=== PATIENT | female | born 1950 | race Caucasian/White ===

== ENCOUNTER 2022-09-07 18:18 | Outpatient (RCR) | payer MEDICARE, OTHER, SELFPAY | END 2022-10-01 23:59 | disposition home or self-care (01) | LOC: MM 18:18 | PROVIDERS: PCP Internal Medicine; Visit Provider Internal Medicine | DX: Z51.81 Encounter for therapeutic drug level monitoring (principal); Z79.01 Long term (current) use of anticoagulants ==

== ENCOUNTER 2022-09-29 11:39 | Outpatient (OUT) | payer MEDICARE, OTHER, SELFPAY ==
--- NOTE | 2022-09-29 11:40 | XR_ITS ---
[address] [address] Patient Name: DEYVI BROTHERS MRN: [id number] date: 1950 Sex: F Assigned Patient Location: [facility] Current Patient Location: [facility] Accession/Order Number: [id number] Exam Date: 09/29/2022 11:40 Report Date: 09/29/2022 20:27 At the request of: RAY CHERY Procedure: XR foot PHILL min 3V EXAMINATION: XR foot PHILL min 3V HISTORY: BILATERAL FOOT PAIN COMPARISON: 11/06/2020 FINDINGS: RIGHT FINDINGS: BONES: No acute fracture or dislocation. Fusion the first metatarsal-phalangeal joint with a dorsal plate and screws. Moderate diffuse degenerative change with joint space narrowing marginal osteophyte formation calcaneal enthesopathy. No mechanical failure SOFT TISSUES: Negative. No visible soft tissue swelling. OTHER: Negative. LEFT FINDINGS: BONES: No acute fracture or dislocation. First metatarsal-phalangeal joint arthroplasty with bony remodeling of the first metatarsal head. Moderate diffuse degenerative change with joint space narrowing marginal osteophyte formation calcaneal enthesopathy SOFT TISSUES: Negative. No visible soft tissue swelling. OTHER: Negative. IMPRESSION: RIGHT CONCLUSION: Moderate degenerative changes with first metatarsal-phalangeal joint fusion LEFT CONCLUSION: Moderate degenerative changes with first metatarsal-phalangeal joint arthroplasty Electronically authenticated by: VENANCIO SAUCEDO Date: 09/29/2022 20:27
== END 2022-09-29 11:40 | disposition home or self-care (01) ==
LOC: RAD 11:39
PROVIDERS: PCP Internal Medicine; Visit Provider Podiatrist Foot & Ankle Surgery
DX: M79.671 Pain in right foot (principal); M79.672 Pain in left foot
CPT/HCPCS: 73630

== ENCOUNTER 2022-10-07 09:26 | Outpatient (RCR) | payer MEDICARE, OTHER, SELFPAY | END 2022-11-01 17:04 | disposition home or self-care (01) | LOC: MM 09:26 | PROVIDERS: PCP Internal Medicine; Visit Provider Internal Medicine | DX: Z51.81 Encounter for therapeutic drug level monitoring (principal); Z79.01 Long term (current) use of anticoagulants | CPT/HCPCS: 85610; G0463 ==

== ENCOUNTER 2022-10-13 09:31 | Outpatient (OUT) | payer MEDICARE, OTHER, SELFPAY ==
--- NOTE | 2022-10-13 09:43 | ECG_ITS ---
The [facility] Test Date: 2022-10-13 Pat Name: Myla Pollack Department: Room: - Gender: Female Surg Physician Asst: : 1950 Requested By: RAY CHERY Order Number: [id number] Reading MD: KENYETTA SANCHEZ Measurements Intervals [place] Rate: 75 P: 65 [place]: 159 QRS: -17 QRSD: 87 T: 41 QT: 361 QTc: 404 Interpretive Statements SINUS RHYTHM No previous ECG available for comparison Electronically Signed On 10-14-2022 5:47:02 EDT by KENYETTA SANCHEZ
--- NOTE | 2022-10-13 10:18 | XR_ITS ---
The [address] [address] Patient Name: DEYVI BROTHERS MRN: [id number] date: 1950 Sex: F Assigned Patient Location: [facility] Current Patient Location: [facility] Accession/Order Number: [id number] Exam Date: 10/13/2022 10:52 Report Date: 10/13/2022 12:34 At the request of: DB DOHERTY Procedure: XR chest 2V EXAM: XR chest 2V HISTORY: COPD COMPARISON: None. TECHNIQUE: PA and lateral views of the chest. FINDINGS: The cardiomediastinal silhouette is normal. No focal consolidation is identified. Suggestion of COPD. There is no pneumothorax. No pleural effusion is noted. The osseous structures are intact. XR/XR chest 2V IMPRESSION: No acute cardiopulmonary process. Suggestion of COPD. Electronically authenticated by: VINH GARNETT Date: 10/13/2022 12:34
[2022-10-13 10:56] LABS: Anion Gap 8.8; BUN Creatinine Ratio 10.5; Calcium 10.1 mg/dL (8.5-10.1); Carbon Dioxide 32.3 mmol/L (21.0-32.0); Chloride 103 mmol/L (98-107); Estimated GFR (African America >60 (>=60); Estimated GFR (Non-African Ame 58 (>=60); Glucose 102 mg/dL (74-106); Potassium 4.1 mmol/L (3.5-5.1); Sodium 140 mmol/L (136-145)
== END 2022-10-13 09:32 | disposition home or self-care (01) ==
LOC: PST 09:33
PROVIDERS: PCP Family Medicine; Visit Provider Podiatrist Foot & Ankle Surgery
DX: Z01.812 Encounter for preprocedural laboratory examination (principal); Z01.810 Encounter for preprocedural cardiovascular examination; Z01.811 Encounter for preprocedural respiratory examination; M89.8X7 Other specified disorders of bone, ankle and foot; M20.41 Other hammer toe(s) (acquired), right foot; I10 Essential (primary) hypertension
CPT/HCPCS: 36415; 71046; 80048; 85610; 93005; G0463

== ENCOUNTER 2022-10-18 09:30 | Day surgery (SDC) | payer MEDICARE, OTHER, SELFPAY ==
[2022-10-13 10:10] VITALS: BP 147/92; PULSE 82; RESP 18; TEMP 36.4; O2SAT 94; BMI 30.5
[2022-10-18] VITALS (10 sets, daily range): BP systolic 123–148; BP diastolic 72–98; PULSE 60–83; RESP 15–20; TEMP 36.2–36.3; O2SAT 94–97; BMI 30.2
[2022-10-18 09:43] LABS: Basophils Percent Auto 0.3 % (0.2-2.0); Eosinophils Absolute Auto 0.1 10^3/uL (0.0-0.7); Eosinophils Percent Auto 2.1 % (0.9-7.0); Hematocrit 42.4 % (36.0-48.0); Hemoglobin 14.2 g/dL (12.0-16.0); Immature Granulocytes Abs Auto 0.01 10^3/uL (0.00-0.03); Immature Granulocytes Pct Auto 0.2 % (0.0-0.5); Lymphocytes Absolute Auto 2.3 10^3/uL (1.2-3.8); Lymphocytes Percent Auto 36.4 % (20.5-60.0); Mean Corpuscular HGB Conc 33.5 g/dL (29.9-35.2); Mean Corpuscular Hemoglobin 30.5 pg (26.7-34.0); Mean Corpuscular Volume 91.2 fL (81.0-99.0); Mean Platelet Volume 9.9 fL (9.5-13.5); Monocytes Absolute Auto 0.5 10^3/uL (0.3-0.8); Monocytes Percent Auto 8.1 % (1.7-12.0); Neutrophils Absolute Auto 3.3 10^3/uL (1.4-6.5); Neutrophils Percent Auto 52.9 % (43.0-75.0); Platelet Count 265 10^3/uL (150-450); Red Blood Count 4.65 10^6/uL (4.20-5.40); Red Cell Distribution Width 12.8 % (11.0-15.0); White Blood Count 6.2 10^3/uL (4.0-11.0)
[2022-10-18 10:13] LABS: Glucometer 100 mg/dL (74-106)
[2022-10-18] MEDS: LACTATED RINGER'S SOLUTION 1,000 ML 50 ML IV (12:37)
[2022-10-18] MEDS: CEFAZOLIN SODIUM/DEXTROSE,ISO 2 GM/50 ML PIGGYBACK IV (12:38)
--- NOTE | 2022-10-18 12:52 | P.ORON_ITS ---
Brief Operative Note Date of procedure: 10/18/22 Pre-op diagnosis: osteophyte/exostosis 1st & 2nd toe, 3rd hammertoe right foot Post-op diagnosis: same Procedure: PROCEDURE PERFORMED: Ostectomy of hallux distal phalanx and proximal interphalangeal joint 2nd toe; PIPJ arthroplasty of 3rd toe - all procedures were performed on the right foot PROCEDURES IN DETAIL: Patient was identified in pre op and consent was reviewed. Correct side and site were identified and marked. Pre-op antibiotics were started. Patient was brought to OR suite and place on table in a supine position. General anesthesia was administered. Tourniquet applied. Operative extremity was prepped and draped in usual sterile fashion. Formal time-out was performed and the foot/ankle were exsanguinated and tourniquet inflated. 1 cm incision was placed over the dorsal lateral great toe and sharp and blunt dissection was taken down to the lateral eminence of the distal phalanx. A hand rasp was used to smooth and contour the eminence removing any bony prominence. Surgical site was irrigated copiously and skin was closed in one layer. Then a 2 cm incision was placed over the proximal interphalangeal joint and a combination sharp blunt dissection gained access to the extensor tendon which was carefully reflected and kept intact. A sagittal saw was used to resect any bony prominence from the medial aspect of the joint as well as dorsal while protecting the extensor tendon and neurovascular structures. Hand rasp was used to contour the proximal and distal phalanx and surgical site was irrigated copiously. Then the incision was closed in layers. An dorsal linear incision was created over the PIPJ of 3rd toe. Extensor tendon was incised and reflected to expose the PIPJ. Periarticular ligaments were released. Sagittal saw was use to excised the head of proximal phalanx. The site was irrigated with copious amounts of sterile saline. The extensor tendon was repaired with absorbable absorbable sutures. Surgical site was then closed in layers. Tourniquet was deflated with a prompt hyperemic response and dry sterile dressing is applied. Patient tolerated procedure and anesthesia well and was transported to the recovery room with vital signs stable and brisk capillary refill to the right toes. POSTOPERATIVE PLAN: Discharge home under family's care Post op instructions provided verbally and written prescription(s) were placed in chart WBAT in surgical shoe until sutures have been removed Follow-up in 2-3 weeks Implants: none Anesthesia: HELENA Surgeon: Juice Valentino Oil Burner Technician: Pasha Plasencia Estimated blood loss (mL): 10 Pathology: none sent Condition: stable Disposition: PACU Preoperative Details Reason for procedure: patient is a 72-year-old female well known to my practice who underwent left 1st metatarsal phalangeal joint fusion 3+ years prior and has been very happy with her outcome however she has noticed increased pain and irrritation between her 1st and 2nd toes associated with enlarging bony prominence. On examination he is pretty prominences appear to be coming from the lateral condyle of the distal phalanx of the hallux as well as the medial aspect of the 2nd PIPJ. Because shoe modification and padding have not helped she recently presented to my office inquiring about surgical removal. In addition she related that the distal aspect of the 3rd toe gives her problems associated pain and rubbing his shoe. She asked if her 3rd toe could be shortened. I discussed potential risks and benefits including wound, infection, healing issues, pain, bleeding, numbness and tingling as well as recurrence. She provided consent to the suggested procedures
[2022-10-18] MEDS: BUPIVACAINE HCL 0.5% PF 50 MG/10 ML VIAL INJ (13:21)
--- NOTE | 2022-10-18 13:45 | XR_ITS ---
The [address] [address] Patient Name: DEYVI BROTHERS MRN: [id number] date: 1950 Sex: F Assigned Patient Location: [facility] Current Patient Location: Accession/Order Number: [id number] Exam Date: 10/18/2022 14:52 Report Date: 10/18/2022 15:39 At the request of: CHRISTOPHER SKAGGS Procedure: XR foot RT min 3V EXAM: XR foot RT min 3V HISTORY: postop COMPARISON: 09/29/2022 TECHNIQUE: 3 views of the right foot FINDINGS: Status post fusion of the first metatarsal-phalangeal joint with a dorsal plate and screws. There is resection of the distal third proximal performed with smooth cortex. No evidence of acute osteomyelitis or acute fracture. 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 XR/XR foot RT min 3V IMPRESSION: resection of the distal third proximal performed with smooth cortex. No evidence of acute osteomyelitis or acute fracture. Electronically authenticated by: ECHO GEORGES Date: 10/18/2022 15:39
[2022-10-18 14:03] LABS: Glucometer 96 mg/dL (74-106)
[2022-10-18] MEDS: ENOXAPARIN SODIUM 40 MG/0.4 ML SYRINGE SUBQ (15:11)
--- NOTE | 2022-10-18 15:16 | PC.NURSE ---
wound upon arival to PACU was clean dry and intact with post op boot on.
== END 2022-10-18 15:20 | disposition home or self-care (01) ==
PROVIDERS: Anesthesiology; PCP Family Medicine; Visit Provider Podiatrist Foot & Ankle Surgery
PROC: (CPT 28124; principal; 2022-10-18 10:50)
DX: M89.8X7 Other specified disorders of bone, ankle and foot (principal); M20.41 Other hammer toe(s) (acquired), right foot; I10 Essential (primary) hypertension; J44.9 Chronic obstructive pulmonary disease, unspecified; Z96.651 Presence of right artificial knee joint
CPT/HCPCS: 28124 ×2; 28285; 36415; 73630; 82948; 85025; J2704

== ENCOUNTER 2022-11-02 09:32 | Outpatient (RCR) | payer MEDICARE, OTHER, SELFPAY | END 2022-12-02 17:39 | disposition home or self-care (01) | LOC: MM 09:32 | PROVIDERS: PCP Family Medicine; Visit Provider Internal Medicine | DX: Z51.81 Encounter for therapeutic drug level monitoring (principal); Z79.01 Long term (current) use of anticoagulants | CPT/HCPCS: 85610; G0463 ==

== ENCOUNTER 2022-11-18 12:48 | Outpatient (OUT) | payer MEDICARE, OTHER, SELFPAY ==
--- NOTE | 2022-11-18 12:52 | CT_ITS ---
[address] [address] Patient Name: DEYVI BROTHERS MRN: [id number] date: 1950 Sex: F Assigned Patient Location: CT Current Patient Location: Accession/Order Number: [id number] Exam Date: 11/18/2022 13:15 Report Date: 11/19/2022 01:52 At the request of: RAY CHERY Procedure: CT foot LT wo con EXAMINATION: CT foot LT wo con HISTORY: Hallux Rigidus M20.22 COMPARISON: XR foot bilateral 09/29/2022 TECHNIQUE: Multi-planar CT images were created without and/or with IV contrast according to examination type. Dose reduction techniques were achieved by using automated exposure control and/or adjustment of mA and/or kV according to patient size and/or use of iterative reconstruction technique. FINDINGS: BONES: Prior prosthetic replacement of the proximal articular surface of the first proximal phalanx. Prior osteotomy and single screw repair of the head of the first metatarsal. Multifocal mild degenerative changes the midfoot. Degenerative enthesopathic spurring of the calcaneus. SOFT TISSUES: Mild subcutaneous edema throughout the foot. EFFUSION: None visible. OTHER: Negative. CT/CT foot LT wo con IMPRESSION: 1. Stable surgical changes of the first metatarsophalangeal joint as detailed above. 2. Multifocal mild degenerative changes and mild subcutaneous edema. Electronically authenticated by: ADIEL MCCONNELL Date: 11/19/2022 01:52
== END 2022-11-18 12:49 | disposition home or self-care (01) ==
LOC: CT 12:48
PROVIDERS: PCP Family Medicine; Visit Provider Podiatrist Foot & Ankle Surgery
DX: M20.22 Hallux rigidus, left foot (principal); M87.875 Other osteonecrosis, left foot
CPT/HCPCS: 73700

== ENCOUNTER 2022-12-03 09:03 | Outpatient (RCR) | payer MEDICARE, OTHER, SELFPAY | END 2022-12-31 16:57 | disposition home or self-care (01) | LOC: MM 09:03 | PROVIDERS: PCP Family Medicine; Visit Provider Internal Medicine | DX: Z51.81 Encounter for therapeutic drug level monitoring (principal); Z79.01 Long term (current) use of anticoagulants | CPT/HCPCS: 85610; G0463 ==

== ENCOUNTER 2023-01-03 02:50 | Outpatient (RCR) | payer MEDICARE, OTHER, SELFPAY | END 2023-02-01 17:44 | disposition home or self-care (01) | LOC: MM 02:50 | PROVIDERS: PCP Family Medicine; Visit Provider Internal Medicine | DX: Z51.81 Encounter for therapeutic drug level monitoring (principal); Z79.01 Long term (current) use of anticoagulants | CPT/HCPCS: 85610; G0463 ==

== ENCOUNTER 2023-01-15 08:43 | Outpatient (OUT) | payer MEDICARE, OTHER, SELFPAY ==
[2023-01-15 09:18] LABS: Basophils Percent Auto 0.5 % (0.2-2.0); Eosinophils Absolute Auto 0.1 10^3/uL (0.0-0.7); Eosinophils Percent Auto 1.6 % (0.9-7.0); Hematocrit 40.3 % (36.0-48.0); Hemoglobin 13.7 g/dL (12.0-16.0); Immature Granulocytes Abs Auto 0.01 10^3/uL (0.00-0.03); Immature Granulocytes Pct Auto 0.2 % (0.0-0.5); Lymphocytes Absolute Auto 2.3 10^3/uL (1.2-3.8); Lymphocytes Percent Auto 36.9 % (20.5-60.0); Mean Corpuscular Hemoglobin 31.3 pg (26.7-34.0); Mean Platelet Volume 10.4 fL (9.5-13.5); Monocytes Absolute Auto 0.4 10^3/uL (0.3-0.8); Monocytes Percent Auto 6.1 % (1.7-12.0); Neutrophils Absolute Auto 3.4 10^3/uL (1.4-6.5); Neutrophils Percent Auto 54.7 % (43.0-75.0); Platelet Count 275 10^3/uL (150-450); Red Blood Count 4.38 10^6/uL (4.20-5.40); Red Cell Distribution Width 12.7 % (11.0-15.0); White Blood Count 6.3 10^3/uL (4.0-11.0)
[2023-01-15 09:25] LABS: INR 1.93; Partial Thromboplastin Time 33.5 sec (22.3-36.2); Prothrombin Time 19.7 sec (9.0-11.6)
[2023-01-15 09:27] LABS: Bilirubin Urine NEGATIVE (NEGATIVE); Blood Urine NEGATIVE (NEGATIVE); Clarity Urine CLEAR (CLEAR); Color Urine LT. YELLOW (YELLOW); Glucose Urine UA NEGATIVE (NEGATIVE); Ketones Urine NEGATIVE (NEGATIVE); Leukocyte Esterase Urine SMALL (NEGATIVE); Nitrite Urine NEGATIVE (NEGATIVE); Protein Urine NEGATIVE (NEG/TRACE); Specific Gravity Urine 1.025 (1.005-1.025); Urobilinogen Urine 0.2 EU/dL (0.2-1.0); pH Urine 5.5 (5.0-9.0)
[2023-01-15 09:46] LABS: Anion Gap 12.8; BUN Creatinine Ratio 12.5; Calcium 9.3 mg/dL (8.5-10.1); Carbon Dioxide 29.9 mmol/L (21.0-32.0); Chloride 102 mmol/L (98-107); Estimated GFR (African America >60 (>=60); Estimated GFR (Non-African Ame >60 (>=60); Glucose 101 mg/dL (74-106); Potassium 3.7 mmol/L (3.5-5.1); Sodium 141 mmol/L (136-145)
== END 2023-01-15 08:44 | disposition home or self-care (01) ==
LOC: LAB 08:44
PROVIDERS: PCP Family Medicine; Visit Provider Podiatrist Foot & Ankle Surgery
DX: Z01.812 Encounter for preprocedural laboratory examination (principal); Z79.01 Long term (current) use of anticoagulants; M20.22 Hallux rigidus, left foot; M87.875 Other osteonecrosis, left foot; R82.89 Other abnormal findings on cytological and histological examination of urine
CPT/HCPCS: 36415; 80048; 81003; 85025; 85610; 85730; 87081; 87086; 87150; 87186

== ENCOUNTER 2023-01-18 09:48 | Outpatient (OUT) | payer MEDICARE, OTHER, SELFPAY ==
--- NOTE | 2023-01-18 10:42 | P.GSHP_ITS ---
History of Present Illness History of Present Illness Chief complaint: Hallux rigidus left foot Narrative: Patient presents for preadmission testing. The patient reports left foot pain. She states she previously had a procedure on this foot and feels that the hardware is giving her most of her pain. She states she had right foot surgery in October of this year and is doing quite well. She states her left foot pain is worse with weightbearing. She denies numbness, tingling, weakness, or any other complaints. Review of Systems ROS Narrative REVIEW OF SYSTEMS: Negative except as stated in HPI, ten or more systems reviewed. Constitutional: No fever , chills, weakness ENT: No sore throat or epistaxis Cardiovascular: No edema, chest pain, palpitations, or activity intolerance Respiratory: No shortness of breath or cough, Well-controlled asthma Gastrointestinal: No abdominal pain, constipation, diarrhea, or vomiting Genitourinary: No dysuria or hematuria Neurological: No numbness, tingling, weakness, or headache Psychiatric: No mood changes PFSH PFS Medical History (Updated 01/18/23 @ 10:58 by Sherly Carmona NP) Arthritis ?M19.90 - Unspecified osteoarthritis, unspecified site (ICD-10) Asthma ?J45.909 - Unspecified asthma, uncomplicated (ICD-10) Breast cancer ?C50.919 - Malignant neoplasm of unspecified site of unspecified female breast (ICD-10) Cataract ?H26.9 - Unspecified cataract (ICD-10) Chronic obstructive pulmonary disease ?J44.9 - Chronic obstructive pulmonary disease, unspecified (ICD-10) Hallux rigidus ?M20.20 - Hallux rigidus, unspecified foot (ICD-10) Hallux rigidus, left foot ?M20.22 - Hallux rigidus, left foot (ICD-10) Hallux valgus ?M20.10 - Hallux valgus (acquired), unspecified foot (ICD-10) Hammertoe ?M20.40 - Other hammer toe(s) (acquired), unspecified foot (ICD-10) Hammertoe of left foot ?M20.42 - Other hammer toe(s) (acquired), left foot (ICD-10) Migraine ?G43.909 - Migraine, unspecified, not intractable, without status migrainosus (ICD-10) Nasal polyp ?J33.9 - Nasal polyp, unspecified (ICD-10) Neuropathy ?G62.9 - Polyneuropathy, unspecified (ICD-10) Osteoarthritis ?M19.90 - Unspecified osteoarthritis, unspecified site (ICD-10) Other osteonecrosis, left foot ?M87.875 - Other osteonecrosis, left foot (ICD-10) Painful orthopaedic hardware ?T84.84XA - Pain due to internal orthopedic prosthetic devices, implants and grafts, initial encounter (ICD-10) Pulmonary embolism ?I26.99 - Other pulmonary embolism without acute cor pulmonale (ICD-10) Varicose vein of leg ?I83.90 - Asymptomatic varicose veins of unspecified lower extremity (ICD-10) Surgical History (Updated 10/13/22 @ 10:16 by Sherly Carmona NP) H/O mastectomy ?Z90.10 - Acquired absence of unspecified breast and nipple (ICD-10) History of arthroplasty of knee ?Z96.659 - Presence of unspecified artificial knee joint (ICD-10) History of carpal tunnel release ?Z98.890 - Other specified postprocedural states (ICD-10) History of cataract extraction ?Z98.49 - Cataract extraction status, unspecified eye (ICD-10) History of colonoscopy ?Z98.890 - Other specified postprocedural states (ICD-10) History of esophagogastroduodenoscopy (EGD) ?Z98.890 - Other specified postprocedural states (ICD-10) History of foot surgery ?Z98.890 - Other specified postprocedural states (ICD-10) History of foot surgery ?Z98.890 - Other specified postprocedural states (ICD-10) Family History (Updated 10/13/22 @ 10:16 by Sherly Carmona NP) Other Family history of diabetes mellitus Family history of heart disease Family history of hypertension Family history of myocardial infarction Family history of pancreatic cancer Social History (Updated 10/13/22 @ 10:09 by Sherly Carmona NP) Within the past year, how often did you have a drink containing alcohol: never Score interpretation: A score less than 3 is consistent with normal alcohol consumption. 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 [employer] Highest level of school completed/degree received: high school graduate Meds Home Medications and Allergies Home Medications Medication Instructions Recorded Confirmed Type acetyltyrosine 350 mg-vitamin B6 5 1 cap PO DAILY 10/13/22 01/18/23 History mg capsule albuterol sulfate 90 mcg/actuation 2 inh inhalation Q8H PRN shortness 10/13/22 01/18/23 History aerosol inhaler of breath or wheezing ascorbic acid (vitamin C) 1,000 mg 1 g PO DAILY 10/13/22 01/18/23 History capsule atorvastatin 20 mg tablet 20 mg PO QDAY 10/13/22 01/18/23 History budesonide-formoterol HFA 160 2 inh inhalation Q12H 10/13/22 01/18/23 History mcg-4.5 mcg/actuation aerosol inhaler (Symbicort) cyclosporine 0.05 % eye drops in a 1 drp ophthalmic (eye) Q12H 10/13/22 01/18/23 History dropperette (Restasis) ergotamine 1 mg-caffeine 100 mg 1 tab PO BID PRN migraine headache 10/13/22 01/18/23 History tablet fluticasone propionate 50 2 spray intranasal Q12H 10/13/22 01/18/23 History mcg/actuation nasal spray,suspension glucosamine 375 ij-ytqloausm-vyx 1 tab PO DAILY 10/13/22 01/18/23 History no1 500 mg-C 15 mg-maida 0.5 mg tablet (Lfgtouixqug-Wspdcvanbey-CJM Complex) magnesium glycinate 100 mg tablet 100 mg PO DAILY 10/13/22 01/18/23 History (Mag Glycinate) montelukast 10 mg tablet 10 mg PO .QHS 10/13/22 01/18/23 History multivitamin (Daily Multi-Vitamin 1 tab PO DAILY 10/13/22 01/18/23 History tablet) pregabalin 75 mg capsule 75 mg PO Q12H 10/13/22 01/18/23 History tiotropium bromide 2.5 2 inh inhalation Q24H 10/13/22 01/18/23 History mcg/actuation mist for inhalation (Spiriva Respimat) vitamin B complex (B 1 tab PO DAILY 10/13/22 01/18/23 History Complex-Vitamin B12 tablet) warfarin 5 mg tablet (Jantoven) 7.5 mg PO QDAY 10/13/22 01/18/23 History cefdinir 300 mg capsule 300 mg PO BID 01/18/23 01/18/23 History Allergies Allergy/AdvReac Type Severity Reaction Status Date / Time Sulfa (Sulfonamide Allergy Unknown Verified 01/18/23 10:08 Antibiotics) Exam Narrative Exam Narrative: Constitutional: Awake, alert, comfortable, well-appearing, nontoxic, interactive, vital signs as charted Head: Normocephalic, atraumatic Neck: Supple, normal appearance, normal range of motion, no meningeal signs, no lymphadenopathy Respiratory: No respiratory distress, breath sounds clear Cardiovascular: Regular rate and rhythm, strong and regular heart tones Musculoskeletal: Left foot: Tenderness overlying the 1st MPJ, limited range of motion of the 1st MPJ, contracture of the 2nd and 5th toe, Sensation intact, good capillary refill Skin: No rashes or induration, no lesions, only visible skin inspected Neuro: No neurological deficits, normal sensation Psychiatric: Oriented ?3, normal affect Assessment and Plan Assessment and Plan (1) Hallux rigidus, left foot: (2) Other osteonecrosis, left foot: (3) Hammertoe of left foot: (4) Painful orthopaedic hardware: Plan Left 1st metatarsal phalangeal joint fusion/revision with removal of hardware, bone graft as needed, correction of 2nd and 5th hammertoes, Kyara's buni onectomy, 2nd metatarsal Osteotomy, soft tissue balancing as needed scheduled with Dr. Valentino 01/24/2023.
== END 2023-01-18 09:49 | disposition home or self-care (01) ==
LOC: PST 09:49
PROVIDERS: PCP Family Medicine; Visit Provider Podiatrist Foot & Ankle Surgery
DX: Z01.818 Encounter for other preprocedural examination (principal); M20.22 Hallux rigidus, left foot; M87.875 Other osteonecrosis, left foot; Z79.01 Long term (current) use of anticoagulants
CPT/HCPCS: G0463

== ENCOUNTER 2023-01-24 06:13 | Day surgery (SDC) | payer MEDICARE, OTHER, SELFPAY ==
[2023-01-18 10:20] VITALS: BP 152/90; PULSE 97; RESP 20; TEMP 36.2; O2SAT 96; BMI 30.1
[2023-01-24] VITALS (16 sets, daily range): BP systolic 125–150; BP diastolic 68–84; PULSE 71–94; RESP 9–22; TEMP 36.2–36.3; O2SAT 91–97; BMI 29.7
--- NOTE | 2023-01-24 | FL_ITS ---
[address] [address] Patient Name: DEYVI BROTHERS MRN: [id number] date: 1950 Sex: F Assigned Patient Location: SURGOUT Current Patient Location: LAB Accession/Order Number: [id number] Exam Date: 01/24/2023 07:55 Report Date: 01/26/2023 14:48 At the request of: RAY CHERY Procedure: FL fluoroscopy <1hr NON-READ EXAM: FL fluoroscopy <1hr NON-READ HISTORY: TECHNIQUE: FINDINGS: Please see Operative Report. Electronically authenticated by: RADIOLOGIST NO Date: 01/26/2023 14:48
[2023-01-24 06:36] LABS: Glucometer 100 mg/dL (74-106)
[2023-01-24 06:38] LABS: Basophils Percent Auto 0.6 % (0.2-2.0); Eosinophils Absolute Auto 0.1 10^3/uL (0.0-0.7); Eosinophils Percent Auto 2.3 % (0.9-7.0); Hematocrit 41.3 % (36.0-48.0); Hemoglobin 13.7 g/dL (12.0-16.0); Immature Granulocytes Abs Auto 0.01 10^3/uL (0.00-0.03); Immature Granulocytes Pct Auto 0.2 % (0.0-0.5); Lymphocytes Absolute Auto 2.1 10^3/uL (1.2-3.8); Lymphocytes Percent Auto 39.8 % (20.5-60.0); Mean Corpuscular HGB Conc 33.2 g/dL (29.9-35.2); Mean Corpuscular Hemoglobin 30.8 pg (26.7-34.0); Mean Corpuscular Volume 92.8 fL (81.0-99.0); Mean Platelet Volume 10.5 fL (9.5-13.5); Monocytes Absolute Auto 0.4 10^3/uL (0.3-0.8); Monocytes Percent Auto 6.9 % (1.7-12.0); Neutrophils Absolute Auto 2.6 10^3/uL (1.4-6.5); Neutrophils Percent Auto 50.2 % (43.0-75.0); Platelet Count 271 10^3/uL (150-450); Red Blood Count 4.45 10^6/uL (4.20-5.40); Red Cell Distribution Width 12.8 % (11.0-15.0); White Blood Count 5.3 10^3/uL (4.0-11.0)
[2023-01-24 06:50] LABS: INR 1.03; Partial Thromboplastin Time 32.1 sec (22.3-36.2); Prothrombin Time 10.9 sec (9.0-11.6)
[2023-01-24] MEDS: LACTATED RINGER'S SOLUTION 1,000 ML 50 ML IV (07:07)
[2023-01-24] MEDS: CEFAZOLIN SODIUM/DEXTROSE,ISO 2 GM/50 ML PIGGYBACK IV (07:53)
--- NOTE | 2023-01-24 08:04 | PC.NURSE ---
0730: PATTIENT GIVEN 2 MG VERSED 0738 TIME OUT PERFORMED, PATIENT WAS PREPED FOR BLOCK TO BE PERFORMED ON THE LEFT KNEE. TARI LOOKING FOR POPLITEAL . PATIENT REMAINED COMFORTABLE THROUGHOUT INJECT/BLOCK. PROCEDURE ENDED AT 0758
[2023-01-24] MEDS: THROMBI-GEL SIZE 40 HEMOSTAT 1 EACH TOPICAL (09:09)
--- NOTE | 2023-01-24 10:15 | P.ORON_ITS ---
Brief Operative Note Date of procedure: 01/24/23 Pre-op diagnosis: left hallux rigidus, toe contractures 2, 3, 5, tailors bunion Post-op diagnosis: other (left hallux rigidus with pre-dislocation syndrome of the 2nd metatarsal phalangeal joint, hammertoe contractures of toes 2, 3, & 5, tailor's bunion and retained orthopedic hardware. History of pulmonary embolism) Procedure: PROCEDURE(S) PERFORMED: 1. First metarsal phalangeal joint fusion 2. Walton of distal tibial bone graft 3. tailors bunionectomy 4. Correction of hammertoe contractures of toes 2, 3, & 5 5. Removal of deep implanted orthopedic hardware 6. Stanislav osteotomy 2nd metatarsal 7. Application of short leg splint 8. Intraoperative fluoroscopy examination *All procedures were performed on the LEFT foot INTRAOPERATIVE FINDINGS: retained staple screw fixation in the 1st metatarsal head with healthy surrounding bone. The johanny-arthroplasty implant was loose and easily removed. Significant degenerative changes noted of the 1st metatarsophalangeal head with full thickness cartilage erosion. Postsurgical changes secondary to previous osteotomy of the 1st metatarsal head and neck. Bone quality was within normal limits given patient's age and gender. Rigid 2nd toe contracture predominantly at the proximal interphalangeal joint and less so at the metatarsal phalangeal joint. Reducible contractures of the 3rd and 5th toes. Lateral prominent eminence of the 5th metatarsal head was noted with inflammatory changes and synovitis of the capsule. PROCEDURE IN DETAIL: Patient was identified in pre op and consent was reviewed. Correct side and site were identified and marked. Pre-op antibiotics were started. Patient was brought to OR suite and place on table in a supine position. General anesthesia was administered. A tourniquet was applied. Operative extremity was prepped and draped in usual sterile fashion. Formal time-out was performed and the foot/ankle were exsanguinated and tourniquet inflated. Incision created over dorsal aspect of the 1st MPJ. Bleeders coagulated. EHL protected throughout the procedure. Capsulotomy performed and McGlammry elevator inserted into 1st MPJ. a single screw within the metatarsal head was identified and removed without incident. The screw hole was curetted and healthy bone was noted. Then an osteotome and hemostat were used to remove the johanny-implant from the proximal phalanx which was loose and easily removed. The hole created in the proximal phalanx on the stem was drilled and curetted. Guide Pin place in 1st metatarsal head under fluoroscopic guidance. Conical reamers used on 1st metatarsal head to remove cartilage and subchondral bone. Guide pin removed from the 1st metatarsal and then was placed into the proximal phalanx under fluoroscopic guidance.. Conical reamers used on proximal phalanx in a similar manner. 2.0 mm drill used to on each side of the joint. The site was irrigated. Distal Tibial Bone Graft: A 2 cm incision was created 2 cm proximal to the ankle joint and just medial to the tibialis anterior tendon. Combination sharp blunt dissection gained access to the distal tibial metaphysis and the periosteum was reflected carefully. An 8 mm bone harvester was drilled into the distal tibial metaphysis and 2 cc of cancellus autograft was obtained. Gelfoam was then packed into the harvest site and deep closure with absorbable suture was performed followed by closure with skin suture. trial implants were used to determine the ideal-sized implant and a small size provided the best fit and deformity correction. Bone graft was then mixed with 2 cc of sparc allograft packed into the titanium cage. the 3-D printed titanium cage implant was placed into the 1st metatarsal phalangeal joint and fluoroscopy was used to ensure proper alignment and good bone to implant contact. The implant was then pinned in placed then a 3.0 mm cannulated screw was inserted from the implant into the 1st metatarsal then an additional 3.0 mm screw was placed from the implant into the proximal phalanx while holding the great toe in a rectus/reduced position. The screws were tightened sequentially noting compression at the bone implant interface.Position was checked both on the table and under fluoroscopy. A saw was used to contour the dorsal aspect of the 1st metatarsal and proximal phalanx to accommodate plate fixation. A 3.[address] over the fusion site and temporarily fixed. Then banquet pilot holes were drilled for locking 3.5 mm screws which were measured and placed according to the manufactor's standard directions. Again position was checked under fluoroscopy as well as on the table. Temporary fixation was removed and additional screws were placed. The surgical site was irrigated with sterile saline and any remaining bone graft was impacted around the implant on its dorsal, medial and lateral aspects. This incision was then closed in layers. With attention to the 2nd digit a dorsal incision was created over the PIPJ. Sharp and blunt dissection down to the extensor tendon was performed. The tendon was incised transversely then reflected proximally. A sagittal saw was used to remove the proximal phalanx head. the tendon was then reflected proximally to expose the capsule of the 2nd metatarsal phalangeal joint which was released dorsally medial and laterally sharply. A McGlamry elevator was used to release the plantar aspect of the joint. cartilage of the 2nd metatarsophalangeal joint was intact. A sagittal saw was used to perform an osteotomy of the 2nd metatarsal head from distal to proximal parallel to the weightbearing surface. The 2nd metatarsal head retracted proximally ~3 mm which was then pinned in place then fixated with a 2.0 mm screw. The McGlamry elevator was removed and the contracture of the 2nd metatarsophalangeal joint was corrected. The site was flushed with sterile saline. With attention to the 3rd digit a dorsal incision was created over the PIPJ. Sharp and blunt dissection down to the extensor tendon was performed. The tendon was incised transversely then reflected proximally. A sagittal saw was used to remove the proximal phalanx head. there is no contracture of the metatarsophalangeal joint. The site was flushed with sterile saline. With attention to the 5th digit a semi-elliptical dorsal incision was created over the PIPJ. Sharp and blunt dissection down to the extensor tendon was performed. The tendon was incised transversely then reflected proximally. A sagittal saw was used to remove the proximal phalanx head. The site was flushed with sterile saline. The tendons of the toes 2, 3 & 5 were repaired with absorbable suture. incision was placed over the lateral aspect of the 5th metatarsal phalangeal joint and comminution sharp and blunt dissection gained access to the joint which was released sharply and further dissection allowed for full visualization of the 5th metatarsal head. A sagittal saw was used to remove the prominent lateral eminence which was then passed the back table. A rasp was used to contour the 5th metatarsal head and the surgical site was irrigated with copious saline. the tourniquet was deflated with a prompt hyperemic response. the remaining incisions were then closed in layers. A dry sterile dressing consisting of Xeroform on the incisions followed by 4 x 4 gauze, ABDs, and Kerlix were applied. Multiple layers of cast padding were then applied to ensure all bony prominences were well-padded. A plaster posterior splint was then applied which was held in place by Arnel wraps. Capillary refill time to all digits was evaluated and had appropriate response. POSTOPERATIVE PLAN: Discharge home under family's care Post op instructions provided verbally and written prescription(s) were placed in chart - restart Coumadin tonight - One dose of Lovenox was ordered to be administered prior to discharge - Lovenox and INR checks as ordered by her primary care NWB operative foot/ankle x3-6 wks Follow-up in 1 week Implants: [id number] patient specific 3d printed titanium implant for 1st metatarsal phalangeal joint Medline 3.5 mm 1st metatarsal phalangeal joint plate, 3.0 mm cannulated screws and 2.0 mm snap off screw for 2nd metatarsal Anesthesia: regional and General-LMA Surgeon: Juice Valentino Learning Disabled Teacher: Tavares Nance Estimated blood loss (mL): 25 Condition: stable Disposition: PACU Preoperative Details Reason for procedure: patient is a 72-year-old female who is well known to my practice who previously underwent right 1st metatarsal phalangeal joint fusion and has been very happy with the outcome. Prior to seeing me she underwent left 1st MPJ hemiarthroplasty with Dr. Yeager in 2016. She's related that over the last two years pain, dysfunction and deformity of her great toe has worsened. On examination she had slight hallux valgus deformity with pain of the 1st MPJ which was stiff. X-rays and CT scan revealed retained screw in the 1st metatarsal head and hemiarthroplasty in the proximal phalanx with slight lucency/loosening. In addition there postsurgical changes to the 1st metatarsal head secondary to the osteotomy was performed. Further she related to painful worsening contractures of the 2nd, 3rd and 5th toes as well as painful lateral prominence on the 5th metatarsal head. Due to failure to respond to nonsurgical treatment which included Tylenol, shoe modification and activity modification she wished to proceed with surgical intervention. Of note she is on warfarin secondary to previous pulmonary embolism. She was bridged to Lovenox by her primary care and will begin Coumadin the night after surgery.
--- NOTE | 2023-01-24 10:55 | XR_ITS ---
The [address] [address] Patient Name: DEYVI BROTHERS MRN: [id number] date: 1950 Sex: F Assigned Patient Location: [facility] Current Patient Location: Accession/Order Number: [id number] Exam Date: 01/24/2023 11:45 Report Date: 01/25/2023 06:56 At the request of: ADDY GARCIA Procedure: XR foot LT min 3V PROCEDURE: XR foot LT min 3V HISTORY: postop xr COMPARISON: Intraoperative foot radiographs 01/24/2023 FINDINGS: BONES:Mechanical fusion of the first metatarsophalangeal joint via dorsal plate and screws. Prosthetic spacer within the first metatarsophalangeal joint space. Single screw within head of second metatarsal. Resection of heads of the second third proximal phalanges. Fifth metatarsal one in ectomy. SOFT TISSUES:Images were obtained to cast material which limits evaluation. Distal dorsal soft tissue thickening/swelling. EFFUSION:None visible. OTHER: Negative. XR/XR foot LT min 3V IMPRESSION: 1. Surgical changes without appreciable hardware failure or change in alignment compared to intraoperative images. Electronically authenticated by: ADIEL MCCONNELL Date: 01/25/2023 06:56
[2023-01-24 11:42] LABS: Glucometer 93 mg/dL (74-106)
[2023-01-24] MEDS: ENOXAPARIN SODIUM 40 MG/0.4 ML SYRINGE SUBQ (12:02)
[2023-01-24] MEDS: ONDANSETRON 4 MG RAPDIS TABLET SL (12:31)
--- NOTE | 2023-01-24 12:37 | PC.NURSE ---
PATIENT IS NAUSETED GAVE ORAL ZOFRAN. CURRENTLY RESTING AT THIS TIME.
--- NOTE | 2023-01-24 13:00 | PC.NURSE ---
nausea has improved post zofran. Currently eating crackers.
--- NOTE | 2023-01-24 13:45 | PC.NURSE ---
Patient denies any pain and nausea is better. Currently eating cookies and resting
--- NOTE | 2023-01-24 14:43 | PC.NURSE ---
Patient's toes warm and pink. Denies any pain at discharge.
== END 2023-01-24 14:25 | disposition home or self-care (01) ==
PROVIDERS: Anesthesiology; PCP Family Medicine; Visit Provider Podiatrist Foot & Ankle Surgery
PROC: (CPT 20680; principal; 2023-01-24 07:30)
DX: M20.22 Hallux rigidus, left foot (principal); M87.875 Other osteonecrosis, left foot; Z79.01 Long term (current) use of anticoagulants; M19.90 Unspecified osteoarthritis, unspecified site; C50.919 Malignant neoplasm of unspecified site of unspecified female breast; J44.9 Chronic obstructive pulmonary disease, unspecified; T84.84XA Pain due to internal orthopedic prosthetic devices, implants and grafts, initial encounter; Z86.711 Personal history of pulmonary embolism; Z96.651 Presence of right artificial knee joint; Z90.11 Acquired absence of right breast and nipple; Z79.899 Other long term (current) drug therapy; M20.5X2 Other deformities of toe(s) (acquired), left foot; M20.42 Other hammer toe(s) (acquired), left foot; M25.872 Other specified joint disorders, left ankle and foot; M21.622 Bunionette of left foot
CPT/HCPCS: 20680; 20900; 28110; 28285 ×3; 28308; 28750; 36415; 64445; 73630; 76000; 76942; 82948; 85025; 85610; 85730; C1713; C1776; J2704

== ENCOUNTER 2023-02-02 00:31 | Outpatient (RCR) | payer MEDICARE, OTHER, SELFPAY | END 2023-03-03 16:27 | disposition home or self-care (01) | LOC: MM 00:31 | PROVIDERS: PCP Family Medicine; Visit Provider Internal Medicine | DX: Z51.81 Encounter for therapeutic drug level monitoring (principal); Z79.01 Long term (current) use of anticoagulants | CPT/HCPCS: 85610; G0463 ==

== ENCOUNTER 2023-02-15 10:25 | Outpatient (OUT) | payer MEDICARE, OTHER, SELFPAY ==
--- NOTE | 2023-02-15 | XR_ITS ---
The [address] [address] Patient Name: DEYVI BROTHERS MRN: [id number] date: 1950 Sex: F Assigned Patient Location: [facility] Current Patient Location: [facility] Accession/Order Number: [id number] Exam Date: 02/15/2023 10:30 Report Date: 02/15/2023 23:46 At the request of: JASON VENTURA Procedure: XR foot LT min 3V PROCEDURE: XR foot LT min 3V HISTORY: LEFT FOOT POST OP COMPARISON: XR foot left 01/24/2023 FINDINGS: BONES:Mechanical fusion of the first metatarsophalangeal joint via dorsal plate and screws and prosthetic spacer placement within the joint. Single screw within head of second metatarsal. Resection of heads of second, third, and 5th proximal phalanges. Degenerative enthesopathic spurring of the calcaneus. SOFT TISSUES:Prominent distal dorsal soft tissue swelling. Cast material has been removed. EFFUSION:None visible. OTHER: Negative. XR/XR foot LT min 3V IMPRESSION: 1. Interval removal of cast material. 2. Stable surgical changes without evidence of hardware failure or change in alignment. 3. Increased distal soft tissue swelling. Electronically authenticated by: DAIEL MCCONNELL Date: 02/15/2023 23:46
== END 2023-02-15 10:26 | disposition home or self-care (01) ==
PROVIDERS: PCP Family Medicine; Visit Provider Podiatrist Foot & Ankle Surgery
DX: M20.42 Other hammer toe(s) (acquired), left foot (principal)
CPT/HCPCS: 73630

== ENCOUNTER 2023-03-04 09:47 | Outpatient (RCR) | payer MEDICARE, OTHER, SELFPAY | END 2023-04-01 15:34 | disposition home or self-care (01) | LOC: MM 09:47 | PROVIDERS: PCP Family Medicine; Visit Provider Internal Medicine | DX: Z51.81 Encounter for therapeutic drug level monitoring (principal); Z79.01 Long term (current) use of anticoagulants | CPT/HCPCS: 85610; G0463 ==

== ENCOUNTER 2023-03-08 10:05 | Outpatient (OUT) | payer MEDICARE, OTHER, SELFPAY ==
--- NOTE | 2023-03-08 | XR_ITS ---
The [address] [address] Patient Name: DEYVI BROTHERS MRN: [id number] date: 1950 Sex: F Assigned Patient Location: [facility] Current Patient Location: Accession/Order Number: [id number] Exam Date: 03/08/2023 10:20 Report Date: 03/09/2023 01:02 At the request of: RAY CHERY Procedure: XR foot LT min 3V EXAM: XR foot LT min 3V HISTORY: LEFT FOOT PAIN COMPARISON: Left foot x-ray dated 02/15/2023. TECHNIQUE: 3 views of the left foot FINDINGS: Stable postsurgical changes are again seen with prior fusion of the first metatarsophalangeal joint. Suture anchor is also seen projecting the second metatarsal head. No significant periprosthetic lucency seen. Prior resection of the proximal phalanx head of the second, third and fifth toes is again seen. No acute fracture seen. Joint alignment is normal. Joint spaces are preserved. Posterior and plantar calcaneal spur is seen. XR/XR foot LT min 3V IMPRESSION: No acute fracture or malalignment. Stable postsurgical changes. Electronically authenticated by: NETO IBARRA Date: 03/09/2023 01:02
== END 2023-03-08 10:06 | disposition home or self-care (01) ==
LOC: RAD 10:06
PROVIDERS: PCP Family Medicine; Visit Provider Podiatrist Foot & Ankle Surgery
DX: M87.875 Other osteonecrosis, left foot (principal); M77.32 Calcaneal spur, left foot
CPT/HCPCS: 73630

== ENCOUNTER 2023-04-04 01:58 | Outpatient (RCR) | payer MEDICARE, OTHER, SELFPAY | END 2023-05-04 17:08 | disposition home or self-care (01) | LOC: MM 01:58 | PROVIDERS: PCP Family Medicine; Visit Provider Internal Medicine | DX: Z51.81 Encounter for therapeutic drug level monitoring (principal); Z79.01 Long term (current) use of anticoagulants; I26.99 Other pulmonary embolism without acute cor pulmonale | CPT/HCPCS: 85610; G0463 ==

== ENCOUNTER 2023-04-15 09:23 | Outpatient (OUT) | payer MEDICARE, OTHER, SELFPAY ==
--- NOTE | 2023-04-15 09:26 | CT_ITS ---
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 Dose reduction techniques were achieved by using automated exposure control and/or adjustment of mA and/or kV according to patient size and/or use of iterative reconstruction technique. FINDINGS: BONES: Stable spacer at the first metatarsal-phalangeal joint with dorsal fusion utilizing a plate and screws. No mechanical failure. Some bone formation is identified. Remote resection head of the second and third proximal phalanges. Remote osteotomy and screw placement at of the second metatarsal. Moderate diffuse degenerative changes with joint space narrowing marginal osteophyte formation. Focal sclerosis anterior talus possibly an enostosis. Bone graft harvesting anterior distal tibia. Moderate enthesopathic spurring of the calcaneus SOFT TISSUES: Moderate diffuse soft tissue swelling. Vascular calcifications. EFFUSION: None visible. OTHER: Negative. CT/CT foot LT wo con IMPRESSION: Stable first metatarsal-phalangeal joint fusion with bone formation Electronically authenticated by: VENANCIO SAUCEDO Date: 04/15/2023 11:57
--- OUTSIDE RECORDS SUMMARY | 2023-04-15 09:35 | XMS_ITS | CCD ---
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 Name Role Phone Demarco Hess Unavailable Unavailable Family Physician Unavailable Unavailable Hilda vailable Family Physician Unavailable Unavailable Hilda vailable DOMENICO, EMELY Unavailable Unavailable DOMENICO, EMELY Unavailable Unavailable JIA, MARIO Unavailable Unavailable JIA, MARIO Unavailable Unavailable DOMENICO, EMELY Unavailable Unavailable DOMENICO, EMELY Unavailable Unavailable JIA, MARIO Unavailable Unavailable JIA, MARIO Unavailable Unavailable DOMENICO, EMELY Unavailable Unavailable DOMENICO, EMELY Unavailable Unavailable JIA, MARIO Unavailable Unavailable JIA, MARIO Unavailable Unavailable Christian Steiner Attending Unavaila Kacie Rojas Attending Unavailable Kacie Garay Attending Unavailable MD Christian Steiner Other Provider Unavailable MD Kacie Garay Attending Provider MD Kenyetta Reynolds Primary Care Provider [phone] Kenyetta Reynolds MD Primary Care Provider [id number] Kenyetta Reynolds MD Primary Care Provider [phone] IRAM, COVARRUBIAS H Attending Unavailable FAWWAD, COVARRUBIAS H Admitting Unavailable DR KENYETTA GRAF Primary Care Unavailable FAWWAIza, COVARRUBIAS H Attending Unavailable FAWWAD, COVARRUBIAS H Admitting Unavailable DR KENYETTA GRAF Primary Care Unavailable FAWWAD, COVARRUBIAS H Attending Unavailable FAWWAD, COVARRUBIAS H Admitting Unavailable DR KENYETTA GRAF Primary Care Unavailable FAWWAIza, COVARRUBIAS H Attending Unavailable FAWWAD, COVARRUBIAS H Admitting Unavailable DR KENYETTA GRAF Primary Care Unavailable FAWWAD, COVARRUBIAS H Attending Unavailable FAWWAD, COVARRUBIAS H Admitting Unavailable HOY ., DR KUMARI Primary Care Unavailable FAWWAD, COVARRUBIAS H Attending Unavailable FAWWAD, COVARRUBIAS H Admitting Unavailable HOY ., DR KUMARI Primary Care Unavailable FAWWAD, COVARRUBIAS H Attending Unavailable FAWWAD, COVARRUBIAS H Admitting Unavailable HOY ., DR KUMARI Primary Care Unavailable FAWWAD, COVARRUBIAS H Attending Unavailable FAWWAD, COVARRUBIAS H Admitting Unavailable HOY ., DR KUMARI Primary Care Unavailable FAWWAD, COVARRUBIAS H Attending Unavailable FAWWAD, COVARRUBIAS H Admitting Unavailable HOY ., DR KUMARI Primary Care Unavailable KRISHNA ., MR DINO Admitting Unavailable HOY ., DR KUMARI Primary Care Unavailable KRISHNA ., MR DINO Consulting Unavailable KRISHNA ., MR DINO Attending Unavailable DINO GREGORY Consulting Unavailable HOY ., DR KUMARI Primary Care Unavailable HOY ., DR KUMARI Consulting Unavailable HOY ., DR KUMARI Attending Unavailable HOY ., DR KUMARI Admitting Unavailable MICHELLE ., MARGA Attending Unavailable HOY ., DR KUMARI Primary Care Unavailable JAYESH, DR ADIEL Jauregui Consulting Unavailable MICHELLE ., MARGA Admitting Unavailable MICHELLE ., MARGA Consulting Unavailable FAWWAD, COVARRUBIAS H Attending Unavailable FAWWAD, COVARRUBIAS H Admitting Unavailable HOY ., DR KUMARI Primary Care Unavailable FAWWAD, COVARRUBIAS H Attending Unavailable FAWWAD, COVARRUBIAS H Admitting Unavailable LAURA .DR KUMARI Primary Care Unavailable ALESHA SCHULTE Referring Unavailable KENYETTA REYNOLDS Primary Care Unavailable ALESHA SCHULTE Attending Unavailable KENYETTA REYNOLDS Primary Care Unavailable ALESHA SCHULTE Attending Unavailable MD Christian Steiner Other Provider [phone] MD Kacie Garay Attending Provider [phone] MD Kenyetta Reynolds Primary Care Provider [phone] Christian Steiner Consulting Unavailable Kacie Garay Admitting Unavailable Kacie Garay Attending Unavailable Kenyetta Reynolds Primary Care Unavailable Allergies Allergy Classification Reported Allergen(s) Allergy Type Date of Onset Reaction(s) Facility (4 sources) Sulfonamides (Antibiotic); 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: [SULFA (SULFONAMIDE ANTIBIOTICS)] Drug Allergy 02-22-2019 Unknown [facility] (1 source) Sulfonamides (Antibiotic) Drug allergy (disorder) 10-08-2014 [facility] (1 source) Sulfonamides (Antibiotic) Drug allergy (disorder) 01-21-2023 [facility] Medications Current Medications Medication Drug Class(es) Dates Sig (Normalized) Sig (Original) acetaminophen 325 mg / butalbital 50 mg / caffeine 40 mg oral tablet (3 sources) Barbiturate, Central Nervous System Stimulant, Methylxanthine End: 01-17-2023 acetaminophen 325 mg-caffeine 40 mg-butalbital 50 mg (FIORICET) per tablet butalbital-acetami nophen-caffeine 50 mg-325 mg-40 mg tablet 0 01/17/2023 Discontinued Comment on above: butalbital-acetamino phen-caffeine 50 mg-325 mg-40 mg tablet albuterol 0.83 mg/ml inhalation solution (7 sources) beta2-Adrenergic Agonist Start: 01-05-2017 End: 01-17-2023 albuterol (PROVENTIL) 2.5 mg/3 mL nebulizer solution Albuterol Sulfate Active 1 PUFF INHALATION Q6H January 05, 2017 12:00am 0 01/05/2017 01/17/2023 Discontinued Start: 01-05-2017 take 1 puff(s) by in halation every six hours Albuterol Sulfate Active 1 PUFF INHALATION Q6H January 05, 2017 12:00am albuterol HFA (P ROAIR HFA) 90 mcg/actuation inhaler ProAir HFA 90 mcg/actuation aerosol inhaler 0 Active Comment on above: ProAir HFA 90 mcg/ac tuation aerosol inhaler Albuterol Sulfate Ac tive 1 PUFF INHALATION Q6H January 05, 2017 12:00am ascorbic acid 500 mg oral tablet (5 sources) Vitamin C Start: 01-05-2017 take 1 tablet by mouth once daily Ascorbic Acid (Vitamin C) (Vitamin C) 500 mg Tablet Active 500 MG PO Daily January 05, 2017 12:00am Ascorbic Acid (V ITAMIN C) 100 mg tablet Vitamin C 1 tab daily 0 Active Comment on above: Vitamin C 1 tab daily atorvastatin 20 mg oral tablet (5 sources) HMG-CoA Reductase Inhibitor Start: 9 take 20 mg by mouth once daily Atorvastatin Active 20 MG PO Daily March 12, 2020 1:00am Comment on above: TAKE 1 TABLET BY TIERA TH ONE TIME A DAY benoxinate hydrochloride 4 mg/ml / fluorescein sodium 3 mg/ml ophthalmic solution (2 sources) Diagnostic Dye Start: 3 End: 3 fluorescein-benoxinat e 0.3-0.4 % drop 1 Drop Start: 07-05-2022 End: 07-05-2022 fluorescein-benoxinate 0.25- 0.4 % 1 Drop (FLURESS) biotin 1 mg oral tablet (5 sources) Start: 02-28-2017 take 1 mg by mouth once daily Biotin Active 1 MG PO Daily February 28, 2017 1:00am biotin 1 mg cap biotin 1 tab daily 0 Active Comment on above: biotin 1 tab daily Budesonide-Formote rol (5 sources) Corticosteroid, beta2-Adrenergic Agonist Start: 01-05-2017 take 1 puff(s) by inhalation once daily Budesonide-Formotero l (Symbicort) 80-4.5 mcg/actuation Hfa Aerosol Inhaler Active 2 PUFF INHALATION Daily January 05, 2017 12:00am budesonide-formo terol (SYMBICORT) 160-4.5 mcg/actuation inhaler Symbicort 160 mcg-4.5 mcg/actuation HFA aerosol inhaler 0 Active Comment on above: Symbicort 160 mcg-4. 5 mcg/actuation HFA aerosol inhaler cholecalciferol 0.025 mg oral capsule (5 sources) Vitamin D Start: 019 take 1 capsule by mouth once daily Cholecalciferol (Vitamin D3) (Vitamin D3) 1,000 unit Capsule Active 1000 UNIT PO Daily July 19, 2018 12:00am Comment on above: Cholecalciferol Chol ecalciferol (Vitamin D3) Active 1000 UNIT Oral Daily July 19, 2018 10:42am 07-19-2018 [facility] ([id number]) fluticasone propionate 0.05 mg/actuat metered dose nasal spray (5 sources) Corticosteroid Start: 017 Fluticasone Propionate Active 2 SPRAYS INTRANASAL Daily January 05, 2017 12:00am fluticasone (BIJU NASE) 50 mcg/actuation nasal spray fluticasone propionate 50 mcg/actuation nasal spray,suspension 0 Active Comment on above: fluticasone propiona te 50 mcg/actuation nasal spray,suspension linseed oil 1000 mg oral capsule (5 sources) Start: take 1000 mg by mouth twice daily Flaxseed Oil Active 1000 MG PO Twice daily March 25, 2017 1:00am Comment on above: Linseed Oil Flaxseed Oil Active 1000 MG Oral Twice daily March 25, 2017 10:57am 03-25-2017 [facility] ([id number]) magnesium oxide 250 mg oral tablet (5 sources) Start: take 250 mg by mouth once daily Magnesium Oxide Active 250 MG PO Daily January 05, 2017 12:00am Comment on above: Magnesium Oxide Magn esium Oxide Active 250 MG Oral Daily January 05, 2017 3:53pm 01-05-2017 [facility] ([id number]) montelukast 10 mg oral tablet (5 sources) Leukotriene Receptor Antagonist Start: take 10 mg by mouth once daily Montelukast Active 10 MG PO Daily January 05, 2017 12:00am Comment on above: TAKE 1 TABLET BY TIERA TH EVERY DAY IN THE EVENING Multivitamin (Multiple Vitamin) Tablet (2 sources) Start: take 1 tablet by mouth once daily Multivitamin (Multiple Vitamin) Tablet Active 1 TAB PO Daily January 21, 2022 12:00am phenylephrine hydrochloride 25 mg/ml ophthalmic solution (1 source) alpha-1 Adrenergic Agonist Start: End: PHENYLephrine 2.5 % 1 Drop (AK-DILATE, KRYSTYNA-SYNEPHRINE) pregabalin 75 mg oral capsule (14 sources) Start: End: take 1 capsule by mouth twice daily Pregabalin (Lyrica) 75 mg Capsule Active 75 MG PO Twice daily 90 August 26, 2022 1:49pm Comment on above: Lyrica 75 mg capsule 60 actuat tiotropium 0.0025 mg/actuat inhalation spray (5 sources) Anticholinergic Start: take 1 puff(s) by inhalation every twenty-four hours Tiotropium [place] (Spiriva Respimat) 2.5 mcg/actuation Mist Active 2 PUFF INHALATION Q24H January 05, 2017 12:00am tiotropium (SPIR EUNICE RESPIMAT) 2.5 mcg/actuation inhaler Spiriva Respimat 2.5 mcg/actuation solution for inhalation 0 Active Comment on above: Spiriva Respimat 2.5 mcg/actuation solution for inhalation tropicamide 10 mg/ml ophthalmic solution (1 source) Anticholinergic Start: 07-06-19 End: 07-06-19 tropicamide 1 % 1 Drop (MYDRIACYL) vitamin b12 1 mg extended release oral tablet (2 sources) Vitamin B12 Start: 01-22-20 take 1 tablet by mouth once daily Cyanocobalamin (Vitamin B-12) (Vitamin B-12) 1,000 mcg Tablet Extended Release Active 1000 MCG PO Daily January 21, 2022 12:00am vitamin b6 100 mg oral tablet (2 sources) Start: 01-22-20 take 1 tablet by mouth once daily Pyridoxine (Vitamin B6) (Vitamin B-6) 100 mg Tablet Active 100 MG PO Daily January 21, 2022 12:00am warfarin sodium 7.5 mg oral tablet (5 sources) Vitamin K Antagonist Start: 03-16-20 Warfarin Active 7.5 - 10 MG PO As Directed March 16, 2017 1:00am Dosing per [facility]:M W F 5 mg rest of week 7.5mg warfarin (COUMAD IN) 5 mg tablet warfarin 5 mg tablet Take by oral route. 0 Active Comment on above: warfarin 5 mg tablet Take by oral route. Completed/Discontinued Medications Medication Drug Class(es) Dates Sig (Normalized) Sig (Original) anastrozole 1 mg oral tablet (20 sources) Aromatase Inhibitor Start: 01-05-2017 End: 07-05-2022 take 1 mg by mouth once daily Anastrozole Discontinued 1 MG PO Daily June 04, 2019 11:47am July 21, 2020 9:35am Comment on above: anastrozole 1 mg tab let apixaban 5 mg oral tablet (2 sources) Factor Xa Inhibitor Start: 01-12-2017 End: 03-16-2017 take 2 tablets by mouth twice daily, then take 1 tablet by mouth twice daily Apixaban (Eliquis) 5 mg Tablet Discontinued 1 TAB PO Twice daily 74 January 12, 2017 12:00am March 16, 2017 3:02pm take 10 mg by mouth twice daily for 7 days; then 5 mg twice daily CHONDROITIN SULFATE A ORAL (5 sources) CHONDROITIN SULFATE A ORAL once daily. 0 Active take 1 tablet by mouth once shaheen y CHONDROITIN SULFATE A ORAL Chondroitin Sulfate 1 tab daily 0 Active Comment on above: Chondroitin Sulfate 1 tab daily once daily. colchicine 0.6 mg oral tablet (2 sources) Start: End: take 0.6 mg by mouth once daily Colchicine (Gout) Discontinued 0.6 MG PO Daily February 28, 2017 1:00am January 17, 2018 3:32pm cycloSPORINE 0.5 mg/ml ophthalmic suspension (3 sources) Calcineurin Inhibitor Immunosuppressant cycloSPORINE (RESTASIS) 0.05 % ophthalmic emulsion Restasis 0.05 % eye drops in a dropperette 0 Active Comment on above: Restasis 0.05 % eye drops in a dropperette esomeprazole 40 mg delayed release oral capsule (4 sources) Proton Pump Inhibitor Start: End: take 40 mg by mouth once daily Esomeprazole Magnesium Discontinued 40 MG PO Daily 90 March 02, 2018 4:50pm January 21, 2022 10:03am furosemide 40 mg oral tablet (2 sources) Loop Diuretic End: furosemide (LASIX) 40 mg tablet furosemide 40 mg tablet 0 07/05/2022 Discontinued Comment on above: furosemide 40 mg tab let gluc kong/chondro kong A/vit C/Mn (GLUCOSAMINE 1500 COMPLEX ORAL) (3 sources) gluc kong/chondro kong A/vit C/Mn (GLUCOSAMINE 1500 COMPLEX ORAL) Glucosamine 1500 Complex 1 TAB DAILY 0 Active Comment on above: Glucosamine 1500 Com plex 1 TAB DAILY latanoprost 0.05 mg/ml ophthalmic solution (2 sources) Prostaglandin Analog Start: End: take 1 drop(s) into the eye(s) once daily at bedtime latanoprost (XALATAN) 0.005 % ophthalmic solution Use 1 Drop in both eyes daily at bedtime. 1 Bottle 0 02/22/2019 07/05/2022 Discontinued Comment on above: Use 1 Drop in both e yes daily at bedtime. Magnesium (3 sources) take 1 mg by mouth every twenty-four hours Magnesium 250 mg tab 1 mg q 24 HR. 0 Active Comment on above: 1 mg q 24 HR. MULTI-VITAMIN ORAL (3 sources) take 1 tablet by mouth once daily MULTI-VITAMIN ORAL Multi Vitamin 1 tab daily 0 Active Comment on above: Multi Vitamin 1 tab daily multivitamin (MULTIPLE VITAMINS) tablet (2 sources) Start: multivitamin (MULTIPLE VITAMINS) tablet Multivitamin (Multiple Vitamin) Tablet Active 1 TAB PO Daily January 21, 2022 12:00am 0 01/21/2022 Active Comment on above: Multivitamin (Multip le Vitamin) Tablet Active 1 TAB PO Daily January 21, 2022 12:00am potassium chloride 10 meq extended release oral capsule (2 sources) End: potassium chloride SR (MICRO-K) 10 mEq CR capsule potassium chloride ER 10 mEq capsule,extended release 0 07/05/2022 Discontinued Comment on above: potassium chloride E R 10 mEq capsule,extended release pravastatin sodium 40 mg oral tablet (2 sources) HMG-CoA Reductase Inhibitor Start: End: take 40 mg by mouth once daily Pravastatin Discontinued 40 MG PO Daily January 05, 2017 12:00am March 12, 2020 10:46am prednisoLONE acetate 10 mg/ml ophthalmic suspension (2 sources) Corticosteroid Start: End: prednisoLONE acetate (PRED FORTE) 1 % ophthalmic suspension 1 drop in the operative eye 4 times daily for 10 days after surgery, then taper as directed. 1 Bottle 1 02/27/2019 07/05/2022 Discontinued Comment on above: 1 drop in the operat renetta eye 4 times daily for 10 days after surgery, then taper as directed. rivaroxaban 20 mg oral tablet (10 sources) Factor Xa Inhibitor Start: End: take 1 tablet by mouth twice daily Rivaroxaban (Xarelto) 15 mg Tablet Discontinued 15 MG PO Twice daily January 05, 2017 12:00am February 03, 2017 8:08am Start: 01-04-2017 End: 01-05-2017 Rivaroxaban (Xarelto) 10 mg Tablet Discontinued 15 MG PO Twice daily January 04, 2017 12:00am January 05, 2017 3:43pm administer with meals Start: 01-04-2017 End: 03-16-2017 take 1 tablet by mouth once daily Rivaroxaban (Xarelto) 20 mg Tablet Discontinued 20 MG PO Daily January 24, 2017 12:00am February 03, 2017 8:09am Start after completing BID dosing spironolactone 25 mg oral tablet (4 sources) Aldosterone Antagonist Start: 01-05-2017 End: 07-05-2022 take 25 mg by mouth twice daily Spironolactone Discontinued 25 MG PO Twice daily January 05, 2017 12:00am January 21, 2022 10:03am Comment on above: spironolactone 25 mg tablet Vitamin B Complex (3 sources) take 1 tablet by mouth once daily vitamin B complex (B COMPLEX 1 ORAL) B Complex-Vitamin B12 1 tab daily 0 Active Comment on above: B Complex-Vitamin B1 2 1 tab daily Problems Active Problems Problem Classification Problem Date Documented Da te Episodic/Chronic Acquired foot deformities (2 sources) Acquired hammer toe of left foot; 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: [Other hammer toe(s) (acquired), left foot] Onset: 9 07-05-2022 Chronic Cancer of breast (8 sources) Malignant tumor of breast ; 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: [Malignant neoplasm of unspecified site of right female breast] Onset: 3 01-18-2018 Chronic Cataract (6 sources) After-cataract of bilateral eyes; 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: [Other secondary cataract, bilateral] Onset: 0 09-18-2019 Chronic Chronic obstructive pulmonary disease and bronchiectasis (4 sources) Chronic obstructive lung disease; 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: [Chronic obstructive pulmonary disease, unspecified] Onset: 3 02-27-2019 Chronic Disorders of lipid metabolism (7 sources) Mixed hyperlipidemia; 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: [Mixed hyperlipidemia] Onset: 3 07-05-2022 Chronic Fracture of upper limb (4 sources) Other fractures of lower end of right radius, subsequent encounter for closed fracture with routine healing; 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: [OTH FX LOW RT RADUS SUB CLOS FX RTN] Onset: 3 Episodic Glaucoma (5 sources) Primary open angle glaucoma; 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: [Primary open-angle glaucoma, bilateral, mild stage] Onset: 9 02-22-2019 Chronic Osteoarthritis (4 sources) Bilateral osteoarthritis of knees; 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: [Bilateral primary osteoarthritis of knee] 03-12-2020 Chronic Other aftercare (4 sources) Drug therapy finding; 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: [Encounter for therapeutic drug level monitoring] Onset: 9 01-22-2019 Episodic Other aftercare (7 sources) Encounter for therapeutic drug level monitoring; 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: [Encounter for therapeutic drug monitoring] Onset: 3 01-21-2022 Episodic Other aftercare (1 source) skilled nursing (current) use of anticoagulants; 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: [ACUTE DIALYSIS REGISTERED NURSE CURRNT USE ANTICOAGULANTS] Onset: 3 Episodic Other circulatory disease (6 sources) Vasculitis; 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: [Arteritis, unspecified] Onset: 3 07-21-2017 Chronic Other circulatory disease (3 sources) Arteritis, unspecified; 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: [Arteritis, unspecified] Onset: 3 01-21-2022 Chronic Other inflammatory condition of skin (2 sources) Cutaneous leukocytoclastic angiitis; 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: [Other vasculitis limited to the skin] 07-19-2018 Episodic Other inflammatory condition of skin (2 sources) Other vasculitis limited to the skin; 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: [Other specified hypersensitivity angiitis] 01-21-2022 Episodic Other lower respiratory disease (2 sources) Multiple nodules of lung; 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: [Other nonspecific abnormal finding of lung field] 03-25-2017 Episodic Other lower respiratory disease (2 sources) Other nonspecific abnormal finding of lung field; 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: [Other nonspecific abnormal finding of lung field] 01-21-2022 Episodic Other nervous system disorders (2 sources) Neuropathy; 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: [Polyneuropathy, unspecified] 01-21-2021 Chronic Other nervous system disorders (2 sources) Polyneuropathy, unspecified; 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: [Mononeuritis of unspecified site] 01-21-2022 Chronic Other nutritional; endocrine; and metabolic disorders (2 sources) Hypercalcemia; 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: [Hypercalcemia] 03-25-2017 Chronic Other nutritional; endocrine; and metabolic disorders (2 sources) Hypercalcemia; 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: [Hypercalcemia] 01-21-2022 Chronic Other nutritional; endocrine; and metabolic disorders (2 sources) H/O: metabolic disorder; 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: [Personal history of other endocrine, nutritional and metabolic disease] 07-19-2018 Episodic Other nutritional; endocrine; and metabolic disorders (2 sources) Personal history of other endocrine, nutritional and metabolic disease; 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: [Personal history of other endocrine, metabolic, and immunity disorders] 01-21-2022 Episodic Other screening for suspected conditions (not mental disorders or infectious disease) (8 sources) Patient encounter status; 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: [Encounter for screening for osteoporosis] Onset: 3 07-19-2018 Episodic Peripheral and visceral atherosclerosis (2 sources) Peripheral vascular disease; 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: [Peripheral vascular disease, unspecified] Onset: 9 07-05-2022 Chronic Phlebitis; thrombophlebitis and thromboembolism (1 source) Chronic embolism and thrombosis of unspecified deep veins of unspecified lower extremity; 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: [CHR EMB THROMB UNS DP VN UNS LW EXT] Onset: 2 Chronic Pulmonary heart disease (8 sources) Pulmonary embolism; 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: [Other pulmonary embolism without acute cor pulmonale] Onset: 3 02-03-2017 Episodic Unclassified (1 source) Unknown / UNK(Unknown) Onset: 7 Unclassified (1 source) Malignant neoplasm of central portion of right female breast; 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: [Malignant neoplasm of central portion of right female breast] Onset: 3 Past or Other Problems Problem Classification Problem Date Documented Da te Episodic/Chronic Blindness and vision defects (3 sources) Bilateral hyperopia of eyes; 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: [Hypermetropia, bilateral] Onset: 02-22-2019 02-22-2019 Episodic Cardiac dysrhythmias (3 sources) Palpitations; 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: [Palpitations] Onset: 04-29-2022 07-05-2022 Episodic Deficiency and other anemia (2 sources) Anemia; 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: [Anemia, unspecified] Onset: 04-29-2022 07-05-2022 Episodic Deficiency and other anemia (2 sources) Iron deficiency anemia; 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: [Iron deficiency anemia, unspecified] Onset: 01-21-2022 07-05-2022 Episodic Deficiency and other anemia (1 source) Anemia, unspecified; 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: [ANEMIA UNSPECIFIED] Onset: 04-29-2022 Episodic Diabetes mellitus without complication (3 sources) Abnormal glucose level; 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: [Other abnormal glucose] Onset: 04-29-2022 07-05-2022 Episodic E Codes: Fall (3 sources) Fall on same level from slipping, tripping or stumbling ; 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: [Fall on same level from slipping, tripping and stumbling without subsequent striking against object, initial encounter] Onset: 03-22-2022 07-05-2022 Episodic E Codes: Natural/environment (2 sources) Exposure to other specified factors, initial encounter; 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: [Unspecified accident] Onset: 01-28-2017 07-05-2022 Episodic Other aftercare (2 sources) Long-term current use of anticoagulant; 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: [lobsterman (current) use of anticoagulants] Onset: 02-02-2019 07-05-2022 Episodic Other aftercare (2 sources) Long-term current use of drug therapy; 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: [Other intermediate accountant (current) drug therapy] Onset: 03-22-2022 07-05-2022 Episodic Other aftercare (1 source) Other prison (current) drug therapy; 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: [OTH ACUTE DIALYSIS REGISTERED NURSE CURRENT DRUG THERAPY] Onset: 03-22-2022 Episodic Other circulatory disease (2 sources) Elevated blood-pressure reading without diagnosis of hypertension; 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: [Elevated blood-pressure reading, without diagnosis of hypertension] Onset: 04-29-2022 07-05-2022 Episodic Other circulatory disease (1 source) Elevated blood-pressure reading, without diagnosis of hypertension; 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: [ELEVATED BP READING W/O DX HTN] Onset: 04-29-2022 Episodic Other connective tissue disease (2 sources) Pain in left foot; 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: [Pain in left foot] Onset: 11-07-2018 07-05-2022 Episodic Other connective tissue disease (2 sources) Pain in right foot; 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: [Pain in right foot] Onset: 02-07-2019 07-05-2022 Episodic Other diseases of veins and lymphatics (2 sources) Peripheral venous insufficiency; 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: [Venous insufficiency (chronic) (peripheral)] Onset: 08-27-2021 07-05-2022 Episodic Other eye disorders (3 sources) Epithelial basement membrane dystrophy; 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)] Onset: 02-22-2019 02-22-2019 Episodic Other inflammatory condition of skin (4 sources) Vasculitis limited to the skin, unspecified; 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: [VASCULITIS LIMITED TO THE SKIN, UNSPECIFIED] Onset: 02-10-2017 Episodic Other non-traumatic joint disorders (2 sources) Impingement of right ankle joint; 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: [Other specified joint disorders, right ankle and foot] Onset: 01-03-2019 07-05-2022 Episodic Other non-traumatic joint disorders (3 sources) Pain of right wrist; 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: [Pain in right wrist] Onset: 03-19-2022 07-05-2022 Episodic Other non-traumatic joint disorders (2 sources) Pain in right wrist; 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: [PAIN IN RIGHT WRIST] Onset: 03-22-2022 Episodic Other nutritional; endocrine; and metabolic disorders (2 sources) H/O: Disorder; 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: [Personal history of other endocrine, nutritional and metabolic disease] Onset: 07-05-2022 07-05-2022 Episodic Phlebitis; thrombophlebitis and thromboembolism (7 sources) Embolism from thrombosis of vein of lower extremity ; 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: [Acute embolism and thrombosis of unspecified deep veins of unspecified lower extremity] Onset: 02-02-2019 07-05-2022 Episodic Residual codes; unclassified (2 sources) Acquired absence of breast; 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] Onset: 01-03-2019 07-05-2022 Episodic Residual codes; unclassified (2 sources) Localized edema; 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: [Localized edema] Onset: 09-03-2021 07-05-2022 Episodic Sprains and strains (3 sources) Sprain of right wrist; 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: [Unspecified sprain of right wrist, initial encounter] Onset: 03-22-2022 07-05-2022 Episodic Superficial injury; contusion (3 sources) Right wrist contusion; 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: [Contusion of right wrist, initial encounter] Onset: 03-22-2022 07-05-2022 Episodic Unclassified (1 source) [facility] [employer]INTE[employer]NCE 56882 Z00.00 Onset: 01-28-2017 Results Test Name Value Interpretation Reference Range Facil ity MM screening mammo LT w/CADo n 01-20-2023 MM screening mammo LT w/CAD [facility] [place] [address] Mammography Report Signed Patient: Myla Brothers MR#: [id number] : 1950 Acct:[id number] Age/Sex: 72 / F ADM Date: 01/20/23 Loc: XT Room: Type: [facility] Attending Dr: Kacie Garay MD Copies to: MD Kenyetta Degroot MD Hammad M Rashid, MD Lindsay L Damschroder, APRN Ordering Provider: Claire Duran APRN Date of Service: 01/20/23 MM/MM screening mammo LT w/CAD: screening; history of right breast cancer CLINICAL DATA: Screening for malignancy. Prior right mastectomy for carcinoma LEFT SCREENING MAMMOGRAMS - FULL FIELD DIGITAL WITH TOMOSYNTHESIS AND CAD Tomosynthesis craniocaudal and mediolateral oblique views of of the left breast were obtained using low-dose digital technique. Comparison is made to prior studies from January 15, 2020 through January 18, 2022. This examination was reviewed with the aid of CAD. There are scattered fibroglandular densities. Benign and vascular calcifications are seen. There are no developing masses, typically malignant calcifications or architectural distortion. There has been no significant interval change. MM/MM screening mammo LT w/CAD IMPRESSION: NO MAMMOGRAPHIC EVIDENCE OF MALIGNANCY. ROUTINE FOLLOW-UP IS RECOMMENDED IN ONE YEAR. RESULT CODE: 2 Benign Findings(s) DENSITY CODE: 2 (approximately 25-50% glandular) FOLLOW UP: 1YR The false-negative rate of mammography is approximately 10-percent. Management of a palpable abnormality must be based on clinical grounds. Patient was entered into a reminder system with a target due date for the next mammogram. Impression dictated by: Luciana Busby M.D.01/20/2023 1:16 PM Dictation Location: [facility] Transcribed By: [facility] 01/20/23 1316 Dictated By: Luciana Busby MD 01/20/23 1310 Signed By: 01/20/23 1316 [facility] MRI WRIST RT WO CONon 2022 MRI WRIST RT WO CON EXAM: MRI WRIST RT WO CON HISTORY: Closed fracture of distal end of radius right wrist pain status post fall with fracture March 2022. Pain with twisting motion. Attention to ulnar styloid. COMPARISON: Right wrist x-rays 03/19/2022. TECHNIQUE: Multiplanar multisequence MRI of the right wrist was performed without contrast. This included axial T2, axial PD fat-sat, axial STIR, coronal T1, coronal STIR, sagittal STIR, sagittal PD fat-sat imaging.. FINDINGS: TFCC: There is slight ulnar positive variance with severe attenuation of the central disc of the TFCC (series 5001, image 9). As visualized, no full-thickness TFCC tear identified. Mild increased fluid in the distal radioulnar joint. OSSEOUS STRUCTURES/JOINTS: Transverse fracture of the distal radial metaphysis with slight dorsal cortical impaction is seen with subtle adjacent bone marrow and soft tissue edema. Distal ulna appears intact. There is mild patchy bone marrow contusion or stress response involving the triquetral bone and to lesser extent the lunate bone. Small radial carpal joint effusion. Scaphoid bone is intact. Mild marginal spur at the thumb CMC and triscaphe joints. INTRINSIC LIGAMENTS: The dorsal band, membranous component and volar band of the scapholunate ligament is intact. As seen, lunotriquetral ligament is grossly preserved. TENDONS: The flexor and extensor tendons appear intact. The ECU tendon is slightly medially subluxated at the level of the fibro-osseous groove which could be related to subsheath injury. Mild adjacent soft tissue edema. No tenosynovitis is seen. NERVES: Visualized course of the median and ulnar nerves appear unremarkable. SOFT TISSUES: No sizable ganglion about the wrist is seen. Soft tissue swelling and edema particularly along the dorsum of the wrist. IMPRESSION: 1. Subacute transverse fracture of the distal radial metaphysis with slight dorsal impaction. Distal ulna is intact. 2. Patchy bone marrow edema like signal involving the lunate and triquetral bones may be bone marrow contusion or stress response. 3. Attenuation of the central disc of the TFCC without full-thickness tear. 4. Soft tissue swelling and edema particularly along the dorsum of the wrist. 5. Slight medial subluxation of the ECU tendon from the fibro-osseous groove may correlate with subsheath injury. No tendon tear. No tenosynovitis. 6. No acute ligamentous injury. Electronically authenticated by: DINO GREGORY Date: 2022-06-20 13:14 Normal [facility] INSULINon 04-29-2022 Insulin 15.6 uIU/mL Normal 2.6-24.9 [facility] Comment on above: Performed By: #### I NSULIN #### [facility] [address] [place] [address] Dr. Marizol Macedo CBC AUTO DIFFon 04-28-2022 BASO # 0.0 103/ul Normal 0.0-0.1 [facility] Comment on above: Performed By: #### C BC #### [facility] [address] [place] [address] Dr. Marizol Macedo Basophils/100 WBC (Bld) 0.3 % Normal 0.2-2.0 [facility] Comment on above: Performed By: #### C BC #### [facility] [address] [place] [address] Dr. Marizol Macedo EO # 0.1 103/ul Normal 0.0-0.7 [facility] Comment on above: Performed By: #### C BC #### [facility] [address] [place] [address] Dr. Marizol Macedo Eosinophils/100 WBC (Bld) 1.0 % Normal 0.9-7.0 [facility] Comment on above: Performed By: #### C BC #### [facility] [address] [place] [address] Dr. Marizol Macedo Erythrocyte distribution width (RBC) [Ratio] 12.6 % Normal 11.0-15.0 [facility] Comment on above: Performed By: #### C BC #### [facility] [address] [place] [address] Dr. Marizol Macedo Hematocrit (Bld) [Volume fraction] 43.4 % Normal 36.0-48.0 [facility] Comment on above: Performed By: #### C BC #### [facility] [address] [place] [address] Dr. Marizol Macedo Hemoglobin (Bld) [Mass/Vol] 14.1 g/dL Normal 12.0-16.0 [facility] Comment on above: Performed By: #### C BC #### [facility] [address] [place] [address] Dr. Marizol Macedo IG # 0.02 10e3/ul Normal 0.00-0.03 [facility] Comment on above: Performed By: #### C BC #### [facility] [address] [place] [address] Dr. Marizol Macedo IG % 0.3 % Normal 0.0-0.5 [facility] Comment on above: Performed By: #### C BC #### [facility] [address] [place] [address] Dr. Marizol Macedo LYMPH # 2.4 103/ul Normal 1.2-3.8 [facility] Comment on above: Performed By: #### C BC #### [facility] [address] [place] [address] Dr. Marizol Macedo Lymphocytes/100 WBC (Bld) 30.9 % Normal 20.5-60.0 [facility] Comment on above: Performed By: #### C BC #### [facility] [address] [place] [address] Dr. Marizol Macedo MANUAL DIFF REQ NO Normal [facility] Comment on above: Performed By: #### C BC #### [facility] [address] [place] [address] Dr. Marizol Macedo MCH (RBC) [Entitic mass] 30.7 pg Normal 26.7-34.0 [facility] Comment on above: Performed By: #### C BC #### [facility] [address] [place] [address] Dr. Marizol Macedo MCHC (RBC) [Mass/Vol] 32.5 g/dL Normal 29.9-35.2 [facility] Comment on above: Performed By: #### C BC #### [facility] [address] [place] [address] Dr. Marizol Macedo MCV (RBC) [Entitic vol] 94.3 fL Normal 81.0-99.0 [facility] Comment on above: Performed By: #### C BC #### [facility] [address] [place] [address] Dr. Marizol Macedo MONO # 0.4 103/ul Normal 0.3-0.8 [facility] Comment on above: Performed By: #### C BC #### [facility] [address] [place] [address] Dr. Marizol Macedo Monocytes/100 WBC (Bld) 5.4 % Normal 1.7-12.0 [facility] Comment on above: Performed By: #### C BC #### [facility] [address] [place] [address] Dr. Marizol Macedo NEUT # 4.9 103/ul Normal 1.4-6.5 [facility] Comment on above: Performed By: #### C BC #### [facility] [address] [place] [address] Dr. Marizol Macedo Neutrophils/100 WBC (Bld) 62.1 % Normal 43.0-75.0 [facility] Comment on above: Performed By: #### C BC #### [facility] [address] [place] [address] Dr. Marizol Macedo Platelet mean volume (Bld) [Entitic vol] 10.2 fL Normal 9.5-13.5 [facility] Comment on above: Performed By: #### C BC #### [facility] [address] [place] [address] Dr. Marizol Macedo PLT 279 103/ul Normal 150-450 [facility] Comment on above: Performed By: #### C BC #### [facility] [address] [place] [address] Dr. Marizol Macedo RBC 4.60 106/ul Normal 4.20-5.40 [facility] Comment on above: Performed By: #### C BC #### [facility] [address] [place] [address] Dr. Marizol Macedo WBC 7.8 103/ul Normal 4.0-11.0 [facility] Comment on above: Performed By: #### C BC #### [facility] [address] [place] [address] Dr. Marizol Macedo FREE THYROXINE INDEX T7on FTI 3.50 Normal 1.30-4.50 [facility] Comment on above: Performed By: #### L IPID, T7, CMP, TSH #### [facility] [address] [place] [address] Dr. Marizol Macedo T3U 35.0 % Normal 30.0-39.0 [facility] Comment on above: Performed By: #### L IPID, T7, CMP, TSH #### [facility] [address] [address] [address] Marizol Macedo T4 [Mass/Vol] 10.00 ug/dL Normal 4.80-13.90 [facility] Comment on above: Performed By: #### L IPID, T7, CMP, TSH #### [facility] [address] [address] [address] Marizol Macedo GLYCOHEMOGLOBIN A1Con 2022 ADA RECOMMENDATION SEE BELOW Normal [facility] Comment on above: Result Comment: ADA RECOMMENDED LIMIT 4.0 - 6.0 ADA THERAPEUTIC TARGET < 7.0 ACTION SUGGESTED > 7.0 Performed By: #### A 1C #### [facility] [address] [place] [address] Dr. Marizol Macedo Glucose [Mass/Vol] 114 mg/dL Normal [facility] Comment on above: Performed By: #### A 1C #### [facility] [address] [place] [address] Dr. Marizol Macedo HbA1c (Bld) [Mass fraction] 5.6 % Normal 4.5-6.2 [facility] Comment on above: Performed By: #### A 1C #### [facility] [address] [place] [address] Dr. Marizol Macedo IRONon 04-28-2022 Iron [Mass/Vol] 136.0 ug/dL Normal 50.0-170.0 [facility] Comment on above: Performed By: #### I CECELIA #### [facility] [address] [place] [address] Dr. aMrizol Macedo LIPID PROFILEon 04-28-2022 CHOL-HDL RATIO NORM SEE BELOW Normal [facility] Comment on above: Result Comment: 3.3 - 4.4 LOW RISK 4.4 - 7.1 AVERAGE RISK 7.1 - 11.0 MODERATE RISK >11.0 HIGH RISK Performed By: #### L IPID, T7, CMP, TSH #### [facility] [address] [place] [address] Dr. Marizol Macedo Cholesterol [Mass/Vol] 134 mg/dL Normal <=200 [facility] Comment on above: Performed By: #### L IPID, T7, CMP, TSH #### [facility] [address] [address] [address] Marizol Macedo Cholesterol in HDL [Mass/Vol] 69 mg/dL Critically high 40-60 [facility] Comment on above: Performed By: #### L IPID, T7, CMP, TSH #### [facility] [address] [address] [address] Marizol Macedo Cholesterol in LDL [Mass/Vol] 46.6 mg/dL Normal [facility] Comment on above: Performed By: #### L IPID, T7, CMP, TSH #### [facility] [address] [address] [address] Marizol Macedo Cholesterol.total/Cho lesterol in HDL [Mass ratio] 1.9 {ratio} Normal [facility] Comment on above: Performed By: #### L IPID, T7, CMP, TSH #### [facility] [address] [address] [address] Marizol Macedo HDL NORMAL > or = 60 mg/dl - LOW CARDIOVASCULAR RISK <40 mg/dl - HIGH CARDIOVASCULAR RISK Normal [facility] Comment on above: Performed By: #### L IPID, T7, CMP, TSH #### [facility] [address] [address] [address] Marizol Macedo LDL CALC NORMAL SEE BELOW Normal [facility] Comment on above: Result Comment: <100 mg/dl OPTIMAL 100 - 129 mg/dl NEAR OR ABOVE OPTIMAL 130 - 159 mg/dl BORDERLINE HIGH 160 - 189 mg/dl HIGH >190 mg/dl VERY HIGH Performed By: #### L IPID, T7, CMP, TSH #### [facility] [address] [address] [address] Marizol Macedo Triglyceride [Mass/Vol] 92 mg/dL Normal <=150 [facility] Comment on above: Performed By: #### L IPID, T7, CMP, TSH #### [facility] [address] [address] [address] Marizol Macedo VLDL CALC 18.4 mg/dL Normal [facility] Comment on above: Performed By: #### L IPID, T7, CMP, TSH #### [facility] [address] [address] [address] Marizol Macedo PROF 14(COMP METB)on 023 Albumin [Mass/Vol] 3.9 g/dL Normal 3.4-5.0 [facility] Comment on above: Performed By: #### L IPID, T7, CMP, TSH #### [facility] [address] [place] [address] Dr. Marizol Macedo Albumin/Globulin [Mass ratio] 1.1 {ratio} Normal [facility] Comment on above: Performed By: #### L IPID, T7, CMP, TSH #### [facility] [address] [place] [address] Dr. Marizol Macedo ALP [Catalytic activity/Vol] 97 U/L Normal 46-116 [facility] Comment on above: Performed By: #### L IPID, T7, CMP, TSH #### [facility] [address] [place] [address] Dr. Marizol Macedo ALT [Catalytic activity/Vol] 57 U/L Normal 14-59 [facility] Comment on above: Performed By: #### L IPID, T7, CMP, TSH #### [facility] [address] [address] [address] Marizol Macedo Anion gap [Moles/Vol] 11.9 mmol/L Normal [facility] Comment on above: Performed By: #### L IPID, T7, CMP, TSH #### [facility] [address] [place] [address] Dr. Marizol Macedo AST [Catalytic activity/Vol] 35 U/L Normal 15-37 [facility] Comment on above: Performed By: #### L IPID, T7, CMP, TSH #### [facility] [address] [place] [address] Dr. Marizol Macedo Bilirubin [Mass/Vol] 0.6 mg/dL Normal 0.2-1.0 [facility] Comment on above: Performed By: #### L IPID, T7, CMP, TSH #### [facility] [address] [address] [address] Marizol Macedo Calcium [Mass/Vol] 9.8 mg/dL Normal 8.5-10.1 [facility] Comment on above: Performed By: #### L IPID, T7, CMP, TSH #### [facility] [address] [address] [address] Marizol Macedo Chloride [Moles/Vol] 103 mmol/L Normal 98-107 [facility] Comment on above: Performed By: #### L IPID, T7, CMP, TSH #### [facility] [address] [place] [address] Dr. Marizol Macedo CO2 [Moles/Vol] 28.0 mmol/L Normal 21.0-32.0 [facility] Comment on above: Performed By: #### L IPID, T7, CMP, TSH #### [facility] [address] [place] [address] Dr. Marizol Macedo Creatinine [Mass/Vol] 0.75 mg/dL Normal 0.55-1.02 [facility] Comment on above: Performed By: #### L IPID, T7, CMP, TSH #### [facility] [address] [place] [address] Dr. Marizol Macedo EGFR-AF CENTRAL AFRICAN >60 Normal >=60 [facility] Comment on above: Performed By: #### L IPID, T7, CMP, TSH #### [facility] [address] [place] [address] Dr. Marizol Macedo EGFR-NON AF CENTRAL AFRICAN >60 Normal >=60 [facility] Comment on above: Performed By: #### L IPID, T7, CMP, TSH #### [facility] [address] [place] [address] Dr. Marizol Macedo Globulin (S) [Mass/Vol] 3.5 g/dL Normal [facility] Comment on above: Performed By: #### L IPID, T7, CMP, TSH #### [facility] [address] [place] [address] Dr. Marizol Macedo Glucose [Mass/Vol] 91 mg/dL Normal 74-106 [facility] Comment on above: Performed By: #### L IPID, T7, CMP, TSH #### [facility] [address] [address] [address] Marizol Macedo Potassium [Moles/Vol] 3.9 mmol/L Normal 3.5-5.1 [facility] Comment on above: Performed By: #### L IPID, T7, CMP, TSH #### [facility] [address] [place] [address] Dr. Marizol Macedo Protein [Mass/Vol] 7.4 g/dL Normal 6.4-8.2 [facility] Comment on above: Performed By: #### L IPID, T7, CMP, TSH #### [facility] [address] [place] [address] Dr. Marizol Macedo Sodium [Moles/Vol] 139 mmol/L Normal 136-145 [facility] Comment on above: Performed By: #### L IPID, T7, CMP, TSH #### [facility] [address] [place] [address] Dr. Marizol Macedo Urea nitrogen [Mass/Vol] 13.0 mg/dL Normal 7.0-18.0 [facility] Comment on above: Performed By: #### L IPID, T7, CMP, TSH #### [facility] [address] [place] [address] Dr. Marizol Macedo Urea nitrogen/Creatinine [Mass ratio] 17.3 mg/mg Normal [facility] Comment on above: Performed By: #### L IPID, T7, CMP, TSH #### [facility] [address] [place] [address] Dr. Marizol Macedo TSHon 04-28-2022 TSH 1.306 uIU/mL Normal 0.358-3.740 [facility] Comment on above: Performed By: #### L IPID, T7, CMP, TSH #### [facility] [address] [place] [address] Dr. Marizol Watson 03-09-2022 CNPN Telephone (OPHTLN) ---- MYLA BROTHERS ([id number]) 1950 F Date Time Provider Department 03/09/22 ALESHA SCHULTE During your visit today, we recorded the following information about you: Nida Kath 03/09/2022 1:00 PM Signed Called patient and LVM to schedule an appointment with Dr. Schulte for GLC suspect. Nida Kath 03/11/2022 9:39 AM Signed *SECOND ATTEMT* Called patient and LVM for her to call back and schedule an appt with for glaucoma suspect. Referral from Dr. Sebastian. Allergies As of Date: 03/09/2022 Noted Allergy Reaction SULFA (SULFONAMIDE ANTIBIOTICS) 02/22/2019 16 - Unknown Date Reviewed: 09/18/2019 Reviewed by: Haley Saul V - Fully Assessed Reason for Visit: Appointment [186] Prescriptions as of 03/11/2022 - Magnesium Oxide 250 mg magnesium tab Magnesium Oxide Magnesium Oxide Active 250 MG Oral Daily January 05, 2017 3:53pm 01-05-2017 [facility] ([id number]) - Flaxseed Oil 1,000 mg cap Linseed Oil Flaxseed Oil Active 1000 MG Oral Twice daily March 25, 2017 10:57am 03-25-2017 [facility] ([id number]) - Cholecalciferol, Vitamin D3, 25 mcg (1,000 unit) cap Cholecalciferol Cholecalciferol (Vitamin D3) Active 1000 UNIT Oral Daily July 19, 2018 10:42am 07-19-2018 [facility] ([id number]) - prednisoLONE acetate (PRED FORTE) 1 % ophthalmic suspension 1 drop in the operative eye 4 times daily for 10 days after surgery, then taper as directed. - albuterol HFA (PROAIR HFA) 90 mcg/actuation inhaler ProAir HFA 90 mcg/actuation aerosol inhaler - anastrozole (ARIMIDEX) 1 mg tablet anastrozole 1 mg tablet - atorvastatin (LIPITOR) 20 mg tablet TAKE 1 TABLET BY MOUTH ONE TIME A DAY - budesonide-formoter ol (SYMBICORT) 160-4.5 mcg/actuation inhaler Symbicort 160 mcg-4.5 mcg/actuation HFA aerosol inhaler - acetaminophen 325 mg-caffeine 40 mg-butalbital 50 mg (FIORICET) per tablet butalbital-acetamin ophen-caffeine 50 mg-325 mg-40 mg tablet - fluticasone (FLONASE) 50 mcg/actuation nasal spray fluticasone propionate 50 mcg/actuation nasal spray,suspension - furosemide (LASIX) 40 mg tablet furosemide 40 mg tablet - montelukast (SINGULAIR) 10 mg tablet TAKE 1 TABLET BY MOUTH EVERY DAY IN THE EVENING - potassium chloride SR (MICRO-K) 10 mEq CR capsule potassium chloride ER 10 mEq capsule,extended release - pregabalin (LYRICA) 75 mg capsule Lyrica 75 mg capsule - spironolactone (ALDACTONE) 25 mg tablet spironolactone 25 mg tablet - tiotropium (SPIRIVA RESPIMAT) 2.5 mcg/actuation inhaler Spiriva Respimat 2.5 mcg/actuation solution for inhalation - warfarin (COUMADIN) 5 mg tablet warfarin 5 mg tablet Take by oral route. - Ascorbic Acid (VITAMIN C) 100 mg tablet Vitamin C 1 tab daily - cycloSPORINE (RESTASIS) 0.05 % ophthalmic emulsion Restasis 0.05 % eye drops in a dropperette - MULTI-VITAMIN ORAL Multi Vitamin 1 tab daily - Magnesium 250 mg tab 1 mg q 24 HR. - gluc kong/chondro kong A/vit C/Mn (GLUCOSAMINE 1500 COMPLEX ORAL) Glucosamine 1500 Complex 1 TAB DAILY - CHONDROITIN SULFATE A ORAL Chondroitin Sulfate 1 tab daily - biotin 1 mg cap biotin 1 tab daily - vitamin B complex (B COMPLEX 1 ORAL) B Complex-Vitamin B12 1 tab daily - latanoprost (XALATAN) 0.005 % ophthalmic solution Use 1 Drop in both eyes daily at bedtime. 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 Breast cancer ([facility]) [C50.919] COPD (chronic obstructive pulmonary disease) (H* Pulmonary embolism (HCC) [I26.99] PCO (posterior capsular opacification), bilater*09/18/2019 Pseudophakia of both eyes [Z96.1] 09/18/2019 Encounter Status:Closed by NIDA STOCKTON on 03/11/22 Normal [facility] CBC W/DIFFon 09-28-2017 ABS BASOPHILS 0.0 10*3/uL Normal 0.0-0.2 [facility] Comment on above: Performed By: #### 4 180, [id number] ####[facility].[address] ABS IMM GRANS 0.0 10*3/uL Normal 0.0-0.2 [facility] Comment on above: Performed By: #### 4 180, [id number] ####[facility] [facility].[address] ABS NEUTROPHILS 2.8 10*3/uL Normal 1.6-7.6 [facility] Comment on above: Performed By: #### 4 180, [id number] ####[facility]3000 [facility].[address] Basophils Auto #/vol (Bld) 0.5 % Normal 0.0-1.0 [facility] Comment on above: Performed By: #### 4 180, 57584 ####[facility]3000 [facility].[address] Eosinophils Auto #/vol (Bld) 0.1 10*3/uL Normal 0.0-0.5 [facility] Comment on above: Performed By: #### 4 180, 61812 ####[facility]3000 [facility].[address] Eosinophils/100 WBC Auto (Bld) 2.3 % Normal 0.0-6.0 The [facility] Comment on above: Performed By: #### 4 180, 02296 ####[facility]3000 [facility].[address] Erythrocyte distribution width Auto Ratio (RBC) 12.9 % Normal 11.5-15.0 The [facility] Comment on above: Performed By: #### 4 1801, 84928 ####[facility]3000 [facility].[address] Hematocrit Auto Volume Fraction (Bld) 42.9 % Normal 36.0-45.0 The [facility] Comment on above: Performed By: #### 4 1801, 15591 ####[place] [address] [facility].[address] Hemoglobin mass conc (Bld) 14.1 g/dL Normal 12.0-15.0 The [facility] Comment on above: Performed By: #### 4 1801, 19483 ####[place] [address] [facility].[address] IMMATURE GRANS 0.3 % Normal 0.0-1.0 The [facility] Comment on above: Performed By: #### 4 1801, 34967 ####[place] [address] [facility].[address] Lymphocytes Auto #/vol (Bld) 2.4 10*3/uL Normal 1.2-4.0 The [facility] Comment on above: Performed By: #### 4 180, 22898 ####[facility]3000 [facility].[address] Lymphocytes/100 WBC Auto (Bld) 39.5 % Normal 20.0-45.0 [facility] Comment on above: Performed By: #### 4 180, 60609 ####[facility] [facility] MCH Auto Entitic mass (RBC) 30.3 pg Normal 27.0-33.0 [facility] Comment on above: Performed By: #### 4 180, 89242 ####[facility] [facility] MCHC Auto mass conc (RBC) 32.9 g/dL Normal 32.0-35.0 [facility] Comment on above: Performed By: #### 4 1801, 39180 ####[facility] [facility] MCV Auto Entitic volume (RBC) 92.3 fL Normal 82.0-98.0 [facility] Comment on above: Performed By: #### 4 1801, 51061 ####[facility] [facility] Monocytes Auto #/vol (Bld) 0.7 10*3/uL Normal 0.1-1.0 The [facility] Comment on above: Performed By: #### 4 1801, 80778 ####[facility]3000 [facility].[address] MONOS 11.2 % Normal 5.0-12.0 The [facility] Comment on above: Performed By: #### 4 1801, 06073 ####[facility]3000 [facility].[address] Neutrophils/100 WBC Auto (Bld) 46.2 % Normal 40.0-72.0 The [facility] Comment on above: Performed By: #### 4 180, 03588 ####[facility] Nucleated RBC/100 WBC Ratio (Bld) 0 % Normal 0-0 The [facility] Comment on above: Performed By: #### 4 180, 52770 ####[facility]3000 [facility] [place] [address], [facility] PLAT CNT 263 10*3/uL Normal 150-400 The [facility] Comment on above: Performed By: #### 4 180, 28274 ####[facility]3000 [facility] [place] [address], [facility] RBC Auto #/vol (Bld) 4.65 10*6/uL Normal 3.80-5.00 Th e [facility] Comment on above: Performed By: #### 4 1801, 82388 ####[facility]3000 [facility] [address], [facility] WBC Auto #/vol (Bld) 6.07 10*3/uL Normal 4.00-10.60 Th e [facility] Comment on above: Performed By: #### 4 1801, 56477 ####[facility]3000 [facility].[address] COMP METABOLIC PANELon 09-28 Albumin mass conc 4.1 g/dL Normal 3.5-5.7 [facility] Comment on above: Performed By: #### 4 1801, 42347 ####[facility]3000 [facility] [address], [facility] ALKALINE PHOSPH 73 IU/L Normal 34-104 The [facility] Comment on above: Performed By: #### 4 1801, 75332 ####[facility]3000 [facility].[address] ALT enzyme act/vol 54 U/L High 7-52 The [facility] Comment on above: Performed By: #### 4 1801, 74193 ####[facility] [place] [address], [facility] AST enzyme act/vol 40 U/L High 13-39 The [facility] Comment on above: Performed By: #### 4 180, 41811 ####[facility] [place] [address], [place] Bilirubin mass conc 0.4 mg/dL Normal 0.3-1.0 [facility] Comment on above: Performed By: #### 4 180, 51410 ####[facility] [place] [address], [place] Calcium mass conc 9.7 mg/dL Normal 8.6-10.3 [facility] Comment on above: Performed By: #### 4 180, 95473 ####[facility] [place] [address], [place] Chloride molar conc 103 mmol/L Normal 98-107 [facility] Comment on above: Performed By: #### 4 180, 11534 ####[facility] [place] [address], [place] CO2 molar conc 28 mmol/L Normal 21-31 The [facility] Comment on above: Performed By: #### 4 180, 72335 ####[facility] [place] [address], [place] Creatinine mass conc 0.81 mg/dL Normal 0.60-1.20 [facility] Comment on above: Performed By: #### 4 180, 05311 ####[facility] [place] [address], [place] GFR/1.73 sq M predicted among blacks MDRD vol rate/area (S/P/Bld) mL/min/{1.73_m2} Normal >60 The [facility] Comment on above: Performed By: #### 4 180, 91287 ####[facility] [place] [address], [place] GFR/1.73 sq M predicted among non-blacks MDRD vol rate/area (S/P/Bld) mL/min/{1.73_m2} Normal >60 The [facility] Comment on above: Performed By: #### 4 180, 93704 ####[facility] [place] [address], [place] Glucose mass conc 95 mg/dL Normal 70-100 The [facility] Comment on above: Performed By: #### 4 180, 46848 ####[facility] [place] [address], [place] Potassium molar conc 4.4 mmol/L Normal 3.5-5.1 The [facility] Comment on above: Performed By: #### 4 180, 59217 ####[facility] [place] [address], [facility] Protein mass conc 7.2 g/dL Normal 6.0-8.3 The [facility] Comment on above: Performed By: #### 4 180, 78576 ####[facility] [place] [address], [facility] Sodium molar conc 139 mmol/L Normal 136-145 The [facility] Comment on above: Performed By: #### 4 180, 68054 ####[facility] [place] [address], [place] Urea nitrogen mass conc 19 mg/dL Normal 7-25 The [facility] Comment on above: Performed By: #### 4 180, 34279 ####[facility] [place] [address], [place] Glucose Glucometer (BldC) [M ass/Vol]on 08-17-2017 Glucose [Mass/Vol] 99 mg/dL [facility] Comment on above: Random Glucose Refer ence Range is dependent on time and content of last meal. Glucose of more than 200 mg/dL in a nonstressed, ambulatory subject supports the diagnosis of Diabetes Mellitus. CBC W/DIFFon 03-31-2017 Basophils Auto #/vol (Bld) 0.3 % Normal 0.0-2.0 The [facility] Comment on above: Performed By: #### 4 180, 82445 ####[facility] [place] [address], [facility] Eosinophils/100 WBC Auto (Bld) 2.1 % Normal 0.0-5.0 The [facility] Comment on above: Performed By: #### 4 180, 67696 ####[facility] Erythrocyte distribution width Auto Ratio (RBC) 13.0 % Normal 11.5-16.9 The [facility] Comment on above: Performed By: #### 4 180, 63051 ####[facility] [facility] Hematocrit Auto Volume Fraction (Bld) 42.6 % Normal 36.0-48.0 The [facility] Comment on above: Performed By: #### 4 180, 19603 ####[facility]3000 [facility].[address] Hemoglobin mass conc (Bld) 14.3 g/dL Normal 12.0-15.0 The [facility] Comment on above: Performed By: #### 4 180, 26733 ####[facility] Lymphocytes/100 WBC Auto (Bld) 29.7 % Normal 20.0-40.0 The [facility] Comment on above: Performed By: #### 4 180, 54226 ####[facility] MCH Auto Entitic mass (RBC) 30.7 pg Normal 24.0-32.0 The [facility] Comment on above: Performed By: #### 4 180, 10128 ####[facility] MCHC Auto mass conc (RBC) 33.7 g/dL Normal 32.0-36.0 [facility] Comment on above: Performed By: #### 4 180, 84447 ####[facility] MCV Auto Entitic volume (RBC) 91.2 fL Normal 80.0-100.0 The [facility] Comment on above: Performed By: #### 4 180, 37821 ####[facility] METHOD Normal RBC Morphology Normal The [facility] Comment on above: Performed By: #### 4 180, 97452 ####[facility] MONOS 6.4 % Normal 2-8 The [facility] Comment on above: Performed By: #### 4 180, 56263 ####[facility] Neutrophils/100 WBC Auto (Bld) 61.5 % Normal 50-70 The [facility] Comment on above: Performed By: #### 4 180, 44719 ####[facility] [place] [address], [facility] PLAT CNT 261 Thou/mm3 Normal 100-400 The [facility] Comment on above: Performed By: #### 4 180, 38506 ####[facility] RBC Auto #/vol (Bld) 4.67 mill/mm3 Normal 3.50-5.50 T he [facility] Comment on above: Performed By: #### 4 180, 70675 ####[facility] WBC Auto #/vol (Bld) 6.6 Thou/mm3 Normal 4.0-10.0 Th e [facility] Comment on above: Performed By: #### 4 180, 17990 ####[facility] [place] [address], [facility] COMP METABOLIC PANELon 03-31 Albumin mass conc 4.0 g/dL Normal 3.5-5.7 The [facility] Comment on above: Performed By: #### 4 180, 20790 ####[facility] [place] [address], [facility] ALKALINE PHOSPH 73 IU/L Normal 34-104 [facility] Comment on above: Performed By: #### 4 180, 50849 ####[facility] [place] [address], [facility] ALT enzyme act/vol 49 U/L Normal 7-52 The [facility] Comment on above: Performed By: #### 4 1801, 05976 ####[facility] [place] [address], [facility] AST enzyme act/vol 34 U/L Normal 13-39 The [facility] Comment on above: Performed By: #### 4 180, 86101 ####[facility] [place] [address], [facility] Bilirubin mass conc 0.3 mg/dL Normal 0.3-1.0 [facility] Comment on above: Performed By: #### 4 180, 18358 ####[facility] [place] [address], [facility] Calcium mass conc 10.0 mg/dL Normal 8.6-10.3 The [facility] Comment on above: Performed By: #### 4 180, 30228 ####[facility] [place] [address], [place] Chloride molar conc 103 mmol/L Normal 98-107 [facility] Comment on above: Performed By: #### 4 180, 60177 ####[facility] [place] [address], [place] CO2 molar conc 29 mmol/L Normal 21-31 The [facility] Comment on above: Performed By: #### 4 180, 67111 ####[facility] [place] [address], [place] Creatinine mass conc 0.86 mg/dL Normal 0.60-1.20 The [facility] Comment on above: Performed By: #### 4 180, 07825 ####[facility] [place] [address], [place] GFR/1.73 sq M predicted among blacks MDRD vol rate/area (S/P/Bld) mL/min/{1.73_m2} Normal >60 The [facility] Comment on above: Performed By: #### 4 180, 50077 ####[facility] [place] [address], [place] GFR/1.73 sq M predicted among non-blacks MDRD vol rate/area (S/P/Bld) mL/min/{1.73_m2} Normal >60 The [facility] Comment on above: Performed By: #### 4 180, 23010 ####[facility] [place] [address], [place] Glucose mass conc 86 mg/dL Normal 70-100 The [facility] Comment on above: Performed By: #### 4 180, 53413 ####[facility] [place] [address], [place] Potassium molar conc 4.1 mmol/L Normal 3.5-5.1 The [facility] Comment on above: Performed By: #### 4 1802, 11786 ####[facility]3000 [facility].[address] Protein mass conc 7.0 g/dL Normal 6.0-8.3 The [facility] Comment on above: Performed By: #### 4 1802, 00239 ####[facility]3000 [facility].[address] Sodium molar conc 138 mmol/L Normal 136-145 The [facility] Comment on above: Performed By: #### 4 1802, 71521 ####[facility] Urea nitrogen mass conc 14 mg/dL Normal 7-25 The [facility] Comment on above: Performed By: #### 4 1802, 76234 ####[facility] ANAon 02-10-2017 HELENE SCREEN <1:40 Normal <1:40,1:40 The [facility] Comment on above: Performed By: #### 1 0008 ####[facility] ANCA IGG WITH REFLEX [id number] on 02-10-2017 ANCA <1:20 Normal <1:20 The [facility] Comment on above: Result Comment: The ANCA IFA is <1:20; therefore, no further testing willbe performed.INTERPRETIVE INFORMATION: Anti-Neutrophil Cyto Ab, IgGNeutrophil Cytoplasmic Antibodies (C-ANCA = granularcytoplasmic staining, P-ANCA = perinuclear staining) arefound in the serum of over 90 percent of patients withcertain necrotizing systemic vasculitides, and usually inless than 5 percent of patients with collagen vasculardisease or arthritis.Performed by [employer],[address] [place] [id number] [email or web address], Onel Connelly MD - Lab. Director ANTI DNAon 02-10-2017 ANTI DNA <1:10 Normal <1:10 The [facility] Comment on above: Performed By: #### 1 0008 ####[facility] [facility] [place] [address], [facility] ANTI-BETA 2 GLYCOPROTEIN 1on 02-10-2017 ANTI B2GP1 IGA 9.3 a units Normal 0.0-19.9 The [facility] Comment on above: Performed By: #### 1 0008 ####[facility] [place] [address], [facility] ANTI B2GP1 IGG 1.1 g units Normal 0.0-19.9 The [facility] Comment on above: Performed By: #### 1 0008 ####[facility] [facility] [address], [facility] ANTI B2GP1 IGM 2.5 m units Normal 0.0-19.9 The [facility] Comment on above: Performed By: #### 1 0008 ####[facility] [facility] [place] [address], [facility] ANTI-ENAon 02-10-2017 ANTI SM Negative Normal NEG,NEGATIVE,Ne g The [facility] Comment on above: Performed By: #### 1 0008 ####[facility] [facility] [place] [address], [facility] ANTI SM/ANTIRNP Negative Normal NEG,NEGATIVE ,Ne g The [facility] Comment on above: Performed By: #### 1 0008 ####[facility] [facility] [address], [place] ANTICARDIOLIPIN ANTIBODYon 1 04-12-2016 CARDIOLIPIN IGA 4.9 APL Normal 0.0-21.9 The [facility] Comment on above: Performed By: #### 1 0008 ####[facility] [facility] [place] [address], [facility] CARDIOLIPIN IGG 14.5 GPL Normal 0.0-22.9 The [facility] Comment on above: Performed By: #### 1 0008 ####[facility]3000 [facility].[address] CARDIOLIPIN IGM 9.5 MPL Normal 0.0-10.9 The [facility] Comment on above: Performed By: #### 1 0008 ####[facility] CBC W/DIFFon 02-10-2017 Basophils Auto #/vol (Bld) 0.4 % Normal 0.0-2.0 The [facility] Comment on above: Performed By: #### 5 3 ####[facility] Eosinophils/100 WBC Auto (Bld) 2.5 % Normal 0.0-5.0 The [facility] Comment on above: Performed By: #### 5 0103 ####[facility] Erythrocyte distribution width Auto Ratio (RBC) 14.5 % Normal 11.5-16.9 The [facility] Comment on above: Performed By: #### 5 3 ####[facility] Hematocrit Auto Volume Fraction (Bld) 41.0 % Normal 36.0-48.0 The [facility] Comment on above: Performed By: #### 5 0103 ####[facility] Hemoglobin mass conc (Bld) 13.6 g/dL Normal 12.0-15.0 The [facility] Comment on above: Performed By: #### 5 3 ####[facility] Lymphocytes/100 WBC Auto (Bld) 26.7 % Normal 20.0-40.0 The [facility] Comment on above: Performed By: #### 5 0103 ####[facility] MCH Auto Entitic mass (RBC) 30.5 pg Normal 24.0-32.0 The [facility] Comment on above: Performed By: #### 5 0103 ####[facility] MCHC Auto mass conc (RBC) 33.2 g/dL Normal 32.0-36.0 The [facility] Comment on above: Performed By: #### 5 0103 ####[facility] MCV Auto Entitic volume (RBC) 91.8 fL Normal 80.0-100.0 The [facility] Comment on above: Performed By: #### 5 0103 ####[facility] METHOD Normal RBC Morphology Normal The [facility] Comment on above: Performed By: #### 5 0103 ####[facility] MONOS 6.6 % Normal 2-8 The [facility] Comment on above: Performed By: #### 5 0103 ####[facility] Neutrophils/100 WBC Auto (Bld) 63.8 % Normal 50-70 The [facility] Comment on above: Performed By: #### 5 0103 ####[facility] [place] [address], [facility] PLAT CNT 310 Thou/mm3 Normal 100-400 The [facility] Comment on above: Performed By: #### 5 0103 ####[facility] [facility] [address], [facility] RBC Auto #/vol (Bld) 4.47 mill/mm3 Normal 3.50-5.50 T he [facility] Comment on above: Performed By: #### 102 ####[facility] [facility] [address], [facility] WBC Auto #/vol (Bld) 7.6 Thou/mm3 Normal 4.0-10.0 Th e [facility] Comment on above: Performed By: #### 102 ####[facility]3000 [facility].[address] COMP METABOLIC PANELon 02-10 Albumin mass conc 4.3 g/dL Normal 3.5-5.7 The [facility] Comment on above: Performed By: #### 0 0121 ####[facility]3000 [facility].[address] ALKALINE PHOSPH 89 IU/L Normal 34-104 [facility] Comment on above: Performed By: #### 0 0121 ####[facility]3000 [facility].[address] ALT enzyme act/vol 35 U/L Normal 7-52 [facility] on [facility]: Performed By: #### 0 0121 ####[facility]3000 [facility].[address] AST enzyme act/vol 27 U/L Normal 13-39 [facility] Comment on above: Performed By: #### 0 0121 ####[facility]3000 [facility].[address] Bilirubin mass conc 0.4 mg/dL Normal 0.3-1.0 The [facility] Comment on above: Performed By: #### 0 0121 ####[facility] [place] [address], [facility] Calcium mass conc 9.9 mg/dL Normal 8.6-10.3 The [facility] Comment on above: Performed By: #### 0 0121 ####[facility] [place] [address], [place] Chloride molar conc 102 mmol/L Normal [facility] Comment on above: Performed By: #### 0 0121 ####[facility] [place] [address], [place] CO2 molar conc 25 mmol/L Normal 21-31 [facility] Comment on above: Performed By: #### 0 0121 ####[facility] [place] [address], [facility] Creatinine mass conc 0.87 mg/dL Normal 0.60-1.20 The [facility] Comment on above: Performed By: #### 0 0121 ####[facility] [address], [place] GFR/1.73 sq M predicted among blacks MDRD vol rate/area (S/P/Bld) mL/min/{1.73_m2} Normal >60 The [facility] Comment on above: Performed By: #### 0 0121 ####[facility] [place] [address], [place] GFR/1.73 sq M predicted among non-blacks MDRD vol rate/area (S/P/Bld) mL/min/{1.73_m2} Normal >60 The [facility] Comment on above: Performed By: #### 0 0121 ####[facility] [place] [address], [place] Glucose mass conc 99 mg/dL Normal 70-100 The [facility] Comment on above: Performed By: #### 0 0121 ####[facility] [place] [address], [facility] Potassium molar conc 4.1 mmol/L Normal 3.5-5.1 The [facility] Comment on above: Performed By: #### 0 0121 ####[facility] [id number], [facility] Protein mass conc 7.5 g/dL Normal 6.0-8.3 The [facility] Comment on above: Performed By: #### 0 0121 ####[facility] [place] [address], [facility] Sodium molar conc 136 mmol/L Normal 136-145 The [facility] Comment on above: Performed By: #### 0 0121 ####[facility] [address], [facility] Urea nitrogen mass conc 20 mg/dL Normal 7-25 [facility] Comment on above: Performed By: #### 0 0121 ####[facility] [facility] [address], [facility] COMPLEMENT 3on 02-10-2017 COMPLEMENT 3 154 mg/dL High 79-152 The [facility] Comment on above: Performed By: #### 1 0204, [id number], [id number] ####[facility] [address], [facility] COMPLEMENT 4on 02-10-2017 COMPLEMENT 4 34 mg/dL Normal 16-38 The [facility] Comment on above: Performed By: #### 1 0204, [id number], [id number] ####[facility] [facility] [place] [address], [facility] CREATININE URINE RANDOMon CREATININE 138.0 mg/dL Normal The [facility] Comment on above: Result Comment: Ther e are no established reference values for random urine specimens Performed By: #### 4 1702, [id number] ####[facility] [place] [address], [facility] CRYOGLOBULIN ILon 02-10-2017 CRYOGLOBULIN 0 mg/dL Normal 0-10 The [facility] IL Normal The [facility] CYCLIC CITRULLINATED PEPTIDE AB [id number] 02-10-2017 CYCLIC CIT PEP 6 Units Normal 0-19 The [facility] Comment on above: Result Comment: INTE RPRETIVE INFORMATION: Cyclic Citrullinated PeptideAntibody, IgG 19 Units or less ................... Negative 20-39 Units ........................ Weak Positive 40-59 Units ........................ Moderate Positive 60 Units or greater ................ Strong PositiveAnti-cyclic citrullinated peptide (anti-CCP), IgGantibodies are present in about 69-83 percent of patientswith rheumatoid arthritis (RA) and have specificities of93-95 percent. These autoantibodies may be present in thepreclinical phase of disease, are associated with future RAdevelopment, and may predict radiographic jointdestruction. Patients with weak positive results should bemonitored and testing repeated.Performed by [employer],[address] [place], [place] [id number] [email or web address], Onel Connelly MD - Lab. Director HEPATITIS B CORE ANTIBODYon 02-10-2017 HEP B CORE AB NONREACTIVE Normal NONREACTIVE The [facility] Comment on above: Performed By: #### 3 8197, [id number], 28086, [id number] ####[facility] [facility] [address], [facility] HEPATITIS B SURFACE ANTIBODY QUANTon 02-10-2017 HEP B SURF AB 0.00 mIU/ml Normal The [facility] Comment on above: Result Comment: INTE RPRETATION:NONREACTIVE<8.00 mIU/mLINDETERMINATE8.00 - 12.00 mIU/mLREACTIVE>12 mIU/mL Performed By: #### 1 0008 ####[facility] [place] [address], [facility] HEPATITIS B SURFACE ANTIGEN QUALon 02-10-2017 HEP B SURF AG QUAL NONREACTIVE Normal NONREACTIVE [facility] Comment on above: Performed By: #### 1 0008 ####[facility] [facility] [address], [facility] HEPATITIS C ANTIBODYon 02-10 ANTI-HCV NONREACTIVE Normal NONREACTIVE The [facility] Comment on above: Performed By: #### 3 1397, [id number], 01613, [id number] ####[facility] [facility] [address], [facility] RHEUMATOID FACTOR SERUMon RA <20 Normal 0-20 [facility] Comment on above: Performed By: #### 1 0204, [id number], 80631 ####[facility] [facility] [address], [facility] SJOGRENS ANTIBODIESon 2016 SS-A Negative Normal NEG,NEGATIVE,Ne g [facility] Comment on above: Performed By: #### 1 0008 ####[place] [address] [facility] [place] [address], [facility] SS-B Negative Normal NEG,NEGATIVE,Ne g [facility] Comment on above: Performed By: #### 1 0008 ####[facility] [facility] [address], [facility] T PROT UR Adam 02-10-2017 Protein mass conc 29.0 mg/dL Normal The [facility] Comment on above: Result Comment: Ther e are no established reference values for random urine specimens Performed By: #### 4 1802, [id number] ####[facility] [address], [facility] TB QUANTIFERONon 02-10-2017 MITOGEN MINUS NIL >=10 Normal [facility] Comment on above: Performed By: #### 4 1802, [id number] ####[facility] NIL 0.03 IU/mL Normal [facility] Comment on above: Performed By: #### 4 1802, [id number] ####[facility] TB AG MINUS NIL 0.01 IU/mL Normal The [facility] Comment on above: Performed By: #### 4 1802, [id number] ####[place] [address] [address] TB ANTIGEN 0.04 IU/mL Normal [facility] Comment on above: Performed By: #### 4 1802, [id number] ####[place] [address] TB QUANTIFERON Negative Normal NEGATIVE The [facility] Comment on above: Result Comment: Boy tiferon TB Gold Interpretation (IU/mL):NEGATIVE: M. tuberculosis infectioN not likelyNil: <=8.0TB Antigen minus Nil (TBAG-NIL): <0.35 OR >=0.35; and <25% of Nil valueMitogen minus Nil (DEION-NIL): >=0.50NOTE: Diagnosing or excluding tuberculosis disease, and assessing theprobability of LTBI, requires a combination of epidemiological,historial, medical, and diagnostic findings that should be taken intoaccount when interpreting QuantiFERON (TM)-TB Gold results. See generalguidance on the diagnosis and treatment of TB disease and LTBI(http://www.cdc.gov/nchstp/tb/). Performed By: #### 4 1802, 99039 ####[facility] URINALYSISon 02-10-2017 APPEARANCE CLOUDY Abnormal CLEAR The [facility] Comment on above: Performed By: #### 1 0008 ####[facility] [place] [address], [facility] BACTERIA MOD Abnormal NONE SEEN The [facility] Comment on above: Performed By: #### 1 0008 ####[facility] [place] [address], [facility] BILIRUBIN Negative Normal NEGATIVE The [facility] Comment on above: Performed By: #### 1 0008 ####[facility] [place] [address], [facility] BLOOD Negative Normal NEGATIVE [facility] Comment on above: Performed By: #### 1 0008 ####[facility] [facility] [address], [facility] COLOR YELLOW Normal YELLOW [facility] Comment on above: Performed By: #### 1 0008 ####[facility] [place] [address], [facility] EPIS MANY Abnormal FEW [facility] Comment on above: Performed By: #### 1 0008 ####[facility] [facility] [address], [facility] GLUCOSE Negative Normal NEGATIVE The [facility] Comment on above: Performed By: #### 1 0008 ####[facility] INR Coag RelTime (Bld) 0-2 Abnormal 0-0 [facility] Comment on above: Performed By: #### 1 0008 ####[facility] [place] [address], [facility] KETONE Negative Normal NEGATIVE The [facility] Comment on above: Performed By: #### 1 0008 ####[facility], [place] [address] LEUK DIMPLE LARGE Abnormal NEGATIVE The [facility] Comment on above: Performed By: #### 1 0008 ####[facility] [facility].[address] MUCUS THREADS OCC Abnormal NONE SEEN The [facility] Comment on above: Performed By: #### 1 0008 ####[facility] [facility] [place] [address], [facility] NITRITE Negative Normal NEGATIVE The [facility] Comment on above: Performed By: #### 1 0008 ####[facility] [facility].[address] PH 5.0 Normal 5.0-8.0 [facility] Comment on above: Performed By: #### 1 0008 ####[facility] Protein mass conc Negative Normal NEGATIVE The [facility] Comment on above: Performed By: #### 1 0008 ####[facility] [facility].[address] SPEC GRAV 1.020 Normal 1.015-1.020 [facility] Comment on above: Performed By: #### 1 0008 ####[facility] [facility].[address] WBC UA >100 Abnormal 0-0 [facility] Comment on above: Performed By: #### 1 0008 ####[facility] CYTOLOGY SPECIMENon 02-02-20 CYTOLOGY SPEC Normal [facility] Comment on above: Order Comment: Comme nt: A. PERIESOPHAGEAL LESION FNA - CYTOLYT, 10 SLIDES Result Comment: Note : Specimens received on or after December:* Pathology and Cytology reports are located in [facility] in the folder labeled Medical Record Forms.* Reports are also in the Physician Portal.* Reports will be faxed to phycician's office.* For assistance locating reports call: * Willard Guadarrama [phone] * LAB [phone] Performed By: #### L UHCYTO ####[place] [address] [place] [address] Albumin [Mass/volume] in Ser um or Plasmaon 01-03-2017 Albumin [Mass/Vol] 3.3 g/dL 3.2-5.5 [facility] Basophils Auto (Bld) [#/Vol] on 01-03-2017 Basophils (Bld) [#/Vol] 0.0 10*3/uL 0.0-0.2 [facility] Basophils/100 WBC Auto (Bld) on 01-03-2017 Basophils/100 WBC (Bld) 0.6 % . [facility] Creatinine and Glomerular fi ltration rate.predicted panel (S/P/Bld)on 01-03-2017 Creatinine [Mass/Vol] 1.00 mg/dL 0.44-1.03 [facility] Eosinophils Auto (Bld) [#/Vo l]on 01-03-2017 Eosinophils (Bld) [#/Vol] 0.1 10*3/uL 0.0-0.45 [facility] Eosinophils/100 WBC Auto (Bl d)on 01-03-2017 Eosinophils/100 WBC (Bld) 1.5 % . [facility] Erythrocyte distribution wid th Auto (RBC) [Ratio]on 01-03-2017 Erythrocyte distribution width (RBC) [Ratio] 14.5 % 11.9-15.3 [facility] Estimated glomerular filtrat ion rate (GFR) non- Americanon 01-03-2017 GFR/1.73 sq M.predicted among non-blacks MDRD (S/P/Bld) [Vol rate/Area] 56 mL/min/{1.73_m2} [facility] Globulin Calc (S) [Mass/Vol] on 01-03-2017 Globulin (S) [Mass/Vol] 3.6 g/dL [facility] Hematocrit Auto (Bld) [Volum e fraction]on 01-03-2017 Hematocrit (Bld) [Volume fraction] 36.3 % 34.0-46.4 [facility] Hemoglobin [Mass/volume] in Bloodon 01-03-2017 Hemoglobin (Bld) [Mass/Vol] 12.1 g/dL 11.8-15.4 [facility] Laboratory - Chemistry and C hemistry - challengeon 01-03-2017 GFR/1.73 sq M.predicted among blacks MDRD (S/P/Bld) [Vol rate/Area] mL/min/{1.73_m2} [facility] Comment on above: GFR estimated refere nce range: According to KDOQI guidelines, <60 ml/min/1.73m2 is sufficient to diagnose a patient with chronic kidney disease. Lymphocytes Auto (Bld) [#/Vo l]on 01-03-2017 Lymphocytes (Bld) [#/Vol] 2.1 10*3/uL 1.00-4.8 [facility] Lymphocytes/100 WBC Auto (Bl d)on 01-03-2017 Lymphocytes/100 WBC (Bld) 27.4 % . [facility] MCH Auto (RBC) [Entitic mass ]on 01-03-2017 MCH (RBC) [Entitic mass] 30.8 pg 24.7-34.3 [facility] MCHC Auto (RBC) [Mass/Vol]on 01-03-2017 MCHC (RBC) [Mass/Vol] 33.4 g/dL 32.0-35.0 [facility] MCV Auto (RBC) [Entitic vol] on 01-03-2017 MCV (RBC) [Entitic vol] 92.4 fL 80-100 [facility] Monocytes Auto (Bld) [#/Vol] on 01-03-2017 Monocytes (Bld) [#/Vol] 1.0 10*3/uL 0.0-0.8 [facility] Monocytes/100 WBC Auto (Bld) on 01-03-2017 Monocytes/100 WBC (Bld) 12.7 % . [facility] Neutrophils Auto (Bld) [#/Vo l]on 01-03-2017 Neutrophils (Bld) [#/Vol] 4.4 10*3/uL 1.8-7.7 [facility] Neutrophils/100 WBC Auto (Bl d)on 01-03-2017 Neutrophils/100 WBC (Bld) 57.8 % . [facility] No Panel Informationon 01-03 Pharmacy Creatinine Clearance (Chem N/A [facility] Platelet mean volume Auto (B ld) [Entitic vol]on 01-03-2017 Platelet mean volume (Bld) [Entitic vol] 8.2 fL 6.3-10.7 [facility] Platelets Auto (Bld) [#/Vol] on 01-03-2017 Platelets (Bld) [#/Vol] 429 10*3/uL 150-450 [facility] Protein [Mass/volume] in Ser um or Plasmaon 01-03-2017 Protein [Mass/Vol] 6.9 g/dL 6.1-7.9 [facility] RBC Auto (Bld) [#/Vol]on RBC (Bld) [#/Vol] 3.93 10*6/uL 3.60-5.00 [facility] Serum or plasma alanine briggs otransferase measurement without P-5'-P (enzymatic activion 01-03-2017 ALT No additional P-5'-P [Catalytic activity/Vol] 37 U/L 10-60 [facility] Serum or plasma albumin/glob ulin mass ratioon 01-03-2017 Albumin/Globulin [Mass ratio] 0.9 {ratio} [facility] Serum or plasma alkaline bita sphatase measurement (enzymatic activity/volume)on 01-03-2017 ALP [Catalytic activity/Vol] 89 U/L 32-92 [facility] Serum or plasma aspartate am inotransferase measurement (enzymatic activity/volume)on 01-03-2017 AST [Catalytic activity/Vol] 30 U/L 10-42 [facility] Serum or plasma calcium katheryn urement (mass/volume)on 01-03-2017 Calcium [Mass/Vol] 9.4 mg/dL 8.2-10.2 [facility] Serum or plasma chloride claudia surement (moles/volume)on 01-03-2017 Chloride [Moles/Vol] 98 mmol/L 95-114 [facility] Serum or plasma glucose katheryn urement (mass/volume)on 01-03-2017 Glucose [Mass/Vol] 107 mg/dL 70-100 [facility] Comment on above: ADA recommended refe rence rangeRandom Glucose Reference Range is dependent on time and content of last meal. Glucose of more than 200 mg/dL in a nonstressed, ambulatory subject supports the diagnosis of Diabetes Mellitus. Serum or plasma potassium me asurement (moles/volume)on 01-03-2017 Potassium [Moles/Vol] 4.1 mmol/L 3.5-5.1 [facility] Serum or plasma sodium measu rement (moles/volume)on 01-03-2017 Sodium [Moles/Vol] 139 mmol/L 136-146 [facility] Serum or plasma total biliru bin measurement (mass/volume)on 01-03-2017 Bilirubin [Mass/Vol] 0.3 mg/dL 0.3-1.2 [facility] Serum or plasma total carbon dioxide measurement (moles/volume)on 01-03-2017 CO2 [Moles/Vol] 29.5 mmol/L 22.0-30.0 [facility] Serum or plasma urea nitroge n measurement (mass/volume)on 01-03-2017 Urea nitrogen [Mass/Vol] 12 mg/dL 9-23 [facility] WBC Auto (Bld) [#/Vol]on WBC (Bld) [#/Vol] 7.6 10*3/uL 3.8-11.6 [facility] No Panel Information [facility] Vital Signs Date Time Vital Sign Value Performing Clinician Faci lity 01-21-2023 09:58-0400 Body temperature 97.2 [degF] MD Christian Steiner Work Phone: [facility] 01-21-2023 09:58-0400 Body weight 76.65 kg MD Christian Steiner Work Phone: [facility] 01-21-2023 09:58-0400 Diastolic blood pressure 78 mm[Hg] MD Christian Steiner Work Phone: [facility] 01-21-2023 09:58-0400 Heart rate 71 /min MD Christian Steiner Work Phone: [facility] 01-21-2023 09:58-0400 Respiratory rate 16 /min MD Christian Steiner Work Phone: [facility] 01-21-2023 09:58-0400 SaO2% (BldA) [Mass fraction] 98 % MD Christian Steiner Work Phone: [facility] 01-21-2023 09:58-0400 Systolic blood pressure 141 mm[Hg] MD Christian Steiner Work Phone: [facility] 01-21-2022 10:03-0400 Body height 167.64 cm MD Christian Steiner [facility] 01-21-2022 10:03-0400 Body weight 82.64 kg MD Christian Steiner [facility] 01-21-2022 10:03-0400 Diastolic blood pressure 78 mm[Hg] MD Christian Steiner [facility] 01-21-2022 10:03-0400 Heart rate 98 /min MD Christian Steiner [facility] 01-21-2022 10:03-0400 Respiratory rate 18 /min MD Christian Steiner [facility] 01-21-2022 10:03-0400 SaO2% (BldA) [Mass fraction] 98 % MD Christian Steiner [facility] 01-21-2022 10:03-0400 Systolic blood pressure 122 mm[Hg] MD Chrisitan Steiner [facility] 01-21-2021 10:29-0400 Body temperature 98 [degF] MD Christian Steiner [facility] Encounters Encounter Date Encounter Type Care Provider Facility Start: 01-21-2023 End: 01-21-2023 ambulatory MD Christian Steiner Work Phone: [facility] Work Phone: Start: 01-21-2023 End: 01-21-2023 Registered Recurring MD Christian Steiner Work Phone: [facility] Work Phone: Start: 01-17-2023 End: 01-17-2023 ambulatory ALESHA SCHULTE Facility:[facility] Start: 01-17-2023 End: 01-17-2023 Patient encounter procedure Alesha Schulte MD Work Phone: Ophthalmology Comment on above: Primary open-angle g laucoma, bilateral, mild stage (Primary Dx) Start: 08-02-2022 End: 09-01-2022 ambulatory COVARRUBIAS H FAWWAD Facility:[facility] Start: 07-05-2022 End: 07-05-2022 ambulatory KENYETTA REYNOLDS Facility:[facility] Start: 07-05-2022 End: 07-05-2022 Patient encounter procedure Alesha Schulte MD Work Phone: Ophthalmology Comment on above: Primary open-angle g laucoma, bilateral, mild stage (Primary Dx) Start: 07-05-2022 End: 07-30-2022 ambulatory COVARRUBIAS H FAWWAD Facility:[facility] Start: 06-18-2022 End: 06-19-2022 ambulatory MR DINO KRISHNA . Facility:[facility] Start: 06-02-2022 End: 07-02-2022 ambulatory COVARRUBIAS H FAWWAD Facility:[facility] Start: 05-05-2022 End: 06-02-2022 ambulatory COVARRUBIAS H FAWWAD Facility:[facility] Start: 04-28-2022 End: 04-29-[address] KENYETTA REYNOLDS . Facility:[facility] Start: 04-05-2022 End: 05-05-2022 ambulatory COVARRUBIAS H FAWWAD Facility:[facility] Start: 03-19-2022 End: 03-19-2022 ambulatory MARGA MARTINEZ . Facility:[facility] Start: 03-09-2022 Telephone encounter Alesha Schulte MD Work Phone: Ophthalmology Comment on above: Appointment Start: 03-04-2022 End: 04-04-2022 ambulatory COVARRUBIAS H FAWWAD Facility:[facility] Start: 02-02-2022 End: 03-03-2022 ambulatory COVARRUBIAS H FAWWAD Facility:[facility] Start: 01-21-2022 End: 01-21-2022 ambulatory MD Christian Steiner [facility] Work Phone: Start: 01-21-2022 End: 01-21-2022 Registered Recurring MD Christian Steiner [facility] Start: 01-03-2022 End: 02-01-2022 ambulatory COVARRUBIAS H FAWWAD Facility:[facility] Start: 12-03-2021 End: 01-02-2022 ambulatory COVARRUBIAS H FAWWAD Facility:[facility] Start: 11-02-2021 End: 12-02-2021 ambulatory COVARRUBIAS H FAWWAD Facility:[facility] Start: 10-02-2021 End: 10-30-2021 ambulatory COVARRUBIAS H FAWWAD Facility:[facility] Start: 07-19-2018 Patient encounter procedure Kacie Naty Jarrod Facility:[id number] Start: 01-17-2018 Patient encounter procedure Kacie Naty Jarrod Facility:[id number] Start: 09-28-2017 End: 09-29-2017 Patient encounter EMELY DOMENICO Facility:[facility] Start: 08-18-2017 Patient encounter procedure Christian Steiner Facility:[id number] Start: 03-31-2017 End: 04-01-2017 Patient encounter EMELY DOMENICO Facility:[facility] Start: 02-10-2017 End: 02-11-2017 Patient encounter EMELY DOMENICO Facility:[facility] Start: 01-28-2017 Ambulatory Pal Deshawn Facility:[facility] Procedures Date Procedure Procedure Detail Performing Clinician Start: 01-20-2023 Screening mammograph y of left breast MD Christian Steiner Work Phone: Start: 07-05-2022 End: 07-05-2022 Visual field xm uni/bi w/interp extended exam Alesha Schulte MD Work Phone: Start: 01-18-2022 Screening mammograph y of left breast MD Christian Steiner Start: 01-15-2021 Screening mammograph y of left breast MD Christian Steiner Start: 07-18-2020 Dual energy X-ray absorptiometry MD Christian Steiner Start: 01-15-2020 Screening mammography M Iza Steiner Start: 01-12-2019 Screening mammography M zIa Steiner Start: 07-14-2018 Dual energy X-ray absorptiometry MD Christian Steiner Start: 08-17-2017 Positron emission tomography with computed tomography MD Christian Steiner Start: 03-22-2017 MR abdomen wo/w con MD Christian Steiner Start: 03-14-2017 Positron emission tomography with computed tomography MD Christian Steiner Start: 01-18-2017 Ultrasound procedure on topographic region MD Christian Steiner Start: 01-07-2017 Positron emission tomography with computed tomography MD Christian Steiner Start: 01-05-2017 Duplex scan of lower limb veins MD Christian Steiner Start: 01-03-2017 CT chest w con MD Tia Steiner Plan of Treatment Date Care Activity Detail Author Start: 12-03-2022 Influenza vaccination [facility] Start: 04-04-2022 ADVANCE DIRECTIVE DISCUSSION ADVANCE DIRECTIVE DISCUSSION [facility] Start: 04-04-2022 DEPRESSION ASSESSMENT DEPRESSION ASSESSMENT [facility] Start: 12-03-2021 Influenza vaccination INFLUENZA (#1) [facility] Start: 04-04-2021 ADVANCE DIRECTIVE DISCUSSION ADVANCE DIRECTIVE DISCUSSION [facility] Start: 04-04-2021 DEPRESSION ASSESSMENT DEPRESSION ASSESSMENT [facility] Start: 2017 BONE DENSITY BONE DENSITY [facility] Start: 2017 Bone Density Screening Bone Density Screening [facility] Start: 2017 PNEUMOCOCCAL: 65+ (1 - PCV) PNEUMOCOCCAL: 65+ (1 - PCV) [facility] Start: 11-13-2014 SHINGRIX VACCINE (2 of 3) SHINGRIX VACCINE (2 of 3) [facility] Start: 2002 SHINGRIX VACCINE (1 of 2) SHINGRIX VACCINE (1 of 2) [facility] Start: 1997 COLOGUARD (FIT-DNA) COLOGUARD (FIT-DNA) [facility] Start: 1997 Colonoscopy COLONOSCOPY [facility] Start: 1997 COLORECTAL CANCER SCREENING COLORECTAL CANCER SCREENING [facility] Start: [address] COLONOGRAPHY [facility] Start: 1997 DIABETES SCREEN DIABETES SCREEN [facility] Start: 1997 Diabetes Screening Diabetes Screening [facility] Start: 1997 FECAL OCCULT BLOOD FECAL OCCULT BLOOD [facility] Start: 1997 Lipid 1996 panel - Serum or Plasma Lipid Screening [facility] Start: 1997 LIPID SCREEN LIPID SCREEN [facility] Start: 1997 SIGMOIDOSCOPY SIGMOIDOSCOPY [facility] Start: 1992 Mammography [facility] Start: 1982 Zoledronic acid therapy ALPHA-1 ANTITRYPSIN DEFICIENCY SCREENING [facility] Start: 1971 Urine microalbumin profile [facility] Start: 1970 ANNUAL PCP TEAM CHRONIC DISEASE VISIT ANNUAL PCP TEAM CHRONIC DISEASE VISIT [facility] Start: 1970 HEPATITIS C SCREENING HEPATITIS C SCREENING [facility] Start: 1970 SPIROMETRY SPIROMETRY [facility] Start: 1952 COVID-19 VACCINE (#1) COVID-19 VACCINE (#1) [facility] MG Breast - left Screening [facility] MG Breast - left Screening [facility] Immunizations Immunization Date Immunization Notes Care Provider Fa [facility] 01-05-2020 influenza (HD-IIV4) vaccine, age 65+ yr, high dose, quadrivalent, PF (FLUZONE HIGH-DOSE) lAesha Schulte MD Work Phone: [facility] 01-05-2020 influenza virus vacc ine, unspecified formulation Alesha Schulte MD Work Phone: [facility] 01-25-2018 pneumococcal polysaccharide vaccine, 23 valent Alesha Schulte MD Work Phone: [facility] 10-20-2017 pneumococcal conjuga te vaccine, 13 valent Alesha Schulte MD Work Phone: [facility] 09-17-2015 pneumococcal polysaccharide vaccine, 23 valent Alesha Schulte MD Work Phone: [facility] 06-09-2015 influenza, injectabl e, quadrivalent, preservative free Alesha Schulte MD Work Phone: [facility] 09-18-2014 zoster vaccine, live Raji Schulte MD Work Phone: [facility] 01-30-2009 novel influenza-H1N1 -09, preservative-free, injectable Alesha Schulte MD Work Phone: [facility] Payers Date Payer Category Payer Unknown MMO MMO MEDICARE SUPPLEMENT [id number] 2019-Present [phone] [address] [place] [address] Indemnity [id number] 2018 Medicare MEDICARE MEDICAR E A AND B [id number] 2018-Present [phone] [address] [address] [place] [address] Medicare [id number] 2016 Self-pay [id number] 1959 Medicare [id number] 1959 Unknown [id number] 1952 Unknown [id number] 1952 Unknown [id number] 2.16.840.1.138971.3.579.2.356 1952 Unknown [id number] 2.16.840.1.189430.3.579.2.356 1952 Unknown [id number] 2.16.840.1.180711.3.579.2.593 1952 Unknown [id number] 2.16.840.1.536272.3.579.2.593 1952 Unknown [id number] 2.16.840.1.414753.3.579.2.593 1952 Unknown [id number] 2.16.840.1.052324.3.579.2.593 1952 Unknown [id number] 2.16.840.1.885593.3.579.2.593 1952 Unknown [id number] 2.16.840.1.693497.3.579.2.593 1952 Unknown [id number] 2.16.840.1.776673.3.579.2.593 1952 Unknown [id number] 2.16.840.1.730581.3.579.2.593 1952 Unknown [id number] 2.16.840.1.663039.3.579.2.593 1952 Unknown [id number] 2.16.840.1.636065.3.579.2.593 1952 Unknown [id number] 2.16.840.1.800270.3.579.2.593 1952 Unknown [id number] 2.16.840.1.381368.3.579.2.593 1952 Unknown [id number] 2.16.840.1.557942.3.579.2.593 1952 Unknown [id number] 2.16.840.1.211484.3.579.2.593 Unknown [id number] Unknown [id number] [id number] Social History Date Type Detail Facility Start: 01-21-2021 End: 01-21-2023 Tobacco smoking status NVIS Never smoked tobacco (finding) [facility] Start: 1950 Sex Assigned At Female F [facility] Start: 02-27-2019 Tobacco use and exposure Smoke less tobacco non-user [facility] Start: 09-18-2019 End: 01-17-2023 Alcohol intake Current drinker of alcohol (finding) [facility] Start: 09-18-2019 History SDOH Alcohol Frequency 2 [facility] Start: 09-18-2019 History SDOH Alcohol Std Drinks 1 [facility] Start: 02-27-2019 Alcohol Comment a glass of win e once every 2-3 months [facility] Start: 1950 Sex Assigned At Not on file [facility] Start: 02-27-2019 End: 07-05-2022 History of Social function [facility] Start: 02-27-2019 End: 07-05-2022 Alcohol Use Disorder Identification Test - Consumption [AUDIT-C] [facility] Frequency of Alcohol Consumption Monthly or less [facility] Medical Equipment Procedure Code Equipment Code Equipment Origin al Text Equipment Identifier Dates Lens Acrysof Iq Toric 6mm +24.5 Diopter +6 Cylinder 0 D Biconvex Acrylic 13 - [id number] Start: 03-14-2019 Comment on above: Description: -0.57 Lens Acrysof Iq Toric Stableforce 6mm 0 D +22.5 Diopter +2.25 Cylinder - [id number] Start: 03-21-2019 Comment on above: Description: -0.80 Istent Inject - [id number] Start: 03-14-2019 Istent Inject - [id number] Start: 03-21-2019 Clinical Notes 01-04-2017 to 01-17-2023 Alesha Schulte MD - 01/17/2023 8:36 AM EDTAdonn Schulte MD - 07/05/2022 11:14 AM EDTTelephone Encounter - Nida Stockton - 03/11/2022 9:38 AM EST Note Date & Type Note Facility 01-17-2023 Note HNO ID: [id number] Author: Alesha Schulte MD Service: ? Author Type: Physician Type: Progress Notes Filed: 01/17/2023 8:39 AM Note Text: Tmax: 25, 26; Pachy: 548, 546 Lasers and Surgeries: OD: IOL, istent OS: IOL, istent Ocular Medication Intol and Non-efficacy: - Referred by Dr Saul -[facility] 07/05/22 OD full OS full -OCT 07/05/22 OD ? Sup loss OS normal - Glaucoma suspect right eye>left eye Monitor for now No family history Full exam next visit and decide about SLT. IOL both eyes I, Alesha Schulte MD, have confirmed and edited as necessary the relevant ophthalmic history, ROS, and the neuro exam findings as obtained by others. I have seen and examined Myla Brothers. I have discussed the case and the management of this patient's care with the Resident/Fellow, if applicable. I also have reviewed and agree with the assessment and plan as stated above and agree with all of its relevant components. [facility] 01-17-2023 History of Presen t illness Narrative Tmax: 25, 26; Pachy: 548, 546 Lasers and Surgeries: OD: IOL, istent OS: IOL, istent Ocular Medication Intol and Non-efficacy: - Referred by Dr Kg HERNÁNDEZ 07/05/22 OD full OS full -OCT 07/05/22 OD ? Sup loss OS normal - Glaucoma suspect right eye>left eye Monitor for now No family history Full exam next visit and decide about SLT. IOL both eyes I, Alesha Schulte MD, have confirmed and edited as necessary the relevant ophthalmic history, ROS, and the neuro exam findings as obtained by others. I have seen and examined Myla Brothers. I have discussed the case and the management of this patient's care with the Resident/Fellow, if applicable. I also have reviewed and agree with the assessment and plan as stated above and agree with all of its relevant components. documented in this encounter [facility] 07-05-2022 Note HNO ID: [id number] Author: Alesha Schulte MD Service: ? Author Type: Physician Type: Progress Notes Filed: 07/05/2022 11:18 AM Note Text: Tmax: 25, 26; Pachy: 548, 546 Lasers and Surgeries: OD: IOL, istent OS: IOL, istent Ocular Medication Intol and Non-efficacy: - Referred by Dr Kg HERNÁNDEZ 07/05/22 OD full OS full -OCT 07/05/22 OD ? Sup loss OS normal - Glaucoma suspect right eye>left eye Monitor for now No family history IOL both eyes I, Alesha Schulte MD, have confirmed and edited as necessary the relevant ophthalmic history, ROS, and the neuro exam findings as obtained by others. I have seen and examined Myla Brothers. I have discussed the case and the management of this patient's care with the Resident/Fellow, if applicable. I also have reviewed and agree with the assessment and plan as stated above and agree with all of its relevant components. [facility] 07-05-2022 History of Presen t illness Narrative Tmax: 25, 26; Pachy: 548, 546 Lasers and Surgeries: OD: IOL, istent OS: IOL, istent Ocular Medication Intol and Non-efficacy: - Referred by Dr Saul -[facility] 07/05/22 OD full OS full -OCT 07/05/22 OD ? Sup loss OS normal - Glaucoma suspect right eye>left eye Monitor for now No family history IOL both eyes I, Alesha Schulte MD, have confirmed and edited as necessary the relevant ophthalmic history, ROS, and the neuro exam findings as obtained by others. I have seen and examined Myla Brothers. I have discussed the case and the management of this patient's care with the Resident/Fellow, if applicable. I also have reviewed and agree with the assessment and plan as stated above and agree with all of its relevant components. documented in this encounter [facility] 03-19-2022 Note PROCEDURE: XR WRIST RT MIN 3 V HISTORY: Unspecified fall ; acute right wrist pain after falling COMPARISON: None. FINDINGS: BONES:No fracture, acute abnormality, or significant arthropathy. SOFT TISSUES:No visible soft tissue swelling. EFFUSION:None visible. OTHER: Negative. IMPRESSION: 1. No acute bone abnormality. 2. Multifocal mild degenerative changes. Electronically authenticated by: ADIEL MCCONNELL Date: 2022-03-19 10:26 [facility] 03-11-2022 Miscellaneous Notes Formattin g of this note might be different from the original. *SECOND ATTEMT* Called patient and LVM for her to call back and schedule an appt with for glaucoma suspect. Referral from Dr. Sebastian. Called patient and LVM to schedule an appointment with Dr. Schulte for GLC suspect. documented in this encounter [facility] 01-21-2022 Progress note Note Date/Time January 21, 2022 10:15[facility] [place] [id number] Hem/Onc Follow Up Note - OP Signed Patient: Myla Brothers MR#: [id number] : 1950 Acct:[id number] Age/Sex: 71 / F Type: REG RCR Copies to: Kneyetta Reynolds MD~ Subjective Date/Time of Service: Date of Service: 01/21/2022 Time of Service: 10:14 Chief Complaint: Patient is here for a 1 year follow up with mammogram for review. No concerns voiced. HPI: 01/21/2022: Here for interval 1 year follow up for weakly progesterone positive right breast cancer; s/p right mastectomy 7 years ago. She recently had left breast screening mammogram on 01/18/2022 that showed no evidence of recurrence. She is no longer taking AI therapy and had regular follow up DEXA scan in July 2018. Compliant with calcium + Vitamin D3. Specifically denies any issues with headaches, fever/chills, recent/recurrent infections, weight loss, chest pain, cough, SOB, lymphadenopathy, new bony pain or changes on self breast exam. 01/21/2021: Here for 6 month f/u after January mammogram--denies breast or axillary pain. No recurrence on mammogram. Stopped anastrozole therapy in 10/2020--no significant change in energy level and did not have pain or myalgias previously. Ambulates independently without pain since prior knee replacement. Will f/u annually in Jan 2022 after her annual mammogram, may return sooner if new symptoms. Should not need f/u DEXA since previously normal on AI therapy. 07/21/2020: Video visit ([email or web address]) for 4-month follow-up and review of her DEXA scan. In October 2020 she will complete 5 years of anastrozole therapy. She underwent right knee replacement surgery in February 2020 (previously deferred for COVID-19 pandemic). She has no interval changes in her medical history and last mammogram was in January showing no evidence of recurrence. Since she has no recurrence after 5 years of anastrozole, [facility] now follow [facility] wishes to return to oncology). We will arrange her annual follow-ups after her annual mammograms in January of each year. She also requested refill of breast prosthesis and mastectomy bra. No breast exam due to telephone visit. No skin changes or breast tenderness. No recent f/u by sheriff's sergeant in [place]--was reported to have vasculitis 4 years ago--now resolved but still has some mild erythema and swelling of left greater than right leg without pain. Receives Anastrozole due to weak VT expression--no significant myalgias/arthralgias or hot flashes. No bowel or bladder complaints. No interval changes in medical history. DEXA scan showed normal bone density 07/17/2018--we reviewed 2-year DEXA scan which revealed normal results. End of 5 years of anastrozole therapy will be in about October 2020 (after completion of current prescription). I will defer next follow-up inperson visit to January 2021 after her annual mammogram, then we will continue annual follow-up. DIAGNOSIS: 1. 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 Tumor was ER negative, VT weak, and HER-2 nonamplified. She underwent right mastectomy at [place] in 02/2015. Completed dose dense AC X4 and Taxol X 12 in August 2015. 2. Anastrozole with calcium and vitamin D started in August 2015. Calcium and vitamin D discontinued 07/2016 Anastrozole stopped in 01/2017 when she developed vasculitis (erythematous rash over legs) although no proven association at this time. Anastrozole was resumed in 03/2017--no complaints 5 years of adjuvant therapy. 3. Evaluated by sheriff's sergeant in [place] (does not believe she had vasculitis)--no recent f/u. 4. She was noted to have pulmonary nodules and a PET scan was done in January 2017 that showed A. Two small but hypermetabolic left axillary lymph nodes. She subsequently had an EUS and Dr Hess noted that the lymph nodes had actually shrunken is size by the time he saw her. B. Small but fairly intense focus of hypermetabolic activity either in the lower lobe of the right lung adjacent to the esophagus or in the esophagus itself at the level of T9. EGD and EUS in 01/2017 were both negative C. Small pleural-based nodular density demonstrating mild uptake in the lowerlobe of the left lung posteriorly. Our local radiologist said that it was too small for biopsy. D. Colonic diverticulosis and focus of increased uptake in the sigmoid colon versus physiologic activity in the distal left ureter. E. Heterogeneous bony uptake, potentially therapy-induced. ---She had a follow-up PET scan in March 2017. This showed a groundglass opacity in the right lower lobe. Our radiologist felt that it was likely infectious or inflammatory. She was referred to pulmonary at [place]. Ground glass opacities resolved on PET/CT 08/2017. 5. A focus of increased uptake in the liver of uncertain significance was also identified. On MRI of the liver there was no abnormality found. 6. Normal DEXA scan 07/27/2018: Lumbar spine T-score +1.6, left femoral neck T-score -0.2, right femoral neck T-score 0. DEXA 07/2020: Lumbar spine T-score +1.6, left femoral neck T-score +0.1, right femoral neck T-score -0.9--all normal. - Summary of Therapies Summary of Therapies: 1. Right breast mastectomy at [facility] (Dr. Rodriguez) in 02/2015. 2. Completed dose dense AC X4 and Taxol X 12 in August 2015. 3. Anastrozole with calcium and vitamin D started in August 2015-- 5-year course completed October 2020. ROS Details: All systems reviewed & no additional complaints except as documented Subjective/ROS - Narrative: Constitutional: fair state of general health, no chills, no fatigue, no fever, no night sweats, no weakness, no weight gain, no weight loss Eyes: no change in vision, no double vision ENT: no headaches, no vertigo, no lightheadedness, no nasal congestion, no rhinorrhea, no epistaxis, no gingival bleeding, no sore throat Cardiovascular: no chest pain, no palpitations, no dyspnea on exertion, no edema, no heart murmur Respiratory: no cough, no exercise intolerance, no hemoptysis, no respiratory infections, no shortness of breath, no sputum production, no TB exposure, no wheezing Gastrointestinal: no change in appetite, no dysphagia, no indigestion, no abdominal pain, no bloating, no nausea, no vomiting, no jaundice, no constipation, no diarrhea, no black stools, no bloody stools, no change in bowelhabits Genitourinary: no frequency, no dysuria, no hematuria, no oliguria, no stones, no infections, no urinary retention Musculoskeletal: no myalgia, intermittent left leg swelling and color change, pain/vasculitis--now resolved (prior evaluation by rheumatology), no swelling, no redness, limited range of motion and intermittent pain now both knees since right knee replacement surgery and left knee injury as per H&P. No swelling over prior joint. Integumentary: no rash, no lesions, no petechiae, no bruising, no pruritus. LEFT breast: no changes, no lumps, no tenderness, no swelling, no axillary, supra/infraclavicular or cervical lymphadenopathy RIGHT breast: incision site - well healed mastectomy site, no tenderness, no swelling Neurological: no dizzy, no headache, no numbness, no paraesthesias, no pre-existing deficit, no tingling, no tremors, no weakness Psychiatric: no anxiety, no depression Endocrine: no excessive sweating, no intolerance to heat Hematologic/Lymphatic: no anemia, no bleeds easily, no bruises easily Allergic/Immunologic: no pruritus, no reaction to drugs PMFSH - Social History Smoking Status: Never smoker Substance Use Type: None Home Medications & Allergies Allergies Sulfa (Sulfonamide Antibiotics) Allergy (Unknown, Verified 01/21/22 09:59) Hives Home Medications albuterol sulfate 90 mcg/actuation aerosol inhaler 1 puff inhalation Q6H PRN Shortness Of Breath 01/05/17 [History Confirmed 01/21/21] ascorbic acid (vitamin C) 500 mg tablet (Vitamin C) 500 mg PO DAILY 01/05/17 [History Confirmed 01/21/21] budesonide-formoterol HFA 80 mcg-4.5 mcg/actuation aerosol inhaler (Symbicort) 2puff inhalation DAILY 01/05/17 [History Confirmed 01/21/21] fluticasone propionate 50 mcg/actuation nasal spray,suspension 2 spry intranasalDAILY 01/05/17 [History Confirmed 01/21/21] magnesium oxide 250 mg PO DAILY 01/05/17 [History Confirmed 01/21/21] montelukast 10 mg tablet 10 mg PO DAILY 01/05/17 [History Confirmed 01/21/21] tiotropium bromide 2.5 mcg/actuation mist for inhalation (Spiriva Respimat) 2 puff inhalation Q24H 01/05/17 [History Confirmed 01/21/21] biotin 1 mg tablet 1 mg PO DAILY 02/28/17 [History Confirmed 01/21/21] warfarin 7.5 mg tablet 7.5 - 10 mg PO DIRECTED 03/16/17 [History Confirmed 01/21/21] flaxseed oil 1,000 mg capsule 1,000 mg PO BID 03/25/17 [History Confirmed 01/21/21] cholecalciferol (vitamin D3) 25 mcg (1,000 unit) capsule (Vitamin D3) 1,000 unitPO DAILY 07/19/18 [History Confirmed 01/21/21] atorvastatin 20 mg tablet 20 mg PO DAILY 03/12/20 [History Confirmed 01/21/21] pregabalin 75 mg capsule (Lyrica) 75 mg PO BID 90 days #180 caps 08/19/21 [Rx] cyanocobalamin (vitamin B-12) 1,000 mcg tablet,extended release (Vitamin B-12 ER) 1,000 mcg PO DAILY 01/21/22 [History Confirmed 01/21/22] multivitamin 1 tab PO DAILY 01/21/22 [History Confirmed 01/21/22] pyridoxine (vitamin B6) 100 mg tablet (Vitamin B-6) 100 mg PO DAILY 01/21/22 [History Confirmed 01/21/22] Objective - Resuscitation Status Resuscitation Status: Full Code - Height/Weight Height/Weight: Height 5 ft 6 in Weight 82.645 kg - Vital Signs Vital Signs: 01/21/22 10:03 Pulse Rate [Left Brachial] 98 H Respiratory Rate 18 Blood Pressure [Left Arm] 122/78 02 Sat by Pulse Oximetry 98 Oxygen Delivery Method Room Air - Pain Right Knee Pain Intensity: 0 Bilateral Foot Pain Intensity: 0 Left Leg Pain Intensity: 0 - Distress Screening Distress Screen Results: RN Distress Screening Start: 01/05/17 15:44 Freq: Q30D Status: Complete Protocol: Document 01/05/17 15:44 AA (Rec: 01/05/17 15:46 AA [id number]) Distress Screening Distress Score: 3 Distress Screening Total 3 Physical Exam Narrative: CONSTITUTIONAL: The patient is in no acute distress. HEAD / FACE: Normocephalic. EYES: Pupils are equal and reactive to light. Conjunctivae and lids are benign in appearance. Ocular movement intact. EARS: Hearing grossly intact. NOSE / MOUTH / THROAT: Nose, mouth, tongue and oropharynx exam deferred due to coronavirus pandemic. NECK / THYROID: Neck is supple. Thyroid is symmetrical, without thyromegaly, masses or palpable nodules. LYMPHATIC: No palpable cervical, supraclavicular, axillary, or inguinal adenopathy. RESPIRATORY: Normal to inspection. Lungs clear to auscultation and percussion. No wheezing, rales, rhonchi or rubs. Normal effort. CARDIOVASCULAR: Regular rate and rhythm. No murmurs, gallops, or rubs. VASCULAR: Carotid, radial, femoral and pedal pulses present bilaterally. No bruits. ABDOMEN: Bowel sounds normoactive. Soft, nontender and non-distended. No hepatosplenomegaly. No masses. GENITOURINARY: No CVA tenderness. No suprapubic fullness or tenderness. No groinadenopathy. No evidence of hernias. INTEGUMENTARY: The skin is unremarkable. No rashes. No suspicious lesions BACK / SPINE: The back is nontender. No step-off deformity, no CVA tenderness. MUSCULOSKELETAL: Normal musculature, bilateral knees without effusion, healed right knee replacement with improved range of motion right knee and normal gait. EXTREMITIES: No edema, cyanosis or clubbing. No Ashwini sign. NEUROLOGICAL: Alert and oriented. Cranial nerves intact. No gross motor or sensory deficits. PSYCHIATRIC: No anxiety or evidence of depression. Examination of right postmastectomy site and left breast, bilateral axillary, infraclavicular, supraclavicular and cervical lymph nodes was carefully performed. There was no clinical evidence of cancer recurrence. - ECOG Performance Status ECOG Score: 0 Results - Labs Labs: Diagram of Most Recent CBC and CMP 01/03/17 17:45 01/03/17 17:45 - Imaging Other Additional comments: LEFT Breast Screening Mammogram dated: 01/18/2022 CLINICAL DATA: Screening for malignancy. SCREENING MAMMOGRAM - FULL FIELD DIGITAL WITH TOMOSYNTHESIS AND CAD COMPARISON:Mammograms dating back to 2019. Tomosynthesis craniocaudal and mediolateral oblique views of left breast were obtained using low-dose digital technique. This examination was reviewed with the aid of CAD. The breast tissue is composed of scattered fibroglandular densities. There are no dominant masses, typically malignant calcifications or architectural distortion. There has been no significant interval change. MM/MM screening mammo LT w/CAD IMPRESSION: NO MAMMOGRAPHIC EVIDENCE OF MALIGNANCY. ROUTINE FOLLOW-UP IS RECOMMENDED IN ONE YEAR. 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 ER negative, VT weak, and HER-2 nonamplified. (1) Breast cancer, right Qualifiers: Estrogen receptor status: negative Patient sex: female 1. 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 ER negative, VT weak, and HER-2 nonamplified. 2. She underwent mastectomy at [facility] in 02/2015. Completed dose dense AC X4 and Taxol X 12 in August 2015. 3. 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 Anastrozole was resumed in 03/2017 4. Saw sheriff's sergeant in [place] for persistent leg pain and swelling (he does not feel this is vasculitis). Symptoms stable. 5. She was noted to have pulmonary nodules and a PET scan was done in January 2017 that showed A. Two small but hypermetabolic left axillary lymph nodes. She subsequently had an EUS and Dr Hess noted that the lymph nodes had actually shrunken is size by the time he saw her. B. Small but fairly intense focus of hypermetabolic activity either in the lower lobe of the right lung adjacent to the esophagus or in the esophagus itself at the level of T9. EGD and EUS in 01/2017 were both negative C. Small pleural-based nodular density demonstrating mild uptake in the lowerlobe of the left lung posteriorly. Our local radiologist said that it was too small for biopsy. D. Colonic diverticulosis and focus of increased uptake in the sigmoid colon versus physiologic activity in the distal left ureter. E. Heterogeneous bony uptake, potentially therapy-induced. --She had a follow-up PET scan in March 2017 showing a groundglass opacity inthe right lower lobe. Our radiologist felt that it was likely infectious or inflammatory. She was referred to pulmonary at [facility]. --Followup PET/CT 08/2017 showed resolution of prior ground glass density. No further surveillance required. 6. A focus of increased uptake in the liver of undetermined significance was also identified. On MRI of the liver there was no abnormality found. No evidence of recurrence on most recent mammogram in January 2022. 5 years of Anastrozole therapy was completed in October 2020. Follow-up DEXA scan in July 2020 normal. She has node-negative weekly progesterone positive disease and benefit greater than 5 years of anastrozole is likely minimal. Based on most physical exam, most recent mammogram and ROS there is no evidence to suggest cancer recurrence. Since she is now 7 years from diagnosis, next f/u in person will be annual in 01/2023 after left breast mammogram unless new symptoms arise. This is a 15 minute low complexity f/u visit. (2) Screening for osteoporosis Normal screening DEXA scan 07/2018 on aromatase inhibitor therapy--repeat DEXA scan 07/2020 reviewed with the patient and she still has no evidence of osteopenia or osteoporosis. She is compliant with calcium and vitamin D and should not require routine DEXA off AI therapy. (3) Neuropathy We have referred her for acupuncture therapy for residual neuropathy from prior Taxol therapy. Symptoms are overall resolved. She continues taking Vitamin B supplement. - Chemo Plan Chemo Plan (Dose, Rate, Freq): Completed 5 year aromatase inhibitor therapy in 10/2020. Goal of Treatment: Curative - Time with Patient Time Spent with Patient (Follow Up Visit): Less than 20 minutes Coordination of Care & Counseling Time: Greater than 50% of time spent with patient was for coordination of care (as documented) and [id number]-le-[id number] counseling of patient and/or family. Dictated By: Claire Duran APRN DD/ [id number] Signed By: <Electronically signed by CHIDI Duran> 01/21/22 1041 [facility] Work Phone: 1(135) 246-893510-20-2021 Progress note Author Kacie Garay [facility] January 21, 2021 8:25pm Note Date/Time January 21, 2021 1 0:34am [facility] [place] [id number] Hem/Onc Follow Up Note - OP Signed Patient: Myla Brothers MR#: [id number] : 1950 Acct:[id number] Age/Sex: 70 / F Type: REG RCR Copies to: Kenyetta Reynolds MD~ Subjective Date/Time of Service: Date of Service: 01/21/2021 Time of Service: 10:34 Chief Complaint: Patient is here today for 6 month follow up visit for breast cancer of right breast. She had her mamogram 01/15/2021 HPI: 01/21/2021: Here for 6 month f/u after January mammogram--denies breast or axillary pain. No recurrence on mammogram. Stopped anastrozole therapy in 10/2020--no significant change in energy level and did not have pain or myalgias previously. Ambulates independently without pain since prior knee replacement. Will f/u annually in Jan 2022 after her annual mammogram, may return sooner if new symptoms. Should not need f/u DEXA since previously normal on AI therapy. 07/21/2020: Video visit ([email or web address]) for 4-month follow-up and review of her DEXA scan. In October 2020 she will complete 5 years of anastrozole therapy. She underwent right knee replacement surgery in February 2020 (previously deferred for COVID-19 pandemic). She has no interval changes in her medical history and last mammogram was in January showing no evidence of recurrence. Since she has no recurrence after 5 years of anastrozole, we will now follow annually [facility] but patient wishes to return to oncology). We will arrange her annual follow-ups after her annual mammograms in January of each year. She also requested refill of breast prosthesis and mastectomy bra. No breast exam due to telephone visit. No skin changes or breast tenderness. No recent f/u by sheriff's sergeant in [place]--was reported to have vasculitis 4 years ago--now resolved but still has some mild erythema and swelling of left greater than right leg without pain. Receives Anastrozole due to weak VT expression--no significant myalgias/arthralgias or hot flashes. No bowel or bladder complaints. No interval changes in medical history. DEXA scan showed normal bone density 07/17/2018--we reviewed 2-year DEXA scan which revealed normal results. End of 5 years of anastrozole therapy will be in about October 2020 (after completion of current prescription). I will defer next follow-up inperson visit to January 2021 after her annual mammogram, then we will continue annual follow-up. DIAGNOSIS: 1. 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 Tumor was ER negative, VT weak, and HER-2 nonamplified. She underwent right mastectomy at [place] in 02/2015. Completed dose dense AC X4 and Taxol X 12 in August 2015. 2. Anastrozole with calcium and vitamin D started in August 2015. Calcium and vitamin D discontinued 07/2016 Anastrozole stopped in 01/2017 when she developed vasculitis (erythematous rash over legs) although no proven association at this time. Anastrozole was resumed in 03/2017--no complaints 5 years of adjuvant therapy. 3. Evaluated by sheriff's sergeant in [place] (does not believe she had vasculitis)--no recent f/u. 4. She was noted to have pulmonary nodules and a PET scan was done in January 2017 that showed A. Two small but hypermetabolic left axillary lymph nodes. She subsequently had an EUS and Dr Hess noted that the lymph nodes had actually shrunken is size by the time he saw her. B. Small but fairly intense focus of hypermetabolic activity either in the lower lobe of the right lung adjacent to the esophagus or in the esophagus itself at the level of T9. EGD and EUS in 01/2017 were both negative C. Small pleural-based nodular density demonstrating mild uptake in the lowerlobe of the left lung posteriorly. Our local radiologist said that it was too small for biopsy. D. Colonic diverticulosis and focus of increased uptake in the sigmoid colon versus physiologic activity in the distal left ureter. E. Heterogeneous bony uptake, potentially therapy-induced. ---She had a follow-up PET scan in March 2017. This showed a groundglass opacity in the right lower lobe. Our radiologist felt that it was likely infectious or inflammatory. She was referred to pulmonary at [facility]. Ground glass opacities resolved on PET/CT 08/2017. 5. A focus of increased uptake in the liver of uncertain significance was also identified. On MRI of the liver there was no abnormality found. 6. Normal DEXA scan 07/27/2018: Lumbar spine T-score +1.6, left femoral neck T- score -0.2, right femoral neck T-score 0. DEXA 07/2020: Lumbar spine T-score +1.6, left femoral neck T-score +0.1, right femoral neck T-score -0.9--all normal. - Summary of Therapies Summary of Therapies: 1. Underwent right mastectomy at [facility] in 02/2015. 2. Completed dose dense AC X4 and Taxol X 12 in August 2015. 3. Anastrozole with calcium and vitamin D started in August 2015--plan 5-year course completed October 2020. ROS Details: All systems reviewed & no additional complaints except as documented Subjective/ROS - Narrative: Constitutional: fair state of general health, no chills, no fatigue, no fever, no night sweats, no weakness, no weight gain, no weight loss Eyes: no change in vision, no double vision ENT: no headaches, no vertigo, no lightheadedness, no nasal congestion, no rhinorrhea, no epistaxis, no gingival bleeding, no sore throat Cardiovascular: no chest pain, no palpitations, no dyspnea on exertion, no edema, no heart murmur Respiratory: no cough, no exercise intolerance, no hemoptysis, no respiratory infections, no shortness of breath, no sputum production, no TB exposure, no wheezing Gastrointestinal: no change in appetite, no dysphagia, no indigestion, no abdominal pain, no bloating, no nausea, no vomiting, no jaundice, no constipation, no diarrhea, no black stools, no bloody stools, no change in bowelhabits Genitourinary: no frequency, no dysuria, no hematuria, no oliguria, no stones, no infections, no urinary retention Musculoskeletal: no myalgia, intermittent left leg swelling and color change, pain/vasculitis--now resolved (prior evaluation by rheumatology), no swelling, no redness, limited range of motion and intermittent pain now both knees since right knee replacement surgery and left knee injury as per H&P. No swelling over prior joint. Integumentary: no rash, no lesions, no petechiae, no bruising, no pruritus. LEFT breast: no changes, no lumps, no tenderness, no swelling RIGHT breast: incision site - well healed mastectomy site, no tenderness, no swelling Neurological: no dizzy, no headache, no numbness, no paraesthesias, no pre- existing deficit, no tingling, no tremors, no weakness Psychiatric: no anxiety, no depression Endocrine: no excessive sweating, no intolerance to heat Hematologic/Lymphatic: no anemia, no bleeds easily, no bruises easily Allergic/Immunologic: no pruritus, no reaction to drugs PMFSH - History Attestation statement: The following information was validated with the patient. Source: Old Records Reviewed - Social History Smoking Status: Never smoker Substance Use Type: None Home Medications & Allergies Allergies Sulfa (Sulfonamide Antibiotics) Allergy (Unknown, Verified 01/21/21 10:28) Hives Home Medications albuterol sulfate 90 mcg/actuation aerosol inhaler 1 puff INHALATION Q6H PRN 01/05/17 [History Confirmed 01/21/21] ascorbic acid (vitamin C) 500 mg tablet (Vitamin C) 500 mg PO DAILY 01/05/17 [History Confirmed 01/21/21] budesonide-formoterol HFA 80 mcg-4.5 mcg/actuation aerosol inhaler (Symbicort) 2puff INHALATION DAILY 01/05/17 [History Confirmed 01/21/21] fluticasone propionate 50 mcg/actuation nasal spray,suspension 2 spry INTRANASALDAILY 01/05/17 [History Confirmed 01/21/21] magnesium oxide 250 mg PO DAILY 01/05/17 [History Confirmed 01/21/21] montelukast 10 mg tablet 10 mg PO DAILY 01/05/17 [History Confirmed 01/21/21] spironolactone 25 mg tablet 25 mg PO BID 01/05/17 [History Confirmed 01/21/21] tiotropium bromide 2.5 mcg/actuation mist for inhalation (Spiriva Respimat) 2 puff INHALATION Q24H 01/05/17 [History Confirmed 01/21/21] biotin 1 mg tablet 1 mg PO DAILY 02/28/17 [History Confirmed 01/21/21] warfarin 7.5 mg tablet 7.5 - 10 mg PO DIRECTED 03/16/17 [History Confirmed 01/21/21] flaxseed oil 1,000 mg capsule 1,000 mg PO BID 03/25/17 [History Confirmed 01/21/21] esomeprazole magnesium 40 mg capsule,delayed release 40 mg PO DAILY PRN #90 cap 03/02/18 [Rx Confirmed 01/21/21] cholecalciferol (vitamin D3) 25 mcg (1,000 unit) capsule (Vitamin D3) 1,000 unitPO DAILY 07/19/18 [History Confirmed 01/21/21] pregabalin 75 mg capsule 75 mg PO BID 90 Days #180 cap 07/17/19 [Rx Confirmed 01/21/21] atorvastatin 20 mg tablet 20 mg PO DAILY 03/12/20 [History Confirmed 01/21/21] Objective - Height/Weight Height/Weight: Height 5 ft 6 in Weight 82.554 kg - Vital Signs Vital Signs: 01/21/21 10:29 Temperature 98.0 F Pulse Rate [Left Brachial] 88 Respiratory Rate 20 Blood Pressure [Left Arm] 146/83 H 02 Sat by Pulse Oximetry 94 L - Pain Right Knee Pain Intensity: 0 Bilateral Foot Pain Intensity: 0 Left Leg Pain Intensity: 0 - Emotional Needs Assessment Emotional Needs Assessment: Emotional Needs Identified? No Physical Exam Narrative: CONSTITUTIONAL: The patient is in no acute distress. HEAD / FACE: Normocephalic. EYES: Pupils are equal and reactive to light. Conjunctivae and lids are benign in appearance. Ocular movement intact. EARS: Hearing grossly intact. NOSE / MOUTH / THROAT: Nose, mouth, tongue and oropharynx exam deferred due to coronavirus pandemic. NECK / THYROID: Neck is supple. Thyroid is symmetrical, without thyromegaly, masses or palpable nodules. LYMPHATIC: No palpable cervical, supraclavicular, axillary, or inguinal adenopathy. RESPIRATORY: Normal to inspection. Lungs clear to auscultation and percussion. No wheezing, rales, rhonchi or rubs. Normal effort. CARDIOVASCULAR: Regular rate and rhythm. No murmurs, gallops, or rubs. VASCULAR: Carotid, radial, femoral and pedal pulses present bilaterally. No bruits. ABDOMEN: Bowel sounds normoactive. Soft, nontender and non-distended. No hepatosplenomegaly. No masses. GENITOURINARY: No CVA tenderness. No suprapubic fullness or tenderness. No groinadenopathy. No evidence of hernias. INTEGUMENTARY: The skin is unremarkable. No rashes. No suspicious lesions BACK / SPINE: The back is nontender. No step-off deformity, no CVA tenderness. MUSCULOSKELETAL: Normal musculature, bilateral knees without effusion, healed right knee replacement with improved range of motion right knee and normal gait. EXTREMITIES: No edema, cyanosis or clubbing. No Ashwini sign. NEUROLOGICAL: Alert and oriented. Cranial nerves intact. No gross motor or sensory deficits. PSYCHIATRIC: No anxiety or evidence of depression. Examination of right postmastectomy site and left breast, bilateral axillary, infraclavicular, supraclavicular and cervical lymph nodes was carefully performed. There was no clinical evidence of cancer recurrence. - ECOG Performance Status ECOG Score: 1 Results - Labs Labs: Diagram of Most Recent CBC and CMP 01/03/17 17:45 01/03/17 17:45 - Impressions Left Screening Full Field digital mammogram with 3-D imaging. Full field digital CC and MLO imaging performed. CAD utilized. COMPARISON: 10/15/19 HISTORY:RIGHT mastectomy in 2014. Yearly checkup. FINDINGS: Scattered fibroglandular densities of the breast parenchyma identified. No developing architectural distortion, developing focal breast asymmetry or developing malignant calcifications identified. Several scattered benign calcifications identified. MM/MM screening mammo LT w/CAD IMPRESSION:No mammographic evidence of malignancy. Routine follow-up recommended in one year. 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 ER negative, VT weak, and HER-2 nonamplified. (1) Breast cancer, right Qualifiers: Estrogen receptor status: negative Patient sex: female 1. 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 ER negative, VT weak, and HER-2 nonamplified. 2. She underwent mastectomy at [facility] in 02/2015. Completed dose dense AC X4 and Taxol X 12 in August 2015. 3. 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 Anastrozole was resumed in 03/2017 4. Saw sheriff's sergeant in [place] for persistent leg pain and swelling (he does not feel this is vasculitis). Symptoms stable. 5. She was noted to have pulmonary nodules and a PET scan was done in January 2017 that showed A. Two small but hypermetabolic left axillary lymph nodes. She subsequently had an EUS and Dr Hess noted that the lymph nodes had actually shrunken is size by the time he saw her. B. Small but fairly intense focus of hypermetabolic activity either in the lower lobe of the right lung adjacent to the esophagus or in the esophagus itself at the level of T9. EGD and EUS in 01/2017 were both negative C. Small pleural-based nodular density demonstrating mild uptake in the lowerlobe of the left lung posteriorly. Our local radiologist said that it was too small for biopsy. D. Colonic diverticulosis and focus of increased uptake in the sigmoid colon versus physiologic activity in the distal left ureter. E. Heterogeneous bony uptake, potentially therapy-induced. --She had a follow-up PET scan in March 2017 showing a groundglass opacity inthe right lower lobe. Our radiologist felt that it was likely infectious or inflammatory. She was referred to pulmonary at [place]. --Followup PET/CT 08/2017 showed resolution of prior ground glass density. No further surveillance required. 6. A focus of increased uptake in the liver of undetermined significance was also identified. On MRI of the liver there was no abnormality found. No evidence of recurrence on most recent mammogram in January 2021. 5 years of Anastrozole therapy was completed in October 2020. Follow-up DEXA scan in July 2020 normal. She has node-negative weekly progesterone positive disease and benefit greater than 5 years of anastrozole is likely minimal. Since she is now 5 years from diagnosis, next f/u in person will be annual in 01/2022 after left mammogram unless new symptoms arise. This is a 15 minute low complexity f/u visit. (2) Screening for osteoporosis Normal screening DEXA scan 07/2018 on aromatase inhibitor therapy--repeat DEXA scan 07/2020 reviewed with the patient and she still has no evidence of osteopenia or osteoporosis. She may take calcium and vitamin D and should not require routine DEXA off AI therapy. (3) Neuropathy We have referred her for acupuncture therapy for residual neuropathy from prior Taxol therapy. Symptoms are overall resolved. - Chemo Plan Chemo Plan (Dose, Rate, Freq): Completed 5 year aromatase inhibitor therapy in 10/2020. Goal of Treatment: Curative - Time with Patient Time Spent with Patient (Follow Up Visit): Less than 20 minutes Coordination of Care & Counseling Time: Greater than 50% of time spent with patient was for coordination of care (as documented) and [id number] counseling of patient and/or family. Dictated By: Kacie Garay MD DD/ [id number] Signed By: <Electronically signed by MD Kacie Garay> 01/21/212024 [facility] Work Phone: [phone]) 589-139204-19-2021 Progress note Author Kacie Garay [facility] July 21, 2020 11:38am Note Date/Time July 21, 2020 9:3 9am [facility] [place] [address] Hem/Onc Follow Up Note - OP Signed Patient: Myla Brothers MR#: [id number] : 1950 Acct:[id number] Age/Sex: 70 / F Type: REG RCR Copies to: Kenyetta Reynolds MD~ Subjective Date/Time of Service: Date of Service: 07/21/2020 Time of Service: 09:36 Chief Complaint: Patient has consented to doxy visit for 4 month follow up visitfor breast cancer and to review bone densitometry test. HPI: Patient had video visit ([email or web address]) today for 4-month follow-up and review of her DEXA scan. Next month she will complete 5 years of anastrozole therapy. She underwent right knee replacement surgery in February 2020 (previously deferred for COVID- 19 pandemic). She has no interval changes in her medical history and last mammogram was in January showing no evidence of recurrence. Since she has no recurrence after 5 years of anastrozole, we will now follow annually ([facility] but patient wishes to return to oncology). We will arrange her annual follow-ups after her annual mammograms in January of each year. She also requested refill of breast prosthesis and mastectomy bra. No breast exam due to telephone visit. No skin changes or breast tenderness. No recent f/u by sheriff's sergeant in [place]--was reported to have vasculitis 4 years ago--now resolved but still has some mild erythema and swelling of left greater than right leg without pain. Receives Anastrozole due to weak VT expression--no significant myalgias/arthralgias or hot flashes. No bowel or bladder complaints. No interval changes in medical history. DEXA scan showed normal bone density 07/17/2018--we reviewed 2-year DEXA scan which revealed normal results. End of 5 years of anastrozole therapy will be in about October 2020 (after completion of current prescription). I will defer next follow-up inperson visit to January 2021 after her annual mammogram, then we will continue annual follow-up. DIAGNOSIS: 1. 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 Tumor was ER negative, VT weak, and HER-2 nonamplified. She underwent right mastectomy at [place] in 02/2015. Completed dose dense AC X4 and Taxol X 12 in August 2015. 2. Anastrozole with calcium and vitamin D started in August 2015. Calcium and vitamin D discontinued 07/2016 Anastrozole stopped in 01/2017 when she developed vasculitis (erythematous rash over legs) although no proven association at this time. Anastrozole was resumed in 03/2017--no complaints 5 years of adjuvant therapy. 3. Evaluated by sheriff's sergeant in [place] (does not believe she had vasculitis)--no recent f/u. 4. She was noted to have pulmonary nodules and a PET scan was done in January 2017 that showed A. Two small but hypermetabolic left axillary lymph nodes. She subsequently had an EUS and Dr Hess noted that the lymph nodes had actually shrunken is size by the time he saw her. B. Small but fairly intense focus of hypermetabolic activity either in the lower lobe of the right lung adjacent to the esophagus or in the esophagus itself at the level of T9. EGD and EUS in 01/2017 were both negative C. Small pleural-based nodular density demonstrating mild uptake in the lowerlobe of the left lung posteriorly. Our local radiologist said that it was too small for biopsy. D. Colonic diverticulosis and focus of increased uptake in the sigmoid colon versus physiologic activity in the distal left ureter. E. Heterogeneous bony uptake, potentially therapy-induced. ---She had a follow-up PET scan in March 2017. This showed a groundglass opacity in the right lower lobe. Our radiologist felt that it was likely infectious or inflammatory. She was referred to pulmonary at [place]. Ground glass opacities resolved on PET/CT 08/2017. 5. A focus of increased uptake in the liver of uncertain significance was also identified. On MRI of the liver there was no abnormality found. 6. Normal DEXA scan 07/27/2018: Lumbar spine T-score +1.6, left femoral neck T- score -0.2, right femoral neck T-score 0. DEXA 07/2020: Lumbar spine T-score +1.6, left femoral neck T-score +0.1, right femoral neck T-score -0.9--all normal. - Summary of Therapies Summary of Therapies: 1. Underwent right mastectomy at [facility] in 02/2015. 2. Completed dose dense AC X4 and Taxol X 12 in August 2015. 3. Anastrozole with calcium and vitamin D started in August 2015--plan 5-year course which will be complete October 2020. ROS Details: All systems reviewed & no additional complaints except as documented Subjective/ROS - Narrative: Constitutional: fair state of general health, no chills, no fatigue, no fever, no night sweats, no weakness, no weight gain, no weight loss Eyes: no change in vision, no double vision ENT: no headaches, no vertigo, no lightheadedness, no nasal congestion, no rhinorrhea, no epistaxis, no gingival bleeding, no sore throat Cardiovascular: no chest pain, no palpitations, no dyspnea on exertion, no edema, no heart murmur Respiratory: no cough, no exercise intolerance, no hemoptysis, no respiratory infections, no shortness of breath, no sputum production, no TB exposure, no wheezing Gastrointestinal: no change in appetite, no dysphagia, no indigestion, no abdominal pain, no bloating, no nausea, no vomiting, no jaundice, no constipation, no diarrhea, no black stools, no bloody stools, no change in bowel habits Genitourinary: no frequency, no dysuria, no hematuria, no oliguria, no stones, no infections, no urinary retention Musculoskeletal: no myalgia, intermittent left leg swelling and color change, pain/vasculitis--now resolved (prior evaluation by rheumatology), no swelling, no redness, limited range of motion and intermittent pain now both knees since right knee replacement surgery and left knee injury as per H&P. No swelling over prior joint. Integumentary: no rash, no lesions, no petechiae, no bruising, no pruritus. LEFT breast: no changes, no lumps, no tenderness, no swelling RIGHT breast: incision site - well healed mastectomy site, no tenderness, no swelling Neurological: no dizzy, no headache, no numbness, no paraesthesias, no pre- existing deficit, no tingling, no tremors, no weakness Psychiatric: no anxiety, no depression Endocrine: no excessive sweating, no intolerance to heat Hematologic/Lymphatic: no anemia, no bleeds easily, no bruises easily Allergic/Immunologic: no pruritus, no reaction to drugs PMFSH - History Attestation statement: The following information was validated with the patient. Source: Old Records Reviewed - Social History Smoking Status: Never smoker Substance Use Type: None Home Medications & Allergies Allergies Sulfa (Sulfonamide Antibiotics) Allergy (Unknown, Verified 03/12/20 09:47) Hives Home Medications albuterol sulfate 1 puff INHALATION Q6H PRN 01/05/17 [History Confirmed 07/21/20] ascorbic acid (vitamin C) [Vitamin C] 500 mg PO DAILY 01/05/17 [History Confirmed 07/21/20] budesonide-formoterol [Symbicort] 2 puff INHALATION DAILY 01/05/17 [History Confirmed 07/21/20] fluticasone propionate 2 spry INTRANASAL DAILY 01/05/17 [History Confirmed 07/21/20] magnesium oxide 250 mg PO DAILY 01/05/17 [History Confirmed 07/21/20] montelukast 10 mg PO DAILY 01/05/17 [History Confirmed 07/21/20] spironolactone 25 mg PO BID 01/05/17 [History Confirmed 07/21/20] tiotropium bromide [Spiriva Respimat] 2 puff INHALATION Q24H 01/05/17 [History Confirmed 07/21/20] biotin 1 mg PO DAILY 02/28/17 [History Confirmed 07/21/20] warfarin 7.5 - 10 mg PO DIRECTED 03/16/17 [History Confirmed 07/21/20] flaxseed oil 1,000 mg PO BID 03/25/17 [History Confirmed 07/21/20] esomeprazole magnesium 40 mg PO DAILY PRN #90 cap 03/02/18 [Rx Confirmed 07/21/20] cholecalciferol (vitamin D3) [Vitamin D3] 1,000 unit PO DAILY 07/19/18 [History Confirmed 07/21/20] pregabalin 75 mg PO BID 90 Days #180 cap 07/17/19 [Rx Confirmed 07/21/20] atorvastatin 20 mg PO DAILY 03/12/20 [History Confirmed 07/21/20] Objective - Height/Weight Height/Weight: Height 5 ft 6 in Weight 81.647 kg - Vital Signs Vital Signs: No vital signs due to video visit. - Pain Left Leg Pain Intensity: 0 Bilateral Foot Pain Intensity: 0 Right Knee Pain Intensity: 0 - Emotional Needs Assessment Emotional Needs Assessment: Emotional Needs Identified? No Physical Exam Narrative: CONSTITUTIONAL: The patient is in no acute distress. HEAD / FACE: Normocephalic. EYES: Pupils are equal and reactive to light. Conjunctivae and lids are benign in appearance. Ocular movement intact. EARS: Hearing grossly intact. PSYCHIATRIC: No anxiety or evidence of depression. Remaining physical exam deferred due to video visit. Results - Labs Labs: Diagram of Most Recent CBC and CMP 01/03/17 17:45 01/03/17 17:45 - Impressions DEXA 07/2020: Lumbar spine T-score +1.6, left femoral neck T-score +0.1, right femoral neck T-score -0.9--all normal. 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 ER negative, VT weak, and HER-2 nonamplified. (1) Breast cancer, right Qualifiers: Estrogen receptor status: negative Patient sex: female 1. 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 ER negative, VT weak, and HER-2 nonamplified. 2. She underwent mastectomy at [facility] in 02/2015. Completed dose dense AC X4 and Taxol X 12 in August 2015. 3. 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 Anastrozole was resumed in 03/2017 4. Saw sheriff's sergeant in [place] for persistent leg pain and swelling (he does not feel this is vasculitis). Symptoms stable. 5. She was noted to have pulmonary nodules and a PET scan was done in January 2017 that showed A. Two small but hypermetabolic left axillary lymph nodes. She subsequently had an EUS and Dr Hess noted that the lymph nodes had actually shrunken is size by the time he saw her. B. Small but fairly intense focus of hypermetabolic activity either in the lower lobe of the right lung adjacent to the esophagus or in the esophagus itself at the level of T9. EGD and EUS in 01/2017 were both negative C. Small pleural-based nodular density demonstrating mild uptake in the lowerlobe of the left lung posteriorly. Our local radiologist said that it was too small for biopsy. D. Colonic diverticulosis and focus of increased uptake in the sigmoid colon versus physiologic activity in the distal left ureter. E. Heterogeneous bony uptake, potentially therapy-induced. --She had a follow-up PET scan in March 2017 showing a groundglass opacity inthe right lower lobe. Our radiologist felt that it was likely infectious or inflammatory. She was referred to pulmonary at [facility]. --Followup PET/CT 08/2017 showed resolution of prior ground glass density. No further surveillance required. 6. A focus of increased uptake in the liver of undetermined significance was also identified. On MRI of the liver there was no abnormality found. No evidence of recurrence on most recent mammogram in January 2020. Tolerating Anastrozole well--5 years of therapy will be completed in October 2020. Follow-up DEXA scan in July 2020 remains normal. She has node-negative weekly progesterone positive disease and benefit greater than 5 years of anastrozole islikely minimal. She requested refill of mastectomy prosthesis and postmastectomy bras which were provided to the patient today. Since she is now 5 years from diagnosis, next f/u in person will be in 01/2021 after left mammogram unless new symptoms arise. If no evidence of recurrence onher January exam and a mammogram we will continue annual follow-up only. This is a 25 minute video f/u visit. (2) Screening for osteoporosis Normal screening DEXA scan 07/2018 on aromatase inhibitor therapy--repeat DEXA scan 07/2020 reviewed with the patient and she still has no evidence of osteopenia or osteoporosis. She may take calcium and vitamin D and will complete aromatase inhibitor therapy in October 2020 as noted above. (3) Neuropathy We have referred her for acupuncture therapy for residual neuropathy from prior Taxol therapy. Symptoms are stable over the past year. (4) Osteoarthritis of knees, bilateral Status post right knee replacement, currently has left knee injury and will be following up with orthopedic surgery on 03/24/2020. Orthopedics has been managing her postoperative pain and she continues physical therapy. (5) Encounter for monitoring anastrozole therapy She has tolerated AI therapy well for nearly 5 years--continue 5 years of adjuvant therapy. - Chemo Plan Chemo Plan (Dose, Rate, Freq): Completion of 5 years of anastrozole 10/2020. Goal of Treatment: Curative - Time with Patient Time Spent with Patient (Follow Up Visit): 25 minutes Coordination of Care & Counseling Time: Greater than 50% of time spent with patient was for coordination of care (as documented) and [id number] counseling of patient and/or family. Dictated By: Kacie Garay MD DD/ [id number] Signed By: <Electronically signed by MD Kacie Garay> 07/21/20 [id number] [facility] Work Phone: [phone] 151-498512-09-2020 Progress note Author Kacie Garay [facility] March 12, 2020 2:49pm Note Date/Time March 12, 2020 9 :56am [facility] [place] [id number] Hem/Onc Follow Up Note - OP Signed Patient: Myla Brothers MR#: [id number] : 1950 Acct:[id number] Age/Sex: 69 / F Type: REG RCR Copies to: Kenyetta Reynolds MD~ Subjective Date/Time of Service: Date of Service: 03/12/2020 Time of Service: 09:54 Chief Complaint: Patient is here today for 6 month follow up for breast cancer. She had mamogram 01-15-2020. No concerns HPI: Patient returns to the clinic for 6 month followup. She underwent right knee replacement surgery 1 month ago (previously deferred for COVID-19 pandemic). Today she presents in a wheelchair as she injured her left knee after hyperextension during a fall yesterday and is seen physical therapy today and orthopedic surgery on March 24. No other medical changes in history. No changes on self breast exam. No skin changes or breast tenderness. No recent f/u by sheriff's sergeant in [place]--was reported to have vasculitis 4 years ago--now resolved but still has some mild erythema and swelling of left greater than right leg without pain. Receives Anastrozole due to weak VT expression--no significant myalgias/arthralgias or hot flashes. No bowel or bladder complaints. No interval changes in medical history. DEXA scan showed normal bone density 07/17/2018--we will order follow-up DEXA scan and perform phone follow-up in July 2020 to review results and we will discuss potential extended adjuvant therapy for 7 years at that time would. End of 5 years of anastrozole therapy will be in about October 2020 (was off therapy for 2 months forvasculitis work-up). I will defer next follow-up in person visit to January 2021 after her annual mammogram. DIAGNOSIS: 1. 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 Tumor was ER negative, VT weak, and HER-2 nonamplified. She underwent right mastectomy at [facility] in 02/2015. Completed dose dense AC X4 and Taxol X 12 in August 2015. 2. Anastrozole with calcium and vitamin D started in August 2015. Calcium and vitamin D discontinued 07/2016 Anastrozole stopped in 01/2017 when she developed vasculitis (erythematous rash over legs) although no proven association at this time. Anastrozole was resumed in 03/2017--consider 7 years of extended adjuvant therapy. 3. Evaluated by sheriff's sergeant in [place] (does not believe she had vasculitis)--no recent f/u. 4. She was noted to have pulmonary nodules and a PET scan was done in January 2017 that showed A. Two small but hypermetabolic left axillary lymph nodes. She subsequently had an EUS and Dr Hess noted that the lymph nodes had actually shrunken is size by the time he saw her. B. Small but fairly intense focus of hypermetabolic activity either in the lower lobe of the right lung adjacent to the esophagus or in the esophagus itself at the level of T9. EGD and EUS in 01/2017 were both negative C. Small pleural-based nodular density demonstrating mild uptake in the lowerlobe of the left lung posteriorly. Our local radiologist said that it was too small for biopsy. D. Colonic diverticulosis and focus of increased uptake in the sigmoid colon versus physiologic activity in the distal left ureter. E. Heterogeneous bony uptake, potentially therapy-induced. ---She had a follow-up PET scan in March 2017. This showed a groundglass opacity in the right lower lobe. Our radiologist felt that it was likely infectious or inflammatory. She was referred to pulmonary at [facility]. Ground glass opacities resolved on PET/CT 08/2017. 5. A focus of increased uptake in the liver of uncertain significance was also identified. On MRI of the liver there was no abnormality found. 6. Normal DEXA scan 07/27/2018: Lumbar spine T-score +1.6, left femoral neck T- score -0.2, right femoral neck T-score 0. Next DEXA due 07/2020. - Summary of Therapies Summary of Therapies: 1. Underwent right mastectomy at [facility] in 02/2015. 2. Completed dose dense AC X4 and Taxol X 12 in August 2015. 3. Anastrozole with calcium and vitamin D started in August 2015--plan 5 to 7-yearcourse. ROS Details: All systems reviewed & no additional complaints except as documented Subjective/ROS - Narrative: Constitutional: fair state of general health, no chills, no fatigue, no fever, no night sweats, no weakness, no weight gain, no weight loss Eyes: no change in vision, no double vision ENT: no headaches, no vertigo, no lightheadedness, no nasal congestion, no rhinorrhea, no epistaxis, no gingival bleeding, no sore throat Cardiovascular: no chest pain, no palpitations, no dyspnea on exertion, no edema, no heart murmur Respiratory: no cough, no exercise intolerance, no hemoptysis, no respiratory infections, no shortness of breath, no sputum production, no TB exposure, no wheezing Gastrointestinal: no change in appetite, no dysphagia, no indigestion, no abdominal pain, no bloating, no nausea, no vomiting, no jaundice, no constipation, no diarrhea, no black stools, no bloody stools, no change in bowelhabits Genitourinary: no frequency, no dysuria, no hematuria, no oliguria, no stones, no infections, no urinary retention Musculoskeletal: no myalgia, intermittent left leg swelling and color change, pain/vasculitis--now resolved (prior evaluation by rheumatology), no swelling, no redness, limited range of motion and intermittent pain now both knees since right knee replacement surgery and left knee injury as per H&P. No swelling over prior joint. Integumentary: no rash, no lesions, no petechiae, no bruising, no pruritus. LEFT breast: no changes, no lumps, no tenderness, no swelling RIGHT breast: incision site - well healed mastectomy site, no tenderness, no swelling Neurological: no dizzy, no headache, no numbness, no paraesthesias, no pre- existing deficit, no tingling, no tremors, no weakness Psychiatric: no anxiety, no depression Endocrine: no excessive sweating, no intolerance to heat Hematologic/Lymphatic: no anemia, no bleeds easily, no bruises easily Allergic/Immunologic: no pruritus, no reaction to drugs PMFSH - History Attestation statement: The following information was validated with the patient. Source: Old Records Reviewed - Social History Smoking Status: Never smoker Substance Use Type: None Home Medications & Allergies Allergies Sulfa (Sulfonamide Antibiotics) Allergy (Unknown, Verified 03/12/20 09:47) Hives Home Medications albuterol sulfate 1 puff INHALATION Q6H PRN 01/05/17 [History Confirmed 03/12/20] ascorbic acid (vitamin C) [Vitamin C] 500 mg PO DAILY 01/05/17 [History Confirmed 03/12/20] budesonide-formoterol [Symbicort] 2 puff INHALATION DAILY 01/05/17 [History Confirmed 03/12/20] fluticasone propionate 2 spry INTRANASAL DAILY 01/05/17 [History Confirmed 03/12/20] magnesium oxide 250 mg PO DAILY 01/05/17 [History Confirmed 03/12/20] montelukast 10 mg PO DAILY 01/05/17 [History Confirmed 03/12/20] spironolactone 25 mg PO BID 01/05/17 [History Confirmed 03/12/20] tiotropium bromide [Spiriva Respimat] 2 puff INHALATION Q24H 01/05/17 [History Confirmed 03/12/20] biotin 1 mg PO DAILY 02/28/17 [History Confirmed 03/12/20] warfarin 7.5 - 10 mg PO DIRECTED 03/16/17 [History Confirmed 03/12/20] flaxseed oil 1,000 mg PO BID 03/25/17 [History Confirmed 03/12/20] esomeprazole magnesium 40 mg PO DAILY PRN #90 cap 03/02/18 [Rx Confirmed 03/12/20] cholecalciferol (vitamin D3) [Vitamin D3] 1,000 unit PO DAILY 07/19/18 [History Confirmed 03/12/20] anastrozole 1 mg PO DAILY #90 tab 06/04/19 [Rx Confirmed 03/12/20] pregabalin 75 mg PO BID 90 Days #180 cap 07/17/19 [Rx Confirmed 03/12/20] atorvastatin 20 mg PO DAILY 03/12/20 [History Confirmed 03/12/20] Objective - Height/Weight Height/Weight: Height 5 ft 6 in Weight 81.647 kg - Vital Signs Vital Signs: 03/12/20 09:48 Temperature 97.7 F Pulse Rate [Left Brachial] 85 Respiratory Rate 20 Blood Pressure [Left Arm] 125/77 02 Sat by Pulse Oximetry 95 - Pain Left Leg Pain Intensity: 10 Bilateral Foot Pain Intensity: 3 Right Knee Pain Intensity: 7 - Emotional Needs Assessment Emotional Needs Assessment: Emotional Needs Identified? No Distress Screening Total 0 Physical Exam Narrative: CONSTITUTIONAL: The patient is in no acute distress. HEAD / FACE: Normocephalic. EYES: Pupils are equal and reactive to light. Conjunctivae and lids are benign in appearance. Ocular movement intact. EARS: Hearing grossly intact. NOSE / MOUTH / THROAT: Nose, mouth, tongue and oropharynx exam deferred due to coronavirus pandemic. NECK / THYROID: Neck is supple. Thyroid is symmetrical, without thyromegaly, masses or palpable nodules. LYMPHATIC: No palpable cervical, supraclavicular, axillary, or inguinal adenopathy. RESPIRATORY: Normal to inspection. Lungs clear to auscultation and percussion. No wheezing, rales, rhonchi or rubs. Normal effort. CARDIOVASCULAR: Regular rate and rhythm. No murmurs, gallops, or rubs. VASCULAR: Carotid, radial, femoral and pedal pulses present bilaterally. No bruits. ABDOMEN: Bowel sounds normoactive. Soft, nontender and non-distended. No hepatosplenomegaly. No masses. GENITOURINARY: No CVA tenderness. No suprapubic fullness or tenderness. No groinadenopathy. No evidence of hernias. INTEGUMENTARY: The skin is unremarkable. No rashes. No suspicious lesions BACK / SPINE: The back is nontender. No step-off deformity, no CVA tenderness. MUSCULOSKELETAL: Normal musculature, bilateral knees without effusion, recent right knee replacement with healing incision, decreased range of motion right knee and antalgic gait due to pain. EXTREMITIES: No edema, cyanosis or clubbing. No Ashwini sign. NEUROLOGICAL: Alert and oriented. Cranial nerves intact. No gross motor or sensory deficits. PSYCHIATRIC: No anxiety or evidence of depression. Examination of right postmastectomy site and left breast, bilateral axillary, infraclavicular, supraclavicular and cervical lymph nodes was carefully performed. There was no clinical evidence of cancer recurrence. - ECOG Performance Status ECOG Score: 1 - Impaired mobility due to right knee replacement, recent left knee injury Results - Labs Labs: Diagram of Most Recent CBC and CMP 01/03/17 17:45 01/03/17 17:45 - Impressions LEFT SCREENING MAMMOGRAMS - FULL FIELD DIGITAL WITH TOMOSYNTHESIS CLINICAL DATA: Right mastectomy in 2014, yearly checkup. COMPARISON: 01/12/2019, 01/11/2018, and 01/03/2017 FINDINGS: Craniocaudal and mediolateral oblique views of the left breast were obtained including the Tomosynthesis images using low-dose digital technique. Moderate amount of] heterogeneously echogenic breast parenchyma is noted. Several scattered benign calcifications are again demonstrated. There are no developing masses, typically malignant calcifications or architectural distortion. MM/MM screening mammo LT w/CAD IMPRESSION: NO MAMMOGRAPHIC EVIDENCE OF MALIGNANCY. ROUTINE FOLLOW-UP IS RECOMMENDED IN ONE YEAR. RESULT CODE: 2 Benign Findings(s) DENSITY CODE: 2 (approximately 25-50% glandular) FOLLOW UP: 1YR The false-negative rate of mammography is approximately 10-percent. Management of a palpable abnormality must be based on clinical grounds. Impression dictated by: Fernando Elam M.D.01/15/2020 12:51 PM Assessment and Plan (1) Breast cancer, right Qualifiers: Estrogen receptor status: negative Patient sex: female 1. 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 ER negative, VT weak, and HER-2 nonamplified. 2. She underwent mastectomy at [facility] in 02/2015. Completed dose dense AC X4 and Taxol X 12 in August 2015. 3. 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 Anastrozole was resumed in 03/2017 4. Saw sheriff's sergeant in [place] for persistent leg pain and swelling (he does not feel this is vasculitis). Symptoms stable. 5. She was noted to have pulmonary nodules and a PET scan was done in January 2017 that showed A. Two small but hypermetabolic left axillary lymph nodes. She subsequently had an EUS and Dr Hess noted that the lymph nodes had actually shrunken is size by the time he saw her. B. Small but fairly intense focus of hypermetabolic activity either in the lower lobe of the right lung adjacent to the esophagus or in the esophagus itself at the level of T9. EGD and EUS in 01/2017 were both negative C. Small pleural-based nodular density demonstrating mild uptake in the lowerlobe of the left lung posteriorly. Our local radiologist said that it was too small for biopsy. D. Colonic diverticulosis and focus of increased uptake in the sigmoid colon versus physiologic activity in the distal left ureter. E. Heterogeneous bony uptake, potentially therapy-induced. --She had a follow-up PET scan in March 2017 showing a groundglass opacity inthe right lower lobe. Our radiologist felt that it was likely infectious or inflammatory. She was referred to pulmonary at [facility]. --Followup PET/CT 08/2017 showed resolution of prior ground glass density. No further surveillance required. 6. A focus of increased uptake in the liver of undetermined significance was also identified. On MRI of the liver there was no abnormality found. No evidence of recurrence on exam. Tolerating Anastrozole well--5 years of therapy will be completed in October 2020. Follow-up DEXA scan in July 2020, phone follow- up to determine whether to continue for 7 years of therapy. Since she is 5 years from diagnosis, next f/u in person will be in 10 months after left mammogram unless new symptoms arise. Annual left mammogram 01/2019 showed no evidence of recurrence--ordered next left mammogram for January 2020 and will follow-up at next visit. This is a 15 minute f/u visit. (2) Neuropathy We have referred her for acupuncture therapy for residual neuropathy from prior Taxol therapy. Symptoms are stable over the past year. (3) Osteoarthritis of knees, bilateral Status post right knee replacement, currently has left knee injury and will be following up with orthopedic surgery on 03/24/2020. Orthopedics has been managing her postoperative pain and she continues physical therapy. (4) Screening for osteoporosis Normal screening DEXA scan 07/2018 on aromatase inhibitor therapy--repeat DEXA scan ordered for 07/22/2020 and I will follow up with phone visit at that time. (5) Encounter for monitoring anastrozole therapy She has tolerated AI therapy well for nearly 5 years--continue 5-7 years of adjuvant therapy. - Chemo Plan Chemo Plan (Dose, Rate, Freq): Continue anastrozole 1 mg daily for 5 to 7-year course. Goal of Treatment: Curative - Time with Patient Coordination of Care & Counseling Time: Greater than 50% of time spent with patient was for coordination of care (as documented) and [id number] counseling of patient and/or family. Dictated By: Kacie Garay MD DD/ [id number] Signed By: <Electronically signed by MD Kacie Garay> 03/12/20 1441 [facility] Work Phone: [phone] 167-226306-03-2020 Progress note Author Kacie Garay [facility] September 05, 2019 1:07pm Note Date/Time September 05, 2019 10:57 am [facility] at [address] [address] Hem/Onc Follow Up Note - OP Signed Patient: Myla Brothers MR#: [id number] : 1950 Acct:[id number] Age/Sex: 69 / F Type: REG RCR Copies to: Kenyetta Reynolds MD~ Subjective Date/Time of Service: Date of Service: 09/05/2019 Time of Service: 10:00 Chief Complaint: Patient is here for routine six month follow up with delay due to Covid 19. Patient is on anastrozole tolerating well. Patient is currently getting right knee injections and will need replacement. HPI: Patient returns to the clinic for 6 month followup. Her only concern is right knee pain, but knee replacement surgery has been deferred for COVID-19 pandemic. No other medical changes in history. No changes on self breast exam. No skin changes or breast tenderness. No recent f/u by sheriff's sergeant in [place]--was reported to have vasculitis 3 years ago--now resolved but still has some mild erythema and swelling of left greater than right leg without pain. Receives Anastrozole due to weak VT expression--no significant myalgias/arthralgias or hot flashes. No bowel or bladder complaints. No interval changes in medical history. We reviewed DEXA scan showing normal bone density 07/17/2018. End of 5 years of anastrozole therapy will be in about October 2020 (was off therapy for 2 months for vasculitis work-up). DIAGNOSIS: 1. 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 Tumor was ER negative, VT weak, and HER-2 nonamplified. She underwent right mastectomy at [place] in 02/2015. Completed dose dense AC X4 and Taxol X 12 in August 2015. 2. Anastrozole with calcium and vitamin D started in August 2015. Calcium and vitamin D discontinued 07/2016 Anastrozole stopped in 01/2017 when she developed vasculitis (erythematous rash over legs) although no proven association at this time. Anastrozole was resumed in 03/2017 3. Evaluated by sheriff's sergeant in [place] (does not believe she had vasculitis)--no recent f/u. 4. She was noted to have pulmonary nodules and a PET scan was done in January 2017 that showed A. Two small but hypermetabolic left axillary lymph nodes. She subsequently had an EUS and Dr Hess noted that the lymph nodes had actually shrunken is size by the time he saw her. B. Small but fairly intense focus of hypermetabolic activity either in the lower lobe of the right lung adjacent to the esophagus or in the esophagus itself at the level of T9. EGD and EUS in 01/2017 were both negative C. Small pleural-based nodular density demonstrating mild uptake in the lowerlobe of the left lung posteriorly. Our local radiologist said that it was too small for biopsy. D. Colonic diverticulosis and focus of increased uptake in the sigmoid colon versus physiologic activity in the distal left ureter. E. Heterogeneous bony uptake, potentially therapy-induced. ---She had a follow-up PET scan in March 2017. This showed a groundglass opacity in the right lower lobe. Our radiologist felt that it was likely infectious or inflammatory. She was referred to pulmonary at [place]. Ground glass opacities resolved on PET/CT 08/2017. 5. A focus of increased uptake in the liver of uncertain significance was also identified. On MRI of the liver there was no abnormality found. 6. Normal DEXA scan 07/27/2018: Lumbar spine T-score +1.6, left femoral neck T- score -0.2, right femoral neck T-score 0. Next DEXA due 07/2020. - Summary of Therapies Summary of Therapies: 1. Underwent right mastectomy at [place] in 02/2015. 2. Completed dose dense AC X4 and Taxol X 12 in August 2015. 3. Anastrozole with calcium and vitamin D started in August 2015--plan 5 to 7-yearcourse. ROS Details: All systems reviewed & no additional complaints except as documented Subjective/ROS - Narrative: Constitutional: fair state of general health, no chills, no fatigue, no fever, no night sweats, no weakness, no weight gain, no weight loss Eyes: no change in vision, no double vision ENT: no headaches, no vertigo, no lightheadedness, no nasal congestion, no rhinorrhea, no epistaxis, no gingival bleeding, no sore throat Cardiovascular: no chest pain, no palpitations, no dyspnea on exertion, no edema, no heart murmur Respiratory: no cough, no exercise intolerance, no hemoptysis, no respiratory infections, no shortness of breath, no sputum production, no TB exposure, no wheezing Gastrointestinal: no change in appetite, no dysphagia, no indigestion, no abdominal pain, no bloating, no nausea, no vomiting, no jaundice, no constipation, no diarrhea, no black stools, no bloody stools, no change in bowelhabits Genitourinary: no frequency, no dysuria, no hematuria, no oliguria, no stones, no infections, no urinary retention Musculoskeletal: no myalgia, intermittent left leg swelling and color change, pain/vasculitis--now resolved, prior evaluation by rheumatology, no swelling, noredness, limited range of motion and intermittent pain right knee only, pending Ortho evaluation for knee replacement surgery (now receiving injections only) Integumentary: no rash, no lesions, no petechiae, no bruising, no pruritus LEFT breast: no changes, no lumps, no tenderness, no swelling RIGHT breast: incision site - well healed mastectomy site, no tenderness, no swelling Neurological: no dizzy, no headache, no numbness, no paraesthesias, no pre- existing deficit, no tingling, no tremors, no weakness Psychiatric: no anxiety, no depression Endocrine: no excessive sweating, no intolerance to heat Hematologic/Lymphatic: no anemia, no bleeds easily, no bruises easily Allergic/Immunologic: no pruritus, no reaction to drugs PMFSH - History Attestation statement: The following information was validated with the patient. Source: Old Records Reviewed - Social History Smoking Status: Never smoker Substance Use Type: None Home Medications & Allergies Allergies Sulfa (Sulfonamide Antibiotics) Allergy (Unknown, Verified 01/07/17 09:33) Hives Home Medications albuterol sulfate 1 puff INHALATION Q6H PRN 01/05/17 [History Confirmed 09/05/19] ascorbic acid (vitamin C) [Vitamin C] 500 mg PO DAILY 01/05/17 [History Confirmed 09/05/19] budesonide-formoterol [Symbicort] 2 puff INHALATION DAILY 01/05/17 [History Confirmed 09/05/19] fluticasone propionate 2 spry INTRANASAL DAILY 01/05/17 [History Confirmed 09/05/19] magnesium oxide 250 mg PO DAILY 01/05/17 [History Confirmed 09/05/19] montelukast 10 mg PO DAILY 01/05/17 [History Confirmed 09/05/19] pravastatin 40 mg PO DAILY 01/05/17 [History Confirmed 09/05/19] spironolactone 25 mg PO BID 01/05/17 [History Confirmed 09/05/19] tiotropium bromide [Spiriva Respimat] 2 puff INHALATION Q24H 01/05/17 [History Confirmed 09/05/19] biotin 1 mg PO DAILY 02/28/17 [History Confirmed 09/05/19] warfarin 7.5 - 10 mg PO DIRECTED 03/16/17 [History Confirmed 09/05/19] flaxseed oil 1,000 mg PO BID 03/25/17 [History Confirmed 09/05/19] esomeprazole magnesium 40 mg PO DAILY PRN #90 cap 03/02/18 [Rx Confirmed 09/05/19] cholecalciferol (vitamin D3) [Vitamin D3] 1,000 unit PO DAILY 07/19/18 [History Confirmed 09/05/19] anastrozole 1 mg PO DAILY #90 tab 06/04/19 [Rx Confirmed 09/05/19] pregabalin 75 mg PO BID 90 Days #180 cap 07/17/19 [Rx Confirmed 09/05/19] Objective - Height/Weight Height/Weight: Height 5 ft 6 in Weight 86.6 kg - Vital Signs Vital Signs: 09/05/19 10:24 Temperature 98.3 F Pulse Rate [Left Brachial] 92 H Respiratory Rate 20 Blood Pressure [Left Arm] 131/83 02 Sat by Pulse Oximetry 99 - Pain Left Leg Pain Intensity: 10 Bilateral Foot Pain Intensity: 3 Right Knee Pain Intensity: 7 - Emotional Needs Assessment Emotional Needs Assessment: Emotional Needs Identified? No Distress Screening Total 0 - ECOG Performance Status ECOG Score: 1 Physical Exam Narrative: CONSTITUTIONAL: The patient is in no acute distress. HEAD / FACE: Normocephalic. EYES: Pupils are equal and reactive to light. Conjunctivae and lids are benign in appearance. Ocular movement intact. EARS: Hearing grossly intact. NOSE / MOUTH / THROAT: Nose, mouth, tongue and oropharynx are benign in appearance. No signs of inflammation. NECK / THYROID: Neck is supple. Thyroid is symmetrical, without thyromegaly, masses or palpable nodules. LYMPHATIC: No palpable cervical, supraclavicular, axillary, or inguinal adenopathy. RESPIRATORY: Normal to inspection. Lungs clear to auscultation and percussion. No wheezing, rales, rhonchi or rubs. Normal effort. CARDIOVASCULAR: Regular rate and rhythm. No murmurs, gallops, or rubs. VASCULAR: Carotid, radial, femoral and pedal pulses present bilaterally. No bruits. ABDOMEN: Bowel sounds normoactive. Soft, nontender and non-distended. No hepatosplenomegaly. No masses. GENITOURINARY: No CVA tenderness. No suprapubic fullness or tenderness. No groinadenopathy. No evidence of hernias. INTEGUMENTARY: The skin is unremarkable. No rashes. No suspicious lesions BACK / SPINE: The back is nontender. No step-off deformity, no CVA tenderness. MUSCULOSKELETAL: Normal musculature, no joint deformities or abnormalities, decreased range of motion right knee and antalgic gait due to pain. EXTREMITIES: No edema, cyanosis or clubbing. No Ashwini sign. NEUROLOGICAL: Alert and oriented. Cranial nerves intact. No gross motor or sensory deficits. PSYCHIATRIC: No anxiety or evidence of depression. Examination of right postmastectomy site and left breast, bilateral axillary, infraclavicular, supraclavicular and cervical lymph nodes was carefully performed. There was no clinical evidence of cancer recurrence. Results - Labs Labs: Diagram of Most Recent CBC and CMP 01/03/17 17:45 01/03/17 17:45 - Impressions Date of Service: 01/12/19 MM/MM screening mammo LT w/CAD: h/o right breast cancer 2016 for annual due 01/20 Copies to: MD Mohsen Degroot MD Hoy, Douglas M MD~ Left Screening Full Field digital mammogram with 3-D imaging. Full field digital CC and MLO imaging performed. CAD utilized. COMPARISON: 01/11/18 HISTORY:Screening FINDINGS: The breast parenchyma is heterogeneously dense. No developing architectural distortion, developing focal breast asymmetry or developing malignant calcifications identified. Scattered benign calcifications are present. Scattered benign lymph nodes are present. MM/MM screening mammo LT w/CAD IMPRESSION:No mammographic evidence of malignancy. Routine follow-up recommended in one year. RESULT CODE: 2 Benign Findings(s) DENSITY CODE: 3 (approximately 51-75% glandular) FOLLOW UP: 1YR THE FALSE-NEGATIVE RATE OF MAMMOGRAPHY IS APPROXIMATELY 10%. IMAGING OF A PALPABLE ABNORMALITY MUST BE BASED ON CLINICAL GROUNDS. PATIENT WAS ENTERED INTO A REMINDER SYSTEM WITH A TARGET DUE DATE FOR THE NEXT MAMMOGRAM. Impression dictated by: José Sandoval M.D.01/12/2019 10:46 AM Assessment and Plan (1) Breast cancer, right Qualifiers: Estrogen receptor status: negative Patient sex: female 1. 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 ER negative, VT weak, and HER-2 nonamplified. 2. She underwent mastectomy at [place] in 02/2015. Completed dose dense AC X4 and Taxol X 12 in August 2015. 3. 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 Anastrozole was resumed in 03/2017 4. Saw sheriff's sergeant in [place] for persistent leg pain and swelling (he does not feel this is vasculitis). Symptoms stable. 5. She was noted to have pulmonary nodules and a PET scan was done in January 2017 that showed A. Two small but hypermetabolic left axillary lymph nodes. She subsequently had an EUS and Dr Hess noted that the lymph nodes had actually shrunken is size by the time he saw her. B. Small but fairly intense focus of hypermetabolic activity either in the lower lobe of the right lung adjacent to the esophagus or in the esophagus itself at the level of T9. EGD and EUS in 01/2017 were both negative C. Small pleural-based nodular density demonstrating mild uptake in the lowerlobe of the left lung posteriorly. Our local radiologist said that it was too small for biopsy. D. Colonic diverticulosis and focus of increased uptake in the sigmoid colon versus physiologic activity in the distal left ureter. E. Heterogeneous bony uptake, potentially therapy-induced. --She had a follow-up PET scan in March 2017 showing a groundglass opacity inthe right lower lobe. Our radiologist felt that it was likely infectious or inflammatory. She was referred to pulmonary at [place]. --Followup PET/CT 08/2017 showed resolution of prior ground glass density. No further surveillance required. 6. A focus of increased uptake in the liver of undetermined significance was also identified. On MRI of the liver there was no abnormality found. No evidence of recurrence on exam. Tolerating Anastrozole well--5 years of therapy will be completed in October 2020, then will consider whether to continue for 7 years of therapy. Since she is 4 1/2 years from diagnosis, next f/u in 6 months unless new symptoms arise. Annual left mammogram 01/2019 showed no evidence of recurrence--ordered next left mammogram for January 2020 and will follow-up at next visit. DEXA normal 07/2018--will repeat in 2 years This is a 15 minute f/u visit. (2) Neuropathy We have referred her for acupuncture therapy for residual neuropathy from prior Taxol therapy. Symptoms are stable over the past year. (3) Cutaneous leukocytoclastic angiitis She had recurrent mild erythema, swelling, and discomfort of her left lower extremity. This was initially diagnosed as vasculitis but per second opinion from a sheriff's sergeant and display director in [place] this is not vasculitis. They told her it was skin pigmentation from prior infection. Symptoms have significantly improved over the past year. May return rheumatology f/u as needed. (4) History of hypercalcemia In the past she was found to have hypercalcemia with low normal PTH, borderline increased ionized calcium, no bone metastases, no chest lesions (workup 08/2016),low PTH-RP, no clinically palpable neck mass, normal calcitonin We plan to keep an eye on her calcium level but tends to run slightly on the higher side. Because of her previous mild hypercalcemia she is not on calcium and vitamin D. (5) Encounter for monitoring anastrozole therapy She has tolerated AI therapy well for over 4 1/2 years--continue 5-7 years of adjuvant therapy. - Chemo Plan Chemo Plan (Dose, Rate, Freq): Anastrozole 1mg daily to complete 5-7 years of adjuvant therapy. Goal of Treatment: Curative - Time with Patient Coordination of Care & Counseling Time: Greater than 50% of time spent with patient was for coordination of care (as documented) and [id number] counseling of patient and/or family. Dictated By: Kacie Garay MD DD/ [id number] Signed By: <Electronically signed by MD Kacie Garay> 09/05/19 [address] [facility] Work Phone: 1([phone]) 196-337011-21-2019 History of Past illness Narrative* Problem Noted Date Resolved Date Combined forms of age-related cataract of both e yes 02/22/2019 03/21/2019 documented as of this encounter (statuses as of 03/11/2022) [facility]11-21-2019 History of Past illness Narrative* Problem Noted Date Resolved Date Combined forms of age-related cataract of both e yes 02/22/2019 03/21/2019 documented as of this encounter (statuses as of 07/05/2022) [facility] History of Past illness Narrative* Problem Noted Date Diagnosed Date Resolved Date Combined forms of age-relate d cataract of both eyes 02/22/2019 03/21/2019 documented as of this encounter (statuses as of 01/17/2023) [facility]-21-2019 Progress note Author Kacie Garay [facility] January 22, 2019 9:28pm Note Date/Time January 22, 2019 1 0:40[facility] [place] [address] Hem/Onc Follow Up Note - OP Signed Patient: Myla Brothers MR#: [id number] : 1950 Acct:[id number] Age/Sex: 68 / F Type: REG RCR Copies to: Kenyetta Reynolds MD~ Subjective Date/Time of Service: Date of Service: 01/22/2019 Time of Service: 10:39 Chief Complaint: Patient is here for routine follow up history of breast cancer on Anastrozole with mammogram for review, no concerns voiced. HPI: Patient returns to the clinic for 6 month followup. No changes on self breast exam. No skin changes or breast tenderness. [place]was reported to have vasculitis 2 1/2 years ago--now resolved. Receives Anastrozole due to weak VT expression--no significant myalgias/arthralgias or hot flashes. No bowel or bladder complaints. No interval changes in medical history. We reviewed DEXA scan showing normal bone density 07/17/2018. DIAGNOSIS: 1. 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 Tumor was ER negative, VT weak, and HER-2 nonamplified. She underwent right mastectomy at [place] in 02/2015. Completed dose dense AC X4 and Taxol X 12 in August 2015. 2. Anastrozole with calcium and vitamin D started in August 2015. Calcium and vitamin D discontinued 07/2016 Anastrozole stopped in 01/2017 when she developed vasculitis (erythematous rash over legs) although no proven association at this time. Anastrozole was resumed in 03/2017 3. Evaluated by sheriff's sergeant in [place] (does not believe she had vasculitis)--no recent f/u. 4. She was noted to have pulmonary nodules and a PET scan was done in January 2017 that showed A. Two small but hypermetabolic left axillary lymph nodes. She subsequently had an EUS and Dr Hess noted that the lymph nodes had actually shrunken is size by the time he saw her. B. Small but fairly intense focus of hypermetabolic activity either in the lower lobe of the right lung adjacent to the esophagus or in the esophagus itself at the level of T9. EGD and EUS in 01/2017 were both negative C. Small pleural-based nodular density demonstrating mild uptake in the lowerlobe of the left lung posteriorly. Our local radiologist said that it was too small for biopsy. D. Colonic diverticulosis and focus of increased uptake in the sigmoid colon versus physiologic activity in the distal left ureter. E. Heterogeneous bony uptake, potentially therapy-induced. ---She had a follow-up PET scan in March 2017. This showed a groundglass opacity in the right lower lobe. Our radiologist felt that it was likely infectious or inflammatory. She was referred to pulmonary at [place]. Ground glass opacities resolved on PET/CT 08/2017. 5. A focus of increased uptake in the liver of uncertain significance was also identified. On MRI of the liver there was no abnormality found. 6. Normal DEXA scan 07/27/2018: Lumbar spine T-score +1.6, left femoral neck T- score -0.2, right femoral neck T-score 0. Next DEXA due 07/2020. - Summary of Therapies Summary of Therapies: 1. Underwent right mastectomy at [place] in 02/2015. 2. Completed dose dense AC X4 and Taxol X 12 in August 2015. 3. Anastrozole with calcium and vitamin D started in August 2015--plan 5-7-year course. ROS Details: All systems reviewed & no additional complaints except as documented Subjective/ROS - Narrative: Constitutional: fair state of general health, no chills, no fatigue, no fever, no night sweats, no weakness, no weight gain, no weight loss Eyes: no change in vision, no double vision ENT: no headaches, no vertigo, no lightheadedness, no nasal congestion, no rhinorrhea, no epistaxis, no gingival bleeding, no sore throat Cardiovascular: no chest pain, no palpitations, no dyspnea on exertion, no edema, no heart murmur Respiratory: no cough, no exercise intolerance, no hemoptysis, no respiratory infections, no shortness of breath, no sputum production, no TB exposure, no wheezing Gastrointestinal: no change in appetite, no dysphagia, no indigestion, no abdominal pain, no bloating, no nausea, no vomiting, no jaundice, no constipation, no diarrhea, no black stools, no bloody stools, no change in bowel habits Genitourinary: no frequency, no dysuria, no hematuria, no oliguria, no stones, no infections, no urinary retention Musculoskeletal: no joint pain, no myalgia, no other - intermittent left leg swelling and color change, pain/vasculitis--now resolved, prior evaluation by rheumatology, no swelling, no redness, no limited ROM Integumentary: no rash, no lesions, no petechiae, no bruising, no pruritus LEFT breast: no changes, no lumps, no tenderness, no swelling RIGHT breast: incision site - well healed mastectomy site, no tenderness, no swelling Neurological: no dizzy, no headache, no numbness, no paraesthesias, no pre- existing deficit, no tingling, no tremors, no weakness Psychiatric: no anxiety, no depression Endocrine: no excessive sweating, no intolerance to heat Hematologic/Lymphatic: no anemia, no bleeds easily, no bruises easily Allergic/Immunologic: no pruritus, no reaction to drugs PMF - History Attestation statement: The following information was validated with the patient. - Social History Smoking Status: Never smoker Substance Use Type: None Home Medications & Allergies Allergies Sulfa (Sulfonamide Antibiotics) Allergy (Unknown, Verified 01/07/17 09:33) Hives Home Medications albuterol sulfate 1 puff INHALATION Q6H PRN 01/05/17 [History Confirmed 01/22/19] ascorbic acid (vitamin C) [Vitamin C] 500 mg PO DAILY 01/05/17 [History Confirmed 01/22/19] budesonide-formoterol [Symbicort] 2 puff INHALATION DAILY 01/05/17 [History Confirmed 01/22/19] fluticasone propionate 2 spry INTRANASAL DAILY 01/05/17 [History Confirmed 01/22/19] magnesium oxide 250 mg PO DAILY 01/05/17 [History Confirmed 01/22/19] montelukast 10 mg PO DAILY 01/05/17 [History Confirmed 01/22/19] pravastatin 40 mg PO DAILY 01/05/17 [History Confirmed 01/22/19] pregabalin [Lyrica] 75 mg PO BID 01/05/17 [History Confirmed 01/22/19] spironolactone 25 mg PO BID 01/05/17 [History Confirmed 01/22/19] tiotropium bromide [Spiriva Respimat] 2 puff INHALATION Q24H 01/05/17 [History Confirmed 01/22/19] biotin 1 mg PO DAILY 02/28/17 [History Confirmed 01/22/19] warfarin 7.5 - 10 mg PO DIRECTED 03/16/17 [History Confirmed 01/22/19] flaxseed oil 1,000 mg PO BID 03/25/17 [History Confirmed 01/22/19] esomeprazole magnesium 40 mg PO DAILY PRN #90 cap 03/02/18 [Rx Confirmed 01/22/19] anastrozole 1 mg PO DAILY #90 tab 04/18/18 [Rx Confirmed 01/22/19] cholecalciferol (vitamin D3) [Vitamin D3] 1,000 unit PO DAILY 07/19/18 [History Confirmed 01/22/19] Objective - Height/Weight Height/Weight: Height 5 ft 6 in Weight 86.636 kg - Vital Signs Vital Signs: 01/22/19 10:33 Temperature 97.8 F Pulse Rate [Left Brachial] 76 Respiratory Rate 20 Blood Pressure [Left Arm] 136/76 02 Sat by Pulse Oximetry 95 - Pain Bilateral Foot Pain Intensity: 3 Left Leg Pain Intensity: 10 - Emotional Needs Assessment Emotional Needs Assessment: Emotional Needs Identified? No Distress Screening Total 0 - ECOG Performance Status ECOG Score: 1 Physical Exam Narrative: CONSTITUTIONAL: The patient is in no acute distress. HEAD / FACE: Normocephalic. EYES: Pupils are equal and reactive to light. Conjunctivae and lids are benign in appearance. Ocular movement intact. EARS: Hearing grossly intact. NOSE / MOUTH / THROAT: Nose, mouth, tongue and oropharynx are benign in appearance. No signs of inflammation. NECK / THYROID: Neck is supple. Thyroid is symmetrical, without thyromegaly, masses or palpable nodules. LYMPHATIC: No palpable cervical, supraclavicular, axillary, or inguinal adenopathy. RESPIRATORY: Normal to inspection. Lungs clear to auscultation and percussion. No wheezing, rales, rhonchi or rubs. Normal effort. CARDIOVASCULAR: Regular rate and rhythm. No murmurs, gallops, or rubs. VASCULAR: Carotid, radial, femoral and pedal pulses present bilaterally. No bruits. ABDOMEN: Bowel sounds normoactive. Soft, nontender and non-distended. No hepatosplenomegaly. No masses. GENITOURINARY: No CVA tenderness. No suprapubic fullness or tenderness. No groinadenopathy. No evidence of hernias. INTEGUMENTARY: The skin is unremarkable. No rashes. No suspicious lesions BACK / SPINE: The back is nontender. MUSCULOSKELETAL: Normal musculature, no joint deformities or abnormalities, normal range of motion for all four extremities. EXTREMITIES: No edema, cyanosis or clubbing. No Ashwini sign. NEUROLOGICAL: Alert and oriented. Cranial nerves intact. No gross motor or sensory deficits. PSYCHIATRIC: No anxiety or evidence of depression. Examination of right postmastectomy site and left breast, bilateral axillary, infraclavicular, supraclavicular and cervical lymph nodes was carefully performed. There was no clinical evidence of cancer recurrence. Results - Labs Labs: Diagram of Most Recent CBC and CMP 01/03/17 17:45 01/03/17 17:45 - Impressions Date of Service: 01/12/19 MM/MM screening mammo LT w/CAD: h/o right breast cancer 2016 for annual due 01/20 Copies to: MD Mohsen Degroot MD Hoy, Douglas M MD~ Left Screening Full Field digital mammogram with 3-D imaging. Full field digital CC and MLO imaging performed. CAD utilized. COMPARISON: 01/11/18 HISTORY:Screening FINDINGS: The breast parenchyma is heterogeneously dense. No developing architectural distortion, developing focal breast asymmetry or developing malignant calcifications identified. Scattered benign calcifications are present. Scattered benign lymph nodes are present. MM/MM screening mammo LT w/CAD IMPRESSION:No mammographic evidence of malignancy. Routine follow-up recommended in one year. RESULT CODE: 2 Benign Findings(s) DENSITY CODE: 3 (approximately 51-75% glandular) FOLLOW UP: 1YR THE FALSE-NEGATIVE RATE OF MAMMOGRAPHY IS APPROXIMATELY 10%. IMAGING OF A PALPABLE ABNORMALITY MUST BE BASED ON CLINICAL GROUNDS. PATIENT WAS ENTERED INTO A REMINDER SYSTEM WITH A TARGET DUE DATE FOR THE NEXT MAMMOGRAM. Impression dictated by: José Sandoval M.D.01/12/2019 10:46 AM Assessment and Plan (1) Breast cancer, right Qualifiers: Estrogen receptor status: negative Patient sex: female 1. 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 ER negative, VT weak, and HER-2 nonamplified. 2. She underwent mastectomy at [facility] in 02/2015. Completed dose dense AC X4 and Taxol X 12 in August 2015. 3. 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 Anastrozole was resumed in 03/2017 4. Saw sheriff's sergeant in [place] for persistent leg pain and swelling (he does not feel this is vasculitis). Symptoms stable. 5. She was noted to have pulmonary nodules and a PET scan was done in January 2017 that showed A. Two small but hypermetabolic left axillary lymph nodes. She subsequently had an EUS and Dr Hess noted that the lymph nodes had actually shrunken is size by the time he saw her. B. Small but fairly intense focus of hypermetabolic activity either in the lower lobe of the right lung adjacent to the esophagus or in the esophagus itself at the level of T9. EGD and EUS in 01/2017 were both negative C. Small pleural-based nodular density demonstrating mild uptake in the lowerlobe of the left lung posteriorly. Our local radiologist said that it was too small for biopsy. D. Colonic diverticulosis and focus of increased uptake in the sigmoid colon versus physiologic activity in the distal left ureter. E. Heterogeneous bony uptake, potentially therapy-induced. --She had a follow-up PET scan in March 2017 showing a groundglass opacity inthe right lower lobe. Our radiologist felt that it was likely infectious or inflammatory. She was referred to pulmonary at [facility]. --Followup PET/CT 08/2017 showed resolution of prior ground glass density. No further surveillance required. 6. A focus of increased uptake in the liver of undetermined significance was also identified. On MRI of the liver there was no abnormality found. No evidence of recurrence on exam. Tolerating Anastrozole well. Since she is nearly 4 years from diagnosis, next f/u in 6 months unless new symptoms arise. Annual left mammogram shows no evidence of recurrence. DEXA normal 07/2018--willrepeat in 2 years Next f/u in 6 months, sooner prn. This is a 15 minute f/u visit. (2) Neuropathy We have referred her for acupuncture therapy for residual neuropathy from prior Taxol therapy. Symptoms are stable over the past 6 months. (3) Cutaneous leukocytoclastic angiitis She has recurrent mild erythema, swelling, and discomfort of her left lower extremity. This was initially diagnosed as vasculitis but per second opinion from a sheriff's sergeant and display director in [place] this is not vasculitis. They told her it was skin pigmentation from prior infection. Symptoms have significantly improved over the past year. May return rheumatology f/u as needed. (4) Screening for osteoporosis Normal screening DEXA scan 07/2018 on aromatase inhibitor therapy--repeat in 2 years. (5) History of hypercalcemia In the past she was found to have hypercalcemia with low normal PTH, borderline increased ionized calcium, no bone metastases, no chest lesions (workup 08/2016),low PTH-RP, no clinically palpable neck mass, normal calcitonin We plan to keep an eye on her calcium level but tends to run slightly on the higher side. Because of her mild hypercalcemia she is not on calcium and vitamin D. (6) Encounter for monitoring anastrozole therapy She has tolerated AI therapy well for over 4 years--continue 5-7 years of adjuvant therapy. - Chemo Plan Chemo Plan (Dose, Rate, Freq): Anastrozole 1mg daily to complete 5-7 years of adjuvant therapy. Goal of Treatment: Curative - Time with Patient Coordination of Care & Counseling Time: Greater than 50% of time spent with patient was for coordination of care (as documented) and [id number] counseling of patient and/or family. Dictated By: Kacie Garay MD DD/ [id number] Signed By: <Electronically signed by MD Kacie Garay> 01/22/197 [facility] Work Phone: [phone] Progress note Author Kacie Garay [facility] July 19, 2018 8:36pm Note Date/Time July 19, 2018 10: 48am [facility] [place] [address] Hem/Onc Follow Up Note - OP Signed Patient: Myla Brothers MR#: [id number] : 1950 Acct:[id number] Age/Sex: 68 / F Type: REG RCR Copies to: Kenyetta Reynolds MD~ Subjective Date/Time of Service: Date of Service: 07/19/2018 Time of Service: 10:48 Chief Complaint: Patient is here for routine follow up history of right breast cancer continues with Anastrozole, no concerns voiced. Recent Dexascan for review. - Diagnosis DIAGNOSIS: 1. 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 Tumor was ER negative, VT weak, and HER-2 nonamplified. She underwent right mastectomy at [facility] in 02/2015. Completed dose dense AC X4 and Taxol X 12 in August 2015. 2. Anastrazole with calcium and vitamin D started in August 2015, Calcium and vitamin D discontinued 07/2016 Anastrozole stopped in 01/2017 when she developed vasculitis (erythematous rash over legs) although no proven association at this time. Anastrozole was resumed in 03/2017 3. Evaluated by sheriff's sergeant in [place] (does not believe she had vasculitis)--no recent f/u. 4. She was noted to have pulmonary nodules and a PET scan was done in January 2017 that showed A. Two small but hypermetabolic left axillary lymph nodes. She subsequently had an EUS and Dr Hess noted that the lymph nodes had actually shrunken is size by the time he saw her. B. Small but fairly intense focus of hypermetabolic activity either in the lower lobe of the right lung adjacent to the esophagus or in the esophagus itself at the level of T9. EGD and EUS in 01/2017 were both negative C. Small pleural-based nodular density demonstrating mild uptake in the lowerlobe of the left lung posteriorly. Our local radiologist said that it was too small for biopsy. D. Colonic diverticulosis and focus of increased uptake in the sigmoid colon versus physiologic activity in the distal left ureter. E. Heterogeneous bony uptake, potentially therapy-induced. ---She had a follow-up PET scan in March 2017. This showed a groundglass opacity in the right lower lobe. Our radiologist felt that it was likely infectious or inflammatory. She was referred to pulmonary at [facility]. Ground glass opacities resolved on PET/CT 08/2017. 5. A focus of increased uptake in the liver of uncertain significance was also identified. On MRI of the liver there was no abnormality found. 6. Normal DEXA scan 07/27/2018: Lumbar spine T-score +1.6, left femoral neck T- score -0.2, right femoral neck T-score 0 HPI: Patient returns to the clinic for 6 month followup. No changes on self breast exam. No skin changes or breast tenderness. [place]was reported to have vasculitis 2 years ago--now resolved. Receives Anastrozole due to weak VT expression--no significant myalgias/arthralgias or hot flashes. No bowel or bladder complaints. No interval changes in medical history. We reviewed DEXA scan showing normal bone density 07/17/2018. - Summary of Therapies Summary of Therapies: 1. Underwent right mastectomy at [facility] in 02/2015. 2. Completed dose dense AC X4 and Taxol X 12 in August 2015. 3. Anastrozole with calcium and vitamin D started in August 2015--plan 5-7-year course. ROS Details: All systems reviewed & no additional complaints except as documented Constitutional: fair state of general health, no chills, no fatigue, no fever, no night sweats, no weakness, no weight gain, no weight loss Eyes: no change in vision, no double vision ENT: no headaches, no vertigo, no lightheadedness, no nasal congestion, no rhinorrhea, no epistaxis, no gingival bleeding, no sore throat Cardiovascular: no chest pain, no palpitations, no dyspnea on exertion, no edema, no heart murmur Respiratory: no cough, no exercise intolerance, no hemoptysis, no respiratory infections, no shortness of breath, no sputum production, no TB exposure, no wheezing Gastrointestinal: no change in appetite, no dysphagia, no indigestion, no abdominal pain, no bloating, no nausea, no vomiting, no jaundice, no constipation, no diarrhea, no black stools, no bloody stools, no change in bowelhabits Genitourinary: no frequency, no dysuria, no hematuria, no oliguria, no stones, no infections, no urinary retention Musculoskeletal: no joint pain, no myalgia, no other - intermittent left leg swelling and color change, pain/vasculitis--now improved, prior evaluation by rheumatology, no swelling, no redness, no limited ROM Integumentary: no rash, no lesions, no petechiae, no bruising, no pruritis LEFT breast: no changes, no lumps, no tenderness, no swelling RIGHT breast: incision site - well healed mastectomy site, no tenderness, no swelling Neurological: no dizzy, no headache, no numbness, no parasthesias, no pre- existing deficit, no tingling, no tremors, no weakness Psychiatric: no anxiety, no depression Endocrine: no excessive sweating, no intolerance to heat Hematologic/Lymphatic: no anemia, no bleeds easily, no bruises easily Allergic/Immunologic: no pruritis, no reaction to drugs PMFSH - History Attestation statement: The following information was validated with the patient. Source: Old Records Reviewed - Social History Smoking Status: Never smoker Home Medications & Allergies Allergies Allergy/AdvReac Type Severity Reaction Status Date / Time Sulfa (Sulfonamide Allergy Unknown Hives Verified 01/07/17 09:33 Antibiotics) Home Medications Medication Instructions Recorded Confirmed Type albuterol sulfate 1 puff INHALATION Q6H PRN 01/05/17 07/19/18 History ascorbic acid (vitamin C) [Vitamin 500 mg PO DAILY 01/05/17 07/19/18 History C] budesonide-formoterol [Symbicort] 2 puff INHALATION DAILY 01/05/17 07/19/18 History fluticasone propionate 2 spry INTRANASAL DAILY 01/05/17 07/19/18 History magnesium oxide 250 mg PO DAILY 01/05/17 07/19/18 History montelukast 10 mg PO DAILY 01/05/17 07/19/18 History pravastatin 40 mg PO DAILY 01/05/17 07/19/18 History pregabalin [Lyrica] 75 mg PO BID 01/05/17 07/19/18 History spironolactone 25 mg PO BID 01/05/17 07/19/18 History tiotropium bromide [Spiriva 2 puff INHALATION Q24H 01/05/17 07/19/18 History Respimat] biotin 1 mg PO DAILY 02/28/17 07/19/18 History warfarin 7.5 - 10 mg PO DIRECTED 03/16/17 07/19/18 History flaxseed oil 1,000 mg PO BID 03/25/17 07/19/18 History esomeprazole magnesium 40 mg PO DAILY PRN #90 cap 03/02/18 07/19/18 Rx anastrozole 1 mg PO DAILY #90 tab 04/18/18 07/19/18 Rx cholecalciferol (vitamin D3) 1,000 unit PO DAILY 07/19/18 07/19/18 History [Vitamin D3] Objective - Resuscitation Status Resuscitation Status: Full Code - Height/Weight Height/Weight: Height 5 ft 6 in Weight 83.915 kg - Vital Signs Vital Signs: 07/19/18 10:40 Temperature 98.4 F Pulse Rate [Left Brachial] 102 H Respiratory Rate 20 Blood Pressure [Left Arm] 129/80 02 Sat by Pulse Oximetry 94 L - Pain Bilateral Foot Pain Intensity: 3 Left Leg Pain Intensity: 10 - Emotional Needs Assessment Emotional Needs Assessment: Emotional Needs Identified? No Distress Screening Total 0 - ECOG Performance Status ECOG Score: 1 Physical Exam - Constitutional no acute distress, average body habitus, no chronically ill appearing, cooperative - Routine HEENT Exam Head: normocephalic, atraumatic, no cushingoid faces Eye: EOMI, PERRL, no conjunctival injection, no scleral icterus ENT: mucous membranes moist, oropharynx clear, dentition normal - Routine Neck Exam supple, full ROM, no lymphadenopathy, no thyromegaly, no tenderness - Routine Chest/Breast/Axilla Exam Chest wall: no tenderness, no mass Breast: no tenderness, no induration, no mass, no swelling, no rashes, right mastectomy - well healed, nontender Axillae: no lymphadenopathy, no mass - Routine Respiratory Exam no accessory muscle use, no decreased breath sounds, CTA bilaterally, no respiratory distress, no rhonchi, no wheezes, no crackles - Routine Cardiovascular Exam RRR, no murmur, no gallop, no irregular rhythm - Routine Abdominal Exam soft, normoactive bowel sounds, no tenderness, no distended, no organomegaly, nomass - Routine Exam Groin: Absent: inguinal lymphadenopathy - Routine Extremities Exam Present: full ROM, pulses intact, normal capillary refill. Absent: cyanosis, clubbing, edema - prior left leg edema and erythema resolved, calf tenderness, tenderness - resolved left leg pain - Routine Back/Spine/Pelvis Exam Back/Spine: Present: full ROM. Absent: CVA tenderness, paraspinal tenderness, vertebral tenderness - Routine Skin Exam Present: intact, warm, normal turgor. Absent: petechiae, urticaria, lesions, jaundice, rash, ecchymosis - Routine Neurological Exam Present: alert, oriented X3, CN II-XII intact, normal reflexes, moving all extremities, vision grossly intact, hearing grossly intact, normal speech. Absent: sensory deficit, motor deficit, abnormal gait, tremors - Routine Psychiatric Exam Present: normal affect, normal thought process, cooperative. Absent: depressed,anxious Results - Labs Labs: Diagram of Most Recent CBC and CMP 01/03/17 17:45 01/03/17 17:45 - Impressions Any impression(s) listed above is documentation that was entered by the reading physician into a diagnostic report(s) for Myla Brothers. I have reviewed the report(s) and am incorporating any findings in the treatment plan of this patient where applicable. DEXA scan 07/17/2018 reviewed--normal. Annual bilateral mammography at [facility] 01/2018--ordered 6 month f/u mammogram prior to next f/u. Assessment and Plan (1) Breast cancer, right Qualifiers: Estrogen receptor status: negative Patient sex: female 1. 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 ER negative, VT weak, and HER-2 nonamplified. 2. She underwent mastectomy at [facility] in 02/2015. Completed dose dense AC X4 and Taxol X 12 in August 2015. 3. Anastrazole with calcium and vitamin D started in August 2015, Calcium and vitamin D discontinued 07/2016 Anastrozole stopped in 01/2017 when she developed vasculitis although there is no proven association at this time. Anastrozole was resumed in 03/2017 4. Seeing sheriff's sergeant in [place] for persistent leg pain and swelling (he doesnot feel this is vasculitis). Symptoms stable. 5. She was noted to have pulmonary nodules and a PET scan was done in January 2017 that showed A. Two small but hypermetabolic left axillary lymph nodes. She subsequently had an EUS and Dr Hess noted that the lymph nodes had actually shrunken is size by the time he saw her. B. Small but fairly intense focus of hypermetabolic activity either in the lower lobe of the right lung adjacent to the esophagus or in the esophagus itself at the level of T9. EGD and EUS in 01/2017 were both negative C. Small pleural-based nodular density demonstrating mild uptake in the lowerlobe of the left lung posteriorly. Our local radiologist said that it was too small for biopsy. D. Colonic diverticulosis and focus of increased uptake in the sigmoid colon versus physiologic activity in the distal left ureter. E. Heterogeneous bony uptake, potentially therapy-induced. --She had a follow-up PET scan in March 2017 showing a groundglass opacity inthe right lower lobe. Our radiologist felt that it was likely infectious or inflammatory. She was referred to pulmonary at [facility]. --Followup PET/CT 08/2017 showed resolution of prior ground glass density. No further surveillance required. 6. A focus of increased uptake in the liver of undetermined significance was also identified. On MRI of the liver there was no abnormality found. No evidence of recurrence on exam. Tolerating Anastrozole well. Since she is over 3 years from diagnosis, next f/u in 6 months unless new symptoms arise. Annual mammogram at [facility] prior to next followup. DEXA normal--f/u in 6 months. This is a 30 minute f/u visit to address comorbid issues. (2) Neuropathy We have referred her for acupuncture therapy for residual neuropathy from prior Taxol therapy. Symptoms are stable over the past 6 months. (3) Cutaneous leukocytoclastic angiitis She has recurrent mild erythema, swelling, and discomfort of her left lower extremity. This was initially diagnosed as vasculitis but per second opinion from a sheriff's sergeant and display director in [place] this is not vasculitis. They told her it was skin pigmentation from prior infection. Symptoms have significantly improved over the past 6 months. May return rheumatology f/u as needed. (4) Screening for osteoporosis Normal screening DEXA scan on aromatase inhibitor therapy--repeat in 2 years. (5) History of hypercalcemia In the past she was found to have hypercalcemia with low normal PTH, borderline increased ionized calcium, no bone metastases, no chest lesions (workup 08/2016),low PTH-RP, no clinically palpable neck mass, normal calcitonin We plan to keep an eye on her calcium level but tends to run slightly on the higher side. Because of her mild hypercalcemia she is not on calcium and vitamin D. - Chemo Plan Chemo Plan (Dose, Rate, Freq): Anastrozole 1mg daily x 5-7 years Goal of Treatment: Curative - Time with Patient Total Time Spent with Patient: 30 min Coordination of Care & Counseling Time: Greater than 50% of time spent with patient was for coordination of care (as documented) and [id number] counseling of patient and/or family. Dictated By: Kacie Garay MD DD/ [id number] Signed By: <Electronically signed by MD Kacie Garay> 07/19/182035 [facility] Work Phone: [phone] Progress note Author Kacie Garay [facility] January 18, 2018 8:17pm Note Date/Time January 17, 2018 3 :44pm [facility] [place] [address] Hem/Onc Follow Up Note - OP Signed Patient: Myla Brothers MR#: [id number] : 1950 Acct:[id number] Age/Sex: 67 / F Type: REG RCR Copies to: NO FAMILY PHYSICIAN~ Subjective Date/Time of Service: Date of Service: 01/17/2018 Time of Service: 15:43 Chief Complaint: Patient is here for routine follow up history of breast cancer mammogram for review, currently on Anastrozole. Patient has no complaints. - Diagnosis DIAGNOSIS: 1. 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 Tumor was ER negative, VT weak, and HER-2 nonamplified. She underwent right mastectomy at [facility] in 02/2015. Completed dose dense AC X4 and Taxol X 12 in August 2015. 2. Anastrazole with calcium and vitamin D started in August 2015, Calcium and vitamin D discontinued 07/2016 Anastrazole stopped in 01/2017 when she developed vasculitis although thereis no proven association at this time. Anastrozole was resumed in 03/2017 3. Now follows with rhematologist in [place] (does not believe she had vasculitis). 4. She was noted to have pulmonary nodules and a PET scan was done in January 2017 that showed A. Two small but hypermetabolic left axillary lymph nodes. She subsequently had an EUS and Dr Hess noted that the lymph nodes had actually shrunken is size by the time he saw her. B. Small but fairly intense focus of hypermetabolic activity either in the lower lobe of the right lung adjacent to the esophagus or in the esophagus itself at the level of T9. EGD and EUS in 01/2017 were both negative C. Small pleural-based nodular density demonstrating mild uptake in the lowerlobe of the left lung posteriorly. Our local radiologist said that it was too small for biopsy. D. Colonic diverticulosis and focus of increased uptake in the sigmoid colon versus physiologic activity in the distal left ureter. E. Heterogeneous bony uptake, potentially therapy-induced. ---She had a follow-up PET scan in March 2017. This showed a groundglass opacity in the right lower lobe. Our radiologist felt that it was likely infectious or inflammatory. She was referred to pulmonary at [facility]. Ground glass opacities resolved on PET/CT 08/2017. 5. A focus of increased uptake in the liver of uncertain significance was also identified. On MRI of the liver there was no abnormality found. HPI: Patient returns to the clinic for transfer of care from Dr. Steiner. No changes on self breast exam. No skin changes or breast tenderness. She is seeing a sheriff's sergeant in [place]--was reported to have vasculitis of legs about a yearago. Receives Anastrozole due to weak VT expression--no significant myalgias/arthralgias or hot flashes. No bowel or bladder complaints. - Summary of Therapies Summary of Therapies: 1. Underwent right mastectomy at [facility] in 02/2015. 2. Completed dose dense AC X4 and Taxol X 12 in August 2015. 3. Anastrazole with calcium and vitamin D started in August 2015, ROS Details: All systems reviewed & no additional complaints except as documented Constitutional: fair state of general health, no chills, no fatigue, no fever, no night sweats, no weakness, no weight gain, no weight loss Eyes: no change in vision, no double vision ENT: no headaches, no vertigo, no lightheadedness, no nasal congestion, no rhinorrhea, no epistaxis, no gingival bleeding, no sore throat Cardiovascular: no chest pain, no palpitations, no dyspnea on exertion, no edema, no heart murmur Respiratory: no cough, no exercise intolerance, no hemoptysis, no respiratory infections, no shortness of breath, no sputum production, no TB exposure, no wheezing Gastrointestinal: no change in appetite, no dysphagia, no indigestion, no abdominal pain, no bloating, no nausea, no vomiting, no jaundice, no constipation, no diarrhea, no black stools, no bloody stools, no change in bowelhabits Genitourinary: no frequency, no dysuria, no hematuria, no oliguria, no stones, no infections, no urinary retention Musculoskeletal: other - intermittent left leg swelling and color change, pain/vasculitis--following with rheumatology, no joint pain, no myalgia, no swelling, no redness, no limited ROM Integumentary: no rash, no lesions, no petechiae, no bruising, no pruritis LEFT breast: no changes, no lumps, no tenderness, no swelling RIGHT breast: incision site - well healed mastectomy site, no tenderness, no swelling Neurological: no dizzy, no headache, no numbness, no parasthesias, no pre- existing deficit, no tingling, no tremors, no weakness Psychiatric: no anxiety, no depression Endocrine: no excessive sweating, no intolerance to heat Hematologic/Lymphatic: no anemia, no bleeds easily, no bruises easily Allergic/Immunologic: no pruritis, no reaction to drugs ONC PMF - Medical History Medical history: Cancer - breast cancer - Surgical History Surgical history female: breast surgery - right mastectomy - Social History Hx Recreational Drug Use?: No Home Medications & Allergies Allergies Allergy/AdvReac Type Severity Reaction Status Date / Time Sulfa (Sulfonamide Allergy Unknown Hives Verified 01/07/17 09:33 Antibiotics) Home Medications Medication Instructions Recorded Confirmed Type albuterol sulfate 1 puff INHALATION Q6H PRN 01/05/17 01/17/18 History ascorbic acid (vitamin C) [Vitamin 500 mg PO DAILY 01/05/17 01/17/18 History C] budesonide-formoterol [Symbicort] 2 puff INHALATION DAILY 01/05/17 01/17/18 History esomeprazole magnesium 40 mg PO DAILY PRN 01/05/17 01/17/18 History fluticasone 2 spry INTRANASAL DAILY 01/05/17 01/17/18 History magnesium oxide 250 mg PO DAILY 01/05/17 01/17/18 History montelukast 10 mg PO DAILY 01/05/17 01/17/18 History pravastatin 40 mg PO DAILY 01/05/17 01/17/18 History pregabalin [Lyrica] 75 mg PO BID 01/05/17 01/17/18 History spironolactone 25 mg PO BID 01/05/17 01/17/18 History tiotropium bromide [Spiriva 2 puff INHALATION Q24H 01/05/17 01/17/18 History Respimat] biotin 1 mg PO DAILY 02/28/17 01/17/18 History anastrozole [Arimidex] 1 mg PO DAILY #30 tab 03/16/17 01/17/18 Rx warfarin 7.5 - 10 mg PO DIRECTED 03/16/17 01/17/18 History flaxseed oil 1,000 mg PO BID 03/25/17 01/17/18 History Objective - Resuscitation Status Resuscitation Status: Full Code - Height/Weight Height/Weight: Height 5 ft 6 in Weight 85.4 kg - Vital Signs Vital Signs: Temp 98 F 01/17/18 15:33 Pulse 86 01/17/18 15:33 Resp 18 01/17/18 15:33 BP 136/84 01/17/18 15:33 Pulse Ox 94 L 01/17/18 15:33 - Pain Bilateral Foot Pain Intensity: 3 Left Leg Pain Intensity: 10 - Emotional Needs Assessment Emotional Needs Assessment: Emotional Needs Identified? No Distress Screening Total 0 Support System Spouse Expressed Feelings Anxiety Expressed/Other Feelings Just alittle worried about results Comment - ECOG Performance Status ECOG Score: 1 Physical Exam - Constitutional no acute distress, no chronically ill appearing, cooperative - Routine HEENT Exam Head: normocephalic, atraumatic, no cushingoid faces Eye: EOMI, PERRL, no conjunctival icterus, no scleral injection ENT: mucous membranes moist, oropharynx clear, dentition normal - Routine Neck Exam supple, full ROM, no lymphadenopathy, no thyromegaly, no tenderness - Routine Chest/Breast/Axilla Exam Chest wall: no tenderness, no mass Breast: no tenderness, no induration, no mass, no swelling, no rashes, right mastectomy - well healed, nontender Axillae: no lymphadenopathy, no mass - Routine Respiratory Exam no accessory muscle use, no decreased breath sounds, CTA bilaterally, no respiratory distress, no rhonchi, no wheezes, no crackles - Routine Cardiovascular Exam RRR, no murmur, no gallop, no irregular rhythm - Routine Abdominal Exam soft, normoactive bowel sounds, no tenderness, no distended, no organomegaly, no mass - Routine Exam Groin: Absent: inguinal lymphadenopathy - Routine Extremities Exam Present: edema - 1+ left leg edema, nontender, mild erythema over anterior urias, full ROM, pulses intact, normal capillary refill, tenderness - leg pain--follows with rheumatology. Absent: cyanosis, clubbing, calf tenderness - Routine Back/Spine/Pelvis Exam Back/Spine: Present: full ROM. Absent: CVA tenderness, paraspinal tenderness, vertebral tenderness - Routine Skin Exam Present: intact, warm, normal turgor - Routine Neurological Exam Present: alert, oriented X3, CN II-XII intact, normal reflexes, moving all extremities, vision grossly intact, hearing grossly intact, normal speech. Absent: sensory deficit, motor deficit, abnormal gait, tremors - Routine Psychiatric Exam Present: normal affect, normal thought process, cooperative. Absent: depressed, anxious Results - Labs CBC & Chem 7: 01/03/17 17:45 01/03/17 17:45 Labs: Laboratory Last Values WBC 7.6 X10E3/uL (3.8-11.6) 01/03/17 17:45 RBC 3.93 x10E6/uL (3.60-5.00) 01/03/17 17:45 Hgb 12.1 g/dL (11.8-15.4) 01/03/17 17:45 Hct 36.3 % (34.0-46.4) 01/03/17 17:45 MCV 92.4 fl (80-100) 01/03/17 17:45 MCH 30.8 pg (24.7-34.3) 01/03/17 17:45 MCHC 33.4 g/dL (32.0-35.0) 01/03/17 17:45 RDW 14.5 % (11.9-15.3) 01/03/17 17:45 Plt Count 429 x10E3/uL (150-450) 01/03/17 17:45 MPV 8.2 fl (6.3-10.7) 01/03/17 17:45 Neut % (Auto) 57.8 % (.) 01/03/17 17:45 Lymph % (Auto) 27.4 % (.) 01/03/17 17:45 [place] % (Auto) 12.7 % (.) 01/03/17 17:45 Eos % (Auto) 1.5 % (.) 01/03/17 17:45 Baso % (Auto) 0.6 % (.) 01/03/17 17:45 Neut # (Auto) 4.4 x10E3/uL (1.8-7.7) 01/03/17 17:45 Lymph # (Auto) 2.1 x10E3/uL (1.00-4.8) 01/03/17 17:45 [place] # (Auto) 1.0 x10E3/uL (0.0-0.8) H 01/03/17 17:45 Eos # (Auto) 0.1 x10E3/uL (0.0-0.45) 01/03/17 17:45 Baso # (Auto) 0.0 x10E3/uL (0.0-0.2) 01/03/17 17:45 PHA Creatinine Clear N/A 01/03/17 17:45 Sodium 139 mmol/L (136-146) 01/03/17 17:45 Potassium 4.1 mmol/L (3.5-5.1) 01/03/17 17:45 Chloride 98 mmol/L (95-114) 01/03/17 17:45 Carbon Dioxide 29.5 mmol/L (22.0-30.0) 01/03/17 17:45 BUN 12 mg/dL (9-23) 01/03/17 17:45 Creatinine 1.00 mg/dL (0.44-1.03) 01/03/17 17:45 Est GFR ( Amer) > 60 01/03/17 17:45 Est GFR (Non-Af Amer) 56 01/03/17 17:45 Glucose 107 mg/dL (70-100) H 01/03/17 17:45 POC Glucose 99 mg/dl 08/17/17 09:38 Calcium 9.4 mg/dL (8.2-10.2) 01/03/17 17:45 Total Bilirubin 0.3 mg/dL (0.3-1.2) 01/03/17 17:45 AST 30 U/L (10-42) 01/03/17 17:45 ALT 37 U/L (10-60) 01/03/17 17:45 Alkaline Phosphatase 89 U/L (32-92) 01/03/17 17:45 Total Protein 6.9 gm/dL (6.1-7.9) 01/03/17 17:45 Albumin 3.3 gm/dL (3.2-5.5) 01/03/17 17:45 Globulin 3.6 01/03/17 17:45 Albumin/Globulin Ratio 0.9 01/03/17 17:45 - Impressions Any impression(s) listed above is documentation that was entered by the reading physician into a diagnostic report(s) for Myla Brothers. I have reviewed the report(s) and am incorporating any findings in the treatment plan of this patient where applicable. 01/11/2018--left diagnostic mammogram reviewed from [facility] Left breast stable with scattered benign appearing calcifications and benign appearing lymph nodes. BIRADS 2--Benign findings. Assessment and Plan (1) Breast cancer, right Qualifiers: Estrogen receptor status: negative Patient sex: female Status: Chronic 1. 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 ER negative, VT weak, and HER-2 nonamplified. 2. She underwent mastectomy at [place] in 02/2015. Completed dose dense AC X4 and Taxol X 12 in August 2015. 3. Anastrazole with calcium and vitamin D started in August 2015, Calcium and vitamin D discontinued 07/2016 Anastrazole stopped in 01/2017 when she developed vasculitis although there is no proven association at this time. Anastrozole was resumed in 03/2017 4. Seeing sheriff's sergeant in [place] for persistent leg pain and swelling (he does not feel this is vasculitis). Symptoms stable. 5. She was noted to have pulmonary nodules and a PET scan was done in January 2017 that showed A. Two small but hypermetabolic left axillary lymph nodes. She subsequently had an EUS and Dr Hess noted that the lymph nodes had actually shrunken is size by the time he saw her. B. Small but fairly intense focus of hypermetabolic activity either in the lower lobe of the right lung adjacent to the esophagus or in the esophagus itself at the level of T9. EGD and EUS in 01/2017 were both negative C. Small pleural-based nodular density demonstrating mild uptake in the lower lobe of the left lung posteriorly. Our local radiologist said that it was too small for biopsy. D. Colonic diverticulosis and focus of increased uptake in the sigmoid colon versus physiologic activity in the distal left ureter. E. Heterogeneous bony uptake, potentially therapy-induced. --She had a follow-up PET scan in March 2017 showing a groundglass opacity in the right lower lobe. Our radiologist felt that it was likely infectious or inflammatory. She was referred to pulmonary at [place]. Followup PET/CT 08/2017 showed resolution of prior ground glass density. No further surveillance required. 6. A focus of increased uptake in the liver of undetermined significance was also identified. On MRI of the liver there was no abnormality found. No evidence of recurrent on mammography or exam. Tolerating Anastrozole well. Since she is nearly 3 years from diagnosis, will defer next f/u to 6 months unless new symptoms arise. This is a 30 minute f/u visit to address comorbid issues. (2) Vasculitis Status: Resolved She has recurrent mild erythema, swelling, and discomfort of her left lower extremity. This was initially diagnosed as vasculitis but per second opinion from a sheriff's sergeant and display director in [place] this is not vasculitis. They told her it was skin pigmentation from prior infection. However her erythema tends to andry with deep touch and we do not think that this is skin pigmentation. There has been no progression. Continue rheumatology f/u as directed. (3) Neuropathy Status: Chronic We have referred her for acupuncture therapy for residual neuropathy from prior Taxol therapy. Symptoms are stable over the past 6 months. (4) Hypercalcemia Status: Resolved In the past she was found to have hypercalcemia with low normal PTH, borderline increased ionized calcium, no bone metastases, no chest lesions (workup 08/2016), low PTH-RP, no clinically palpable neck mass, normal calcitonin We plan to keep an eye on her calcium level but tends to run slightly on the higher side. Because of her mild hypercalcemia she is not on calcium and vitamin D. She will be due for f/u DEXA scan due to aromatase inhibitor therapy. - Chemo Plan Chemo Plan (Dose, Rate, Freq): Continue Anastrazole 1mg daily x 5 years. Goal of Treatment: Curative - Time Spent with Patient Greater than 50% of time spent with patient was for coordination of care (as documented) and [id number] counseling of patient and/or family. 25 - 35 minutes Dictated By: Kacie Garay MD DD/ [id number] Signed By: <Electronically signed by Kacie Garay MD> 01/18/182016 [facility] Work Phone: [phone] Progress note Author Mohsen Steiner [facility] August 18, 2017 3:25pm Note Date/Time August 18, 2017 3:23p [facility] at [address] [address] Hem/Onc Follow Up Note - OP Signed Patient: Myla Brothers MR#: [id number] : 1950 Acct:[id number] Age/Sex: 67 / F Type: REG RCR Copies to: Mario Og DO~ Subjective Date/Time of Service: Date of Service: 08/18/2017 Time of Service: 15:17 Chief Complaint: Patient here for one month follow up appointment for PET scan results. HPI: Patient returns to the clinic for a pre-scheduled follow-up visit that reports that 1. She has been feeling wonderful ROS Details: All systems reviewed & no additional complaints except as documented Home Medications & Allergies Allergies Allergy/AdvReac Type Severity Reaction Status Date / Time Sulfa (Sulfonamide Allergy Unknown Hives Verified 01/07/17 09:33 Antibiotics) Home Medications Medication Instructions Recorded Confirmed Type albuterol sulfate 1 puff INHALATION Q6H PRN 01/05/17 08/18/17 History ascorbic acid (vitamin C) [Vitamin 500 mg PO DAILY 01/05/17 08/18/17 History C] aspirin [Aspir-Low] 81 mg PO DAILY 01/05/17 08/18/17 History budesonide-formoterol [Symbicort] 2 puff INHALATION DAILY 01/05/17 08/18/17 History esomeprazole magnesium 40 mg PO DAILY 01/05/17 08/18/17 History fluticasone 2 spry INTRANASAL DAILY 01/05/17 08/18/17 History magnesium oxide 250 mg PO DAILY 01/05/17 08/18/17 History montelukast 10 mg PO DAILY 01/05/17 08/18/17 History pravastatin 40 mg PO DAILY 01/05/17 08/18/17 History pregabalin [Lyrica] 75 mg PO BID 01/05/17 08/18/17 History spironolactone 25 mg PO BID 01/05/17 08/18/17 History tiotropium bromide [Spiriva 2 puff INHALATION Q24H 01/05/17 08/18/17 History Respimat] biotin 1 mg PO DAILY 02/28/17 08/18/17 History colchicine 0.6 mg PO DAILY 02/28/17 08/18/17 History anastrozole [Arimidex] 1 mg PO DAILY #30 tab 03/16/17 08/18/17 Rx warfarin 7.5 - 10 mg PO DIRECTED 03/16/17 08/18/17 History flaxseed oil 1,000 mg PO BID 03/25/17 08/18/17 History Objective - Resuscitation Status Resuscitation Status: Full Code - Height/Weight Height/Weight: Height 5 ft 6 in Weight 80.059 kg - Vital Signs Vital Signs: Temp 97.9 F 08/18/17 15:00 Pulse 90 08/18/17 15:00 Resp 14 08/18/17 15:00 BP 122/67 08/18/17 15:00 Pulse Ox 97 08/18/17 15:00 - Pain Bilateral Foot Pain Intensity: 3 Left Leg Pain Intensity: 10 - Emotional Needs Assessment Emotional Needs Assessment: Emotional Needs Identified? No Distress Screening Total 0 Support System Spouse Expressed Feelings Anxiety Expressed/Other Feelings Just alittle worried about results Comment - ECOG Performance Status ECOG Score: 1 Physical Exam Narrative: Examination of right postmastectomy site and left breast, bilateral axillary, infraclavicular, supraclavicular and cervical lymph nodes was carefully performed. There was no clinical evidence of cancer recurrence. - Routine HEENT Exam Head: normocephalic, atraumatic Eye: EOMI, PERRL, normal accommodation ENT: mucous membranes moist, dentition normal - Routine Neck Exam supple, full ROM - Routine Chest/Breast/Axilla Exam Chest wall: no tenderness - Routine Respiratory Exam no accessory muscle use, no respiratory distress - Routine Cardiovascular Exam RRR - Routine Abdominal Exam soft, normoactive bowel sounds, no tenderness, no distended - Routine Extremities Exam Present: full ROM, pulses intact, normal capillary refill, other - Redness and swelling of left lower extremity - Routine Back/Spine/Pelvis Exam Back/Spine: Present: full ROM - Routine Skin Exam Present: intact, warm, normal turgor - Routine Neurological Exam Present: alert, oriented X3, normal reflexes, normal speech - Routine Psychiatric Exam Present: normal affect, normal thought process Results - Labs CBC & Chem 7: 01/03/17 17:45 01/03/17 17:45 Labs: Laboratory Last Values WBC 7.6 X10E3/uL (3.8-11.6) 01/03/17 17:45 RBC 3.93 x10E6/uL (3.60-5.00) 01/03/17 17:45 Hgb 12.1 g/dL (11.8-15.4) 01/03/17 17:45 Hct 36.3 % (34.0-46.4) 01/03/17 17:45 MCV 92.4 fl (80-100) 01/03/17 17:45 MCH 30.8 pg (24.7-34.3) 01/03/17 17:45 MCHC 33.4 g/dL (32.0-35.0) 01/03/17 17:45 RDW 14.5 % (11.9-15.3) 01/03/17 17:45 Plt Count 429 x10E3/uL (150-450) 01/03/17 17:45 MPV 8.2 fl (6.3-10.7) 01/03/17 17:45 Neut % (Auto) 57.8 % (.) 01/03/17 17:45 Lymph % (Auto) 27.4 % (.) 01/03/17 17:45 [place] % (Auto) 12.7 % (.) 01/03/17 17:45 Eos % (Auto) 1.5 % (.) 01/03/17 17:45 Baso % (Auto) 0.6 % (.) 01/03/17 17:45 Neut # (Auto) 4.4 x10E3/uL (1.8-7.7) 01/03/17 17:45 Lymph # (Auto) 2.1 x10E3/uL (1.00-4.8) 01/03/17 17:45 [place] # (Auto) 1.0 x10E3/uL (0.0-0.8) H 01/03/17 17:45 Eos # (Auto) 0.1 x10E3/uL (0.0-0.45) 01/03/17 17:45 Baso # (Auto) 0.0 x10E3/uL (0.0-0.2) 01/03/17 17:45 PHA Creatinine Clear N/A 01/03/17 17:45 Sodium 139 mmol/L (136-146) 01/03/17 17:45 Potassium 4.1 mmol/L (3.5-5.1) 01/03/17 17:45 Chloride 98 mmol/L (95-114) 01/03/17 17:45 Carbon Dioxide 29.5 mmol/L (22.0-30.0) 01/03/17 17:45 BUN 12 mg/dL (9-23) 01/03/17 17:45 Creatinine 1.00 mg/dL (0.44-1.03) 01/03/17 17:45 Est GFR ( Amer) > 60 01/03/17 17:45 Est GFR (Non-Af Amer) 56 01/03/17 17:45 Glucose 107 mg/dL (70-100) H 01/03/17 17:45 POC Glucose 99 mg/dl 08/17/17 09:38 Calcium 9.4 mg/dL (8.2-10.2) 01/03/17 17:45 Total Bilirubin 0.3 mg/dL (0.3-1.2) 01/03/17 17:45 AST 30 U/L (10-42) 01/03/17 17:45 ALT 37 U/L (10-60) 01/03/17 17:45 Alkaline Phosphatase 89 U/L (32-92) 01/03/17 17:45 Total Protein 6.9 gm/dL (6.1-7.9) 01/03/17 17:45 Albumin 3.3 gm/dL (3.2-5.5) 01/03/17 17:45 Globulin 3.6 01/03/17 17:45 Albumin/Globulin Ratio 0.9 01/03/17 17:45 Assessment and Plan (1) Breast cancer, right Status: Chronic 1. 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 2. Tumor was ER negative, VT weak, and HER-2 nonamplified. 3. She underwent mastectomy at [place] in 02/2015. Completed dose dense AC X4 and Taxol X 12 in August 2015. 4. Anastrazole with calcium and vitamin D started in August 2015, Calcium and vitamin D discontinued 07/2016 Anastrazole stopped in 01/2017 when she developed vasculitis although there is no proven association at this time. Anastrozole was resumed in 03/2017 5. Next mammogram will be in January 2018 6. She was noted to have pulmonary nodules and a PET scan was done in January 2017 that showed A. Two small but hypermetabolic left axillary lymph nodes. She subsequently had an EUS and Dr Hess noted that the lymph nodes had actually shrunken is size by the time he saw her. B. Small but fairly intense focus of hypermetabolic activity either in the lower lobe of the right lung adjacent to the esophagus or in the esophagus itself at the level of T9. EGD and EUS in 01/2017 were both negative C. Small pleural-based nodular density demonstrating mild uptake in the lower lobe of the left lung posteriorly. Our local radiologist said that it was too small for biopsy. D. Colonic diverticulosis and focus of increased uptake in the sigmoid colon versus physiologic activity in the distal left ureter. E. Heterogeneous bony uptake, potentially therapy-induced. 7. She had a follow-up PET scan in March 2017. This showed a groundglass opacity in the right lower lobe. Our radiologist felt that it was likely infectious or inflammatory. She was referred to pulmonary at [place] 8. A focus of increased uptake in the liver of quasi-significance was also identified. On MRI of the liver there was no abnormality found PET scan in August 2017 showed no evidence of disease recurrence. Her whole body PET scan was completely negative. Patient was reassured (2) Pulmonary embolism Status: Chronic (3) Vasculitis Status: Resolved She has a port wine stain on her left lower extremity. This developed around the same time that she got DVT. This was initially diagnosed as vasculitis but per second opinion from a sheriff's sergeant and display director in [place] this is not vasculitis. They told her it was skin pigmentation from prior infection. However her port wine stain tends to andry with deep touch and we do not think that this is skin pigmentation. There has been no progression. (4) Lung nodules Status: Resolved (5) Hypercalcemia Status: Resolved In the past she was found to have hypercalcemia with low normal PTH, borderline increased ionized calcium, no bone metastases, no chest lesions (workup 08/2016), low PTH-RP, no clinically palpable neck mass, normal calcitonin We plan to keep an eye on her calcium level but tends to run slightly on the higher side. Because of her mild hypercalcemia she is not on calcium and vitamin D. (6) Neuropathy Status: Chronic We have referred her for acupuncture therapy - Time Spent with Patient Greater than 50% of time spent with patient was for coordination of care (as documented) and [id number] counseling of patient and/or family. Dictated By: Mohsen Steiner MD DD/ [id number] Signed By: <Electronically signed by Mohsen Steiner MD> 08/18/17 7434 [facility] Work Phone: [phone] Progress note Author Mohsen Steiner [facility] July 21, 2017 3:44pm Note Date/Time July 21, 2017 3:4 0pm [facility] [place] [address] Hem/Onc Follow Up Note - OP Signed Patient: Myla Brothers MR#: [id number] : 1950 Acct:[id number] Age/Sex: 67 / F Type: REG RCR Copies to: Mario Og DO~ Subjective Date/Time of Service: Date of Service: 07/21/2017 Time of Service: 15:39 Chief Complaint: Patient here for four month follow up appointment with labs. HPI: Patient returns to the clinic for a pre-scheduled follow-up visit that reports that 1. She saw a display director and sheriff's sergeant in [place]. They do not think that she has vasculitis and as such have not recommended any specific therapy ROS Details: All systems reviewed & no additional complaints except as documented Home Medications & Allergies Allergies Allergy/AdvReac Type Severity Reaction Status Date / Time Sulfa (Sulfonamide Allergy Unknown Hives Verified 01/07/17 09:33 Antibiotics) Home Medications Medication Instructions Recorded Confirmed Type albuterol sulfate 1 puff INHALATION Q6H PRN 01/05/17 01/05/17 History ascorbic acid (vitamin C) [Vitamin 500 mg PO DAILY 01/05/17 01/05/17 History C] aspirin [Aspir-Low] 81 mg PO DAILY 01/05/17 01/05/17 History budesonide-formoterol [Symbicort] 2 puff INHALATION DAILY 01/05/17 01/05/17 History esomeprazole magnesium 40 mg PO DAILY 01/05/17 01/05/17 History fluticasone 2 spry INTRANASAL DAILY 01/05/17 01/05/17 History magnesium oxide 250 mg PO DAILY 01/05/17 01/05/17 History montelukast 10 mg PO DAILY 01/05/17 01/05/17 History pravastatin 40 mg PO DAILY 01/05/17 01/05/17 History pregabalin [Lyrica] 75 mg PO BID 01/05/17 01/05/17 History spironolactone 25 mg PO BID 01/05/17 01/05/17 History tiotropium bromide [Spiriva 2 puff INHALATION Q24H 01/05/17 01/05/17 History Respimat] biotin 1 mg PO DAILY 02/28/17 02/28/17 History colchicine 0.6 mg PO DAILY 02/28/17 07/21/17 History anastrozole [Arimidex] 1 mg PO DAILY #30 tab 03/16/17 Rx warfarin 7.5 - 10 mg PO DIRECTED 03/16/17 07/21/17 History flaxseed oil 1,000 mg PO BID 03/25/17 03/25/17 History Objective - Resuscitation Status Resuscitation Status: Full Code - Height/Weight Height/Weight: Height 5 ft 6 in Weight 84.912 kg - Vital Signs Vital Signs: Last Vital Signs Temp 98.3 F 07/21/17 15:24 Pulse 92 H 07/21/17 15:24 Resp 16 07/21/17 15:24 BP 143/88 H 07/21/17 15:24 Pulse Ox 94 L 07/21/17 15:24 - Pain Bilateral Foot Pain Intensity: 3 Left Leg Pain Intensity: 10 - Emotional Needs Assessment Emotional Needs Assessment: Emotional Needs Identified? No Distress Screening Total 0 Support System Spouse Expressed Feelings Anxiety Expressed/Other Feelings Just alittle worried about results Comment - ECOG Performance Status ECOG Score: 1 Physical Exam Narrative: Examination of right postmastectomy site and left breast, bilateral axillary, infraclavicular, supraclavicular and cervical lymph nodes was carefully performed. There was no clinical evidence of cancer recurrence. - Routine HEENT Exam Head: normocephalic, atraumatic Eye: EOMI, PERRL, normal accommodation ENT: mucous membranes moist, dentition normal - Routine Neck Exam supple, full ROM - Routine Chest/Breast/Axilla Exam Chest wall: no tenderness - Routine Respiratory Exam no accessory muscle use, no respiratory distress - Routine Cardiovascular Exam RRR - Routine Abdominal Exam soft, normoactive bowel sounds, no tenderness, no distended - Routine Extremities Exam Present: full ROM, pulses intact, normal capillary refill, other - Redness and swelling of left lower extremity - Routine Back/Spine/Pelvis Exam Back/Spine: Present: full ROM - Routine Skin Exam Present: intact, warm, normal turgor - Routine Neurological Exam Present: alert, oriented X3, normal reflexes, normal speech - Routine Psychiatric Exam Present: normal affect, normal thought process Results - Labs CBC & Chem 7: 01/03/17 17:45 01/03/17 17:45 Labs: Laboratory Last Values WBC 7.6 X10E3/uL (3.8-11.6) 01/03/17 17:45 RBC 3.93 x10E6/uL (3.60-5.00) 01/03/17 17:45 Hgb 12.1 g/dL (11.8-15.4) 01/03/17 17:45 Hct 36.3 % (34.0-46.4) 01/03/17 17:45 MCV 92.4 fl (80-100) 01/03/17 17:45 MCH 30.8 pg (24.7-34.3) 01/03/17 17:45 MCHC 33.4 g/dL (32.0-35.0) 01/03/17 17:45 RDW 14.5 % (11.9-15.3) 01/03/17 17:45 Plt Count 429 x10E3/uL (150-450) 01/03/17 17:45 MPV 8.2 fl (6.3-10.7) 01/03/17 17:45 Neut % (Auto) 57.8 % (.) 01/03/17 17:45 Lymph % (Auto) 27.4 % (.) 01/03/17 17:45 [place] % (Auto) 12.7 % (.) 01/03/17 17:45 Eos % (Auto) 1.5 % (.) 01/03/17 17:45 Baso % (Auto) 0.6 % (.) 01/03/17 17:45 Neut # (Auto) 4.4 x10E3/uL (1.8-7.7) 01/03/17 17:45 Lymph # (Auto) 2.1 x10E3/uL (1.00-4.8) 01/03/17 17:45 [place] # (Auto) 1.0 x10E3/uL (0.0-0.8) H 01/03/17 17:45 Eos # (Auto) 0.1 x10E3/uL (0.0-0.45) 01/03/17 17:45 Baso # (Auto) 0.0 x10E3/uL (0.0-0.2) 01/03/17 17:45 PHA Creatinine Clear N/A 01/03/17 17:45 Sodium 139 mmol/L (136-146) 01/03/17 17:45 Potassium 4.1 mmol/L (3.5-5.1) 01/03/17 17:45 Chloride 98 mmol/L (95-114) 01/03/17 17:45 Carbon Dioxide 29.5 mmol/L (22.0-30.0) 01/03/17 17:45 BUN 12 mg/dL (9-23) 01/03/17 17:45 Creatinine 1.00 mg/dL (0.44-1.03) 01/03/17 17:45 Est GFR ( Amer) > 60 01/03/17 17:45 Est GFR (Non-Af Amer) 56 01/03/17 17:45 Glucose 107 mg/dL (70-100) H 01/03/17 17:45 POC Glucose 96 mg/dl 03/14/17 08:08 Calcium 9.4 mg/dL (8.2-10.2) 01/03/17 17:45 Total Bilirubin 0.3 mg/dL (0.3-1.2) 01/03/17 17:45 AST 30 U/L (10-42) 01/03/17 17:45 ALT 37 U/L (10-60) 01/03/17 17:45 Alkaline Phosphatase 89 U/L (32-92) 01/03/17 17:45 Total Protein 6.9 gm/dL (6.1-7.9) 01/03/17 17:45 Albumin 3.3 gm/dL (3.2-5.5) 01/03/17 17:45 Globulin 3.6 01/03/17 17:45 Albumin/Globulin Ratio 0.9 01/03/17 17:45 Assessment and Plan (1) Breast cancer, right Status: Chronic 1. 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 2. Tumor was ER negative, VT weak, and HER-2 nonamplified. 3. She underwent mastectomy at [place] in 02/2015. Completed dose dense AC X4 and Taxol X 12 in August 2015. 4. Anastrazole with calcium and vitamin D started in August 2015, Calcium and vitamin D discontinued 07/2016 Anastrazole stopped in 01/2017 when she developed vasculitis although there is no proven association at this time. Anastrozole was resumed in 03/2017 5. Next mammogram will be in January 2018 6. She was noted to have pulmonary nodules and a PET scan was done in January 2017 that showed A. Two small but hypermetabolic left axillary lymph nodes. She subsequently had an EUS and Dr Hess noted that the lymph nodes had actually shrunken is size by the time he saw her. B. Small but fairly intense focus of hypermetabolic activity either in the lower lobe of the right lung adjacent to the esophagus or in the esophagus itself at the level of T9. EGD and EUS in 01/2017 were both negative C. Small pleural-based nodular density demonstrating mild uptake in the lower lobe of the left lung posteriorly. Our local radiologist said that it was too small for biopsy. D. Colonic diverticulosis and focus of increased uptake in the sigmoid colon versus physiologic activity in the distal left ureter. E. Heterogeneous bony uptake, potentially therapy-induced. 7. She had a follow-up PET scan in March 2017. This showed a groundglass opacity in the right lower lobe. Our radiologist felt that it was likely infectious or inflammatory. She was referred to pulmonary at [place] 8. A focus of increased uptake in the liver of quasi-significance was also identified. On MRI of the liver there was no abnormality found Repeat PET scan has been requested for overall reassessment (2) Pulmonary embolism Status: Chronic (3) Vasculitis Status: Resolved She has a port wine stain on her left lower extremity. This developed around the same time that she got DVT. This was initially diagnosed as vasculitis but per second opinion from a sheriff's sergeant and display director in [place] this is not vasculitis. They told her it was skin pigmentation from prior infection. However her port wine stain tends to andry with deep touch and we do not think that this is skin pigmentation. There has been no progression. (4) Lung nodules Status: Resolved (5) Hypercalcemia Status: Resolved In the past she was found to have hypercalcemia with low normal PTH, borderline increased ionized calcium, no bone metastases, no chest lesions (workup 08/2016), low PTH-RP, no clinically palpable neck mass, normal calcitonin We plan to keep an eye on her calcium level but tends to run slightly on the higher side (6) Neuropathy Status: Chronic We have referred her for acupuncture therapy - Time Spent with Patient Greater than 50% of time spent with patient was for coordination of care (as documented) and [id number] counseling of patient and/or family. Dictated By: Mohsen Steiner MD DD/ [id number] Signed By: <Electronically signed by Mohsen Steiner MD> 07/21/17 4060 [facility] Work Phone: [phone] Progress note Author Mohsen Steiner [facility] March 25, 2017 11:28am Note Date/Time March 25, 2017 11:27am [facility] [place] [address] Hem/Onc Follow Up Note - OP Signed Patient: Myla Brothers MR#: [id number] : 1950 Acct:[id number] Age/Sex: 66 / F Type: REG RCR Copies to: Mario Og DO~ Subjective Date/Time of Service: Date of Service: 03/25/2017 Time of Service: 11:25 Chief Complaint: Patient is here to review MRI report and to follow up after seeing the wire basket maker. HPI: Patient returns to the clinic for a pre-scheduled follow-up visit that reports that 1. She was seen at [facility] rheumatology, and from there she was referred to a display director in [place]. No final diagnosis has yet been made. 2. She had an MRI of the liver 3. She was seen by pulmonary in [facility] Details: All systems reviewed & no additional complaints except as documented Home Medications & Allergies Allergies Allergy/AdvReac Type Severity Reaction Status Date / Time Sulfa (Sulfonamide Allergy Unknown Hives Verified 01/07/17 09:33 Antibiotics) Home Medications Medication Instructions Recorded Confirmed Type albuterol sulfate 1 puff INHALATION Q6H PRN 01/05/17 01/05/17 History ascorbic acid (vitamin C) [Vitamin 500 mg PO DAILY 01/05/17 01/05/17 History C] aspirin [Aspir-Low] 81 mg PO DAILY 01/05/17 01/05/17 History budesonide-formoterol [Symbicort] 2 puff INHALATION DAILY 01/05/17 01/05/17 History esomeprazole magnesium 40 mg PO DAILY 01/05/17 01/05/17 History fluticasone 2 spry INTRANASAL DAILY 01/05/17 01/05/17 History magnesium oxide 250 mg PO DAILY 01/05/17 01/05/17 History montelukast 10 mg PO DAILY 01/05/17 01/05/17 History pravastatin 40 mg PO DAILY 01/05/17 01/05/17 History pregabalin [Lyrica] 75 mg PO BID 01/05/17 01/05/17 History spironolactone 25 mg PO BID 01/05/17 01/05/17 History tiotropium bromide [Spiriva 2 puff INHALATION Q24H 01/05/17 01/05/17 History Respimat] biotin 1 mg PO DAILY 02/28/17 02/28/17 History colchicine 0.6 mg PO BID 02/28/17 03/16/17 History anastrozole [Arimidex] 1 mg PO DAILY #30 tab 03/16/17 Rx warfarin 5 mg PO DAILY 03/16/17 03/16/17 History flaxseed oil 1,000 mg PO BID 03/25/17 03/25/17 History Objective - Resuscitation Status Resuscitation Status: Full Code - Height/Weight Height/Weight: Height 5 ft 6 in Weight 86.228 kg - Vital Signs Vital Signs: Last Vital Signs Temp 98.6 F 03/25/17 10:58 Pulse 85 03/25/17 10:58 Resp 16 03/25/17 10:58 BP 134/78 03/25/17 10:58 Pulse Ox 98 03/25/17 10:58 - Pain Left Leg Pain Intensity: 10 - Emotional Needs Assessment Emotional Needs Assessment: Emotional Needs Identified? No Distress Screening Total 0 Support System Spouse Expressed Feelings Anxiety Expressed/Other Feelings Just alittle worried about results Comment - ECOG Performance Status ECOG Score: 1 Physical Exam - Routine HEENT Exam Head: normocephalic, atraumatic Eye: EOMI, PERRL, normal accommodation ENT: mucous membranes moist, dentition normal - Routine Neck Exam supple, full ROM - Routine Chest/Breast/Axilla Exam Chest wall: no tenderness - Routine Respiratory Exam no accessory muscle use, no respiratory distress - Routine Cardiovascular Exam RRR - Routine Abdominal Exam soft, normoactive bowel sounds, no tenderness, no distended - Routine Extremities Exam Present: full ROM, pulses intact, normal capillary refill, other - Redness and swelling of left lower extremity - Routine Back/Spine/Pelvis Exam Back/Spine: Present: full ROM - Routine Skin Exam Present: intact, warm, normal turgor - Routine Neurological Exam Present: alert, oriented X3, normal reflexes, normal speech - Routine Psychiatric Exam Present: normal affect, normal thought process Results - Labs CBC & Chem 7: 01/03/17 17:45 01/03/17 17:45 Labs: Laboratory Last Values WBC 7.6 X10E3/uL (3.8-11.6) 01/03/17 17:45 RBC 3.93 x10E6/uL (3.60-5.00) 01/03/17 17:45 Hgb 12.1 g/dL (11.8-15.4) 01/03/17 17:45 Hct 36.3 % (34.0-46.4) 01/03/17 17:45 MCV 92.4 fl (80-100) 01/03/17 17:45 MCH 30.8 pg (24.7-34.3) 01/03/17 17:45 MCHC 33.4 g/dL (32.0-35.0) 01/03/17 17:45 RDW 14.5 % (11.9-15.3) 01/03/17 17:45 Plt Count 429 x10E3/uL (150-450) 01/03/17 17:45 MPV 8.2 fl (6.3-10.7) 01/03/17 17:45 Neut % (Auto) 57.8 % (.) 01/03/17 17:45 Lymph % (Auto) 27.4 % (.) 01/03/17 17:45 [place] % (Auto) 12.7 % (.) 01/03/17 17:45 Eos % (Auto) 1.5 % (.) 01/03/17 17:45 Baso % (Auto) 0.6 % (.) 01/03/17 17:45 Neut # (Auto) 4.4 x10E3/uL (1.8-7.7) 01/03/17 17:45 Lymph # (Auto) 2.1 x10E3/uL (1.00-4.8) 01/03/17 17:45 [place] # (Auto) 1.0 x10E3/uL (0.0-0.8) H 01/03/17 17:45 Eos # (Auto) 0.1 x10E3/uL (0.0-0.45) 01/03/17 17:45 Baso # (Auto) 0.0 x10E3/uL (0.0-0.2) 01/03/17 17:45 PHA Creatinine Clear N/A 01/03/17 17:45 Sodium 139 mmol/L (136-146) 01/03/17 17:45 Potassium 4.1 mmol/L (3.5-5.1) 01/03/17 17:45 Chloride 98 mmol/L (95-114) 01/03/17 17:45 Carbon Dioxide 29.5 mmol/L (22.0-30.0) 01/03/17 17:45 BUN 12 mg/dL (9-23) 01/03/17 17:45 Creatinine 1.00 mg/dL (0.44-1.03) 01/03/17 17:45 Est GFR ( Amer) > 60 01/03/17 17:45 Est GFR (Non-Af Amer) 56 01/03/17 17:45 Glucose 107 mg/dL (70-100) H 01/03/17 17:45 POC Glucose 96 mg/dl 03/14/17 08:08 Calcium 9.4 mg/dL (8.2-10.2) 01/03/17 17:45 Total Bilirubin 0.3 mg/dL (0.3-1.2) 01/03/17 17:45 AST 30 U/L (10-42) 01/03/17 17:45 ALT 37 U/L (10-60) 01/03/17 17:45 Alkaline Phosphatase 89 U/L (32-92) 01/03/17 17:45 Total Protein 6.9 gm/dL (6.1-7.9) 01/03/17 17:45 Albumin 3.3 gm/dL (3.2-5.5) 01/03/17 17:45 Globulin 3.6 01/03/17 17:45 Albumin/Globulin Ratio 0.9 10/02/17 17:45 Assessment and Plan (1) Breast cancer, right Status: Chronic 1. 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 2. Tumor was ER negative, VT weak, and HER-2 nonamplified. 3. She underwent mastectomy at [place] in 02/2015. Completed dose dense AC X4 and Taxol X 12 in August 2015. 4. Anastrazole with calcium and vitamin D started in August 2015, Calcium and vitamin D discontinued 07/2016 Anastrazole stopped in 01/2017 when she developed vasculitis although there is no proven association at this time. Anastrozole was resumed in 03/2017 5. Next mammogram will be in January 2018 6. She was noted to have pulmonary nodules and a PET scan was done in January 2017 that showed A. Two small but hypermetabolic left axillary lymph nodes. She subsequently had an EUS and Dr Hess noted that the lymph nodes had actually shrunken is size by the time he saw her. B. Small but fairly intense focus of hypermetabolic activity either in the lower lobe of the right lung adjacent to the esophagus or in the esophagus itself at the level of T9. EGD and EUS in 01/2017 were both negative C. Small pleural-based nodular density demonstrating mild uptake in the lower lobe of the left lung posteriorly. Our local radiologist said that it was too small for biopsy. D. Colonic diverticulosis and focus of increased uptake in the sigmoid colon versus physiologic activity in the distal left ureter. E. Heterogeneous bony uptake, potentially therapy-induced. 7. She had a follow-up PET scan in March 2017. This showed a groundglass opacity in the right lower lobe. Our radiologist felt that it was likely infectious or inflammatory. 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 A focus of increased uptake in the liver of quasi-significance was also identified. On MRI of the liver there was no abnormality found (2) Pulmonary embolism Status: Chronic She is currently on warfarin (3) Vasculitis Status: Acute She is being seen by rheumatology at [facility]. (4) Lung nodules Status: Resolved Her most recent PET scan looked much better than the previous one. She now only has a pleural-based groundglass opacity in the right lower lobe. Was seen by pulmonary who recommended a follow-up CT scan in [address] scan will be in September 2017 (5) Hypercalcemia Status: Resolved In the past she was found to have hypercalcemia with low normal PTH, borderline increased ionized calcium, no bone metastases, no chest lesions (workup 08/2016), low PTH-RP, no clinically palpable neck mass, normal calcitonin This issue is now considered resolved as her calcium level is actually normal at this time - Time Spent with Patient Greater than 50% of time spent with patient was for coordination of care (as documented) and [id number] counseling of patient and/or family. Dictated By: Mohsen Steiner MD DD/ 24 Signed By: <Electronically signed by Mohsen Steiner MD> 03/25/178 [facility] Work Phone: [phone] Progress note Author Mohsen Steiner [facility] March 16, 2017 3:11pm Note Date/Time March 16, 2017 2:57pm [facility] [place] [address] Hem/Onc Follow Up Note - OP Signed Patient: Myla Brothers MR#: [id number] : 1950 Acct:[id number] Age/Sex: 66 / F Type: REG RCR Copies to: Mario Og DO~ Subjective Date/Time of Service: Date of Service: 03/16/2017 Time of Service: 14:55 Chief Complaint: Patient is here for review of [employer] reports. HPI: Patient returns to the clinic for a pre-scheduled follow-up visit that reports that 1. She was seen at [facility] rheumatology, and from there she was referred to a display director in [place]. No final diagnosis has yet been made ROS Details: All systems reviewed & no additional complaints except as documented Home Medications & Allergies Allergies Allergy/AdvReac Type Severity Reaction Status Date / Time Sulfa (Sulfonamide Allergy Unknown Hives Verified 01/07/17 09:33 Antibiotics) Home Medications Medication Instructions Recorded Confirmed Type albuterol sulfate 1 puff INHALATION Q6H PRN 01/05/17 01/05/17 History ascorbic acid (vitamin C) [Vitamin 500 mg PO DAILY 01/05/17 01/05/17 History C] aspirin [Aspir-Low] 81 mg PO DAILY 01/05/17 01/05/17 History budesonide-formoterol [Symbicort] 2 puff INHALATION DAILY 01/05/17 01/05/17 History esomeprazole magnesium 40 mg PO DAILY 01/05/17 01/05/17 History fluticasone 2 spry INTRANASAL DAILY 01/05/17 01/05/17 History magnesium oxide 250 mg PO DAILY 01/05/17 01/05/17 History montelukast 10 mg PO DAILY 01/05/17 01/05/17 History pravastatin 40 mg PO DAILY 01/05/17 01/05/17 History pregabalin [Lyrica] 75 mg PO BID 01/05/17 01/05/17 History spironolactone 25 mg PO BID 01/05/17 01/05/17 History tiotropium bromide [Spiriva 2 puff INHALATION Q24H 01/05/17 01/05/17 History Respimat] biotin 1 mg PO DAILY 02/28/17 02/28/17 History colchicine 0.6 mg PO BID 02/28/17 03/16/17 History anastrozole [Arimidex] 1 mg PO DAILY #30 tab 03/16/17 Rx warfarin 5 mg PO DAILY 03/16/17 03/16/17 History Objective - Resuscitation Status Resuscitation Status: Full Code - Height/Weight Height/Weight: Height 5 ft 6 in Weight 86.6 kg - Vital Signs Vital Signs: Last Vital Signs Temp 98.8 F 03/16/17 14:03 Pulse 112 H 03/16/17 14:03 Resp 20 03/16/17 14:03 BP 124/74 03/16/17 14:03 Pulse Ox 94 L 03/16/17 14:03 - Pain Left Leg Pain Intensity: 10 - Emotional Needs Assessment Emotional Needs Assessment: Emotional Needs Identified? No Distress Screening Total 0 Support System Spouse Expressed Feelings Anxiety Expressed/Other Feelings Just alittle worried about results Comment - ECOG Performance Status ECOG Score: 1 Physical Exam - Routine HEENT Exam Head: normocephalic, atraumatic Eye: EOMI, PERRL, normal accommodation ENT: mucous membranes moist, dentition normal - Routine Neck Exam supple, full ROM - Routine Chest/Breast/Axilla Exam Chest wall: no tenderness - Routine Respiratory Exam no accessory muscle use, no respiratory distress - Routine Cardiovascular Exam RRR - Routine Abdominal Exam soft, normoactive bowel sounds, no tenderness, no distended - Routine Extremities Exam Present: full ROM, pulses intact, normal capillary refill, other - Redness and swelling of left lower extremity - Routine Back/Spine/Pelvis Exam Back/Spine: Present: full ROM - Routine Skin Exam Present: intact, warm, normal turgor - Routine Neurological Exam Present: alert, oriented X3, normal reflexes, normal speech - Routine Psychiatric Exam Present: normal affect, normal thought process Results - Labs CBC & Chem 7: 01/03/17 17:45 01/03/17 17:45 Labs: Laboratory Last Values WBC 7.6 X10E3/uL (3.8-11.6) 01/03/17 17:45 RBC 3.93 x10E6/uL (3.60-5.00) 01/03/17 17:45 Hgb 12.1 g/dL (11.8-15.4) 01/03/17 17:45 Hct 36.3 % (34.0-46.4) 01/03/17 17:45 MCV 92.4 fl (80-100) 01/03/17 17:45 MCH 30.8 pg (24.7-34.3) 01/03/17 17:45 MCHC 33.4 g/dL (32.0-35.0) 01/03/17 17:45 RDW 14.5 % (11.9-15.3) 01/03/17 17:45 Plt Count 429 x10E3/uL (150-450) 01/03/17 17:45 MPV 8.2 fl (6.3-10.7) 01/03/17 17:45 Neut % (Auto) 57.8 % (.) 01/03/17 17:45 Lymph % (Auto) 27.4 % (.) 01/03/17 17:45 [place] % (Auto) 12.7 % (.) 01/03/17 17:45 Eos % (Auto) 1.5 % (.) 01/03/17 17:45 Baso % (Auto) 0.6 % (.) 01/03/17 17:45 Neut # (Auto) 4.4 x10E3/uL (1.8-7.7) 01/03/17 17:45 Lymph # (Auto) 2.1 x10E3/uL (1.00-4.8) 01/03/17 17:45 [place] # (Auto) 1.0 x10E3/uL (0.0-0.8) H 01/03/17 17:45 Eos # (Auto) 0.1 x10E3/uL (0.0-0.45) 01/03/17 17:45 Baso # (Auto) 0.0 x10E3/uL (0.0-0.2) 01/03/17 17:45 PHA Creatinine Clear N/A 01/03/17 17:45 Sodium 139 mmol/L (136-146) 01/03/17 17:45 Potassium 4.1 mmol/L (3.5-5.1) 01/03/17 17:45 Chloride 98 mmol/L (95-114) 01/03/17 17:45 Carbon Dioxide 29.5 mmol/L (22.0-30.0) 01/03/17 17:45 BUN 12 mg/dL (9-23) 01/03/17 17:45 Creatinine 1.00 mg/dL (0.44-1.03) 01/03/17 17:45 Est GFR ( Amer) > 60 01/03/17 17:45 Est GFR (Non-Af Amer) 56 01/03/17 17:45 Glucose 107 mg/dL (70-100) H 01/03/17 17:45 POC Glucose 96 mg/dl 03/14/17 08:08 Calcium 9.4 mg/dL (8.2-10.2) 01/03/17 17:45 Total Bilirubin 0.3 mg/dL (0.3-1.2) 01/03/17 17:45 AST 30 U/L (10-42) 01/03/17 17:45 ALT 37 U/L (10-60) 01/03/17 17:45 Alkaline Phosphatase 89 U/L (32-92) 01/03/17 17:45 Total Protein 6.9 gm/dL (6.1-7.9) 01/03/17 17:45 Albumin 3.3 gm/dL (3.2-5.5) 01/03/17 17:45 Globulin 3.6 01/03/17 17:45 Albumin/Globulin Ratio 0.9 01/03/17 17:45 Assessment and Plan (1) Breast cancer, right Status: Chronic 1. 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 2. Tumor was ER negative, VT weak, and HER-2 nonamplified. 3. She underwent mastectomy at [place] in 02/2015. Completed dose dense AC X4 and Taxol X 12 in August 2015. 4. Anastrazole with calcium and vitamin D started in August 2015, Calcium and vitamin D discontinued 07/2016 Anastrazole stopped in 01/2017 when she developed vasculitis although there is no proven association at this time. Anastrozole was resumed in 03/2017 5. Next mammogram was to be in January 2017 6. She was noted to have pulmonary nodules and a PET scan was done in January 2017 that showed A. Two small but hypermetabolic left axillary lymph nodes. She subsequently had an EUS and Dr Hess noted that the lymph nodes had actually shrunken is size by the time he saw her. B. Small but fairly intense focus of hypermetabolic activity either in the lower lobe of the right lung adjacent to the esophagus or in the esophagus itself at the level of T9. EGD and EUS in 01/2017 were both negative C. Small pleural-based nodular density demonstrating mild uptake in the lower lobe of the left lung posteriorly. Our local radiologist said that it was too small for biopsy. D. Colonic diverticulosis and focus of increased uptake in the sigmoid colon versus physiologic activity in the distal left ureter. E. Heterogeneous bony uptake, potentially therapy-induced. 7. She had a follow-up PET scan in March 2017. This showed a groundglass opacity in the right lower lobe. Our radiologist felt that it was likely infectious or inflammatory. 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 A focus of increased uptake in the liver of quasi-significance was also identified. MRI of the liver has been requested (2) Pulmonary embolism Status: Chronic She is currently on warfarin (3) Vasculitis Status: Acute She was seen by rheumatology at [facility]. (4) Lung nodules Status: Acute Her most recent PET scan looked much better than the previous one. She now only has a pleural-based groundglass opacity in the right lower lobe. She has been referred to pulmonary for further evaluation (5) Hypercalcemia Status: Chronic Low normal PTH, borderline increased ionized calcium, no bone metastases, no chest lesions (workup 08/2016), low PTH-RP, no clinically palpable neck mass, normal calcitonin Her calcium level is actually normal at this time - Time Spent with Patient Greater than 50% of time spent with patient was for coordination of care (as documented) and [id number] counseling of patient and/or family. Dictated By: Mohsen Steiner MD DD/ 1455 Signed By: <Electronically signed by Mohsen Steiner MD> 03/16/17 1511 [facility] Work Phone: [phone] Progress note Author Mohsen Steiner [facility] February 28, 2017 2:51pm Note Date/Time February 28, 2017 2:29pm [facility] [place] [address] Hem/Onc Follow Up Note - OP Signed Patient: Myla Brothers MR#: [id number] : 1950 Acct:[id number] Age/Sex: 66 / F Type: REG RCR Copies to: Mario Og DO~ Subjective Date/Time of Service: Date of Service: 02/28/2017 Time of Service: 14:26 Chief Complaint: Patient here to follow up after rheumatology referral. HPI: Patient returns to the clinic for a pre-scheduled follow-up visit that reports that 1. She was seen at [facility] rheumatology ROS Details: All systems reviewed & no additional complaints except as documented Home Medications & Allergies Allergies Allergy/AdvReac Type Severity Reaction Status Date / Time Sulfa (Sulfonamide Allergy Unknown Hives Verified 01/07/17 09:33 Antibiotics) Home Medications Medication Instructions Recorded Confirmed Type rivaroxaban 20 mg PO DAILY #30 tab 01/04/17 02/28/17 Rx albuterol sulfate 1 puff INHALATION Q6H PRN 01/05/17 01/05/17 History ascorbic acid (vitamin C) [Vitamin 500 mg PO DAILY 01/05/17 01/05/17 History C] aspirin [Aspir-Low] 81 mg PO DAILY 01/05/17 01/05/17 History budesonide-formoterol [Symbicort] 2 puff INHALATION DAILY 01/05/17 01/05/17 History esomeprazole magnesium 40 mg PO DAILY 01/05/17 01/05/17 History fluticasone 2 spry INTRANASAL DAILY 01/05/17 01/05/17 History magnesium oxide 250 mg PO DAILY 01/05/17 01/05/17 History montelukast 10 mg PO DAILY 01/05/17 01/05/17 History pravastatin 40 mg PO DAILY 01/05/17 01/05/17 History pregabalin [Lyrica] 75 mg PO BID 01/05/17 01/05/17 History spironolactone 25 mg PO BID 01/05/17 01/05/17 History tiotropium bromide [Spiriva 2 puff INHALATION Q24H 01/05/17 01/05/17 History Respimat] apixaban [Eliquis] 1 tab PO BID 30 Days #74 tab 01/12/17 02/03/17 Rx biotin 1 mg PO DAILY 02/28/17 02/28/17 History colchicine 0.6 mg PO DAILY 02/28/17 02/28/17 History Objective - Resuscitation Status Resuscitation Status: Full Code - Height/Weight Height/Weight: Height 5 ft 6 in Weight 86.591 kg - Vital Signs Vital Signs: Last Vital Signs Temp 98.2 F 02/28/17 08:09 Pulse 88 02/28/17 08:09 Resp 16 02/28/17 08:09 BP 129/74 02/28/17 08:09 Pulse Ox 96 02/28/17 08:09 - Pain Left Leg Pain Intensity: 10 - Emotional Needs Assessment Emotional Needs Assessment: Emotional Needs Identified? No Distress Screening Total 0 Support System Spouse - ECOG Performance Status ECOG Score: 1 Physical Exam - Routine HEENT Exam Head: normocephalic, atraumatic Eye: EOMI, PERRL, normal accommodation ENT: mucous membranes moist, dentition normal - Routine Neck Exam supple, full ROM - Routine Chest/Breast/Axilla Exam Chest wall: no tenderness - Routine Respiratory Exam no accessory muscle use, no respiratory distress - Routine Cardiovascular Exam RRR - Routine Abdominal Exam soft, normoactive bowel sounds, no tenderness, no distended - Routine Extremities Exam Present: full ROM, pulses intact, normal capillary refill, other - Redness and swelling of left lower extremity - Routine Back/Spine/Pelvis Exam Back/Spine: Present: full ROM - Routine Skin Exam Present: intact, warm, normal turgor - Routine Neurological Exam Present: alert, oriented X3, normal reflexes, normal speech - Routine Psychiatric Exam Present: normal affect, normal thought process Results - Labs CBC & Chem 7: 01/03/17 17:45 01/03/17 17:45 Labs: Laboratory Last Values WBC 7.6 X10E3/uL (3.8-11.6) 01/03/17 17:45 RBC 3.93 x10E6/uL (3.60-5.00) 01/03/17 17:45 Hgb 12.1 g/dL (11.8-15.4) 01/03/17 17:45 Hct 36.3 % (34.0-46.4) 01/03/17 17:45 MCV 92.4 fl (80-100) 01/03/17 17:45 MCH 30.8 pg (24.7-34.3) 01/03/17 17:45 MCHC 33.4 g/dL (32.0-35.0) 01/03/17 17:45 RDW 14.5 % (11.9-15.3) 01/03/17 17:45 Plt Count 429 x10E3/uL (150-450) 01/03/17 17:45 MPV 8.2 fl (6.3-10.7) 01/03/17 17:45 Neut % (Auto) 57.8 % (.) 01/03/17 17:45 Lymph % (Auto) 27.4 % (.) 01/03/17 17:45 [place] % (Auto) 12.7 % (.) 01/03/17 17:45 Eos % (Auto) 1.5 % (.) 01/03/17 17:45 Baso % (Auto) 0.6 % (.) 01/03/17 17:45 Neut # (Auto) 4.4 x10E3/uL (1.8-7.7) 01/03/17 17:45 Lymph # (Auto) 2.1 x10E3/uL (1.00-4.8) 01/03/17 17:45 [place] # (Auto) 1.0 x10E3/uL (0.0-0.8) H 01/03/17 17:45 Eos # (Auto) 0.1 x10E3/uL (0.0-0.45) 01/03/17 17:45 Baso # (Auto) 0.0 x10E3/uL (0.0-0.2) 01/03/17 17:45 PHA Creatinine Clear N/A 01/03/17 17:45 Sodium 139 mmol/L (136-146) 01/03/17 17:45 Potassium 4.1 mmol/L (3.5-5.1) 01/03/17 17:45 Chloride 98 mmol/L (95-114) 01/03/17 17:45 Carbon Dioxide 29.5 mmol/L (22.0-30.0) 01/03/17 17:45 BUN 12 mg/dL (9-23) 01/03/17 17:45 Creatinine 1.00 mg/dL (0.44-1.03) 01/03/17 17:45 Est GFR ( Amer) > 60 01/03/17 17:45 Est GFR (Non-Af Amer) 56 01/03/17 17:45 Glucose 107 mg/dL (70-100) H 01/03/17 17:45 POC Glucose 122 mg/dl 01/07/17 08:41 Calcium 9.4 mg/dL (8.2-10.2) 01/03/17 17:45 Total Bilirubin 0.3 mg/dL (0.3-1.2) 01/03/17 17:45 AST 30 U/L (10-42) 01/03/17 17:45 ALT 37 U/L (10-60) 01/03/17 17:45 Alkaline Phosphatase 89 U/L (32-92) 01/03/17 17:45 Total Protein 6.9 gm/dL (6.1-7.9) 01/03/17 17:45 Albumin 3.3 gm/dL (3.2-5.5) 01/03/17 17:45 Globulin 3.6 01/03/17 17:45 Albumin/Globulin Ratio 0.9 01/03/17 17:45 Assessment and Plan (1) Breast cancer, right Status: Chronic 1. 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 2. Tumor was ER negative, VT weak, and HER-2 nonamplified. 3. She underwent mastectomy at [place] in 02/2015. Completed dose dense AC X4 and Taxol X 12 in August 2015. 4. Anastrazole with calcium and vitamin D started in August 2015, Calcium and vitamin D discontinued 07/2016 Anastrazole stopped in 01/2017 when she developed vasculitis although there is no proven association at this time 5. Next mammogram was to be in January 2017 6. She was noted to have pulmonary nodules and a PET scan was done in January 2017 that showed A. Two small but hypermetabolic left axillary lymph nodes. She subsequently had an EUS and Dr Hess noted that the lymph nodes had actually shrunken is size at the time of his evaluation. B. Small but fairly intense focus of hypermetabolic activity either in the lower lobe of the right lung adjacent to the esophagus or in the esophagus itself at the level of T9. EGD and EUS in 01/2017 were both negative C. Small pleural-based nodular density demonstrating mild uptake in the lower lobe of the left lung posteriorly. Our local radiologist said that it was too small for biopsy. D. Colonic diverticulosis and focus of increased uptake in the sigmoid colon versus physiologic activity in the distal left ureter. E. Heterogeneous bony uptake, potentially therapy-induced. A follow-up PET scan has been requested for the week of March 09. (2) Pulmonary embolism Status: Chronic She is currently on Eliquis (3) Vasculitis Status: Acute She was seen by rheumatology at [facility]. The ordered some initial workup that was unrevealing. She has a follow-up with them soon (4) Lung nodules Status: Acute Multiple new lung nodules were reported on the PET scan done in January 2017. Most of them are subcentimeter in size. There is one left pleural-based nodule that was reported to be about 1.3 cm in size. In the past I had spoken with Dr. Portillo to see if the nodule could be easily biopsied. He he looked at her scan but did not feel comfortable biopsying the nodule. He said it was too small. We are requesting a follow-up PET scan to be done soon (5) Hypercalcemia Status: Chronic Low normal PTH, borderline increased ionized calcium, no bone metastases, no chest lesions (workup 08/2016), low PTH-RP, no clinically palpable neck mass, normal calcitonin Her calcium level is actually normal at this time - Time Spent with Patient Greater than 50% of time spent with patient was for coordination of care (as documented) and [id number] counseling of patient and/or family. Dictated By: Mohsen Steiner MD DD/ [id number] Signed By: <Electronically signed by Mohsen Steiner MD> 02/28/17 1451 [facility] Work Phone: [phone] 446-490911-02-2017 Progress note Author Mohsen Steiner [facility] February 03, 2017 9:03am Note Date/Time February 03, 2017 9 :01am [facility] [place] [address] Hem/Onc Follow Up Note - OP Signed Patient: Myla Brothers MR#: [id number] : 1950 Acct:[id number] Age/Sex: 66 / F Type: REG RCR Copies to: Mario Og DO~ Subjective Date/Time of Service: Date of Service: 02/03/2017 Time of Service: 08:58 Chief Complaint: Patient here to follow up after EGD and EUS. HPI: Patient returns to the clinic for a pre-scheduled follow-up visit that reports that 1. She had an EUS at [facility] by Dr. Tara Hess and no significant abnormality was found in the esophagus and the surrounding region, and the axillary lymphadenopathy also appeared to have subsided ROS Details: All systems reviewed & no additional complaints except as documented Home Medications & Allergies Allergies Allergy/AdvReac Type Severity Reaction Status Date / Time Sulfa (Sulfonamide Allergy Unknown Hives Verified 01/07/17 09:33 Antibiotics) Home Medications Medication Instructions Recorded Confirmed Type rivaroxaban 20 mg PO DAILY #30 tab 01/04/17 Rx albuterol sulfate 1 puff INHALATION Q6H PRN 01/05/17 01/05/17 History anastrozole 1 mg PO DAILY 01/05/17 01/05/17 History ascorbic acid (vitamin C) [Vitamin 500 mg PO DAILY 01/05/17 01/05/17 History C] aspirin [Aspir-Low] 81 mg PO DAILY 01/05/17 01/05/17 History budesonide-formoterol [Symbicort] 2 puff INHALATION DAILY 01/05/17 01/05/17 History esomeprazole magnesium 40 mg PO DAILY 01/05/17 01/05/17 History fluticasone 2 spry INTRANASAL DAILY 01/05/17 01/05/17 History magnesium oxide 250 mg PO DAILY 01/05/17 01/05/17 History montelukast 10 mg PO DAILY 01/05/17 01/05/17 History pravastatin 40 mg PO DAILY 01/05/17 01/05/17 History pregabalin [Lyrica] 75 mg PO BID 01/05/17 01/05/17 History spironolactone 25 mg PO BID 01/05/17 01/05/17 History tiotropium bromide [Spiriva 2 puff INHALATION Q24H 01/05/17 01/05/17 History Respimat] apixaban [Eliquis] 1 tab PO BID 30 Days #74 tab 01/12/17 02/03/17 Rx Objective - Resuscitation Status Resuscitation Status: Full Code - Height/Weight Height/Weight: Height 5 ft 6 in Weight 85.91 kg - Vital Signs Vital Signs: Last Vital Signs Temp 98.6 F 02/03/17 08:09 Pulse 101 H 02/03/17 08:09 Resp 16 02/03/17 08:09 BP 147/75 H 02/03/17 08:09 Pulse Ox 92 L 02/03/17 08:09 - Pain Left Leg Pain Intensity: 10 - Emotional Needs Assessment Emotional Needs Assessment: Emotional Needs Identified? No Distress Screening Total 0 Support System Spouse - ECOG Performance Status ECOG Score: 1 Physical Exam - Routine HEENT Exam Head: normocephalic, atraumatic Eye: EOMI, PERRL, normal accommodation ENT: mucous membranes moist, dentition normal - Routine Neck Exam supple, full ROM - Routine Chest/Breast/Axilla Exam Chest wall: no tenderness - Routine Respiratory Exam no accessory muscle use, no respiratory distress - Routine Cardiovascular Exam RRR - Routine Abdominal Exam soft, normoactive bowel sounds, no tenderness, no distended - Routine Extremities Exam Present: full ROM, pulses intact, normal capillary refill, other - Redness and swelling of left lower extremity - Routine Back/Spine/Pelvis Exam Back/Spine: Present: full ROM - Routine Skin Exam Present: intact, warm, normal turgor - Routine Neurological Exam Present: alert, oriented X3, normal reflexes, normal speech - Routine Psychiatric Exam Present: normal affect, normal thought process Results - Labs CBC & Chem 7: 01/03/17 17:45 01/03/17 17:45 Labs: Laboratory Last Values WBC 7.6 X10E3/uL (3.8-11.6) 01/03/17 17:45 RBC 3.93 x10E6/uL (3.60-5.00) 01/03/17 17:45 Hgb 12.1 g/dL (11.8-15.4) 01/03/17 17:45 Hct 36.3 % (34.0-46.4) 01/03/17 17:45 MCV 92.4 fl (80-100) 01/03/17 17:45 MCH 30.8 pg (24.7-34.3) 01/03/17 17:45 MCHC 33.4 g/dL (32.0-35.0) 01/03/17 17:45 RDW 14.5 % (11.9-15.3) 01/03/17 17:45 Plt Count 429 x10E3/uL (150-450) 01/03/17 17:45 MPV 8.2 fl (6.3-10.7) 01/03/17 17:45 Neut % (Auto) 57.8 % (.) 01/03/17 17:45 Lymph % (Auto) 27.4 % (.) 01/03/17 17:45 [place] % (Auto) 12.7 % (.) 01/03/17 17:45 Eos % (Auto) 1.5 % (.) 01/03/17 17:45 Baso % (Auto) 0.6 % (.) 01/03/17 17:45 Neut # (Auto) 4.4 x10E3/uL (1.8-7.7) 01/03/17 17:45 Lymph # (Auto) 2.1 x10E3/uL (1.00-4.8) 01/03/17 17:45 [place] # (Auto) 1.0 x10E3/uL (0.0-0.8) H 01/03/17 17:45 Eos # (Auto) 0.1 x10E3/uL (0.0-0.45) 01/03/17 17:45 Baso # (Auto) 0.0 x10E3/uL (0.0-0.2) 01/03/17 17:45 PHA Creatinine Clear N/A 01/03/17 17:45 Sodium 139 mmol/L (136-146) 01/03/17 17:45 Potassium 4.1 mmol/L (3.5-5.1) 01/03/17 17:45 Chloride 98 mmol/L (95-114) 01/03/17 17:45 Carbon Dioxide 29.5 mmol/L (22.0-30.0) 01/03/17 17:45 BUN 12 mg/dL (9-23) 01/03/17 17:45 Creatinine 1.00 mg/dL (0.44-1.03) 01/03/17 17:45 Est GFR ( Amer) > 60 01/03/17 17:45 Est GFR (Non-Af Amer) 56 01/03/17 17:45 Glucose 107 mg/dL (70-100) H 01/03/17 17:45 POC Glucose 122 mg/dl 01/07/17 08:41 Calcium 9.4 mg/dL (8.2-10.2) 01/03/17 17:45 Total Bilirubin 0.3 mg/dL (0.3-1.2) 01/03/17 17:45 AST 30 U/L (10-42) 01/03/17 17:45 ALT 37 U/L (10-60) 01/03/17 17:45 Alkaline Phosphatase 89 U/L (32-92) 01/03/17 17:45 Total Protein 6.9 gm/dL (6.1-7.9) 01/03/17 17:45 Albumin 3.3 gm/dL (3.2-5.5) 01/03/17 17:45 Globulin 3.6 01/03/17 17:45 Albumin/Globulin Ratio 0.9 01/03/17 17:45 Assessment and Plan (1) Breast cancer, right Status: Chronic 1. 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 2. Tumor was ER negative, VT weak, and HER-2 nonamplified. 3. She underwent mastectomy at [place] in 02/2015. Completed dose dense AC X4 and Taxol X 12 in August 2015. 4. Anastrazole with calcium and vitamin D started in August 2015, Calcium and vitamin D discontinued 07/2016 Anastrazole stopped in 01/2017 when she developed vasculitis although there is no proven association at this time 5. Next mammogram was to be in January 2017 6. She was noted to have pulmonary nodules so a PET scan was requested that showed A. Two small but hypermetabolic left axillary lymph nodes. At the time of EUS Dr Hess noted that the lymph nodes had actually shrunken is gavino B. Small but fairly intense focus of hypermetabolic activity either in the lower lobe of the right lung adjacent to the esophagus or in the esophagus itself at the level of T9. EGD and EUS in 01/2017 was negative C. Small pleural-based nodular density demonstrating mild uptake in the lower lobe of the left lung posteriorly. Our local radiologist said that it was too small for biopsy. D. Colonic diverticulosis and focus of increased uptake in the sigmoid colon versus physiologic activity in the distal left ureter. E. Heterogeneous bony uptake, potentially therapy-induced. (2) Pulmonary embolism Status: Chronic She was started on Xarelto and she is concerned that is causing hair loss. We switched her anticoagulation to Eliquis (3) Vasculitis Status: Acute She was referred to the [facility] but her appointment is in April which is too far out. We are searching for a sooner appointment elsewhere (4) Lung nodules Status: Acute Multiple new lung nodules have all of a sudden appeared. Most of them are subcentimeter in size. There is one left pleural-based nodule that was reported to be about 1.3 cm in size. I called and spoke with Dr. Portillo to see if that nodule could be easily biopsied. He he looked at her CT scan but did not feel comfortable biopsying the nodule. He said it was too small. Please review the discussion on her most recent PET scan above (5) Hypercalcemia Status: Chronic Low normal PTH, borderline increased ionized calcium, no bone metastases, no chest lesions (workup 08/2016), low PTH-RP, no clinically palpable neck mass, normal calcitonin Her calcium level is actually normal at this time - Time Spent with Patient Greater than 50% of time spent with patient was for coordination of care (as documented) and [id number] counseling of patient and/or family. Dictated By: Mohsen Steiner MD DD/ [id number] Signed By: <Electronically signed by Mohsen Steiner MD> 02/03/17 0903 [facility] Work Phone: [phone] [phone] Progress note Author Mohsen Steiner [facility] January 12, 2017 10:59pm Note Date/Time January 12, 2017 1 0:57pm [facility] [place] [address] Hem/Onc Follow Up Note - OP Signed Patient: Myla Brothers MR#: [id number] : 1950 Acct:[id number] Age/Sex: 66 / F Type: REG RCR Copies to: Mario Og DO~ Subjective Date/Time of Service: Date of Service: 01/12/2017 Time of Service: 22:52 Chief Complaint: Patient is here to follow up PET scan results. HPI: Patient returns to the clinic for a pre-scheduled follow-up visit that reports that 1. She was diagnosed with vasculitis at [facility] 2. She was found to have pulmonary embolism on her routine chest CT scan ROS Details: All systems reviewed & no additional complaints except as documented Home Medications & Allergies Allergies Allergy/AdvReac Type Severity Reaction Status Date / Time Sulfa (Sulfonamide Allergy Unknown Hives Verified 01/07/17 09:33 Antibiotics) Home Medications Medication Instructions Recorded Confirmed Type rivaroxaban 20 mg PO DAILY #30 tab 01/04/17 Rx albuterol sulfate 1 puff INHALATION Q6H PRN 01/05/17 01/05/17 History anastrozole 1 mg PO DAILY 01/05/17 01/05/17 History ascorbic acid (vitamin C) [Vitamin 500 mg PO DAILY 01/05/17 01/05/17 History C] aspirin [Aspir-Low] 81 mg PO DAILY 01/05/17 01/05/17 History budesonide-formoterol [Symbicort] 2 puff INHALATION DAILY 01/05/17 01/05/17 History esomeprazole magnesium 40 mg PO DAILY 01/05/17 01/05/17 History fluticasone 2 spry INTRANASAL DAILY 01/05/17 01/05/17 History magnesium oxide 250 mg PO DAILY 01/05/17 01/05/17 History montelukast 10 mg PO DAILY 01/05/17 01/05/17 History pravastatin 40 mg PO DAILY 01/05/17 01/05/17 History pregabalin [Lyrica] 75 mg PO BID 01/05/17 01/05/17 History rivaroxaban [Xarelto] 15 mg PO BID 01/05/17 01/05/17 History rivaroxaban [Xarelto] 15 mg PO BID 21 Days #42 tab 01/05/17 Rx spironolactone 25 mg PO BID 01/05/17 01/05/17 History tiotropium bromide [Spiriva 2 puff INHALATION Q24H 01/05/17 01/05/17 History Respimat] apixaban [Eliquis] 1 tab PO BID 30 Days #74 tab 01/12/17 Rx Objective - Resuscitation Status Resuscitation Status: Full Code - Height/Weight Height/Weight: Height 5 ft 6 in Weight 85.139 kg - Vital Signs Vital Signs: Last Vital Signs Temp 99.1 F H 01/12/17 16:05 Pulse 93 H 01/12/17 16:05 Resp 16 01/12/17 16:05 BP 136/81 01/12/17 16:05 Pulse Ox 94 L 01/12/17 16:05 - Pain Left Leg Pain Intensity: 10 - Emotional Needs Assessment Emotional Needs Assessment: Emotional Needs Identified? No Distress Screening Total 0 Support System Spouse - ECOG Performance Status ECOG Score: 1 Physical Exam - Routine HEENT Exam Head: normocephalic, atraumatic Eye: EOMI, PERRL, normal accommodation ENT: mucous membranes moist, dentition normal - Routine Neck Exam supple, full ROM - Routine Chest/Breast/Axilla Exam Chest wall: no tenderness - Routine Respiratory Exam no accessory muscle use, no respiratory distress - Routine Cardiovascular Exam RRR - Routine Abdominal Exam soft, normoactive bowel sounds, no tenderness, no distended - Routine Extremities Exam Present: full ROM, pulses intact, normal capillary refill, other - Redness and swelling of left lower extremity - Routine Back/Spine/Pelvis Exam Back/Spine: Present: full ROM - Routine Skin Exam Present: intact, warm, normal turgor - Routine Neurological Exam Present: alert, oriented X3, normal reflexes, normal speech - Routine Psychiatric Exam Present: normal affect, normal thought process Results - Labs CBC & Chem 7: 01/03/17 17:45 01/03/17 17:45 Labs: Laboratory Last Values WBC 7.6 X10E3/uL (3.8-11.6) 01/03/17 17:45 RBC 3.93 x10E6/uL (3.60-5.00) 01/03/17 17:45 Hgb 12.1 g/dL (11.8-15.4) 01/03/17 17:45 Hct 36.3 % (34.0-46.4) 01/03/17 17:45 MCV 92.4 fl (80-100) 01/03/17 17:45 MCH 30.8 pg (24.7-34.3) 01/03/17 17:45 MCHC 33.4 g/dL (32.0-35.0) 01/03/17 17:45 RDW 14.5 % (11.9-15.3) 01/03/17 17:45 Plt Count 429 x10E3/uL (150-450) 01/03/17 17:45 MPV 8.2 fl (6.3-10.7) 01/03/17 17:45 Neut % (Auto) 57.8 % (.) 01/03/17 17:45 Lymph % (Auto) 27.4 % (.) 01/03/17 17:45 [place] % (Auto) 12.7 % (.) 01/03/17 17:45 Eos % (Auto) 1.5 % (.) 01/03/17 17:45 Baso % (Auto) 0.6 % (.) 01/03/17 17:45 Neut # (Auto) 4.4 x10E3/uL (1.8-7.7) 01/03/17 17:45 Lymph # (Auto) 2.1 x10E3/uL (1.00-4.8) 01/03/17 17:45 [place] # (Auto) 1.0 x10E3/uL (0.0-0.8) H 01/03/17 17:45 Eos # (Auto) 0.1 x10E3/uL (0.0-0.45) 01/03/17 17:45 Baso # (Auto) 0.0 x10E3/uL (0.0-0.2) 01/03/17 17:45 PHA Creatinine Clear N/A 01/03/17 17:45 Sodium 139 mmol/L (136-146) 01/03/17 17:45 Potassium 4.1 mmol/L (3.5-5.1) 01/03/17 17:45 Chloride 98 mmol/L (95-114) 01/03/17 17:45 Carbon Dioxide 29.5 mmol/L (22.0-30.0) 01/03/17 17:45 BUN 12 mg/dL (9-23) 01/03/17 17:45 Creatinine 1.00 mg/dL (0.44-1.03) 01/03/17 17:45 Est GFR ( Amer) > 60 01/03/17 17:45 Est GFR (Non-Af Amer) 56 01/03/17 17:45 Glucose 107 mg/dL (70-100) H 01/03/17 17:45 POC Glucose 122 mg/dl 01/07/17 08:41 Calcium 9.4 mg/dL (8.2-10.2) 01/03/17 17:45 Total Bilirubin 0.3 mg/dL (0.3-1.2) 01/03/17 17:45 AST 30 U/L (10-42) 01/03/17 17:45 ALT 37 U/L (10-60) 01/03/17 17:45 Alkaline Phosphatase 89 U/L (32-92) 01/03/17 17:45 Total Protein 6.9 gm/dL (6.1-7.9) 01/03/17 17:45 Albumin 3.3 gm/dL (3.2-5.5) 01/03/17 17:45 Globulin 3.6 01/03/17 17:45 Albumin/Globulin Ratio 0.9 01/03/17 17:45 Assessment and Plan (1) Breast cancer, right Status: Chronic 1. 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 2. Tumor was ER negative, VT weak, and HER-2 nonamplified. 3. She underwent mastectomy at [place] in 02/2015. Completed dose dense AC X4 and Taxol X 12 in August 2015. 4. Anastrazole with calcium and vitamin D started in August 2015, Calcium and vitamin D discontinued 07/2016 Anastrazole stopped in 01/2017 when she developed vasculitis although no proven association at this time 5. Next mammogram will be in January 2017 6. She was noted to have pulmonary nodules so a PET scan was requested that showed A. Two small but hypermetabolic left axillary lymph nodes. US of the axilla has been requested B. Small but fairly intense focus of hypermetabolic activity either in the lower lobe of the right lung adjacent to the esophagus or in the esophagus itself at the level of T9. We will request EGD and EUS, however she will have to stop Eliquis if biopsy will be needed. C. Small pleural-based nodular density demonstrating mild uptake in the lower lobe of the left lung posteriorly. Our local radiologist said that it was too small for biopsy. D. Colonic diverticulosis and focus of increased uptake in the sigmoid colon versus physiologic activity in the distal left ureter. E. Heterogeneous bony uptake, potentially therapy-induced. (2) Pulmonary embolism Status: Acute She was started on Xarelto and she is concerned that is causing hair loss. We switched her anticoagulation to Eliquis (3) Vasculitis Status: Acute We will be referring her to the [facility] for evaluation and management. (4) Lung nodules Status: Acute Multiple new lung nodules have all of a sudden appeared. Most of them are subcentimeter in size. There is one left pleural-based nodule that was reported to be about 1.3 cm in size. I called and spoke with Dr. Portillo to see if that nodule could be easily biopsied. He he looked at her CT scan but did not feel comfortable biopsying the nodule. He said it was too small. Please review the discussion on her most recent PET scan above (5) Hypercalcemia Status: Chronic Low normal PTH, borderline increased ionized calcium, no bone metastases, no chest lesions (workup 08/2016), low PTH-RP, no clinically palpable neck mass, normal calcitonin She does not have any significant hypercalcemia at this time - Time Spent with Patient Greater than 50% of time spent with patient was for coordination of care (as documented) and [id number] counseling of patient and/or family. Dictated By: Mohsen Steiner MD DD/ 51 Signed By: <Electronically signed by Mohsen Steiner MD> 01/12/172258 [facility] Work Phone: [phone] 194-756610-04-2017 Progress note Author Mohsen Steiner [facility] January 05, 2017 4:45pm Note Date/Time January 05, 2017 4: 38pm [facility] [address] Hem/Onc Follow Up Note - OP Signed Patient: Myla Brothers MR#: [id number] : 1950 Acct:[id number] Age/Sex: 66 / F Type: REG RCR cc: Mario Og DO~ Subjective Date/Time of Service: Date of Service: 01/05/2017 Time of Service: 16:37 Chief Complaint: Patient is here for follow up to CT scan patient has been having ongoing vascular problems. HPI: Patient returns to the clinic for a pre-scheduled follow-up visit that reports that 1. She was diagnosed with vasculitis at [facility] 2. She was found to have pulmonary embolism on her routine chest CT scan ROS Details: All systems reviewed & no additional complaints except as documented Home Medications & Allergies Allergies Allergy/AdvReac Type Severity Reaction Status Date / Time Sulfa (Sulfonamide Allergy Unknown Unknown Unverified 01/03/17 17:57 Antibiotics) Reaction Home Medications Medication Instructions Recorded Confirmed Type albuterol sulfate 1 puff INHALATION Q6H PRN 01/05/17 01/05/17 History anastrozole 1 mg PO DAILY 01/05/17 01/05/17 History ascorbic acid (vitamin C) [Vitamin 500 mg PO DAILY 01/05/17 01/05/17 History C] aspirin [Aspir-Low] 81 mg PO DAILY 01/05/17 01/05/17 History budesonide-formoterol [Symbicort] 2 puff INHALATION DAILY 01/05/17 01/05/17 History esomeprazole magnesium 40 mg PO DAILY 01/05/17 01/05/17 History fluticasone 2 spry INTRANASAL DAILY 01/05/17 01/05/17 History magnesium oxide 250 mg PO DAILY 01/05/17 01/05/17 History montelukast 10 mg PO DAILY 01/05/17 01/05/17 History pravastatin 40 mg PO DAILY 01/05/17 01/05/17 History pregabalin [Lyrica] 75 mg PO BID 01/05/17 01/05/17 History rivaroxaban [Xarelto] 15 mg PO BID 01/05/17 01/05/17 History spironolactone 25 mg PO BID 01/05/17 01/05/17 History tiotropium bromide [Spiriva 2 puff INHALATION Q24H 01/05/17 01/05/17 History Respimat] Objective - Resuscitation Status Resuscitation Status: Full Code - Height/Weight Height/Weight: Height 5 ft 6 in Weight 85.275 kg - Vital Signs Vital Signs: Last Vital Signs Temp 98.6 F 01/05/17 15:46 Resp 18 01/05/17 15:46 BP 133/84 01/05/17 15:46 Pulse Ox 93 L 01/05/17 15:46 - Pain Left Leg Pain Intensity: 10 - Emotional Needs Assessment Emotional Needs Assessment: Emotional Needs Identified? No Distress Screening Total 0 Support System Spouse - ECOG Performance Status ECOG Score: 1 Physical Exam - Routine HEENT Exam Head: normocephalic, atraumatic Eye: EOMI, PERRL, normal accommodation ENT: mucous membranes moist, dentition normal - Routine Neck Exam supple, full ROM - Routine Chest/Breast/Axilla Exam Chest wall: no tenderness - Routine Respiratory Exam no accessory muscle use, no respiratory distress - Routine Cardiovascular Exam RRR - Routine Abdominal Exam soft, normoactive bowel sounds, no tenderness, no distended - Routine Extremities Exam Present: full ROM, pulses intact, normal capillary refill, other - Redness and swelling of left lower extremity - Routine Back/Spine/Pelvis Exam Back/Spine: Present: full ROM - Routine Skin Exam Present: intact, warm, normal turgor - Routine Neurological Exam Present: alert, oriented X3, normal reflexes, normal speech - Routine Psychiatric Exam Present: normal affect, normal thought process Results - Labs CBC & Chem 7: 01/03/17 17:45 01/03/17 17:45 Labs: Laboratory Last Values WBC 7.6 X10E3/uL (3.8-11.6) 01/03/17 17:45 RBC 3.93 x10E6/uL (3.60-5.00) 01/03/17 17:45 Hgb 12.1 g/dL (11.8-15.4) 01/03/17 17:45 Hct 36.3 % (34.0-46.4) 01/03/17 17:45 MCV 92.4 fl (80-100) 01/03/17 17:45 MCH 30.8 pg (24.7-34.3) 01/03/17 17:45 MCHC 33.4 g/dL (32.0-35.0) 01/03/17 17:45 RDW 14.5 % (11.9-15.3) 01/03/17 17:45 Plt Count 429 x10E3/uL (150-450) 01/03/17 17:45 MPV 8.2 fl (6.3-10.7) 01/03/17 17:45 Neut % (Auto) 57.8 % (.) 01/03/17 17:45 Lymph % (Auto) 27.4 % (.) 01/03/17 17:45 [place] % (Auto) 12.7 % (.) 01/03/17 17:45 Eos % (Auto) 1.5 % (.) 01/03/17 17:45 Baso % (Auto) 0.6 % (.) 01/03/17 17:45 Neut # (Auto) 4.4 x10E3/uL (1.8-7.7) 01/03/17 17:45 Lymph # (Auto) 2.1 x10E3/uL (1.00-4.8) 01/03/17 17:45 [place] # (Auto) 1.0 x10E3/uL (0.0-0.8) H 01/03/17 17:45 Eos # (Auto) 0.1 x10E3/uL (0.0-0.45) 01/03/17 17:45 Baso # (Auto) 0.0 x10E3/uL (0.0-0.2) 01/03/17 17:45 PHA Creatinine Clear N/A 01/03/17 17:45 Sodium 139 mmol/L (136-146) 01/03/17 17:45 Potassium 4.1 mmol/L (3.5-5.1) 01/03/17 17:45 Chloride 98 mmol/L (95-114) 01/03/17 17:45 Carbon Dioxide 29.5 mmol/L (22.0-30.0) 01/03/17 17:45 BUN 12 mg/dL (9-23) 01/03/17 17:45 Creatinine 1.00 mg/dL (0.44-1.03) 01/03/17 17:45 Est GFR ( Amer) > 60 01/03/17 17:45 Est GFR (Non-Af Amer) 56 01/03/17 17:45 Glucose 107 mg/dL (70-100) H 01/03/17 17:45 Calcium 9.4 mg/dL (8.2-10.2) 01/03/17 17:45 Total Bilirubin 0.3 mg/dL (0.3-1.2) 01/03/17 17:45 AST 30 U/L (10-42) 01/03/17 17:45 ALT 37 U/L (10-60) 01/03/17 17:45 Alkaline Phosphatase 89 U/L (32-92) 01/03/17 17:45 Total Protein 6.9 gm/dL (6.1-7.9) 01/03/17 17:45 Albumin 3.3 gm/dL (3.2-5.5) 01/03/17 17:45 Globulin 3.6 01/03/17 17:45 Albumin/Globulin Ratio 0.9 01/03/17 17:45 Assessment and Plan (1) Breast cancer, right Status: Chronic 1. 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 2. Tumor was ER negative, VT weak, and HER-2 nonamplified. 3. She underwent mastectomy at [place] in 02/2015. Completed dose dense AC X4 and Taxol X 12 in August 2015. 4. Anastrazole with calcium and vitamin D started in August 2015, calcium and vitamin D discontinued 07/2016 5. Next mammogram will be in January 2017 (2) Pulmonary embolism Status: Acute She has been started on Xarelto. Etiology of pulmonary embolism is not totally clear. Patient reports that in November, she was admitted at [facility] and was diagnosed with vasculitis affecting the left lower extremity. Anecdotally, at the time a Doppler ultrasound had not shown deep vein thrombosis. Presently her left lower extremity appears to be swollen and we areconcerned that that is the source of the pulmonary embolism. A stat Doppler venous ultrasound has been requested (3) Vasculitis Status: Acute Records have been requested from Dr. Valentino's office. For the time being weare discontinuing the Arimidex until further information is available (4) Lung nodules Status: Acute Multiple new lung nodules have all of a sudden appeared. Most of them are subcentimeter in size. There is one left pleural-based nodule that was reportedto be about 1.3 cm in size. I called and spoke with Dr. Portillo to see if that nodule could be easily biopsied. He he looked at her CT scan but did not feel comfortable biopsying the nodule. He said it was too small (5) Hypercalcemia Status: Chronic Low normal PTH, borderline increased ionized calcium, no bone metastases, no chest lesions (workup 08/2016), low PTH-RP, no clinically palpable neck mass, normal calcitonin - Time Spent with Patient Greater than 50% of time spent with patient was for coordination of care (as documented) and [id number] counseling of patient and/or family. Dictated By: Mohsen Steiner MD DD/ [id number] Signed By: <Electronically signed by Mohsen Steiner MD> 01/05/17 [address] [facility] Work Phone: [phone]) 581-861510-03-2017 Progress note Author Jefferson Rice [facility] January 04, 2017 11:22am Note Date/Time January 04, 2017 11 :22am [facility] at [address] [address] Hem/Onc Follow Up Note - OP Signed Patient: Myla Brothers MR#: [id number] : 1950 Acct:[id number] Age/Sex: 66 / F Type: REG RCR cc: Mario Og DO~ Subjective Date/Time of Service: Date of Service: 01/04/2017 Time of Service: 11:20 HPI: I was called by Dr. Busby, radiology, patient was found to have an incidental finding of right lower lobe pulmonary embolism CAT scan. I communicated with Dr. Steiner, will start patient on Xarelto. I spoke with the patient, Prescription was E-prescribed to her pharmacy at [facility]. 15 mg twice daily, for 3 weeks, followed by 20 mg p.o. daily. It is sounds like a provoked process due to her recent hospitalization for lower extremity cellulitis. Checking her refill of 2. Planned course of 3 months. Duration of anticoagulation will be deferred to Dr. Steiner. The patient has a follow-up with Dr. Steiner tomorrow. Home Medications & Allergies Allergies Allergy/AdvReac Type Severity Reaction Status Date / Time Sulfa (Sulfonamide Allergy Unknown Unknown Unverified 01/03/17 17:57 Antibiotics) Reaction Results - Labs CBC & Chem 7: 01/03/17 17:45 01/03/17 17:45 - Imaging CT scan - chest Status: image reviewed by me Assessment and Plan - Time Spent with Patient Greater than 50% of time spent with patient was for coordination of care (as documented) and [id number] counseling of patient and/or family. Dictated By: Jefferson Rice MD DD/ [id number] Signed By: <Electronically signed by Jefferson Rice MD> 01/04/17 [address] [facility] Work Phone: Evaluation note* Diagnosis Onset Date Resolution Status Breast cancer, right chronic Encounter for monitoring anastrozole therapy chronic Osteoarthritis of knees, bilateral chronic Pulmonary embolism chronic Screening for osteoporosis c hronic Cutaneous leukocytoclastic angiitis resolved History of hypercalcemia res olved Hypercalcemia resolved Lung nodules resolved Neuropathy resolved Vasculitis resolved [facility] Work Phone: Evaluation note* Diagnosis Primary open-angle glaucoma, bilateral, mild stage- [facility] Primary open-angle glaucoma, bilateral, mild stage- Primary documented in this encounter [facility] Summary Purpose Family History No Family History Records FoundNo Family History Records FoundNo Family History Records FoundNo Family History Records FoundNo Family History Records FoundNo Family History Records Found Advance Directives No Advanced Directives Records Found Advance Directive Response Recorded Date/ Time Advance Directives No November 27, 2016 10:59am Chief Complaint and Reason for Visit Chief Complaint HX BREAST CANCER AMB ORDER Reason for Visit Breast cancer, right Encounter for monitoring anastrozole therapy Osteoarthritis of knees, bilateral Pulmonary embolism Screening for osteoporosis Cutaneous leukocytoclastic angiitis History of hypercalcemia Hypercalcemia Lung nodules Neuropathy Vasculitis Medications Administered Section Active Administered Medications - up to 3 most recent administrations Medication Order MAR Action Action Date Dose Rate Site fluorescein-benoxinate 0.3-0.4 % drop 1 Drop 1 Drop, BOTH EYES, DIRECTED, Starting on 01/17/23 at 0830, Until Tue01/17/23 at 2028, Administer for applanation tonometry. In the event of a Fluress shortage, administer [place]-Fluor 1 drop into both eyes as directed for applanation tonometry Given 01/17/2023 8:30 AM EDT 1 Drop Additional Source Comments INFORMATION SOURCE (unrecogn ized section and content) DATE CREATED AUTHOR 09/27/2017 [facility] DATE CREATED AUTHOR AUTHOR'S ORGANIZ ATION 01/18/2018 [facility] DATE CREATED AUTHOR AUTHOR'S ORGANIZ ATION 08/05/2018 [facility] DATE CREATED AUTHOR AUTHOR'S ORGANIZ ATION 09/10/2022 [facility] DATE CREATED AUTHOR AUTHOR'S ORGANIZ ATION 01/17/2023 [facility] DATE CREATED AUTHOR AUTHOR'S ORGANIZ ATION 01/21/2023 [facility] Care Teams (unrecognized sec tion and content) Team Status: Active Member Role Status Dates Kenyetta Reynolds MD Primary Care Provider Active Team Status: Active Member Role Status Dates Christian Steiner MD Other Provider Active Kacie Garay MD Attending Provider Active Kenyetta Reynolds MD Primary Care Provider Active 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 Start Date End Date Kenyetta Reynolds MD [facility] [place] [address] PCP - General Family Medicine 03/14/19 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 Specialty Start Date End Date Kenyetta Reynolds MD PCP - General Family Medicine 03/14/19 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 Start Date End Date Kenyetta Reynolds MD PCP - General Family Medicine 03/14/19 Goals (unrecognized section and content) Goals may be documented in a n alternate sectionGoals may be documented in an alternate section Source Comments (unrecognize d section and content) In the event this informatio n is protected by the Federal Confidentiality of Alcohol and Drug Abuse Patient Records regulations: The Federal rules restrict any use of the information to criminally investigate or prosecute any alcohol or drug abuse patient.[facility] the event this information is protected by the Federal Confidentiality of Alcohol and Drug Abuse Patient Records regulations: The Federal rules restrict any use of the information to criminally investigate or prosecute any alcohol or drug abuse patient.[facility] Center[facility] the event this information is protected by the Federal Confidentiality of Alcohol and Drug Abuse Patient Records regulations: The Federal rules restrict any use of the information to criminally investigate or prosecute any alcohol or drug abuse patient.[facility] Reason for Visit (unrecogniz ed section and content) Reason Comments Appointment Reason Comments Glaucoma Suspect Evaluation Epiretinal Membrane Reason Comments Glaucoma Suspect Follow Up [facility] FOR RECORDS PERTAINING TO PATIENTS WHO ARE OR HAVE BEEN ENROLLED IN A CHEMICAL DEPENDENCY/SUBSTANCEABUSE PROGRAM, SOME INFORMATION MAY BE OMITTED. This clinical summary was aggregated from multiple sources. Caution should be exercised in using it in the provision of clinical care. This summary normalizes information from multiple sources, and as a consequence, information in this document may materially change the coding, format and clinical context of patient data. In addition, data may be omitted in some cases. CLINICAL DECISIONS SHOULD BE BASED ON THE PRIMARY CLINICAL RECORDS. [facility] [employer], [facility]. provides no warranty or guarantee of the accuracy or completeness of information in this document.
== END 2023-04-15 09:24 | disposition home or self-care (01) ==
LOC: CT 09:23
PROVIDERS: PCP Family Medicine; Visit Provider Physician Assistant
DX: M87.875 Other osteonecrosis, left foot (principal); M20.42 Other hammer toe(s) (acquired), left foot
CPT/HCPCS: 73700

== ENCOUNTER 2023-04-21 09:28 | Outpatient (OUT) | payer MEDICARE, OTHER, SELFPAY ==
--- OUTSIDE RECORDS SUMMARY | 2023-04-21 09:37 | XMS_ITS | CCD ---
Author Name Unknown Address [address] [place] [address] Organization [facility] Care Team Providers Care Angle Furnaceman Name Role Phone Demarco Hess Unavailable Unavailable [...] Provider MD Kenyetta Reynolds Primary Care Provider [phone] Kenyetta Reynolds MD Primary Care Provider [id number] Kenyetta Reynolds MD Primary Care Provider [phone] IRAM, COVARRUBIAS H Attending Unavailable FAWWAD, COVARRUBIAS [...] Attending Unavailable MD Christian Steiner Other Provider MD Kacie Garay Attending Provider MD Kenyetta Reynolds Primary Care Provider [phone] Christian Steiner Consulting Unavailable Kacie Garay Admitting Unavailable Kacie Garay Attending Unavailable Kenyetta Reynolds Primary Care Unavailable Allergies Allergy Classification Reported Allergen(s) Allergy Type Date of Onset Reaction(s) Facility (4 sources) Sulfonamides (Antibiotic); 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: [SULFA (SULFONAMIDE ANTIBIOTICS)] Drug Allergy 02-22-2019 Unknown [facility] (1 source) Sulfonamides (Antibiotic) Drug allergy (disorder) 10-08-2014 [facility] (1 source) Sulfonamides (Antibiotic) Drug allergy (disorder) 01-21-2023 [facility] Repository Medications Current Medications Medication Drug Class(es) [...] Oral Daily July 19, 2018 10:42am 07-19-2018 [facility] ([id number]) fluticasone propionate 0.05 mg/actuat metered dose nasal [...] Twice daily March 25, 2017 10:57am 03-25-2017 [facility] ([id number]) magnesium oxide 250 mg oral tablet (5 sources) Start: take 250 mg by mouth once daily Magnesium Oxide Active 250 MG PO Daily January 05, 2017 12:00am Comment on above: Magnesium Oxide Magn esium Oxide Active 250 MG Oral Daily January 05, 2017 3:53pm 01-05-2017 [facility] ([id number]) montelukast 10 mg oral tablet (5 sources) [...] puff(s) by inhalation every twenty-four hours Tiotropium [place] (Spiriva Respimat) 2.5 mcg/actuation Mist Active 2 [...] 3 01-21-2022 Episodic Other aftercare (1 source) longterm (current) use of anticoagulants; 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..] 07-05-2022 Episodic Unclassified (1 source) HEALTH MAINTENANCE 20170 Z00.00 Onset: 01-28-2017 Results Test Name Value Interpretation Reference Range Facil ity MM screening mammo LT w/CADo n 01-20-2023 MM screening mammo LT w/CAD [facility] [place] [address] Mammography Report Signed Patient: Myla Brothers MR#: [id number] : 1950 Acct:[id number] Age/Sex: 72 / F ADM Date: 01/20/23 Loc: XT Room: Type: [facility] Attending Dr: Kacie Garay MD Copies to: [...] Luciana Busby M.D.01/20/2023 1:16 PM Dictation Location: [facility] Transcribed By: [facility] 01/20/23 1316 Dictated By: Luciana Busby MD 01/20/23 1310 Signed By: 01/20/23 1316 [facility] MRI WRIST RT WO CONon 2022 MRI [...] DINO GREGORY Date: 2022-06-20 13:14 Normal [facility] INSULINon 04-29-2022 Insulin 15.6 uIU/mL Normal 2.6-24.9 [facility] Comment on above: Performed By: #### I NSULIN #### [facility] [address] [place] [address] Dr. Marizol Macedo CBC AUTO DIFFon 04-28-2022 BASO # 0.0 103/ul Normal 0.0-0.1 [facility] Comment on above: Performed By: #### C BC #### [facility] [address] [place] [address] Dr. Marizol Macedo Basophils/100 WBC (Bld) 0.3 % Normal 0.2-2.0 [facility] Comment on above: Performed By: #### C BC #### [facility] [address] [place] [address] Dr. Marizol Macedo EO # 0.1 103/ul Normal 0.0-0.7 [facility] Comment on above: Performed By: #### C BC #### [facility] [address] [place] [address] Dr. Marizol Macedo Eosinophils/100 WBC (Bld) 1.0 % Normal 0.9-7.0 [facility] Comment on above: Performed By: #### C BC #### [facility] [address] [place] [address] Dr. Marizol Macedo Erythrocyte distribution width (RBC) [Ratio] 12.6 % Normal 11.0-15.0 [facility] Comment on above: Performed By: #### C BC #### [facility] [address] [place] [address] Dr. Marizol Macedo Hematocrit (Bld) [Volume fraction] 43.4 % Normal 36.0-48.0 [facility] Comment on above: Performed By: #### C BC #### [facility] [address] [place] [address] Dr. Marizlo Macedo Hemoglobin (Bld) [Mass/Vol] 14.1 g/dL Normal 12.0-16.0 [facility] Comment on above: Performed By: #### C BC #### [facility] [address] [place] [address] Dr. Marizol Macedo IG # 0.02 10e3/ul Normal 0.00-0.03 [facility] Comment on above: Performed By: #### C BC #### [facility] [address] [place] [address] Dr. Marizol Macedo IG % 0.3 % Normal 0.0-0.5 [facility] Comment on above: Performed By: #### C BC #### [facility] [address] [place] [address] Dr. Marizol Macedo LYMPH # 2.4 103/ul Normal 1.2-3.8 [facility] Comment on above: Performed By: #### C BC #### [facility] [address] [place] [address] Dr. Marizol Macedo Lymphocytes/100 WBC (Bld) 30.9 % Normal 20.5-60.0 [facility] Comment on above: Performed By: #### C BC #### [facility] [address] [place] [address] Dr. Marizol Macedo MANUAL DIFF REQ NO Normal [facility] Comment on above: Performed By: #### C BC #### [facility] [address] [place] [address] Dr. Marizol Macedo MCH (RBC) [Entitic mass] 30.7 pg Normal 26.7-34.0 [facility] Comment on above: Performed By: #### C BC #### [facility] [address] [place] [address] Dr. Marizol Macedo MCHC (RBC) [Mass/Vol] 32.5 g/dL Normal 29.9-35.2 [facility] Comment on above: Performed By: #### C BC #### [facility] [address] [place] [address] Dr. Marizol Macedo MCV (RBC) [Entitic vol] 94.3 fL Normal 81.0-99.0 [facility] Comment on above: Performed By: #### C BC #### [facility] [address] [place] [address] Dr. Marizol Macedo MONO # 0.4 103/ul Normal 0.3-0.8 [facility] Comment on above: Performed By: #### C BC #### [facility] [address] [place] [address] Dr. Marizol Macedo Monocytes/100 WBC (Bld) 5.4 % Normal 1.7-12.0 [facility] Comment on above: Performed By: #### C BC #### [facility] [address] [place] [address] Dr. Marizol Macedo NEUT # 4.9 103/ul Normal 1.4-6.5 [facility] Comment on above: Performed By: #### C BC #### [facility] [address] [place] [address] Dr. Marizol Macedo Neutrophils/100 WBC (Bld) 62.1 % Normal 43.0-75.0 [facility] Comment on above: Performed By: #### C BC #### [facility] [address] [place] [address] Dr. Marizol Macedo Platelet mean volume (Bld) [Entitic vol] 10.2 fL Normal 9.5-13.5 [facility] Comment on above: Performed By: #### C BC #### [facility] [address] [place] [address] Dr. Marizol Macedo PLT 279 103/ul Normal 150-450 [facility] Comment on above: Performed By: #### C BC #### [facility] [address] [place] [address] Dr. Marizol Macedo RBC 4.60 106/ul Normal 4.20-5.40 [facility] Comment on above: Performed By: #### C BC #### [facility] [address] [place] [address] Dr. Marizol Macedo WBC 7.8 103/ul Normal 4.0-11.0 [facility] Comment on above: Performed By: #### C BC #### [facility] [address] [place] [address] Dr. Marizol Macedo FREE THYROXINE INDEX T7on FTI 3.50 Normal 1.30-4.50 [facility] Comment on above: Performed By: #### L IPID, T7, CMP, TSH #### [facility] [address] [place] [address] Dr. Marizol Macedo T3U 35.0 % Normal 30.0-39.0 [facility] Comment on above: Performed By: #### L IPID, T7, CMP, TSH #### [facility] [address] [address] [address] Marizol Macedo T4 [Mass/Vol] 10.00 ug/dL Normal 4.80-13.90 [facility] Comment on above: Performed By: #### L IPID, T7, CMP, TSH #### [facility] [address] [address] [address] Marizol Macedo GLYCOHEMOGLOBIN A1Con 2022 ADA RECOMMENDATION SEE BELOW Normal [facility] Comment on above: Result Comment: ADA RECOMMENDED LIMIT 4.0 - 6.0 ADA THERAPEUTIC TARGET < 7.0 ACTION SUGGESTED > 7.0 Performed By: #### A 1C #### [facility] [address] [place] [address] Dr. Marizol Macedo Glucose [Mass/Vol] 114 mg/dL Normal [facility] Comment on above: Performed By: #### A 1C #### [facility] [address] [place] [address] Dr. Marizol Macedo HbA1c (Bld) [Mass fraction] 5.6 % Normal 4.5-6.2 [facility] Comment on above: Performed By: #### A 1C #### [facility] [address] [place] [address] Dr. Marizol Macedo IRONon 04-28-2022 Iron [Mass/Vol] 136.0 ug/dL Normal 50.0-170.0 [facility] Comment on above: Performed By: #### I CECELIA #### [facility] [address] [place] [address] Dr. Marizol Macedo LIPID PROFILEon 04-28-2022 CHOL-HDL RATIO NORM SEE BELOW Normal [facility] Comment on above: Result Comment: 3.3 - 4.4 LOW RISK 4.4 - 7.1 AVERAGE RISK 7.1 - 11.0 MODERATE RISK >11.0 HIGH RISK Performed By: #### L IPID, T7, CMP, TSH #### [facility] [address] [place] [address] Dr. Marizol Macedo Cholesterol [Mass/Vol] 134 mg/dL Normal <=200 [facility] Comment on above: Performed By: #### L IPID, T7, CMP, TSH #### [facility] [address] [address] [address] Marizol Macedo Cholesterol in HDL [Mass/Vol] 69 mg/dL Critically high 40-60 [facility] Comment on above: Performed By: #### L IPID, T7, CMP, TSH #### [facility] [address] [address] [address] Marizol Macedo Cholesterol in LDL [Mass/Vol] 46.6 mg/dL Normal [facility] Comment on above: Performed By: #### L IPID, T7, CMP, TSH #### [facility] [address] [address] [address] Marizol Macedo Cholesterol.total/Cho lesterol in HDL [Mass ratio] 1.9 {ratio} Normal [facility] Comment on above: Performed By: #### L IPID, T7, CMP, TSH #### [facility] [address] [address] [address] Marizol Macedo HDL NORMAL > or = 60 mg/dl - LOW CARDIOVASCULAR RISK <40 mg/dl - HIGH CARDIOVASCULAR RISK Normal [facility] Comment on above: Performed By: #### L IPID, T7, CMP, TSH #### [facility] [address] [address] [address] Marizol Macedo LDL CALC NORMAL SEE BELOW Normal [facility] Comment on above: Result Comment: <100 mg/dl OPTIMAL 100 - 129 mg/dl NEAR OR ABOVE OPTIMAL 130 - 159 mg/dl BORDERLINE HIGH 160 - 189 mg/dl HIGH >190 mg/dl VERY HIGH Performed By: #### L IPID, T7, CMP, TSH #### [facility] [address] [address] [address] Marizol Macedo Triglyceride [Mass/Vol] 92 mg/dL Normal <=150 [facility] Comment on above: Performed By: #### L IPID, T7, CMP, TSH #### [facility] [address] [address] [address] Marizol Macedo VLDL CALC 18.4 mg/dL Normal [facility] Comment on above: Performed By: #### L IPID, T7, CMP, TSH #### [facility] [address] [address] [address] Marizol Macedo PROF 14(COMP METB)on 023 Albumin [Mass/Vol] 3.9 g/dL Normal 3.4-5.0 [facility] Comment on above: Performed By: #### L IPID, T7, CMP, TSH #### [facility] [address] [place] [address] Dr. Marizol Macedo Albumin/Globulin [Mass ratio] 1.1 {ratio} Normal [facility] Comment on above: Performed By: #### L IPID, T7, CMP, TSH #### [facility] [address] [place] [address] Dr. Marizol Macedo ALP [Catalytic activity/Vol] 97 U/L Normal 46-116 [facility] Comment on above: Performed By: #### L IPID, T7, CMP, TSH #### [facility] [address] [place] [address] Dr. Marizol Macedo ALT [Catalytic activity/Vol] 57 U/L Normal 14-59 [facility] Comment on above: Performed By: #### L IPID, T7, CMP, TSH #### [facility] [address] [address] [address] Marizol Macedo Anion gap [Moles/Vol] 11.9 mmol/L Normal [facility] Comment on above: Performed By: #### L IPID, T7, CMP, TSH #### [facility] [address] [place] [address] Dr. Marizol Macedo AST [Catalytic activity/Vol] 35 U/L Normal 15-37 [facility] Comment on above: Performed By: #### L IPID, T7, CMP, TSH #### [facility] [address] [place] [address] Dr. Marizol Macedo Bilirubin [Mass/Vol] 0.6 mg/dL Normal 0.2-1.0 [facility] Comment on above: Performed By: #### L IPID, T7, CMP, TSH #### [facility] [address] [address] [address] Marizol Macedo Calcium [Mass/Vol] 9.8 mg/dL Normal 8.5-10.1 [facility] Comment on above: Performed By: #### L IPID, T7, CMP, TSH #### [facility] [address] [address] [address] Marizol Macedo Chloride [Moles/Vol] 103 mmol/L Normal 98-107 [facility] Comment on above: Performed By: #### L IPID, T7, CMP, TSH #### [facility] [address] [place] [address] Dr. Marizol Macedo CO2 [Moles/Vol] 28.0 mmol/L Normal 21.0-32.0 [facility] Comment on above: Performed By: #### L IPID, T7, CMP, TSH #### [facility] [address] [place] [address] Dr. Marizol Macedo Creatinine [Mass/Vol] 0.75 mg/dL Normal 0.55-1.02 [facility] Comment on above: Performed By: #### L IPID, T7, CMP, TSH #### [facility] [address] [place] [address] Dr. Marizol Macedo EGFR-AF SOMALI >60 Normal >=60 [facility] Comment on above: Performed By: #### L IPID, T7, CMP, TSH #### [facility] [address] [place] [address] Dr. Marizol Macedo EGFR-NON AF SOMALI >60 Normal >=60 [facility] Comment on above: Performed By: #### L IPID, T7, CMP, TSH #### [facility] [address] [place] [address] Dr. Marizol Macedo Globulin (S) [Mass/Vol] 3.5 g/dL Normal [facility] Comment on above: Performed By: #### L IPID, T7, CMP, TSH #### [facility] [address] [place] [address] Dr. Marizol Macedo Glucose [Mass/Vol] 91 mg/dL Normal 74-106 [facility] Comment on above: Performed By: #### L IPID, T7, CMP, TSH #### [facility] [address] [address] [address] Marizol Macedo Potassium [Moles/Vol] 3.9 mmol/L Normal 3.5-5.1 [facility] Comment on above: Performed By: #### L IPID, T7, CMP, TSH #### [facility] [address] [place] [address] Dr. Marizol Macedo Protein [Mass/Vol] 7.4 g/dL Normal 6.4-8.2 [facility] Comment on above: Performed By: #### L IPID, T7, CMP, TSH #### [facility] [address] [place] [address] Dr. Marizol Macedo Sodium [Moles/Vol] 139 mmol/L Normal 136-145 [facility] Comment on above: Performed By: #### L IPID, T7, CMP, TSH #### [facility] [address] [place] [address] Dr. Marizol Macedo Urea nitrogen [Mass/Vol] 13.0 mg/dL Normal 7.0-18.0 [facility] Comment on above: Performed By: #### L IPID, T7, CMP, TSH #### [facility] [address] [place] [address] Dr. Marizol Macedo Urea nitrogen/Creatinine [Mass ratio] 17.3 mg/mg Normal [facility] Comment on above: Performed By: #### L IPID, T7, CMP, TSH #### [facility] [address] [place] [address] Dr. Marizol Macedo TSHon 04-28-2022 TSH 1.306 uIU/mL Normal 0.358-3.740 [facility] Comment on above: Performed By: #### L IPID, T7, CMP, TSH #### [facility] [address] [place] [address] Dr. Marizol Watson 03-09-2022 CNPN Telephone (OPHTLN) ---- MYLA BROTHERS ([id number]) 1950 F Date Time Provider Department 03/09/22 [...] Oral Daily January 05, 2017 3:53pm 01-05-2017 [facility] ([id number]) - Flaxseed Oil 1,000 mg cap Linseed Oil Flaxseed Oil Active 1000 MG Oral Twice daily March 25, 2017 10:57am 03-25-2017 [facility] ([id number]) - Cholecalciferol, Vitamin D3, 25 mcg (1,000 unit) cap Cholecalciferol Cholecalciferol (Vitamin D3) Active 1000 UNIT Oral Daily July 19, 2018 10:42am 07-19-2018 [facility] ([id number]) - prednisoLONE acetate (PRED FORTE) 1 % [...] (anterior basement membrane dystrophy) [H1*02/22/2019 Breast cancer ([facility]) [C50.919] COPD (chronic obstructive pulmonary disease) (H* Pulmonary embolism (HCC) [I26.99] PCO (posterior capsular opacification), bilater*09/18/2019 Pseudophakia of both eyes [Z96.1] 09/18/2019 Encounter Status:Closed by NIDA STOCKTON on 03/11/22 Normal [facility] CBC W/DIFFon 09-28-2017 ABS BASOPHILS 0.0 10*3/uL Normal 0.0-0.2 The [facility] Comment on above: Performed By: #### 4 180, 83341 ####[facility].[address] ABS IMM GRANS 0.0 10*3/uL Normal 0.0-0.2 The [facility] Comment on above: Performed By: #### 4 180, 88100 ####[facility].[address] ABS NEUTROPHILS 2.8 10*3/uL Normal 1.6-7.6 [facility] Comment on above: Performed By: #### 4 180, 88895 ####[facility] [facility].[address] Basophils Auto #/vol (Bld) 0.5 % Normal 0.0-1.0 [facility] Comment on above: Performed By: #### 4 180, 99902 ####[facility].[address] Eosinophils Auto #/vol (Bld) 0.1 10*3/uL Normal 0.0-0.5 [facility] Comment on above: Performed By: #### 4 180, 34571 ####[facility].[address] Eosinophils/100 WBC Auto (Bld) 2.3 % Normal 0.0-6.0 [facility] Comment on above: Performed By: #### 4 180, 13665 ####[facility].[address] Erythrocyte distribution width Auto Ratio (RBC) 12.9 % Normal 11.5-15.0 [facility] Comment on above: Performed By: #### 4 1801, 91390 ####[facility] [facility].[address] Hematocrit Auto Volume Fraction (Bld) 42.9 % Normal 36.0-45.0 The [facility] Comment on above: Performed By: #### 4 1801, 17282 ####[address] [place] [address] [facility].[address] Hemoglobin mass conc (Bld) 14.1 g/dL Normal 12.0-15.0 [facility] Comment on above: Performed By: #### 4 1801, 70342 ####[address] [facility].[address] IMMATURE GRANS 0.3 % Normal 0.0-1.0 The [facility] Comment on above: Performed By: #### 4 1801, 82519 ####[address] [place] [facility].[address] Lymphocytes Auto #/vol (Bld) 2.4 10*3/uL Normal 1.2-4.0 [facility] Comment on above: Performed By: #### 4 180, 21703 ####[facility] [facility].[address] Lymphocytes/100 WBC Auto (Bld) 39.5 % Normal 20.0-45.0 [facility] Comment on above: Performed By: #### 4 180, 53203 ####[facility] MCH Auto Entitic mass (RBC) 30.3 pg Normal 27.0-33.0 [facility] Comment on above: Performed By: #### 4 180, 35920 ####[facility] MCHC Auto mass conc (RBC) 32.9 g/dL Normal 32.0-35.0 [facility] Comment on above: Performed By: #### 4 1801, 02470 ####[facility] MCV Auto Entitic volume (RBC) 92.3 fL Normal 82.0-98.0 [facility] Comment on above: Performed By: #### 4 1801, 31590 ####[facility] Monocytes Auto #/vol (Bld) 0.7 10*3/uL Normal 0.1-1.0 [facility] Comment on above: Performed By: #### 4 1801, 71362 ####[facility] [facility].[address] MONOS 11.2 % Normal 5.0-12.0 [facility] Comment on above: Performed By: #### 4 1801, 96117 ####[facility] [facility].[address] Neutrophils/100 WBC Auto (Bld) 46.2 % Normal 40.0-72.0 [facility] Comment on above: Performed By: #### 4 180, 86879 ####[facility] Nucleated RBC/100 WBC Ratio (Bld) 0 % Normal 0-0 [facility] Comment on above: Performed By: #### 4 180, 86058 ####[facility] [facility] [place] [address], [facility] [address] 263 10*3/uL Normal 150-[address] [facility] Comment on above: Performed By: #### 4 180, 61172 ####[facility] [facility] [place] [address], [facility] RBC Auto #/vol (Bld) 4.65 10*6/uL Normal 3.80-5.00 Th e [facility] Comment on above: Performed By: #### 4 1801, 61516 ####[facility] [facility] [place] [address], [facility] WBC Auto #/vol (Bld) 6.07 10*3/uL Normal 4.00-10.60 Th e [facility] Comment on above: Performed By: #### 4 1801, 62299 ####[facility] [facility].[address] COMP METABOLIC PANELon 09-28 Albumin mass conc 4.1 g/dL Normal 3.5-5.7 [facility] Comment on above: Performed By: #### 4 1801, 05484 ####[facility] [facility] [place] [address], [facility] ALKALINE PHOSPH 73 IU/L Normal 34-104 The [facility] Comment on above: Performed By: #### 4 1801, 25988 ####[facility] [facility].[address] ALT enzyme act/vol 54 U/L High 7-52 The [facility] Comment on above: Performed By: #### 4 1801, 52877 ####[facility] [place] [address], [facility] AST enzyme act/vol 40 U/L High 13-39 [facility] Comment on above: Performed By: #### 4 180, 96165 ####[facility] [place] [address], [place] Bilirubin mass conc 0.4 mg/dL Normal 0.3-1.0 [facility] Comment on above: Performed By: #### 4 180, 50320 ####[facility] [place] [address], [place] Calcium mass conc 9.7 mg/dL Normal 8.6-10.3 [facility] Comment on above: Performed By: #### 4 180, 47646 ####[facility] [place] [address], [place] Chloride molar conc 103 mmol/L Normal 98-107 [facility] Comment on above: Performed By: #### 4 180, 05571 ####[facility] [place] [address], [place] CO2 molar conc 28 mmol/L Normal 21-31 The [facility] Comment on above: Performed By: #### 4 180, 54824 ####[facility] [place] [address], [place] Creatinine mass conc 0.81 mg/dL Normal 0.60-1.20 [facility] Comment on above: Performed By: #### 4 180, 56437 ####[facility] [place] [address], [place] GFR/1.73 sq M predicted among blacks MDRD vol rate/area (S/P/Bld) mL/min/{1.73_m2} Normal >60 [facility] Comment on above: Performed By: #### 4 180, 70629 ####[facility] [place] [address], [place] GFR/1.73 sq M predicted among non-blacks MDRD vol rate/area (S/P/Bld) mL/min/{1.73_m2} Normal >60 [facility] Comment on above: Performed By: #### 4 180, 39984 ####[facility] [place] [address], [place] Glucose mass conc 95 mg/dL Normal 70-100 [facility] Comment on above: Performed By: #### 4 180, 15664 ####[facility] [place] [address], [place] Potassium molar conc 4.4 mmol/L Normal 3.5-5.1 [facility] Comment on above: Performed By: #### 4 180, 54434 ####[facility] [place] [address], [facility] Protein mass conc 7.2 g/dL Normal 6.0-8.3 [facility] Comment on above: Performed By: #### 4 180, 50967 ####[facility] [place] [address], [facility] Sodium molar conc 139 mmol/L Normal 136-145 [facility] Comment on above: Performed By: #### 4 180, 76183 ####[facility] [place] [address], [place] Urea nitrogen mass conc 19 mg/dL Normal 7-25 [facility] Comment on above: Performed By: #### 4 180, 66067 ####[facility] [place] [address], [place] Glucose Glucometer (BldC) [M ass/Vol]on 08-17-2017 Glucose [Mass/Vol] 99 mg/dL [facility] Comment on above: Random Glucose Refer ence Range is dependent on time and content of last meal. Glucose of more than 200 mg/dL in a nonstressed, ambulatory subject supports the diagnosis of Diabetes Mellitus. CBC W/DIFFon 03-31-2017 Basophils Auto #/vol (Bld) 0.3 % Normal 0.0-2.0 [facility] Comment on above: Performed By: #### 4 180, 83866 ####[facility] [place] [address], [facility] Eosinophils/100 WBC Auto (Bld) 2.1 % Normal 0.0-5.0 [facility] Comment on above: Performed By: #### 4 180, 55336 ####[facility] Erythrocyte distribution width Auto Ratio (RBC) 13.0 % Normal 11.5-16.9 [facility] Comment on above: Performed By: #### 4 180, 73322 ####[facility] [facility] Hematocrit Auto Volume Fraction (Bld) 42.6 % Normal 36.0-48.0 The [facility] Comment on above: Performed By: #### 4 180, 18963 ####[facility] [facility].[address] Hemoglobin mass conc (Bld) 14.3 g/dL Normal 12.0-15.0 [facility] Comment on above: Performed By: #### 4 180, 39981 ####[facility] Lymphocytes/100 WBC Auto (Bld) 29.7 % Normal 20.0-40.0 [facility] Comment on above: Performed By: #### 4 180, 40944 ####[facility] MCH Auto Entitic mass (RBC) 30.7 pg Normal 24.0-32.0 [facility] Comment on above: Performed By: #### 4 180, 96974 ####[facility] MCHC Auto mass conc (RBC) 33.7 g/dL Normal 32.0-36.0 [facility] Comment on above: Performed By: #### 4 180, 54106 ####[facility] MCV Auto Entitic volume (RBC) 91.2 fL Normal 80.0-100.0 [facility] Comment on above: Performed By: #### 4 180, 67507 ####[facility] METHOD Normal RBC Morphology Normal [facility] Comment on above: Performed By: #### 4 180, 64811 ####[facility] MONOS 6.4 % Normal 2-8 [facility] Comment on above: Performed By: #### 4 180, 69200 ####[facility] Neutrophils/100 WBC Auto (Bld) 61.5 % Normal 50-70 [facility] Comment on above: Performed By: #### 4 180, 90886 ####[facility] [place] [address], [facility] PLAT CNT 261 Thou/mm3 Normal 100-400 The [facility] Comment on above: Performed By: #### 4 180, 13604 ####[facility] RBC Auto #/vol (Bld) 4.67 mill/mm3 Normal 3.50-5.50 T [facility] Comment on above: Performed By: #### 4 180, 44774 ####[facility] WBC Auto #/vol (Bld) 6.6 Thou/mm3 Normal 4.0-10.0 Th e [facility] Comment on above: Performed By: #### 4 180, 38750 ####[facility] [place] [address], [facility] COMP METABOLIC PANELon 03-31 Albumin mass conc 4.0 g/dL Normal 3.5-5.7 [facility] Comment on above: Performed By: #### 4 180, 34175 ####[facility] [place] [address], [facility] ALKALINE PHOSPH 73 IU/L Normal 34-104 [facility] Comment on above: Performed By: #### 4 180, 52500 ####[facility] [place] [address], [facility] ALT enzyme act/vol 49 U/L Normal 7-52 The [facility] Comment on above: Performed By: #### 4 1801, 34248 ####[facility] [place] [address], [facility] AST enzyme act/vol 34 U/L Normal 13-39 The [facility] Comment on above: Performed By: #### 4 180, 18327 ####[facility] [place] [address], [facility] Bilirubin mass conc 0.3 mg/dL Normal 0.3-1.0 [facility] Comment on above: Performed By: #### 4 180, 45111 ####[facility] [place] [address], [facility] Calcium mass conc 10.0 mg/dL Normal 8.6-10.3 [facility] Comment on above: Performed By: #### 4 180, 68459 ####[facility] [place] [address], [place] Chloride molar conc 103 mmol/L Normal 98-107 [facility] Comment on above: Performed By: #### 4 180, 09750 ####[facility] [place] [address], [place] CO2 molar conc 29 mmol/L Normal 21-31 The [facility] Comment on above: Performed By: #### 4 180, 56400 ####[facility] [place] [address], [place] Creatinine mass conc 0.86 mg/dL Normal 0.60-1.20 [facility] Comment on above: Performed By: #### 4 180, 27291 ####[facility] [place] [address], [place] GFR/1.73 sq M predicted among blacks MDRD vol rate/area (S/P/Bld) mL/min/{1.73_m2} Normal >60 [facility] Comment on above: Performed By: #### 4 180, 77369 ####[facility] [place] [address], [place] GFR/1.73 sq M predicted among non-blacks MDRD vol rate/area (S/P/Bld) mL/min/{1.73_m2} Normal >60 [facility] Comment on above: Performed By: #### 4 180, 49049 ####[facility] [place] [address], [place] Glucose mass conc 86 mg/dL Normal 70-100 [facility] Comment on above: Performed By: #### 4 180, 38620 ####[facility] [place] [address], [place] Potassium molar conc 4.1 mmol/L Normal 3.5-5.1 [facility] Comment on above: Performed By: #### 4 1802, 18001 ####[facility] [facility].[address] Protein mass conc 7.0 g/dL Normal 6.0-8.3 [facility] Comment on above: Performed By: #### 4 1802, 90021 ####[facility] [facility].[address] Sodium molar conc 138 mmol/L Normal 136-145 [facility] Comment on above: Performed By: #### 4 1802, 31295 ####[facility] Urea nitrogen mass conc 14 mg/dL Normal 7-25 [facility] Comment on above: Performed By: #### 4 1802, 26124 ####[facility] ANAon 02-10-2017 HELENE SCREEN <1:40 Normal <1:40,1:40 [facility] Comment on above: Performed By: #### 1 0008 ####[facility] ANCA IGG WITH REFLEX [id number] on 02-10-2017 ANCA <1:20 Normal <1:20 [facility] Comment on above: Result Comment: The ANCA IFA is <1:20; therefore, no further testing willbe performed.INTERPRETIVE INFORMATION: Anti-Neutrophil Cyto Ab, IgGNeutrophil Cytoplasmic Antibodies (C-ANCA = granularcytoplasmic staining, P-ANCA = perinuclear staining) arefound in the serum of over 90 percent of patients withcertain necrotizing systemic vasculitides, and usually inless than 5 percent of patients with collagen vasculardisease or arthritis.Performed by [employer],[address] [place] [id number] [employer]ge[employer], Onel Connelly MD - Lab. Director ANTI DNAon 02-10-2017 ANTI DNA <1:10 Normal <1:10 [facility] Comment on above: Performed By: #### 1 0008 ####[facility] [facility] [place] [address], [facility] ANTI-BETA 2 GLYCOPROTEIN 1on 02-10-2017 ANTI B2GP1 IGA 9.3 a units Normal 0.0-19.9 [facility] Comment on above: Performed By: #### 1 0008 ####[facility] [place] [address], [facility] ANTI B2GP1 IGG 1.1 g units Normal 0.0-19.9 The [facility] Comment on above: Performed By: #### 1 0008 ####[facility] [facility] [place] [address], [facility] ANTI B2GP1 IGM 2.5 m units Normal 0.0-19.9 The [facility] Comment on above: Performed By: #### 1 0008 ####[facility] [facility] [place] [address], [facility] ANTI-ENAon 02-10-2017 ANTI SM Negative Normal NEG,NEGATIVE,Ne g [facility] Comment on above: Performed By: #### 1 0008 ####[facility] [facility] [place] [address], [facility] ANTI SM/ANTIRNP Negative Normal NEG,NEGATIVE ,Ne g [facility] Comment on above: Performed By: #### 1 0008 ####[facility] [facility] [place] [address], [place] ANTICARDIOLIPIN ANTIBODYon 1 04-12-2016 CARDIOLIPIN IGA 4.9 APL Normal 0.0-21.9 The [facility] Comment on above: Performed By: #### 1 0008 ####[facility] [facility] [place] [address], [facility] CARDIOLIPIN IGG 14.5 GPL Normal 0.0-22.9 The [facility] Comment on above: Performed By: #### 1 0008 ####[facility] [facility].[address] CARDIOLIPIN IGM 9.5 MPL Normal 0.0-10.9 [facility] Comment on above: Performed By: #### 1 0008 ####[facility] CBC W/DIFFon 02-10-2017 Basophils Auto #/vol (Bld) 0.4 % Normal 0.0-2.0 [facility] Comment on above: Performed By: #### 5 3 ####[facility] Eosinophils/100 WBC Auto (Bld) 2.5 % Normal 0.0-5.0 [facility] Comment on above: Performed By: #### 5 0103 ####[facility] Erythrocyte distribution width Auto Ratio (RBC) 14.5 % Normal 11.5-16.9 [facility] Comment on above: Performed By: #### 5 3 ####[facility] Hematocrit Auto Volume Fraction (Bld) 41.0 % Normal 36.0-48.0 The [facility] Comment on above: Performed By: #### 5 0103 ####[facility] Hemoglobin mass conc (Bld) 13.6 g/dL Normal 12.0-15.0 [facility] Comment on above: Performed By: #### 5 3 ####[facility] Lymphocytes/100 WBC Auto (Bld) 26.7 % Normal 20.0-40.0 [facility] Comment on above: Performed By: #### 5 0103 ####[facility] MCH Auto Entitic mass (RBC) 30.5 pg Normal 24.0-32.0 [facility] Comment on above: Performed By: #### 5 0103 ####[facility] MCHC Auto mass conc (RBC) 33.2 g/dL Normal 32.0-36.0 [facility] Comment on above: Performed By: #### 5 0103 ####[facility] MCV Auto Entitic volume (RBC) 91.8 fL Normal 80.0-100.0 [facility] Comment on above: Performed By: #### 5 0103 ####[facility] METHOD Normal RBC Morphology Normal [facility] Comment on above: Performed By: #### 5 0103 ####[facility] MONOS 6.6 % Normal 2-8 [facility] Comment on above: Performed By: #### 5 0103 ####[facility] Neutrophils/100 WBC Auto (Bld) 63.8 % Normal 50-70 [facility] Comment on above: Performed By: #### 5 0103 ####[facility] [place] [address], [facility] PLAT CNT 310 Thou/mm3 Normal 100-400 The [facility] Comment on above: Performed By: #### 5 0103 ####[facility] [facility] [place] [address], [facility] RBC Auto #/vol (Bld) 4.47 mill/mm3 Normal 3.50-5.50 T he [facility] Comment on above: Performed By: #### 102 ####[facility] [facility] [place] [address], [facility] WBC Auto #/vol (Bld) 7.6 Thou/mm3 Normal 4.0-10.0 Th e [facility] Comment on above: Performed By: #### 102 ####[facility] [facility].[address] COMP METABOLIC PANELon 02-10 Albumin mass conc 4.3 g/dL Normal 3.5-5.7 [facility] Comment on above: Performed By: #### 0 0121 ####[facility] [facility].[address] ALKALINE PHOSPH 89 IU/L Normal 34-104 [facility] Comment on above: Performed By: #### 0 0121 ####[facility] [facility].[address] ALT enzyme act/vol 35 U/L Normal 7-52 [facility] Comment on above: Performed By: #### 0 0121 ####[facility] [facility].[address] AST enzyme act/vol 27 U/L Normal 13-39 [facility] Comment on above: Performed By: #### 0 0121 ####[facility] [facility].[address] Bilirubin mass conc 0.4 mg/dL Normal 0.3-1.0 [facility] Comment on above: Performed By: #### 0 0121 ####[facility] [place] [address], [facility] Calcium mass conc 9.9 mg/dL Normal 8.6-10.3 [facility] Comment on above: Performed By: #### 0 0121 ####[facility] [place] [address], [place] Chloride molar conc 102 mmol/L Normal 98-107 [facility] Comment on above: Performed By: #### 0 0121 ####[facility] [place] [address], [place] CO2 molar conc 25 mmol/L Normal 21-31 The [facility] Comment on above: Performed By: #### 0 0121 ####[facility] [facility] [place] [address], [facility] Creatinine mass conc 0.87 mg/dL Normal 0.60-1.20 [facility] Comment on above: Performed By: #### 0 0121 ####[facility] [facility] [place] [address], [place] GFR/1.73 sq M predicted among blacks MDRD vol rate/area (S/P/Bld) mL/min/{1.73_m2} Normal >60 [facility] Comment on above: Performed By: #### 0 0121 ####[facility] [facility] [place] [address], [place] GFR/1.73 sq M predicted among non-blacks MDRD vol rate/area (S/P/Bld) mL/min/{1.73_m2} Normal >60 [facility] Comment on above: Performed By: #### 0 0121 ####[facility] [place] [address], [place] Glucose mass conc 99 mg/dL Normal 70-100 [facility] Comment on above: Performed By: #### 0 0121 ####[facility] [place] [address], [facility] Potassium molar conc 4.1 mmol/L Normal 3.5-5.1 [facility] Comment on above: Performed By: #### 0 0121 ####[facility] [id number], [facility] Protein mass conc 7.5 g/dL Normal 6.0-8.3 [facility] Comment on above: Performed By: #### 0 0121 ####[facility] [place] [address], [facility] Sodium molar conc 136 mmol/L Normal 136-145 [facility] Comment on above: Performed By: #### 0 0121 ####[facility] [facility] [place] [address], [facility] Urea nitrogen mass conc 20 mg/dL Normal 7-25 [facility] Comment on above: Performed By: #### 0 0121 ####[facility] [facility] [place] [address], [facility] COMPLEMENT 3on 02-10-2017 COMPLEMENT 3 154 mg/dL High 79-152 The [facility] Comment on above: Performed By: #### 1 0204, 00864, 72150 ####[facility] [facility] [place] [address], [facility] COMPLEMENT 4on 02-10-2017 COMPLEMENT 4 34 mg/dL Normal 16-38 The [facility] Comment on above: Performed By: #### 1 0204, 15220, 09501 ####[facility] [facility] [place] [address], [facility] CREATININE URINE RANDOMon CREATININE 138.0 mg/dL Normal The [facility] Comment on above: Result Comment: Ther e are no established reference values for random urine specimens Performed By: #### 4 1052, 38511 ####[facility] [place] [address], [facility] CRYOGLOBULIN ILon 02-10-2017 CRYOGLOBULIN 0 mg/dL Normal 0-10 The [facility] [place] Normal [facility] CYCLIC CITRULLINATED PEPTIDE AB [id number] 02-10-2017 CYCLIC CIT PEP 6 Units Normal 0-19 The [facility] Comment on above: Result Comment: INTE RPRETIVE [...] results should bemonitored and testing repeated.Performed by [employer],[address] [place], [place] [id number] [employer]tl[employer], Onel Connelly MD - Lab. Director HEPATITIS B CORE ANTIBODYon 02-10-2017 HEP B CORE AB NONREACTIVE Normal NONREACTIVE [facility] Comment on above: Performed By: #### 3 6697, 88751, 26626, 67154 ####[facility] [facility] [place] [address], [facility] HEPATITIS B SURFACE ANTIBODY QUANTon 02-10-2017 HEP B SURF AB 0.00 mIU/ml Normal The [facility] Comment on above: Result Comment: INTE RPRETATION:NONREACTIVE<8.00 mIU/mLINDETERMINATE8.00 - 12.00 mIU/mLREACTIVE>12 mIU/mL Performed By: #### 1 0008 ####[facility] [place] [address], [facility] HEPATITIS B SURFACE ANTIGEN QUALon 02-10-2017 HEP B SURF AG QUAL NONREACTIVE Normal NONREACTIVE [facility] Comment on above: Performed By: #### 1 0008 ####[facility] [facility] [place] [address], [facility] HEPATITIS C ANTIBODYon 02-10 ANTI-HCV NONREACTIVE Normal NONREACTIVE The [facility] Comment on above: Performed By: #### 3 1397, 40517, 40584, 67066 ####[facility] [facility] [place] [address], [facility] RHEUMATOID FACTOR SERUMon RA <20 Normal 0-20 [facility] Comment on above: Performed By: #### 1 0204, 91297, 14181 ####[facility] [facility] [place] [address], [facility] SJOGRENS ANTIBODIESon 2016 SS-A Negative Normal NEG,NEGATIVE,Ne g [facility] Comment on above: Performed By: #### 1 0008 ####[place] [address] [facility] [place] [address], [facility] SS-B Negative Normal NEG,NEGATIVE,Ne g [facility] Comment on above: Performed By: #### 1 0008 ####[facility] [facility] [place] [address], [facility] T PROT UR Adam 02-10-2017 Protein mass conc 29.0 mg/dL Normal [facility] Comment on above: Result Comment: Ther e are no established reference values for random urine specimens Performed By: #### 4 1802, 26837 ####[facility] [facility] [place] [address], [facility] TB QUANTIFERONon 02-10-2017 MITOGEN MINUS NIL >=10 Normal [facility] Comment on above: Performed By: #### 4 1802, 10561 ####[facility] NIL 0.03 IU/mL Normal [facility] Comment on above: Performed By: #### 4 1802, 65226 ####[facility] TB AG MINUS NIL 0.01 IU/mL Normal [facility] Comment on above: Performed By: #### 4 1802, 18256 ####[place] [address] TB ANTIGEN 0.04 IU/mL Normal [facility] Comment on above: Performed By: #### 4 1802, 19726 ####[place] [address] TB QUANTIFERON Negative Normal NEGATIVE The [facility] Comment on above: Result Comment: Boy tiferon [...] and LTBI(http://www.cdc.gov/nchstp/tb/). Performed By: #### 4 1802, 12899 ####[facility] URINALYSISon 02-10-2017 APPEARANCE CLOUDY Abnormal CLEAR [facility] Comment on above: Performed By: #### 1 0008 ####[facility] [place] [address], [facility] BACTERIA MOD Abnormal NONE SEEN [facility] Comment on above: Performed By: #### 1 0008 ####[facility] [place] [address], [facility] BILIRUBIN Negative Normal NEGATIVE [facility] Comment on above: Performed By: #### 1 0008 ####[facility] [place] [address], [facility] BLOOD Negative Normal NEGATIVE [facility] Comment on above: Performed By: #### 1 0008 ####[facility] [facility] [place] [address], [facility] COLOR YELLOW Normal YELLOW [facility] [facility] Comment on above: Performed By: #### 1 0008 ####[facility] [place] [address], [facility] EPIS MANY Abnormal FEW [facility] Comment on above: Performed By: #### 1 0008 ####[facility] [place] [address], [facility] GLUCOSE Negative Normal NEGATIVE [facility] Comment on above: Performed By: #### 1 0008 ####[facility] INR Coag RelTime (Bld) 0-2 Abnormal 0-0 [facility] Comment on above: Performed By: #### 1 0008 ####[facility] [place] [address], [facility] KETONE Negative Normal NEGATIVE [facility] Comment on above: Performed By: #### 1 0008 ####[facility], [place] [address] Abnormal NEGATIVE [facility] Comment on above: Performed By: #### 1 0008 ####[facility] [facility].[address] MUCUS THREADS OCC Abnormal NONE SEEN [facility] Comment on above: Performed By: #### 1 0008 ####[facility] [facility] [place] [address], [facility] NITRITE Negative Normal NEGATIVE [facility] Comment on above: Performed By: #### 1 0008 ####[facility] [facility].[address] PH 5.0 Normal 5.0-8.0 [facility] Comment on above: Performed By: #### 1 0008 ####[facility] Protein mass conc Negative Normal NEGATIVE [facility] Comment on above: Performed By: #### 1 0008 ####[facility] [facility].[address] SPEC GRAV 1.020 Normal 1.015-1.[address] [facility] Comment on above: Performed By: #### 1 0008 ####[facility] [facility].[address] WBC UA >100 Abnormal 0-0 [facility] Comment on above: Performed By: #### 1 0008 ####[facility] CYTOLOGY SPECIMENon 02-02-20 CYTOLOGY SPEC Normal [facility] Comment on above: Order Comment: Comme nt: A. PERIESOPHAGEAL LESION FNA - CYTOLYT, 10 SLIDES Result Comment: Note : Specimens received on or after December:* Pathology and Cytology reports are located in [facility] in the folder labeled Medical Record Forms.* Reports are also in the Physician Portal.* Reports will be faxed to phycician's office.* For assistance locating reports call: * Willard Guadarrama [phone] * LAB [phone] Performed By: #### L UHCYTO ####[place] [address] [place] [address] Albumin [Mass/volume] in Ser um or Plasmaon 01-03-2017 Albumin [Mass/Vol] 3.3 g/dL 3.2-5.5 [facility] Basophils Auto (Bld) [#/Vol] on 01-03-2017 Basophils (Bld) [#/Vol] 0.0 10*3/uL 0.0-0.2 [facility] Basophils/100 WBC Auto (Bld) on 01-03-2017 Basophils/100 WBC (Bld) 0.6 % . [facility] Creatinine and Glomerular fi ltration rate.predicted panel (S/P/Bld)on 01-03-2017 Creatinine [Mass/Vol] 1.00 mg/dL 0.44-1.03 [facility] Eosinophils Auto (Bld) [#/Vo l]on 01-03-2017 Eosinophils (Bld) [#/Vol] 0.1 10*3/uL 0.0-0.45 [facility] Eosinophils/100 WBC Auto (Bl d)on 01-03-2017 Eosinophils/100 WBC (Bld) 1.5 % . [facility] Erythrocyte distribution wid th Auto (RBC) [Ratio]on 01-03-2017 Erythrocyte distribution width (RBC) [Ratio] 14.5 % 11.9-15.3 [facility] Estimated glomerular filtrat ion rate (GFR) non- Americanon 01-03-2017 GFR/1.73 sq M.predicted among non-blacks MDRD (S/P/Bld) [Vol rate/Area] 56 mL/min/{1.73_m2} [facility] Globulin Calc (S) [Mass/Vol] on 01-03-2017 Globulin (S) [Mass/Vol] 3.6 g/dL [facility] Hematocrit Auto (Bld) [Volum e fraction]on 01-03-2017 Hematocrit (Bld) [Volume fraction] 36.3 % 34.0-46.4 [facility] Hemoglobin [Mass/volume] in Bloodon 01-03-2017 Hemoglobin (Bld) [Mass/Vol] 12.1 g/dL 11.8-15.4 [facility] Laboratory - Chemistry and C hemistry - challengeon 01-03-2017 GFR/1.73 sq M.predicted among blacks MDRD (S/P/Bld) [Vol rate/Area] mL/min/{1.73_m2} [facility] Comment on above: GFR estimated refere nce range: According to KDOQI guidelines, <60 ml/min/1.73m2 is sufficient to diagnose a patient with chronic kidney disease. Lymphocytes Auto (Bld) [#/Vo l]on 01-03-2017 Lymphocytes (Bld) [#/Vol] 2.1 10*3/uL 1.00-4.8 [facility] Lymphocytes/100 WBC Auto (Bl d)on 01-03-2017 Lymphocytes/100 WBC (Bld) 27.4 % . [facility] MCH Auto (RBC) [Entitic mass ]on 01-03-2017 MCH (RBC) [Entitic mass] 30.8 pg 24.7-34.3 [facility] MCHC Auto (RBC) [Mass/Vol]on 01-03-2017 MCHC (RBC) [Mass/Vol] 33.4 g/dL 32.0-35.0 [facility] MCV Auto (RBC) [Entitic vol] on 01-03-2017 MCV (RBC) [Entitic vol] 92.4 fL 80-100 [facility] Monocytes Auto (Bld) [#/Vol] on 01-03-2017 Monocytes (Bld) [#/Vol] 1.0 10*3/uL 0.0-0.8 [facility] Monocytes/100 WBC Auto (Bld) on 01-03-2017 Monocytes/100 WBC (Bld) 12.7 % . [facility] Neutrophils Auto (Bld) [#/Vo l]on 01-03-2017 Neutrophils (Bld) [#/Vol] 4.4 10*3/uL 1.8-7.7 [facility] Neutrophils/100 WBC Auto (Bl d)on 01-03-2017 Neutrophils/100 WBC (Bld) 57.8 % . [facility] No Panel Informationon 01-03 Pharmacy Creatinine Clearance (Chem N/A [facility] Platelet mean volume Auto (B ld) [Entitic vol]on 01-03-2017 Platelet mean volume (Bld) [Entitic vol] 8.2 fL 6.3-10.7 [facility] Platelets Auto (Bld) [#/Vol] on 01-03-2017 Platelets (Bld) [#/Vol] 429 10*3/uL 150-450 [facility] Protein [Mass/volume] in Ser um or Plasmaon 01-03-2017 Protein [Mass/Vol] 6.9 g/dL 6.1-7.9 [facility] RBC Auto (Bld) [#/Vol]on RBC (Bld) [#/Vol] 3.93 10*6/uL 3.60-5.00 [facility] Serum or plasma alanine briggs otransferase measurement without P-5'-P (enzymatic activion 01-03-2017 ALT No additional P-5'-P [Catalytic activity/Vol] 37 U/L 10-60 [facility] Serum or plasma albumin/glob ulin mass ratioon 01-03-2017 Albumin/Globulin [Mass ratio] 0.9 {ratio} [facility] Serum or plasma alkaline bita sphatase measurement (enzymatic activity/volume)on 01-03-2017 ALP [Catalytic activity/Vol] 89 U/L 32-92 [facility] Serum or plasma aspartate am inotransferase measurement (enzymatic activity/volume)on 01-03-2017 AST [Catalytic activity/Vol] 30 U/L 10-42 [facility] Serum or plasma calcium katheryn urement (mass/volume)on 01-03-2017 Calcium [Mass/Vol] 9.4 mg/dL 8.2-10.2 [facility] Serum or plasma chloride claudia surement (moles/volume)on 01-03-2017 Chloride [Moles/Vol] 98 mmol/L 95-114 [facility] Serum or plasma glucose katheryn urement (mass/volume)on 01-03-2017 Glucose [Mass/Vol] 107 mg/dL 70-100 [facility] Comment on above: ADA recommended refe rence rangeRandom Glucose Reference Range is dependent on time and content of last meal. Glucose of more than 200 mg/dL in a nonstressed, ambulatory subject supports the diagnosis of Diabetes Mellitus. Serum or plasma potassium me asurement (moles/volume)on 01-03-2017 Potassium [Moles/Vol] 4.1 mmol/L 3.5-5.1 [facility] Serum or plasma sodium measu rement (moles/volume)on 01-03-2017 Sodium [Moles/Vol] 139 mmol/L 136-146 [facility] Serum or plasma total biliru bin measurement (mass/volume)on 01-03-2017 Bilirubin [Mass/Vol] 0.3 mg/dL 0.3-1.2 [facility] Serum or plasma total carbon dioxide measurement (moles/volume)on 01-03-2017 CO2 [Moles/Vol] 29.5 mmol/L 22.0-30.0 [facility] Serum or plasma urea nitroge n measurement (mass/volume)on 01-03-2017 Urea nitrogen [Mass/Vol] 12 mg/dL 9-23 [facility] WBC Auto (Bld) [#/Vol]on WBC (Bld) [#/Vol] 7.6 10*3/uL 3.8-11.6 [facility] No Panel Information [facility] Vital Signs Date Time Vital Sign Value Performing Clinician Faci lity 01-21-2023 09:58-0400 Body temperature 97.2 [degF] MD Christian Steiner Work Phone: [facility] 01-21-2023 09:58-0400 Body weight 76.65 kg MD Christian Steiner Work Phone: [facility] 01-21-2023 09:58-0400 Diastolic blood pressure 78 mm[Hg] MD Christian Steiner Work Phone: [facility] 01-21-2023 09:58-0400 Heart rate 71 /min MD Christian Steiner Work Phone: [facility] 01-21-2023 09:58-0400 Respiratory rate 16 /min MD Christian Steiner Work Phone: [facility] 01-21-2023 09:58-0400 SaO2% (BldA) [Mass fraction] 98 % MD Christian Steiner Work Phone: [facility] 01-21-2023 09:58-0400 Systolic blood pressure 141 mm[Hg] MD Christian Steiner Work Phone: [facility] 01-21-2022 10:03-0400 Body height 167.64 cm MD Christian Steiner [facility] 01-21-2022 10:03-0400 Body weight 82.64 kg MD Christian Steiner [facility] 01-21-2022 10:03-0400 Diastolic blood pressure 78 mm[Hg] MD Christian Steiner [facility] 01-21-2022 10:03-0400 Heart rate 98 /min MD Christian Steiner [facility] 01-21-2022 10:03-0400 Respiratory rate 18 /min MD Christian Steiner [facility] 01-21-2022 10:03-0400 SaO2% (BldA) [Mass fraction] 98 % MD Christian Steiner [facility] 01-21-2022 10:03-0400 Systolic blood pressure 122 mm[Hg] MD Christian Steiner [facility] 01-21-2021 10:29-0400 Body temperature 98 [degF] MD Christian Steiner [facility] Encounters Encounter Date Encounter Type Care Provider Facility Start: 01-21-2023 End: 01-21-2023 ambulatory MD Christian Steiner Work Phone: [facility] Work Phone: Start: 01-21-2023 End: 01-21-2023 Registered Recurring MD Christian Steiner Work Phone: [facility] Work Phone: Start: 01-17-2023 End: 01-17-2023 ambulatory ALESHA SCHULTE Facility:[facility] Start: 01-17-2023 End: 01-17-2023 Patient encounter procedure Alesha Schulte MD Work Phone: Ophthalmology Comment on above: Primary open-angle g laucoma, bilateral, mild stage (Primary Dx) Start: 08-02-2022 End: 09-01-2022 ambulatory COVARRUBIAS H FAWWAD Facility:[facility] Start: 07-05-2022 End: 07-05-2022 ambulatory KENYETTA REYNOLDS Facility:[facility] Start: 07-05-2022 End: 07-05-2022 Patient [...] 01-21-2022 End: 01-21-2022 ambulatory MD Christian Steiner [facility] Work Phone: Start: 01-21-2022 End: 01-21-2022 Registered Recurring MD Christian Steiner [facility] Start: 01-03-2022 End: 02-01-2022 [...] 09-28-2017 End: 09-29-2017 Patient encounter EMELY DOMENICO Facility:[facility] Start: 08-18-2017 Patient encounter procedure Christian Steiner Facility:[id number] Start: 03-31-2017 End: 04-01-2017 Patient encounter EMELY DOMENICO Facility:[facility] Start: 02-10-2017 End: 02-11-2017 Patient encounter EMELY DOMENICO Facility:[facility] Start: 01-28-2017 Ambulatory Pal Deshawn [facility] Procedures Date Procedure Procedure Detail Performing Clinician [...] Iza Steiner Start: 01-12-2019 Screening mammography M Iza Steiner Start: 07-14-2018 Dual energy X-ray absorptiometry [...] Activity Detail Author Start: 12-03-2022 Influenza vaccination [facility] Start: 04-04-2022 ADVANCE DIRECTIVE DISCUSSION ADVANCE DIRECTIVE DISCUSSION [facility] Start: 04-04-2022 DEPRESSION ASSESSMENT DEPRESSION ASSESSMENT [facility] Start: 12-03-2021 Influenza vaccination INFLUENZA (#1) [facility] Start: 04-04-2021 ADVANCE DIRECTIVE DISCUSSION ADVANCE DIRECTIVE DISCUSSION [facility] Start: 04-04-2021 DEPRESSION ASSESSMENT DEPRESSION ASSESSMENT [facility] Start: 2017 BONE DENSITY BONE DENSITY [facility] Start: 2017 Bone Density Screening Bone Density Screening [facility] Start: 2017 PNEUMOCOCCAL: 65+ (1 - PCV) PNEUMOCOCCAL: 65+ (1 - PCV) [facility] Start: 11-13-2014 SHINGRIX VACCINE (2 of 3) SHINGRIX VACCINE (2 of 3) [facility] Start: 2002 SHINGRIX VACCINE (1 of 2) SHINGRIX VACCINE (1 of 2) [facility] Start: 1997 COLOGUARD (FIT-DNA) COLOGUARD (FIT-DNA) [facility] Start: 1997 Colonoscopy COLONOSCOPY [facility] Start: 1997 COLORECTAL CANCER SCREENING COLORECTAL CANCER SCREENING [facility] Start: [address] COLONOGRAPHY [facility] Start: 1997 DIABETES SCREEN DIABETES SCREEN [facility] Start: 1997 Diabetes Screening Diabetes Screening [facility] Start: 1997 FECAL OCCULT BLOOD FECAL OCCULT BLOOD [facility] Start: 1997 Lipid 1996 panel - Serum or Plasma Lipid Screening [facility] Start: 1997 LIPID SCREEN LIPID SCREEN [facility] Start: 1997 SIGMOIDOSCOPY SIGMOIDOSCOPY [facility] Start: 1992 Mammography [facility] Start: 1982 Zoledronic acid therapy ALPHA-1 ANTITRYPSIN DEFICIENCY SCREENING [facility] Start: 1971 Urine microalbumin profile [facility] Start: 1970 ANNUAL PCP TEAM CHRONIC DISEASE VISIT ANNUAL PCP TEAM CHRONIC DISEASE VISIT [facility] Start: 1970 HEPATITIS C SCREENING HEPATITIS C SCREENING [facility] Start: 1970 SPIROMETRY SPIROMETRY [facility] Start: 1952 COVID-19 VACCINE (#1) COVID-19 VACCINE (#1) [facility] MG Breast - left Screening [facility] MG Breast - left Screening [facility] Immunizations Immunization Date Immunization Notes Care Provider Fa [facility] 01-05-2020 influenza (HD-IIV4) vaccine, age 65+ yr, high dose, quadrivalent, PF (FLUZONE HIGH-DOSE) Alesha Schulte MD Work Phone: [facility] 01-05-2020 influenza virus vacc ine, unspecified formulation Alesha Schulte MD Work Phone: [facility] 01-25-2018 pneumococcal polysaccharide vaccine, 23 valent Alesha Schulte MD Work Phone: [facility] 10-20-2017 pneumococcal conjuga te vaccine, 13 valent Alesha Schulte MD Work Phone: [facility] 09-17-2015 pneumococcal polysaccharide vaccine, 23 valent Alesha Schulte MD Work Phone: [facility] 06-09-2015 influenza, injectabl e, quadrivalent, preservative free Alesha Schulte MD Work Phone: [facility] 09-18-2014 zoster vaccine, live Raji Schulte MD Work Phone: [facility] 01-30-2009 novel influenza-H1N1 -09, preservative-free, injectable Alesha Schulte MD Work Phone: [facility] Payers Date Payer Category Payer Unknown MMO MMO MEDICARE SUPPLEMENT [id number] 2019-Present [phone] [address] [place] [address] Indemnity [id number] 2018 Medicare MEDICARE MEDICAR E A AND B [id number] 2018-Present [phone] [address] [address] [place] [address] Medicare [id number] 2016 Self-pay [id number] 1959 Medicare [id number] 1959 Unknown [id number] 1952 Unknown [id number] 1952 Unknown [id number] 2.16.840.1.808438.3.579.2.356 1952 Unknown [id number] 2.16.840.1.070844.3.579.2.356 1952 Unknown [id number] 2.16.840.1.585780.3.579.2.593 1952 Unknown [id number] 2.16.840.1.471884.3.579.2.593 1952 Unknown [id number] 2.16.840.1.348011.3.579.2.593 1952 Unknown [id number] 2.16.840.1.374835.3.579.2.593 1952 Unknown [id number] 2.16.840.1.358275.3.579.2.593 1952 Unknown [id number] 2.16.840.1.911653.3.579.2.593 1952 Unknown [id number] 2.16.840.1.599702.3.579.2.593 1952 Unknown [id number] 2.16.840.1.388793.3.579.2.593 1952 Unknown [id number] 2.16.840.1.773560.3.579.2.593 1952 Unknown [id number] 2.16.840.1.728232.3.579.2.593 1952 Unknown [id number] 2.16.840.1.736748.3.579.2.593 1952 Unknown [id number] 2.16.840.1.122815.3.579.2.593 1952 Unknown [id number] 2.16.840.1.018415.3.579.2.593 1952 Unknown [id number] 2.16.840.1.092454.3.579.2.593 Unknown [id number] Unknown [id number] [id number] Social History Date Type Detail Facility Start: 01-21-2021 End: 01-21-2023 Tobacco smoking status INIS Never smoked tobacco (finding) [facility] Start: 1950 Sex Assigned At Female F [facility] Start: 02-27-2019 Tobacco use and exposure Smoke less tobacco non-user [facility] Start: 09-18-2019 End: 01-17-2023 Alcohol intake Current drinker of alcohol (finding) [facility] Start: 09-18-2019 History SDOH Alcohol Frequency 2 [facility] Start: 09-18-2019 History SDOH Alcohol Std Drinks 1 [facility] Start: 02-27-2019 Alcohol Comment a glass of win e once every 2-3 months [facility] Start: 1950 Sex Assigned At Not on file C [facility] Start: 02-27-2019 End: 07-05-2022 History of Social function [facility] Start: 02-27-2019 End: 07-05-2022 Alcohol Use Disorder Identification Test - Consumption [AUDIT-C] [facility] Frequency of Alcohol Consumption Monthly or less [facility] Medical Equipment Procedure Code Equipment Code Equipment Origin al Text Equipment Identifier Dates Lens Acrysof Iq Toric 6mm +24.5 Diopter +6 Cylinder 0 D Biconvex Acrylic 13 - [id number] Start: 03-14-2019 Comment on above: Description: -0.57 Lens Acrysof Iq Toric Stableforce 6mm 0 D +22.5 Diopter +2.25 Cylinder - [id number] Start: 03-21-2019 Comment on above: Description: -0.80 Istent Inject - [id number] Start: 03-14-2019 Istent Inject - [id number] Start: 03-21-2019 Clinical Notes 01-04-2017 to 01-17-2023 Alesha Schulte MD - 01/17/2023 8:36 AM EDTAdonn Schulte MD - 07/05/2022 11:14 AM EDTTelephone Encounter - Nida Stockton - 03/11/2022 9:38 AM EST Note Date & Type Note Facility 01-17-2023 Note HNO ID: [id number] Author: Alesha Schulte MD Service: ? Author [...] agree with all of its relevant components. [facility] 01-17-2023 History of Presen t illness Narrative [...] its relevant components. documented in this encounter [facility] 07-05-2022 Note HNO ID: [id number] Author: Alesha Schulte MD Service: ? Author [...] agree with all of its relevant components. [facility] 07-05-2022 History of Presen t illness Narrative [...] its relevant components. documented in this encounter [facility] 03-19-2022 Note PROCEDURE: XR WRIST RT MIN 3 V HISTORY: Unspecified fall ; acute right wrist pain after falling COMPARISON: None. FINDINGS: BONES:No fracture, acute abnormality, or significant arthropathy. SOFT TISSUES:No visible soft tissue swelling. EFFUSION:None visible. OTHER: Negative. IMPRESSION: 1. No acute bone abnormality. 2. Multifocal mild degenerative changes. Electronically authenticated by: ADIEL MCCONNELL Date: 2022-03-19 10:26 [facility] 03-11-2022 Miscellaneous Notes Formattin g of this note might be different from the original. *SECOND ATTEMT* Called patient and LVM for her to call back and schedule an appt with for glaucoma suspect. Referral from Dr. Sebastian. Called patient and LVM to schedule an appointment with Dr. Schulte for GLC suspect. documented in this encounter [facility] 01-21-2022 Progress note Note Date/Time January 21, 2022 10:15[facility] [place] [id number] Hem/Onc Follow Up Note - OP Signed Patient: Myla Brothers MR#: [id number] : 1950 Acct:[id number] Age/Sex: 71 / F Type: REG RCR [...] of anastrozole, we will now follow annually [facility] patient wishes to return to oncology). We will arrange her annual follow-ups after her annual mammograms in January of each year. She also requested refill of breast prosthesis and mastectomy bra. No breast exam due to telephone visit. No skin changes or breast tenderness. No recent f/u by japanese tutor in [place]--was reported to have vasculitis 4 years ago--now resolved but still has some mild erythema and swelling of left greater than right leg without pain. Receives Anastrozole due to weak AK expression--no significant myalgias/arthralgias or hot flashes. No [...] pT1c, N0, M0. Tumor was ER negative, AK weak, and HER-2 nonamplified. She underwent right mastectomy at [place] in 02/2015. Completed dose dense AC X4 [...] years of adjuvant therapy. 3. Evaluated by japanese tutor in [place] (does not believe she had vasculitis)--no recent [...] inflammatory. She was referred to pulmonary at [facility]. Ground glass opacities resolved on PET/CT 08/2017. [...] of Therapies: 1. Right breast mastectomy at [facility] (Dr. Rodriguez) in 02/2015. 2. Completed [...] nodes positive, pT1c, N0, M0. ER negative, AK weak, and HER-2 nonamplified. (1) Breast cancer, right Qualifiers: Estrogen receptor status: negative Patient sex: female 1. 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 ER negative, AK weak, and HER-2 nonamplified. 2. She underwent mastectomy at [facility] in 02/2015. Completed dose dense AC X4 and Taxol X 12 in August 2015. 3. 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 Anastrozole was resumed in 03/2017 4. Saw japanese tutor in [place] for persistent leg pain and swelling (he [...] inflammatory. She was referred to pulmonary at [facility]. --Followup PET/CT 08/2017 showed resolution of prior [...] for coordination of care (as documented) and [id number] counseling of patient and/or family. Dictated By: Claire Duran APRN DD/ [id number] Signed By: <Electronically signed by CHIDI Duran> 01/21/22 1041 [facility] Work Phone: 1(708) 700-989910-20-2021 Progress note Author Kacie Garay [facility] January 21, 2021 8:25pm Note Date/Time January 21, 2021 1 0:34am [facility] [place] [id number] Hem/Onc Follow Up Note - OP Signed Patient: Myla Brothers MR#: [id number] : 1950 Acct:[id number] Age/Sex: 70 / F Type: REG RCR [...] of anastrozole, we will now follow annually [facility] patient wishes to return to oncology). We will arrange her annual follow-ups after her annual mammograms in January of each year. She also requested refill of breast prosthesis and mastectomy bra. No breast exam due to telephone visit. No skin changes or breast tenderness. No recent f/u by japanese tutor in [place]--was reported to have vasculitis 4 years ago--now resolved but still has some mild erythema and swelling of left greater than right leg without pain. Receives Anastrozole due to weak AK expression--no significant myalgias/arthralgias or hot flashes. No [...] pT1c, N0, M0. Tumor was ER negative, AK weak, and HER-2 nonamplified. She underwent right mastectomy at [facility] in 02/2015. Completed dose dense AC X4 [...] years of adjuvant therapy. 3. Evaluated by japanese tutor in [place] (does not believe she had vasculitis)--no recent [...] inflammatory. She was referred to pulmonary at [facility]. Ground glass opacities resolved on PET/CT 08/2017. [...] of Therapies: 1. Underwent right mastectomy at [place] in 02/2015. 2. Completed dose dense AC [...] nodes positive, pT1c, N0, M0. ER negative, AK weak, and HER-2 nonamplified. (1) Breast cancer, right Qualifiers: Estrogen receptor status: negative Patient sex: female 1. 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 ER negative, AK weak, and HER-2 nonamplified. 2. She underwent mastectomy at [facility] in 02/2015. Completed dose dense AC X4 and Taxol X 12 in August 2015. 3. 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 Anastrozole was resumed in 03/2017 4. Saw japanese tutor in [place] for persistent leg pain and swelling (he [...] inflammatory. She was referred to pulmonary at [facility]. --Followup PET/CT 08/2017 showed resolution of prior [...] for coordination of care (as documented) and eqcx-fx-pdis counseling of patient and/or family. Dictated By: Kacie Garay MD DD/ 1034 Signed By: <Electronically signed by MD Kacie Garay> 01/21/212024 [facility] Work Phone: [phone] Progress note Author Kacie Garay [facility] July 21, 2020 11:38am Note Date/Time July 21, 2020 9:3 9am [facility] [place] [address] Hem/Onc Follow Up Note - OP Signed Patient: Myla Brothers MR#: [id number] : 1950 Acct:[id number] Age/Sex: 70 / F Type: REG RCR Copies to: Kenyetta Reynolds MD~ Subjective Date/Time of Service: Date of Service: 07/21/2020 Time of Service: 09:36 Chief Complaint: Patient has consented to doxy visit for 4 month follow up visitfor breast cancer and to review bone densitometry test. HPI: Patient had video visit (doxy.la) today for 4-month follow-up and review of [...] of anastrozole, we will now follow [facility] but patient wishes to return to oncology). We will arrange her annual follow-ups after her annual mammograms in January of each year. She also requested refill of breast prosthesis and mastectomy bra. No breast exam due to telephone visit. No skin changes or breast tenderness. No recent f/u by japanese tutor in [place]--was reported to have vasculitis 4 years ago--now resolved but still has some mild erythema and swelling of left greater than right leg without pain. Receives Anastrozole due to weak AK expression--no significant myalgias/arthralgias or hot flashes. No [...] pT1c, N0, M0. Tumor was ER negative, AK weak, and HER-2 nonamplified. She underwent right mastectomy at [facility] in 02/2015. Completed dose dense AC X4 [...] years of adjuvant therapy. 3. Evaluated by japanese tutor in [place] (does not believe she had vasculitis)--no recent f/u. 4. She was noted to have pulmonary nodules and a PET scan was done in January 2017 that showed A. Two small but hypermetabolic left axillary lymph nodes. She subsequently had an EUS and Dr Hses noted that the lymph nodes had actually [...] inflammatory. She was referred to pulmonary at [facility]. Ground glass opacities resolved on PET/CT 08/2017. [...] of Therapies: 1. Underwent right mastectomy at [facility] in 02/2015. 2. Completed dose dense AC [...] nodes positive, pT1c, N0, M0. ER negative, AK weak, and HER-2 nonamplified. (1) Breast cancer, right Qualifiers: Estrogen receptor status: negative Patient sex: female 1. 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 ER negative, AK weak, and HER-2 nonamplified. 2. She underwent mastectomy at [facility] in 02/2015. Completed dose dense AC X4 and Taxol X 12 in August 2015. 3. 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 Anastrozole was resumed in 03/2017 4. Saw japanese tutor in [place] for persistent leg pain and swelling (he [...] inflammatory. She was referred to pulmonary at [place]. --Followup PET/CT 08/2017 showed resolution of prior [...] for coordination of care (as documented) and jjqr-[id number]-lxik counseling of patient and/or family. Dictated By: Kacie Garay MD DD/ 0936 Signed By: <Electronically signed by MD Kacie Garay> 07/21/20 1716 [facility] Work Phone: 1([phone]) 315-977712-09-2020 Progress note Author Kacie Garay [facility] March 12, 2020 2:49pm Note Date/Time March 12, 2020 9 :56am [facility] [place] [id number] Hem/Onc Follow Up Note - OP Signed Patient: Myla Brothers MR#: [id number] : 1950 Acct:[id number] Age/Sex: 69 / F Type: REG RCR [...] or breast tenderness. No recent f/u by japanese tutor in [place]--was reported to have vasculitis 4 years ago--now resolved but still has some mild erythema and swelling of left greater than right leg without pain. Receives Anastrozole due to weak AK expression--no significant myalgias/arthralgias or hot flashes. No [...] pT1c, N0, M0. Tumor was ER negative, AK weak, and HER-2 nonamplified. She underwent right mastectomy at [place] in 02/2015. Completed dose dense AC X4 [...] of extended adjuvant therapy. 3. Evaluated by japanese tutor in [place] (does not believe she had vasculitis)--no recent [...] inflammatory. She was referred to pulmonary at [place]. Ground glass opacities resolved on PET/CT 08/2017. [...] of Therapies: 1. Underwent right mastectomy at [place] in 02/2015. 2. Completed dose dense AC [...] lymph nodes positive, pT1c, N0,M0. ER negative, AK weak, and HER-2 nonamplified. 2. She underwent mastectomy at [facility] in 02/2015. Completed dose dense AC X4 and Taxol X 12 in August 2015. 3. 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 Anastrozole was resumed in 03/2017 4. Saw japanese tutor in [place] for persistent leg pain and swelling (he [...] inflammatory. She was referred to pulmonary at [place]. --Followup PET/CT 08/2017 showed resolution of prior [...] for coordination of care (as documented) and eskk-xd-[id number] counseling of patient and/or family. Dictated By: Kacie Garay MD DD/ 0954 Signed By: <Electronically signed by MD Kacie Garay> 03/12/20 1443 [facility] Work Phone: [phone] Progress note Author Kacie Garay [facility] September 05, 2019 1:07pm Note Date/Time September 05, 2019 10:57 am [facility] at [address] [address] Hem/Onc Follow Up Note - OP Signed Patient: Myla Brothers MR#: [id number] : 1950 Acct:[id number] Age/Sex: 69 / F Type: REG RCR [...] or breast tenderness. No recent f/u by japanese tutor in [place]--was reported to have vasculitis 3 years ago--now resolved but still has some mild erythema and swelling of left greater than right leg without pain. Receives Anastrozole due to weak AK expression--no significant myalgias/arthralgias or hot flashes. No [...] pT1c, N0, M0. Tumor was ER negative, AK weak, and HER-2 nonamplified. She underwent right mastectomy at [place] in 02/2015. Completed dose dense AC X4 and Taxol X 12 in August 2015. 2. Anastrozole with calcium and vitamin D started in August 2015. Calcium and vitamin D discontinued 07/2016 Anastrozole stopped in 01/2017 when she developed vasculitis (erythematous rash over legs) although no proven association at this time. Anastrozole was resumed in 03/2017 3. Evaluated by japanese tutor in [place] (does not believe she had vasculitis)--no recent [...] inflammatory. She was referred to pulmonary at [facility]. Ground glass opacities resolved on PET/CT 08/2017. [...] of Therapies: 1. Underwent right mastectomy at [facility] in 02/2015. 2. Completed dose dense AC [...] nodes positive, pT1c, N0, M0. ER negative, AK weak, and HER-2 nonamplified. 2. She underwent mastectomy at [facility] in 02/2015. Completed dose dense AC X4 and Taxol X 12 in August 2015. 3. 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 Anastrozole was resumed in 03/2017 4. Saw japanese tutor in [place] for persistent leg pain and swelling (he [...] inflammatory. She was referred to pulmonary at [facility]. --Followup PET/CT 08/2017 showed resolution of prior [...] vasculitis but per second opinion from a japanese tutor and cinder dump crane operator in [place] this is not vasculitis. They told her [...] for coordination of care (as documented) and zflc-ml-facf counseling of patient and/or family. Dictated By: Kacie Garay MD DD/ 1055 Signed By: <Electronically signed by MD Kacie Garay> 09/05/19 1305 [facility] Work Phone: 1([phone]) [phone] History of Past illness Narrative* Problem Noted Date Resolved Date Combined forms of age-related cataract of both e yes 02/22/2019 03/21/2019 documented as of this encounter (statuses as of 03/11/2022) [facility]11-21-2019 History of Past illness Narrative* Problem Noted Date Resolved Date Combined forms of age-related cataract of both e yes 02/22/2019 03/21/2019 documented as of this encounter (statuses as of 07/05/2022) [facility]-21-2019 History of Past illness Narrative* Problem Noted Date Diagnosed Date Resolved Date Combined forms of age-relate d cataract of both eyes 02/22/2019 03/21/2019 documented as of this encounter (statuses as of 01/17/2023) [facility]-21-2019 Progress note Author Kacie Garay [facility] January 22, 2019 9:28pm Note Date/Time January 22, 2019 1 0:40[facility] [place] [address] Hem/Onc Follow Up Note - OP Signed Patient: Myla Brothers MR#: [id number] : 1950 Acct:[id number] Age/Sex: 68 / F Type: REG RCR [...] or breast tenderness. [place] reported to have vasculitis 2 1/2 years ago--now resolved. Receives Anastrozole due to weak AK expression--no significant myalgias/arthralgias or hot flashes. No bowel or bladder complaints. No interval changes in medical history. We reviewed DEXA scan showing normal bone density 07/17/2018. DIAGNOSIS: 1. 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 Tumor was ER negative, AK weak, and HER-2 nonamplified. She underwent right mastectomy at [place] in 02/2015. Completed dose dense AC X4 and Taxol X 12 in August 2015. 2. Anastrozole with calcium and vitamin D started in August 2015. Calcium and vitamin D discontinued 07/2016 Anastrozole stopped in 01/2017 when she developed vasculitis (erythematous rash over legs) although no proven association at this time. Anastrozole was resumed in 03/2017 3. Evaluated by japanese tutor in [place] (does not believe she had vasculitis)--no recent [...] inflammatory. She was referred to pulmonary at [facility]. Ground glass opacities resolved on PET/CT 08/2017. [...] of Therapies: 1. Underwent right mastectomy at [facility] in 02/2015. 2. Completed dose dense AC [...] nodes positive, pT1c, N0, M0. ER negative, AK weak, and HER-2 nonamplified. 2. She underwent mastectomy at [facility] in 02/2015. Completed dose dense AC X4 and Taxol X 12 in August 2015. 3. 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 Anastrozole was resumed in 03/2017 4. Saw japanese tutor in [place] for persistent leg pain and swelling (he [...] inflammatory. She was referred to pulmonary at [facility]. --Followup PET/CT 08/2017 showed resolution of prior [...] vasculitis but per second opinion from a japanese tutor and cinder dump crane operator in [place] this is not vasculitis. They told her [...] for coordination of care (as documented) and utpk-dr-ksgv counseling of patient and/or family. Dictated By: Kacie Garay MD DD/ 1039 Signed By: <Electronically signed by MD Kacie Garay> 01/22/193 [facility] Work Phone: [phone]) [phone] Progress note Author Kacie Garay [facility] July 19, 2018 8:36pm Note Date/Time July 19, 2018 10: 48am [facility] [place] [address] Hem/Onc Follow Up Note - OP Signed Patient: Myla Brothers MR#: [id number] : 1950 Acct:[id number] Age/Sex: 68 / F Type: REG RCR [...] pT1c, N0, M0. Tumor was ER negative, AK weak, and HER-2 nonamplified. She underwent right mastectomy at [facility] in 02/2015. Completed dose dense AC X4 and Taxol X 12 in August 2015. 2. Anastrazole with calcium and vitamin D started in August 2015, Calcium and vitamin D discontinued 07/2016 Anastrozole stopped in 01/2017 when she developed vasculitis (erythematous rash over legs) although no proven association at this time. Anastrozole was resumed in 03/2017 3. Evaluated by japanese tutor in [place] (does not believe she had vasculitis)--no recent [...] inflammatory. She was referred to pulmonary at [facility]. Ground glass opacities resolved on PET/CT 08/2017. [...] or breast tenderness. [place] reported to have vasculitis 2 years ago--now resolved. Receives Anastrozole due to weak AK expression--no significant myalgias/arthralgias or hot flashes. No bowel or bladder complaints. No interval changes in medical history. We reviewed DEXA scan showing normal bone density 07/17/2018. - Summary of Therapies Summary of Therapies: 1. Underwent right mastectomy at [facility] in 02/2015. 2. Completed dose dense AC [...] scan 07/17/2018 reviewed--normal. Annual bilateral mammography at [facility] 01/2018--ordered 6 month f/u mammogram prior to next f/u. Assessment and Plan (1) Breast cancer, right Qualifiers: Estrogen receptor status: negative Patient sex: female 1. 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 ER negative, AK weak, and HER-2 nonamplified. 2. She underwent mastectomy at [facility] in 02/2015. Completed dose dense AC X4 and Taxol X 12 in August 2015. 3. Anastrazole with calcium and vitamin D started in August 2015, Calcium and vitamin D discontinued 07/2016 Anastrozole stopped in 01/2017 when she developed vasculitis although there is no proven association at this time. Anastrozole was resumed in 03/2017 4. Seeing japanese tutor in [place] for persistent leg pain and swelling (he [...] inflammatory. She was referred to pulmonary at [facility]. --Followup PET/CT 08/2017 showed resolution of prior [...] unless new symptoms arise. Annual mammogram at [facility] prior to next followup. DEXA normal--f/u in [...] vasculitis but per second opinion from a japanese tutor and cinder dump crane operator in [place] this is not vasculitis. They told her [...] for coordination of care (as documented) and wrvz-qv-ssrd counseling of patient and/or family. Dictated By: Kacie Garay MD DD/ 1048 Signed By: <Electronically signed by MD Kacie Garay> 07/19/182035 [facility] Work Phone: [phone] Progress note Author Kacie Garay [facility] January 18, 2018 8:17pm Note Date/Time January 17, 2018 3 :44pm [facility] [place] [address] Hem/Onc Follow Up Note - OP Signed Patient: Myla Brothers MR#: [id number] : 1950 Acct:[id number] Age/Sex: 67 / F Type: REG RCR [...] pT1c, N0, M0. Tumor was ER negative, AK weak, and HER-2 nonamplified. She underwent right mastectomy at [facility] in 02/2015. Completed dose dense AC X4 and Taxol X 12 in August 2015. 2. Anastrazole with calcium and vitamin D started in August 2015, Calcium and vitamin D discontinued 07/2016 Anastrazole stopped in 01/2017 when she developed vasculitis although thereis no proven association at this time. Anastrozole was resumed in 03/2017 3. Now follows with rhematologist in [place] (does not believe she had vasculitis). 4. [...] inflammatory. She was referred to pulmonary at [facility]. Ground glass opacities resolved on PET/CT 08/2017. 5. A focus of increased uptake in the liver of uncertain significance was also identified. On MRI of the liver there was no abnormality found. HPI: Patient returns to the clinic for transfer of care from Dr. Steiner. No changes on self breast exam. No skin changes or breast tenderness. 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 Receives Anastrozole due to weak AK expression--no significant myalgias/arthralgias or hot flashes. No bowel or bladder complaints. - Summary of Therapies Summary of Therapies: 1. Underwent right mastectomy at [facility] in 02/2015. 2. Completed dose dense AC [...] % (Auto) 27.4 % (.) 01/03/17 17:45 Craig % (Auto) 12.7 % (.) 01/03/17 17:45 Eos % (Auto) 1.5 % (.) 01/03/17 17:45 Baso % (Auto) 0.6 % (.) 01/03/17 17:45 Neut # (Auto) 4.4 x10E3/uL (1.8-7.7) 01/03/17 17:45 Lymph # (Auto) 2.1 x10E3/uL (1.00-4.8) 01/03/17 17:45 Craig # (Auto) 1.0 x10E3/uL (0.0-0.8) H 01/03/17 [...] where applicable. 01/11/2018--left diagnostic mammogram reviewed from [facility] Left breast stable with scattered benign appearing calcifications and benign appearing lymph nodes. BIRADS 2--Benign findings. Assessment and Plan (1) Breast cancer, right Qualifiers: Estrogen receptor status: negative Patient sex: female Status: Chronic 1. 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 ER negative, AK weak, and HER-2 nonamplified. 2. She underwent mastectomy at [place] in 02/2015. Completed dose dense AC X4 and Taxol X 12 in August 2015. 3. Anastrazole with calcium and vitamin D started in August 2015, Calcium and vitamin D discontinued 07/2016 Anastrazole stopped in 01/2017 when she developed vasculitis although there is no proven association at this time. Anastrozole was resumed in 03/2017 4. Seeing japanese tutor in [place] for persistent leg pain and swelling (he [...] inflammatory. She was referred to pulmonary at [place]. Followup PET/CT 08/2017 showed resolution of prior [...] vasculitis but per second opinion from a japanese tutor and cinder dump crane operator in [place] this is not vasculitis. They told her [...] for coordination of care (as documented) and znmq-if-lofe counseling of patient and/or family. 25 - 35 minutes Dictated By: Kacie Garay MD DD/ 1543 Signed By: <Electronically signed by Kacie Garay MD> 01/18/182016 [facility] Work Phone: 1([phone]) [phone] Progress note Author Mohsen Steiner [facility] August 18, 2017 3:25pm Note Date/Time August 18, 2017 3:23p [facility] at [address] [address] Hem/Onc Follow Up Note - OP Signed Patient: Myla Brothers MR#: [id number] : 1950 Acct:[id number] Age/Sex: 67 / F Type: REG RCR [...] % (Auto) 27.4 % (.) 01/03/17 17:45 Craig % (Auto) 12.7 % (.) 01/03/17 17:45 Eos % (Auto) 1.5 % (.) 01/03/17 17:45 Baso % (Auto) 0.6 % (.) 01/03/17 17:45 Neut # (Auto) 4.4 x10E3/uL (1.8-7.7) 01/03/17 17:45 Lymph # (Auto) 2.1 x10E3/uL (1.00-4.8) 01/03/17 17:45 Craig # (Auto) 1.0 x10E3/uL (0.0-0.8) H 01/03/17 [...] N0, M0. 2. Tumor was ER negative, AK weak, and HER-2 nonamplified. 3. She underwent mastectomy at [place] in 02/2015. Completed dose dense AC X4 [...] inflammatory. She was referred to pulmonary at [place] 8. A focus of increased uptake in [...] vasculitis but per second opinion from a japanese tutor and cinder dump crane operator in [place] this is not vasculitis. They told her [...] for coordination of care (as documented) and lswo-qc-pdlc counseling of patient and/or family. Dictated By: Mohsen Steiner MD DD/ 1510 Signed By: <Electronically signed by Mohsen Steiner MD> 08/18/17 1596 [facility] Work Phone: 1([phone]) [phone] Progress note Author Mohsen Steiner [facility] July 21, 2017 3:44pm Note Date/Time July 21, 2017 3:4 0pm [facility] [place] [address] Hem/Onc Follow Up Note - OP Signed Patient: Myla Brothers MR#: [id number] : 1950 Acct:[id number] Age/Sex: 67 / F Type: REG RCR Copies to: Mario Og DO~ Subjective Date/Time of Service: Date of Service: 07/21/2017 Time of Service: 15:39 Chief Complaint: Patient here for four month follow up appointment with labs. HPI: Patient returns to the clinic for a pre-scheduled follow-up visit that reports that 1. She saw a cinder dump crane operator and japanese tutor in [place]. They do not think that she has [...] % (Auto) 27.4 % (.) 01/03/17 17:45 Craig % (Auto) 12.7 % (.) 01/03/17 17:45 Eos % (Auto) 1.5 % (.) 01/03/17 17:45 Baso % (Auto) 0.6 % (.) 01/03/17 17:45 Neut # (Auto) 4.4 x10E3/uL (1.8-7.7) 01/03/17 17:45 Lymph # (Auto) 2.1 x10E3/uL (1.00-4.8) 01/03/17 17:45 Craig # (Auto) 1.0 x10E3/uL (0.0-0.8) H 01/03/17 [...] N0, M0. 2. Tumor was ER negative, AK weak, and HER-2 nonamplified. 3. She underwent mastectomy at [place] in 02/2015. Completed dose dense AC X4 [...] inflammatory. She was referred to pulmonary at [place] 8. A focus of increased uptake in [...] vasculitis but per second opinion from a japanese tutor and cinder dump crane operator in [place] this is not vasculitis. They told her [...] for coordination of care (as documented) and iiqo-ku-mneh counseling of patient and/or family. Dictated By: Mohsen Steiner MD DD/ 1539 Signed By: <Electronically signed by Mohsen Steiner MD> 07/21/17 6270 [facility] Work Phone: 1([phone]) [phone] Progress note Author Mohsen Steiner [facility] March 25, 2017 11:28am Note Date/Time March 25, 2017 11:27am [facility] [place] [address] Hem/Onc Follow Up Note - OP Signed Patient: Myla Brothers MR#: [id number] : 1950 Acct:[id number] Age/Sex: 66 / F Type: REG RCR Copies to: Mario Og DO~ Subjective Date/Time of Service: Date of Service: 03/25/2017 Time of Service: 11:25 Chief Complaint: Patient is here to review MRI report and to follow up after seeing the canine deputy. HPI: Patient returns to the clinic for a pre-scheduled follow-up visit that reports that 1. She was seen at [facility] rheumatology, and from there she was referred to a cinder dump crane operator in [place]. No final diagnosis has yet been made. 2. She had an MRI of the liver 3. She was seen by pulmonary in [facility] Details: All systems reviewed & no additional [...] % (Auto) 27.4 % (.) 01/03/17 17:45 Craig % (Auto) 12.7 % (.) 01/03/17 17:45 Eos % (Auto) 1.5 % (.) 01/03/17 17:45 Baso % (Auto) 0.6 % (.) 01/03/17 17:45 Neut # (Auto) 4.4 x10E3/uL (1.8-7.7) 01/03/17 17:45 Lymph # (Auto) 2.1 x10E3/uL (1.00-4.8) 01/03/17 17:45 Craig # (Auto) 1.0 x10E3/uL (0.0-0.8) H 01/03/17 [...] N0, M0. 2. Tumor was ER negative, AK weak, and HER-2 nonamplified. 3. She underwent mastectomy at [place] in 02/2015. Completed dose dense AC X4 [...] pulmonary (by her preference to a new canine deputy at [facility]) 8. A focus of increased uptake in the liver of quasi-significance was also identified. On MRI of the liver there was no abnormality found (2) Pulmonary embolism Status: Chronic She is currently on warfarin (3) Vasculitis Status: Acute She is being seen by rheumatology at [facility]. (4) Lung nodules Status: Resolved Her [...] for coordination of care (as documented) and ouce-gt-afmo counseling of patient and/or family. Dictated By: Mohsen Steiner MD DD/ 24 Signed By: <Electronically signed by Mohsen Steiner MD> 03/25/178 [facility] Work Phone: [phone]) 784-662712-13-2017 Progress note Author Mohsen Steiner [facility] March 16, 2017 3:11pm Note Date/Time March 16, 2017 2:57pm [facility] [place] [address] Hem/Onc Follow Up Note - OP Signed Patient: Myla Brothers MR#: [id number] : 1950 Acct:[id number] Age/Sex: 66 / F Type: REG RCR Copies to: Mario Og DO~ Subjective Date/Time of Service: Date of Service: 03/16/2017 Time of Service: 14:55 Chief Complaint: Patient is here for review of [employer] reports. HPI: Patient returns to the clinic for a pre-scheduled follow-up visit that reports that 1. She was seen at [facility] rheumatology, and from there she was referred to a cinder dump crane operator in [place]. No final diagnosis has yet been made [...] % (Auto) 27.4 % (.) 01/03/17 17:45 Craig % (Auto) 12.7 % (.) 01/03/17 17:45 Eos % (Auto) 1.5 % (.) 01/03/17 17:45 Baso % (Auto) 0.6 % (.) 01/03/17 17:45 Neut # (Auto) 4.4 x10E3/uL (1.8-7.7) 01/03/17 17:45 Lymph # (Auto) 2.1 x10E3/uL (1.00-4.8) 01/03/17 17:45 Craig # (Auto) 1.0 x10E3/uL (0.0-0.8) H 01/03/17 [...] N0, M0. 2. Tumor was ER negative, AK weak, and HER-2 nonamplified. 3. She underwent mastectomy at [place] in 02/2015. Completed dose dense AC X4 [...] pulmonary (by her preference to a new canine deputy at [facility]) 8. A focus of increased uptake in the liver of quasi-significance was also identified. MRI of the liver has been requested (2) Pulmonary embolism Status: Chronic She is currently on warfarin (3) Vasculitis Status: Acute She was seen by rheumatology at [facility]. (4) Lung nodules Status: Acute Her [...] for coordination of care (as documented) and ladk-qy-fran counseling of patient and/or family. Dictated By: Mohsen Steiner MD DD/ 1455 Signed By: <Electronically signed by Mohsen Steiner MD> 03/16/17 1511 [facility] Work Phone: 1([phone] 717-707611-27-2017 Progress note Author Mohsen Steiner [facility] February 28, 2017 2:51pm Note Date/Time February 28, 2017 2:29pm [facility] [place] [address] Hem/Onc Follow Up Note - OP Signed Patient: Myla Brothers MR#: [id number] : 1950 Acct:[id number] Age/Sex: 66 / F Type: REG RCR Copies to: Mario Og DO~ Subjective Date/Time of Service: Date of Service: 02/28/2017 Time of Service: 14:26 Chief Complaint: Patient here to follow up after rheumatology referral. HPI: Patient returns to the clinic for a pre-scheduled follow-up visit that reports that 1. She was seen at [facility] rheumatology ROS Details: All systems reviewed [...] % (Auto) 27.4 % (.) 01/03/17 17:45 Craig % (Auto) 12.7 % (.) 01/03/17 17:45 Eos % (Auto) 1.5 % (.) 01/03/17 17:45 Baso % (Auto) 0.6 % (.) 01/03/17 17:45 Neut # (Auto) 4.4 x10E3/uL (1.8-7.7) 01/03/17 17:45 Lymph # (Auto) 2.1 x10E3/uL (1.00-4.8) 01/03/17 17:45 Craig # (Auto) 1.0 x10E3/uL (0.0-0.8) H 01/03/17 [...] N0, M0. 2. Tumor was ER negative, AK weak, and HER-2 nonamplified. 3. She underwent mastectomy at [place] in 02/2015. Completed dose dense AC X4 [...] Acute She was seen by rheumatology at [facility]. The ordered some initial workup that [...] for coordination of care (as documented) and qigt-dk-ouug counseling of patient and/or family. Dictated By: Mohsen Steiner MD DD/ 1426 Signed By: <Electronically signed by Mohsen Steiner MD> 02/28/17 1451 [facility] Work Phone: 1([phone] 499-678511-02-2017 Progress note Author Mohsen Steiner [facility] February 03, 2017 9:03am Note Date/Time February 03, 2017 9 :01am [facility] [place] [address] Hem/Onc Follow Up Note - OP Signed Patient: Myla Brothers MR#: [id number] : 1950 Acct:[id number] Age/Sex: 66 / F Type: REG RCR Copies to: Mario Og DO~ Subjective Date/Time of Service: Date of Service: 02/03/2017 Time of Service: 08:58 Chief Complaint: Patient here to follow up after EGD and EUS. HPI: Patient returns to the clinic for a pre-scheduled follow-up visit that reports that 1. She had an EUS at [facility] by Dr. Tara Hess and no [...] % (Auto) 27.4 % (.) 01/03/17 17:45 Craig % (Auto) 12.7 % (.) 01/03/17 17:45 Eos % (Auto) 1.5 % (.) 01/03/17 17:45 Baso % (Auto) 0.6 % (.) 01/03/17 17:45 Neut # (Auto) 4.4 x10E3/uL (1.8-7.7) 01/03/17 17:45 Lymph # (Auto) 2.1 x10E3/uL (1.00-4.8) 01/03/17 17:45 Craig # (Auto) 1.0 x10E3/uL (0.0-0.8) H 01/03/17 [...] N0, M0. 2. Tumor was ER negative, AK weak, and HER-2 nonamplified. 3. She underwent mastectomy at [place] in 02/2015. Completed dose dense AC X4 [...] Status: Acute She was referred to the [facility] but her appointment is in April which [...] for coordination of care (as documented) and foug-au-kvgv counseling of patient and/or family. Dictated By: Mohsen Steiner MD DD/ 0858 Signed By: <Electronically signed by Mohsen Steiner MD> 02/03/17 0[facility] Work Phone: [phone] Progress note Author Mohsen Steiner [facility] January 12, 2017 10:59pm Note Date/Time January 12, 2017 1 0:57pm [facility] [place] [address] Hem/Onc Follow Up Note - OP Signed Patient: Myla Brothers MR#: [id number] : 1950 Acct:[id number] Age/Sex: 66 / F Type: REG RCR Copies to: Mario Og DO~ Subjective Date/Time of Service: Date of Service: 01/12/2017 Time of Service: 22:52 Chief Complaint: Patient is here to follow up PET scan results. HPI: Patient returns to the clinic for a pre-scheduled follow-up visit that reports that 1. She was diagnosed with vasculitis at [facility] 2. She was found to have [...] % (Auto) 27.4 % (.) 01/03/17 17:45 Craig % (Auto) 12.7 % (.) 01/03/17 17:45 Eos % (Auto) 1.5 % (.) 01/03/17 17:45 Baso % (Auto) 0.6 % (.) 01/03/17 17:45 Neut # (Auto) 4.4 x10E3/uL (1.8-7.7) 01/03/17 17:45 Lymph # (Auto) 2.1 x10E3/uL (1.00-4.8) 01/03/17 17:45 Craig # (Auto) 1.0 x10E3/uL (0.0-0.8) H 01/03/17 [...] N0, M0. 2. Tumor was ER negative, AK weak, and HER-2 nonamplified. 3. She underwent mastectomy at [place] in 02/2015. Completed dose dense AC X4 [...] We will be referring her to the [facility] for evaluation and management. (4) Lung nodules [...] for coordination of care (as documented) and rtpq-az-ekhv counseling of patient and/or family. Dictated By: Mohsen Steiner MD DD/ 51 Signed By: <Electronically signed by Mohsen Steiner MD> 01/12/172258 [facility] Work Phone: 1([phone] Progress note Author Mohsen Steiner [facility] January 05, 2017 4:45pm Note Date/Time January 05, 2017 4: 38pm [facility] [place] [address] Hem/Onc Follow Up Note - OP Signed Patient: Myla Brothers MR#: [id number] : 1950 Acct:[id number] Age/Sex: 66 / F Type: REG RCR cc: Mario Og DO~ Subjective Date/Time of Service: Date of Service: 01/05/2017 Time of Service: 16:37 Chief Complaint: Patient is here for follow up to CT scan patient has been having ongoing vascular problems. HPI: Patient returns to the clinic for a pre-scheduled follow-up visit that reports that 1. She was diagnosed with vasculitis at [facility] 2. She was found to have [...] % (Auto) 27.4 % (.) 01/03/17 17:45 Craig % (Auto) 12.7 % (.) 01/03/17 17:45 Eos % (Auto) 1.5 % (.) 01/03/17 17:45 Baso % (Auto) 0.6 % (.) 01/03/17 17:45 Neut # (Auto) 4.4 x10E3/uL (1.8-7.7) 01/03/17 17:45 Lymph # (Auto) 2.1 x10E3/uL (1.00-4.8) 01/03/17 17:45 Craig # (Auto) 1.0 x10E3/uL (0.0-0.8) H 01/03/17 [...] N0, M0. 2. Tumor was ER negative, AK weak, and HER-2 nonamplified. 3. She underwent mastectomy at [place] in 02/2015. Completed dose dense AC X4 [...] that in November, she was admitted at [facility] and was diagnosed with vasculitis affecting [...] for coordination of care (as documented) and cexl-zi-gxrt counseling of patient and/or family. Dictated By: Mohsen Steiner MD DD/ 1637 Signed By: <Electronically signed by Mohsen Steiner MD> 01/05/17 78[address] [facility] Work Phone: 1([phone]) 266-410310-03-2017 Progress note Author Jefferson Rice [facility] January 04, 2017 11:22am Note Date/Time January 04, 2017 11 :22am [facility] at [address] [address] Hem/Onc Follow Up Note - OP Signed Patient: Myla Brothers MR#: [id number] : 1950 Acct:[id number] Age/Sex: 66 / F Type: REG RCR [...] for coordination of care (as documented) and cwcc-wu-lrzt counseling of patient and/or family. Dictated By: Jefferson Rice MD DD/ 1120 Signed By: <Electronically signed by Jefferson Rice MD> 01/04/17 1122 [facility] Work Phone: Evaluation note* Diagnosis Onset Date Resolution Status Breast cancer, right chronic Encounter for monitoring anastrozole therapy chronic Osteoarthritis of knees, bilateral chronic Pulmonary embolism chronic Screening for osteoporosis c hronic Cutaneous leukocytoclastic angiitis resolved History of hypercalcemia res olved Hypercalcemia resolved Lung nodules resolved Neuropathy resolved Vasculitis resolved [facility] Work Phone: Evaluation note* Diagnosis Primary open-angle glaucoma, bilateral, mild stage- Primary [facility] Primary open-angle glaucoma, bilateral, mild stage- Primary documented in this encounter [facility] Summary Purpose Family History No Family History [...] the event of a Fluress shortage, administer [place]-Fluor 1 drop into both eyes as directed for applanation tonometry Given 01/17/2023 8:30 AM EDT 1 Drop Additional Source Comments INFORMATION SOURCE (unrecogn ized section and content) DATE CREATED AUTHOR 09/27/2017 [facility] DATE CREATED AUTHOR AUTHOR'S ORGANIZ ATION 01/18/2018 [facility] DATE CREATED AUTHOR AUTHOR'S ORGANIZ ATION 08/05/2018 [facility] DATE CREATED AUTHOR AUTHOR'S ORGANIZ ATION 09/10/2022 [facility] DATE CREATED AUTHOR AUTHOR'S ORGANIZ ATION 01/17/2023 [facility] DATE CREATED AUTHOR AUTHOR'S ORGANIZ ATION 01/21/2023 [facility] Care Teams (unrecognized sec tion and content) Team Status: Active Member Role Status Dates Kenyetta Reynolds MD Primary Care Provider Active Team Status: Active Member Role Status Dates Christian Steiner MD Other Provider Active Kacie Garay MD Attending Provider Active Kenyetta Reynolds MD Primary Care Provider Active Angle Furnaceman Relationship Specialty Start Date End Date Kenyetta Reynolds MD [facility] [place] [address] PCP - General Family Medicine 03/14/19 Angle Furnaceman Relationship Specialty Start Date End Date Kenyetta Reynolds MD PCP - General Family Medicine 03/14/19 Angle Furnaceman Relationship Specialty Start Date End Date Kenyetta [...] or prosecute any alcohol or drug abuse patient.[facility] the event this information is protected by the Federal Confidentiality of Alcohol and Drug Abuse Patient Records regulations: The Federal rules restrict any use of the information to criminally investigate or prosecute any alcohol or drug abuse patient.[facility] Company[facility] the event this information is protected by the Federal Confidentiality of Alcohol and Drug Abuse Patient Records regulations: The Federal rules restrict any use of the information to criminally investigate or prosecute any alcohol or drug abuse patient.[facility] Reason for Visit (unrecogniz ed section and [...] BE BASED ON THE PRIMARY CLINICAL RECORDS. [facility] [employer], [facility]. provides no warranty or guarantee of the accuracy or completeness of information in this document.
[2023-04-21 10:02] LABS: Basophils Percent Auto 0.3 % (0.2-2.0); Eosinophils Absolute Auto 0.1 10^3/uL (0.0-0.7); Immature Granulocytes Abs Auto 0.01 10^3/uL (0.00-0.03); Immature Granulocytes Pct Auto 0.2 % (0.0-0.5); Lymphocytes Percent Auto 33.1 % (20.5-60.0); Mean Corpuscular HGB Conc 32.6 g/dL (29.9-35.2); Mean Corpuscular Hemoglobin 30.2 pg (26.7-34.0); Mean Corpuscular Volume 92.9 fL (81.0-99.0); Mean Platelet Volume 9.8 fL (9.5-13.5); Monocytes Absolute Auto 0.5 10^3/uL (0.3-0.8); Monocytes Percent Auto 7.8 % (1.7-12.0); Neutrophils Absolute Auto 3.3 10^3/uL (1.4-6.5); Neutrophils Percent Auto 56.6 % (43.0-75.0); Platelet Count 292 10^3/uL (150-450); Red Blood Count 4.63 10^6/uL (4.20-5.40); Red Cell Distribution Width 13.1 % (11.0-15.0); White Blood Count 5.9 10^3/uL (4.0-11.0)
[2023-04-21 10:29] LABS: Estimated Average Glucose 111 mg/dL; Glycohemoglobin A1C 5.5 % (4.5-6.2)
[2023-04-21 10:38] LABS: Alanine Aminotransferase 57 U/L (14-59); Albumin Globulin Ratio 0.9; Albumin Level 3.6 g/dL (3.4-5.0); Alkaline Phosphatase 83 U/L (46-116); Anion Gap 10.8; Aspartate Amino Transferase 33 U/L (15-37); BUN Creatinine Ratio 13.8; Bilirubin Total 0.7 mg/dL (0.2-1.0); Calcium 9.3 mg/dL (8.5-10.1); Carbon Dioxide 31.2 mmol/L (21.0-32.0); Chloride 104 mmol/L (98-107); Chol HDL Ratio 1.9; Cholesterol 139 mg/dL (<=200); Estimated GFR (African America >60 (>=60); Estimated GFR (Non-African Ame >60 (>=60); Free T3 2.87 pg/mL (2.18-3.98); Globulin 3.8 g/dL; Glucose 103 mg/dL (74-106); HDL Cholesterol 72 mg/dL (40-60); Sodium 142 mmol/L (136-145); Thyroid Stimulating Hormone 1.547 uIU/mL (0.358-3.740); Total Protein 7.4 g/dL (6.4-8.2); Triglycerides 69 mg/dL (<=150); VLDL CHOLESTEROL 13.8 mg/dL
== END 2023-04-21 09:29 | disposition home or self-care (01) ==
LOC: LAB 09:32
PROVIDERS: PCP Family Medicine; Visit Provider Family Medicine
DX: J44.9 Chronic obstructive pulmonary disease, unspecified (principal); I87.2 Venous insufficiency (chronic) (peripheral); E78.5 Hyperlipidemia, unspecified; R73.09 Other abnormal glucose; D64.9 Anemia, unspecified; E55.9 Vitamin D deficiency, unspecified
CPT/HCPCS: 36415; 80053; 80061; 82306; 83036; 83540; 84436; 84443; 84481; 85025

== ENCOUNTER 2023-05-05 00:54 | Outpatient (RCR) | payer MEDICARE, OTHER, SELFPAY | END 2023-06-02 17:30 | disposition home or self-care (01) | LOC: MM 00:54 | PROVIDERS: PCP Family Medicine; Visit Provider Internal Medicine | DX: Z51.81 Encounter for therapeutic drug level monitoring (principal); Z79.01 Long term (current) use of anticoagulants; I26.99 Other pulmonary embolism without acute cor pulmonale | CPT/HCPCS: 85610; G0463 ==

== ENCOUNTER 2023-05-17 13:47 | Outpatient (OUT) | payer MEDICARE, OTHER, SELFPAY ==
--- NOTE | 2023-05-17 | XR_ITS ---
The [address] [address] Patient Name: DEYVI BROTHERS MRN: [id number] date: 1950 Sex: F Assigned Patient Location: [facility] Current Patient Location: [facility] Accession/Order Number: [id number] Exam Date: 05/17/2023 13:52 Report Date: 05/17/2023 15:38 At the request of: RAY CHERY Procedure: XR foot LT min 3V PROCEDURE: XR foot LT min 3V COMPARISON: 03/08/2023 HISTORY: LEFT FOOT PAIN FINDINGS: BONES:Stable spacer and fusion first metatarsal-phalangeal joint with a plate and screws. Remote osteotomy and screw placement at of the second metatarsal. Remote resection head of the second and third proximal phalanges. No acute fracture, dislocation or mechanical failure. Moderate enthesopathic spurring of the calcaneus at the Achilles and plantar insertions. Moderate degenerative changes with joint space narrowing and marginal osteophyte formation SOFT TISSUES:Negative. No visible soft tissue swelling. EFFUSION:None visible. OTHER: Negative. XR/XR foot LT min 3V IMPRESSION: Stable postsurgical and degenerative changes Electronically authenticated by: VENANCIO SAUCEDO Date: 05/17/2023 15:38
--- OUTSIDE RECORDS SUMMARY | 2023-05-17 14:06 | XMS_ITS | CCD ---
Author Name Unknown Address [address] [place] [address] Organization [facility] Care Team Providers Care Chart Computer Name Role Phone Demarco Hess Unavailable Unavailable Family Physician Unavailable Unavailable Hilda vailable Family Physician Unavailable Unavailable Hilda vailable DOMENICO, EMELY Unavailable Unavailable DOMENICO, EMELY Unavailable Unavailable JIA, MARIO Unavailable Unavailable IJA, MARIO Unavailable Unavailable DOMENICO, EMELY Unavailable Unavailable [...] Provider MD Kenyetta Reynolds Primary Care Provider [phone] Kenyetta Reynolds MD Primary Care Provider [id number] Kenyetta Reynolds MD Primary Care Provider [phone] IRAM, COVARRUBIAS H Attending Unavailable FAWWAD, COVARRUBIAS [...] COVARRUBIAS H Admitting Unavailable HOY ., DR UKMARI Primary Care Unavailable KRISHNA ., MR DINO [...] Provider MD Kenyetta Reynolds Primary Care Provider [phone] Christian Steiner Consulting Unavailable Kacie Garay Admitting Unavailable Kacie Garay Attending Unavailable Kenyetta Reynolds Primary Care Unavailable Allergies Allergy Classification Reported Allergen(s) Allergy Type Date of Onset Reaction(s) Facility (4 sources) Sulfonamides (Antibiotic); 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: [SULFA (SULFONAMIDE ANTIBIOTICS)] Drug Allergy 02-22-2019 Unknown [facility] (1 source) Sulfonamides (Antibiotic) Drug allergy (disorder) 10-08-2014 [facility] (1 source) Sulfonamides (Antibiotic) Drug allergy (disorder) 01-21-2023 [facility] Medications Current Medications Medication Drug Class(es) [...] Oral Daily July 19, 2018 10:42am 07-19-2018 [facility] ([id number]) fluticasone propionate 0.05 mg/actuat metered dose nasal [...] Twice daily March 25, 2017 10:57am 03-25-2017 [facility] ([id number]) magnesium oxide 250 mg oral tablet (5 sources) Start: take 250 mg by mouth once daily Magnesium Oxide Active 250 MG PO Daily January 05, 2017 12:00am Comment on above: Magnesium Oxide Magn esium Oxide Active 250 MG Oral Daily January 05, 2017 3:53pm 01-05-2017 [facility] ([id number]) montelukast 10 mg oral tablet (5 sources) [...] puff(s) by inhalation every twenty-four hours Tiotropium [place] (Spiriva Respimat) 2.5 mcg/actuation Mist Active 2 [...] 3 01-21-2022 Episodic Other aftercare (1 source) 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; 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: [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 CASER CURRNT USE ANTICOAGULANTS] Onset: 3 Episodic Other [...] sources) Long-term current use of anticoagulant; 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: [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] Onset: 02-02-2019 07-05-2022 Episodic Other aftercare (2 sources) Long-term current use of drug therapy; 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: [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] Onset: 03-22-2022 07-05-2022 Episodic Other aftercare (1 source) 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; 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: [OTH [facility] CURRENT DRUG THERAPY] Onset: 03-22-2022 Episodic Other [...] 07-05-2022 Episodic Unclassified (1 source) HEALTH MAINTENANCE 07235 Z00.00 Onset: 01-28-2017 Results Test Name Value Interpretation Reference Range Facil ity MM screening mammo LT w/CADo n 01-20-2023 MM screening mammo LT w/CAD [facility] [address] Mammography Report Signed Patient: Myla Brothers MR#: [id number] : 1950 Acct:[id number] Age/Sex: 72 / F ADM Date: 01/20/23 Loc: XT Room: Type: [facility] Attending Dr: Kacie Garay MD Copies [...] Luciana Busby M.D.01/20/2023 1:16 PM Dictation Location: [facility] Transcribed By: [facility] 01/20/23 1316 Dictated By: Luciana Busby MD 01/20/23 1310 Signed By: 01/20/23 1316 [facility] MRI WRIST RT WO CONon 2022 MRI [...] DINO GREGORY Date: 2022-06-20 13:14 Normal [facility] INSULINon 04-29-2022 Insulin 15.6 uIU/mL Normal 2.6-24.9 [facility] Comment on above: Performed By: #### I NSULIN #### [facility] [address] [place] [address] Dr. Marizol Macedo CBC AUTO DIFFon 04-28-2022 BASO # 0.0 103/ul Normal 0.0-0.1 [facility] Comment on above: Performed By: #### C BC #### [facility] [address] [place] [address] Dr. Marizol Macedo Basophils/100 WBC (Bld) 0.3 % Normal 0.2-2.0 [facility] Comment on above: Performed By: #### C BC #### [facility] [address] [place] [address] Dr. Marizol Macedo EO # 0.1 103/ul Normal 0.0-0.7 [facility] Comment on above: Performed By: #### C BC #### [facility] [address] [place] [address] Dr. Marizol Macedo Eosinophils/100 WBC (Bld) 1.0 % Normal 0.9-7.0 [facility] Comment on above: Performed By: #### C BC #### [facility] [address] [place] [address] Dr. Marizol Macedo Erythrocyte distribution width (RBC) [Ratio] 12.6 % Normal 11.0-15.0 [facility] Comment on above: Performed By: #### C BC #### [facility] [address] [place] [address] Dr. Marizol Macedo Hematocrit (Bld) [Volume fraction] 43.4 % Normal 36.0-48.0 [facility] Comment on above: Performed By: #### C BC #### [facility] [address] [place] [address] Dr. Marizol Macedo Hemoglobin (Bld) [Mass/Vol] 14.1 g/dL Normal 12.0-16.0 [facility] Comment on above: Performed By: #### C BC #### [facility] [address] [place] [address] Dr. Marizol Macedo IG # 0.02 10e3/ul Normal 0.00-0.03 [facility] Comment on above: Performed By: #### C BC #### [facility] [address] [place] [address] Dr. Marizol Macedo IG % 0.3 % Normal 0.0-0.5 [facility] Comment on above: Performed By: #### C BC #### [facility] [address] [place] [address] Dr. Marizol Macedo LYMPH # 2.4 103/ul Normal 1.2-3.8 [facility] Comment on above: Performed By: #### C BC #### [facility] [address] [place] [address] Dr. Marizol Macedo Lymphocytes/100 WBC (Bld) 30.9 % Normal 20.5-60.0 [facility] Comment on above: Performed By: #### C BC #### [facility] [address] [place] [address] Dr. Marizol Macedo MANUAL DIFF REQ NO Normal [facility] Comment on above: Performed By: #### C BC #### [facility] [address] [place] [address] Dr. Marizol Macedo MCH (RBC) [Entitic mass] 30.7 pg Normal 26.7-34.0 [facility] Comment on above: Performed By: #### C BC #### [facility] [address] [place] [address] Dr. Marizol Macedo MCHC (RBC) [Mass/Vol] 32.5 g/dL Normal 29.9-35.2 [facility] Comment on above: Performed By: #### C BC #### [facility] [address] [place] [address] Dr. Marizol Macedo MCV (RBC) [Entitic vol] 94.3 fL Normal 81.0-99.0 [facility] Comment on above: Performed By: #### C BC #### [facility] [address] [place] [address] Dr. Marizol Macedo MONO # 0.4 103/ul Normal 0.3-0.8 [facility] Comment on above: Performed By: #### C BC #### [facility] [address] [place] [address] Dr. Marizol Macedo Monocytes/100 WBC (Bld) 5.4 % Normal 1.7-12.0 [facility] Comment on above: Performed By: #### C BC #### [facility] [address] [place] [address] Dr. Marizol Macedo NEUT # 4.9 103/ul Normal 1.4-6.5 [facility] Comment on above: Performed By: #### C BC #### [facility] [address] [place] [address] Dr. Marizol Macedo Neutrophils/100 WBC (Bld) 62.1 % Normal 43.0-75.0 [facility] Comment on above: Performed By: #### C BC #### [facility] [address] [place] [address] Dr. Marizol Macedo Platelet mean volume (Bld) [Entitic vol] 10.2 fL Normal 9.5-13.5 [facility] Comment on above: Performed By: #### C BC #### [facility] [address] [place] [address] Dr. Marizol Macedo PLT 279 103/ul Normal 150-450 [facility] Comment on above: Performed By: #### C BC #### [facility] [address] [place] [address] Dr. Marizol Macedo RBC 4.60 106/ul Normal 4.20-5.40 [facility] Comment on above: Performed By: #### C BC #### [facility] [address] [place] [address] Dr. Marizol Macedo WBC 7.8 103/ul Normal 4.0-11.0 [facility] Comment on above: Performed By: #### C BC #### [facility] [address] [place] [address] Dr. Marizol Macedo FREE THYROXINE INDEX T7on FTI 3.50 Normal 1.30-4.50 [facility] Comment on above: Performed By: #### L IPID, T7, CMP, TSH #### [facility] [address] [place] [address] Dr. Marizol Macedo T3U 35.0 % Normal 30.0-39.0 [facility] Comment on above: Performed By: #### L IPID, T7, CMP, TSH #### [facility] [address] [address] [address] Marizol Macedo T4 [Mass/Vol] 10.00 ug/dL Normal 4.80-13.90 [facility] Comment on above: Performed By: #### L IPID, T7, CMP, TSH #### [facility] [address] [address] [address] Marizol Macedo GLYCOHEMOGLOBIN A1Con 2022 ADA RECOMMENDATION SEE BELOW Normal [facility] Comment on above: Result Comment: ADA RECOMMENDED LIMIT 4.0 - 6.0 ADA THERAPEUTIC TARGET < 7.0 ACTION SUGGESTED > 7.0 Performed By: #### A 1C #### [facility] [address] [place] [address] Dr. Marizol Macedo Glucose [Mass/Vol] 114 mg/dL Normal [facility] Comment on above: Performed By: #### A 1C #### [facility] [address] [place] [address] Dr. Marizol Macedo HbA1c (Bld) [Mass fraction] 5.6 % Normal 4.5-6.2 [facility] Comment on above: Performed By: #### A 1C #### [facility] [address] [place] [address] Dr. Marizol Macedo IRONon 04-28-2022 Iron [Mass/Vol] 136.0 ug/dL Normal 50.0-170.0 [facility] Comment on above: Performed By: #### I CECELIA #### [facility] [address] [place] [address] Dr. Marizol Macedo LIPID PROFILEon 04-28-2022 CHOL-HDL RATIO NORM SEE BELOW Normal [facility] Comment on above: Result Comment: 3.3 - 4.4 LOW RISK 4.4 - 7.1 AVERAGE RISK 7.1 - 11.0 MODERATE RISK >11.0 HIGH RISK Performed By: #### L IPID, T7, CMP, TSH #### [facility] [address] [place] [address] Dr. Marizol Macedo Cholesterol [Mass/Vol] 134 mg/dL Normal <=200 [facility] Comment on above: Performed By: #### L IPID, T7, CMP, TSH #### [facility] [address] [address] [address] Marizol Macedo Cholesterol in HDL [Mass/Vol] 69 mg/dL Critically high 40-60 [facility] Comment on above: Performed By: #### L IPID, T7, CMP, TSH #### [facility] [address] [address] [address] Marizol Macedo Cholesterol in LDL [Mass/Vol] 46.6 mg/dL Normal [facility] Comment on above: Performed By: #### L IPID, T7, CMP, TSH #### [facility] [address] [address] [address] Marizol Macedo Cholesterol.total/Cho lesterol in HDL [Mass ratio] 1.9 {ratio} Normal [facility] Comment on above: Performed By: #### L IPID, T7, CMP, TSH #### [facility] [address] [address] [address] Marizol Macedo HDL NORMAL > or = 60 mg/dl - LOW CARDIOVASCULAR RISK <40 mg/dl - HIGH CARDIOVASCULAR RISK Normal [facility] Comment on above: Performed By: #### L IPID, T7, CMP, TSH #### [facility] [address] [address] [address] Marizol Macedo LDL CALC NORMAL SEE BELOW Normal [facility] Comment on above: Result Comment: <100 mg/dl OPTIMAL 100 - 129 mg/dl NEAR OR ABOVE OPTIMAL 130 - 159 mg/dl BORDERLINE HIGH 160 - 189 mg/dl HIGH >190 mg/dl VERY HIGH Performed By: #### L IPID, T7, CMP, TSH #### [facility] [address] [address] [address] Marizol Macedo Triglyceride [Mass/Vol] 92 mg/dL Normal <=150 [facility] Comment on above: Performed By: #### L IPID, T7, CMP, TSH #### [facility] [address] [address] [address] Marizol Macedo VLDL CALC 18.4 mg/dL Normal [facility] Comment on above: Performed By: #### L IPID, T7, CMP, TSH #### [facility] [address] [address] [address] Marizol Macedo PROF 14(COMP METB)on 023 Albumin [Mass/Vol] 3.9 g/dL Normal 3.4-5.0 [facility] Comment on above: Performed By: #### L IPID, T7, CMP, TSH #### [facility] [address] [place] [address] Dr. Marizol Macedo Albumin/Globulin [Mass ratio] 1.1 {ratio} Normal [facility] Comment on above: Performed By: #### L IPID, T7, CMP, TSH #### [facility] [address] [place] [address] Dr. Marizol Macedo ALP [Catalytic activity/Vol] 97 U/L Normal 46-116 [facility] Comment on above: Performed By: #### L IPID, T7, CMP, TSH #### [facility] [address] [place] [address] Dr. Marizol Macedo ALT [Catalytic activity/Vol] 57 U/L Normal 14-59 [facility] Comment on above: Performed By: #### L IPID, T7, CMP, TSH #### [facility] [address] [address] [address] Marizol Macedo Anion gap [Moles/Vol] 11.9 mmol/L Normal [facility] Comment on above: Performed By: #### L IPID, T7, CMP, TSH #### [facility] [address] [place] [address] Dr. Marizol Macedo AST [Catalytic activity/Vol] 35 U/L Normal 15-37 [facility] Comment on above: Performed By: #### L IPID, T7, CMP, TSH #### [facility] [address] [place] [address] Dr. Marizol Macedo Bilirubin [Mass/Vol] 0.6 mg/dL Normal 0.2-1.0 [facility] Comment on above: Performed By: #### L IPID, T7, CMP, TSH #### [facility] [address] [address] [address] Marizol Macedo Calcium [Mass/Vol] 9.8 mg/dL Normal 8.5-10.1 [facility] Comment on above: Performed By: #### L IPID, T7, CMP, TSH #### [facility] [address] [address] [address] Marizol Macedo Chloride [Moles/Vol] 103 mmol/L Normal 98-107 [facility] Comment on above: Performed By: #### L IPID, T7, CMP, TSH #### [facility] [address] [place] [address] Dr. Marizol Macedo CO2 [Moles/Vol] 28.0 mmol/L Normal 21.0-32.0 [facility] Comment on above: Performed By: #### L IPID, T7, CMP, TSH #### [facility] [address] [place] [address] Dr. Marizol Macedo Creatinine [Mass/Vol] 0.75 mg/dL Normal 0.55-1.02 [facility] Comment on above: Performed By: #### L IPID, T7, CMP, TSH #### [facility] [address] [place] [address] Dr. Marizol Macedo EGFR-AF [place]ONG [place]ER >60 Normal >=60 [facility] Comment on above: Performed By: #### L IPID, T7, CMP, TSH #### [facility] [address] [place] [address] Dr. Marizol Macedo EGFR-NON AF [place] >60 Normal >=60 [facility] Comment on above: Performed By: #### L IPID, T7, CMP, TSH #### [facility] [address] [place] [address] Dr. Marizol Macedo Globulin (S) [Mass/Vol] 3.5 g/dL Normal [facility] Comment on above: Performed By: #### L IPID, T7, CMP, TSH #### [facility] [address] [place] [address] Dr. Marizol Macedo Glucose [Mass/Vol] 91 mg/dL Normal 74-106 [facility] Comment on above: Performed By: #### L IPID, T7, CMP, TSH #### [facility] [address] [address] [address] Marizol Macedo Potassium [Moles/Vol] 3.9 mmol/L Normal 3.5-5.1 [facility] Comment on above: Performed By: #### L IPID, T7, CMP, TSH #### [facility] [address] [place] [address] Dr. Marizol Macedo Protein [Mass/Vol] 7.4 g/dL Normal 6.4-8.2 [facility] Comment on above: Performed By: #### L IPID, T7, CMP, TSH #### [facility] [address] [place] [address] Dr. Marizol Macedo Sodium [Moles/Vol] 139 mmol/L Normal 136-145 [facility] Comment on above: Performed By: #### L IPID, T7, CMP, TSH #### [facility] [address] [place] [address] Dr. Marizol Macedo Urea nitrogen [Mass/Vol] 13.0 mg/dL Normal 7.0-18.0 [facility] Comment on above: Performed By: #### L IPID, T7, CMP, TSH #### [facility] [address] [place] [address] Dr. Marizol Macedo Urea nitrogen/Creatinine [Mass ratio] 17.3 mg/mg Normal [facility] Comment on above: Performed By: #### L IPID, T7, CMP, TSH #### [facility] [address] [place] [address] Dr. Marizol Macedo TSHon 04-28-2022 TSH 1.306 uIU/mL Normal 0.358-3.740 [facility] Comment on above: Performed By: #### L IPID, T7, CMP, TSH #### [facility] [address] [place] [address] Dr. Marizol Watson 03-09-2022 CNPN Telephone (OPHTLN) ---- MYLA BROTHERS ([id number]) 1950 F Date Time Provider Department 03/09/22 [...] Oral Daily January 05, 2017 3:53pm 01-05-2017 [facility] ([id number]) - Flaxseed Oil 1,000 mg cap Linseed Oil Flaxseed Oil Active 1000 MG Oral Twice daily March 25, 2017 10:57am 03-25-2017 [facility] (68231) - Cholecalciferol, Vitamin D3, 25 mcg (1,000 unit) cap Cholecalciferol Cholecalciferol (Vitamin D3) Active 1000 UNIT Oral Daily July 19, 2018 10:42am 07-19-2018 [facility] ([id number]) - prednisoLONE acetate (PRED FORTE) 1 % [...] 1 mg q 24 HR. - gluc kogn/chondro kong A/vit C/Mn (GLUCOSAMINE 1500 COMPLEX ORAL) [...] (anterior basement membrane dystrophy) [H1*02/22/2019 [facility] cancer ([facility]) [C50.919] COPD (chronic obstructive pulmonary disease) (H* Pulmonary embolism (HCC) [I26.99] PCO (posterior capsular opacification), bilater*09/18/2019 Pseudophakia of both eyes [Z96.1] 09/18/2019 Encounter Status:Closed by NIDA STOCKTON on 03/11/22 Normal [facility] CBC W/DIFFon 09-28-2017 ABS BASOPHILS 0.0 10*3/uL Normal 0.0-0.2 [facility] Comment on above: Performed By: #### 4 180, 57712 ####[facility].[address] ABS IMM GRANS 0.0 10*3/uL Normal 0.0-0.2 [facility] Comment on above: Performed By: #### 4 180, 33134 ####[facility].[address] ABS NEUTROPHILS 2.8 10*3/uL Normal 1.6-7.6 [facility] Comment on above: Performed By: #### 4 180, 54129 ####[facility].[address] Basophils Auto #/vol (Bld) 0.5 % Normal 0.0-1.[address] [facility] Comment on above: Performed By: #### 4 180, 54840 ####[facility].[address] Eosinophils Auto #/vol (Bld) 0.1 10*3/uL Normal 0.0-0.[address] [facility] Comment on above: Performed By: #### 4 180, 80110 ####[facility].[address] Eosinophils/100 WBC Auto (Bld) 2.3 % Normal 0.0-6.[address] [facility] Comment on above: Performed By: #### 4 180, 52187 ####[facility].[address] Erythrocyte distribution width Auto Ratio (RBC) 12.9 % Normal 11.5-15.[address] [facility] Comment on above: Performed By: #### 4 1801, 87543 ####[facility] [facility].[address] Hematocrit Auto Volume Fraction (Bld) 42.9 % Normal 36.0-45.0 [facility] Comment on above: Performed By: #### 4 1801, [address]494 ####[place] [address] [facility].[address] Hemoglobin mass conc (Bld) 14.1 g/dL Normal 12.0-15.[address] [facility] Comment on above: Performed By: #### 4 1801, 62797 ####[place] [address] [facility].[address] IMMATURE GRANS 0.3 % Normal 0.0-1.0 [facility] Comment on above: Performed By: #### 4 1801, 77938 ####[place] [address] [facility].[address] Lymphocytes Auto #/vol (Bld) 2.4 10*3/uL Normal 1.2-4.[address] [facility] Comment on above: Performed By: #### 4 180, 62549 ####[facility].[address] Lymphocytes/100 WBC Auto (Bld) 39.5 % Normal 20.0-45.[address] [facility] Comment on above: Performed By: #### 4 180, 11786 ####[facility] MCH Auto Entitic mass (RBC) 30.3 pg Normal 27.0-33.[address] [facility] Comment on above: Performed By: #### 4 180, 79418 ####[facility] MCHC Auto mass conc (RBC) 32.9 g/dL Normal 32.0-35.[address] [facility] Comment on above: Performed By: #### 4 1801, 54509 ####[facility] [facility] MCV Auto Entitic volume (RBC) 92.3 fL Normal 82.0-98.[address] [facility] Comment on above: Performed By: #### 4 1801, 16948 ####[facility] [facility] Monocytes Auto #/vol (Bld) 0.7 10*3/uL Normal 0.1-1.[address] [facility] Comment on above: Performed By: #### 4 1801, 01485 ####[facility] [facility].[address] MONOS 11.2 % Normal 5.0-12.[address] [facility] Comment on above: Performed By: #### 4 1801, 97865 ####[facility] [facility].[address] Neutrophils/100 WBC Auto (Bld) 46.2 % Normal 40.0-72.[address] [facility] Comment on above: Performed By: #### 4 180, 26735 ####[facility] Nucleated RBC/100 WBC Ratio (Bld) 0 % Normal 0-[address] [facility] Comment on above: Performed By: #### 4 180, 42162 ####[facility] [facility] [place] [address], [facility] PLAT CNT 263 10*3/uL Normal 150-400 [facility] Comment on above: Performed By: #### 4 180, 69169 ####[facility] [facility] [place] [address], [facility] RBC Auto #/vol (Bld) 4.65 10*6/uL Normal 3.80-5.[address] [facility] Comment on above: Performed By: #### 4 1801, 32100 ####[facility] [facility] [place] [address], [facility] WBC Auto #/vol (Bld) 6.07 10*3/uL Normal 4.00-10.[address] [facility] Comment on above: Performed By: #### 4 1801, 86884 ####[facility] [facility].[address] COMP METABOLIC PANELon 09-28 Albumin mass conc 4.1 g/dL Normal 3.5-5.7 [facility] Comment on above: Performed By: #### 4 1801, 15723 ####[facility] [facility] [place] [address], [facility] ALKALINE PHOSPH 73 IU/L Normal 34-104 [facility] Comment on above: Performed By: #### 4 1801, 85318 ####[facility] [facility].[address] ALT enzyme act/vol 54 U/L High 7-52 [facility] Comment on above: Performed By: #### 4 1801, 21020 ####[facility] [place] [address], [facility] AST enzyme act/vol 40 U/L High 13-39 The [facility] Comment on above: Performed By: #### 4 180, 63640 ####[facility] [place] [address], [place] Bilirubin mass conc 0.4 mg/dL Normal 0.3-1.0 The [facility] Comment on above: Performed By: #### 4 180, 27571 ####[facility] [place] [address], [place] Calcium mass conc 9.7 mg/dL Normal 8.6-10.3 [facility] Comment on above: Performed By: #### 4 180, 58213 ####[facility] [place] [address], [place] Chloride molar conc 103 mmol/L Normal 98-107 The [facility] Comment on above: Performed By: #### 4 180, 06061 ####[facility] [place] [address], [place] CO2 molar conc 28 mmol/L Normal 21-31 The [facility] Comment on above: Performed By: #### 4 180, 87326 ####[facility] [place] [address], [place] Creatinine mass conc 0.81 mg/dL Normal 0.60-1.20 [facility] Comment on above: Performed By: #### 4 180, 85103 ####[facility] [place] [address], [place] GFR/1.73 sq M predicted among blacks MDRD vol rate/area (S/P/Bld) mL/min/{1.73_m2} Normal >60 The [facility] Comment on above: Performed By: #### 4 180, 34319 ####[facility] [place] [address], [place] GFR/1.73 sq M predicted among non-blacks MDRD vol rate/area (S/P/Bld) mL/min/{1.73_m2} Normal >60 The [facility] Comment on above: Performed By: #### 4 180, 78068 ####[facility] [place] [address], [place] Glucose mass conc 95 mg/dL Normal 70-100 The [facility] Comment on above: Performed By: #### 4 180, 27364 ####[facility] [place] [address], [place] Potassium molar conc 4.4 mmol/L Normal 3.5-5.[address] [facility] Comment on above: Performed By: #### 4 180, 54387 ####[facility] [place] [address], [facility] Protein mass conc 7.2 g/dL Normal 6.0-8.3 The [facility] Comment on above: Performed By: #### 4 180, 47685 ####[facility] [place] [address], [facility] Sodium molar conc 139 mmol/L Normal 136-145 The [facility] Comment on above: Performed By: #### 4 180, 17923 ####[facility] [place] [address], [place] Urea nitrogen mass conc 19 mg/dL Normal 7-[address] [facility] Comment on above: Performed By: #### 4 180, 56456 ####[facility] [place] [address], [place] Glucose Glucometer (BldC) [M ass/Vol]on 08-17-2017 Glucose [Mass/Vol] 99 mg/dL [facility] Comment on above: Random Glucose Refer ence Range is dependent on time and content of last meal. Glucose of more than 200 mg/dL in a nonstressed, ambulatory subject supports the diagnosis of Diabetes Mellitus. CBC W/DIFFon 03-31-2017 Basophils Auto #/vol (Bld) 0.3 % Normal 0.0-2.[address] [facility] Comment on above: Performed By: #### 4 180, 87559 ####[facility] [place] [address], [facility] Eosinophils/100 WBC Auto (Bld) 2.1 % Normal 0.0-5.[address] [facility] Comment on above: Performed By: #### 4 180, 63740 ####[facility] Erythrocyte distribution width Auto Ratio (RBC) 13.0 % Normal 11.5-16.[address] [facility] Comment on above: Performed By: #### 4 180, 95730 ####[facility] [facility] Hematocrit Auto Volume Fraction (Bld) 42.6 % Normal 36.0-48.0 The [facility] Comment on above: Performed By: #### 4 180, 13566 ####[facility] [facility].[address] Hemoglobin mass conc (Bld) 14.3 g/dL Normal 12.0-15.[address] [facility] Comment on above: Performed By: #### 4 180, 01583 ####[facility] Lymphocytes/100 WBC Auto (Bld) 29.7 % Normal 20.0-40.[address] [facility] Comment on above: Performed By: #### 4 180, 76108 ####[facility] MCH Auto Entitic mass (RBC) 30.7 pg Normal 24.0-32.[address] [facility] Comment on above: Performed By: #### 4 180, 95328 ####[facility] MCHC Auto mass conc (RBC) 33.7 g/dL Normal 32.0-36.0 [facility] Comment on above: Performed By: #### 4 180, 16845 ####[facility] MCV Auto Entitic volume (RBC) 91.2 fL Normal 80.0-100.[address] [facility] Comment on above: Performed By: #### 4 180, 67221 ####[facility] METHOD Normal RBC Morphology Normal The [facility] Comment on above: Performed By: #### 4 180, 60544 ####[facility] MONOS 6.4 % Normal 2-[address] [facility] Comment on above: Performed By: #### 4 180, 37215 ####[facility] Neutrophils/100 WBC Auto (Bld) 61.5 % Normal 50-[address] [facility] Comment on above: Performed By: #### 4 180, 13135 ####[facility] [place] [address], [facility] PLAT CNT 261 Thou/mm3 Normal 100-400 The [facility] Comment on above: Performed By: #### 4 180, 58532 ####[facility] RBC Auto #/vol (Bld) 4.67 mill/mm3 Normal 3.50-5.[address] [facility] Comment on above: Performed By: #### 4 180, 00557 ####[facility] WBC Auto #/vol (Bld) 6.6 Thou/mm3 Normal 4.0-10.[address] [facility] Comment on above: Performed By: #### 4 180, 58451 ####[facility] [place] [address], [facility] COMP METABOLIC PANELon 03-31 Albumin mass conc 4.0 g/dL Normal 3.5-5.7 The [facility] Comment on above: Performed By: #### 4 180, 84415 ####[facility] [place] [address], [facility] ALKALINE PHOSPH 73 IU/L Normal 34-104 [facility] Comment on above: Performed By: #### 4 180, 85771 ####[facility] [place] [address], [facility] ALT enzyme act/vol 49 U/L Normal 7-52 The [facility] Comment on above: Performed By: #### 4 1801, 88890 ####[facility] [place] [address], [facility] AST enzyme act/vol 34 U/L Normal 13-39 The [facility] Comment on above: Performed By: #### 4 180, 88544 ####[facility] [place] [address], [facility] Bilirubin mass conc 0.3 mg/dL Normal 0.3-1.0 [facility] Comment on above: Performed By: #### 4 180, 33108 ####[facility] [place] [address], [facility] Calcium mass conc 10.0 mg/dL Normal 8.6-10.3 The [facility] Comment on above: Performed By: #### 4 180, 66735 ####[facility] [place] [address], [place] Chloride molar conc 103 mmol/L Normal 98-107 [facility] Comment on above: Performed By: #### 4 180, 34061 ####[facility] [place] [address], [place] CO2 molar conc 29 mmol/L Normal 21-31 The [facility] Comment on above: Performed By: #### 4 180, 23308 ####[facility] [place] [address], [place] Creatinine mass conc 0.86 mg/dL Normal 0.60-1.[address] [facility] Comment on above: Performed By: #### 4 180, 26458 ####[facility] [place] [address], [place] GFR/1.73 sq M predicted among blacks MDRD vol rate/area (S/P/Bld) mL/min/{1.73_m2} Normal >60 The [facility] Comment on above: Performed By: #### 4 180, 40088 ####[facility] [place] [address], [place] GFR/1.73 sq M predicted among non-blacks MDRD vol rate/area (S/P/Bld) mL/min/{1.73_m2} Normal >60 The [facility] Comment on above: Performed By: #### 4 180, 14774 ####[facility] [place] [address], [place] Glucose mass conc 86 mg/dL Normal 70-100 The [facility] Comment on above: Performed By: #### 4 180, 64179 ####[facility] [place] [address], [place] Potassium molar conc 4.1 mmol/L Normal 3.5-5.[address] [facility] Comment on above: Performed By: #### 4 1802, 41340 ####[facility] [facility].[address] Protein mass conc 7.0 g/dL Normal 6.0-8.3 The [facility] Comment on above: Performed By: #### 4 1802, 88872 ####[facility] [facility].[address] Sodium molar conc 138 mmol/L Normal 136-145 The [facility] Comment on above: Performed By: #### 4 1802, 77835 ####[facility] Urea nitrogen mass conc 14 mg/dL Normal 7-[address] [facility] Comment on above: Performed By: #### 4 1802, 32172 ####[facility] ANAon 02-10-2017 HELENE SCREEN <1:40 Normal <1:40,1:[address] [facility] Comment on above: Performed By: #### 1 0008 ####[facility] ANCA IGG WITH REFLEX [id number] on 02-10-2017 ANCA <1:20 Normal <1:[address] [facility] Comment on above: Result Comment: The ANCA IFA is <1:20; therefore, no further testing willbe performed.INTERPRETIVE INFORMATION: Anti-Neutrophil Cyto Ab, IgGNeutrophil Cytoplasmic Antibodies (C-ANCA = granularcytoplasmic staining, P-ANCA = perinuclear staining) arefound in the serum of over 90 percent of patients withcertain necrotizing systemic vasculitides, and usually inless than 5 percent of patients with collagen vasculardisease or arthritis.Performed by [facility],[address] [place] [id number] jkq.[employer], Onel Connelly MD - Lab. Director ANTI DNAon 02-10-2017 ANTI DNA <1:10 Normal <1:[address] [facility] Comment on above: Performed By: #### 1 0008 ####[facility] [facility] [place] [address], [facility] ANTI-BETA 2 GLYCOPROTEIN 1on 02-10-2017 ANTI B2GP1 IGA 9.3 a units Normal 0.0-19.9 The [facility] Comment on above: Performed By: #### 1 0008 ####[facility] [place] [address], [facility] ANTI B2GP1 IGG 1.1 g units Normal 0.0-19.9 The [facility] Comment on above: Performed By: #### 1 0008 ####[facility] [facility] [place] [address], [facility] ANTI B2GP1 IGM 2.5 m units Normal 0.0-19.9 The [facility] Comment on above: Performed By: #### 1 0008 ####[facility] [facility] [place] [address], [facility] ANTI-ENAon 02-10-2017 ANTI SM Negative Normal NEG,NEGATIVE,Ne g The [facility] Comment on above: Performed By: #### 1 0008 ####[facility] [facility] [place] [address], [facility] ANTI SM/ANTIRNP Negative Normal NEG,NEGATIVE ,Ne g The [facility] Comment on above: Performed By: #### 1 0008 ####[facility] [facility] [place] [address], [place] ANTICARDIOLIPIN ANTIBODYon 1 04-12-2016 CARDIOLIPIN IGA 4.9 APL Normal 0.0-21.9 The [facility] Comment on above: Performed By: #### 1 0008 ####[facility] [place] [address], [facility] CARDIOLIPIN IGG 14.5 GPL Normal 0.0-22.9 The [facility] Comment on above: Performed By: #### 1 0008 ####[facility] [facility].[address] CARDIOLIPIN IGM 9.5 MPL Normal 0.0-10.9 The [facility] Comment on above: Performed By: #### 1 0008 ####[facility] CBC W/DIFFon 02-10-2017 Basophils Auto #/vol (Bld) 0.4 % Normal 0.0-2.[address] [facility] Comment on above: Performed By: #### 5 3 ####[facility] Eosinophils/100 WBC Auto (Bld) 2.5 % Normal 0.0-5.[address] [facility] Comment on above: Performed By: #### 5 0103 ####[facility] Erythrocyte distribution width Auto Ratio (RBC) 14.5 % Normal 11.5-16.[address] [facility] Comment on above: Performed By: #### 5 3 ####[facility] Hematocrit Auto Volume Fraction (Bld) 41.0 % Normal 36.0-48.0 The [facility] Comment on above: Performed By: #### 5 0103 ####[facility] Hemoglobin mass conc (Bld) 13.6 g/dL Normal 12.0-15.[address] [facility] Comment on above: Performed By: #### 5 3 ####[facility] Lymphocytes/100 WBC Auto (Bld) 26.7 % Normal 20.0-40.[address] [facility] Comment on above: Performed By: #### 5 0103 ####[facility] MCH Auto Entitic mass (RBC) 30.5 pg Normal 24.0-32.[address] [facility] Comment on above: Performed By: #### 5 0103 ####[facility] MCHC Auto mass conc (RBC) 33.2 g/dL Normal 32.0-36.[address] [facility] Comment on above: Performed By: #### 5 0103 ####[facility] MCV Auto Entitic volume (RBC) 91.8 fL Normal 80.0-100.[address] [facility] Comment on above: Performed By: #### 5 0103 ####[facility] METHOD Normal RBC Morphology Normal The [facility] Comment on above: Performed By: #### 5 0103 ####[facility] MONOS 6.6 % Normal 2-[address] [facility] Comment on above: Performed By: #### 5 0103 ####[facility] Neutrophils/100 WBC Auto (Bld) 63.8 % Normal 50-[address] [facility] Comment on above: Performed By: #### 5 0103 ####[facility] [place] [address], [facility] PLAT CNT 310 Thou/mm3 Normal 100-400 The [facility] Comment on above: Performed By: #### 5 0103 ####[facility] [facility] [place] [place] [address], [facility] RBC Auto #/vol (Bld) 4.47 mill/mm3 Normal 3.50-5.[address] [facility] Comment on above: Performed By: #### 102 ####[facility] [facility] [place] [place] [address], [facility] WBC Auto #/vol (Bld) 7.6 Thou/mm3 Normal 4.0-10.[address] [facility] Comment on above: Performed By: #### 102 ####[facility] [facility].[address] COMP METABOLIC PANELon 02-10 Albumin mass conc 4.3 g/dL Normal 3.5-5.7 The [facility] Comment on above: Performed By: #### 0 0121 ####[facility] [facility].[address] ALKALINE PHOSPH 89 IU/L Normal 34-104 [facility] Comment on above: Performed By: #### 0 0121 ####[facility] [facility].[address] ALT enzyme act/vol 35 U/L Normal 7-52 The [facility] Comment on above: Performed By: #### 0 0121 ####[facility] [facility].[address] AST enzyme act/vol 27 U/L Normal 13-39 The [facility] Comment on above: Performed By: #### 0 0121 ####[facility] [facility].[address] Bilirubin mass conc 0.4 mg/dL Normal 0.3-1.0 The [facility] Comment on above: Performed By: #### 0 0121 ####[facility] [place] [address], [facility] Calcium mass conc 9.9 mg/dL Normal 8.6-10.3 The [facility] Comment on above: Performed By: #### 0 0121 ####[facility] [place] [address], [place] Chloride molar conc 102 mmol/L Normal 98-107 [facility] Comment on above: Performed By: #### 0 0121 ####[facility] [place] [address], [place] CO2 molar conc 25 mmol/L Normal 21-31 The [facility] Comment on above: Performed By: #### 0 0121 ####[facility] [place] [address], [facility] Creatinine mass conc 0.87 mg/dL Normal 0.60-1.[address] [facility] Comment on above: Performed By: #### 0 0121 ####[facility] [place] [address], [place] GFR/1.73 sq M predicted among blacks MDRD vol rate/area (S/P/Bld) mL/min/{1.73_m2} Normal >60 The [facility] Comment on above: Performed By: #### 0 0121 ####[facility] [place] [address], [place] GFR/1.73 sq M predicted among non-blacks MDRD vol rate/area (S/P/Bld) mL/min/{1.73_m2} Normal >60 The [facility] Comment on above: Performed By: #### 0 0121 ####[facility] [place] [address], [place] Glucose mass conc 99 mg/dL Normal 70-100 The [facility] Comment on above: Performed By: #### 0 0121 ####[facility] [place] [address], [facility] Potassium molar conc 4.1 mmol/L Normal 3.5-5.[address] [facility] Comment on above: Performed By: #### 0 0121 ####[facility] [id number], [facility] Protein mass conc 7.5 g/dL Normal 6.0-8.3 The [facility] Comment on above: Performed By: #### 0 0121 ####[facility] [place] [address], [facility] Sodium molar conc 136 mmol/L Normal 136-145 The [facility] Comment on above: Performed By: #### 0 0121 ####[facility] [place] [address], [facility] Urea nitrogen mass conc 20 mg/dL Normal 7-25 [facility] Comment on above: Performed By: #### 0 0121 ####[facility] [facility] [place] [place] [address], [facility] COMPLEMENT 3on 02-10-2017 COMPLEMENT 3 154 mg/dL High 79-152 The [facility] Comment on above: Performed By: #### 1 0204, 99523, 12160 ####[facility] [place] [address], [facility] COMPLEMENT 4on 02-10-2017 COMPLEMENT 4 34 mg/dL Normal 16-38 The [facility] Comment on above: Performed By: #### 1 0204, 26663, 21946 ####[facility] [facility] [place] [address], [facility] CREATININE URINE RANDOMon CREATININE 138.0 mg/dL Normal The [facility] Comment on above: Result Comment: Ther e are no established reference values for random urine specimens Performed By: #### 4 8132, 33342 ####[facility] [place] [address], [facility] CRYOGLOBULIN ILon 02-10-2017 CRYOGLOBULIN 0 mg/dL Normal 0-10 The [facility] [place] Normal The [facility] CYCLIC CITRULLINATED PEPTIDE AB [id number] 02-10-2017 CYCLIC CIT PEP 6 Units Normal 0-19 The [facility] Comment on above: Result Comment: INTE RPRETIVE [...] results should bemonitored and testing repeated.Performed by [facility],[address] [place], [place] [id number] jjt.[employer], Onel Connelly MD - Lab. Director HEPATITIS B CORE ANTIBODYon 02-10-2017 HEP B CORE AB NONREACTIVE Normal NONREACTIVE The [facility] Comment on above: Performed By: #### 3 9047, 30054, 04392, 86363 ####[facility] [facility] [place] [address], [facility] HEPATITIS B SURFACE ANTIBODY QUANTon 02-10-2017 HEP B SURF AB 0.00 mIU/ml Normal The [facility] Comment on above: Result Comment: INTE RPRETATION:NONREACTIVE<8.00 mIU/mLINDETERMINATE8.00 - 12.00 mIU/mLREACTIVE>12 mIU/mL Performed By: #### 1 0008 ####[facility] [place] [address], [facility] HEPATITIS B SURFACE ANTIGEN QUALon 02-10-2017 HEP B SURF AG QUAL NONREACTIVE Normal NONREACTIVE [facility] Comment on above: Performed By: #### 1 0008 ####[facility] [facility] [place] [address], [facility] HEPATITIS C ANTIBODYon 02-10 ANTI-HCV NONREACTIVE Normal NONREACTIVE The [facility] Comment on above: Performed By: #### 3 1397, 79403, 38379, 67698 ####[facility] [facility] [place] [address], [facility] RHEUMATOID FACTOR SERUMon RA <20 Normal 0-20 [facility] Comment on above: Performed By: #### 1 0204, 24164, 45632 ####[facility] [facility] [place] [place] [address], [facility] SJOGRENS ANTIBODIESon 2016 SS-A Negative Normal NEG,NEGATIVE,Ne g [facility] Comment on above: Performed By: #### 1 0008 ####[place] [id number] [facility] [place] [place] [address], [facility] SS-B Negative Normal NEG,NEGATIVE,Ne g [facility] Comment on above: Performed By: #### 1 0008 ####[facility] [facility] [place] [place] [address], [facility] T PROT UR Adam 02-10-2017 Protein mass conc 29.0 mg/dL Normal The [facility] Comment on above: Result Comment: Ther e are no established reference values for random urine specimens Performed By: #### 4 1802, 26112 ####[facility] [place] [address], [facility] TB QUANTIFERONon 02-10-2017 MITOGEN MINUS NIL >=10 Normal [facility] Comment on above: Performed By: #### 4 1802, 22535 ####[facility] NIL 0.03 IU/mL Normal [facility] Comment on above: Performed By: #### 4 1802, 41346 ####[facility] TB AG MINUS NIL 0.01 IU/mL Normal The [facility] Comment on above: Performed By: #### 4 1802, 98864 ####[place] [id number] [address] TB ANTIGEN 0.04 IU/mL Normal [facility] Comment on above: Performed By: #### 4 1802, [id number] ####[place] [id number] TB QUANTIFERON Negative Normal NEGATIVE [facility] Comment on above: Result Comment: Boy tiferon [...] and LTBI(http://www.cdc.gov/nchstp/tb/). Performed By: #### 4 1802, [id number] ####[facility] URINALYSISon 02-10-2017 APPEARANCE CLOUDY Abnormal CLEAR [facility] Comment on above: Performed By: #### 1 0008 ####[facility] [place] [address], [facility] BACTERIA MOD Abnormal NONE SEEN [facility] Comment on above: Performed By: #### 1 0008 ####[facility] [place] [address], [facility] BILIRUBIN Negative Normal NEGATIVE [facility] Comment on above: Performed By: #### 1 0008 ####[facility] [place] [address], [facility] BLOOD Negative Normal NEGATIVE [facility] Comment on above: Performed By: #### 1 0008 ####[facility]3000 [facility] [place] [address], [facility] COLOR YELLOW Normal YELLOW [facility] Comment on above: Performed By: #### 1 0008 ####[facility] [place] [address], [facility] EPIS MANY Abnormal FEW [facility] Comment on above: Performed By: #### 1 0008 ####[facility] [place] [address], [facility] GLUCOSE Negative Normal NEGATIVE [facility] Comment on above: Performed By: #### 1 0008 ####[facility] INR Coag RelTime (Bld) 0-2 Abnormal 0-[address] [facility] Comment on above: Performed By: #### 1 0008 ####[facility] [place] [address], [facility] KETONE Negative Normal NEGATIVE [facility] Comment on above: Performed By: #### 1 0008 ####[facility], [place] [address] LEUK DIMPLE LARGE Abnormal NEGATIVE [facility] Comment on above: Performed By: #### 1 0008 ####[facility]3000 [facility].[address] MUCUS THREADS OCC Abnormal NONE SEEN The [facility] Comment on above: Performed By: #### 1 0008 ####[facility]3000 [facility] [place] [place] [address], [facility] NITRITE Negative Normal NEGATIVE [facility] Comment on above: Performed By: #### 1 0008 ####[facility]3000 [facility].[address] PH 5.0 Normal 5.0-8.[address] [facility] Comment on above: Performed By: #### 1 0008 ####[facility] Protein mass conc Negative Normal NEGATIVE [facility] Comment on above: Performed By: #### 1 0008 ####[facility]3000 [facility].[address] SPEC GRAV 1.020 Normal 1.015-1.020 [facility] Comment on above: Performed By: #### 1 0008 ####[facility]3000 [facility].[address] WBC UA >100 Abnormal 0-0 [facility] Comment on above: Performed By: #### 1 0008 ####[facility] CYTOLOGY SPECIMENon 02-02-20 CYTOLOGY SPEC Normal [facility] Comment on above: Order Comment: Comme nt: A. PERIESOPHAGEAL LESION FNA - CYTOLYT, 10 SLIDES Result Comment: Note : Specimens received on or after December:* Pathology and Cytology reports are located in [facility] in the folder labeled Medical Record Forms.* Reports are also in the Physician Portal.* Reports will be faxed to phycician's office.* For assistance locating reports call: * Willard Guadarrama [phone] * LAB [phone] Performed By: #### L UHCYTO ####[place] [address] [place] [address] Albumin [Mass/volume] in Ser um or Plasmaon 01-03-2017 Albumin [Mass/Vol] 3.3 g/dL 3.2-5.5 [facility] Basophils Auto (Bld) [#/Vol] on 01-03-2017 Basophils (Bld) [#/Vol] 0.0 10*3/uL 0.0-0.2 [facility] Basophils/100 WBC Auto (Bld) on 01-03-2017 Basophils/100 WBC (Bld) 0.6 % . [facility] Creatinine and Glomerular fi ltration rate.predicted panel (S/P/Bld)on 01-03-2017 Creatinine [Mass/Vol] 1.00 mg/dL 0.44-1.03 [facility] Eosinophils Auto (Bld) [#/Vo l]on 01-03-2017 Eosinophils (Bld) [#/Vol] 0.1 10*3/uL 0.0-0.45 [facility] Eosinophils/100 WBC Auto (Bl d)on 01-03-2017 Eosinophils/100 WBC (Bld) 1.5 % . [facility] Erythrocyte distribution wid th Auto (RBC) [Ratio]on 01-03-2017 Erythrocyte distribution width (RBC) [Ratio] 14.5 % 11.9-15.3 [facility] Estimated glomerular filtrat ion rate (GFR) non- Americanon 01-03-2017 GFR/1.73 sq M.predicted among non-blacks MDRD (S/P/Bld) [Vol rate/Area] 56 mL/min/{1.73_m2} [facility] Globulin Calc (S) [Mass/Vol] on 01-03-2017 Globulin (S) [Mass/Vol] 3.6 g/dL [facility] Hematocrit Auto (Bld) [Volum e fraction]on 01-03-2017 Hematocrit (Bld) [Volume fraction] 36.3 % 34.0-46.4 [facility] Hemoglobin [Mass/volume] in Bloodon 01-03-2017 Hemoglobin (Bld) [Mass/Vol] 12.1 g/dL 11.8-15.4 [facility] Laboratory - Chemistry and C hemistry - challengeon 01-03-2017 GFR/1.73 sq M.predicted among blacks MDRD (S/P/Bld) [Vol rate/Area] mL/min/{1.73_m2} [facility] Comment on above: GFR estimated refere nce range: According to KDOQI guidelines, <60 ml/min/1.73m2 is sufficient to diagnose a patient with chronic kidney disease. Lymphocytes Auto (Bld) [#/Vo l]on 01-03-2017 Lymphocytes (Bld) [#/Vol] 2.1 10*3/uL 1.00-4.8 [facility] Lymphocytes/100 WBC Auto (Bl d)on 01-03-2017 Lymphocytes/100 WBC (Bld) 27.4 % . [facility] MCH Auto (RBC) [Entitic mass ]on 01-03-2017 MCH (RBC) [Entitic mass] 30.8 pg 24.7-34.3 [facility] MCHC Auto (RBC) [Mass/Vol]on 01-03-2017 MCHC (RBC) [Mass/Vol] 33.4 g/dL 32.0-35.0 [facility] MCV Auto (RBC) [Entitic vol] on 01-03-2017 MCV (RBC) [Entitic vol] 92.4 fL 80-100 [facility] Monocytes Auto (Bld) [#/Vol] on 01-03-2017 Monocytes (Bld) [#/Vol] 1.0 10*3/uL 0.0-0.8 [facility] Monocytes/100 WBC Auto (Bld) on 01-03-2017 Monocytes/100 WBC (Bld) 12.7 % . [facility] Neutrophils Auto (Bld) [#/Vo l]on 01-03-2017 Neutrophils (Bld) [#/Vol] 4.4 10*3/uL 1.8-7.7 [facility] Neutrophils/100 WBC Auto (Bl d)on 01-03-2017 Neutrophils/100 WBC (Bld) 57.8 % . [facility] No Panel Informationon 01-03 Pharmacy Creatinine Clearance (Chem N/A [facility] Platelet mean volume Auto (B ld) [Entitic vol]on 01-03-2017 Platelet mean volume (Bld) [Entitic vol] 8.2 fL 6.3-10.7 [facility] Platelets Auto (Bld) [#/Vol] on 01-03-2017 Platelets (Bld) [#/Vol] 429 10*3/uL 150-450 [facility] Protein [Mass/volume] in Ser um or Plasmaon 01-03-2017 Protein [Mass/Vol] 6.9 g/dL 6.1-7.9 [facility] RBC Auto (Bld) [#/Vol]on RBC (Bld) [#/Vol] 3.93 10*6/uL 3.60-5.00 [facility] Serum or plasma alanine briggs otransferase measurement without P-5'-P (enzymatic activion 01-03-2017 ALT No additional P-5'-P [Catalytic activity/Vol] 37 U/L 10-60 [facility] Serum or plasma albumin/glob ulin mass ratioon 01-03-2017 Albumin/Globulin [Mass ratio] 0.9 {ratio} [facility] Serum or plasma alkaline bita sphatase measurement (enzymatic activity/volume)on 01-03-2017 ALP [Catalytic activity/Vol] 89 U/L 32-92 [facility] Serum or plasma aspartate am inotransferase measurement (enzymatic activity/volume)on 01-03-2017 AST [Catalytic activity/Vol] 30 U/L 10-42 [facility] Serum or plasma calcium katheryn urement (mass/volume)on 01-03-2017 Calcium [Mass/Vol] 9.4 mg/dL 8.2-10.2 [facility] Serum or plasma chloride claudia surement (moles/volume)on 01-03-2017 Chloride [Moles/Vol] 98 mmol/L 95-114 [facility] Serum or plasma glucose katheryn urement (mass/volume)on 01-03-2017 Glucose [Mass/Vol] 107 mg/dL 70-100 [facility] Comment on above: ADA recommended refe rence rangeRandom Glucose Reference Range is dependent on time and content of last meal. Glucose of more than 200 mg/dL in a nonstressed, ambulatory subject supports the diagnosis of Diabetes Mellitus. Serum or plasma potassium me asurement (moles/volume)on 01-03-2017 Potassium [Moles/Vol] 4.1 mmol/L 3.5-5.1 [facility] Serum or plasma sodium measu rement (moles/volume)on 01-03-2017 Sodium [Moles/Vol] 139 mmol/L 136-146 [facility] Serum or plasma total biliru bin measurement (mass/volume)on 01-03-2017 Bilirubin [Mass/Vol] 0.3 mg/dL 0.3-1.2 [facility] Serum or plasma total carbon dioxide measurement (moles/volume)on 01-03-2017 CO2 [Moles/Vol] 29.5 mmol/L 22.0-30.0 [facility] Serum or plasma urea nitroge n measurement (mass/volume)on 01-03-2017 Urea nitrogen [Mass/Vol] 12 mg/dL 9-23 [facility] WBC Auto (Bld) [#/Vol]on WBC (Bld) [#/Vol] 7.6 10*3/uL 3.8-11.6 [facility] No Panel Information [facility] Vital Signs Date Time Vital Sign Value Performing Clinician Faci lity 01-21-2023 09:58-0400 Body temperature 97.2 [degF] MD Christian Steiner Work Phone: [facility] 01-21-2023 09:58-0400 Body weight 76.65 kg MD Christian Steiner Work Phone: [facility] 01-21-2023 09:58-0400 Diastolic blood pressure 78 mm[Hg] MD Christian Steiner Work Phone: [facility] 01-21-2023 09:58-0400 Heart rate 71 /min MD Christian Steiner Work Phone: [facility] 01-21-2023 09:58-0400 Respiratory rate 16 /min MD Christian Steiner Work Phone: [facility] 01-21-2023 09:58-0400 SaO2% (BldA) [Mass fraction] 98 % MD Christian Steiner Work Phone: [facility] 01-21-2023 09:58-0400 Systolic blood pressure 141 mm[Hg] MD Christian Steiner Work Phone: [facility] 01-21-2022 10:03-0400 Body height 167.64 cm MD Christian Steiner [facility] 01-21-2022 10:03-0400 Body weight 82.64 kg MD Christian Steiner [facility] 01-21-2022 10:03-0400 Diastolic blood pressure 78 mm[Hg] MD Christian Steiner [facility] 01-21-2022 10:03-0400 Heart rate 98 /min MD Christian Steiner [facility] 01-21-2022 10:03-0400 Respiratory rate 18 /min MD Christian Steiner [facility] 01-21-2022 10:03-0400 SaO2% (BldA) [Mass fraction] 98 % MD Christian Steiner [facility] 01-21-2022 10:03-0400 Systolic blood pressure 122 mm[Hg] MD Christian Steiner [facility] 01-21-2021 10:29-0400 Body temperature 98 [degF] MD Christian Steiner [facility] Encounters Encounter Date Encounter Type Care Provider Facility Start: 01-21-2023 End: 01-21-2023 ambulatory MD Christian Steiner Work Phone: [facility] Work Phone: Start: 01-21-2023 End: 01-21-2023 Registered Recurring MD Christain Steiner Work Phone: [facility] Work Phone: Start: 01-17-2023 End: 01-17-2023 ambulatory ALESHA SCHULTE Facility:[facility] Start: 01-17-2023 End: 01-17-2023 Patient encounter procedure Alesha Schulte MD Work Phone: Ophthalmology Comment on above: Primary open-angle g laucoma, bilateral, mild stage (Primary Dx) Start: 08-02-2022 End: 09-01-2022 ambulatory COVARRUBIAS H FAWWAD Facility:[facility] Start: 07-05-2022 End: 07-05-2022 ambulatory KENYETTA REYNOLDS Facility:[facility] Start: 07-05-2022 End: 07-05-2022 Patient encounter procedure [...] 01-21-2022 End: 01-21-2022 ambulatory MD Christian Steiner [facility] Work Phone: Start: 01-21-2022 End: 01-21-2022 Registered Recurring MD Christian Steiner [facility] Start: 01-03-2022 End: 02-01-2022 ambulatory [...] 09-28-2017 End: 09-29-2017 Patient encounter EMELY DOMENICO Facility:[facility] Start: 08-18-2017 Patient encounter procedure Christian Steiner Facility:[id number] Start: 03-31-2017 End: 04-01-2017 Patient encounter EMELY DOMENICO Facility:[facility] Start: 02-10-2017 End: 02-11-2017 Patient encounter EMELY DOMENICO Facility:[facility] Start: 01-28-2017 Ambulatory Pal Deshawn Facility:[facility] Procedures Date Procedure Procedure Detail Performing Clinician [...] Activity Detail Author Start: 12-03-2022 Influenza vaccination [facility] Start: 04-04-2022 ADVANCE DIRECTIVE DISCUSSION ADVANCE DIRECTIVE DISCUSSION [facility] Start: 04-04-2022 DEPRESSION ASSESSMENT DEPRESSION ASSESSMENT [facility] Start: 12-03-2021 Influenza vaccination INFLUENZA (#1) [facility] Start: 04-04-2021 ADVANCE DIRECTIVE DISCUSSION ADVANCE DIRECTIVE DISCUSSION [facility] Start: 04-04-2021 DEPRESSION ASSESSMENT DEPRESSION ASSESSMENT [facility] Start: 2017 BONE DENSITY BONE DENSITY [facility] Start: 2017 Bone Density Screening Bone Density Screening [facility] Start: 2017 PNEUMOCOCCAL: 65+ (1 - PCV) PNEUMOCOCCAL: 65+ (1 - PCV) [facility] Start: 11-13-2014 SHINGRIX VACCINE (2 of 3) SHINGRIX VACCINE (2 of 3) [facility] Start: 2002 SHINGRIX VACCINE (1 of 2) SHINGRIX VACCINE (1 of 2) [facility] Start: 1997 COLOGUARD (FIT-DNA) COLOGUARD (FIT-DNA) [facility] Start: 1997 Colonoscopy COLONOSCOPY [facility] Start: 1997 COLORECTAL CANCER SCREENING COLORECTAL CANCER SCREENING [facility] Start: [address] COLONOGRAPHY [facility] Start: 1997 DIABETES SCREEN DIABETES SCREEN [facility] Start: 1997 Diabetes Screening Diabetes Screening [facility] Start: 1997 FECAL OCCULT BLOOD FECAL OCCULT BLOOD [facility] Start: 1997 Lipid 1996 panel - Serum or Plasma Lipid Screening [facility] Start: 1997 LIPID SCREEN LIPID SCREEN [facility] Start: 1997 SIGMOIDOSCOPY SIGMOIDOSCOPY [facility] Start: 1992 Mammography [facility] Start: 1982 Zoledronic acid therapy ALPHA-1 ANTITRYPSIN DEFICIENCY SCREENING [facility] Start: 1971 Urine microalbumin profile [facility] Start: 1970 ANNUAL PCP TEAM CHRONIC DISEASE VISIT ANNUAL PCP TEAM CHRONIC DISEASE VISIT [facility] Start: 1970 HEPATITIS C SCREENING HEPATITIS C SCREENING [facility] Start: 1970 SPIROMETRY SPIROMETRY [facility] Start: 1952 COVID-19 VACCINE (#1) COVID-19 VACCINE (#1) [facility] MG Breast - left Screening [facility] MG Breast - left Screening [facility] Immunizations Immunization Date Immunization Notes Care Provider Fa [facility] 01-05-2020 influenza (HD-IIV4) vaccine, age 65+ yr, high dose, quadrivalent, PF (FLUZONE HIGH-DOSE) Alesha Schulte MD Work Phone: [facility] 01-05-2020 influenza virus vacc ine, unspecified formulation Alesha Schulte MD Work Phone: [facility] 01-25-2018 pneumococcal polysaccharide vaccine, 23 valent Alesha Schulte MD Work Phone: [facility] 10-20-2017 pneumococcal conjuga te vaccine, 13 valent Alesha Schulte MD Work Phone: [facility] 09-17-2015 pneumococcal polysaccharide vaccine, 23 valent Alesha Schulte MD Work Phone: [facility] 06-09-2015 influenza, injectabl e, quadrivalent, preservative free Alesha Schulte MD Work Phone: [facility] 09-18-2014 zoster vaccine, live Raji Schulte MD Work Phone: [facility] 01-30-2009 novel influenza-H1N1 -09, preservative-free, injectable Alesha Schulte MD Work Phone: [facility] Payers Date Payer Category Payer Unknown MMO MMO MEDICARE SUPPLEMENT [id number] 2019-Present [phone] [address] [place] [address] Indemnity [id number] 2018 Medicare MEDICARE MEDICAR E A AND B [id number] 2018-Present [phone] [address] [address] [place] [address] Medicare [id number] 2016 Self-pay [id number] 1959 Medicare [id number] 1959 Unknown [id number] 1952 Unknown [id number] [id number] 1952 Unknown [id number] 2.16.840.1.635118.3.579.2.356 1952 Unknown [id number] 2.16.840.1.955736.3.579.2.356 1952 Unknown [id number] 2.16.840.1.738881.3.579.2.593 1952 Unknown [id number] 2.16.840.1.417679.3.579.2.593 1952 Unknown [id number] 2.16.840.1.822248.3.579.2.593 1952 Unknown [id number] 2.16.840.1.024472.3.579.2.593 1952 Unknown [id number] 2.16.840.1.900207.3.579.2.593 1952 Unknown [id number] 2.16.840.1.320886.3.579.2.593 1952 Unknown [id number] 2.16.840.1.442826.3.579.2.593 1952 Unknown [id number] 2.16.840.1.121967.3.579.2.593 1952 Unknown [id number] 2.16.840.1.308708.3.579.2.593 1952 Unknown [id number] 2.16.840.1.781977.3.579.2.593 1952 Unknown [id number] 2.16.840.1.788943.3.579.2.593 1952 Unknown [id number] 2.16.840.1.031881.3.579.2.593 1952 Unknown [id number] 2.16.840.1.695807.3.579.2.593 1952 Unknown [id number] 2.16.840.1.957014.3.579.2.593 Unknown [id number] Unknown [id number] [id number] Social History Date Type Detail Facility Start: 01-21-2021 End: 01-21-2023 Tobacco smoking status AZIS Never smoked tobacco (finding) [facility] Start: 1950 Sex Assigned At Female F [facility] Start: 02-27-2019 Tobacco use and exposure Smoke less tobacco non-user [facility] Start: 09-18-2019 End: 01-17-2023 Alcohol intake Current drinker of alcohol (finding) [facility] Start: 09-18-2019 History SDOH Alcohol Frequency 2 [facility] Start: 09-18-2019 History SDOH Alcohol Std Drinks 1 [facility] Start: 02-27-2019 Alcohol Comment a glass of win e once every 2-3 months [facility] Start: 1950 Sex Assigned At Not on file [facility] Start: 02-27-2019 End: 07-05-2022 History of Social function [facility] Start: 02-27-2019 End: 07-05-2022 Alcohol Use Disorder Identification Test - Consumption [AUDIT-C] [facility] Frequency of Alcohol Consumption Monthly or less [facility] Medical Equipment Procedure Code Equipment Code Equipment Origin al Text Equipment Identifier Dates Lens Acrysof Iq Toric 6mm +24.5 Diopter +6 Cylinder 0 D Biconvex Acrylic 13 - [id number] Start: 03-14-2019 Comment on above: Description: -0.57 Lens Acrysof Iq Toric Stableforce 6mm 0 D +22.5 Diopter +2.25 Cylinder - [id number] Start: 03-21-2019 Comment on above: Description: -0.80 Istent Inject - [id number] Start: 03-14-2019 Istent Inject - [id number] Start: 03-21-2019 Clinical Notes 01-04-2017 to 01-17-2023 Alesha Schulte MD - 01/17/2023 8:36 AM EDTAdonn Schulte MD - 07/05/2022 11:14 AM EDTTelephone Encounter - Nida Stockton - 03/11/2022 9:38 AM EST Note Date & Type Note Facility 01-17-2023 Note HNO ID: [id number] Author: Alesha Schulte MD Service: ? Author [...] agree with all of its relevant components. [facility] 01-17-2023 History of Presen t illness Narrative [...] its relevant components. documented in this encounter [facility] 07-05-2022 Note HNO ID: [id number] Author: Alesha Schulte MD Service: ? Author [...] agree with all of its relevant components. [facility] 07-05-2022 History of Presen t illness Narrative [...] its relevant components. documented in this encounter [facility] 03-19-2022 Note PROCEDURE: XR WRIST RT MIN 3 V HISTORY: Unspecified fall ; acute right wrist pain after falling COMPARISON: None. FINDINGS: BONES:No fracture, acute abnormality, or significant arthropathy. SOFT TISSUES:No visible soft tissue swelling. EFFUSION:None visible. OTHER: Negative. IMPRESSION: 1. No acute bone abnormality. 2. Multifocal mild degenerative changes. Electronically authenticated by: ADIEL MCCONNELL Date: 2022-03-19 10:26 [facility] 03-11-2022 Miscellaneous Notes Formattin g of this note might be different from the original. *SECOND ATTEMT* Called patient and LVM for her to call back and schedule an appt with for glaucoma suspect. Referral from Dr. Sebastian. Called patient and LVM to schedule an appointment with Dr. Schulte for GLC suspect. documented in this encounter [facility] 01-21-2022 Progress note Note Date/Time January 21, 2022 10:15[facility] [place] [id number] Hem/Onc Follow Up Note - OP Signed Patient: Myla Brothers MR#: [id number] : 1950 Acct:[id number] Age/Sex: 71 / F Type: REG RCR [...] of anastrozole, we will now follow annually [facility] patient wishes to return to oncology). We will arrange her annual follow-ups after her annual mammograms in January of each year. She also requested refill of breast prosthesis and mastectomy bra. No breast exam due to telephone visit. No skin changes or breast tenderness. No recent f/u by bead worker sewing in [place]--was reported to have vasculitis 4 years ago--now resolved but still has some mild erythema and swelling of left greater than right leg without pain. Receives Anastrozole due to weak [place] expression--no significant myalgias/arthralgias or hot flashes. No [...] pT1c, N0, M0. Tumor was ER negative, [place] weak, and HER-2 nonamplified. She underwent right mastectomy at [place] in 02/2015. Completed dose dense AC X4 [...] years of adjuvant therapy. 3. Evaluated by bead worker sewing in [place] (does not believe she had vasculitis)--no recent [...] inflammatory. She was referred to pulmonary at [place]. Ground glass opacities resolved on PET/CT 08/2017. [...] of Therapies: 1. Right breast mastectomy at [facility] (Dr. Rodriguez) in 02/2015. 2. Completed dose [...] nodes positive, pT1c, N0, M0. ER negative, [place] weak, and HER-2 nonamplified. (1) Breast cancer, right Qualifiers: Estrogen receptor status: negative Patient sex: female 1. 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 ER negative, [place] weak, and HER-2 nonamplified. 2. She underwent mastectomy at [place] in 02/2015. Completed dose dense AC X4 and Taxol X 12 in August 2015. 3. 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 Anastrozole was resumed in 03/2017 4. Saw bead worker sewing in [place] for persistent leg pain and swelling (he [...] inflammatory. She was referred to pulmonary at [place]. --Followup PET/CT 08/2017 showed resolution of prior [...] for coordination of care (as documented) and [id number] counseling of patient and/or family. Dictated By: Claire Duran APRN DD/ 1014 Signed By: <Electronically signed by CHIDI Duran> 01/21/22 1041 [facility] Work Phone: [phone]) 176-295710-20-2021 Progress note Author Kacie Garay [facility] January 21, 2021 8:25pm Note Date/Time January 21, 2021 1 0:34am [facility] [place] [id number] Hem/Onc Follow Up Note - OP Signed Patient: Myla Brothers MR#: [id number] : 1950 Acct:[id number] Age/Sex: 70 / F Type: REG RCR [...] of anastrozole, we will now follow annually ([facility] but patient wishes to return to oncology). We will arrange her annual follow-ups after her annual mammograms in January of each year. She also requested refill of breast prosthesis and mastectomy bra. No breast exam due to telephone visit. No skin changes or breast tenderness. No recent f/u by bead worker sewing in [place]--was reported to have vasculitis 4 years ago--now resolved but still has some mild erythema and swelling of left greater than right leg without pain. Receives Anastrozole due to weak NY expression--no significant myalgias/arthralgias or hot flashes. No [...] pT1c, N0, M0. Tumor was ER negative, NY weak, and HER-2 nonamplified. She underwent right mastectomy at [facility] in 02/2015. Completed dose dense AC X4 [...] years of adjuvant therapy. 3. Evaluated by bead worker sewing in [place] (does not believe she had vasculitis)--no recent [...] inflammatory. She was referred to pulmonary at [facility]. Ground glass opacities resolved on PET/CT 08/2017. [...] of Therapies: 1. Underwent right mastectomy at [facility] in 02/2015. 2. Completed dose dense AC [...] nodes positive, pT1c, N0, M0. ER negative, NY weak, and HER-2 nonamplified. (1) Breast cancer, right Qualifiers: Estrogen receptor status: negative Patient sex: female 1. 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 ER negative, NY weak, and HER-2 nonamplified. 2. She underwent mastectomy at [facility] in 02/2015. Completed dose dense AC X4 and Taxol X 12 in August 2015. 3. 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 Anastrozole was resumed in 03/2017 4. Saw bead worker sewing in [place] for persistent leg pain and swelling (he [...] inflammatory. She was referred to pulmonary at [facility]. --Followup PET/CT 08/2017 showed resolution of prior [...] for coordination of care (as documented) and pwkv-ta-viqn counseling of patient and/or family. Dictated By: Kacie Garay MD DD/ 1034 Signed By: <Electronically signed by MD Kacie Garay> 01/21/212024 [facility] Work Phone: [phone] Progress note Author Kacie Garay [facility] July 21, 2020 11:38am Note Date/Time July 21, 2020 9:3 9am [facility] [place] [address] Hem/Onc Follow Up Note - OP Signed Patient: Myla Brothers MR#: [id number] : 1950 Acct:[id number] Age/Sex: 70 / F Type: REG RCR Copies to: Kenyetta Reynolds MD~ Subjective Date/Time of Service: Date of Service: 07/21/2020 Time of Service: 09:36 Chief Complaint: Patient has consented to doxy visit for 4 month follow up visitfor breast cancer and to review bone densitometry test. HPI: Patient had video visit (doxy.ms) today for 4-month follow-up and review of [...] of anastrozole, we will now follow annually ([facility] but patient wishes to return to oncology). We will arrange her annual follow-ups after her annual mammograms in January of each year. She also requested refill of breast prosthesis and mastectomy bra. No breast exam due to telephone visit. No skin changes or breast tenderness. No recent f/u by bead worker sewing in [place]--was reported to have vasculitis 4 years ago--now resolved but still has some mild erythema and swelling of left greater than right leg without pain. Receives Anastrozole due to weak [place] expression--no significant myalgias/arthralgias or hot flashes. No [...] pT1c, N0, M0. Tumor was ER negative, NY weak, and HER-2 nonamplified. She underwent right mastectomy at [facility] in 02/2015. Completed dose dense AC X4 [...] years of adjuvant therapy. 3. Evaluated by bead worker sewing in [place] (does not believe she had vasculitis)--no recent [...] inflammatory. She was referred to pulmonary at [facility]. Ground glass opacities resolved on PET/CT 08/2017. [...] of Therapies: 1. Underwent right mastectomy at [facility] in 02/2015. 2. Completed dose dense AC [...] nodes positive, pT1c, N0, M0. ER negative, NY weak, and HER-2 nonamplified. (1) Breast cancer, right Qualifiers: Estrogen receptor status: negative Patient sex: female 1. 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 ER negative, NY weak, and HER-2 nonamplified. 2. She underwent mastectomy at [facility] in 02/2015. Completed dose dense AC X4 and Taxol X 12 in August 2015. 3. 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 Anastrozole was resumed in 03/2017 4. Saw bead worker sewing in [place] for persistent leg pain and swelling (he [...] inflammatory. She was referred to pulmonary at [facility]. --Followup PET/CT 08/2017 showed resolution of prior [...] for coordination of care (as documented) and yzde-oo-llhc counseling of patient and/or family. Dictated By: Kacie Garay MD DD/ 0936 Signed By: <Electronically signed by MD Kacie Garay> 07/21/20 9396 [facility] Work Phone: [phone] Progress note Author Kacie Garay [facility] March 12, 2020 2:49pm Note Date/Time March 12, 2020 9 :56am [facility] [place] [id number] Hem/Onc Follow Up Note - OP Signed Patient: Myla Brothers MR#: [id number] : 1950 Acct:[id number] Age/Sex: 69 / F Type: REG RCR [...] or breast tenderness. No recent f/u by bead worker sewing in [place]--was reported to have vasculitis 4 years ago--now resolved but still has some mild erythema and swelling of left greater than right leg without pain. Receives Anastrozole due to weak [place] expression--no significant myalgias/arthralgias or hot flashes. No [...] pT1c, N0, M0. Tumor was ER negative, NY weak, and HER-2 nonamplified. She underwent right mastectomy at [facility] in 02/2015. Completed dose dense AC X4 [...] of extended adjuvant therapy. 3. Evaluated by bead worker sewing in [place] (does not believe she had vasculitis)--no recent [...] inflammatory. She was referred to pulmonary at [facility] [place]. Ground glass opacities resolved on PET/CT 08/2017. [...] of Therapies: 1. Underwent right mastectomy at [facility] in 02/2015. 2. Completed dose dense AC [...] lymph nodes positive, pT1c, N0,M0. ER negative, NY weak, and HER-2 nonamplified. 2. She underwent mastectomy at [facility] in 02/2015. Completed dose dense AC X4 and Taxol X 12 in August 2015. 3. 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 Anastrozole was resumed in 03/2017 4. Saw bead worker sewing in [place] for persistent leg pain and swelling (he [...] inflammatory. She was referred to pulmonary at [facility]. --Followup PET/CT 08/2017 showed resolution of prior [...] for coordination of care (as documented) and nnvy-jf-xrip counseling of patient and/or family. Dictated By: Kacie Garay MD DD/ 0954 Signed By: <Electronically signed by MD Kacie Garay> 03/12/20 1442 [facility] Work Phone: [phone] Progress note Author Kacie Garay [facility] September 05, 2019 1:07pm Note Date/Time September 05, 2019 10:57 am [facility] at [address] [address] Hem/Onc Follow Up Note - OP Signed Patient: Myla Brothers MR#: [id number] : 1950 Acct:[id number] Age/Sex: 69 / F Type: REG RCR [...] or breast tenderness. No recent f/u by bead worker sewing in [place]--was reported to have vasculitis 3 years ago--now resolved but still has some mild erythema and swelling of left greater than right leg without pain. Receives Anastrozole due to weak [place] expression--no significant myalgias/arthralgias or hot flashes. No [...] pT1c, N0, M0. Tumor was ER negative, NY weak, and HER-2 nonamplified. She underwent right mastectomy at [facility] in 02/2015. Completed dose dense AC X4 and Taxol X 12 in August 2015. 2. Anastrozole with calcium and vitamin D started in August 2015. Calcium and vitamin D discontinued 07/2016 Anastrozole stopped in 01/2017 when she developed vasculitis (erythematous rash over legs) although no proven association at this time. Anastrozole was resumed in 03/2017 3. Evaluated by bead worker sewing in [place] (does not believe she had vasculitis)--no recent [...] inflammatory. She was referred to pulmonary at [facility] [place]. Ground glass opacities resolved on PET/CT 08/2017. [...] of Therapies: 1. Underwent right mastectomy at [facility] in 02/2015. 2. Completed dose dense AC [...] nodes positive, pT1c, N0, M0. ER negative, NY weak, and HER-2 nonamplified. 2. She underwent mastectomy at [facility] in 02/2015. Completed dose dense AC X4 and Taxol X 12 in August 2015. 3. 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 Anastrozole was resumed in 03/2017 4. Saw bead worker sewing in [place] for persistent leg pain and swelling (he [...] inflammatory. She was referred to pulmonary at [facility] [place]. --Followup PET/CT 08/2017 showed resolution of prior [...] vasculitis but per second opinion from a bead worker sewing and manager assembly in [place] this is not vasculitis. They told her [...] for coordination of care (as documented) and udjc-gy-sicr counseling of patient and/or family. Dictated By: Kacie Garay MD DD/ 1058 Signed By: <Electronically signed by MD Kacie Garay> 09/05/19 1304 [facility] Work Phone: [phone] History of Past illness Narrative* Problem Noted Date Resolved Date Combined forms of age-related cataract of both e yes 02/22/2019 03/21/2019 documented as of this encounter (statuses as of 03/11/2022) [facility]11-21-2019 History of Past illness Narrative* Problem Noted Date Resolved Date Combined forms of age-related cataract of both e yes 02/22/2019 03/21/2019 documented as of this encounter (statuses as of 07/05/2022) [facility]11-21-2019 History of Past illness Narrative* Problem Noted Date Diagnosed Date Resolved Date Combined forms of age-relate d cataract of both eyes 02/22/2019 03/21/2019 documented as of this encounter (statuses as of 01/17/2023) [facility]10-21-2019 Progress note Author Kacie Garay [facility] January 22, 2019 9:28pm Note Date/Time January 22, 2019 1 0:40[facility] [place] [address] Hem/Onc Follow Up Note - OP Signed Patient: Myla Brothers MR#: [id number] : 1950 Acct:[id number] Age/Sex: 68 / F Type: REG RCR [...] or breast tenderness. [place] reported to have vasculitis 2 1/2 years ago--now resolved. Receives Anastrozole due to weak [place] expression--no significant myalgias/arthralgias or hot flashes. No bowel or bladder complaints. No interval changes in medical history. We reviewed DEXA scan showing normal bone density 07/17/2018. DIAGNOSIS: 1. 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 Tumor was ER negative, NY weak, and HER-2 nonamplified. She underwent right mastectomy at [facility] in 02/2015. Completed dose dense AC X4 and Taxol X 12 in August 2015. 2. Anastrozole with calcium and vitamin D started in August 2015. Calcium and vitamin D discontinued 07/2016 Anastrozole stopped in 01/2017 when she developed vasculitis (erythematous rash over legs) although no proven association at this time. Anastrozole was resumed in 03/2017 3. Evaluated by bead worker sewing in [place] (does not believe she had vasculitis)--no recent [...] inflammatory. She was referred to pulmonary at [facility] [place]. Ground glass opacities resolved on PET/CT 08/2017. [...] of Therapies: 1. Underwent right mastectomy at [facility] in 02/2015. 2. Completed dose dense AC [...] nodes positive, pT1c, N0, M0. ER negative, [place] weak, and HER-2 nonamplified. 2. She underwent mastectomy at [facility] in 02/2015. Completed dose dense AC X4 and Taxol X 12 in August 2015. 3. 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 Anastrozole was resumed in 03/2017 4. Saw bead worker sewing in [place] for persistent leg pain and swelling (he [...] inflammatory. She was referred to pulmonary at [facility]. --Followup PET/CT 08/2017 showed resolution of prior [...] vasculitis but per second opinion from a bead worker sewing and manager assembly in [place] this is not vasculitis. They told her [...] for coordination of care (as documented) and cuci-ny-boit counseling of patient and/or family. Dictated By: Kacie Garay MD DD/ 1039 Signed By: <Electronically signed by MD Kacie Garay> 01/22/197 [facility] Work Phone: [phone] Progress note Author Kacie Garay [facility] July 19, 2018 8:36pm Note Date/Time July 19, 2018 10: 48am [facility] [place] [address] Hem/Onc Follow Up Note - OP Signed Patient: Myla Brothers MR#: [id number] : 1950 Acct:[id number] Age/Sex: 68 / F Type: REG RCR [...] pT1c, N0, M0. Tumor was ER negative, NY weak, and HER-2 nonamplified. She underwent right mastectomy at [facility] in 02/2015. Completed dose dense AC X4 and Taxol X 12 in August 2015. 2. Anastrazole with calcium and vitamin D started in August 2015, Calcium and vitamin D discontinued 07/2016 Anastrozole stopped in 01/2017 when she developed vasculitis (erythematous rash over legs) although no proven association at this time. Anastrozole was resumed in 03/2017 3. Evaluated by bead worker sewing in [place] (does not believe she had vasculitis)--no recent [...] inflammatory. She was referred to pulmonary at [facility] [place]. Ground glass opacities resolved on PET/CT 08/2017. [...] or breast tenderness. [place] to have vasculitis 2 years ago--now resolved. Receives Anastrozole due to weak [place] expression--no significant myalgias/arthralgias or hot flashes. No bowel or bladder complaints. No interval changes in medical history. We reviewed DEXA scan showing normal bone density 07/17/2018. - Summary of Therapies Summary of Therapies: 1. Underwent right mastectomy at [facility] in 02/2015. 2. Completed dose dense AC [...] scan 07/17/2018 reviewed--normal. Annual bilateral mammography at [facility] 01/2018--ordered 6 month f/u mammogram prior to next f/u. Assessment and Plan (1) Breast cancer, right Qualifiers: Estrogen receptor status: negative Patient sex: female 1. 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 ER negative, NY weak, and HER-2 nonamplified. 2. She underwent mastectomy at [facility] in 02/2015. Completed dose dense AC X4 and Taxol X 12 in August 2015. 3. Anastrazole with calcium and vitamin D started in August 2015, Calcium and vitamin D discontinued 07/2016 Anastrozole stopped in 01/2017 when she developed vasculitis although there is no proven association at this time. Anastrozole was resumed in 03/2017 4. Seeing bead worker sewing in [place] for persistent leg pain and swelling (he [...] inflammatory. She was referred to pulmonary at [facility] [place]. --Followup PET/CT 08/2017 showed resolution of prior [...] unless new symptoms arise. Annual mammogram at [facility] prior to next followup. DEXA normal--f/u in [...] vasculitis but per second opinion from a bead worker sewing and manager assembly in [place] this is not vasculitis. They told her [...] for coordination of care (as documented) and obch-zr-rybi counseling of patient and/or family. Dictated By: Kacie Garay MD DD/ 1048 Signed By: <Electronically signed by MD Kacie Garay> 07/19/182035 [facility] Work Phone: [phone] Progress note Author Kacie Garay [facility] January 18, 2018 8:17pm Note Date/Time January 17, 2018 3 :44pm [facility] [place] [address] Hem/Onc Follow Up Note - OP Signed Patient: Myla Brothers MR#: [id number] : 1950 Acct:[id number] Age/Sex: 67 / F Type: REG RCR [...] pT1c, N0, M0. Tumor was ER negative, NY weak, and HER-2 nonamplified. She underwent right mastectomy at [facility] in 02/2015. Completed dose dense AC X4 and Taxol X 12 in August 2015. 2. Anastrazole with calcium and vitamin D started in August 2015, Calcium and vitamin D discontinued 07/2016 Anastrazole stopped in 01/2017 when she developed vasculitis although thereis no proven association at this time. Anastrozole was resumed in 03/2017 3. Now follows with rhematologist in [place] (does not believe she had vasculitis). 4. [...] inflammatory. She was referred to pulmonary at [facility] [place]. Ground glass opacities resolved on PET/CT 08/2017. 5. A focus of increased uptake in the liver of uncertain significance was also identified. On MRI of the liver there was no abnormality found. HPI: Patient returns to the clinic for transfer of care from Dr. tSeiner. No changes on self breast exam. No skin changes or breast tenderness. She is seeing a bead worker sewing in [place]--was reported to have vasculitis of legs about a yearago. Receives Anastrozole due to weak [place] expression--no significant myalgias/arthralgias or hot flashes. No bowel or bladder complaints. - Summary of Therapies Summary of Therapies: 1. Underwent right mastectomy at [facility] in 02/2015. 2. Completed dose dense AC [...] (Auto) 27.4 % (.) 01/03/17 17:45 [place] % (Auto) 12.7 % (.) 01/03/17 17:45 Eos % (Auto) 1.5 % (.) 01/03/17 17:45 Baso % (Auto) 0.6 % (.) 01/03/17 17:45 Neut # (Auto) 4.4 x10E3/uL (1.8-7.7) 01/03/17 17:45 Lymph # (Auto) 2.1 x10E3/uL (1.00-4.8) 01/03/17 17:45 [place] # (Auto) 1.0 x10E3/uL (0.0-0.8) H 01/03/17 [...] where applicable. 01/11/2018--left diagnostic mammogram reviewed from [facility] Left breast stable with scattered benign appearing calcifications and benign appearing lymph nodes. BIRADS 2--Benign findings. Assessment and Plan (1) Breast cancer, right Qualifiers: Estrogen receptor status: negative Patient sex: female Status: Chronic 1. 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 ER negative, NY weak, and HER-2 nonamplified. 2. She underwent mastectomy at [facility] in 02/2015. Completed dose dense AC X4 and Taxol X 12 in August 2015. 3. Anastrazole with calcium and vitamin D started in August 2015, Calcium and vitamin D discontinued 07/2016 Anastrazole stopped in 01/2017 when she developed vasculitis although there is no proven association at this time. Anastrozole was resumed in 03/2017 4. Seeing bead worker sewing in [place] for persistent leg pain and swelling (he [...] inflammatory. She was referred to pulmonary at [facility] [place]. Followup PET/CT 08/2017 showed resolution of prior [...] vasculitis but per second opinion from a bead worker sewing and manager assembly in [place] this is not vasculitis. They told her [...] for coordination of care (as documented) and xfun-xs-bihf counseling of patient and/or family. 25 - 35 minutes Dictated By: Kacie Garay MD DD/ 1543 Signed By: <Electronically signed by Kacie Garay MD> 01/18/182016 [facility] Work Phone: [phone]) [phone] Progress note Author Mohsen Steiner [facility] August 18, 2017 3:25pm Note Date/Time August 18, 2017 3:23p [facility] at [address] [address] Hem/Onc Follow Up Note - OP Signed Patient: Myla Brothers MR#: [id number] : 1950 Acct:[id number] Age/Sex: 67 / F Type: REG RCR [...] (Auto) 27.4 % (.) 01/03/17 17:45 [place] % (Auto) 12.7 % (.) 01/03/17 17:45 Eos % (Auto) 1.5 % (.) 01/03/17 17:45 Baso % (Auto) 0.6 % (.) 01/03/17 17:45 Neut # (Auto) 4.4 x10E3/uL (1.8-7.7) 01/03/17 17:45 Lymph # (Auto) 2.1 x10E3/uL (1.00-4.8) 01/03/17 17:45 [place] # (Auto) 1.0 x10E3/uL (0.0-0.8) H 01/03/17 [...] N0, M0. 2. Tumor was ER negative, NY weak, and HER-2 nonamplified. 3. She underwent mastectomy at [facility] in 02/2015. Completed dose dense AC X4 [...] inflammatory. She was referred to pulmonary at [facility] 8. A focus of increased uptake in [...] vasculitis but per second opinion from a bead worker sewing and manager assembly in [place] this is not vasculitis. They told her [...] for coordination of care (as documented) and oafv-xf-atrr counseling of patient and/or family. Dictated By: Mohsen Steiner MD DD/ 1512 Signed By: <Electronically signed by Mohsen Steiner MD> 08/18/17 3678 [facility] Work Phone: [phone] Progress note Author Mohsen Steiner [facility] July 21, 2017 3:44pm Note Date/Time July 21, 2017 3:4 0pm [facility] [place] [address] Hem/Onc Follow Up Note - OP Signed Patient: Myla Brothers MR#: [id number] : 1950 Acct:[id number] Age/Sex: 67 / F Type: REG RCR Copies to: Mario Og DO~ Subjective Date/Time of Service: Date of Service: 07/21/2017 Time of Service: 15:39 Chief Complaint: Patient here for four month follow up appointment with labs. HPI: Patient returns to the clinic for a pre-scheduled follow-up visit that reports that 1. She saw a manager assembly and bead worker sewing in [place]. They do not think that she has [...] (Auto) 27.4 % (.) 01/03/17 17:45 [place] % (Auto) 12.7 % (.) 01/03/17 17:45 Eos % (Auto) 1.5 % (.) 01/03/17 17:45 Baso % (Auto) 0.6 % (.) 01/03/17 17:45 Neut # (Auto) 4.4 x10E3/uL (1.8-7.7) 01/03/17 17:45 Lymph # (Auto) 2.1 x10E3/uL (1.00-4.8) 01/03/17 17:45 [place] # (Auto) 1.0 x10E3/uL (0.0-0.8) H 01/03/17 [...] N0, M0. 2. Tumor was ER negative, [place] weak, and HER-2 nonamplified. 3. She underwent mastectomy at [facility] in 02/2015. Completed dose dense AC X4 [...] inflammatory. She was referred to pulmonary at [facility] 8. A focus of increased uptake in [...] vasculitis but per second opinion from a bead worker sewing and manager assembly in [place] this is not vasculitis. They told her [...] for coordination of care (as documented) and dqby-fh-olor counseling of patient and/or family. Dictated By: Mohsen Steiner MD DD/ 1539 Signed By: <Electronically signed by Mohsen Steiner MD> 07/21/17 5749 [facility] Work Phone: [phone]) [phone] Progress note Author Mohsen Steiner [facility] March 25, 2017 11:28am Note Date/Time March 25, 2017 11:27am [facility] [place] [address] Hem/Onc Follow Up Note - OP Signed Patient: Myla Brothers MR#: [id number] : 1950 Acct:[id number] Age/Sex: 66 / F Type: REG RCR Copies to: Mario Og DO~ Subjective Date/Time of Service: Date of Service: 03/25/2017 Time of Service: 11:25 Chief Complaint: Patient is here to review MRI report and to follow up after seeing the debug technician. HPI: Patient returns to the clinic for a pre-scheduled follow-up visit that reports that 1. She was seen at [facility] rheumatology, and from there she was referred to a manager assembly in [place]. No final diagnosis has yet been made. 2. She had an MRI of the liver 3. She was seen by pulmonary in [facility] Details: All systems reviewed & no [...] (Auto) 27.4 % (.) 01/03/17 17:45 [place] % (Auto) 12.7 % (.) 01/03/17 17:45 Eos % (Auto) 1.5 % (.) 01/03/17 17:45 Baso % (Auto) 0.6 % (.) 01/03/17 17:45 Neut # (Auto) 4.4 x10E3/uL (1.8-7.7) 01/03/17 17:45 Lymph # (Auto) 2.1 x10E3/uL (1.00-4.8) 01/03/17 17:45 [place] # (Auto) 1.0 x10E3/uL (0.0-0.8) H 01/03/17 [...] N0, M0. 2. Tumor was ER negative, NY weak, and HER-2 nonamplified. 3. She underwent mastectomy at [facility] in 02/2015. Completed dose dense AC X4 [...] pulmonary (by her preference to a new debug technician at [facility]) 8. A focus of increased uptake in the liver of quasi-significance was also identified. On MRI of the liver there was no abnormality found (2) Pulmonary embolism Status: Chronic She is currently on warfarin (3) Vasculitis Status: Acute She is being seen by rheumatology at [facility]. (4) Lung nodules Status: Resolved Her [...] for coordination of care (as documented) and vzih-fh-orny counseling of patient and/or family. Dictated By: Mohsen Steiner MD DD/ 24 Signed By: <Electronically signed by Mohsen Steiner MD> 03/25/178 [facility] Work Phone: 1([phone]) 244-122612-13-2017 Progress note Author Mohsen Steiner [facility] March 16, 2017 3:11pm Note Date/Time March 16, 2017 2:57pm [facility] [place] [address] Hem/Onc Follow Up Note - OP Signed Patient: Myla rBothers MR#: [id number] : 1950 Acct:[id number] Age/Sex: 66 / F Type: REG RCR Copies to: Mario Og DO~ Subjective Date/Time of Service: Date of Service: 03/16/2017 Time of Service: 14:55 Chief Complaint: Patient is here for review of [employer] reports. HPI: Patient returns to the clinic for a pre-scheduled follow-up visit that reports that 1. She was seen at [facility] rheumatology, and from there she was referred to a manager assembly in [place]. No final diagnosis has yet been made [...] (Auto) 27.4 % (.) 01/03/17 17:45 [place] % (Auto) 12.7 % (.) 01/03/17 17:45 Eos % (Auto) 1.5 % (.) 01/03/17 17:45 Baso % (Auto) 0.6 % (.) 01/03/17 17:45 Neut # (Auto) 4.4 x10E3/uL (1.8-7.7) 01/03/17 17:45 Lymph # (Auto) 2.1 x10E3/uL (1.00-4.8) 01/03/17 17:45 [place] # (Auto) 1.0 x10E3/uL (0.0-0.8) H 01/03/17 [...] N0, M0. 2. Tumor was ER negative, NY weak, and HER-2 nonamplified. 3. She underwent mastectomy at [facility] in 02/2015. Completed dose dense AC X4 [...] pulmonary (by her preference to a new debug technician at [facility]) 8. A focus of increased uptake in the liver of quasi-significance was also identified. MRI of the liver has been requested (2) Pulmonary embolism Status: Chronic She is currently on warfarin (3) Vasculitis Status: Acute She was seen by rheumatology at [facility]. (4) Lung nodules Status: Acute Her [...] for coordination of care (as documented) and kjzl-ps-dogt counseling of patient and/or family. Dictated By: Mohsen Steiner MD DD/ 1455 Signed By: <Electronically signed by Mohsen Steiner MD> 03/16/17 1511 [facility] Work Phone: [phone] 382-145711-27-2017 Progress note Author Mohsen Steiner [facility] February 28, 2017 2:51pm Note Date/Time February 28, 2017 2:29pm [facility] [place] [address] Hem/Onc Follow Up Note - OP Signed Patient: Myla Brothers MR#: [id number] : 1950 Acct:[id number] Age/Sex: 66 / F Type: REG RCR Copies to: Mario Og DO~ Subjective Date/Time of Service: Date of Service: 02/28/2017 Time of Service: 14:26 Chief Complaint: Patient here to follow up after rheumatology referral. HPI: Patient returns to the clinic for a pre-scheduled follow-up visit that reports that 1. She was seen at [facility] rheumatology ROS Details: All systems reviewed [...] (Auto) 27.4 % (.) 01/03/17 17:45 [place] % (Auto) 12.7 % (.) 01/03/17 17:45 Eos % (Auto) 1.5 % (.) 01/03/17 17:45 Baso % (Auto) 0.6 % (.) 01/03/17 17:45 Neut # (Auto) 4.4 x10E3/uL (1.8-7.7) 01/03/17 17:45 Lymph # (Auto) 2.1 x10E3/uL (1.00-4.8) 01/03/17 17:45 [place] # (Auto) 1.0 x10E3/uL (0.0-0.8) H 01/03/17 [...] N0, M0. 2. Tumor was ER negative, NY weak, and HER-2 nonamplified. 3. She underwent mastectomy at [facility] in 02/2015. Completed dose dense AC X4 [...] Acute She was seen by rheumatology at [facility]. The ordered some initial workup that [...] for coordination of care (as documented) and tajx-xo-qvjc counseling of patient and/or family. Dictated By: Mohsen Steiner MD DD/ 1426 Signed By: <Electronically signed by Mohsen Steiner MD> 02/28/17 1451 [facility] Work Phone: 1(896) 786-351911-02-2017 Progress note Author Mohsen Steiner [facility] February 03, 2017 9:03am Note Date/Time February 03, 2017 9 :01am [facility] [place] [address] Hem/Onc Follow Up Note - OP Signed Patient: Myla Brothers MR#: [id number] : 1950 Acct:[id number] Age/Sex: 66 / F Type: REG RCR Copies to: Mario Og DO~ Subjective Date/Time of Service: Date of Service: 02/03/2017 Time of Service: 08:58 Chief Complaint: Patient here to follow up after EGD and EUS. HPI: Patient returns to the clinic for a pre-scheduled follow-up visit that reports that 1. She had an EUS at [facility] by Dr. Tara Hess and no significant [...] (Auto) 27.4 % (.) 01/03/17 17:45 [place] % (Auto) 12.7 % (.) 01/03/17 17:45 Eos % (Auto) 1.5 % (.) 01/03/17 17:45 Baso % (Auto) 0.6 % (.) 01/03/17 17:45 Neut # (Auto) 4.4 x10E3/uL (1.8-7.7) 01/03/17 17:45 Lymph # (Auto) 2.1 x10E3/uL (1.00-4.8) 01/03/17 17:45 [place] # (Auto) 1.0 x10E3/uL (0.0-0.8) H 01/03/17 [...] N0, M0. 2. Tumor was ER negative, [place] weak, and HER-2 nonamplified. 3. She underwent mastectomy at [facility] in 02/2015. Completed dose dense AC X4 [...] Status: Acute She was referred to the [facility] but her appointment is in April which [...] for coordination of care (as documented) and dypp-hf-jezx counseling of patient and/or family. Dictated By: Mohsen Steiner MD DD/ 0858 Signed By: <Electronically signed by Mohsen Steiner MD> 02/03/17 0903 [facility] Work Phone: [phone]) 715-452310-12-2017 Progress note Author Mohsen Steiner [facility] January 12, 2017 10:59pm Note Date/Time January 12, 2017 1 0:57pm [facility] [place] [address] Hem/Onc Follow Up Note - OP Signed Patient: Myla Brothers MR#: [id number] : 1950 Acct:[id number] Age/Sex: 66 / F Type: REG RCR Copies to: Mario Og DO~ Subjective Date/Time of Service: Date of Service: 01/12/2017 Time of Service: 22:52 Chief Complaint: Patient is here to follow up PET scan results. HPI: Patient returns to the clinic for a pre-scheduled follow-up visit that reports that 1. She was diagnosed with vasculitis at [facility] 2. She was found to have pulmonary [...] (Auto) 27.4 % (.) 01/03/17 17:45 [place] % (Auto) 12.7 % (.) 01/03/17 17:45 Eos % (Auto) 1.5 % (.) 01/03/17 17:45 Baso % (Auto) 0.6 % (.) 01/03/17 17:45 Neut # (Auto) 4.4 x10E3/uL (1.8-7.7) 01/03/17 17:45 Lymph # (Auto) 2.1 x10E3/uL (1.00-4.8) 01/03/17 17:45 [place] # (Auto) 1.0 x10E3/uL (0.0-0.8) H 01/03/17 [...] N0, M0. 2. Tumor was ER negative, NY weak, and HER-2 nonamplified. 3. She underwent mastectomy at [facility] in 02/2015. Completed dose dense AC X4 [...] We will be referring her to the [facility] for evaluation and management. (4) Lung nodules [...] for coordination of care (as documented) and wqbe-ps-fesq counseling of patient and/or family. Dictated By: Mohsen Steiner MD DD/ 51 Signed By: <Electronically signed by Mohsen Steiner MD> 01/12/172258 [facility] Work Phone: [phone]) 111-423110-04-2017 Progress note Author Mohsen Steiner [facility] January 05, 2017 4:45pm Note Date/Time January 05, 2017 4: 38pm [facility] [place] [address] Hem/Onc Follow Up Note - OP Signed Patient: Myla Brothers MR#: [id number] : 1950 Acct:[id number] Age/Sex: 66 / F Type: REG RCR cc: Mario Og DO~ Subjective Date/Time of Service: Date of Service: 01/05/2017 Time of Service: 16:37 Chief Complaint: Patient is here for follow up to CT scan patient has been having ongoing vascular problems. HPI: Patient returns to the clinic for a pre-scheduled follow-up visit that reports that 1. She was diagnosed with vasculitis at [facility] 2. She was found to have pulmonary [...] (Auto) 27.4 % (.) 01/03/17 17:45 [place] % (Auto) 12.7 % (.) 01/03/17 17:45 Eos % (Auto) 1.5 % (.) 01/03/17 17:45 Baso % (Auto) 0.6 % (.) 01/03/17 17:45 Neut # (Auto) 4.4 x10E3/uL (1.8-7.7) 01/03/17 17:45 Lymph # (Auto) 2.1 x10E3/uL (1.00-4.8) 01/03/17 17:45 [place] # (Auto) 1.0 x10E3/uL (0.0-0.8) H 01/03/17 [...] N0, M0. 2. Tumor was ER negative, [place] weak, and HER-2 nonamplified. 3. She underwent mastectomy at [facility] in 02/2015. Completed dose dense AC X4 [...] that in November, she was admitted at [facility] and was diagnosed with vasculitis affecting the [...] for coordination of care (as documented) and nzju-zd-xauu counseling of patient and/or family. Dictated By: Mohsen Steiner MD DD/ 1637 Signed By: <Electronically signed by Mohsen Steiner MD> 01/05/17 1832 [facility] Work Phone: [phone] 221-558510-03-2017 Progress note Author Jefferson Rice [facility] January 04, 2017 11:22am Note Date/Time January 04, 2017 11 :22am [facility] at [address] [address] Hem/Onc Follow Up Note - OP Signed Patient: Myla Brothers MR#: [id number] : 1950 Acct:[id number] Age/Sex: 66 / F Type: REG RCR [...] for coordination of care (as documented) and lzut-mw-lnsz counseling of patient and/or family. Dictated By: Jefferson Rice MD DD/ 1120 Signed By: <Electronically signed by Jefferson Rice MD> 01/04/17 1122 [facility] Work Phone: Evaluation note* Diagnosis Onset Date Resolution Status Breast cancer, right chronic Encounter for monitoring anastrozole therapy chronic Osteoarthritis of knees, bilateral chronic Pulmonary embolism chronic Screening for osteoporosis c hronic Cutaneous leukocytoclastic angiitis resolved History of hypercalcemia res olved Hypercalcemia resolved Lung nodules resolved Neuropathy resolved Vasculitis resolved [facility] Work Phone: Evaluation note* Diagnosis Primary open-angle glaucoma, bilateral, mild stage- [facility] Primary open-angle glaucoma, bilateral, mild stage- Primary documented in this encounter [facility] Summary Purpose Family History No Family History [...] the event of a Fluress shortage, administer Medora-Fluor 1 drop into both eyes as directed for applanation tonometry Given 01/17/2023 8:30 AM EDT 1 Drop Additional Source Comments INFORMATION SOURCE (unrecogn ized section and content) DATE CREATED AUTHOR 09/27/2017 [facility] DATE CREATED AUTHOR AUTHOR'S ORGANIZ ATION 01/18/2018 [facility] DATE CREATED AUTHOR AUTHOR'S ORGANIZ ATION 08/05/2018 [facility] DATE CREATED AUTHOR AUTHOR'S ORGANIZ ATION 09/10/2022 [facility] DATE CREATED AUTHOR AUTHOR'S ORGANIZ ATION 01/17/2023 [facility] DATE CREATED AUTHOR AUTHOR'S ORGANIZ ATION 01/21/2023 [facility] Care Teams (unrecognized sec tion and content) Team Status: Active Member Role Status Dates Kenyetta Reynolds MD Primary Care Provider Active Team Status: Active Member Role Status Dates Christian Steiner MD Other Provider Active Kacie Garay MD Attending Provider Active Kenyetta Reynolds MD Primary Care Provider Active Chart Computer Relationship Specialty Start Date End Date Kenyetta Reynolds MD [facility] [place] [address] PCP - General Family Medicine 03/14/19 Chart Computer Relationship Specialty Start Date End Date Kenyetta Reynolds MD PCP - General Family Medicine 03/14/19 Chart Computer Relationship Specialty Start Date End Date Kenyetta [...] or prosecute any alcohol or drug abuse patient.[facility] the event this information is protected by the Federal Confidentiality of Alcohol and Drug Abuse Patient Records regulations: The Federal rules restrict any use of the information to criminally investigate or prosecute any alcohol or drug abuse patient.[facility] the event this information is protected by the Federal Confidentiality of Alcohol and Drug Abuse Patient Records regulations: The Federal rules restrict any use of the information to criminally investigate or prosecute any alcohol or drug abuse patient.[facility] Reason for Visit (unrecogniz ed section and [...] BE BASED ON THE PRIMARY CLINICAL RECORDS. [facility], [facility]. provides no warranty or guarantee of the accuracy or completeness of information in this document.
== END 2023-05-17 13:48 | disposition home or self-care (01) ==
LOC: RAD 13:47
PROVIDERS: PCP Family Medicine; Visit Provider Podiatrist Foot & Ankle Surgery
DX: M79.672 Pain in left foot (principal); Z98.890 Other specified postprocedural states
CPT/HCPCS: 73630

== ENCOUNTER 2023-05-31 08:50 | Outpatient (RCR) | payer MEDICARE, OTHER, SELFPAY | END 2023-06-20 11:54 | disposition home or self-care (01) | LOC: OT 08:50 | PROVIDERS: PCP Family Medicine; Visit Provider Podiatrist Foot & Ankle Surgery | DX: M20.22 Hallux rigidus, left foot (principal); I89.0 Lymphedema, not elsewhere classified | CPT/HCPCS: 97140; 97166; 97530; 97535 ==

== ENCOUNTER 2023-06-03 01:22 | Outpatient (RCR) | payer MEDICARE, OTHER, SELFPAY | END 2023-07-01 13:54 | disposition home or self-care (01) | LOC: MM 01:22 | PROVIDERS: PCP Family Medicine; Visit Provider Internal Medicine | DX: Z51.81 Encounter for therapeutic drug level monitoring (principal); Z79.01 Long term (current) use of anticoagulants; I26.99 Other pulmonary embolism without acute cor pulmonale | CPT/HCPCS: 85610; G0463 ==

== ENCOUNTER 2023-07-04 03:17 | Outpatient (RCR) | payer MEDICARE, OTHER, SELFPAY | END 2023-08-02 18:10 | disposition home or self-care (01) | LOC: MM 03:17 | PROVIDERS: PCP Family Medicine; Visit Provider Internal Medicine | DX: Z51.81 Encounter for therapeutic drug level monitoring (principal); Z79.01 Long term (current) use of anticoagulants; I26.99 Other pulmonary embolism without acute cor pulmonale | CPT/HCPCS: 85610; G0463 ==

== ENCOUNTER 2023-07-13 10:33 | Outpatient (OUT) | payer MEDICARE, OTHER, SELFPAY ==
--- NOTE | 2023-07-13 | XR_ITS ---
The [address] [address] Patient Name: DEYVI BROTHERS MRN: [id number] date: 1950 Sex: F Assigned Patient Location: Current Patient Location: Accession/Order Number: [id number] Exam Date: 07/13/2023 10:35 Report Date: 07/13/2023 14:07 At the request of: RAY CHERY Procedure: XR foot LT min 3V PROCEDURE: XR foot LT min 3V COMPARISON: 05/17/2023 HISTORY: LEFT FOOT PAIN FINDINGS: BONES:Stable first metatarsal-phalangeal joint fusion with spacer. Remote osteotomy and screw placement at of the second metatarsal. Remote resection head of the second and third proximal phalanges. Stable kyaq-ea-vsivtaoh degenerative changes. Moderate enthesopathic spurring of the Achilles and plantar calcaneus SOFT TISSUES:Negative. No visible soft tissue swelling. EFFUSION:None visible. OTHER: Negative. XR/XR foot LT min 3V IMPRESSION: Stable degenerative and postsurgical changes Electronically authenticated by: VENANCIO SAUCEDO Date: 07/13/2023 14:07
== END 2023-07-13 10:34 | disposition home or self-care (01) ==
LOC: EC 10:35
PROVIDERS: PCP Family Medicine; Visit Provider Podiatrist Foot & Ankle Surgery
DX: M79.672 Pain in left foot (principal); Z98.890 Other specified postprocedural states
CPT/HCPCS: 73630

== ENCOUNTER 2023-07-21 12:48 | Outpatient (OUT) | payer MEDICARE, OTHER, SELFPAY ==
--- NOTE | 2023-07-21 13:12 | CT_ITS ---
[address] [address] Patient Name: DEYVI BROTHERS MRN: [id number] date: 1950 Sex: F Assigned Patient Location: CT Current Patient Location: Accession/Order Number: [id number] Exam Date: 07/21/2023 13:06 Report Date: 07/22/2023 11:10 At the request of: RAY CHERY Procedure: CT foot LT wo con EXAMINATION: CT foot LT wo con HISTORY: Hallux Rigidus ; first toe/ball of foot pain COMPARISON: XR foot left 07/13/2023, CT foot left 04/15/2023 TECHNIQUE: Multi-planar CT images were created without and/or with IV contrast according to examination type. Dose reduction techniques were achieved by using automated exposure control and/or adjustment of mA and/or kV according to patient size and/or use of iterative reconstruction technique. FINDINGS: BONES: Prosthetic spacer within first metatarsophalangeal joint space and mechanical fusion of the joint via dorsal plate and screws; no appreciable hardware fracture or loosening. Prior resection of the head of the second third proximal phalanx. Joint space narrowing and mild degenerative changes of the first tarsal-metatarsal joint. Prior resection of lateral margin of 5th metatarsal head. Degenerative enthesopathic spurring at the plantar aponeurosis and Achilles tendon insertions into the calcaneus. SOFT TISSUES: Increased density of the subcutaneous fat lateral and plantar to the 5th metatarsophalangeal joint. EFFUSION: None visible. OTHER: Negative. CT/CT foot LT wo con IMPRESSION: 1. Mechanical fusion of the first metatarsophalangeal joint and prosthetic spacer within the joint space; no appreciable hardware failure or suspicious findings to account for patient's symptoms. 2. Additional surgical changes and mild degenerative changes detailed above. Electronically authenticated by: ADIEL MCCONNELL Date: 07/22/2023 11:10
== END 2023-07-21 12:49 | disposition home or self-care (01) ==
LOC: CT 12:48
PROVIDERS: PCP Family Medicine; Visit Provider Podiatrist Foot & Ankle Surgery
DX: M20.22 Hallux rigidus, left foot (principal); Z98.1 Arthrodesis status
CPT/HCPCS: 73700

== ENCOUNTER 2023-08-03 04:42 | Outpatient (RCR) | payer MEDICARE, OTHER, SELFPAY | END 2023-09-02 12:04 | disposition home or self-care (01) | LOC: MM 04:42 | PROVIDERS: PCP Family Medicine; Visit Provider Internal Medicine | DX: Z51.81 Encounter for therapeutic drug level monitoring (principal); Z79.01 Long term (current) use of anticoagulants; I26.99 Other pulmonary embolism without acute cor pulmonale | CPT/HCPCS: 85610; G0463 ==

== ENCOUNTER 2023-09-05 03:14 | Outpatient (RCR) | payer MEDICARE, OTHER, SELFPAY | END 2023-09-30 10:31 | disposition home or self-care (01) | LOC: MM 03:14 | PROVIDERS: PCP Family Medicine; Visit Provider Internal Medicine | DX: Z51.81 Encounter for therapeutic drug level monitoring (principal); Z79.01 Long term (current) use of anticoagulants; I26.99 Other pulmonary embolism without acute cor pulmonale | CPT/HCPCS: 85610; G0463 ==

== ENCOUNTER 2023-10-03 00:25 | Outpatient (RCR) | payer MEDICARE, OTHER, SELFPAY | END 2023-11-02 10:01 | disposition home or self-care (01) | LOC: MM 00:25 | PROVIDERS: PCP Family Medicine; Visit Provider Internal Medicine | DX: Z51.81 Encounter for therapeutic drug level monitoring (principal); Z79.01 Long term (current) use of anticoagulants; I26.99 Other pulmonary embolism without acute cor pulmonale ==

== ENCOUNTER 2023-11-03 00:35 | Outpatient (RCR) | payer MEDICARE, OTHER, SELFPAY | END 2023-12-02 09:58 | disposition home or self-care (01) | LOC: MM 00:35 | PROVIDERS: PCP Family Medicine; Visit Provider Internal Medicine | DX: Z51.81 Encounter for therapeutic drug level monitoring (principal); Z79.01 Long term (current) use of anticoagulants; I26.99 Other pulmonary embolism without acute cor pulmonale | CPT/HCPCS: 85610; G0463 ==

== ENCOUNTER 2023-12-05 01:33 | Outpatient (RCR) | payer MEDICARE, OTHER, SELFPAY | END 2024-01-02 23:56 | disposition home or self-care (01) | LOC: MM 01:33 | PROVIDERS: PCP Family Medicine; Visit Provider Internal Medicine | DX: Z51.81 Encounter for therapeutic drug level monitoring (principal); Z79.01 Long term (current) use of anticoagulants; I26.99 Other pulmonary embolism without acute cor pulmonale | CPT/HCPCS: 85610; G0463 ==

== ENCOUNTER 2024-01-03 02:37 | Outpatient (RCR) | payer MEDICARE, OTHER, SELFPAY | END 2024-02-02 23:32 | disposition home or self-care (01) | LOC: MM 02:37 | PROVIDERS: PCP Family Medicine; Visit Provider Internal Medicine | DX: Z51.81 Encounter for therapeutic drug level monitoring (principal); Z79.01 Long term (current) use of anticoagulants; I26.99 Other pulmonary embolism without acute cor pulmonale | CPT/HCPCS: 85610; G0463 ==

== ENCOUNTER 2024-02-03 12:40 | Outpatient (RCR) | payer MEDICARE, OTHER, SELFPAY | END 2024-03-03 23:59 | disposition home or self-care (01) | LOC: MM 12:40 | PROVIDERS: PCP Family Medicine; Visit Provider Internal Medicine | DX: Z51.81 Encounter for therapeutic drug level monitoring (principal); Z79.01 Long term (current) use of anticoagulants; I26.99 Other pulmonary embolism without acute cor pulmonale ==

== ENCOUNTER 2024-03-05 04:48 | Outpatient (RCR) | payer MEDICARE, OTHER, SELFPAY | END 2024-04-03 09:21 | disposition home or self-care (01) | LOC: MM 04:48 | PROVIDERS: PCP Family Medicine; Visit Provider Internal Medicine | DX: Z51.81 Encounter for therapeutic drug level monitoring (principal); Z79.01 Long term (current) use of anticoagulants; I26.99 Other pulmonary embolism without acute cor pulmonale | CPT/HCPCS: 85610; G0463 ==

== ENCOUNTER 2024-03-07 12:06 | Outpatient (OUT) | payer MEDICARE, OTHER, SELFPAY ==
--- NOTE | 2024-03-07 | XR_ITS ---
The [address] [address] Patient Name: DEYVI BROTHERS MRN: [id number] date: 1950 Sex: F Assigned Patient Location: LAB Current Patient Location: Accession/Order Number: [id number] Exam Date: 03/07/2024 12:25 Report Date: 03/08/2024 06:07 At the request of: KENYETTA SANCHEZ Procedure: XR cervical spine 2-3V EXAMINATION: XR cervical spine 2-3V HISTORY: Shoulder pain right M 25.511 COMPARISON: No relevant comparison available. FINDINGS: BONES: Multilevel moderate degenerative facet arthropathy. Normal height and alignment of the vertebral bodies. DISC SPACES: Mild narrowing and posterior disc osteophyte at C3-C4 and C4-C5, and C6-C7. PARASPINOUS: Negative. No paraspinous abnormality is seen. OTHER: Negative. XR/XR cervical spine 2-3V IMPRESSION: 1. Multilevel moderate degenerative changes likely resulting in central canal and foraminal narrowing. Electronically authenticated by: ADIEL MCCONNELL Date: 03/08/2024 06:07
--- NOTE | 2024-03-07 | XR_ITS ---
The [address] [address] Patient Name: DEYVI BROTHERS MRN: [id number] date: 1950 Sex: F Assigned Patient Location: LAB Current Patient Location: LAB Accession/Order Number: [id number] Exam Date: 03/07/2024 12:25 Report Date: 03/08/2024 06:09 At the request of: KENYETTA SANCHEZ Procedure: XR shoulder RT min 2V PROCEDURE: XR shoulder RT min 2V HISTORY: Shoulder pain right M 25.511 COMPARISON: None. FINDINGS: BONES:Mild degenerative changes of the acromioclavicular joint. Humeral head is slightly low riding within the glenoid with degenerative osteophytes along the inferior articular margins. No fracture. SOFT TISSUES:No visible soft tissue swelling. EFFUSION:None visible. OTHER: Negative. XR/XR shoulder RT min 2V IMPRESSION: 1. No acute bone abnormality. 2. Mild/moderate degenerative changes of the right shoulder. Electronically authenticated by: ADIEL MCCONNELL Date: 03/08/2024 06:09
== END 2024-03-07 12:07 | disposition home or self-care (01) ==
LOC: LAB 12:11
PROVIDERS: PCP Family Medicine; Visit Provider Family Medicine
DX: M25.511 Pain in right shoulder (principal); M19.011 Primary osteoarthritis, right shoulder
CPT/HCPCS: 72040; 73030

== ENCOUNTER 2024-04-02 12:17 | Outpatient (OUT) | payer MEDICARE, OTHER, SELFPAY ==
--- NOTE | 2024-04-02 12:21 | MR_ITS ---
The [address] [address] Patient Name: DEYVI BROTHERS MRN: [id number] date: 1950 Sex: F Assigned Patient Location: MRI Current Patient Location: Accession/Order Number: [id number] Exam Date: 04/02/2024 12:37 Report Date: 04/03/2024 09:58 At the request of: KENYETTA SANCHEZ Procedure: MR cervical spine wo con MR cervical spine wo con, 04/02/2024 12:37 PM EST INDICATION: M19.90 Arthritis COMPARISON: Prior x-ray of cervical spine dated 03/07/2024 TECHNIQUE: Multiplanar, multisequential MRI images of cervical spine were obtained without contrast. FINDINGS: There is normal physiologic cervical lordosis. The vertebral heights are relatively preserved. The cervicomedullary junction is unremarkable. No definite signal abnormality within the spinal cord is noted. There are moderate disc osteophyte complex associated with uncovertebral joint arthrosis from C3 to T1 contributing to neuroforaminal and canal stenosis. At the level of C2-C3, there is no neuroforaminal narrowing or canal stenosis. At the level of C3-C4, there is mild bilateral neuroforaminal narrowing and mild canal stenosis. At the level of C4-C5, there is severe bilateral neuroforaminal narrowing and severe canal stenosis. At the level of C5-C6, there is mild bilateral neuroforaminal narrowing and mild canal stenosis. At the level of C6-C7, there is mild right and moderate left neuroforaminal narrowing and mild canal stenosis. Level of C7-T1 is unremarkable. No definite muscular or ligamentous injury is noted. Incidental note of 5.6 mm nodule in the right lobe of thyroid. Given the age of the patient and size of the nodule, no further follow-up is recommended per [employer]. MR/MR cervical spine wo con IMPRESSION: Moderate degenerative changes of the cervical spine in particular at C4-C5. Electronically authenticated by: MARANDA RAY Date: 04/03/2024 09:58
--- NOTE | 2024-04-02 12:21 | MR_ITS ---
[address] [address] Patient Name: DEYVI BROTHERS MRN: [id number] date: 1950 Sex: F Assigned Patient Location: MRI Current Patient Location: MRI Accession/Order Number: [id number] Exam Date: 04/02/2024 12:37 Report Date: 04/04/2024 04:30 At the request of: KENYETTA SANCHEZ Procedure: MR shoulder RT wo con EXAMINATION: MR shoulder RT wo con HISTORY: Shoulder pain COMPARISON: No relevant comparison available. TECHNIQUE: A variety of imaging planes and parameters were utilized for visualization of suspected pathology. Imaging was performed without or with contrast as indicated by examination type. FINDINGS: ROTATOR CUFF REGION CUFF TENDONS: Markedly increased T2 signal in expected location of the supraspinatus tendon with suspected 1.2 cm proximal retraction. CUFF MUSCLES: Normal appearing muscles. DELTOID: No significant atrophy or tear. LONG BICEPS TENDON: No abnormal signal, attrition, or tear. LABRUM/BICEPS ANCHOR SUPERIOR: No visible labral tear or biceps anchor pathology. ANTERIOR/INFERIOR: No visible tear or attrition. POSTERIOR: No posterior labrum abnormality. CAPSULE No visible capsular laxity or thickening. AC JOINT REGION AC JOINT: Marked osteoarthropathy with moderate to severe narrowing of the underlying coracoacromial arch. AC LIGAMENTS: Normal acromioclavicular ligament. CC LIGAMENTS: Normal coracoclavicular ligaments. ACROMION: Moderate lateral downsloping. SUBACROMIAL BURSA: Moderate effusion. HYALINE CARTILAGE: Moderate diffuse humeral and glenoid cartilage thinning. OTHER BONES: Small degenerative osteophytes along the articular margins of the humeral head. Mild edema within the humeral head deep to the superior rotator cuff insertion. OTHER OBSERVATIONS: Joint effusion. MR/MR shoulder RT wo con IMPRESSION: 1. Tear versus high-grade strain of the supraspinous tendon. Tear and mild retraction is suspected. 2. Moderate-marked degenerative changes of acromioclavicular joint with undersurface osteophytes impinging upon the superior rotator cuff. Moderate lateral downsloping of acromion process. 3. Small moderate amount of fluid within the subacromial-subdeltoid bursa and moderate joint effusion. 4. Periarticular osteophytes and cartilage thinning of the glenohumeral joint. Electronically authenticated by: ADIEL MCCONNELL Date: 04/04/2024 04:30
== END 2024-04-02 12:18 | disposition home or self-care (01) ==
LOC: MRI 12:17
PROVIDERS: PCP Family Medicine; Visit Provider Family Medicine
DX: M25.511 Pain in right shoulder (principal); M19.90 Unspecified osteoarthritis, unspecified site; S46.811A Strain of other muscles, fascia and tendons at shoulder and upper arm level, right arm, initial encounter; M19.011 Primary osteoarthritis, right shoulder; M25.411 Effusion, right shoulder; M50.30 Other cervical disc degeneration, unspecified cervical region
CPT/HCPCS: 72141; 73221

== ENCOUNTER 2024-04-05 01:05 | Outpatient (RCR) | payer MEDICARE, OTHER, SELFPAY | END 2024-05-04 14:38 | disposition home or self-care (01) | LOC: MM 01:05 | PROVIDERS: PCP Family Medicine; Visit Provider Internal Medicine | DX: Z51.81 Encounter for therapeutic drug level monitoring (principal); Z79.01 Long term (current) use of anticoagulants; I26.99 Other pulmonary embolism without acute cor pulmonale | CPT/HCPCS: 85610; G0463 ==

== ENCOUNTER 2024-04-19 13:46 | Outpatient (OUT) | payer MEDICARE, OTHER, SELFPAY ==
--- NOTE | 2024-04-19 14:04 | P.CN_ITS ---
Consult Note: HPI Data of Consult Patient: new to practice Requesting Physician: Magali Castle NP Primary Care Provider: Guille Reynolds MD Consult Narrative Reason for consult: establish Narrative: Myla Pollack a pleasant 73 year old female presents for evaluation of severe neck pain. Pt has been experiencing intermittently severe neck pain increasing since february of 2024, pain has not responded to PT/HEP, tylenlol, heat/ice, or NSAIDs. of note pt is on coumadin and should avoid NSAIDs. initially in february when the pain started it was accompanied with right arm pain, however that has significantly improved. Pts most significant pain is axial neck pain with headaches 3+ times a week. pain currently 0/10, increasing to 6/10 with house work and looking up or down. failed tylenol, currently utilizing prn motrin and lyrica without improvement. cc:: CC: Magali Castle NP Review of Systems ROS Status of ROS 10 or more systems reviewed and unremark able except as noted in history and below Musculoskeletal Reports: neck pain; Denies: extremity pain PFSH PFS Medical History (Updated 04/19/24 @ 14:18 by Magali Castle NP) Hammertoe of left foot ?M20.42 - Other hammer toe(s) (acquired), left foot (ICD-10) Other osteonecrosis, left foot ?M87.875 - Other osteonecrosis, left foot (ICD-10) Hallux rigidus, left foot ?M20.22 - Hallux rigidus, left foot (ICD-10) Nasal polyp ?J33.9 - Nasal polyp, unspecified (ICD-10) Neuropathy ?G62.9 - Polyneuropathy, unspecified (ICD-10) Osteoarthritis ?M19.90 - Unspecified osteoarthritis, unspecified site (ICD-10) Arthritis ?M19.90 - Unspecified osteoarthritis, unspecified site (ICD-10) Pulmonary embolism ?I26.99 - Other pulmonary embolism without acute cor pulmonale (ICD-10) Chronic obstructive pulmonary disease ?J44.9 - Chronic obstructive pulmonary disease, unspecified (ICD-10) Asthma ?J45.909 - Unspecified asthma, uncomplicated (ICD-10) Migraine ?G43.909 - Migraine, unspecified, not intractable, without status migrainosus (ICD-10) Cataract ?H26.9 - Unspecified cataract (ICD-10) Varicose vein of leg ?I83.90 - Asymptomatic varicose veins of unspecified lower extremity (ICD-10) Painful orthopaedic hardware ?T84.84XA - Pain due to internal orthopedic prosthetic devices, implants and grafts, initial encounter (ICD-10) Hallux rigidus ?M20.20 - Hallux rigidus, unspecified foot (ICD-10) Hammertoe ?M20.40 - Other hammer toe(s) (acquired), unspecified foot (ICD-10) Hallux valgus ?M20.10 - Hallux valgus (acquired), unspecified foot (ICD-10) Breast cancer ?C50.919 - Malignant neoplasm of unspecified site of unspecified female breast (ICD-10) Surgical History History of esophagogastroduodenoscopy (EGD) ?Z98.890 - Other specified postprocedural states (ICD-10) History of cataract extraction ?Z98.49 - Cataract extraction status, unspecified eye (ICD-10) History of colonoscopy ?Z98.890 - Other specified postprocedural states (ICD-10) H/O mastectomy ?Z90.10 - Acquired absence of unspecified breast and nipple (ICD-10) History of carpal tunnel release ?Z98.890 - Other specified postprocedural states (ICD-10) History of foot surgery ?Z98.890 - Other specified postprocedural states (ICD-10) History of foot surgery ?Z98.890 - Other specified postprocedural states (ICD-10) History of arthroplasty of knee ?Z96.659 - Presence of unspecified artificial knee joint (ICD-10) Family History Mother Pancreatic cancer Other Family history of diabetes mellitus Family history of heart disease Family history of hypertension Family history of myocardial infarction Family history of pancreatic cancer Social History Within the past year, how often did you have a drink containing alcohol: never Score interpretation: A score less than 3 is consistent with normal alcohol consumption. Smoking status: Never smoker Non-prescribed substance use: denies use Previous occupational history: [employer] work at [employer] Highest level of school completed/degree received: high school graduate Meds Home Medications and Allergies Home Medications ?Medication ?Instructions ?Recorded ?Confirmed ?Type acetyltyrosine 350 mg-vitamin B6 5 1 cap PO DAILY 10/13/22 01/18/23 History mg capsule albuterol sulfate 90 mcg/actuation 2 inh inhalation Q8H PRN shortness 10/13/22 01/18/23 History aerosol inhaler of breath or wheezing ascorbic acid (vitamin C) 1,000 mg 1 g PO DAILY 10/13/22 01/18/23 History capsule atorvastatin 20 mg tablet 20 mg PO QDAY 10/13/22 01/18/23 History budesonide-formoterol HFA 160 2 inh inhalation Q12H 10/13/22 01/18/23 History mcg-4.5 mcg/actuation aerosol inhaler (Symbicort) cyclosporine 0.05 % eye drops in a 1 drp ophthalmic (eye) Q12H 10/13/22 01/18/23 History dropperette (Restasis) ergotamine 1 mg-caffeine 100 mg 1 tab PO BID PRN migraine headache 10/13/22 01/18/23 History tablet fluticasone propionate 50 2 spray intranasal Q12H 10/13/22 01/18/23 History mcg/actuation nasal spray,suspension glucosamine 375 [id number] 1 tab PO DAILY 10/13/22 01/18/23 History no1 500 mg-C 15 mg-maida 0.5 mg tablet (Hcxczaohvhf-Xeuagmjpsin-PXR Complex) magnesium glycinate 100 mg (as 100 mg PO DAILY 10/13/22 01/18/23 History glycinate) tablet (Mag Glycinate) montelukast 10 mg tablet 10 mg PO .QHS 10/13/22 01/18/23 History multivitamin (Daily Multi-Vitamin 1 tab PO DAILY 10/13/22 01/18/23 History tablet) pregabalin 75 mg capsule 75 mg PO Q12H 10/13/22 01/18/23 History tiotropium bromide 2.5 2 inh inhalation Q24H 10/13/22 01/18/23 History mcg/actuation mist for inhalation (Spiriva Respimat) vitamin B complex (B 1 tab PO DAILY 10/13/22 01/18/23 History Complex-Vitamin B12 tablet) warfarin 5 mg tablet (Jantoven) 7.5 mg PO QDAY 10/13/22 01/18/23 History cefdinir 300 mg capsule 300 mg PO BID 01/18/23 01/18/23 History alendronate 70 mg tablet (Fosamax) 70 mg PO QWEEK 12 weeks #12 tabs 01/24/23 Rx aspirin 81 mg tablet,delayed 81 mg PO BID 30 days #60 tabs 01/24/23 Rx release (Adult Low Dose Aspirin) cefadroxil 500 mg capsule 500 mg PO BID 7 days #14 caps 01/24/23 Rx cholecalciferol (vitamin D3) 125 125 mcg PO DAILY 90 days #90 caps 01/24/23 Rx mcg (5,000 unit) capsule ondansetron 4 mg disintegrating 4 mg PO Q8H PRN nausea and 01/24/23 Rx tablet vomiting 5 days #15 tabs oxycodone-acetaminophen 5 mg-325 1 tab PO Q6H PRN pain 7 days #28 01/24/23 Rx mg tablet (Percocet) tabs sennosides 8.6 mg tablet (Senna 8.6 mg PO DAILY PRN constipation 7 01/24/23 Rx Laxative) days #7 tabs tizanidine 2 mg capsule 2 mg PO TID PRN muscle spasticity 01/24/23 Rx 7 days #21 caps Allergies Allergy/AdvReac Type Severity Reaction Status Date / Time Sulfa (Sulfonamide Allergy Unknown Verified 01/24/23 06:37 Antibiotics) Exam Constitutional Documenting provider has reviewed patient's vital signs: yes Common normals: no apparent distress, oriented x3, healthy appearing, alert and well nourished General appearance: cooperative [facility] Common normals: normocephalic, hearing grossly normal bilaterally and moist oral mucous membranes Head and scalp: normocephalic Eye Common normals: PERRL Pupil: PERRL Neck & C-Spine Common normals: full ROM General: normal visual inspection Cervical spine: cervical ROM abnormal, pain with cervical ROM and cervical spine tenderness; no paracervical muscle spasm, no trapezius muscle tenderness and Lhermitte's sign negative Other: negative spurlings sensation intact BUE strength 5/5 in BUE tenderness over bilateral greater occipital nerves positive facet pain and loading C2-5 Chest Common normals: inspection of chest normal Respiratory Common normals: normal respiratory effort, no retractions and no use of accessory muscles Neuro Common normals: oriented x3, CN's II-XII intact bilaterally, moves all extremities, no focal motor deficits, no sensory deficits noted and deep tendon reflexes 2+ bilaterally Sensorium/orientation: alert Motor exam: strength 5/5 throughout and no movement abnormalities noted Psych Common normals: mental status grossly normal, thought process normal, cooperative, affect normal, speech normal and activity/motor behavior normal Speech: normal speech Thought process: normal thought process Results Additional Findings Additional findings: There are moderate disc osteophyte complex associated with uncovertebral joint arthrosis from C3 to T1 contributing to neuroforaminal and canal stenosis. At the level of C2-C3, there is no neuroforaminal narrowing or canal stenosis. At the level of C3-C4, there is mild bilateral neuroforaminal narrowing and mild canal stenosis. At the level of C4-C5, there is severe bilateral neuroforaminal narrowing and severe canal stenosis. At the level of C5-C6, there is mild bilateral neuroforaminal narrowing and mild canal stenosis. At the level of C6-C7, there is mild right and moderate left neuroforaminal narrowing and mild canal stenosis. Level of C7-T1 is unremarkable. No definite muscular or ligamentous injury is noted. Assessment and Plan Assessment and Plan (1) Cervical spondylosis: (2) Cervical spinal stenosis: (3) Degenerative disc disease, cervical: Plan we reviewed her cervical MRI, based on patients history and physical exam her pain is most consistent with cervical spondylosis. although she has moderate to severe cervical stenosis she has no neurological deficits or symptoms of radiculopathy. defer NS consultation per pt preference, should neurological symptoms worsen we will revisit this. proceed with bilateral C2-3 C3-4 MBB x2 working towards RFA to improve axial neck pain and headaches. start transdermal therapeutics cream 8a TID-QID PRN pain to neck. continue PRN tylenol. f/u after each injection
== END 2024-04-19 13:47 | disposition home or self-care (01) ==
LOC: PM 13:46
PROVIDERS: PCP Family Medicine; Visit Provider Nurse Practitioner
DX: M47.812 Spondylosis without myelopathy or radiculopathy, cervical region (principal); M48.02 Spinal stenosis, cervical region; M50.30 Other cervical disc degeneration, unspecified cervical region
CPT/HCPCS: G0463

== ENCOUNTER 2024-05-03 07:15 | Outpatient (OUT) | payer MEDICARE, OTHER, SELFPAY ==
--- OUTSIDE RECORDS SUMMARY | 2024-05-03 07:21 | XMS_ITS | CCD ---
Demographics Address [address] [place] [address] Home Phone Mobile Phone Preferred Language en Marital Status Uatsdin Affiliation Unknown Race White Ethnic Group Not or Lati no Author Organization [facility] Care Team Providers Care Library Supervisor Name Role Phone Demarco Hess Unavailable Unavailable Family Physician Unavailable Unavailable Hilda vailable Family Physician Unavailable Unavailable Hilda vailable DOMENICO, EMELY Unavailable Unavailable DOMENICO, EMELY Unavailable Unavailable JIA, PINKY Unavailable Unavailable JIA, PINKY Unavailable Unavailable DOMENICO, EMELY Unavailable Unavailable DOMENICO, EMELY Unavailable Unavailable JIA, PINKY Unavailable Unavailable JIA, PINKY Unavailable Unavailable DOMENICO, EMELY Unavailable Unavailable DOMENICO, EMELY Unavailable Unavailable JIA, PINKY Unavailable Unavailable JIA, PINKY Unavailable Unavailable Christian Steiner Attending Unavaila Kacie Rojas Attending Unavailable Kacie Garay Attending Unavailable MD Christian Steiner Other Provider Unavailable MD Kacie Garay Attending Provider [phone] MD Kenyetta Reynolds Primary Care Provider [id number] Kenyetta Reynolds MD Primary Care Provider [phone] Kenyetta Reynolds MD Primary Care Provider [phone] IRAM, COVARRUBIAS H Attending Unavailable CORAWRUFINA, COVARRUBIAS H Admitting Unavailable DR KENYETTA GRAF Primary Care Unavailable FAWWAD, COVARRUBIAS H Attending Unavailable FAWWAD, COVARRUBIAS H Admitting Unavailable HOPaula .DR KUMARI Primary Care Unavailable FAWWAD, COVARRUBIAS H Attending Unavailable FAWWAD, COVARRUBIAS H Admitting Unavailable HOPaula .DR KUMARI Primary Care Unavailable FAWWAD, COVARRUBIAS H Attending Unavailable FAWWAD, COVARRUBIAS H Admitting Unavailable HOPaula .DR KUMARI Primary Care Unavailable FAWWAD, COVARRUBIAS H Attending Unavailable FAWWAD, COVARRUBIAS H Admitting Unavailable HODR KENYETTA Pennington Primary Care Unavailable FAWWAD, COVARRUBIAS H Attending [...] HOY ., DR KUMARI Primary Care Unavailable GEORGE ., MR DINO Admitting Unavailable HOY ., DR KUMARI Primary Care Unavailable GEORGE ., MR DINO Consulting Unavailable GEORGE ., MR DINO Attending Unavailable GREGORY, DINO Consulting Unavailable HOY ., DR KUMARI Primary Care Unavailable HOY ., DR KUMARI Consulting Unavailable HOY ., DR KUMARI Attending Unavailable HOY ., DR KUMARI Admitting Unavailable MICHELLE ., MARGA Attending Unavailable HOY ., DR KUMARI Primary Care Unavailable ZIKARINA, DR ADIEL Jauregui Consulting Unavailable MICHELLE ., MARGA Admitting Unavailable MICHELLE ., MARGA Consulting Unavailable FAWWAD, COVARRUBIAS H Attending Unavailable FAWWAD, COVARRUBIAS H Admitting Unavailable HOY ., DR KUMARI Primary Care Unavailable FAWWAD, COVARRUBIAS H Attending Unavailable FAWWAD, COVARRUBIAS H Admitting Unavailable HOY ., DR KUMARI Primary Care Unavailable MD Christian Steiner Other Provider MD Kacie Garay Attending Provider MD Kenyetta Reynolds Primary Care Provider [phone] Kenyetta Reynolds MD Primary Care Provider [phone] LYNSEY SALDANA Attending Unavailable KENYETTA REYNOLDS Referring Unavailable KENYETTA REYNOLDS Primary Care Unavailable Kenyetta Reynolds MD Primary Care Provider [phone] MD Christian Steiner Other Provider MD Kacie Garay Attending Provider MD Kenyetta Reynolds Primary Care Provider [phone] Christian Steiner Consulting Unavailable Kacie Garay Admitting Unavailable Kacie Garay Attending Unavailable Kenyetta Reynolds Primary Care Unavailable JR. TRESA, TODD Holbrook Attending Unavaila paulette BOUDREAUX JR., TODD Holbrook Referring Unavaila SARAHI Cuba Attending Unavailable KENYETTA REYNOLDS Referring Unavailable DINO GEORGE Attending Unavailable DINO GEORGE Referring Unavailable DINO GEORGE Attending Unavailable CK GONZALEZ Attending Unavailable KENYETTA REYNOLDS Primary Care Unavailable ALESHA SCHULTE Attending Unavailable KENYETTA REYNOLDS Primary Care Unavailable SCHULTE, ALESHA Referring Unavailable SCHULTE, ALESHA Referring Unavailable SCHULTE, ALESHA Attending Unavailable KENYETTA REYNOLDS Primary Care Unavailable ALESHA SCHULTE Attending Unavailable KENYETTA REYNOLDS Primary Care Unavailable Kenyetta Reynolds MD Primary Care Provider [phone] Allergies Allergy Classification Reported Allergen(s) Allergy Type Date of Onset Reaction(s) Facility Sulfonamides (antibiotic) (1 source) Sulfonamides (Antibiotic) Drug Allergy 9 Unknown [facility] (17 sources) Sulfonamides (Antibiotic); 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: [SULFA (SULFONAMIDE ANTIBIOTICS)] Drug Allergy 9 Unknown [facility] (1 source) Sulfonamides (Antibiotic) Drug allergy (disorder) 5 [facility] (8 sources) Sulfamethoxazole / Trimethoprim Drug Allergy 1 Unknown [facility] (1 source) Sulfonamides (Antibiotic) Drug allergy (disorder) 4 [facility] Medications Current Medications Medication Drug Class(es) Dates Sig (Normalized) Sig (Original) acetaminophen 325 mg / butalbital 50 mg / caffeine 40 mg oral tablet (6 sources) Barbiturate, Central Nervous System Stimulant, Methylxanthine take 1 tablet by mouth every four hours as needed butalbital-acetam inophen-caff (FIORICET, ESGIC) 50-325-40 mg per tablet Take 1 tablet by mouth every 4 (four) hours as needed. Active take 1 tablet by mouth every six hours as needed dcugesuvtx-prbmpmfanswgh-dujtfbtt 50-325 -40 MG tablet Take 1 tablet by mouth every 6 (six) hours if needed. 0 Active End: 01-17-2023 acetaminophen 325 mg-caffein e 40 mg-butalbital 50 mg (FIORICET) per tablet bqikpcxnsg-aygblxdddbydn-jnceeiol 50 mg-325 mg-40 mg tablet 0 01/17/2023 Discontinued Comment on above: butalbital-acetamino phen-caffeine 50 mg-325 mg-40 mg tablet albuterol 0.83 mg/ml inhalation solution (20 sources) beta2-Adrenergic Agonist Start: 017 End: 023 albuterol (PROVENTIL) 2.5 mg/3 mL nebulizer solution Albuterol Sulfate Active 1 PUFF INHALATION Q6H January 05, 2017 12:00am 0 01/05/2017 01/17/2023 Discontinued Start: 01-05-2017 take 1 puff(s) by in halation every six hours Albuterol Sulfate Active 1 PUFF INHALATION Q6H January 05, 2017 12:00am albuterol HFA (P ROAIR HFA) 90 mcg/actuation inhaler ProAir HFA 90 mcg/actuation aerosol inhaler Active take 1 puff(s) by in halation every four hours albuterol HFA (ProAir HFA) 90 mcg/act inhaler Inhale 1 puff every 4 (four) hours if needed. Active Comment on above: ProAir HFA 90 mcg/ac tuation aerosol inhaler Albuterol Sulfate Ac tive 1 PUFF INHALATION Q6H January 05, 2017 12:00am ascorbic acid 500 mg oral tablet (19 sources) Vitamin C Start: 01-05-2017 take 1 tablet by mouth once daily Ascorbic Acid (Vitamin C) (Vitamin C) 500 mg Tablet Active 500 MG PO Daily January 05, 2017 12:00am Ascorbic Acid (V ITAMIN C) 100 mg tablet Vitamin C 1 tab daily Active take 1 tablet by mouth in the mo rning ascorbic acid (Vitamin C) 1000 MG tablet Take 1,000 mg by mouth in the morning. Active Comment on above: Vitamin C 1 tab daily atorvastatin 20 mg oral tablet (19 sources) HMG-CoA Reductase Inhibitor Start: 9 take 1 tablet by mouth once daily atorvastatin (LIPITOR) 20 mg tablet TAKE 1 TABLET BY MOUTH ONE TIME A DAY 11 02/01/2019 Active Comment on above: TAKE 1 TABLET BY TIERA TH ONE TIME A DAY B Complex Vitamins (B COMPLEX 1 PO) (8 sources) B Complex Vitami ns (B COMPLEX 1 PO) Take 1 tablet by mouth in the morning. Active B Complex Vitami ns (B COMPLEX 1 PO) Take 1 tablet by mouth in the morning. 0 Active biotin 1 mg oral tablet (18 sources) Start: 02-28-2017 take 1 mg by mouth once daily Biotin Active 1 MG PO Daily February 28, 2017 1:00am biotin 1 mg cap biotin 1 tab daily Active Comment on above: biotin 1 tab daily 60 actuat budesonide 0.08 mg/actuat / formoterol fumarate 0.0045 mg/actuat metered dose inhaler (16 sources) Corticosteroid, beta2-Adrenergic Agonist Start: 11-01-2019 take 1 puff(s) by inhalation in the morning SYMBICORT 80-4.5 mcg/actuation inhaler Inhale 1 puff in the morning and 1 puff before bedtime. 11/01/2019 Active Start: 01-05-2017 End: 01-30-2024 take 1 puff(s) by inhalation once daily Budesonide-Formoterol (Symbicort) 80-4.5 mcg/actuation Hfa Aerosol Inhaler Discontinued 2 PUFF INHALATION Daily January 05, 2017 12:00am January 30, 2024 10:18am Start: 01-05-2017 take 1 puff(s) by in halation once daily Budesonide-Formoterol (Symbicort) 80-4.5 mcg/actuation Hfa Aerosol Inhaler Active 2 PUFF INHALATION Daily January 05, 2017 12:00am budesonide-formo terol (SYMBICORT) 160-4.5 mcg/actuation inhaler Symbicort 160 mcg-4.5 mcg/actuation HFA aerosol inhaler Active End: 12-19-2023 take 2 puff(s) by inhalation in the morning budesonide-formoterol (Symbicort) 160-4.5 MCG/ACT inhaler Inhale 2 puffs in the morning. 12/19/2023 Discontinued budesonide-formo terol (SYMBICORT) 160-4.5 mcg/actuation inhaler Symbicort 160 mcg-4.5 mcg/actuation HFA aerosol inhaler 0 Active Comment on above: Symbicort 160 mcg-4. 5 mcg/actuation HFA aerosol inhaler caffeine 100 mg / ergotamine tartrate 1 mg oral tablet (8 sources) Central Nervous System Stimulant, Ergotamine Derivative, Methylxanthine take 1-100 mg by mouth once ergotamine-caffeine (Cafergot) 1-100 MG tablet Take 1 tablet by mouth 1 (one) time if needed. Active cholecalciferol 0.025 mg oral capsule (19 sources) Vitamin D Start: 019 Cholecalciferol, Vitamin D3, 25 mcg (1,000 unit) cap Cholecalciferol Cholecalciferol (Vitamin D3) Active 1000 UNIT Oral Daily July 19, 2018 10:42am 07-19-2018 [facility] ([id number]) 07/19/2018 Active take 1 tablet by mouth in the mo rning cholecalciferol (D3-5) 5,000 Units tablet Take 5,000 Units by mouth in the morning. Active Comment on above: Cholecalciferol Chol ecalciferol (Vitamin D3) Active 1000 UNIT Oral Daily July 19, 2018 10:42am 07-19-2018 [facility] ([id number]) CHONDROITIN SULFATE A ORAL (14 sources) take 1 tablet by mouth once daily CHONDROITIN SULFATE A ORAL Chondroitin Sulfate 1 tab daily Active CHONDROITIN SULF ATE A ORAL once daily. Active CHONDROITIN SULF ATE A ORAL daily. Active CHONDROITIN SULF ATE A ORAL once daily. 0 Active take 1 tablet by mouth once shaheen y CHONDROITIN SULFATE A ORAL Chondroitin Sulfate 1 tab daily 0 Active Comment on above: Chondroitin Sulfate 1 tab daily once daily. cycloSPORINE 0.5 mg/ml ophthalmic suspension (16 sources) Calcineurin Inhibitor Immunosuppressant cycloSPORINE (RESTAS IS) 0.05 % ophthalmic emulsion Restasis 0.05 % eye drops in a dropperette Active take 1 drop(s) into the eye(s) every twelve hours cycloSPORINE (Restasis) 0.05 % ophthalmi c emulsion Administer 1 drop into both eyes every 12 (twelve) hours. Active Comment on above: Restasis 0.05 % eye drops in a dropperette fluticasone propionate 0.05 mg/actuat metered dose nasal spray (19 sources) Corticosteroid Start: 4 End: 5 take 2 spray(s) nasal route once daily fluticasone (Flonase) 50 MCG/ACT nasal spray Indications: Nasal polyp Administer 2 sprays into each nostril Daily Shake gently. Before first use, prime pump. After use, clean tip and replace cap. 48 g 3 08/24/2023 08/23/2024 Active Start: 09-15-2022 End: 09-15-2023 take 2 spray(s) nasal route in the morning fluticasone (Flonase) 50 MCG/ACT nasal spray Indications: Nasal polyp Administer 2 sprays into each nostril in the morning. Shake gently. Before first use, prime pump. After use, clean tip and replace cap.. 48 g 3 09/15/2022 09/15/2023 Active Start: 01-05-2017 Fluticasone Pr opionate Active 2 SPRAYS INTRANASAL Daily January 05, 2017 12:00am fluticasone (BIJU NASE) 50 mcg/actuation nasal spray fluticasone propionate 50 mcg/actuation nasal spray,suspension Active fluticasone prop ionate (FLONASE) 50 mcg/actuation nasal spray Administer into each nostril daily. Active Comment on above: fluticasone propiona te 50 mcg/actuation nasal spray,suspension 30 actuat fluticasone furoate 0.1 mg/actuat / vilanterol 0.025 mg/actuat dry powder inhaler (6 sources) Corticosteroid, beta2-Adrenergic Agonist Start: take 1 puff(s) by inhalation once daily Breo Ellipta 100-25 MCG/ACT aerosol powder Inhale 1 puff Daily 07/28/2023 Active Fluticasone Furoate-Vilanterol (1 source) Start: 024 Fluticasone Furoate-Vilantero l (Breo Ellipta) 50-25 mcg/dose blister with device Active INHALATION January 30, 2024 12:00am folic acid 1 mg / polysaccharide iron complex 150 mg / vitamin b12 0.025 mg oral capsule (1 source) Vitamin B12 Start: 020 take 1 capsule by mouth in the morning POLY-IRON 150 FORTE 150-25-1 mg-mcg-mg capsule Take 1 capsule by mouth in the morning. 10/16/2019 Active furosemide 40 mg oral tablet (3 sources) Loop Diuretic End: 023 take 1 tablet by mouth once daily furosemide (LASIX) 40 mg tablet Take 1 tablet (40 mg total) by mouth daily. Active Comment on above: furosemide 40 mg tab let gluc kong/chondro kong A/vit C/Mn (GLUCOSAMINE 1500 COMPLEX ORAL) (7 sources) gluc kong/chondro kong A/vit C/Mn (GLUCOSAMINE 1500 COMPLEX ORAL) Glucosamine 1500 Complex 1 TAB DAILY Active gluc kong/chondro kong A/vit C/Mn (GLUCOSAMINE 1500 COMPLEX ORAL) Glucosamine 1500 Complex 1 TAB DAILY 0 Active Comment on above: Glucosamine 1500 Com plex 1 TAB DAILY glucosamine sulfate 500 mg oral capsule (6 sources) take 2 tablets by mouth once daily Glucosamine 500 MG capsule Take 2 tablets by mouth 1 (one) time each day at the same time Active linseed oil 1000 mg oral capsule (10 sources) Start: 7 Flaxseed Oil 1,000 mg cap Linseed Oil Flaxseed Oil Active 1000 MG Oral Twice daily March 25, 2017 10:57am 03-25-2017 [facility] ([id number]) 03/25/2017 Active Comment on above: Linseed Oil Flaxseed Oil Active 1000 MG Oral Twice daily March 25, 2017 10:57am 03-25-2017 [facility] ([id number]) Magnesium (16 sources) take 1 mg by mouth every twenty-four hours Magnesium 250 mg tab 1 mg q 24 HR. Active take 1 tablet by mouth once shaheen y magnesium 250 MG tablet Take 1 tablet by mouth 1 (one) time each day at the same time. Active take 1 mg by mouth e very twenty-four hours magnesium 250 mg tablet 1 mg daily. Acti ve take 1 tablet by mouth once shaheen y magnesium 250 MG tablet Take 1 tablet by mouth 1 (one) time each day at the same time. 0 Active take 1 mg by mouth e very twenty-four hours Magnesium 250 mg tab 1 mg q 24 HR. 0 Act renetta Comment on above: 1 mg q 24 HR. magnesium oxide 250 mg oral tablet (10 sources) Start: 7 Magnesium Oxide 250 mg magnesium tab Magnesium Oxide Magnesium Oxide Active 250 MG Oral Daily January 05, 2017 3:53pm 01-05-2017 [facility] ([id number]) 01/05/2017 Active Comment on above: Magnesium Oxide Magn esium Oxide Active 250 MG Oral Daily January 05, 2017 3:53pm 01-05-2017 [facility] ([id number]) montelukast 10 mg oral tablet (19 sources) Leukotriene Receptor Antagonist Start: 7 End: 5 take 1 tablet by mouth once daily montelukast (SINGULAIR) 10 mg tablet Take 1 tablet (10 mg total) by mouth nightly. 11/01/2019 Active Comment on above: TAKE 1 TABLET BY TIERA TH EVERY DAY IN THE EVENING MULTI-VITAMIN ORAL (7 sources) take 1 tablet by mouth once daily MULTI-VITAMIN ORAL Multi Vitamin 1 tab daily Active take 1 tablet by mouth once shaheen y MULTI-VITAMIN ORAL Multi Vitamin 1 tab daily 0 Active Comment on above: Multi Vitamin 1 tab daily Multiple Vitamin (Multi-Vitamin) tablet (8 sources) Start: 01-21-2022 take 1 tablet by mouth in the morning Multiple Vitamin (Multi-Vitamin) tablet Take 1 tablet by mouth in the morning. 01/21/2022 Active Start: 01-21-2022 take 1 tablet by tiera th in the morning Multiple Vitamin (Multi-Vitamin) tablet Take 1 tablet by mouth in the morning. 0 01/21/2022 Active multivit-min/ferrous fumarat e (MULTI VITAMIN ORAL) (1 source) multivit-min/sachi anthony fumarate (MULTI VITAMIN ORAL) daily. Active Multivitamin (Multiple Vitamin) Tablet (3 sources) Start: 2 take 1 tablet by mouth once daily Multivitamin (Multiple Vitamin) Tablet Active 1 TAB PO Daily January 21, 2022 12:00am multivitamin (MULTIPLE VITAMINS) tablet (6 sources) Start: 2 multivitamin (MULTIPLE VITAMINS) tablet Multivitamin (Multiple Vitamin) Tablet Active 1 TAB PO Daily January 21, 2022 12:00am 01/21/2022 Active Start: 01-21-2022 multivitamin ( MULTIPLE VITAMINS) tablet Multivitamin (Multiple Vitamin) Tablet Active 1 TAB PO Daily January 21, 2022 12:00am 0 01/21/2022 Active Comment on above: Multivitamin (Multip le Vitamin) Tablet Active 1 TAB PO Daily January 21, 2022 12:00am phenylephrine hydrochloride 25 mg/ml ophthalmic solution (2 sources) alpha-1 Adrenergic Agonist Start: 07-27-2023 End: 07-27-2023 PHENYLephrine 2.5 % 1 Drop (AK-DILATE, KRYSTYNA-SYNEPHRINE) Start: 07-05-2022 End: 07-05-2022 PHENYLephrine 2.5 % 1 Drop ( AK-DILATE, KRYSTYNA-SYNEPHRINE) potassium chloride 10 meq extended release oral capsule (6 sources) End: 12-19-2023 potassium chloride ER (Micro-K) 10 MEQ ER capsule Take 10 mEq by mouth 12/19/2023 Discontinued Comment on above: potassium chloride E R 10 mEq capsule,extended release pregabalin 75 mg oral capsule (20 sources) Start: 01-05-2017 End: 09-29-2023 take 1 capsule by mouth twice daily Pregabalin (Lyrica) 75 mg capsule Active 75 MG PO Twice daily 180 90 September 29, 2023 9:56am Comment on above: Lyrica 75 mg capsule proparacaine hydrochloride 5 mg/ml ophthalmic solution (1 source) Local Anesthetic Start: 07-27-2023 End: 07-27-2023 proparacaine 0.5 % 1 Drop (ALCAINE) spironolactone 25 mg oral tablet (9 sources) Aldosterone Antagonist Start: 01-05-2017 End: 07-05-2022 take 1 tablet by mouth in the morning spironolactone (ALDACTONE) 25 mg tablet Take 1 tablet (25 mg total) by mouth in the morning. 09/02/2019 Active End: 12-19-2023 take 1 tablet by mouth once spironolactone (Aldactone) 25 MG tablet Take 25 mg by mouth 1 (one) time 12/19/2023 Discontinued Comment on above: spironolactone 25 mg tablet SUMAtriptan 100 mg oral tablet (7 sources) Serotonin-1b and Serotonin-1d Receptor Agonist Start: 07-13-19 take 1 tablet by mouth every twelve hours Imitrex 100 MG tablet 100 mg every 12 (twelve) hours 12/20/2022 Active tropicamide 10 mg/ml ophthalmic solution (2 sources) Anticholinergic Start: 07-27-19 End: 07-27-19 tropicamide 1 % 1 Drop (MYDRIACYL) Start: 07-05-2022 End: 07-05-2022 tropicamide 1 % 1 Drop (MYDR IACYL) Vitamin B Complex (8 sources) take 1 tablet by tiera th once daily vitamin B complex (B COMPLEX 1 ORAL) B Complex-Vitamin B12 1 tab daily Active take 1 tablet by mouth in the mo rning b complex vitamins tablet Take 1 tablet by mouth in the morning. Active take 1 tablet by mouth once shaheen y vitamin B complex (B COMPLEX 1 ORAL) B Complex-Vitamin B12 1 tab daily 0 Active Comment on above: B Complex-Vitamin B1 2 1 tab daily vitamin b12 1 mg extended release oral tablet (9 sources) Vitamin B12 Start: 2 take 1 tablet by mouth once daily Cyanocobalamin (Vitamin B-12) (Vitamin B-12) 1,000 mcg Tablet Extended Release Active 1000 MCG PO Daily January 21, 2022 12:00am vitamin b6 100 mg oral tablet (12 sources) Start: 2 take 1 tablet by mouth once daily Pyridoxine (Vitamin B6) (Vitamin B-6) 100 mg Tablet Active 100 MG PO Daily January 21, 2022 12:00am warfarin sodium 7.5 mg oral tablet (19 sources) Vitamin K Antagonist Start: 7 Warfarin Active 7.5 - 10 MG PO As Directed March 16, 2017 1:00am Dosing per [facility]:M W F 5 mg rest of week 7.5mg warfarin (COUMAD IN) 5 mg tablet warfarin 5 mg tablet Take by oral route. Active Comment on above: warfarin 5 mg tablet Take by oral route. zinc gluconate 77 mg oral lozenge (6 sources) Zinc 10 MG lozen ge Zinc Active Completed/Discontinued Medications Medication Drug Class(es) Dates Sig (Normalized) Sig (Original) anastrozole 1 mg oral tablet (20 sources) Aromatase Inhibitor Start: 01-05-2017 End: 12-19-2023 take 1 mg by mouth once daily Anastrozole Discontinued 1 MG PO Daily June 04, 2019 11:47am July 21, 2020 9:35am Comment on above: anastrozole 1 mg tab let apixaban 5 mg oral tablet (3 sources) Factor Xa Inhibitor Start: 01-12-2017 End: 03-16-2017 take 2 tablets by mouth twice daily, then take 1 tablet by mouth twice daily Apixaban (Eliquis) 5 mg Tablet Discontinued 1 TAB PO Twice daily 74 January 12, 2017 12:00am March 16, 2017 3:02pm take 10 mg by mouth twice daily for 7 days; then 5 mg twice daily benoxinate hydrochloride 4 mg/ml / fluorescein sodium 3 mg/ml ophthalmic solution (4 sources) Diagnostic Dye Start: 09-05-2023 End: 09-05-2023 fluorescein-benoxi jarret 0.3-0.4 % 1 Drop (FLURESS) Start: 07-27-2023 End: 07-27-2023 fluorescein-benoxinate 0.3-0 .4 % 1 Drop (FLURESS) Start: 01-17-2023 End: 01-17-2023 fluorescein-benoxinate 0.3-0 .4 % drop 1 Drop Start: 07-05-2022 End: 07-05-2022 fluorescein-benoxinate 0.25- 0.4 % 1 Drop (FLURESS) 5 ml bupivacaine hydrochloride 5 mg/ml injection (4 sources) Amide Local Anesthetic Start: 12-19-2023 End: 12-19-2023 bupivacaine PF (Marcaine) 0.5 % injection 1 mL Start: 12-19-2023 End: 12-19-2023 1 mL, Injection, Once PRN Pr ocedure, Starting on 12/19/23 at 1032, For 1 dose colchicine 0.6 mg oral tablet (3 sources) Start: 02-28-2017 End: 01-17-2018 take 0.6 mg by mouth once daily Colchicine Discontinued 0.6 MG PO Daily February 28, 2017 1:00am January 17, 2018 3:32pm esomeprazole 40 mg delayed release oral capsule (6 sources) Proton Pump Inhibitor Start: 01-05-2017 End: 01-21-2022 take 40 mg by mouth once daily Esomeprazole Magnesium Discontinued 40 MG PO Daily March 02, 2018 4:50pm January 21, 2022 10:03am latanoprost 0.05 mg/ml ophthalmic solution (2 sources) Prostaglandin Analog Start: 02-22-2019 End: 07-05-2022 take 1 drop(s) into the eye(s) once daily at bedtime latanoprost (XALATAN) 0.005 % ophthalmic solution Use 1 Drop in both eyes daily at bedtime. 1 Bottle 0 02/22/2019 07/05/2022 Discontinued Comment on above: Use 1 Drop in both e yes daily at bedtime. 1 ml methylPREDNISolone acetate 40 mg/ml injection (4 sources) Corticosteroid Start: 12-19-2023 End: 12-19-2023 methylPREDNISolone acetate (DEPO-Medrol) injection 40 mg Start: 12-19-2023 End: 12-19-2023 40 mg, Intra-articular, Once PRN Procedure, Starting on 12/19/23 at 1032, For 1 dose pravastatin sodium 40 mg oral tablet (6 sources) HMG-CoA Reductase Inhibitor Start: 01-05-2017 End: 12-19-2023 take 40 mg by mouth once daily Pravastatin Discontinued 40 MG PO Daily January 05, 2017 12:00am March 12, 2020 10:46am prednisoLONE acetate 10 mg/ml ophthalmic suspension (2 sources) Corticosteroid Start: 02-27-2019 End: 07-05-2022 prednisoLONE acetate (PRED FORTE) 1 % ophthalmic suspension 1 drop in the operative eye 4 times daily for 10 days after surgery, then taper as directed. 1 Bottle 1 02/27/2019 07/05/2022 Discontinued Comment on above: 1 drop in the operat renetta eye 4 times daily for 10 days after surgery, then taper as directed. rivaroxaban 20 mg oral tablet (15 sources) Factor Xa Inhibitor Start: 01-05-2017 End: 02-03-2017 take 1 tablet by mouth twice daily [...] 2017 8:09am Start after completing BID dosing 60 actuat tiotropium 0.0025 mg/actuat inhalation spray (16 sources) Anticholinergic Start: 01-05-2017 End: 01-30-2024 take 1 puff(s) by inhalation every twenty-four hours Tiotropium [place]idan (Spiriva Respimat) 2.5 mcg/actuation Mist Discontinued 2 PUFF INHALATION Q24H January 05, 2017 12:00am January 30, 2024 10:18am tiotropium (SPIR EUNICE RESPIMAT) 2.5 mcg/actuation inhaler Spiriva Respimat 2.5 mcg/actuation solution for inhalation Active End: 12-19-2023 take 2 puff(s) by inhalation in the morning tiotropium (Spiriva Respimat) 2.5 MCG/ACT inhaler Inhale 2 puffs in the morning and 2 puffs in the evening. 12/19/2023 Discontinued tiotropium (SPIR EUNICE RESPIMAT) 2.5 mcg/actuation inhaler Spiriva Respimat 2.5 mcg/actuation solution for inhalation 0 Active tiotropium bromi de 2.5 mcg/actuation mist Inhale 2 (two) times a day. Active Comment on above: Spiriva Respimat 2.5 mcg/actuation solution for inhalation Problems Active Problems Problem Classification Problem Date Documented Da te Episodic/Chronic Acquired foot deformities (20 sources) Acquired hammer toe of left foot; 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: [Other hammer toe(s) (acquired), left foot] Onset: 9 Resolved: 3 07-05-2022 Chronic Cancer of breast (20 sources) Malignant tumor of breast ; 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: [Malignant neoplasm of unspecified site of right female breast] Onset: 3 Resolved: 3 01-18-2018 Chronic Cataract (20 sources) After-cataract of bilateral eyes; 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: [Other secondary cataract, bilateral] Onset: 9 Resolved: 3 09-18-2019 Chronic Chronic obstructive pulmonary disease and bronchiectasis (16 sources) Chronic obstructive lung disease; 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: [Chronic obstructive pulmonary disease, unspecified] Onset: 3 Resolved: 3 02-27-2019 Chronic Disorders of lipid metabolism (19 sources) Mixed hyperlipidemia; 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: [Mixed hyperlipidemia] Onset: 3 Resolved: 3 07-05-2022 Chronic Fracture of upper limb (4 sources) Other fractures of lower end of right radius, subsequent encounter for closed fracture with routine healing; 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: [OTH FX LOW RT RADUS SUB CLOS FX RTN] Onset: 3 Episodic Glaucoma (20 sources) Primary open angle glaucoma; 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: [Primary open-angle glaucoma, bilateral, mild stage] Onset: 9 Resolved: 3 02-22-2019 Chronic Other aftercare (8 sources) Encounter for therapeutic drug level monitoring; 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: [Encounter for therapeutic drug monitoring] Onset: 3 01-21-2022 Episodic Other aftercare (1 source) intermediate project manager (current) use of anticoagulants; 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: [JAIL CURRNT USE ANTICOAGULANTS] Onset: 3 Episodic Other bone disease and musculoskeletal deformities (6 sources) Avascular necrosis of bone; 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: [Other osteonecrosis, left foot] Onset: 4 08-18-2023 Chronic Other circulatory disease (20 sources) Vasculitis; 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: [Arteritis, unspecified] Onset: 7 Resolved: 3 07-21-2017 Chronic Other circulatory disease (4 sources) Arteritis, unspecified; 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: [Arteritis, unspecified] Onset: 3 01-21-2022 Chronic Other circulatory disease (6 sources) Hypersensitivity angiitis; 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] Onset: 4 08-18-2023 Chronic Other connective tissue disease (2 sources) Trochanteric bursitis of right hip; 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: [Trochanteric bursitis, right hip] 12-19-2023 Episodic Other connective tissue disease (2 sources) Tendinitis of right gluteal tendon; 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: [Gluteal tendinitis, right hip] 12-19-2023 Episodic Other diseases of veins and lymphatics (1 source) Lymphedema, not elsewhere classified; 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: [Lymphedema, not elsewhere classified] Onset: 4 Chronic Other diseases of veins and lymphatics (8 sources) Lymphedema; 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: [Lymphedema, not elsewhere classified] Onset: 4 08-18-2023 Chronic Other eye disorders (1 source) Disorder of lacrimal gland; 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: [Dry eye syndrome of bilateral lacrimal glands] 04-18-2024 Episodic Other inflammatory condition of skin (3 sources) Cutaneous leukocytoclastic angiitis; 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: [Other vasculitis limited to the skin] 07-19-2018 Episodic Other inflammatory condition of skin (3 sources) Other vasculitis limited to the skin; 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: [Other specified hypersensitivity angiitis] 01-21-2022 Episodic Other lower respiratory disease (3 sources) Multiple nodules of lung; 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: [Other nonspecific abnormal finding of lung field] 03-25-2017 Episodic Other lower respiratory disease (3 sources) Other nonspecific abnormal finding of lung field; 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: [Other nonspecific abnormal finding of lung field] 01-21-2022 Episodic Other nervous system disorders (3 sources) Neuropathy; 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: [Polyneuropathy, unspecified] 01-21-2021 Chronic Other nervous system disorders (4 sources) Polyneuropathy, unspecified; 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: [Mononeuritis of unspecified site] 01-21-2022 Chronic Other nervous system disorders (8 sources) Chronic pain; 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: [Other chronic pain] Onset: 7 Resolved: 3 09-14-2022 Chronic Other non-traumatic joint disorders (2 sources) Hip pain; 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: [Pain in right hip] 12-19-2023 Episodic Other non-traumatic joint disorders (2 sources) Pain in right shoulder; 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: [Pain in joint, shoulder region] 04-08-2024 Episodic Other nutritional; endocrine; and metabolic disorders (3 sources) Hypercalcemia; 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: [Hypercalcemia] 03-25-2017 Chronic Other nutritional; endocrine; and metabolic disorders (3 sources) Hypercalcemia; 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: [Hypercalcemia] 01-21-2022 Chronic Other nutritional; endocrine; and metabolic disorders (3 sources) H/O: metabolic disorder; 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: [Personal history of other endocrine, nutritional and metabolic disease] 07-19-2018 Episodic Other nutritional; endocrine; and metabolic disorders (3 sources) Personal history of other endocrine, nutritional and metabolic disease; 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: [Personal history of other endocrine, metabolic, and immunity disorders] 01-21-2022 Episodic Peripheral and visceral atherosclerosis (14 sources) Peripheral vascular disease; 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: [Peripheral vascular disease, unspecified] Onset: 9 Resolved: 3 07-05-2022 Chronic Phlebitis; thrombophlebitis and thromboembolism (1 source) Chronic embolism and thrombosis of unspecified deep veins of unspecified lower extremity; 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: [CHR EMB THROMB UNS DP VN UNS LW EXT] Onset: 2 Chronic Pulmonary heart disease (20 sources) Pulmonary embolism; 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: [Other pulmonary embolism without acute cor pulmonale] Onset: 3 Resolved: 3 02-03-2017 Episodic Residual codes; unclassified (6 sources) Device in situ; 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: [Presence of functional implant, unspecified] Onset: 08-18-2023 Chronic Spondylosis; intervertebral disc disorders; other back problems (2 sources) Neck pain; 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: [Cervicalgia] 04-09-2024 Episodic Unclassified (1 source) Unknown / UNK(Unknown) Onset: Past or Other Problems Problem Classification Problem Date Documented Da te Episodic/Chronic Acquired foot deformities (6 sources) Acquired deformity of toe; 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: [Other deformities of toe(s) (acquired), left foot] Onset: 08-18-2023 08-18-2023 Episodic Blindness and vision defects (15 sources) Bilateral hyperopia of eyes; 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: [Hypermetropia, bilateral] Onset: 02-22-2019 Resolved: 09-14-2022 02-22-2019 Episodic Cancer of breast (6 sources) History of malignant neoplasm of breast; 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: [Personal history of malignant neoplasm of breast] Onset: 08-18-2023 08-18-2023 Episodic Cardiac dysrhythmias (15 sources) Palpitations; 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: [Palpitations] Onset: 04-29-2022 Resolved: 09-14-2022 07-05-2022 Episodic Deficiency and other anemia (14 sources) Anemia; 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: [Anemia, unspecified] Onset: 04-29-2022 Resolved: 09-14-2022 07-05-2022 Episodic Deficiency and other anemia (14 sources) Iron deficiency anemia; 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: [Iron deficiency anemia, unspecified] Onset: 01-21-2022 Resolved: 09-14-2022 07-05-2022 Episodic Deficiency and other anemia (1 source) Anemia, unspecified; 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: [ANEMIA UNSPECIFIED] Onset: 04-29-2022 Episodic Diabetes mellitus without complication (15 sources) Abnormal glucose level; 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: [Other abnormal glucose] Onset: 04-29-2022 Resolved: 09-14-2022 07-05-2022 Episodic E Codes: Fall (15 sources) Fall on same level from slipping, tripping or stumbling ; 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: [Fall on same level from slipping, tripping and stumbling without subsequent striking against object, initial encounter] Onset: 03-22-2022 Resolved: 09-14-2022 07-05-2022 Episodic E Codes: Natural/environment (6 sources) Exposure to other specified factors, initial encounter; 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: [Unspecified accident] Onset: 01-28-2017 07-05-2022 Episodic Mood disorders (1 source) Mood disorders Onset: 02-12-2020 02-12-2020 Mycoses (8 sources) Candidiasis of mouth; 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: [Candidal stomatitis] Onset: 08-10-2018 Resolved: 09-14-2022 09-14-2022 Episodic Osteoarthritis (20 sources) Bilateral osteoarthritis of knees; 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: [Bilateral primary osteoarthritis of knee] Onset: 09-06-2016 Resolved: 09-14-2022 03-12-2020 Chronic Other aftercare (16 sources) Drug therapy finding; 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: [Encounter for therapeutic drug level monitoring] Onset: 12-05-2018 Resolved: 09-14-2022 01-22-2019 Episodic Other aftercare (14 sources) Long-term current use of anticoagulant; 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: [retirement (current) use of anticoagulants] Onset: 02-02-2019 Resolved: 09-14-2022 07-05-2022 Episodic Other aftercare (15 sources) Long-term current use of drug therapy; 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: [Other intermediate manager (current) drug therapy] Onset: 03-22-2022 Resolved: 09-14-2022 07-05-2022 Episodic Other aftercare (1 source) Other assisted (current) drug therapy; 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: [OTH SUPERVISOR GARMENT MANUFACTURING CURRENT DRUG THERAPY] Onset: 03-22-2022 Episodic Other bone disease and musculoskeletal deformities (6 sources) Disorder of bone; 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: [Other specified disorders of bone, ankle and foot] Onset: 08-18-2023 Resolved: 08-18-2023 08-18-2023 Episodic Other circulatory disease (14 sources) Elevated blood-pressure reading without diagnosis of hypertension; 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: [Elevated blood-pressure reading, without diagnosis of hypertension] Onset: 04-29-2022 Resolved: 09-14-2022 07-05-2022 Episodic Other circulatory disease (1 source) Elevated blood-pressure reading, without diagnosis of hypertension; 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: [ELEVATED BP READING W/O DX HTN] Onset: 04-29-2022 Episodic Other connective tissue disease (8 sources) Artificial knee joint present; 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: [Presence of unspecified artificial knee joint] Onset: 02-14-2020 Resolved: 09-14-2022 09-14-2022 Chronic Other connective tissue disease (6 sources) Pain in left foot; 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: [Pain in left foot] Onset: 11-07-2018 07-05-2022 Episodic Other connective tissue disease (6 sources) Pain in right foot; 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: [Pain in right foot] Onset: 02-07-2019 07-05-2022 Episodic Other diseases of veins and lymphatics (20 sources) Peripheral venous insufficiency; 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: [Venous insufficiency (chronic) (peripheral)] Onset: 08-27-2021 Resolved: 09-14-2022 07-05-2022 Episodic Other ear and sense organ disorders (8 sources) Impacted cerumen of bilateral ears; 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: [Impacted cerumen, bilateral] Onset: 09-15-2022 09-15-2022 Episodic Other eye disorders (15 sources) Epithelial basement membrane dystrophy; 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)] Onset: 02-22-2019 Resolved: 09-14-2022 02-22-2019 Episodic Other inflammatory condition of skin (4 sources) Vasculitis limited to the skin, unspecified; 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: [VASCULITIS LIMITED TO THE SKIN, UNSPECIFIED] Onset: 02-10-2017 Episodic Other nervous system disorders (8 sources) Difficulty walking; 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: [Difficulty in walking, not elsewhere classified] Onset: 02-14-2020 Resolved: 09-14-2022 09-14-2022 Chronic Other non-traumatic joint disorders (14 sources) Impingement of right ankle joint; 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: [Other specified joint disorders, right ankle and foot] Onset: 01-03-2019 Resolved: 09-14-2022 07-05-2022 Episodic Other non-traumatic joint disorders (7 sources) Pain of right wrist; 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: [Pain in right wrist] Onset: 03-19-2022 07-05-2022 Episodic Other non-traumatic joint disorders (2 sources) Pain in right wrist; 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: [PAIN IN RIGHT WRIST] Onset: 03-22-2022 Episodic Other non-traumatic joint disorders (8 sources) Pain in right knee; 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: [Pain in joint, lower leg] Onset: 01-08-2018 Resolved: 09-14-2022 09-14-2022 Episodic Other nutritional; endocrine; and metabolic disorders (14 sources) H/O: Disorder; 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: [Personal history of other endocrine, nutritional and metabolic disease] Onset: 07-05-2022 Resolved: 09-14-2022 07-05-2022 Episodic Other screening for suspected conditions (not mental disorders or infectious disease) (20 sources) Patient encounter status; 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: [Encounter for screening for osteoporosis] Onset: 07-05-2022 Resolved: 09-14-2022 07-19-2018 Episodic Other upper respiratory disease (8 sources) Polyp of nasal cavity and/or nasal sinus; 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: [Nasal polyp, unspecified] Onset: 08-10-2018 09-14-2022 Episodic Phlebitis; thrombophlebitis and thromboembolism (19 sources) Embolism from thrombosis of vein of lower extremity ; 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: [Acute embolism and thrombosis of unspecified deep veins of unspecified lower extremity] Onset: 02-02-2019 Resolved: 09-14-2022 07-05-2022 Episodic Residual codes; unclassified (14 sources) Acquired absence of breast; 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] Onset: 01-03-2019 Resolved: 09-14-2022 07-05-2022 Episodic Residual codes; unclassified (14 sources) Localized edema; 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: [Localized edema] Onset: 09-03-2021 Resolved: 09-14-2022 07-05-2022 Episodic Sprains and strains (15 sources) Sprain of right wrist; 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: [Unspecified sprain of right wrist, initial encounter] Onset: 03-22-2022 Resolved: 09-14-2022 07-05-2022 Episodic Superficial injury; contusion (7 sources) Right wrist contusion; 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: [Contusion of right wrist, initial encounter] Onset: 03-22-2022 07-05-2022 Episodic Unclassified (1 source) HEALTH MAINTENANCE 64645 Z00.00 Onset: 01-28-2017 Urinary tract infections (8 sources) Acute cystitis; 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: [Acute cystitis without hematuria] Onset: 10-19-2019 Resolved: 09-14-2022 09-14-2022 Episodic Results Test Name Value Interpretation Reference Range Facility MM screening mammo LT w/CADo n 01-23-2024 MM screening mammo LT w/CAD [facility] [place] [address] Mammography Report Signed Patient: Myla Pollcak MR#: [id number] : 1950 Acct:[id number] Age/Sex: 73 / F ADM Date: 01/23/24 Loc: XT Room: Type: [facility] Attending Dr: Kacie Garay MD Copies to: MD Kenyetta Degroot MD Hammad M Rashid, MD Ordering Provider: Kacie Garay MD Date of Service: 01/23/24 MM/MM screening mammo LT w/CAD: history of breast cancer LEFT Screening Full Field digital mammogram with 3-D imaging. Full field digital CC and MLO imaging performed. CAD utilized. COMPARISON: 01/20/2023 HISTORY: Screening. Prior right mastectomy for carcinoma. BREAST COMPOSITION: Scattered fibroglandular densities of the breast parenchyma identified BREAST CALCIFICATIONS: Benign calcifications present. VASCULAR CALCIFICATIONS: Present ARCHITECTURAL DISTORTION: None BREAST NODULE: None AXILLARY LYMPH NODES: Normal POSTSURGICAL CHANGES: None MM/MM screening mammo LT w/CAD IMPRESSION: No mammographic evidence of malignancy. Routine follow-up recommended in one year. RESULT CODE: 2 Benign Findings(s) DENSITY CODE: 2 (approximately 25-50% glandular) FOLLOW UP: 1YR THE FALSE-NEGATIVE RATE OF MAMMOGRAPHY IS APPROXIMATELY 10%. IMAGING OF A PALPABLE ABNORMALITY MUST BE BASED ON CLINICAL GROUNDS. PATIENT WAS ENTERED INTO A REMINDER SYSTEM WITH A TARGET DUE DATE FOR THE NEXT MAMMOGRAM. Impression dictated by: José Sandoval M.D.01/23/2024 10:09 AM Dictation Location: [facility] Transcribed By: [facility] 01/23/24 1009 Dictated By: José Sandoval DO 01/23/24 1008 Signed By: 01/23/24 1009 Normal [facility] No Panel Informationon 12-18 BETO Saba 12/19/2023 10:36 AM L Inj/Asp: R greater trochanteric bursa on 12/19/2023 10:32 AM Indications: pain Details: 21 G needle, lateral approach Medications: 40 mg methylPREDNISolone acetate 40 MG/ML; 1 mL bupivacaine PF 0.5 % Outcome: tolerated well, no immediate complications UTILIZING ASEPTIC TECHNIQUE PT GIVEN INJECTION IN RIGHT HIP BURSA NEUROVASC INTACT S/P INJ, TOLERATED WELL Procedure, treatment alternatives, risks and benefits explained, specific risks discussed. Consent was given by the patient. Patient was prepped and draped in the usual sterile fashion. [facility] LASER TRABECULOPLASTY OD (RI GHT EYE)on 09-05-2023 [facility] OCT OPTIC NERVE CIRRUS OU (B OTH EYES)on 07-27-2023 [facility] Radiology Study observation (narrative) [facility] VISUAL FIELD 24-2 OU (BOTH E YES)on 07-27-2023 [facility] Radiology Study observation (narrative) [facility] MRI WRIST RT WO CONon 2022 MRI WRIST RT WO CON EXAM: MRI WRIST RT W O CON HISTORY: Closed fracture of distal end [...] DINO GREGORY Date: 2022-06-20 13:14 Normal [facility] INSULINon 04-29-2022 Insulin 15.6 uIU/mL Normal 2.6-24.9 [facility] Comment on above: Performed By: #### I NSULIN #### [facility] [address] [place] [address] Dr. Marizol Macedo CBC AUTO DIFFon 04-28-2022 BASO # 0.0 103/ul Normal 0.0-0.1 [facility] Comment on above: Performed By: #### C BC #### [facility] [address] [place] [address] Dr. Marizol Macedo Basophils/100 WBC (Bld) 0.3 % Normal 0.2-2.0 [facility] Comment on above: Performed By: #### C BC #### [facility] [address] [place] [address] Dr. Marizol Macedo EO # 0.1 103/ul Normal 0.0-0.7 [facility] Comment on above: Performed By: #### C BC #### [facility] [address] [place] [address] Dr. Marizol Macedo Eosinophils/100 WBC (Bld) 1.0 % Normal 0.9-7.0 [facility] Comment on above: Performed By: #### C BC #### [facility] [address] [place] [address] Dr. Marizol Macedo Erythrocyte distribution width (RBC) [Ratio] 12.6 % Normal 11.0-15.0 [place] Comment on above: Performed By: #### C BC #### [facility] [address] [place] [address] Dr. Marizol Macedo Hematocrit (Bld) [Volume fraction] 43.4 % Normal 36.0-48.0 [place] Comment on above: Performed By: #### C BC #### [facility] [address] [place] [address] Dr. Marizol Macedo Hemoglobin (Bld) [Mass/Vol] 14.1 g/dL Normal 12.0-16.0 [place] Comment on above: Performed By: #### C BC #### [facility] [address] [place] [address] Dr. Marizol Macedo IG # 0.02 10e3/ul Normal 0.00-0.03 [place] Comment on above: Performed By: #### C BC #### [facility] [address] [place] [address] Dr. Marizol Macedo IG % 0.3 % Normal 0.0-0.5 [place] Comment on above: Performed By: #### C BC #### [facility] [address] [place] [address] Dr. Marizol Macedo LYMPH # 2.4 103/ul Normal 1.2-3.8 [place] Comment on above: Performed By: #### C BC #### [facility] [address] [place] [address] Dr. Marizol Macedo Lymphocytes/100 WBC (Bld) 30.9 % Normal 20.5-60.0 [place] Comment on above: Performed By: #### C BC #### [facility] [address] [place] [address] Dr. Marizol Macedo MANUAL DIFF REQ NO Normal [facility] Comment on above: Performed By: #### C BC #### [facility] [address] [place] [address] Dr. Marizol Macedo MCH (RBC) [Entitic mass] 30.7 pg Normal 26.7-34.0 [facility] Comment on above: Performed By: #### C BC #### [facility] [address] [place] [address] Dr. Marizol Macedo MCHC (RBC) [Mass/Vol] 32.5 g/dL Normal 29.9-35.2 [facility] Comment on above: Performed By: #### C BC #### [facility] [address] [place] [address] Dr. Marizol Macedo MCV (RBC) [Entitic vol] 94.3 fL Normal 81.0-99.0 [facility] Comment on above: Performed By: #### C BC #### [facility] [address] [place] [address] Dr. Marizol Macedo MONO # 0.4 103/ul Normal 0.3-0.8 [place] Comment on above: Performed By: #### C BC #### [facility] [address] [place] [address] Dr. Marizol Macedo Monocytes/100 WBC (Bld) 5.4 % Normal 1.7-12.0 [facility] Comment on above: Performed By: #### C BC #### [facility] [address] [place] [address] Dr. Marizol Macedo NEUT # 4.9 103/ul Normal 1.4-6.5 [facility] Comment on above: Performed By: #### C BC #### [facility] [address] [place] [address] Dr. Marizol Macedo Neutrophils/100 WBC (Bld) 62.1 % Normal 43.0-75.0 [facility] Comment on above: Performed By: #### C BC #### [facility] [address] [place] [address] Dr. Marizol Macedo Platelet mean volume (Bld) [Entitic vol] 10.2 fL Normal 9.5-13.5 [facility] Comment on above: Performed By: #### C BC #### [facility] [address] [place] [address] Dr. Marizol Macedo PLT 279 103/ul Normal 150-450 [facility] Comment on above: Performed By: #### C BC #### [facility] [address] [place] [address] Dr. Marizol Macedo RBC 4.60 106/ul Normal 4.20-5.40 [place] Comment on above: Performed By: #### C BC #### [facility] [address] [address] [address] Marizol Macedo WBC 7.8 103/ul Normal 4.0-11.0 [place] Comment on above: Performed By: #### C BC #### [facility] [address] [place] [address] Dr. Marizol Macedo FREE THYROXINE INDEX T7on FTI 3.50 Normal 1.30-4.50 [place] Comment on above: Performed By: #### L IPID, T7, CMP, TSH #### [facility] [address] [place] [address] Dr. Marizol Macedo T3U 35.0 % Normal 30.0-39.0 [place] Comment on above: Performed By: #### L IPID, T7, CMP, TSH #### [facility] [address] [place] [address] Dr. Marizol Macedo T4 [Mass/Vol] 10.00 ug/dL Normal 4.80-13.90 [facility] Comment on above: Performed By: #### L IPID, T7, CMP, TSH #### [facility] [address] [place] [address] Dr. Marizol Macedo GLYCOHEMOGLOBIN A1Con 2022 ADA RECOMMENDATION SEE BELOW Normal [facility] Comment on above: Result Comment: ADA RECOMMENDED LIMIT 4.0 - 6.0 ADA THERAPEUTIC TARGET < 7.0 ACTION SUGGESTED > 7.0 Performed By: #### A 1C #### [facility] [address] [place] [address] Dr. Marizol Macedo Glucose [Mass/Vol] 114 mg/dL Normal [facility] Comment on above: Performed By: #### A 1C #### [facility] [address] [address] [address] Marizol Macedo HbA1c (Bld) [Mass fraction] 5.6 % Normal 4.5-6.2 [place] Comment on above: Performed By: #### A 1C #### [facility] [address] [address] [address] Marizol Macedo IRONon 04-28-2022 Iron [Mass/Vol] 136.0 ug/dL Normal 50.0-170.0 [facility] Comment on above: Performed By: #### I CECELIA #### [facility] [address] [address] [address] Marizol Macedo LIPID PROFILEon 04-28-2022 CHOL-HDL RATIO NORM SEE BELOW Normal [facility] Comment on above: Result Comment: 3.3 - 4.4 LOW RISK 4.4 - 7.1 AVERAGE RISK 7.1 - 11.0 MODERATE RISK >11.0 HIGH RISK Performed By: #### L IPID, T7, CMP, TSH #### [facility] [address] [address] [address] Marizol Macedo Cholesterol [Mass/Vol] 134 mg/dL Normal <=200 [place] Comment on above: Performed By: #### L IPID, T7, CMP, TSH #### [facility] [address] [address] [address] Mariozl Macedo Cholesterol in HDL [Mass/Vol] 69 mg/dL Critically high 40-60 [place] Comment on above: Performed By: #### L IPID, T7, CMP, TSH #### [facility] [address] [address] [address] Marizol Macedo Cholesterol in LDL [Mass/Vol] 46.6 mg/dL Normal [place] Comment on above: Performed By: #### L IPID, T7, CMP, TSH #### [facility] [address] [address] [address] Marizol Macedo Cholesterol.total/Ch olesterol in HDL [Mass ratio] 1.9 {ratio} Normal [place] Comment on above: Performed By: #### L IPID, T7, CMP, TSH #### [facility] [address] [address] [address] Marizol Macedo HDL NORMAL > or = 60 mg/dl - LO W CARDIOVASCULAR RISK <40 mg/dl - HIGH CARDIOVASCULAR RISK Normal [place] Comment on above: Performed By: #### L IPID, T7, CMP, TSH #### [facility] [address] [address] [address] Marizol Macedo LDL CALC NORMAL SEE BELOW Normal [facility] Comment on above: Result Comment: <100 mg/dl OPTIMAL 100 - 129 mg/dl NEAR OR ABOVE OPTIMAL 130 - 159 mg/dl BORDERLINE HIGH 160 - 189 mg/dl HIGH >190 mg/dl VERY HIGH Performed By: #### L IPID, T7, CMP, TSH #### [facility] [address] [address] [address] Marizol Macedo Triglyceride [Mass/Vol] 92 mg/dL Normal <=150 [place] Comment on above: Performed By: #### L IPID, T7, CMP, TSH #### [facility] [address] [address] [address] Marizol Macedo VLDL CALC 18.4 mg/dL Normal [place] Comment on above: Performed By: #### L IPID, T7, CMP, TSH #### [facility] [address] [address] [address] Marizol Macedo PROF 14(COMP METB)on 023 Albumin [Mass/Vol] 3.9 g/dL Normal 3.4-5.0 [facility] Comment on above: Performed By: #### L IPID, T7, CMP, TSH #### [facility] [address] [address] [address] Marizol Macedo Albumin/Globulin [Mass ratio] 1.1 {ratio} Normal [place] Comment on above: Performed By: #### L IPID, T7, CMP, TSH #### [facility] [address] [address] [address] Marizol Macedo ALP [Catalytic activity/Vol] 97 U/L Normal 46-116 [place] Comment on above: Performed By: #### L IPID, T7, CMP, TSH #### [facility] [address] [address] [address] Marizol Macedo ALT [Catalytic activity/Vol] 57 U/L Normal 14-59 [place] Comment on above: Performed By: #### L IPID, T7, CMP, TSH #### [facility] [address] [address] [address] Marizol Macedo Anion gap [Moles/Vol] 11.9 mmol/L Normal [place] Comment on above: Performed By: #### L IPID, T7, CMP, TSH #### [facility] [address] [address] [address] Marizol Macedo AST [Catalytic activity/Vol] 35 U/L Normal 15-37 [place] Comment on above: Performed By: #### L IPID, T7, CMP, TSH #### [facility] [address] [place] [address] Dr. Marizol Macedo Bilirubin [Mass/Vol] 0.6 mg/dL Normal 0.2-1.0 [place] Comment on above: Performed By: #### L IPID, T7, CMP, TSH #### [facility] [address] [address] [address] Marizol Macedo Calcium [Mass/Vol] 9.8 mg/dL Normal 8.5-10.1 [facility] Comment on above: Performed By: #### L IPID, T7, CMP, TSH #### [facility] [address] [address] [address] Marizol Macedo Chloride [Moles/Vol] 103 mmol/L Normal 98-107 [facility] Comment on above: Performed By: #### L IPID, T7, CMP, TSH #### [facility] [address] [address] [address] Marizol Macedo CO2 [Moles/Vol] 28.0 mmol/L Normal 21.0-32.0 [facility] Comment on above: Performed By: #### L IPID, T7, CMP, TSH #### [facility] [address] [address] [address] Marizol Macedo Creatinine [Mass/Vol] 0.75 mg/dL Normal 0.55-1.02 [facility] Comment on above: Performed By: #### L IPID, T7, CMP, TSH #### [facility] [address] [address] [address] Marizol Macedo EGFR-AF PANAMANIAN >60 Normal >=60 [facility] Comment on above: Performed By: #### L IPID, T7, CMP, TSH #### [facility] [address] [address] [address] Marizol Macedo EGFR-NON AF PANAMANIAN >60 Normal >=60 [facility] Comment on above: Performed By: #### L IPID, T7, CMP, TSH #### [facility] [address] [address] [address] Marizol Macedo Globulin (S) [Mass/Vol] 3.5 g/dL Normal [place] Comment on above: Performed By: #### L IPID, T7, CMP, TSH #### [facility] [address] [address] [address] Marizol Macedo Glucose [Mass/Vol] 91 mg/dL Normal 74-106 [facility] Comment on above: Performed By: #### L IPID, T7, CMP, TSH #### [facility] [address] [address] [address] Marizol Macedo Potassium [Moles/Vol] 3.9 mmol/L Normal 3.5-5.1 [facility] Comment on above: Performed By: #### L IPID, T7, CMP, TSH #### [facility] [address] [address] [address] Marizol Macedo Protein [Mass/Vol] 7.4 g/dL Normal 6.4-8.2 [facility] Comment on above: Performed By: #### L IPID, T7, CMP, TSH #### [facility] [address] [address] [address] Marizol Macedo Sodium [Moles/Vol] 139 mmol/L Normal 136-145 [facility] Comment on above: Performed By: #### L IPID, T7, CMP, TSH #### [facility] [address] [address] [address] Marizol aMcedo Urea nitrogen [Mass/Vol] 13.0 mg/dL Normal 7.0-18.0 [place] Comment on above: Performed By: #### L IPID, T7, CMP, TSH #### [facility] [address] [address] [address] Marizol Macedo Urea nitrogen/Creatinine [Mass ratio] 17.3 mg/mg Normal [place] Comment on above: Performed By: #### L IPID, T7, CMP, TSH #### [facility] [address] [place] [address] Dr. Marizol Macedo TSHon 04-28-2022 TSH 1.306 uIU/mL Normal 0.358-3.740 [facility] Comment on above: Performed By: #### L IPID, T7, CMP, TSH #### [facility] [address] [place] [address] Dr. Marizol Macedo CBC W/DIFFon 09-28-2017 ABS BASOPHILS 0.0 10*3/uL Normal 0.0-0.2 [facility] Comment on above: Performed By: #### 4 180, 80905 ####[facility] ABS IMM GRANS 0.0 10*3/uL Normal 0.0-0.2 [facility] Comment on above: Performed By: #### 4 180, 86215 ####[facility] ABS NEUTROPHILS 2.8 10*3/uL Normal 1.6-7.6 [facility] Comment on above: Performed By: #### 4 180, 31134 ####[facility] Basophils Auto #/vol (Bld) 0.5 % Normal 0.0-1.0 [facility] Comment on above: Performed By: #### 4 180, 35065 ####[facility] [facility].[address] Eosinophils Auto #/vol (Bld) 0.1 10*3/uL Normal 0.0-0.5 [facility] Comment on above: Performed By: #### 4 180, 39919 ####[facility] [facility].[address] Eosinophils/100 WBC Auto (Bld) 2.3 % Normal 0.0-6.0 [facility] Comment on above: Performed By: #### 4 180, 39536 ####[facility] [facility].[address] Erythrocyte distribution width Auto Ratio (RBC) 12.9 % Normal 11.5-15.0 [facility] Comment on above: Performed By: #### 4 180, [address]3728 ####[address] [facility].[address] Hematocrit Auto Volume Fraction (Bld) 42.9 % Normal 36.0-45.0 The [facility] Comment on above: Performed By: #### 4 180, 78531 ####[address] [facility].[address] Hemoglobin mass conc (Bld) 14.1 g/dL Normal 12.0-15.0 [facility] Comment on above: Performed By: #### 4 180, 60721 ####[facility] [facility].[address] IMMATURE GRANS 0.3 % Normal 0.0-1.0 The [facility] Comment on above: Performed By: #### 4 180, 34183 ####[address] [facility] [address], [facility] Lymphocytes Auto #/vol (Bld) 2.4 10*3/uL Normal 1.2-4.0 The [facility] Comment on above: Performed By: #### 4 180, 37984 ####[facility] Lymphocytes/100 WBC Auto (Bld) 39.5 % Normal 20.0-45.0 [facility] Comment on above: Performed By: #### 4 1801, 34603 ####[facility] MCH Auto Entitic mass (RBC) 30.3 pg Normal 27.0-33.0 [facility] Comment on above: Performed By: #### 4 1801, 32336 ####[facility] MCHC Auto mass conc (RBC) 32.9 g/dL Normal 32.0-35.0 [facility] Comment on above: Performed By: #### 4 1801, 47717 ####[facility] [facility].[address] MCV Auto Entitic volume (RBC) 92.3 fL Normal 82.0-98.0 [facility] Comment on above: Performed By: #### 4 1801, 39923 ####[facility] Monocytes Auto #/vol (Bld) 0.7 10*3/uL Normal 0.1-1.0 [facility] Comment on above: Performed By: #### 4 180, 19705 ####[facility] [facility].[address] MONOS 11.2 % Normal 5.0-12.0 [facility] Comment on above: Performed By: #### 4 1801, 52697 ####[facility] [facility].[address] Neutrophils/100 WBC Auto (Bld) 46.2 % Normal 40.0-72.0 The [facility] Comment on above: Performed By: #### 4 180, 68084 ####[address] Nucleated RBC/100 WBC Ratio (Bld) 0 % Normal 0-0 [facility] Comment on above: Performed By: #### 4 1801, 63389 ####[address] PLAT CNT 263 10*3/uL Normal 150-400 [facility] Comment on above: Performed By: #### 4 180, 67601 ####[address] RBC Auto #/vol (Bld) 4.65 10*6/uL Normal 3.80-5.00 Th e [facility] Comment on above: Performed By: #### 4 1801, 72833 ####[address] WBC Auto #/vol (Bld) 6.07 10*3/uL Normal 4.00-10.60 Th e [facility] Comment on above: Performed By: #### 4 1801, 55076 ####[address] COMP METABOLIC PANELon 09-28 Albumin mass conc 4.1 g/dL Normal 3.5-5.7 [facility] Comment on above: Performed By: #### 4 180, 63815 ####[address] ALKALINE PHOSPH 73 IU/L Normal 34-104 [facility] Comment on above: Performed By: #### 4 1801, 91809 ####[facility] [place] [address], [place] ALT enzyme act/vol 54 U/L High 7-52 [facility] Comment on above: Performed By: #### 4 180, 23474 ####[facility] [place] [address], [place] AST enzyme act/vol 40 U/L High 13-39 [facility] Comment on above: Performed By: #### 4 180, 35280 ####[facility] [place] [address], [place] Bilirubin mass conc 0.4 mg/dL Normal 0.3-1.0 The [facility] Comment on above: Performed By: #### 4 180, 03629 ####[facility] [place] [address], [place] Calcium mass conc 9.7 mg/dL Normal 8.6-10.3 [facility] Comment on above: Performed By: #### 4 180, 63503 ####[facility] [place] [address], [place] Chloride molar conc 103 mmol/L Normal 98-107 The [facility] Comment on above: Performed By: #### 4 180, 49194 ####[facility] [place] [address], [place] CO2 molar conc 28 mmol/L Normal 21-31 [facility] Comment on above: Performed By: #### 4 180, 50477 ####[facility] [place] [address], [place] Creatinine mass conc 0.81 mg/dL Normal 0.60-1.20 The [facility] Comment on above: Performed By: #### 4 180, 78818 ####[facility] [place] [address], [place] GFR/1.73 sq M predicted among blacks MDRD vol rate/area (S/P/Bld) mL/min/{1.73_m2} Normal >60 The [facility] Comment on above: Performed By: #### 4 180, 12126 ####[facility] [place] [address], [facility] GFR/1.73 sq M predicted among non-blacks MDRD vol rate/area (S/P/Bld) mL/min/{1.73_m2} Normal >60 [facility] Comment on above: Performed By: #### 4 180, 04961 ####[facility] [place] [address], [facility] Glucose mass conc 95 mg/dL Normal 70-100 [facility] Comment on above: Performed By: #### 4 180, 58559 ####[facility] [place] [address], [facility] Potassium molar conc 4.4 mmol/L Normal 3.5-5.1 The [facility] Comment on above: Performed By: #### 4 180, 02491 ####[facility] [place] [address], [facility] Protein mass conc 7.2 g/dL Normal 6.0-8.3 The [facility] Comment on above: Performed By: #### 4 180, 74343 ####[facility] [place] [address], [facility] Sodium molar conc 139 mmol/L Normal 136-145 [facility] Comment on above: Performed By: #### 4 180, 01487 ####[facility] [id number], [facility] Urea nitrogen mass conc 19 mg/dL Normal 7-25 [facility] Comment on above: Performed By: #### 4 180, 27034 ####[facility] Glucose Glucometer (BldC) [M ass/Vol]on 08-17-2017 Glucose [Mass/Vol] 99 mg/dL [facility] Comment on above: Random Glucose Refer ence Range is dependent on time and content of last meal. Glucose of more than 200 mg/dL in a nonstressed, ambulatory subject supports the diagnosis of Diabetes Mellitus. CBC W/DIFFon 03-31-2017 Basophils Auto #/vol (Bld) 0.3 % Normal 0.0-2.0 [facility] Comment on above: Performed By: #### 4 180, 74186 ####[facility] [facility] [place] [address], [facility] Eosinophils/100 WBC Auto (Bld) 2.1 % Normal 0.0-5.0 The [facility] Comment on above: Performed By: #### 4 180, 33209 ####[facility] [facility].[address] Erythrocyte distribution width Auto Ratio (RBC) 13.0 % Normal 11.5-16.9 The [facility] Comment on above: Performed By: #### 4 180, 70702 ####[facility] [facility].[address] Hematocrit Auto Volume Fraction (Bld) 42.6 % Normal 36.0-48.0 [facility] Comment on above: Performed By: #### 4 180, 03768 ####[facility] [facility].[address] Hemoglobin mass conc (Bld) 14.3 g/dL Normal 12.0-15.0 [facility] Comment on above: Performed By: #### 4 180, 86953 ####[facility] [place] [address], [facility] Lymphocytes/100 WBC Auto (Bld) 29.7 % Normal 20.0-40.0 [facility] Comment on above: Performed By: #### 4 180, 61787 ####[facility] MCH Auto Entitic mass (RBC) 30.7 pg Normal 24.0-32.0 [facility] Comment on above: Performed By: #### 4 180, 08291 ####[facility] [facility] MCHC Auto mass conc (RBC) 33.7 g/dL Normal 32.0-36.0 [facility] Comment on above: Performed By: #### 4 180, 17865 ####[facility] [facility].[address] MCV Auto Entitic volume (RBC) 91.2 fL Normal 80.0-100.0 [facility] Comment on above: Performed By: #### 4 180, 92236 ####[facility] [facility].[address] METHOD Normal RBC Morphology Normal [facility] Comment on above: Performed By: #### 4 180, 68921 ####[facility] [facility].[address] MONOS 6.4 % Normal 2-8 [facility] Comment on above: Performed By: #### 4 180, 84090 ####[facility] [facility].[address] Neutrophils/100 WBC Auto (Bld) 61.5 % Normal 50-70 [facility] Comment on above: Performed By: #### 4 180, 68539 ####[facility] [facility].[address] PLAT CNT 261 Thou/mm3 Normal 100-400 [facility] Comment on above: Performed By: #### 4 180, 42238 ####[facility] [facility].[address] RBC Auto #/vol (Bld) 4.67 mill/mm3 Normal 3.50-5.50 T he [facility] Comment on above: Performed By: #### 4 1801, 31729 ####[facility] [facility].[address] WBC Auto #/vol (Bld) 6.6 Thou/mm3 Normal 4.0-10.0 Th e [facility] Comment on above: Performed By: #### 4 1801, 81857 ####[facility] [facility].[address] COMP METABOLIC PANELon 03-31 Albumin mass conc 4.0 g/dL Normal 3.5-5.7 [facility] Comment on above: Performed By: #### 4 1801, 61055 ####[facility] [facility].[address] ALKALINE PHOSPH 73 IU/L Normal 34-104 [facility] Comment on above: Performed By: #### 4 1801, 48934 ####[place] [address] [facility].[address] ALT enzyme act/vol 49 U/L Normal 7-52 [facility] Comment on above: Performed By: #### 4 1801, 91718 ####[facility] [facility].[address] AST enzyme act/vol 34 U/L Normal 13-39 [facility] Comment on above: Performed By: #### 4 1801, 16751 ####[facility] [facility].[address] Bilirubin mass conc 0.3 mg/dL Normal 0.3-1.0 [facility] Comment on above: Performed By: #### 4 1801, 55815 ####[facility] [place] [address], [place] Calcium mass conc 10.0 mg/dL Normal 8.6-10.3 [facility] Comment on above: Performed By: #### 4 180, 92126 ####[facility] [place] [address], [place] Chloride molar conc 103 mmol/L Normal 98-107 [facility] Comment on above: Performed By: #### 4 180, 20263 ####[facility] [place] [address], [place] CO2 molar conc 29 mmol/L Normal 21-31 [facility] Comment on above: Performed By: #### 4 180, 65271 ####[facility] [place] [address], [place] Creatinine mass conc 0.86 mg/dL Normal 0.60-1.20 [facility] Comment on above: Performed By: #### 4 180, 32324 ####[facility] [place] [address], [place] GFR/1.73 sq M predicted among blacks MDRD vol rate/area (S/P/Bld) mL/min/{1.73_m2} Normal >60 The [facility] Comment on above: Performed By: #### 4 180, 96437 ####[facility] [place] [address], [place] GFR/1.73 sq M predicted among non-blacks MDRD vol rate/area (S/P/Bld) mL/min/{1.73_m2} Normal >60 [facility] Comment on above: Performed By: #### 4 180, 22462 ####[facility] [place] [address], [place] Glucose mass conc 86 mg/dL Normal 70-100 [facility] Comment on above: Performed By: #### 4 180, 42431 ####[facility] [facility] [place] [address], [facility] Potassium molar conc 4.1 mmol/L Normal 3.5-5.1 [facility] Comment on above: Performed By: #### 4 1802, 74805 ####[facility] [facility] Protein mass conc 7.0 g/dL Normal 6.0-8.3 [facility] Comment on above: Performed By: #### 4 1802, 73488 ####[facility] [facility].[address] Sodium molar conc 138 mmol/L Normal 136-145 [facility] Comment on above: Performed By: #### 4 1802, 67389 ####[facility] [facility] [place] [address], [facility] Urea nitrogen mass conc 14 mg/dL Normal 7-25 [facility] Comment on above: Performed By: #### 4 1802, 52949 ####[facility] [facility].[address] ANAon 02-10-2017 HELENE SCREEN <1:40 Normal <1:40,1:40 [facility] Comment on above: Performed By: #### 1 0008 ####[facility] [facility].[address] ANCA IGG WITH REFLEX [id number] on 02-10-2017 ANCA <1:20 Normal <1:20 [facility] Comment on above: Result Comment: The ANCA IFA is <1:20; therefore, no further testing willbe performed.INTERPRETIVE INFORMATION: Anti-Neutrophil Cyto Ab, IgGNeutrophil Cytoplasmic Antibodies (C-ANCA = granularcytoplasmic staining, P-ANCA = perinuclear staining) arefound in the serum of over 90 percent of patients withcertain necrotizing systemic vasculitides, and usually inless than 5 percent of patients with collagen vasculardisease or arthritis.Performed by [employer],[address] [place] [id number] [employer], Onel Connelly MD - Lab. Director ANTI DNAon 02-10-2017 ANTI DNA <1:10 Normal <1:10 [facility] Comment on above: Performed By: #### 1 0008 ####[facility] [place] [address], [facility] ANTI-BETA 2 GLYCOPROTEIN 1on 02-10-2017 ANTI B2GP1 IGA 9.3 a units Normal 0.0-19.9 [facility] Comment on above: Performed By: #### 1 0008 ####[facility] [place] [address], [facility] ANTI B2GP1 IGG 1.1 g units Normal 0.0-19.9 [facility] Comment on above: Performed By: #### 1 0008 ####[facility] [place] [address], [place] ANTI B2GP1 IGM 2.5 m units Normal 0.0-19.9 [facility] Comment on above: Performed By: #### 1 0008 ####[facility] [place] [address], [facility] ANTI-ENAon 02-10-2017 ANTI SM Negative Normal NEG,NEGATIVE,N eg [facility] Comment on above: Performed By: #### 1 0008 ####[facility] [place] [address], [place] ANTI SM/ANTIRNP Negative Normal NEG,NEGATIVE ,N eg [facility] Comment on above: Performed By: #### 1 0008 ####[facility] [place] [address], [place] ANTICARDIOLIPIN ANTIBODYon 04-12-2016 CARDIOLIPIN IGA 4.9 APL Normal 0.0-21.9 [facility] Comment on above: Performed By: #### 1 0008 ####[facility] [facility].[address] CARDIOLIPIN IGG 14.5 GPL Normal 0.0-22.9 [facility] Comment on above: Performed By: #### 1 0008 ####[facility] [facility].[address] CARDIOLIPIN IGM 9.5 MPL Normal 0.0-10.9 [facility] Comment on above: Performed By: #### 1 0008 ####[facility] [facility].[address] CBC W/DIFFon 02-10-2017 Basophils Auto #/vol (Bld) 0.4 % Normal 0.0-2.0 [facility] Comment on above: Performed By: #### 5 0103 ####[facility] [facility].[address] Eosinophils/100 WBC Auto (Bld) 2.5 % Normal 0.0-5.0 [facility] Comment on above: Performed By: #### 5 0103 ####[facility] [facility].[address] Erythrocyte distribution width Auto Ratio (RBC) 14.5 % Normal 11.5-16.9 [facility] Comment on above: Performed By: #### 5 0103 ####[facility] [facility].[address] Hematocrit Auto Volume Fraction (Bld) 41.0 % Normal 36.0-48.0 [facility] Comment on above: Performed By: #### 5 3 ####[facility] [facility].[address] Hemoglobin mass conc (Bld) 13.6 g/dL Normal 12.0-15.0 [facility] Comment on above: Performed By: #### 5 0103 ####[facility] Lymphocytes/100 WBC Auto (Bld) 26.7 % Normal 20.0-40.0 [facility] Comment on above: Performed By: #### 5 3 ####[facility] [facility] MCH Auto Entitic mass (RBC) 30.5 pg Normal 24.0-32.0 [facility] Comment on above: Performed By: #### 3 ####[facility] [facility].[address] MCHC Auto mass conc (RBC) 33.2 g/dL Normal 32.0-36.0 [facility] Comment on above: Performed By: #### 3 ####[facility] [facility] MCV Auto Entitic volume (RBC) 91.8 fL Normal 80.0-100.0 [facility] Comment on above: Performed By: #### 5 3 ####[facility] [facility].[address] METHOD Normal RBC Morphology Normal [facility] Comment on above: Performed By: #### 3 ####[facility] [facility].[address] MONOS 6.6 % Normal 2-8 [facility] Comment on above: Performed By: #### 3 ####[facility] [facility].[address] Neutrophils/100 WBC Auto (Bld) 63.8 % Normal 50-70 [facility] Comment on above: Performed By: #### 3 ####[facility] PLAT CNT 310 Thou/mm3 Normal 100-400 [facility] Comment on above: Performed By: #### 5 0103 ####[facility] [place] [address], [facility] RBC Auto #/vol (Bld) 4.47 mill/mm3 Normal 3.50-5.50 T he [facility] Comment on above: Performed By: #### 5 0103 ####[facility] [place] [address], [facility] WBC Auto #/vol (Bld) 7.6 Thou/mm3 Normal 4.0-10.0 Th e [facility] Comment on above: Performed By: #### 5 3 ####[facility] [place] [address], [facility] COMP METABOLIC PANELon 02-10 Albumin mass conc 4.3 g/dL Normal 3.5-5.7 [facility] Comment on above: Performed By: #### 0 0121 ####[facility] [place] [address], [facility] ALKALINE PHOSPH 89 IU/L Normal 34-104 [facility] Comment on above: Performed By: #### 0 0121 ####[facility] [facility] [place] [place] [address], [facility] ALT enzyme act/vol 35 U/L Normal 7-52 [facility] Comment on above: Performed By: #### 0 0121 ####[facility] [place] [address], [facility] AST enzyme act/vol 27 U/L Normal 13-39 [facility] Comment on above: Performed By: #### 0 0121 ####[facility] [place] [address], [facility] Bilirubin mass conc 0.4 mg/dL Normal 0.3-1.0 [facility] Comment on above: Performed By: #### 0 0121 ####[facility] [place] [address], [facility] Calcium mass conc 9.9 mg/dL Normal 8.6-10.3 [facility] Comment on above: Performed By: #### 0 0121 ####[facility] [place] [address], [facility] Chloride molar conc 102 mmol/L Normal 98-107 [facility] Comment on above: Performed By: #### 0 0121 ####[facility] [facility] [place] [address], [facility] CO2 molar conc 25 mmol/L Normal 21-31 [facility] Comment on above: Performed By: #### 0 0121 ####[facility] [facility] [place] [address], [facility] Creatinine mass conc 0.87 mg/dL Normal 0.60-1.20 [facility] Comment on above: Performed By: #### 0 0121 ####[facility] [facility] [place] [address], [facility] GFR/1.73 sq M predicted among blacks MDRD vol rate/area (S/P/Bld) mL/min/{1.73_m2} Normal >60 [facility] Comment on above: Performed By: #### 0 0121 ####[facility] [facility] [place] [place] [address], [facility] GFR/1.73 sq M predicted among non-blacks MDRD vol rate/area (S/P/Bld) mL/min/{1.73_m2} Normal >60 [facility] Comment on above: Performed By: #### 0 0121 ####[facility] [place] [address], [facility] Glucose mass conc 99 mg/dL Normal 70-100 [facility] Comment on above: Performed By: #### 0 0121 ####[facility] [place] [address], [facility] Potassium molar conc 4.1 mmol/L Normal 3.5-5.1 [facility] Comment on above: Performed By: #### 0 0121 ####[facility] [place] [address], [facility] Protein mass conc 7.5 g/dL Normal 6.0-8.3 [facility] Comment on above: Performed By: #### 0 0121 ####[facility] [place] [address], [facility] Sodium molar conc 136 mmol/L Normal 136-145 [facility] Comment on above: Performed By: #### 0 0121 ####[facility] [place] [address], [facility] Urea nitrogen mass conc 20 mg/dL Normal 7-25 [facility] Comment on above: Performed By: #### 0 0121 ####[facility] [place] [address], [facility] COMPLEMENT 3on 02-10-2017 COMPLEMENT 3 154 mg/dL High 79-152 [facility] Comment on above: Performed By: #### 1 0204, [id number], [id number] ####[facility] COMPLEMENT 4on 02-10-2017 COMPLEMENT 4 34 mg/dL Normal 16-38 [facility] Comment on above: Performed By: #### 1 0204, 35575, 33065 ####[facility] [place] [address], [facility] CREATININE URINE RANDOMon CREATININE 138.0 mg/dL Normal [facility] Comment on above: Result Comment: Ther e are no established reference values for random urine specimens Performed By: #### 4 1802, 61100 ####[facility] [place] [address], [facility] CRYOGLOBULIN ILon 02-10-2017 CRYOGLOBULIN 0 mg/dL Normal 0-10 [facility] IL Normal [facility] CYCLIC [place]RULLINATED PEPTIDE [place] [id number] 02-10-2017 CYCLIC CIT PEP 6 Units Normal 0-19 [facility] Comment on above: Result Comment: INTE [...] results should bemonitored and testing repeated.Performed by [employer],[address] [place] [id number] [address], Onel Connelly MD - Lab. Director HEPATITIS B CORE ANTIBODYon 02-10-2017 HEP B CORE AB NONREACTIVE Normal NONREACTIVE [facility] Comment on above: Performed By: #### 3 1397, 08345, [id number], [id number] ####[facility] [place] [address], [facility] HEPATITIS B SURFACE ANTIBODY QUANTon 02-10-2017 HEP B SURF AB 0.00 mIU/ml Normal [facility] Comment on above: Result Comment: INTE RPRETATION:NONREACTIVE<8.00 mIU/mLINDETERMINATE8.00 - 12.00 mIU/mLREACTIVE>12 mIU/mL Performed By: #### 1 0008 ####[facility] HEPATITIS B SURFACE ANTIGEN QUALon 02-10-2017 HEP B SURF AG QUAL NONREACTIVE Normal NONREACTIVE [facility] Comment on above: Performed By: #### 1 0008 ####[facility] [facility] [place] [address], [facility] HEPATITIS C ANTIBODYon 02-10 ANTI-HCV NONREACTIVE Normal NONREACTIVE [facility] Comment on above: Performed By: #### 3 1397, 52194, 12379, 96366 ####[facility] [facility].[address] RHEUMATOID FACTOR SERUMon RA <20 Normal 0-20 [facility] Comment on above: Performed By: #### 1 0204, 88134, 44061 ####[facility] [facility].[address] SJOGRENS ANTIBODIESon 2016 SS-A Negative Normal NEG,NEGATIVE,N eg [facility] Comment on above: Performed By: #### 1 0008 ####[facility] [facility].[address] SS-B Negative Normal NEG,NEGATIVE,N eg [facility] Comment on above: Performed By: #### 1 0008 ####[facility] [facility] [place] [address], [facility] T PROT UR Adam 02-10-2017 Protein mass conc 29.0 mg/dL Normal [facility] Comment on above: Result Comment: Ther e are no established reference values for random urine specimens Performed By: #### 4 7078, [id number] ####[facility] [facility] [place] [address], [facility] TB QUANTIFERONon 02-10-2017 MITOGEN MINUS NIL >=10 Normal [facility] Comment on above: Performed By: #### 4 180, 36449 ####[facility] [facility] [place] [address], [facility] NIL 0.03 IU/mL Normal [facility] Comment on above: Performed By: #### 4 180, 63926 ####[facility] [facility] [place] [address], [facility] TB AG MINUS NIL 0.01 IU/mL Normal [facility] Comment on above: Performed By: #### 4 180, 72648 ####[facility] [facility] [place] [address], [facility] TB ANTIGEN 0.04 IU/mL Normal [facility] Comment on above: Performed By: #### 4 180, 24745 ####[facility] [facility].[address] TB QUANTIFERON Negative Normal NEGATIVE [facility] Comment on above: Result Comment: Boy [...] disease and LTBI(http://www.cdc.gov/nchstp/tb/). Performed By: #### 4 180, 51916 ####[facility] [facility] [place] [address], [facility] URINALYSISon 02-10-2017 APPEARANCE CLOUDY Abnormal CLEAR [facility] Comment on above: Performed By: #### 1 0008 ####[facility] [place] [address], [facility] BACTERIA MOD Abnormal NONE SEEN [facility] Comment on above: Performed By: #### 1 0008 ####[facility] [place] [address], [facility] BILIRUBIN Negative Normal NEGATIVE [facility] Comment on above: Performed By: #### 1 0008 ####[facility] [place] [address], [facility] BLOOD Negative Normal NEGATIVE [facility] Comment on above: Performed By: #### 1 0008 ####[facility] [facility] [place] [address], [facility] COLOR YELLOW Normal YELLOW [facility] Comment on above: Performed By: #### 1 0008 ####[facility] [facility] [place] [address], [facility] EPIS MANY Abnormal FEW [facility] Comment on above: Performed By: #### 1 0008 ####[facility] [facility] [place] [address], [facility] GLUCOSE Negative Normal NEGATIVE [facility] Comment on above: Performed By: #### 1 0008 ####[facility] [place] [address], [facility] INR Coag RelTime (Bld) 0-2 Abnormal 0-0 [facility] Comment on above: Performed By: #### 1 0008 ####[facility] [place] [address], [place] KETONE Negative Normal NEGATIVE [facility] Comment on above: Performed By: #### 1 0008 ####[facility] [place] [address], [facility] LEUK DIMPLE LARGE Abnormal NEGATIVE [facility] Comment on above: Performed By: #### 1 0008 ####[facility] [facility].[address] MUCUS THREADS OCC Abnormal NONE SEEN [facility] Comment on above: Performed By: #### 1 0008 ####[facility] NITRITE Negative Normal NEGATIVE [facility] Comment on above: Performed By: #### 1 0008 ####[facility] PH 5.0 Normal 5.0-8.0 [facility] Comment on above: Performed By: #### 1 0008 ####[facility] Protein mass conc Negative Normal NEGATIVE [facility] Comment on above: Performed By: #### 1 0008 ####[facility] SPEC GRAV 1.020 Normal 1.015-1.020 [facility] Comment on above: Performed By: #### 1 0008 ####[facility] WBC UA >100 Abnormal 0-0 [facility] Comment on above: Performed By: #### 1 0008 ####[facility] CYTOLOGY SPECIMENon 02-02-20 17 CYTOLOGY SPEC Normal [facility] Comment on above: Order Comment: Bita nt: A. PERIESOPHAGEAL LESION FNA - CYTOLYT, 10 SLIDES Result Comment: Note : Specimens received on or after December:* Pathology and Cytology reports are located in [facility] in the folder labeled Medical Record Forms.* Reports are also in the Physician Portal.* Reports will be faxed to phycician's office.* For assistance locating reports call: * Willard Guadarrama [phone] * LAB [phone] Performed By: #### L UHCYTO ####[place] [id number] [place] [address] Albumin [Mass/volume] in Ser um or Plasmaon 01-03-2017 Albumin [Mass/Vol] 3.3 g/dL 3.2-5.5 [facility] Basophils Auto (Bld) [#/Vol] on 01-03-2017 Basophils (Bld) [#/Vol] 0.0 10*3/uL 0.0-0.2 [facility] Basophils/100 WBC Auto (Bld) on 01-03-2017 Basophils/100 WBC (Bld) 0.6 % . [facility] Creatinine and Glomerular fi ltration rate.predicted panel (S/P/Bld)on 01-03-2017 Creatinine [Mass/Vol] 1.00 mg/dL 0.44-1.03 [facility] Eosinophils Auto (Bld) [#/Vo l]on 01-03-2017 Eosinophils (Bld) [#/Vol] 0.1 10*3/uL 0.0-0.45 [facility] Eosinophils/100 WBC Auto (Bl d)on 01-03-2017 Eosinophils/100 WBC (Bld) 1.5 % . [facility] Erythrocyte distribution wid th Auto (RBC) [Ratio]on 01-03-2017 Erythrocyte distribution width (RBC) [Ratio] 14.5 % 11.9-15.3 [facility] Estimated glomerular filtrat ion rate (GFR) non- Americanon 01-03-2017 GFR/1.73 sq M.predicted among non-blacks MDRD (S/P/Bld) [Vol rate/Area] 56 mL/min/{1.73_m2} [facility] Globulin Calc (S) [Mass/Vol] on 01-03-2017 Globulin (S) [Mass/Vol] 3.6 g/dL [facility] Hematocrit Auto (Bld) [Volum e fraction]on 01-03-2017 Hematocrit (Bld) [Volume fraction] 36.3 % 34.0-46.4 [facility] Hemoglobin [Mass/volume] in Bloodon 01-03-2017 Hemoglobin (Bld) [Mass/Vol] 12.1 g/dL 11.8-15.4 [facility] Laboratory - Chemistry and C hemistry - challengeon 01-03-2017 GFR/1.73 sq M.predicted among blacks MDRD (S/P/Bld) [Vol rate/Area] mL/min/{1.73_m2} [facility] Comment on above: GFR estimated refere nce range: According to KDOQI guidelines, <60 ml/min/1.73m2 is sufficient to diagnose a patient with chronic kidney disease. Lymphocytes Auto (Bld) [#/Vo l]on 01-03-2017 Lymphocytes (Bld) [#/Vol] 2.1 10*3/uL 1.00-4.8 [facility] Lymphocytes/100 WBC Auto (Bl d)on 01-03-2017 Lymphocytes/100 WBC (Bld) 27.4 % . [facility] MCH Auto (RBC) [Entitic mass ]on 01-03-2017 MCH (RBC) [Entitic mass] 30.8 pg 24.7-34.3 [facility] MCHC Auto (RBC) [Mass/Vol]on 01-03-2017 MCHC (RBC) [Mass/Vol] 33.4 g/dL 32.0-35.0 [facility] MCV Auto (RBC) [Entitic vol] on 01-03-2017 MCV (RBC) [Entitic vol] 92.4 fL 80-100 [facility] Monocytes Auto (Bld) [#/Vol] on 01-03-2017 Monocytes (Bld) [#/Vol] 1.0 10*3/uL High 0.0-0.8 [facility] Monocytes/100 WBC Auto (Bld) on 01-03-2017 Monocytes/100 WBC (Bld) 12.7 % . [facility] Neutrophils Auto (Bld) [#/Vo l]on 01-03-2017 Neutrophils (Bld) [#/Vol] 4.4 10*3/uL 1.8-7.7 [facility] Neutrophils/100 WBC Auto (Bl d)on 01-03-2017 Neutrophils/100 WBC (Bld) 57.8 % . [facility] No Panel Informationon 01-03 Pharmacy Creatinine Clearance (Chem N/A [facility] Platelet mean volume Auto (B ld) [Entitic vol]on 01-03-2017 Platelet mean volume (Bld) [Entitic vol] 8.2 fL 6.3-10.7 [facility] Platelets Auto (Bld) [#/Vol] on 01-03-2017 Platelets (Bld) [#/Vol] 429 10*3/uL 150-450 [facility] Protein [Mass/volume] in Ser um or Plasmaon 01-03-2017 Protein [Mass/Vol] 6.9 g/dL 6.1-7.9 [facility] RBC Auto (Bld) [#/Vol]on RBC (Bld) [#/Vol] 3.93 10*6/uL 3.60-5.00 [facility] Serum or plasma alanine briggs otransferase measurement without P-5'-P (enzymatic activion 01-03-2017 ALT No additional P-5'-P [Catalytic activity/Vol] 37 U/L 10-60 [facility] Serum or plasma albumin/glob ulin mass ratioon 01-03-2017 Albumin/Globulin [Mass ratio] 0.9 {ratio} [facility] Serum or plasma alkaline bita sphatase measurement (enzymatic activity/volume)on 01-03-2017 ALP [Catalytic activity/Vol] 89 U/L 32-92 [facility] Serum or plasma aspartate am inotransferase measurement (enzymatic activity/volume)on 01-03-2017 AST [Catalytic activity/Vol] 30 U/L 10-42 [facility] Serum or plasma calcium katheryn urement (mass/volume)on 01-03-2017 Calcium [Mass/Vol] 9.4 mg/dL 8.2-10.2 [facility] Serum or plasma chloride claudia surement (moles/volume)on 01-03-2017 Chloride [Moles/Vol] 98 mmol/L 95-114 [facility] Serum or plasma glucose katheryn urement (mass/volume)on 01-03-2017 Glucose [Mass/Vol] 107 mg/dL High 70-100 [facility] Comment on above: ADA recommended refe rence rangeRandom Glucose Reference Range is dependent on time and content of last meal. Glucose of more than 200 mg/dL in a nonstressed, ambulatory subject supports the diagnosis of Diabetes Mellitus. Serum or plasma potassium me asurement (moles/volume)on 01-03-2017 Potassium [Moles/Vol] 4.1 mmol/L 3.5-5.1 [facility] Serum or plasma sodium measu rement (moles/volume)on 01-03-2017 Sodium [Moles/Vol] 139 mmol/L 136-146 [facility] Serum or plasma total biliru bin measurement (mass/volume)on 01-03-2017 Bilirubin [Mass/Vol] 0.3 mg/dL 0.3-1.2 [facility] Serum or plasma total carbon dioxide measurement (moles/volume)on 01-03-2017 CO2 [Moles/Vol] 29.5 mmol/L 22.0-30.0 [facility] Serum or plasma urea nitroge n measurement (mass/volume)on 01-03-2017 Urea nitrogen [Mass/Vol] 12 mg/dL 9-23 [facility] WBC Auto (Bld) [#/Vol]on WBC (Bld) [#/Vol] 7.6 10*3/uL 3.8-11.6 [facility] No Panel Information [facility] Vital Signs Date Time Vital Sign Value Performing Clinician Ana rosa 01-30-2024 10:17040 Body height 167.64 cm MD Christian Steiner Work Phone: [facility] 01-30-2024 10:17040 Body mass index (BMI) [Ratio] 26.3 kg/m2 MD Christian Steiner Work Phone: [facility] 01-30-2024 10:17040 Body temperature 97.3 [degF] MD Christian Steiner Work Phone: [facility] 01-30-2024 10:17040 Body weight 73.93 kg MD Christian Steiner Work Phone: [facility] 01-30-2024 10:17-040 Heart rate 86 /min MD Christian Steiner Work Phone: [facility] 01-30-2024 10:17-0400 Respiratory rate 16 /min MD Christian Steiner Work Phone: [facility] 01-30-2024 10:17-0400 SaO2% (BldA) [Mass fraction] 96 % MD Christian Steiner Work Phone: [facility] 07-14-2023 11:29-0400 Body height 157.5 cm Lynsey Saldana MD Work Phone: [facility] 07-14-2023 11:29-0400 Body mass index (BMI) [Ratio] 30 kg/m2 Lynsey Saldana MD Work Phone: [facility] 07-14-2023 11:29-0400 Body weight 74.39 kg Lynsey Saldana MD Work Phone: [facility] 07-14-2023 11:29-0400 Diastolic blood pressure 84 mm[Hg] Lynsey Saldana MD Work Phone: [facility] 07-14-2023 11:29-0400 Heart rate 79 /min Lynsey Saldana MD Work Phone: [facility] 07-14-2023 11:29-0400 Systolic blood pressure 134 mm[Hg] Lynsey Saldana MD Work Phone: [facility] 01-21-2023 09:58-0400 Body temperature 97.2 [degF] MD Christian Steiner Work Phone: [facility] 01-21-2023 09:58-0400 Body weight 76.65 kg MD Christian Steiner Work Phone: [facility] 01-21-2023 09:58-0400 Diastolic blood pressure 78 mm[Hg] MD Christian Steiner Work Phone: [facility] 01-21-2023 09:58-0400 Heart rate 71 /min MD Christian Steiner Work Phone: [facility] 01-21-2023 09:58-0400 Respiratory rate 16 /min MD Christian Steiner Work Phone: [facility] 01-21-2023 09:58-0400 SaO2% (BldA) [Mass fraction] 98 % MD Christian Steiner Work Phone: [facility] 01-21-2023 09:58-0400 Systolic blood pressure 141 mm[Hg] MD Christian Steiner Work Phone: [facility] 01-21-2022 10:03-0400 Body height 167.64 cm MD Christian Steiner [facility] 01-21-2022 10:03-0400 Body weight 82.64 kg MD Christian Steiner [facility] 01-21-2022 10:03-0400 Diastolic blood pressure 78 mm[Hg] [facility] 10:03-0400 Heart rate 98 /min MD Christian Steiner [facility] 01-21-2022 10:03-0400 Respiratory rate 18 /min MD Christian Steiner [facility] 01-21-2022 10:03-0400 SaO2% (BldA) [Mass fraction] 98 % [facility]-21-2022 10:03-0400 Systolic blood pressure 122 mm[Hg] [facility] 01-21-2021 10:29-0400 Body temperature 98 [degF] MD Christian Steiner [facility] Encounters Encounter Date Encounter Type Care Provider Facility Start: 04-18-2024 End: 04-18-2024 ambulatory CK GONZALEZ Facility:[facility] Start: 04-18-2024 End: 04-18-2024 Patient encounter procedure Ck Gonzalez OD Work Phone: Ophthalmology Comment on above: Primary open-angle g laucoma, bilateral, mild stage (Primary Dx); PCO (posterior capsular opacification), bilateral; Dry eye syndrome of bilateral lacrimal glands Start: 04-09-2024 End: 04-09-2024 Office outpatient visit 25 minutes Dino PÉREZ Work Phone: [facility] Comment on above: Acute pain of right shoulder (Primary Dx); Neck pain Start: 04-09-2024 End: 04-09-2024 ambulatory DINO GEORGE Not Available Start: 04-09-2024 End: 04-09-2024 Bamboo flowsheet Dino PÉREZ Work Phone: [facility] Start: 04-09-2024 End: 04-09-2024 Bamboo flowsheet Dino PÉREZ Work Phone: [facility] Start: 01-30-2024 Registered Recurring MD Tigre Steiner [facility] Work Phone: Start: 01-30-2024 End: 01-30-2024 ambulatory MD Christian Steiner Work Phone: [facility] Work Phone: Start: 01-30-2024 End: 01-30-2024 Patient encounter procedure MD [facility]iner [facility] Work Phone: Start: 12-19-2023 End: 12-19-2023 Bamboo flowsheet Dino PÉREZ Work Phone: [facility] Start: 12-19-2023 End: 12-19-2023 Bamboo flowsheet Dino PÉREZ Work Phone: [facility] Start: 12-19-2023 End: 12-19-2023 Office outpatient visit 25 minutes Dino PÉREZ Work Phone: [facility] Comment on above: Acute right hip pain (Primary Dx); Trochanteric bursitis of right hip; Gluteal tendonitis of right buttock Start: 12-19-2023 End: 12-19-2023 ambulatory DINO GEORGE Not Available Start: 10-17-2023 End: 10-17-2023 ambulatory ALESHA SCHULTE Facility:[facility] Start: 10-17-2023 End: 10-17-2023 Patient encounter procedure Alesha Schulte MD Work Phone: Ophthalmology Comment on above: Primary open-angle g laucoma, bilateral, mild stage (Primary Dx) Start: 09-05-2023 End: 09-05-2023 ambulatory ALESHA SCHULTE Facility:[facility] Start: 09-05-2023 End: 09-05-2023 Patient encounter procedure Alesha Schulte MD Work Phone: Ophthalmology Comment on above: Primary open-angle g laucoma, bilateral, mild stage (Primary Dx) Start: 08-24-2023 End: 08-24-2023 ambulatory SARAHI PIERSON Not Available Start: 07-27-2023 End: 07-27-2023 ambulatory ALESHA SCHULTE Facility:[facility] Start: 07-27-2023 End: 07-27-2023 Patient encounter procedure Alesha Schulte MD Work Phone: Ophthalmology Comment on above: Primary open-angle g laucoma, bilateral, mild stage (Primary Dx) Start: 07-14-2023 End: 07-14-2023 ambulatory [facility] Dee RENY [facility] Start: 07-14-2023 End: 07-14-2023 Office outpatient visit 15 minutes Lynsey Saldana MD Work Phone: [facility] Comment on above: Lymphedema (Primary Dx) Start: 05-18-2023 Chart abstracting Jr. Todd Boudreaux DO Work Phone: [facility] Start: 05-18-2023 End: 05-18-2023 ambulatory TODD ANDREW Not Available Start: 01-21-2023 End: 01-21-2023 ambulatory MD Christian Steiner Work Phone: [facility] Work Phone: Start: 01-21-2023 End: 01-21-2023 Registered Recurring MD Christian Steiner Work Phone: [facility] Work Phone: Start: 01-17-2023 End: 01-17-2023 Patient encounter procedure Alesha Schulte MD Work Phone: Ophthalmology Comment on above: Primary open-angle g laucoma, bilateral, mild stage (Primary Dx) Start: 08-02-2022 End: 09-01-2022 ambulatory COVARRUBIAS H FAWWAD Facility:[facility] Start: 07-05-2022 End: 07-05-2022 Patient encounter procedure Alesha Schulte MD Work Phone: Ophthalmology Comment on above: Primary open-angle g laucoma, bilateral, mild stage (Primary Dx) Start: 07-05-2022 End: 07-30-2022 ambulatory COVARRUBIAS H FAWWAD Facility:[facility] Start: 06-18-2022 End: 06-19-2022 ambulatory MR DINO GEORGE . Facility:[facility] Start: 06-02-2022 End: 07-02-2022 ambulatory COVARRUBIAS H FAWWAD Facility:[facility] Start: 05-05-2022 End: 06-02-2022 ambulatory COVARRUBIAS H FAWWAD Facility:[facility] Start: 04-28-2022 End: 04-29-[address] KENYETTA REYNOLDS . Facility:[facility] Start: 04-05-2022 End: 05-05-2022 ambulatory COVARRUBIAS H FAWWAD Facility:[facility] Start: 03-19-2022 End: 03-19-2022 ambulatory MARGA MARTINEZ . Facility:[facility] Start: 03-09-2022 Telephone encounter Alesha Schulet MD Work Phone: Ophthalmology Comment on above: Appointment Start: 03-04-2022 End: 04-04-2022 ambulatory COVARRUBIAS H FAWWAD Facility:[facility] Start: 02-02-2022 End: 03-03-2022 ambulatory COVARRUBIAS H FAWWAD Facility:[facility] Start: 01-21-2022 End: 01-21-2022 ambulatory MD Christian Steiner [facility] Work Phone: Start: 01-21-2022 End: 01-21-2022 Registered Recurring MD [facility] Start: 01-03-2022 End: 02-01-2022 ambulatory COVARRUBIAS H FAWWAD Facility:[facility] Start: 12-03-2021 End: 01-02-2022 ambulatory COVARRUBIAS H FAWWAD Facility:[facility] Start: 11-02-2021 End: 12-02-2021 ambulatory COVARRUBIAS H FAWWAD Facility:[facility] Start: 10-02-2021 End: 10-30-2021 ambulatory COVARRUBIAS H FAWWAD Facility:[facility] Start: 07-19-2018 Patient encounter procedure Kacie Naty Jarrod Facility:[id number] Start: 01-17-2018 Patient encounter procedure Kacie Naty Jarrod Facility:[id number] Start: 09-28-2017 End: 09-29-2017 Patient encounter EMELY DOMENICO Facility:[facility] Start: 08-18-2017 Patient encounter procedure Christian Steiner Facility:[id number] Start: 03-31-2017 End: 04-01-2017 Patient encounter EMELY DOMENICO Facility:[facility] Start: 02-10-2017 End: 02-11-2017 Patient encounter EMELY DOMENICO Facility:[facility] Start: 01-28-2017 Ambulatory Pal Deshawn Facility:[facility] Procedures Date Procedure Procedure Detail Performing Clinician Start: 01-23-2024 Screening mammograph y of left breast MD Christian Steiner Work Phone: Start: 12-19-2023 Arthrocentesis aspir &/inj major jt/bursa w/o us Dino PÉREZ Work Phone: Start: 09-05-2023 Trabeculoplasty by tameka diazr surgery Alesha Schulte MD Work Phone: Start: 07-27-2023 End: 07-27-2023 Visual field xm uni/bi w/interp extended exam Alesha Schulte MD Work Phone: Start: 01-20-2023 Screening mammograph y of left [...] Steiner Start: 01-15-2020 Screening mammography M Iza Christian Steiner Start: 01-12-2019 Screening mammography M Iza Christian Steiner Start: 07-14-2018 Dual energy X-ray absorptiometry MD Christian Steiner Start: 08-17-2017 Positron emission to mography with computed tomography MD Christian Steiner Start: 03-22-2017 MR abdomen wo/w con MD Christian Steiner Start: 03-14-2017 Positron emission to mography with computed tomography MD Christian Steiner Start: 01-18-2017 Ultrasound procedure on topographic region MD Christian Steiner Start: 01-07-2017 Positron emission to mography with computed tomography MD Christian Steiner Start: 01-05-2017 Duplex scan of lower limb veins MD Christian Steiner Start: 01-03-2017 CT chest w con MD Tia Steiner Plan of Treatment Date Care Activity Detail Author Start: 05-22-2025 End: 05-22-2025 Patient encounter procedure 05/22/2025 10:00 AM EST Office Visit [facility] [address] [place] [address] Jr. Todd Boudreaux, DO [address] [address] [facility] Start: 01-22-2025 Screening for malign ant neoplasm of breast Mammogram Screening [facility] Start: 10-22-2024 End: 10-22-2024 Patient encounter procedure 10/22/2024 10:45 AM EDT Office Visit [facility] [address] [place], [place] [id number] Alesha Schulte MD [address] [place] [address] RTC: 6 Months Full OCT ON/GCA + HVF 24-2 Schulte Ophthalmology Comment on above: RTC: [address] ON/GCA + HVF 24-2 Schulte Start: 07-13-2024 Adult BMI Screening Adult BMI Screen ing [facility] Start: 07-13-2024 Tobacco Screening Tobacco Screening [facility] Start: 07-12-2024 End: 07-12-2024 Patient encounter procedure 07/12/2024 8:30 AM EDT Office Visit [facility] [address] [place] [address] Lynsey Saldana MD [address], [facility] [address] [place] [address] [facility] Start: 04-18-2024 End: 04-18-2024 Patient encounter procedure 04/18/2024 10:30 AM EST Office Visit [facility] [address] [place] [address] Ck Gonzalez, OD [address] [place] [address] Return in about 6 months (around 04/18/2024) for VATA with TH. Ophthalmology Comment on above: Return in about 6 mo nths (around 04/18/2024) for VATA with TH. Start: 04-09-2024 End: 04-09-2024 Patient encounter procedure 04/09/2024 2:30 PM EST Office Visit [facility] [address] [place] [address] Dino George, PA [address] [place] [address] Acute pain of right shoulder (Primary Dx) [facility] Comment on above: Acute pain of right shoulder (Primary Dx) Start: 04-04-2024 Advance Directive Discussion Advance Directive Discussion [facility] Start: 01-21-2024 Screening for malign ant neoplasm of breast Mammogram Screening [facility] Start: 01-16-2024 End: 01-16-2024 Patient encounter procedure 01/16/2024 10:15 AM EDT [facility] [address] [place] [address] Dino George PA [address] [facility] [address] [place] [address] [facility] Start: 12-19-2023 End: 12-19-2023 Patient encounter procedure 12/19/2023 10:15 AM EDT Office Visit [facility] [address] [place] [id number] Dino George PA [address] [facility] [address] [place] [address] Acute pain of right knee (Primary Dx); History of total knee replacement, right [facility] Comment on above: Acute pain of right knee (Primary Dx); History of total knee replacement, right Start: 12-04-2023 Covid-19 Vaccine ( season) Covid-19 Vaccine ( season) [facility] Start: 12-04-2023 Influenza vaccination [facility] Start: 10-17-2023 End: 10-17-2023 Patient encounter procedure 10/17/2023 1:15 PM EDT Office Visit [facility] [address] [place] [address] Alesha Schulte MD [address] [place] [address] Return for VATA. Ophthalmology Comment on above: Return for VATA. Start: 09-05-2023 End: 09-05-2023 Patient encounter procedure 09/05/2023 9:45 AM EDT Office Visit [facility] [address] [place] [address] Alesha Schulte MD [address] [place] [address] Return for slt od on a amonday next available Ophthalmology Comment on above: Return for slt od on a amonday next available Start: 05-18-2023 End: 05-18-2023 Patient encounter procedure 05/18/2023 10:15 AM EST Office Visit [facility] [address] [place] [phone] Jr. Todd Boudreaux C, DO [address] [place] [address] [facility] Start: 04-04-2023 Advance Directive Discussion Advance Directive Discussion [facility] Start: 04-04-2023 Behavioral Health Screening Behavioral Health Screening [facility] Start: 02-12-2023 Diabetes Screening Diabetes Screenin g [facility] Start: 12-03-2022 Covid-19 Vaccine ( season) Covid-19 Vaccine () [facility] Start: 12-03-2022 Influenza vaccination C [facility] Start: 04-04-2022 ADVANCE DIRECTIVE DISCUSSION ADVANCE DIRECTIVE DISCUSSION [facility] Start: 04-04-2022 DEPRESSION ASSESSMENT [facility] Start: 12-03-2021 Influenza vaccination INFLUENZA (#1) [facility] Start: 04-04-2021 ADVANCE DIRECTIVE DISCUSSION ADVANCE DIRECTIVE DISCUSSION [facility] Start: 04-04-2021 DEPRESSION ASSESSMENT [facility] Start: 2017 BONE DENSITY BONE DENSITY [facility] Start: 2017 Bone Density Screening Bone Density Screening [facility] Start: 2017 Fall Risk Screening Fall Risk Screen ing [facility] Start: 2017 PNEUMOCOCCAL: 65+ (1 - PCV) PNEUMOCOCCAL: 65+ (1 - PCV) [facility] Start: 2017 Screening for osteoporosis Bone Density Screening [facility] Start: 11-13-2014 Administration of varicella zoster vaccine Zoster (Shingles) Vaccine (2 of 3) [facility] Start: 11-13-2014 SHINGRIX VACCINE (2 of 3) SHINGRIX VACCINE (2 of 3) [facility] Start: 2012 RSV Vaccine (1 - 1-d ose 60+ series) RSV Vaccine (1 - 1-dose 60+ series) [facility] Start: 2012 RSV Vaccine (1 - Ris k 60-74 years 1-dose series) RSV Vaccine (1 - Risk 60-74 years 1-dose series) [facility] Start: 2002 SHINGRIX VACCINE (1 of 2) SHINGRIX VACCINE (1 of 2) [facility] Start: 1997 COLOGUARD (FIT-DNA) COLOGUARD (FIT-D NA) [facility] Start: 1997 Colonoscopy COLONOSCOPY [facility] Start: 1997 COLORECTAL CANCER SCREENING COLORECTAL CANCER SCREENING [facility] Start: [address] COLONOGRAPHY [facility] Start: 1997 DIABETES SCREEN DIABETES SCREEN [facility] Start: 1997 Diabetes Screening Diabetes Screenin g [facility] Start: 1997 FECAL OCCULT BLOOD FECAL OCCULT BLOO D [facility] Start: 1997 Lipid 1996 panel - S amalia or Plasma Lipid Screening [facility] Start: 1997 Lipid panel Lipid Screening [facility] Start: 1997 LIPID SCREEN LIPID SCREEN [facility] Start: 1997 Screening for malign ant neoplasm of colon [facility] Start: 1997 [facility]COPY [facility] Start: 1992 Mammography [facility] Start: 1982 Zoledronic acid therapy ALPHA- 1 ANTITRYPSIN DEFICIENCY SCREENING [facility] Start: 1971 DTaP,Tdap and Td Vaccines (1 - Tdap) DTaP,Tdap and Td Vaccines (1 - Tdap) [facility] Start: 1971 Urine microalbumin profile [facility] Start: 1970 Adult BMI Follow Up Plan Adult BMI Follow Up Plan [facility] Start: 1970 ANNUAL 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 VISIT ANNUAL PCP TEAM CHRONIC DISEASE VISIT [facility] Start: 1970 Anxiety Screening Anxiety Screening [facility] Start: 1970 Depression Screening Depression Scre ening [facility] Start: 1970 HEPATITIS C SCREENING HEPATITIS C [facility] Start: 1970 Hepatitis C screening Hepatitis C [facility] Start: 1970 SPIROMETRY SPIROMETRY [facility] Start: 1964 Depression Screening Depression Scre ening [facility] Start: 1952 COVID-19 VACCINE (#1) COVID-19 VACCI NE (#1) [facility] Start: 1952 Medicare Annual Well ness Visit Medicare Annual Wellness Visit [facility] MG Breast - left Screening [facility] MG Breast - left Screening [facility] MG Breast - left Screening [facility] XR Hip - right 3 Views XR hip ri ght 2 or 3 views Imaging Routine Acute right hip pain 12/19/2023 10:12 AM EDT [facility] Work Phone: [facility] Immunizations Immunization Date Immunization Notes Care Provider Fa cili 01-05-2020 influenza (HD-IIV4) vaccine, age 65+ yr, high dose, quadrivalent, PF (FLUZONE HIGH-DOSE) Alesha Schulte MD Work Phone: [facility] 01-05-2020 influenza virus vacc ine, unspecified formulation Alesha Schulte MD Work Phone: [facility] 01-25-2018 pneumococcal polysaccharide vaccine, 23 valent Alesha Schulte MD Work Phone: [facility] 10-20-2017 pneumococcal conjuga te vaccine, 13 valent Alesha Schulte MD Work Phone: [facility] 09-17-2015 pneumococcal polysaccharide vaccine, 23 valent Alesha Schulte MD Work Phone: [facility] 06-09-2015 influenza, injectabl e, quadrivalent, preservative free Alesha Schulte MD Work Phone: [facility] 09-18-2014 zoster vaccine, live Raji Schulte MD Work Phone: [facility] 09-18-2014 zoster vaccine, unspecified formulation Lynsey Saldana MD Work Phone: [facility] 01-30-2009 novel influenza-H1N1 -09, preservative-free, injectable Alesha Schulte MD Work Phone: [facility] Payers Date Payer Category Payer Private Health Insurance [employer] [id number] 2018 Unknown [id number] 2017 Medicare [id number] 2016 Self-pay [id number] 1959 Medicare [id number] 1959 Unknown [id number] 1952 Unknown [id number] 2.16.840.1.795538.3.579.2. 356 1952 Unknown [id number] 2.16.840.1.225956.3.579.2. 356 1952 Unknown [id number] 2.16.840.1.905917.3.579.2. 356 1952 Unknown [id number] 2.16.840.1.592667.3.579.2. 593 1952 Unknown [id number] 2.16.840.1.534273.3.579.2. 593 1952 Unknown [id number] 2.16.840.1.736058.3.579.2. 593 1952 Unknown [id number] 2.16.840.1.561462.3.579.2. 593 1952 Unknown [id number] 2.16.840.1.691109.3.579.2. 593 1952 Unknown [id number] 2.16.840.1.317586.3.579.2. 593 1952 Unknown [id number] 2.16.840.1.527726.3.579.2. 593 1952 Unknown [id number] 2.16.840.1.888821.3.579.2. 593 1952 Unknown [id number] 2.16.840.1.896238.3.579.2. 593 1952 Unknown [id number] 2.16.840.1.683065.3.579.2. 593 1952 Unknown [id number] 2.16.840.1.996099.3.579.2. 593 1952 Unknown [id number] 2.16.840.1.644518.3.579.2. 593 1952 Unknown [id number] 2.16.840.1.800346.3.579.2. 593 1952 Unknown [id number] 2.16.840.1.616286.3.579.2. 593 1952 Unknown [id number] 2.16.840.1.282167.3.579.2. 1286 1952 Unknown [id number] 2.16.840.1.522160.3.579.2. 1259 1952 Unknown [id number] 2.16.840.1.986443.3.579.2. 1259 1952 Unknown [id number] 2.16.840.1.425386.3.579.2. 1259 1952 Unknown [id number] 2.16.840.1.433008.3.579.2. 1259 1952 Unknown [id number] 2.16.840.1.119202.3.579.2. 1259 1952 Unknown [id number] 2.16.840.1.156321.3.579.2. 1259 Unknown [id number] Unknown [id number] 2.16.840.1.726545.3.579.2. 531 Social History Date Type Detail Facility Start: 01-21-2021 End: 03-25-2022 Tobacco smoking status NHIS Never smoked tobacco (finding) [facility] Start: 1950 Sex Assigned At Female [facility] Start: 02-27-2019 End: 03-25-2022 Tobacco use and exposure Smokeless tobacco non-user [facility] Start: 09-18-2019 End: 04-18-2024 Alcohol intake Current drinker of alcohol (finding) [facility] Start: 09-18-2019 History SDOH Alcohol Frequency 2 [facility] Start: 09-18-2019 History SDOH Alcohol Std Drinks 1 [facility] Start: 02-27-2019 Alcohol Comment a glass of wine once every 2-3 months [facility] Start: 1950 Sex Assigned At Not on file [facility] Start: 02-27-2019 End: 05-15-2020 History of Social function [facility] Start: 02-27-2019 End: 05-15-2020 Alcohol Use Disorder Identification Test - Consumption [AUDIT-C] [facility] Frequency of Alcohol Consumption Monthly or less [facility] Start: 09-25-2022 End: 04-09-2024 Alcohol intake Lifetime non-drinker (finding) [facility] Start: 09-25-2022 Alcohol Comment caffeine intake: 2-3 cups per day [facility] Start: 09-14-2022 Gender identity Identifies as female gender (finding) [facility] Start: 09-14-2022 Sexual orientation Heterosexual (finding) [facility] Start: 07-14-2023 Alcoholic beverage intake Ex-drinker (finding) [facility] Start: 01-17-2020 Alcohol Comment very rare [facility] Medical Equipment Procedure Code Equipment Code Equipment Origin al Text Equipment Identifier Dates Lens Acrysof Iq Toric 6mm +24.5 Diopter +6 Cylinder 0 D Biconvex Acrylic 13 - [id number] Start: 03-14-2019 Comment on above: Description: -0.57 Lens Acrysof Iq Toric Stableforce 6mm 0 D +22.5 Diopter +2.25 Cylinder - [id number] Start: 03-21-2019 Comment on above: Description: -0.80 Istent Inject - [id number] Start: 03-14-2019 Istent Inject - [id number] Start: 03-21-2019 Cmnt Bn Bio 40gm Rpl [id number] - Sna - [id number] Start: 02-12-2020 Ins Artc 3-5 E-F 11mm Kn Rt Ps - Sna - [id number]/ [id number], [id number] FDA Start: 02-12-2020 Cmpt Fem 5 Kn Rt Persona Strl - Sna - [id number] Start: 02-12-2020 Cmpt Ptlr 32mm Persona Alply - Sna - [id number] Start: 02-12-2020 Bsplt Tib 5d E K n Rt Stm - Sna - [id number] Start: 02-12-2020 Clinical Notes 01-04-2017 to 04-18-2024 Ck Gonzalez OD - 04/18/2024 11:06 AM BETO Grissom - 04/09/2024 2:30 PM BETO Grissom - 12/19/2023 10:15 AM Alesha Benítez MD - 10/17/2023 1:32 PM EDT Note Date & Type Note Facility 04-18-2024 Note HNO ID: [id number] Author: CK GONZALEZ OD Service: ? Author Type: INTERNAL MEDICINE NURSE PRACTITIONER Type: Progress Notes Filed: 04/18/2024 11:22 Note Text: Tmax: 25, 26; Pachy: 548, 546 No family history Lasers and Surgeries: OD: IOL, istent 09/05/2023 SLT for IOP 22 --> 17 OS: IOL, istent Ocular Medication Intol and Non-efficacy: - Referred by Dr Saul Current Ophthalmic Meds cycloSPORINE (RESTASIS) 0.05 % ophthalmic emulsion 1 drop two times a day OU -HVF 07/05/22 OD full; OS full -OCT 07/06/23 OD ? Sup loss (PPA); OS normal - GCA Glaucoma suspect right eye>left eye OCt sl worse right eye - History of elevated IOP Prior to I- stent OU and SLT OD - Normal HVF PCIOL both eyes - Doing well (H26.493) PCO (posterior capsular opacification), bilateral Comment: Mild reduction in vision Plan: Observe for worsening OC (H04.123) Dry eye syndrome of bilateral lacrimal glands Comment: Controlled with Restasis Plan: Continue two times a day RTC: 6 Months Full OCT ON/GCA + HVF 24-2 The nature of the patient's eye disease, its relationship to systemic health, its genetic components, and its prognosis have been explained to the patient/family. The treatment options/risks/benefits have been discussed. Questions answered. I have interviewed and examined Myla Pollack. I have confirmed and edited as necessary the chief complaint, history of present illness, past medical history, medications, family history, social history, review of systems, and exam findings as obtained by others. I agree with the assessment and plan as stated above,and have discussed them in detail with the patient. Ck Gonzalez, OD April 18, 2024 11:21 AM [facility] 04-18-2024 History of Present illness Narrative Tmax: 25, 26; Pachy: 548, 546 No family history Lasers and Surgeries: OD: IOL, istent 09/05/2023 SLT for IOP 22 --> 17 OS: IOL, istent Ocular Medication Intol and Non-efficacy: - Referred by Dr Saul Current Ophthalmic Meds cycloSPORINE (RESTASIS) 0.05 % ophthalmic emulsion 1 drop two times a day OU -HVF 07/05/22 OD full; OS full -OCT 07/06/23 OD ? Sup loss (PPA); OS normal - GCA Glaucoma suspect right eye>left eye OCt sl worse right eye - History of elevated IOP Prior to I- stent OU and SLT OD - Normal HVF PCIOL both eyes - Doing well (H26.493) PCO (posterior capsular opacification), bilateral Comment: Mild reduction in vision Plan: Observe for worsening OC (H04.123) Dry eye syndrome of bilateral lacrimal glands Comment: Controlled with Restasis Plan: Continue two times a day RTC: 6 Months Full OCT ON/GCA + HVF 24-2 The nature of the patient's eye disease, its relationship to systemic health, its genetic components, and its prognosis have been explained to the patient/family. The treatment options/risks/benefits have been discussed. Questions answered. I have interviewed and examined Myla Pollack. I have confirmed and edited as necessary the chief complaint, history of present illness, past medical history, medications, family history, social history, review of systems, and exam findings as obtained by others. I agree with the assessment and plan as stated above,and have discussed them in detail with the patient. Ck Gonzalez, OD April 18, 2024 11:21 AM documented in this encounter [facility] 04-09-2024 History of Present illness Narrative Images from the original note were not included. HISTORY OF PRESENT ILLNESS: EST PT Myla Pollack is an 73 y.o. @ female. (EST PT) NEW COMPLAINT, (R) SHOULDER DISCOMFORT. SYMPTOMS FOR ABOUT 2 MONTHS, NO KNOWN INJURY. XRAYS 03/08/24 @ [facility], [place] MRI, (R) SHOULDER & C-SPINE 04/02/24 @ [facility] [place] INTERMITTENT RT DIFFUSE RT SHOULDER, ARM, AND NECK PAIN X3 MONTHS, DENIES KNOWN INJURY. GOOD ROM. PT STATES SHE TAKES TYLENOL PRN FOR PAIN. DENIES NUMBNESS/TINGLING, WEAKNESS. STATES SHE HAS FULL STRENGTH IN RT ARM. NO PRIOR SX TO RT SHOULDER. TAKES COUMADIN-H/O PE ALLERGIES: Allergies Allergen Reactions Sulfa Antibiotics Other Reaction(s): Unknown, unknown (child) Unknown reaction. Patient told since childhood she was allergic. Sulfamethoxazole-Trimethoprim Unknown HOME MEDICATIONS: Current Outpatient Medications Medication Instructions albuterol HFA (ProAir HFA) 90 mcg/act inhaler 1 puff, Inhalation, Every 4 hours PRN ascorbic acid (VITAMIN C) 1,000 mg, Oral, Daily RT atorvastatin (LIPITOR) 20 mg, Oral, Every 24 hours B Complex Vitamins (B COMPLEX 1 PO) 1 tablet, Oral, Daily biotin 1 MG capsule 1 capsule, Oral, Daily Breo Ellipta 100-25 MCG/ACT aerosol powder 1 puff, Inhalation, Daily cholecalciferol (D3-5) 5,000 Units, Oral, Daily RT Cyanocobalamin (Vitamin B12) 1000 MCG tablet controlled-release 1 tablet, Oral, Every 24 hours cycloSPORINE (Restasis) 0.05 % ophthalmic emulsion 1 drop, Both Eyes, Every 12 hours ergotamine-caffeine (Cafergot) 1-100 MG tablet 1 tablet, Oral, Once as needed fluticasone (Flonase) 50 MCG/ACT nasal spray 2 sprays, Each Nostril, Daily, Shake gently. Before first use, prime pump. After use, clean tip and replace cap. Glucosamine 500 MG capsule 2 tablets, Oral, Every 24 hours Imitrex 100 mg, Every 12 hours magnesium 250 MG tablet 1 tablet, Oral, Every 24 hours montelukast (SINGULAIR) 10 mg, Oral, Nightly Multiple Vitamin (Multi-Vitamin) tablet 1 tablet, Oral, Daily pregabalin (LYRICA) 75 mg, Oral, Daily Pyridoxine HCl (Vitamin B6) 100 MG tablet 1 tablet, Oral, Every 24 hours warfarin (COUMADIN) 5 mg, Oral Zinc 10 MG lozenge Zinc PHYSICAL EXAM: Shoulder Musculoskeletal Exam Inspection Right Right shoulder inspection is normal. Ecchymosis: none Peripheral edema: none Atrophy: none Masses: none Palpation Right Crepitus: no crepitus Increased warmth: none Tenderness: present Anterior shoulder: none AC joint: none Trapezius: mild Trapezius comment: + pain mid paraverterbral cervical spine. Medial scapula: none Superior pole of scapula: none Inferior pole of scapula: none Bicipital groove: none Proximal biceps: none Distal biceps: none Lateral arm: mild Elbow: none Palpation additional comments: Reflexes 2 + symmetric, biceps, triceps, brachial radialis, neg clonus. Full rom of neck with pain notes mid paravertebral. Range of Motion Right Right shoulder range of motion is normal. Active ROM: normal. Active ROM comment: slight discomfort passing 90 degrees.. Passive ROM: normal. Right shoulder active abduction: + pain passing 90 degrees. Internal rotation: L4. Strength Right External rotation: 4+/5. External rotation is not affected by pain. Internal rotation: 5/5. Abduction: 5/5. Abduction is not affected by pain. Biceps: 5/5. Triceps: 5/5. Neurovascular Right Radial pulse: normal and 2+ Capillary refill: <3 sec Axillary nerve sensory distribution: normal Scapula Right Right shoulder scapula is normal. Position: normal Winging: none Special Tests Right Rotator Cuff Signs Romero test: positive Biceps/christian Signs Speed's test: negative Special tests additional comments: Neg Spurling. General Constitutional: appears stated age Neurological: alert and oriented x3 Vitals: There is no height or weight on file to calculate BMI. Tobacco Use: Low Risk (04/09/2024) Patient History Smoking Tobacco Use: Never Smokeless Tobacco Use: Never Passive Exposure: Not on file Alcohol Use: Not At Risk (02/27/2019) Received from [facility], [facility] AUDIT-C Frequency of Alcohol Consumption: Monthly or less Average Number of Drinks: 1 or 2 Frequency of Binge Drinking: Never IMAGING: MRI [facility]: 04/02/24 Shoulder right No acute fracture, strain vs partial tear suprspinatus. + ac joint arthritis and down sloping acromion. MRI C-Spine 04/02/24 Moderate to severe foramenal narrowing C4-C5 Procedures No orders of the defined types were placed in this encounter. ASSESSMENT: ICD-10-CM 1. Acute pain of right shoulder M25.511 2. Neck pain M54.2 PLAN: Discussed MRI C-spine and Shoulder.. pt has mild shoulder symptoms for impingement that are not her chief concern. Shoulder functioning too well to consider surgery or even and injection.. pt has constant chronic neck pain of varing degree, we discussed position of neck while on tablet, which is when pain came diffuse into right arm.. recommend ergonomic changes to time on her tablet and referral to pain management given chronicity of neck pain for further evaluation. Questions answered in laymen terms at the bedside. The diagnosis, home exercise plan and any ongoing restrictions/ recommendations reviewed. If unable to be reached in office, I recommend evaluation at nearest Emergency Room if any symptoms worsened or new symptoms develop for requiring urgent evaluation. documented in this encounter [facility] 12-19-2023 History of Present illness Narrative Associated Order(s): L Inj/Asp: R greater trochanteric bursa Post-Procedure Diagnose(s): Trochanteric bursitis of right hip; Gluteal tendonitis of right buttock Images from the original note were not included. HISTORY OF PRESENT ILLNESS: EST PT Myla Pollack is an 73 y.o. @ female. (EST PT ; LAST APPT W/ STEPANIC) NEW COMPLAINT, (R) HIP. SYMPTOMS FOR ~3 WKS ; DENIES ANY INJURY XRAYS DONE TODAY, 12/19/23 IN [facility] PAIN IS INTERMITTENT WITH CERTAIN MOVEMENTS / GOING UP STAIRS / LAYING IN BED. PAIN IS LATERAL - DENIES ANY RADIATING PAIN, NO N/T. NOTES PAINFUL ROM ; DENIES ANY INSTABILITY. TAKING TYLENOL - DENIES ANY RELIEF. TAKES COUMADIN ; H/O DVT 2018 S/P (R) TKA W/ PERSONA 02/12/20 (~4YRS) ALLERGIES: Allergies Allergen Reactions Sulfa Antibiotics Other Reaction(s): Unknown, unknown (child) Unknown reaction. Patient told since childhood she was allergic. Sulfamethoxazole-Trimethoprim Unknown HOME MEDICATIONS: Current Outpatient Medications Medication Instructions albuterol HFA (ProAir HFA) 90 mcg/act inhaler 1 puff, Inhalation, Every 4 hours PRN ascorbic acid (VITAMIN C) 1,000 mg, Oral, Daily RT atorvastatin (LIPITOR) 20 mg, Oral, Every 24 hours B Complex Vitamins (B COMPLEX 1 PO) 1 tablet, Oral, Daily biotin 1 MG capsule 1 capsule, Oral, Daily Breo Ellipta 100-25 MCG/ACT aerosol powder 1 puff, Inhalation, Daily cholecalciferol (D3-5) 5,000 Units, Oral, Daily RT Cyanocobalamin (Vitamin B12) 1000 MCG tablet controlled-release 1 tablet, Oral, Every 24 hours cycloSPORINE (Restasis) 0.05 % ophthalmic emulsion 1 drop, Both Eyes, Every 12 hours ergotamine-caffeine (Cafergot) 1-100 MG tablet 1 tablet, Oral, Once as needed fluticasone (Flonase) 50 MCG/ACT nasal spray 2 sprays, Each Nostril, Daily, Shake gently. Before first use, prime pump. After use, clean tip and replace cap. Glucosamine 500 MG capsule 2 tablets, Oral, Every 24 hours Imitrex 100 mg, Every 12 hours magnesium 250 MG tablet 1 tablet, Oral, Every 24 hours montelukast (SINGULAIR) 10 mg, Oral, Nightly Multiple Vitamin (Multi-Vitamin) tablet 1 tablet, Oral, Daily pregabalin (LYRICA) 75 mg, Oral, Daily Pyridoxine HCl (Vitamin B6) 100 MG tablet 1 tablet, Oral, Every 24 hours warfarin (COUMADIN) 5 mg, Oral Zinc 10 MG lozenge Zinc PHYSICAL EXAM: Hip Musculoskeletal Exam Gait Gait is normal. Inspection Leg length disparity: no discrepancy Right Erythema: none Ecchymosis: none Edema: none Deformity: none Palpation Right Right hip palpation is normal. Increased warmth: none Tenderness: present Greater trochanteric region pain: moderate Range of Motion Right Right hip range of motion is within functional limits. Active ROM: normal. Passive ROM: normal. Strength Right Right hip strength is normal. Extension: 5/5. Flexion: 5/5. Internal rotation: 5/5. External rotation: 5/5. Adduction: 5/5. Abduction: 5/5. Abduction is affected by pain. Neurovascular Right Right hip neurovascular exam is normal. Pulses - PT: normal Posterior tibial: 2+ Special Tests Right RICKY test (right): negative Special tests additional comments: + stiffness with motion. + oberers test. General Constitutional: appears stated age Labored breathing: no Psychiatric: normal mood and affect Neurological: alert and oriented x3 Skin: intact Lymphadenopathy: none Vitals: There is no height or weight on file to calculate BMI. Tobacco Use: Low Risk (12/19/2023) Patient History Smoking Tobacco Use: Never Smokeless Tobacco Use: Never Passive Exposure: Not on file Alcohol Use: Not At Risk (02/27/2019) Received from [facility], [facility] AUDIT-C Frequency of Alcohol Consumption: Monthly or less Average Number of Drinks: 1 or 2 Frequency of Binge Drinking: Never IMAGING: XR hip right 2 or 3 views Imaging Result: L Inj/Asp: R greater trochanteric bursa on 12/19/2023 10:32 AM Indications: pain Details: 21 G needle, lateral approach Medications: 40 mg methylPREDNISolone acetate 40 MG/ML; 1 mL bupivacaine PF 0.5 % Outcome: tolerated well, no immediate complications UTILIZING ASEPTIC TECHNIQUE PT GIVEN INJECTION IN RIGHT HIP BURSA NEUROVASC INTACT S/P INJ, TOLERATED WELL Procedure, treatment alternatives, risks and benefits explained, specific risks discussed. Consent was given by the patient. Patient was prepped and draped in the usual sterile fashion. Orders Placed This Encounter Procedures L Inj/Asp This order was created via procedure documentation XR hip right 2 or 3 views Order Specific Question: Reason for exam: Answer: PAIN ASSESSMENT: ICD-10-CM 1. Acute right hip pain M25.551 XR hip right 2 or 3 views 2. Trochanteric bursitis of right hip M70.61 3. Gluteal tendonitis of right buttock M76.01 PLAN: + pain with steps and pain with palpation greater troch.. history and exam concerning for hip bursitis. Pt agreeable to HEP with piriformis stretches and injections today with risk and benefits discussed. F/U in 4 wks and consider MRI, vs formal therapy. Xray discussed at bedside. Questions answered in laymen terms at the bedside. The diagnosis, home exercise plan and any ongoing restrictions/ recommendations reviewed. If unable to be reached in office, I recommend evaluation at nearest Emergency Room if any symptoms worsened or new symptoms develop for requiring urgent evaluation. documented in this encounter [facility] 10-17-2023 Note HNO ID: [id number] Author: ALESHA SCHULTE MD Service: ? Author Type: Physician Type: Progress Notes Filed: 10/17/2023 13:33 Note Text: Tmax: 25, 26; Pachy: 548, 546 Lasers and Surgeries: OD: IOL, istent OS: IOL, istent Ocular Medication Intol and Non-efficacy: - Referred by Dr Saul -[facility] 07/05/22 OD full OS full -OCT 07/06/23 OD ? Sup loss OS normal Glaucoma suspect right eye>left eye OCt sl worse right eye No family history SLT. Right eye today duron w/o omplicatios Follow up 6months with TH IOL both eyes - Doing well I, Alesha Schulte MD, have confirmed and edited as necessary the relevant ophthalmic history, ROS, and the neuro exam findings as obtained by others. I have seen and examined Myla Pollack. I have discussed the case and the management of this patient's care with the Resident/Fellow, if applicable. I also have reviewed and agree with the assessment and plan as stated above and agree with all of its relevant components. Alesha Schulte MD October 17, 2023 [facility] 10-17-2023 History of Present illness Narrative Tmax: 25, 26; Pachy: 548, 546 Lasers and Surgeries: OD: IOL, istent OS: IOL, istent Ocular Medication Intol and Non-efficacy: - Referred by Dr Saul -[facility] 07/05/22 OD full OS full -OCT 07/06/23 OD ? Sup loss OS normal Glaucoma suspect right eye>left eye OCt sl worse right eye No family history SLT. Right eye today duron w/o omplicatios Follow up 6months with TH IOL both eyes - Doing well I, Alesha Schulte MD, have confirmed and edited as necessary the relevant ophthalmic history, ROS, and the neuro exam findings as obtained by others. I have seen and examined Myla Pollack. I have discussed the case and the management of this patient's care with the Resident/Fellow, if applicable. I also have reviewed and agree with the assessment and plan as stated above and agree with all of its relevant components. Alesha Schulte MD October 17, 2023 documented in this encounter [facility] 09-05-2023 Note Date of Procedure 09/05/2023 [place] Protocol Safety Checklist Sign In: A moment to CARE completed, Special equipment verified, Appropriate PPE verified, Patient name, date of , allergies and intended procedure verified. Provider Confirms: Intended patient and procedure match the source document, Consent documented and matches the intended procedure, Correct side/site marked visible. No relevant labs, photos, and/or imaging studies to review. Medications required for procedure verified. No fire risk. No implants. Anesthesia 1-2 drops Topical 0.5% Proparacaine. Pre Laser Meds 1-2 drops Brimondine 0.2%, 1-2 drops Cosopt. Laser type Selective Laser Trabeculoplasy. Extent of Treatment 360 . Laser Paramters Duration: 0.3 seconds. Spot Size: 400 microns. Power: 1.1. Total Spots: 103. Post Laser Meds None, 1-2 drops Cosopt, 1-2 drops Brimonidine 0.2%. Post Laser IOP 16. Measured at: 11:28 AM. Home Going Prescription None. Sign Out Sign out discussion completed, All instruments, equipment, and/or possible retained foreign bodies accounted for, Post-procedure follow up management communicated. No specimens. [facility] 09-05-2023 Note HNO ID: [id number] Author: ALESHA SCHULTE MD Service: ? Author Type: Physician Type: Progress Notes Filed: 09/05/2023 11:36 Note Text: Tmax: 25, 26; Pachy: 548, 546 Lasers and Surgeries: OD: IOL, istent OS: IOL, istent Ocular Medication Intol and Non-efficacy: - Referred by Dr Kg HERNÁNDEZ 07/05/22 OD full OS full -OCT 07/06/23 OD ? Sup loss OS normal Glaucoma suspect right eye>left eye OCt sl worse right eye No family history SLT. Right eye today duron w/o omplicatios Follow up 6 - 8 weeks VATA IOL both eyes - Doing well I, Aelsha Schulte MD, have confirmed and edited as necessary the relevant ophthalmic history, ROS, and the neuro exam findings as obtained by others. I have seen and examined Myla Pollack. I have discussed the case and the management of this patient's care with the Resident/Fellow, if applicable. I also have reviewed and agree with the assessment and plan as stated above and agree with all of its relevant components. Alesha Schulte MD September 05, 2023 [facility] 09-05-2023 History of Present illness Narrative Tmax: 25, 26; Pachy: 548, 546 Lasers and Surgeries: OD: IOL, istent OS: IOL, istent Ocular Medication Intol and Non-efficacy: - Referred by Dr Kg HERNÁNDEZ 07/05/22 OD full OS full -OCT 07/06/23 OD ? Sup loss OS normal Glaucoma suspect right eye>left eye OCt sl worse right eye No family history SLT. Right eye today duron w/o omplicatios Follow up 6 - 8 weeks VATA IOL both eyes - Doing well I, Alesha Schulte MD, have confirmed and edited as necessary the relevant ophthalmic history, ROS, and the neuro exam findings as obtained by others. I have seen and examined Myla Pollack. I have discussed the case and the management of this patient's care with the Resident/Fellow, if applicable. I also have reviewed and agree with the assessment and plan as stated above and agree with all of its relevant components. Alesha Schulte MD September 05, 2023 documented in this encounter [facility] 07-27-2023 Note Date of Procedure 07/27/2023. Waste [employer] Waste Chopper Information Sexologist: pd. Reliability Right Eye Good. Left Eye Good. Interpretation Right Eye Normal. Left Eye Normal. [facility] 07-27-2023 Note Date of Procedure 07/27/2023. 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 Quality Right Eye Good. Left Eye Good. NFL Interpretation Right Eye Superior loss. Left Eye Normal. [facility] 07-27-2023 Note HNO ID: [id number] Author: ALESHA SCHULTE MD Service: ? Author Type: Physician Type: Progress Notes Filed: 07/27/2023 08:40 Note Text: Tmax: 25, 26; Pachy: 548, 546 Lasers and Surgeries: OD: IOL, istent OS: IOL, istent Ocular Medication Intol and Non-efficacy: - Referred by Dr Saul -[facility] 07/05/22 OD full OS full -OCT 07/06/23 OD ? Sup loss OS normal - Glaucoma suspect right eye>left eye OCt sl worse right eye No family history SLT. Right eye next visit IOL both eyes I, Alesha Schulte MD, have confirmed and edited as necessary the relevant ophthalmic history, ROS, and the neuro exam findings as obtained by others. I have seen and examined Myla Pollack. I have discussed the case and the management of this patient's care with the Resident/Fellow, if applicable. I also have reviewed and agree with the assessment and plan as stated above and agree with all of its relevant components. [facility] 07-27-2023 History of Present illness Narrative Tmax: 25, 26; Pachy: 548, 546 Lasers and Surgeries: OD: IOL, istent OS: IOL, istent Ocular Medication Intol and Non-efficacy: - Referred by Dr Saul -[facility] 07/05/22 OD full OS full -OCT 07/06/23 OD ? Sup loss OS normal - Glaucoma suspect right eye>left eye OCt sl worse right eye No family history SLT. Right eye next visit IOL both eyes I, Alesha Schulte MD, have confirmed and edited as necessary the relevant ophthalmic history, ROS, and the neuro exam findings as obtained by others. I have seen and examined Myla Pollack. I have discussed the case and the management of this patient's care with the Resident/Fellow, if applicable. I also have reviewed and agree with the assessment and plan as stated above and agree with all of its relevant components. documented in this encounter [facility] 07-14-2023 Evaluation + Plan note Associated Problem(s): Lymphedema Compression therapy leg elevation and follow up in the clinic in 1 year. [facility] 07-14-2023 Miscellaneous Notes Associated Problem(s): Lymphedema Compression therapy leg elevation and follow up in the clinic in 1 year. documented in this encounter [facility] 07-14-2023 History of Present illness Narrative Images from the original note were not included. To: KENYETTA REYNOLDS MD HPI: Myla Pollack is a 73 y.o. female with Known left lower extremity lymphedema. It has been stable. She uses compression therapy. She also has a diagnosis of venous insufficiency. However the swelling involves her toes. I do believe that she has more lymphedema element then venous insufficiency. Review of Systems: Review of Systems Constitutional: Negative. HENT: Negative. Respiratory: Negative. Cardiovascular: Negative. Gastrointestinal: Negative. Endocrine: Negative. Genitourinary: Negative. Musculoskeletal: Negative. Skin: Negative. Neurological: Negative. Hematological: Negative. Medications: Current Outpatient Medications on File Prior to Visit Medication Sig Dispense Refill albuterol (PROVENTIL HFA;VENTOLIN HFA) 90 mcg/actuation inhaler ProAir HFA 90 mcg/actuation aerosol inhaler ascorbic acid, vitamin C, (VITAMIN C) 1000 mg tablet Take 1 tablet (1,000 mg total) by mouth in the morning. atorvastatin (LIPITOR) 20 mg tablet TAKE 1 TABLET BY MOUTH ONE TIME A DAY b complex vitamins tablet Take 1 tablet by mouth in the morning. crwisbvtrh-dwexvzzhrhzzm-bwya (FIORICET, ESGIC) 50-325-40 mg per tablet Take 1 tablet by mouth every 4 (four) hours as needed. cholecalciferol, vitamin D3, 5,000 units tablet Take 1 tablet (5,000 Units total) by mouth in the morning. CHONDROITIN SULFATE A ORAL daily. cycloSPORINE (RESTASIS) 0.05 % ophthalmic emulsion Administer 1 drop to both eyes every 12 (twelve) hours. fluticasone propionate (FLONASE) 50 mcg/actuation nasal spray Administer into each nostril daily. furosemide (LASIX) 40 mg tablet Take 1 tablet (40 mg total) by mouth daily. magnesium 250 mg tablet 1 mg daily. montelukast (SINGULAIR) 10 mg tablet Take 1 tablet (10 mg total) by mouth nightly. multivit-min/ferrous fumarate (MULTI VITAMIN ORAL) daily. POLY-IRON 150 FORTE 150-25-1 mg-mcg-mg capsule Take 1 capsule by mouth in the morning. potassium chloride (KLOR-CON SPRINKLE) 10 MEQ CR capsule pregabalin (LYRICA) 75 mg capsule Take 1 capsule (75 mg total) by mouth in the morning and 1 capsule (75 mg total) before bedtime. pyridoxine, vitamin B6, (B-6) 100 mg tablet Take 1 tablet (100 mg total) by mouth in the morning. SUMAtriptan (IMITREX) 100 mg tablet TAKE 1 TABLET BY MOUTH ONCE DAILY NEEDED FOR PAIN AT ONSET OF HEADACHE; MAY REPEAT DOSE IN 2 HOURS IF NEEDED; MAX 2 TABS PER DAY. SYMBICORT 80-4.5 mcg/actuation inhaler Inhale 1 puff in the morning and 1 puff before bedtime. tiotropium bromide 2.5 mcg/actuation mist Inhale 2 (two) times a day. warfarin (COUMADIN) 5 mg tablet Take 1 tablet (5 mg total) by mouth in the evening. 5 mg M-W-F, 7.5 mg Nyj-Ptmu-Avpqw-Sat . anastrozole (ARIMIDEX) 1 mg chemo tablet Take 1 mg by mouth daily (Patient not taking: Reported on 09/25/2021) spironolactone (ALDACTONE) 25 mg tablet Take 1 tablet (25 mg total) by mouth in the morning. (Patient not taking: Reported on 07/14/2023) No current facility-administered medications on file prior to visit. Past Medical History: Past Medical History: Diagnosis Date Acute cystitis without hematuria Asthma [place]ch[place] Headache Hyperlipidemia Osteoarthritis right knee Pulmonary embolism [place] Thrush top partial Vasculitis [place] Visual impairment readers Past Surgical History: Past Surgical History: Procedure Laterality Date COLONOSCOPY OTHER SURGICAL HISTORY 10/[address] Tian OTHER SURGICAL HISTORY 09/2007 bunionectomy OTHER SURGICAL HISTORY 02/19/2015 right mastectomy OTHER SURGICAL HISTORY 2019 plate and screw placement in right big toe OTHER SURGICAL HISTORY Right right carpal tunnel x 5 to 6 yrs ago REPLACEMENT TOTAL JOINT KNEE Right 02/12/2020 Performed by Todd Boudreaux Jr., DO at [facility] Social and Family History: Social History Socioeconomic History Marital status: Spouse name: Not on file Number of children: Not on file Years of education: Not on file Highest education level: Not on file Occupational History Not on file Tobacco Use Smoking status: Never Smokeless tobacco: Never Vaping Use Vaping status: Never Used Substance and Sexual Activity Alcohol use: Not Currently Comment: very rare Drug use: Never Sexual activity: Defer Other Topics Concern Not on file Social History Narrative Not on file Social Determinants of Health Financial Resource Strain: Not on file Food Insecurity: No Food Insecurity (07/14/2023) Hunger Screening Food Insecurity - Worry: Never True Food Insecurity - Inability: Never True Transportation Needs: Not on file Physical Activity: Not on file Stress: Not on file Social Connections: Not on file Interpersonal Safety: Not on file Housing Instability: Not on file Family History Problem Relation Age of Onset Heart disease Mother Cancer Mother pancreatic Diabetes Mother Recent Labs: Recent and relative labs were reviewed and interpreted and contributed to the assessment and plan below. Vitals: BP 134/84 (BP Site: Left Arm, BP Postition: Sitting, BP CUFF SIZE: L (13-17 inches)) Pulse 79 Ht 157.5 cm (5' 2 ) Wt 74.4 kg (164 lb) BMI 30.00 kg/m Body mass index is 30 kg/m . Physical Exam: Physical Exam Constitutional: Appearance: Normal appearance. HENT: Head: Normocephalic and atraumatic. Mouth/Throat: Mouth: Mucous membranes are moist. Eyes: Extraocular Movements: Extraocular movements intact. Pupils: Pupils are equal, round, and reactive to light. Cardiovascular: Rate and Rhythm: Normal rate and regular rhythm. Pulmonary: Effort: Pulmonary effort is normal. Breath sounds: Normal breath sounds. Abdominal: General: Abdomen is flat. Bowel sounds are normal. Palpations: Abdomen is soft. Musculoskeletal: General: Swelling present. Normal range of motion. Cervical back: Normal range of motion. Skin: General: Skin is warm and dry. Neurological: General: No focal deficit present. Mental Status: She is alert and oriented to person, place, and time. Mental status is at baseline. Psychiatric: Mood and Affect: Mood normal. Behavior: Behavior normal. Thought Content: Thought content normal. Judgment: Judgment normal. Recent testing: Assessment and Plan: Problem List Other Lymphedema - Primary Current Assessment & Plan Compression therapy leg elevation and follow up in the clinic in 1 year. Myla was seen today for vasculitis. Diagnoses and all orders for this visit: Lymphedema Lynsey Saldana MD, TREVIN, RPVI, FSVS, FACS [facility] This note was created with the assistance of a speech recognition program. While intending to generate a timely document that accurately reflects the content of the visit, no guarantee can be provided that every grammatical or spelling mistake has been or will be identified or corrected. Thank you for your understanding. documented in this encounter [facility] 01-17-2023 History of Present illness Narrative Tmax: 25, 26; Pachy: 548, [...] others. I have seen and examined Myla Pollack. I have discussed the case and the management of this patient's care with the Resident/Fellow, if applicable. I also have reviewed and agree with the assessment and plan as stated above and agree with all of its relevant components. documented in this encounter [facility] 07-05-2022 History of Present illness Narrative Tmax: 25, 26; Pachy: 548, [...] others. I have seen and examined Myla Pollack. I have discussed the case and the management of this patient's care with the Resident/Fellow, if applicable. I also have reviewed and agree with the assessment and plan as stated above and agree with all of its relevant components. documented in this encounter [facility] 03-19-2022 Note PROCEDURE: XR WRIST RT MIN 3 V HISTORY: Unspecified fall ; acute right wrist pain after falling COMPARISON: None. FINDINGS: BONES:No fracture, acute abnormality, or significant arthropathy. SOFT TISSUES:No visible soft tissue swelling. EFFUSION:None visible. OTHER: Negative. IMPRESSION: 1. No acute bone abnormality. 2. Multifocal mild degenerative changes. Electronically authenticated by: ADIEL MCCONNELL Date: 2022-03-19 10:26 [place] 03-11-2022 Miscellaneous Notes *SECOND ATTEMT* Called patient and LVM for her to call back and schedule an appt with for glaucoma suspect. Referral from Dr. Sebastian. Called patient and LVM to schedule an appointment with Dr. Schulte for GLC suspect. documented in this encounter [facility] 01-21-2022 Progress note Note Date/Time January 21, 2022 10:15[facility] [place] [address] Hem/Onc Follow Up Note - OP Signed Patient: Myla Pollack MR#: [id number] : 1950 Acct:[id number] Age/Sex: 71 / F Type: REG RCR [...] normal on AI therapy. 07/21/2020: Video visit (kaitlynn.) for 4-month follow-up and review of her [...] of anastrozole, we will now follow annually [facility] patient wishes to return to oncology). We will arrange her annual follow-ups after her annual mammograms in January of each year. She also requested refill of breast prosthesis and mastectomy bra. No breast exam due to telephone visit. No skin changes or breast tenderness. No recent f/u by [employer] in [place]--was reported to have vasculitis 4 years ago--now resolved but still has some mild erythema and swelling of left greater than right leg without pain. Receives Anastrozole due to weak NE expression--no significant myalgias/arthralgias or hot flashes. No [...] pT1c, N0, M0. Tumor was ER negative, NE weak, and HER-2 nonamplified. She underwent right mastectomy at [place] in 02/2015. Completed dose dense AC X4 [...] years of adjuvant therapy. 3. Evaluated by [employer]house brak[employer] in [place] (does not believe she had vasculitis)--no recent [...] inflammatory. She was referred to pulmonary at [place]. Ground glass opacities resolved on PET/CT 08/2017. [...] of Therapies: 1. Right breast mastectomy at [facility] (Dr. Rodriguez) in 02/2015. 2. Completed [...] nodes positive, pT1c, N0, M0. ER negative, NE weak, and HER-2 nonamplified. (1) Breast cancer, right Qualifiers: Estrogen receptor status: negative Patient sex: female 1. 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 ER negative, NE weak, and HER-2 nonamplified. 2. She underwent mastectomy at [place] in 02/2015. Completed dose dense AC X4 and Taxol X 12 in August 2015. 3. 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 Anastrozole was resumed in 03/2017 4. Saw [employer] brakeman in [place] for persistent leg pain and swelling (he [...] inflammatory. She was referred to pulmonary at [place]. --Followup PET/CT 08/2017 showed resolution of prior [...] for coordination of care (as documented) and kgju-bg-jqjv counseling of patient and/or family. Dictated By: Claire Duran APRN DD/ 1014 Signed By: <Electronically signed by CHIDI Duran> 01/21/22 1041 [facility] Work Phone: 1(605) 881-416010-20-2021 Progress note Author Kacie Garay [facility] January 21, 2021 8:25pm Note Date/Time January 21, 2021 1 0:34am [facility] [place] [address] Hem/Onc Follow Up Note - OP Signed Patient: Myla Pollack MR#: [id number] : 1950 Acct:[id number] Age/Sex: 70 / F Type: REG RCR [...] normal on AI therapy. 07/21/2020: Video visit ([email or web address]) for 4-month follow-up and review of her [...] of anastrozole, we will now follow annually ([facility] patient wishes to return to oncology). We will arrange her annual follow-ups after her annual mammograms in January of each year. She also requested refill of breast prosthesis and mastectomy bra. No breast exam due to telephone visit. No skin changes or breast tenderness. No recent f/u by [employer] bra[employer] in [place]--was reported to have vasculitis 4 years ago--now resolved but still has some mild erythema and swelling of left greater than right leg without pain. Receives Anastrozole due to weak NE expression--no significant myalgias/arthralgias or hot flashes. No [...] pT1c, N0, M0. Tumor was ER negative, NE weak, and HER-2 nonamplified. She underwent right mastectomy at [place] in 02/2015. Completed dose dense AC X4 [...] years of adjuvant therapy. 3. Evaluated by [employer]house brakeman in [place] (does not believe she had vasculitis)--no recent [...] inflammatory. She was referred to pulmonary at [place]. Ground glass opacities resolved on PET/CT 08/2017. [...] of Therapies: 1. Underwent right mastectomy at [place] in 02/2015. 2. Completed dose dense AC [...] nodes positive, pT1c, N0, M0. ER negative, NE weak, and HER-2 nonamplified. (1) Breast cancer, right Qualifiers: Estrogen receptor status: negative Patient sex: female 1. 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 ER negative, NE weak, and HER-2 nonamplified. 2. She underwent mastectomy at [place] in 02/2015. Completed dose dense AC X4 and Taxol X 12 in August 2015. 3. 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 Anastrozole was resumed in 03/2017 4. Saw [employer] brakeman in [place] for persistent leg pain and swelling (he [...] inflammatory. She was referred to pulmonary at [place]. --Followup PET/CT 08/2017 showed resolution of prior [...] for coordination of care (as documented) and [id number]-zr-[id number] counseling of patient and/or family. Dictated By: Kacie Garay MD DD/ 1034 Signed By: <Electronically signed by MD Kacie Garay> 01/21/212024 [facility] Work Phone: 1(856) 674-101204-19-2021 Progress note Author Kacie Garya [facility] July 21, 2020 11:38am Note Date/Time July 21, 2020 9:3 9am [facility] at [address] [address] Hem/Onc Follow Up Note - OP Signed Patient: Myla Pollack MR#: [id number] : 1950 Acct:[id number] Age/Sex: 70 / F Type: REG RCR Copies to: Kenyetta Reynolds MD~ Subjective Date/Time of Service: Date of Service: 07/21/2020 Time of Service: 09:36 Chief Complaint: Patient has consented to doxy visit for 4 month follow up visitfor breast cancer and to review bone densitometry test. HPI: Patient had video visit ([email or web address]) today for 4-month follow-up and review of [...] of anastrozole, we will now follow annually ([facility] patient wishes to return to oncology). We will arrange her annual follow-ups after her annual mammograms in January of each year. She also requested refill of breast prosthesis and mastectomy bra. No breast exam due to telephone visit. No skin changes or breast tenderness. No recent f/u by [employer] bra[employer]eman in [place]--was reported to have vasculitis 4 years ago--now resolved but still has some mild erythema and swelling of left greater than right leg without pain. Receives Anastrozole due to weak NE expression--no significant myalgias/arthralgias or hot flashes. No [...] pT1c, N0, M0. Tumor was ER negative, NE weak, and HER-2 nonamplified. She underwent right mastectomy at [place] in 02/2015. Completed dose dense AC X4 [...] years of adjuvant therapy. 3. Evaluated by [employer] bra[employer]eman in [place] (does not believe she had vasculitis)--no recent [...] inflammatory. She was referred to pulmonary at [place]. Ground glass opacities resolved on PET/CT 08/2017. [...] of Therapies: 1. Underwent right mastectomy at [place] in 02/2015. 2. Completed dose dense AC [...] albuterol sulfate 1 puff INHALATION Q6H PRN 10/04/17 [History Confirmed 07/21/20] ascorbic acid (vitamin C) [...] nodes positive, pT1c, N0, M0. ER negative, NE weak, and HER-2 nonamplified. (1) Breast cancer, right Qualifiers: Estrogen receptor status: negative Patient sex: female 1. 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 ER negative, NE weak, and HER-2 nonamplified. 2. She underwent mastectomy at [place] in 02/2015. Completed dose dense AC X4 and Taxol X 12 in August 2015. 3. 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 Anastrozole was resumed in 03/2017 4. Saw [employer] brakeman in [place] for persistent leg pain and swelling (he [...] inflammatory. She was referred to pulmonary at [place]. --Followup PET/CT 08/2017 showed resolution of prior [...] for coordination of care (as documented) and [id number]-[id number] counseling of patient and/or family. Dictated By: Kacie Garay MD DD/ 0936 Signed By: <Electronically signed by MD Kacie Garay> 07/21/20 5520 [facility] Work Phone: [phone]) [phone] Progress note Author Kacie Garay [facility] March 12, 2020 2:49pm Note Date/Time March 12, 2020 9 :56am [facility] [place] [address] Hem/Onc Follow Up Note - OP Signed Patient: Myla Pollack MR#: [id number] : 1950 Acct:[id number] Age/Sex: 69 / F Type: REG RCR [...] or breast tenderness. No recent f/u by [employer] bra[employer]eman in [place]--was reported to have vasculitis 4 years ago--now resolved but still has some mild erythema and swelling of left greater than right leg without pain. Receives Anastrozole due to weak NE expression--no significant myalgias/arthralgias or hot flashes. No [...] pT1c, N0, M0. Tumor was ER negative, NE weak, and HER-2 nonamplified. She underwent right mastectomy at [place] in 02/2015. Completed dose dense AC X4 [...] of extended adjuvant therapy. 3. Evaluated by [employer]house brakeman in [place] (does not believe she had vasculitis)--no recent [...] inflammatory. She was referred to pulmonary at [place]. Ground glass opacities resolved on PET/CT 08/2017. [...] of Therapies: 1. Underwent right mastectomy at [place] in 02/2015. 2. Completed dose dense AC [...] lymph nodes positive, pT1c, N0,M0. ER negative, NE weak, and HER-2 nonamplified. 2. She underwent mastectomy at [place] in 02/2015. Completed dose dense AC X4 and Taxol X 12 in August 2015. 3. 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 Anastrozole was resumed in 03/2017 4. Saw [employer]house brakeman in [place] for persistent leg pain and swelling (he [...] inflammatory. She was referred to pulmonary at [place]. --Followup PET/CT 08/2017 showed resolution of prior [...] for coordination of care (as documented) and iggd-cj-lwhn counseling of patient and/or family. Dictated By: Kacie Garay MD DD/ 0954 Signed By: <Electronically signed by MD Kacie Garay> 03/12/20 8750 [facility] Work Phone: [phone]) 353-144506-03-2020 Progress note Author Kacie Garay [facility] September 05, 2019 1:07pm Note Date/Time September 05, 2019 10:57 am [facility] [place] [address] Hem/Onc Follow Up Note - OP Signed Patient: Myla Pollack MR#: [id number] : 1950 Acct:[id number] Age/Sex: 69 / F Type: REG RCR [...] or breast tenderness. No recent f/u by [employer] brakeman in [place]--was reported to have vasculitis 3 years ago--now resolved but still has some mild erythema and swelling of left greater than right leg without pain. Receives Anastrozole due to weak NE expression--no significant myalgias/arthralgias or hot flashes. No [...] pT1c, N0, M0. Tumor was ER negative, NE weak, and HER-2 nonamplified. She underwent right mastectomy at [place] in 02/2015. Completed dose dense AC X4 and Taxol X 12 in August 2015. 2. Anastrozole with calcium and vitamin D started in August 2015. Calcium and vitamin D discontinued 07/2016 Anastrozole stopped in 01/2017 when she developed vasculitis (erythematous rash over legs) although no proven association at this time. Anastrozole was resumed in 03/2017 3. Evaluated by [employer]house brakeman in [place] (does not believe she had vasculitis)--no recent [...] inflammatory. She was referred to pulmonary at [place]. Ground glass opacities resolved on PET/CT 08/2017. [...] of Therapies: 1. Underwent right mastectomy at [place] in 02/2015. 2. Completed dose dense AC [...] nodes positive, pT1c, N0, M0. ER negative, NE weak, and HER-2 nonamplified. 2. She underwent mastectomy at [facility] in 02/2015. Completed dose dense AC X4 and Taxol X 12 in August 2015. 3. 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 Anastrozole was resumed in 03/2017 4. Saw [employer] brakeman in [place] for persistent leg pain and swelling (he [...] inflammatory. She was referred to pulmonary at [place]. --Followup PET/CT 08/2017 showed resolution of prior [...] vasculitis but per second opinion from a enginehouse brakeman and hand wood sander in [place] this is not vasculitis. They told her [...] for coordination of care (as documented) and [id number]-xz-[id number] counseling of patient and/or family. Dictated By: Kacie Garay MD DD/ 1056 Signed By: <Electronically signed by MD Kacie Garay> 09/05/19 1306 [facility] Work Phone: [phone]) 731-160311-21-2019 History of Past illness Narrative* Problem Noted Date Resolved Date Combined forms of age-related cataract of both e yes 02/22/2019 03/21/2019 documented as of this encounter (statuses as of 03/11/2022) [facility]11-[facility]-2019 History of Past illness Narrative* Problem Noted Date Resolved Date Combined forms of age-related cataract of both e yes 02/22/2019 03/21/2019 documented as of this encounter (statuses as of 07/05/2022) [facility] History of Past illness Narrative* Problem Noted Date Diagnosed Date Resolved Date Combined forms of age-relate d cataract of both eyes 02/22/2019 03/21/2019 documented as of this encounter (statuses as of 01/17/2023) [facility] Progress note Author Kacie Garay [facility] January 22, 2019 9:28pm Note Date/Time January 22, 2019 1 0:40am [facility] [place] [id number] Hem/Onc Follow Up Note - OP Signed Patient: Myla Pollack MR#: [id number] : 1950 Acct:[id number] Age/Sex: 68 / F Type: REG RCR [...] or breast tenderness. [facility] [place]was reported to have vasculitis 2 1/2 years ago--now resolved. Receives Anastrozole due to weak NE expression--no significant myalgias/arthralgias or hot flashes. No bowel or bladder complaints. No interval changes in medical history. We reviewed DEXA scan showing normal bone density 07/17/2018. DIAGNOSIS: 1. 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 Tumor was ER negative, NE weak, and HER-2 nonamplified. She underwent right mastectomy at [place] in 02/2015. Completed dose dense AC X4 and Taxol X 12 in August 2015. 2. Anastrozole with calcium and vitamin D started in August 2015. Calcium and vitamin D discontinued 07/2016 Anastrozole stopped in 01/2017 when she developed vasculitis (erythematous rash over legs) although no proven association at this time. Anastrozole was resumed in 03/2017 3. Evaluated by enginehouse brakeman in [place] (does not believe she had vasculitis)--no recent [...] inflammatory. She was referred to pulmonary at [place]. Ground glass opacities resolved on PET/CT 08/2017. [...] of Therapies: 1. Underwent right mastectomy at [place] in 02/2015. 2. Completed dose dense AC [...] nodes positive, pT1c, N0, M0. ER negative, NE weak, and HER-2 nonamplified. 2. She underwent mastectomy at [place] in 02/2015. Completed dose dense AC X4 and Taxol X 12 in August 2015. 3. 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 Anastrozole was resumed in 03/2017 4. Saw enginehouse brakeman in [place] for persistent leg pain and swelling (he [...] inflammatory. She was referred to pulmonary at [place]. --Followup PET/CT 08/2017 showed resolution of prior [...] vasculitis but per second opinion from a enginehouse brakeman and hand wood sander in [place] this is not vasculitis. They told her [...] for coordination of care (as documented) and lyri-bm-stkc counseling of patient and/or family. Dictated By: Kacie Garay MD DD/ 1039 Signed By: <Electronically signed by MD Kacie Garay> 01/22/19 8848 [facility] Work Phone: [phone] Progress note Author Kacie Garay [facility] July 19, 2018 8:36pm Note Date/Time July 19, 2018 10: 48am [facility] [place] [address] Hem/Onc Follow Up Note - OP Signed Patient: Myla Pollack MR#: [id number] : 1950 Acct:[id number] Age/Sex: 68 / F Type: REG RCR [...] pT1c, N0, M0. Tumor was ER negative, NE weak, and HER-2 nonamplified. She underwent right mastectomy at [place] in 02/2015. Completed dose dense AC X4 and Taxol X 12 in August 2015. 2. Anastrazole with calcium and vitamin D started in August 2015, Calcium and vitamin D discontinued 07/2016 Anastrozole stopped in 01/2017 when she developed vasculitis (erythematous rash over legs) although no proven association at this time. Anastrozole was resumed in 03/2017 3. Evaluated by enginehouse brakeman in [place] (does not believe she had vasculitis)--no recent [...] inflammatory. She was referred to pulmonary at [place]. Ground glass opacities resolved on PET/CT 08/2017. [...] or breast tenderness. No recent f/u by enginehouse brakeman [facility]--was reported to have vasculitis 2 years ago--now resolved. Receives Anastrozole due to weak NE expression--no significant myalgias/arthralgias or hot flashes. No bowel or bladder complaints. No interval changes in medical history. We reviewed DEXA scan showing normal bone density 07/17/2018. - Summary of Therapies Summary of Therapies: 1. Underwent right mastectomy at [place] in 02/2015. 2. Completed dose dense AC [...] physician into a diagnostic report(s) for Myla Pollack. I have reviewed the report(s) and am incorporating any findings in the treatment plan of this patient where applicable. DEXA scan 07/17/2018 reviewed--normal. Annual bilateral mammography at [facility] 01/2018--ordered 6 month f/u mammogram prior to next f/u. Assessment and Plan (1) Breast cancer, right Qualifiers: Estrogen receptor status: negative Patient sex: female 1. 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 ER negative, NE weak, and HER-2 nonamplified. 2. She underwent mastectomy at [place] in 02/2015. Completed dose dense AC X4 and Taxol X 12 in August 2015. 3. Anastrazole with calcium and vitamin D started in August 2015, Calcium and vitamin D discontinued 07/2016 Anastrozole stopped in 01/2017 when she developed vasculitis although there is no proven association at this time. Anastrozole was resumed in 03/2017 4. Seeing enginehouse brakeman in [place] for persistent leg pain and swelling (he [...] inflammatory. She was referred to pulmonary at [place]. --Followup PET/CT 08/2017 showed resolution of prior [...] unless new symptoms arise. Annual mammogram at [facility] prior to next followup. DEXA normal--f/u in [...] vasculitis but per second opinion from a enginehouse brakeman and hand wood sander in [place] this is not vasculitis. They told her [...] for coordination of care (as documented) and jtqy-ro-xhgk counseling of patient and/or family. Dictated By: Kacie Garay MD DD/ 1049 Signed By: <Electronically signed by MD Kacie Garay> 07/19/18 2035 [facility] Work Phone: [phone]) 111-246310-17-2018 Progress note Author Kacie Garay [facility] January 18, 2018 8:17pm Note Date/Time January 17, 2018 3 :44pm [facility] at [address] [address] Hem/Onc Follow Up Note - OP Signed Patient: Myla Pollack MR#: [id number] : 1950 Acct:[id number] Age/Sex: 67 / F Type: REG RCR [...] pT1c, N0, M0. Tumor was ER negative, NE weak, and HER-2 nonamplified. She underwent right mastectomy at [facility] in 02/2015. Completed dose dense AC X4 and Taxol X 12 in August 2015. 2. Anastrazole with calcium and vitamin D started in August 2015, Calcium and vitamin D discontinued 07/2016 Anastrazole stopped in 01/2017 when she developed vasculitis although thereis no proven association at this time. Anastrozole was resumed in 03/2017 3. Now follows with rhematologist in [place] (does not believe she had vasculitis). 4. [...] inflammatory. She was referred to pulmonary at [place]. Ground glass opacities resolved on PET/CT 08/2017. 5. A focus of increased uptake in the liver of uncertain significance was also identified. On MRI of the liver there was no abnormality found. HPI: Patient returns to the clinic for transfer of care from Dr. Steiner. No changes on self breast exam. No skin changes or breast tenderness. She is seeing a enginehouse brakeman in [place]--was reported to have vasculitis of legs about a yearago. Receives Anastrozole due to weak NE expression--no significant myalgias/arthralgias or hot flashes. No bowel or bladder complaints. - Summary of Therapies Summary of Therapies: 1. Underwent right mastectomy at [facility] in 02/2015. 2. Completed dose dense AC [...] % (Auto) 27.4 % (.) 01/03/17 17:45 Alfalfa % (Auto) 12.7 % (.) 01/03/17 17:45 Eos % (Auto) 1.5 % (.) 01/03/17 17:45 Baso % (Auto) 0.6 % (.) 01/03/17 17:45 Neut # (Auto) 4.4 x10E3/uL (1.8-7.7) 01/03/17 17:45 Lymph # (Auto) 2.1 x10E3/uL (1.00-4.8) 01/03/17 17:45 Alfalfa # (Auto) 1.0 x10E3/uL (0.0-0.8) H 01/03/17 [...] 3.3 gm/dL (3.2-5.5) 01/03/17 17:45 Globulin 3.6 10/02/17 17:45 Albumin/Globulin Ratio 0.9 01/03/17 17:45 - Impressions Any impression(s) listed above is documentation that was entered by the reading physician into a diagnostic report(s) for Myla Pollack. I have reviewed the report(s) and am incorporating any findings in the treatment plan of this patient where applicable. 01/11/2018--left diagnostic mammogram reviewed from [facility] Left breast stable with scattered benign appearing calcifications and benign appearing lymph nodes. BIRADS 2--Benign findings. Assessment and Plan (1) Breast cancer, right Qualifiers: Estrogen receptor status: negative Patient sex: female Status: Chronic 1. 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 ER negative, NE weak, and HER-2 nonamplified. 2. She underwent mastectomy at [facility] in 02/2015. Completed dose dense AC X4 and Taxol X 12 in August 2015. 3. Anastrazole with calcium and vitamin D started in August 2015, Calcium and vitamin D discontinued 07/2016 Anastrazole stopped in 01/2017 when she developed vasculitis although there is no proven association at this time. Anastrozole was resumed in 03/2017 4. Seeing enginehouse brakeman in [place] for persistent leg pain and swelling (he [...] inflammatory. She was referred to pulmonary at [facility]. Followup PET/CT 08/2017 showed resolution of prior [...] vasculitis but per second opinion from a enginehouse brakeman and hand wood sander in [place] this is not vasculitis. They told her [...] for coordination of care (as documented) and pkdn-ls-wyzb counseling of patient and/or family. 25 - 35 minutes Dictated By: Kcaie Garay MD DD/ 1543 Signed By: <Electronically signed by Kacie Garay MD> 01/18/182016 [facility] Work Phone: [phone] Progress note Author Mohsen Steiner [facility] August 18, 2017 3:25pm Note Date/Time August 18, 2017 3:23p m [facility] [place] [id number] Hem/Onc Follow Up Note - OP Signed Patient: Myla Pollack MR#: [id number] : 1950 Acct:[id number] Age/Sex: 67 / F Type: REG RCR Copies to: Pinky Og DO~ Subjective Date/Time of Service: Date [...] % (Auto) 27.4 % (.) 01/03/17 17:45 Alfalfa % (Auto) 12.7 % (.) 01/03/17 17:45 Eos % (Auto) 1.5 % (.) 01/03/17 17:45 Baso % (Auto) 0.6 % (.) 01/03/17 17:45 Neut # (Auto) 4.4 x10E3/uL (1.8-7.7) 01/03/17 17:45 Lymph # (Auto) 2.1 x10E3/uL (1.00-4.8) 01/03/17 17:45 Alfalfa # (Auto) 1.0 x10E3/uL (0.0-0.8) H 01/03/17 [...] N0, M0. 2. Tumor was ER negative, NE weak, and HER-2 nonamplified. 3. She underwent mastectomy at [facility] in 02/2015. Completed dose dense AC X4 [...] inflammatory. She was referred to pulmonary at [facility] 8. A focus of increased uptake in [...] vasculitis but per second opinion from a enginehouse brakeman and hand wood sander in [place] this is not vasculitis. They told her [...] for coordination of care (as documented) and djii-bw-[id number] counseling of patient and/or family. Dictated By: Mohsen Steiner MD DD/ 151 Signed By: <Electronically signed by Mohsen Steiner MD> 08/18/17 1525 [facility] Work Phone: [phone] Progress note Author Mohsen Steiner [facility] July 21, 2017 3:44pm Note Date/Time July 21, 2017 3:4 0pm [facility] [place] [address] Hem/Onc Follow Up Note - OP Signed Patient: Myla Pollack MR#: [id number] : 1950 Acct:[id number] Age/Sex: 67 / F Type: REG RCR Copies to: Pinky Og DO~ Subjective Date/Time of Service: Date of Service: 07/21/2017 Time of Service: 15:39 Chief Complaint: Patient here for four month follow up appointment with labs. HPI: Patient returns to the clinic for a pre-scheduled follow-up visit that reports that 1. She saw a hand wood sander and enginehouse brakeman in [place]. They do not think that she has [...] % (Auto) 27.4 % (.) 01/03/17 17:45 Alfalfa % (Auto) 12.7 % (.) 01/03/17 17:45 Eos % (Auto) 1.5 % (.) 01/03/17 17:45 Baso % (Auto) 0.6 % (.) 01/03/17 17:45 Neut # (Auto) 4.4 x10E3/uL (1.8-7.7) 01/03/17 17:45 Lymph # (Auto) 2.1 x10E3/uL (1.00-4.8) 01/03/17 17:45 Alfalfa # (Auto) 1.0 x10E3/uL (0.0-0.8) H 01/03/17 [...] N0, M0. 2. Tumor was ER negative, NE weak, and HER-2 nonamplified. 3. She underwent mastectomy at [facility] in 02/2015. Completed dose dense AC X4 [...] inflammatory. She was referred to pulmonary at [facility] 8. A focus of increased uptake in [...] vasculitis but per second opinion from a enginehouse brakeman and hand wood sander in [place] this is not vasculitis. They told her [...] for coordination of care (as documented) and kqnc-ux-xlii counseling of patient and/or family. Dictated By: Mohsen Steiner MD DD/ 1539 Signed By: <Electronically signed by Mohsen Steiner MD> 07/21/17 1546 [facility] Work Phone: [phone] Progress note Author Mohsen Steiner [facility] March 25, 2017 11:28am Note Date/Time March 25, 2017 11:27am [facility] [place] [address] Hem/Onc Follow Up Note - OP Signed Patient: Myla Pollack MR#: [id number] : 1950 Acct:[id number] Age/Sex: 66 / F Type: REG RCR Copies to: Pinky Og DO~ Subjective Date/Time of Service: Date of Service: 03/25/2017 Time of Service: 11:25 Chief Complaint: Patient is here to review MRI report and to follow up after seeing the laser print operator. HPI: Patient returns to the clinic for a pre-scheduled follow-up visit that reports that 1. She was seen at [facility] rheumatology, and from there she was referred to a hand wood sander in [place]. No final diagnosis has yet been made. 2. She had an MRI of the liver 3. She was seen by pulmonary in [facility] Details: All systems reviewed & no additional [...] % (Auto) 27.4 % (.) 01/03/17 17:45 Alfalfa % (Auto) 12.7 % (.) 01/03/17 17:45 Eos % (Auto) 1.5 % (.) 01/03/17 17:45 Baso % (Auto) 0.6 % (.) 01/03/17 17:45 Neut # (Auto) 4.4 x10E3/uL (1.8-7.7) 01/03/17 17:45 Lymph # (Auto) 2.1 x10E3/uL (1.00-4.8) 01/03/17 17:45 Alfalfa # (Auto) 1.0 x10E3/uL (0.0-0.8) H 01/03/17 [...] N0, M0. 2. Tumor was ER negative, NE weak, and HER-2 nonamplified. 3. She underwent mastectomy at [facility] in 02/2015. Completed dose dense AC X4 [...] pulmonary (by her preference to a new laser print operator at [facility]) 8. A focus of increased uptake in the liver of quasi-significance was also identified. On MRI of the liver there was no abnormality found (2) Pulmonary embolism Status: Chronic She is currently on warfarin (3) Vasculitis Status: Acute She is being seen by rheumatology at [facility]. (4) Lung nodules Status: Resolved Her [...] for coordination of care (as documented) and qlwk-om-pimp counseling of patient and/or family. Dictated By: Mohsen Steiner MD DD/ 1125 Signed By: <Electronically signed by Mohsen Steiner MD> 03/25/17 1128 [facility] Work Phone: [phone] Progress note Author Mohsen Steiner [facility] March 16, 2017 3:11pm Note Date/Time March 16, 2017 2:57pm [facility] [place] [address] Hem/Onc Follow Up Note - OP Signed Patient: Myla Pollack MR#: [id number] : 1950 Acct:[id number] Age/Sex: 66 / F Type: REG RCR Copies to: Pinky Og DO~ Subjective Date/Time of Service: Date of Service: 03/16/2017 Time of Service: 14:55 Chief Complaint: Patient is here for review of [employer] reports. HPI: Patient returns to the clinic for a pre-scheduled follow-up visit that reports that 1. She was seen at [facility] rheumatology, and from there she was referred to a hand wood sander in [place]. No final diagnosis has yet been made [...] % (Auto) 27.4 % (.) 01/03/17 17:45 Alfalfa % (Auto) 12.7 % (.) 01/03/17 17:45 Eos % (Auto) 1.5 % (.) 01/03/17 17:45 Baso % (Auto) 0.6 % (.) 01/03/17 17:45 Neut # (Auto) 4.4 x10E3/uL (1.8-7.7) 01/03/17 17:45 Lymph # (Auto) 2.1 x10E3/uL (1.00-4.8) 01/03/17 17:45 Alfalfa # (Auto) 1.0 x10E3/uL (0.0-0.8) H 01/03/17 [...] 01/03/17 17:45 Glucose 107 mg/dL (70-100) H 10/02/17 17:45 POC Glucose 96 mg/dl 03/14/17 08:08 [...] N0, M0. 2. Tumor was ER negative, NE weak, and HER-2 nonamplified. 3. She underwent mastectomy at [facility] in 02/2015. Completed dose dense AC X4 [...] pulmonary (by her preference to a new laser print operator at [facility]) 8. A focus of increased uptake in the liver of quasi-significance was also identified. MRI of the liver has been requested (2) Pulmonary embolism Status: Chronic She is currently on warfarin (3) Vasculitis Status: Acute She was seen by rheumatology at [facility]. (4) Lung nodules Status: Acute Her [...] for coordination of care (as documented) and oqgq-kl-nhtv counseling of patient and/or family. Dictated By: Mohsen Steiner MD DD/ 1455 Signed By: <Electronically signed by Mohsen Steiner MD> 03/16/17 2619 [facility] Work Phone: [phone] Progress note Author Mohsen Steiner [facility] February 28, 2017 2:51pm Note Date/Time February 28, 2017 2:29pm [facility] [place] [address] Hem/Onc Follow Up Note - OP Signed Patient: Myla Pollack MR#: [id number] : 1950 Acct:[id number] Age/Sex: 66 / F Type: REG RCR Copies to: Pinky Og DO~ Subjective Date/Time of Service: Date of Service: 02/28/2017 Time of Service: 14:26 Chief Complaint: Patient here to follow up after rheumatology referral. HPI: Patient returns to the clinic for a pre-scheduled follow-up visit that reports that 1. She was seen at [facility] rheumatology ROS Details: All systems reviewed [...] % (Auto) 27.4 % (.) 01/03/17 17:45 Alfalfa % (Auto) 12.7 % (.) 01/03/17 17:45 Eos % (Auto) 1.5 % (.) 01/03/17 17:45 Baso % (Auto) 0.6 % (.) 01/03/17 17:45 Neut # (Auto) 4.4 x10E3/uL (1.8-7.7) 01/03/17 17:45 Lymph # (Auto) 2.1 x10E3/uL (1.00-4.8) 01/03/17 17:45 Alfalfa # (Auto) 1.0 x10E3/uL (0.0-0.8) H 01/03/17 [...] N0, M0. 2. Tumor was ER negative, NE weak, and HER-2 nonamplified. 3. She underwent mastectomy at [facility] in 02/2015. Completed dose dense AC X4 [...] Acute She was seen by rheumatology at [facility]. The ordered some initial workup that [...] for coordination of care (as documented) and apmu-uq-otky counseling of patient and/or family. Dictated By: Mohsen Steiner MD DD/ 1426 Signed By: <Electronically signed by Mohsen Steiner MD> 02/28/17 1451 [facility] Work Phone: [phone] 824-553711-02-2017 Progress note Author Mohsen Steiner [facility] February 03, 2017 9:03am Note Date/Time February 03, 2017 9 :01am [facility] [place] [id number] Hem/Onc Follow Up Note - OP Signed Patient: Myla Pollack MR#: [id number] : 1950 Acct:[id number] Age/Sex: 66 / F Type: REG RCR Copies to: Pinky Og DO~ Subjective Date/Time of Service: Date of Service: 02/03/2017 Time of Service: 08:58 Chief Complaint: Patient here to follow up after EGD and EUS. HPI: Patient returns to the clinic for a pre-scheduled follow-up visit that reports that 1. She had an EUS at [facility] by Dr. Tara Hess and no significant [...] % (Auto) 27.4 % (.) 01/03/17 17:45 Alfalfa % (Auto) 12.7 % (.) 01/03/17 17:45 Eos % (Auto) 1.5 % (.) 01/03/17 17:45 Baso % (Auto) 0.6 % (.) 01/03/17 17:45 Neut # (Auto) 4.4 x10E3/uL (1.8-7.7) 01/03/17 17:45 Lymph # (Auto) 2.1 x10E3/uL (1.00-4.8) 01/03/17 17:45 Alfalfa # (Auto) 1.0 x10E3/uL (0.0-0.8) H 01/03/17 [...] N0, M0. 2. Tumor was ER negative, NE weak, and HER-2 nonamplified. 3. She underwent mastectomy at [facility] in 02/2015. Completed dose dense AC X4 [...] Status: Acute She was referred to the [facility] but her appointment is in April which [...] for coordination of care (as documented) and wanj-id-jbcl counseling of patient and/or family. Dictated By: Mohsen Steiner MD DD/ 0858 Signed By: <Electronically signed by Mohsen Steiner MD> 02/03/17 0903 [facility] Work Phone: [phone] 261-561510-12-2017 Progress note Author Mohsen Steiner [facility] January 12, 2017 10:59pm Note Date/Time January 12, 2017 1 0:57pm [facility] [place] [address] Hem/Onc Follow Up Note - OP Signed Patient: Myla Pollack MR#: [id number] : 1950 Acct:[id number] Age/Sex: 66 / F Type: REG RCR Copies to: Pinky Og DO~ Subjective Date/Time of Service: Date of Service: 01/12/2017 Time of Service: 22:52 Chief Complaint: Patient is here to follow up PET scan results. HPI: Patient returns to the clinic for a pre-scheduled follow-up visit that reports that 1. She was diagnosed with vasculitis at [facility] 2. She was found to have [...] 16:05 Resp 16 01/12/17 16:05 BP 136/81 10/11/17 16:05 Pulse Ox 94 L 01/12/17 16:05 [...] % (Auto) 27.4 % (.) 01/03/17 17:45 Alfalfa % (Auto) 12.7 % (.) 01/03/17 17:45 Eos % (Auto) 1.5 % (.) 01/03/17 17:45 Baso % (Auto) 0.6 % (.) 01/03/17 17:45 Neut # (Auto) 4.4 x10E3/uL (1.8-7.7) 01/03/17 17:45 Lymph # (Auto) 2.1 x10E3/uL (1.00-4.8) 01/03/17 17:45 Alfalfa # (Auto) 1.0 x10E3/uL (0.0-0.8) H 01/03/17 [...] N0, M0. 2. Tumor was ER negative, NE weak, and HER-2 nonamplified. 3. She underwent mastectomy at [facility] in 02/2015. Completed dose dense AC X4 [...] We will be referring her to the [facility] for evaluation and management. (4) Lung nodules [...] for coordination of care (as documented) and gwtp-wy-jvhv counseling of patient and/or family. Dictated By: Mohsen Steiner MD DD/ 51 Signed By: <Electronically signed by Mohsen Steiner MD> 01/12/172258 [facility] Work Phone: [phone] Progress note Author Mohsen Steiner [facility] January 05, 2017 4:45pm Note Date/Time January 05, 2017 4: 38pm [facility] [place] [address] Hem/Onc Follow Up Note - OP Signed Patient: Myla Pollack MR#: [id number] : 1950 Acct:[id number] Age/Sex: 66 / F Type: REG RCR cc: Pinky Og DO~ Subjective Date/Time of Service: Date of Service: 01/05/2017 Time of Service: 16:37 Chief Complaint: Patient is here for follow up to CT scan patient has been having ongoing vascular problems. HPI: Patient returns to the clinic for a pre-scheduled follow-up visit that reports that 1. She was diagnosed with vasculitis at [facility] 2. She was found to have [...] % (Auto) 27.4 % (.) 01/03/17 17:45 Alfalfa % (Auto) 12.7 % (.) 01/03/17 17:45 Eos % (Auto) 1.5 % (.) 01/03/17 17:45 Baso % (Auto) 0.6 % (.) 01/03/17 17:45 Neut # (Auto) 4.4 x10E3/uL (1.8-7.7) 01/03/17 17:45 Lymph # (Auto) 2.1 x10E3/uL (1.00-4.8) 01/03/17 17:45 Alfalfa # (Auto) 1.0 x10E3/uL (0.0-0.8) H 01/03/17 [...] N0, M0. 2. Tumor was ER negative, NE weak, and HER-2 nonamplified. 3. She underwent mastectomy at [facility] in 02/2015. Completed dose dense AC X4 [...] that in November, she was admitted at [facility] and was diagnosed with vasculitis affecting [...] for coordination of care (as documented) and awsh-cm-uhdp counseling of patient and/or family. Dictated By: Mohsen Steiner MD DD/ 1637 Signed By: <Electronically signed by Mohsen Steiner MD> 01/05/17 1647 [facility] Work Phone: [phone] 124-216710-03-2017 Progress note Author Jefferson Rice [facility] January 04, 2017 11:22am Note Date/Time January 04, 2017 11 :22am [facility] [place] [address] Hem/Onc Follow Up Note - OP Signed Patient: Myla Pollack MR#: [id number] : 1950 Acct:[id number] Age/Sex: 66 / F Type: REG RCR cc: Pinky Og DO~ Subjective Date/Time of Service: Date [...] for coordination of care (as documented) and dssx-zk-xuau counseling of patient and/or family. Dictated By: Jefferson Rice MD DD/ 1120 Signed By: <Electronically signed by Jefferson Rice MD> 01/04/17 1121 [facility] Work Phone: Evaluation note* Diagnosis Onset Date Resolution Status Breast cancer, right chronic Encounter for monitoring anastrozole therapy chronic Osteoarthritis of knees, bilateral chronic Pulmonary embolism chronic Screening for osteoporosis c hronic Cutaneous leukocytoclastic angiitis resolved History of hypercalcemia res olved Hypercalcemia resolved Lung nodules resolved Neuropathy resolved Vasculitis resolved [facility] Work Phone: evaluation note* Diagnosis Primary open-angle glaucoma, bilateral, mild stage- [facility] Diagnosis Primary open-angle glaucoma, bilateral, mild stage- Primary [facility] Diagnosis Primary open-angle glaucoma, bilateral, mild stage- Primary [facility] Diagnosis Primary open-angle glaucoma, bilateral, mild stage- Primary [facility] Diagnosis Onset Date Resolution Status Breast cancer, right chronic Screening for osteoporosis c hronic Neuropathy resolved Breast cancer, right chronic Encounter for monitoring anastrozole therapy chronic Osteoarthritis of knees, bilateral chronic Pulmonary embolism chronic Screening for osteoporosis c hronic Cutaneous leukocytoclastic angiitis resolved History of hypercalcemia res olved Hypercalcemia resolved Lung nodules resolved Neuropathy resolved Vasculitis resolved [facility] Work Phone: evaluation note* Diagnosis Acute right hip pain- Primary Trochanteric bursitis of right hip Gluteal tendonitis of right buttock documented in this encounter [facility]* Diagnosis Acute pain of right shoulder- Primary Neck pain Cervicalgia documented in this encounter [facility]* Diagnosis Primary open-angle glaucoma, bilateral, mild stage- Primary PCO (posterior capsular opacification), bilateral After-cataract, unspecified Dry eye syndrome of bilateral lacrimal glands Tear film insufficiency, unspecified [facility]* Diagnosis Lymphedema- Primary Other noninfectious lymphedema [facility] Author Lynsey Land [facility] January 30, 2024 11:05am Note Date/Time January 30, 2024 1 0:16am [facility] [place] [address] Cancer Center Note Signed Patient: Myla Pollack MR#: [id number] : 1950 Acct:[id number] Age/Sex: 73 / F Type: DEP AMB Date of Service: 01/30/24 Copies to: Kenyetta Reynolds MD~ Assessment & Plan A/P (1) Breast cancer, right: Plan: Estrogen receptor status: negative Patient sex: female 1. 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 ER negative, NE weak, and HER-2 nonamplified. 2. She underwent mastectomy at [facility] in 02/2015. Completed dose dense AC X4 and Taxol X 12 in August 2015. 3. 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 Anastrozole was resumed in 03/2017 4. Saw enginehouse brakeman in [place] for persistent leg pain and swelling (he [...] focus of hypermetabolic activity either in the lowerlobe of the right lung adjacent to the [...] inflammatory. She was referred to pulmonary at [facility]. --Followup PET/CT 08/2017 showed resolution of prior ground glass density. No further surveillance required. 6. A focus of increased uptake in the liver of undetermined significance was also identified. On MRI of the liver there was no abnormality found. No evidence of recurrence on most recent mammogram in January 2023. 5 years of Anastrozole therapy was completed in October 2020. Follow-up DEXA scan in July 2020 normal. She has node-negative weekly progesterone positive disease and benefit greater than 5 years of anastrozole is likely minimal. Based on most physical exam, most recent mammogram and ROS there is no evidence to suggest cancer recurrence. Since she is now 8 years from diagnosis, next f/u in person will be annual in 01/2024 after left breast mammogram unless new symptoms arise. This is a 20 minute low complexity f/u visit. --01/30/2024: Since she is now 9 years from diagnosis, next f/u in person will be annual in 01/2025 after left breast mammogram unless new symptoms arise. Script for right breast prosthesis and bras provided to the patient. (2) Screening for osteoporosis: Plan: Normal screening DEXA scan 07/2018 on aromatase inhibitor therapy--repeat DEXA scan 07/2020 reviewed with the patient and she still has no evidence of osteopenia or osteoporosis. She is compliant with calcium and vitamin D and should not require routine DEXA off AI therapy--consider next DEXA at 5 years 07/2025. (3) Neuropathy: Plan: We have referred her for acupuncture therapy for residual neuropathy from prior Taxol therapy. Symptoms are overall resolved. She continues taking Vitamin B supplement. 01/30/2024: Taking Lyrica, reports neuropathy symptoms are the same, feels numbness, tingling, and discomfort, Lyrica helps a little, denies falls. Plan Orders: Orders MM screening mammo LT w/CAD 1 Year Z12.39 - Encounter for other screening for malignant neoplasm of breast Patient Instructions: Follow up one year with Dr Garay after screening mammogram. CHEMO PLAN No Active Chemotherapy History of Present Illness HPI 01/30/2024: Myla presents to the clinic ambulatory to the clinic with her spousefor a annual f/u visit of right breast cancer, now 9 years post mastectomy. Screening left breast exam 01/23/24 without recurrence. No systemic symtoms of recurrence. Denies fever, chills, night sweats, infections, weight loss, cough, lymphadenopathy, or bone pain. She does report having COPD, denies SOB at rest, but has some sob with increased activity or when breathing in cold air. Positivefor LLE swelling, positive for recurrent vasculitis, chronic, no change. 01/21/2023: Myla Romero presents for one year followup rigt breast cancer, now 8 years postmastectomy. No changes on self breast exam. Screening left [id number]/19/2023 without recurrence. No systemic symptoms of recurrence, including noheadaches, fever/chills, infections, weight loss, chest pain, cough, SOB, lymphadenopathy, or bone pain. Continue annual followup until 10 years post mastectomy, sooner as needed. Low complexity 20 min followup. 01/21/2022: Here for interval 1 year follow [...] of anastrozole, we will now follow annually [facility] wishes to return to [facility]ology). We will arrange her annual follow-ups after her annual mammograms in January of each year. She also requested refill of breast prosthesis and mastectomy bra. No breast exam due to telephone visit. No skin changes or breast tenderness. No recent f/u by [facility] in [place]--was reported to have vasculitis 4 years ago--now resolved but still has some mild erythema and swelling of left greater than right leg without pain. Receives Anastrozole due to weak NE expression--no significant myalgias/arthralgias or hot flashes. No [...] pT1c, N0, M0. Tumor was ER negative, NE weak, and HER-2 nonamplified. She underwent right mastectomy at [facility] in 02/2015. Completed dose dense AC X4 [...] years of adjuvant therapy. 3. Evaluated by [facility] in [place] (does not believe she had vasculitis)--no recent [...] focus of hypermetabolic activity either in the lowerlobe of the right lung adjacent to the [...] inflammatory. She was referred to pulmonary at [facility]. Ground glass opacities resolved on PET/CT 08/2017. [...] T-score +0.1, right femoral neck T-score -0.9--all normal Summary of Therapies Summary of Therapies: 1. Right breast mastectomy at [facility] (Dr. Rodriguez) in 02/2015. 2. Completed dose dense AC X4 and Taxol X 12 in August 2015. 3. Anastrozole with calcium and vitamin D started in August 2015-- 5-year course completed October 2020. Intake Vitals/Pain Assessment 01/30/24 10:17 Height 5 ft 6 in Weight 73.936 kg BMI 26.3 Body Fat % 42.57 Position Sitting Temp 97.3 F L Temp Source Temporal Pulse 86 Pulse Source NIBP Respiration 16 Pulse Oximetry (%) 96 Oxygen Delivery Method room air Intake Visit Reasons: Follow Up, follow up visit Accompanied by: Spouse Allergies Sulfa (Sulfonamide Antibiotics) Allergy (Unknown, Verified 01/30/24 10:18) Hives - Last Reconciled 01/30/24 by MAGUI Siu albuterol sulfate 90 mcg/actuation 1 puff inhalation Q6H PRN ascorbic acid (vitamin C) (Vitamin C) 500 mg PO DAILY atorvastatin 20 mg PO DAILY biotin 1 mg PO DAILY cholecalciferol (vitamin D3) (Vitamin D3) 1,000 units PO DAILY cyanocobalamin (vitamin B-12) ER (Vitamin B-12 ER) 1,000 mcg PO DAILY flaxseed oil 1,000 mg PO BID fluticasone furoate-vilanterol 50-25 mcg/dose (Breo Ellipta) inhalation fluticasone propionate 50 mcg/actuation 2 spry intranasal DAILY magnesium oxide 250 mg PO DAILY montelukast 10 mg PO DAILY multivitamin 1 tab PO DAILY pregabalin (Lyrica) 75 mg PO BID 90 days pyridoxine (vitamin B6) (Vitamin B-6) 100 mg PO DAILY warfarin 7.5 - 10 mg PO DIRECTED Gastrointestinal Is the patient taking opioids for pain control?: No Falls Fall Precaution Measures Taken: Patient in chair Nurse's Note: Patient is here today for a one year follow up visit for hx: breast cancer and go over mamogram. [facility] Social History Social History (Updated 01/30/24 @ 10:21 by Lora Huffman [facility]) Smoking status: Never smoker Within the past year, how often did you have a drink containing alcohol: never AUDIT-C Alcohol total score: 0 AUDIT-C Alcohol score interpretation: A score less than 3 is consistent with normal alcohol consumption. In the past 12 months, have you used illegal drugs or prescription drugs for non-medical reasons?: No Review of Systems ROS Details: All systems reviewed & no [...] Allergic/Immunologic: no pruritus, no reaction to drugs Physical Exam EXAM CONSTITUTIONAL: The patient is in no acute distress. NECK / THYROID: Neck is supple. Thyroid is symmetrical, without thyromegaly, masses or palpable nodules. LYMPHATIC: No palpable cervical, supraclavicular, axillary, or inguinal adenopathy. RESPIRATORY: Normal to inspection. Lungs clear to auscultation and percussion. No wheezing, rales, rhonchi or rubs. Normal effort. CARDIOVASCULAR: Regular rate and rhythm. No murmurs, gallops, or rubs. VASCULAR: Carotid, radial, femoral and pedal pulses present bilaterally. No bruits. LLE edema, chronic vasculitis, see HPI ABDOMEN: Bowel sounds normoactive. Soft, nontender and [...] clinical evidence of cancer recurrence. Results - [facility] (Med [facility]c) LAB RESULTS No Data to Display Dictated By: Lynsey Land APRN DD/ [id number] Signed By: <Electronically signed by CHIDI Land> 01/30/24 1105 [facility] Work Phone: Summary Purpose Family History No Family History Records FoundNo Family History Records FoundNo Family History Records FoundNo Family History Records FoundNo Family History Records FoundNo Family History Records FoundNo Family History Records FoundNo Family History Records Found Advance Directives Advance Directive Response Recorded Date/ Time Advance Directives No November 27, 2016 10:59am Date Activated Date Inactivated Comments 02/12/2020 12:28 PM 02/13/2020 2:43 PM Chief Complaint and Reason for Visit Chief Complaint HX BREAST CANCER AMB ORDER Reason for Visit Breast cancer, right Encounter for monitoring anastrozole therapy Osteoarthritis of knees, bilateral Pulmonary embolism Screening for osteoporosis Cutaneous leukocytoclastic angiitis History of hypercalcemia Hypercalcemia Lung nodules Neuropathy Vasculitis Chief Complaint Follow Up HX BREAST CANCER AMB ORDER Reason for Visit Breast cancer, right Screening for osteoporosis Neuropathy Breast cancer, right Encounter for monitoring anastrozole therapy Osteoarthritis of knees, bilateral Pulmonary embolism Screening for osteoporosis Cutaneous leukocytoclastic angiitis History of hypercalcemia Hypercalcemia Lung nodules Neuropathy Vasculitis Medications Administered Section Active Administered Medications - up to 3 most recent administrations Medication Order MAR Action Action Date Dose Rate Site fluorescein-benoxinate 0.3-0.4 % drop 1 Drop 1 Drop, BOTH EYES, DIRECTED, Starting on Tue01/17/23 at 0830, Until Tue01/17/23 at 2028, Administer for applanation tonometry. In the event of a Fluress shortage, administer [place]-Fluor 1 drop into both eyes as directed for applanation tonometry Given 01/17/2023 8:30 AM EDT 1 Drop Reason for Referral Specialty Diagnoses / Procedures Referred By Ismael t Referred To Contact Orthopaedic Surgery Diagnoses Trochanteric bursitis of right hip Gluteal tendonitis of right buttock Procedures L Inj/Asp: R greater trochanteric bursa Dino George PA [address] [facility] [address] [place] [address] Referral ID Status Reason Start Date Expiration Date V isits Requested Visits Authorized [id number] Authorized 12/19/2023 06/16/2024 1 1 Additional Source Comments INFORMATION SOURCE (unrecogn ized section and content) DATE CREATED AUTHOR 09/27/2017 [facility] DATE CREATED AUTHOR AUTHOR'S ORGANIZ ATION 01/18/2018 [facility] DATE CREATED AUTHOR AUTHOR'S ORGANIZ ATION 08/05/2018 [facility] DATE CREATED AUTHOR AUTHOR'S ORGANIZ ATION 09/10/2022 [facility] DATE CREATED AUTHOR AUTHOR'S ORGANIZ ATION 07/15/2023 [facility] DATE CREATED AUTHOR AUTHOR'S ORGANIZ ATION 01/31/2024 [facility] DATE CREATED AUTHOR AUTHOR'S ORGANIZ ATION 04/15/2024 [facility] DATE CREATED AUTHOR AUTHOR'S ORGANIZ ATION 04/21/2024 [facility] Care Teams (unrecognized sec tion and content) Team Status: Active Member Role Status Dates Kenyetta Reynolds MD Primary Care Provider Active Team Status: Inactive Member Role Status Dates Kenyetta Reynolds MD Primary Care Provider Active Start: January 30, 2024 End: January 30, 2024 Lynsey Land APRN Attending Provider Active Start: January 30, 2024 End: January 30, 2024 Team Status: Active Member Role Status Dates Christian Steiner MD Other Provider Active Start : January 30, 2024 Kacie Garay MD Attending Provider Active Start: January 30, 2024 Kenyetta Reynolds MD Primary Care Provider Active Start: January 30, 2024 Team Status: Active Member Role Status Dates Christian Steiner MD Other Provider Active Kacie Garay MD Attending Provider Active Kenyetta Reynolds MD Primary Care Provider Active Library Supervisor Relationship Specialty Start Date End Date Kenyetta Reynolds MD [address] [place] [address] PCP - General Family Medicine 03/14/19 Library Supervisor Relationship Specialty Start Date End Date Kenyetta Reynolds MD PCP - General Family Medicine 03/14/19 Library Supervisor Relationship Specialty Start Date End Date Kenyetta Reynolds MD PCP - General Family Medicine 03/14/19 Library Supervisor Relationship Specialty Start Date End Date Kenyetta Reynolds MD [address] [place] [address] PCP - General Family Medicine 09/15/22 Library Supervisor Relationship Specialty Start Date End Date Kenyetta Reynolds MD PCP - General Family Medicine 03/14/19 Library Supervisor Relationship Specialty Start Date End Date Kenyetta Reynolds MD PCP - General Family Medicine 03/14/19 Library Supervisor Relationship Specialty Start Date End Date Kenyetta Reynolds MD PCP - General Family Medicine 03/14/19 Library Supervisor Relationship Specialty Start Date End Date Kenyetta Reynolds MD [address] [place] [address] PCP - General Family Medicine 09/15/22 Library Supervisor Relationship Specialty Start Date End Date Kenyetta Reynolds MD [address] [place] [address] PCP - General Family Medicine 09/15/22 Library Supervisor Relationship Specialty Start Date End Date Kenyetta Reynolds MD [address] [place] [address] PCP - General Family Medicine 09/15/22 Library Supervisor Relationship Specialty Start Date End Date Kenyetta Reynolds MD [address] [place] [address] PCP - General Family Medicine 09/15/22 Library Supervisor Relationship Specialty Start Date End Date Kenyetta Reynolds MD [address] [place] [address] PCP - General Family Medicine 12/20/19 Goals (unrecognized section and content) Goals may be documented in a n alternate sectionGoals may be documented in an alternate sectionGoals may be documented in an alternate sectionNot on filedocumented as of this encounter Source Comments (unrecognize d section and content) In the event this informatio n is protected by the Federal Confidentiality of Alcohol and Drug Abuse Patient Records regulations: The Federal rules restrict any use of the information to criminally investigate or prosecute any alcohol or drug abuse patient.[facility] the event this information is protected by the Federal Confidentiality of Alcohol and Drug Abuse Patient Records regulations: The Federal rules restrict any use of the information to criminally investigate or prosecute any alcohol or drug abuse patient.[facility] Hospital[facility] the event this information is protected by the Federal Confidentiality of Alcohol and Drug Abuse Patient Records regulations: The Federal rules restrict any use of the information to criminally investigate or prosecute any alcohol or drug abuse patient.[facility] the event this information is protected by the Federal Confidentiality of Alcohol and Drug Abuse Patient Records regulations: The Federal rules restrict any use of the information to criminally investigate or prosecute any alcohol or drug abuse patient.[facility] Hospital[facility] the event this information is protected by the Federal Confidentiality of Alcohol and Drug Abuse Patient Records regulations: The Federal rules restrict any use of the information to criminally investigate or prosecute any alcohol or drug abuse patient.[facility] the event this information is protected by the Federal Confidentiality of Alcohol and Drug Abuse Patient Records regulations: The Federal rules restrict any use of the information to criminally investigate or prosecute any alcohol or drug abuse patient.[facility] HospitalIn the event this information is protected by the Federal Confidentiality of Alcohol and Drug Abuse Patient Records regulations: The Federal rules restrict any use of the information to criminally investigate or prosecute any alcohol or drug abuse patient.[facility] Reason for Visit (unrecogniz ed section and content) Reason Comments Appointment Reason Comments Glaucoma Suspect Evaluation Epiretinal Membrane Reason Comments Glaucoma Suspect Follow Up VATA Reason Comments Glaucoma Follow Up Reason Comments Glaucoma Suspect Evaluation Reason Comments Pain Reason Comments Glaucoma Suspect Follow Up Reason Comments vasculitis FOR RECORDS PERTAINING TO PATIENTS WHO ARE [...] BE BASED ON THE PRIMARY CLINICAL RECORDS. [employer] provides no warranty or guarantee of the accuracy or completeness of information in this document.
[2024-05-03 07:43] LABS: Estimated Average Glucose 108 mg/dL; Glycohemoglobin A1C 5.4 % (4.5-6.2)
[2024-05-03 07:45] LABS: Basophils Percent Auto 0.4 % (0.2-2.0); Eosinophils Absolute Auto 0.1 10^3/uL (0.0-0.7); Eosinophils Percent Auto 1.4 % (0.9-7.0); Hematocrit 42.1 % (36.0-48.0); Hemoglobin 13.7 g/dL (12.0-16.0); Immature Granulocytes Abs Auto 0.01 10^3/uL (0.00-0.03); Immature Granulocytes Pct Auto 0.1 % (0.0-0.5); Lymphocytes Absolute Auto 2.2 10^3/uL (1.2-3.8); Lymphocytes Percent Auto 24.6 % (20.5-60.0); Mean Corpuscular HGB Conc 32.5 g/dL (29.9-35.2); Mean Corpuscular Hemoglobin 30.4 pg (26.7-34.0); Mean Corpuscular Volume 93.3 fL (81.0-99.0); Mean Platelet Volume 9.8 fL (9.5-13.5); Monocytes Absolute Auto 0.6 10^3/uL (0.3-0.8); Monocytes Percent Auto 6.1 % (1.7-12.0); Neutrophils Absolute Auto 6.1 10^3/uL (1.4-6.5); Neutrophils Percent Auto 67.4 % (43.0-75.0); Platelet Count 272 10^3/uL (150-450); Red Blood Count 4.51 10^6/uL (4.20-5.40); Red Cell Distribution Width 12.8 % (11.0-15.0); White Blood Count 9.1 10^3/uL (4.0-11.0)
[2024-05-03 08:46] LABS: Alanine Aminotransferase 96 U/L (14-59); Albumin Level 3.7 g/dL (3.4-5.0); Alkaline Phosphatase 80 U/L (46-116); Anion Gap 8.7; Aspartate Amino Transferase 46 U/L (15-37); BUN Creatinine Ratio 14.1; Bilirubin Total 0.8 mg/dL (0.2-1.0); Calcium 9.4 mg/dL (8.5-10.1); Carbon Dioxide 32.3 mmol/L (21.0-32.0); Chloride 103 mmol/L (98-107); Chol HDL Ratio 1.8; Cholesterol 151 mg/dL (<=200); Estimated GFR (African America >60 (>=60 mL/min/1.73m^2); Estimated GFR (Non-African Ame >60 (>=60 mL/min/1.73m^2); Free T3 2.57 pg/mL (2.18-3.98); Globulin 3.6 g/dL; Glucose 87 mg/dL (74-106); HDL Cholesterol 84 mg/dL (40-60); Sodium 140 mmol/L (136-145); Thyroid Stimulating Hormone 1.464 uIU/mL (0.358-3.740); Total Protein 7.3 g/dL (6.4-8.2); Triglycerides 55 mg/dL (<=150)
[2024-05-03 14:25] LABS: Internal Control Within Normal Limits; Occult Blood Positive
== END 2024-05-03 07:16 | disposition home or self-care (01) ==
LOC: LAB 07:18
PROVIDERS: PCP Family Medicine; Visit Provider Family Medicine
DX: J44.9 Chronic obstructive pulmonary disease, unspecified (principal); I89.0 Lymphedema, not elsewhere classified; M19.90 Unspecified osteoarthritis, unspecified site; R73.09 Other abnormal glucose; E03.9 Hypothyroidism, unspecified; E78.5 Hyperlipidemia, unspecified
CPT/HCPCS: 36415; 80053; 80061; 83036; 84436; 84443; 84481; 85025; G0328

== ENCOUNTER 2024-05-07 00:42 | Outpatient (RCR) | payer MEDICARE, OTHER, SELFPAY | END 2024-06-01 10:28 | disposition home or self-care (01) | LOC: MM 00:42 | PROVIDERS: PCP Family Medicine; Visit Provider Internal Medicine | DX: Z51.81 Encounter for therapeutic drug level monitoring (principal); Z79.01 Long term (current) use of anticoagulants; I26.99 Other pulmonary embolism without acute cor pulmonale ==

== ENCOUNTER 2024-05-14 09:04 | Day surgery (SDC) | payer MEDICARE, OTHER, SELFPAY ==
--- OUTSIDE RECORDS SUMMARY | 2024-05-14 09:09 | XMS_ITS | CCD ---
Demographics Address [address] [place] [address] Home Phone Mobile Phone Preferred Language en Marital Status Jain Affiliation Unknown Race White Ethnic Group Not or Lati no Author Organization [facility] Care Team Providers Care Quarter Doper Name Role Phone Demarco Hess Unavailable Unavailable [...] Provider MD Kenyetta Reynolds Primary Care Provider [id number] [...] Provider MD Kenyetta Reynolds Primary Care Provider [phone] Kenyetta Reynolds MD Primary Care Provider [phone] LYNSEY SALDANA Attending Unavailable KENYETTA REYNOLDS Referring Unavailable KENYETTA REYNOLDS Primary Care Unavailable Kenyetta Reynolds MD Primary Care Provider [phone] MD Christian Steiner Other Provider [phone] MD Kacie Garay Attending Provider MD Kenyetta Reynolds Primary Care Provider [phone] Christian Steiner Consulting Unavailable Kacie Garay [...] Unavailable Kenyetta Reynolds MD Primary Care Provider [phone] Allergies Allergy Classification Reported Allergen(s) Allergy Type Date of Onset Reaction(s) Facility Sulfonamides (antibiotic) (1 source) Sulfonamides (Antibiotic) Drug Allergy 9 Unknown [facility] (17 sources) Sulfonamides (Antibiotic); 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: [SULFA (SULFONAMIDE ANTIBIOTICS)] Drug Allergy 9 Unknown [facility] (1 source) Sulfonamides (Antibiotic) Drug allergy (disorder) 5 [facility] (8 sources) Sulfamethoxazole / Trimethoprim Drug Allergy 1 Unknown [facility] (1 source) Sulfonamides (Antibiotic) Drug allergy (disorder) 4 [facility] Medications Current Medications Medication Drug Class(es) [...] by mouth every six hours as needed denoqnlokj-cmtrdkfscprta-cierbrgy 50-325 -40 MG tablet Take 1 tablet by mouth every 6 (six) hours if needed. 0 Active End: 01-17-2023 acetaminophen 325 mg-caffein e 40 mg-butalbital 50 mg (FIORICET) per tablet omdusajoyt-lgedltnwvmiei-zwymqelh 50 mg-325 mg-40 mg tablet 0 01/17/2023 [...] Oral Daily July 19, 2018 10:42am 07-19-2018 [facility] ([id number]) 07/19/2018 Active take 1 tablet by mouth in the mo rning cholecalciferol (D3-5) 5,000 Units tablet Take 5,000 Units by mouth in the morning. Active Comment on above: Cholecalciferol Chol ecalciferol (Vitamin D3) Active 1000 UNIT Oral Daily July 19, 2018 10:42am 07-19-2018 [facility] (08545) CHONDROITIN SULFATE A ORAL (14 sources) take [...] Twice daily March 25, 2017 10:57am 03-25-2017 [facility] (92674) 03/25/2017 Active Comment on above: Linseed Oil Flaxseed Oil Active 1000 MG Oral Twice daily March 25, 2017 10:57am 03-25-2017 [facility] (44202) Magnesium (16 sources) take 1 mg by [...] Oral Daily January 05, 2017 3:53pm 01-05-2017 [facility] (40677) 01/05/2017 Active Comment on above: Magnesium Oxide Magn esium Oxide Active 250 MG Oral Daily January 05, 2017 3:53pm 01-05-2017 [facility] (90401) montelukast 10 mg oral tablet (19 sources) [...] puff(s) by inhalation every twenty-four hours Tiotropium [place] (Spiriva Respimat) 2.5 mcg/actuation Mist Discontinued 2 [...] 3 01-21-2022 Episodic Other aftercare (1 source) jail (current) use of anticoagulants; 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: [HALFWAY CURRNT USE ANTICOAGULANTS] Onset: 3 Episodic Other [...] sources) Long-term current use of anticoagulant; 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: [jail (current) use of anticoagulants] Onset: 02-02-2019 Resolved: 09-14-2022 07-05-2022 Episodic Other aftercare (15 sources) Long-term current use of drug therapy; 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: [Other half-way (current) drug therapy] Onset: 03-22-2022 Resolved: 09-14-2022 07-05-2022 Episodic Other aftercare (1 source) Other long term care phlebotomist (current) drug therapy; 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: [OTH HALFWAY CURRENT DRUG THERAPY] Onset: 03-22-2022 Episodic Other [...] 07-05-2022 Episodic Unclassified (1 source) HEALTH MAINTENANCE 91440 Z00.00 Onset: 01-28-2017 Urinary tract infections (8 sources) Acute cystitis; 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: [Acute cystitis without hematuria] Onset: 10-19-2019 Resolved: 09-14-2022 09-14-2022 Episodic Results Test Name Value Interpretation Reference Range Facility MM screening mammo LT w/CADo n 01-23-2024 MM screening mammo LT w/CAD [facility] [place] [address] Mammography Report Signed Patient: Myla Pollack MR#: [id number] : 1950 Acct:[id number] Age/Sex: 73 / F ADM Date: 01/23/24 Loc: XT Room: Type: [facility] [...] José Sandoval M.D.01/23/2024 10:09 AM Dictation Location: [facility] Transcribed By: [facility] 01/23/24 1009 Dictated By: José Sandoval DO 01/23/24 1008 Signed By: 01/23/24 1009 Normal [facility] No Panel Informationon 12-18 BETO [...] and draped in the usual sterile fashion. [facility] LASER TRABECULOPLASTY OD (RI GHT EYE)on 09-05-2023 [facility] OCT OPTIC NERVE CIRRUS OU (B OTH EYES)on 07-27-2023 [facility] Radiology Study observation (narrative) [facility] VISUAL FIELD 24-2 OU (BOTH E YES)on 07-27-2023 [facility] Radiology Study observation (narrative) [facility] MRI WRIST RT WO CONon 2022 [...] DINO GREGORY Date: 2022-06-20 13:14 Normal [facility] INSULINon 04-29-2022 Insulin 15.6 uIU/mL Normal 2.6-24.9 [facility] Comment on above: Performed By: #### I NSULIN #### [facility] [address] [place] [address] Dr. Marizol Macedo CBC AUTO DIFFon 04-28-2022 BASO # 0.0 103/ul Normal 0.0-0.1 [facility] Comment on above: Performed By: #### C BC #### [facility] [address] [place] [address] Dr. Marizol Macedo Basophils/100 WBC (Bld) 0.3 % Normal 0.2-2.0 [facility] Comment on above: Performed By: #### C BC #### [facility] [address] [place] [address] Dr. Marizol Macedo EO # 0.1 103/ul Normal 0.0-0.7 [facility] Comment on above: Performed By: #### C BC #### [facility] [address] [place] [address] Dr. Marizol Macedo Eosinophils/100 WBC (Bld) 1.0 % Normal 0.9-7.0 [facility] Comment on above: Performed By: #### C BC #### [facility] [address] [place] [address] Dr. Marizol Macedo Erythrocyte distribution width (RBC) [Ratio] 12.6 % Normal 11.0-15.0 [facility] Comment on above: Performed By: #### C BC #### [facility] [address] [place] [address] Dr. Marizol Macedo Hematocrit (Bld) [Volume fraction] 43.4 % Normal 36.0-48.0 [facility] Comment on above: Performed By: #### C BC #### [facility] [address] [place] [address] Dr. Marizol Macedo Hemoglobin (Bld) [Mass/Vol] 14.1 g/dL Normal 12.0-16.0 [facility] Comment on above: Performed By: #### C BC #### [facility] [address] [place] [address] Dr. Marizol Macedo IG # 0.02 10e3/ul Normal 0.00-0.03 [facility] Comment on above: Performed By: #### C BC #### [facility] [address] [place] [address] Dr. Marizol Macedo IG % 0.3 % Normal 0.0-0.5 [facility] Comment on above: Performed By: #### C BC #### [facility] [address] [place] [address] Dr. Marizol Macedo LYMPH # 2.4 103/ul Normal 1.2-3.8 [facility] Comment on above: Performed By: #### C BC #### [facility] [address] [place] [address] Dr. Marizol Macedo Lymphocytes/100 WBC (Bld) 30.9 % Normal 20.5-60.0 [facility] Comment on above: Performed By: #### C BC #### [facility] [address] [place] [address] Dr. Marizol Macedo MANUAL DIFF REQ NO Normal [facility] Comment on above: Performed By: #### C BC #### [facility] [address] [place] [address] Dr. Marizol Macedo MCH (RBC) [Entitic mass] 30.7 pg Normal 26.7-34.0 [facility] Comment on above: Performed By: #### C BC #### [facility] [address] [place] [address] Dr. Marizol Macedo MCHC (RBC) [Mass/Vol] 32.5 g/dL Normal 29.9-35.2 [facility] Comment on above: Performed By: #### C BC #### [facility] [address] [place] [address] Dr. Marizol Macedo MCV (RBC) [Entitic vol] 94.3 fL Normal 81.0-99.0 [facility] Comment on above: Performed By: #### C BC #### [facility] [address] [place] [address] Dr. Marizol Macedo MONO # 0.4 103/ul Normal 0.3-0.8 [facility] Comment on above: Performed By: #### C BC #### [facility] [address] [place] [address] Dr. Marizol Macedo Monocytes/100 WBC (Bld) 5.4 % Normal 1.7-12.0 [facility] Comment on above: Performed By: #### C BC #### [facility] [address] [place] [address] Dr. Marizol Macedo NEUT # 4.9 103/ul Normal 1.4-6.5 [facility] Comment on above: Performed By: #### C BC #### [facility] [address] [place] [address] Dr. Marizol Macedo Neutrophils/100 WBC (Bld) 62.1 % Normal 43.0-75.0 [facility] Comment on above: Performed By: #### C BC #### [facility] [address] [place] [address] Dr. Marizol Macedo Platelet mean volume (Bld) [Entitic vol] 10.2 fL Normal 9.5-13.5 [facility] Comment on above: Performed By: #### C BC #### [facility] [address] [place] [address] Dr. Marizol Macedo PLT 279 103/ul Normal 150-450 [facility] Comment on above: Performed By: #### C BC #### [facility] [address] [place] [address] Dr. Marizol Macedo RBC 4.60 106/ul Normal 4.20-5.40 [facility] Comment on above: Performed By: #### C BC #### [facility] [address] [address] [address] Marizol Macedo WBC 7.8 103/ul Normal 4.0-11.0 [facility] Comment on above: Performed By: #### C BC #### [facility] [address] [place] [address] Dr. Marizol Macedo FREE THYROXINE INDEX T7on FTI 3.50 Normal 1.30-4.50 [facility] Comment on above: Performed By: #### L IPID, T7, CMP, TSH #### [facility] [address] [place] [address] Dr. Marizol Macedo T3U 35.0 % Normal 30.0-39.0 [facility] Comment on above: Performed By: #### L IPID, T7, CMP, TSH #### [facility] [address] [place] [address] Dr. Marizol Macedo T4 [Mass/Vol] 10.00 ug/dL Normal 4.80-13.90 [facility] Comment on above: Performed By: #### L IPID, T7, CMP, TSH #### [facility] [address] [place] [address] Dr. Marizol Macedo GLYCOHEMOGLOBIN A1Con 2022 ADA RECOMMENDATION SEE BELOW Normal [facility] Comment on above: Result Comment: ADA RECOMMENDED LIMIT 4.0 - 6.0 ADA THERAPEUTIC TARGET < 7.0 ACTION SUGGESTED > 7.0 Performed By: #### A 1C #### [facility] [address] [place] [address] Dr. Marizol Macedo Glucose [Mass/Vol] 114 mg/dL Normal [facility] Comment on above: Performed By: #### A 1C #### [facility] [address] [address] [address] Marizol Macedo HbA1c (Bld) [Mass fraction] 5.6 % Normal 4.5-6.2 [facility] Comment on above: Performed By: #### A 1C #### [facility] [address] [address] [address] Marizol Macedo IRONon 04-28-2022 Iron [Mass/Vol] 136.0 ug/dL Normal 50.0-170.0 [facility] Comment on above: Performed By: #### I CECELIA #### [facility] [address] [address] [address] Marizol Macedo LIPID PROFILEon 04-28-2022 CHOL-HDL RATIO NORM SEE BELOW Normal [facility] Comment on above: Result Comment: 3.3 - 4.4 LOW RISK 4.4 - 7.1 AVERAGE RISK 7.1 - 11.0 MODERATE RISK >11.0 HIGH RISK Performed By: #### L IPID, T7, CMP, TSH #### [facility] [address] [address] [address] Marizol Macedo Cholesterol [Mass/Vol] 134 mg/dL Normal <=200 [facility] Comment on above: Performed By: #### L IPID, T7, CMP, TSH #### [facility] [address] [address] [address] Marizol Macedo Cholesterol in HDL [Mass/Vol] 69 mg/dL Critically high 40-60 [facility] Comment on above: Performed By: #### L IPID, T7, CMP, TSH #### [facility] [address] [address] [address] Marizol Macedo Cholesterol in LDL [Mass/Vol] 46.6 mg/dL Normal [facility] Comment on above: Performed By: #### L IPID, T7, CMP, TSH #### [facility] [address] [address] [address] Marizol Macedo Cholesterol.total/Ch olesterol in HDL [Mass ratio] 1.9 {ratio} Normal [facility] Comment on above: Performed By: #### L IPID, T7, CMP, TSH #### [facility] [address] [address] [address] Marizol Macedo HDL NORMAL > or = 60 mg/dl - LO W CARDIOVASCULAR RISK <40 mg/dl - HIGH CARDIOVASCULAR RISK Normal [facility] Comment on above: Performed By: #### L IPID, T7, CMP, TSH #### [facility] [address] [address] [address] Marizol Macedo LDL CALC NORMAL SEE BELOW Normal [facility] Comment on above: Result Comment: <100 mg/dl OPTIMAL 100 - 129 mg/dl NEAR OR ABOVE OPTIMAL 130 - 159 mg/dl BORDERLINE HIGH 160 - 189 mg/dl HIGH >190 mg/dl VERY HIGH Performed By: #### L IPID, T7, CMP, TSH #### [facility] [address] [address] [address] Marizol Macedo Triglyceride [Mass/Vol] 92 mg/dL Normal <=150 [facility] Comment on above: Performed By: #### L IPID, T7, CMP, TSH #### [facility] [address] [address] [address] Marizol Macedo VLDL CALC 18.4 mg/dL Normal [facility] Comment on above: Performed By: #### L IPID, T7, CMP, TSH #### [facility] [address] [address] [address] Marizol Macedo PROF 14(COMP METB)on 023 Albumin [Mass/Vol] 3.9 g/dL Normal 3.4-5.0 [facility] Comment on above: Performed By: #### L IPID, T7, CMP, TSH #### [facility] [address] [address] [address] Marizol Macedo Albumin/Globulin [Mass ratio] 1.1 {ratio} Normal [facility] Comment on above: Performed By: #### L IPID, T7, CMP, TSH #### [facility] [address] [address] [address] Marizol Macedo ALP [Catalytic activity/Vol] 97 U/L Normal 46-116 [facility] Comment on above: Performed By: #### L IPID, T7, CMP, TSH #### [facility] [address] [address] [address] Marizol Macedo ALT [Catalytic activity/Vol] 57 U/L Normal 14-59 [facility] Comment on above: Performed By: #### L IPID, T7, CMP, TSH #### [facility] [address] [address] [address] Marizol Macedo Anion gap [Moles/Vol] 11.9 mmol/L Normal [facility] Comment on above: Performed By: #### L IPID, T7, CMP, TSH #### [facility] [address] [address] [address] Marizol Macedo AST [Catalytic activity/Vol] 35 U/L Normal 15-37 [facility] Comment on above: Performed By: #### L IPID, T7, CMP, TSH #### [facility] [address] [place] [address] Dr. Marizol Macedo Bilirubin [Mass/Vol] 0.6 mg/dL Normal 0.2-1.0 [facility] Comment on above: Performed By: #### L IPID, T7, CMP, TSH #### [facility] [address] [address] [address] Marizol Macedo Calcium [Mass/Vol] 9.8 mg/dL Normal 8.5-10.1 [facility] Comment on above: Performed By: #### L IPID, T7, CMP, TSH #### [facility] [address] [address] [address] Marizol Macedo Chloride [Moles/Vol] 103 mmol/L Normal 98-107 [facility] Comment on above: Performed By: #### L IPID, T7, CMP, TSH #### [facility] [address] [address] [address] Marizol Macedo CO2 [Moles/Vol] 28.0 mmol/L Normal 21.0-32.0 [facility] Comment on above: Performed By: #### L IPID, T7, CMP, TSH #### [facility] [address] [address] [address] Marizol Macedo Creatinine [Mass/Vol] 0.75 mg/dL Normal 0.55-1.02 [facility] Comment on above: Performed By: #### L IPID, T7, CMP, TSH #### [facility] [address] [address] [address] Marizol Macedo EGFR-AF MAURITANIAN >60 Normal >=60 [facility] Comment on above: Performed By: #### L IPID, T7, CMP, TSH #### [facility] [address] [address] [address] Marizol Macedo EGFR-NON AF MAURITANIAN >60 Normal >=60 [facility] Comment on above: Performed By: #### L IPID, T7, CMP, TSH #### [facility] [address] [address] [address] Marizol Macedo Globulin (S) [Mass/Vol] 3.5 g/dL Normal [facility] Comment on above: Performed By: #### L IPID, T7, CMP, TSH #### [facility] [address] [address] [address] Marizol Macedo Glucose [Mass/Vol] 91 mg/dL Normal 74-106 [facility] Comment on above: Performed By: #### L IPID, T7, CMP, TSH #### [facility] [address] [address] [address] Marizol Macedo Potassium [Moles/Vol] 3.9 mmol/L Normal 3.5-5.1 [facility] Comment on above: Performed By: #### L IPID, T7, CMP, TSH #### [facility] [address] [address] [address] Marizol Macedo Protein [Mass/Vol] 7.4 g/dL Normal 6.4-8.2 [facility] Comment on above: Performed By: #### L IPID, T7, CMP, TSH #### [facility] [address] [address] [address] Marizol Macedo Sodium [Moles/Vol] 139 mmol/L Normal 136-145 [facility] Comment on above: Performed By: #### L IPID, T7, CMP, TSH #### [facility] [address] [address] [address] Marizol Macedo Urea nitrogen [Mass/Vol] 13.0 mg/dL Normal 7.0-18.0 [facility] Comment on above: Performed By: #### L IPID, T7, CMP, TSH #### [facility] [address] [address] [address] Marizol Macedo Urea nitrogen/Creatinine [Mass ratio] 17.3 mg/mg Normal [facility] Comment on above: Performed By: #### L IPID, T7, CMP, TSH #### [facility] [address] [place] [address] Dr. Marizol Macedo TSHon 04-28-2022 TSH 1.306 uIU/mL Normal 0.358-3.740 [facility] Comment on above: Performed By: #### L IPID, T7, CMP, TSH #### [facility] [address] [place] [address] Dr. Marizol Macedo CBC W/DIFFon 09-28-2017 ABS BASOPHILS 0.0 10*3/uL Normal 0.0-0.2 [facility] Comment on above: Performed By: #### 4 180, 92787 ####[facility] ABS IMM GRANS 0.0 10*3/uL Normal 0.0-0.2 [facility] Comment on above: Performed By: #### 4 180, 66975 ####[facility] ABS NEUTROPHILS 2.8 10*3/uL Normal 1.6-7.6 [facility] Comment on above: Performed By: #### 4 180, 83306 ####[facility] Basophils Auto #/vol (Bld) 0.5 % Normal 0.0-1.0 [facility] Comment on above: Performed By: #### 4 180, 28141 ####[facility]3000 [facility].[address] Eosinophils Auto #/vol (Bld) 0.1 10*3/uL Normal 0.0-0.5 [facility] Comment on above: Performed By: #### 4 180, 00933 ####[facility]3000 [facility].[address] Eosinophils/100 WBC Auto (Bld) 2.3 % Normal 0.0-6.0 [facility] Comment on above: Performed By: #### 4 180, 77945 ####[facility]3000 [facility].[address] Erythrocyte distribution width Auto Ratio (RBC) 12.9 % Normal 11.5-15.0 [facility] Comment on above: Performed By: #### 4 180, [address]40 ####[address] [address] [facility].[address] Hematocrit Auto Volume Fraction (Bld) 42.9 % Normal 36.0-45.0 [facility] Comment on above: Performed By: #### 4 180, 20500 ####[place] [address] [facility].[address] Hemoglobin mass conc (Bld) 14.1 g/dL Normal 12.0-15.0 [facility] Comment on above: Performed By: #### 4 180, 29473 ####[facility]3000 [facility].[address] IMMATURE GRANS 0.3 % Normal 0.0-1.0 [facility] Comment on above: Performed By: #### 4 180, 13266 ####[address] [place] [address] [facility] [place] [address], [facility] Lymphocytes Auto #/vol (Bld) 2.4 10*3/uL Normal 1.2-4.0 [facility] Comment on above: Performed By: #### 4 180, 19111 ####[facility] Lymphocytes/100 WBC Auto (Bld) 39.5 % Normal 20.0-45.0 [facility] Comment on above: Performed By: #### 4 1801, 81747 ####[facility] MCH Auto Entitic mass (RBC) 30.3 pg Normal 27.0-33.0 [facility] Comment on above: Performed By: #### 4 1801, 48224 ####[facility] MCHC Auto mass conc (RBC) 32.9 g/dL Normal 32.0-35.0 [facility] Comment on above: Performed By: #### 4 1801, 88298 ####[facility]3000 [facility].[address] MCV Auto Entitic volume (RBC) 92.3 fL Normal 82.0-98.0 [facility] Comment on above: Performed By: #### 4 1801, 90759 ####[facility] Monocytes Auto #/vol (Bld) 0.7 10*3/uL Normal 0.1-1.0 [facility] Comment on above: Performed By: #### 4 180, 16614 ####[facility]3000 [facility].[address] MONOS 11.2 % Normal 5.0-12.0 [facility] Comment on above: Performed By: #### 4 1801, 78300 ####[facility]3000 [facility].[address] Neutrophils/100 WBC Auto (Bld) 46.2 % Normal 40.0-72.0 [facility] Comment on above: Performed By: #### 4 180, 67761 ####[address] Nucleated RBC/100 WBC Ratio (Bld) 0 % Normal 0-0 [facility] Comment on above: Performed By: #### 4 1801, 76244 ####[address] PLAT CNT 263 10*3/uL Normal 150-400 [facility] Comment on above: Performed By: #### 4 180, 70756 ####[address] RBC Auto #/vol (Bld) 4.65 10*6/uL Normal 3.80-5.00 [facility] Comment on above: Performed By: #### 4 1801, 09678 ####[address] WBC Auto #/vol (Bld) 6.07 10*3/uL Normal 4.00-10.60 [facility] Comment on above: Performed By: #### 4 1801, 53773 ####[address] COMP METABOLIC PANELon 09-28 Albumin mass conc 4.1 g/dL Normal 3.5-5.7 [facility] Comment on above: Performed By: #### 4 180, 48060 ####[address] ALKALINE PHOSPH 73 IU/L Normal 34-104 [facility] Comment on above: Performed By: #### 4 1801, 57593 ####[facility] [place] [address], [place] ALT enzyme act/vol 54 U/L High 7-52 [facility] Comment on above: Performed By: #### 4 180, 32296 ####[facility] [place] [address], [place] AST enzyme act/vol 40 U/L High 13-39 [facility] Comment on above: Performed By: #### 4 180, 37088 ####[facility] [place] [address], [place] Bilirubin mass conc 0.4 mg/dL Normal 0.3-1.0 [facility] Comment on above: Performed By: #### 4 180, 10448 ####[facility] [place] [address], [place] Calcium mass conc 9.7 mg/dL Normal 8.6-10.3 [facility] Comment on above: Performed By: #### 4 180, 79881 ####[facility] [place] [address], [place] Chloride molar conc 103 mmol/L Normal 98-107 [facility] Comment on above: Performed By: #### 4 180, 08466 ####[facility], [place] [address], [place] CO2 molar conc 28 mmol/L Normal 21-31 [facility] Comment on above: Performed By: #### 4 180, 67434 ####[facility] [place] [address], [place] Creatinine mass conc 0.81 mg/dL Normal 0.60-1.20 [facility] Comment on above: Performed By: #### 4 180, 05213 ####[facility] [place] [address], [place] GFR/1.73 sq M predicted among blacks MDRD vol rate/area (S/P/Bld) mL/min/{1.73_m2} Normal >60 [facility] Comment on above: Performed By: #### 4 180, 45020 ####[facility] [place] [address], [facility] GFR/1.73 sq M predicted among non-blacks MDRD vol rate/area (S/P/Bld) mL/min/{1.73_m2} Normal >60 [facility] Comment on above: Performed By: #### 4 180, 65493 ####[facility] [place] [place] [address], [facility] Glucose mass conc 95 mg/dL Normal 70-100 [facility] Comment on above: Performed By: #### 4 180, 45267 ####[facility] [place] [place] [address], [facility] Potassium molar conc 4.4 mmol/L Normal 3.5-5.1 [facility] Comment on above: Performed By: #### 4 180, 13913 ####[facility] [place] [place] [address], [facility] Protein mass conc 7.2 g/dL Normal 6.0-8.3 [facility] Comment on above: Performed By: #### 4 180, 75641 ####[facility] [place] [place] [address], [facility] Sodium molar conc 139 mmol/L Normal 136-145 [facility] Comment on above: Performed By: #### 4 180, 84541 ####[facility] [id number], [facility] Urea nitrogen mass conc 19 mg/dL Normal 7-25 [facility] Comment on above: Performed By: #### 4 180, 85985 ####[facility] Glucose Glucometer (BldC) [M ass/Vol]on 08-17-2017 Glucose [Mass/Vol] 99 mg/dL [facility] Comment on above: Random Glucose Refer ence Range is dependent on time and content of last meal. Glucose of more than 200 mg/dL in a nonstressed, ambulatory subject supports the diagnosis of Diabetes Mellitus. CBC W/DIFFon 03-31-2017 Basophils Auto #/vol (Bld) 0.3 % Normal 0.0-2.0 [facility] Comment on above: Performed By: #### 4 180, 43714 ####[facility] [facility] [address], [facility] Eosinophils/100 WBC Auto (Bld) 2.1 % Normal 0.0-5.0 [facility] Comment on above: Performed By: #### 4 180, 24328 ####[facility] [facility].[address] Erythrocyte distribution width Auto Ratio (RBC) 13.0 % Normal 11.5-16.9 [facility] Comment on above: Performed By: #### 4 180, 37987 ####[facility] [facility].[address] Hematocrit Auto Volume Fraction (Bld) 42.6 % Normal 36.0-48.0 [facility] Comment on above: Performed By: #### 4 180, 13774 ####[facility] [facility].[address] Hemoglobin mass conc (Bld) 14.3 g/dL Normal 12.0-15.0 [facility] Comment on above: Performed By: #### 4 180, 46895 ####[facility] [place] [address], [facility] Lymphocytes/100 WBC Auto (Bld) 29.7 % Normal 20.0-40.0 [facility] Comment on above: Performed By: #### 4 180, 37624 ####[facility] MCH Auto Entitic mass (RBC) 30.7 pg Normal 24.0-32.0 [facility] Comment on above: Performed By: #### 4 180, 14376 ####[facility] [facility] MCHC Auto mass conc (RBC) 33.7 g/dL Normal 32.0-36.0 [facility] Comment on above: Performed By: #### 4 180, 19611 ####[facility] [facility].[address] MCV Auto Entitic volume (RBC) 91.2 fL Normal 80.0-100.0 [facility] Comment on above: Performed By: #### 4 180, 39928 ####[facility] [facility].[address] METHOD Normal RBC Morphology Normal [facility] Comment on above: Performed By: #### 4 180, 33717 ####[facility] [facility].[address] MONOS 6.4 % Normal 2-8 [facility] Comment on above: Performed By: #### 4 180, 26137 ####[facility] [facility].[address] Neutrophils/100 WBC Auto (Bld) 61.5 % Normal 50-70 [facility] Comment on above: Performed By: #### 4 180, 73327 ####[facility] [facility].[address] PLAT CNT 261 Thou/mm3 Normal 100-400 [facility] Comment on above: Performed By: #### 4 180, 19520 ####[facility] [facility].[address] RBC Auto #/vol (Bld) 4.67 mill/mm3 Normal 3.50-5.50 [facility] Comment on above: Performed By: #### 4 1801, 75927 ####[facility] [facility].[address] WBC Auto #/vol (Bld) 6.6 Thou/mm3 Normal 4.0-10.0 [facility] Comment on above: Performed By: #### 4 1801, 42693 ####[facility] [facility].[address] COMP METABOLIC PANELon 03-31 Albumin mass conc 4.0 g/dL Normal 3.5-5.7 [facility] Comment on above: Performed By: #### 4 1801, 75641 ####[facility] [facility].[address] ALKALINE PHOSPH 73 IU/L Normal 34-104 [facility] Comment on above: Performed By: #### 4 1801, 50701 ####[place] [address] [facility].[address] ALT enzyme act/vol 49 U/L Normal 7-52 [facility] Comment on above: Performed By: #### 4 1801, 87340 ####[facility] [facility].[address] AST enzyme act/vol 34 U/L Normal 13-39 [facility] Comment on above: Performed By: #### 4 1801, 26599 ####[facility] [facility].[address] Bilirubin mass conc 0.3 mg/dL Normal 0.3-1.0 [facility] Comment on above: Performed By: #### 4 1801, 87038 ####[facility] [place] [address], [place] Calcium mass conc 10.0 mg/dL Normal 8.6-10.3 [facility] Comment on above: Performed By: #### 4 180, 22966 ####[facility] [place] [address], [place] Chloride molar conc 103 mmol/L Normal 98-107 [facility] Comment on above: Performed By: #### 4 180, 68972 ####[facility] [place] [address], [place] CO2 molar conc 29 mmol/L Normal 21-31 [facility] Comment on above: Performed By: #### 4 180, 01740 ####[facility] [place] [address], [place] Creatinine mass conc 0.86 mg/dL Normal 0.60-1.20 [facility] Comment on above: Performed By: #### 4 180, 89048 ####[facility] [place] [address], [place] GFR/1.73 sq M predicted among blacks MDRD vol rate/area (S/P/Bld) mL/min/{1.73_m2} Normal >60 [facility] Comment on above: Performed By: #### 4 180, 80392 ####[facility] [place] [address], [place] GFR/1.73 sq M predicted among non-blacks MDRD vol rate/area (S/P/Bld) mL/min/{1.73_m2} Normal >60 [facility] Comment on above: Performed By: #### 4 180, 94550 ####[facility] [place] [address], [place] Glucose mass conc 86 mg/dL Normal 70-100 [facility] Comment on above: Performed By: #### 4 180, 61533 ####[facility] [place] [address], [facility] Potassium molar conc 4.1 mmol/L Normal 3.5-5.1 [facility] Comment on above: Performed By: #### 4 1802, 98028 ####[facility] [facility] Protein mass conc 7.0 g/dL Normal 6.0-8.3 [facility] Comment on above: Performed By: #### 4 1802, 67698 ####[facility] [facility].[address] Sodium molar conc 138 mmol/L Normal 136-145 [facility] Comment on above: Performed By: #### 4 1802, 53187 ####[facility] [place] [address], [facility] Urea nitrogen mass conc 14 mg/dL Normal 7-25 [facility] Comment on above: Performed By: #### 4 1802, 88000 ####[facility] [facility].[address] ANAon 02-10-2017 HELENE SCREEN <1:40 Normal <1:40,1:40 [facility] Comment on above: Performed By: #### 1 0008 ####[facility] [facility].[address] ANCA IGG WITH REFLEX [id number] on 02-10-2017 ANCA <1:20 Normal <1:20 [facility] Comment on above: Result Comment: The ANCA IFA is <1:20; therefore, no further testing willbe performed.INTERPRETIVE INFORMATION: Anti-Neutrophil Cyto Ab, IgGNeutrophil Cytoplasmic Antibodies (C-ANCA = granularcytoplasmic staining, P-ANCA = perinuclear staining) arefound in the serum of over 90 percent of patients withcertain necrotizing systemic vasculitides, and usually inless than 5 percent of patients with collagen vasculardisease or arthritis.Performed by [facility],[address] [place] [id number] jqo.[employer], Onel Connelly MD - Lab. Director ANTI DNAon 02-10-2017 ANTI DNA <1:10 Normal <1:10 [facility] Comment on above: Performed By: #### 1 0008 ####[facility] [place] [address], [facility] ANTI-BETA 2 GLYCOPROTEIN 1on 02-10-2017 ANTI B2GP1 IGA 9.3 a units Normal 0.0-19.9 [facility] Comment on above: Performed By: #### 1 0008 ####[facility] [place] [address], [facility] ANTI B2GP1 IGG 1.1 g units Normal 0.0-19.9 [facility] Comment on above: Performed By: #### 1 0008 ####[facility] [place] [address], [place] ANTI B2GP1 IGM 2.5 m units Normal 0.0-19.9 [facility] Comment on above: Performed By: #### 1 0008 ####[facility] [place] [address], [facility] ANTI-ENAon 02-10-2017 ANTI SM Negative Normal NEG,NEGATIVE,N eg [facility] Comment on above: Performed By: #### 1 0008 ####[facility] [place] [address], [place] ANTI SM/ANTIRNP Negative Normal NEG,NEGATIVE ,N eg [facility] Comment on above: Performed By: #### 1 0008 ####[facility] [place] [address], [place] ANTICARDIOLIPIN ANTIBODYon 04-12-2016 CARDIOLIPIN IGA 4.9 APL Normal 0.0-21.9 [facility] Comment on above: Performed By: #### 1 0008 ####[facility] [facility].[address] CARDIOLIPIN IGG 14.5 GPL Normal 0.0-22.9 [facility] Comment on above: Performed By: #### 1 0008 ####[facility] [facility].[address] CARDIOLIPIN IGM 9.5 MPL Normal 0.0-10.9 [facility] Comment on above: Performed By: #### 1 0008 ####[facility] [facility].[address] CBC W/DIFFon 02-10-2017 Basophils Auto #/vol (Bld) 0.4 % Normal 0.0-2.0 [facility] Comment on above: Performed By: #### 5 0103 ####[facility] [facility].[address] Eosinophils/100 WBC Auto (Bld) 2.5 % Normal 0.0-5.0 [facility] Comment on above: Performed By: #### 5 0103 ####[facility] [facility].[address] Erythrocyte distribution width Auto Ratio (RBC) 14.5 % Normal 11.5-16.9 [facility] Comment on above: Performed By: #### 5 0103 ####[facility] [facility].[address] Hematocrit Auto Volume Fraction (Bld) 41.0 % Normal 36.0-48.0 [facility] Comment on above: Performed By: #### 5 3 ####[facility] [facility].[address] Hemoglobin mass conc (Bld) 13.6 g/dL Normal 12.0-15.0 [facility] Comment on above: Performed By: #### 5 0103 ####[facility] [facility] Lymphocytes/100 WBC Auto (Bld) 26.7 % Normal 20.0-40.0 [facility] Comment on above: Performed By: #### 5 3 ####[facility] [facility] MCH Auto Entitic mass (RBC) 30.5 pg Normal 24.0-32.0 [facility] Comment on above: Performed By: #### 3 ####[facility] [facility].[address] MCHC Auto mass conc (RBC) 33.2 g/dL Normal 32.0-36.0 [facility] Comment on above: Performed By: #### 3 ####[facility] [facility] MCV Auto Entitic volume (RBC) 91.8 fL Normal 80.0-100.0 [facility] Comment on above: Performed By: #### 5 3 ####[facility] [facility].[address] METHOD Normal RBC Morphology Normal [facility] Comment on above: Performed By: #### 3 ####[facility] [facility].[address] MONOS 6.6 % Normal 2-8 [facility] Comment on above: Performed By: #### 3 ####[facility] [facility].[address] Neutrophils/100 WBC Auto (Bld) 63.8 % Normal 50-70 [facility] Comment on above: Performed By: #### 3 ####[facility] PLAT CNT 310 Thou/mm3 Normal 100-400 [facility] Comment on above: Performed By: #### 5 0103 ####[facility] [place] [address], [facility] RBC Auto #/vol (Bld) 4.47 mill/mm3 Normal 3.50-5.50 [facility] Comment on above: Performed By: #### 5 0103 ####[facility] [place] [address], [facility] WBC Auto #/vol (Bld) 7.6 Thou/mm3 Normal 4.0-10.0 [facility] Comment on above: Performed By: #### 5 3 ####[facility] [place] [address], [facility] COMP METABOLIC PANELon 02-10 Albumin mass conc 4.3 g/dL Normal 3.5-5.7 [facility] Comment on above: Performed By: #### 0 0121 ####[facility] [place] [address], [facility] ALKALINE PHOSPH 89 IU/L Normal 34-104 [facility] Comment on above: Performed By: #### 0 0121 ####[facility] [facility] [place] [address], [facility] ALT enzyme act/vol 35 U/L Normal 7-52 [facility] Comment on above: Performed By: #### 0 0121 ####[facility] [place] [place] [address], [facility] AST enzyme act/vol 27 U/L Normal 13-39 [facility] Comment on above: Performed By: #### 0 0121 ####[facility] [place] [address], [facility] Bilirubin mass conc 0.4 mg/dL Normal 0.3-1.0 [facility] Comment on above: Performed By: #### 0 0121 ####[facility] [place] [address], [facility] Calcium mass conc 9.9 mg/dL Normal 8.6-10.3 [facility] Comment on above: Performed By: #### 0 0121 ####[facility] [place] [address], [facility] Chloride molar conc 102 mmol/L Normal 98-107 [facility] Comment on above: Performed By: #### 0 0121 ####[facility] [facility] [place] [address], [facility] CO2 molar conc 25 mmol/L Normal 21-31 [facility] Comment on above: Performed By: #### 0 0121 ####[facility] [facility] [place] [address], [facility] Creatinine mass conc 0.87 mg/dL Normal 0.60-1.20 [facility] Comment on above: Performed By: #### 0 0121 ####[facility] [place] [address], [facility] GFR/1.73 sq M predicted among blacks MDRD vol rate/area (S/P/Bld) mL/min/{1.73_m2} Normal >60 [facility] Comment on above: Performed By: #### 0 0121 ####[facility] [facility] [place] [address], [facility] GFR/1.73 sq M predicted among non-blacks MDRD vol rate/area (S/P/Bld) mL/min/{1.73_m2} Normal >60 [facility] Comment on above: Performed By: #### 0 0121 ####[facility] [place] [address], [facility] Glucose mass conc 99 mg/dL Normal 70-100 [facility] Comment on above: Performed By: #### 0 0121 ####[facility] [place] [address], [facility] Potassium molar conc 4.1 mmol/L Normal 3.5-5.1 [facility] Comment on above: Performed By: #### 0 0121 ####[facility] [place] [address], [facility] Protein mass conc 7.5 g/dL Normal 6.0-8.3 [facility] Comment on above: Performed By: #### 0 0121 ####[facility] [place] [address], [facility] Sodium molar conc 136 mmol/L Normal 136-145 [facility] Comment on above: Performed By: #### 0 0121 ####[facility] [place] [address], [facility] Urea nitrogen mass conc 20 mg/dL Normal 7-25 [facility] Comment on above: Performed By: #### 0 0121 ####[facility] [place] [address], [facility] COMPLEMENT 3on 02-10-2017 COMPLEMENT 3 154 mg/dL High 79-152 [facility] Comment on above: Performed By: #### 1 0204, 00557, 90291 ####[facility] COMPLEMENT 4on 02-10-2017 COMPLEMENT 4 34 mg/dL Normal 16-38 [facility] Comment on above: Performed By: #### 1 0204, 08004, 41331 ####[facility] [place] [address], [facility] CREATININE URINE RANDOMon CREATININE 138.0 mg/dL Normal [facility] Comment on above: Result Comment: Ther e are no established reference values for random urine specimens Performed By: #### 4 1802, 55680 ####[facility] [place] [address], [facility] CRYOGLOBULIN ILon 02-10-2017 CRYOGLOBULIN 0 mg/dL Normal 0-10 [facility] IL Normal [facility] CYCLIC CITRULLINATED PEPTIDE [place] [id number] 02-10-2017 CYCLIC CIT PEP 6 Units Normal 0-19 [facility] Comment on above: Result Comment: INTE [...] results should bemonitored and testing repeated.Performed by [facility],[address] [place] [id number] vpr.[facility], Onel Connelly MD - Lab. Director HEPATITIS B CORE ANTIBODYon 02-10-2017 HEP B CORE AB NONREACTIVE Normal NONREACTIVE [facility] Comment on above: Performed By: #### 3 1397, 36268, 99189, 00285 ####[facility] [place] [address], [facility] HEPATITIS B SURFACE ANTIBODY QUANTon 02-10-2017 HEP B SURF AB 0.00 mIU/ml Normal [facility] Comment on above: Result Comment: INTE RPRETATION:NONREACTIVE<8.00 mIU/mLINDETERMINATE8.00 - 12.00 mIU/mLREACTIVE>12 mIU/mL Performed By: #### 1 0008 ####[facility] HEPATITIS B SURFACE ANTIGEN QUALon 02-10-2017 HEP B SURF AG QUAL NONREACTIVE Normal NONREACTIVE [facility] Comment on above: Performed By: #### 1 0008 ####[facility] [facility] [place] [address], [facility] HEPATITIS C ANTIBODYon 02-10 ANTI-HCV NONREACTIVE Normal NONREACTIVE [facility] Comment on above: Performed By: #### 3 1397, 30367, 25044, 12558 ####[facility] [facility].[address] RHEUMATOID FACTOR SERUMon RA <20 Normal 0-20 [facility] Comment on above: Performed By: #### 1 0204, 72025, 35348 ####[facility] [facility].[address] SJOGRENS ANTIBODIESon 2016 SS-A Negative Normal NEG,NEGATIVE,N eg [facility] Comment on above: Performed By: #### 1 0008 ####[facility] [facility].[address] SS-B Negative Normal NEG,NEGATIVE,N eg [facility] Comment on above: Performed By: #### 1 0008 ####[facility] [place] [address], [facility] T PROT UR Adam 02-10-2017 Protein mass conc 29.0 mg/dL Normal [facility] Comment on above: Result Comment: Ther e are no established reference values for random urine specimens Performed By: #### 4 1175, 11170 ####[facility] [place] [address], [facility] TB QUANTIFERONon 02-10-2017 MITOGEN MINUS NIL >=10 Normal [facility] Comment on above: Performed By: #### 4 180, 55142 ####[facility] [place] [address], [facility] NIL 0.03 IU/mL Normal [facility] Comment on above: Performed By: #### 4 180, 78700 ####[facility] [facility] [place] [address], [facility] TB AG MINUS NIL 0.01 IU/mL Normal [facility] Comment on above: Performed By: #### 4 180, 75421 ####[facility] [place] [address], [facility] TB ANTIGEN 0.04 IU/mL Normal [facility] Comment on above: Performed By: #### 4 180, 79090 ####[facility] [facility].[address] TB QUANTIFERON Negative Normal NEGATIVE [facility] Comment on above: Result Comment: Boy [...] and LTBI(http://www.cdc.gov/nchstp/tb/). Performed By: #### 4 180, 18254 ####[facility] [place] [address], [facility] URINALYSISon 02-10-2017 APPEARANCE CLOUDY Abnormal CLEAR [facility] Comment on above: Performed By: #### 1 0008 ####[facility] [place] [address], [facility] BACTERIA MOD Abnormal NONE SEEN [facility] Comment on above: Performed By: #### 1 0008 ####[facility] [place] [address], [facility] BILIRUBIN Negative Normal NEGATIVE [facility] Comment on above: Performed By: #### 1 0008 ####[facility] [place] [address], [facility] BLOOD Negative Normal NEGATIVE [facility] Comment on above: Performed By: #### 1 0008 ####[facility] [facility] [place] [address], [facility] COLOR YELLOW Normal YELLOW [facility] Comment on above: Performed By: #### 1 0008 ####[facility] [facility] [place] [address], [facility] EPIS MANY Abnormal FEW [facility] Comment on above: Performed By: #### 1 0008 ####[facility] [facility] [id number], [facility] GLUCOSE Negative Normal NEGATIVE [facility] Comment on above: Performed By: #### 1 0008 ####[facility] [place] [address], [facility] INR Coag RelTime (Bld) 0-2 Abnormal 0-0 [facility] Comment on above: Performed By: #### 1 0008 ####[facility] [place] [address], [place] KETONE Negative Normal NEGATIVE [facility] Comment on above: Performed By: #### 1 0008 ####[facility] [place] [address], [facility] LEUK DIMPLE LARGE Abnormal NEGATIVE [facility] Comment on above: Performed By: #### 1 0008 ####[facility] [facility].[address] MUCUS THREADS OCC Abnormal NONE SEEN [facility] Comment on above: Performed By: #### 1 0008 ####[facility] NITRITE Negative Normal NEGATIVE [facility] Comment on above: Performed By: #### 1 0008 ####[facility] PH 5.0 Normal 5.0-8.0 [facility] Comment on above: Performed By: #### 1 0008 ####[facility] Protein mass conc Negative Normal NEGATIVE [facility] Comment on above: Performed By: #### 1 0008 ####[facility] SPEC GRAV 1.020 Normal 1.015-1.020 [facility] Comment on above: Performed By: #### 1 0008 ####[facility] WBC UA >100 Abnormal 0-0 [facility] Comment on above: Performed By: #### 1 0008 ####[facility] CYTOLOGY SPECIMENon 02-02-20 17 CYTOLOGY SPEC Normal [facility] Comment on above: Order Comment: Bita nt: A. PERIESOPHAGEAL LESION FNA - CYTOLYT, 10 SLIDES Result Comment: Note : Specimens received on or after December:* Pathology and Cytology reports are located in [facility] in the folder labeled Medical Record Forms.* Reports are also in the Physician Portal.* Reports will be faxed to phycician's office.* For assistance locating reports call: * Willard Guadarrama [phone] * LAB [phone] Performed By: #### L UHCYTO ####[place] [id number] [place] [address] Albumin [Mass/volume] in Ser um or Plasmaon 01-03-2017 Albumin [Mass/Vol] 3.3 g/dL 3.2-5.5 [facility] Basophils Auto (Bld) [#/Vol] on 01-03-2017 Basophils (Bld) [#/Vol] 0.0 10*3/uL 0.0-0.2 [facility] Basophils/100 WBC Auto (Bld) on 01-03-2017 Basophils/100 WBC (Bld) 0.6 % . [facility] Creatinine and Glomerular fi ltration rate.predicted panel (S/P/Bld)on 01-03-2017 Creatinine [Mass/Vol] 1.00 mg/dL 0.44-1.03 [facility] Eosinophils Auto (Bld) [#/Vo l]on 01-03-2017 Eosinophils (Bld) [#/Vol] 0.1 10*3/uL 0.0-0.45 [facility] Eosinophils/100 WBC Auto (Bl d)on 01-03-2017 Eosinophils/100 WBC (Bld) 1.5 % . [facility] Erythrocyte distribution wid th Auto (RBC) [Ratio]on 01-03-2017 Erythrocyte distribution width (RBC) [Ratio] 14.5 % 11.9-15.3 [facility] Estimated glomerular filtrat ion rate (GFR) non- Americanon 01-03-2017 GFR/1.73 sq M.predicted among non-blacks MDRD (S/P/Bld) [Vol rate/Area] 56 mL/min/{1.73_m2} [facility] Globulin Calc (S) [Mass/Vol] on 01-03-2017 Globulin (S) [Mass/Vol] 3.6 g/dL [facility] Hematocrit Auto (Bld) [Volum e fraction]on 01-03-2017 Hematocrit (Bld) [Volume fraction] 36.3 % 34.0-46.4 [facility] Hemoglobin [Mass/volume] in Bloodon 01-03-2017 Hemoglobin (Bld) [Mass/Vol] 12.1 g/dL 11.8-15.4 [facility] Laboratory - Chemistry and C hemistry - challengeon 01-03-2017 GFR/1.73 sq M.predicted among blacks MDRD (S/P/Bld) [Vol rate/Area] mL/min/{1.73_m2} [facility] Comment on above: GFR estimated refere nce range: According to KDOQI guidelines, <60 ml/min/1.73m2 is sufficient to diagnose a patient with chronic kidney disease. Lymphocytes Auto (Bld) [#/Vo l]on 01-03-2017 Lymphocytes (Bld) [#/Vol] 2.1 10*3/uL 1.00-4.8 [facility] Lymphocytes/100 WBC Auto (Bl d)on 01-03-2017 Lymphocytes/100 WBC (Bld) 27.4 % . [facility] MCH Auto (RBC) [Entitic mass ]on 01-03-2017 MCH (RBC) [Entitic mass] 30.8 pg 24.7-34.3 [facility] MCHC Auto (RBC) [Mass/Vol]on 01-03-2017 MCHC (RBC) [Mass/Vol] 33.4 g/dL 32.0-35.0 [facility] MCV Auto (RBC) [Entitic vol] on 01-03-2017 MCV (RBC) [Entitic vol] 92.4 fL 80-100 [facility] Monocytes Auto (Bld) [#/Vol] on 01-03-2017 Monocytes (Bld) [#/Vol] 1.0 10*3/uL High 0.0-0.8 [facility] Monocytes/100 WBC Auto (Bld) on 01-03-2017 Monocytes/100 WBC (Bld) 12.7 % . [facility] Neutrophils Auto (Bld) [#/Vo l]on 01-03-2017 Neutrophils (Bld) [#/Vol] 4.4 10*3/uL 1.8-7.7 [facility] Neutrophils/100 WBC Auto (Bl d)on 01-03-2017 Neutrophils/100 WBC (Bld) 57.8 % . [facility] No Panel Informationon 01-03 Pharmacy Creatinine Clearance (Chem N/A [facility] Platelet mean volume Auto (B ld) [Entitic vol]on 01-03-2017 Platelet mean volume (Bld) [Entitic vol] 8.2 fL 6.3-10.7 [facility] Platelets Auto (Bld) [#/Vol] on 01-03-2017 Platelets (Bld) [#/Vol] 429 10*3/uL 150-450 [facility] Protein [Mass/volume] in Ser um or Plasmaon 01-03-2017 Protein [Mass/Vol] 6.9 g/dL 6.1-7.9 [facility] RBC Auto (Bld) [#/Vol]on RBC (Bld) [#/Vol] 3.93 10*6/uL 3.60-5.00 [facility] Serum or plasma alanine briggs otransferase measurement without P-5'-P (enzymatic activion 01-03-2017 ALT No additional P-5'-P [Catalytic activity/Vol] 37 U/L 10-60 [facility] Serum or plasma albumin/glob ulin mass ratioon 01-03-2017 Albumin/Globulin [Mass ratio] 0.9 {ratio} [facility] Serum or plasma alkaline bita sphatase measurement (enzymatic activity/volume)on 01-03-2017 ALP [Catalytic activity/Vol] 89 U/L 32-92 [facility] Serum or plasma aspartate am inotransferase measurement (enzymatic activity/volume)on 01-03-2017 AST [Catalytic activity/Vol] 30 U/L 10-42 [facility] Serum or plasma calcium katheryn urement (mass/volume)on 01-03-2017 Calcium [Mass/Vol] 9.4 mg/dL 8.2-10.2 [facility] Serum or plasma chloride claudia surement (moles/volume)on 01-03-2017 Chloride [Moles/Vol] 98 mmol/L 95-114 [facility] Serum or plasma glucose katheryn urement (mass/volume)on 01-03-2017 Glucose [Mass/Vol] 107 mg/dL High 70-100 [facility] Comment on above: ADA recommended refe rence rangeRandom Glucose Reference Range is dependent on time and content of last meal. Glucose of more than 200 mg/dL in a nonstressed, ambulatory subject supports the diagnosis of Diabetes Mellitus. Serum or plasma potassium me asurement (moles/volume)on 01-03-2017 Potassium [Moles/Vol] 4.1 mmol/L 3.5-5.1 [facility] Serum or plasma sodium measu rement (moles/volume)on 01-03-2017 Sodium [Moles/Vol] 139 mmol/L 136-146 [facility] Serum or plasma total biliru bin measurement (mass/volume)on 01-03-2017 Bilirubin [Mass/Vol] 0.3 mg/dL 0.3-1.2 [facility] Serum or plasma total carbon dioxide measurement (moles/volume)on 01-03-2017 CO2 [Moles/Vol] 29.5 mmol/L 22.0-30.0 [facility] Serum or plasma urea nitroge n measurement (mass/volume)on 01-03-2017 Urea nitrogen [Mass/Vol] 12 mg/dL 9-23 [facility] WBC Auto (Bld) [#/Vol]on WBC (Bld) [#/Vol] 7.6 10*3/uL 3.8-11.6 [facility] No Panel Information [facility] Vital Signs Date Time Vital Sign Value Performing Clinician Ana rosa 01-30-2024 10:17040 Body height 167.64 cm MD Christian Steiner Work Phone: [facility] 01-30-2024 10:17040 Body mass index (BMI) [Ratio] 26.3 kg/m2 MD Christian Steiner Work Phone: [facility] 01-30-2024 10:17040 Body temperature 97.3 [degF] MD Christian Steiner Work Phone: [facility] 01-30-2024 10:17040 Body weight 73.93 kg MD Christian Steiner Work Phone: [facility] 01-30-2024 10:17-040 Heart rate 86 /min MD Christian Steiner Work Phone: [facility] 01-30-2024 10:17-0400 Respiratory rate 16 /min MD Christian Steiner Work Phone: [facility] 01-30-2024 10:17-0400 SaO2% (BldA) [Mass fraction] 96 % MD Christian Steiner Work Phone: [facility] 07-14-2023 11:29-0400 Body height 157.5 cm Lynsey Saldana MD Work Phone: [facility] 07-14-2023 11:29-0400 Body mass index (BMI) [Ratio] 30 kg/m2 Lynsey Saldana MD Work Phone: [facility] 07-14-2023 11:29-0400 Body weight 74.39 kg Lynsey Saldana MD Work Phone: [facility] 07-14-2023 11:29-0400 Diastolic blood pressure 84 mm[Hg] Lynsey Saldana MD Work Phone: [facility] 07-14-2023 11:29-0400 Heart rate 79 /min Lynsey Saldana MD Work Phone: [facility] 07-14-2023 11:29-0400 Systolic blood pressure 134 mm[Hg] Lynsey Saldana MD Work Phone: [facility] 01-21-2023 09:58-0400 Body temperature 97.2 [degF] MD Christian Steiner Work Phone: [facility] 01-21-2023 09:58-0400 Body weight 76.65 kg MD Christian Steiner Work Phone: [facility] 01-21-2023 09:58-0400 Diastolic blood pressure 78 mm[Hg] MD Christian Steiner Work Phone: [facility] 01-21-2023 09:58-0400 Heart rate 71 /min MD Christian Steiner Work Phone: [facility] 01-21-2023 09:58-0400 Respiratory rate 16 /min MD Christian Steiner Work Phone: [facility] 01-21-2023 09:58-0400 SaO2% (BldA) [Mass fraction] 98 % MD Christian Steiner Work Phone: [facility] 01-21-2023 09:58-0400 Systolic blood pressure 141 mm[Hg] MD Christian Steiner Work Phone: [facility] 01-21-2022 10:03-0400 Body height 167.64 cm MD Christian Steiner [facility] 01-21-2022 10:03-0400 Body weight 82.64 kg MD Christian Steiner [facility] 01-21-2022 10:03-0400 Diastolic blood pressure 78 mm[Hg] [facility] 10:03-0400 Heart rate 98 /min MD Christian Steiner [facility] 01-21-2022 10:03-0400 Respiratory rate 18 /min MD Christian Steiner [facility] 01-21-2022 10:03-0400 SaO2% (BldA) [Mass fraction] 98 % [facility] 01-21-2022 10:03-0400 Systolic blood pressure 122 mm[Hg] [facility] 01-21-2021 10:29-0400 Body temperature 98 [degF] MD Christian Steiner [facility] Encounters Encounter Date Encounter Type Care Provider Facility Start: 04-18-2024 End: 04-18-2024 ambulatory CK GONZALEZ Facility:[facility] Start: 04-18-2024 End: 04-18-2024 Patient encounter procedure [...] Registered Recurring MD Tigre Steiner [facility] Work Phone: Start: 01-30-2024 End: 01-30-2024 ambulatory MD Christian Steiner Work Phone: [facility] Work Phone: Start: 01-30-2024 End: 01-30-2024 Patient encounter procedure MD [facility] Work Phone: Start: 12-19-2023 End: 12-19-2023 [...] Start: 10-17-2023 End: 10-17-2023 ambulatory ALESHA SCHULTE Facility:[facility] Start: 10-17-2023 End: 10-17-2023 Patient encounter procedure Alesha Schulte MD Work Phone: Ophthalmology Comment on above: Primary open-angle g laucoma, bilateral, mild stage (Primary Dx) Start: 09-05-2023 End: 09-05-2023 ambulatory ALESHA SCHULTE Facility:[facility] Start: 09-05-2023 End: 09-05-2023 Patient encounter procedure Alesha Schulte MD Work Phone: Ophthalmology Comment on above: Primary open-angle g laucoma, bilateral, mild stage (Primary Dx) Start: 08-24-2023 End: 08-24-2023 ambulatory SARAHI PIERSON Not Available Start: 07-27-2023 End: 07-27-2023 ambulatory ALESHA SCHULTE Facility:[facility] Start: 07-27-2023 End: 07-27-2023 Patient encounter procedure Alesha Schulte MD Work Phone: Ophthalmology Comment on above: Primary open-angle g laucoma, bilateral, mild stage (Primary Dx) Start: 07-14-2023 End: 07-14-2023 ambulatory [facility] Dee RENY [facility] Start: 07-14-2023 End: 07-14-2023 Office outpatient visit 15 minutes Lynsey Saldana MD Work Phone: [facility] Comment on above: Lymphedema (Primary Dx) Start: 05-18-2023 Chart abstracting Jr. Todd Boudreaux DO Work Phone: [facility] Start: 05-18-2023 End: 05-18-2023 ambulatory TODD ANDREW Not Available Start: 01-21-2023 End: 01-21-2023 ambulatory MD Christian Steiner Work Phone: [facility] Work Phone: Start: 01-21-2023 End: 01-21-2023 Registered Recurring MD Christian Steiner Work Phone: [facility] Work Phone: Start: 01-17-2023 [...] 01-21-2022 End: 01-21-2022 ambulatory MD Christian Steiner [facility] Work Phone: Start: 01-21-2022 End: 01-21-2022 Registered Recurring MD [facility] Start: 01-03-2022 End: 02-01-2022 ambulatory COVARRUBIAS H FAWWAD Facility:[facility] Start: 12-03-2021 End: 01-02-2022 ambulatory COVARRUBIAS H FAWWAD Facility:[facility] Start: 11-02-2021 End: 12-02-2021 ambulatory COVARRUBIAS H FAWWAD Facility:[facility] Start: 10-02-2021 End: 10-30-2021 ambulatory COVARRUBIAS H FAWWAD Facility:[facility] Start: 07-19-2018 Patient encounter procedure Kacie Naty Jarrod Facility:[id number] Start: 01-17-2018 Patient encounter procedure Kacie Naty Jarrod Facility:[id number] Start: 09-28-2017 End: 09-29-2017 Patient encounter EMELY DOMENICO Facility:[facility] Start: 08-18-2017 Patient encounter procedure Christian Steiner Facility:[id number] Start: 03-31-2017 End: 04-01-2017 Patient encounter EMELY DOMENICO Facility:[facility] Start: 02-10-2017 End: 02-11-2017 Patient encounter EMELY DOMENICO Facility:[facility] Start: 01-28-2017 Ambulatory Pal Deshawn Facility:[facility] Procedures Date Procedure Procedure Detail Performing Clinician [...] Visit [facility] [address] [place] [address] Jr. Todd Boudreaux, DO [address] [address] [facility] Start: 01-22-2025 Screening for malign ant neoplasm of breast Mammogram Screening [facility] Start: 10-22-2024 End: 10-22-2024 Patient encounter procedure 10/22/2024 10:45 AM EDT Office Visit [facility] [address] [place], [place] [id number] Alesha Schulte MD [address] [place] [address] RTC: 6 Months Full OCT ON/GCA + HVF 24-2 [facility] Comment on above: RTC: [address] ON/GCA + HVF 24-2 [facility] Start: 07-13-2024 Adult BMI Screening Adult BMI Screen ing [facility] Start: 07-13-2024 Tobacco Screening Tobacco Screening [facility] Start: 07-12-2024 End: 07-12-2024 Patient encounter procedure 07/12/2024 8:30 AM EDT Office Visit [facility] [address] [place] [address] Lynsey Saldana MD [address], [facility] [address] [place] [address] [facility] Start: 04-18-2024 End: 04-18-2024 Patient encounter procedure 04/18/2024 10:30 AM EST Office Visit [facility] [address] [place] [address] Ck Gonzalez, OD [address] [place] [address] Return in about 6 months (around 04/18/2024) for VATA with TH. Ophthalmology Comment on above: Return in about 6 mo nths (around 04/18/2024) for VATA with TH. Start: 04-09-2024 End: 04-09-2024 Patient encounter procedure 04/09/2024 2:30 PM EST Office Visit [facility] [address] [place] [address] Dino George, PA [address] [place] [address] Acute pain of right shoulder (Primary Dx) [facility] Comment on above: Acute pain of right shoulder (Primary Dx) Start: 04-04-2024 Advance Directive Discussion Advance Directive Discussion [facility] Start: 01-21-2024 Screening for malign ant neoplasm of breast Mammogram Screening [facility] Start: 01-16-2024 End: 01-16-2024 Patient encounter procedure 01/16/2024 10:15 AM EDT Office Visit [facility] [address] [place] [id number] Dino George PA [address] [facility] [address] [place] [address] [facility] Start: 12-19-2023 End: 12-19-2023 Patient encounter procedure 12/19/2023 10:15 AM EDT Office Visit [facility] [address] [place] [id number] Dino George PA [address] [facility] [address] [place] [address] Acute pain of right knee (Primary Dx); History of total knee replacement, right [facility] Comment on above: Acute pain of right knee (Primary Dx); History of total knee replacement, right Start: 12-04-2023 Covid-19 Vaccine ( season) Covid-19 Vaccine ( season) [facility] Start: 12-04-2023 Influenza vaccination [facility] Start: 10-17-2023 End: 10-17-2023 Patient encounter procedure 10/17/2023 1:15 PM EDT Office Visit [facility] [address] [place] [address] Alesha Schulte MD [address] [place] [address] Return for VATA. Ophthalmology Comment on above: Return for VATA. Start: 09-05-2023 End: 09-05-2023 Patient encounter procedure 09/05/2023 9:45 AM EDT Office Visit [facility] [address] [place] [address] Alesha Schulte MD [address] [address] Return for slt od on a amonday next available Ophthal[facility] Comment on above: Return for slt od on a amonday next available Start: 05-18-2023 End: 05-18-2023 Patient encounter procedure 05/18/2023 10:15 AM EST Office Visit [facility] [address] [place] [id number] Jr. Todd Boudreaux C, DO [address] [place] [address] [facility] Start: 04-04-2023 Advance Directive Discussion Advance Directive Discussion [facility] Start: 04-04-2023 Behavioral Health Screening Behavioral Health Screening [facility] Start: 02-12-2023 Diabetes Screening Diabetes Screenin g [facility] Start: 12-03-2022 Covid-19 Vaccine ( season) Covid-19 Vaccine () [facility] Start: 12-03-2022 Influenza vaccination [facility] Start: 04-04-2022 ADVANCE DIRECTIVE DISCUSSION ADVANCE DIRECTIVE DISCUSSION [facility] Start: 04-04-2022 [facility]PRESSION [facility]MENT [facility] Start: 12-03-2021 Influenza vaccination INFLUENZA (#1) [facility] Start: 04-04-2021 ADVANCE DIRECTIVE DISCUSSION ADVANCE DIRECTIVE DISCUSSION [facility] Start: 04-04-2021 DEPRESSION ASSESSMENT [facility] Start: 2017 BONE DENSITY BONE DENSITY [facility] Start: 2017 Bone Density Screening Bone Density Screening [facility] Start: 2017 Fall Risk Screening Fall Risk Screen ing [facility] Start: 2017 PNEUMOCOCCAL: 65+ (1 - PCV) PNEUMOCOCCAL: 65+ (1 - PCV) [facility] Start: 2017 Screening for osteoporosis Bone Density Screening [facility] Start: 11-13-2014 Administration of varicella zoster vaccine Zoster (Shingles) Vaccine (2 of 3) [facility] Start: 11-13-2014 SHINGRIX VACCINE (2 of 3) SHINGRIX VACCINE (2 of 3) [facility] Start: 2012 RSV Vaccine (1 - 1-d ose 60+ series) RSV Vaccine (1 - 1-dose 60+ series) [facility] Start: 2012 RSV Vaccine (1 - Ris k 60-74 years 1-dose series) RSV Vaccine (1 - Risk 60-74 years 1-dose series) [facility] Start: 2002 SHINGRIX VACCINE (1 of 2) SHINGRIX VACCINE (1 of 2) [facility] Start: 1997 COLOGUARD (FIT-DNA) COLOGUARD (FIT-D NA) [facility] Start: 1997 Colonoscopy COLONOSCOPY [facility] Start: 1997 COLORECTAL CANCER SCREENING COLORECTAL CANCER SCREENING [facility] Start: [address] COLONOGRAPHY [facility] Start: 1997 DIABETES SCREEN DIABETES SCREEN [facility] Start: 1997 Diabetes Screening Diabetes Screenin g [facility] Start: 1997 FECAL OCCULT BLOOD FECAL OCCULT BLOO D [facility] Start: 1997 Lipid 1996 panel - S amalia or Plasma Lipid Screening [facility] Start: 1997 Lipid panel Lipid Screening [facility] Start: 1997 LIPID SCREEN LIPID SCREEN [facility] Start: 1997 Screening for malign ant neoplasm of colon [facility] Start: [address] 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 ANNUAL PCP TEAM CHRONIC DISEASE VISIT [facility] Start: 1970 Anxiety Screening Anxiety Screening [facility] Start: 1970 Depression Screening Depression Scre ening [facility] Start: 1970 HEPATITIS C SCREENING HEPATITIS C [facility] Start: 1970 Hepatitis C screening Hepatitis C [facility] Start: 1970 SPIROMETRY SPIROMETRY [facility] Start: 1964 Depression Screening Depression Scre ening [facility] Start: 1952 COVID-19 VACCINE (#1) COVID-19 VACCI NE (#1) [facility] Start: 1952 Medicare Annual Well ness Visit Medicare Annual Wellness Visit [facility] MG Breast - left Screening [facility] MG Breast - left Screening [facility] MG Breast - left Screening [facility] XR Hip - right 3 Views XR hip ri ght 2 or 3 views Imaging Routine Acute right hip pain 12/19/2023 10:12 AM EDT [facility] Work Phone: [facility] Immunizations Immunization Date Immunization Notes Care Provider Fa cili 01-05-2020 influenza (HD-IIV4) vaccine, age 65+ yr, high dose, quadrivalent, PF (FLUZONE HIGH-DOSE) Alesha Schulte MD Work Phone: [facility] 01-05-2020 influenza virus vacc ine, unspecified formulation Alesha Schulte MD Work Phone: [facility] 01-25-2018 pneumococcal polysaccharide vaccine, 23 valent Alesha Schulte MD Work Phone: [facility] 10-20-2017 pneumococcal conjuga te vaccine, 13 valent Alesha Schulte MD Work Phone: [facility] 09-17-2015 pneumococcal polysaccharide vaccine, 23 valent Alesha Schulte MD Work Phone: [facility] 06-09-2015 influenza, injectabl e, quadrivalent, preservative free Alesha Schulte MD Work Phone: [facility] 09-18-2014 zoster vaccine, live Raji Schulte MD Work Phone: [facility] 09-18-2014 zoster vaccine, unspecified formulation Lynsey Saldana MD Work Phone: [facility] 01-30-2009 novel influenza-H1N1 -09, preservative-free, injectable Alesha Schulte MD Work Phone: [facility] Payers Date Payer Category Payer Private Health Insurance [employer] [id number] 2018 Unknown [id number] 2017 Medicare [id number] 2016 Self-pay [id number] 1959 Medicare [id number] 1959 Unknown [id number] 1952 Unknown [id number]. 356 1952 Unknown [id number]. 356 1952 Unknown [id number] [id number]. 356 1952 Unknown [id number] [id number]. 593 1952 Unknown [id number] [id number]. 593 1952 Unknown [id number] [id number]. 593 1952 Unknown [id number] [id number]. 593 1952 Unknown [id number] [id number]. 593 1952 Unknown [id number] [id number]. 593 1952 Unknown [id number] 2.16.840.1.855978.3.579.2. 593 1950 Unknown [id number] 2.16.840.1.611357.3.579.2. 593 1950 Unknown [id number] 2.16.840.1.904197.3.579.2. 593 1950 Unknown [id number] 2.16.840.1.056784.3.579.2. 593 1950 Unknown [id number] 2.16.840.1.564025.3.579.2. 593 1950 Unknown [id number] 2.16.840.1.866398.3.579.2. 593 1950 Unknown [id number] 2.16.840.1.237388.3.579.2. 593 1950 Unknown [id number] 2.16.840.1.995886.3.579.2. 593 1950 Unknown [id number] 2.16.840.1.413741.3.579.2. 1286 1950 Unknown [id number] 2.16.840.1.720145.3.579.2. 1259 1950 Unknown [id number] 2.16.840.1.789222.3.579.2. 1259 1950 Unknown [id number] 2.16.840.1.242958.3.579.2. 1259 1950 Unknown [id number] 2.16.840.1.432640.3.579.2. 1259 1950 Unknown [id number] 2.16.840.1.533410.3.579.2. 1259 1950 Unknown [id number] 2.16.840.1.219164.3.579.2. 1259 Unknown [id number] Unknown [id number] 2.16.840.1.135371.3.579.2. 531 Social History Date Type Detail Facility Start: 01-21-2021 End: 03-25-2022 Tobacco smoking status NHIS Never smoked tobacco (finding) [facility] Start: 1950 Sex Assigned At Female [facility] Start: 02-27-2019 End: 03-25-2022 Tobacco use and exposure Smokeless tobacco non-user [facility] Start: 09-18-2019 End: 04-18-2024 Alcohol intake Current drinker of alcohol (finding) [facility] Start: 09-18-2019 History SDOH Alcohol Frequency 2 [facility] Start: 09-18-2019 History SDOH Alcohol Std Drinks 1 [facility] Start: 02-27-2019 Alcohol Comment a glass of wine once every 2-3 months [facility] Start: 1950 Sex Assigned At Not on file [facility] Start: 02-27-2019 End: 05-15-2020 History of Social function [facility] Start: 02-27-2019 End: 05-15-2020 Alcohol Use Disorder Identification Test - Consumption [AUDIT-C] [facility] Frequency of Alcohol Consumption Monthly or less [facility] Start: 09-25-2022 End: 04-09-2024 Alcohol intake Lifetime non-drinker (finding) [facility] Start: 09-25-2022 Alcohol Comment caffeine intake: 2-3 cups per day [facility] Start: 09-14-2022 Gender identity Identifies as female gender (finding) [facility] Start: 09-14-2022 Sexual orientation Heterosexual (finding) [facility] Start: 07-14-2023 Alcoholic beverage intake Ex-drinker (finding) [facility] Start: 01-17-2020 Alcohol Comment very rare [facility] Medical Equipment Procedure Code Equipment Code Equipment Origin al Text Equipment Identifier Dates Lens Acrysof Iq Toric 6mm +24.5 Diopter +6 Cylinder 0 D Biconvex Acrylic 13 - [id number] Start: 03-14-2019 Comment on above: Description: -0.57 Lens Acrysof Iq Toric Stableforce 6mm 0 D +22.5 Diopter +2.25 Cylinder - [id number] Start: 03-21-2019 Comment on above: Description: -0.80 Istent Inject - [id number] Start: 03-14-2019 Istent Inject - [id number] Start: 03-21-2019 Cmnt Bn Bio 40gm Rpl [id number] - Sna - [id number] Start: 02-12-2020 Ins Artc 3-5 E-F 11mm Kn Rt Ps - Sna - [id number]/ SNA, [id number] FDA Start: 02-12-2020 Cmpt Fem 5 Kn Rt Persona Strl - Sna - [id number] Start: 02-12-2020 Cmpt Ptlr 32mm Persona Alply - Sna - [id number] Start: 02-12-2020 Bsplt Tib 5d E K n Rt Stm - Sna - [id number] Start: 02-12-2020 Clinical Notes 01-04-2017 to 04-18-2024 Ck Gonzalez OD - 04/18/2024 11:06 AM BETO Grissom - 04/09/2024 2:30 PM BETO Grissom - 12/19/2023 10:15 AM Alesah Benítez MD - 10/17/2023 1:32 PM EDT Note Date & Type Note Facility 04-18-2024 Note HNO ID: [id number] Author: CK GONZALEZ OD Service: ? Author Type: RADIOGRAPHER MAMMOGRAPHER Type: Progress Notes Filed: 04/18/2024 11:22 Note [...] Gonzalez, OD April 18, 2024 11:21 AM [facility] 04-18-2024 History of Present illness Narrative Tmax: [...] 2024 11:21 AM documented in this encounter [facility] 04-09-2024 History of Present illness Narrative Images from the original note were not included. HISTORY OF PRESENT ILLNESS: EST PT Myla Pollack is an 73 y.o. @ female. (EST PT) NEW COMPLAINT, (R) SHOULDER DISCOMFORT. SYMPTOMS FOR ABOUT 2 MONTHS, NO KNOWN INJURY. XRAYS 03/08/[address] [facility] MRI, (R) SHOULDER & C-SPINE 04/02/[address] [facility] INTERMITTENT RT DIFFUSE RT SHOULDER, ARM, AND [...] Use: Not At Risk (02/27/2019) Received from [facility], [facility] AUDIT-C Frequency of Alcohol Consumption: Monthly [...] requiring urgent evaluation. documented in this encounter [facility] 12-19-2023 History of Present illness Narrative Associated [...] Use: Not At Risk (02/27/2019) Received from [facility], [facility] AUDIT-C Frequency of Alcohol Consumption: Monthly [...] requiring urgent evaluation. documented in this encounter [facility] 10-17-2023 Note HNO ID: [id number] Author: ALESHA SCHULTE MD Service: ? Author [...] components. Alesha Schulte MD October 17, 2023 [facility] 10-17-2023 History of Present illness Narrative Tmax: [...] October 17, 2023 documented in this encounter [facility] 09-05-2023 Note Date of Procedure 09/05/2023 [place] Protocol Safety Checklist Sign In: A moment [...] Post-procedure follow up management communicated. No specimens. [facility] 09-05-2023 Note HNO ID: [id number] Author: ALESHA SCHULTE MD Service: ? Author [...] components. Alesha Schulte MD September 05, 2023 [facility] 09-05-2023 History of Present illness Narrative Tmax: [...] September 05, 2023 documented in this encounter [facility] 07-27-2023 Note Date of Procedure 07/27/2023. Digital Marketing Analyst Information Student Career Development Specialist: pd. Reliability Right Eye Good. Left Eye Good. Interpretation Right Eye Normal. Left Eye Normal. [facility] 07-27-2023 Note Date of Procedure 07/27/2023. Digital Marketing Analyst Information Student Career Development Specialist: JF. Quality Right Eye Good. Left Eye Good. NFL Interpretation Right Eye Superior loss. Left Eye Normal. [facility] 07-27-2023 Note HNO ID: [id number] Author: ALESHA SCHULTE MD Service: ? Author [...] agree with all of its relevant components. [facility] 07-27-2023 History of Present illness Narrative Tmax: [...] its relevant components. documented in this encounter [facility] 07-14-2023 Evaluation + Plan note Associated Problem(s): Lymphedema Compression therapy leg elevation and follow up in the clinic in 1 year. [facility] 07-14-2023 Miscellaneous Notes Associated Problem(s): Lymphedema Compression therapy leg elevation and follow up in the clinic in 1 year. documented in this encounter [facility] 07-14-2023 History of Present illness Narrative [...] 1 tablet by mouth in the morning. xtqwgmbvxx-hnqgiydsymyni-gvjt (FIORICET, ESGIC) 50-325-40 mg per tablet Take [...] the evening. 5 mg M-W-F, 7.5 mg Lsp-Yujv-Dcppg-Sat . anastrozole (ARIMIDEX) 1 mg chemo tablet [...] hematuria Asthma COPD (chronic obstructive pulmonary disease) ([facility]) Headache Hyperlipidemia Osteoarthritis right knee Pulmonary embolism ([facility]) Thrush top partial Vasculitis ([facility]) Visual impairment readers Past Surgical History: Past [...] Performed by Todd Boudreaux Jr., DO at [facility] Social and Family History: Social History Socioeconomic [...] Lynsey Saldana MD, TREVIN, RPVI, FSVS, FACS [facility] [facility] This note was created with the assistance of a speech recognition program. While intending to generate a timely document that accurately reflects the content of the visit, no guarantee can be provided that every grammatical or spelling mistake has been or will be identified or corrected. Thank you for your understanding. documented in this encounter [facility] 01-17-2023 History of Present illness Narrative [...] its relevant components. documented in this encounter [facility] 07-05-2022 History of Present illness Narrative [...] its relevant components. documented in this encounter [facility] 03-19-2022 Note PROCEDURE: XR WRIST RT MIN 3 V HISTORY: Unspecified fall ; acute right wrist pain after falling COMPARISON: None. FINDINGS: BONES:No fracture, acute abnormality, or significant arthropathy. SOFT TISSUES:No visible soft tissue swelling. EFFUSION:None visible. OTHER: Negative. IMPRESSION: 1. No acute bone abnormality. 2. Multifocal mild degenerative changes. Electronically authenticated by: ADIEL MCCONNELL Date: 2022-03-19 10:26 [facility] 03-11-2022 Miscellaneous Notes *SECOND ATTEMT* Called patient and LVM for her to call back and schedule an appt with for glaucoma suspect. Referral from Dr. Sebastian. Called patient and LVM to schedule an appointment with Dr. Schulte for GLC suspect. documented in this encounter [facility] 01-21-2022 Progress note Note Date/Time January 21, 2022 10:15[facility] [place] [address] Hem/Onc Follow Up Note - OP Signed Patient: Myla Pollack MR#: [id number] : 1950 Acct:[id number] Age/Sex: 71 / F Type: REG RCR [...] of anastrozole, we will now follow annually ([facility] but patient wishes to return to oncology). We will arrange her annual follow-ups after her annual mammograms in January of each year. She also requested refill of breast prosthesis and mastectomy bra. No breast exam due to telephone visit. No skin changes or breast tenderness. No recent f/u by labor/excavator in [place]--was reported to have vasculitis 4 years ago--now [...] HER-2 nonamplified. She underwent right mastectomy at [facility] [place] in 02/2015. Completed dose dense AC X4 [...] years of adjuvant therapy. 3. Evaluated by labor/excavator in [place] (does not believe she had vasculitis)--no recent [...] inflammatory. She was referred to pulmonary at [facility] [place]. Ground glass opacities resolved on PET/CT 08/2017. [...] of Therapies: 1. Right breast mastectomy at [facility] (Dr. Rodriguez) in 02/2015. 2. Completed dose [...] HER-2 nonamplified. 2. She underwent mastectomy at [facility] in 02/2015. Completed dose dense AC X4 and Taxol X 12 in August 2015. 3. 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 Anastrozole was resumed in 03/2017 4. Saw labor/excavator in [place] for persistent leg pain and swelling (he [...] inflammatory. She was referred to pulmonary at [facility]. --Followup PET/CT 08/2017 showed resolution of prior [...] for coordination of care (as documented) and kpkm-oy-whxl counseling of patient and/or family. Dictated By: Claire Duran APRN DD/ 1014 Signed By: <Electronically signed by CHIDI Duran> 01/21/22 1041 [facility] Work Phone: 1(197) 763-867510-20-2021 Progress note Author Kacie Garay [facility] January 21, 2021 8:25pm Note Date/Time January 21, 2021 1 0:34am [facility] [place] [address] Hem/Onc Follow Up Note - OP Signed Patient: Myla Pollack MR#: [id number] : 1950 Acct:[id number] Age/Sex: 70 / F Type: REG RCR [...] normal on AI therapy. 07/21/2020: Video visit ([email or web address]) for 4-month follow-up and review of her [...] of anastrozole, we will now follow annually ([facility] but patient wishes to return to oncology). We will arrange her annual follow-ups after her annual mammograms in January of each year. She also requested refill of breast prosthesis and mastectomy bra. No breast exam due to telephone visit. No skin changes or breast tenderness. No recent f/u by labor/excavator in [place]--was reported to have vasculitis 4 years ago--now [...] HER-2 nonamplified. She underwent right mastectomy at [facility] [place] in 02/2015. Completed dose dense AC X4 [...] years of adjuvant therapy. 3. Evaluated by labor/excavator in [place] (does not believe she had vasculitis)--no recent [...] inflammatory. She was referred to pulmonary at [facility] [place]. Ground glass opacities resolved on PET/CT 08/2017. [...] of Therapies: 1. Underwent right mastectomy at [facility] in 02/2015. 2. Completed dose dense AC [...] HER-2 nonamplified. 2. She underwent mastectomy at [facility] in 02/2015. Completed dose dense AC X4 and Taxol X 12 in August 2015. 3. 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 Anastrozole was resumed in 03/2017 4. Saw labor/excavator in [place] for persistent leg pain and swelling (he [...] inflammatory. She was referred to pulmonary at [place]. --Followup PET/CT 08/2017 showed resolution of prior [...] for coordination of care (as documented) and yewe-ls-lnau counseling of patient and/or family. Dictated By: Kacie Garay MD DD/ 1034 Signed By: <Electronically signed by MD Kacie Garay> 01/21/212024 [facility] Work Phone: 1(114) 532-815104-19-2021 Progress note Author Kacie Garay [facility] July 21, 2020 11:38am Note Date/Time July 21, 2020 9:[address] [facility] [address] [address] Hem/Onc Follow Up Note - OP Signed Patient: Myla Pollack MR#: [id number] : 1950 Acct:[id number] Age/Sex: 70 / F Type: REG RCR Copies to: Kenyetta Reynolds MD~ Subjective Date/Time of Service: Date of Service: 07/21/2020 Time of Service: 09:36 Chief Complaint: Patient has consented to doxy visit for 4 month follow up visitfor breast cancer and to review bone densitometry test. HPI: Patient had video visit ([email or web address]) today for 4-month follow-up and review of [...] of anastrozole, we will now follow annually ([facility] but patient wishes to return to oncology). We will arrange her annual follow-ups after her annual mammograms in January of each year. She also requested refill of breast prosthesis and mastectomy bra. No breast exam due to telephone visit. No skin changes or breast tenderness. No recent f/u by labor/excavator in [place]--was reported to have vasculitis 4 years ago--now [...] HER-2 nonamplified. She underwent right mastectomy at [facility] in 02/2015. Completed dose dense AC X4 [...] years of adjuvant therapy. 3. Evaluated by labor/excavator in [place] (does not believe she had vasculitis)--no recent [...] inflammatory. She was referred to pulmonary at [facility] [place]. Ground glass opacities resolved on PET/CT 08/2017. [...] of Therapies: 1. Underwent right mastectomy at [facility] in 02/2015. 2. Completed dose dense AC [...] HER-2 nonamplified. 2. She underwent mastectomy at [facility] in 02/2015. Completed dose dense AC X4 and Taxol X 12 in August 2015. 3. 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 Anastrozole was resumed in 03/2017 4. Saw labor/excavator in [place] for persistent leg pain and swelling (he [...] inflammatory. She was referred to pulmonary at [facility]. --Followup PET/CT 08/2017 showed resolution of prior [...] for coordination of care (as documented) and ecwj-wv-xwou counseling of patient and/or family. Dictated By: Kacie Garay MD DD/ 0936 Signed By: <Electronically signed by MD Kacie Garay> 07/21/20 9198 [facility] Work Phone: 1(194) 584-904412-09-2020 Progress note Author Kacie Garay [facility] March 12, 2020 2:49pm Note Date/Time March 12, 2020 9 :56am [facility] [place] [address] Hem/Onc Follow Up Note - OP Signed Patient: Myla Pollack MR#: [id number] : 1950 Acct:[id number] Age/Sex: 69 / F Type: REG RCR [...] or breast tenderness. No recent f/u by labor/excavator in [place]--was reported to have vasculitis 4 years ago--now [...] HER-2 nonamplified. She underwent right mastectomy at [facility] in 02/2015. Completed dose dense AC X4 [...] of extended adjuvant therapy. 3. Evaluated by labor/excavator in [place] (does not believe she had vasculitis)--no recent [...] inflammatory. She was referred to pulmonary at [facility] [place]. Ground glass opacities resolved on PET/CT 08/2017. [...] of Therapies: 1. Underwent right mastectomy at [facility] [place] in 02/2015. 2. Completed dose dense AC [...] HER-2 nonamplified. 2. She underwent mastectomy at [facility] in 02/2015. Completed dose dense AC X4 and Taxol X 12 in August 2015. 3. 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 Anastrozole was resumed in 03/2017 4. Saw labor/excavator in [place] for persistent leg pain and swelling (he [...] inflammatory. She was referred to pulmonary at [facility] [place]. --Followup PET/CT 08/2017 showed resolution of prior [...] for coordination of care (as documented) and zpxl-ux-ywaq counseling of patient and/or family. Dictated By: Kacie Garay MD DD/ [id number] Signed By: <Electronically signed by MD Kacie Garay> 03/12/20 6944 [facility] Work Phone: 1(272) 782-100106-03-2020 Progress note Author Kacie Garay [facility] September 05, 2019 1:07pm Note Date/Time September 05, 2019 10:[address] [facility] [place] [address] Hem/Onc Follow Up Note - OP Signed Patient: Myla Pollack MR#: [id number] : 1950 Acct:[id number] Age/Sex: 69 / F Type: REG RCR [...] or breast tenderness. No recent f/u by labor/excavator in [place]--was reported to have vasculitis 3 years ago--now [...] HER-2 nonamplified. She underwent right mastectomy at [facility] in 02/2015. Completed dose dense AC X4 and Taxol X 12 in August 2015. 2. Anastrozole with calcium and vitamin D started in August 2015. Calcium and vitamin D discontinued 07/2016 Anastrozole stopped in 01/2017 when she developed vasculitis (erythematous rash over legs) although no proven association at this time. Anastrozole was resumed in 03/2017 3. Evaluated by labor/excavator in [place] (does not believe she had vasculitis)--no recent [...] inflammatory. She was referred to pulmonary at [facility] [place]. Ground glass opacities resolved on PET/CT 08/2017. [...] of Therapies: 1. Underwent right mastectomy at [facility] in 02/2015. 2. Completed dose dense AC [...] HER-2 nonamplified. 2. She underwent mastectomy at [facility] in 02/2015. Completed dose dense AC X4 and Taxol X 12 in August 2015. 3. 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 Anastrozole was resumed in 03/2017 4. Saw labor/excavator in [place] for persistent leg pain and swelling (he [...] inflammatory. She was referred to pulmonary at [facility] [place]. --Followup PET/CT 08/2017 showed resolution of prior [...] vasculitis but per second opinion from a labor/excavator and director television news in [place] this is not vasculitis. They told her [...] for coordination of care (as documented) and dajc-og-lton counseling of patient and/or family. Dictated By: Kacie Garay MD DD/ 1056 Signed By: <Electronically signed by MD Kacie Garay> 09/05/19 1304 [facility] Work Phone: 1(429) 588-165911-21-2019 History of Past illness Narrative* Problem Noted Date Resolved Date Combined forms of age-related cataract of both e yes 02/22/2019 03/21/2019 documented as of this encounter (statuses as of 03/11/2022) [facility]11-21-2019 History of Past illness Narrative* Problem Noted Date Resolved Date Combined forms of age-related cataract of both e yes 02/22/2019 03/21/2019 documented as of this encounter (statuses as of 07/05/2022) [facility]2019 History of Past illness Narrative* Problem Noted Date Diagnosed Date Resolved Date Combined forms of age-relate d cataract of both eyes 02/22/2019 03/21/2019 documented as of this encounter (statuses as of 01/17/2023) [facility]2019 Progress note Author Kacie Garay [facility] January 22, 2019 9:28pm Note Date/Time January 22, 2019 1 0:40am [facility] [place] [id number] Hem/Onc Follow Up Note - OP Signed Patient: Myla Pollack MR#: [id number] : 1950 Acct:[id number] Age/Sex: 68 / F Type: REG RCR [...] or breast tenderness. [facility] [place] reported to have vasculitis 2 1/2 years [...] HER-2 nonamplified. She underwent right mastectomy at [facility] in 02/2015. Completed dose dense AC X4 and Taxol X 12 in August 2015. 2. Anastrozole with calcium and vitamin D started in August 2015. Calcium and vitamin D discontinued 07/2016 Anastrozole stopped in 01/2017 when she developed vasculitis (erythematous rash over legs) although no proven association at this time. Anastrozole was resumed in 03/2017 3. Evaluated by labor/excavator in [place] (does not believe she had vasculitis)--no recent [...] inflammatory. She was referred to pulmonary at [facility] [place]. Ground glass opacities resolved on PET/CT 08/2017. [...] of Therapies: 1. Underwent right mastectomy at [facility] in 02/2015. 2. Completed dose dense AC [...] HER-2 nonamplified. 2. She underwent mastectomy at [facility] in 02/2015. Completed dose dense AC X4 and Taxol X 12 in August 2015. 3. 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 Anastrozole was resumed in 03/2017 4. Saw labor/excavator in [place] for persistent leg pain and swelling (he [...] inflammatory. She was referred to pulmonary at [facility] [place]. --Followup PET/CT 08/2017 showed resolution of prior [...] vasculitis but per second opinion from a labor/excavator and director television news in [place] this is not vasculitis. They told her [...] for coordination of care (as documented) and qyny-tm-mbuq counseling of patient and/or family. Dictated By: Kacie Garay MD DD/ 1039 Signed By: <Electronically signed by MD Kacie Garay> 01/22/19 5021 [facility] Work Phone: 1([phone]) 206-843704-17-2019 Progress note Author Kacie Garay [facility] July 19, 2018 8:36pm Note Date/Time July 19, 2018 10: 48am [facility] [place] [address] Hem/Onc Follow Up Note - OP Signed Patient: Myla Pollack MR#: [id number] : 1950 Acct:[id number] Age/Sex: 68 / F Type: REG RCR [...] HER-2 nonamplified. She underwent right mastectomy at [facility] in 02/2015. Completed dose dense AC X4 and Taxol X 12 in August 2015. 2. Anastrazole with calcium and vitamin D started in August 2015, Calcium and vitamin D discontinued 07/2016 Anastrozole stopped in 01/2017 when she developed vasculitis (erythematous rash over legs) although no proven association at this time. Anastrozole was resumed in 03/2017 3. Evaluated by labor/excavator in [place] (does not believe she had vasculitis)--no recent [...] inflammatory. She was referred to pulmonary at [facility] [place]. Ground glass opacities resolved on PET/CT 08/2017. [...] or breast tenderness. No recent f/u by labor/excavator [place]--was reported to have vasculitis 2 years ago--now resolved. Receives Anastrozole due to weak VT expression--no significant myalgias/arthralgias or hot flashes. No bowel or bladder complaints. No interval changes in medical history. We reviewed DEXA scan showing normal bone density 07/17/2018. - Summary of Therapies Summary of Therapies: 1. Underwent right mastectomy at [facility] in 02/2015. 2. Completed dose dense AC [...] scan 07/17/2018 reviewed--normal. Annual bilateral mammography at [facility] 01/2018--ordered 6 month f/u mammogram prior to next f/u. Assessment and Plan (1) Breast cancer, right Qualifiers: Estrogen receptor status: negative Patient sex: female 1. 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 ER negative, VT weak, and HER-2 nonamplified. 2. She underwent mastectomy at [facility] in 02/2015. Completed dose dense AC X4 and Taxol X 12 in August 2015. 3. Anastrazole with calcium and vitamin D started in August 2015, Calcium and vitamin D discontinued 07/2016 Anastrozole stopped in 01/2017 when she developed vasculitis although there is no proven association at this time. Anastrozole was resumed in 03/2017 4. Seeing labor/excavator in [place] for persistent leg pain and swelling (he [...] inflammatory. She was referred to pulmonary at [facility]. --Followup PET/CT 08/2017 showed resolution of prior [...] unless new symptoms arise. Annual mammogram at [facility] prior to next followup. DEXA normal--f/u in [...] vasculitis but per second opinion from a labor/excavator and director television news in [place] this is not vasculitis. They told her [...] for coordination of care (as documented) and exgd-ju-qnzw counseling of patient and/or family. Dictated By: Kacie Garay MD DD/ 1040 Signed By: <Electronically signed by MD Kacie Garay> 07/19/18 2035 [facility] Work Phone: 1([phone] Progress note Author Kacie Garay [facility] January 18, 2018 8:17pm Note Date/Time January 17, 2018 3 :44pm [facility] at [address] [address] Hem/Onc Follow Up Note - OP Signed Patient: Myla Pollack MR#: [id number] : 1950 Acct:[id number] Age/Sex: 67 / F Type: REG RCR [...] HER-2 nonamplified. She underwent right mastectomy at [facility] in 02/2015. Completed dose dense AC X4 and Taxol X 12 in August 2015. 2. Anastrazole with calcium and vitamin D started in August 2015, Calcium and vitamin D discontinued 07/2016 Anastrazole stopped in 01/2017 when she developed vasculitis although thereis no proven association at this time. Anastrozole was resumed in 03/2017 3. Now follows with rhematologist in [place] (does not believe she had vasculitis). 4. [...] inflammatory. She was referred to pulmonary at [facility]. Ground glass opacities resolved on PET/CT 08/2017. 5. A focus of increased uptake in the liver of uncertain significance was also identified. On MRI of the liver there was no abnormality found. HPI: Patient returns to the clinic for transfer of care from Dr. Steiner. No changes on self breast exam. No skin changes or breast tenderness. She is seeing a labor/excavator in [place]--was reported to have vasculitis of legs about a yearago. Receives Anastrozole due to weak VT expression--no significant myalgias/arthralgias or hot flashes. No bowel or bladder complaints. - Summary of Therapies Summary of Therapies: 1. Underwent right mastectomy at [facility] in 02/2015. 2. Completed dose dense AC [...] % (Auto) 27.4 % (.) 01/03/17 17:45 O'Brien % (Auto) 12.7 % (.) 01/03/17 17:45 Eos % (Auto) 1.5 % (.) 01/03/17 17:45 Baso % (Auto) 0.6 % (.) 01/03/17 17:45 Neut # (Auto) 4.4 x10E3/uL (1.8-7.7) 01/03/17 17:45 Lymph # (Auto) 2.1 x10E3/uL (1.00-4.8) 01/03/17 17:45 O'Brien # (Auto) 1.0 x10E3/uL (0.0-0.8) H 01/03/17 [...] where applicable. 01/11/2018--left diagnostic mammogram reviewed from [facility] Left breast stable with scattered benign appearing [...] HER-2 nonamplified. 2. She underwent mastectomy at [facility] in 02/2015. Completed dose dense AC X4 and Taxol X 12 in August 2015. 3. Anastrazole with calcium and vitamin D started in August 2015, Calcium and vitamin D discontinued 07/2016 Anastrazole stopped in 01/2017 when she developed vasculitis although there is no proven association at this time. Anastrozole was resumed in 03/2017 4. Seeing labor/excavator in [place] for persistent leg pain and swelling (he [...] inflammatory. She was referred to pulmonary at [facility]. Followup PET/CT 08/2017 showed resolution of prior [...] vasculitis but per second opinion from a labor/excavator and director television news in [place] this is not vasculitis. They told her [...] for coordination of care (as documented) and lhyw-kx-srtn counseling of patient and/or family. 25 - 35 minutes Dictated By: Kacie Garay MD DD/ 1543 Signed By: <Electronically signed by Kacie Garay MD> 01/18/182016 [facility] Work Phone: 1([phone]) 185-384305-17-2018 Progress note Author Mohsen Steiner [facility] August 18, 2017 3:25pm Note Date/Time August 18, 2017 3:23p m [facility] at [place] [id number] Hem/Onc Follow Up Note - OP Signed Patient: Myla Pollack MR#: [id number] : 1950 Acct:[id number] Age/Sex: 67 / F Type: REG RCR [...] % (Auto) 27.4 % (.) 01/03/17 17:45 O'Brien % (Auto) 12.7 % (.) 01/03/17 17:45 Eos % (Auto) 1.5 % (.) 01/03/17 17:45 Baso % (Auto) 0.6 % (.) 01/03/17 17:45 Neut # (Auto) 4.4 x10E3/uL (1.8-7.7) 01/03/17 17:45 Lymph # (Auto) 2.1 x10E3/uL (1.00-4.8) 01/03/17 17:45 O'Brien # (Auto) 1.0 x10E3/uL (0.0-0.8) H 01/03/17 [...] HER-2 nonamplified. 3. She underwent mastectomy at [place] in 02/2015. Completed dose dense AC X4 [...] inflammatory. She was referred to pulmonary at [place] 8. A focus of increased uptake in [...] vasculitis but per second opinion from a labor/excavator and director television news in [place] this is not vasculitis. They told her it was skin pigmentation from prior infection. However her port wine stain tends to adnry with deep touch and we do not [...] for coordination of care (as documented) and lonb-wj-zhsy counseling of patient and/or family. Dictated By: Mohsen Steiner MD DD/ 151 Signed By: <Electronically signed by Mohsen Steiner MD> 08/18/17 1525 [facility] Work Phone: [phone] 241-746704-19-2018 Progress note Author Mohsen Steiner [facility] July 21, 2017 3:44pm Note Date/Time July 21, 2017 3:[address] [facility] [place] [address] Hem/Onc Follow Up Note - OP Signed Patient: Myla Pollack MR#: [id number] : 1950 Acct:[id number] Age/Sex: 67 / F Type: REG RCR Copies to: Pinky Og DO~ Subjective Date/Time of Service: Date of Service: 07/21/2017 Time of Service: 15:39 Chief Complaint: Patient here for four month follow up appointment with labs. HPI: Patient returns to the clinic for a pre-scheduled follow-up visit that reports that 1. She saw a director television news and labor/excavator in [place]. They do not think that she has [...] % (Auto) 27.4 % (.) 01/03/17 17:45 O'Brien % (Auto) 12.7 % (.) 01/03/17 17:45 Eos % (Auto) 1.5 % (.) 01/03/17 17:45 Baso % (Auto) 0.6 % (.) 01/03/17 17:45 Neut # (Auto) 4.4 x10E3/uL (1.8-7.7) 01/03/17 17:45 Lymph # (Auto) 2.1 x10E3/uL (1.00-4.8) 01/03/17 17:45 O'Brien # (Auto) 1.0 x10E3/uL (0.0-0.8) H 01/03/17 [...] HER-2 nonamplified. 3. She underwent mastectomy at [place] in 02/2015. Completed dose dense AC X4 [...] inflammatory. She was referred to pulmonary at [place] 8. A focus of increased uptake in [...] vasculitis but per second opinion from a labor/excavator and director television news in [place] this is not vasculitis. They told her [...] for coordination of care (as documented) and orqq-hz-cioi counseling of patient and/or family. Dictated By: Mohsen Steiner MD DD/ 1539 Signed By: <Electronically signed by Mohsen Steiner MD> 07/21/17 1549 [facility] Work Phone: 1([phone] 945-117612-22-2017 Progress note Author Mohsen Steiner [facility] March 25, 2017 11:28am Note Date/Time March 25, 2017 11:27am [facility] [place] [address] Hem/Onc Follow Up Note - OP Signed Patient: Myla Pollack MR#: [id number] : 1950 Acct:[id number] Age/Sex: 66 / F Type: REG RCR Copies to: Pinky Og DO~ Subjective Date/Time of Service: Date of Service: 03/25/2017 Time of Service: 11:25 Chief Complaint: Patient is here to review MRI report and to follow up after seeing the plastic sheets finishing supervisor. HPI: Patient returns to the clinic for a pre-scheduled follow-up visit that reports that 1. She was seen at [facility] rheumatology, and from there she was referred to a director television news in [place]. No final diagnosis has yet been made. 2. She had an MRI of the liver 3. She was seen by pulmonary in [facility] Details: All systems reviewed & no additional [...] % (Auto) 27.4 % (.) 01/03/17 17:45 O'Brien % (Auto) 12.7 % (.) 01/03/17 17:45 Eos % (Auto) 1.5 % (.) 01/03/17 17:45 Baso % (Auto) 0.6 % (.) 01/03/17 17:45 Neut # (Auto) 4.4 x10E3/uL (1.8-7.7) 01/03/17 17:45 Lymph # (Auto) 2.1 x10E3/uL (1.00-4.8) 01/03/17 17:45 O'Brien # (Auto) 1.0 x10E3/uL (0.0-0.8) H 01/03/17 [...] HER-2 nonamplified. 3. She underwent mastectomy at [facility] in 02/2015. Completed dose dense AC X4 [...] pulmonary (by her preference to a new plastic sheets finishing supervisor at [facility]) 8. A focus of increased uptake in the liver of quasi-significance was also identified. On MRI of the liver there was no abnormality found (2) Pulmonary embolism Status: Chronic She is currently on warfarin (3) Vasculitis Status: Acute She is being seen by rheumatology at [facility]. (4) Lung nodules Status: Resolved Her most [...] for coordination of care (as documented) and euow-ik-smuz counseling of patient and/or family. Dictated By: Mohsen Steiner MD DD/ 1125 Signed By: <Electronically signed by Mohsen Steiner MD> 03/25/17 1128 [facility] Work Phone: [phone] Progress note Author Mohsen Steiner [facility] March 16, 2017 3:11pm Note Date/Time March 16, 2017 2:57pm [facility] [place] [address] Hem/Onc Follow Up Note - OP Signed Patient: Myla Pollack MR#: [id number] : 1950 Acct:[id number] Age/Sex: 66 / F Type: REG RCR Copies to: Pinky Og DO~ Subjective Date/Time of Service: Date of Service: 03/16/2017 Time of Service: 14:55 Chief Complaint: Patient is here for review of [employer] reports. HPI: Patient returns to the clinic for a pre-scheduled follow-up visit that reports that 1. She was seen at [facility] rheumatology, and from there she was referred to a director television news in [place]. No final diagnosis has yet been made [...] % (Auto) 27.4 % (.) 01/03/17 17:45 O'Brien % (Auto) 12.7 % (.) 01/03/17 17:45 Eos % (Auto) 1.5 % (.) 01/03/17 17:45 Baso % (Auto) 0.6 % (.) 01/03/17 17:45 Neut # (Auto) 4.4 x10E3/uL (1.8-7.7) 01/03/17 17:45 Lymph # (Auto) 2.1 x10E3/uL (1.00-4.8) 01/03/17 17:45 O'Brien # (Auto) 1.0 x10E3/uL (0.0-0.8) H 01/03/17 [...] HER-2 nonamplified. 3. She underwent mastectomy at [facility] in 02/2015. Completed dose dense AC X4 [...] pulmonary (by her preference to a new plastic sheets finishing supervisor at [facility]) 8. A focus of increased uptake in the liver of quasi-significance was also identified. MRI of the liver has been requested (2) Pulmonary embolism Status: Chronic She is currently on warfarin (3) Vasculitis Status: Acute She was seen by rheumatology at [facility]. (4) Lung nodules Status: Acute Her most [...] for coordination of care (as documented) and pila-zr-ekgc counseling of patient and/or family. Dictated By: Mohsen Steiner MD DD/ 1455 Signed By: <Electronically signed by Mohsen Steiner MD> 03/16/17 3359 [facility] Work Phone: [phone] Progress note Author Mohsen Steiner [facility] February 28, 2017 2:51pm Note Date/Time February 28, 2017 2:29pm [facility] [place] [address] Hem/Onc Follow Up Note - OP Signed Patient: Myla Pollack MR#: [id number] : 1950 Acct:[id number] Age/Sex: 66 / F Type: REG RCR Copies to: Pinky Og DO~ Subjective Date/Time of Service: Date of Service: 02/28/2017 Time of Service: 14:26 Chief Complaint: Patient here to follow up after rheumatology referral. HPI: Patient returns to the clinic for a pre-scheduled follow-up visit that reports that 1. She was seen at [facility] rheumatology ROS Details: All systems reviewed & [...] % (Auto) 27.4 % (.) 01/03/17 17:45 O'Brien % (Auto) 12.7 % (.) 01/03/17 17:45 Eos % (Auto) 1.5 % (.) 01/03/17 17:45 Baso % (Auto) 0.6 % (.) 01/03/17 17:45 Neut # (Auto) 4.4 x10E3/uL (1.8-7.7) 01/03/17 17:45 Lymph # (Auto) 2.1 x10E3/uL (1.00-4.8) 01/03/17 17:45 O'Brien # (Auto) 1.0 x10E3/uL (0.0-0.8) H 01/03/17 [...] HER-2 nonamplified. 3. She underwent mastectomy at [place] in 02/2015. Completed dose dense AC X4 [...] Acute She was seen by rheumatology at [facility]. The ordered some initial workup that was [...] for coordination of care (as documented) and djxi-de-fzpf counseling of patient and/or family. Dictated By: Mohsen Steiner MD DD/ 1426 Signed By: <Electronically signed by Mohsen Steiner MD> 02/28/17 1451 [facility] Work Phone: 1(120) 342-742811-02-2017 Progress note Author Mohsen Steiner [facility] February 03, 2017 9:03am Note Date/Time February 03, 2017 9 :01am [facility] [place] [id number] Hem/Onc Follow Up Note - OP Signed Patient: Myla Pollack MR#: [id number] : 1950 Acct:[id number] Age/Sex: 66 / F Type: REG RCR Copies to: Pinky Og DO~ Subjective Date/Time of Service: Date of Service: 02/03/2017 Time of Service: 08:58 Chief Complaint: Patient here to follow up after EGD and EUS. HPI: Patient returns to the clinic for a pre-scheduled follow-up visit that reports that 1. She had an EUS at [facility] by Dr. Tara Hess and no significant [...] % (Auto) 27.4 % (.) 01/03/17 17:45 O'Brien % (Auto) 12.7 % (.) 01/03/17 17:45 Eos % (Auto) 1.5 % (.) 01/03/17 17:45 Baso % (Auto) 0.6 % (.) 01/03/17 17:45 Neut # (Auto) 4.4 x10E3/uL (1.8-7.7) 01/03/17 17:45 Lymph # (Auto) 2.1 x10E3/uL (1.00-4.8) 01/03/17 17:45 O'Brien # (Auto) 1.0 x10E3/uL (0.0-0.8) H 01/03/17 [...] HER-2 nonamplified. 3. She underwent mastectomy at [facility] in 02/2015. Completed dose dense AC X4 [...] Status: Acute She was referred to the [facility] but her appointment is in April [...] for coordination of care (as documented) and zdti-th-ulcf counseling of patient and/or family. Dictated By: Mohsen Steiner MD DD/ 0858 Signed By: <Electronically signed by Mohsen Steiner MD> 02/03/17 0903 [facility] Work Phone: 1([phone] Progress note Author Mohsen Steiner [facility] January 12, 2017 10:59pm Note Date/Time January 12, 2017 1 0:57pm [facility] [place] [address] Hem/Onc Follow Up Note - OP Signed Patient: Myla Pollack MR#: [id number] : 1950 Acct:[id number] Age/Sex: 66 / F Type: REG RCR Copies to: Pinky Og DO~ Subjective Date/Time of Service: Date of Service: 01/12/2017 Time of Service: 22:52 Chief Complaint: Patient is here to follow up PET scan results. HPI: Patient returns to the clinic for a pre-scheduled follow-up visit that reports that 1. She was diagnosed with vasculitis at [facility] 2. She was found to have pulmonary [...] % (Auto) 27.4 % (.) 01/03/17 17:45 O'Brien % (Auto) 12.7 % (.) 01/03/17 17:45 Eos % (Auto) 1.5 % (.) 01/03/17 17:45 Baso % (Auto) 0.6 % (.) 01/03/17 17:45 Neut # (Auto) 4.4 x10E3/uL (1.8-7.7) 01/03/17 17:45 Lymph # (Auto) 2.1 x10E3/uL (1.00-4.8) 01/03/17 17:45 O'Brien # (Auto) 1.0 x10E3/uL (0.0-0.8) H 01/03/17 [...] HER-2 nonamplified. 3. She underwent mastectomy at [place] in 02/2015. Completed dose dense AC X4 [...] We will be referring her to the [facility] for evaluation and management. (4) Lung [...] for coordination of care (as documented) and cpoc-la-wpwy counseling of patient and/or family. Dictated By: Mohsen Steiner MD DD/ 51 Signed By: <Electronically signed by Mohsen Steiner MD> 01/12/172258 [facility] Work Phone: 1([phone]) 300-119010-04-2017 Progress note Author Mohsen Steiner [facility] January 05, 2017 4:45pm Note Date/Time January 05, 2017 4: 38pm [facility] [place] [address] Hem/Onc Follow Up Note - OP Signed Patient: Myla Pollack MR#: [id number] : 1950 Acct:[id number] Age/Sex: 66 / F Type: REG RCR cc: Pinky Og DO~ Subjective Date/Time of Service: Date of Service: 01/05/2017 Time of Service: 16:37 Chief Complaint: Patient is here for follow up to CT scan patient has been having ongoing vascular problems. HPI: Patient returns to the clinic for a pre-scheduled follow-up visit that reports that 1. She was diagnosed with vasculitis at [facility] 2. She was found to have pulmonary [...] % (Auto) 27.4 % (.) 01/03/17 17:45 O'Brien % (Auto) 12.7 % (.) 01/03/17 17:45 Eos % (Auto) 1.5 % (.) 01/03/17 17:45 Baso % (Auto) 0.6 % (.) 01/03/17 17:45 Neut # (Auto) 4.4 x10E3/uL (1.8-7.7) 01/03/17 17:45 Lymph # (Auto) 2.1 x10E3/uL (1.00-4.8) 01/03/17 17:45 O'Brien # (Auto) 1.0 x10E3/uL (0.0-0.8) H 01/03/17 [...] HER-2 nonamplified. 3. She underwent mastectomy at [place] in 02/2015. Completed dose dense AC X4 [...] that in November, she was admitted at [facility] and was diagnosed with vasculitis affecting the [...] for coordination of care (as documented) and jnqb-xr-sich counseling of patient and/or family. Dictated By: Mohsen Steiner MD DD/ 1637 Signed By: <Electronically signed by Mohsen Steiner MD> 01/05/17 1642 [facility] Work Phone: 1([phone]) [phone] Progress note Author Jefferson Rice [facility] January 04, 2017 11:22am Note Date/Time January 04, 2017 11 :22am [facility] [place] [address] Hem/Onc Follow Up Note - OP Signed Patient: Myla Pollack MR#: [id number] : 1950 Acct:[id number] Age/Sex: 66 / F Type: REG RCR [...] for coordination of care (as documented) and vvdw-sa-frpl counseling of patient and/or family. Dictated By: Jefferson Rice MD DD/ 1120 Signed By: <Electronically signed by Jefferson Rice MD> 01/04/17 1124 [facility] Work Phone: Evaluation note* Diagnosis Onset Date Resolution Status Breast cancer, right chronic Encounter for monitoring anastrozole therapy chronic Osteoarthritis of knees, bilateral chronic Pulmonary embolism chronic Screening for osteoporosis c hronic Cutaneous leukocytoclastic angiitis resolved History of hypercalcemia res olved Hypercalcemia resolved Lung nodules resolved Neuropathy resolved Vasculitis resolved [facility] Work Phone: evaluation note* Diagnosis Primary open-angle glaucoma, bilateral, mild stage- Primary [facility] Diagnosis Primary open-angle glaucoma, bilateral, mild stage- Primary [facility] Diagnosis Primary open-angle glaucoma, bilateral, mild stage- Primary [facility] Diagnosis Primary open-angle glaucoma, bilateral, mild stage- Primary [facility] Diagnosis Onset Date Resolution Status Breast cancer, right chronic Screening for osteoporosis c hronic Neuropathy resolved Breast cancer, right chronic Encounter for monitoring anastrozole therapy chronic Osteoarthritis of knees, bilateral chronic Pulmonary embolism chronic Screening for osteoporosis c hronic Cutaneous leukocytoclastic angiitis resolved History of hypercalcemia res olved Hypercalcemia resolved Lung nodules resolved Neuropathy resolved Vasculitis resolved [facility] Work Phone: evaluation note* Diagnosis Acute right hip pain- Primary Trochanteric bursitis of right hip Gluteal tendonitis of right buttock documented in this encounter [facility]* Diagnosis Acute pain of right shoulder- Primary Neck pain Cervicalgia documented in this encounter [facility] note* Diagnosis Primary open-angle glaucoma, bilateral, mild stage- Primary PCO (posterior capsular opacification), bilateral After-cataract, unspecified Dry eye syndrome of bilateral lacrimal glands Tear film insufficiency, unspecified [facility]* Diagnosis Lymphedema- Primary Other noninfectious lymphedema [facility] filed[facility] Author Lynsey Land [facility] January 30, 2024 11:05am Note Date/Time January 30, 2024 1 0:16am [facility] [place] [address] Cancer Center Note Signed Patient: Myla Pollack MR#: [id number] : 1950 Acct:[id number] Age/Sex: 73 / F Type: DEP AMB [...] HER-2 nonamplified. 2. She underwent mastectomy at [place] in 02/2015. Completed dose dense AC X4 and Taxol X 12 in August 2015. 3. 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 Anastrozole was resumed in 03/2017 4. Saw labor/excavator in [place] for persistent leg pain and swelling (he [...] inflammatory. She was referred to pulmonary at [place]. --Followup PET/CT 08/2017 showed resolution of prior [...] changes on self breast exam. Screening left /19/2023 without recurrence. No systemic symptoms of recurrence, [...] of anastrozole, we will now follow annually ([facility] but patient wishes to return to oncology). We will arrange her annual follow-ups after her annual mammograms in January of each year. She also requested refill of breast prosthesis and mastectomy bra. No breast exam due to telephone visit. No skin changes or breast tenderness. No recent f/u by labor/excavator in [place]--was reported to have vasculitis 4 years ago--now [...] HER-2 nonamplified. She underwent right mastectomy at [place] in 02/2015. Completed dose dense AC X4 [...] years of adjuvant therapy. 3. Evaluated by labor/excavator in [place] (does not believe she had vasculitis)--no recent [...] inflammatory. She was referred to pulmonary at [place]. Ground glass opacities resolved on PET/CT 08/2017. [...] of Therapies: 1. Right breast mastectomy at [facility] (Dr. Rodriguez) in 02/2015. 2. Completed dose [...] hx: breast cancer and go over mamogram. [facility] Social History Social History (Updated 01/30/24 @ 10:21 by Lora Huffman [facility]) Smoking status: Never smoker Within the past [...] <Electronically signed by CHIDI Land> 01/30/24 1105 [facility] Work Phone: Summary Purpose Family History No [...] the event of a Fluress shortage, administer Sherry-Fluor 1 drop into both eyes as directed for applanation tonometry Given 01/17/2023 8:30 AM EDT 1 Drop Reason for Referral Specialty Diagnoses / Procedures Referred By Ismael t Referred To Contact Orthopaedic Surgery Diagnoses Trochanteric bursitis of right hip Gluteal tendonitis of right buttock Procedures L Inj/Asp: R greater trochanteric bursa Dino George PA [address] [facility] [address] [place] [address] Referral ID Status Reason Start Date Expiration Date V isits Requested Visits Authorized [id number] Authorized 12/19/2023 06/16/2024 1 1 Additional Source Comments INFORMATION SOURCE (unrecogn ized section and content) DATE CREATED AUTHOR 09/27/2017 [facility] DATE CREATED AUTHOR AUTHOR'S ORGANIZ ATION 01/18/2018 [facility] DATE CREATED AUTHOR AUTHOR'S ORGANIZ ATION 08/05/2018 [facility] DATE CREATED AUTHOR AUTHOR'S ORGANIZ ATION 09/10/2022 [facility] DATE CREATED AUTHOR AUTHOR'S ORGANIZ ATION 07/15/2023 [facility] DATE CREATED AUTHOR AUTHOR'S ORGANIZ ATION 01/31/2024 [facility] DATE CREATED AUTHOR AUTHOR'S ORGANIZ ATION 04/15/2024 [facility] EPIC DATE CREATED AUTHOR AUTHOR'S ORGANIZ ATION 04/21/2024 [facility] Care Teams (unrecognized sec tion and content) [...] Kenyetta Reynolds MD Primary Care Provider Active Quarter Doper Relationship Specialty Start Date End Date Kenyetta Reynolds MD [address] [place] [address] PCP - General Family Medicine 03/14/19 Quarter Doper Relationship Specialty Start Date End Date Kenyetta Reynolds MD PCP - General Family Medicine 03/14/19 Quarter Doper Relationship Specialty Start Date End Date Kenyetta Reynolds MD PCP - General Family Medicine 03/14/19 Quarter Doper Relationship Specialty Start Date End Date Kenyetta Reynolds MD [address] [place] [address] PCP - General Family Medicine 09/15/22 Quarter Doper Relationship Specialty Start Date End Date Kenyetta Reynolds MD PCP - General Family Medicine 03/14/19 Quarter Doper Relationship Specialty Start Date End Date Kenyetta Reynolds MD PCP - General Family Medicine 03/14/19 Quarter Doper Relationship Specialty Start Date End Date Kenyetta Reynolds MD PCP - General Family Medicine 03/14/19 Quarter Doper Relationship Specialty Start Date End Date Kenyetta Reynolds MD [address] [place] [address] PCP - General Family Medicine 09/15/22 Quarter Doper Relationship Specialty Start Date End Date Kenyetta Reynolds MD [address] [place] [address] PCP - General Family Medicine 09/15/22 Quarter Doper Relationship Specialty Start Date End Date Kenyetta Reynolds MD [address] [place] [address] PCP - General Family Medicine 09/15/22 Quarter Doper Relationship Specialty Start Date End Date Kenyetta Reynolds MD [address] [place] [address] PCP - General Family Medicine 09/15/22 Quarter Doper Relationship Specialty Start Date End Date Kenyetta Reynolds MD [address] [place] [address] PCP - General Family Medicine 12/20/19 Goals [...] or prosecute any alcohol or drug abuse patient.[facility] the event this information is protected by the Federal Confidentiality of Alcohol and Drug Abuse Patient Records regulations: The Federal rules restrict any use of the information to criminally investigate or prosecute any alcohol or drug abuse patient.[facility] the event this information is protected by the Federal Confidentiality of Alcohol and Drug Abuse Patient Records regulations: The Federal rules restrict any use of the information to criminally investigate or prosecute any alcohol or drug abuse patient.[facility] the event this information is protected by the Federal Confidentiality of Alcohol and Drug Abuse Patient Records regulations: The Federal rules restrict any use of the information to criminally investigate or prosecute any alcohol or drug abuse patient.[facility] the event this information is protected by the Federal Confidentiality of Alcohol and Drug Abuse Patient Records regulations: The Federal rules restrict any use of the information to criminally investigate or prosecute any alcohol or drug abuse patient.[facility] the event this information is protected by the Federal Confidentiality of Alcohol and Drug Abuse Patient Records regulations: The Federal rules restrict any use of the information to criminally investigate or prosecute any alcohol or drug abuse patient.[facility] HospitalIn the event this information is protected by the Federal Confidentiality of Alcohol and Drug Abuse Patient Records regulations: The Federal rules restrict any use of the information to criminally investigate or prosecute any alcohol or drug abuse patient.[facility] Reason for Visit (unrecogniz ed section [...] BE BASED ON THE PRIMARY CLINICAL RECORDS. The [employer] provides no warranty or guarantee of the accuracy or completeness of information in this document.
[2024-05-14 09:31] VITALS: BP 146/88; PULSE 79; TEMP 36.3; O2SAT 98
[2024-05-14 09:39] LABS: Prothrombin Time 16.2 sec (9.0-11.6)
[2024-05-14 10:07] VITALS: BP 137/78; PULSE 80; O2SAT 98
[2024-05-14 10:10] VITALS: BP 133/81; PULSE 88; O2SAT 97
[2024-05-14] MEDS: BUPIVACAINE HCL 0.25% PF 25 MG/10 ML VIAL 6 ML INJ (10:10)
--- NOTE | 2024-05-14 10:10 | W.PM.PROCNOT ---
Date of procedure: 05/14/24 Pre-op diagnosis: Pain due to cervical spondylosis without myelopathy Post-op diagnosis: same as pre-op Procedure: Procedure: Bilateral C2-3, 3-4 medial branch block Medications: Bupivacaine 0.25% 6cc The patient was seen and examined in the preoperative holding area.? The informed consent was obtained and placed on the chart.? The patient was brought to the medical procedure unit and placed in the prone position.? A timeout was completed verifying correct patient, procedure site, positioning, plan, and special equipment.? Using aseptic technique, the needle was placed at left C2.? Under direct fluoroscopic visualization, a Quincke tip needle was advanced to the midpoint of the waist of the articular pillar at the respective medial branch segment. The above-mentioned injectate was placed in a 1 mL aliquot proceeded by negative aspiration.? The needle was removed.? The procedure was completed at all left C3, 4. The same procedure, at the same levels, was then completed on the right side. Insertion site was covered.? Patient was taken to the postprocedural recovery area and monitored for an appropriate length of time before found suitable for discharge in the accompaniment of a responsible adult. Anesthesia: Local Surgeon: Lizzie Torre Pathology: none sent Condition: stable Disposition: no change
[2024-05-14] MEDS: LIDOCAINE HCL 2% 400 MG/20 ML MDV INJ (10:11)
== END 2024-05-14 10:14 | disposition home or self-care (01) ==
LOC: SURGOUT 09:05
PROVIDERS: PCP Family Medicine; Visit Provider Anesthesiology
DX: M54.2 Cervicalgia (principal); M47.812 Spondylosis without myelopathy or radiculopathy, cervical region
CPT/HCPCS: 36415; 64490; 64491; 85610; J0665

== ENCOUNTER 2024-05-18 09:05 | Outpatient (OUT) | payer MEDICARE, OTHER, SELFPAY ==
--- OUTSIDE RECORDS SUMMARY | 2024-05-18 09:20 | XMS_ITS | CCD ---
Author Organization [facility] Care Team Providers Care Cargo Router Name Role Phone Demarco Hess Unavailable Unavailable [...] Care Unavailable MD Christian Steiner Other Provider [phone] MD Kacie Garay Attending Provider MD Kenyetta Reynolds Primary Care Provider [phone] Kenyetta Reynolds MD Primary Care Provider [phone] LYNSEY SALDANA Attending Unavailable KENYETTA REYNOLDS Referring Unavailable KENYETTA REYNOLDS Primary Care Unavailable Kenyetta Reynolds MD Primary Care Provider [phone] MD Christian Steiner Other Provider MD Kacie Garay Attending Provider [phone] MD Kenyetta Reynolds Primary Care Provider [phone] Christian Steiner Consulting Unavailable Kacie Garay [...] Unavailable Kenyetta Reynolds MD Primary Care Provider [phone] Allergies Allergy Classification Reported Allergen(s) Allergy Type Date of Onset Reaction(s) Facility Sulfonamides (antibiotic) (1 source) Sulfonamides (Antibiotic) Drug Allergy 9 Unknown [facility] (17 sources) Sulfonamides (Antibiotic); 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: [SULFA (SULFONAMIDE ANTIBIOTICS)] Drug Allergy 9 Unknown [facility] (1 source) Sulfonamides (Antibiotic) Drug allergy (disorder) [address] [facility] (8 sources) Sulfamethoxazole / Trimethoprim Drug Allergy 1 Unknown [facility] (1 source) Sulfonamides (Antibiotic) Drug allergy (disorder) 4 [facility] Medications Current Medications Medication Drug [...] by mouth every six hours as needed rqlxmtmvkj-ximgdibwtbqqh-zpzyzkgy 50-325 -40 MG tablet Take 1 tablet by mouth every 6 (six) hours if needed. 0 Active End: 01-17-2023 acetaminophen 325 mg-caffein e 40 mg-butalbital 50 mg (FIORICET) per tablet ekwczmkinu-nsmsmwzdgnpyf-tvlulkfc 50 mg-325 mg-40 mg tablet 0 01/17/2023 [...] Oral Daily July 19, 2018 10:42am 07-19-2018 [facility] ([id number]) 07/19/2018 Active take 1 tablet by mouth in the mo rning cholecalciferol (D3-5) 5,000 Units tablet Take 5,000 Units by mouth in the morning. Active Comment on above: Cholecalciferol Chol ecalciferol (Vitamin D3) Active 1000 UNIT Oral Daily July 19, 2018 10:42am 07-19-2018 [facility] ([id number]) CHONDROITIN SULFATE A ORAL (14 sources) take [...] Twice daily March 25, 2017 10:57am 03-25-2017 [facility] ([id number]) 03/25/2017 Active Comment on above: Linseed Oil Flaxseed Oil Active 1000 MG Oral Twice daily March 25, 2017 10:57am 03-25-2017 [facility] ([id number]) Magnesium (16 sources) take 1 mg by [...] Oral Daily January 05, 2017 3:53pm 01-05-2017 [facility] ([id number]) 01/05/2017 Active Comment on above: Magnesium Oxide Magn esium Oxide Active 250 MG Oral Daily January 05, 2017 3:53pm 01-05-2017 [facility] ([id number]) montelukast 10 mg oral tablet (19 sources) [...] puff(s) by inhalation every twenty-four hours Tiotropium [place] (Spiriva Respimat) 2.5 mcg/actuation Mist Discontinued 2 [...] in the evening. 12/19/2023 Discontinued tiotropium (SPIR EUINCE RESPIMAT) 2.5 mcg/actuation inhaler Spiriva Respimat 2.5 [...] 3 01-21-2022 Episodic Other aftercare (1 source) alf (current) use of anticoagulants; 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: [LONGTERM CURRNT USE ANTICOAGULANTS] Onset: 3 Episodic Other [...] sources) Long-term current use of anticoagulant; 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: [alf (current) use of anticoagulants] Onset: 02-02-2019 Resolved: 09-14-2022 07-05-2022 Episodic Other aftercare (15 sources) Long-term current use of drug therapy; 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: [Other fdc (current) drug therapy] Onset: 03-22-2022 Resolved: 09-14-2022 07-05-2022 Episodic Other aftercare (1 source) Other buttermaker helper (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) drug therapy; 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: [OTH LONGTERM CURRENT DRUG THERAPY] Onset: 03-22-2022 Episodic Other [...] 07-05-2022 Episodic Unclassified (1 source) HEALTH MAINTENANCE [id number] Z00.00 Onset: 01-28-2017 Urinary tract infections (8 sources) Acute cystitis; 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: [Acute cystitis without hematuria] Onset: 10-19-2019 Resolved: 09-14-2022 09-14-2022 Episodic Results Test Name Value Interpretation Reference Range Facility MM screening mammo LT w/CADo n 01-23-2024 MM screening mammo LT w/CAD [facility] [place] [address] Mammography Report Signed Patient: Myla Pollack MR#: [id number] : 1950 Acct:[id number] Age/Sex: 73 / F ADM Date: 01/23/24 Loc: XT Room: Type: [facility] Attending Dr: Kacie Garay MD Copies [...] José Sandoval M.D.01/23/2024 10:09 AM Dictation Location: [facility] Transcribed By: [facility] 01/23/24 1009 Dictated By: José Sandoval DO 01/23/24 1008 Signed By: 01/23/24 1009 Normal [facility] No Panel Informationon 12-18 BETO [...] and draped in the usual sterile fashion. [facility] LASER TRABECULOPLASTY OD (RI GHT EYE)on 09-05-2023 [facility] OCT OPTIC NERVE CIRRUS OU (B OTH EYES)on 07-27-2023 [facility] Radiology Study observation (narrative) [facility] VISUAL FIELD 24-2 OU (BOTH E YES)on 07-27-2023 [facility] Radiology Study observation (narrative) [facility] MRI WRIST RT WO CONon 2022 [...] DINO GREGORY Date: 2022-06-20 13:14 Normal [facility] INSULINon 04-29-2022 Insulin 15.6 uIU/mL Normal 2.6-24.[address] [facility] Comment on above: Performed By: #### I NSULIN #### [facility] [address] [place] [address] Dr. Marizol Macedo CBC AUTO DIFFon 04-28-2022 BASO # 0.0 103/ul Normal 0.0-0.[address] [facility] Comment on above: Performed By: #### C BC #### [facility] [address] [place] [address] Dr. Marizol Macedo Basophils/100 WBC (Bld) 0.3 % Normal 0.2-2.[address] [facility] Comment on above: Performed By: #### C BC #### [facility] [address] [place] [address] Dr. Marizol Macedo EO # 0.1 103/ul Normal 0.0-0.[address] [facility] Comment on above: Performed By: #### C BC #### [facility] [address] [place] [address] Dr. Marizol Macedo Eosinophils/100 WBC (Bld) 1.0 % Normal 0.9-7.[address] [facility] Comment on above: Performed By: #### C BC #### [facility] [address] [place] [address] Dr. Marizol Macedo Erythrocyte distribution width (RBC) [Ratio] 12.6 % Normal 11.0-15.0 [facility] Comment on above: Performed By: #### C BC #### [facility] [address] [place] [address] Dr. Marizol Macedo Hematocrit (Bld) [Volume fraction] 43.4 % Normal 36.0-48.0 [facility] Comment on above: Performed By: #### C BC #### [facility] [address] [place] [address] Dr. Marizol Macedo Hemoglobin (Bld) [Mass/Vol] 14.1 g/dL Normal 12.0-16.0 [facility] Comment on above: Performed By: #### C BC #### [facility] [address] [place] [address] Dr. Marizol Macedo IG # 0.02 10e3/ul Normal 0.00-0.03 [facility] Comment on above: Performed By: #### C BC #### [facility] [address] [place] [address] Dr. Marizol Macedo IG % 0.3 % Normal 0.0-0.5 [facility] Comment on above: Performed By: #### C BC #### [facility] [address] [place] [address] Dr. Marizol Macedo LYMPH # 2.4 103/ul Normal 1.2-3.8 [facility] Comment on above: Performed By: #### C BC #### [facility] [address] [place] [address] Dr. Marizol Macedo Lymphocytes/100 WBC (Bld) 30.9 % Normal 20.5-60.0 [facility] Comment on above: Performed By: #### C BC #### [facility] [address] [place] [address] Dr. Marizol Macedo MANUAL DIFF REQ NO Normal [facility] Comment on above: Performed By: #### C BC #### [facility] [address] [place] [address] Dr. Marizol Macedo MCH (RBC) [Entitic mass] 30.7 pg Normal 26.7-34.[address] [facility] Comment on above: Performed By: #### C BC #### [facility] [address] [place] [address] Dr. Marizol Macedo MCHC (RBC) [Mass/Vol] 32.5 g/dL Normal 29.9-35.[address] [facility] Comment on above: Performed By: #### C BC #### [facility] [address] [place] [address] Dr. Marizol Macedo MCV (RBC) [Entitic vol] 94.3 fL Normal 81.0-99.[address] [facility] Comment on above: Performed By: #### C BC #### [facility] [address] [place] [address] Dr. Marizol Macedo MONO # 0.4 103/ul Normal 0.3-0.8 [facility] Comment on above: Performed By: #### C BC #### [facility] [address] [place] [address] Dr. Marizol Macedo Monocytes/100 WBC (Bld) 5.4 % Normal 1.7-12.[address] [facility] Comment on above: Performed By: #### C BC #### [facility] [address] [place] [address] Dr. Marizol Macedo NEUT # 4.9 103/ul Normal 1.4-6.[address] [facility] Comment on above: Performed By: #### C BC #### [facility] [address] [place] [address] Dr. Marizol Macedo Neutrophils/100 WBC (Bld) 62.1 % Normal 43.0-75.[address] [facility] Comment on above: Performed By: #### C BC #### [facility] [address] [place] [address] Dr. Marizol Macedo Platelet mean volume (Bld) [Entitic vol] 10.2 fL Normal 9.5-13.[address] [facility] Comment on above: Performed By: #### C BC #### [facility] [address] [place] [address] Dr. Marizol Macedo PLT 279 103/ul Normal 150-[address] [facility] Comment on above: Performed By: #### C BC #### [facility] [address] [place] [address] Dr. Marizol Macedo RBC 4.60 106/ul Normal 4.20-5.40 [facility] Comment on above: Performed By: #### C BC #### [facility] [address] [address] [address] Marizol Macedo WBC 7.8 103/ul Normal 4.0-11.0 [facility] Comment on above: Performed By: #### C BC #### [facility] [address] [place] [address] Dr. Marizol Macedo FREE THYROXINE INDEX T7on FTI 3.50 Normal 1.30-4.50 [facility] Comment on above: Performed By: #### L IPID, T7, CMP, TSH #### [facility] [address] [place] [address] Dr. Marizol Macedo T3U 35.0 % Normal 30.0-39.0 [facility] Comment on above: Performed By: #### L IPID, T7, CMP, TSH #### [facility] [address] [place] [address] Dr. Marizol Macedo T4 [Mass/Vol] 10.00 ug/dL Normal 4.80-13.90 [facility] Comment on above: Performed By: #### L IPID, T7, CMP, TSH #### [facility] [address] [place] [address] Dr. Marizol Macedo GLYCOHEMOGLOBIN A1Con 2022 ADA RECOMMENDATION SEE BELOW Normal [facility] Comment on above: Result Comment: ADA RECOMMENDED LIMIT 4.0 - 6.0 ADA THERAPEUTIC TARGET < 7.0 ACTION SUGGESTED > 7.0 Performed By: #### A 1C #### [facility] [address] [place] [address] Dr. Marizol Macedo Glucose [Mass/Vol] 114 mg/dL Normal [facility] Comment on above: Performed By: #### A 1C #### [facility] [address] [address] [address] Marizol Macedo HbA1c (Bld) [Mass fraction] 5.6 % Normal 4.5-6.2 [facility] Comment on above: Performed By: #### A 1C #### [facility] [address] [address] [address] Marizol Macedo IRONon 04-28-2022 Iron [Mass/Vol] 136.0 ug/dL Normal 50.0-170.0 [facility] Comment on above: Performed By: #### I CECELIA #### [facility] [address] [address] [address] Marizol Macedo LIPID PROFILEon 04-28-2022 CHOL-HDL RATIO NORM SEE BELOW Normal [facility] Comment on above: Result Comment: 3.3 - 4.4 LOW RISK 4.4 - 7.1 AVERAGE RISK 7.1 - 11.0 MODERATE RISK >11.0 HIGH RISK Performed By: #### L IPID, T7, CMP, TSH #### [facility] [address] [address] [address] Marizol Macedo Cholesterol [Mass/Vol] 134 mg/dL Normal <=200 [facility] Comment on above: Performed By: #### L IPID, T7, CMP, TSH #### [facility] [address] [address] [address] Marizol Macedo Cholesterol in HDL [Mass/Vol] 69 mg/dL Critically high 40-60 [facility] Comment on above: Performed By: #### L IPID, T7, CMP, TSH #### [facility] [address] [address] [address] Marizol Macedo Cholesterol in LDL [Mass/Vol] 46.6 mg/dL Normal [facility] Comment on above: Performed By: #### L IPID, T7, CMP, TSH #### [facility] [address] [address] [address] Marizol Macedo Cholesterol.total/Ch olesterol in HDL [Mass ratio] 1.9 {ratio} Normal [facility] Comment on above: Performed By: #### L IPID, T7, CMP, TSH #### [facility] [address] [address] [address] Marizol Macedo HDL NORMAL > or = 60 mg/dl - LO W CARDIOVASCULAR RISK <40 mg/dl - HIGH CARDIOVASCULAR RISK Normal [facility] Comment on above: Performed By: #### L IPID, T7, CMP, TSH #### [facility] [address] [address] [address] Marizol Macedo LDL CALC NORMAL SEE BELOW Normal [facility] Comment on above: Result Comment: <100 mg/dl OPTIMAL 100 - 129 mg/dl NEAR OR ABOVE OPTIMAL 130 - 159 mg/dl BORDERLINE HIGH 160 - 189 mg/dl HIGH >190 mg/dl VERY HIGH Performed By: #### L IPID, T7, CMP, TSH #### [facility] [address] [address] [address] Marizol Macedo Triglyceride [Mass/Vol] 92 mg/dL Normal <=150 [facility] Comment on above: Performed By: #### L IPID, T7, CMP, TSH #### [facility] [address] [address] [address] Marizol Macedo VLDL CALC 18.4 mg/dL Normal [facility] Comment on above: Performed By: #### L IPID, T7, CMP, TSH #### [facility] [address] [address] [address] Marizol Macedo PROF 14(COMP METB)on 023 Albumin [Mass/Vol] 3.9 g/dL Normal 3.4-5.0 [facility] Comment on above: Performed By: #### L IPID, T7, CMP, TSH #### [facility] [address] [address] [address] Marizol Macedo Albumin/Globulin [Mass ratio] 1.1 {ratio} Normal [facility] Comment on above: Performed By: #### L IPID, T7, CMP, TSH #### [facility] [address] [address] [address] Marizol Macedo ALP [Catalytic activity/Vol] 97 U/L Normal 46-116 [facility] Comment on above: Performed By: #### L IPID, T7, CMP, TSH #### [facility] [address] [address] [address] Marizol Macedo ALT [Catalytic activity/Vol] 57 U/L Normal 14-59 [facility] Comment on above: Performed By: #### L IPID, T7, CMP, TSH #### [facility] [address] [address] [address] Marizol Macedo Anion gap [Moles/Vol] 11.9 mmol/L Normal [facility] Comment on above: Performed By: #### L IPID, T7, CMP, TSH #### [facility] [address] [address] [address] Marizol Macedo AST [Catalytic activity/Vol] 35 U/L Normal 15-37 [facility] Comment on above: Performed By: #### L IPID, T7, CMP, TSH #### [facility] [address] [place] [address] Dr. Marizol Macedo Bilirubin [Mass/Vol] 0.6 mg/dL Normal 0.2-1.0 [facility] Comment on above: Performed By: #### L IPID, T7, CMP, TSH #### [facility] [address] [address] [address] Marizol Macedo Calcium [Mass/Vol] 9.8 mg/dL Normal 8.5-10.1 [facility] Comment on above: Performed By: #### L IPID, T7, CMP, TSH #### [facility] [address] [address] [address] Marizol Macedo Chloride [Moles/Vol] 103 mmol/L Normal 98-[address] [facility] Comment on above: Performed By: #### L IPID, T7, CMP, TSH #### [facility] [address] [address] [address] Marizol Macedo CO2 [Moles/Vol] 28.0 mmol/L Normal 21.0-32.0 [facility] Comment on above: Performed By: #### L IPID, T7, CMP, TSH #### [facility] [address] [address] [address] Marizol Macedo Creatinine [Mass/Vol] 0.75 mg/dL Normal 0.55-1.[address] [facility] Comment on above: Performed By: #### L IPID, T7, CMP, TSH #### [facility] [address] [address] [address] Marizol Macedo EGFR-AF ARMENIAN >60 Normal >=60 [facility] Comment on above: Performed By: #### L IPID, T7, CMP, TSH #### [facility] [address] [address] [address] Marizol Macedo EGFR-NON AF ARMENIAN >60 Normal >=[address] [facility] Comment on above: Performed By: #### L IPID, T7, CMP, TSH #### [facility] [address] [address] [address] Marizol Macedo Globulin (S) [Mass/Vol] 3.5 g/dL Normal [facility] Comment on above: Performed By: #### L IPID, T7, CMP, TSH #### [facility] [address] [address] [address] Marizol Macedo Glucose [Mass/Vol] 91 mg/dL Normal 74-106 [facility] Comment on above: Performed By: #### L IPID, T7, CMP, TSH #### [facility] [address] [address] [address] Marizol Macedo Potassium [Moles/Vol] 3.9 mmol/L Normal 3.5-5.[address] [facility] Comment on above: Performed By: #### L IPID, T7, CMP, TSH #### [facility] [address] [address] [address] Marizol Macedo Protein [Mass/Vol] 7.4 g/dL Normal 6.4-8.2 [facility] Comment on above: Performed By: #### L IPID, T7, CMP, TSH #### [facility] [address] [address] [address] Marizol Macedo Sodium [Moles/Vol] 139 mmol/L Normal 136-145 [facility] Comment on above: Performed By: #### L IPID, T7, CMP, TSH #### [facility] [address] [address] [address] Marizol Macedo Urea nitrogen [Mass/Vol] 13.0 mg/dL Normal 7.0-18.0 [facility] Comment on above: Performed By: #### L IPID, T7, CMP, TSH #### [facility] [address] [address] [address] Marizol Macedo Urea nitrogen/Creatinine [Mass ratio] 17.3 mg/mg Normal [facility] Comment on above: Performed By: #### L IPID, T7, CMP, TSH #### [facility] [address] [place] [address] Dr. Marizol Macedo TSHon 04-28-2022 TSH 1.306 uIU/mL Normal 0.358-3.740 [facility] Comment on above: Performed By: #### L IPID, T7, CMP, TSH #### [facility] [address] [place] [address] Dr. Marizol Macedo CBC W/DIFFon 09-28-2017 ABS BASOPHILS 0.0 10*3/uL Normal 0.0-0.2 [facility] Comment on above: Performed By: #### 4 180, [id number] ####[facility] ABS IMM GRANS 0.0 10*3/uL Normal 0.0-0.2 [facility] Comment on above: Performed By: #### 4 180, 45755 ####[facility] ABS NEUTROPHILS 2.8 10*3/uL Normal 1.6-7.6 [facility] Comment on above: Performed By: #### 4 180, 93287 ####[facility] Basophils Auto #/vol (Bld) 0.5 % Normal 0.0-1.0 [facility] Comment on above: Performed By: #### 4 180, 57722 ####[facility] [facility].[address] Eosinophils Auto #/vol (Bld) 0.1 10*3/uL Normal 0.0-0.5 [facility] Comment on above: Performed By: #### 4 180, 72432 ####[facility] [facility].[address] Eosinophils/100 WBC Auto (Bld) 2.3 % Normal 0.0-6.0 [facility] Comment on above: Performed By: #### 4 180, 12463 ####[facility] [facility].[address] Erythrocyte distribution width Auto Ratio (RBC) 12.9 % Normal 11.5-15.0 [facility] Comment on above: Performed By: #### 4 180, [address] ####[address] [place] [facility].[address] Hematocrit Auto Volume Fraction (Bld) 42.9 % Normal 36.0-45.0 [facility] Comment on above: Performed By: #### 4 180, 85680 ####[address] [address] [facility].[address] Hemoglobin mass conc (Bld) 14.1 g/dL Normal 12.0-15.0 [facility] Comment on above: Performed By: #### 4 180, 28799 ####[facility] [facility].[address] IMMATURE GRANS 0.3 % Normal 0.0-1.0 [facility] Comment on above: Performed By: #### 4 180, 35537 ####[address] [facility] [place] [address], [facility] Lymphocytes Auto #/vol (Bld) 2.4 10*3/uL Normal 1.2-4.0 [facility] Comment on above: Performed By: #### 4 180, 03236 ####[facility] Lymphocytes/100 WBC Auto (Bld) 39.5 % Normal 20.0-45.0 [facility] Comment on above: Performed By: #### 4 1801, 18556 ####[facility] [facility] MCH Auto Entitic mass (RBC) 30.3 pg Normal 27.0-33.0 [facility] Comment on above: Performed By: #### 4 1801, 84458 ####[facility] [facility] MCHC Auto mass conc (RBC) 32.9 g/dL Normal 32.0-35.0 [facility] Comment on above: Performed By: #### 4 1801, 64878 ####[facility] [facility].[address] MCV Auto Entitic volume (RBC) 92.3 fL Normal 82.0-98.0 [facility] Comment on above: Performed By: #### 4 1801, 77555 ####[facility] Monocytes Auto #/vol (Bld) 0.7 10*3/uL Normal 0.1-1.0 [facility] Comment on above: Performed By: #### 4 180, 14916 ####[facility] [facility].[address] MONOS 11.2 % Normal 5.0-12.0 [facility] Comment on above: Performed By: #### 4 1801, 48560 ####[facility] [facility] [facility].[address] Neutrophils/100 WBC Auto (Bld) 46.2 % Normal 40.0-72.0 [facility] Comment on above: Performed By: #### 4 180, 94599 ####[address] Nucleated RBC/100 WBC Ratio (Bld) 0 % Normal 0-0 [facility] Comment on above: Performed By: #### 4 1801, 75878 ####[address] PLAT CNT 263 10*3/uL Normal 150-400 [facility] Comment on above: Performed By: #### 4 180, 16873 ####[address] RBC Auto #/vol (Bld) 4.65 10*6/uL Normal 3.80-5.00 [facility] Comment on above: Performed By: #### 4 1801, 95156 ####[address] WBC Auto #/vol (Bld) 6.07 10*3/uL Normal 4.00-10.60 [facility] Comment on above: Performed By: #### 4 1801, 93157 ####[address] COMP METABOLIC PANELon 09-28 Albumin mass conc 4.1 g/dL Normal 3.5-5.7 [facility] Comment on above: Performed By: #### 4 180, 81543 ####[address] ALKALINE PHOSPH 73 IU/L Normal 34-104 [facility] Comment on above: Performed By: #### 4 1801, 17625 ####[facility] [place] [address], [place] ALT enzyme act/vol 54 U/L High 7-52 [facility] Comment on above: Performed By: #### 4 180, 61464 ####[facility] [place] [address], [place] AST enzyme act/vol 40 U/L High 13-39 [facility] Comment on above: Performed By: #### 4 180, 15232 ####[facility] [place] [address], [place] Bilirubin mass conc 0.4 mg/dL Normal 0.3-1.0 [facility] Comment on above: Performed By: #### 4 180, 58951 ####[facility] [place] [address], [place] Calcium mass conc 9.7 mg/dL Normal 8.6-10.3 [facility] Comment on above: Performed By: #### 4 180, 77955 ####[facility] [place] [address], [place] Chloride molar conc 103 mmol/L Normal 98-107 [facility] Comment on above: Performed By: #### 4 180, 20832 ####[facility] [place] [address], [place] CO2 molar conc 28 mmol/L Normal 21-31 [facility] Comment on above: Performed By: #### 4 180, 63731 ####[facility] [place] [address], [place] Creatinine mass conc 0.81 mg/dL Normal 0.60-1.20 [facility] Comment on above: Performed By: #### 4 180, 17382 ####[facility] [place] [address], [place] GFR/1.73 sq M predicted among blacks MDRD vol rate/area (S/P/Bld) mL/min/{1.73_m2} Normal >60 [facility] Comment on above: Performed By: #### 4 180, 47820 ####[facility] [place] [address], [facility] GFR/1.73 sq M predicted among non-blacks MDRD vol rate/area (S/P/Bld) mL/min/{1.73_m2} Normal >60 [facility] Comment on above: Performed By: #### 4 180, 72535 ####[facility] [place] [address], [facility] Glucose mass conc 95 mg/dL Normal 70-100 [facility] Comment on above: Performed By: #### 4 180, 96951 ####[facility] [place] [address], [facility] Potassium molar conc 4.4 mmol/L Normal 3.5-5.1 [facility] Comment on above: Performed By: #### 4 180, 72131 ####[facility] [place] [address], [facility] Protein mass conc 7.2 g/dL Normal 6.0-8.3 [facility] Comment on above: Performed By: #### 4 180, 90618 ####[facility] [place] [address], [facility] Sodium molar conc 139 mmol/L Normal 136-145 [facility] Comment on above: Performed By: #### 4 180, 51638 ####[facility].[place] [id number], [facility] Urea nitrogen mass conc 19 mg/dL Normal 7-25 [facility] Comment on above: Performed By: #### 4 180, 14359 ####[facility] Glucose Glucometer (BldC) [M ass/Vol]on 08-17-2017 Glucose [Mass/Vol] 99 mg/dL [facility] Comment on above: Random Glucose Refer ence Range is dependent on time and content of last meal. Glucose of more than 200 mg/dL in a nonstressed, ambulatory subject supports the diagnosis of Diabetes Mellitus. CBC W/DIFFon 03-31-2017 Basophils Auto #/vol (Bld) 0.3 % Normal 0.0-2.0 [facility] Comment on above: Performed By: #### 4 180, 75667 ####[facility] [facility] [place] [address], [facility] Eosinophils/100 WBC Auto (Bld) 2.1 % Normal 0.0-5.0 [facility] Comment on above: Performed By: #### 4 180, 52776 ####[facility] [facility].[address] Erythrocyte distribution width Auto Ratio (RBC) 13.0 % Normal 11.5-16.9 [facility] Comment on above: Performed By: #### 4 180, 03657 ####[facility] [facility].[address] Hematocrit Auto Volume Fraction (Bld) 42.6 % Normal 36.0-48.0 [facility] Comment on above: Performed By: #### 4 180, 49578 ####[facility] [facility].[address] Hemoglobin mass conc (Bld) 14.3 g/dL Normal 12.0-15.0 [facility] Comment on above: Performed By: #### 4 180, 21734 ####[facility] [place] [address], [facility] Lymphocytes/100 WBC Auto (Bld) 29.7 % Normal 20.0-40.0 [facility] Comment on above: Performed By: #### 4 180, 98820 ####[facility] MCH Auto Entitic mass (RBC) 30.7 pg Normal 24.0-32.0 [facility] Comment on above: Performed By: #### 4 180, 45152 ####[facility] [facility].[address] MCHC Auto mass conc (RBC) 33.7 g/dL Normal 32.0-36.0 [facility] Comment on above: Performed By: #### 4 180, 48330 ####[facility] [facility].[address] MCV Auto Entitic volume (RBC) 91.2 fL Normal 80.0-100.0 [facility] Comment on above: Performed By: #### 4 180, 90573 ####[facility] [facility].[address] METHOD Normal RBC Morphology Normal [facility] Comment on above: Performed By: #### 4 180, 10935 ####[facility] [facility].[address] MONOS 6.4 % Normal 2-8 [facility] Comment on above: Performed By: #### 4 180, 03237 ####[facility] [facility].[address] Neutrophils/100 WBC Auto (Bld) 61.5 % Normal 50-70 [facility] Comment on above: Performed By: #### 4 180, 32346 ####[facility] [facility].[address] PLAT CNT 261 Thou/mm3 Normal 100-400 [facility] Comment on above: Performed By: #### 4 180, 05146 ####[facility] [facility].[address] RBC Auto #/vol (Bld) 4.67 mill/mm3 Normal 3.50-5.50 [facility] Comment on above: Performed By: #### 4 1801, 68032 ####[facility] [facility].[address] WBC Auto #/vol (Bld) 6.6 Thou/mm3 Normal 4.0-10.0 [facility] Comment on above: Performed By: #### 4 1801, 71005 ####[facility] [facility].[address] COMP METABOLIC PANELon 03-31 Albumin mass conc 4.0 g/dL Normal 3.5-5.7 [facility] Comment on above: Performed By: #### 4 1801, 29590 ####[facility] [facility].[address] ALKALINE PHOSPH 73 IU/L Normal 34-104 [facility] Comment on above: Performed By: #### 4 1801, 03287 ####[place] [address] [facility].[address] ALT enzyme act/vol 49 U/L Normal 7-52 [facility] Comment on above: Performed By: #### 4 1801, 98859 ####[facility] [facility].[address] AST enzyme act/vol 34 U/L Normal 13-39 [facility] Comment on above: Performed By: #### 4 1801, 48366 ####[facility] [facility].[address] Bilirubin mass conc 0.3 mg/dL Normal 0.3-1.0 [facility] Comment on above: Performed By: #### 4 1801, 34275 ####[facility] [place] [address], [place] Calcium mass conc 10.0 mg/dL Normal 8.6-10.3 [facility] Comment on above: Performed By: #### 4 180, 91363 ####[facility] [place] [address], [place] Chloride molar conc 103 mmol/L Normal 98-107 [facility] Comment on above: Performed By: #### 4 180, 47691 ####[facility] [place] [address], [place] CO2 molar conc 29 mmol/L Normal 21-31 [facility] Comment on above: Performed By: #### 4 180, 29128 ####[facility] [place] [address], [place] Creatinine mass conc 0.86 mg/dL Normal 0.60-1.20 [facility] Comment on above: Performed By: #### 4 180, 96177 ####[facility] [place] [address], [place] GFR/1.73 sq M predicted among blacks MDRD vol rate/area (S/P/Bld) mL/min/{1.73_m2} Normal >60 [facility] Comment on above: Performed By: #### 4 180, 25338 ####[facility] [place] [address], [place] GFR/1.73 sq M predicted among non-blacks MDRD vol rate/area (S/P/Bld) mL/min/{1.73_m2} Normal >60 [facility] Comment on above: Performed By: #### 4 180, 95653 ####[facility] [place] [address], [place] Glucose mass conc 86 mg/dL Normal 70-100 [facility] Comment on above: Performed By: #### 4 180, 28198 ####[facility] [facility] [place] [address], [facility] Potassium molar conc 4.1 mmol/L Normal 3.5-5.1 [facility] Comment on above: Performed By: #### 4 1802, 77373 ####[facility] [facility].[address] Protein mass conc 7.0 g/dL Normal 6.0-8.3 [facility] Comment on above: Performed By: #### 4 1802, 08900 ####[facility] [facility].[address] Sodium molar conc 138 mmol/L Normal 136-145 [facility] Comment on above: Performed By: #### 4 1802, 05148 ####[facility] [facility] [place] [address], [facility] Urea nitrogen mass conc 14 mg/dL Normal 7-25 [facility] Comment on above: Performed By: #### 4 1802, 38488 ####[facility] [facility].[address] ANAon 02-10-2017 HELENE SCREEN <1:40 Normal <1:40,1:40 [facility] Comment on above: Performed By: #### 1 0008 ####[facility] [facility].[address] ANCA IGG WITH REFLEX [id number] on 02-10-2017 ANCA <1:20 Normal <1:20 [facility] Comment on above: Result Comment: The ANCA IFA is <1:20; therefore, no further testing willbe performed.INTERPRETIVE INFORMATION: Anti-Neutrophil Cyto Ab, IgGNeutrophil Cytoplasmic Antibodies (C-ANCA = granularcytoplasmic staining, P-ANCA = perinuclear staining) arefound in the serum of over 90 percent of patients withcertain necrotizing systemic vasculitides, and usually inless than 5 percent of patients with collagen vasculardisease or arthritis.Performed by [facility],[address] [place] [id number] bnr.[employer], Onel Connelly MD - Lab. Director ANTI DNAon 02-10-2017 ANTI DNA <1:10 Normal <1:10 [facility] Comment on above: Performed By: #### 1 0008 ####[facility] [place] [address], [facility] ANTI-BETA 2 GLYCOPROTEIN 1on 02-10-2017 ANTI B2GP1 IGA 9.3 a units Normal 0.0-19.9 [facility] Comment on above: Performed By: #### 1 0008 ####[facility] [place] [address], [facility] ANTI B2GP1 IGG 1.1 g units Normal 0.0-19.9 [facility] Comment on above: Performed By: #### 1 0008 ####[facility] [place] [address], [place] ANTI B2GP1 IGM 2.5 m units Normal 0.0-19.9 [facility] Comment on above: Performed By: #### 1 0008 ####[facility] [place] [address], [facility] ANTI-ENAon 02-10-2017 ANTI SM Negative Normal NEG,NEGATIVE,N eg [facility] Comment on above: Performed By: #### 1 0008 ####[facility] [place] [address], [place] ANTI SM/ANTIRNP Negative Normal NEG,NEGATIVE ,N eg [facility] Comment on above: Performed By: #### 1 0008 ####[facility] [place] [address], [place] ANTICARDIOLIPIN ANTIBODYon 04-12-2016 CARDIOLIPIN IGA 4.9 APL Normal 0.0-21.9 [facility] Comment on above: Performed By: #### 1 0008 ####[facility] [facility].[address] CARDIOLIPIN IGG 14.5 GPL Normal 0.0-22.9 [facility] Comment on above: Performed By: #### 1 0008 ####[facility] [facility].[address] CARDIOLIPIN IGM 9.5 MPL Normal 0.0-10.9 [facility] Comment on above: Performed By: #### 1 0008 ####[facility] [facility].[address] CBC W/DIFFon 02-10-2017 Basophils Auto #/vol (Bld) 0.4 % Normal 0.0-2.0 [facility] Comment on above: Performed By: #### 5 0103 ####[facility] [facility].[address] Eosinophils/100 WBC Auto (Bld) 2.5 % Normal 0.0-5.0 [facility] Comment on above: Performed By: #### 5 0103 ####[facility] [facility].[address] Erythrocyte distribution width Auto Ratio (RBC) 14.5 % Normal 11.5-16.9 [facility] Comment on above: Performed By: #### 5 0103 ####[facility] [facility].[address] Hematocrit Auto Volume Fraction (Bld) 41.0 % Normal 36.0-48.0 [facility] Comment on above: Performed By: #### 5 3 ####[facility] [facility].[address] Hemoglobin mass conc (Bld) 13.6 g/dL Normal 12.0-15.0 [facility] Comment on above: Performed By: #### 5 0103 ####[facility] [facility].[address] Lymphocytes/100 WBC Auto (Bld) 26.7 % Normal 20.0-40.0 [facility] Comment on above: Performed By: #### 5 3 ####[facility] [facility].[address] MCH Auto Entitic mass (RBC) 30.5 pg Normal 24.0-32.0 [facility] Comment on above: Performed By: #### 3 ####[facility] [facility].[address] MCHC Auto mass conc (RBC) 33.2 g/dL Normal 32.0-36.0 [facility] Comment on above: Performed By: #### 3 ####[facility] [facility].[address] MCV Auto Entitic volume (RBC) 91.8 fL Normal 80.0-100.0 [facility] Comment on above: Performed By: #### 5 3 ####[facility] [facility].[address] METHOD Normal RBC Morphology Normal [facility] Comment on above: Performed By: #### 3 ####[facility] [facility].[address] MONOS 6.6 % Normal 2-8 [facility] Comment on above: Performed By: #### 3 ####[facility] [facility].[address] Neutrophils/100 WBC Auto (Bld) 63.8 % Normal 50-70 [facility] Comment on above: Performed By: #### 3 ####[facility] PLAT CNT 310 Thou/mm3 Normal 100-400 [facility] Comment on above: Performed By: #### 5 0103 ####[facility] [place] [address], [facility] RBC Auto #/vol (Bld) 4.47 mill/mm3 Normal 3.50-5.50 [facility] Comment on above: Performed By: #### 5 0103 ####[facility] [place] [address], [facility] WBC Auto #/vol (Bld) 7.6 Thou/mm3 Normal 4.0-10.0 [facility] Comment on above: Performed By: #### 5 3 ####[facility] [place] [address], [facility] COMP METABOLIC PANELon 02-10 Albumin mass conc 4.3 g/dL Normal 3.5-5.7 [facility] Comment on above: Performed By: #### 0 0121 ####[facility] [place] [address], [facility] ALKALINE PHOSPH 89 IU/L Normal 34-104 [facility] Comment on above: Performed By: #### 0 0121 ####[facility] [facility] [place] [place] [address], [facility] ALT enzyme act/vol 35 U/L Normal 7-52 [facility] Comment on above: Performed By: #### 0 0121 ####[facility] [place] [address], [facility] AST enzyme act/vol 27 U/L Normal 13-39 [facility] Comment on above: Performed By: #### 0 0121 ####[facility] [place] [address], [facility] Bilirubin mass conc 0.4 mg/dL Normal 0.3-1.0 [facility] Comment on above: Performed By: #### 0 0121 ####[facility] [place] [address], [facility] Calcium mass conc 9.9 mg/dL Normal 8.6-10.3 [facility] Comment on above: Performed By: #### 0 0121 ####[facility] [place] [address], [facility] Chloride molar conc 102 mmol/L Normal 98-107 [facility] Comment on above: Performed By: #### 0 0121 ####[facility] [facility] [place] [place] [address], [facility] CO2 molar conc 25 mmol/L Normal 21-31 [facility] Comment on above: Performed By: #### 0 0121 ####[facility] [facility] [place] [place] [address], [facility] Creatinine mass conc 0.87 mg/dL Normal 0.60-1.20 [facility] Comment on above: Performed By: #### 0 0121 ####[facility] [facility] [place] [address], [facility] GFR/1.73 sq M predicted among blacks MDRD vol rate/area (S/P/Bld) mL/min/{1.73_m2} Normal >60 [facility] Comment on above: Performed By: #### 0 0121 ####[facility] [facility] [place] [place] [address], [facility] GFR/1.73 sq M predicted among non-blacks MDRD vol rate/area (S/P/Bld) mL/min/{1.73_m2} Normal >60 [facility] Comment on above: Performed By: #### 0 0121 ####[facility] [place] [address], [facility] Glucose mass conc 99 mg/dL Normal 70-100 [facility] Comment on above: Performed By: #### 0 0121 ####[facility] [place] [address], [facility] Potassium molar conc 4.1 mmol/L Normal 3.5-5.1 [facility] Comment on above: Performed By: #### 0 0121 ####[facility] [place] [address], [facility] Protein mass conc 7.5 g/dL Normal 6.0-8.3 [facility] Comment on above: Performed By: #### 0 0121 ####[facility] [place] [address], [facility] Sodium molar conc 136 mmol/L Normal 136-145 [facility] Comment on above: Performed By: #### 0 0121 ####[facility] [place] [address], [facility] Urea nitrogen mass conc 20 mg/dL Normal 7-25 [facility] Comment on above: Performed By: #### 0 0121 ####[facility] [place] [address], [facility] COMPLEMENT 3on 02-10-2017 COMPLEMENT 3 154 mg/dL High 79-152 [facility] Comment on above: Performed By: #### 1 0204, 66683, 34821 ####[facility] COMPLEMENT 4on 02-10-2017 COMPLEMENT 4 34 mg/dL Normal 16-38 [facility] Comment on above: Performed By: #### 1 0204, 16427, 71772 ####[facility] [place] [address], [facility] CREATININE URINE RANDOMon CREATININE 138.0 mg/dL Normal [facility] Comment on above: Result Comment: Ther e are no established reference values for random urine specimens Performed By: #### 4 1802, 67755 ####[facility] [place] [address], [facility] CRYOGLOBULIN ILon 02-10-2017 CRYOGLOBULIN 0 mg/dL Normal 0-10 [facility] IL Normal [facility] CYCLIC CITRULLINATED PEPTIDE AB [id number] 02-10-2017 CYCLIC CIT PEP 6 Units Normal 0-19 [facility] Comment on above: Result Comment: [...] results should bemonitored and testing repeated.Performed by [place],[address] [place] [id number] bqb.[employer], Onel Connelly MD - Lab. Director HEPATITIS B CORE ANTIBODYon 02-10-2017 HEP B CORE AB NONREACTIVE Normal NONREACTIVE [facility] Comment on above: Performed By: #### 3 1397, 94294, 50090, 29287 ####[facility] [place] [address], [facility] HEPATITIS B SURFACE ANTIBODY QUANTon 02-10-2017 HEP B SURF AB 0.00 mIU/ml Normal [facility] Comment on above: Result Comment: INTE RPRETATION:NONREACTIVE<8.00 mIU/mLINDETERMINATE8.00 - 12.00 mIU/mLREACTIVE>12 mIU/mL Performed By: #### 1 0008 ####[facility] [facility] HEPATITIS B SURFACE ANTIGEN QUALon 02-10-2017 HEP B SURF AG QUAL NONREACTIVE Normal NONREACTIVE [facility] Comment on above: Performed By: #### 1 0008 ####[facility] [facility] [place] [address], [facility] HEPATITIS C ANTIBODYon 02-10 ANTI-HCV NONREACTIVE Normal NONREACTIVE [facility] Comment on above: Performed By: #### 3 1397, 36154, 09337, 63412 ####[facility] [facility].[address] RHEUMATOID FACTOR SERUMon RA <20 Normal 0-20 [facility] Comment on above: Performed By: #### 1 0204, 93568, 63394 ####[facility] [facility].[address] SJOGRENS ANTIBODIESon 2016 SS-A Negative Normal NEG,NEGATIVE,N eg [facility] Comment on above: Performed By: #### 1 0008 ####[facility] [facility].[address] SS-B Negative Normal NEG,NEGATIVE,N eg [facility] Comment on above: Performed By: #### 1 0008 ####[facility] [facility] [place] [address], [facility] T PROT UR Adam 02-10-2017 Protein mass conc 29.0 mg/dL Normal [facility] Comment on above: Result Comment: Ther e are no established reference values for random urine specimens Performed By: #### 4 5994, 41115 ####[facility] [facility] [place] [address], [facility] TB QUANTIFERONon 02-10-2017 MITOGEN MINUS NIL >=10 Normal [facility] Comment on above: Performed By: #### 4 180, 53284 ####[facility] [facility] [place] [address], [facility] NIL 0.03 IU/mL Normal [facility] Comment on above: Performed By: #### 4 180, 34641 ####[facility] [facility] [place] [address], [facility] TB AG MINUS NIL 0.01 IU/mL Normal [facility] Comment on above: Performed By: #### 4 180, 22898 ####[facility] [facility] [place] [address], [facility] TB ANTIGEN 0.04 IU/mL Normal [facility] Comment on above: Performed By: #### 4 180, 50283 ####[facility] [facility].[address] TB QUANTIFERON Negative Normal NEGATIVE [facility] Comment on above: Result Comment: [...] and LTBI(http://www.cdc.gov/nchstp/tb/). Performed By: #### 4 180, 81283 ####[facility] [facility] [place] [address], [facility] URINALYSISon 02-10-2017 APPEARANCE CLOUDY Abnormal CLEAR [facility] Comment on above: Performed By: #### 1 0008 ####[facility] [place] [address], [facility] BACTERIA MOD Abnormal NONE SEEN [facility] Comment on above: Performed By: #### 1 0008 ####[facility] [place] [address], [facility] BILIRUBIN Negative Normal NEGATIVE [facility] Comment on above: Performed By: #### 1 0008 ####[facility] [place] [address], [facility] BLOOD Negative Normal NEGATIVE [facility] Comment on above: Performed By: #### 1 0008 ####[facility] [facility] [place] [address], [facility] COLOR YELLOW Normal YELLOW [facility] Comment on above: Performed By: #### 1 0008 ####[facility] [facility] [place] [address], [facility] EPIS MANY Abnormal FEW [facility] Comment on above: Performed By: #### 1 0008 ####[facility] [facility] [place] [address], [facility] GLUCOSE Negative Normal NEGATIVE [facility] Comment on above: Performed By: #### 1 0008 ####[facility] [place] [address], [facility] INR Coag RelTime (Bld) 0-2 Abnormal 0-0 [facility] Comment on above: Performed By: #### 1 0008 ####[facility] [place] [address], [place] KETONE Negative Normal NEGATIVE [facility] Comment on above: Performed By: #### 1 0008 ####[facility] [place] [address], [facility] LEUK DIMPLE LARGE Abnormal NEGATIVE [facility] Comment on above: Performed By: #### 1 0008 ####[facility] [facility].[address] MUCUS THREADS OCC Abnormal NONE SEEN [facility] Comment on above: Performed By: #### 1 0008 ####[facility] NITRITE Negative Normal NEGATIVE [facility] Comment on above: Performed By: #### 1 0008 ####[facility] PH 5.0 Normal 5.0-8.0 [facility] Comment on above: Performed By: #### 1 0008 ####[facility] Protein mass conc Negative Normal NEGATIVE [facility] Comment on above: Performed By: #### 1 0008 ####[facility] SPEC GRAV 1.020 Normal 1.015-1.020 [facility] Comment on above: Performed By: #### 1 0008 ####[facility] WBC UA >100 Abnormal 0-0 [facility] Comment on above: Performed By: #### 1 0008 ####[facility] CYTOLOGY SPECIMENon 02-02-20 17 CYTOLOGY SPEC Normal [facility] Comment on above: Order Comment: Bita nt: A. PERIESOPHAGEAL LESION FNA - CYTOLYT, 10 SLIDES Result Comment: Note : Specimens received on or after December:* Pathology and Cytology reports are located in [facility] in the folder labeled Medical Record Forms.* Reports are also in the Physician Portal.* Reports will be faxed to phycician's office.* For assistance locating reports call: * Willard Guadarrama [phone] * LAB [phone] Performed By: #### L UHCYTO ####[place] [id number] [place] [address] Albumin [Mass/volume] in Ser um or Plasmaon 01-03-2017 Albumin [Mass/Vol] 3.3 g/dL 3.2-5.5 [facility] Basophils Auto (Bld) [#/Vol] on 01-03-2017 Basophils (Bld) [#/Vol] 0.0 10*3/uL 0.0-0.2 [facility] Basophils/100 WBC Auto (Bld) on 01-03-2017 Basophils/100 WBC (Bld) 0.6 % . [facility] Creatinine and Glomerular fi ltration rate.predicted panel (S/P/Bld)on 01-03-2017 Creatinine [Mass/Vol] 1.00 mg/dL 0.44-1.03 [facility] Eosinophils Auto (Bld) [#/Vo l]on 01-03-2017 Eosinophils (Bld) [#/Vol] 0.1 10*3/uL 0.0-0.45 [facility] Eosinophils/100 WBC Auto (Bl d)on 01-03-2017 Eosinophils/100 WBC (Bld) 1.5 % . [facility] Erythrocyte distribution wid th Auto (RBC) [Ratio]on 01-03-2017 Erythrocyte distribution width (RBC) [Ratio] 14.5 % 11.9-15.3 [facility] Estimated glomerular filtrat ion rate (GFR) non- Americanon 01-03-2017 GFR/1.73 sq M.predicted among non-blacks MDRD (S/P/Bld) [Vol rate/Area] 56 mL/min/{1.73_m2} [facility] Globulin Calc (S) [Mass/Vol] on 01-03-2017 Globulin (S) [Mass/Vol] 3.6 g/dL [facility] Hematocrit Auto (Bld) [Volum e fraction]on 01-03-2017 Hematocrit (Bld) [Volume fraction] 36.3 % 34.0-46.4 [facility] Hemoglobin [Mass/volume] in Bloodon 01-03-2017 Hemoglobin (Bld) [Mass/Vol] 12.1 g/dL 11.8-15.4 [facility] Laboratory - Chemistry and C hemistry - challengeon 01-03-2017 GFR/1.73 sq M.predicted among blacks MDRD (S/P/Bld) [Vol rate/Area] mL/min/{1.73_m2} [facility] Comment on above: GFR estimated refere nce range: According to KDOQI guidelines, <60 ml/min/1.73m2 is sufficient to diagnose a patient with chronic kidney disease. Lymphocytes Auto (Bld) [#/Vo l]on 01-03-2017 Lymphocytes (Bld) [#/Vol] 2.1 10*3/uL 1.00-4.8 [facility] Lymphocytes/100 WBC Auto (Bl d)on 01-03-2017 Lymphocytes/100 WBC (Bld) 27.4 % . [facility] MCH Auto (RBC) [Entitic mass ]on 01-03-2017 MCH (RBC) [Entitic mass] 30.8 pg 24.7-34.3 [facility] MCHC Auto (RBC) [Mass/Vol]on 01-03-2017 MCHC (RBC) [Mass/Vol] 33.4 g/dL 32.0-35.0 [facility] MCV Auto (RBC) [Entitic vol] on 01-03-2017 MCV (RBC) [Entitic vol] 92.4 fL 80-100 [facility] Monocytes Auto (Bld) [#/Vol] on 01-03-2017 Monocytes (Bld) [#/Vol] 1.0 10*3/uL High 0.0-0.8 [facility] Monocytes/100 WBC Auto (Bld) on 01-03-2017 Monocytes/100 WBC (Bld) 12.7 % . [facility] Neutrophils Auto (Bld) [#/Vo l]on 01-03-2017 Neutrophils (Bld) [#/Vol] 4.4 10*3/uL 1.8-7.7 [facility] Neutrophils/100 WBC Auto (Bl d)on 01-03-2017 Neutrophils/100 WBC (Bld) 57.8 % . [facility] No Panel Informationon 01-03 Pharmacy Creatinine Clearance (Chem N/A [facility] Platelet mean volume Auto (B ld) [Entitic vol]on 01-03-2017 Platelet mean volume (Bld) [Entitic vol] 8.2 fL 6.3-10.7 [facility] Platelets Auto (Bld) [#/Vol] on 01-03-2017 Platelets (Bld) [#/Vol] 429 10*3/uL 150-450 [facility] Protein [Mass/volume] in Ser um or Plasmaon 01-03-2017 Protein [Mass/Vol] 6.9 g/dL 6.1-7.9 [facility] RBC Auto (Bld) [#/Vol]on RBC (Bld) [#/Vol] 3.93 10*6/uL 3.60-5.00 [facility] Serum or plasma alanine briggs otransferase measurement without P-5'-P (enzymatic activion 01-03-2017 ALT No additional P-5'-P [Catalytic activity/Vol] 37 U/L 10-60 [facility] Serum or plasma albumin/glob ulin mass ratioon 01-03-2017 Albumin/Globulin [Mass ratio] 0.9 {ratio} [facility] Serum or plasma alkaline bita sphatase measurement (enzymatic activity/volume)on 01-03-2017 ALP [Catalytic activity/Vol] 89 U/L 32-92 [facility] Serum or plasma aspartate am inotransferase measurement (enzymatic activity/volume)on 01-03-2017 AST [Catalytic activity/Vol] 30 U/L 10-42 [facility] Serum or plasma calcium katheryn urement (mass/volume)on 01-03-2017 Calcium [Mass/Vol] 9.4 mg/dL 8.2-10.2 [facility] Serum or plasma chloride claudia surement (moles/volume)on 01-03-2017 Chloride [Moles/Vol] 98 mmol/L 95-114 [facility] Serum or plasma glucose katheryn urement (mass/volume)on 01-03-2017 Glucose [Mass/Vol] 107 mg/dL High 70-100 [facility] Comment on above: ADA recommended refe rence rangeRandom Glucose Reference Range is dependent on time and content of last meal. Glucose of more than 200 mg/dL in a nonstressed, ambulatory subject supports the diagnosis of Diabetes Mellitus. Serum or plasma potassium me asurement (moles/volume)on 01-03-2017 Potassium [Moles/Vol] 4.1 mmol/L 3.5-5.1 [facility] Serum or plasma sodium measu rement (moles/volume)on 01-03-2017 Sodium [Moles/Vol] 139 mmol/L 136-146 [facility] Serum or plasma total biliru bin measurement (mass/volume)on 01-03-2017 Bilirubin [Mass/Vol] 0.3 mg/dL 0.3-1.2 [facility] Serum or plasma total carbon dioxide measurement (moles/volume)on 01-03-2017 CO2 [Moles/Vol] 29.5 mmol/L 22.0-30.0 [facility] Serum or plasma urea nitroge n measurement (mass/volume)on 01-03-2017 Urea nitrogen [Mass/Vol] 12 mg/dL 9-23 [facility] WBC Auto (Bld) [#/Vol]on WBC (Bld) [#/Vol] 7.6 10*3/uL 3.8-11.6 [facility] No Panel Information [facility] Vital Signs Date Time Vital Sign Value Performing Clinician Ana rosa 01-30-2024 10:17040 Body height 167.64 cm MD Christian Steiner Work Phone: [facility] 01-30-2024 10:17040 Body mass index (BMI) [Ratio] 26.3 kg/m2 MD Christian Steiner Work Phone: [facility] 01-30-2024 10:17040 Body temperature 97.3 [degF] MD Christian Steiner Work Phone: [facility] 01-30-2024 10:17040 Body weight 73.93 kg MD Christian Steiner Work Phone: [facility] 01-30-2024 10:17-040 Heart rate 86 /min MD Christian Steiner Work Phone: [facility] 01-30-2024 10:17-0400 Respiratory rate 16 /min MD Christian Steiner Work Phone: [facility] 01-30-2024 10:17-0400 SaO2% (BldA) [Mass fraction] 96 % MD Christian Steiner Work Phone: [facility] 07-14-2023 11:29-0400 Body height 157.5 cm Lynsey Saldana MD Work Phone: [facility] 07-14-2023 11:29-0400 Body mass index (BMI) [Ratio] 30 kg/m2 Lynsey Saldana MD Work Phone: [facility] 07-14-2023 11:29-0400 Body weight 74.39 kg Lynsey Saldana MD Work Phone: [facility] 07-14-2023 11:29-0400 Diastolic blood pressure 84 mm[Hg] Lynsey Saldana MD Work Phone: [facility] 07-14-2023 11:29-0400 Heart rate 79 /min Lynsey Saldana MD Work Phone: [facility] 07-14-2023 11:29-0400 Systolic blood pressure 134 mm[Hg] Lynsey Saldana MD Work Phone: [facility] 01-21-2023 09:58-0400 Body temperature 97.2 [degF] MD Christian Steiner Work Phone: [facility] 01-21-2023 09:58-0400 Body weight 76.65 kg MD Christian Steiner Work Phone: [facility] 01-21-2023 09:58-0400 Diastolic blood pressure 78 mm[Hg] MD Christian Steiner Work Phone: [facility] 01-21-2023 09:58-0400 Heart rate 71 /min MD Christian Steiner Work Phone: [facility] 01-21-2023 09:58-0400 Respiratory rate 16 /min MD Christian Steiner Work Phone: [facility] 01-21-2023 09:58-0400 SaO2% (BldA) [Mass fraction] 98 % MD Christian Steiner Work Phone: [facility] 01-21-2023 09:58-0400 Systolic blood pressure 141 mm[Hg] MD Christian Steiner Work Phone: [facility] 01-21-2022 10:03-0400 Body height 167.64 cm MD Christian Steiner [facility] 01-21-2022 10:03-0400 Body weight 82.64 kg MD Christian Steiner [facility] 01-21-2022 10:03-0400 Diastolic blood pressure 78 mm[Hg] [facility] 10:03-0400 Heart rate 98 /min MD Christian Steiner [facility] 01-21-2022 10:03-0400 Respiratory rate 18 /min MD Christian Steiner [facility] 01-21-2022 10:03-0400 SaO2% (BldA) [Mass fraction] 98 % [facility] 01-21-2022 10:03-0400 Systolic blood pressure 122 mm[Hg] [facility] 01-21-2021 10:29-0400 Body temperature 98 [degF] MD Christian Steiner [facility] Encounters Encounter Date Encounter Type Care Provider Facility Start: 04-18-2024 End: 04-18-2024 ambulatory CK GONZALEZ Facility:[facility] Start: 04-18-2024 End: 04-18-2024 Patient encounter [...] Registered Recurring MD Tigre Steiner [facility] Work Phone: Start: 01-30-2024 End: 01-30-2024 ambulatory MD Christian Steiner Work Phone: [facility] Work Phone: Start: 01-30-2024 End: 01-30-2024 Patient encounter procedure MD Christian Ste[facility] Work Phone: Start: 12-19-2023 End: 12-19-2023 [...] Start: 10-17-2023 End: 10-17-2023 ambulatory ALESHA SCHULTE Facility:[facility] Start: 10-17-2023 End: 10-17-2023 Patient encounter procedure Alesha Schulte MD Work Phone: Ophthalmology Comment on above: Primary open-angle g laucoma, bilateral, mild stage (Primary Dx) Start: 09-05-2023 End: 09-05-2023 ambulatory ALESHA SCHLUTE Facility:[facility] Start: 09-05-2023 End: 09-05-2023 Patient encounter procedure Alesha Schulte MD Work Phone: Ophthalmology Comment on above: Primary open-angle g laucoma, bilateral, mild stage (Primary Dx) Start: 08-24-2023 End: 08-24-2023 ambulatory SARAHI PIERSON Not Available Start: 07-27-2023 End: 07-27-2023 ambulatory ALESHA SCHULTE Facility:[facility] Start: 07-27-2023 End: 07-27-2023 Patient encounter procedure Alesha Schulte MD Work Phone: Ophthalmology Comment on above: Primary open-angle g laucoma, bilateral, mild stage (Primary Dx) Start: 07-14-2023 End: 07-14-2023 ambulatory [facility] Dee RENY [facility] Start: 07-14-2023 End: 07-14-2023 Office outpatient visit 15 minutes Lynsey Saldana MD Work Phone: [facility] Comment on above: Lymphedema (Primary Dx) Start: 05-18-2023 Chart abstracting Jr. Todd Boudreaux DO Work Phone: [facility] Start: 05-18-2023 End: 05-18-2023 ambulatory TODD ANDREW Not Available Start: 01-21-2023 End: 01-21-2023 ambulatory MD Christian Steiner Work Phone: [facility] Work Phone: Start: 01-21-2023 End: 01-21-2023 Registered Recurring MD Christian Steiner Work Phone: [facility] Work Phone: Start: [...] End: 01-21-2022 Registered Recurring MD Christian Steiner [facility] Start: 01-03-2022 End: 02-01-2022 ambulatory [...] 09-28-2017 End: 09-29-2017 Patient encounter EMELY DOMENICO Facility:[facility] Start: 08-18-2017 Patient encounter procedure Christian Steiner Facility:[id number] Start: 03-31-2017 End: 04-01-2017 Patient encounter EMELY DOMENICO Facility:[facility] Start: 02-10-2017 End: 02-11-2017 Patient encounter EMELY DOMENICO Facility:[facility] Start: 01-28-2017 Ambulatory Pal Deshawn Facility:[facility] Procedures Date Procedure Procedure Detail Performing Clinician [...] Visit [facility] [address] [place] [address] Jr. Todd Boudreaux, DO [address] [address] [facility] Start: 01-22-2025 Screening for malign ant neoplasm of breast Mammogram Screening [facility] Start: 10-22-2024 End: 10-22-2024 Patient encounter procedure 10/22/2024 10:45 AM EDT Office Visit [facility] [address] [place], [place] [id number] Alesha Schulte MD [address] [place] [address] RTC: 6 Months Full OCT ON/GCA + HVF 24-2 [facility] Comment on above: RTC: [address] ON/GCA + HVF 24-2 [facility] Start: 07-13-2024 Adult BMI Screening Adult BMI Screen ing [facility] Start: 07-13-2024 Tobacco Screening Tobacco Screening [facility] Start: 07-12-2024 End: 07-12-2024 Patient encounter procedure 07/12/2024 8:30 AM EDT Office Visit [facility] [address] [place] [address] Lynsey Saldana MD [address], [facility] [address] [place] [address] [facility] Start: 04-18-2024 End: 04-18-2024 Patient encounter procedure 04/18/2024 10:30 AM EST Office Visit [facility] [address] [place] [address] Ck Gonzalez, OD [address] [place] [address] Return in about 6 months (around 04/18/2024) for VATA with TH. Ophthalmology Comment on above: Return in about 6 mo nths (around 04/18/2024) for VATA with TH. Start: 04-09-2024 End: 04-09-2024 Patient encounter procedure 04/09/2024 2:30 PM EST Office Visit [facility] [address] [place] [address] Dino George, PA [address] [place] [address] Acute pain of right shoulder (Primary Dx) [facility] Comment on above: Acute pain of right shoulder (Primary Dx) Start: 04-04-2024 Advance Directive Discussion Advance Directive Discussion [facility] Start: 01-21-2024 Screening for malign ant neoplasm of breast Mammogram Screening [facility] Start: 01-16-2024 End: 01-16-2024 Patient encounter procedure 01/16/2024 10:15 AM EDT [facility] [address] [place] [address] Dino George PA [address] [facility] [address] [place] [address] [facility] Start: 12-19-2023 End: 12-19-2023 Patient encounter procedure 12/19/2023 10:15 AM EDT [facility] [address] [place] [id number] Dino George PA [address] [facility] [address] [place] [address] Acute pain of right knee (Primary Dx); History of total knee replacement, right [facility] Comment on above: Acute pain of right knee (Primary Dx); History of total knee replacement, right Start: 12-04-2023 Covid-19 Vaccine ( season) Covid-19 Vaccine ( season) [facility] Start: 12-04-2023 Influenza vaccination [facility] Start: 10-17-2023 End: 10-17-2023 Patient encounter procedure 10/17/2023 1:15 PM EDT Office Visit [facility] [address] [place] [address] Alesha Schulte MD [address] [place] [address] Return for VATA. Ophthalmology Comment on above: Return for VATA. Start: 09-05-2023 End: 09-05-2023 Patient encounter procedure 09/05/2023 9:45 AM EDT Office Visit [facility] [address] [place] [address] Alesha Schulte MD [address] [place] [address] Return for slt od on a amonday next available Ophthalmology Comment on above: Return for slt od on a amonday next available Start: 05-18-2023 End: 05-18-2023 Patient encounter procedure 05/18/2023 10:15 AM EST Office Visit [facility] [address] [place] [id number] Jr. Todd Boudreaux C, DO [address] [place] [address] [facility] Start: 04-04-2023 Advance Directive Discussion Advance Directive Discussion [facility] Start: 04-04-2023 Behavioral Health Screening Behavioral Health Screening [facility] Start: 02-12-2023 Diabetes Screening Diabetes Screenin g [facility] Start: 12-03-2022 Covid-19 Vaccine ( season) Covid-19 Vaccine () [facility] Start: 12-03-2022 Influenza vaccination C [facility] Start: 04-04-2022 ADVANCE DIRECTIVE DISCUSSION ADVANCE DIRECTIVE DISCUSSION [facility] Start: 04-04-2022 [facility] Start: 12-03-2021 Influenza vaccination INFLUENZA (#1) [facility] Start: 04-04-2021 ADVANCE DIRECTIVE DISCUSSION ADVANCE DIRECTIVE DISCUSSION [facility] Start: 04-04-2021 DEPRESSION ASSESSMENT [facility] Start: 2017 BONE DENSITY BONE DENSITY [facility] Start: 2017 Bone Density Screening Bone Density Screening [facility] Start: 2017 Fall Risk Screening Fall Risk Screen ing [facility] Start: 2017 PNEUMOCOCCAL: 65+ (1 - PCV) PNEUMOCOCCAL: 65+ (1 - PCV) [facility] Start: 2017 Screening for osteoporosis Bone Density Screening [facility] Start: 11-13-2014 Administration of varicella zoster vaccine Zoster (Shingles) Vaccine (2 of 3) [facility] Start: 11-13-2014 SHINGRIX VACCINE (2 of 3) SHINGRIX VACCINE (2 of 3) [facility] Start: 2012 RSV Vaccine (1 - 1-d ose 60+ series) RSV Vaccine (1 - 1-dose 60+ series) [facility] Start: 2012 RSV Vaccine (1 - Ris k 60-74 years 1-dose series) RSV Vaccine (1 - Risk 60-74 years 1-dose series) [facility] Start: 2002 SHINGRIX VACCINE (1 of 2) SHINGRIX VACCINE (1 of 2) [facility] Start: 1997 COLOGUARD (FIT-DNA) COLOGUARD (FIT-D NA) [facility] Start: 1997 Colonoscopy COLONOSCOPY [facility] Start: 1997 COLORECTAL CANCER SCREENING COLORECTAL CANCER SCREENING [facility] Start: [address] COLONOGRAPHY [facility] Start: 1997 DIABETES SCREEN DIABETES SCREEN [facility] Start: 1997 Diabetes Screening Diabetes Screenin g [facility] Start: 1997 FECAL OCCULT BLOOD FECAL OCCULT BLOO D [facility] Start: 1997 Lipid 1996 panel - S amalia or Plasma Lipid Screening [facility] Start: 1997 Lipid panel Lipid Screening [facility] Start: 1997 LIPID SCREEN LIPID SCREEN [facility] Start: 1997 Screening for malign ant neoplasm of colon [facility] Start: 1997 SIGMOIDOSCOPY SIGMOIDOSCOPY [facility] Start: 1992 Mammography [facility] Start: 1982 Zoledronic acid therapy ALPHA- 1 ANTITRYPSIN DEFICIENCY SCREENING [facility] Start: 1971 DTaP,Tdap and Td Vaccines (1 - Tdap) DTaP,Tdap and Td Vaccines (1 - Tdap) [facility] Start: 1971 Urine microalbumin profile [facility] Start: 1970 Adult BMI Follow Up Plan Adult BMI Follow Up Plan [facility] Start: 1970 ANNUAL PCP TEAM RESERVOIR ENGINEERING MANAGER LYLE DISEASE VISIT ANNUAL PCP TEAM CHRONIC DISEASE VISIT [facility] Start: 1970 Anxiety Screening Anxiety Screening [facility] Start: 1970 Depression Screening Depression Scre ening [facility] Start: 1970 HEPATITIS C SCREENING HEPATITIS C [facility] Start: 1970 Hepatitis C screening Hepatitis C [facility] Start: 1970 SPIROMETRY SPIROMETRY [facility] Start: 1964 Depression Screening Depression Scre ening [facility] Start: 1952 COVID-19 VACCINE (#1) COVID-19 VACCI NE (#1) [facility] Start: 1950 Medicare Annual Well ness Visit Medicare Annual Wellness Visit [facility] MG Breast - left Screening [facility] MG Breast - left Screening [facility] MG Breast - left Screening [facility] XR Hip - right 3 Views XR hip ri ght 2 or 3 views Imaging Routine Acute right hip pain 12/19/2023 10:12 AM EDT [facility] Work Phone: [facility] [place] [facility] [place] Immunizations Immunization Date Immunization Notes Care Provider Fa cili 01-05-2020 influenza (HD-IIV4) vaccine, age 65+ yr, high dose, quadrivalent, PF (FLUZONE HIGH-DOSE) Alesha Schulte MD Work Phone: [facility] 01-05-2020 influenza virus vacc ine, unspecified formulation Alesha Schulte MD Work Phone: [facility] 01-25-2018 pneumococcal polysaccharide vaccine, 23 valent Alesha Schulte MD Work Phone: [facility] 10-20-2017 pneumococcal conjuga te vaccine, 13 valent Alesha Schulte MD Work Phone: [facility] 09-17-2015 pneumococcal polysaccharide vaccine, 23 valent Alesha Schulte MD Work Phone: [facility] 06-09-2015 influenza, injectabl e, quadrivalent, preservative free Alesha Schulte MD Work Phone: [facility] 09-18-2014 zoster vaccine, live Raji Schulte MD Work Phone: [facility] 09-18-2014 zoster vaccine, unspecified formulation Lynsey Saldana MD Work Phone: [facility] 01-30-2009 novel influenza-H1N1 -09, preservative-free, injectable Alesha Schulte MD Work Phone: [facility] Payers Date Payer Category Payer Private Health Insurance [employer] [id number] 2018 Unknown [id number] 2017 Medicare [id number] 2016 Self-pay [id number] 1959 Medicare [id number] 1959 Unknown [id number] 1952 Unknown [id number] 2.16.840.1.035318.3.579.2. 356 1952 Unknown [id number] 2.16.840.1.252148.3.579.2. 356 1952 Unknown [id number] 2.16.840.1.654101.3.579.2. 356 1952 Unknown [id number] 2.16.840.1.863799.3.579.2. 593 1952 Unknown [id number] 2.16.840.1.776016.3.579.2. 593 1952 Unknown [id number] 2.16.840.1.420753.3.579.2. 593 1952 Unknown [id number] 2.16.840.1.925963.3.579.2. 593 1952 Unknown [id number] 2.16.840.1.582759.3.579.2. 593 1952 Unknown [id number] 2.16.840.1.784785.3.579.2. 593 1952 Unknown [id number] 2.16.840.1.203120.3.579.2. 593 1952 Unknown [id number] 2.16.840.1.457653.3.579.2. 593 1952 Unknown [id number] 2.16.840.1.336945.3.579.2. 593 1952 Unknown [id number] 2.16.840.1.279130.3.579.2. 593 1952 Unknown [id number] 2.16.840.1.848588.3.579.2. 593 1952 Unknown [id number] 2.16.840.1.872886.3.579.2. 593 1952 Unknown [id number] 2.16.840.1.875096.3.579.2. 593 1952 Unknown [id number] 2.16.840.1.235657.3.579.2. 593 1952 Unknown [id number] 2.16.840.1.257253.3.579.2. 1286 1952 Unknown [id number] 2.16.840.1.286711.3.579.2. 1259 1952 Unknown [id number] 2.16.840.1.811388.3.579.2. 1259 1952 Unknown [id number] 2.16.840.1.352968.3.579.2. 1259 1952 Unknown [id number] 2.16.840.1.707476.3.579.2. 1259 1952 Unknown [id number] 2.16.840.1.422681.3.579.2. 1259 1952 Unknown [id number] 2.16.840.1.350899.3.579.2. 1259 Unknown [id number] Unknown [id number] 2.16.840.1.620182.3.579.2. 531 Social History Date Type Detail Facility Start: 01-21-2021 End: 03-25-2022 Tobacco smoking status NHIS Never smoked tobacco (finding) [facility] Start: 1950 Sex Assigned At Female [facility] Start: 02-27-2019 End: 03-25-2022 Tobacco use and exposure Smokeless tobacco non-user [facility] Start: 09-18-2019 End: 04-18-2024 Alcohol intake Current drinker of alcohol (finding) [facility] Start: 09-18-2019 History SDOH Alcohol Frequency 2 [facility] Start: 09-18-2019 History SDOH Alcohol Std Drinks 1 [facility] Start: 02-27-2019 Alcohol Comment a glass of wine once every 2-3 months [facility] Start: 1950 Sex Assigned At Not on file [facility] Start: 02-27-2019 End: 05-15-2020 History of Social function [facility] Start: 02-27-2019 End: 05-15-2020 Alcohol Use Disorder Identification Test - Consumption [AUDIT-C] [facility] Frequency of Alcohol Consumption Monthly or less [facility] Start: 09-25-2022 End: 04-09-2024 Alcohol intake Lifetime non-drinker (finding) [facility] Start: 09-25-2022 Alcohol Comment caffeine intake: 2-3 cups per day [facility] Start: 09-14-2022 Gender identity Identifies as female gender (finding) [facility] Start: 09-14-2022 Sexual orientation Heterosexual (finding) [facility] Start: 07-14-2023 Alcoholic beverage intake Ex-drinker (finding) [facility] Start: 01-17-2020 Alcohol Comment very rare [facility] Medical Equipment Procedure Code Equipment Code Equipment Origin al Text Equipment Identifier Dates Lens Acrysof Iq Toric 6mm +24.5 Diopter +6 Cylinder 0 D Biconvex Acrylic 13 - [id number] Start: 03-14-2019 Comment on above: Description: -0.57 Lens Acrysof Iq Toric Stableforce 6mm 0 D +22.5 Diopter +2.25 Cylinder - [id number] Start: 03-21-2019 Comment on above: Description: -0.80 Istent Inject - [id number] Start: 03-14-2019 Istent Inject - [id number] Start: 03-21-2019 Cmnt Bn Bio 40gm Rpl [id number] - Sna - [id number] Start: 02-12-2020 Ins Artc 3-5 E-F 11mm Kn Rt Ps - Sna - [id number]/ SNA, [id number] FDA Start: 02-12-2020 Cmpt Fem 5 Kn Rt Persona Strl - Sna - [id number] Start: 02-12-2020 Cmpt Ptlr 32mm Persona Alply - Sna - [id number] Start: 02-12-2020 Bsplt Tib 5d E K n Rt Stm - Sna - [id number] Start: 02-12-2020 Clinical Notes 01-04-2017 to 04-18-2024 Ck Gonzalez OD - 04/18/2024 11:06 AM BETO Grissom - 04/09/2024 2:30 PM BETO Grissom - 12/19/2023 10:15 AM Alesha Benítez MD - 10/17/2023 1:32 PM EDT Note Date & Type Note Facility 04-18-2024 Note HNO ID: [id number] Author: CK GONZALEZ OD Service: ? Author Type: SUPERVISOR OF RESEARCH Type: Progress Notes Filed: 04/18/2024 11:22 Note [...] Gonzalez, OD April 18, 2024 11:21 AM [facility] 04-18-2024 History of Present illness Narrative Tmax: [...] 2024 11:21 AM documented in this encounter [facility] 04-09-2024 History of Present illness Narrative Images from the original note were not included. HISTORY OF PRESENT ILLNESS: EST PT Myla Pollack is an 73 y.o. @ female. (EST PT) NEW COMPLAINT, (R) SHOULDER DISCOMFORT. SYMPTOMS FOR ABOUT 2 MONTHS, NO KNOWN INJURY. XRAYS 03/08/24 @ [facility] MRI, (R) SHOULDER & C-SPINE 04/02/24 @ [facility] INTERMITTENT RT DIFFUSE RT SHOULDER, ARM, [...] Use: Not At Risk (02/27/2019) Received from [facility], [facility] AUDIT-C Frequency of Alcohol Consumption: Monthly [...] requiring urgent evaluation. documented in this encounter [facility] 12-19-2023 History of Present illness Narrative [...] Use: Not At Risk (02/27/2019) Received from [facility], [facility] AUDIT-C Frequency of Alcohol Consumption: Monthly [...] requiring urgent evaluation. documented in this encounter [facility] 10-17-2023 Note HNO ID: [id number] Author: ALESHA SCHULTE MD Service: ? Author [...] No family history SLT. Right eye today durno w/o omplicatios Follow up 6months with TH [...] components. Alesha Schulte MD October 17, 2023 [facility] 10-17-2023 History of Present illness Narrative Tmax: [...] October 17, 2023 documented in this encounter [facility] 09-05-2023 Note Date of Procedure 09/05/2023 [place] Protocol Safety Checklist Sign In: A moment [...] Post-procedure follow up management communicated. No specimens. [facility] 09-05-2023 Note HNO ID: [id number] Author: ALESHA SCHULTE MD Service: ? Author [...] components. Alesha Schulte MD September 05, 2023 [facility] 09-05-2023 History of Present illness Narrative Tmax: [...] September 05, 2023 documented in this encounter [facility] 07-27-2023 Note Date of Procedure 07/27/2023. Life Skills Trainer Information Payroll Clerk: pd. Reliability Right Eye Good. Left Eye Good. Interpretation Right Eye Normal. Left Eye Normal. [facility] 07-27-2023 Note Date of Procedure 07/27/2023. Life Skills Trainer Information Payroll Clerk: JF. Quality Right Eye Good. Left Eye Good. NFL Interpretation Right Eye Superior loss. Left Eye Normal. [facility] 07-27-2023 Note HNO ID: [id number] Author: ALESHA SCHULTE MD Service: ? Author [...] agree with all of its relevant components. [facility] 07-27-2023 History of Present illness Narrative Tmax: [...] its relevant components. documented in this encounter [facility] 07-14-2023 Evaluation + Plan note Associated Problem(s): Lymphedema Compression therapy leg elevation and follow up in the clinic in 1 year. [facility] 07-14-2023 Miscellaneous Notes Associated Problem(s): Lymphedema Compression therapy leg elevation and follow up in the clinic in 1 year. documented in this encounter [facility] 07-14-2023 History of Present illness Narrative [...] 1 tablet by mouth in the morning. tvwxnbfpxs-cclpsvlcmuerv-voud (FIORICET, ESGIC) 50-325-40 mg per tablet Take [...] the evening. 5 mg M-W-F, 7.5 mg Dwu-Ipzr-Ghsxo-Sat . anastrozole (ARIMIDEX) 1 mg chemo tablet [...] hematuria Asthma COPD (chronic obstructive pulmonary disease) ([facility] [place]) Headache Hyperlipidemia Osteoarthritis right knee Pulmonary embolism ([facility]) Thrush top partial Vasculitis ([facility]) Visual impairment readers Past Surgical History: Past [...] Performed by Todd Boudreaux Jr., DO at [facility] Social and Family History: Social [...] Lynsey Saldana MD, TREVIN, RPVI, FSVS, FACS [facility] [employer] [facility] This note was created with the assistance of a speech recognition program. While intending to generate a timely document that accurately reflects the content of the visit, no guarantee can be provided that every grammatical or spelling mistake has been or will be identified or corrected. Thank you for your understanding. documented in this encounter [facility] 01-17-2023 History of Present illness Narrative [...] its relevant components. documented in this encounter [facility] 07-05-2022 History of Present illness Narrative [...] its relevant components. documented in this encounter [facility] 03-19-2022 Note PROCEDURE: XR WRIST RT MIN 3 V HISTORY: Unspecified fall ; acute right wrist pain after falling COMPARISON: None. FINDINGS: BONES:No fracture, acute abnormality, or significant arthropathy. SOFT TISSUES:No visible soft tissue swelling. EFFUSION:None visible. OTHER: Negative. IMPRESSION: 1. No acute bone abnormality. 2. Multifocal mild degenerative changes. Electronically authenticated by: ADIEL MCCONNELL Date: 2022-03-19 10:26 [facility] 03-11-2022 Miscellaneous Notes *SECOND ATTEMT* Called patient and LVM for her to call back and schedule an appt with for glaucoma suspect. Referral from Dr. Sebastian. Called patient and LVM to schedule an appointment with Dr. Schulte for GLC suspect. documented in this encounter [facility] 01-21-2022 Progress note Note Date/Time January 21, 2022 10:15[facility] [place] [address] Hem/Onc Follow Up Note - OP Signed Patient: Myla Pollack MR#: [id number] : 1950 Acct:[id number] Age/Sex: 71 / F Type: REG RCR [...] anastrozole, we will now follow annually ([facility] but patient wishes to return to oncology). We will arrange her annual follow-ups after her annual mammograms in January of each year. She also requested refill of breast prosthesis and mastectomy bra. No breast exam due to telephone visit. No skin changes or breast tenderness. No recent f/u by water manager in [place]--was reported to have vasculitis 4 years ago--now resolved but still has some mild erythema and swelling of left greater than right leg without pain. Receives Anastrozole due to weak PA expression--no significant myalgias/arthralgias or hot flashes. No [...] pT1c, N0, M0. Tumor was ER negative, PA weak, and HER-2 nonamplified. She underwent right mastectomy at [facility] in 02/2015. Completed dose dense AC X4 [...] years of adjuvant therapy. 3. Evaluated by water manager in [place] (does not believe she had vasculitis)--no recent [...] inflammatory. She was referred to pulmonary at [facility]. Ground glass opacities resolved on PET/CT 08/2017. [...] of Therapies: 1. Right breast mastectomy at [facility] (Dr. Rodriguez) in 02/2015. 2. Completed [...] nodes positive, pT1c, N0, M0. ER negative, PA weak, and HER-2 nonamplified. (1) Breast cancer, right Qualifiers: Estrogen receptor status: negative Patient sex: female 1. 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 ER negative, PA weak, and HER-2 nonamplified. 2. She underwent mastectomy at [facility] in 02/2015. Completed dose dense AC X4 and Taxol X 12 in August 2015. 3. 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 Anastrozole was resumed in 03/2017 4. Saw water manager in [place] for persistent leg pain and swelling (he [...] inflammatory. She was referred to pulmonary at [facility]. --Followup PET/CT 08/2017 showed resolution of prior [...] for coordination of care (as documented) and gnxg-tp-xapz counseling of patient and/or family. Dictated By: Claire Duran APRN DD/ [id number] Signed By: <Electronically signed by CHIDI Duran> 01/21/22 [address] [facility] Work Phone: 1(248) 385-300910-20-2021 Progress note Author Kacie Garay [facility] January 21, 2021 8:25pm Note Date/Time January 21, 2021 1 0:34am [facility] [place] [address] Hem/Onc Follow Up Note - OP Signed Patient: Myla Pollack MR#: [id number] : 1950 Acct:[id number] Age/Sex: 70 / F Type: REG RCR [...] normal on AI therapy. 07/21/2020: Video visit ([email or web address]) for 4-month follow-up and review of her [...] anastrozole, we will now follow annually ([facility] but patient wishes to return to oncology). We will arrange her annual follow-ups after her annual mammograms in January of each year. She also requested refill of breast prosthesis and mastectomy bra. No breast exam due to telephone visit. No skin changes or breast tenderness. No recent f/u by water manager in [place]--was reported to have vasculitis 4 years ago--now resolved but still has some mild erythema and swelling of left greater than right leg without pain. Receives Anastrozole due to weak PA expression--no significant myalgias/arthralgias or hot flashes. No [...] pT1c, N0, M0. Tumor was ER negative, PA weak, and HER-2 nonamplified. She underwent right mastectomy at [facility] in 02/2015. Completed dose dense AC X4 [...] years of adjuvant therapy. 3. Evaluated by water manager in [place] (does not believe she had vasculitis)--no recent [...] inflammatory. She was referred to pulmonary at [facility]. Ground glass opacities resolved on PET/CT 08/2017. [...] of Therapies: 1. Underwent right mastectomy at [facility] in 02/2015. 2. Completed dose dense AC [...] nodes positive, pT1c, N0, M0. ER negative, PA weak, and HER-2 nonamplified. (1) Breast cancer, right Qualifiers: Estrogen receptor status: negative Patient sex: female 1. 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 ER negative, PA weak, and HER-2 nonamplified. 2. She underwent mastectomy at [facility] in 02/2015. Completed dose dense AC X4 and Taxol X 12 in August 2015. 3. 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 Anastrozole was resumed in 03/2017 4. Saw water manager in [place] for persistent leg pain and swelling (he [...] for coordination of care (as documented) and ncee-bn-rnzc counseling of patient and/or family. Dictated By: Kacie Garay MD DD/ [id number] Signed By: <Electronically signed by MD Kacie Garay> 01/21/212024 [facility] Work Phone: 1(443) 515-556704-19-2021 Progress note Author Kacie Garay [facility] July 21, 2020 11:38am Note Date/Time July 21, 2020 9:3 9am [facility] at [address] [address] Hem/Onc Follow Up Note - OP Signed Patient: Myla Pollack MR#: [id number] : 1950 Acct:[id number] Age/Sex: 70 / F Type: REG RCR Copies to: Kenyetta Reynolds MD~ Subjective Date/Time of Service: Date of Service: 07/21/2020 Time of Service: 09:36 Chief Complaint: Patient has consented to doxy visit for 4 month follow up visitfor breast cancer and to review bone densitometry test. HPI: Patient had video visit ([email or web address]) today for 4-month follow-up and review of [...] anastrozole, we will now follow annually ([facility] but patient wishes to return to oncology). We will arrange her annual follow-ups after her annual mammograms in January of each year. She also requested refill of breast prosthesis and mastectomy bra. No breast exam due to telephone visit. No skin changes or breast tenderness. No recent f/u by water manager in [place]--was reported to have vasculitis 4 years ago--now resolved but still has some mild erythema and swelling of left greater than right leg without pain. Receives Anastrozole due to weak PA expression--no significant myalgias/arthralgias or hot flashes. No [...] pT1c, N0, M0. Tumor was ER negative, PA weak, and HER-2 nonamplified. She underwent right mastectomy at [facility] in 02/2015. Completed dose dense AC X4 [...] years of adjuvant therapy. 3. Evaluated by water manager in [place] (does not believe she had vasculitis)--no recent [...] inflammatory. She was referred to pulmonary at [facility]. Ground glass opacities resolved on PET/CT 08/2017. [...] of Therapies: 1. Underwent right mastectomy at [facility] in 02/2015. 2. Completed dose dense AC [...] nodes positive, pT1c, N0, M0. ER negative, PA weak, and HER-2 nonamplified. (1) Breast cancer, right Qualifiers: Estrogen receptor status: negative Patient sex: female 1. 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 ER negative, PA weak, and HER-2 nonamplified. 2. She underwent mastectomy at [facility] in 02/2015. Completed dose dense AC X4 and Taxol X 12 in August 2015. 3. 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 Anastrozole was resumed in 03/2017 4. Saw water manager in [place] for persistent leg pain and swelling (he [...] inflammatory. She was referred to pulmonary at [facility]. --Followup PET/CT 08/2017 showed resolution of prior [...] for coordination of care (as documented) and nijd-xq-fkab counseling of patient and/or family. Dictated By: Kacie Garay MD DD/ [id number] Signed By: <Electronically signed by MD Kacie Garay> 07/21/20 9[address] [facility] Work Phone: 1(674) 745-294812-09-2020 Progress note Author Kacie Garay [facility] March 12, 2020 2:49pm Note Date/Time March 12, 2020 9 :56am [facility] [place] [address] Hem/Onc Follow Up Note - OP Signed Patient: Myla Pollack MR#: [id number] : 1950 Acct:[id number] Age/Sex: 69 / F Type: REG RCR [...] or breast tenderness. No recent f/u by water manager in [place]--was reported to have vasculitis 4 years ago--now resolved but still has some mild erythema and swelling of left greater than right leg without pain. Receives Anastrozole due to weak PA expression--no significant myalgias/arthralgias or hot flashes. No [...] pT1c, N0, M0. Tumor was ER negative, PA weak, and HER-2 nonamplified. She underwent right mastectomy at [facility] in 02/2015. Completed dose dense AC X4 [...] of extended adjuvant therapy. 3. Evaluated by water manager in [place] (does not believe she had vasculitis)--no recent [...] inflammatory. She was referred to pulmonary at [facility]. Ground glass opacities resolved on PET/CT 08/2017. [...] of Therapies: 1. Underwent right mastectomy at [facility] in 02/2015. 2. Completed dose dense AC [...] lymph nodes positive, pT1c, N0,M0. ER negative, PA weak, and HER-2 nonamplified. 2. She underwent mastectomy at [facility] in 02/2015. Completed dose dense AC X4 and Taxol X 12 in August 2015. 3. 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 Anastrozole was resumed in 03/2017 4. Saw water manager in [place] for persistent leg pain and swelling (he [...] inflammatory. She was referred to pulmonary at [facility]. --Followup PET/CT 08/2017 showed resolution of prior [...] for coordination of care (as documented) and airf-ey-ngde counseling of patient and/or family. Dictated By: Kacie Garay MD DD/ [id number] Signed By: <Electronically signed by MD Kacie Garay> 03/12/20 9649 [facility] Work Phone: [phone]) 671-702006-03-2020 Progress note Author Kacie Garay [facility] September 05, 2019 1:07pm Note Date/Time September 05, 2019 10:57 am [facility] [place] [address] Hem/Onc Follow Up Note - OP Signed Patient: Myla Pollack MR#: [id number] : 1950 Acct:[id number] Age/Sex: 69 / F Type: REG RCR [...] or breast tenderness. No recent f/u by water manager in [place]--was reported to have vasculitis 3 years ago--now resolved but still has some mild erythema and swelling of left greater than right leg without pain. Receives Anastrozole due to weak PA expression--no significant myalgias/arthralgias or hot flashes. No [...] pT1c, N0, M0. Tumor was ER negative, PA weak, and HER-2 nonamplified. She underwent right mastectomy at [facility] in 02/2015. Completed dose dense AC X4 and Taxol X 12 in August 2015. 2. Anastrozole with calcium and vitamin D started in August 2015. Calcium and vitamin D discontinued 07/2016 Anastrozole stopped in 01/2017 when she developed vasculitis (erythematous rash over legs) although no proven association at this time. Anastrozole was resumed in 03/2017 3. Evaluated by water manager in [place] (does not believe she had vasculitis)--no recent [...] inflammatory. She was referred to pulmonary at [facility]. Ground glass opacities resolved on PET/CT 08/2017. [...] of Therapies: 1. Underwent right mastectomy at [facility] in 02/2015. 2. Completed dose dense AC [...] THE NEXT MAMMOGRAM. Impression dictated by: José Snadoval M.D.01/12/2019 10:46 AM Assessment and Plan (1) Breast cancer, right Qualifiers: Estrogen receptor status: negative Patient sex: female 1. 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 ER negative, PA weak, and HER-2 nonamplified. 2. She underwent mastectomy at [facility] in 02/2015. Completed dose dense AC X4 and Taxol X 12 in August 2015. 3. 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 Anastrozole was resumed in 03/2017 4. Saw water manager in [place] for persistent leg pain and swelling (he [...] inflammatory. She was referred to pulmonary at [facility]. --Followup PET/CT 08/2017 showed resolution of prior [...] vasculitis but per second opinion from a water manager and full stack software engineer in [place] this is not vasculitis. They told her [...] for coordination of care (as documented) and hcgt-bk-iygw counseling of patient and/or family. Dictated By: Kacie Garay MD DD/ 1056 Signed By: <Electronically signed by MD Kacie Garay> 09/05/19 1309 [facility] Work Phone: [phone] 954-583511-21-2019 History of Past illness Narrative* Problem Noted Date Resolved Date Combined forms of age-related cataract of both e yes 02/22/2019 03/21/2019 documented as of this encounter (statuses as of 03/11/2022) [facility]-21-2019 History of Past illness Narrative* Problem Noted Date Resolved Date Combined forms of age-related cataract of both e yes 02/22/2019 03/21/2019 documented as of this encounter (statuses as of 07/05/2022) [facility]-21-2019 History of Past illness Narrative* Problem Noted Date Diagnosed Date Resolved Date Combined forms of age-relate d cataract of both eyes 02/22/2019 03/21/2019 documented as of this encounter (statuses as of 01/17/2023) [facility]10-21-2019 Progress note Author Kacie Garay [facility] January 22, 2019 9:28pm Note Date/Time January 22, 2019 1 0:40am [facility] [place] [id number] Hem/Onc Follow Up Note - OP Signed Patient: Myla Pollack MR#: [id number] : 1950 Acct:[id number] Age/Sex: 68 / F Type: REG RCR [...] or breast tenderness. [facility]was reported to have vasculitis 2 1/2 years ago--now resolved. Receives Anastrozole due to weak PA expression--no significant myalgias/arthralgias or hot flashes. No bowel or bladder complaints. No interval changes in medical history. We reviewed DEXA scan showing normal bone density 07/17/2018. DIAGNOSIS: 1. 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 Tumor was ER negative, PA weak, and HER-2 nonamplified. She underwent right mastectomy at [facility] in 02/2015. Completed dose dense AC X4 and Taxol X 12 in August 2015. 2. Anastrozole with calcium and vitamin D started in August 2015. Calcium and vitamin D discontinued 07/2016 Anastrozole stopped in 01/2017 when she developed vasculitis (erythematous rash over legs) although no proven association at this time. Anastrozole was resumed in 03/2017 3. Evaluated by water manager in [place] (does not believe she had vasculitis)--no recent [...] inflammatory. She was referred to pulmonary at [facility]. Ground glass opacities resolved on PET/CT 08/2017. [...] of Therapies: 1. Underwent right mastectomy at [facility] in 02/2015. 2. Completed dose dense AC [...] nodes positive, pT1c, N0, M0. ER negative, PA weak, and HER-2 nonamplified. 2. She underwent mastectomy at [facility] in 02/2015. Completed dose dense AC X4 and Taxol X 12 in August 2015. 3. 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 Anastrozole was resumed in 03/2017 4. Saw water manager in [place] for persistent leg pain and swelling (he [...] inflammatory. She was referred to pulmonary at [facility]. --Followup PET/CT 08/2017 showed resolution of prior [...] vasculitis but per second opinion from a water manager and full stack software engineer in [place] this is not vasculitis. They told her [...] for coordination of care (as documented) and rvym-fv-ptbh counseling of patient and/or family. Dictated By: Kacie Garay MD DD/ 1039 Signed By: <Electronically signed by MD Kacie Garay> 01/22/19 0030 [facility] Work Phone: [phone] Progress note Author Kacie Garay [facility] July 19, 2018 8:36pm Note Date/Time July 19, 2018 10: 48am [facility] [place] [address] Hem/Onc Follow Up Note - OP Signed Patient: Myla Pollack MR#: [id number] : 1950 Acct:[id number] Age/Sex: 68 / F Type: REG RCR [...] pT1c, N0, M0. Tumor was ER negative, PA weak, and HER-2 nonamplified. She underwent right mastectomy at [facility] in 02/2015. Completed dose dense AC X4 and Taxol X 12 in August 2015. 2. Anastrazole with calcium and vitamin D started in August 2015, Calcium and vitamin D discontinued 07/2016 Anastrozole stopped in 01/2017 when she developed vasculitis (erythematous rash over legs) although no proven association at this time. Anastrozole was resumed in 03/2017 3. Evaluated by water manager in [place] (does not believe she had vasculitis)--no recent [...] inflammatory. She was referred to pulmonary at [facility]. Ground glass opacities resolved on PET/CT 08/2017. [...] or breast tenderness. No recent f/u by water manager [facility]--was reported to have vasculitis 2 years ago--now resolved. Receives Anastrozole due to weak PA expression--no significant myalgias/arthralgias or hot flashes. No bowel or bladder complaints. No interval changes in medical history. We reviewed DEXA scan showing normal bone density 07/17/2018. - Summary of Therapies Summary of Therapies: 1. Underwent right mastectomy at [facility] in 02/2015. 2. Completed dose dense AC [...] scan 07/17/2018 reviewed--normal. Annual bilateral mammography at [facility] 01/2018--ordered 6 month f/u mammogram prior to next f/u. Assessment and Plan (1) Breast cancer, right Qualifiers: Estrogen receptor status: negative Patient sex: female 1. 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 ER negative, PA weak, and HER-2 nonamplified. 2. She underwent mastectomy at [facility] in 02/2015. Completed dose dense AC X4 and Taxol X 12 in August 2015. 3. Anastrazole with calcium and vitamin D started in August 2015, Calcium and vitamin D discontinued 07/2016 Anastrozole stopped in 01/2017 when she developed vasculitis although there is no proven association at this time. Anastrozole was resumed in 03/2017 4. Seeing water manager in [place] for persistent leg pain and swelling (he [...] inflammatory. She was referred to pulmonary at [facility]. --Followup PET/CT 08/2017 showed resolution of prior [...] unless new symptoms arise. Annual mammogram at [facility] prior to next followup. DEXA normal--f/u in [...] vasculitis but per second opinion from a water manager and full stack software engineer in [place] this is not vasculitis. They told her [...] for coordination of care (as documented) and tqhh-cl-khlf counseling of patient and/or family. Dictated By: Kacie Garay MD DD/ 1041 Signed By: <Electronically signed by MD Kacie Garay> 07/19/18 2035 [facility] Work Phone: [phone] Progress note Author Kacie Garay [facility] January 18, 2018 8:17pm Note Date/Time January 17, 2018 3 :44pm [facility] at [address] [address] Hem/Onc Follow Up Note - OP Signed Patient: Myla Pollack MR#: [id number] : 1950 Acct:[id number] Age/Sex: 67 / F Type: REG RCR [...] pT1c, N0, M0. Tumor was ER negative, PA weak, and HER-2 nonamplified. She underwent right mastectomy at [facility] in 02/2015. Completed dose dense AC X4 and Taxol X 12 in August 2015. 2. Anastrazole with calcium and vitamin D started in August 2015, Calcium and vitamin D discontinued 07/2016 Anastrazole stopped in 01/2017 when she developed vasculitis although thereis no proven association at this time. Anastrozole was resumed in 03/2017 3. Now follows with rhematologist in [place] (does not believe she had vasculitis). 4. [...] inflammatory. She was referred to pulmonary at [facility]. Ground glass opacities resolved on PET/CT 08/2017. 5. A focus of increased uptake in the liver of uncertain significance was also identified. On MRI of the liver there was no abnormality found. HPI: Patient returns to the clinic for transfer of care from Dr. Steiner. No changes on self breast exam. No skin changes or breast tenderness. She is seeing a water manager in [place]--was reported to have vasculitis of legs about a yearago. Receives Anastrozole due to weak PA expression--no significant myalgias/arthralgias or hot flashes. No bowel or bladder complaints. - Summary of Therapies Summary of Therapies: 1. Underwent right mastectomy at [facility] in 02/2015. 2. Completed dose dense AC [...] % (Auto) 27.4 % (.) 01/03/17 17:45 Overton % (Auto) 12.7 % (.) 01/03/17 17:45 Eos % (Auto) 1.5 % (.) 01/03/17 17:45 Baso % (Auto) 0.6 % (.) 01/03/17 17:45 Neut # (Auto) 4.4 x10E3/uL (1.8-7.7) 01/03/17 17:45 Lymph # (Auto) 2.1 x10E3/uL (1.00-4.8) 01/03/17 17:45 Overton # (Auto) 1.0 x10E3/uL (0.0-0.8) H 01/03/17 [...] where applicable. 01/11/2018--left diagnostic mammogram reviewed from [facility] Left breast stable with scattered benign appearing calcifications and benign appearing lymph nodes. BIRADS 2--Benign findings. Assessment and Plan (1) Breast cancer, right Qualifiers: Estrogen receptor status: negative Patient sex: female Status: Chronic 1. 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 ER negative, PA weak, and HER-2 nonamplified. 2. She underwent mastectomy at [place] in 02/2015. Completed dose dense AC X4 and Taxol X 12 in August 2015. 3. Anastrazole with calcium and vitamin D started in August 2015, Calcium and vitamin D discontinued 07/2016 Anastrazole stopped in 01/2017 when she developed vasculitis although there is no proven association at this time. Anastrozole was resumed in 03/2017 4. Seeing water manager in [place] for persistent leg pain and swelling (he [...] inflammatory. She was referred to pulmonary at [facility]. Followup PET/CT 08/2017 showed resolution of prior [...] vasculitis but per second opinion from a water manager and full stack software engineer in [place] this is not vasculitis. They told her [...] for coordination of care (as documented) and gqqf-rr-emaj counseling of patient and/or family. 25 - 35 minutes Dictated By: Kacie Garay MD DD/ 1543 Signed By: <Electronically signed by Kacie Garay MD> 01/18/182016 [facility] Work Phone: [phone] Progress note Author Mohsen Steiner [facility] August 18, 2017 3:25pm Note Date/Time August 18, 2017 3:23p m [facility] [place] [id number] Hem/Onc Follow Up Note - OP Signed Patient: Myla Pollack MR#: [id number] : 1950 Acct:[id number] Age/Sex: 67 / F Type: REG RCR [...] % (Auto) 27.4 % (.) 01/03/17 17:45 Overton % (Auto) 12.7 % (.) 01/03/17 17:45 Eos % (Auto) 1.5 % (.) 01/03/17 17:45 Baso % (Auto) 0.6 % (.) 01/03/17 17:45 Neut # (Auto) 4.4 x10E3/uL (1.8-7.7) 01/03/17 17:45 Lymph # (Auto) 2.1 x10E3/uL (1.00-4.8) 01/03/17 17:45 Overton # (Auto) 1.0 x10E3/uL (0.0-0.8) H 01/03/17 [...] N0, M0. 2. Tumor was ER negative, PA weak, and HER-2 nonamplified. 3. She underwent mastectomy at [place] in 02/2015. Completed dose dense AC X4 [...] inflammatory. She was referred to pulmonary at [place] 8. A focus of increased uptake in [...] vasculitis but per second opinion from a water manager and full stack software engineer in [place] this is not vasculitis. They told her [...] for coordination of care (as documented) and ncua-vp-[id number] counseling of patient and/or family. Dictated By: Mohsen Steiner MD DD/ 151 Signed By: <Electronically signed by Mohsen Steiner MD> 08/18/17 1525 [facility] Work Phone: [phone] Progress note Author Mohsen Steiner [facility] July 21, 2017 3:44pm Note Date/Time July 21, 2017 3:4 0pm [facility] [place] [address] Hem/Onc Follow Up Note - OP Signed Patient: Myla Pollack MR#: [id number] : 1950 Acct:[id number] Age/Sex: 67 / F Type: REG RCR Copies to: Pinky Og DO~ Subjective Date/Time of Service: Date of Service: 07/21/2017 Time of Service: 15:39 Chief Complaint: Patient here for four month follow up appointment with labs. HPI: Patient returns to the clinic for a pre-scheduled follow-up visit that reports that 1. She saw a full stack software engineer and water manager in [place]. They do not think that she has [...] % (Auto) 27.4 % (.) 01/03/17 17:45 Overton % (Auto) 12.7 % (.) 01/03/17 17:45 Eos % (Auto) 1.5 % (.) 01/03/17 17:45 Baso % (Auto) 0.6 % (.) 01/03/17 17:45 Neut # (Auto) 4.4 x10E3/uL (1.8-7.7) 01/03/17 17:45 Lymph # (Auto) 2.1 x10E3/uL (1.00-4.8) 01/03/17 17:45 [place] # (Auto) 1.0 x10E3/uL (0.0-0.8) H 01/03/17 [...] N0, M0. 2. Tumor was ER negative, PA weak, and HER-2 nonamplified. 3. She underwent mastectomy at [place] in 02/2015. Completed dose dense AC X4 [...] inflammatory. She was referred to pulmonary at [place] 8. A focus of increased uptake in [...] vasculitis but per second opinion from a water manager and full stack software engineer in [place] this is not vasculitis. They told her [...] for coordination of care (as documented) and hcau-ql-sgty counseling of patient and/or family. Dictated By: Mohsen Steiner MD DD/ 1539 Signed By: <Electronically signed by Mohsen Steiner MD> 07/21/17 1542 [facility] Work Phone: [phone] Progress note Author Mohsen Steiner [facility] March 25, 2017 11:28am Note Date/Time March 25, 2017 11:27am [facility] [place] [address] Hem/Onc Follow Up Note - OP Signed Patient: Myla Pollack MR#: [id number] : 1950 Acct:[id number] Age/Sex: 66 / F Type: REG RCR Copies to: Pinky Og DO~ Subjective Date/Time of Service: Date of Service: 03/25/2017 Time of Service: 11:25 Chief Complaint: Patient is here to review MRI report and to follow up after seeing the rig operator. HPI: Patient returns to the clinic for a pre-scheduled follow-up visit that reports that 1. She was seen at [facility] rheumatology, and from there she was referred to a full stack software engineer in [place]. No final diagnosis has yet been made. 2. She had an MRI of the liver 3. She was seen by pulmonary in [facility] Details: All systems reviewed & no [...] % (Auto) 27.4 % (.) 01/03/17 17:45 [place] % (Auto) 12.7 % (.) 01/03/17 17:45 Eos % (Auto) 1.5 % (.) 01/03/17 17:45 Baso % (Auto) 0.6 % (.) 01/03/17 17:45 Neut # (Auto) 4.4 x10E3/uL (1.8-7.7) 01/03/17 17:45 Lymph # (Auto) 2.1 x10E3/uL (1.00-4.8) 01/03/17 17:45 [place] # (Auto) 1.0 x10E3/uL (0.0-0.8) H 01/03/17 [...] N0, M0. 2. Tumor was ER negative, PA weak, and HER-2 nonamplified. 3. She underwent mastectomy at [place] in 02/2015. Completed dose dense AC X4 [...] pulmonary (by her preference to a new rig operator at [facility]) 8. A focus of increased uptake in the liver of quasi-significance was also identified. On MRI of the liver there was no abnormality found (2) Pulmonary embolism Status: Chronic She is currently on warfarin (3) Vasculitis Status: Acute She is being seen by rheumatology at [facility]. (4) Lung nodules Status: Resolved Her [...] for coordination of care (as documented) and pwpo-tn-uvnw counseling of patient and/or family. Dictated By: Mohsen Steiner MD DD/ 1125 Signed By: <Electronically signed by Mohesn Steiner MD> 03/25/17 1128 [facility] Work Phone: [phone] Progress note Author Mohsen Steiner [facility] March 16, 2017 3:11pm Note Date/Time March 16, 2017 2:57pm [facility] [place] [address] Hem/Onc Follow Up Note - OP Signed Patient: Myla Pollack MR#: [id number] : 1950 Acct:[id number] Age/Sex: 66 / F Type: REG RCR Copies to: Pinky Og DO~ Subjective Date/Time of Service: Date of Service: 03/16/2017 Time of Service: 14:55 Chief Complaint: Patient is here for review of [employer] reports. HPI: Patient returns to the clinic for a pre-scheduled follow-up visit that reports that 1. She was seen at [facility] rheumatology, and from there she was referred to a full stack software engineer in [place]. No final diagnosis has yet been made [...] % (Auto) 27.4 % (.) 01/03/17 17:45 Overton % (Auto) 12.7 % (.) 01/03/17 17:45 Eos % (Auto) 1.5 % (.) 01/03/17 17:45 Baso % (Auto) 0.6 % (.) 01/03/17 17:45 Neut # (Auto) 4.4 x10E3/uL (1.8-7.7) 01/03/17 17:45 Lymph # (Auto) 2.1 x10E3/uL (1.00-4.8) 01/03/17 17:45 Overton # (Auto) 1.0 x10E3/uL (0.0-0.8) H 01/03/17 [...] N0, M0. 2. Tumor was ER negative, PA weak, and HER-2 nonamplified. 3. She underwent mastectomy at [place] in 02/2015. Completed dose dense AC X4 [...] pulmonary (by her preference to a new rig operator at [facility]) 8. A focus of increased uptake in the liver of quasi-significance was also identified. MRI of the liver has been requested (2) Pulmonary embolism Status: Chronic She is currently on warfarin (3) Vasculitis Status: Acute She was seen by rheumatology at [facility]. (4) Lung nodules Status: Acute Her [...] for coordination of care (as documented) and bzmi-tw-bixq counseling of patient and/or family. Dictated By: Mohsen Steiner MD DD/ 1455 Signed By: <Electronically signed by Mohsen Steiner MD> 03/16/17 9529 [facility] Work Phone: [phone] Progress note Author Mohsen Steiner [facility] February 28, 2017 2:51pm Note Date/Time February 28, 2017 2:29pm [facility] [place] [address] Hem/Onc Follow Up Note - OP Signed Patient: Myla Pollack MR#: [id number] : 1950 Acct:[id number] Age/Sex: 66 / F Type: REG RCR Copies to: Pinky Og DO~ Subjective Date/Time of Service: Date of Service: 02/28/2017 Time of Service: 14:26 Chief Complaint: Patient here to follow up after rheumatology referral. HPI: Patient returns to the clinic for a pre-scheduled follow-up visit that reports that 1. She was seen at [facility] rheumatology ROS Details: All systems reviewed [...] % (Auto) 27.4 % (.) 01/03/17 17:45 Overton % (Auto) 12.7 % (.) 01/03/17 17:45 Eos % (Auto) 1.5 % (.) 01/03/17 17:45 Baso % (Auto) 0.6 % (.) 01/03/17 17:45 Neut # (Auto) 4.4 x10E3/uL (1.8-7.7) 01/03/17 17:45 Lymph # (Auto) 2.1 x10E3/uL (1.00-4.8) 01/03/17 17:45 [place]ton # (Auto) 1.0 x10E3/uL (0.0-0.8) H 01/03/17 [...] N0, M0. 2. Tumor was ER negative, PA weak, and HER-2 nonamplified. 3. She underwent mastectomy at [place] in 02/2015. Completed dose dense AC X4 [...] Acute She was seen by rheumatology at [facility]. The ordered some initial workup that [...] for coordination of care (as documented) and bgcz-ga-vqgr counseling of patient and/or family. Dictated By: Mohsen Steiner MD DD/ 1426 Signed By: <Electronically signed by Mohsen Steiner MD> 02/28/17 1451 [facility] Work Phone: 1([phone]) 625-487211-02-2017 Progress note Author Mohsen Steiner [facility] February 03, 2017 9:03am Note Date/Time February 03, 2017 9 :01am [facility] [place] [id number] Hem/Onc Follow Up Note - OP Signed Patient: Myla Pollack MR#: [id number] : 1950 Acct:[id number] Age/Sex: 66 / F Type: REG RCR Copies to: Pinky Og DO~ Subjective Date/Time of Service: Date of Service: 02/03/2017 Time of Service: 08:58 Chief Complaint: Patient here to follow up after EGD and EUS. HPI: Patient returns to the clinic for a pre-scheduled follow-up visit that reports that 1. She had an EUS at [facility] by Dr. Tara Hess and no [...] % (Auto) 27.4 % (.) 01/03/17 17:45 Overton % (Auto) 12.7 % (.) 01/03/17 17:45 Eos % (Auto) 1.5 % (.) 01/03/17 17:45 Baso % (Auto) 0.6 % (.) 01/03/17 17:45 Neut # (Auto) 4.4 x10E3/uL (1.8-7.7) 01/03/17 17:45 Lymph # (Auto) 2.1 x10E3/uL (1.00-4.8) 01/03/17 17:45 [place] # (Auto) 1.0 x10E3/uL (0.0-0.8) H 01/03/17 [...] N0, M0. 2. Tumor was ER negative, PA weak, and HER-2 nonamplified. 3. She underwent mastectomy at [place] in 02/2015. Completed dose dense AC X4 [...] Status: Acute She was referred to the [facility] but her appointment is in April [...] for coordination of care (as documented) and tqcb-nf-nslx counseling of patient and/or family. Dictated By: Mohsen Steiner MD DD/ 0858 Signed By: <Electronically signed by Mohsen Steiner MD> 02/03/17 0903 [facility] Work Phone: [phone] Progress note Author Mohsen Steiner [facility] January 12, 2017 10:59pm Note Date/Time January 12, 2017 1 0:57pm [facility] [place] [address] Hem/Onc Follow Up Note - OP Signed Patient: Myla Pollack MR#: [id number] : 1950 Acct:[id number] Age/Sex: 66 / F Type: REG RCR Copies to: Pinky Og DO~ Subjective Date/Time of Service: Date of Service: 01/12/2017 Time of Service: 22:52 Chief Complaint: Patient is here to follow up PET scan results. HPI: Patient returns to the clinic for a pre-scheduled follow-up visit that reports that 1. She was diagnosed with vasculitis at [facility] 2. She was found to have [...] % (Auto) 27.4 % (.) 01/03/17 17:45 Overton % (Auto) 12.7 % (.) 01/03/17 17:45 Eos % (Auto) 1.5 % (.) 01/03/17 17:45 Baso % (Auto) 0.6 % (.) 01/03/17 17:45 Neut # (Auto) 4.4 x10E3/uL (1.8-7.7) 01/03/17 17:45 Lymph # (Auto) 2.1 x10E3/uL (1.00-4.8) 01/03/17 17:45 Overton # (Auto) 1.0 x10E3/uL (0.0-0.8) H 01/03/17 [...] N0, M0. 2. Tumor was ER negative, PA weak, and HER-2 nonamplified. 3. She underwent mastectomy at [place] in 02/2015. Completed dose dense AC X4 [...] We will be referring her to the [facility] for evaluation and management. (4) Lung [...] for coordination of care (as documented) and sdpk-lo-hcab counseling of patient and/or family. Dictated By: Mohsen Steiner MD DD/ 51 Signed By: <Electronically signed by Mohsen Steiner MD> 01/12/172258 [facility] Work Phone: [phone]) [phone] Progress note Author Mohsen Steiner [facility] January 05, 2017 4:45pm Note Date/Time January 05, 2017 4: 38pm [facility] [place] [address] Hem/Onc Follow Up Note - OP Signed Patient: Myla Pollack MR#: [id number] : 1950 Acct:[id number] Age/Sex: 66 / F Type: REG RCR cc: Pinky Og DO~ Subjective Date/Time of Service: Date of Service: 01/05/2017 Time of Service: 16:37 Chief Complaint: Patient is here for follow up to CT scan patient has been having ongoing vascular problems. HPI: Patient returns to the clinic for a pre-scheduled follow-up visit that reports that 1. She was diagnosed with vasculitis at [facility] 2. She was found to have [...] % (Auto) 27.4 % (.) 01/03/17 17:45 [place] % (Auto) 12.7 % (.) 01/03/17 17:45 Eos % (Auto) 1.5 % (.) 01/03/17 17:45 Baso % (Auto) 0.6 % (.) 01/03/17 17:45 Neut # (Auto) 4.4 x10E3/uL (1.8-7.7) 01/03/17 17:45 Lymph # (Auto) 2.1 x10E3/uL (1.00-4.8) 01/03/17 17:45 [place] # (Auto) 1.0 x10E3/uL (0.0-0.8) H 01/03/17 [...] N0, M0. 2. Tumor was ER negative, PA weak, and HER-2 nonamplified. 3. She underwent mastectomy at [place] in 02/2015. Completed dose dense AC X4 [...] that in November, she was admitted at [facility] and was diagnosed with vasculitis affecting [...] for coordination of care (as documented) and lfnq-me-tolf counseling of patient and/or family. Dictated By: Mohsen Steiner MD DD/ [id number] Signed By: <Electronically signed by Mohsen Steiner MD> 01/05/17 1648 [facility] Work Phone: [phone] 414-963510-03-2017 Progress note Author Jefferson Rice [facility] January 04, 2017 11:22am Note Date/Time January 04, 2017 11 :22am [facility] [place] [address] Hem/Onc Follow Up Note - OP Signed Patient: Myla Pollack MR#: [id number] : 1950 Acct:[id number] Age/Sex: 66 / F Type: REG RCR [...] for coordination of care (as documented) and zizz-bn-nuvu counseling of patient and/or family. Dictated By: Jefferson Rice MD DD/ 1120 Signed By: <Electronically signed by Jefferson Rice MD> 01/04/17 1129 [facility] Work Phone: Evaluation note* Diagnosis Onset Date Resolution Status Breast cancer, right chronic Encounter for monitoring anastrozole therapy chronic Osteoarthritis of knees, bilateral chronic Pulmonary embolism chronic Screening for osteoporosis c hronic Cutaneous leukocytoclastic angiitis resolved History of hypercalcemia res olved Hypercalcemia resolved Lung nodules resolved Neuropathy resolved Vasculitis resolved [facility] Work Phone: evaluation note* Diagnosis Primary open-angle glaucoma, bilateral, mild stage- Primary [facility] Diagnosis Primary open-angle glaucoma, bilateral, mild stage- Primary [facility] Diagnosis Primary open-angle glaucoma, bilateral, mild stage- Primary [facility] Diagnosis Primary open-angle glaucoma, bilateral, mild stage- Primary [facility]* Diagnosis Onset Date Resolution Status Breast cancer, right chronic Screening for osteoporosis c hronic Neuropathy resolved Breast cancer, right chronic Encounter for monitoring anastrozole therapy chronic Osteoarthritis of knees, bilateral chronic Pulmonary embolism chronic Screening for osteoporosis c hronic Cutaneous leukocytoclastic angiitis resolved History of hypercalcemia res olved Hypercalcemia resolved Lung nodules resolved Neuropathy resolved Vasculitis resolved [facility] Work Phone: evaluation note* Diagnosis Acute right hip pain- Primary Trochanteric bursitis of right hip Gluteal tendonitis of right buttock [facility] Diagnosis Acute pain of right shoulder- Primary Neck pain Cervicalgia [facility]* Diagnosis Primary open-angle glaucoma, bilateral, mild stage- Primary PCO (posterior capsular opacification), bilateral After-cataract, unspecified Dry eye syndrome of bilateral lacrimal glands Tear film insufficiency, unspecified [facility]* Diagnosis Lymphedema- Primary Other noninfectious lymphedema [facility] filed[facility]ed in [facility] Author Lynsey Land [facility] January 30, 2024 11:05am Note Date/Time January 30, 2024 1 0:16am [facility] [place] [address] Cancer Center Note Signed Patient: Myla Pollack MR#: [id number] : 1950 Acct:[id number] Age/Sex: 73 / F Type: DEP AMB Date of Service: 01/30/24 Copies to: Kenyetta Reynolds MD~ Assessment & Plan A/P (1) Breast cancer, right: Plan: Estrogen receptor status: negative Patient sex: female 1. 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 ER negative, PA weak, and HER-2 nonamplified. 2. She underwent mastectomy at [place] in 02/2015. Completed dose dense AC X4 and Taxol X 12 in August 2015. 3. 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 Anastrozole was resumed in 03/2017 4. Saw water manager in [place] for persistent leg pain and swelling (he [...] inflammatory. She was referred to pulmonary at [place]. --Followup PET/CT 08/2017 showed resolution of prior [...] changes on self breast exam. Screening left dzxzgitox80/19/2023 without recurrence. No systemic symptoms of recurrence, [...] of anastrozole, we will now follow annually [facility] wishes to return to [facility]). We will arrange her annual follow-ups after her annual mammograms in January of each year. She also requested refill of breast prosthesis and mastectomy bra. No breast exam due to telephone visit. No skin changes or breast tenderness. No recent f/u by water manager in [place]--was reported to have vasculitis 4 years ago--now resolved but still has some mild erythema and swelling of left greater than right leg without pain. Receives Anastrozole due to weak PA expression--no significant myalgias/arthralgias or hot flashes. No [...] pT1c, N0, M0. Tumor was ER negative, PA weak, and HER-2 nonamplified. She underwent right mastectomy at [place] in 02/2015. Completed dose dense AC X4 [...] years of adjuvant therapy. 3. Evaluated by water manager in [place] (does not believe she had vasculitis)--no recent [...] inflammatory. She was referred to pulmonary at [place]. Ground glass opacities resolved on PET/CT 08/2017. [...] of Therapies: 1. Right breast mastectomy at [facility] (Dr. Rodriguez) in 02/2015. 2. Completed [...] hx: breast cancer and go over mamogram. [facility] Social History Social History (Updated 01/30/24 @ 10:21 by Lora Huffman [facility]) Smoking status: Never smoker Within the [...] <Electronically signed by CHIDI Land> 01/30/24 1105 [facility] Work Phone: Summary Purpose Family [...] greater trochanteric bursa Dino George PA [address] [facility] [address] [place] [address] Referral ID Status Reason Start Date Expiration Date V isits Requested Visits Authorized [id number] Authorized 12/19/2023 06/16/2024 1 1 Additional Source Comments INFORMATION SOURCE (unrecogn ized section and content) DATE CREATED AUTHOR 09/27/2017 [facility] DATE CREATED AUTHOR AUTHOR'S ORGANIZ ATION 01/18/2018 [facility] DATE CREATED AUTHOR AUTHOR'S ORGANIZ ATION 08/05/2018 [facility] DATE CREATED AUTHOR AUTHOR'S ORGANIZ ATION 09/10/2022 [facility] DATE CREATED AUTHOR AUTHOR'S ORGANIZ ATION 07/15/2023 [facility] DATE CREATED AUTHOR AUTHOR'S ORGANIZ ATION 01/31/2024 [facility] DATE CREATED AUTHOR AUTHOR'S ORGANIZ ATION 04/15/2024 [facility] DATE CREATED AUTHOR AUTHOR'S ORGANIZ ATION 04/21/2024 [facility] Care Teams (unrecognized sec tion and content) [...] Kenyetta Reynolds MD Primary Care Provider Active Cargo Router Relationship Specialty Start Date End Date Kenyetta Reynolds MD [address] [place] [address] PCP - General Family Medicine 03/14/19 Cargo Router Relationship Specialty Start Date End Date Kenyetta Reynolds MD PCP - General Family Medicine 03/14/19 Cargo Router Relationship Specialty Start Date End Date Kenyetta Reynolds MD PCP - General Family Medicine 03/14/19 Cargo Router Relationship Specialty Start Date End Date Kenyetta Reynolds MD [address] [place] [address] PCP - General Family Medicine 09/15/22 Cargo Router Relationship Specialty Start Date End Date Kenyetta Reynolds MD PCP - General Family Medicine 03/14/19 Cargo Router Relationship Specialty Start Date End Date Kenyetta Reynolds MD PCP - General Family Medicine 03/14/19 Cargo Router Relationship Specialty Start Date End Date Kenyetta Reynolds MD PCP - General Family Medicine 03/14/19 Cargo Router Relationship Specialty Start Date End Date Kenyetta Reynolds MD [address] [place] [address] PCP - General Family Medicine 09/15/22 Cargo Router Relationship Specialty Start Date End Date Kenyetta Reynolds MD [address] [place] [address] PCP - General Family Medicine 09/15/22 Cargo Router Relationship Specialty Start Date End Date Kenyetta Reynolds MD [address] [place] [address] PCP - General Family Medicine 09/15/22 Cargo Router Relationship Specialty Start Date End Date Kenyetta Reynolds MD [address] [place] [address] PCP - General Family Medicine 09/15/22 Cargo Router Relationship Specialty Start Date End Date Kenyetta Reynolds MD [address] [place] [address] PCP - General Family Medicine 12/20/19 Goals [...] or prosecute any alcohol or drug abuse patient.[facility] the event this information is protected by the Federal Confidentiality of Alcohol and Drug Abuse Patient Records regulations: The Federal rules restrict any use of the information to criminally investigate or prosecute any alcohol or drug abuse patient.[facility] the event this information is protected by the Federal Confidentiality of Alcohol and Drug Abuse Patient Records regulations: The Federal rules restrict any use of the information to criminally investigate or prosecute any alcohol or drug abuse patient.[facility] the event this information is protected by the Federal Confidentiality of Alcohol and Drug Abuse Patient Records regulations: The Federal rules restrict any use of the information to criminally investigate or prosecute any alcohol or drug abuse patient.[facility] HospitalIn the event this information is protected by the Federal Confidentiality of Alcohol and Drug Abuse Patient Records regulations: The Federal rules restrict any use of the information to criminally investigate or prosecute any alcohol or drug abuse patient.[facility] HospitalIn the event this information is protected by the Federal Confidentiality of Alcohol and Drug Abuse Patient Records regulations: The Federal rules restrict any use of the information to criminally investigate or prosecute any alcohol or drug abuse patient.[facility] Hospital[facility] the event this information is protected by the Federal Confidentiality of Alcohol and Drug Abuse Patient Records regulations: The Federal rules restrict any use of the information to criminally investigate or prosecute any alcohol or drug abuse patient.[facility] Reason for Visit (unrecogniz ed section [...] BE BASED ON THE PRIMARY CLINICAL RECORDS. [employer] provides no warranty or guarantee of the accuracy or completeness of information in this document.
[2024-05-18 09:49] LABS: Alanine Aminotransferase 60 U/L (14-59); Albumin Level 3.7 g/dL (3.4-5.0); Alkaline Phosphatase 83 U/L (46-116); Aspartate Amino Transferase 36 U/L (15-37); Bilirubin Direct 0.1 mg/dL (0.0-0.2); Bilirubin Total 0.5 mg/dL (0.2-1.0); Globulin 3.7 g/dL; Total Protein 7.4 g/dL (6.4-8.2)
== END 2024-05-18 09:06 | disposition home or self-care (01) ==
LOC: LAB 09:14
PROVIDERS: PCP Family Medicine; Visit Provider Family Medicine
DX: R89.9 Unspecified abnormal finding in specimens from other organs, systems and tissues (principal)
CPT/HCPCS: 36415; 80076

== ENCOUNTER 2024-05-30 11:26 | Outpatient (OUT) | payer MEDICARE, OTHER, SELFPAY ==
--- OUTSIDE RECORDS SUMMARY | 2024-05-30 11:43 | XMS_ITS | CCD ---
Author Organization [facility] Care Team Providers Care Ios Developer Name Role Phone Demarco Hess Unavailable Unavailable [...] Provider MD Kenyetta Reynolds Primary Care Provider [phone] Kenyetta Reynolds MD Primary Care Provider [phone] Kenyetta Reynolds MD Primary Care Provider [phone] CORAWWAD, COVARRUBIAS H Attending Unavailable FAWWAD, COVARRUBIAS H [...] HOY ., DR KUMARI Primary Care Unavailable ZILAUREANOER, DR ADIEL Jauregui Consulting Unavailable MICHELLE ., [...] Provider MD Kenyetta Reynolds Primary Care Provider [phone] Kenyetta Reynolds MD Primary Care Provider LYNSEY SALDANA Attending Unavailable KENYETTA REYNOLDS Referring Unavailable KENYETTA REYNOLDS Primary Care Unavailable Kenyetta Reynolds MD Primary Care Provider MD Christian Steiner Other Provider MD Kacie Garay Attending Provider [phone] MD Kenyetta Reynolds Primary Care Provider [phone] Christian Steiner Consulting Unavailable Kacie Garay Admitting Unavailable Kacie Garay Attending Unavailable Kenyetta Reynolds Primary Care Unavailable JR. BOUDREAUX GEORGE C Attending Unavaila paulette BOUDREAUX JR., TODD [place] Referring Unavaila SARAHI Cuba Attending Unavailable KENYETTA REYNOLDS Referring Unavailable DINO GEORGE Attending Unavailable DINO GEORGE Referring Unavailable DINO GEORGE Attending Unavailable CK GONZALEZ Attending Unavailable KENYETTA REYNOLDS Primary Care Unavailable ALESHA SCHULTE Attending Unavailable KENYETTA REYNOLDS Primary Care Unavailable SCHULTE, ALESHA Referring Unavailable SCHULTE ALESHA Referring Unavailable ALESHA SCHULTE Attending Unavailable KENYETTA REYNOLDS Primary Care Unavailable ALESHA SCHULTE Attending Unavailable KENYETTA REYNOLDS Primary Care Unavailable Kenyetta Reynolds MD Primary Care Provider [phone] Nicho FERGUSON, Lizzie Little Attending Unavailable Allergies Allergy Classification Reported Allergen(s) Allergy Type Date of Onset Reaction(s) Facility Sulfonamides (antibiotic) (1 source) Sulfonamides (Antibiotic) Drug Allergy 9 Unknown [facility] (17 sources) Sulfonamides (Antibiotic); 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: [SULFA (SULFONAMIDE ANTIBIOTICS)] Drug Allergy 9 Unknown [facility] (1 source) Sulfonamides (Antibiotic) Drug allergy (disorder) 5 [facility] (8 sources) Sulfamethoxazole / Trimethoprim Drug Allergy 1 Unknown [facility] (1 source) Sulfonamides (Antibiotic) Drug allergy (disorder) 4 [facility] Medications Current Medications Medication Drug [...] by mouth every six hours as needed knaocrfuij-nhgtpdntchido-dlowhlwn 50-325 -40 MG tablet Take 1 tablet by mouth every 6 (six) hours if needed. 0 Active End: 01-17-2023 acetaminophen 325 mg-caffein e 40 mg-butalbital 50 mg (FIORICET) per tablet sdoamgtfhy-ajkbgswiavehf-nynxowoy 50 mg-325 mg-40 mg tablet 0 01/17/2023 [...] Oral Daily July 19, 2018 10:42am 07-19-2018 [facility] ([id number]) 07/19/2018 Active take 1 tablet by mouth in the mo rning cholecalciferol (D3-5) 5,000 Units tablet Take 5,000 Units by mouth in the morning. Active Comment on above: Cholecalciferol Chol ecalciferol (Vitamin D3) Active 1000 UNIT Oral Daily July 19, 2018 10:42am 07-19-2018 [facility] ([id number]) CHONDROITIN SULFATE A ORAL (14 sources) take [...] 07/28/2023 Active Fluticasone Furoate-Vilanterol (1 source) Start: Fluticasone Furoate-Vilantero l (Breo Ellipta) 50-25 mcg/dose [...] Twice daily March 25, 2017 10:57am 03-25-2017 [facility] ([id number]) 03/25/2017 Active Comment on above: Linseed Oil Flaxseed Oil Active 1000 MG Oral Twice daily March 25, 2017 10:57am 03-25-2017 [facility] ([id number]) Magnesium (16 sources) take 1 mg by [...] Oral Daily January 05, 2017 3:53pm 01-05-2017 [facility] ([id number]) 01/05/2017 Active Comment on above: Magnesium Oxide Magn esium Oxide Active 250 MG Oral Daily January 05, 2017 3:53pm 01-05-2017 [facility] ([id number]) montelukast 10 mg oral tablet (19 sources) [...] Tablet Discontinued 15 MG PO Twice daily 42 January 04, 2017 12:00am January 05, 2017 [...] puff(s) by inhalation every twenty-four hours Tiotropium [place] (Spiriva Respimat) 2.5 mcg/actuation Mist Discontinued 2 PUFF INHALATION Q24H January 05, 2017 12:00am October 28th, 2024 10:18am tiotropium (SPIR EUNICE RESPIMAT) 2.5 [...] 3 01-21-2022 Episodic Other aftercare (1 source) 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; 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] Onset: 3 Episodic Other [...] (1 source) Unknown / UNK(Unknown) Onset: 7 Past or Other Problems Problem Classification Problem [...] sources) Long-term current use of anticoagulant; 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: [group home (current) use of anticoagulants] Onset: 02-02-2019 Resolved: 09-14-2022 07-05-2022 Episodic Other aftercare (15 sources) Long-term current use of drug therapy; 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: [Other usp (current) drug therapy] Onset: 03-22-2022 Resolved: 09-14-2022 07-05-2022 Episodic Other aftercare (1 source) Other usp (current) drug therapy; 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: [OTH ALF CURRENT DRUG THERAPY] Onset: 03-22-2022 Episodic Other [...] 07-05-2022 Episodic Unclassified (1 source) HEALTH MAINTENANCE 56580 Z00.00 Onset: 01-28-2017 Urinary tract infections (8 sources) Acute cystitis; 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: [Acute cystitis without hematuria] Onset: 10-19-2019 Resolved: 06-13-2023 06-13-2023 Episodic Results Test Name Value Interpretation Reference Range Facility MM screening mammo LT w/CADo n 01-23-2024 MM screening mammo LT w/CAD [facility] [place] [address] [place] [address] Mammography Report Signed Patient: Myla Pollack MR#: [id number] : 1950 Acct:[id number] Age/Sex: 73 / F ADM Date: 01/23/24 Loc: Room: Type: [facility] RCR Attending Dr: Kacie Garay MD Copies to: [...] José Sandoval M.D.01/23/2024 10:09 AM Dictation Location: [facility] Transcribed By: [facility] 01/23/24 1009 Dictated By: José Sandoval DO 01/23/24 1008 Signed By: 01/23/24 1009 Normal [facility] No Panel Informationon [...] and draped in the usual sterile fashion. [facility] LASER TRABECULOPLASTY OD (RI GHT EYE)on 09-05-2023 [facility] OCT OPTIC NERVE CIRRUS OU (B OTH EYES)on 07-27-2023 [facility] Radiology Study observation (narrative) [facility] VISUAL FIELD 24-2 OU (BOTH E YES)on 07-27-2023 [facility] Radiology Study observation (narrative) [facility] MRI WRIST RT WO CONon 2022 [...] DINO GREGORY Date: 2022-06-20 13:14 Normal [facility] INSULINon 04-29-2022 Insulin 15.6 uIU/mL Normal 2.6-24.9 [facility] Comment on above: Performed By: #### I NSULIN #### [facility] [address] [place] [address] Dr. Marizol Macedo CBC AUTO DIFFon 04-28-2022 BASO # 0.0 103/ul Normal 0.0-0.1 [facility] Comment on above: Performed By: #### C BC #### [facility] [address] [place] [address] Dr. Marizol Macedo Basophils/100 WBC (Bld) 0.3 % Normal 0.2-2.0 [facility] Comment on above: Performed By: #### C BC #### [facility] [address] [place] [address] Dr. Marizol Macedo EO # 0.1 103/ul Normal 0.0-0.7 [facility] Comment on above: Performed By: #### C BC #### [facility] [address] [place] [address] Dr. Marizol Macedo Eosinophils/100 WBC (Bld) 1.0 % Normal 0.9-7.0 [facility] Comment on above: Performed By: #### C BC #### [facility] [address] [place] [address] Dr. Marizol Macedo Erythrocyte distribution width (RBC) [Ratio] 12.6 % Normal 11.0-15.0 [facility] Comment on above: Performed By: #### C BC #### [facility] [address] [place] [address] Dr. Marizol Macedo Hematocrit (Bld) [Volume fraction] 43.4 % Normal 36.0-48.0 [facility] Comment on above: Performed By: #### C BC #### [facility] [address] [place] [address] Dr. Marizol Macedo Hemoglobin (Bld) [Mass/Vol] 14.1 g/dL Normal 12.0-16.0 [facility] Comment on above: Performed By: #### C BC #### [facility] [address] [place] [address] Dr. Marizol Macedo IG # 0.02 10e3/ul Normal 0.00-0.03 [facility] Comment on above: Performed By: #### C BC #### [facility] [address] [place] [address] Dr. Marizol Macedo IG % 0.3 % Normal 0.0-0.5 [facility] Comment on above: Performed By: #### C BC #### [facility] [address] [place] [address] Dr. Marizol Macedo LYMPH # 2.4 103/ul Normal 1.2-3.8 [facility] Comment on above: Performed By: #### C BC #### [facility] [address] [place] [address] Dr. Marizol Macedo Lymphocytes/100 WBC (Bld) 30.9 % Normal 20.5-60.0 [facility] Comment on above: Performed By: #### C BC #### [facility] [address] [place] [address] Dr. Marizol Macedo MANUAL DIFF REQ NO Normal [facility] Comment on above: Performed By: #### C BC #### [facility] [address] [address] [address] Marizol Macedo MCH (RBC) [Entitic mass] 30.7 pg Normal 26.7-34.0 [facility] Comment on above: Performed By: #### C BC #### [facility] [address] [place] [address] Dr. Marizol Macedo MCHC (RBC) [Mass/Vol] 32.5 g/dL Normal 29.9-35.2 [facility] Comment on above: Performed By: #### C BC #### [facility] [address] [place] [address] Dr. Marizol Macedo MCV (RBC) [Entitic vol] 94.3 fL Normal 81.0-99.0 [facility] Comment on above: Performed By: #### C BC #### [facility] [address] [place] [address] Dr. Marizol Macedo MONO # 0.4 103/ul Normal 0.3-0.8 [facility] Comment on above: Performed By: #### C BC #### [facility] [address] [place] [address] Dr. Marizol Macedo Monocytes/100 WBC (Bld) 5.4 % Normal 1.7-12.0 [facility] Comment on above: Performed By: #### C BC #### [facility] [address] [place] [address] Dr. Marizol Macedo NEUT # 4.9 103/ul Normal 1.4-6.5 [facility] Comment on above: Performed By: #### C BC #### [facility] [address] [place] [address] Dr. Marizol Macedo Neutrophils/100 WBC (Bld) 62.1 % Normal 43.0-75.0 [facility] Comment on above: Performed By: #### C BC #### [facility] [address] [place] [address] Dr. Marizol Macedo Platelet mean volume (Bld) [Entitic vol] 10.2 fL Normal 9.5-13.5 [facility] Comment on above: Performed By: #### C BC #### [facility] [address] [address] [address] Marizol Macedo PLT 279 103/ul Normal 150-450 [facility] Comment on above: Performed By: #### C BC #### [facility] [address] [address] [address] Marizol Macedo RBC 4.60 106/ul Normal 4.20-5.40 [facility] Comment on above: Performed By: #### C BC #### [facility] [address] [place] [address] Dr. Marizol Macedo WBC 7.8 103/ul Normal 4.0-11.0 [facility] Comment on above: Performed By: #### C BC #### [facility] [address] [place] [address] Dr. Marizol Macedo FREE THYROXINE INDEX T7on FTI 3.50 Normal 1.30-4.50 [facility] Comment on above: Performed By: #### L IPID, T7, CMP, TSH #### [facility] [address] [place] [address] Dr. Marizol Macedo T3U 35.0 % Normal 30.0-39.0 [facility] Comment on above: Performed By: #### L IPID, T7, CMP, TSH #### [facility] [address] [place] [address] Dr. Marizol Macedo T4 [Mass/Vol] 10.00 ug/dL Normal 4.80-13.90 [facility] Comment on above: Performed By: #### L IPID, T7, CMP, TSH #### [facility] [address] [place] [address] Dr. Marizol Macedo GLYCOHEMOGLOBIN A1Con 2022 ADA RECOMMENDATION SEE BELOW Normal [facility] Comment on above: Result Comment: ADA RECOMMENDED LIMIT 4.0 - 6.0 ADA THERAPEUTIC TARGET < 7.0 ACTION SUGGESTED > 7.0 Performed By: #### A 1C #### [facility] [address] [place] [address] Dr. Marizol Macedo Glucose [Mass/Vol] 114 mg/dL Normal [facility] Comment on above: Performed By: #### A 1C #### [facility] [address] [place] [address] Dr. Marizol Macedo HbA1c (Bld) [Mass fraction] 5.6 % Normal 4.5-6.2 [facility] Comment on above: Performed By: #### A 1C #### [facility] [address] [place] [address] Dr. Marizol Macedo IRONon 04-28-2022 Iron [Mass/Vol] 136.0 ug/dL Normal 50.0-170.0 [facility] Comment on above: Performed By: #### I CECELIA #### [facility] [address] [place] [address] Dr. Marizol Macedo LIPID PROFILEon 04-28-2022 CHOL-HDL RATIO NORM SEE BELOW Normal [facility] Comment on above: Result Comment: 3.3 - 4.4 LOW RISK 4.4 - 7.1 AVERAGE RISK 7.1 - 11.0 MODERATE RISK >11.0 HIGH RISK Performed By: #### L IPID, T7, CMP, TSH #### [facility] [address] [place] [address] Dr. Marizol Macedo Cholesterol [Mass/Vol] 134 mg/dL Normal <=200 [facility] Comment on above: Performed By: #### L IPID, T7, CMP, TSH #### [facility] [address] [place] [address] Dr. Marizol Macedo Cholesterol in HDL [Mass/Vol] 69 mg/dL Critically high 40-60 [facility] Comment on above: Performed By: #### L IPID, T7, CMP, TSH #### [facility] [address] [place] [address] Dr. Marizol Macedo Cholesterol in LDL [Mass/Vol] 46.6 mg/dL Normal [facility] Comment on above: Performed By: #### L IPID, T7, CMP, TSH #### [facility] [address] [place] [address] Dr. Marizol Macedo Cholesterol.total/Ch olesterol in HDL [Mass ratio] 1.9 {ratio} Normal [facility] Comment on above: Performed By: #### L IPID, T7, CMP, TSH #### [facility] [address] [address] [address] Marizol Macedo HDL NORMAL > or = 60 mg/dl - LO W CARDIOVASCULAR RISK <40 mg/dl - HIGH CARDIOVASCULAR RISK Normal [facility] Comment on above: Performed By: #### L IPID, T7, CMP, TSH #### [facility] [address] [address] [address] Marizol Macedo LDL CALC NORMAL SEE BELOW Normal [facility] Comment on above: Result Comment: <100 mg/dl OPTIMAL 100 - 129 mg/dl NEAR OR ABOVE OPTIMAL 130 - 159 mg/dl BORDERLINE HIGH 160 - 189 mg/dl HIGH >190 mg/dl VERY HIGH Performed By: #### L IPID, T7, CMP, TSH #### [facility] [address] [address] [address] Marizol Macedo Triglyceride [Mass/Vol] 92 mg/dL Normal <=150 [facility] Comment on above: Performed By: #### L IPID, T7, CMP, TSH #### [facility] [address] [address] [address] Marizol Macedo VLDL CALC 18.4 mg/dL Normal [facility] Comment on above: Performed By: #### L IPID, T7, CMP, TSH #### [facility] [address] [address] [address] Marizol Macedo PROF 14(COMP METB)on 023 Albumin [Mass/Vol] 3.9 g/dL Normal 3.4-5.0 [facility] Comment on above: Performed By: #### L IPID, T7, CMP, TSH #### [facility] [address] [address] [address] Marizol Macedo Albumin/Globulin [Mass ratio] 1.1 {ratio} Normal [facility] Comment on above: Performed By: #### L IPID, T7, CMP, TSH #### [facility] [address] [address] [address] Marizol Macedo ALP [Catalytic activity/Vol] 97 U/L Normal 46-116 [facility] Comment on above: Performed By: #### L IPID, T7, CMP, TSH #### [facility] [address] [place] [address] Dr. Marizol Macedo ALT [Catalytic activity/Vol] 57 U/L Normal 14-59 [facility] Comment on above: Performed By: #### L IPID, T7, CMP, TSH #### [facility] [address] [place] [address] Dr. Marizol Macedo Anion gap [Moles/Vol] 11.9 mmol/L Normal [facility] Comment on above: Performed By: #### L IPID, T7, CMP, TSH #### [facility] [address] [place] [address] Dr. Marizol Macedo AST [Catalytic activity/Vol] 35 U/L Normal 15-37 [facility] Comment on above: Performed By: #### L IPID, T7, CMP, TSH #### [facility] [address] [place] [address] Dr. Marizol Macedo Bilirubin [Mass/Vol] 0.6 mg/dL Normal 0.2-1.0 [facility] Comment on above: Performed By: #### L IPID, T7, CMP, TSH #### [facility] [address] [place] [address] Dr. Marizol Macedo Calcium [Mass/Vol] 9.8 mg/dL Normal 8.5-10.1 [facility] Comment on above: Performed By: #### L IPID, T7, CMP, TSH #### [facility] [address] [address] [address] Marizol Macedo Chloride [Moles/Vol] 103 mmol/L Normal 98-107 [facility] Comment on above: Performed By: #### L IPID, T7, CMP, TSH #### [facility] [address] [place] [address] Dr. Marizol Macedo CO2 [Moles/Vol] 28.0 mmol/L Normal 21.0-32.0 [facility] Comment on above: Performed By: #### L IPID, T7, CMP, TSH #### [facility] [address] [address] [address] Marizol Macedo Creatinine [Mass/Vol] 0.75 mg/dL Normal 0.55-1.02 [facility] Comment on above: Performed By: #### L IPID, T7, CMP, TSH #### [facility] [address] [place] [address] Dr. Marizol Macedo EGFR-AF GERMAN >60 Normal >=60 [facility] Comment on above: Performed By: #### L IPID, T7, CMP, TSH #### [facility] [address] [place] [address] Dr. Marizol Macedo EGFR-NON AF GERMAN >60 Normal >=60 [facility] Comment on above: Performed By: #### L IPID, T7, CMP, TSH #### [facility] [address] [place] [address] Dr. Marizol Macedo Globulin (S) [Mass/Vol] 3.5 g/dL Normal [facility] Comment on above: Performed By: #### L IPID, T7, CMP, TSH #### [facility] [address] [place] [address] Dr. Marizol Macedo Glucose [Mass/Vol] 91 mg/dL Normal 74-106 [facility] Comment on above: Performed By: #### L IPID, T7, CMP, TSH #### [facility] [address] [place] [address] Dr. Marizol Macedo Potassium [Moles/Vol] 3.9 mmol/L Normal 3.5-5.1 [facility] Comment on above: Performed By: #### L IPID, T7, CMP, TSH #### [facility] [address] [place] [address] Dr. Marizol Macedo Protein [Mass/Vol] 7.4 g/dL Normal 6.4-8.2 [facility] Comment on above: Performed By: #### L IPID, T7, CMP, TSH #### [facility] [address] [address] [address] Marizol Macedo Sodium [Moles/Vol] 139 mmol/L Normal 136-145 [facility] Comment on above: Performed By: #### L IPID, T7, CMP, TSH #### [facility] [address] [place] [address] Dr. Marizol Macedo Urea nitrogen [Mass/Vol] 13.0 mg/dL Normal 7.0-18.0 [facility] Comment on above: Performed By: #### L IPID, T7, CMP, TSH #### [facility] [address] [place] [address] Dr. Marizol Macedo Urea nitrogen/Creatinine [Mass ratio] 17.3 mg/mg Normal [facility] Comment on above: Performed By: #### L IPID, T7, CMP, TSH #### [facility] [address] [place] [address] Dr. Marizol Macedo TSHon 04-28-2022 TSH 1.306 uIU/mL Normal 0.358-3.740 [facility] Comment on above: Performed By: #### L IPID, T7, CMP, TSH #### [facility] [address] [place] [address] Dr. Marizol Macedo CBC W/DIFFon 09-28-2017 ABS BASOPHILS 0.0 10*3/uL Normal 0.0-0.2 [facility] Comment on above: Performed By: #### 4 180, [id number] ####[facility] ABS IMM GRANS 0.0 10*3/uL Normal 0.0-0.2 [facility] Comment on above: Performed By: #### 4 180, 44286 ####[facility] ABS NEUTROPHILS 2.8 10*3/uL Normal 1.6-7.6 [facility] Comment on above: Performed By: #### 4 180, 94868 ####[facility].[address] Basophils Auto #/vol (Bld) 0.5 % Normal 0.0-1.0 [facility] Comment on above: Performed By: #### 4 180, [address] ####[address] [place] [address] [facility].[address] Eosinophils Auto #/vol (Bld) 0.1 10*3/uL Normal 0.0-0.5 [facility] Comment on above: Performed By: #### 4 1801, 97903 ####[address] Eosinophils/100 WBC Auto (Bld) 2.3 % Normal 0.0-6.0 [facility] Comment on above: Performed By: #### 4 1801, 67627 ####[address] Erythrocyte distribution width Auto Ratio (RBC) 12.9 % Normal 11.5-15.0 [facility] Comment on above: Performed By: #### 4 1801, 41670 ####[place] [address] [facility].[address] Hematocrit Auto Volume Fraction (Bld) 42.9 % Normal 36.0-45.0 [facility] Comment on above: Performed By: #### 4 1801, 70605 ####[place] [address] [facility].[address] Hemoglobin mass conc (Bld) 14.1 g/dL Normal 12.0-15.0 [facility] Comment on above: Performed By: #### 4 180, 90825 ####[address] IMMATURE GRANS 0.3 % Normal 0.0-1.0 [facility] Comment on above: Performed By: #### 4 180, 11366 ####[facility].[address] Lymphocytes Auto #/vol (Bld) 2.4 10*3/uL Normal 1.2-4.0 [facility] Comment on above: Performed By: #### 4 1801, 10501 ####[facility].[address] Lymphocytes/100 WBC Auto (Bld) 39.5 % Normal 20.0-45.0 [facility] Comment on above: Performed By: #### 4 1801, 86770 ####[facility] [facility].[address] MCH Auto Entitic mass (RBC) 30.3 pg Normal 27.0-33.0 [facility] Comment on above: Performed By: #### 4 1801, 55879 ####[place] [address] [facility].[address] MCHC Auto mass conc (RBC) 32.9 g/dL Normal 32.0-35.0 [facility] Comment on above: Performed By: #### 4 1801, 15883 ####[facility] [facility].[address] MCV Auto Entitic volume (RBC) 92.3 fL Normal 82.0-98.0 [facility] Comment on above: Performed By: #### 4 1801, 03554 ####[facility]3000 [facility].[address] Monocytes Auto #/vol (Bld) 0.7 10*3/uL Normal 0.1-1.0 [facility] Comment on above: Performed By: #### 4 1801, 66397 ####[address] MONOS 11.2 % Normal 5.0-12.0 [facility] Comment on above: Performed By: #### 4 180, 11691 ####[facility] Neutrophils/100 WBC Auto (Bld) 46.2 % Normal 40.0-72.0 [facility] Comment on above: Performed By: #### 4 180, 40250 ####[facility] Nucleated RBC/100 WBC Ratio (Bld) 0 % Normal 0-0 [facility] Comment on above: Performed By: #### 4 1801, 22122 ####[place] [address] [facility].[address] PLAT CNT 263 10*3/uL Normal 150-400 [facility] Comment on above: Performed By: #### 4 1801, 32049 ####[facility] [facility].[address] RBC Auto #/vol (Bld) 4.65 10*6/uL Normal 3.80-5.00 [facility] Comment on above: Performed By: #### 4 1801, 56213 ####[facility].[address] WBC Auto #/vol (Bld) 6.07 10*3/uL Normal 4.00-10.60 [facility] Comment on above: Performed By: #### 4 1801, 41728 ####[facility] COMP METABOLIC PANELon 09-28 Albumin mass conc 4.1 g/dL Normal 3.5-5.7 [facility] Comment on above: Performed By: #### 4 1801, 23193 ####[place] [address] ALKALINE PHOSPH 73 IU/L Normal 34-104 [facility] Comment on above: Performed By: #### 4 180, 21068 ####[facility] [place] [address], [facility] ALT enzyme act/vol 54 U/L High 7-52 [facility] Comment on above: Performed By: #### 4 180, 95831 ####[facility] [place] [address], [facility] AST enzyme act/vol 40 U/L High 13-39 [facility] Comment on above: Performed By: #### 4 180, 05847 ####[facility] [place] [address], [facility] Bilirubin mass conc 0.4 mg/dL Normal 0.3-1.0 [facility] Comment on above: Performed By: #### 4 180, 26583 ####[facility] [place] [address], [facility] Calcium mass conc 9.7 mg/dL Normal 8.6-10.3 [facility] Comment on above: Performed By: #### 4 180, 80578 ####[facility] [place] [address], [place] Chloride molar conc 103 mmol/L Normal 98-107 [facility] Comment on above: Performed By: #### 4 180, 09828 ####[facility] [place] [address], [place] CO2 molar conc 28 mmol/L Normal 21-31 [facility] Comment on above: Performed By: #### 4 180, 13057 ####[facility] [place] [address], [place] Creatinine mass conc 0.81 mg/dL Normal 0.60-1.20 [facility] Comment on above: Performed By: #### 4 180, 46318 ####[facility] [place] [address], [place] GFR/1.73 sq M predicted among blacks MDRD vol rate/area (S/P/Bld) mL/min/{1.73_m2} Normal >60 [facility] Comment on above: Performed By: #### 4 180, 34375 ####[facility] [place] [address], [place] GFR/1.73 sq M predicted among non-blacks MDRD vol rate/area (S/P/Bld) mL/min/{1.73_m2} Normal >60 [facility] Comment on above: Performed By: #### 4 180, 70191 ####[facility] [place] [address], [place] Glucose mass conc 95 mg/dL Normal 70-100 [facility] Comment on above: Performed By: #### 4 180, 08412 ####[facility] [place] [address], [place] Potassium molar conc 4.4 mmol/L Normal 3.5-5.1 [facility] Comment on above: Performed By: #### 4 180, 04474 ####[facility] [place] [address], [place] Protein mass conc 7.2 g/dL Normal 6.0-8.3 [facility] Comment on above: Performed By: #### 4 180, 98085 ####[facility] [place] [address], [place] Sodium molar conc 139 mmol/L Normal 136-145 [facility] Comment on above: Performed By: #### 4 180, 27226 ####[facility] [place] [address], [place] Urea nitrogen mass conc 19 mg/dL Normal 7-25 [facility] Comment on above: Performed By: #### 4 180, 04764 ####[facility] [place] [address], [facility] Glucose Glucometer (BldC) [M ass/Vol]on 08-17-2017 Glucose [Mass/Vol] 99 mg/dL [facility] Comment on above: Random Glucose Refer ence Range is dependent on time and content of last meal. Glucose of more than 200 mg/dL in a nonstressed, ambulatory subject supports the diagnosis of Diabetes Mellitus. CBC W/DIFFon 03-31-2017 Basophils Auto #/vol (Bld) 0.3 % Normal 0.0-2.0 [facility] Comment on above: Performed By: #### 4 180, 48447 ####[facility] [place] [address], [facility] Eosinophils/100 WBC Auto (Bld) 2.1 % Normal 0.0-5.0 [facility] Comment on above: Performed By: #### 4 180, 60470 ####[facility] [place] [address], [facility] Erythrocyte distribution width Auto Ratio (RBC) 13.0 % Normal 11.5-16.9 [facility] Comment on above: Performed By: #### 4 180, 64261 ####[facility] [place] [address], [facility] Hematocrit Auto Volume Fraction (Bld) 42.6 % Normal 36.0-48.0 [facility] Comment on above: Performed By: #### 4 180, 19157 ####[facility] [place] [address], [facility] Hemoglobin mass conc (Bld) 14.3 g/dL Normal 12.0-15.0 [facility] Comment on above: Performed By: #### 4 180, 38558 ####[facility] [place] [address], [facility] Lymphocytes/100 WBC Auto (Bld) 29.7 % Normal 20.0-40.0 [facility] Comment on above: Performed By: #### 4 180, 25606 ####[facility] MCH Auto Entitic mass (RBC) 30.7 pg Normal 24.0-32.0 [facility] Comment on above: Performed By: #### 4 180, 75909 ####[facility] MCHC Auto mass conc (RBC) 33.7 g/dL Normal 32.0-36.0 [facility] Comment on above: Performed By: #### 4 180, 82011 ####[facility] MCV Auto Entitic volume (RBC) 91.2 fL Normal 80.0-100.0 [facility] Comment on above: Performed By: #### 4 180, 32408 ####[facility] METHOD Normal RBC Morphology Normal [facility] Comment on above: Performed By: #### 4 180, 76716 ####[facility] MONOS 6.4 % Normal 2-8 [facility] Comment on above: Performed By: #### 4 180, 77051 ####[facility] [place] [address], [facility] Neutrophils/100 WBC Auto (Bld) 61.5 % Normal 50-70 [facility] Comment on above: Performed By: #### 4 180, 91177 ####[facility] [place] [address], [facility] PLAT CNT 261 Thou/mm3 Normal 100-400 [facility] Comment on above: Performed By: #### 4 180, 12033 ####[facility] [place] [address], [facility] RBC Auto #/vol (Bld) 4.67 mill/mm3 Normal 3.50-5.50 T [facility] Comment on above: Performed By: #### 4 180, 51990 ####[facility] [place] [address], [facility] WBC Auto #/vol (Bld) 6.6 Thou/mm3 Normal 4.0-10.0 [facility] Comment on above: Performed By: #### 4 180, 02093 ####[facility] [place] [address], [facility] COMP METABOLIC PANELon 03-31 Albumin mass conc 4.0 g/dL Normal 3.5-5.7 [facility] Comment on above: Performed By: #### 4 180, 01970 ####[facility] [place] [address], [facility] ALKALINE PHOSPH 73 IU/L Normal 34-104 [facility] Comment on above: Performed By: #### 4 180, 41819 ####[facility] [place] [address], [facility] ALT enzyme act/vol 49 U/L Normal 7-52 [facility] Comment on above: Performed By: #### 4 180, 10758 ####[facility] [place] [address], [facility] AST enzyme act/vol 34 U/L Normal 13-39 [facility] Comment on above: Performed By: #### 4 180, 61461 ####[facility] [place] [address], [facility] Bilirubin mass conc 0.3 mg/dL Normal 0.3-1.0 [facility] Comment on above: Performed By: #### 4 180, 73686 ####[facility] [place] [address], [facility] Calcium mass conc 10.0 mg/dL Normal 8.6-10.3 [facility] Comment on above: Performed By: #### 4 180, 56730 ####[facility] [place] [address], [place] Chloride molar conc 103 mmol/L Normal 98-107 [facility] Comment on above: Performed By: #### 4 180, 34559 ####[facility] [place] [address], [place] CO2 molar conc 29 mmol/L Normal 21-31 [facility] Comment on above: Performed By: #### 4 180, 68119 ####[facility] [place] [address], [facility] Creatinine mass conc 0.86 mg/dL Normal 0.60-1.20 [facility] Comment on above: Performed By: #### 4 180, 09741 ####[facility] [facility] [place] [address], [place] GFR/1.73 sq M predicted among blacks MDRD vol rate/area (S/P/Bld) mL/min/{1.73_m2} Normal >60 [facility] Comment on above: Performed By: #### 4 180, 07062 ####[facility] [place] [address], [place] GFR/1.73 sq M predicted among non-blacks MDRD vol rate/area (S/P/Bld) mL/min/{1.73_m2} Normal >60 [facility] Comment on above: Performed By: #### 4 180, 29785 ####[facility] [place] [address], [place] Glucose mass conc 86 mg/dL Normal 70-100 [facility] Comment on above: Performed By: #### 4 1802, 15056 ####[facility] [facility] [place] [address], [facility] Potassium molar conc 4.1 mmol/L Normal 3.5-5.1 [facility] Comment on above: Performed By: #### 4 1802, 09791 ####[facility] [facility].[address] Protein mass conc 7.0 g/dL Normal 6.0-8.3 [facility] Comment on above: Performed By: #### 4 1802, 99240 ####[facility] [facility] [place] [address], [facility] Sodium molar conc 138 mmol/L Normal 136-145 [facility] Comment on above: Performed By: #### 4 1802, 79190 ####[facility] [facility] [place] [address], [facility] Urea nitrogen mass conc 14 mg/dL Normal 7-25 [facility] Comment on above: Performed By: #### 4 1802, 32191 ####[facility] [facility].[address] ANAon 02-10-2017 HELENE SCREEN <1:40 Normal <1:40,1:40 [facility] Comment on above: Performed By: #### 1 0008 ####[facility]3000 [facility].[address] ANCA IGG WITH REFLEX [id number] on 02-10-2017 ANCA <1:20 Normal <1:20 [facility] Comment on above: Result Comment: The ANCA IFA is <1:20; therefore, no further testing willbe performed.INTERPRETIVE INFORMATION: Anti-Neutrophil Cyto Ab, IgGNeutrophil Cytoplasmic Antibodies (C-ANCA = granularcytoplasmic staining, P-ANCA = perinuclear staining) arefound in the serum of over 90 percent of patients withcertain necrotizing systemic vasculitides, and usually inless than 5 percent of patients with collagen vasculardisease or arthritis.Performed by [facility],[address] [place] [id number] [employer], Onel Connelly MD - Lab. Director ANTI DNAon 02-10-2017 ANTI DNA <1:10 Normal <1:10 [facility] Comment on above: Performed By: #### 1 0008 ####[facility] [place] [address], [facility] ANTI-BETA 2 GLYCOPROTEIN 1on 02-10-2017 ANTI B2GP1 IGA 9.3 a units Normal 0.0-19.9 [facility] Comment on above: Performed By: #### 1 0008 ####[facility] [place] [address], [facility] ANTI B2GP1 IGG 1.1 g units Normal 0.0-19.9 [facility] Comment on above: Performed By: #### 1 0008 ####[facility] [place] [address], [facility] ANTI B2GP1 IGM 2.5 m units Normal 0.0-19.9 [facility] Comment on above: Performed By: #### 1 0008 ####[facility] [place] [address], [facility] ANTI-ENAon 02-10-2017 ANTI SM Negative Normal NEG,NEGATIVE,N eg [facility] Comment on above: Performed By: #### 1 0008 ####[facility] [place] [address], [place] ANTI SM/ANTIRNP Negative Normal NEG,NEGATIVE ,N eg [facility] Comment on above: Performed By: #### 1 0008 ####[facility] [place] [address], [place] ANTICARDIOLIPIN ANTIBODYon 04-12-2016 CARDIOLIPIN IGA 4.9 APL Normal 0.0-21.9 [facility] Comment on above: Performed By: #### 1 0008 ####[facility]3000 [facility].[address] CARDIOLIPIN IGG 14.5 GPL Normal 0.0-22.9 [facility] Comment on above: Performed By: #### 1 0008 ####[facility] [facility].[address] CARDIOLIPIN IGM 9.5 MPL Normal 0.0-10.9 [facility] Comment on above: Performed By: #### 1 0008 ####[facility] CBC W/DIFFon 02-10-2017 Basophils Auto #/vol (Bld) 0.4 % Normal 0.0-2.0 [facility] Comment on above: Performed By: #### 5 3 ####[facility] Eosinophils/100 WBC Auto (Bld) 2.5 % Normal 0.0-5.0 [facility] Comment on above: Performed By: #### 5 3 ####[facility]3000 [facility].[address] Erythrocyte distribution width Auto Ratio (RBC) 14.5 % Normal 11.5-16.9 [facility] Comment on above: Performed By: #### 5 3 ####[facility] [facility].[address] Hematocrit Auto Volume Fraction (Bld) 41.0 % Normal 36.0-48.0 [facility] Comment on above: Performed By: #### 5 3 ####[facility] Hemoglobin mass conc (Bld) 13.6 g/dL Normal 12.0-15.0 [facility] Comment on above: Performed By: #### 5 0103 ####[facility] Lymphocytes/100 WBC Auto (Bld) 26.7 % Normal 20.0-40.0 [facility] Comment on above: Performed By: #### 5 0103 ####[facility] MCH Auto Entitic mass (RBC) 30.5 pg Normal 24.0-32.0 [facility] Comment on above: Performed By: #### 5 3 ####[facility] MCHC Auto mass conc (RBC) 33.2 g/dL Normal 32.0-36.0 [facility] Comment on above: Performed By: #### 5 3 ####[facility] MCV Auto Entitic volume (RBC) 91.8 fL Normal 80.0-100.0 [facility] Comment on above: Performed By: #### 3 ####[facility]3000 [facility].[address] METHOD Normal RBC Morphology Normal [facility] Comment on above: Performed By: #### 5 3 ####[facility] MONOS 6.6 % Normal 2-8 [facility] Comment on above: Performed By: #### 5 3 ####[facility] [place] [address], [facility] Neutrophils/100 WBC Auto (Bld) 63.8 % Normal 50-70 [facility] Comment on above: Performed By: #### 102 ####[facility] [facility] [place] [address], [facility] PLAT CNT 310 Thou/mm3 Normal 100-400 [facility] Comment on above: Performed By: #### 102 ####[facility] [place] [address], [facility] RBC Auto #/vol (Bld) 4.47 mill/mm3 Normal 3.50-5.50 T [facility] Comment on above: Performed By: #### 102 ####[facility]3000 [facility] [place] [address], [facility] WBC Auto #/vol (Bld) 7.6 Thou/mm3 Normal 4.0-10.0 Th e [facility] Comment on above: Performed By: #### 102 ####[facility]3000 [facility].[address] COMP METABOLIC PANELon 02-10 Albumin mass conc 4.3 g/dL Normal 3.5-5.7 [facility] Comment on above: Performed By: #### 0 0121 ####[facility]3000 [facility].[address] ALKALINE PHOSPH 89 IU/L Normal 34-104 [facility] Comment on above: Performed By: #### 0 0121 ####[facility]3000 [facility].[address] ALT enzyme act/vol 35 U/L Normal 7-52 [facility] Comment on above: Performed By: #### 0 0121 ####[facility]3000 [facility].[address] AST enzyme act/vol 27 U/L Normal 13-39 [facility] Comment on above: Performed By: #### 0 0121 ####[facility] Bilirubin mass conc 0.4 mg/dL Normal 0.3-1.0 [facility] Comment on above: Performed By: #### 0 0121 ####[facility]3000 [facility] [place] [address], [facility] Calcium mass conc 9.9 mg/dL Normal 8.6-10.3 [facility] Comment on above: Performed By: #### 0 0121 ####[facility] [facility] [place] [address], [facility] Chloride molar conc 102 mmol/L Normal 98-107 [facility] Comment on above: Performed By: #### 0 0121 ####[facility] [facility] [place] [address], [facility] CO2 molar conc 25 mmol/L Normal 21-31 [facility] Comment on above: Performed By: #### 0 0121 ####[facility] [facility] [place] [address], [facility] Creatinine mass conc 0.87 mg/dL Normal 0.60-1.20 [facility] Comment on above: Performed By: #### 0 0121 ####[place] [id number] [facility] [place] [address], [facility] GFR/1.73 sq M predicted among blacks MDRD vol rate/area (S/P/Bld) mL/min/{1.73_m2} Normal >60 [facility] Comment on above: Performed By: #### 0 0121 ####[facility] [facility] [place] [address], [facility] GFR/1.73 sq M predicted among non-blacks MDRD vol rate/area (S/P/Bld) mL/min/{1.73_m2} Normal >60 [facility] Comment on above: Performed By: #### 0 0121 ####[facility] [facility].[address] Glucose mass conc 99 mg/dL Normal 70-100 [facility] Comment on above: Performed By: #### 0 0121 ####[facility] [place] [address], [facility] Potassium molar conc 4.1 mmol/L Normal 3.5-5.1 [facility] Comment on above: Performed By: #### 0 0121 ####[facility] Protein mass conc 7.5 g/dL Normal 6.0-8.3 [facility] Comment on above: Performed By: #### 0 0121 ####[facility] Sodium molar conc 136 mmol/L Normal 136-145 [facility] Comment on above: Performed By: #### 0 0121 ####[facility] [place] [address], [facility] Urea nitrogen mass conc 20 mg/dL Normal 7-25 [facility] Comment on above: Performed By: #### 0 0121 ####[facility] COMPLEMENT 3on 02-10-2017 COMPLEMENT 3 154 mg/dL High 79-152 [facility] Comment on above: Performed By: #### 1 0204, 89092, 01549 ####[facility] [place] [address], [facility] COMPLEMENT 4on 02-10-2017 COMPLEMENT 4 34 mg/dL Normal 16-38 [facility] Comment on above: Performed By: #### 1 0204, 74673, 34233 ####[facility] [place] [address], [facility] CREATININE URINE RANDOMon CREATININE 138.0 mg/dL Normal [facility] Comment on above: Result Comment: Ther e are no established reference values for random urine specimens Performed By: #### 4 1802, [id number] ####[facility] [place] [address], [facility] CRYOGLOBULIN ILon 02-10-2017 CRYOGLOBULIN 0 mg/dL Normal 0-10 [facility] IL Normal [facility] CYCLIC CITRULLINATED PEPTIDE AB [id number] 02-10-2017 CYCLIC CIT PEP 6 Units Normal 0-19 [facility] Comment on above: Result Comment: INTE [...] results should bemonitored and testing repeated.Performed by [facility],[address] [place] [id number] wfc.[employer], Onel Connelly MD - Lab. Director HEPATITIS B CORE ANTIBODYon 02-10-2017 HEP B CORE AB NONREACTIVE Normal NONREACTIVE [facility] Comment on above: Performed By: #### 3 8077, 67382, 74187, 08825 ####[facility] [place] [address], [facility] HEPATITIS B SURFACE ANTIBODY QUANTon 02-10-2017 HEP B SURF AB 0.00 mIU/ml Normal [facility] Comment on above: Result Comment: INTE RPRETATION:NONREACTIVE<8.00 mIU/mLINDETERMINATE8.00 - 12.00 mIU/mLREACTIVE>12 mIU/mL Performed By: #### 1 0008 ####[facility] [place] [facility].[address] HEPATITIS B SURFACE ANTIGEN QUALon 02-10-2017 HEP B SURF AG QUAL NONREACTIVE Normal NONREACTIVE [facility] Comment on above: Performed By: #### 1 0008 ####[facility]3000 [facility].[address] HEPATITIS C ANTIBODYon 02-10 ANTI-HCV NONREACTIVE Normal NONREACTIVE [facility] Comment on above: Performed By: #### 3 1397, 60078, 55343, 55283 ####[place] [address] [facility].[address] RHEUMATOID FACTOR SERUMon RA <20 Normal 0-20 [facility] Comment on above: Performed By: #### 1 0204, 90817, 40655 ####[facility]3000 [facility].[address] SJOGRENS ANTIBODIESon 2016 SS-A Negative Normal NEG,NEGATIVE,N eg [facility] Comment on above: Performed By: #### 1 0008 ####[place] [address] [facility].[address] SS-B Negative Normal NEG,NEGATIVE,N eg [facility] Comment on above: Performed By: #### 1 0008 ####[facility] [facility] [place] [address], [facility] T PROT UR Adam 02-10-2017 Protein mass conc 29.0 mg/dL Normal [facility] Comment on above: Result Comment: Ther e are no established reference values for random urine specimens Performed By: #### 4 3652, 64905 ####[facility]3000 [facility].[address] TB QUANTIFERONon 02-10-2017 MITOGEN MINUS NIL >=10 Normal [facility] Comment on above: Performed By: #### 4 1802, 69401 ####[facility]3000 [facility].[address] NIL 0.03 IU/mL Normal [facility] Comment on above: Performed By: #### 4 1802, 62092 ####[facility]3000 [facility].[address] TB AG MINUS NIL 0.01 IU/mL Normal [facility] Comment on above: Performed By: #### 4 1802, 65326 ####[facility] [facility].[address] TB ANTIGEN 0.04 IU/mL Normal [facility] Comment on above: Performed By: #### 4 1802, 90185 ####[facility]3000 [facility].[address] TB QUANTIFERON Negative Normal NEGATIVE [facility] Comment on above: Result Comment: Boy [...] and LTBI(http://www.cdc.gov/nchstp/tb/). Performed By: #### 4 1802, 71936 ####[facility] [facility].[address] URINALYSISon 02-10-2017 APPEARANCE CLOUDY Abnormal CLEAR [facility] Comment on above: Performed By: #### 1 0008 ####[facility] [place] [address], [facility] BACTERIA MOD Abnormal NONE SEEN [facility] Comment on above: Performed By: #### 1 0008 ####[facility] [place] [address], [facility] BILIRUBIN Negative Normal NEGATIVE [facility] Comment on above: Performed By: #### 1 0008 ####[facility] [place] [address], [facility] BLOOD Negative Normal NEGATIVE [facility] Comment on above: Performed By: #### 1 0008 ####[facility] [place] [address], [facility] COLOR YELLOW Normal YELLOW [facility] Comment on above: Performed By: #### 1 0008 ####[facility] [place] [address], [facility] EPIS MANY Abnormal FEW [facility] Comment on above: Performed By: #### 1 0008 ####[facility] [place] [address], [facility] GLUCOSE Negative Normal NEGATIVE [facility] Comment on above: Performed By: #### 1 0008 ####[facility] [place] [address], [facility] INR Coag RelTime (Bld) 0-2 Abnormal 0-0 [facility] Comment on above: Performed By: #### 1 0008 ####[facility] [place] [address], [facility] KETONE Negative Normal NEGATIVE [facility] Comment on above: Performed By: #### 1 0008 ####[facility] LEUK DIMPLE LARGE Abnormal NEGATIVE [facility] Comment on above: Performed By: #### 1 0008 ####[facility] [facility].[address] MUCUS THREADS OCC Abnormal NONE SEEN [facility] Comment on above: Performed By: #### 1 0008 ####[facility] [facility].[address] NITRITE Negative Normal NEGATIVE [facility] Comment on above: Performed By: #### 1 0008 ####[facility] [facility].[address] PH 5.0 Normal 5.0-8.0 [facility] Comment on above: Performed By: #### 1 0008 ####[facility] [facility].[address] Protein mass conc Negative Normal NEGATIVE [facility] Comment on above: Performed By: #### 1 0008 ####[facility] [facility].[address] SPEC GRAV 1.020 Normal 1.015-1.020 [facility] Comment on above: Performed By: #### 1 0008 ####[facility]3000 [facility].[address] WBC UA >100 Abnormal 0-0 [facility] Comment on above: Performed By: #### 1 0008 ####[facility] [facility].[address] CYTOLOGY SPECIMENon 02-02-20 CYTOLOGY SPEC Normal [facility] Comment on above: Order Comment: Comme nt: A. PERIESOPHAGEAL LESION FNA - CYTOLYT, 10 SLIDES Result Comment: Note : Specimens received on or after December:* Pathology and Cytology reports are located in [facility] in the folder labeled Medical Record Forms.* Reports are also in the Physician Portal.* Reports will be faxed to phycician's office.* For assistance locating reports call: * Willard Guadarrama [phone] * LAB [phone] Performed By: #### L UHCYTO ####[place] [address] [place] [address] Albumin [Mass/volume] in Ser um or Plasmaon 01-03-2017 Albumin [Mass/Vol] 3.3 g/dL 3.2-5.5 [facility] Basophils Auto (Bld) [#/Vol] on 01-03-2017 Basophils (Bld) [#/Vol] 0.0 10*3/uL 0.0-0.2 [facility] Basophils/100 WBC Auto (Bld) on 01-03-2017 Basophils/100 WBC (Bld) 0.6 % . [facility] Creatinine and Glomerular fi ltration rate.predicted panel (S/P/Bld)on 01-03-2017 Creatinine [Mass/Vol] 1.00 mg/dL 0.44-1.03 [facility] Eosinophils Auto (Bld) [#/Vo l]on 01-03-2017 Eosinophils (Bld) [#/Vol] 0.1 10*3/uL 0.0-0.45 [facility] Eosinophils/100 WBC Auto (Bl d)on 01-03-2017 Eosinophils/100 WBC (Bld) 1.5 % . [facility] Erythrocyte distribution wid th Auto (RBC) [Ratio]on 01-03-2017 Erythrocyte distribution width (RBC) [Ratio] 14.5 % 11.9-15.3 [facility] Estimated glomerular filtrat ion rate (GFR) non- Americanon 01-03-2017 GFR/1.73 sq M.predicted among non-blacks MDRD (S/P/Bld) [Vol rate/Area] 56 mL/min/{1.73_m2} [facility] Globulin Calc (S) [Mass/Vol] on 01-03-2017 Globulin (S) [Mass/Vol] 3.6 g/dL [facility] Hematocrit Auto (Bld) [Volum e fraction]on 01-03-2017 Hematocrit (Bld) [Volume fraction] 36.3 % 34.0-46.4 [facility] Hemoglobin [Mass/volume] in Bloodon 01-03-2017 Hemoglobin (Bld) [Mass/Vol] 12.1 g/dL 11.8-15.4 [facility] Laboratory - Chemistry and C hemistry - challengeon 01-03-2017 GFR/1.73 sq M.predicted among blacks MDRD (S/P/Bld) [Vol rate/Area] mL/min/{1.73_m2} [facility] Comment on above: GFR estimated refere nce range: According to KDOQI guidelines, <60 ml/min/1.73m2 is sufficient to diagnose a patient with chronic kidney disease. Lymphocytes Auto (Bld) [#/Vo l]on 01-03-2017 Lymphocytes (Bld) [#/Vol] 2.1 10*3/uL 1.00-4.8 [facility] Lymphocytes/100 WBC Auto (Bl d)on 01-03-2017 Lymphocytes/100 WBC (Bld) 27.4 % . [facility] MCH Auto (RBC) [Entitic mass ]on 01-03-2017 MCH (RBC) [Entitic mass] 30.8 pg 24.7-34.3 [facility] MCHC Auto (RBC) [Mass/Vol]on 01-03-2017 MCHC (RBC) [Mass/Vol] 33.4 g/dL 32.0-35.0 [facility] MCV Auto (RBC) [Entitic vol] on 01-03-2017 MCV (RBC) [Entitic vol] 92.4 fL 80-100 [facility] Monocytes Auto (Bld) [#/Vol] on 01-03-2017 Monocytes (Bld) [#/Vol] 1.0 10*3/uL High 0.0-0.8 [facility] Monocytes/100 WBC Auto (Bld) on 01-03-2017 Monocytes/100 WBC (Bld) 12.7 % . [facility] Neutrophils Auto (Bld) [#/Vo l]on 01-03-2017 Neutrophils (Bld) [#/Vol] 4.4 10*3/uL 1.8-7.7 [facility] Neutrophils/100 WBC Auto (Bl d)on 01-03-2017 Neutrophils/100 WBC (Bld) 57.8 % . [facility] No Panel Informationon 01-03 Pharmacy Creatinine Clearance (Chem N/A [facility] Platelet mean volume Auto (B ld) [Entitic vol]on 01-03-2017 Platelet mean volume (Bld) [Entitic vol] 8.2 fL 6.3-10.7 [facility] Platelets Auto (Bld) [#/Vol] on 01-03-2017 Platelets (Bld) [#/Vol] 429 10*3/uL 150-450 [facility] Protein [Mass/volume] in Ser um or Plasmaon 01-03-2017 Protein [Mass/Vol] 6.9 g/dL 6.1-7.9 [facility] RBC Auto (Bld) [#/Vol]on RBC (Bld) [#/Vol] 3.93 10*6/uL 3.60-5.00 [facility] Serum or plasma alanine briggs otransferase measurement without P-5'-P (enzymatic activion 01-03-2017 ALT No additional P-5'-P [Catalytic activity/Vol] 37 U/L 10-60 [facility] Serum or plasma albumin/glob ulin mass ratioon 01-03-2017 Albumin/Globulin [Mass ratio] 0.9 {ratio} [facility] Serum or plasma alkaline bita sphatase measurement (enzymatic activity/volume)on 01-03-2017 ALP [Catalytic activity/Vol] 89 U/L 32-92 [facility] Serum or plasma aspartate am inotransferase measurement (enzymatic activity/volume)on 01-03-2017 AST [Catalytic activity/Vol] 30 U/L 10-42 [facility] Serum or plasma calcium katheryn urement (mass/volume)on 01-03-2017 Calcium [Mass/Vol] 9.4 mg/dL 8.2-10.2 [facility] Serum or plasma chloride claudia surement (moles/volume)on 01-03-2017 Chloride [Moles/Vol] 98 mmol/L 95-114 [facility] Serum or plasma glucose katheryn urement (mass/volume)on 01-03-2017 Glucose [Mass/Vol] 107 mg/dL High 70-100 [facility] Comment on above: ADA recommended refe rence rangeRandom Glucose Reference Range is dependent on time and content of last meal. Glucose of more than 200 mg/dL in a nonstressed, ambulatory subject supports the diagnosis of Diabetes Mellitus. Serum or plasma potassium me asurement (moles/volume)on 01-03-2017 Potassium [Moles/Vol] 4.1 mmol/L 3.5-5.1 [facility] Serum or plasma sodium measu rement (moles/volume)on 01-03-2017 Sodium [Moles/Vol] 139 mmol/L 136-146 [facility] Serum or plasma total biliru bin measurement (mass/volume)on 01-03-2017 Bilirubin [Mass/Vol] 0.3 mg/dL 0.3-1.2 [facility] Serum or plasma total carbon dioxide measurement (moles/volume)on 01-03-2017 CO2 [Moles/Vol] 29.5 mmol/L 22.0-30.0 [facility] Serum or plasma urea nitroge n measurement (mass/volume)on 01-03-2017 Urea nitrogen [Mass/Vol] 12 mg/dL 9-23 [facility] WBC Auto (Bld) [#/Vol]on WBC (Bld) [#/Vol] 7.6 10*3/uL 3.8-11.6 [facility] No Panel Information [facility] Vital Signs Date Time Vital Sign Value Performing Clinician Faci lity 01-30-2024 10:17040 Body height 167.64 cm MD Christian Steiner Work Phone: [facility] 01-30-2024 10:17-0400 Body mass index (BMI) [Ratio] 26.3 kg/m2 MD Christian Steiner Work Phone: [facility] 01-30-2024 10:17-040 Body temperature 97.3 [degF] MD Christian Steiner Work Phone: [facility] 01-30-2024 10:17-040 Body weight 73.93 kg MD Christian Steiner Work Phone: [facility] 01-30-2024 10:17-0400 Heart rate 86 /min MD Christian Steiner Work Phone: [facility] 01-30-2024 10:17-0400 Respiratory rate 16 /min MD Christian Steiner Work Phone: [facility] 01-30-2024 10:17-0400 SaO2% (BldA) [Mass fraction] 96 % MD Christian Steiner Work Phone: [facility] 07-14-2023 11:29-0400 Body height 157.5 cm Lynsey Saldana MD Work Phone: [facility] 07-14-2023 11:29-0400 Body mass index (BMI) [Ratio] 30 kg/m2 Lynsey Saldana MD Work Phone: [facility] 07-14-2023 11:29-0400 Body weight 74.39 kg Lynsey Saldana MD Work Phone: [facility] 07-14-2023 11:29-0400 Diastolic blood pressure 84 mm[Hg] Lynsey Saldana MD Work Phone: [facility] 07-14-2023 11:29-0400 Heart rate 79 /min Lynsey Saldana MD Work Phone: [facility] 07-14-2023 11:29-0400 Systolic blood pressure 134 mm[Hg] Lynsey Saldana MD Work Phone: [facility] 01-21-2023 09:58-0400 Body temperature 97.2 [degF] MD Christian Steiner Work Phone: [facility] 01-21-2023 09:58-0400 Body weight 76.65 kg MD Christian Steiner Work Phone: [facility] 01-21-2023 09:58-0400 Diastolic blood pressure 78 mm[Hg] MD Christian Steiner Work Phone: [facility] 01-21-2023 09:58-0400 Heart rate 71 /min MD Christian Steiner Work Phone: [facility] 01-21-2023 09:58-0400 Respiratory rate 16 /min MD Christian Steiner Work Phone: [facility] 01-21-2023 09:58-0400 SaO2% (BldA) [Mass fraction] 98 % MD Christian Steiner Work Phone: [facility] 01-21-2023 09:58-0400 Systolic blood pressure 141 mm[Hg] MD Christian Steiner Work Phone: [facility] 01-21-2022 10:03-0400 Body height 167.64 cm MD Christian Steiner [facility] 01-21-2022 10:03-0400 Body weight 82.64 kg [facility] 01-21-2022 10:03-0400 Diastolic blood pressure 78 mm[Hg] MD Christian Steiner [facility] 01-21-2022 10:03-0400 Heart rate 98 /min MD Christian Steiner [facility] 01-21-2022 10:03-0400 Respiratory rate 18 /min MD Christian Steiner [facility] 01-21-2022 10:03-0400 SaO2% (BldA) [Mass fraction] 98 % MD Christian Steiner [facility] 01-21-2022 10:03-0400 Systolic blood pressure 122 mm[Hg] MD Christian Steiner [facility] 01-21-2021 10:29-0400 Body temperature 98 [degF] MD Christian Steiner [facility] Encounters Encounter Date Encounter Type Care Provider Facility Start: 05-14-2024 End: 05-14-2024 ambulatory Lizzie Torre MD Facility:[facility] Start: 04-18-2024 End: 04-18-2024 ambulatory CK GONZALEZ Facility:[facility] Start: 04-18-2024 End: 04-18-2024 Patient encounter procedure [...] Registered Recurring MD Tigre Steiner [facility] Work [facility]: Start: 01-30-2024 End: 01-30-2024 ambulatory MD Christian Steiner Work Phone: [facility] Work Phone: Start: 01-30-2024 End: 01-30-2024 Patient encounter procedure MD [facility] Work [facility]: Start: 12-19-2023 End: 12-19-2023 [...] Start: 10-17-2023 End: 10-17-2023 ambulatory ALESHA SCHULTE Facility:[facility] Start: 10-17-2023 End: 10-17-2023 Patient encounter procedure Alesha Schulte MD Work Phone: Ophthalmology Comment on above: Primary open-angle g laucoma, bilateral, mild stage (Primary Dx) Start: 09-05-2023 End: 09-05-2023 ambulatory ALESHA SCHULTE Facility:[facility] Start: 09-05-2023 End: 09-05-2023 Patient encounter procedure Alesha Schulte MD Work Phone: Ophthalmology Comment on above: Primary open-angle g laucoma, bilateral, mild stage (Primary Dx) Start: 08-24-2023 End: 08-24-2023 ambulatory SARAHI PIERSON Not Available Start: 07-27-2023 End: 07-27-2023 ambulatory ALESHA SCHULTE Facility:[facility] Start: 07-27-2023 End: 07-27-2023 Patient encounter procedure Alesha Schulte MD Work Phone: Ophthalmology Comment on above: Primary open-angle g laucoma, bilateral, mild stage (Primary Dx) Start: 07-14-2023 End: 07-14-2023 ambulatory [facility] Start: 07-14-2023 End: 07-14-2023 Office outpatient visit 15 minutes Lynsey Saldana MD Work Phone: [facility] Comment on above: Lymphedema (Primary Dx) Start: 05-18-2023 Chart abstracting Jr. Todd Boudreaux DO Work Phone: [facility] Start: 05-18-2023 End: 05-18-2023 ambulatory TODD ANDREW Not Available Start: 01-21-2023 End: 01-21-2023 ambulatory MD Christian Steiner Work Phone: [facility] Work Phone: Start: 01-21-2023 End: 01-21-2023 Registered Recurring MD Christian Steiner Work Phone: [facility] Work Phone: Start: 01-17-2023 End: 01-17-2023 [...] FAWWAD Facility:[facility] Start: 02-02-2022 End: 03-03-2022 ambulatory SHAIKH Gallito SNYDERWAD Facility:[facility] Start: 01-21-2022 End: 01-21-2022 ambulatory MD Christian Steiner [facility] Work Phone: Start: 01-21-2022 End: 01-21-2022 Registered Recurring MD Christian Steiner [facility] Start: 01-03-2022 End: 02-01-2022 ambulatory COVARRUBIAS H FAAmyWAD Facility:[facility] Start: 12-03-2021 End: 01-02-2022 ambulatory COVARRUBIAS H FAWWAD Facility:[facility] Start: 11-02-2021 End: 12-02-2021 ambulatory COVARRUBIAS H FAAmyWAD Facility:[facility] Start: 10-02-2021 End: 10-30-2021 ambulatory COVARRUBIAS H FAAmyWAD Facility:[facility] Start: 07-19-2018 Patient encounter procedure Kacie Naty Jarrod Facility:[id number] Start: 01-17-2018 Patient encounter procedure Kacie Naty Jarrod Facility:[id number] Start: 09-28-2017 End: 09-29-2017 Patient encounter EMELY DOMENICO Facility:[facility] Start: 08-18-2017 Patient encounter procedure Christian Steiner Facility:[id number] Start: 03-31-2017 End: 04-01-2017 Patient encounter EMELY DOMENICO Facility:[facility] Start: 02-10-2017 End: 02-11-2017 Patient encounter EMELY DOMENICO Facility:[facility] Start: 01-28-2017 Ambulatory Pla Deshawn Facility:[facility] Procedures Date Procedure Procedure Detail Performing Clinician Start: 01-23-2024 Screening mammograph y of left breast MD Christian Steiner Work Phone: Start: 12-19-2023 Arthrocentesis aspir &/inj major jt/bursa w/o us Dino PÉREZ Work Phone: Start: 09-05-2023 Trabeculoplasty by tameka correa surgery Alesha Schulte MD Work Phone: Start: 07-27-2023 End: 04-24-2024 Visual field xm uni/bi w/interp extended exam [...] 01-18-2017 Ultrasound procedure on topographic region MD Christina Steiner Start: 01-07-2017 Positron emission to mography with computed tomography MD Christian Steiner Start: 01-05-2017 Duplex scan of lower limb veins MD Christian Steiner Start: 01-03-2017 CT chest w con MD Tia Steiner Plan of Treatment Date Care Activity Detail Author Start: 05-22-2025 End: 05-22-2025 Patient encounter procedure 05/22/2025 10:00 AM EST Office Visit [facility] [address] [place] [address] Jr. Todd Boudreaux, DO [address] [place] [address] [facility] Start: 01-22-2025 Screening for malign ant neoplasm of breast Mammogram Screening [facility] Start: 10-22-2024 End: 10-22-2024 Patient encounter procedure 10/22/2024 10:45 AM EDT Office Visit [facility] [address] [place] [address] Alesha Schulte MD [address] [place] [address] RTC: 6 Months Full OCT ON/GCA + HVF 24-2 [facility] Comment on above: RTC: [address] ON/GCA + HVF 24-2 [facility] Start: 07-13-2024 Adult BMI Screening [facility] Screen [facility] Start: 07-13-2024 Tobacco Screening Tobacco Screening [facility] Start: 07-12-2024 End: 07-12-2024 Patient encounter procedure 07/12/2024 8:30 AM EDT Office Visit [facility] [address] [place] [address] Lynsey Saldana MD [address], [facility] [address] [place] [address] [facility] Start: 04-18-2024 End: 04-18-2024 Patient encounter procedure 04/18/2024 10:30 AM EST Office Visit [facility] [address] [place] [address] Ck Gonzalez, OD [address] [place] [address] Return in about 6 months (around 04/18/2024) for VATA with TH. Ophthalmology Comment on above: Return in about 6 mo nths (around 04/18/2024) for VATA with TH. Start: 04-09-2024 End: 04-09-2024 Patient encounter procedure 04/09/2024 2:30 PM EST Office Visit [facility] [address] [place] [address] Dino George, PA [address] [place] [address] Acute pain of right shoulder (Primary Dx) [facility] Comment on above: Acute pain of right shoulder (Primary Dx) Start: 04-04-2024 Advance Directive Discussion Advance Directive Discussion [facility] Start: 01-21-2024 Screening for malign ant neoplasm of breast Mammogram Screening [facility] Start: 01-16-2024 End: 01-16-2024 Patient encounter procedure 01/16/2024 10:15 AM EDT Office Visit [facility] [address] [place] [address] Dino George, PA [address] [facility] [address] [place] [address] [facility] Start: 12-19-2023 End: 12-19-2023 Patient encounter procedure 12/19/2023 10:15 AM EDT Office Visit [facility] [address] [place] [address] Dino George PA [address] [facility] [address] [place] [address] Acute pain of right knee (Primary Dx); History of total knee replacement, right [facility] Comment on above: Acute pain of right knee (Primary Dx); History of total knee replacement, right Start: 12-04-2023 Covid-19 Vaccine ( season) Covid-19 Vaccine ( season) [facility] Start: 12-04-2023 Influenza vaccination [facility] Start: 10-17-2023 End: 10-17-2023 Patient encounter procedure 10/17/2023 1:15 PM EDT Office Visit [facility] [address] [place] [address] Alesha Schulte MD [address] [address] Return for VATA. Ophthalmology Comment on above: Return for VATA. Start: 09-05-2023 End: 06-03-2024 Patient encounter procedure 09/05/2023 9:45 AM EDT Office Visit [facility] [address] [place] [address] Alesha Schulte MD [address] [place] [address] Return for slt od on a amonday next available Ophthalmology Comment on above: Return for slt od on a amonday next available Start: 05-18-2023 End: 05-18-2023 Patient encounter procedure 05/18/2023 10:15 AM EST Office Visit [facility] [address] [place] [address] Jr. Todd Boudreaux, DO [address] [address] [facility] Start: 04-04-2023 Advance Directive Discussion Advance Directive Discussion [facility] Start: 04-04-2023 Behavioral Health Screening Behavioral Health Screening [facility] Start: 02-12-2023 Diabetes Screening Diabetes Screenin g [facility] Start: 12-03-2022 Covid-19 Vaccine ( season) Covid-19 Vaccine ( season) [facility] Start: 12-03-2022 Influenza vaccination [facility] Start: 04-04-2022 ADVANCE DIRECTIVE DISCUSSION ADVANCE DIRECTIVE DISCUSSION [facility] Start: 04-04-2022 [facility]ION [facility]MENT [facility] Start: 12-03-2021 Influenza vaccination INFLUENZA (#1) [facility] Start: 04-04-2021 ADVANCE DIRECTIVE DISCUSSION ADVANCE DIRECTIVE DISCUSSION [facility] Start: 04-04-2021 DEPRESSION ASSESSMENT [facility] Start: 2017 BONE DENSITY BONE DENSITY [facility] Start: 2017 Bone Density Screening Bone Density Screening [facility] Start: 2017 Fall Risk Screening Fall Risk Screen [facility] [employer] [facility] Start: 2017 PNEUMOCOCCAL: 65+ (1 - PCV) PNEUMOCOCCAL: 65+ (1 - PCV) [facility] Start: 2017 Screening for osteoporosis Bone Density Screening [facility] Start: 11-13-2014 Administration of varicella zoster vaccine Zoster (Shingles) Vaccine (2 of 3) [facility] Start: 11-13-2014 SHINGRIX VACCINE (2 of 3) SHINGRIX VACCINE (2 of 3) [facility] Start: 2012 RSV Vaccine (1 - 1-d ose 60+ series) RSV Vaccine (1 - 1-dose 60+ series) [facility] Start: 2012 RSV Vaccine (1 - Ris k 60-74 years 1-dose series) RSV Vaccine (1 - Risk 60-74 years 1-dose series) [facility] Start: 2002 SHINGRIX VACCINE (1 of 2) SHINGRIX VACCINE (1 of 2) [facility] Start: 1997 COLOGUARD (FIT-DNA) COLOGUARD (FIT-D NA) [facility] Start: 1997 Colonoscopy COLONOSCOPY [facility] Start: 1997 COLORECTAL CANCER SCREENING COLORECTAL CANCER SCREENING [facility] Start: [address] COLONOGRAPHY [facility] Start: 1997 DIABETES SCREEN DIABETES SCREEN [facility] Start: 1997 Diabetes Screening Diabetes Screenin g [facility] Start: 1997 FECAL OCCULT BLOOD FECAL OCCULT BLOO D [facility] Start: 1997 Lipid 1996 panel - S amalia or Plasma Lipid Screening [facility] Start: 1997 Lipid panel Lipid Screening [facility] Start: 1997 LIPID SCREEN LIPID SCREEN [facility] Start: 1997 Screening for malign ant neoplasm of colon [facility] Start: 1997 SIGMOIDOSCOPY SIGMOIDOSCOPY [facility] Start: 1992 Mammography [facility] Start: 1982 Zoledronic acid therapy ALPHA- 1 ANTITRYPSIN DEFICIENCY SCREENING [facility] Start: 1971 DTaP,Tdap and Td Vaccines (1 - Tdap) DTaP,Tdap and Td Vaccines (1 - Tdap) [facility] Start: 1971 Urine microalbumin profile [facility] Start: 1970 Adult BMI Follow Up Plan Adult BMI Follow Up Plan [facility] Start: 1970 ANNUAL PCP TEAM GRADUATE INTERNSHIP LYLE DISEASE VISIT ANNUAL PCP TEAM CHRONIC DISEASE VISIT [facility] Start: 1970 Anxiety Screening Anxiety Screening [facility] Start: 1970 Depression Screening Depression Scre ening [facility] Start: 1970 HEPATITIS C SCREENING [facility]PATITIS C [facility] Start: 1970 Hepatitis C screening [facility]atitis C [facility] Start: 1970 SPIROMETRY SPIROMETRY [facility] Start: 1964 Depression Screening Depression Scre ening [facility] Start: 1952 COVID-19 VACCINE (#1) COVID-19 VACCI NE (#1) [facility] Start: 1950 Medicare Annual Well ness Visit Medicare Annual Wellness Visit [facility] MG Breast - left Screening [facility] MG Breast - left Screening [facility] MG Breast - left Screening [facility] XR Hip - right 3 Views XR hip ri ght 2 or 3 views Imaging Routine Acute right hip pain 12/19/2023 10:12 AM EDT [facility] Work Phone: [facility] Immunizations Immunization Date Immunization Notes Care Provider Fa cili 01-05-2020 influenza (HD-IIV4) vaccine, age 65+ yr, high dose, quadrivalent, PF (FLUZONE HIGH-DOSE) Alesha Schulte MD Work Phone: [facility] 01-05-2020 influenza virus vacc ine, unspecified formulation Alesha Schulte MD Work Phone: [facility] 01-25-2018 pneumococcal polysaccharide vaccine, 23 valent Alesha Schulte MD Work Phone: [facility] 10-20-2017 pneumococcal conjuga te vaccine, 13 valent Alesha Schulte MD Work Phone: [facility] 09-17-2015 pneumococcal polysaccharide vaccine, 23 valent Alesha Schulte MD Work Phone: [facility] 06-09-2015 influenza, injectabl e, quadrivalent, preservative free Alesha Schulte MD Work Phone: [facility] 09-18-2014 zoster vaccine, live Raji Schulte MD Work Phone: [facility] 09-18-2014 zoster vaccine, unspecified formulation Lyn[facility]dana [facility] 01-30-2009 novel influenza-H1N1 -09, preservative-free, injectable Alesha Schulte MD Work Phone: [facility] Payers Date Payer Category Payer Private Health Insurance [employer] [id number] 2018 Unknown [id number]. [id number] 2017 Medicare [id number]. [id number] 2016 Self-pay [id number] 1959 Medicare [id number] 1959 Unknown [id number] 1952 Unknown [id number] 2.16.840.1.139609.3.579.2. 356 1952 Unknown [id number] 2.16.840.1.074321.3.579.2. 356 1952 Unknown [id number] 2.16.840.1.680814.3.579.2. 356 1952 Unknown [id number] 2.16.840.1.203363.3.579.2. 593 1952 Unknown [id number] 2.16.840.1.296273.3.579.2. 593 1952 Unknown [id number] 2.16.840.1.274782.3.579.2. 593 1952 Unknown [id number] 2.16.840.1.704098.3.579.2. 593 1952 Unknown [id number] 2.16.840.1.560153.3.579.2. 593 1952 Unknown [id number] 2.16.840.1.391135.3.579.2. 593 1952 Unknown [id number] 2.16.840.1.471469.3.579.2. 593 1952 Unknown [id number] 2.16.840.1.368137.3.579.2. 593 1952 Unknown [id number] 2.16.840.1.751880.3.579.2. 593 1952 Unknown [id number] 2.16.840.1.733151.3.579.2. 593 1952 Unknown [id number] 2.16.840.1.574593.3.579.2. 593 1952 Unknown [id number] 2.16.840.1.490329.3.579.2. 593 1952 Unknown [id number] 2.16.840.1.040083.3.579.2. 593 1952 Unknown [id number] 2.16.840.1.343692.3.579.2. 593 1952 Unknown [id number] 2.16.840.1.323722.3.579.2. 1286 1952 Unknown [id number] 2.16.840.1.692502.3.579.2. 1259 1952 Unknown [id number] 2.16.840.1.520551.3.579.2. 1259 1952 Unknown [id number] 2.16.840.1.631075.3.579.2. 9 1952 Unknown [id number] 2.16.840.1.593584.3.579.2. 9 1952 Unknown [id number] 2.16.840.1.894359.3.579.2. 9 1952 Unknown [id number] 2.16.840.1.381103.3.579.2. 9 1952 Unknown [id number] 2.16.840.1.641709.3.579.2. 196 Unknown [id number] Unknown [id number] 2.16.840.1.875004.3.579.2. 531 Social History Date Type Detail Facility Start: 01-21-2021 End: 03-25-2022 Tobacco smoking status ARIS Never smoked tobacco (finding) [facility] Start: 1950 Sex Assigned At Female [facility] Start: 02-27-2019 End: 03-25-2022 Tobacco use and exposure Smokeless tobacco non-user [facility] Start: 09-18-2019 End: 04-18-2024 Alcohol intake Current drinker of alcohol (finding) [facility] Start: 09-18-2019 History SDOH Alcohol Frequency 2 [facility] Start: 09-18-2019 History SDOH Alcohol Std Drinks 1 [facility] Start: 02-27-2019 Alcohol Comment a glass of wine once every 2-3 months [facility] Start: 1950 Sex Assigned At Not on file [facility] Start: 02-27-2019 End: 05-15-2020 History of Social function [facility] Start: 02-27-2019 End: 05-15-2020 Alcohol Use Disorder Identification Test - Consumption [AUDIT-C] [facility] Frequency of Alcohol Consumption Monthly or less [facility] Start: 09-25-2022 End: 04-09-2024 Alcohol intake Lifetime non-drinker (finding) [facility] Start: 09-25-2022 Alcohol Comment caffeine intake: 2-3 cups per day [facility] Start: 09-14-2022 Gender identity Identifies as female gender (finding) [facility] Start: 09-14-2022 Sexual orientation Heterosexual (finding) [facility] Start: 07-14-2023 Alcoholic beverage intake Ex-drinker (finding) [facility] Start: 01-17-2020 Alcohol Comment very rare [facility] Medical Equipment Procedure Code Equipment Code Equipment Origin al Text Equipment Identifier Dates Lens Acrysof Iq Toric 6mm +24.5 Diopter +6 Cylinder 0 D Biconvex Acrylic 13 - [id number] Start: 03-14-2019 Comment on above: Description: -0.57 Lens Acrysof Iq Toric Stableforce 6mm 0 D +22.5 Diopter +2.25 Cylinder - [id number] Start: 03-21-2019 Comment on above: Description: -0.80 Istent Inject - [id number] Start: 03-14-2019 Istent Inject - [id number] Start: 03-21-2019 Cmnt Bn Bio 40gm Rpl [id number] - Sna - [id number] Start: 02-12-2020 Ins Artc 3-5 E-F 11mm Kn Rt Ps - Sna - [id number]/ SNA, [id number] FDA Start: 02-12-2020 Cmpt Fem 5 Kn Rt Persona Strl - Sna - [id number] Start: 02-12-2020 Cmpt Ptlr 32mm Persona Alply - Sna - [id number] Start: 02-12-2020 Bsplt Tib 5d E K n Rt Stm - Sna - [id number] Start: 02-12-2020 Clinical Notes 01-04-2017 to 04-18-2024 Ck Gonzalez, OD - 04/18/2024 11:06 AM BETO Grissom - 04/09/2024 2:30 PM BETO Grissom - 12/19/2023 10:15 AM Alesha Benítez MD - 10/17/2023 1:32 PM EDT Note Date & Type Note Facility 04-18-2024 Note HNO ID: [id number] Author: CK GONZALEZ, OD Service: ? Author Type: COUNTRY PRINTER Type: Progress Notes Filed: 04/18/2024 11:22 Note [...] Gonzalez, OD April 18, 2024 11:21 AM [facility] 04-18-2024 History of Present illness Narrative [...] 2024 11:21 AM documented in this encounter [facility] 04-09-2024 History of Present illness Narrative Images from the original note were not included. HISTORY OF PRESENT ILLNESS: EST PT Myla Pollack is an 73 y.o. @ female. (EST PT) NEW COMPLAINT, (R) SHOULDER DISCOMFORT. SYMPTOMS FOR ABOUT 2 MONTHS, NO KNOWN INJURY. XRAYS 03/08/24 @ [facility] MRI, (R) SHOULDER & C-SPINE 04/02/24 @ [facility] INTERMITTENT RT DIFFUSE RT SHOULDER, ARM, AND [...] Use: Not At Risk (02/27/2019) Received from [facility], [facility] AUDIT-C Frequency of Alcohol Consumption: Monthly [...] requiring urgent evaluation. documented in this encounter [facility] 12-19-2023 History of Present illness Narrative Associated [...] Use: Not At Risk (02/27/2019) Received from [facility], [facility] AUDIT-C Frequency of Alcohol Consumption: Monthly [...] requiring urgent evaluation. documented in this encounter [facility] 10-17-2023 Note HNO ID: [id number] Author: ALESHA SCHULTE MD Service: ? Author [...] TH IOL both eyes - Doing well IAlesha MD, have confirmed and edited as necessary [...] components. Alesha Schulte MD October 17, 2023 [facility] 10-17-2023 History of Present illness Narrative [...] TH IOL both eyes - Doing well IAlesha MD, have confirmed and edited as necessary [...] October 17, 2023 documented in this encounter [facility] 09-05-2023 Note Date of Procedure 09/05/2023 [place] Protocol Safety Checklist Sign In: A moment [...] Post-procedure follow up management communicated. No specimens. [facility] 09-05-2023 Note HNO ID: [id number] Author: ALESHA SCHULTE MD Service: ? Author Type: Physician Type: Progress Notes Filed: 09/05/2023 11:36 Note Text: Tmax: 25, 26; Pachy: 548, 546 Lasers and Surgeries: OD: IOL, istent OS: IOL, istent Ocular Medication Intol and Non-efficacy: - Referred by Dr Saul -F 07/05/22 OD full OS full -OCT 07/06/23 [...] components. Alesha Schulte MD September 05, 2023 [facility] 09-05-2023 History of Present illness Narrative [...] September 05, 2023 documented in this encounter [facility] 07-27-2023 Note Date of Procedure 07/27/2023. Water Pumper Information Game Warden: pd. Reliability Right Eye Good. Left Eye Good. Interpretation Right Eye Normal. Left Eye Normal. [facility] 07-27-2023 Note Date of Procedure 07/27/2023. Water Pumper Information Game Warden: ELIZABETH. Quality Right Eye Good. Left Eye Good. NFL Interpretation Right Eye Superior loss. Left Eye Normal. [facility] 07-27-2023 Note HNO ID: [id number] Author: ALESHA SCHULTE MD Service: ? Author Type: Physician Type: Progress Notes Filed: 07/27/2023 08:40 Note Text: Tmax: 25, 26; Pachy: 548, 546 Lasers and Surgeries: OD: IOL, istent OS: IOL, istent Ocular Medication Intol and Non-efficacy: - Referred by Dr gK HERNÁNDEZ 07/05/22 OD full OS full -OCT [...] agree with all of its relevant components. [facility] 07-27-2023 History of Present illness Narrative [...] its relevant components. documented in this encounter [facility] 07-14-2023 Evaluation + Plan note Associated Problem(s): Lymphedema Compression therapy leg elevation and follow up in the clinic in 1 year. [facility] 07-14-2023 Miscellaneous Notes Associated Problem(s): Lymphedema Compression therapy leg elevation and follow up in the clinic in 1 year. documented in this encounter [facility] 07-14-2023 History of Present illness [...] 1 tablet by mouth in the morning. hzxxfljkny-hjrvnmczueowk-lvvg (FIORICET, ESGIC) 50-325-40 mg per tablet Take [...] the evening. 5 mg M-W-F, 7.5 mg Bor-Yjlq-Lozaq-Sat . anastrozole (ARIMIDEX) 1 mg chemo tablet [...] hematuria Asthma COPD (chronic obstructive pulmonary disease) ([facility]) Headache Hyperlipidemia Osteoarthritis right knee Pulmonary embolism ([facility]) Thrush top partial Vasculitis ([facility]) Visual impairment readers Past Surgical History: Past [...] Performed by Todd Boudreaux Jr., DO at [facility] Social and Family History: Social History Socioeconomic [...] Lynsey Saldana MD, TREVIN, RPVI, FSVS, FACS [facility] This note was created with the assistance of a speech recognition program. While intending to generate a timely document that accurately reflects the content of the visit, no guarantee can be provided that every grammatical or spelling mistake has been or will be identified or corrected. Thank you for your understanding. documented in this encounter [facility] 01-17-2023 History of Present illness [...] others. I have seen and examined Myla Do Jaki. I have discussed the case and the management of this patient's care with the Resident/Fellow, if applicable. I also have reviewed and agree with the assessment and plan as stated above and agree with all of its relevant components. documented in this encounter [facility] 07-05-2022 History of Present illness Narrative [...] its relevant components. documented in this encounter [facility] 03-19-2022 Note PROCEDURE: XR WRIST RT MIN 3 V HISTORY: Unspecified fall ; acute right wrist pain after falling COMPARISON: None. FINDINGS: BONES:No fracture, acute abnormality, or significant arthropathy. SOFT TISSUES:No visible soft tissue swelling. EFFUSION:None visible. OTHER: Negative. IMPRESSION: 1. No acute bone abnormality. 2. Multifocal mild degenerative changes. Electronically authenticated by: ADIEL MCCONNELL Date: 2022-03-19 10:26 [facility] 03-11-2022 Miscellaneous Notes *SECOND ATTEMT* Called patient and LVM for her to call back and schedule an appt with for glaucoma suspect. Referral from Dr. Sebastian. Called patient and LVM to schedule an appointment with Dr. Schulte for GLC suspect. documented in this encounter [facility] 01-21-2022 Progress note Note Date/Time January 21, 2022 10:15[facility] [place] [id number] Hem/Onc Follow Up Note - OP Signed Patient: Myla Pollack MR#: [id number] : 1950 Acct:[id number] Age/Sex: 71 / F Type: REG RCR [...] of anastrozole, we will now follow annually [facility] patient wishes to return to oncology). We will arrange her annual follow-ups after her annual mammograms in January of each year. She also requested refill of breast prosthesis and mastectomy bra. No breast exam due to telephone visit. No skin changes or breast tenderness. No recent f/u by donor recruitment manager in [place]--was reported to have vasculitis 4 years ago--now resolved but still has some mild erythema and swelling of left greater than right leg without pain. Receives Anastrozole due to weak IL expression--no significant myalgias/arthralgias or hot flashes. No [...] pT1c, N0, M0. Tumor was ER negative, IL weak, and HER-2 nonamplified. She underwent right mastectomy at [place] in 02/2015. Completed dose dense AC X4 [...] years of adjuvant therapy. 3. Evaluated by donor recruitment manager in [place] (does not believe she had vasculitis)--no recent [...] inflammatory. She was referred to pulmonary at [place]. Ground glass opacities resolved on PET/CT 08/2017. [...] of Therapies: 1. Right breast mastectomy at [facility] (Dr. Rodriguez) in 02/2015. 2. Completed [...] mg PO BID 90 days #180 caps 05/18/22 [Rx] cyanocobalamin (vitamin B-12) 1,000 mcg tablet,extended [...] nodes positive, pT1c, N0, M0. ER negative, IL weak, and HER-2 nonamplified. (1) Breast cancer, right Qualifiers: Estrogen receptor status: negative Patient sex: female 1. 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 ER negative, IL weak, and HER-2 nonamplified. 2. She underwent mastectomy at [place] in 02/2015. Completed dose dense AC X4 and Taxol X 12 in August 2015. 3. 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 Anastrozole was resumed in 03/2017 4. Saw donor recruitment manager in [place] for persistent leg pain and swelling (he [...] inflammatory. She was referred to pulmonary at [place]. --Followup PET/CT 08/2017 showed resolution of prior [...] for coordination of care (as documented) and rcgw-wd-nkkw counseling of patient and/or family. Dictated By: Claire Duran APRN DD/ [id number] Signed By: <Electronically signed by CHIDI Duran> 01/21/22 [address] [facility] Work Phone: 1(806) 519-258710-20-2021 Progress note Author Kacie Garay [facility] January 21, 2021 8:25pm Note Date/Time January 21, 2021 1 0:34am [facility] [place] [address] Hem/Onc Follow Up Note - OP Signed Patient: Myla Pollack MR#: [id number] : 1950 Acct:[id number] Age/Sex: 70 / F Type: REG RCR [...] [facility] now [facility] patient wishes to return to oncology). We will arrange her annual follow-ups after her annual mammograms in January of each year. She also requested refill of breast prosthesis and mastectomy bra. No breast exam due to telephone visit. No skin changes or breast tenderness. No recent f/u by donor recruitment manager in [place]--was reported to have vasculitis 4 years ago--now resolved but still has some mild erythema and swelling of left greater than right leg without pain. Receives Anastrozole due to weak IL expression--no significant myalgias/arthralgias or hot flashes. No [...] pT1c, N0, M0. Tumor was ER negative, IL weak, and HER-2 nonamplified. She underwent right mastectomy at [place] in 02/2015. Completed dose dense AC X4 [...] years of adjuvant therapy. 3. Evaluated by donor recruitment manager in [place] (does not believe she had vasculitis)--no recent [...] inflammatory. She was referred to pulmonary at [facility]. Ground glass opacities resolved on PET/CT 08/2017. [...] of Therapies: 1. Underwent right mastectomy at [place] in 02/2015. 2. Completed dose dense AC [...] nodes positive, pT1c, N0, M0. ER negative, IL weak, and HER-2 nonamplified. (1) Breast cancer, right Qualifiers: Estrogen receptor status: negative Patient sex: female 1. 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 ER negative, IL weak, and HER-2 nonamplified. 2. She underwent mastectomy at [place] in 02/2015. Completed dose dense AC X4 and Taxol X 12 in August 2015. 3. 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 Anastrozole was resumed in 03/2017 4. Saw donor recruitment manager in [place] for persistent leg pain and swelling (he [...] inflammatory. She was referred to pulmonary at [place]. --Followup PET/CT 08/2017 showed resolution of prior [...] for coordination of care (as documented) and atzl-rw-aspy counseling of patient and/or family. Dictated By: Kacie Garay MD DD/ [id number] Signed By: <Electronically signed by MD Kacie aGray> 01/21/212024 [facility] Work Phone: 1(329) 157-660104-19-2021 Progress note Author Kacie Garay [facility] July 21, 2020 11:38am Note Date/Time July 21, 2020 9:3 9am [facility] [place] [address] Hem/Onc Follow Up Note - OP Signed Patient: Myla Pollack MR#: [id number] : 1950 Acct:[id number] Age/Sex: 70 / F Type: REG RCR Copies to: Kenyetta Reynolds MD~ Subjective Date/Time of Service: Date of Service: 07/21/2020 Time of Service: 09:36 Chief Complaint: Patient has consented to doxy visit for 4 month follow up visitfor breast cancer and to review bone densitometry test. HPI: Patient had video visit ([email or web address]) today for 4-month follow-up and review of [...] of anastrozole, we will now follow annually ([facility] follow[facility] but patient wishes to return to oncology). We will arrange her annual follow-ups after her annual mammograms in January of each year. She also requested refill of breast prosthesis and mastectomy bra. No breast exam due to telephone visit. No skin changes or breast tenderness. No recent f/u by donor recruitment manager in [place]--was reported to have vasculitis 4 years ago--now resolved but still has some mild erythema and swelling of left greater than right leg without pain. Receives Anastrozole due to weak IL expression--no significant myalgias/arthralgias or hot flashes. No [...] pT1c, N0, M0. Tumor was ER negative, IL weak, and HER-2 nonamplified. She underwent right mastectomy at [facility] in 02/2015. Completed dose dense AC X4 [...] years of adjuvant therapy. 3. Evaluated by donor recruitment manager in [place] (does not believe she had vasculitis)--no recent [...] inflammatory. She was referred to pulmonary at [facility]. Ground glass opacities resolved on PET/CT 08/2017. [...] of Therapies: 1. Underwent right mastectomy at [facility] in 02/2015. 2. Completed dose dense AC [...] nodes positive, pT1c, N0, M0. ER negative, IL weak, and HER-2 nonamplified. (1) Breast cancer, right Qualifiers: Estrogen receptor status: negative Patient sex: female 1. 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 ER negative, IL weak, and HER-2 nonamplified. 2. She underwent mastectomy at [facility] in 02/2015. Completed dose dense AC X4 and Taxol X 12 in August 2015. 3. 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 Anastrozole was resumed in 03/2017 4. Saw donor recruitment manager in [place] for persistent leg pain and swelling (he [...] inflammatory. She was referred to pulmonary at [facility]. --Followup PET/CT 08/2017 showed resolution of prior [...] for coordination of care (as documented) and fahc-sp-oyev counseling of patient and/or family. Dictated By: Kacie Garay MD DD/ 5 Signed By: <Electronically signed by MD Kacie Garay> 07/21/20 113 [facility] Work Phone: [phone] Progress note Author Kacie Garay [facility] March 12, 2020 2:49pm Note Date/Time March 12, 2020 9 :56am [facility] [place] [address] Hem/Onc Follow Up Note - OP Signed Patient: Myla Pollack MR#: [id number] : 1950 Acct:[id number] Age/Sex: 69 / F Type: REG RCR [...] or breast tenderness. No recent f/u by donor recruitment manager in [place]--was reported to have vasculitis 4 years ago--now resolved but still has some mild erythema and swelling of left greater than right leg without pain. Receives Anastrozole due to weak IL expression--no significant myalgias/arthralgias or hot flashes. No [...] pT1c, N0, M0. Tumor was ER negative, IL weak, and HER-2 nonamplified. She underwent right mastectomy at [facility] in 02/2015. Completed dose dense AC X4 [...] of extended adjuvant therapy. 3. Evaluated by donor recruitment manager in [place] (does not believe she had vasculitis)--no recent [...] inflammatory. She was referred to pulmonary at [facility]. Ground glass opacities resolved on PET/CT 08/2017. [...] of Therapies: 1. Underwent right mastectomy at [facility] in 02/2015. 2. Completed dose dense AC [...] lymph nodes positive, pT1c, N0,M0. ER negative, IL weak, and HER-2 nonamplified. 2. She underwent mastectomy at [facility] in 02/2015. Completed dose dense AC X4 and Taxol X 12 in August 2015. 3. 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 Anastrozole was resumed in 03/2017 4. Saw donor recruitment manager in [place] for persistent leg pain and swelling (he [...] inflammatory. She was referred to pulmonary at [facility]. --Followup PET/CT 08/2017 showed resolution of prior [...] for coordination of care (as documented) and yfua-ym-rpzu counseling of patient and/or family. Dictated By: Kacie Garay MD DD/ Signed By: <Electronically signed by MD Kacie Garay> 03/12/20 14[address] [facility] Work Phone: [phone] 220-748906-03-2020 Progress note Author Kacie Garay [facility] September 05, 2019 1:07pm Note Date/Time September 05, 2019 10:57 am [facility] [place] [address] Hem/Onc Follow Up Note - OP Signed Patient: Myla Pollack MR#: [id number] : 1950 Acct:[id number] Age/Sex: 69 / F Type: REG RCR [...] or breast tenderness. No recent f/u by donor recruitment manager in [place]--was reported to have vasculitis 3 years ago--now resolved but still has some mild erythema and swelling of left greater than right leg without pain. Receives Anastrozole due to weak IL expression--no significant myalgias/arthralgias or hot flashes. No [...] pT1c, N0, M0. Tumor was ER negative, IL weak, and HER-2 nonamplified. She underwent right mastectomy at [facility] in 02/2015. Completed dose dense AC X4 and Taxol X 12 in August 2015. 2. Anastrozole with calcium and vitamin D started in August 2015. Calcium and vitamin D discontinued 07/2016 Anastrozole stopped in 01/2017 when she developed vasculitis (erythematous rash over legs) although no proven association at this time. Anastrozole was resumed in 03/2017 3. Evaluated by donor recruitment manager in [place] (does not believe she had vasculitis)--no recent [...] inflammatory. She was referred to pulmonary at [facility]. Ground glass opacities resolved on PET/CT 08/2017. [...] of Therapies: 1. Underwent right mastectomy at [facility] in 02/2015. 2. Completed dose dense AC [...] nodes positive, pT1c, N0, M0. ER negative, IL weak, and HER-2 nonamplified. 2. She underwent mastectomy at [facility] in 02/2015. Completed dose dense AC X4 and Taxol X 12 in August 2015. 3. 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 Anastrozole was resumed in 03/2017 4. Saw donor recruitment manager in [place] for persistent leg pain and swelling (he [...] inflammatory. She was referred to pulmonary at [facility]. --Followup PET/CT 08/2017 showed resolution of prior [...] vasculitis but per second opinion from a donor recruitment manager and cat scan technologist in [place] this is not vasculitis. They told her [...] for coordination of care (as documented) and llwn-el-vwvb counseling of patient and/or family. Dictated By: Kacie Garay MD DD/ 1051 Signed By: <Electronically signed by MD Kacie Garay> 09/05/19 6968 [facility] Work Phone: [phone] 233-179711-21-2019 History of Past illness Narrative* Problem Noted Date Resolved Date Combined forms of age-related cataract of both e yes 02/22/2019 03/21/2019 documented as of this encounter (statuses as of 03/11/2022) [facility]11-21-2019 History of Past illness Narrative* Problem Noted Date Resolved Date Combined forms of age-related cataract of both e yes 02/22/2019 03/21/2019 documented as of this encounter (statuses as of 07/05/2022) [facility]11-21-2019 History of Past illness Narrative* Problem Noted Date Diagnosed Date Resolved Date Combined forms of age-relate d cataract of both eyes 02/22/2019 03/21/2019 documented as of this encounter (statuses as of 01/17/2023) [facility]10-21-2019 Progress note Author Kacie Garay [facility] January 22, 2019 9:28pm Note Date/Time January 22, 2019 1 0:40[facility] [place] [id number] Hem/Onc Follow Up Note - OP Signed Patient: Myla Pollack MR#: [id number] : 1950 Acct:[id number] Age/Sex: 68 / F Type: REG RCR [...] or breast tenderness. No recent f/u by donor recruitment manager [facility]--was reported to have vasculitis 2 1/2 years ago--now resolved. Receives Anastrozole due to weak IL expression--no significant myalgias/arthralgias or hot flashes. No bowel or bladder complaints. No interval changes in medical history. We reviewed DEXA scan showing normal bone density 07/17/2018. DIAGNOSIS: 1. 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 Tumor was ER negative, IL weak, and HER-2 nonamplified. She underwent right mastectomy at [facility] in 02/2015. Completed dose dense AC X4 and Taxol X 12 in August 2015. 2. Anastrozole with calcium and vitamin D started in August 2015. Calcium and vitamin D discontinued 07/2016 Anastrozole stopped in 01/2017 when she developed vasculitis (erythematous rash over legs) although no proven association at this time. Anastrozole was resumed in 03/2017 3. Evaluated by donor recruitment manager in [place] (does not believe she had vasculitis)--no recent [...] inflammatory. She was referred to pulmonary at [facility]. Ground glass opacities resolved on PET/CT 08/2017. [...] of Therapies: 1. Underwent right mastectomy at [facility] in 02/2015. 2. Completed dose dense AC [...] 01/20 Copies to: MD Mohsen Degroot MD Hoy,Kenyetta Akbar MD~ Left Screening Full Field digital mammogram [...] nodes positive, pT1c, N0, M0. ER negative, IL weak, and HER-2 nonamplified. 2. She underwent mastectomy at [facility] in 02/2015. Completed dose dense AC X4 and Taxol X 12 in August 2015. 3. 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 Anastrozole was resumed in 03/2017 4. Saw donor recruitment manager in [place] for persistent leg pain and swelling (he [...] inflammatory. She was referred to pulmonary at [facility]. --Followup PET/CT 08/2017 showed resolution of prior [...] vasculitis but per second opinion from a donor recruitment manager and cat scan technologist in [place] this is not vasculitis. They told her [...] for coordination of care (as documented) and jahg-ku-meiv counseling of patient and/or family. Dictated By: Kacie Garay MD DD/ 1039 Signed By: <Electronically signed by MD Kacie Garay> 01/22/19 2[address] [facility] Work Phone: [phone] 743-202404-17-2019 Progress note Author Kacie Garay [facility] July 19, 2018 8:36pm Note Date/Time July 19, 2018 10: 48am [facility] at [address] [address] Hem/Onc Follow Up Note - OP Signed Patient: Myla Pollack MR#: [id number] : 1950 Acct:[id number] Age/Sex: 68 / F Type: REG RCR [...] pT1c, N0, M0. Tumor was ER negative, IL weak, and HER-2 nonamplified. She underwent right mastectomy at [facility] in 02/2015. Completed dose dense AC X4 and Taxol X 12 in August 2015. 2. Anastrazole with calcium and vitamin D started in August 2015, Calcium and vitamin D discontinued 07/2016 Anastrozole stopped in 01/2017 when she developed vasculitis (erythematous rash over legs) although no proven association at this time. Anastrozole was resumed in 03/2017 3. Evaluated by donor recruitment manager in [place] (does not believe she had vasculitis)--no recent [...] inflammatory. She was referred to pulmonary at [facility]. Ground glass opacities resolved on PET/CT 08/2017. [...] or breast tenderness. [place] reported to have vasculitis 2 years ago--now resolved. Receives Anastrozole due to weak IL expression--no significant myalgias/arthralgias or hot flashes. No bowel or bladder complaints. No interval changes in medical history. We reviewed DEXA scan showing normal bone density 07/17/2018. - Summary of Therapies Summary of Therapies: 1. Underwent right mastectomy at [facility] in 02/2015. 2. Completed dose dense AC [...] scan 07/17/2018 reviewed--normal. Annual bilateral mammography at [facility] 01/2018--ordered 6 month f/u mammogram prior to next f/u. Assessment and Plan (1) Breast cancer, right Qualifiers: Estrogen receptor status: negative Patient sex: female 1. 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 ER negative, IL weak, and HER-2 nonamplified. 2. She underwent mastectomy at [facility] in 02/2015. Completed dose dense AC X4 and Taxol X 12 in August 2015. 3. Anastrazole with calcium and vitamin D started in August 2015, Calcium and vitamin D discontinued 07/2016 Anastrozole stopped in 01/2017 when she developed vasculitis although there is no proven association at this time. Anastrozole was resumed in 03/2017 4. Seeing donor recruitment manager in [place] for persistent leg pain and swelling (he [...] inflammatory. She was referred to pulmonary at [facility]. --Followup PET/CT 08/2017 showed resolution of prior [...] unless new symptoms arise. Annual mammogram at [facility] prior to next followup. DEXA normal--f/u in [...] vasculitis but per second opinion from a donor recruitment manager and cat scan technologist in [place] this is not vasculitis. They told her [...] for coordination of care (as documented) and mwyl-kd-tbqc counseling of patient and/or family. Dictated By: Kacie Garay MD DD/ 1048 Signed By: <Electronically signed by MD Kacie Garay> 07/19/185 [facility] Work Phone: 1(296) 983-325410-17-2018 Progress note Author Kacie Graay [facility] January 18, 2018 8:17pm Note Date/Time January 17, 2018 3 :44pm [facility] [place] [address] Hem/Onc Follow Up Note - OP Signed Patient: Myla Pollack MR#: [id number] : 1950 Acct:[id number] Age/Sex: 67 / F Type: REG RCR [...] pT1c, N0, M0. Tumor was ER negative, IL weak, and HER-2 nonamplified. She underwent right mastectomy at [facility] in 02/2015. Completed dose dense AC X4 and Taxol X 12 in August 2015. 2. Anastrazole with calcium and vitamin D started in August 2015, Calcium and vitamin D discontinued 07/2016 Anastrazole stopped in 01/2017 when she developed vasculitis although thereis no proven association at this time. Anastrozole was resumed in 03/2017 3. Now follows with rhematologist in [place] (does not believe she had vasculitis). 4. [...] inflammatory. She was referred to pulmonary at [facility]. Ground glass opacities resolved on PET/CT 08/2017. 5. A focus of increased uptake in the liver of uncertain significance was also identified. On MRI of the liver there was no abnormality found. HPI: Patient returns to the clinic for transfer of care from Dr. Steiner. No changes on self breast exam. No skin changes or breast tenderness. She is seeing a donor recruitment manager in [place]--was reported to have vasculitis of legs about a yearago. Receives Anastrozole due to weak IL expression--no significant myalgias/arthralgias or hot flashes. No bowel or bladder complaints. - Summary of Therapies Summary of Therapies: 1. Underwent right mastectomy at [facility] in 02/2015. 2. Completed dose dense AC [...] no pruritis, no reaction to drugs ONC PMFSH - Medical History Medical history: Cancer - [...] % (Auto) 27.4 % (.) 01/03/17 17:45 Charlotte % (Auto) 12.7 % (.) 01/03/17 17:45 Eos % (Auto) 1.5 % (.) 01/03/17 17:45 Baso % (Auto) 0.6 % (.) 01/03/17 17:45 Neut # (Auto) 4.4 x10E3/uL (1.8-7.7) 01/03/17 17:45 Lymph # (Auto) 2.1 x10E3/uL (1.00-4.8) 01/03/17 17:45 Charlotte # (Auto) 1.0 x10E3/uL (0.0-0.8) H 01/03/17 [...] where applicable. 01/11/2018--left diagnostic mammogram reviewed from [facility] Left breast stable with scattered benign appearing calcifications and benign appearing lymph nodes. BIRADS 2--Benign findings. Assessment and Plan (1) Breast cancer, right Qualifiers: Estrogen receptor status: negative Patient sex: female Status: Chronic 1. 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 ER negative, IL weak, and HER-2 nonamplified. 2. She underwent mastectomy at [facility] in 02/2015. Completed dose dense AC X4 and Taxol X 12 in August 2015. 3. Anastrazole with calcium and vitamin D started in August 2015, Calcium and vitamin D discontinued 07/2016 Anastrazole stopped in 01/2017 when she developed vasculitis although there is no proven association at this time. Anastrozole was resumed in 03/2017 4. Seeing donor recruitment manager in [place] for persistent leg pain and swelling (he [...] inflammatory. She was referred to pulmonary at [facility]. Followup PET/CT 08/2017 showed resolution of prior [...] vasculitis but per second opinion from a donor recruitment manager and cat scan technologist in [place] this is not vasculitis. They told her [...] for coordination of care (as documented) and iaoo-sy-njac counseling of patient and/or family. 25 - 35 minutes Dictated By: Kacie Garay MD DD/ 1543 Signed By: <Electronically signed by Kacie Garay MD> 01/18/182016 [facility] Work Phone: 1([phone]) 462-453705-17-2018 Progress note Author Mohsen Steiner [facility] August 18, 2017 3:25pm Note Date/Time August 18, 2017 3:23p m [facility] [place] [address] Hem/Onc Follow Up Note - OP Signed Patient: Myla Pollack MR#: [id number] : 1950 Acct:[id number] Age/Sex: 67 / F Type: REG RCR [...] % (Auto) 27.4 % (.) 01/03/17 17:45 Charlotte % (Auto) 12.7 % (.) 01/03/17 17:45 Eos % (Auto) 1.5 % (.) 01/03/17 17:45 Baso % (Auto) 0.6 % (.) 01/03/17 17:45 Neut # (Auto) 4.4 x10E3/uL (1.8-7.7) 01/03/17 17:45 Lymph # (Auto) 2.1 x10E3/uL (1.00-4.8) 01/03/17 17:45 Charlotte # (Auto) 1.0 x10E3/uL (0.0-0.8) H 01/03/17 [...] N0, M0. 2. Tumor was ER negative, IL weak, and HER-2 nonamplified. 3. She underwent mastectomy at [facility] in 02/2015. Completed dose dense AC X4 [...] She subsequently had an EUS and Dr eHss noted that the lymph nodes had actually [...] inflammatory. She was referred to pulmonary at [facility] 8. A focus of increased uptake in [...] vasculitis but per second opinion from a donor recruitment manager and cat scan technologist in [place] this is not vasculitis. They told her [...] for coordination of care (as documented) and ucjx-ua-etfa counseling of patient and/or family. Dictated By: Mohsen Steiner MD DD/ 1517 Signed By: <Electronically signed by Mohsen Steiner MD> 08/18/17 1528 [facility] Work Phone: [phone] Progress note Author Mohsen Steiner [facility] July 21, 2017 3:44pm Note Date/Time July 21, 2017 3:4 0pm [facility] [place] [address] Hem/Onc Follow Up Note - OP Signed Patient: Myla Pollack MR#: [id number] : 1950 Acct:[id number] Age/Sex: 67 / F Type: REG RCR Copies to: Pinky Og DO~ Subjective Date/Time of Service: Date of Service: 07/21/2017 Time of Service: 15:39 Chief Complaint: Patient here for four month follow up appointment with labs. HPI: Patient returns to the clinic for a pre-scheduled follow-up visit that reports that 1. She saw a cat scan technologist and donor recruitment manager in [place]. They do not think that she has [...] % (Auto) 27.4 % (.) 01/03/17 17:45 Charlotte % (Auto) 12.7 % (.) 01/03/17 17:45 Eos % (Auto) 1.5 % (.) 01/03/17 17:45 Baso % (Auto) 0.6 % (.) 01/03/17 17:45 Neut # (Auto) 4.4 x10E3/uL (1.8-7.7) 01/03/17 17:45 Lymph # (Auto) 2.1 x10E3/uL (1.00-4.8) 01/03/17 17:45 Charlotte # (Auto) 1.0 x10E3/uL (0.0-0.8) H 01/03/17 [...] N0, M0. 2. Tumor was ER negative, IL weak, and HER-2 nonamplified. 3. She underwent mastectomy at [facility] in 02/2015. Completed dose dense AC X4 [...] inflammatory. She was referred to pulmonary at [facility] 8. A focus of increased uptake in [...] vasculitis but per second opinion from a donor recruitment manager and cat scan technologist in [place] this is not vasculitis. They told her [...] for coordination of care (as documented) and yefh-rm-cteo counseling of patient and/or family. Dictated By: Mohsen Steiner MD DD/ 1539 Signed By: <Electronically signed by Mohsen Steiner MD> 07/21/17 1544 [facility] Work Phone: 1([phone]) 112-783412-22-2017 Progress note Author Mohsen Steiner [facility] March 25, 2017 11:28am Note Date/Time March 25, 2017 11:27am [facility] at [address] [address] Hem/Onc Follow Up Note - OP Signed Patient: Myla Pollack MR#: [id number] : 1950 Acct:[id number] Age/Sex: 66 / F Type: REG RCR Copies to: Pinky Og DO~ Subjective Date/Time of Service: Date of Service: 03/25/2017 Time of Service: 11:25 Chief Complaint: Patient is here to review MRI report and to follow up after seeing the rehabilitation center manager. HPI: Patient returns to the clinic for a pre-scheduled follow-up visit that reports that 1. She was seen at [facility] rheumatology, and from there she was referred to a cat scan technologist in [place]. No final diagnosis has yet been made. 2. She had an MRI of the liver 3. She was seen by pulmonary in [facility] Details: All systems reviewed & no [...] % (Auto) 27.4 % (.) 01/03/17 17:45 Charlotte % (Auto) 12.7 % (.) 01/03/17 17:45 Eos % (Auto) 1.5 % (.) 01/03/17 17:45 Baso % (Auto) 0.6 % (.) 01/03/17 17:45 Neut # (Auto) 4.4 x10E3/uL (1.8-7.7) 01/03/17 17:45 Lymph # (Auto) 2.1 x10E3/uL (1.00-4.8) 01/03/17 17:45 Charlotte # (Auto) 1.0 x10E3/uL (0.0-0.8) H 01/03/17 [...] N0, M0. 2. Tumor was ER negative, IL weak, and HER-2 nonamplified. 3. She underwent mastectomy at [facility] in 02/2015. Completed dose dense AC X4 [...] pulmonary (by her preference to a new rehabilitation center manager at [facility]) 8. A focus of increased uptake in the liver of quasi-significance was also identified. On MRI of the liver there was no abnormality found (2) Pulmonary embolism Status: Chronic She is currently on warfarin (3) Vasculitis Status: Acute She is being seen by rheumatology at [facility]. (4) Lung nodules Status: Resolved [...] for coordination of care (as documented) and gjpq-bp-anui counseling of patient and/or family. Dictated By: Mohsen Steiner MD DD/ 1125 Signed By: <Electronically signed by Mohsen Steiner MD> 03/25/17 1128 [facility] Work Phone: [phone]) 255-298412-13-2017 Progress note Author Mohsen Steiner [facility] March 16, 2017 3:11pm Note Date/Time March 16, 2017 2:57pm [facility] [place] [address] Hem/Onc Follow Up Note - OP Signed Patient: Myla Pollack MR#: [id number] : 1950 Acct:[id number] Age/Sex: 66 / F Type: REG RCR Copies to: Pinky Og DO~ Subjective Date/Time of Service: Date of Service: 03/16/2017 Time of Service: 14:55 Chief Complaint: Patient is here for review of [employer] reports. HPI: Patient returns to the clinic for a pre-scheduled follow-up visit that reports that 1. She was seen at [facility] rheumatology, and from there she was referred to a cat scan technologist in [place]. No final diagnosis has yet been made [...] % (Auto) 27.4 % (.) 01/03/17 17:45 Charlotte % (Auto) 12.7 % (.) 01/03/17 17:45 Eos % (Auto) 1.5 % (.) 01/03/17 17:45 Baso % (Auto) 0.6 % (.) 01/03/17 17:45 Neut # (Auto) 4.4 x10E3/uL (1.8-7.7) 01/03/17 17:45 Lymph # (Auto) 2.1 x10E3/uL (1.00-4.8) 01/03/17 17:45 Charlotte # (Auto) 1.0 x10E3/uL (0.0-0.8) H 01/03/17 [...] N0, M0. 2. Tumor was ER negative, IL weak, and HER-2 nonamplified. 3. She underwent mastectomy at [facility] in 02/2015. Completed dose dense AC X4 [...] pulmonary (by her preference to a new rehabilitation center manager at [facility]) 8. A focus of increased uptake in the liver of quasi-significance was also identified. MRI of the liver has been requested (2) Pulmonary embolism Status: Chronic She is currently on warfarin (3) Vasculitis Status: Acute She was seen by rheumatology at [facility]. (4) Lung nodules Status: Acute [...] for coordination of care (as documented) and pazt-cb-fkql counseling of patient and/or family. Dictated By: Mohsen Steiner MD DD/ [id number] Signed By: <Electronically signed by Mohsen Steiner MD> 03/16/17 1863 [facility] Work Phone: [phone]) [phone] Progress note Author Mohsen Steiner [facility] February 28, 2017 2:51pm Note Date/Time February 28, 2017 2:29pm [facility] at [address] [address] Hem/Onc Follow Up Note - OP Signed Patient: Myla Pollack MR#: [id number] : 1950 Acct:[id number] Age/Sex: 66 / F Type: REG RCR Copies to: Pinky Og DO~ Subjective Date/Time of Service: Date of Service: 02/28/2017 Time of Service: 14:26 Chief Complaint: Patient here to follow up after rheumatology referral. HPI: Patient returns to the clinic for a pre-scheduled follow-up visit that reports that 1. She was seen at [facility] rheumatology ROS Details: All systems [...] tab PO BID 30 Days #74 tab 10/11/17 11/02/17 Rx biotin 1 mg PO DAILY 02/28/17 [...] % (Auto) 27.4 % (.) 01/03/17 17:45 Charlotte % (Auto) 12.7 % (.) 01/03/17 17:45 Eos % (Auto) 1.5 % (.) 01/03/17 17:45 Baso % (Auto) 0.6 % (.) 01/03/17 17:45 Neut # (Auto) 4.4 x10E3/uL (1.8-7.7) 01/03/17 17:45 Lymph # (Auto) 2.1 x10E3/uL (1.00-4.8) 01/03/17 17:45 Charlotte # (Auto) 1.0 x10E3/uL (0.0-0.8) H 01/03/17 [...] N0, M0. 2. Tumor was ER negative, IL weak, and HER-2 nonamplified. 3. She underwent mastectomy at [place] in 02/2015. Completed dose dense AC X4 [...] Acute She was seen by rheumatology at [facility]. The ordered some initial workup [...] for coordination of care (as documented) and lxvg-qn-pzzr counseling of patient and/or family. Dictated By: Mohsen Steiner MD DD/ 1426 Signed By: <Electronically signed by Mohsen Steiner MD> 02/28/17 6065 [facility] Work Phone: 1(240) 622-883711-02-2017 Progress note Author Mohsen Steiner [facility] February 03, 2017 9:03am Note Date/Time February 03, 2017 9 :01am [facility] [place] [address] Hem/Onc Follow Up Note - OP Signed Patient: Myla Pollack MR#: [id number] : 1950 Acct:[id number] Age/Sex: 66 / F Type: REG RCR Copies to: Pinky Og DO~ Subjective Date/Time of Service: Date of Service: 02/03/2017 Time of Service: 08:58 Chief Complaint: Patient here to follow up after EGD and EUS. HPI: Patient returns to the clinic for a pre-scheduled follow-up visit that reports that 1. She had an EUS at [facility] by Dr. Tara Hess and no [...] % (Auto) 27.4 % (.) 01/03/17 17:45 Charlotte % (Auto) 12.7 % (.) 01/03/17 17:45 Eos % (Auto) 1.5 % (.) 01/03/17 17:45 Baso % (Auto) 0.6 % (.) 01/03/17 17:45 Neut # (Auto) 4.4 x10E3/uL (1.8-7.7) 01/03/17 17:45 Lymph # (Auto) 2.1 x10E3/uL (1.00-4.8) 01/03/17 17:45 Charlotte # (Auto) 1.0 x10E3/uL (0.0-0.8) H 01/03/17 [...] N0, M0. 2. Tumor was ER negative, IL weak, and HER-2 nonamplified. 3. She underwent mastectomy at [facility] in 02/2015. Completed dose dense AC X4 [...] Status: Acute She was referred to the [facility] but her appointment is in April [...] for coordination of care (as documented) and aheb-ow-ufqu counseling of patient and/or family. Dictated By: Mohsen Steiner MD DD/ 0858 Signed By: <Electronically signed by Mohsen Steiner MD> 02/03/17 0903 [facility] Work Phone: 1(260) 997-935110-12-2017 Progress note Author Mohsen Steiner [facility] January 12, 2017 10:59pm Note Date/Time January 12, 2017 1 0:57pm [facility] at [address] [address] Hem/Onc Follow Up Note - OP Signed Patient: Myla Pollack MR#: [id number] : 1950 Acct:[id number] Age/Sex: 66 / F Type: REG RCR Copies to: Pinky Og DO~ Subjective Date/Time of Service: Date of Service: 01/12/2017 Time of Service: 22:52 Chief Complaint: Patient is here to follow up PET scan results. HPI: Patient returns to the clinic for a pre-scheduled follow-up visit that reports that 1. She was diagnosed with vasculitis at [facility] 2. She was found to have [...] % (Auto) 27.4 % (.) 01/03/17 17:45 Charlotte % (Auto) 12.7 % (.) 01/03/17 17:45 Eos % (Auto) 1.5 % (.) 01/03/17 17:45 Baso % (Auto) 0.6 % (.) 01/03/17 17:45 Neut # (Auto) 4.4 x10E3/uL (1.8-7.7) 01/03/17 17:45 Lymph # (Auto) 2.1 x10E3/uL (1.00-4.8) 01/03/17 17:45 Charlotte # (Auto) 1.0 x10E3/uL (0.0-0.8) H 01/03/17 [...] (9-23) 01/03/17 17:45 Creatinine 1.00 mg/dL (0.44-1.03) 10/02/17 17:45 Est GFR ( Amer) > 60 [...] N0, M0. 2. Tumor was ER negative, IL weak, and HER-2 nonamplified. 3. She underwent mastectomy at [facility] in 02/2015. Completed dose dense AC X4 [...] We will be referring her to the [facility] for evaluation and management. (4) Lung [...] for coordination of care (as documented) and anvo-mk-dfpk counseling of patient and/or family. Dictated By: Mohsen Steiner MD DD/ 51 Signed By: <Electronically signed by Mohsen Steiner MD> 01/12/17 2259 [facility] Work Phone: 1(675) [phone] Progress note Author Mohsen Steiner [facility] January 05, 2017 4:45pm Note Date/Time January 05, 2017 4: 38pm [facility] at [address] [address] Hem/Onc Follow Up Note - OP Signed Patient: Myla Pollack MR#: [id number] : 1950 Acct:[id number] Age/Sex: 66 / F Type: REG RCR cc: Pinky Og DO~ Subjective Date/Time of Service: Date of Service: 01/05/2017 Time of Service: 16:37 Chief Complaint: Patient is here for follow up to CT scan patient has been having ongoing vascular problems. HPI: Patient returns to the clinic for a pre-scheduled follow-up visit that reports that 1. She was diagnosed with vasculitis at [facility] 2. She was found to have [...] % (Auto) 27.4 % (.) 01/03/17 17:45 Charlotte % (Auto) 12.7 % (.) 01/03/17 17:45 Eos % (Auto) 1.5 % (.) 01/03/17 17:45 Baso % (Auto) 0.6 % (.) 01/03/17 17:45 Neut # (Auto) 4.4 x10E3/uL (1.8-7.7) 01/03/17 17:45 Lymph # (Auto) 2.1 x10E3/uL (1.00-4.8) 01/03/17 17:45 Charlotte # (Auto) 1.0 x10E3/uL (0.0-0.8) H 01/03/17 [...] N0, M0. 2. Tumor was ER negative, IL weak, and HER-2 nonamplified. 3. She underwent mastectomy at [facility] in 02/2015. Completed dose dense AC X4 [...] that in November, she was admitted at [facility] and was diagnosed with vasculitis affecting [...] for coordination of care (as documented) and nlrf-fn-vjoa counseling of patient and/or family. Dictated By: Mohsen Steiner MD DD/ 1637 Signed By: <Electronically signed by Mohsen Steiner MD> 01/05/17 1645 [facility] Work Phone: 1(781) 494-625810-03-2017 Progress note Author Jefferson Rice [facility] January 04, 2017 11:22am Note Date/Time January 04, 2017 11 :22am [facility] [place] [address] Hem/Onc Follow Up Note - OP Signed Patient: Myla Pollack MR#: [id number] : 1950 Acct:[id number] Age/Sex: 66 / F Type: REG RCR [...] Prescription was E-prescribed to her pharmacy at [facility]. 15 mg twice daily, for 3 weeks, [...] for coordination of care (as documented) and naht-ir-eyej counseling of patient and/or family. Dictated By: Jefferson Rice MD DD/ 1120 Signed By: <Electronically signed by Jefferson Rice MD> 01/04/17 1122 [facility] Work Phone: Evaluation note* Diagnosis Onset Date Resolution Status Breast cancer, right chronic Encounter for monitoring anastrozole therapy chronic Osteoarthritis of knees, bilateral chronic Pulmonary embolism chronic Screening for osteoporosis c hronic Cutaneous leukocytoclastic angiitis resolved History of hypercalcemia res olved Hypercalcemia resolved Lung nodules resolved Neuropathy resolved Vasculitis resolved [facility] Work Phone: Evaluation note* Diagnosis Primary open-angle glaucoma, bilateral, mild stage- Primary [facility] Primary open-angle glaucoma, bilateral, mild stage- Primary [facility] Diagnosis Primary open-angle glaucoma, bilateral, mild stage- [facility] Primary open-angle glaucoma, bilateral, mild stage- Primary [facility] Diagnosis Onset Date Resolution Status Breast cancer, right chronic Screening for osteoporosis c hronic Neuropathy resolved Breast cancer, right chronic Encounter for monitoring anastrozole therapy chronic Osteoarthritis of knees, bilateral chronic Pulmonary embolism chronic Screening for osteoporosis c hronic Cutaneous leukocytoclastic angiitis resolved History of hypercalcemia res olved Hypercalcemia resolved Lung nodules resolved Neuropathy resolved Vasculitis resolved [facility] Work Phone: Evaluation note* Diagnosis Acute right hip pain- Primary Trochanteric bursitis of right hip Gluteal tendonitis of right buttock documented in this encounter [facility]* Diagnosis Acute pain of right shoulder- Primary Neck pain Cervicalgia documented in this encounter [facility]* Diagnosis Primary open-angle glaucoma, bilateral, mild stage- Primary PCO (posterior capsular opacification), bilateral After-cataract, unspecified Dry eye syndrome of bilateral lacrimal glands Tear film insufficiency, unspecified [facility] Diagnosis Lymphedema- Primary Other noninfectious lymphedema documented in this [facility] SystemInstructionsNot on filedocumented in this encounter [facility] Author Lynsey [facility] January 30, 2024 11:05am Note Date/Time January 30, 2024 1 0:16am [facility] [place] [address] Cancer Center Note Signed Patient: Myla Pollack MR#: [id number] : 1950 Acct:[id number] Age/Sex: 73 / F Type: DEP AMB Date of Service: 01/30/24 Copies to: Kenyetta Reynolds MD~ Assessment & Plan A/P (1) Breast cancer, right: Plan: Estrogen receptor status: negative Patient sex: female 1. 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 ER negative, IL weak, and HER-2 nonamplified. 2. She underwent mastectomy at [place] in 02/2015. Completed dose dense AC X4 and Taxol X 12 in August 2015. 3. 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 Anastrozole was resumed in 03/2017 4. Saw donor recruitment manager in [place] for persistent leg pain and swelling (he [...] inflammatory. She was referred to pulmonary at [place]. --Followup PET/CT 08/2017 showed resolution of prior [...] Instructions: Follow up one year with Dr Jarrod after screening mammogram. CHEMO PLAN No Active [...] changes on self breast exam. Screening left nlfcxsiyt94/19/2023 without recurrence. No systemic symptoms of recurrence, [...] [facility] will now follow [facility] patient wishes to return to oncology). We will arrange her annual follow-ups after her annual mammograms in January of each year. She also requested refill of breast prosthesis and mastectomy bra. No breast exam due to telephone visit. No skin changes or breast tenderness. No recent f/u by donor recruitment manager in [place]--was reported to have vasculitis 4 years ago--now resolved but still has some mild erythema and swelling of left greater than right leg without pain. Receives Anastrozole due to weak IL expression--no significant myalgias/arthralgias or hot flashes. No [...] pT1c, N0, M0. Tumor was ER negative, IL weak, and HER-2 nonamplified. She underwent right mastectomy at [place] in 02/2015. Completed dose dense AC X4 [...] years of adjuvant therapy. 3. Evaluated by donor recruitment manager in [place] (does not believe she had vasculitis)--no recent [...] inflammatory. She was referred to pulmonary at [place]. Ground glass opacities resolved on PET/CT 08/2017. [...] of Therapies: 1. Right breast mastectomy at [facility] (Dr. Rodriguez) in 02/2015. 2. Completed [...] hx: breast cancer and go over mamogram. [facility] Social History Social History (Updated 01/30/24 @ 10:21 by MAGUI Siu) Smoking status: Never smoker Within the past [...] By: <Electronically signed by CHIDI Land> 01/30/24 1104 [facility] Work Phone: Summary Purpose Family History No [...] DIRECTED, Starting on 01/17/23 at 0830, Until 01/17/23 at 2028, Administer for applanation tonometry. In the event of a Fluress shortage, administer [place]-Fluor 1 drop into both eyes as directed for applanation tonometry Given 01/17/2023 8:30 AM EDT 1 Drop Reason for Referral Specialty Diagnoses / Procedures Referred By Contac t Referred To Contact Orthopaedic Surgery Diagnoses Trochanteric bursitis of right hip Gluteal tendonitis of right buttock Procedures L Inj/Asp: R greater trochanteric bursa Dino George, BET[address] [place] [address] Referral ID Status Reason Start Date Expiration Date V isits Requested Visits Authorized [id number] Authorized 12/19/2023 06/16/2024 1 1 Additional Source Comments INFORMATION SOURCE (unrecogn ized section and content) DATE CREATED AUTHOR 09/27/2017 [facility] DATE CREATED AUTHOR AUTHOR'S ORGANIZ ATION 01/18/2018 [facility] DATE CREATED AUTHOR AUTHOR'S ORGANIZ ATION 08/05/2018 [facility] DATE CREATED AUTHOR AUTHOR'S ORGANIZ ATION 09/10/2022 [facility] DATE CREATED AUTHOR AUTHOR'S ORGANIZ ATION 07/15/2023 [facility] DATE CREATED AUTHOR AUTHOR'S ORGANIZ ATION 01/31/2024 [facility] DATE CREATED AUTHOR AUTHOR'S ORGANIZ ATION 04/15/2024 [facility] EPIC DATE CREATED AUTHOR AUTHOR'S ORGANIZ ATION 04/21/2024 [facility] DATE CREATED AUTHOR AUTHOR'S ORGANIZ ATION 05/22/2024 [facility] Care Teams (unrecognized sec tion and [...] Kenyetta Reynolds MD Primary Care Provider Active Ios Developer Relationship Specialty Start Date End Date Kenyetta Reynolds MD [address] [place] [address] PCP - General Family Medicine 03/14/19 Ios Developer Relationship Specialty Start Date End Date Kenyetta Reynolds MD PCP - General Family Medicine 03/14/19 Ios Developer Relationship Specialty Start Date End Date Kenyetta Reynolds MD PCP - General Family Medicine 03/14/19 Ios Developer Relationship Specialty Start Date End Date Kenyetta Reynolds MD [address] [place] [address] PCP - General Family Medicine 09/15/22 Ios Developer Relationship Specialty Start Date End Date Kenyetta Reynolds MD PCP - General Family Medicine 03/14/19 Ios Developer Relationship Specialty Start Date End Date Kenyetta Reynolds MD PCP - General Family Medicine 03/14/19 Ios Developer Relationship Specialty Start Date End Date Kenyetta Reynolds MD PCP - General Family Medicine 03/14/19 Ios Developer Relationship Specialty Start Date End Date Kenyetta Reynolds MD [address] [place] [address] PCP - General Family Medicine 09/15/22 Ios Developer Relationship Specialty Start Date End Date Kenyetta Reynolds MD [address] [place] [address] PCP - General Family Medicine 09/15/22 Ios Developer Relationship Specialty Start Date End Date Kenyetta Reynolds MD [address] [place] [address] PCP - General Family Medicine 09/15/22 Ios Developer Relationship Specialty Start Date End Date Kenyetta Reynolds MD [address] [place] [address] PCP - General Family Medicine 09/15/22 Ios Developer Relationship Specialty Start Date End Date Kenyetta Reynolds MD [address] [place] [address] PCP - General Family Medicine 12/20/19 Goals [...] or prosecute any alcohol or drug abuse patient.[facility] HospitalIn the event this information is protected by the Federal Confidentiality of Alcohol and Drug Abuse Patient Records regulations: The Federal rules restrict any use of the information to criminally investigate or prosecute any alcohol or drug abuse patient.[facility] HospitalIn the event this information is protected by the Federal Confidentiality of Alcohol and Drug Abuse Patient Records regulations: The Federal rules restrict any use of the information to criminally investigate or prosecute any alcohol or drug abuse patient.[facility] Hospital[facility] the event this information is protected by the Federal Confidentiality of Alcohol and Drug Abuse Patient Records regulations: The Federal rules restrict any use of the information to criminally investigate or prosecute any alcohol or drug abuse patient.[facility] HospitalIn the event this information is protected by the Federal Confidentiality of Alcohol and Drug Abuse Patient Records regulations: The Federal rules restrict any use of the information to criminally investigate or prosecute any alcohol or drug abuse patient.[facility] HospitalIn the event this information is protected by the Federal Confidentiality of Alcohol and Drug Abuse Patient Records regulations: The Federal rules restrict any use of the information to criminally investigate or prosecute any alcohol or drug abuse patient.[facility] HospitalIn the event this information is protected by the Federal Confidentiality of Alcohol and Drug Abuse Patient Records regulations: The Federal rules restrict any use of the information to criminally investigate or prosecute any alcohol or drug abuse patient.[facility] Reason for Visit (unrecogniz ed section [...] BE BASED ON THE PRIMARY CLINICAL RECORDS. [employer] provides no warranty or guarantee of the accuracy or completeness of information in this document.
--- NOTE | 2024-05-30 11:47 | PM.CN ---
Consult Note: HPI Data of Consult Patient: known to practice within the last 3 years Requesting Physician: Magali Castle NP Primary Care Provider: Guille Reynolds MD Consult Narrative Reason for consult: establish Narrative: Myla Pollack a pleasant 74 year old female presents for evaluation of severe neck pain. Pt has been experiencing intermittently severe neck pain increasing since february of 2024, pain has not responded to PT/HEP, tylenlol, heat/ice, or NSAIDs. of note pt is on coumadin and should avoid NSAIDs. initially in february when the pain started it was accompanied with right arm pain, however that has significantly improved. Pts most significant pain is axial neck pain with headaches 3+ times a week. pain currently 2/10, increasing to 6/10 with housework and looking up or down. failed tylenol, currently utilizing prn motrin and lyrica without improvement. recently underwent bilateral C2-3 C3-4 MBB #1 with >80% improvement in pain and functional ability immediately following and hours after the procedure. cc:: CC: Magali Castle NP Review of Systems ROS Status of ROS 10 or more systems reviewed and unremarkable except as noted in history and below Musculoskeletal Reports: neck pain; Denies: extremity pain PFSH [facility] Medical History (Updated 04/19/24 @ 14:18 by Magali Castle NP) Hammertoe of left foot ?M20.42 - Other hammer toe(s) (acquired), left foot (ICD-10) Other osteonecrosis, left foot ?M87.875 - Other osteonecrosis, left foot (ICD-10) Hallux rigidus, left foot ?M20.22 - Hallux rigidus, left foot (ICD-10) Nasal polyp ?J33.9 - Nasal polyp, unspecified (ICD-10) Neuropathy ?G62.9 - Polyneuropathy, unspecified (ICD-10) Osteoarthritis ?M19.90 - Unspecified osteoarthritis, unspecified site (ICD-10) Arthritis ?M19.90 - Unspecified osteoarthritis, unspecified site (ICD-10) Pulmonary embolism ?I26.99 - Other pulmonary embolism without acute cor pulmonale (ICD-10) Chronic obstructive pulmonary disease ?J44.9 - Chronic obstructive pulmonary disease, unspecified (ICD-10) Asthma ?J45.909 - Unspecified asthma, uncomplicated (ICD-10) Migraine ?G43.909 - Migraine, unspecified, not intractable, without status migrainosus (ICD-10) Cataract ?H26.9 - Unspecified cataract (ICD-10) Varicose vein of leg ?I83.90 - Asymptomatic varicose veins of unspecified lower extremity (ICD-10) Painful orthopaedic hardware ?T84.84XA - Pain due to internal orthopedic prosthetic devices, implants and grafts, initial encounter (ICD-10) Hallux rigidus ?M20.20 - Hallux rigidus, unspecified foot (ICD-10) Hammertoe ?M20.40 - Other hammer toe(s) (acquired), unspecified foot (ICD-10) Hallux valgus ?M20.10 - Hallux valgus (acquired), unspecified foot (ICD-10) Breast cancer ?C50.919 - Malignant neoplasm of unspecified site of unspecified female breast (ICD-10) Surgical History (Updated 04/19/24 @ 14:47 by Elisabeth Walters) History of esophagogastroduodenoscopy (EGD) ?Z98.890 - Other specified postprocedural states (ICD-10) History of cataract extraction ?Z98.49 - Cataract extraction status, unspecified eye (ICD-10) History of colonoscopy ?Z98.890 - Other specified postprocedural states (ICD-10) H/O mastectomy ?Z90.10 - Acquired absence of unspecified breast and nipple (ICD-10) History of carpal tunnel release ?Z98.890 - Other specified postprocedural states (ICD-10) History of foot surgery ?Z98.890 - Other specified postprocedural states (ICD-10) History of foot surgery ?Z98.890 - Other specified postprocedural states (ICD-10) History of arthroplasty of knee ?Z96.659 - Presence of unspecified artificial knee joint (ICD-10) Family History Mother Pancreatic cancer Other Family history of diabetes mellitus Family history of heart disease Family history of hypertension Family history of myocardial infarction Family history of pancreatic cancer Social History Within the past year, how often did you have a drink containing alcohol: never Score interpretation: A score less than 3 is consistent with normal alcohol consumption. 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 [employer] Highest level of school completed/degree received: high school graduate Meds Home Medications and Allergies Home Medications ?Medication ?Instructions ?Recorded ?Confirmed ?Type atorvastatin 20 mg tablet 20 mg PO QDAY 10/13/22 05/14/24 History cyclosporine 0.05 % eye drops in a 1 drp ophthalmic (eye) Q12H 10/13/22 05/14/24 History dropperette (Restasis) fluticasone propionate 50 2 spray intranasal Q12H 10/13/22 05/14/24 History mcg/actuation nasal spray,suspension montelukast 10 mg tablet 10 mg PO .QHS 10/13/22 05/14/24 History pregabalin 75 mg capsule 75 mg PO Q12H 10/13/22 05/14/24 History warfarin 5 mg tablet (Jantoven) 7.5 mg PO QDAY 10/13/22 05/14/24 History fluticasone furoate 100 1 inh inhalation DAILY 04/19/24 05/14/24 History mcg-vilanterol 25 mcg/dose inhalation powder (Breo Ellipta) sumatriptan succinate 100 mg tablet 100 mg PO 04/19/24 History Allergies Allergy/AdvReac Type Severity Reaction Status Date / Time Sulfa (Sulfonamide Allergy Unknown Verified 05/14/24 09:35 Antibiotics) Exam Constitutional Documenting provider has reviewed patient's vital signs: yes Common normals: no apparent distress, oriented x3, healthy appearing, alert and well nourished General appearance: cooperative [facility] Common normals: normocephalic, hearing grossly normal bilaterally and moist oral mucous membranes Head and scalp: normocephalic Eye Common normals: PERRL Pupil: PERRL Neck & C-Spine Common normals: full ROM General: normal visual inspection Cervical spine: cervical ROM abnormal, pain with cervical ROM and cervical spine tenderness; no paracervical muscle spasm, no trapezius muscle tenderness and Lhermitte's sign negative Other: negative spurlings sensation intact BUE strength 5/5 in BUE tenderness over bilateral greater occipital nerves positive facet pain and loading C2-5 Chest Common normals: inspection of chest normal Respiratory Common normals: normal respiratory effort, no retractions and no use of accessory muscles Neuro Common normals: oriented x3, CN's II-XII intact bilaterally, moves all extremities, no focal motor deficits, no sensory deficits noted and deep tendon reflexes 2+ bilaterally Sensorium/orientation: alert Motor exam: strength 5/5 throughout and no movement abnormalities noted Psych Common normals: mental status grossly normal, thought process normal, cooperative, affect normal, speech normal and activity/motor behavior normal Speech: normal speech Thought process: normal thought process Results Additional Findings Additional findings: There are moderate disc osteophyte complex associated with uncovertebral joint arthrosis from C3 to T1 contributing to neuroforaminal and canal stenosis. At the level of C2-C3, there is no neuroforaminal narrowing or canal stenosis. At the level of C3-C4, there is mild bilateral neuroforaminal narrowing and mild canal stenosis. At the level of C4-C5, there is severe bilateral neuroforaminal narrowing and severe canal stenosis. At the level of C5-C6, there is mild bilateral neuroforaminal narrowing and mild canal stenosis. At the level of C6-C7, there is mild right and moderate left neuroforaminal narrowing and mild canal stenosis. Level of C7-T1 is unremarkable. No definite muscular or ligamentous injury is noted. Assessment and Plan Assessment and Plan (1) Cervical spondylosis: Assessment and Plan: The patient has had over 3 months of moderate to severe neck pain with functional impairment and inadequate response to conservative care including NSAIDS (unless there are contraindication such as concurrent blood thinners), multiple oral or topical pain medications, and home exercise program/physical therapy.? Patient has completed >6 weeks of guided home exercise program and/or formal physical therapy program without relief of their symptoms.? I have reviewed the imaging of the cervical spine and no red flags were identified.? ? NIKOLAY 4%, moderate to severe pain We discussed the risks and benefits of the procedure with the patient, and we are NOT planning on using sedation as outlined in the guidelines from Medicare unless there is a documented reason that sedation would be strongly recommended.?? ?The procedure will be completed with fluoroscopic guidance.? (2) Cervical spinal stenosis: (3) Degenerative disc disease, cervical: Plan proceed with bilateral C2-3 C3-4 MBB #2 working towards RFA to improve axial neck pain and headaches change topical cream formulation, remove gabapentin per pt request, TID to QID as needed for pain f/u after procedure
== END 2024-05-30 11:27 | disposition home or self-care (01) ==
LOC: PM 11:27
PROVIDERS: PCP Family Medicine; Visit Provider Nurse Practitioner
DX: M47.812 Spondylosis without myelopathy or radiculopathy, cervical region (principal); M48.02 Spinal stenosis, cervical region; M50.30 Other cervical disc degeneration, unspecified cervical region
CPT/HCPCS: G0463

== ENCOUNTER 2024-06-03 07:22 | Outpatient (RCR) | payer MEDICARE, OTHER, SELFPAY | END 2024-06-29 13:43 | disposition home or self-care (01) | LOC: MM 07:22 | PROVIDERS: PCP Family Medicine; Visit Provider Internal Medicine | DX: Z51.81 Encounter for therapeutic drug level monitoring (principal); Z79.01 Long term (current) use of anticoagulants; I26.99 Other pulmonary embolism without acute cor pulmonale | CPT/HCPCS: 85610; G0463 ==

== ENCOUNTER 2024-06-11 09:56 | Day surgery (SDC) | payer MEDICARE, OTHER, SELFPAY ==
[2024-06-11 10:14] VITALS: BP 139/85; PULSE 89; TEMP 36.4; O2SAT 98
--- OUTSIDE RECORDS SUMMARY | 2024-06-11 10:18 | XMS_ITS | CCD ---
Author Organization [facility] Care Team Providers Care Yarn Finisher Name Role Phone Demarco Hess Unavailable Unavailable [...] Provider MD Kenyetta Reynolds Primary Care Provider [phone] Kenyetta Reynolds MD Primary Care Provider [phone] Kenyetta Reynolds MD Primary Care Provider [phone] CORAWWAD, COVARRUBIAS H Attending Unavailable FAWWAD, COVARRUBIAS [...] Provider MD Kenyetta Reynolds Primary Care Provider [phone] Kenyetta Reynolds MD Primary Care Provider LYNSEY SADLANA Attending Unavailable KENYETTA REYNOLDS Referring Unavailable KENYETTA REYNOLDS Primary Care Unavailable Kenyetta Reynolds MD Primary Care Provider MD Christian Steiner Other Provider [phone] MD Kacie Garay Attending Provider MD Kenyetta Reynolds Primary Care Provider [phone] Christian Steiner Consulting Unavailable Kacie Garay Admitting [...] Unavailable Kenyetta Reynolds MD Primary Care Provider [phone] Nicho FERGUSON, Lizzie Little Attending Unavailable Allergies Allergy Classification Reported Allergen(s) Allergy Type Date of Onset Reaction(s) Facility Sulfonamides (antibiotic) (1 source) Sulfonamides (Antibiotic) Drug Allergy 9 Unknown [facility] (17 sources) Sulfonamides (Antibiotic); 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: [SULFA (SULFONAMIDE ANTIBIOTICS)] Drug Allergy 9 Unknown [facility] (1 source) Sulfonamides (Antibiotic) Drug allergy (disorder) 5 [facility] (8 sources) Sulfamethoxazole / Trimethoprim Drug Allergy 1 Unknown [facility] (1 source) Sulfonamides (Antibiotic) Drug allergy (disorder) 4 [facility] Medications Current Medications Medication Drug [...] by mouth every six hours as needed gnyfmwntbc-zdqtoebmnzdsb-tuqvireg 50-325 -40 MG tablet Take 1 tablet by mouth every 6 (six) hours if needed. 0 Active End: 01-17-2023 acetaminophen 325 mg-caffein e 40 mg-butalbital 50 mg (FIORICET) per tablet zsipommdlj-pqdlzxlhsvwit-ehkopkec 50 mg-325 mg-40 mg tablet 0 01/17/2023 [...] Oral Daily July 19, 2018 10:42am 07-19-2018 [facility] ([id number]) 07/19/2018 Active take 1 tablet by mouth in the mo rning cholecalciferol (D3-5) 5,000 Units tablet Take 5,000 Units by mouth in the morning. Active Comment on above: Cholecalciferol Chol ecalciferol (Vitamin D3) Active 1000 UNIT Oral Daily July 19, 2018 10:42am 07-19-2018 [facility] ([id number]) CHONDROITIN SULFATE A ORAL (14 sources) take [...] Twice daily March 25, 2017 10:57am 03-25-2017 [facility] ([id number]) 03/25/2017 Active Comment on above: Linseed Oil Flaxseed Oil Active 1000 MG Oral Twice daily March 25, 2017 10:57am 03-25-2017 [facility] ([id number]) Magnesium (16 sources) take 1 mg by [...] Oral Daily January 05, 2017 3:53pm 01-05-2017 [facility] ([id number]) 01/05/2017 Active Comment on above: Magnesium Oxide Magn esium Oxide Active 250 MG Oral Daily January 05, 2017 3:53pm 01-05-2017 [facility] ([id number]) montelukast 10 mg oral tablet (19 sources) [...] puff(s) by inhalation every twenty-four hours Tiotropium [place] (Spiriva Respimat) 2.5 mcg/actuation Mist Discontinued 2 [...] 3 01-21-2022 Episodic Other aftercare (1 source) senior care (current) use of anticoagulants; 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: [FCI CURRNT USE ANTICOAGULANTS] Onset: 3 Episodic Other [...] sources) Long-term current use of anticoagulant; 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] Onset: 02-02-2019 Resolved: 09-14-2022 07-05-2022 Episodic Other aftercare (15 sources) Long-term current use of drug therapy; 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: [Other penitentiary (current) drug therapy] Onset: 03-22-2022 Resolved: 09-14-2022 07-05-2022 Episodic Other aftercare (1 source) Other penitentiary (current) drug therapy; 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] Onset: 03-22-2022 Episodic Other [...] 07-05-2022 Episodic Unclassified (1 source) HEALTH MAINTENANCE 52105 Z00.00 Onset: 01-28-2017 Urinary tract infections (8 sources) Acute cystitis; 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: [Acute cystitis without hematuria] Onset: 10-19-2019 Resolved: 06-13-2023 06-13-2023 Episodic Results Test Name Value Interpretation Reference Range Facility MM screening mammo LT w/CADo n 01-23-2024 MM screening mammo LT w/CAD [facility] [place] [address] [place] [address] Mammography Report Signed Patient: Myla Pollack MR#: [id number] : 1950 Acct:[id number] Age/Sex: 73 / F ADM Date: 01/23/24 Loc: Room: Type: [facility] RCR Attending Dr: Kacie Garay MD [...] José Sandoval M.D.01/23/2024 10:09 AM Dictation Location: [facility] Transcribed By: [facility] 01/23/24 1009 Dictated By: José Sandoval DO 01/23/24 1008 Signed By: 01/23/24 1009 Normal [facility] No Panel Informationon 12-18 [...] and draped in the usual sterile fashion. [facility] LASER TRABECULOPLASTY OD (RI GHT EYE)on 09-05-2023 [facility] OCT OPTIC NERVE CIRRUS OU (B OTH EYES)on 07-27-2023 [facility] Radiology Study observation (narrative) [facility] VISUAL FIELD 24-2 OU (BOTH E YES)on 07-27-2023 [facility] Radiology Study observation (narrative) [facility] MRI WRIST RT WO CONon [...] DINO GREGORY Date: 2022-06-20 13:14 Normal [facility] INSULINon 04-29-2022 Insulin 15.6 uIU/mL Normal 2.6-24.9 [facility] Comment on above: Performed By: #### I NSULIN #### [facility] [address] [place] [address] Dr. Marizol Macedo CBC AUTO DIFFon 04-28-2022 BASO # 0.0 103/ul Normal 0.0-0.1 [facility] Comment on above: Performed By: #### C BC #### [facility] [address] [place] [address] Dr. Marizol Macedo Basophils/100 WBC (Bld) 0.3 % Normal 0.2-2.0 [facility] Comment on above: Performed By: #### C BC #### [facility] [address] [place] [address] Dr. Marizol Macedo EO # 0.1 103/ul Normal 0.0-0.7 [facility] Comment on above: Performed By: #### C BC #### [facility] [address] [place] [address] Dr. Marizol Macedo Eosinophils/100 WBC (Bld) 1.0 % Normal 0.9-7.0 [facility] Comment on above: Performed By: #### C BC #### [facility] [address] [place] [address] Dr. Marizol Macedo Erythrocyte distribution width (RBC) [Ratio] 12.6 % Normal 11.0-15.0 [facility] Comment on above: Performed By: #### C BC #### [facility] [address] [place] [address] Dr. Marizol Macedo Hematocrit (Bld) [Volume fraction] 43.4 % Normal 36.0-48.0 [facility] Comment on above: Performed By: #### C BC #### [facility] [address] [place] [address] Dr. Marizol Macedo Hemoglobin (Bld) [Mass/Vol] 14.1 g/dL Normal 12.0-16.0 [facility] Comment on above: Performed By: #### C BC #### [facility] [address] [place] [address] Dr. Marizol Macedo IG # 0.02 10e3/ul Normal 0.00-0.03 [facility] Comment on above: Performed By: #### C BC #### [facility] [address] [place] [address] Dr. Marizol Macedo IG % 0.3 % Normal 0.0-0.5 [facility] Comment on above: Performed By: #### C BC #### [facility] [address] [place] [address] Dr. Marizol Macedo LYMPH # 2.4 103/ul Normal 1.2-3.8 [facility] Comment on above: Performed By: #### C BC #### [facility] [address] [place] [address] Dr. Marizol Macedo Lymphocytes/100 WBC (Bld) 30.9 % Normal 20.5-60.0 [facility] Comment on above: Performed By: #### C BC #### [facility] [address] [place] [address] Dr. Marizol Macedo MANUAL DIFF REQ NO Normal [facility] Comment on above: Performed By: #### C BC #### [facility] [address] [address] [address] Marizol Macedo MCH (RBC) [Entitic mass] 30.7 pg Normal 26.7-34.0 [facility] Comment on above: Performed By: #### C BC #### [facility] [address] [place] [address] Dr. Marizol Macedo MCHC (RBC) [Mass/Vol] 32.5 g/dL Normal 29.9-35.2 [facility] Comment on above: Performed By: #### C BC #### [facility] [address] [place] [address] Dr. Marizol Macedo MCV (RBC) [Entitic vol] 94.3 fL Normal 81.0-99.0 [facility] Comment on above: Performed By: #### C BC #### [facility] [address] [place] [address] Dr. Marizol Macedo MONO # 0.4 103/ul Normal 0.3-0.8 [facility] Comment on above: Performed By: #### C BC #### [facility] [address] [place] [address] Dr. Marizol Macedo Monocytes/100 WBC (Bld) 5.4 % Normal 1.7-12.0 [facility] Comment on above: Performed By: #### C BC #### [facility] [address] [place] [address] Dr. Marizol Macedo NEUT # 4.9 103/ul Normal 1.4-6.5 [facility] Comment on above: Performed By: #### C BC #### [facility] [address] [place] [address] Dr. Marizol Macedo Neutrophils/100 WBC (Bld) 62.1 % Normal 43.0-75.0 [facility] Comment on above: Performed By: #### C BC #### [facility] [address] [place] [address] Dr. Marizol Macedo Platelet mean volume (Bld) [Entitic vol] 10.2 fL Normal 9.5-13.5 [facility] Comment on above: Performed By: #### C BC #### [facility] [address] [address] [address] Marizol Macedo PLT 279 103/ul Normal 150-450 [facility] Comment on above: Performed By: #### C BC #### [facility] [address] [address] [address] Marizol Macedo RBC 4.60 106/ul Normal 4.20-5.40 [facility] Comment on above: Performed By: #### C BC #### [facility] [address] [place] [address] Dr. Marizol Maecdo WBC 7.8 103/ul Normal 4.0-11.0 [facility] Comment on above: Performed By: #### C BC #### [facility] [address] [place] [address] Dr. Marizol Macedo FREE THYROXINE INDEX T7on FTI 3.50 Normal 1.30-4.50 [facility] Comment on above: Performed By: #### L IPID, T7, CMP, TSH #### [facility] [address] [place] [address] Dr. Marizol Macedo T3U 35.0 % Normal 30.0-39.0 [facility] Comment on above: Performed By: #### L IPID, T7, CMP, TSH #### [facility] [address] [place] [address] Dr. Marizol Macedo T4 [Mass/Vol] 10.00 ug/dL Normal 4.80-13.90 [facility] Comment on above: Performed By: #### L IPID, T7, CMP, TSH #### [facility] [address] [place] [address] Dr. Marizol Macedo GLYCOHEMOGLOBIN A1Con 2022 ADA RECOMMENDATION SEE BELOW Normal [facility] Comment on above: Result Comment: ADA RECOMMENDED LIMIT 4.0 - 6.0 ADA THERAPEUTIC TARGET < 7.0 ACTION SUGGESTED > 7.0 Performed By: #### A 1C #### [facility] [address] [place] [address] Dr. Marizol Macedo Glucose [Mass/Vol] 114 mg/dL Normal [facility] Comment on above: Performed By: #### A 1C #### [facility] [address] [place] [address] Dr. Marizol Macedo HbA1c (Bld) [Mass fraction] 5.6 % Normal 4.5-6.2 [facility] Comment on above: Performed By: #### A 1C #### [facility] [address] [place] [address] Dr. Marizol Macedo IRONon 04-28-2022 Iron [Mass/Vol] 136.0 ug/dL Normal 50.0-170.0 [facility] Comment on above: Performed By: #### I CECELIA #### [facility] [address] [place] [address] Dr. Marizol Macedo LIPID PROFILEon 04-28-2022 CHOL-HDL RATIO NORM SEE BELOW Normal [facility] Comment on above: Result Comment: 3.3 - 4.4 LOW RISK 4.4 - 7.1 AVERAGE RISK 7.1 - 11.0 MODERATE RISK >11.0 HIGH RISK Performed By: #### L IPID, T7, CMP, TSH #### [facility] [address] [place] [address] Dr. Marizol Macedo Cholesterol [Mass/Vol] 134 mg/dL Normal <=200 [facility] Comment on above: Performed By: #### L IPID, T7, CMP, TSH #### [facility] [address] [place] [address] Dr. Marizol Macedo Cholesterol in HDL [Mass/Vol] 69 mg/dL Critically high 40-60 [facility] Comment on above: Performed By: #### L IPID, T7, CMP, TSH #### [facility] [address] [place] [address] Dr. Marizol Macedo Cholesterol in LDL [Mass/Vol] 46.6 mg/dL Normal [facility] Comment on above: Performed By: #### L IPID, T7, CMP, TSH #### [facility] [address] [place] [address] Dr. Marizol Macedo Cholesterol.total/Ch olesterol in HDL [Mass ratio] 1.9 {ratio} Normal [facility] Comment on above: Performed By: #### L IPID, T7, CMP, TSH #### [facility] [address] [address] [address] Marizol Macedo HDL NORMAL > or = 60 mg/dl - LO W CARDIOVASCULAR RISK <40 mg/dl - HIGH CARDIOVASCULAR RISK Normal [facility] Comment on above: Performed By: #### L IPID, T7, CMP, TSH #### [facility] [address] [address] [address] Marizol Macedo LDL CALC NORMAL SEE BELOW Normal [facility] Comment on above: Result Comment: <100 mg/dl OPTIMAL 100 - 129 mg/dl NEAR OR ABOVE OPTIMAL 130 - 159 mg/dl BORDERLINE HIGH 160 - 189 mg/dl HIGH >190 mg/dl VERY HIGH Performed By: #### L IPID, T7, CMP, TSH #### [facility] [address] [address] [address] Marizol Macedo Triglyceride [Mass/Vol] 92 mg/dL Normal <=150 [facility] Comment on above: Performed By: #### L IPID, T7, CMP, TSH #### [facility] [address] [address] [address] Marizol Macedo VLDL CALC 18.4 mg/dL Normal [facility] Comment on above: Performed By: #### L IPID, T7, CMP, TSH #### [facility] [address] [address] [address] Marizol Macedo PROF 14(COMP METB)on 023 Albumin [Mass/Vol] 3.9 g/dL Normal 3.4-5.0 [facility] Comment on above: Performed By: #### L IPID, T7, CMP, TSH #### [facility] [address] [address] [address] Marizol Macedo Albumin/Globulin [Mass ratio] 1.1 {ratio} Normal [facility] Comment on above: Performed By: #### L IPID, T7, CMP, TSH #### [facility] [address] [address] [address] Marizol Macedo ALP [Catalytic activity/Vol] 97 U/L Normal 46-116 [facility] Comment on above: Performed By: #### L IPID, T7, CMP, TSH #### [facility] [address] [place] [address] Dr. Marizol Macedo ALT [Catalytic activity/Vol] 57 U/L Normal 14-59 [facility] Comment on above: Performed By: #### L IPID, T7, CMP, TSH #### [facility] [address] [place] [address] Dr. Marizol Macedo Anion gap [Moles/Vol] 11.9 mmol/L Normal [facility] Comment on above: Performed By: #### L IPID, T7, CMP, TSH #### [facility] [address] [place] [address] Dr. Marizol Macedo AST [Catalytic activity/Vol] 35 U/L Normal 15-37 [facility] Comment on above: Performed By: #### L IPID, T7, CMP, TSH #### [facility] [address] [place] [address] Dr. Marizol Macedo Bilirubin [Mass/Vol] 0.6 mg/dL Normal 0.2-1.0 [facility] Comment on above: Performed By: #### L IPID, T7, CMP, TSH #### [facility] [address] [place] [address] Dr. Marizol Macedo Calcium [Mass/Vol] 9.8 mg/dL Normal 8.5-10.1 [facility] Comment on above: Performed By: #### L IPID, T7, CMP, TSH #### [facility] [address] [address] [address] Marizol Macedo Chloride [Moles/Vol] 103 mmol/L Normal 98-107 [facility] Comment on above: Performed By: #### L IPID, T7, CMP, TSH #### [facility] [address] [place] [address] Dr. Marizol Macedo CO2 [Moles/Vol] 28.0 mmol/L Normal 21.0-32.0 [facility] Comment on above: Performed By: #### L IPID, T7, CMP, TSH #### [facility] [address] [address] [address] Marizol Macedo Creatinine [Mass/Vol] 0.75 mg/dL Normal 0.55-1.02 [facility] Comment on above: Performed By: #### L IPID, T7, CMP, TSH #### [facility] [address] [place] [address] Dr. Marizol Macedo EGFR-AF GABONESE >60 Normal >=60 [facility] Comment on above: Performed By: #### L IPID, T7, CMP, TSH #### [facility] [address] [place] [address] Dr. Marizol Macedo EGFR-NON AF GABONESE >60 Normal >=60 [facility] Comment on above: Performed By: #### L IPID, T7, CMP, TSH #### [facility] [address] [place] [address] Dr. Marizol Macedo Globulin (S) [Mass/Vol] 3.5 g/dL Normal [facility] Comment on above: Performed By: #### L IPID, T7, CMP, TSH #### [facility] [address] [place] [address] Dr. Marizol Macedo Glucose [Mass/Vol] 91 mg/dL Normal 74-106 [facility] Comment on above: Performed By: #### L IPID, T7, CMP, TSH #### [facility] [address] [place] [address] Dr. Marizol Macedo Potassium [Moles/Vol] 3.9 mmol/L Normal 3.5-5.1 [facility] Comment on above: Performed By: #### L IPID, T7, CMP, TSH #### [facility] [address] [place] [address] Dr. Marizol Macedo Protein [Mass/Vol] 7.4 g/dL Normal 6.4-8.2 [facility] Comment on above: Performed By: #### L IPID, T7, CMP, TSH #### [facility] [address] [address] [address] Marizol Macedo Sodium [Moles/Vol] 139 mmol/L Normal 136-145 [facility] Comment on above: Performed By: #### L IPID, T7, CMP, TSH #### [facility] [address] [place] [address] Dr. Marizol Macedo Urea nitrogen [Mass/Vol] 13.0 mg/dL Normal 7.0-18.0 [facility] Comment on above: Performed By: #### L IPID, T7, CMP, TSH #### [facility] [address] [place] [address] Dr. Marizol Macedo Urea nitrogen/Creatinine [Mass ratio] 17.3 mg/mg Normal [facility] Comment on above: Performed By: #### L IPID, T7, CMP, TSH #### [facility] [address] [place] [address] Dr. Marizol Macedo TSHon 04-28-2022 TSH 1.306 uIU/mL Normal 0.358-3.740 [facility] Comment on above: Performed By: #### L IPID, T7, CMP, TSH #### [facility] [address] [place] [address] Dr. Marizol Macedo CBC W/DIFFon 09-28-2017 ABS BASOPHILS 0.0 10*3/uL Normal 0.0-0.2 [facility] Comment on above: Performed By: #### 4 180, 01954 ####[facility] ABS IMM GRANS 0.0 10*3/uL Normal 0.0-0.2 [facility] Comment on above: Performed By: #### 4 180, 84681 ####[facility] ABS NEUTROPHILS 2.8 10*3/uL Normal 1.6-7.6 [facility] Comment on above: Performed By: #### 4 180, 28753 ####[facility]3000 [facility].[address] Basophils Auto #/vol (Bld) 0.5 % Normal 0.0-1.0 [facility] Comment on above: Performed By: #### 4 180, [address]230 ####[address] [address] [facility].[address] Eosinophils Auto #/vol (Bld) 0.1 10*3/uL Normal 0.0-0.5 [facility] Comment on above: Performed By: #### 4 1801, 00870 ####[address] Eosinophils/100 WBC Auto (Bld) 2.3 % Normal 0.0-6.0 [facility] Comment on above: Performed By: #### 4 1801, 34689 ####[address] Erythrocyte distribution width Auto Ratio (RBC) 12.9 % Normal 11.5-15.0 [facility] Comment on above: Performed By: #### 4 1801, 84449 ####[place] [place] [address] [facility].[address] Hematocrit Auto Volume Fraction (Bld) 42.9 % Normal 36.0-45.0 [facility] Comment on above: Performed By: #### 4 1801, 11625 ####[place] [place] [address] [facility].[address] Hemoglobin mass conc (Bld) 14.1 g/dL Normal 12.0-15.0 [facility] Comment on above: Performed By: #### 4 180, 41934 ####[address] IMMATURE GRANS 0.3 % Normal 0.0-1.0 [facility] Comment on above: Performed By: #### 4 180, 45563 ####[facility]3000 [facility].[address] Lymphocytes Auto #/vol (Bld) 2.4 10*3/uL Normal 1.2-4.0 [facility] Comment on above: Performed By: #### 4 1801, 43829 ####[facility]3000 [facility].[address] Lymphocytes/100 WBC Auto (Bld) 39.5 % Normal 20.0-45.0 [facility] Comment on above: Performed By: #### 4 1801, 99378 ####[facility]3000 [facility].[address] MCH Auto Entitic mass (RBC) 30.3 pg Normal 27.0-33.0 [facility] Comment on above: Performed By: #### 4 1801, 47931 ####[place] [address] [facility].[address] MCHC Auto mass conc (RBC) 32.9 g/dL Normal 32.0-35.0 [facility] Comment on above: Performed By: #### 4 1801, 52947 ####[facility]3000 [facility].[address] MCV Auto Entitic volume (RBC) 92.3 fL Normal 82.0-98.0 [facility] Comment on above: Performed By: #### 4 1801, 52292 ####[facility]3000 [facility].[address] Monocytes Auto #/vol (Bld) 0.7 10*3/uL Normal 0.1-1.0 [facility] Comment on above: Performed By: #### 4 1801, 18345 ####[address] MONOS 11.2 % Normal 5.0-12.0 [facility] Comment on above: Performed By: #### 4 180, 42320 ####[facility] Neutrophils/100 WBC Auto (Bld) 46.2 % Normal 40.0-72.0 [facility] Comment on above: Performed By: #### 4 180, 16234 ####[facility] Nucleated RBC/100 WBC Ratio (Bld) 0 % Normal 0-0 [facility] Comment on above: Performed By: #### 4 1801, 93183 ####[place] [address] [facility] PLAT CNT 263 10*3/uL Normal 150-400 [facility] Comment on above: Performed By: #### 4 1801, 44740 ####[facility]3000 [facility].[address] RBC Auto #/vol (Bld) 4.65 10*6/uL Normal 3.80-5.00 Th e [facility] Comment on above: Performed By: #### 4 1801, 15770 ####[facility] WBC Auto #/vol (Bld) 6.07 10*3/uL Normal 4.00-10.60 Th e [facility] Comment on above: Performed By: #### 4 1801, 51290 ####[facility] COMP METABOLIC PANELon 09-28 Albumin mass conc 4.1 g/dL Normal 3.5-5.7 The [facility] Comment on above: Performed By: #### 4 1801, 30362 ####[address] [place] [address] ALKALINE PHOSPH 73 IU/L Normal 34-104 [facility] Comment on above: Performed By: #### 4 180, 82052 ####[facility] [place] [address], [facility] ALT enzyme act/vol 54 U/L High 7-52 [facility] Comment on above: Performed By: #### 4 180, 10777 ####[facility] [place] [address], [facility] AST enzyme act/vol 40 U/L High 13-39 [facility] Comment on above: Performed By: #### 4 180, 95723 ####[facility] [place] [address], [facility] Bilirubin mass conc 0.4 mg/dL Normal 0.3-1.0 [facility] Comment on above: Performed By: #### 4 180, 27816 ####[facility] [place] [address], [facility] Calcium mass conc 9.7 mg/dL Normal 8.6-10.3 [facility] Comment on above: Performed By: #### 4 180, 38682 ####[facility] [place] [address], [place] Chloride molar conc 103 mmol/L Normal 98-107 [facility] Comment on above: Performed By: #### 4 180, 52066 ####[facility] [place] [address], [place] CO2 molar conc 28 mmol/L Normal 21-31 [facility] Comment on above: Performed By: #### 4 180, 72457 ####[facility] [place] [address], [place] Creatinine mass conc 0.81 mg/dL Normal 0.60-1.20 [facility] Comment on above: Performed By: #### 4 180, 40707 ####[facility] [place] [address], [place] GFR/1.73 sq M predicted among blacks MDRD vol rate/area (S/P/Bld) mL/min/{1.73_m2} Normal >60 [facility] Comment on above: Performed By: #### 4 180, 47785 ####[facility] [place] [address], [place] GFR/1.73 sq M predicted among non-blacks MDRD vol rate/area (S/P/Bld) mL/min/{1.73_m2} Normal >60 [facility] Comment on above: Performed By: #### 4 180, 22497 ####[facility] [place] [address], [place] Glucose mass conc 95 mg/dL Normal 70-100 [facility] Comment on above: Performed By: #### 4 180, 12393 ####[facility] [place] [address], [place] Potassium molar conc 4.4 mmol/L Normal 3.5-5.1 [facility] Comment on above: Performed By: #### 4 180, 36719 ####[facility] [place] [address], [place] Protein mass conc 7.2 g/dL Normal 6.0-8.3 [facility] Comment on above: Performed By: #### 4 180, 75173 ####[facility] [place] [address], [place] Sodium molar conc 139 mmol/L Normal 136-145 [facility] Comment on above: Performed By: #### 4 180, 98742 ####[facility] [place] [address], [place] Urea nitrogen mass conc 19 mg/dL Normal 7-25 [facility] Comment on above: Performed By: #### 4 180, 81088 ####[facility] [place] [address], [facility] Glucose Glucometer (BldC) [M ass/Vol]on 08-17-2017 Glucose [Mass/Vol] 99 mg/dL [facility] Comment on above: Random Glucose Refer ence Range is dependent on time and content of last meal. Glucose of more than 200 mg/dL in a nonstressed, ambulatory subject supports the diagnosis of Diabetes Mellitus. CBC W/DIFFon 03-31-2017 Basophils Auto #/vol (Bld) 0.3 % Normal 0.0-2.0 [facility] Comment on above: Performed By: #### 4 180, 51925 ####[facility] [place] [address], [facility] Eosinophils/100 WBC Auto (Bld) 2.1 % Normal 0.0-5.0 [facility] Comment on above: Performed By: #### 4 180, 35048 ####[facility] [place] [address], [facility] Erythrocyte distribution width Auto Ratio (RBC) 13.0 % Normal 11.5-16.9 [facility] Comment on above: Performed By: #### 4 180, 08919 ####[facility] [place] [address], [facility] Hematocrit Auto Volume Fraction (Bld) 42.6 % Normal 36.0-48.0 [facility] Comment on above: Performed By: #### 4 180, 68033 ####[facility] [place] [address], [facility] Hemoglobin mass conc (Bld) 14.3 g/dL Normal 12.0-15.0 [facility] Comment on above: Performed By: #### 4 180, 17646 ####[facility] [place] [address], [facility] Lymphocytes/100 WBC Auto (Bld) 29.7 % Normal 20.0-40.0 [facility] Comment on above: Performed By: #### 4 180, 02850 ####[facility] MCH Auto Entitic mass (RBC) 30.7 pg Normal 24.0-32.0 [facility] Comment on above: Performed By: #### 4 180, 69468 ####[facility] MCHC Auto mass conc (RBC) 33.7 g/dL Normal 32.0-36.0 [facility] Comment on above: Performed By: #### 4 180, 24096 ####[facility] MCV Auto Entitic volume (RBC) 91.2 fL Normal 80.0-100.0 [facility] Comment on above: Performed By: #### 4 180, 29991 ####[facility] METHOD Normal RBC Morphology Normal [facility] Comment on above: Performed By: #### 4 180, 55509 ####[facility] MONOS 6.4 % Normal 2-8 [facility] Comment on above: Performed By: #### 4 180, 95355 ####[facility] [place] [address], [facility] Neutrophils/100 WBC Auto (Bld) 61.5 % Normal 50-70 [facility] Comment on above: Performed By: #### 4 180, 55021 ####[facility] [place] [address], [facility] PLAT CNT 261 Thou/mm3 Normal 100-400 [facility] Comment on above: Performed By: #### 4 180, 59959 ####[facility] [place] [address], [facility] RBC Auto #/vol (Bld) 4.67 mill/mm3 Normal 3.50-5.50 T [facility] Comment on above: Performed By: #### 4 180, 23827 ####[facility] [place] [address], [facility] WBC Auto #/vol (Bld) 6.6 Thou/mm3 Normal 4.0-10.0 [facility] Comment on above: Performed By: #### 4 180, 53367 ####[facility] [place] [address], [facility] COMP METABOLIC PANELon 03-31 Albumin mass conc 4.0 g/dL Normal 3.5-5.7 [facility] Comment on above: Performed By: #### 4 180, 35088 ####[facility] [place] [address], [facility] ALKALINE PHOSPH 73 IU/L Normal 34-104 [facility] Comment on above: Performed By: #### 4 180, 19900 ####[facility] [place] [address], [facility] ALT enzyme act/vol 49 U/L Normal 7-52 [facility] Comment on above: Performed By: #### 4 180, 30357 ####[facility] [place] [address], [facility] AST enzyme act/vol 34 U/L Normal 13-39 [facility] Comment on above: Performed By: #### 4 180, 55635 ####[facility] [place] [address], [facility] Bilirubin mass conc 0.3 mg/dL Normal 0.3-1.0 [facility] Comment on above: Performed By: #### 4 180, 68127 ####[facility] [place] [address], [facility] Calcium mass conc 10.0 mg/dL Normal 8.6-10.3 [facility] Comment on above: Performed By: #### 4 180, 51331 ####[facility] [place] [address], [place] Chloride molar conc 103 mmol/L Normal 98-107 [facility] Comment on above: Performed By: #### 4 180, 86920 ####[facility] [place] [address], [place] CO2 molar conc 29 mmol/L Normal 21-31 [facility] Comment on above: Performed By: #### 4 180, 73117 ####[facility] [place] [address], [facility] Creatinine mass conc 0.86 mg/dL Normal 0.60-1.20 [facility] Comment on above: Performed By: #### 4 180, 49019 ####[facility] [place] [address], [place] GFR/1.73 sq M predicted among blacks MDRD vol rate/area (S/P/Bld) mL/min/{1.73_m2} Normal >60 [facility] Comment on above: Performed By: #### 4 180, 54699 ####[facility] [place] [address], [place] GFR/1.73 sq M predicted among non-blacks MDRD vol rate/area (S/P/Bld) mL/min/{1.73_m2} Normal >60 [facility] Comment on above: Performed By: #### 4 180, 73360 ####[facility] [place] [address], [place] Glucose mass conc 86 mg/dL Normal 70-100 [facility] Comment on above: Performed By: #### 4 1802, 99491 ####[facility] [facility] [place] [address], [facility] Potassium molar conc 4.1 mmol/L Normal 3.5-5.1 [facility] Comment on above: Performed By: #### 4 1802, 87662 ####[facility] [facility].[address] Protein mass conc 7.0 g/dL Normal 6.0-8.3 [facility] Comment on above: Performed By: #### 4 1802, 39733 ####[facility] [facility] [place] [address], [facility] Sodium molar conc 138 mmol/L Normal 136-145 [facility] Comment on above: Performed By: #### 4 1802, 70022 ####[facility] [facility] [place] [address], [facility] Urea nitrogen mass conc 14 mg/dL Normal 7-25 [facility] Comment on above: Performed By: #### 4 1802, 53475 ####[facility] [facility].[address] ANAon 02-10-2017 HELENE SCREEN <1:40 Normal <1:40,1:40 [facility] Comment on above: Performed By: #### 1 0008 ####[facility] [facility].[address] ANCA IGG WITH REFLEX [id number] on 02-10-2017 ANCA <1:20 Normal <1:20 [facility] Comment on above: Result Comment: The ANCA IFA is <1:20; therefore, no further testing willbe performed.INTERPRETIVE INFORMATION: Anti-Neutrophil Cyto Ab, IgGNeutrophil Cytoplasmic Antibodies (C-ANCA = granularcytoplasmic staining, P-ANCA = perinuclear staining) arefound in the serum of over 90 percent of patients withcertain necrotizing systemic vasculitides, and usually inless than 5 percent of patients with collagen vasculardisease or arthritis.Performed by [facility],[address] [place] [id number] plv.[employer], Onel Connelly MD - Lab. Director ANTI DNAon 02-10-2017 ANTI DNA <1:10 Normal <1:10 [facility] Comment on above: Performed By: #### 1 0008 ####[facility] [place] [address], [facility] ANTI-BETA 2 GLYCOPROTEIN 1on 02-10-2017 ANTI B2GP1 IGA 9.3 a units Normal 0.0-19.9 [facility] Comment on above: Performed By: #### 1 0008 ####[facility] [place] [address], [facility] ANTI B2GP1 IGG 1.1 g units Normal 0.0-19.9 [facility] Comment on above: Performed By: #### 1 0008 ####[facility] [place] [address], [facility] ANTI B2GP1 IGM 2.5 m units Normal 0.0-19.9 [facility] Comment on above: Performed By: #### 1 0008 ####[facility] [place] [address], [facility] ANTI-ENAon 02-10-2017 ANTI SM Negative Normal NEG,NEGATIVE,N eg [facility] Comment on above: Performed By: #### 1 0008 ####[facility] [place] [address], [place] ANTI SM/ANTIRNP Negative Normal NEG,NEGATIVE ,N eg [facility] Comment on above: Performed By: #### 1 0008 ####[facility] [place] [address], [place] ANTICARDIOLIPIN ANTIBODYon 04-12-2016 CARDIOLIPIN IGA 4.9 APL Normal 0.0-21.9 [facility] Comment on above: Performed By: #### 1 0008 ####[facility] [facility].[address] CARDIOLIPIN IGG 14.5 GPL Normal 0.0-22.9 [facility] Comment on above: Performed By: #### 1 0008 ####[facility] [facility].[address] CARDIOLIPIN IGM 9.5 MPL Normal 0.0-10.9 [facility] Comment on above: Performed By: #### 1 0008 ####[facility] CBC W/DIFFon 02-10-2017 Basophils Auto #/vol (Bld) 0.4 % Normal 0.0-2.0 [facility] Comment on above: Performed By: #### 5 3 ####[facility] Eosinophils/100 WBC Auto (Bld) 2.5 % Normal 0.0-5.0 [facility] Comment on above: Performed By: #### 5 3 ####[facility] [facility].[address] Erythrocyte distribution width Auto Ratio (RBC) 14.5 % Normal 11.5-16.9 [facility] Comment on above: Performed By: #### 5 3 ####[facility] [facility].[address] Hematocrit Auto Volume Fraction (Bld) 41.0 % Normal 36.0-48.0 [facility] Comment on above: Performed By: #### 5 3 ####[facility] Hemoglobin mass conc (Bld) 13.6 g/dL Normal 12.0-15.0 [facility] Comment on above: Performed By: #### 5 0103 ####[facility] Lymphocytes/100 WBC Auto (Bld) 26.7 % Normal 20.0-40.0 [facility] Comment on above: Performed By: #### 5 0103 ####[facility] MCH Auto Entitic mass (RBC) 30.5 pg Normal 24.0-32.0 [facility] Comment on above: Performed By: #### 5 3 ####[facility] MCHC Auto mass conc (RBC) 33.2 g/dL Normal 32.0-36.0 [facility] Comment on above: Performed By: #### 5 3 ####[facility] MCV Auto Entitic volume (RBC) 91.8 fL Normal 80.0-100.0 [facility] Comment on above: Performed By: #### 3 ####[facility] [facility] METHOD Normal RBC Morphology Normal [facility] Comment on above: Performed By: #### 5 3 ####[facility] MONOS 6.6 % Normal 2-8 [facility] Comment on above: Performed By: #### 5 3 ####[facility] [place] [address], [facility] Neutrophils/100 WBC Auto (Bld) 63.8 % Normal 50-70 [facility] Comment on above: Performed By: #### 102 ####[facility] [place] [address], [facility] PLAT CNT 310 Thou/mm3 Normal 100-400 [facility] Comment on above: Performed By: #### 102 ####[facility] [place] [address], [facility] RBC Auto #/vol (Bld) 4.47 mill/mm3 Normal 3.50-5.50 T [facility] Comment on above: Performed By: #### 102 ####[facility] [place] [address], [facility] WBC Auto #/vol (Bld) 7.6 Thou/mm3 Normal 4.0-10.0 [facility] Comment on above: Performed By: #### 102 ####[facility] [facility] COMP METABOLIC PANELon 02-10 Albumin mass conc 4.3 g/dL Normal 3.5-5.7 [facility] Comment on above: Performed By: #### 0 0121 ####[facility] [facility] ALKALINE PHOSPH 89 IU/L Normal 34-104 [facility] Comment on above: Performed By: #### 0 0121 ####[facility] [facility] ALT enzyme act/vol 35 U/L Normal 7-52 [facility] Comment on above: Performed By: #### 0 0121 ####[facility] [facility] AST enzyme act/vol 27 U/L Normal 13-39 [facility] Comment on above: Performed By: #### 0 0121 ####[facility] Bilirubin mass conc 0.4 mg/dL Normal 0.3-1.0 [facility] Comment on above: Performed By: #### 0 0121 ####[facility] [facility] [place] [address], [facility] Calcium mass conc 9.9 mg/dL Normal 8.6-10.3 [facility] Comment on above: Performed By: #### 0 0121 ####[facility] [facility] [place] [address], [facility] Chloride molar conc 102 mmol/L Normal 98-107 [facility] Comment on above: Performed By: #### 0 0121 ####[facility] [facility] [place] [address], [facility] CO2 molar conc 25 mmol/L Normal 21-31 [facility] Comment on above: Performed By: #### 0 0121 ####[facility] [facility] [place] [address], [facility] Creatinine mass conc 0.87 mg/dL Normal 0.60-1.20 [facility] Comment on above: Performed By: #### 0 0121 ####[place] [address] [facility] [place] [address], [facility] GFR/1.73 sq M predicted among blacks MDRD vol rate/area (S/P/Bld) mL/min/{1.73_m2} Normal >60 [facility] Comment on above: Performed By: #### 0 0121 ####[facility] [facility] [place] [address], [facility] GFR/1.73 sq M predicted among non-blacks MDRD vol rate/area (S/P/Bld) mL/min/{1.73_m2} Normal >60 [facility] Comment on above: Performed By: #### 0 0121 ####[facility] [facility].[address] Glucose mass conc 99 mg/dL Normal 70-100 [facility] Comment on above: Performed By: #### 0 0121 ####[facility] [place] [address], [facility] Potassium molar conc 4.1 mmol/L Normal 3.5-5.1 [facility] Comment on above: Performed By: #### 0 0121 ####[facility] Protein mass conc 7.5 g/dL Normal 6.0-8.3 [facility] Comment on above: Performed By: #### 0 0121 ####[facility] Sodium molar conc 136 mmol/L Normal 136-145 [facility] Comment on above: Performed By: #### 0 0121 ####[facility] [place] [address], [facility] Urea nitrogen mass conc 20 mg/dL Normal 7-25 [facility] Comment on above: Performed By: #### 0 0121 ####[facility] COMPLEMENT 3on 02-10-2017 COMPLEMENT 3 154 mg/dL High 79-152 [facility] Comment on above: Performed By: #### 1 0204, 67295, 88428 ####[facility] [place] [address], [facility] COMPLEMENT 4on 02-10-2017 COMPLEMENT 4 34 mg/dL Normal 16-38 [facility] Comment on above: Performed By: #### 1 0204, 09140, 14099 ####[facility] [place] [address], [facility] CREATININE URINE RANDOMon CREATININE 138.0 mg/dL Normal [facility] Comment on above: Result Comment: Ther e are no established reference values for random urine specimens Performed By: #### 4 1802, 12334 ####[facility] [place] [address], [facility] CRYOGLOBULIN ILon 02-10-2017 CRYOGLOBULIN 0 mg/dL Normal 0-10 [facility] IL Normal [facility] CYCLIC CITRULLINATED PEPTIDE AB [id number] 02-10-2017 CYCLIC CIT PEP 6 Units Normal 0-19 [facility] Comment on above: Result Comment: INTE [...] results should bemonitored and testing repeated.Performed by [facility],[address] [place] [address] [phone] bux.[employer], Onel Connelly MD - Lab. Director HEPATITIS B CORE ANTIBODYon 02-10-2017 HEP B CORE AB NONREACTIVE Normal NONREACTIVE [facility] Comment on above: Performed By: #### 3 4427, 35101, 40761, 46052 ####[facility] [place] [address], [facility] HEPATITIS B SURFACE ANTIBODY QUANTon 02-10-2017 HEP B SURF AB 0.00 mIU/ml Normal [facility] Comment on above: Result Comment: INTE RPRETATION:NONREACTIVE<8.00 mIU/mLINDETERMINATE8.00 - 12.00 mIU/mLREACTIVE>12 mIU/mL Performed By: #### 1 0008 ####[facility] [facility].[address] HEPATITIS B SURFACE ANTIGEN QUALon 02-10-2017 HEP B SURF AG QUAL NONREACTIVE Normal NONREACTIVE [facility] Comment on above: Performed By: #### 1 0008 ####[facility] [facility].[address] HEPATITIS C ANTIBODYon 02-10 ANTI-HCV NONREACTIVE Normal NONREACTIVE [facility] Comment on above: Performed By: #### 3 1397, 74436, 06556, 02451 ####[place] [address] [facility].[address] RHEUMATOID FACTOR SERUMon RA <20 Normal 0-20 [facility] Comment on above: Performed By: #### 1 0204, 66708, 27806 ####[facility] [facility].[address] SJOGRENS ANTIBODIESon 2016 SS-A Negative Normal NEG,NEGATIVE,N eg [facility] Comment on above: Performed By: #### 1 0008 ####[place] [address] [facility].[address] SS-B Negative Normal NEG,NEGATIVE,N eg [facility] Comment on above: Performed By: #### 1 0008 ####[facility] [facility] [place] [address], [facility] T PROT UR Adam 02-10-2017 Protein mass conc 29.0 mg/dL Normal [facility] Comment on above: Result Comment: Ther e are no established reference values for random urine specimens Performed By: #### 4 3732, 05166 ####[facility] [facility].[address] TB QUANTIFERONon 02-10-2017 MITOGEN MINUS NIL >=10 Normal [facility] Comment on above: Performed By: #### 4 1802, 73723 ####[facility] [facility].[address] NIL 0.03 IU/mL Normal [facility] Comment on above: Performed By: #### 4 1802, [id number] ####[facility].[address] TB AG MINUS NIL 0.01 IU/mL Normal [facility] Comment on above: Performed By: #### 4 1802, [id number] ####[facility].[address] TB ANTIGEN 0.04 IU/mL Normal [facility] Comment on above: Performed By: #### 4 1802, [id number] ####[facility].[address] TB QUANTIFERON Negative Normal NEGATIVE [facility] Comment on above: Result Comment: Boy [...] and LTBI(http://www.cdc.gov/nchstp/tb/). Performed By: #### 4 1802, [id number] ####[facility].[address] URINALYSISon 02-10-2017 APPEARANCE CLOUDY Abnormal CLEAR [facility] Comment on above: Performed By: #### 1 0008 ####[facility] [place] [address], [facility] BACTERIA MOD Abnormal NONE SEEN [facility] Comment on above: Performed By: #### 1 0008 ####[facility] [place] [address], [facility] BILIRUBIN Negative Normal NEGATIVE [facility] Comment on above: Performed By: #### 1 0008 ####[facility] [place] [address], [facility] BLOOD Negative Normal NEGATIVE [facility] Comment on above: Performed By: #### 1 0008 ####[facility] [place] [address], [facility] COLOR YELLOW Normal YELLOW [facility] Comment on above: Performed By: #### 1 0008 ####[facility] [place] [address], [facility] EPIS MANY Abnormal FEW [facility] Comment on above: Performed By: #### 1 0008 ####[facility] [place] [address], [facility] GLUCOSE Negative Normal NEGATIVE [facility] Comment on above: Performed By: #### 1 0008 ####[facility] [place] [address], [facility] INR Coag RelTime (Bld) 0-2 Abnormal 0-0 [facility] Comment on above: Performed By: #### 1 0008 ####[facility] [place] [address], [facility] KETONE Negative Normal NEGATIVE [facility] Comment on above: Performed By: #### 1 0008 ####[facility] LEUK DIMPLE LARGE Abnormal NEGATIVE [facility] Comment on above: Performed By: #### 1 0008 ####[facility].[address] MUCUS THREADS OCC Abnormal NONE SEEN [facility] Comment on above: Performed By: #### 1 0008 ####[facility].[address] NITRITE Negative Normal NEGATIVE [facility] Comment on above: Performed By: #### 1 0008 ####[facility].[address] PH 5.0 Normal 5.0-8.0 [facility] Comment on above: Performed By: #### 1 0008 ####[facility].[address] Protein mass conc Negative Normal NEGATIVE [facility] Comment on above: Performed By: #### 1 0008 ####[facility].[address] SPEC GRAV 1.020 Normal 1.015-1.020 [facility] Comment on above: Performed By: #### 1 0008 ####[facility].[address] WBC UA >100 Abnormal 0-0 [facility] Comment on above: Performed By: #### 1 0008 ####[facility].[address] CYTOLOGY SPECIMENon 02-02-20 CYTOLOGY SPEC Normal [facility] Comment on above: Order Comment: Comme nt: A. PERIESOPHAGEAL LESION FNA - CYTOLYT, 10 SLIDES Result Comment: Note : Specimens received on or after December:* Pathology and Cytology reports are located in [facility] in the folder labeled Medical Record Forms.* Reports are also in the Physician Portal.* Reports will be faxed to phycician's office.* For assistance locating reports call: * Willard Guadarrama [phone] * LAB [phone] Performed By: #### L UHCYTO ####[place] [address] [place] [address] Albumin [Mass/volume] in Ser um or Plasmaon 01-03-2017 Albumin [Mass/Vol] 3.3 g/dL 3.2-5.5 [facility] Basophils Auto (Bld) [#/Vol] on 01-03-2017 Basophils (Bld) [#/Vol] 0.0 10*3/uL 0.0-0.2 [facility] Basophils/100 WBC Auto (Bld) on 01-03-2017 Basophils/100 WBC (Bld) 0.6 % . [facility] Creatinine and Glomerular fi ltration rate.predicted panel (S/P/Bld)on 01-03-2017 Creatinine [Mass/Vol] 1.00 mg/dL 0.44-1.03 [facility] Eosinophils Auto (Bld) [#/Vo l]on 01-03-2017 Eosinophils (Bld) [#/Vol] 0.1 10*3/uL 0.0-0.45 [facility] Eosinophils/100 WBC Auto (Bl d)on 01-03-2017 Eosinophils/100 WBC (Bld) 1.5 % . [facility] Erythrocyte distribution wid th Auto (RBC) [Ratio]on 01-03-2017 Erythrocyte distribution width (RBC) [Ratio] 14.5 % 11.9-15.3 [facility] Estimated glomerular filtrat ion rate (GFR) non- Americanon 01-03-2017 GFR/1.73 sq M.predicted among non-blacks MDRD (S/P/Bld) [Vol rate/Area] 56 mL/min/{1.73_m2} [facility] Globulin Calc (S) [Mass/Vol] on 01-03-2017 Globulin (S) [Mass/Vol] 3.6 g/dL [facility] Hematocrit Auto (Bld) [Volum e fraction]on 01-03-2017 Hematocrit (Bld) [Volume fraction] 36.3 % 34.0-46.4 [facility] Hemoglobin [Mass/volume] in Bloodon 01-03-2017 Hemoglobin (Bld) [Mass/Vol] 12.1 g/dL 11.8-15.4 [facility] Laboratory - Chemistry and C hemistry - challengeon 01-03-2017 GFR/1.73 sq M.predicted among blacks MDRD (S/P/Bld) [Vol rate/Area] mL/min/{1.73_m2} [facility] Comment on above: GFR estimated refere nce range: According to KDOQI guidelines, <60 ml/min/1.73m2 is sufficient to diagnose a patient with chronic kidney disease. Lymphocytes Auto (Bld) [#/Vo l]on 01-03-2017 Lymphocytes (Bld) [#/Vol] 2.1 10*3/uL 1.00-4.8 [facility] Lymphocytes/100 WBC Auto (Bl d)on 01-03-2017 Lymphocytes/100 WBC (Bld) 27.4 % . [facility] MCH Auto (RBC) [Entitic mass ]on 01-03-2017 MCH (RBC) [Entitic mass] 30.8 pg 24.7-34.3 [facility] MCHC Auto (RBC) [Mass/Vol]on 01-03-2017 MCHC (RBC) [Mass/Vol] 33.4 g/dL 32.0-35.0 [facility] MCV Auto (RBC) [Entitic vol] on 01-03-2017 MCV (RBC) [Entitic vol] 92.4 fL 80-100 [facility] Monocytes Auto (Bld) [#/Vol] on 01-03-2017 Monocytes (Bld) [#/Vol] 1.0 10*3/uL High 0.0-0.8 [facility] Monocytes/100 WBC Auto (Bld) on 01-03-2017 Monocytes/100 WBC (Bld) 12.7 % . [facility] Neutrophils Auto (Bld) [#/Vo l]on 01-03-2017 Neutrophils (Bld) [#/Vol] 4.4 10*3/uL 1.8-7.7 [facility] Neutrophils/100 WBC Auto (Bl d)on 01-03-2017 Neutrophils/100 WBC (Bld) 57.8 % . [facility] No Panel Informationon 01-03 Pharmacy Creatinine Clearance (Chem N/A [facility] Platelet mean volume Auto (B ld) [Entitic vol]on 01-03-2017 Platelet mean volume (Bld) [Entitic vol] 8.2 fL 6.3-10.7 [facility] Platelets Auto (Bld) [#/Vol] on 01-03-2017 Platelets (Bld) [#/Vol] 429 10*3/uL 150-450 [facility] Protein [Mass/volume] in Ser um or Plasmaon 01-03-2017 Protein [Mass/Vol] 6.9 g/dL 6.1-7.9 [facility] RBC Auto (Bld) [#/Vol]on RBC (Bld) [#/Vol] 3.93 10*6/uL 3.60-5.00 [facility] Serum or plasma alanine briggs otransferase measurement without P-5'-P (enzymatic activion 01-03-2017 ALT No additional P-5'-P [Catalytic activity/Vol] 37 U/L 10-60 [facility] Serum or plasma albumin/glob ulin mass ratioon 01-03-2017 Albumin/Globulin [Mass ratio] 0.9 {ratio} [facility] Serum or plasma alkaline bita sphatase measurement (enzymatic activity/volume)on 01-03-2017 ALP [Catalytic activity/Vol] 89 U/L 32-92 [facility] Serum or plasma aspartate am inotransferase measurement (enzymatic activity/volume)on 01-03-2017 AST [Catalytic activity/Vol] 30 U/L 10-42 [facility] Serum or plasma calcium katheryn urement (mass/volume)on 01-03-2017 Calcium [Mass/Vol] 9.4 mg/dL 8.2-10.2 [facility] Serum or plasma chloride claudia surement (moles/volume)on 01-03-2017 Chloride [Moles/Vol] 98 mmol/L 95-114 [facility] Serum or plasma glucose katheryn urement (mass/volume)on 01-03-2017 Glucose [Mass/Vol] 107 mg/dL High 70-100 [facility] Comment on above: ADA recommended refe rence rangeRandom Glucose Reference Range is dependent on time and content of last meal. Glucose of more than 200 mg/dL in a nonstressed, ambulatory subject supports the diagnosis of Diabetes Mellitus. Serum or plasma potassium me asurement (moles/volume)on 01-03-2017 Potassium [Moles/Vol] 4.1 mmol/L 3.5-5.1 [facility] Serum or plasma sodium measu rement (moles/volume)on 01-03-2017 Sodium [Moles/Vol] 139 mmol/L 136-146 [facility] Serum or plasma total biliru bin measurement (mass/volume)on 01-03-2017 Bilirubin [Mass/Vol] 0.3 mg/dL 0.3-1.2 [facility] Serum or plasma total carbon dioxide measurement (moles/volume)on 01-03-2017 CO2 [Moles/Vol] 29.5 mmol/L 22.0-30.0 [facility] Serum or plasma urea nitroge n measurement (mass/volume)on 01-03-2017 Urea nitrogen [Mass/Vol] 12 mg/dL 9-23 [facility] WBC Auto (Bld) [#/Vol]on WBC (Bld) [#/Vol] 7.6 10*3/uL 3.8-11.6 [facility] No Panel Information [facility] Vital Signs Date Time Vital Sign Value Performing Clinician Faci lity 01-30-2024 10:17040 Body height 167.64 cm MD Christian Steiner Work Phone: [facility] 01-30-2024 10:17-0400 Body mass index (BMI) [Ratio] 26.3 kg/m2 MD Christian Steiner Work Phone: [facility] 01-30-2024 10:17-040 Body temperature 97.3 [degF] MD Christian Steiner Work Phone: [facility] 01-30-2024 10:17-040 Body weight 73.93 kg MD Christian Steiner Work Phone: [facility] 01-30-2024 10:17-0400 Heart rate 86 /min MD Christian Steiner Work Phone: [facility] 01-30-2024 10:17-0400 Respiratory rate 16 /min MD Christian Steiner Work Phone: [facility] 01-30-2024 10:17-0400 SaO2% (BldA) [Mass fraction] 96 % MD Christian Steiner Work Phone: [facility] 07-14-2023 11:29-0400 Body height 157.5 cm Lynsey Saldana MD Work Phone: [facility] 07-14-2023 11:29-0400 Body mass index (BMI) [Ratio] 30 kg/m2 Lynsey Saldana MD Work Phone: [facility] 07-14-2023 11:29-0400 Body weight 74.39 kg Lynsey Saldana MD Work Phone: [facility] 07-14-2023 11:29-0400 Diastolic blood pressure 84 mm[Hg] Lynsey Saldana MD Work Phone: [facility] 07-14-2023 11:29-0400 Heart rate 79 /min Lynsey Saldana MD Work Phone: [facility] 07-14-2023 11:29-0400 Systolic blood pressure 134 mm[Hg] Lynsey Saldana MD Work Phone: [facility] 01-21-2023 09:58-0400 Body temperature 97.2 [degF] MD Christian Steiner Work Phone: [facility] 01-21-2023 09:58-0400 Body weight 76.65 kg MD Christian Steiner Work Phone: [facility] 01-21-2023 09:58-0400 Diastolic blood pressure 78 mm[Hg] MD Christian Steiner Work Phone: [facility] 01-21-2023 09:58-0400 Heart rate 71 /min MD Christian Steiner Work Phone: [facility] 01-21-2023 09:58-0400 Respiratory rate 16 /min MD Christian Steiner Work Phone: [facility] 01-21-2023 09:58-0400 SaO2% (BldA) [Mass fraction] 98 % MD Christian Steiner Work Phone: [facility] 01-21-2023 09:58-0400 Systolic blood pressure 141 mm[Hg] MD Christian Steiner Work Phone: [facility] 01-21-2022 10:03-0400 Body height 167.64 cm MD Christian Steiner [facility] 01-21-2022 10:03-0400 [facility] 10:03-0400 Diastolic blood pressure 78 mm[Hg] MD Christian Steiner [facility] 01-21-2022 10:03-0400 Heart rate 98 /min MD Christian Steiner [facility] 01-21-2022 10:03-0400 Respiratory rate 18 /min MD Christian Steiner [facility] 01-21-2022 10:03-0400 SaO2% (BldA) [Mass fraction] 98 % MD Christian Steiner [facility] 01-21-2022 10:03-0400 Systolic blood pressure 122 mm[Hg] MD Christian Steiner [facility] 01-21-2021 10:29-0400 Body temperature 98 [degF] MD Christian Steiner [facility] Encounters Encounter Date Encounter Type Care Provider Facility Start: 05-14-2024 End: 05-14-2024 ambulatory Lizzie Torre MD Facility:[facility] Start: 04-18-2024 End: 04-18-2024 ambulatory CK GONZALEZ Facility:[facility] Start: 04-18-2024 End: 04-18-2024 Patient encounter [...] Registered Recurring MD Tigre Steiner [facility] Work Phone: Start: 01-30-2024 End: 01-30-2024 ambulatory MD Christian Steiner Work Phone: [facility] Work Phone: Start: 01-30-2024 End: 01-30-2024 Patient encounter procedure MD [facility] Start: [...] Start: 10-17-2023 End: 10-17-2023 ambulatory ALESHA SCHULTE Facility:[facility] Start: 10-17-2023 End: 10-17-2023 Patient encounter procedure Alesha Schulte MD Work Phone: Ophthalmology Comment on above: Primary open-angle g laucoma, bilateral, mild stage (Primary Dx) Start: 09-05-2023 End: 09-05-2023 ambulatory ALESHA SCHULTE Facility:[facility] Start: 09-05-2023 End: 09-05-2023 Patient encounter procedure Alesha Schulte MD Work Phone: Ophthalmology Comment on above: Primary open-angle g laucoma, bilateral, mild stage (Primary Dx) Start: 08-24-2023 End: 08-24-2023 ambulatory SARAHI PIERSON Not Available Start: 07-27-2023 End: 07-27-2023 ambulatory ALESHA SCHULTE Facility:[facility] Start: 07-27-2023 End: 07-27-2023 Patient encounter procedure Alesha Schulte MD Work Phone: Ophthalmology Comment on above: Primary open-angle g laucoma, bilateral, mild stage (Primary Dx) Start: 07-14-2023 End: 07-14-2023 [facility] Start: 07-14-2023 End: 07-14-2023 Office outpatient visit 15 minutes Lynsey Saldana MD Work Phone: [facility] Comment on above: Lymphedema (Primary Dx) Start: 05-18-2023 Chart abstracting Jr. Todd Boudreaux DO Work Phone: [facility] Start: 05-18-2023 End: 05-18-2023 ambulatory TODD ANDREW Not Available Start: 01-21-2023 End: 01-21-2023 ambulatory MD Christian Steiner Work Phone: [facility] Work Phone: Start: 01-21-2023 End: 01-21-2023 Registered Recurring MD Christian Steiner Work Phone: [facility] Work Phone: Start: 01-17-2023 End: 01-17-2023 [...] 01-21-2022 End: 01-21-2022 ambulatory MD Christian Steiner [facility] Work Phone: Start: 01-21-2022 End: 01-21-2022 Registered Recurring MD Christian Steiner [facility] Start: 01-03-2022 End: 02-01-2022 ambulatory [...] 09-28-2017 End: 09-29-2017 Patient encounter EMELY DOMENICO Facility:[facility] Start: 08-18-2017 Patient encounter procedure Christian Steiner Facility:[id number] Start: 03-31-2017 End: 04-01-2017 Patient encounter EMELY DOMENICO Facility:[facility] Start: 02-10-2017 End: 02-11-2017 Patient encounter EMELY DOMENICO Facility:[facility] Start: 01-28-2017 Ambulatory Pal Deshawn Facility:[facility] Procedures Date Procedure Procedure Detail Performing Clinician [...] Office Visit [facility] [address] [place] [address] Jr. Todd Boudreaux, DO [address] [place] [address] [facility] Start: 01-22-2025 Screening for malign ant neoplasm of breast Mammogram Screening [facility] Start: 10-22-2024 End: 10-22-2024 Patient encounter procedure 10/22/2024 10:45 AM EDT Office Visit [facility] [address] [place] [address] Alesha Schulte MD [address] [place] [address] RTC: 6 Months Full OCT ON/GCA + HVF 24-2 [facility] Comment on above: RTC: [address] ON/GCA + HVF 24-2 [facility] Start: 07-13-2024 Adult BMI Screening Adult BMI Screen ing [facility] Start: 07-13-2024 Tobacco Screening Tobacco Screening [facility] Start: 07-12-2024 End: 07-12-2024 Patient encounter procedure 07/12/2024 8:30 AM EDT Office Visit [facility] [address] [place] [address] Lynsey Saldana MD [address], [facility] [address] [place] [address] [facility] Start: 04-18-2024 End: 04-18-2024 Patient encounter procedure 04/18/2024 10:30 AM EST Office Visit [facility] [address] [place] [address] Ck Gonzalez, OD [address] [place] [address] Return in about 6 months (around 04/18/2024) for VATA with TH. Ophthalmology Comment on above: Return in about 6 mo nths (around 04/18/2024) for VATA with TH. Start: 04-09-2024 End: 04-09-2024 Patient encounter procedure 04/09/2024 2:30 PM EST Office Visit [facility] [address] [place] [address] Dino George, PA [address] [place] [address] Acute pain of right shoulder (Primary Dx) [facility] Comment on above: Acute pain of right shoulder (Primary Dx) Start: 04-04-2024 Advance Directive Discussion Advance Directive Discussion [facility] Start: 01-21-2024 Screening for malign ant neoplasm of breast Mammogram Screening [facility] Start: 01-16-2024 End: 01-16-2024 Patient encounter procedure 01/16/2024 10:15 AM EDT Office Visit [facility] [address] [place] [address] Dino George, PA [address] [facility] [address] [place] [address] [facility] Start: 12-19-2023 End: 12-19-2023 Patient encounter procedure 12/19/2023 10:15 AM EDT Office Visit [facility] [address] [place] [address] Dino George PA [address] [facility] [address] [place] [address] Acute pain of right knee (Primary Dx); History of total knee replacement, right [facility] Comment on above: Acute pain of right knee (Primary Dx); History of total knee replacement, right Start: 12-04-2023 Covid-19 Vaccine ( season) Covid-19 Vaccine ( season) [facility] Start: 12-04-2023 Influenza vaccination [facility] Start: 10-17-2023 End: 10-17-2023 Patient encounter procedure 10/17/2023 1:15 PM EDT Office Visit [facility] [address] [place] [address] Alesha Schulte MD [address] [address] Return for VATA. Ophthalmology Comment on above: Return for VATA. Start: 09-05-2023 End: 06-03-2024 Patient encounter procedure 09/05/2023 9:45 AM EDT Office Visit [facility] [address] [place] [address] Alesha Schulte MD [address] [place] [address] Return for slt od on a amonday next available Ophthalmology Comment on above: Return for slt od on a amonday next available Start: 05-18-2023 End: 05-18-2023 Patient encounter procedure 05/18/2023 10:15 AM EST Office Visit [facility] [address] [place] [address] Jr. Todd Boudreaux, DO [address] [address] [facility] Start: 04-04-2023 Advance Directive Discussion Advance Directive Discussion [facility] Start: 04-04-2023 Behavioral Health Screening Behavioral Health Screening [facility] Start: 02-12-2023 Diabetes Screening Diabetes Screenin g [facility] Start: 12-03-2022 Covid-19 Vaccine ( season) Covid-19 Vaccine ( season) [facility] Start: 12-03-2022 Influenza vaccination C [facility] Start: 04-04-2022 ADVANCE DIRECTIVE DISCUSSION ADVANCE DIRECTIVE DISCUSSION [facility] Start: 04-04-2022 [facility] Start: 12-03-2021 Influenza vaccination INFLUENZA (#1) [facility] Start: 04-04-2021 ADVANCE DIRECTIVE DISCUSSION ADVANCE DIRECTIVE DISCUSSION [facility] Start: 04-04-2021 DEPRESSION ASSESSMENT [facility] Start: 2017 BONE DENSITY BONE DENSITY [facility] Start: 2017 Bone Density Screening Bone Density Screening [facility] Start: 2017 Fall Risk Screening Fall Risk Screen [facility] Start: 2017 PNEUMOCOCCAL: 65+ (1 - PCV) PNEUMOCOCCAL: 65+ (1 - PCV) [facility] Start: 2017 Screening for osteoporosis Bone Density Screening [facility] Start: 11-13-2014 Administration of varicella zoster vaccine Zoster (Shingles) Vaccine (2 of 3) [facility] Start: 11-13-2014 SHINGRIX VACCINE (2 of 3) SHINGRIX VACCINE (2 of 3) [facility] Start: 2012 RSV Vaccine (1 - 1-d ose 60+ series) RSV Vaccine (1 - 1-dose 60+ series) [facility] Start: 2012 RSV Vaccine (1 - Ris k 60-74 years 1-dose series) RSV Vaccine (1 - Risk 60-74 years 1-dose series) [facility] Start: 2002 SHINGRIX VACCINE (1 of 2) SHINGRIX VACCINE (1 of 2) [facility] Start: 1997 COLOGUARD (FIT-DNA) COLOGUARD (FIT-D NA) [facility] Start: 1997 Colonoscopy COLONOSCOPY [facility] Start: 1997 COLORECTAL CANCER SCREENING COLORECTAL CANCER SCREENING [facility] Start: [address] COLONOGRAPHY [facility] Start: 1997 DIABETES SCREEN DIABETES SCREEN [facility] Start: 1997 Diabetes Screening Diabetes Screenin g [facility] Start: 1997 FECAL OCCULT BLOOD FECAL OCCULT BLOO D [facility] Start: 1997 Lipid 1996 panel - S amalia or Plasma Lipid Screening [facility] Start: 1997 Lipid panel Lipid Screening [facility] Start: 1997 LIPID SCREEN LIPID SCREEN [facility] Start: 1997 Screening for malign ant neoplasm of colon [facility] Start: 1997 SIGMOIDOSCOPY SIGMOIDOSCOPY [facility] Start: 1992 Mammography [facility] Start: 1982 Zoledronic acid therapy ALPHA- 1 ANTITRYPSIN DEFICIENCY SCREENING [facility] Start: 1971 DTaP,Tdap and Td Vaccines (1 - Tdap) DTaP,Tdap and Td Vaccines (1 - Tdap) [facility] Start: 1971 Urine microalbumin profile [facility] Start: 1970 Adult BMI Follow Up Plan Adult BMI Follow Up Plan [facility] Start: 1970 ANNUAL PCP TEAM DEPUTY OF COUNTER INTELLIGENCE LYLE DISEASE VISIT ANNUAL PCP TEAM CHRONIC DISEASE VISIT [facility] Start: 1970 Anxiety Screening Anxiety Screening [facility] Start: 1970 Depression Screening Depression Scre ening [facility] Start: 1970 HEPATITIS C [facility]CRE[facility]ING [facility]IS [facility] [facility] C [facility] Start: 1970 SPIROMETRY SPIROMETRY [facility] Start: 1964 Depression Screening Depression Scre ening [facility] Start: 1950 COVID-19 VACCINE (#1) COVID-19 VACCI NE (#1) [facility] Start: 1950 Medicare Annual Well ness Visit Medicare Annual Wellness Visit [facility] MG Breast - left Screening [facility] MG Breast - left Screening [facility] MG Breast - left Screening [facility] XR Hip - right 3 Views XR hip ri ght 2 or 3 views Imaging Routine Acute right hip pain 12/19/2023 10:12 AM EDT [facility] Work Phone: [facility] [place] [facility] Immunizations Immunization Date Immunization Notes Care Provider Fa cili 01-05-2020 influenza (HD-IIV4) vaccine, age 65+ yr, high dose, quadrivalent, PF (FLUZONE HIGH-DOSE) Alesha Schulte MD Work Phone: [facility] 01-05-2020 influenza virus vacc ine, unspecified formulation Alesha Schulte MD Work Phone: [facility] 01-25-2018 pneumococcal polysaccharide vaccine, 23 valent Alesha Schulte MD Work Phone: [facility] 10-20-2017 pneumococcal conjuga te vaccine, 13 valent Alesha Schulte MD Work Phone: [facility] 09-17-2015 pneumococcal polysaccharide vaccine, 23 valent Alesha Schulte MD Work Phone: [facility] 06-09-2015 influenza, injectabl e, quadrivalent, preservative free Alesha Schulte MD Work Phone: [facility] 09-18-2014 zoster vaccine, live Raji Schulte MD Work Phone: [facility] 09-18-2014 zoster vaccine, unspecified formulation Lyn[facility] Saldana [facility] 01-30-2009 novel influenza-H1N1 -09, preservative-free, injectable Alesha Schulte MD Work Phone: [facility] Payers Date Payer Category Payer Private Health Insurance [employer] [id number] 2018 Unknown [id number] 2017 Medicare [id number]. [id number] 2016 Self-pay [id number] 1959 Medicare [id number] 1959 Unknown [id number] 1952 Unknown [id number] 2.16.840.1.471764.3.579.2. 356 1952 Unknown [id number] 2.16.840.1.323983.3.579.2. 356 1952 Unknown [id number] 2.16.840.1.664258.3.579.2. 356 1952 Unknown [id number] 2.16.840.1.323422.3.579.2. 593 1952 Unknown [id number] 2.16.840.1.256293.3.579.2. 593 1952 Unknown [id number] 2.16.840.1.603586.3.579.2. 593 1952 Unknown [id number] 2.16.840.1.625695.3.579.2. 593 1952 Unknown [id number] 2.16.840.1.292456.3.579.2. 593 1952 Unknown [id number] 2.16.840.1.933066.3.579.2. 593 1952 Unknown [id number] 2.16.840.1.544961.3.579.2. 593 1952 Unknown [id number] 2.16.840.1.532129.3.579.2. 593 1952 Unknown [id number] 2.16.840.1.600967.3.579.2. 593 1952 Unknown [id number] 2.16.840.1.435685.3.579.2. 593 1952 Unknown [id number] 2.16.840.1.270390.3.579.2. 593 1952 Unknown [id number] 2.16.840.1.011353.3.579.2. 593 1952 Unknown [id number] 2.16.840.1.855153.3.579.2. 593 1952 Unknown [id number] 2.16.840.1.135097.3.579.2. 593 1952 Unknown [id number] 2.16.840.1.802480.3.579.2. 1286 1952 Unknown [id number] 2.16.840.1.981518.3.579.2. 1259 1952 Unknown [id number] 2.16.840.1.798539.3.579.2. 1259 1952 Unknown [id number] 2.16.840.1.574224.3.579.2. 9 1952 Unknown [id number] 2.16.840.1.845074.3.579.2. 9 1952 Unknown [id number] 2.16.840.1.579864.3.579.2. 9 1952 Unknown [id number] 2.16.840.1.732835.3.579.2. 9 1952 Unknown [id number] 2.16.840.1.885963.3.579.2. 196 Unknown [id number] Unknown [id number] 2.16.840.1.778271.3.579.2. 531 Social History Date Type Detail Facility Start: 01-21-2021 End: 03-25-2022 Tobacco smoking status ARIS Never smoked tobacco (finding) [facility] Start: 1950 Sex Assigned At Female [facility] Start: 02-27-2019 End: 03-25-2022 Tobacco use and exposure Smokeless tobacco non-user [facility] Start: 09-18-2019 End: 04-18-2024 Alcohol intake Current drinker of alcohol (finding) [facility] Start: 09-18-2019 History SDOH Alcohol Frequency 2 [facility] Start: 09-18-2019 History SDOH Alcohol Std Drinks 1 [facility] Start: 02-27-2019 Alcohol Comment a glass of wine once every 2-3 months [facility] Start: 1950 Sex Assigned At Not on file [facility] Start: 02-27-2019 End: 05-15-2020 History of Social function [facility] Start: 02-27-2019 End: 05-15-2020 Alcohol Use Disorder Identification Test - Consumption [AUDIT-C] [facility] Frequency of Alcohol Consumption Monthly or less [facility] Start: 09-25-2022 End: 04-09-2024 Alcohol intake Lifetime non-drinker (finding) [facility] Start: 09-25-2022 Alcohol Comment caffeine intake: 2-3 cups per day [facility] Start: 09-14-2022 Gender identity Identifies as female gender (finding) [facility] Start: 09-14-2022 Sexual orientation Heterosexual (finding) [facility] Start: 07-14-2023 Alcoholic beverage intake Ex-drinker (finding) [facility] Start: 01-17-2020 Alcohol Comment very rare [facility] Medical Equipment Procedure Code Equipment Code Equipment Origin al Text Equipment Identifier Dates Lens Acrysof Iq Toric 6mm +24.5 Diopter +6 Cylinder 0 D Biconvex Acrylic 13 - [id number] Start: 03-14-2019 Comment on above: Description: -0.57 Lens Acrysof Iq Toric Stableforce 6mm 0 D +22.5 Diopter +2.25 Cylinder - [id number] Start: 03-21-2019 Comment on above: Description: -0.80 Istent Inject - [id number] Start: 03-14-2019 Istent Inject - [id number] Start: 03-21-2019 Cmnt Bn Bio 40gm Rpl [id number] - Sna - [id number] Start: 02-12-2020 Ins Artc 3-5 E-F 11mm Kn Rt Ps - Sna - [id number]/ SNA, [id number] FDA Start: 02-12-2020 Cmpt Fem 5 Kn Rt Persona Strl - Sna - [id number] Start: 02-12-2020 Cmpt Ptlr 32mm Persona Alply - Sna - [id number] Start: 02-12-2020 Bsplt Tib 5d E K n Rt Stm - Sna - [id number] Start: 02-12-2020 Clinical Notes 01-04-2017 to 04-18-2024 Ck oGnzalez, OD - 04/18/2024 11:06 AM BETO Grissom - 04/09/2024 2:30 PM BETO Grissom - 12/19/2023 10:15 AM Alesha Benítez MD - 10/17/2023 1:32 PM EDT Note Date & Type Note Facility 04-18-2024 Note HNO ID: [id number] Author: CK GONZALEZ, OD Service: ? Author Type: SHAPER MACHINE HAND Type: Progress Notes Filed: 04/18/2024 11:22 Note [...] Gonzalez, OD April 18, 2024 11:21 AM [facility] 04-18-2024 History of Present illness Narrative [...] 2024 11:21 AM documented in this encounter [facility] 04-09-2024 History of Present illness Narrative [...] Use: Not At Risk (02/27/2019) Received from [facility], [facility] AUDIT-C Frequency of Alcohol Consumption: Monthly [...] requiring urgent evaluation. documented in this encounter [facility] 12-19-2023 History of Present illness Narrative [...] Use: Not At Risk (02/27/2019) Received from [facility], [facility] AUDIT-C Frequency of Alcohol Consumption: Monthly [...] requiring urgent evaluation. documented in this encounter [facility] 10-17-2023 Note HNO ID: [id number] Author: ALESHA SCHULTE MD Service: ? Author [...] components. Alesha Schulte MD October 17, 2023 [facility] 10-17-2023 History of Present illness Narrative [...] October 17, 2023 documented in this encounter [facility] 09-05-2023 Note Date of Procedure 09/05/2023 [place] Protocol Safety Checklist Sign In: A moment [...] Post-procedure follow up management communicated. No specimens. [facility] 09-05-2023 Note HNO ID: [id number] Author: ALESHA SCHULTE MD Service: ? Author [...] components. Alesha Schulte MD September 05, 2023 [facility] 09-05-2023 History of Present illness Narrative [...] September 05, 2023 documented in this encounter [facility] 07-27-2023 Note Date of Procedure 07/27/2023. Account Supervisor Information Supervisor Solder Making: pd. Reliability Right Eye Good. Left Eye Good. Interpretation Right Eye Normal. Left Eye Normal. [facility] 07-27-2023 Note Date of Procedure 07/27/2023. Account Supervisor Information Supervisor Solder Making: ELIZABETH. Quality Right Eye Good. Left Eye Good. NFL Interpretation Right Eye Superior loss. Left Eye Normal. [facility] 07-27-2023 Note HNO ID: [id number] Author: ALESHA SCHULTE MD Service: ? Author [...] agree with all of its relevant components. [facility] 07-27-2023 History of Present illness Narrative [...] its relevant components. documented in this encounter [facility] 07-14-2023 Evaluation + Plan note Associated Problem(s): Lymphedema Compression therapy leg elevation and follow up in the clinic in 1 year. [facility] 07-14-2023 Miscellaneous Notes Associated Problem(s): Lymphedema Compression therapy leg elevation and follow up in the clinic in 1 year. documented in this encounter [facility] 07-14-2023 History of Present illness Narrative Images from the original note were not included. To: KENYETTA REYNOLDS MD HPI: Myla oPllack is a 73 y.o. female with Known [...] 1 tablet by mouth in the morning. bnxoflcjqo-nsuggitzprure-oaps (FIORICET, ESGIC) 50-325-40 mg per tablet Take [...] the evening. 5 mg M-W-F, 7.5 mg Mis-Sgym-Gwxkv-Sat . anastrozole (ARIMIDEX) 1 mg chemo tablet [...] hematuria Asthma COPD (chronic obstructive pulmonary disease) ([facility]) Headache Hyperlipidemia Osteoarthritis right knee Pulmonary embolism ([facility]) Thrush top partial Vasculitis ([facility]) Visual impairment readers Past Surgical History: [...] Performed by Todd Boudreaux Jr., DO at [facility] Social and Family History: Social History [...] for your understanding. documented in this encounter [facility] 01-17-2023 History of Present illness Narrative Tmax: [...] its relevant components. documented in this encounter [facility] 07-05-2022 History of Present illness Narrative [...] its relevant components. documented in this encounter [facility] 03-19-2022 Note PROCEDURE: XR WRIST RT MIN 3 V HISTORY: Unspecified fall ; acute right wrist pain after falling COMPARISON: None. FINDINGS: BONES:No fracture, acute abnormality, or significant arthropathy. SOFT TISSUES:No visible soft tissue swelling. EFFUSION:None visible. OTHER: Negative. IMPRESSION: 1. No acute bone abnormality. 2. Multifocal mild degenerative changes. Electronically authenticated by: ADIEL MCCONNELL Date: 2022-03-19 10:26 [facility] 03-11-2022 Miscellaneous Notes *SECOND ATTEMT* Called patient and LVM for her to call back and schedule an appt with for glaucoma suspect. Referral from Dr. Sebastian. Called patient and LVM to schedule an appointment with Dr. Schulte for GLC suspect. documented in this encounter [facility] 01-21-2022 Progress note Note Date/Time January 21, 2022 10:15[facility] [place] [id number] Hem/Onc Follow Up Note - OP Signed Patient: Myla Pollack MR#: [id number] : 1950 Acct:[id number] Age/Sex: 71 / F Type: REG RCR [...] of anastrozole, we will now follow annually ([facility] but patient wishes to return to oncology). We will arrange her annual follow-ups after her annual mammograms in January of each year. She also requested refill of breast prosthesis and mastectomy bra. No breast exam due to telephone visit. No skin changes or breast tenderness. No recent f/u by network management specialist in [place]--was reported to have vasculitis 4 years ago--now resolved but still has some mild erythema and swelling of left greater than right leg without pain. Receives Anastrozole due to weak TN expression--no significant myalgias/arthralgias or hot flashes. No [...] pT1c, N0, M0. Tumor was ER negative, TN weak, and HER-2 nonamplified. She underwent right mastectomy at [facility] in 02/2015. Completed dose dense AC X4 [...] years of adjuvant therapy. 3. Evaluated by network management specialist in [place] (does not believe she had vasculitis)--no recent [...] inflammatory. She was referred to pulmonary at [facility]. Ground glass opacities resolved on PET/CT 08/2017. [...] of Therapies: 1. Right breast mastectomy at [facility] (Dr. Rodriguez) in 02/2015. 2. Completed [...] nodes positive, pT1c, N0, M0. ER negative, TN weak, and HER-2 nonamplified. (1) Breast cancer, right Qualifiers: Estrogen receptor status: negative Patient sex: female 1. 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 ER negative, TN weak, and HER-2 nonamplified. 2. She underwent mastectomy at [facility] in 02/2015. Completed dose dense AC X4 and Taxol X 12 in August 2015. 3. 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 Anastrozole was resumed in 03/2017 4. Saw network management specialist in [place] for persistent leg pain and swelling (he [...] inflammatory. She was referred to pulmonary at [facility]. --Followup PET/CT 08/2017 showed resolution of prior [...] for coordination of care (as documented) and bywh-qq-tejx counseling of patient and/or family. Dictated By: Claire Duran APRN DD/ 1014 Signed By: <Electronically signed by CHIDI Duran> 01/21/22 [address] [facility] Work Phone: 1(616) 657-905810-20-2021 Progress note Author Kacie Garay [facility] January 21, 2021 8:25pm Note Date/Time January 21, 2021 1 0:34am [facility] [place] [address] Hem/Onc Follow Up Note - OP Signed Patient: Myla Pollack MR#: [id number] : 1950 Acct:[id number] Age/Sex: 70 / F Type: REG RCR [...] of anastrozole, we will now follow annually [facility] patient wishes to return to oncology). We will arrange her annual follow-ups after her annual mammograms in January of each year. She also requested refill of breast prosthesis and mastectomy bra. No breast exam due to telephone visit. No skin changes or breast tenderness. No recent f/u by network management specialist in [place]--was reported to have vasculitis 4 years ago--now resolved but still has some mild erythema and swelling of left greater than right leg without pain. Receives Anastrozole due to weak TN expression--no significant myalgias/arthralgias or hot flashes. No [...] pT1c, N0, M0. Tumor was ER negative, TN weak, and HER-2 nonamplified. She underwent right mastectomy at [facility] in 02/2015. Completed dose dense AC X4 [...] years of adjuvant therapy. 3. Evaluated by network management specialist in [place] (does not believe she had vasculitis)--no recent [...] inflammatory. She was referred to pulmonary at [facility]. Ground glass opacities resolved on PET/CT 08/2017. [...] of Therapies: 1. Underwent right mastectomy at [facility] in 02/2015. 2. Completed dose dense AC [...] nodes positive, pT1c, N0, M0. ER negative, TN weak, and HER-2 nonamplified. (1) Breast cancer, right Qualifiers: Estrogen receptor status: negative Patient sex: female 1. 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 ER negative, TN weak, and HER-2 nonamplified. 2. She underwent mastectomy at [facility] in 02/2015. Completed dose dense AC X4 and Taxol X 12 in August 2015. 3. 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 Anastrozole was resumed in 03/2017 4. Saw network management specialist in [place] for persistent leg pain and swelling (he [...] inflammatory. She was referred to pulmonary at [facility]. --Followup PET/CT 08/2017 showed resolution of prior [...] for coordination of care (as documented) and qiwg-cn-elbo counseling of patient and/or family. Dictated By: Kacie Garay MD DD/ 1034 Signed By: <Electronically signed by MD Kacie Garay> 01/21/212024 [facility] Work Phone: 1(784) 264-199004-19-2021 Progress note Author Kacie Garay [facility] July 21, 2020 11:38am Note Date/Time July 21, 2020 9:3 9am [facility] [place] [address] Hem/Onc Follow Up Note - OP Signed Patient: Myla Pollack MR#: [id number] : 1950 Acct:[id number] Age/Sex: 70 / F Type: REG RCR Copies to: Kenyetta Reynolds MD~ Subjective Date/Time of Service: Date of Service: 07/21/2020 Time of Service: 09:36 Chief Complaint: Patient has consented to doxy visit for 4 month follow up visitfor breast cancer and to review bone densitometry test. HPI: Patient had video visit ([email or web address]) today for 4-month follow-up and review of [...] or breast tenderness. No recent f/u by network management specialist in [place]--was reported to have vasculitis 4 years ago--now resolved but still has some mild erythema and swelling of left greater than right leg without pain. Receives Anastrozole due to weak TN expression--no significant myalgias/arthralgias or hot flashes. No [...] pT1c, N0, M0. Tumor was ER negative, TN weak, and HER-2 nonamplified. She underwent right mastectomy at [facility] in 02/2015. Completed dose dense AC X4 [...] years of adjuvant therapy. 3. Evaluated by network management specialist in [place] (does not believe she had vasculitis)--no recent [...] inflammatory. She was referred to pulmonary at [facility]. Ground glass opacities resolved on PET/CT 08/2017. [...] of Therapies: 1. Underwent right mastectomy at [facility] in 02/2015. 2. Completed dose dense AC [...] nodes positive, pT1c, N0, M0. ER negative, TN weak, and HER-2 nonamplified. (1) Breast cancer, right Qualifiers: Estrogen receptor status: negative Patient sex: female 1. 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 ER negative, TN weak, and HER-2 nonamplified. 2. She underwent mastectomy at [facility] in 02/2015. Completed dose dense AC X4 and Taxol X 12 in August 2015. 3. 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 Anastrozole was resumed in 03/2017 4. Saw network management specialist in [place] for persistent leg pain and swelling (he [...] inflammatory. She was referred to pulmonary at [facility]. --Followup PET/CT 08/2017 showed resolution of prior [...] for coordination of care (as documented) and wite-ym-jhau counseling of patient and/or family. Dictated By: Kacie Garay MD DD/ 5 Signed By: <Electronically signed by MD Kacie Garay> 07/21/20 [address] [facility] Work Phone: 1([phone]) 750-234212-09-2020 Progress note Author Kacie Garay [facility] March 12, 2020 2:49pm Note Date/Time March 12, 2020 9 :56am [facility] [place] [address] Hem/Onc Follow Up Note - OP Signed Patient: Myla Pollack MR#: [id number] : 1950 Acct:[id number] Age/Sex: 69 / F Type: REG RCR [...] or breast tenderness. No recent f/u by network management specialist in [place]--was reported to have vasculitis 4 years ago--now resolved but still has some mild erythema and swelling of left greater than right leg without pain. Receives Anastrozole due to weak TN expression--no significant myalgias/arthralgias or hot flashes. No [...] pT1c, N0, M0. Tumor was ER negative, TN weak, and HER-2 nonamplified. She underwent right mastectomy at [facility] in 02/2015. Completed dose dense AC X4 [...] of extended adjuvant therapy. 3. Evaluated by network management specialist in [place] (does not believe she had vasculitis)--no recent [...] inflammatory. She was referred to pulmonary at [facility]. Ground glass opacities resolved on PET/CT 08/2017. [...] of Therapies: 1. Underwent right mastectomy at [facility] in 02/2015. 2. Completed dose dense AC [...] lymph nodes positive, pT1c, N0,M0. ER negative, TN weak, and HER-2 nonamplified. 2. She underwent mastectomy at [facility] in 02/2015. Completed dose dense AC X4 and Taxol X 12 in August 2015. 3. 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 Anastrozole was resumed in 03/2017 4. Saw network management specialist in [place] for persistent leg pain and swelling (he [...] inflammatory. She was referred to pulmonary at [facility]. --Followup PET/CT 08/2017 showed resolution of prior [...] for coordination of care (as documented) and eyqq-vh-hsnn counseling of patient and/or family. Dictated By: Kacie Garay MD DD/ Signed By: <Electronically signed by MD Kacie Garay> 03/12/20 [address] [facility] Work Phone: [phone]) [phone] Progress note Author Kacie Garay [facility] September 05, 2019 1:07pm Note Date/Time September 05, 2019 10:57 am [facility] [place] [address] Hem/Onc Follow Up Note - OP Signed Patient: Myla Pollack MR#: [id number] : 1950 Acct:[id number] Age/Sex: 69 / F Type: REG RCR [...] or breast tenderness. No recent f/u by network management specialist in [place]--was reported to have vasculitis 3 years ago--now resolved but still has some mild erythema and swelling of left greater than right leg without pain. Receives Anastrozole due to weak TN expression--no significant myalgias/arthralgias or hot flashes. No [...] pT1c, N0, M0. Tumor was ER negative, TN weak, and HER-2 nonamplified. She underwent right mastectomy at [facility] in 02/2015. Completed dose dense AC X4 and Taxol X 12 in August 2015. 2. Anastrozole with calcium and vitamin D started in August 2015. Calcium and vitamin D discontinued 07/2016 Anastrozole stopped in 01/2017 when she developed vasculitis (erythematous rash over legs) although no proven association at this time. Anastrozole was resumed in 03/2017 3. Evaluated by network management specialist in [place] (does not believe she had vasculitis)--no recent [...] inflammatory. She was referred to pulmonary at [facility]. Ground glass opacities resolved on PET/CT 08/2017. [...] of Therapies: 1. Underwent right mastectomy at [facility] in 02/2015. 2. Completed dose dense AC [...] nodes positive, pT1c, N0, M0. ER negative, TN weak, and HER-2 nonamplified. 2. She underwent mastectomy at [facility] in 02/2015. Completed dose dense AC X4 and Taxol X 12 in August 2015. 3. 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 Anastrozole was resumed in 03/2017 4. Saw network management specialist in [place] for persistent leg pain and swelling (he [...] inflammatory. She was referred to pulmonary at [facility]. --Followup PET/CT 08/2017 showed resolution of prior [...] vasculitis but per second opinion from a network management specialist and plant technician in [place] this is not vasculitis. They told her [...] for coordination of care (as documented) and bzhp-xz-ucvw counseling of patient and/or family. Dictated By: Kacie Garay MD DD/ 1053 Signed By: <Electronically signed by MD Kacie Garay> 09/05/19 8704 [facility] Work Phone: [phone] 556-393811-21-2019 History of Past illness Narrative* Problem Noted Date Resolved Date Combined forms of age-related cataract of both e yes 02/22/2019 03/21/2019 documented as of this encounter (statuses as of 03/11/2022) [facility]11-21-2019 History of Past illness Narrative* Problem Noted Date Resolved Date Combined forms of age-related cataract of both e yes 02/22/2019 03/21/2019 documented as of this encounter (statuses as of 07/05/2022) [facility]11-21-2019 History of Past illness Narrative* Problem Noted Date Diagnosed Date Resolved Date Combined forms of age-relate d cataract of both eyes 02/22/2019 03/21/2019 documented as of this encounter (statuses as of 01/17/2023) [facility]10-21-2019 Progress note Author Kacie Garay [facility] January 22, 2019 9:28pm Note Date/Time January 22, 2019 1 0:40[facility] [place] [id number] Hem/Onc Follow Up Note - OP Signed Patient: Myla Pollack MR#: [id number] : 1950 Acct:[id number] Age/Sex: 68 / F Type: REG RCR [...] or breast tenderness. No recent f/u by network management specialist [facility]--was reported to have vasculitis 2 1/2 years ago--now resolved. Receives Anastrozole due to weak TN expression--no significant myalgias/arthralgias or hot flashes. No bowel or bladder complaints. No interval changes in medical history. We reviewed DEXA scan showing normal bone density 07/17/2018. DIAGNOSIS: 1. 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 Tumor was ER negative, TN weak, and HER-2 nonamplified. She underwent right mastectomy at [place] in 02/2015. Completed dose dense AC X4 and Taxol X 12 in August 2015. 2. Anastrozole with calcium and vitamin D started in August 2015. Calcium and vitamin D discontinued 07/2016 Anastrozole stopped in 01/2017 when she developed vasculitis (erythematous rash over legs) although no proven association at this time. Anastrozole was resumed in 03/2017 3. Evaluated by network management specialist in [place] (does not believe she had vasculitis)--no recent [...] inflammatory. She was referred to pulmonary at [place]. Ground glass opacities resolved on PET/CT 08/2017. [...] of Therapies: 1. Underwent right mastectomy at [place] in 02/2015. 2. Completed dose dense AC [...] nodes positive, pT1c, N0, M0. ER negative, TN weak, and HER-2 nonamplified. 2. She underwent mastectomy at [place] in 02/2015. Completed dose dense AC X4 and Taxol X 12 in August 2015. 3. 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 Anastrozole was resumed in 03/2017 4. Saw network management specialist in [place] for persistent leg pain and swelling (he [...] inflammatory. She was referred to pulmonary at [place]. --Followup PET/CT 08/2017 showed resolution of prior [...] vasculitis but per second opinion from a network management specialist and plant technician in [place] this is not vasculitis. They told her [...] for coordination of care (as documented) and fpbe-gj-yqou counseling of patient and/or family. Dictated By: Kacie Garay MD DD/ 1039 Signed By: <Electronically signed by MD Kacie Garay> 01/22/19 [address] [facility] Work Phone: [phone] Progress note Author Kacie Garay [facility] July 19, 2018 8:36pm Note Date/Time July 19, 2018 10: 48am [facility] at [address] [address] Hem/Onc Follow Up Note - OP Signed Patient: Myla Pollack MR#: [id number] : 1950 Acct:[id number] Age/Sex: 68 / F Type: REG RCR [...] pT1c, N0, M0. Tumor was ER negative, TN weak, and HER-2 nonamplified. She underwent right mastectomy at [place] in 02/2015. Completed dose dense AC X4 and Taxol X 12 in August 2015. 2. Anastrazole with calcium and vitamin D started in August 2015, Calcium and vitamin D discontinued 07/2016 Anastrozole stopped in 01/2017 when she developed vasculitis (erythematous rash over legs) although no proven association at this time. Anastrozole was resumed in 03/2017 3. Evaluated by network management specialist in [place] (does not believe she had vasculitis)--no recent [...] inflammatory. She was referred to pulmonary at [place]. Ground glass opacities resolved on PET/CT 08/2017. [...] or breast tenderness. [place]was reported to have vasculitis 2 years ago--now resolved. Receives Anastrozole due to weak TN expression--no significant myalgias/arthralgias or hot flashes. No bowel or bladder complaints. No interval changes in medical history. We reviewed DEXA scan showing normal bone density 07/17/2018. - Summary of Therapies Summary of Therapies: 1. Underwent right mastectomy at [facility] in 02/2015. 2. Completed dose dense AC [...] scan 07/17/2018 reviewed--normal. Annual bilateral mammography at [facility] 01/2018--ordered 6 month f/u mammogram prior to next f/u. Assessment and Plan (1) Breast cancer, right Qualifiers: Estrogen receptor status: negative Patient sex: female 1. 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 ER negative, TN weak, and HER-2 nonamplified. 2. She underwent mastectomy at [place] in 02/2015. Completed dose dense AC X4 and Taxol X 12 in August 2015. 3. Anastrazole with calcium and vitamin D started in August 2015, Calcium and vitamin D discontinued 07/2016 Anastrozole stopped in 01/2017 when she developed vasculitis although there is no proven association at this time. Anastrozole was resumed in 03/2017 4. Seeing network management specialist in [place] for persistent leg pain and swelling (he [...] inflammatory. She was referred to pulmonary at [place]. --Followup PET/CT 08/2017 showed resolution of prior [...] unless new symptoms arise. Annual mammogram at [facility] prior to next followup. DEXA normal--f/u in [...] vasculitis but per second opinion from a network management specialist and plant technician in [place] this is not vasculitis. They told her [...] for coordination of care (as documented) and hiaf-in-pzfl counseling of patient and/or family. Dictated By: Kacie Garay MD DD/ 1048 Signed By: <Electronically signed by MD Kacie Garay> 07/19/181 [facility] Work Phone: [phone] Progress note Author Kacie Garay [facility] January 18, 2018 8:17pm Note Date/Time January 17, 2018 3 :44pm [facility] [place] [address] Hem/Onc Follow Up Note - OP Signed Patient: Myla Pollack MR#: [id number] : 1950 Acct:[id number] Age/Sex: 67 / F Type: REG RCR [...] pT1c, N0, M0. Tumor was ER negative, TN weak, and HER-2 nonamplified. She underwent right mastectomy at [place] in 02/2015. Completed dose dense AC X4 and Taxol X 12 in August 2015. 2. Anastrazole with calcium and vitamin D started in August 2015, Calcium and vitamin D discontinued 07/2016 Anastrazole stopped in 01/2017 when she developed vasculitis although thereis no proven association at this time. Anastrozole was resumed in 03/2017 3. Now follows with rhematologist in [place] (does not believe she had vasculitis). 4. [...] inflammatory. She was referred to pulmonary at [place]. Ground glass opacities resolved on PET/CT 08/2017. 5. A focus of increased uptake in the liver of uncertain significance was also identified. On MRI of the liver there was no abnormality found. HPI: Patient returns to the clinic for transfer of care from Dr. Steiner. No changes on self breast exam. No skin changes or breast tenderness. She is seeing a network management specialist in [place]--was reported to have vasculitis of legs about a yearago. Receives Anastrozole due to weak TN expression--no significant myalgias/arthralgias or hot flashes. No bowel or bladder complaints. - Summary of Therapies Summary of Therapies: 1. Underwent right mastectomy at [place] in 02/2015. 2. Completed dose dense AC [...] % (Auto) 27.4 % (.) 01/03/17 17:45 Faulk % (Auto) 12.7 % (.) 01/03/17 17:45 Eos % (Auto) 1.5 % (.) 01/03/17 17:45 Baso % (Auto) 0.6 % (.) 01/03/17 17:45 Neut # (Auto) 4.4 x10E3/uL (1.8-7.7) 01/03/17 17:45 Lymph # (Auto) 2.1 x10E3/uL (1.00-4.8) 01/03/17 17:45 Faulk # (Auto) 1.0 x10E3/uL (0.0-0.8) H 01/03/17 [...] where applicable. 01/11/2018--left diagnostic mammogram reviewed from [facility] Left breast stable with scattered benign appearing calcifications and benign appearing lymph nodes. BIRADS 2--Benign findings. Assessment and Plan (1) Breast cancer, right Qualifiers: Estrogen receptor status: negative Patient sex: female Status: Chronic 1. 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 ER negative, TN weak, and HER-2 nonamplified. 2. She underwent mastectomy at [place] in 02/2015. Completed dose dense AC X4 and Taxol X 12 in August 2015. 3. Anastrazole with calcium and vitamin D started in August 2015, Calcium and vitamin D discontinued 07/2016 Anastrazole stopped in 01/2017 when she developed vasculitis although there is no proven association at this time. Anastrozole was resumed in 03/2017 4. Seeing network management specialist in [place] for persistent leg pain and swelling (he [...] inflammatory. She was referred to pulmonary at [place]. Followup PET/CT 08/2017 showed resolution of prior [...] vasculitis but per second opinion from a network management specialist and plant technician in [place] this is not vasculitis. They told her [...] for coordination of care (as documented) and abaz-fj-ynjj counseling of patient and/or family. 25 - 35 minutes Dictated By: Kacie Garay MD DD/ 1543 Signed By: <Electronically signed by Kacie Garay MD> 01/18/182016 [facility] Work Phone: [phone] Progress note Author Mohsen Steiner [facility] August 18, 2017 3:25pm Note Date/Time August 18, 2017 3:23p m [facility] [place] [address] Hem/Onc Follow Up Note - OP Signed Patient: Myla Pollack MR#: [id number] : 1950 Acct:[id number] Age/Sex: 67 / F Type: REG RCR [...] % (Auto) 27.4 % (.) 01/03/17 17:45 Faulk % (Auto) 12.7 % (.) 01/03/17 17:45 Eos % (Auto) 1.5 % (.) 01/03/17 17:45 Baso % (Auto) 0.6 % (.) 01/03/17 17:45 Neut # (Auto) 4.4 x10E3/uL (1.8-7.7) 01/03/17 17:45 Lymph # (Auto) 2.1 x10E3/uL (1.00-4.8) 01/03/17 17:45 Faulk # (Auto) 1.0 x10E3/uL (0.0-0.8) H 01/03/17 [...] N0, M0. 2. Tumor was ER negative, TN weak, and HER-2 nonamplified. 3. She underwent mastectomy at [place] in 02/2015. Completed dose dense AC X4 [...] inflammatory. She was referred to pulmonary at [place] 8. A focus of increased uptake in [...] vasculitis but per second opinion from a network management specialist and plant technician in [place] this is not vasculitis. They told her [...] for coordination of care (as documented) and binw-ll-ztrz counseling of patient and/or family. Dictated By: Mohsen Steiner MD DD/ 1517 Signed By: <Electronically signed by Mohsen Steiner MD> 08/18/17 1523 [facility] Work Phone: [phone] Progress note Author Mohsen Steiner [facility] July 21, 2017 3:44pm Note Date/Time July 21, 2017 3:4 0pm [facility] [place] [address] Hem/Onc Follow Up Note - OP Signed Patient: Myla Pollack MR#: [id number] : 1950 Acct:[id number] Age/Sex: 67 / F Type: REG RCR Copies to: Pinky Og DO~ Subjective Date/Time of Service: Date of Service: 07/21/2017 Time of Service: 15:39 Chief Complaint: Patient here for four month follow up appointment with labs. HPI: Patient returns to the clinic for a pre-scheduled follow-up visit that reports that 1. She saw a plant technician and network management specialist in [place]. They do not think that she has [...] % (Auto) 27.4 % (.) 01/03/17 17:45 Faulk % (Auto) 12.7 % (.) 01/03/17 17:45 Eos % (Auto) 1.5 % (.) 01/03/17 17:45 Baso % (Auto) 0.6 % (.) 01/03/17 17:45 Neut # (Auto) 4.4 x10E3/uL (1.8-7.7) 01/03/17 17:45 Lymph # (Auto) 2.1 x10E3/uL (1.00-4.8) 01/03/17 17:45 Faulk # (Auto) 1.0 x10E3/uL (0.0-0.8) H 01/03/17 [...] N0, M0. 2. Tumor was ER negative, TN weak, and HER-2 nonamplified. 3. She underwent mastectomy at [place] in 02/2015. Completed dose dense AC X4 [...] inflammatory. She was referred to pulmonary at [place] 8. A focus of increased uptake in [...] vasculitis but per second opinion from a network management specialist and plant technician in [place] this is not vasculitis. They told her [...] for coordination of care (as documented) and uusi-rc-jsfw counseling of patient and/or family. Dictated By: Mohsen Steiner MD DD/ 1539 Signed By: <Electronically signed by Mohsen Steiner MD> 07/21/17 15[address] [facility] Work Phone: [phone] Progress note Author Mohsen Steiner [facility] March 25, 2017 11:28am Note Date/Time March 25, 2017 11:27am [facility] at [address] [address] Hem/Onc Follow Up Note - OP Signed Patient: Myla Pollack MR#: [id number] : 1950 Acct:[id number] Age/Sex: 66 / F Type: REG RCR Copies to: Pinky Og DO~ Subjective Date/Time of Service: Date of Service: 03/25/2017 Time of Service: 11:25 Chief Complaint: Patient is here to review MRI report and to follow up after seeing the director loss prevention. HPI: Patient returns to the clinic for a pre-scheduled follow-up visit that reports that 1. She was seen at [facility] rheumatology, and from there she was referred to a plant technician in [place]. No final diagnosis has yet been made. 2. She had an MRI of the liver 3. She was seen by pulmonary in [facility] Details: All systems reviewed & no [...] % (Auto) 27.4 % (.) 01/03/17 17:45 Faulk % (Auto) 12.7 % (.) 01/03/17 17:45 Eos % (Auto) 1.5 % (.) 01/03/17 17:45 Baso % (Auto) 0.6 % (.) 01/03/17 17:45 Neut # (Auto) 4.4 x10E3/uL (1.8-7.7) 01/03/17 17:45 Lymph # (Auto) 2.1 x10E3/uL (1.00-4.8) 01/03/17 17:45 Faulk # (Auto) 1.0 x10E3/uL (0.0-0.8) H 01/03/17 [...] N0, M0. 2. Tumor was ER negative, TN weak, and HER-2 nonamplified. 3. She underwent mastectomy at [place] in 02/2015. Completed dose dense AC X4 [...] pulmonary (by her preference to a new director loss prevention at [facility]) 8. A focus of increased uptake in the liver of quasi-significance was also identified. On MRI of the liver there was no abnormality found (2) Pulmonary embolism Status: Chronic She is currently on warfarin (3) Vasculitis Status: Acute She is being seen by rheumatology at [facility]. (4) Lung nodules Status: Resolved [...] for coordination of care (as documented) and cwrd-lq-nsed counseling of patient and/or family. Dictated By: Mohsen Steiner MD DD/ 1125 Signed By: <Electronically signed by Mohsen Steiner MD> 03/25/17 1128 [facility] Work Phone: [phone] Progress note Author Mohsen Steiner [facility] March 16, 2017 3:11pm Note Date/Time March 16, 2017 2:57pm [facility] [place] [address] Hem/Onc Follow Up Note - OP Signed Patient: Myla Pollack MR#: [id number] : 1950 Acct:[id number] Age/Sex: 66 / F Type: REG RCR Copies to: Pinky Og DO~ Subjective Date/Time of Service: Date of Service: 03/16/2017 Time of Service: 14:55 Chief Complaint: Patient is here for review of [employer] reports. HPI: Patient returns to the clinic for a pre-scheduled follow-up visit that reports that 1. She was seen at [facility] rheumatology, and from there she was referred to a plant technician in [place]. No final diagnosis has yet been made [...] % (Auto) 27.4 % (.) 01/03/17 17:45 Faulk % (Auto) 12.7 % (.) 01/03/17 17:45 Eos % (Auto) 1.5 % (.) 01/03/17 17:45 Baso % (Auto) 0.6 % (.) 01/03/17 17:45 Neut # (Auto) 4.4 x10E3/uL (1.8-7.7) 01/03/17 17:45 Lymph # (Auto) 2.1 x10E3/uL (1.00-4.8) 01/03/17 17:45 Faulk # (Auto) 1.0 x10E3/uL (0.0-0.8) H 01/03/17 [...] N0, M0. 2. Tumor was ER negative, TN weak, and HER-2 nonamplified. 3. She underwent mastectomy at [place] in 02/2015. Completed dose dense AC X4 [...] pulmonary (by her preference to a new director loss prevention at [facility]) 8. A focus of increased uptake in the liver of quasi-significance was also identified. MRI of the liver has been requested (2) Pulmonary embolism Status: Chronic She is currently on warfarin (3) Vasculitis Status: Acute She was seen by rheumatology at [facility]. (4) Lung nodules Status: Acute [...] for coordination of care (as documented) and uykh-he-smhw counseling of patient and/or family. Dictated By: Mohsen Steiner MD DD/ [id number] Signed By: <Electronically signed by Mohsen Steiner MD> 03/16/17 3880 [facility] Work Phone: [phone] Progress note Author Mohsen Steiner [facility] February 28, 2017 2:51pm Note Date/Time February 28, 2017 2:29pm [facility] at [address] [address] Hem/Onc Follow Up Note - OP Signed Patient: Myla Pollack MR#: [id number] : 1950 Acct:[id number] Age/Sex: 66 / F Type: REG RCR Copies to: Pinky Og DO~ Subjective Date/Time of Service: Date of Service: 02/28/2017 Time of Service: 14:26 Chief Complaint: Patient here to follow up after rheumatology referral. HPI: Patient returns to the clinic for a pre-scheduled follow-up visit that reports that 1. She was seen at [facility] rheumatology ROS Details: All systems [...] % (Auto) 27.4 % (.) 01/03/17 17:45 Faulk % (Auto) 12.7 % (.) 01/03/17 17:45 Eos % (Auto) 1.5 % (.) 01/03/17 17:45 Baso % (Auto) 0.6 % (.) 01/03/17 17:45 Neut # (Auto) 4.4 x10E3/uL (1.8-7.7) 01/03/17 17:45 Lymph # (Auto) 2.1 x10E3/uL (1.00-4.8) 01/03/17 17:45 Faulk # (Auto) 1.0 x10E3/uL (0.0-0.8) H 01/03/17 [...] N0, M0. 2. Tumor was ER negative, TN weak, and HER-2 nonamplified. 3. She underwent mastectomy at [place] in 02/2015. Completed dose dense AC X4 [...] Acute She was seen by rheumatology at [facility]. The ordered some initial workup [...] for coordination of care (as documented) and pohk-ve-llgn counseling of patient and/or family. Dictated By: Mohsen Steiner MD DD/ 1426 Signed By: <Electronically signed by Mohsen Steiner MD> 02/28/17 9557 [facility] Work Phone: [phone] Progress note Author Mohsen Steiner [facility] February 03, 2017 9:03am Note Date/Time February 03, 2017 9 :01am [facility] [place] [address] Hem/Onc Follow Up Note - OP Signed Patient: Myla Pollack MR#: [id number] : 1950 Acct:[id number] Age/Sex: 66 / F Type: REG RCR Copies to: Pinky Og DO~ Subjective Date/Time of Service: Date of Service: 02/03/2017 Time of Service: 08:58 Chief Complaint: Patient here to follow up after EGD and EUS. HPI: Patient returns to the clinic for a pre-scheduled follow-up visit that reports that 1. She had an EUS at [facility] by Dr. Tara Hess and no significant [...] % (Auto) 27.4 % (.) 01/03/17 17:45 Faulk % (Auto) 12.7 % (.) 01/03/17 17:45 Eos % (Auto) 1.5 % (.) 01/03/17 17:45 Baso % (Auto) 0.6 % (.) 01/03/17 17:45 Neut # (Auto) 4.4 x10E3/uL (1.8-7.7) 01/03/17 17:45 Lymph # (Auto) 2.1 x10E3/uL (1.00-4.8) 01/03/17 17:45 Faulk # (Auto) 1.0 x10E3/uL (0.0-0.8) H 01/03/17 [...] N0, M0. 2. Tumor was ER negative, TN weak, and HER-2 nonamplified. 3. She underwent mastectomy at [place] in 02/2015. Completed dose dense AC X4 [...] Status: Acute She was referred to the [facility] but her appointment is in April which [...] for coordination of care (as documented) and ltbz-om-njxx counseling of patient and/or family. Dictated By: Mohsen Steiner MD DD/ 0858 Signed By: <Electronically signed by Mohsen Steiner MD> 02/03/17 [address] [facility] Work Phone: [phone] Progress note Author Mohsen Steiner [facility] January 12, 2017 10:59pm Note Date/Time January 12, 2017 1 0:57pm [facility] at [address] [address] Hem/Onc Follow Up Note - OP Signed Patient: Myla Pollack MR#: [id number] : 1950 Acct:[id number] Age/Sex: 66 / F Type: REG RCR Copies to: Pinky Og DO~ Subjective Date/Time of Service: Date of Service: 01/12/2017 Time of Service: 22:52 Chief Complaint: Patient is here to follow up PET scan results. HPI: Patient returns to the clinic for a pre-scheduled follow-up visit that reports that 1. She was diagnosed with vasculitis at [facility] 2. She was found to have [...] % (Auto) 27.4 % (.) 01/03/17 17:45 Faulk % (Auto) 12.7 % (.) 01/03/17 17:45 Eos % (Auto) 1.5 % (.) 01/03/17 17:45 Baso % (Auto) 0.6 % (.) 01/03/17 17:45 Neut # (Auto) 4.4 x10E3/uL (1.8-7.7) 01/03/17 17:45 Lymph # (Auto) 2.1 x10E3/uL (1.00-4.8) 01/03/17 17:45 Faulk # (Auto) 1.0 x10E3/uL (0.0-0.8) H 01/03/17 [...] N0, M0. 2. Tumor was ER negative, TN weak, and HER-2 nonamplified. 3. She underwent mastectomy at [place] in 02/2015. Completed dose dense AC X4 [...] We will be referring her to the [facility] for evaluation and management. (4) Lung nodules [...] for coordination of care (as documented) and wmsq-rb-xxbq counseling of patient and/or family. Dictated By: Mohsen Steiner MD DD/ 51 Signed By: <Electronically signed by Mohsen Steiner MD> 01/12/17 [address] [facility] Work Phone: 1([phone] 212-979710-04-2017 Progress note Author Mohsen Steiner [facility] January 05, 2017 4:45pm Note Date/Time January 05, 2017 4: 38pm [facility] at [address] [address] Hem/Onc Follow Up Note - OP Signed Patient: Myla Pollack MR#: [id number] : 1950 Acct:[id number] Age/Sex: 66 / F Type: REG RCR cc: Pinky Og DO~ Subjective Date/Time of Service: Date of Service: 01/05/2017 Time of Service: 16:37 Chief Complaint: Patient is here for follow up to CT scan patient has been having ongoing vascular problems. HPI: Patient returns to the clinic for a pre-scheduled follow-up visit that reports that 1. She was diagnosed with vasculitis at [facility] 2. She was found to have [...] % (Auto) 27.4 % (.) 01/03/17 17:45 Faulk % (Auto) 12.7 % (.) 01/03/17 17:45 Eos % (Auto) 1.5 % (.) 01/03/17 17:45 Baso % (Auto) 0.6 % (.) 01/03/17 17:45 Neut # (Auto) 4.4 x10E3/uL (1.8-7.7) 01/03/17 17:45 Lymph # (Auto) 2.1 x10E3/uL (1.00-4.8) 01/03/17 17:45 Faulk # (Auto) 1.0 x10E3/uL (0.0-0.8) H 01/03/17 [...] N0, M0. 2. Tumor was ER negative, TN weak, and HER-2 nonamplified. 3. She underwent mastectomy at [place] in 02/2015. Completed dose dense AC X4 [...] that in November, she was admitted at [facility] and was diagnosed with vasculitis affecting [...] for coordination of care (as documented) and cukx-cf-flnd counseling of patient and/or family. Dictated By: Mohsen Steiner MD DD/ 1637 Signed By: <Electronically signed by Mohsen Steiner MD> 01/05/17 1645 [facility] Work Phone: [phone] 336-117910-03-2017 Progress note Author [facility] January 04, 2017 11:22am Note Date/Time January 04, 2017 11 :22am [facility] [place] [address] Hem/Onc Follow Up Note - OP Signed Patient: Myla Pollack MR#: [id number] : 1950 Acct:[id number] Age/Sex: 66 / F Type: REG RCR [...] Prescription was E-prescribed to her pharmacy at [facility]. 15 mg twice daily, for 3 weeks, [...] for coordination of care (as documented) and [id number] counseling of patient and/or family. Dictated By: Jefferson Rice MD DD/ [id number] Signed By: <Electronically signed by Jefferson Rice MD> 01/04/17 1122 [facility] Work Phone: Evaluation note* Diagnosis Onset Date Resolution Status Breast cancer, right chronic Encounter for monitoring anastrozole therapy chronic Osteoarthritis of knees, bilateral chronic Pulmonary embolism chronic Screening for osteoporosis c hronic Cutaneous leukocytoclastic angiitis resolved History of hypercalcemia res olved Hypercalcemia resolved Lung nodules resolved Neuropathy resolved Vasculitis resolved [facility] Work Phone: Evaluation note* Diagnosis Primary open-angle glaucoma, bilateral, mild stage- Primary [facility] Primary open-angle glaucoma, bilateral, mild stage- Primary [facility] Diagnosis Primary open-angle glaucoma, bilateral, [...] Lung nodules resolved Neuropathy resolved Vasculitis resolved [facility] Work Phone: Evaluation note* Diagnosis Acute right hip pain- Primary Trochanteric bursitis of right hip Gluteal tendonitis of right buttock documented in this encounter [facility]* Diagnosis Acute pain of right shoulder- Primary Neck pain Cervicalgia documented in this encounter [facility]* Diagnosis Primary open-angle glaucoma, bilateral, mild stage- Primary PCO (posterior capsular opacification), bilateral After-cataract, unspecified Dry eye syndrome of bilateral lacrimal glands Tear film insufficiency, unspecified [facility] Diagnosis Lymphedema- Primary Other noninfectious lymphedema [facility] filedocumented in this encounter [facility] Author Lynsey Land [facility] January 30, 2024 11:05am Note Date/Time January 30, 2024 1 0:16am [facility] [place] [address] Cancer Center Note Signed Patient: Myla Pollack MR#: [id number] : 1950 Acct:[id number] Age/Sex: 73 / F Type: DEP AMB Date of Service: 01/30/24 Copies to: Kenyetta Reynolds MD~ Assessment & Plan A/P (1) Breast cancer, right: Plan: Estrogen receptor status: negative Patient sex: female 1. 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 ER negative, TN weak, and HER-2 nonamplified. 2. She underwent mastectomy at [facility] in 02/2015. Completed dose dense AC X4 and Taxol X 12 in August 2015. 3. 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 Anastrozole was resumed in 03/2017 4. Saw network management specialist in [place] for persistent leg pain and swelling (he [...] inflammatory. She was referred to pulmonary at [facility]. --Followup PET/CT 08/2017 showed resolution of prior [...] changes on self breast exam. Screening left [id number]/19/2023 without recurrence. No systemic symptoms of recurrence, [...] of anastrozole, we will now follow annually [facility] but patient wishes to return to oncology). We will arrange her annual follow-ups after her annual mammograms in January of each year. She also requested refill of breast prosthesis and mastectomy bra. No breast exam due to telephone visit. No skin changes or breast tenderness. No recent f/u by network management specialist in [place]--was reported to have vasculitis 4 years ago--now resolved but still has some mild erythema and swelling of left greater than right leg without pain. Receives Anastrozole due to weak TN expression--no significant myalgias/arthralgias or hot flashes. No [...] pT1c, N0, M0. Tumor was ER negative, TN weak, and HER-2 nonamplified. She underwent right mastectomy at [facility] in 02/2015. Completed dose dense AC X4 [...] years of adjuvant therapy. 3. Evaluated by network management specialist in [place] (does not believe she had vasculitis)--no recent [...] inflammatory. She was referred to pulmonary at [facility]. Ground glass opacities resolved on PET/CT 08/2017. [...] of Therapies: 1. Right breast mastectomy at [facility] (Dr. Rodriguez) in 02/2015. 2. Completed [...] By: <Electronically signed by CHIDI Land> 01/30/24 1109 [facility] Work Phone: Summary Purpose Family [...] the event of a Fluress shortage, administer Streetman-Fluor 1 drop into both eyes as directed for applanation tonometry Given 01/17/2023 8:30 AM EDT 1 Drop Reason for Referral Specialty Diagnoses / Procedures Referred By Contac t Referred To Contact Orthopaedic Surgery Diagnoses Trochanteric bursitis of right hip Gluteal tendonitis of right buttock Procedures L Inj/Asp: R greater trochanteric bursa Dino George, BET[address] [place] [address] Referral ID Status Reason Start Date Expiration Date V isits Requested Visits Authorized [id number] Authorized 12/19/2023 06/16/2024 1 1 Additional Source Comments INFORMATION SOURCE (unrecogn ized section and content) DATE CREATED AUTHOR 09/27/2017 [facility] DATE CREATED AUTHOR AUTHOR'S ORGANIZ ATION 01/18/2018 [facility] DATE CREATED AUTHOR AUTHOR'S ORGANIZ ATION 08/05/2018 [facility] DATE CREATED AUTHOR AUTHOR'S ORGANIZ ATION 09/10/2022 [facility] DATE CREATED AUTHOR AUTHOR'S ORGANIZ ATION 07/15/2023 [facility] DATE CREATED AUTHOR AUTHOR'S ORGANIZ ATION 01/31/2024 [facility] DATE CREATED AUTHOR AUTHOR'S ORGANIZ ATION 04/15/2024 [facility] EP[facility] DATE CREATED AUTHOR AUTHOR'S ORGANIZ ATION 04/21/2024 [facility] DATE CREATED AUTHOR AUTHOR'S ORGANIZ ATION 05/22/2024 [facility] Care Teams (unrecognized sec tion [...] Attending Provider Active Start: January 30, 2024 eKnyetta Reynolds MD Primary Care Provider Active Start: January 30, 2024 Team Status: Active Member Role Status Dates Christian Steiner MD Other Provider Active Kacie Garay MD Attending Provider Active Kenyetta Reynolds MD Primary Care Provider Active Yarn Finisher Relationship Specialty Start Date End Date Kenyetta Reynolds MD [address] [place] [address] PCP - General Family Medicine 03/14/19 Yarn Finisher Relationship Specialty Start Date End Date Kenyetta Reynolds MD PCP - General Family Medicine 03/14/19 Yarn Finisher Relationship Specialty Start Date End Date Kenyetta Reynolds MD PCP - General Family Medicine 03/14/19 Yarn Finisher Relationship Specialty Start Date End Date Kenyetta Reynolds MD [address] [place] [address] PCP - General Family Medicine 09/15/22 Yarn Finisher Relationship Specialty Start Date End Date Kenyetta Reynolds MD PCP - General Family Medicine 03/14/19 Yarn Finisher Relationship Specialty Start Date End Date Kenyetta Reynolds MD PCP - General Family Medicine 03/14/19 Yarn Finisher Relationship Specialty Start Date End Date Kenyetta Reynolds MD PCP - General Family Medicine 03/14/19 Yarn Finisher Relationship Specialty Start Date End Date Kenyetta Reynolds MD [address] [place] [address] PCP - General Family Medicine 09/15/22 Yarn Finisher Relationship Specialty Start Date End Date Kenyetta Reynolds MD [address] [place] [address] PCP - General Family Medicine 09/15/22 Yarn Finisher Relationship Specialty Start Date End Date Kenyetta Reynolds MD [address] [place] [address] PCP - General Family Medicine 09/15/22 Yarn Finisher Relationship Specialty Start Date End Date Kenyetta Reynolds MD [address] [place] [address] PCP - General Family Medicine 09/15/22 Yarn Finisher Relationship Specialty Start Date End Date Kenyetta Reynolds MD [address] [place] [address] PCP - General Family Medicine 12/20/19 Goals [...] or prosecute any alcohol or drug abuse patient.[facility] the event this information is protected by the Federal Confidentiality of Alcohol and Drug Abuse Patient Records regulations: The Federal rules restrict any use of the information to criminally investigate or prosecute any alcohol or drug abuse patient.[facility] the event this information is protected by the Federal Confidentiality of Alcohol and Drug Abuse Patient Records regulations: The Federal rules restrict any use of the information to criminally investigate or prosecute any alcohol or drug abuse patient.[facility] the event this information is protected by the Federal Confidentiality of Alcohol and Drug Abuse Patient Records regulations: The Federal rules restrict any use of the information to criminally investigate or prosecute any alcohol or drug abuse patient.[facility] the event this information is protected by the Federal Confidentiality of Alcohol and Drug Abuse Patient Records regulations: The Federal rules restrict any use of the information to criminally investigate or prosecute any alcohol or drug abuse patient.[facility] the event this information is protected by the Federal Confidentiality of Alcohol and Drug Abuse Patient Records regulations: The Federal rules restrict any use of the information to criminally investigate or prosecute any alcohol or drug abuse patient.[facility] Hospital[facility] the event this information is protected by the Federal Confidentiality of Alcohol and Drug Abuse Patient Records regulations: The Federal rules restrict any use of the information to criminally investigate or prosecute any alcohol or drug abuse patient.[facility] Reason for Visit (unrecogniz ed section [...] BE BASED ON THE PRIMARY CLINICAL RECORDS. [employer] provides no warranty or guarantee of the accuracy or completeness of information in this document.
[2024-06-11 10:38] LABS: INR 1.41; Prothrombin Time 14.4 sec (9.0-11.6)
[2024-06-11 11:09] VITALS: BP 144/79; PULSE 83; O2SAT 97
[2024-06-11] MEDS: LIDOCAINE HCL 2% 400 MG/20 ML MDV INJ (11:11)
[2024-06-11] MEDS: BUPIVACAINE HCL 0.25% PF 25 MG/10 ML VIAL 6 ML INJ (11:11)
[2024-06-11 11:12] VITALS: BP 137/78; PULSE 89; O2SAT 99
--- NOTE | 2024-06-11 11:13 | W.PM.PROCNOT ---
Date of procedure: 06/11/24 Pre-op diagnosis: Pain due to cervical spondylosis without myelopathy Post-op diagnosis: same as pre-op Procedure: Procedure: Bilateral C2-3, 3-4 medial branch block Medications: Bupivacaine 0.25% 6cc The patient was seen and examined in the preoperative holding area.? The informed consent was obtained and placed on the chart.? The patient was brought to the medical procedure unit and placed in the prone position.? A timeout was completed verifying correct patient, procedure site, positioning, plan, and special equipment.? Using aseptic technique, the needle was placed at left C2.? Under direct fluoroscopic visualization, a Quincke tip needle was advanced to the midpoint of the waist of the articular pillar at the respective medial branch segment. The above-mentioned injectate was placed in a 1 mL aliquot proceeded by negative aspiration.? The needle was removed.? The procedure was completed at all left C3, 4. The same procedure, at the same levels, was then completed on the right side. Insertion site was covered.? Patient was taken to the postprocedural recovery area and monitored for an appropriate length of time before found suitable for discharge in the accompaniment of a responsible adult. Anesthesia: Local Surgeon: Lizzie Torre Pathology: none sent Condition: stable Disposition: no change
== END 2024-06-11 11:18 | disposition home or self-care (01) ==
PROVIDERS: PCP Family Medicine; Visit Provider Anesthesiology
DX: M47.812 Spondylosis without myelopathy or radiculopathy, cervical region (principal); Z79.01 Long term (current) use of anticoagulants
CPT/HCPCS: 36415; 64490; 64491; 85610; J0665

== ENCOUNTER 2024-06-13 11:25 | Outpatient (OUT) | payer MEDICARE, OTHER, SELFPAY ==
--- OUTSIDE RECORDS SUMMARY | 2024-06-13 11:30 | XMS_ITS | CCD ---
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 Get Ready Mechanic Name Role Phone Demarco Hess Unavailable Unavailable [...] Provider Unavailable MD Kacie Garay Attending Provider [phone] MD Kenyetta Reynolds Primary Care Provider [phone] Kenyetta Reynolds MD Primary Care Provider [phone] Kenyetta Reynolds MD Primary Care Provider [phone] CORAWWAD, COVARRUBIAS H Attending Unavailable FAWWAD, COVARRUBIAS [...] Provider MD Kenyetta Reynolds Primary Care Provider [phone] Kenyetta Reynolds MD Primary Care Provider LYNSEY SALDANA Attending Unavailable KENYETTA REYNOLDS Referring Unavailable KENYETTA REYNOLDS Primary Care Unavailable Kenyetta Reynolds MD Primary Care Provider [phone] MD Christian Steiner Other Provider MD Kacie Garay Attending Provider MD Kenyetta Reynolds Primary Care Provider [phone] Christian Steiner Consulting Unavailable Kacie Garay Admitting Unavailable Kacie Garay Attending Unavailable Kneyetta Reynolds Primary Care Unavailable JR. BOUDREAUX GEORGE [...] Unavailable Kenyetta Reynolds MD Primary Care Provider [phone] Nicho FERGUSON, Lizzie Little Attending Unavailable Allergies Allergy Classification Reported Allergen(s) Allergy Type Date of Onset Reaction(s) Facility Sulfonamides (antibiotic) (1 source) Sulfonamides (Antibiotic) Drug Allergy 9 Unknown [facility] (17 sources) Sulfonamides (Antibiotic); 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: [SULFA (SULFONAMIDE ANTIBIOTICS)] Drug Allergy 9 Unknown [facility] (1 source) Sulfonamides (Antibiotic) Drug allergy (disorder) 5 [facility] (8 sources) Sulfamethoxazole / Trimethoprim Drug Allergy 1 Unknown [facility] (1 source) Sulfonamides (Antibiotic) Drug allergy (disorder) 4 [facility] Medications Current Medications Medication Drug [...] by mouth every six hours as needed jfadlgfmxc-kjptjtpkflujo-lrsqyrot 50-325 -40 MG tablet Take 1 tablet by mouth every 6 (six) hours if needed. 0 Active End: 01-17-2023 acetaminophen 325 mg-caffein e 40 mg-butalbital 50 mg (FIORICET) per tablet slghpdyupi-gmnfmkwskyerw-qygvcbey 50 mg-325 mg-40 mg tablet 0 01/17/2023 [...] Oral Daily July 19, 2018 10:42am 07-19-2018 [facility] ([id number]) 07/19/2018 Active take 1 tablet by mouth in the mo rning cholecalciferol (D3-5) 5,000 Units tablet Take 5,000 Units by mouth in the morning. Active Comment on above: Cholecalciferol Chol ecalciferol (Vitamin D3) Active 1000 UNIT Oral Daily July 19, 2018 10:42am 07-19-2018 [facility] ([id number]) CHONDROITIN SULFATE A ORAL (14 sources) take [...] Twice daily March 25, 2017 10:57am 03-25-2017 [facility] ([id number]) 03/25/2017 Active Comment on above: Linseed Oil Flaxseed Oil Active 1000 MG Oral Twice daily March 25, 2017 10:57am 03-25-2017 [facility] ([id number]) Magnesium (16 sources) take 1 mg by [...] Oral Daily January 05, 2017 3:53pm 01-05-2017 [facility] ([id number]) 01/05/2017 Active Comment on above: Magnesium Oxide Magn esium Oxide Active 250 MG Oral Daily January 05, 2017 3:53pm 01-05-2017 [facility] ([id number]) montelukast 10 mg oral tablet (19 sources) [...] puff(s) by inhalation every twenty-four hours Tiotropium Charlotte (Spiriva Respimat) 2.5 mcg/actuation Mist Discontinued 2 [...] source) longterm (current) use of anticoagulants; 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: [LONG-TERM CURRNT USE ANTICOAGULANTS] Onset: 3 Episodic Other [...] Long-term current use of anticoagulant; 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] Onset: 02-02-2019 Resolved: 09-14-2022 07-05-2022 Episodic Other aftercare (15 sources) Long-term current use of drug therapy; 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: [Other custodial (current) drug therapy] Onset: 03-22-2022 Resolved: 09-14-2022 07-05-2022 Episodic Other aftercare (1 source) Other custodial (current) drug therapy; 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: [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] Onset: 03-22-2022 Episodic Other [...] 07-05-2022 Episodic Unclassified (1 source) HEALTH MAINTENANCE 74845 Z00.00 Onset: 01-28-2017 Urinary tract infections (8 sources) Acute cystitis; 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: [Acute cystitis without hematuria] Onset: 10-19-2019 Resolved: 06-13-2023 06-13-2023 Episodic Results Test Name Value Interpretation Reference Range Facility MM screening mammo LT w/CADo n 01-23-2024 MM screening mammo LT w/CAD [facility] Main [place] [address] [place] [address] Mammography Report Signed Patient: Myla Pollack MR#: [id number] : 1950 Acct:[id number] Age/Sex: 73 / F ADM Date: 01/23/24 Loc: Room: Type: [facility] RCR Attending Dr: Kacie Garay MD [...] José Sandoval M.D.01/23/2024 10:09 AM Dictation Location: [facility] Transcribed By: [facility] 01/23/24 1009 Dictated By: José Sandoval DO 01/23/24 1008 Signed By: 01/23/24 1009 Normal [facility] No Panel Informationon 12-18 [...] and draped in the usual sterile fashion. [facility] LASER TRABECULOPLASTY OD (RI GHT EYE)on 09-05-2023 [facility] OCT OPTIC NERVE CIRRUS OU (B OTH EYES)on 07-27-2023 [facility] Radiology Study observation (narrative) [facility] VISUAL FIELD 24-2 OU (BOTH E YES)on 07-27-2023 [facility] Radiology Study observation (narrative) [facility] MRI WRIST RT WO CONon 2022 [...] DINO GREGORY Date: 2022-06-20 13:14 Normal [facility] INSULINon 04-29-2022 Insulin 15.6 uIU/mL Normal 2.6-24.9 [facility] Comment on above: Performed By: #### I NSULIN #### [facility] [address] [place] [address] Dr. Marizol Macedo CBC AUTO DIFFon 04-28-2022 BASO # 0.0 103/ul Normal 0.0-0.1 [facility] Comment on above: Performed By: #### C BC #### [facility] [address] [place] [address] Dr. Marizol Macedo Basophils/100 WBC (Bld) 0.3 % Normal 0.2-2.0 [facility] Comment on above: Performed By: #### C BC #### [facility] [address] [place] [address] Dr. Marizol Macedo EO # 0.1 103/ul Normal 0.0-0.7 [facility] Comment on above: Performed By: #### C BC #### [facility] [address] [place] [address] Dr. Marizol Macedo Eosinophils/100 WBC (Bld) 1.0 % Normal 0.9-7.0 [facility] Comment on above: Performed By: #### C BC #### [facility] [address] [place] [address] Dr. Marizol Macedo Erythrocyte distribution width (RBC) [Ratio] 12.6 % Normal 11.0-15.0 [facility] Comment on above: Performed By: #### C BC #### [facility] [address] [place] [address] Dr. Marizol Macedo Hematocrit (Bld) [Volume fraction] 43.4 % Normal 36.0-48.0 [facility] Comment on above: Performed By: #### C BC #### [facility] [address] [place] [address] Dr. Marizol Macedo Hemoglobin (Bld) [Mass/Vol] 14.1 g/dL Normal 12.0-16.0 [facility] Comment on above: Performed By: #### C BC #### [facility] [address] [place] [address] Dr. Marizol Macedo IG # 0.02 10e3/ul Normal 0.00-0.03 [facility] Comment on above: Performed By: #### C BC #### [facility] [address] [place] [address] Dr. Marizol Macedo IG % 0.3 % Normal 0.0-0.5 [facility] Comment on above: Performed By: #### C BC #### [facility] [address] [place] [address] Dr. Marizol Macedo LYMPH # 2.4 103/ul Normal 1.2-3.8 [facility] Comment on above: Performed By: #### C BC #### [facility] [address] [place] [address] Dr. Marizol Macedo Lymphocytes/100 WBC (Bld) 30.9 % Normal 20.5-60.0 [facility] Comment on above: Performed By: #### C BC #### [facility] [address] [place] [address] Dr. Marizol Macedo MANUAL DIFF REQ NO Normal [facility] Comment on above: Performed By: #### C BC #### [facility] [address] [address] [address] Marizol Macedo MCH (RBC) [Entitic mass] 30.7 pg Normal 26.7-34.0 [facility] Comment on above: Performed By: #### C BC #### [facility] [address] [place] [address] Dr. Marizol Macedo MCHC (RBC) [Mass/Vol] 32.5 g/dL Normal 29.9-35.2 [facility] Comment on above: Performed By: #### C BC #### [facility] [address] [place] [address] Dr. Marizol Macedo MCV (RBC) [Entitic vol] 94.3 fL Normal 81.0-99.0 [facility] Comment on above: Performed By: #### C BC #### [facility] [address] [place] [address] Dr. Marizol Macedo MONO # 0.4 103/ul Normal 0.3-0.8 [facility] Comment on above: Performed By: #### C BC #### [facility] [address] [place] [address] Dr. Marizol Macedo Monocytes/100 WBC (Bld) 5.4 % Normal 1.7-12.0 [facility] Comment on above: Performed By: #### C BC #### [facility] [address] [place] [address] Dr. Marizol Macedo NEUT # 4.9 103/ul Normal 1.4-6.5 [facility] Comment on above: Performed By: #### C BC #### [facility] [address] [place] [address] Dr. Marizol Macedo Neutrophils/100 WBC (Bld) 62.1 % Normal 43.0-75.0 [facility] Comment on above: Performed By: #### C BC #### [facility] [address] [place] [address] Dr. Marizol Macedo Platelet mean volume (Bld) [Entitic vol] 10.2 fL Normal 9.5-13.5 [facility] Comment on above: Performed By: #### C BC #### [facility] [address] [address] [address] Marizol Macedo PLT 279 103/ul Normal 150-450 [facility] Comment on above: Performed By: #### C BC #### [facility] [address] [address] [address] Marizol Macedo RBC 4.60 106/ul Normal 4.20-5.40 [facility] Comment on above: Performed By: #### C BC #### [facility] [address] [place] [address] Dr. Marizol Macedo WBC 7.8 103/ul Normal 4.0-11.0 [facility] Comment on above: Performed By: #### C BC #### [facility] [address] [place] [address] Dr. Marizol Macedo FREE THYROXINE INDEX T7on FTI 3.50 Normal 1.30-4.50 [facility] Comment on above: Performed By: #### L IPID, T7, CMP, TSH #### [facility] [address] [place] [address] Dr. Marizol Macedo T3U 35.0 % Normal 30.0-39.0 [facility] Comment on above: Performed By: #### L IPID, T7, CMP, TSH #### [facility] [address] [place] [address] Dr. Marizol Macedo T4 [Mass/Vol] 10.00 ug/dL Normal 4.80-13.90 [facility] Comment on above: Performed By: #### L IPID, T7, CMP, TSH #### [facility] [address] [place] [address] Dr. Marizol Macedo GLYCOHEMOGLOBIN A1Con 2022 ADA RECOMMENDATION SEE BELOW Normal [facility] Comment on above: Result Comment: ADA RECOMMENDED LIMIT 4.0 - 6.0 ADA THERAPEUTIC TARGET < 7.0 ACTION SUGGESTED > 7.0 Performed By: #### A 1C #### [facility] [address] [place] [address] Dr. Marizol Macedo Glucose [Mass/Vol] 114 mg/dL Normal [facility] Comment on above: Performed By: #### A 1C #### [facility] [address] [place] [address] Dr. Marizol Macedo HbA1c (Bld) [Mass fraction] 5.6 % Normal 4.5-6.2 [facility] Comment on above: Performed By: #### A 1C #### [facility] [address] [place] [address] Dr. Marizol Macedo IRONon 04-28-2022 Iron [Mass/Vol] 136.0 ug/dL Normal 50.0-170.0 [facility] Comment on above: Performed By: #### I CECELIA #### [facility] [address] [place] [address] Dr. Marizol Macedo LIPID PROFILEon 04-28-2022 CHOL-HDL RATIO NORM SEE BELOW Normal [facility] Comment on above: Result Comment: 3.3 - 4.4 LOW RISK 4.4 - 7.1 AVERAGE RISK 7.1 - 11.0 MODERATE RISK >11.0 HIGH RISK Performed By: #### L IPID, T7, CMP, TSH #### [facility] [address] [place] [address] Dr. Marizol Macedo Cholesterol [Mass/Vol] 134 mg/dL Normal <=200 [facility] Comment on above: Performed By: #### L IPID, T7, CMP, TSH #### [facility] [address] [place] [address] Dr. Marizol Macedo Cholesterol in HDL [Mass/Vol] 69 mg/dL Critically high 40-60 [facility] Comment on above: Performed By: #### L IPID, T7, CMP, TSH #### [facility] [address] [place] [address] Dr. Marizol Macedo Cholesterol in LDL [Mass/Vol] 46.6 mg/dL Normal [facility] Comment on above: Performed By: #### L IPID, T7, CMP, TSH #### [facility] [address] [place] [address] Dr. Marizol Macedo Cholesterol.total/Ch olesterol in HDL [Mass ratio] 1.9 {ratio} Normal [facility] Comment on above: Performed By: #### L IPID, T7, CMP, TSH #### [facility] [address] [address] [address] Marizol Macedo HDL NORMAL > or = 60 mg/dl - LO W CARDIOVASCULAR RISK <40 mg/dl - HIGH CARDIOVASCULAR RISK Normal [facility] Comment on above: Performed By: #### L IPID, T7, CMP, TSH #### [facility] [address] [address] [address] Marizol Macedo LDL CALC NORMAL SEE BELOW Normal [facility] Comment on above: Result Comment: <100 mg/dl OPTIMAL 100 - 129 mg/dl NEAR OR ABOVE OPTIMAL 130 - 159 mg/dl BORDERLINE HIGH 160 - 189 mg/dl HIGH >190 mg/dl VERY HIGH Performed By: #### L IPID, T7, CMP, TSH #### [facility] [address] [address] [address] Marizol Macedo Triglyceride [Mass/Vol] 92 mg/dL Normal <=150 [facility] Comment on above: Performed By: #### L IPID, T7, CMP, TSH #### [facility] [address] [address] [address] Marizol Macedo VLDL CALC 18.4 mg/dL Normal [facility] Comment on above: Performed By: #### L IPID, T7, CMP, TSH #### [facility] [address] [address] [address] Marizol Macedo PROF 14(COMP METB)on 023 Albumin [Mass/Vol] 3.9 g/dL Normal 3.4-5.0 [facility] Comment on above: Performed By: #### L IPID, T7, CMP, TSH #### [facility] [address] [address] [address] Marizol Macedo Albumin/Globulin [Mass ratio] 1.1 {ratio} Normal [facility] Comment on above: Performed By: #### L IPID, T7, CMP, TSH #### [facility] [address] [address] [address] Marizol Macedo ALP [Catalytic activity/Vol] 97 U/L Normal 46-116 [facility] Comment on above: Performed By: #### L IPID, T7, CMP, TSH #### [facility] [address] [place] [address] Dr. Marizol Macedo ALT [Catalytic activity/Vol] 57 U/L Normal 14-59 [facility] Comment on above: Performed By: #### L IPID, T7, CMP, TSH #### [facility] [address] [place] [address] Dr. Marizol Macedo Anion gap [Moles/Vol] 11.9 mmol/L Normal [facility] Comment on above: Performed By: #### L IPID, T7, CMP, TSH #### [facility] [address] [place] [address] Dr. Marizol Macedo AST [Catalytic activity/Vol] 35 U/L Normal 15-37 [facility] Comment on above: Performed By: #### L IPID, T7, CMP, TSH #### [facility] [address] [place] [address] Dr. Marizol Macedo Bilirubin [Mass/Vol] 0.6 mg/dL Normal 0.2-1.0 [facility] Comment on above: Performed By: #### L IPID, T7, CMP, TSH #### [facility] [address] [place] [address] Dr. Marizol Macedo Calcium [Mass/Vol] 9.8 mg/dL Normal 8.5-10.1 [facility] Comment on above: Performed By: #### L IPID, T7, CMP, TSH #### [facility] [address] [address] [address] Marizol Macedo Chloride [Moles/Vol] 103 mmol/L Normal 98-107 [facility] Comment on above: Performed By: #### L IPID, T7, CMP, TSH #### [facility] [address] [place] [address] Dr. Marizol Macedo CO2 [Moles/Vol] 28.0 mmol/L Normal 21.0-32.0 [facility] Comment on above: Performed By: #### L IPID, T7, CMP, TSH #### [facility] [address] [address] [address] Marizol Macedo Creatinine [Mass/Vol] 0.75 mg/dL Normal 0.55-1.02 [facility] Comment on above: Performed By: #### L IPID, T7, CMP, TSH #### [facility] [address] [place] [address] Dr. Marizol Macedo EGFR-AF VENEZUELAN >60 Normal >=60 [facility] Comment on above: Performed By: #### L IPID, T7, CMP, TSH #### [facility] [address] [place] [address] Dr. Marizol Macedo EGFR-NON AF VENEZUELAN >60 Normal >=60 [facility] Comment on above: Performed By: #### L IPID, T7, CMP, TSH #### [facility] [address] [place] [address] Dr. Marizol Macedo Globulin (S) [Mass/Vol] 3.5 g/dL Normal [facility] Comment on above: Performed By: #### L IPID, T7, CMP, TSH #### [facility] [address] [place] [address] Dr. Marizol Macedo Glucose [Mass/Vol] 91 mg/dL Normal 74-106 [facility] Comment on above: Performed By: #### L IPID, T7, CMP, TSH #### [facility] [address] [place] [address] Dr. Marizol Macedo Potassium [Moles/Vol] 3.9 mmol/L Normal 3.5-5.1 [facility] Comment on above: Performed By: #### L IPID, T7, CMP, TSH #### [facility] [address] [place] [address] Dr. Marizol Macedo Protein [Mass/Vol] 7.4 g/dL Normal 6.4-8.2 [facility] Comment on above: Performed By: #### L IPID, T7, CMP, TSH #### [facility] [address] [address] [address] Marizol Macedo Sodium [Moles/Vol] 139 mmol/L Normal 136-145 [facility] Comment on above: Performed By: #### L IPID, T7, CMP, TSH #### [facility] [address] [place] [address] Dr. Marizol Macedo Urea nitrogen [Mass/Vol] 13.0 mg/dL Normal 7.0-18.0 [facility] Comment on above: Performed By: #### L IPID, T7, CMP, TSH #### [facility] [address] [place] [address] Dr. Marizol Macedo Urea nitrogen/Creatinine [Mass ratio] 17.3 mg/mg Normal [facility] Comment on above: Performed By: #### L IPID, T7, CMP, TSH #### [facility] [address] [place] [address] Dr. Marizol Macedo TSHon 04-28-2022 TSH 1.306 uIU/mL Normal 0.358-3.740 [facility] Comment on above: Performed By: #### L IPID, T7, CMP, TSH #### [facility] [address] [place] [address] Dr. Mraizol Macedo CBC W/DIFFon 09-28-2017 ABS BASOPHILS 0.0 10*3/uL Normal 0.0-0.2 [facility] Comment on above: Performed By: #### 4 180, 73418 ####[facility] [address] ABS IMM GRANS 0.0 10*3/uL Normal 0.0-0.2 [facility] Comment on above: Performed By: #### 4 180, 02182 ####[facility] [address] ABS NEUTROPHILS 2.8 10*3/uL Normal 1.6-7.6 [facility] Comment on above: Performed By: #### 4 180, 46169 ####[facility].[address] Basophils Auto #/vol (Bld) 0.5 % Normal 0.0-1.0 [facility] Comment on above: Performed By: #### 4 180, [address] ####[address] [address] [facility].[address] Eosinophils Auto #/vol (Bld) 0.1 10*3/uL Normal 0.0-0.5 [facility] Comment on above: Performed By: #### 4 1801, 15478 ####[address] Eosinophils/100 WBC Auto (Bld) 2.3 % Normal 0.0-6.0 [facility] Comment on above: Performed By: #### 4 1801, 00871 ####[address] Erythrocyte distribution width Auto Ratio (RBC) 12.9 % Normal 11.5-15.0 [facility] Comment on above: Performed By: #### 4 1801, [address]19 ####[address] [address] [address] [facility].[address] Hematocrit Auto Volume Fraction (Bld) 42.9 % Normal 36.0-45.0 [facility] Comment on above: Performed By: #### 4 1801, 01336 ####[address] [address] [facility].[address] Hemoglobin mass conc (Bld) 14.1 g/dL Normal 12.0-15.0 [facility] Comment on above: Performed By: #### 4 180, 71096 ####[address] IMMATURE GRANS 0.3 % Normal 0.0-1.0 [facility] Comment on above: Performed By: #### 4 180, 38052 ####[facility].[address] Lymphocytes Auto #/vol (Bld) 2.4 10*3/uL Normal 1.2-4.0 [facility] Comment on above: Performed By: #### 4 1801, 04161 ####[facility].[address] Lymphocytes/100 WBC Auto (Bld) 39.5 % Normal 20.0-45.0 [facility] Comment on above: Performed By: #### 4 1801, 18277 ####[facility].[address] MCH Auto Entitic mass (RBC) 30.3 pg Normal 27.0-33.0 [facility] Comment on above: Performed By: #### 4 1801, 77985 ####[place] [address] [facility].[address] MCHC Auto mass conc (RBC) 32.9 g/dL Normal 32.0-35.0 [facility] Comment on above: Performed By: #### 4 1801, 07546 ####[facility].[address] MCV Auto Entitic volume (RBC) 92.3 fL Normal 82.0-98.0 [facility] Comment on above: Performed By: #### 4 1801, 51351 ####[facility].[address] Monocytes Auto #/vol (Bld) 0.7 10*3/uL Normal 0.1-1.0 [facility] Comment on above: Performed By: #### 4 1801, 64715 ####[address] MONOS 11.2 % Normal 5.0-12.0 [facility] Comment on above: Performed By: #### 4 180, 51771 ####[facility] Neutrophils/100 WBC Auto (Bld) 46.2 % Normal 40.0-72.0 [facility] Comment on above: Performed By: #### 4 180, 38975 ####[facility] Nucleated RBC/100 WBC Ratio (Bld) 0 % Normal 0-0 [facility] Comment on above: Performed By: #### 4 1801, 42906 ####[place] [address] [facility] PLAT CNT 263 10*3/uL Normal 150-400 [facility] Comment on above: Performed By: #### 4 1801, 09048 ####[facility].[address] RBC Auto #/vol (Bld) 4.65 10*6/uL Normal 3.80-5.00 Th e [facility] Comment on above: Performed By: #### 4 1801, 24402 ####[facility] WBC Auto #/vol (Bld) 6.07 10*3/uL Normal 4.00-10.60 Th e [facility] Comment on above: Performed By: #### 4 1801, 03338 ####[facility] COMP METABOLIC PANELon 09-28 Albumin mass conc 4.1 g/dL Normal 3.5-5.7 The [facility] Comment on above: Performed By: #### 4 1801, 25303 ####[place] [address] ALKALINE PHOSPH 73 IU/L Normal 34-104 The [facility] Comment on above: Performed By: #### 4 180, 45244 ####[facility] [place] [address], [facility] ALT enzyme act/vol 54 U/L High 7-52 The [facility] Comment on above: Performed By: #### 4 180, 17841 ####[facility] [place] [address], [facility] AST enzyme act/vol 40 U/L High 13-39 The [facility] Comment on above: Performed By: #### 4 180, 45825 ####[facility] [place] [address], [facility] Bilirubin mass conc 0.4 mg/dL Normal 0.3-1.0 The [facility] Comment on above: Performed By: #### 4 180, 79465 ####[facility] [place] [address], [facility] Calcium mass conc 9.7 mg/dL Normal 8.6-10.3 The [facility] Comment on above: Performed By: #### 4 180, 63120 ####[facility] [place] [address], [place] Chloride molar conc 103 mmol/L Normal 98-107 The [facility] Comment on above: Performed By: #### 4 180, 04899 ####[facility] [place] [address], [place] CO2 molar conc 28 mmol/L Normal 21-31 The [facility] Comment on above: Performed By: #### 4 180, 44230 ####[facility] [place] [address], [place] Creatinine mass conc 0.81 mg/dL Normal 0.60-1.20 The [facility] Comment on above: Performed By: #### 4 180, 74377 ####[facility] [place] [address], [place] GFR/1.73 sq M predicted among blacks MDRD vol rate/area (S/P/Bld) mL/min/{1.73_m2} Normal >60 The [facility] Comment on above: Performed By: #### 4 180, 32159 ####[facility] [place] [address], [place] GFR/1.73 sq M predicted among non-blacks MDRD vol rate/area (S/P/Bld) mL/min/{1.73_m2} Normal >60 The [facility] Comment on above: Performed By: #### 4 180, 19680 ####[facility] [place] [address], [place] Glucose mass conc 95 mg/dL Normal 70-100 The [facility] Comment on above: Performed By: #### 4 180, 31999 ####[facility] [place] [address], [place] Potassium molar conc 4.4 mmol/L Normal 3.5-5.1 The [facility] Comment on above: Performed By: #### 4 180, 81012 ####[facility] [place] [address], [place] Protein mass conc 7.2 g/dL Normal 6.0-8.3 The [facility] Comment on above: Performed By: #### 4 180, 66635 ####[facility] [place] [address], [place] Sodium molar conc 139 mmol/L Normal 136-145 The [facility] Comment on above: Performed By: #### 4 180, 16195 ####[facility] [place] [address], [place] Urea nitrogen mass conc 19 mg/dL Normal 7-25 The [facility] Comment on above: Performed By: #### 4 180, 44526 ####[facility] [place] [address], [facility] Glucose Glucometer (BldC) [M ass/Vol]on 08-17-2017 Glucose [Mass/Vol] 99 mg/dL [facility] Comment on above: Random Glucose Refer ence Range is dependent on time and content of last meal. Glucose of more than 200 mg/dL in a nonstressed, ambulatory subject supports the diagnosis of Diabetes Mellitus. CBC W/DIFFon 03-31-2017 Basophils Auto #/vol (Bld) 0.3 % Normal 0.0-2.0 The [facility] Comment on above: Performed By: #### 4 180, 68973 ####[facility] [place] [address], [facility] Eosinophils/100 WBC Auto (Bld) 2.1 % Normal 0.0-5.0 The [facility] Comment on above: Performed By: #### 4 180, 45345 ####[facility] [place] [address], [facility] Erythrocyte distribution width Auto Ratio (RBC) 13.0 % Normal 11.5-16.9 The [facility] Comment on above: Performed By: #### 4 180, 73301 ####[facility] [place] [address], [facility] Hematocrit Auto Volume Fraction (Bld) 42.6 % Normal 36.0-48.0 The [facility] Comment on above: Performed By: #### 4 180, 11468 ####[facility] [place] [address], [facility] Hemoglobin mass conc (Bld) 14.3 g/dL Normal 12.0-15.0 The [facility] Comment on above: Performed By: #### 4 180, 49064 ####[facility] [place] [address], [facility] Lymphocytes/100 WBC Auto (Bld) 29.7 % Normal 20.0-40.0 The [facility] Comment on above: Performed By: #### 4 180, 68656 ####[facility] MCH Auto Entitic mass (RBC) 30.7 pg Normal 24.0-32.0 The [facility] Comment on above: Performed By: #### 4 180, 55296 ####[facility] MCHC Auto mass conc (RBC) 33.7 g/dL Normal 32.0-36.0 The [facility] Comment on above: Performed By: #### 4 180, 52729 ####[facility] MCV Auto Entitic volume (RBC) 91.2 fL Normal 80.0-100.0 The [facility] Comment on above: Performed By: #### 4 180, 25359 ####[facility] METHOD Normal RBC Morphology Normal The [facility] Comment on above: Performed By: #### 4 180, 25347 ####[facility] MONOS 6.4 % Normal 2-8 The [facility] Comment on above: Performed By: #### 4 180, 92927 ####[facility] [place] [address], [facility] Neutrophils/100 WBC Auto (Bld) 61.5 % Normal 50-70 The [facility] Comment on above: Performed By: #### 4 180, 34877 ####[facility] [place] [address], [facility] PLAT CNT 261 Thou/mm3 Normal 100-400 The [facility] Comment on above: Performed By: #### 4 180, 91447 ####[facility] [place] [address], [facility] RBC Auto #/vol (Bld) 4.67 mill/mm3 Normal 3.50-5.50 T he [facility] Comment on above: Performed By: #### 4 180, 28251 ####[facility] [place] [address], [facility] WBC Auto #/vol (Bld) 6.6 Thou/mm3 Normal 4.0-10.0 Th e [facility] Comment on above: Performed By: #### 4 180, 93442 ####[facility] [place] [address], [facility] COMP METABOLIC PANELon 03-31 Albumin mass conc 4.0 g/dL Normal 3.5-5.7 The [facility] Comment on above: Performed By: #### 4 180, 18705 ####[facility] [place] [address], [facility] ALKALINE PHOSPH 73 IU/L Normal 34-104 The [facility] Comment on above: Performed By: #### 4 180, 00914 ####[facility] [place] [address], [facility] ALT enzyme act/vol 49 U/L Normal 7-52 The [facility] Comment on above: Performed By: #### 4 180, 53018 ####[facility] [place] [address], [facility] AST enzyme act/vol 34 U/L Normal 13-39 The [facility] Comment on above: Performed By: #### 4 180, 20972 ####[facility] [place] [address], [facility] Bilirubin mass conc 0.3 mg/dL Normal 0.3-1.0 The [facility] Comment on above: Performed By: #### 4 180, 65119 ####[facility] [place] [address], [facility] Calcium mass conc 10.0 mg/dL Normal 8.6-10.3 The [facility] Comment on above: Performed By: #### 4 180, 38156 ####[facility] [place] [address], [place] Chloride molar conc 103 mmol/L Normal 98-107 The [facility] Comment on above: Performed By: #### 4 180, 87962 ####[facility] [place] [address], [place] CO2 molar conc 29 mmol/L Normal 21-31 The [facility] Comment on above: Performed By: #### 4 180, 03766 ####[facility] [place] [address], [facility] Creatinine mass conc 0.86 mg/dL Normal 0.60-1.20 The [facility] Comment on above: Performed By: #### 4 180, 53723 ####[facility] [facility] [place] [address], [place] GFR/1.73 sq M predicted among blacks MDRD vol rate/area (S/P/Bld) mL/min/{1.73_m2} Normal >60 The [facility] Comment on above: Performed By: #### 4 180, 60736 ####[facility] [place] [address], [place] GFR/1.73 sq M predicted among non-blacks MDRD vol rate/area (S/P/Bld) mL/min/{1.73_m2} Normal >60 The [facility] Comment on above: Performed By: #### 4 180, 89574 ####[facility] [place] [address], [place] Glucose mass conc 86 mg/dL Normal 70-100 The [facility] Comment on above: Performed By: #### 4 1802, 80798 ####[facility] [place] [address], [facility] Potassium molar conc 4.1 mmol/L Normal 3.5-5.1 The [facility] Comment on above: Performed By: #### 4 1802, 14797 ####[facility] [facility].[address] Protein mass conc 7.0 g/dL Normal 6.0-8.3 The [facility] Comment on above: Performed By: #### 4 1802, 17984 ####[facility] [place] [address], [facility] Sodium molar conc 138 mmol/L Normal 136-145 The [facility] Comment on above: Performed By: #### 4 1802, 24022 ####[facility] [place] [address], [facility] Urea nitrogen mass conc 14 mg/dL Normal 7-25 The [facility] Comment on above: Performed By: #### 4 1802, 34710 ####[facility] [facility].[address] ANAon 02-10-2017 HELENE SCREEN <1:40 Normal <1:40,1:40 The [facility] Comment on above: Performed By: #### 1 0008 ####[facility].[address] ANCA IGG WITH REFLEX [id number] on 02-10-2017 ANCA <1:20 Normal <1:20 The [facility] Comment on above: Result Comment: The ANCA IFA is <1:20; therefore, no further testing willbe performed.INTERPRETIVE INFORMATION: Anti-Neutrophil Cyto Ab, IgGNeutrophil Cytoplasmic Antibodies (C-ANCA = granularcytoplasmic staining, P-ANCA = perinuclear staining) arefound in the serum of over 90 percent of patients withcertain necrotizing systemic vasculitides, and usually inless than 5 percent of patients with collagen vasculardisease or arthritis.Performed by [employer],[address] [place] [id number] guy[employer], Onel Connelly MD - Lab. Director ANTI DNAon 02-10-2017 ANTI DNA <1:10 Normal <1:10 The [facility] Comment on above: Performed By: #### 1 0008 ####[facility] [place] [address], [facility] ANTI-BETA 2 GLYCOPROTEIN 1on 02-10-2017 ANTI B2GP1 IGA 9.3 a units Normal 0.0-19.9 The [facility] Comment on above: Performed By: #### 1 0008 ####[facility] [place] [address], [facility] ANTI B2GP1 IGG 1.1 g units Normal 0.0-19.9 The [facility] Comment on above: Performed By: #### 1 0008 ####[facility] [place] [address], [facility] ANTI B2GP1 IGM 2.5 m units Normal 0.0-19.9 The [facility] Comment on above: Performed By: #### 1 0008 ####[facility] [place] [address], [facility] ANTI-ENAon 02-10-2017 ANTI SM Negative Normal NEG,NEGATIVE,N eg The [facility] Comment on above: Performed By: #### 1 0008 ####[facility] [place] [address], [place] ANTI SM/ANTIRNP Negative Normal NEG,NEGATIVE ,N eg The [facility] Comment on above: Performed By: #### 1 0008 ####[facility] [place] [address], [place] ANTICARDIOLIPIN ANTIBODYon 04-12-2016 CARDIOLIPIN IGA 4.9 APL Normal 0.0-21.9 The [facility] Comment on above: Performed By: #### 1 0008 ####[facility] [facility].[address] CARDIOLIPIN IGG 14.5 GPL Normal 0.0-22.9 The [facility] Comment on above: Performed By: #### 1 0008 ####[facility] [facility].[address] CARDIOLIPIN IGM 9.5 MPL Normal 0.0-10.9 The [facility] Comment on above: Performed By: #### 1 0008 ####[facility] CBC W/DIFFon 02-10-2017 Basophils Auto #/vol (Bld) 0.4 % Normal 0.0-2.0 The [facility] Comment on above: Performed By: #### 5 3 ####[facility] Eosinophils/100 WBC Auto (Bld) 2.5 % Normal 0.0-5.0 The [facility] Comment on above: Performed By: #### 5 3 ####[facility].[address] Erythrocyte distribution width Auto Ratio (RBC) 14.5 % Normal 11.5-16.9 The [facility] Comment on above: Performed By: #### 5 3 ####[facility].[address] Hematocrit Auto Volume Fraction (Bld) 41.0 % Normal 36.0-48.0 The [facility] Comment on above: Performed By: #### 5 3 ####[facility] Hemoglobin mass conc (Bld) 13.6 g/dL Normal 12.0-15.0 [facility] Comment on above: Performed By: #### 5 0103 ####[facility] Lymphocytes/100 WBC Auto (Bld) 26.7 % Normal 20.0-40.0 The [facility] Comment on above: Performed By: #### 5 0103 ####[facility] MCH Auto Entitic mass (RBC) 30.5 pg Normal 24.0-32.0 The [facility] Comment on above: Performed By: #### 5 3 ####[facility] MCHC Auto mass conc (RBC) 33.2 g/dL Normal 32.0-36.0 The [facility] Comment on above: Performed By: #### 5 3 ####[facility] MCV Auto Entitic volume (RBC) 91.8 fL Normal 80.0-100.0 The [facility] Comment on above: Performed By: #### 3 ####[facility] METHOD Normal RBC Morphology Normal The [facility] Comment on above: Performed By: #### 5 3 ####[facility] MONOS 6.6 % Normal 2-8 The [facility] Comment on above: Performed By: #### 5 3 ####[facility] [place] [address], [facility] Neutrophils/100 WBC Auto (Bld) 63.8 % Normal 50-70 The [facility] Comment on above: Performed By: #### 102 ####[facility] [facility] [place] [address], [facility] PLAT CNT 310 Thou/mm3 Normal 100-400 [facility] Comment on above: Performed By: #### 102 ####[facility] [place] [address], [facility] RBC Auto #/vol (Bld) 4.47 mill/mm3 Normal 3.50-5.50 T he [facility] Comment on above: Performed By: #### 102 ####[facility] [facility] [place] [address], [facility] WBC Auto #/vol (Bld) 7.6 Thou/mm3 Normal 4.0-10.0 Th e [facility] Comment on above: Performed By: #### 102 ####[facility] COMP METABOLIC PANELon 02-10 Albumin mass conc 4.3 g/dL Normal 3.5-5.7 The [facility] Comment on above: Performed By: #### 0 0121 ####[facility] ALKALINE PHOSPH 89 IU/L Normal 34-104 The [facility] Comment on above: Performed By: #### 0 0121 ####[facility] ALT enzyme act/vol 35 U/L Normal 7-52 The [facility] Comment on above: Performed By: #### 0 0121 ####[facility] AST enzyme act/vol 27 U/L Normal 13-39 The [facility] Comment on above: Performed By: #### 0 0121 ####[facility] Bilirubin mass conc 0.4 mg/dL Normal 0.3-1.0 The [facility] Comment on above: Performed By: #### 0 0121 ####[facility] [place] [address], [facility] Calcium mass conc 9.9 mg/dL Normal 8.6-10.3 The [facility] Comment on above: Performed By: #### 0 0121 ####[facility] [place] [address], [facility] Chloride molar conc 102 mmol/L Normal 98-107 The [facility] Comment on above: Performed By: #### 0 0121 ####[facility] [place] [address], [facility] CO2 molar conc 25 mmol/L Normal 21-31 The [facility] Comment on above: Performed By: #### 0 0121 ####[facility] [place] [address], [facility] Creatinine mass conc 0.87 mg/dL Normal 0.60-1.20 The [facility] Comment on above: Performed By: #### 0 0121 ####[place] [address] [place] [address], [facility] GFR/1.73 sq M predicted among blacks MDRD vol rate/area (S/P/Bld) mL/min/{1.73_m2} Normal >60 The [facility] Comment on above: Performed By: #### 0 0121 ####[facility] [place] [address], [facility] GFR/1.73 sq M predicted among non-blacks MDRD vol rate/area (S/P/Bld) mL/min/{1.73_m2} Normal >60 The [facility] Comment on above: Performed By: #### 0 0121 ####[facility].[address] Glucose mass conc 99 mg/dL Normal 70-100 The [facility] Comment on above: Performed By: #### 0 0121 ####[facility] [place] [address], [facility] Potassium molar conc 4.1 mmol/L Normal 3.5-5.1 The [facility] Comment on above: Performed By: #### 0 0121 ####[facility] Protein mass conc 7.5 g/dL Normal 6.0-8.3 The [facility] Comment on above: Performed By: #### 0 0121 ####[facility] Sodium molar conc 136 mmol/L Normal 136-145 [facility] Comment on above: Performed By: #### 0 0121 ####[facility] [place] [address], [facility] Urea nitrogen mass conc 20 mg/dL Normal 7-25 The [facility] Comment on above: Performed By: #### 0 0121 ####[facility] COMPLEMENT 3on 02-10-2017 COMPLEMENT 3 154 mg/dL High 79-152 [facility] Comment on above: Performed By: #### 1 0204, 17269, 99567 ####[facility] [place] [address], [facility] COMPLEMENT 4on 02-10-2017 COMPLEMENT 4 34 mg/dL Normal 16-38 [facility] Comment on above: Performed By: #### 1 0204, 76866, 23779 ####[facility] [place] [address], [facility] CREATININE URINE RANDOMon CREATININE 138.0 mg/dL Normal The [facility] Comment on above: Result Comment: Ther e are no established reference values for random urine specimens Performed By: #### 4 1802, 40903 ####[facility] [place] [address], [facility] CRYOGLOBULIN ILon 02-10-2017 CRYOGLOBULIN 0 mg/dL Normal 0-10 [facility] IL Normal [facility] CYCLIC CITRULLINATED PEPTIDE [place] [id number] 02-10-2017 CYCLIC CIT PEP 6 Units Normal 0-19 [facility] Comment on above: Result Comment: [...] results should bemonitored and testing repeated.Performed by [employer],[address] [place] [id number] swg[employer], Onel Connelly MD - Lab. Director HEPATITIS B CORE ANTIBODYon 02-10-2017 HEP B CORE AB NONREACTIVE Normal NONREACTIVE [facility] Comment on above: Performed By: #### 3 0367, 99309, [id number], 51224 ####[facility] [place] [address], [facility] HEPATITIS B SURFACE ANTIBODY QUANTon 02-10-2017 HEP B SURF AB 0.00 mIU/ml Normal [facility] Comment on above: Result Comment: INTE RPRETATION:NONREACTIVE<8.00 mIU/mLINDETERMINATE8.00 - 12.00 mIU/mLREACTIVE>12 mIU/mL Performed By: #### 1 0008 ####[facility] [facility].[address] HEPATITIS B SURFACE ANTIGEN QUALon 02-10-2017 HEP B SURF AG QUAL NONREACTIVE Normal NONREACTIVE [facility] Comment on above: Performed By: #### 1 0008 ####[facility].[address] HEPATITIS C ANTIBODYon 02-10 ANTI-HCV NONREACTIVE Normal NONREACTIVE [facility] Comment on above: Performed By: #### 3 1397, 57534, 45040, 90982 ####[place] [address] [facility].[address] RHEUMATOID FACTOR SERUMon RA <20 Normal 0-20 [facility] Comment on above: Performed By: #### 1 0204, 19637, 25758 ####[facility].[address] SJOGRENS ANTIBODIESon 2016 SS-A Negative Normal NEG,NEGATIVE,N eg [facility] Comment on above: Performed By: #### 1 0008 ####[place] [address] [facility].[address] SS-B Negative Normal NEG,NEGATIVE,N eg [facility] Comment on above: Performed By: #### 1 0008 ####[facility] [place] [address], [facility] T PROT UR Adam 02-10-2017 Protein mass conc 29.0 mg/dL Normal [facility] Comment on above: Result Comment: Ther e are no established reference values for random urine specimens Performed By: #### 4 6782, 56690 ####[facility].[address] TB QUANTIFERONon 02-10-2017 MITOGEN MINUS NIL >=10 Normal [facility] Comment on above: Performed By: #### 4 1802, 04301 ####[facility].[address] NIL 0.03 IU/mL Normal [facility] Comment on above: Performed By: #### 4 1802, 20502 ####[facility].[address] TB AG MINUS NIL 0.01 IU/mL Normal [facility] Comment on above: Performed By: #### 4 1802, 49685 ####[facility].[address] TB ANTIGEN 0.04 IU/mL Normal [facility] Comment on above: Performed By: #### 4 1802, 42925 ####[facility].[address] TB QUANTIFERON Negative Normal NEGATIVE [facility] Comment on above: Result Comment: [...] and LTBI(http://www.cdc.gov/nchstp/tb/). Performed By: #### 4 1802, 49971 ####[facility].[address] URINALYSISon 02-10-2017 APPEARANCE CLOUDY Abnormal CLEAR [facility] Comment on above: Performed By: #### 1 0008 ####[facility] [place] [address], [facility] BACTERIA MOD Abnormal NONE SEEN [facility] Comment on above: Performed By: #### 1 0008 ####[facility] [place] [address], [facility] BILIRUBIN Negative Normal NEGATIVE [facility] Comment on above: Performed By: #### 1 0008 ####[facility] [place] [address], [facility] BLOOD Negative Normal NEGATIVE [facility] Comment on above: Performed By: #### 1 0008 ####[facility] [place] [address], [facility] COLOR YELLOW Normal YELLOW [facility] Comment on above: Performed By: #### 1 0008 ####[facility] [place] [address], [facility] EPIS MANY Abnormal FEW [facility] Comment on above: Performed By: #### 1 0008 ####[facility] [place] [address], [facility] GLUCOSE Negative Normal NEGATIVE [facility] Comment on above: Performed By: #### 1 0008 ####[facility] [place] [address], [facility] INR Coag RelTime (Bld) 0-2 Abnormal 0-0 [facility] Comment on above: Performed By: #### 1 0008 ####[facility] [place] [address], [facility] KETONE Negative Normal NEGATIVE [facility] Comment on above: Performed By: #### 1 0008 ####[facility] LEUK DIMPLE LARGE Abnormal NEGATIVE [facility] Comment on above: Performed By: #### 1 0008 ####[facility].[address] MUCUS THREADS OCC Abnormal NONE SEEN [facility] Comment on above: Performed By: #### 1 0008 ####[facility].[address] NITRITE Negative Normal NEGATIVE [facility] Comment on above: Performed By: #### 1 0008 ####[facility].[address] PH 5.0 Normal 5.0-8.0 [facility] Comment on above: Performed By: #### 1 0008 ####[facility].[address] Protein mass conc Negative Normal NEGATIVE [facility] Comment on above: Performed By: #### 1 0008 ####[facility].[address] SPEC GRAV 1.020 Normal 1.015-1.020 [facility] Comment on above: Performed By: #### 1 0008 ####[facility].[address] WBC UA >100 Abnormal 0-0 [facility] Comment on above: Performed By: #### 1 0008 ####[facility].[address] CYTOLOGY SPECIMENon 02-02-20 CYTOLOGY SPEC Normal [facility] Comment on above: Order Comment: Comme nt: A. PERIESOPHAGEAL LESION FNA - CYTOLYT, 10 SLIDES Result Comment: Note : Specimens received on or after December:* Pathology and Cytology reports are located in [facility] in the folder labeled Medical Record Forms.* Reports are also in the Physician Portal.* Reports will be faxed to phycician's office.* For assistance locating reports call: * Willard Guadarrama [phone] * LAB [phone] Performed By: #### L UHCYTO ####[place] [address] [address] Albumin [Mass/volume] in Ser um or Plasmaon 01-03-2017 Albumin [Mass/Vol] 3.3 g/dL 3.2-5.5 [facility] Basophils Auto (Bld) [#/Vol] on 01-03-2017 Basophils (Bld) [#/Vol] 0.0 10*3/uL 0.0-0.2 [facility] Basophils/100 WBC Auto (Bld) on 01-03-2017 Basophils/100 WBC (Bld) 0.6 % . [facility] Creatinine and Glomerular fi ltration rate.predicted panel (S/P/Bld)on 01-03-2017 Creatinine [Mass/Vol] 1.00 mg/dL 0.44-1.03 [facility] Eosinophils Auto (Bld) [#/Vo l]on 01-03-2017 Eosinophils (Bld) [#/Vol] 0.1 10*3/uL 0.0-0.45 [facility] Eosinophils/100 WBC Auto (Bl d)on 01-03-2017 Eosinophils/100 WBC (Bld) 1.5 % . [facility] Erythrocyte distribution wid th Auto (RBC) [Ratio]on 01-03-2017 Erythrocyte distribution width (RBC) [Ratio] 14.5 % 11.9-15.3 [facility] Estimated glomerular filtrat ion rate (GFR) non- Americanon 01-03-2017 GFR/1.73 sq M.predicted among non-blacks MDRD (S/P/Bld) [Vol rate/Area] 56 mL/min/{1.73_m2} [facility] Globulin Calc (S) [Mass/Vol] on 01-03-2017 Globulin (S) [Mass/Vol] 3.6 g/dL [facility] Hematocrit Auto (Bld) [Volum e fraction]on 01-03-2017 Hematocrit (Bld) [Volume fraction] 36.3 % 34.0-46.4 [facility] Hemoglobin [Mass/volume] in Bloodon 01-03-2017 Hemoglobin (Bld) [Mass/Vol] 12.1 g/dL 11.8-15.4 [facility] Laboratory - Chemistry and C hemistry - challengeon 01-03-2017 GFR/1.73 sq M.predicted among blacks MDRD (S/P/Bld) [Vol rate/Area] mL/min/{1.73_m2} [facility] Comment on above: GFR estimated refere nce range: According to KDOQI guidelines, <60 ml/min/1.73m2 is sufficient to diagnose a patient with chronic kidney disease. Lymphocytes Auto (Bld) [#/Vo l]on 01-03-2017 Lymphocytes (Bld) [#/Vol] 2.1 10*3/uL 1.00-4.8 [facility] Lymphocytes/100 WBC Auto (Bl d)on 01-03-2017 Lymphocytes/100 WBC (Bld) 27.4 % . [facility] MCH Auto (RBC) [Entitic mass ]on 01-03-2017 MCH (RBC) [Entitic mass] 30.8 pg 24.7-34.3 [facility] MCHC Auto (RBC) [Mass/Vol]on 01-03-2017 MCHC (RBC) [Mass/Vol] 33.4 g/dL 32.0-35.0 [facility] MCV Auto (RBC) [Entitic vol] on 01-03-2017 MCV (RBC) [Entitic vol] 92.4 fL 80-100 [facility] Monocytes Auto (Bld) [#/Vol] on 01-03-2017 Monocytes (Bld) [#/Vol] 1.0 10*3/uL High 0.0-0.8 [facility] Monocytes/100 WBC Auto (Bld) on 01-03-2017 Monocytes/100 WBC (Bld) 12.7 % . [facility] Neutrophils Auto (Bld) [#/Vo l]on 01-03-2017 Neutrophils (Bld) [#/Vol] 4.4 10*3/uL 1.8-7.7 [facility] Neutrophils/100 WBC Auto (Bl d)on 01-03-2017 Neutrophils/100 WBC (Bld) 57.8 % . [facility] No Panel Informationon 01-03 Pharmacy Creatinine Clearance (Chem N/A [facility] Platelet mean volume Auto (B ld) [Entitic vol]on 01-03-2017 Platelet mean volume (Bld) [Entitic vol] 8.2 fL 6.3-10.7 [facility] Platelets Auto (Bld) [#/Vol] on 01-03-2017 Platelets (Bld) [#/Vol] 429 10*3/uL 150-450 [facility] Protein [Mass/volume] in Ser um or Plasmaon 01-03-2017 Protein [Mass/Vol] 6.9 g/dL 6.1-7.9 [facility] RBC Auto (Bld) [#/Vol]on RBC (Bld) [#/Vol] 3.93 10*6/uL 3.60-5.00 [facility] Serum or plasma alanine briggs otransferase measurement without P-5'-P (enzymatic activion 01-03-2017 ALT No additional P-5'-P [Catalytic activity/Vol] 37 U/L 10-60 [facility] Serum or plasma albumin/glob ulin mass ratioon 01-03-2017 Albumin/Globulin [Mass ratio] 0.9 {ratio} [facility] Serum or plasma alkaline bita sphatase measurement (enzymatic activity/volume)on 01-03-2017 ALP [Catalytic activity/Vol] 89 U/L 32-92 [facility] Serum or plasma aspartate am inotransferase measurement (enzymatic activity/volume)on 01-03-2017 AST [Catalytic activity/Vol] 30 U/L 10-42 [facility] Serum or plasma calcium katheryn urement (mass/volume)on 01-03-2017 Calcium [Mass/Vol] 9.4 mg/dL 8.2-10.2 [facility] Serum or plasma chloride claudia surement (moles/volume)on 01-03-2017 Chloride [Moles/Vol] 98 mmol/L 95-114 [facility] Serum or plasma glucose katheryn urement (mass/volume)on 01-03-2017 Glucose [Mass/Vol] 107 mg/dL High 70-100 [facility] Comment on above: ADA recommended refe rence rangeRandom Glucose Reference Range is dependent on time and content of last meal. Glucose of more than 200 mg/dL in a nonstressed, ambulatory subject supports the diagnosis of Diabetes Mellitus. Serum or plasma potassium me asurement (moles/volume)on 01-03-2017 Potassium [Moles/Vol] 4.1 mmol/L 3.5-5.1 [facility] Serum or plasma sodium measu rement (moles/volume)on 01-03-2017 Sodium [Moles/Vol] 139 mmol/L 136-146 [facility] Serum or plasma total biliru bin measurement (mass/volume)on 01-03-2017 Bilirubin [Mass/Vol] 0.3 mg/dL 0.3-1.2 [facility] Serum or plasma total carbon dioxide measurement (moles/volume)on 01-03-2017 CO2 [Moles/Vol] 29.5 mmol/L 22.0-30.0 [facility] Serum or plasma urea nitroge n measurement (mass/volume)on 01-03-2017 Urea nitrogen [Mass/Vol] 12 mg/dL 9-23 [facility] WBC Auto (Bld) [#/Vol]on WBC (Bld) [#/Vol] 7.6 10*3/uL 3.8-11.6 [facility] No Panel Information [facility] Vital Signs Date Time Vital Sign Value Performing Clinician Faci lity 01-30-2024 10:17040 Body height 167.64 cm MD Christian Steiner Work Phone: [facility] 01-30-2024 10:17-0400 Body mass index (BMI) [Ratio] 26.3 kg/m2 MD Christian Steiner Work Phone: [facility] 01-30-2024 10:17-040 Body temperature 97.3 [degF] MD Christian Steiner Work Phone: [facility] 01-30-2024 10:17-040 Body weight 73.93 kg MD Christian Steiner Work Phone: [facility] 01-30-2024 10:17-0400 Heart rate 86 /min MD Christian Steiner Work Phone: [facility] 01-30-2024 10:17-0400 Respiratory rate 16 /min MD Christian Steiner Work Phone: [facility] 01-30-2024 10:17-0400 SaO2% (BldA) [Mass fraction] 96 % MD Christian Steiner Work Phone: [facility] 07-14-2023 11:29-0400 Body height 157.5 cm Lynsey Saldana MD Work Phone: [facility] 07-14-2023 11:29-0400 Body mass index (BMI) [Ratio] 30 kg/m2 Lynsey Saldana MD Work Phone: [facility] 07-14-2023 11:29-0400 Body weight 74.39 kg Lynsey Saldana MD Work Phone: [facility] 07-14-2023 11:29-0400 Diastolic blood pressure 84 mm[Hg] Lynsey Saldana MD Work Phone: [facility] 07-14-2023 11:29-0400 Heart rate 79 /min Lynsey Saldana MD Work Phone: [facility] 07-14-2023 11:29-0400 Systolic blood pressure 134 mm[Hg] Lynsey Saldana MD Work Phone: [facility] 01-21-2023 09:58-0400 Body temperature 97.2 [degF] MD Christian Steiner Work Phone: [facility] 01-21-2023 09:58-0400 Body weight 76.65 kg MD Christian Steiner Work Phone: [facility] 01-21-2023 09:58-0400 Diastolic blood pressure 78 mm[Hg] MD Christian Steiner Work Phone: [facility] 01-21-2023 09:58-0400 Heart rate 71 /min MD Christian Steiner Work Phone: [facility] 01-21-2023 09:58-0400 Respiratory rate 16 /min MD Christian Steiner Work Phone: [facility] 01-21-2023 09:58-0400 SaO2% (BldA) [Mass fraction] 98 % MD Christian Steiner Work Phone: [facility] 01-21-2023 09:58-0400 Systolic blood pressure 141 mm[Hg] MD Christian Steiner Work Phone: [facility] 01-21-2022 10:03-0400 Body height 167.64 cm MD Christian Steiner [facility] 01-21-2022 10:03-0400 Body weight 82.64 kg [facility] 01-21-2022 10:03-0400 Diastolic blood pressure 78 mm[Hg] MD Christian Steiner [facility] 01-21-2022 10:03-0400 Heart rate 98 /min MD Christian Steiner [facility] 01-21-2022 10:03-0400 Respiratory rate 18 /min MD Christian Steiner [facility] 01-21-2022 10:03-0400 SaO2% (BldA) [Mass fraction] 98 % MD Christian Steiner [facility] 01-21-2022 10:03-0400 Systolic blood pressure 122 mm[Hg] MD Christian Steiner [facility] 01-21-2021 10:29-0400 Body temperature 98 [degF] MD Christian Steiner [facility] Encounters Encounter Date Encounter Type Care Provider Facility Start: 05-14-2024 End: 05-14-2024 ambulatory Lizzie Torre MD Facility:[facility] Start: 04-18-2024 End: 04-18-2024 ambulatory CK GONZALEZ Facility:[facility] Start: 04-18-2024 End: 04-18-2024 Patient encounter procedure [...] Registered Recurring MD Tigre Steiner [facility] Work Phone: Start: 01-30-2024 End: 01-30-2024 ambulatory MD Christian Steiner Work Phone: [facility] Work Phone: Start: 01-30-2024 End: 01-30-2024 Patient encounter procedure MD Christian Steiner [facility] Work Phone: Start: 12-19-2023 End: [...] ALESHA SCHULTE Facility:[facility] Start: 10-17-2023 End: 10-17-2023 Patient encounter procedure Alesha Schulte MD Work Phone: Ophthalmology Comment on above: Primary open-angle g laucoma, bilateral, mild stage (Primary Dx) Start: 09-05-2023 End: 09-05-2023 ambulatory ALESHA SCHULTE Facility:[facility] Start: 09-05-2023 End: 09-05-2023 Patient encounter procedure Alesha Schulte MD Work Phone: Ophthalmology Comment on above: Primary open-angle g laucoma, bilateral, mild stage (Primary Dx) Start: 08-24-2023 End: 08-24-2023 ambulatory SARAHI PIERSON Not Available Start: 07-27-2023 End: 07-27-2023 ambulatory ALESHA SCHULTE Facility:[facility] Start: 07-27-2023 End: 07-27-2023 Patient encounter procedure Alesha Schulte MD Work Phone: Ophthalmology Comment on above: Primary open-angle g laucoma, bilateral, mild stage (Primary Dx) Start: 07-14-2023 End: 07-14-2023 ambulatory [facility] Start: 07-14-2023 End: 07-14-2023 Office outpatient visit 15 minutes Lynsey Saldana MD Work Phone: [facility] Comment on above: Lymphedema (Primary Dx) Start: 05-18-2023 Chart abstracting Jr. Todd Boudreaux DO Work Phone: [facility] Start: 05-18-2023 End: 05-18-2023 ambulatory TODD ANDREW Not Available Start: 01-21-2023 End: 01-21-2023 ambulatory MD Christian Steiner Work Phone: [facility] Work Phone: Start: 01-21-2023 End: 01-21-2023 Registered Recurring MD Christian Steiner Work Phone: [facility] Work Phone: Start: 01-17-2023 End: [...] 01-21-2022 End: 01-21-2022 ambulatory MD Christian Steiner [facility] Work Phone: Start: 01-21-2022 End: 01-21-2022 Registered Recurring MD Christian Steiner [facility] Start: 01-03-2022 End: 02-01-2022 [...] 09-28-2017 End: 09-29-2017 Patient encounter EMELY DOMENICO Facility:[facility] Start: 08-18-2017 Patient encounter procedure Christian Steiner Facility:[id number] Start: 03-31-2017 End: 04-01-2017 Patient encounter EMELY DOMENICO Facility:[facility] Start: 02-10-2017 End: 02-11-2017 Patient encounter EMELY DOMENICO Facility:[facility] Start: 01-28-2017 Ambulatory Pal Deshawn Facility:[facility] Procedures Date Procedure Procedure Detail Performing Clinician [...] Office Visit [facility] [address] [place] [address] Jr. Todd Boudreaux, DO [address] [place] [address] [facility] Start: 01-22-2025 Screening for malign ant neoplasm of breast Mammogram Screening [facility] Start: 10-22-2024 End: 10-22-2024 Patient encounter procedure 10/22/2024 10:45 AM EDT Office Visit [facility] [address] [place] [address] Alesha Schulte MD [address] [place] [address] RTC: 6 Months Full OCT ON/GCA + HVF 24-2 [facility] Comment on above: RTC: [address] ON/GCA + HVF 24-2 [facility] Start: 07-13-2024 Adult BMI Screening Adult BMI Screen ing [facility] Start: 07-13-2024 Tobacco Screening Tobacco Screening [facility] Start: 07-12-2024 End: 07-12-2024 Patient encounter procedure 07/12/2024 8:30 AM EDT Office Visit [facility] [address] [place] [address] Lynsey Saldana MD [address], [facility] [address] [place] [address] [facility] Start: 04-18-2024 End: 04-18-2024 Patient encounter procedure 04/18/2024 10:30 AM EST Office Visit [facility] [address] [place] [address] Ck Gonzalez, OD [address] [place] [address] Return in about 6 months (around 04/18/2024) for VATA with TH. Ophthalmology Comment on above: Return in about 6 mo nths (around 04/18/2024) for VATA with TH. Start: 04-09-2024 End: 04-09-2024 Patient encounter procedure 04/09/2024 2:30 PM EST Office Visit [facility] [address] [place] [address] Dino George, PA [address] [place] [address] Acute pain of right shoulder (Primary Dx) [facility] Comment on above: Acute pain of right shoulder (Primary Dx) Start: 04-04-2024 Advance Directive Discussion Advance Directive Discussion [facility] Start: 01-21-2024 Screening for malign ant neoplasm of breast Mammogram Screening [facility] Start: 01-16-2024 End: 01-16-2024 Patient encounter procedure 01/16/2024 10:15 AM EDT Office Visit [facility] [address] [place] [address] Dino George, PA [address] [facility] [address] [place] [address] [facility] Start: 12-19-2023 End: 12-19-2023 Patient encounter procedure 12/19/2023 10:15 AM EDT Office Visit [facility] [address] [place] [address] Dino George PA [address] [facility] [address] [place] [address] Acute pain of right knee (Primary Dx); History of total knee replacement, right [facility] Comment on above: Acute pain of right knee (Primary Dx); History of total knee replacement, right Start: 12-04-2023 Covid-19 Vaccine ( season) Covid-19 Vaccine ( season) [facility] Start: 12-04-2023 Influenza vaccination [facility] Start: 10-17-2023 End: 10-17-2023 Patient encounter procedure 10/17/2023 1:15 PM EDT Office Visit [facility] [address] [place] [address] Alesha Schulte MD [address] [address] Return for VATA. Ophthalmology Comment on above: Return for VATA. Start: 09-05-2023 End: 06-03-2024 Patient encounter procedure 09/05/2023 9:45 AM EDT Office Visit [facility] [address] [place] [address] Alesha Schulte MD [address] [address] Return for slt od on a amonday next available Ophthalmology Comment on above: Return for slt od on a amonday next available Start: 05-18-2023 End: 05-18-2023 Patient encounter procedure 05/18/2023 10:15 AM EST Office Visit [facility] [address] [place] [address] Jr. Todd Boudreaux, DO [address] [address] [address] [facility] Start: 04-04-2023 Advance Directive Discussion Advance Directive Discussion [facility] Start: 04-04-2023 Behavioral Health Screening Behavioral Health Screening [facility] Start: 02-12-2023 Diabetes Screening Diabetes Screenin g [facility] Start: 12-03-2022 Covid-19 Vaccine ( season) Covid-19 Vaccine ( season) [facility] Start: 12-03-2022 Influenza vaccination [facility] Start: 04-04-2022 ADVANCE DIRECTIVE DISCUSSION ADVANCE DIRECTIVE DISCUSSION [facility] Start: 04-04-2022 DEPRESSION ASSESSMENT [facility] Start: 12-03-2021 Influenza vaccination INFLUENZA (#1) [facility] Start: 04-04-2021 ADVANCE DIRECTIVE DISCUSSION ADVANCE DIRECTIVE DISCUSSION [facility] Start: 04-04-2021 DEPRESSION ASSESSMENT [facility] Start: 2017 BONE DENSITY BONE DENSITY [facility] Start: 2017 Bone Density Screening Bone Density Screening [facility] Start: 2017 Fall Risk Screening Fall Risk Screen [facility] Service Management [facility] Start: 2017 PNEUMOCOCCAL: 65+ (1 - PCV) PNEUMOCOCCAL: 65+ (1 - PCV) [facility] Start: 2017 Screening for osteoporosis Bone Density Screening [facility] Start: 11-13-2014 Administration of varicella zoster vaccine Zoster (Shingles) Vaccine (2 of 3) [facility] Start: 11-13-2014 SHINGRIX VACCINE (2 of 3) SHINGRIX VACCINE (2 of 3) [facility] Start: 2012 RSV Vaccine (1 - 1-d ose 60+ series) RSV Vaccine (1 - 1-dose 60+ series) [facility] Start: 2012 RSV Vaccine (1 - Ris k 60-74 years 1-dose series) RSV Vaccine (1 - Risk 60-74 years 1-dose series) [facility] Start: 2002 SHINGRIX VACCINE (1 of 2) SHINGRIX VACCINE (1 of 2) [facility] Start: 1997 COLOGUARD (FIT-DNA) COLOGUARD (FIT-D NA) [facility] Start: 1997 Colonoscopy COLONOSCOPY [facility] Start: 1997 COLORECTAL CANCER SCREENING COLORECTAL CANCER SCREENING [facility] Start: [address] COLONOGRAPHY [facility] Start: 1997 DIABETES SCREEN DIABETES SCREEN [facility] Start: 1997 Diabetes Screening Diabetes Screenin g [facility] Start: 1997 FECAL OCCULT BLOOD FECAL OCCULT BLOO D [facility] Start: 1997 Lipid 1996 panel - S amalia or Plasma Lipid Screening [facility] Start: 1997 Lipid panel Lipid Screening [facility] Start: 1997 LIPID SCREEN LIPID SCREEN [facility] Start: 1997 Screening for malign ant neoplasm of colon [facility] Start: 1997 SIGMOIDOSCOPY SIGMOIDOSCOPY [facility] Start: 1992 Mammography [facility] Start: 1982 Zoledronic acid therapy ALPHA- 1 ANTITRYPSIN DEFICIENCY SCREENING [facility] Start: 1971 DTaP,Tdap and Td Vaccines (1 - Tdap) DTaP,Tdap and Td Vaccines (1 - Tdap) [facility] Start: 1971 Urine microalbumin profile [facility] Start: 1970 Adult BMI Follow Up Plan Adult BMI Follow Up Plan [facility] Start: 1970 ANNUAL PCP TEAM PLUG AND MOLD FINISHER LYLE DISEASE VISIT ANNUAL PCP TEAM CHRONIC DISEASE VISIT [facility] Start: 1970 Anxiety Screening Anxiety Screening [facility] Start: 1970 Depression Screening Depression Scre ening [facility] Start: 1970 HEPATITIS C SCREENING [facility]PATITIS C [facility] Start: 1970 [facility]atitis C [facility] Start: 1970 SPIROMETRY SPIROMETRY [facility] Start: 1964 Depression Screening Depression Scre ening [facility] Start: 1950 COVID-19 VACCINE (#1) COVID-19 VACCI NE (#1) [facility] Start: 1950 Medicare Annual Well ness Visit Medicare Annual Wellness Visit [facility] MG Breast - left Screening [facility] MG Breast - left Screening [facility] MG Breast - left Screening [facility] XR Hip - right 3 Views XR hip ri ght 2 or 3 views Imaging Routine Acute right hip pain 12/19/2023 10:12 AM EDT [facility] Work Phone: [facility] Immunizations Immunization Date Immunization Notes Care Provider Fa cili 01-05-2020 influenza (HD-IIV4) vaccine, age 65+ yr, high dose, quadrivalent, PF (FLUZONE HIGH-DOSE) Alesha Schulte MD Work Phone: [facility] 01-05-2020 influenza virus vacc ine, unspecified formulation Alesha Schulte MD Work Phone: [facility] 01-25-2018 pneumococcal polysaccharide vaccine, 23 valent Alesha Schulte MD Work Phone: [facility] 10-20-2017 pneumococcal conjuga te vaccine, 13 valent Alesha Schulte MD Work Phone: [facility] 09-17-2015 pneumococcal polysaccharide vaccine, 23 valent Alesha Schulte MD Work Phone: [facility] 06-09-2015 influenza, injectabl e, quadrivalent, preservative free Alesha Schulte MD Work Phone: [facility] 09-18-2014 zoster vaccine, live Raji Schulte MD Work Phone: [facility] 09-18-2014 zoster vaccine, unspecified formulation [facility] Saldana [facility] 01-30-2009 novel influenza-H1N1 -09, preservative-free, injectable Alesah Schulte MD Work Phone: [facility] Payers Date Payer Category Payer Private Health Insurance [employer] [id number] 2018 Unknown [id number] 2017 Medicare [id number]. [id number] 2016 Self-pay [id number] 1959 Medicare [id number] 1959 Unknown [id number] 1952 Unknown [id number] 2.16.840.1.739299.3.579.2. 356 1952 Unknown [id number] 2.16.840.1.457337.3.579.2. 356 1952 Unknown [id number] 2.16.840.1.959241.3.579.2. 356 1952 Unknown [id number] 2.16.840.1.617448.3.579.2. 593 1952 Unknown [id number] 2.16.840.1.197525.3.579.2. 593 1952 Unknown [id number] 2.16.840.1.379096.3.579.2. 593 1952 Unknown [id number] 2.16.840.1.508459.3.579.2. 593 1952 Unknown [id number] 2.16.840.1.903600.3.579.2. 593 1952 Unknown [id number] 2.16.840.1.231814.3.579.2. 593 1952 Unknown [id number] 2.16.840.1.645247.3.579.2. 593 1952 Unknown [id number] 2.16.840.1.268652.3.579.2. 593 1952 Unknown [id number] 2.16.840.1.202425.3.579.2. 593 1952 Unknown [id number] 2.16.840.1.859582.3.579.2. 593 1952 Unknown [id number] 2.16.840.1.048591.3.579.2. 593 1952 Unknown [id number] 2.16.840.1.439778.3.579.2. 593 1952 Unknown [id number] 2.16.840.1.070994.3.579.2. 593 1952 Unknown [id number] 2.16.840.1.106549.3.579.2. 593 1952 Unknown [id number] 2.16.840.1.656981.3.579.2. 1286 1952 Unknown [id number] 2.16.840.1.009866.3.579.2. 1259 1952 Unknown [id number] 2.16.840.1.119831.3.579.2. 1259 1952 Unknown [id number] 2.16.840.1.069091.3.579.2. 9 1952 Unknown [id number] 2.16.840.1.735201.3.579.2. 9 1952 Unknown [id number] 2.16.840.1.837086.3.579.2. 9 1952 Unknown [id number] 2.16.840.1.705318.3.579.2. 9 1952 Unknown [id number] 2.16.840.1.813594.3.579.2. 196 Unknown [id number] Unknown [id number] 2.16.840.1.171446.3.579.2. 531 Social History Date Type Detail Facility Start: 01-21-2021 End: 03-25-2022 Tobacco smoking status MAIS Never smoked tobacco (finding) [facility] Start: 1950 Sex Assigned At Female [facility] Start: 02-27-2019 End: 03-25-2022 Tobacco use and exposure Smokeless tobacco non-user [facility] Start: 09-18-2019 End: 04-18-2024 Alcohol intake Current drinker of alcohol (finding) [facility] Start: 09-18-2019 History SDOH Alcohol Frequency 2 [facility] Start: 09-18-2019 History SDOH Alcohol Std Drinks 1 [facility] Start: 02-27-2019 Alcohol Comment a glass of wine once every 2-3 months [facility] Start: 1950 Sex Assigned At Not on file [facility] Start: 02-27-2019 End: 05-15-2020 History of Social function [facility] Start: 02-27-2019 End: 05-15-2020 Alcohol Use Disorder Identification Test - Consumption [AUDIT-C] [facility] Frequency of Alcohol Consumption Monthly or less [facility] Start: 09-25-2022 End: 04-09-2024 Alcohol intake Lifetime non-drinker (finding) [facility] Start: 09-25-2022 Alcohol Comment caffeine intake: 2-3 cups per day [facility] Start: 09-14-2022 Gender identity Identifies as female gender (finding) [facility] Start: 09-14-2022 Sexual orientation Heterosexual (finding) [facility] Start: 07-14-2023 Alcoholic beverage intake Ex-drinker (finding) [facility] Start: 01-17-2020 Alcohol Comment very rare [facility] Medical Equipment Procedure Code Equipment Code Equipment Origin al Text Equipment Identifier Dates Lens Acrysof Iq Toric 6mm +24.5 Diopter +6 Cylinder 0 D Biconvex Acrylic 13 - [id number] Start: 03-14-2019 Comment on above: Description: -0.57 Lens Acrysof Iq Toric Stableforce 6mm 0 D +22.5 Diopter +2.25 Cylinder - [id number] Start: 03-21-2019 Comment on above: Description: -0.80 Istent Inject - [id number] Start: 03-14-2019 Istent Inject - [id number] Start: 03-21-2019 Cmnt Bn Bio 40gm Rpl [id number] - Sna - [id number] Start: 02-12-2020 Ins Artc 3-5 E-F 11mm Kn Rt Ps - Sna - [id number]/ SNA, [id number] FDA Start: 02-12-2020 Cmpt Fem 5 Kn Rt Persona Strl - Sna - [id number] Start: 02-12-2020 Cmpt Ptlr 32mm Persona Alply - Sna - [id number] Start: 02-12-2020 Bsplt Tib 5d E K n Rt Stm - Sna - [id number] Start: 02-12-2020 Clinical Notes 01-04-2017 to 04-18-2024 Ck Gonzalez, OD - 04/18/2024 11:06 AM BETO Grissom - 04/09/2024 2:30 PM BETO Grissom - 12/19/2023 10:15 AM Alesha Benítez MD - 10/17/2023 1:32 PM EDT Note Date & Type Note Facility 04-18-2024 Note HNO ID: [id number] Author: CK GONZALEZ, OD Service: ? Author Type: JAVASCRIPT ENGINEER Type: Progress Notes Filed: 04/18/2024 11:22 Note [...] Gonzalez, OD April 18, 2024 11:21 AM [facility] 04-18-2024 History of Present illness Narrative [...] 2024 11:21 AM documented in this encounter [facility] 04-09-2024 History of Present illness Narrative [...] Use: Not At Risk (02/27/2019) Received from [facility], [facility] AUDIT-C Frequency of Alcohol Consumption: Monthly [...] requiring urgent evaluation. documented in this encounter [facility] 12-19-2023 History of Present illness [...] Use: Not At Risk (02/27/2019) Received from [facility], [facility]C Frequency of Alcohol Consumption: Monthly [...] requiring urgent evaluation. documented in this encounter [facility] 10-17-2023 Note HNO ID: [id number] Author: ALESHA SCHULTE MD Service: ? Author [...] components. Alesha Schulte MD October 17, 2023 [facility] 10-17-2023 History of Present illness Narrative [...] October 17, 2023 documented in this encounter [facility] 09-05-2023 Note Date of Procedure 09/05/2023 Wagoner Protocol Safety Checklist Sign In: A moment [...] Post-procedure follow up management communicated. No specimens. [facility] 09-05-2023 Note HNO ID: [id number] Author: ALESHA SCHULTE MD Service: ? Author [...] components. Alesha Schulte MD September 05, 2023 [facility] 09-05-2023 History of Present illness Narrative [...] September 05, 2023 documented in this encounter [facility] 07-27-2023 Note Date of Procedure 07/27/2023. Vineyard Tender Information Pawn Broker: pd. Reliability Right Eye Good. Left Eye Good. Interpretation Right Eye Normal. Left Eye Normal. [facility] 07-27-2023 Note Date of Procedure 07/27/2023. Vineyard Tender Information Pawn Broker: ELIZABETH. Quality Right Eye Good. Left Eye Good. NFL Interpretation Right Eye Superior loss. Left Eye Normal. [facility] 07-27-2023 Note HNO ID: [id number] Author: ALESHA SCHULTE MD Service: ? Author [...] agree with all of its relevant components. [facility] 07-27-2023 History of Present illness Narrative [...] its relevant components. documented in this encounter [facility] 07-14-2023 Evaluation + Plan note Associated Problem(s): Lymphedema Compression therapy leg elevation and follow up in the clinic in 1 year. [facility] 07-14-2023 Miscellaneous Notes Associated Problem(s): Lymphedema Compression therapy leg elevation and follow up in the clinic in 1 year. documented in this encounter [facility] 07-14-2023 History of Present illness Narrative [...] 1 tablet by mouth in the morning. jtjyzelsuf-zhjuxykavlyqx-yzzt (FIORICET, ESGIC) 50-325-40 mg per tablet Take [...] the evening. 5 mg M-W-F, 7.5 mg Upl-Rrrx-Isuar-Sat . anastrozole (ARIMIDEX) 1 mg chemo tablet [...] hematuria Asthma COPD (chronic obstructive pulmonary disease) ([facility]) Headache Hyperlipidemia Osteoarthritis right knee Pulmonary embolism ([facility]) Thrush top partial Vasculitis ([facility]) Visual impairment readers Past Surgical History: Past [...] Performed by Todd Boudreaux Jr., DO at [facility] Social and Family History: Social History [...] for your understanding. documented in this encounter [facility] 01-17-2023 History of Present illness Narrative [...] its relevant components. documented in this encounter [facility] 07-05-2022 History of Present illness Narrative [...] its relevant components. documented in this encounter [facility] 03-19-2022 Note PROCEDURE: XR WRIST RT MIN 3 V HISTORY: Unspecified fall ; acute right wrist pain after falling COMPARISON: None. FINDINGS: BONES:No fracture, acute abnormality, or significant arthropathy. SOFT TISSUES:No visible soft tissue swelling. EFFUSION:None visible. OTHER: Negative. IMPRESSION: 1. No acute bone abnormality. 2. Multifocal mild degenerative changes. Electronically authenticated by: ADIEL MCCONNELL Date: 2022-03-19 10:26 [facility] 03-11-2022 Miscellaneous Notes *SECOND ATTEMT* Called patient and LVM for her to call back and schedule an appt with for glaucoma suspect. Referral from Dr. Sebastian. Called patient and LVM to schedule an appointment with Dr. Schulte for GLC suspect. documented in this encounter [facility] 01-21-2022 Progress note Note Date/Time January 21, 2022 10:15[facility] [place] [id number] Hem/Onc Follow Up Note - OP Signed Patient: Myla Pollack MR#: [id number] : 1950 Acct:[id number] Age/Sex: 71 / F Type: REG RCR [...] [facility] now [facility] patient wishes to return to oncology). We will arrange her annual follow-ups after her annual mammograms in January of each year. She also requested refill of breast prosthesis and mastectomy bra. No breast exam due to telephone visit. No skin changes or breast tenderness. No recent f/u by contract negotiation specialist in [place]--was reported to have vasculitis 4 years ago--now resolved but still has some mild erythema and swelling of left greater than right leg without pain. Receives Anastrozole due to weak UT expression--no significant myalgias/arthralgias or hot flashes. No [...] pT1c, N0, M0. Tumor was ER negative, UT weak, and HER-2 nonamplified. She underwent right mastectomy at [place] in 02/2015. Completed dose dense AC X4 [...] years of adjuvant therapy. 3. Evaluated by contract negotiation specialist in [place] (does not believe she had vasculitis)--no recent [...] inflammatory. She was referred to pulmonary at [place]. Ground glass opacities resolved on PET/CT 08/2017. [...] of Therapies: 1. Right breast mastectomy at [facility] (Dr. Rodriguez) in 02/2015. 2. Completed [...] nodes positive, pT1c, N0, M0. ER negative, UT weak, and HER-2 nonamplified. (1) Breast cancer, right Qualifiers: Estrogen receptor status: negative Patient sex: female 1. 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 ER negative, UT weak, and HER-2 nonamplified. 2. She underwent mastectomy at [place] in 02/2015. Completed dose dense AC X4 and Taxol X 12 in August 2015. 3. 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 Anastrozole was resumed in 03/2017 4. Saw contract negotiation specialist in [place] for persistent leg pain and swelling (he [...] inflammatory. She was referred to pulmonary at [place]. --Followup PET/CT 08/2017 showed resolution of prior [...] for coordination of care (as documented) and qpun-cb-jhig counseling of patient and/or family. Dictated By: Claire Duran APRN DD/ 1014 Signed By: <Electronically signed by CHIDI Duran> 01/21/22 10[address] [facility] Work Phone: 1(720) 872-246410-20-2021 Progress note Author Kacie Garay [facility] January 21, 2021 8:25pm Note Date/Time January 21, 2021 1 0:34am [facility] [place] [address] Hem/Onc Follow Up Note - OP Signed Patient: Myla Pollack MR#: [id number] : 1950 Acct:[id number] Age/Sex: 70 / F Type: REG RCR [...] of anastrozole, [facility] patient wishes to return to oncology). We will arrange her annual follow-ups after her annual mammograms in January of each year. She also requested refill of breast prosthesis and mastectomy bra. No breast exam due to telephone visit. No skin changes or breast tenderness. No recent f/u by contract negotiation specialist in [place]--was reported to have vasculitis 4 years ago--now resolved but still has some mild erythema and swelling of left greater than right leg without pain. Receives Anastrozole due to weak UT expression--no significant myalgias/arthralgias or hot flashes. No [...] pT1c, N0, M0. Tumor was ER negative, UT weak, and HER-2 nonamplified. She underwent right mastectomy at [place] in 02/2015. Completed dose dense AC X4 [...] years of adjuvant therapy. 3. Evaluated by contract negotiation specialist in [place] (does not believe she had vasculitis)--no recent [...] inflammatory. She was referred to pulmonary at [place]. Ground glass opacities resolved on PET/CT 08/2017. [...] of Therapies: 1. Underwent right mastectomy at [place] in 02/2015. 2. Completed dose dense AC [...] nodes positive, pT1c, N0, M0. ER negative, UT weak, and HER-2 nonamplified. (1) Breast cancer, right Qualifiers: Estrogen receptor status: negative Patient sex: female 1. 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 ER negative, UT weak, and HER-2 nonamplified. 2. She underwent mastectomy at [place] in 02/2015. Completed dose dense AC X4 and Taxol X 12 in August 2015. 3. 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 Anastrozole was resumed in 03/2017 4. Saw contract negotiation specialist in [place] for persistent leg pain and swelling (he [...] inflammatory. She was referred to pulmonary at [place]. --Followup PET/CT 08/2017 showed resolution of prior [...] for coordination of care (as documented) and yjxt-[id number] counseling of patient and/or family. Dictated By: Kacie Garay MD DD/ [id number] Signed By: <Electronically signed by MD Kacie Garay> 01/21/212024 [facility] Work Phone: 1(620) 212-400504-19-2021 Progress note Author Kacie Garay [facility] July 21, 2020 11:38am Note Date/Time July 21, 2020 9:3 9am [facility] [place] [address] Hem/Onc Follow Up Note - OP Signed Patient: Myla Pollack MR#: [id number] : 1950 Acct:[id number] Age/Sex: 70 / F Type: REG RCR [...] or breast tenderness. No recent f/u by contract negotiation specialist in [place]--was reported to have vasculitis 4 years ago--now resolved but still has some mild erythema and swelling of left greater than right leg without pain. Receives Anastrozole due to weak UT expression--no significant myalgias/arthralgias or hot flashes. No [...] pT1c, N0, M0. Tumor was ER negative, UT weak, and HER-2 nonamplified. She underwent right mastectomy at [place] in 02/2015. Completed dose dense AC X4 [...] years of adjuvant therapy. 3. Evaluated by contract negotiation specialist in [place] (does not believe she had vasculitis)--no recent [...] inflammatory. She was referred to pulmonary at [place]. Ground glass opacities resolved on PET/CT 08/2017. [...] of Therapies: 1. Underwent right mastectomy at [place] in 02/2015. 2. Completed dose dense AC [...] nodes positive, pT1c, N0, M0. ER negative, UT weak, and HER-2 nonamplified. (1) Breast cancer, right Qualifiers: Estrogen receptor status: negative Patient sex: female 1. 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 ER negative, UT weak, and HER-2 nonamplified. 2. She underwent mastectomy at [place] in 02/2015. Completed dose dense AC X4 and Taxol X 12 in August 2015. 3. 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 Anastrozole was resumed in 03/2017 4. Saw contract negotiation specialist in [place] for persistent leg pain and swelling (he [...] inflammatory. She was referred to pulmonary at [place]. --Followup PET/CT 08/2017 showed resolution of prior [...] for coordination of care (as documented) and [id number] counseling of patient and/or family. Dictated By: Kacie Garay MD DD/ 5 Signed By: <Electronically signed by MD Kacie Garay> 07/21/20 1139 [facility] Work Phone: 1(807) 813-809912-09-2020 Progress note Author Kacie Garay [facility] March 12, 2020 2:49pm Note Date/Time March 12, 2020 9 :56am [facility] [place] [address] Hem/Onc Follow Up Note - OP Signed Patient: Myla Pollack MR#: [id number] : 1950 Acct:[id number] Age/Sex: 69 / F Type: REG RCR [...] or breast tenderness. No recent f/u by contract negotiation specialist in [place]--was reported to have vasculitis 4 years ago--now resolved but still has some mild erythema and swelling of left greater than right leg without pain. Receives Anastrozole due to weak UT expression--no significant myalgias/arthralgias or hot flashes. No [...] pT1c, N0, M0. Tumor was ER negative, UT weak, and HER-2 nonamplified. She underwent right mastectomy at [place] in 02/2015. Completed dose dense AC X4 [...] of extended adjuvant therapy. 3. Evaluated by contract negotiation specialist in [place] (does not believe she had vasculitis)--no recent [...] inflammatory. She was referred to pulmonary at [place]. Ground glass opacities resolved on PET/CT 08/2017. [...] of Therapies: 1. Underwent right mastectomy at [place] in 02/2015. 2. Completed dose dense AC [...] lymph nodes positive, pT1c, N0,M0. ER negative, UT weak, and HER-2 nonamplified. 2. She underwent mastectomy at [place] in 02/2015. Completed dose dense AC X4 and Taxol X 12 in August 2015. 3. 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 Anastrozole was resumed in 03/2017 4. Saw contract negotiation specialist in [place] for persistent leg pain and swelling (he [...] inflammatory. She was referred to pulmonary at [place]. --Followup PET/CT 08/2017 showed resolution of prior [...] for coordination of care (as documented) and nruh-dx-waws counseling of patient and/or family. Dictated By: Kacie Garay MD DD/ Signed By: <Electronically signed by MD Kacie Garay> 03/12/20 1445 [facility] Work Phone: [phone]) [phone] Progress note Author Kacie Garay [facility] September 05, 2019 1:07pm Note Date/Time September 05, 2019 10:57 am [facility] [place] [address] Hem/Onc Follow Up Note - OP Signed Patient: Myla Pollack MR#: [id number] : 1950 Acct:[id number] Age/Sex: 69 / F Type: REG RCR [...] or breast tenderness. No recent f/u by contract negotiation specialist in [place]--was reported to have vasculitis 3 years ago--now resolved but still has some mild erythema and swelling of left greater than right leg without pain. Receives Anastrozole due to weak UT expression--no significant myalgias/arthralgias or hot flashes. No [...] pT1c, N0, M0. Tumor was ER negative, UT weak, and HER-2 nonamplified. She underwent right mastectomy at [place] in 02/2015. Completed dose dense AC X4 and Taxol X 12 in August 2015. 2. Anastrozole with calcium and vitamin D started in August 2015. Calcium and vitamin D discontinued 07/2016 Anastrozole stopped in 01/2017 when she developed vasculitis (erythematous rash over legs) although no proven association at this time. Anastrozole was resumed in 03/2017 3. Evaluated by contract negotiation specialist in [place] (does not believe she had vasculitis)--no recent [...] inflammatory. She was referred to pulmonary at [place]. Ground glass opacities resolved on PET/CT 08/2017. [...] of Therapies: 1. Underwent right mastectomy at [place] in 02/2015. 2. Completed dose dense AC [...] nodes positive, pT1c, N0, M0. ER negative, UT weak, and HER-2 nonamplified. 2. She underwent mastectomy at [place] in 02/2015. Completed dose dense AC X4 and Taxol X 12 in August 2015. 3. 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 Anastrozole was resumed in 03/2017 4. Saw contract negotiation specialist in [place] for persistent leg pain and swelling (he [...] inflammatory. She was referred to pulmonary at [place]. --Followup PET/CT 08/2017 showed resolution of prior [...] vasculitis but per second opinion from a contract negotiation specialist and security specialist in [place] this is not vasculitis. They told her [...] for coordination of care (as documented) and qste-we-cvoy counseling of patient and/or family. Dictated By: Kacie Garay MD DD/ 1051 Signed By: <Electronically signed by MD Kacie Garay> 09/05/19 8934 [facility] Work Phone: [phone] History of Past illness Narrative* Problem Noted Date Resolved Date Combined forms of age-related cataract of both e yes 02/22/2019 03/21/2019 documented as of this encounter (statuses as of 03/11/2022) [facility]11-21-2019 History of Past illness Narrative* Problem Noted Date Resolved Date Combined forms of age-related cataract of both e yes 02/22/2019 03/21/2019 documented as of this encounter (statuses as of 07/05/2022) [facility]11-21-2019 History of Past illness Narrative* Problem Noted Date Diagnosed Date Resolved Date Combined forms of age-relate d cataract of both eyes 02/22/2019 03/21/2019 documented as of this encounter (statuses as of 01/17/2023) [facility]10-21-2019 Progress note Author Kacie Garay [facility] January 22, 2019 9:28pm Note Date/Time January 22, 2019 1 0:40[facility] [place] [id number] Hem/Onc Follow Up Note - OP Signed Patient: Myla Pollack MR#: [id number] : 1950 Acct:[id number] Age/Sex: 68 / F Type: REG RCR [...] or breast tenderness. No recent f/u by contract negotiation specialist [facility]--was reported to have vasculitis 2 1/2 years ago--now resolved. Receives Anastrozole due to weak UT expression--no significant myalgias/arthralgias or hot flashes. No bowel or bladder complaints. No interval changes in medical history. We reviewed DEXA scan showing normal bone density 07/17/2018. DIAGNOSIS: 1. 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 Tumor was ER negative, UT weak, and HER-2 nonamplified. She underwent right mastectomy at [place] in 02/2015. Completed dose dense AC X4 and Taxol X 12 in August 2015. 2. Anastrozole with calcium and vitamin D started in August 2015. Calcium and vitamin D discontinued 07/2016 Anastrozole stopped in 01/2017 when she developed vasculitis (erythematous rash over legs) although no proven association at this time. Anastrozole was resumed in 03/2017 3. Evaluated by contract negotiation specialist in [place] (does not believe she had vasculitis)--no recent [...] inflammatory. She was referred to pulmonary at [place]. Ground glass opacities resolved on PET/CT 08/2017. [...] of Therapies: 1. Underwent right mastectomy at [place] in 02/2015. 2. Completed dose dense AC [...] nodes positive, pT1c, N0, M0. ER negative, UT weak, and HER-2 nonamplified. 2. She underwent mastectomy at [place] in 02/2015. Completed dose dense AC X4 and Taxol X 12 in August 2015. 3. 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 Anastrozole was resumed in 03/2017 4. Saw contract negotiation specialist in [place] for persistent leg pain and swelling (he [...] inflammatory. She was referred to pulmonary at [place]. --Followup PET/CT 08/2017 showed resolution of prior [...] vasculitis but per second opinion from a contract negotiation specialist and security specialist in [place] this is not vasculitis. They told her [...] for coordination of care (as documented) and ipwf-om-muhg counseling of patient and/or family. Dictated By: Kacie Garay MD DD/ 1039 Signed By: <Electronically signed by MD Kacie Garay> 01/22/19 2128 [facility] Work Phone: [phone] Progress note Author Kacie Garay [facility] July 19, 2018 8:36pm Note Date/Time July 19, 2018 10: 48am [facility] at [address] [address] Hem/Onc Follow Up Note - OP Signed Patient: Myla Pollack MR#: [id number] : 1950 Acct:[id number] Age/Sex: 68 / F Type: REG RCR [...] pT1c, N0, M0. Tumor was ER negative, UT weak, and HER-2 nonamplified. She underwent right mastectomy at [place] in 02/2015. Completed dose dense AC X4 and Taxol X 12 in August 2015. 2. Anastrazole with calcium and vitamin D started in August 2015, Calcium and vitamin D discontinued 07/2016 Anastrozole stopped in 01/2017 when she developed vasculitis (erythematous rash over legs) although no proven association at this time. Anastrozole was resumed in 03/2017 3. Evaluated by contract negotiation specialist in [place] (does not believe she had vasculitis)--no recent [...] inflammatory. She was referred to pulmonary at [place]. Ground glass opacities resolved on PET/CT 08/2017. [...] or breast tenderness. [place]was reported to have vasculitis 2 years ago--now resolved. Receives Anastrozole due to weak UT expression--no significant myalgias/arthralgias or hot flashes. No bowel or bladder complaints. No interval changes in medical history. We reviewed DEXA scan showing normal bone density 07/17/2018. - Summary of Therapies Summary of Therapies: 1. Underwent right mastectomy at [place] in 02/2015. 2. Completed dose dense AC [...] scan 07/17/2018 reviewed--normal. Annual bilateral mammography at [place] 01/2018--ordered 6 month f/u mammogram prior to next f/u. Assessment and Plan (1) Breast cancer, right Qualifiers: Estrogen receptor status: negative Patient sex: female 1. 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 ER negative, UT weak, and HER-2 nonamplified. 2. She underwent mastectomy at [place] in 02/2015. Completed dose dense AC X4 and Taxol X 12 in August 2015. 3. Anastrazole with calcium and vitamin D started in August 2015, Calcium and vitamin D discontinued 07/2016 Anastrozole stopped in 01/2017 when she developed vasculitis although there is no proven association at this time. Anastrozole was resumed in 03/2017 4. Seeing contract negotiation specialist in [place] for persistent leg pain and swelling (he [...] inflammatory. She was referred to pulmonary at [place]. --Followup PET/CT 08/2017 showed resolution of prior [...] unless new symptoms arise. Annual mammogram at [place] prior to next followup. DEXA normal--f/u in [...] vasculitis but per second opinion from a contract negotiation specialist and security specialist in [place] this is not vasculitis. They told her [...] for coordination of care (as documented) and hkvn-xy-jizv counseling of patient and/or family. Dictated By: Kacie Garay MD DD/ 1048 Signed By: <Electronically signed by MD Kacie Garay> 07/19/183 [facility] Work Phone: [phone] Progress note Author Kacie Garay [facility] January 18, 2018 8:17pm Note Date/Time January 17, 2018 3 :44pm [facility] [place] [address] Hem/Onc Follow Up Note - OP Signed Patient: Myla Pollack MR#: [id number] : 1950 Acct:[id number] Age/Sex: 67 / F Type: REG RCR [...] pT1c, N0, M0. Tumor was ER negative, UT weak, and HER-2 nonamplified. She underwent right mastectomy at [place] in 02/2015. Completed dose dense AC X4 and Taxol X 12 in August 2015. 2. Anastrazole with calcium and vitamin D started in August 2015, Calcium and vitamin D discontinued 07/2016 Anastrazole stopped in 01/2017 when she developed vasculitis although thereis no proven association at this time. Anastrozole was resumed in 03/2017 3. Now follows with rhematologist in [place] (does not believe she had vasculitis). 4. [...] inflammatory. She was referred to pulmonary at [place]. Ground glass opacities resolved on PET/CT 08/2017. 5. A focus of increased uptake in the liver of uncertain significance was also identified. On MRI of the liver there was no abnormality found. HPI: Patient returns to the clinic for transfer of care from Dr. Steiner. No changes on self breast exam. No skin changes or breast tenderness. She is seeing a contract negotiation specialist in [place]--was reported to have vasculitis of legs about a yearago. Receives Anastrozole due to weak UT expression--no significant myalgias/arthralgias or hot flashes. No bowel or bladder complaints. - Summary of Therapies Summary of Therapies: 1. Underwent right mastectomy at [place] in 02/2015. 2. Completed dose dense AC [...] % (Auto) 27.4 % (.) 01/03/17 17:45 Pine % (Auto) 12.7 % (.) 01/03/17 17:45 Eos % (Auto) 1.5 % (.) 01/03/17 17:45 Baso % (Auto) 0.6 % (.) 01/03/17 17:45 Neut # (Auto) 4.4 x10E3/uL (1.8-7.7) 01/03/17 17:45 Lymph # (Auto) 2.1 x10E3/uL (1.00-4.8) 01/03/17 17:45 Pine # (Auto) 1.0 x10E3/uL (0.0-0.8) H 01/03/17 [...] where applicable. 01/11/2018--left diagnostic mammogram reviewed from [facility] Left breast stable with scattered benign appearing calcifications and benign appearing lymph nodes. BIRADS 2--Benign findings. Assessment and Plan (1) Breast cancer, right Qualifiers: Estrogen receptor status: negative Patient sex: female Status: Chronic 1. 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 ER negative, UT weak, and HER-2 nonamplified. 2. She underwent mastectomy at [place] in 02/2015. Completed dose dense AC X4 and Taxol X 12 in August 2015. 3. Anastrazole with calcium and vitamin D started in August 2015, Calcium and vitamin D discontinued 07/2016 Anastrazole stopped in 01/2017 when she developed vasculitis although there is no proven association at this time. Anastrozole was resumed in 03/2017 4. Seeing contract negotiation specialist in [place] for persistent leg pain and swelling (he [...] inflammatory. She was referred to pulmonary at [place]. Followup PET/CT 08/2017 showed resolution of prior [...] vasculitis but per second opinion from a contract negotiation specialist and security specialist in [place] this is not vasculitis. They told her [...] for coordination of care (as documented) and fpmv-dq-pxjt counseling of patient and/or family. 25 - 35 minutes Dictated By: Kacie Garay MD DD/ 1543 Signed By: <Electronically signed by Kacie Garay MD> 01/18/182016 [facility] Work Phone: [phone] 343-580805-17-2018 Progress note Author Mohsen Steiner [facility] August 18, 2017 3:25pm Note Date/Time August 18, 2017 3:23p m [facility] [place] [address] Hem/Onc Follow Up Note - OP Signed Patient: Myla Pollack MR#: [id number] : 1950 Acct:[id number] Age/Sex: 67 / F Type: REG RCR [...] % (Auto) 27.4 % (.) 01/03/17 17:45 Pine % (Auto) 12.7 % (.) 01/03/17 17:45 Eos % (Auto) 1.5 % (.) 01/03/17 17:45 Baso % (Auto) 0.6 % (.) 01/03/17 17:45 Neut # (Auto) 4.4 x10E3/uL (1.8-7.7) 01/03/17 17:45 Lymph # (Auto) 2.1 x10E3/uL (1.00-4.8) 01/03/17 17:45 Pine # (Auto) 1.0 x10E3/uL (0.0-0.8) H 01/03/17 [...] N0, M0. 2. Tumor was ER negative, UT weak, and HER-2 nonamplified. 3. She underwent mastectomy at [place] in 02/2015. Completed dose dense AC X4 [...] inflammatory. She was referred to pulmonary at [place] 8. A focus of increased uptake in [...] vasculitis but per second opinion from a contract negotiation specialist and security specialist in [place] this is not vasculitis. They told her [...] for coordination of care (as documented) and xulg-ew-jsbg counseling of patient and/or family. Dictated By: Mohsen Steiner MD DD/ 1517 Signed By: <Electronically signed by Mohsen Steiner MD> 08/18/17 1521 [facility] Work Phone: [phone] Progress note Author Mohsen Steiner [facility] July 21, 2017 3:44pm Note Date/Time July 21, 2017 3:4 0pm [facility] [place] [address] Hem/Onc Follow Up Note - OP Signed Patient: Myla Pollack MR#: [id number] : 1950 Acct:[id number] Age/Sex: 67 / F Type: REG RCR Copies to: Pinky Og DO~ Subjective Date/Time of Service: Date of Service: 07/21/2017 Time of Service: 15:39 Chief Complaint: Patient here for four month follow up appointment with labs. HPI: Patient returns to the clinic for a pre-scheduled follow-up visit that reports that 1. She saw a security specialist and contract negotiation specialist in [place]. They do not think that she has [...] % (Auto) 27.4 % (.) 01/03/17 17:45 Pine % (Auto) 12.7 % (.) 01/03/17 17:45 Eos % (Auto) 1.5 % (.) 01/03/17 17:45 Baso % (Auto) 0.6 % (.) 01/03/17 17:45 Neut # (Auto) 4.4 x10E3/uL (1.8-7.7) 01/03/17 17:45 Lymph # (Auto) 2.1 x10E3/uL (1.00-4.8) 01/03/17 17:45 Pine # (Auto) 1.0 x10E3/uL (0.0-0.8) H 01/03/17 [...] N0, M0. 2. Tumor was ER negative, UT weak, and HER-2 nonamplified. 3. She underwent mastectomy at [place] in 02/2015. Completed dose dense AC X4 [...] inflammatory. She was referred to pulmonary at [place] 8. A focus of increased uptake in [...] vasculitis but per second opinion from a contract negotiation specialist and security specialist in [place] this is not vasculitis. They told her [...] for coordination of care (as documented) and vryh-ny-kobc counseling of patient and/or family. Dictated By: Mohsen Steiner MD DD/ 1539 Signed By: <Electronically signed by Mohsen Steiner MD> 07/21/17 1544 [facility] Work Phone: [phone] Progress note Author Mohsen Steiner [facility] March 25, 2017 11:28am Note Date/Time March 25, 2017 11:27am [facility] at [address] [address] Hem/Onc Follow Up Note - OP Signed Patient: Myla Pollack MR#: [id number] : 1950 Acct:[id number] Age/Sex: 66 / F Type: REG RCR Copies to: Pinky Og DO~ Subjective Date/Time of Service: Date of Service: 03/25/2017 Time of Service: 11:25 Chief Complaint: Patient is here to review MRI report and to follow up after seeing the sweeper brush maker machine. HPI: Patient returns to the clinic for a pre-scheduled follow-up visit that reports that 1. She was seen at [facility] rheumatology, and from there she was referred to a security specialist in [place]. No final diagnosis has yet been made. 2. She had an MRI of the liver 3. She was seen by pulmonary in [facility] Details: All systems reviewed & no [...] % (Auto) 27.4 % (.) 01/03/17 17:45 Pine % (Auto) 12.7 % (.) 01/03/17 17:45 Eos % (Auto) 1.5 % (.) 01/03/17 17:45 Baso % (Auto) 0.6 % (.) 01/03/17 17:45 Neut # (Auto) 4.4 x10E3/uL (1.8-7.7) 01/03/17 17:45 Lymph # (Auto) 2.1 x10E3/uL (1.00-4.8) 01/03/17 17:45 Pine # (Auto) 1.0 x10E3/uL (0.0-0.8) H 01/03/17 [...] N0, M0. 2. Tumor was ER negative, UT weak, and HER-2 nonamplified. 3. She underwent mastectomy at [place] in 02/2015. Completed dose dense AC X4 [...] pulmonary (by her preference to a new sweeper brush maker machine at [facility]) 8. A focus of increased uptake in the liver of quasi-significance was also identified. On MRI of the liver there was no abnormality found (2) Pulmonary embolism Status: Chronic She is currently on warfarin (3) Vasculitis Status: Acute She is being seen by rheumatology at [facility]. (4) Lung nodules Status: Resolved [...] for coordination of care (as documented) and retz-tq-qzgt counseling of patient and/or family. Dictated By: Mohsen Steiner MD DD/ 1125 Signed By: <Electronically signed by Mohsen Steiner MD> 03/25/17 1128 [facility] Work Phone: [phone] Progress note Author Mohsen Steiner [facility] March 16, 2017 3:11pm Note Date/Time March 16, 2017 2:57pm [facility] [place] [address] Hem/Onc Follow Up Note - OP Signed Patient: Myla Pollack MR#: [id number] : 1950 Acct:[id number] Age/Sex: 66 / F Type: REG RCR Copies to: Pinky Og DO~ Subjective Date/Time of Service: Date of Service: 03/16/2017 Time of Service: 14:55 Chief Complaint: Patient is here for review of [employer] reports. HPI: Patient returns to the clinic for a pre-scheduled follow-up visit that reports that 1. She was seen at [facility] rheumatology, and from there she was referred to a security specialist in [place]. No final diagnosis has yet been made [...] % (Auto) 27.4 % (.) 01/03/17 17:45 Pine % (Auto) 12.7 % (.) 01/03/17 17:45 Eos % (Auto) 1.5 % (.) 01/03/17 17:45 Baso % (Auto) 0.6 % (.) 01/03/17 17:45 Neut # (Auto) 4.4 x10E3/uL (1.8-7.7) 01/03/17 17:45 Lymph # (Auto) 2.1 x10E3/uL (1.00-4.8) 01/03/17 17:45 Pine # (Auto) 1.0 x10E3/uL (0.0-0.8) H 01/03/17 [...] N0, M0. 2. Tumor was ER negative, UT weak, and HER-2 nonamplified. 3. She underwent mastectomy at [place] in 02/2015. Completed dose dense AC X4 [...] pulmonary (by her preference to a new sweeper brush maker machine at [facility]) 8. A focus of increased uptake in the liver of quasi-significance was also identified. MRI of the liver has been requested (2) Pulmonary embolism Status: Chronic She is currently on warfarin (3) Vasculitis Status: Acute She was seen by rheumatology at [facility]. (4) Lung nodules Status: Acute [...] for coordination of care (as documented) and uymj-jp-tjkx counseling of patient and/or family. Dictated By: Mohsen Steiner MD DD/ [id number] Signed By: <Electronically signed by Mohsen Steiner MD> 03/16/17 1162 [facility] Work Phone: [phone]) [phone] Progress note Author Mohsen Steiner [facility] February 28, 2017 2:51pm Note Date/Time February 28, 2017 2:29pm [facility] at [address] [address] Hem/Onc Follow Up Note - OP Signed Patient: Myla Pollack MR#: [id number] : 1950 Acct:[id number] Age/Sex: 66 / F Type: REG RCR Copies to: Pinky Og DO~ Subjective Date/Time of Service: Date of Service: 02/28/2017 Time of Service: 14:26 Chief Complaint: Patient here to follow up after rheumatology referral. HPI: Patient returns to the clinic for a pre-scheduled follow-up visit that reports that 1. She was seen at [facility] rheumatology ROS Details: All systems [...] % (Auto) 27.4 % (.) 01/03/17 17:45 Pine % (Auto) 12.7 % (.) 01/03/17 17:45 Eos % (Auto) 1.5 % (.) 01/03/17 17:45 Baso % (Auto) 0.6 % (.) 01/03/17 17:45 Neut # (Auto) 4.4 x10E3/uL (1.8-7.7) 01/03/17 17:45 Lymph # (Auto) 2.1 x10E3/uL (1.00-4.8) 01/03/17 17:45 Pine # (Auto) 1.0 x10E3/uL (0.0-0.8) H 01/03/17 [...] N0, M0. 2. Tumor was ER negative, UT weak, and HER-2 nonamplified. 3. She underwent mastectomy at [place] in 02/2015. Completed dose dense AC X4 [...] Acute She was seen by rheumatology at [facility]. The ordered some initial workup [...] for coordination of care (as documented) and xuxr-qm-picw counseling of patient and/or family. Dictated By: Mohsen Steiner MD DD/ 1426 Signed By: <Electronically signed by Mohsen Steiner MD> 02/28/17 4311 [facility] Work Phone: 1(620) 709-432211-02-2017 Progress note Author Mohsen Steiner [facility] February 03, 2017 9:03am Note Date/Time February 03, 2017 9 :01am [facility] [place] [address] Hem/Onc Follow Up Note - OP Signed Patient: Myla Pollack MR#: [id number] : 1950 Acct:[id number] Age/Sex: 66 / F Type: REG RCR Copies to: Pinky Og DO~ Subjective Date/Time of Service: Date of Service: 02/03/2017 Time of Service: 08:58 Chief Complaint: Patient here to follow up after EGD and EUS. HPI: Patient returns to the clinic for a pre-scheduled follow-up visit that reports that 1. She had an EUS at [facility] by Dr. Tara Hess and no [...] % (Auto) 27.4 % (.) 01/03/17 17:45 Pine % (Auto) 12.7 % (.) 01/03/17 17:45 Eos % (Auto) 1.5 % (.) 01/03/17 17:45 Baso % (Auto) 0.6 % (.) 01/03/17 17:45 Neut # (Auto) 4.4 x10E3/uL (1.8-7.7) 01/03/17 17:45 Lymph # (Auto) 2.1 x10E3/uL (1.00-4.8) 01/03/17 17:45 Pine # (Auto) 1.0 x10E3/uL (0.0-0.8) H 01/03/17 [...] N0, M0. 2. Tumor was ER negative, UT weak, and HER-2 nonamplified. 3. She underwent mastectomy at [place] in 02/2015. Completed dose dense AC X4 [...] Status: Acute She was referred to the [facility] but her appointment is in April [...] for coordination of care (as documented) and pqes-jx-mpfz counseling of patient and/or family. Dictated By: Mohsen Steiner MD DD/ 0858 Signed By: <Electronically signed by Mohsen Steiner MD> 02/03/17 0903 [facility] Work Phone: [phone] Progress note Author Mohsen Steiner [facility] January 12, 2017 10:59pm Note Date/Time January 12, 2017 1 0:57pm [facility] [facility] at [address] [address] Hem/Onc Follow Up Note - OP Signed Patient: Myla Pollack MR#: [id number] : 1950 Acct:[id number] Age/Sex: 66 / F Type: REG RCR Copies to: Pinky Og DO~ Subjective Date/Time of Service: Date of Service: 01/12/2017 Time of Service: 22:52 Chief Complaint: Patient is here to follow up PET scan results. HPI: Patient returns to the clinic for a pre-scheduled follow-up visit that reports that 1. She was diagnosed with vasculitis at [facility] 2. She was found to have [...] % (Auto) 27.4 % (.) 01/03/17 17:45 Pine % (Auto) 12.7 % (.) 01/03/17 17:45 Eos % (Auto) 1.5 % (.) 01/03/17 17:45 Baso % (Auto) 0.6 % (.) 01/03/17 17:45 Neut # (Auto) 4.4 x10E3/uL (1.8-7.7) 01/03/17 17:45 Lymph # (Auto) 2.1 x10E3/uL (1.00-4.8) 01/03/17 17:45 Pine # (Auto) 1.0 x10E3/uL (0.0-0.8) H 01/03/17 [...] N0, M0. 2. Tumor was ER negative, UT weak, and HER-2 nonamplified. 3. She underwent mastectomy at [place] in 02/2015. Completed dose dense AC X4 [...] We will be referring her to the [facility] for evaluation and management. (4) Lung [...] for coordination of care (as documented) and ylos-sd-rain counseling of patient and/or family. Dictated By: Mohsen Steiner MD DD/ 51 Signed By: <Electronically signed by Mohsen Steiner MD> 01/12/17 2259 [facility] Work Phone: 1(680) 411-690610-04-2017 Progress note Author Mohsen Steiner [facility] January 05, 2017 4:45pm Note Date/Time January 05, 2017 4: 38pm [facility] at [address] [address] Hem/Onc Follow Up Note - OP Signed Patient: Myla Pollack MR#: [id number] : 1950 Acct:[id number] Age/Sex: 66 / F Type: REG RCR cc: Pinky Og DO~ Subjective Date/Time of Service: Date of Service: 01/05/2017 Time of Service: 16:37 Chief Complaint: Patient is here for follow up to CT scan patient has been having ongoing vascular problems. HPI: Patient returns to the clinic for a pre-scheduled follow-up visit that reports that 1. She was diagnosed with vasculitis at [facility] 2. She was found to have [...] % (Auto) 27.4 % (.) 01/03/17 17:45 Pine % (Auto) 12.7 % (.) 01/03/17 17:45 Eos % (Auto) 1.5 % (.) 01/03/17 17:45 Baso % (Auto) 0.6 % (.) 01/03/17 17:45 Neut # (Auto) 4.4 x10E3/uL (1.8-7.7) 01/03/17 17:45 Lymph # (Auto) 2.1 x10E3/uL (1.00-4.8) 01/03/17 17:45 Pine # (Auto) 1.0 x10E3/uL (0.0-0.8) H 01/03/17 [...] N0, M0. 2. Tumor was ER negative, UT weak, and HER-2 nonamplified. 3. She underwent mastectomy at [place] in 02/2015. Completed dose dense AC X4 [...] that in November, she was admitted at [facility] and was diagnosed with vasculitis affecting [...] for coordination of care (as documented) and yrmg-xa-nawx counseling of patient and/or family. Dictated By: Mohsen Steiner MD DD/ 1637 Signed By: <Electronically signed by Mohsen Steiner MD> 01/05/17 1645 [facility] Work Phone: [phone] 306-604410-03-2017 Progress note Author Jefferson Rice [facility] January 04, 2017 11:22am Note Date/Time January 04, 2017 11 :22am [facility] [place] [address] Hem/Onc Follow Up Note - OP Signed Patient: Myla Pollack MR#: [id number] : 1950 Acct:[id number] Age/Sex: 66 / F Type: REG RCR [...] Prescription was E-prescribed to her pharmacy at [facility]. 15 mg twice daily, for 3 [...] for coordination of care (as documented) and udbu-wn-ucjo counseling of patient and/or family. Dictated By: Jefferson Rice MD DD/ 1120 Signed By: <Electronically signed by Jefferson Rice MD> 01/04/17 1122 [facility] Work Phone: Evaluation note* Diagnosis Onset Date Resolution Status Breast cancer, right chronic Encounter for monitoring anastrozole therapy chronic Osteoarthritis of knees, bilateral chronic Pulmonary embolism chronic Screening for osteoporosis c hronic Cutaneous leukocytoclastic angiitis resolved History of hypercalcemia res olved Hypercalcemia resolved Lung nodules resolved Neuropathy resolved Vasculitis resolved [facility] Work Phone: Evaluation note* Diagnosis Primary open-angle glaucoma, bilateral, mild stage- Primary [facility] Primary open-angle glaucoma, bilateral, mild stage- Primary [facility] Diagnosis Primary open-angle glaucoma, bilateral, [...] Lung nodules resolved Neuropathy resolved Vasculitis resolved [facility] Work Phone: Evaluation note* Diagnosis Acute right hip pain- Primary Trochanteric bursitis of right hip Gluteal tendonitis of right buttock documented in [facility] encounter [facility]* Diagnosis Acute pain of right shoulder- Primary Neck pain Cervicalgia documented in this encounter [facility]* Diagnosis Primary open-angle glaucoma, bilateral, mild stage- Primary PCO (posterior capsular opacification), bilateral After-cataract, unspecified Dry eye syndrome of bilateral lacrimal glands Tear film insufficiency, unspecified [facility] Diagnosis Lymphedema- Primary Other noninfectious lymphedema documented [facility] SystemInstructionsNot on filedocumented in this encounter [facility] SystemProgress note Author Lynsey Land [facility] January 30, 2024 11:05am Note Date/Time January 30, 2024 1 0:16am [facility] [place] [address] Cancer Center Note Signed Patient: Myla Pollack MR#: [id number] : 1950 Acct:[id number] Age/Sex: 73 / F Type: DEP AMB Date of Service: 01/30/24 Copies to: Kenyetta Reynolds MD~ Assessment & Plan A/P (1) Breast cancer, right: Plan: Estrogen receptor status: negative Patient sex: female 1. 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 ER negative, UT weak, and HER-2 nonamplified. 2. She underwent mastectomy at [place] in 02/2015. Completed dose dense AC X4 and Taxol X 12 in August 2015. 3. 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 Anastrozole was resumed in 03/2017 4. Saw contract negotiation specialist in [place] for persistent leg pain and swelling (he [...] inflammatory. She was referred to pulmonary at [place]. --Followup PET/CT 08/2017 showed resolution of prior [...] changes on self breast exam. Screening left ogkuutqay05/19/2023 without recurrence. No systemic symptoms of recurrence, [...] of anastrozole, we will now follow annually [facility] patient wishes to return to oncology). We will arrange her annual follow-ups after her annual mammograms in January of each year. She also requested refill of breast prosthesis and mastectomy bra. No breast exam due to telephone visit. No skin changes or breast tenderness. No recent f/u by contract negotiation specialist in [place]--was reported to have vasculitis 4 years ago--now resolved but still has some mild erythema and swelling of left greater than right leg without pain. Receives Anastrozole due to weak UT expression--no significant myalgias/arthralgias or hot flashes. No [...] pT1c, N0, M0. Tumor was ER negative, UT weak, and HER-2 nonamplified. She underwent right mastectomy at [place] in 02/2015. Completed dose dense AC X4 [...] years of adjuvant therapy. 3. Evaluated by contract negotiation specialist in [place] (does not believe she had vasculitis)--no recent [...] inflammatory. She was referred to pulmonary at [place]. Ground glass opacities resolved on PET/CT 08/2017. [...] of Therapies: 1. Right breast mastectomy at [facility] (Dr. Rodriguez) in 02/2015. 2. Completed [...] hx: breast cancer and go over mamogram. [facility] Social History Social History (Updated 01/30/24 [...] By: <Electronically signed by CHIDI Land> 01/30/24 1107 [facility] Work Phone: Summary Purpose Family History [...] the event of a Fluress shortage, administer [place]-Fluor 1 drop into both eyes as directed for applanation tonometry Given 01/17/2023 8:30 AM EDT 1 Drop Reason for Referral Specialty Diagnoses / Procedures Referred By Contac t Referred To Contact Orthopaedic Surgery Diagnoses Trochanteric bursitis of right hip Gluteal tendonitis of right buttock Procedures L Inj/Asp: R greater trochanteric bursa Dino George, BET[address] [place] [address] Referral ID Status Reason Start Date Expiration Date V isits Requested Visits Authorized [id number] Authorized 12/19/2023 06/16/2024 1 1 Additional Source Comments INFORMATION SOURCE (unrecogn ized section and content) DATE CREATED AUTHOR 09/27/2017 [facility] DATE CREATED AUTHOR AUTHOR'S ORGANIZ ATION 01/18/2018 [facility] DATE CREATED AUTHOR AUTHOR'S ORGANIZ ATION 08/05/2018 [facility] DATE CREATED AUTHOR AUTHOR'S ORGANIZ ATION 09/10/2022 [facility] DATE CREATED AUTHOR AUTHOR'S ORGANIZ ATION 07/15/2023 [facility] DATE CREATED AUTHOR AUTHOR'S ORGANIZ ATION 01/31/2024 [facility] DATE CREATED AUTHOR AUTHOR'S ORGANIZ ATION 04/15/2024 [facility] EPIC DATE CREATED AUTHOR AUTHOR'S ORGANIZ ATION 04/21/2024 [facility] DATE CREATED AUTHOR AUTHOR'S ORGANIZ ATION 05/22/2024 [facility] Care Teams (unrecognized sec tion and content) [...] Kenyetta Reynolds MD Primary Care Provider Active New Car Get Ready Mechanic Relationship Specialty Start Date End Date Kenyetta Reynolds MD [address] [place] [address] PCP - General Family Medicine 03/14/19 [employer] Car Get Ready Mechanic Relationship Specialty Start Date End Date Kenyetta Reynolds MD PCP - General Family Medicine 03/14/19 New Car Get Ready Mechanic Relationship Specialty Start Date End Date Kenyetta Reynolds MD PCP - General Family Medicine 03/14/19 New Car Get Ready Mechanic Relationship Specialty Start Date End Date Kenyetta Reynolds MD [address] [place] [address] PCP - General Family Medicine 09/15/22 New Car Get Ready Mechanic Relationship Specialty Start Date End Date Kenyetta Reynolds MD PCP - General Family Medicine 03/14/19 New Car Get Ready Mechanic Relationship Specialty Start Date End Date Kenyetta Reynolds MD PCP - General Family Medicine 03/14/19 New Car Get Ready Mechanic Relationship Specialty Start Date End Date Kenyetta Reynolds MD PCP - General Family Medicine 03/14/19 New Car Get Ready Mechanic Relationship Specialty Start Date End Date Kenyetta Reynolds MD [address] [place] [address] PCP - General Family Medicine 09/15/22 New Car Get Ready Mechanic Relationship Specialty Start Date End Date Kenyetta Reynolds MD [address] [place] [address] PCP - General Family Medicine 09/15/22 New Car Get Ready Mechanic Relationship Specialty Start Date End Date Kenyetta Reynolds MD [address] [place] [address] PCP - General Family Medicine 09/15/22 New Car Get Ready Mechanic Relationship Specialty Start Date End Date Kenyetta Reynolds MD [address] [place] [address] PCP - General Family Medicine 09/15/22 New Car Get Ready Mechanic Relationship Specialty Start Date End Date Kenyetta Reynolds MD [address] [place] [address] PCP - General Family Medicine 12/20/19 Goals [...] or prosecute any alcohol or drug abuse patient.[facility] the event this information is protected by the Federal Confidentiality of Alcohol and Drug Abuse Patient Records regulations: The Federal rules restrict any use of the information to criminally investigate or prosecute any alcohol or drug abuse patient.[facility] HospitalIn the event this information is protected by the Federal Confidentiality of Alcohol and Drug Abuse Patient Records regulations: The Federal rules restrict any use of the information to criminally investigate or prosecute any alcohol or drug abuse patient.[facility] Hospital[facility] the event this information is protected by the Federal Confidentiality of Alcohol and Drug Abuse Patient Records regulations: The Federal rules restrict any use of the information to criminally investigate or prosecute any alcohol or drug abuse patient.[facility] HospitalIn the event this information is protected by the Federal Confidentiality of Alcohol and Drug Abuse Patient Records regulations: The Federal rules restrict any use of the information to criminally investigate or prosecute any alcohol or drug abuse patient.[facility] HospitalIn the event this information is protected by the Federal Confidentiality of Alcohol and Drug Abuse Patient Records regulations: The Federal rules restrict any use of the information to criminally investigate or prosecute any alcohol or drug abuse patient.[facility] HospitalIn the event this information is protected by the Federal Confidentiality of Alcohol and Drug Abuse Patient Records regulations: The Federal rules restrict any use of the information to criminally investigate or prosecute any alcohol or drug abuse patient.[facility] Reason for Visit (unrecogniz ed section [...] BE BASED ON THE PRIMARY CLINICAL RECORDS. [employer] provides no warranty or guarantee of the accuracy or completeness of information in this document.
--- NOTE | 2024-06-13 11:38 | PM.CN ---
Consult Note: HPI Data of Consult Patient: known to practice within the last 3 years Requesting Physician: Magali Castle NP Primary Care Provider: Guille Reynolds MD Consult Narrative Narrative: Myla Pollack a pleasant 74 year old female presents for evaluation of severe neck pain. Pt has been experiencing intermittently severe neck pain increasing since february of 2024, pain has not responded to PT/HEP, tylenlol, heat/ice, or NSAIDs. of note pt is on coumadin and should avoid NSAIDs. initially in february when the pain started it was accompanied with right arm pain, however that has significantly improved. Pts most significant pain is axial neck pain with headaches 3+ times a week. pain currently 2/10, increasing to 6/10 with housework and looking up or down. failed tylenol, currently utilizing prn motrin and lyrica without improvement. recently underwent bilateral C2-3 C3-4 MBB #1 and #2with >80% improvement in pain and functional ability immediately following and hours after the procedure. Preop pain up to 6/10 post op pain 0/10. cc:: CC: Magali Castle NP Review of Systems ROS Status of ROS 10 or more systems reviewed and unremarkable except as noted in history and below Musculoskeletal Reports: neck pain; Denies: extremity pain [facility] Medical History (Updated 04/19/24 @ 14:18 by Magali Castle NP) Hammertoe of left foot ?M20.42 - Other hammer toe(s) (acquired), left foot (ICD-10) Other osteonecrosis, left foot ?M87.875 - Other osteonecrosis, left foot (ICD-10) Hallux rigidus, left foot ?M20.22 - Hallux rigidus, left foot (ICD-10) Nasal polyp ?J33.9 - Nasal polyp, unspecified (ICD-10) Neuropathy ?G62.9 - Polyneuropathy, unspecified (ICD-10) Osteoarthritis ?M19.90 - Unspecified osteoarthritis, unspecified site (ICD-10) Arthritis ?M19.90 - Unspecified osteoarthritis, unspecified site (ICD-10) Pulmonary embolism ?I26.99 - Other pulmonary embolism without acute cor pulmonale (ICD-10) Chronic obstructive pulmonary disease ?J44.9 - Chronic obstructive pulmonary disease, unspecified (ICD-10) Asthma ?J45.909 - Unspecified asthma, uncomplicated (ICD-10) Migraine ?G43.909 - Migraine, unspecified, not intractable, without status migrainosus (ICD-10) Cataract ?H26.9 - Unspecified cataract (ICD-10) Varicose vein of leg ?I83.90 - Asymptomatic varicose veins of unspecified lower extremity (ICD-10) Painful orthopaedic hardware ?T84.84XA - Pain due to internal orthopedic prosthetic devices, implants and grafts, initial encounter (ICD-10) Hallux rigidus ?M20.20 - Hallux rigidus, unspecified foot (ICD-10) Hammertoe ?M20.40 - Other hammer toe(s) (acquired), unspecified foot (ICD-10) Hallux valgus ?M20.10 - Hallux valgus (acquired), unspecified foot (ICD-10) Breast cancer ?C50.919 - Malignant neoplasm of unspecified site of unspecified female breast (ICD-10) Surgical History (Updated 04/19/24 @ 14:47 by Elisabeth Walters) History of esophagogastroduodenoscopy (EGD) ?Z98.890 - Other specified postprocedural states (ICD-10) History of cataract extraction ?Z98.49 - Cataract extraction status, unspecified eye (ICD-10) History of colonoscopy ?Z98.890 - Other specified postprocedural states (ICD-10) H/O mastectomy ?Z90.10 - Acquired absence of unspecified breast and nipple (ICD-10) History of carpal tunnel release ?Z98.890 - Other specified postprocedural states (ICD-10) History of foot surgery ?Z98.890 - Other specified postprocedural states (ICD-10) History of foot surgery ?Z98.890 - Other specified postprocedural states (ICD-10) History of arthroplasty of knee ?Z96.659 - Presence of unspecified artificial knee joint (ICD-10) Family History Mother Pancreatic cancer Other Family history of diabetes mellitus Family history of heart disease Family history of hypertension Family history of myocardial infarction Family history of pancreatic cancer Social History Within the past year, how often did you have a drink containing alcohol: never Score interpretation: A score less than 3 is consistent with normal alcohol consumption. 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 [employer] Highest level of school completed/degree received: high school graduate Meds Home Medications and Allergies Home Medications ?Medication ?Instructions ?Recorded ?Confirmed ?Type atorvastatin 20 mg tablet 20 mg PO QDAY 10/13/22 06/11/24 History cyclosporine 0.05 % eye drops in a 1 drp ophthalmic (eye) Q12H 10/13/22 06/11/24 History dropperette (Restasis) fluticasone propionate 50 2 spray intranasal Q12H 10/13/22 06/11/24 History mcg/actuation nasal spray,suspension montelukast 10 mg tablet 10 mg PO .QHS 10/13/22 06/11/24 History pregabalin 75 mg capsule 75 mg PO Q12H 10/13/22 06/11/24 History warfarin 5 mg tablet (Jantoven) 7.5 mg PO QDAY 10/13/22 06/11/24 History fluticasone furoate 100 1 inh inhalation DAILY 04/19/24 06/11/24 History mcg-vilanterol 25 mcg/dose inhalation powder (Breo Ellipta) sumatriptan succinate 100 mg tablet 100 mg PO 04/19/24 History Allergies Allergy/AdvReac Type Severity Reaction Status Date / Time Sulfa (Sulfonamide Allergy Unknown Verified 06/11/24 10:16 Antibiotics) Exam Constitutional Documenting provider has reviewed patient's vital signs: yes Common normals: no apparent distress, oriented x3, healthy appearing, alert and well nourished General appearance: cooperative [facility] Common normals: normocephalic, hearing grossly normal bilaterally and moist oral mucous membranes Head and scalp: normocephalic Eye Common normals: PERRL Pupil: PERRL Neck & C-Spine Common normals: full ROM General: normal visual inspection Cervical spine: cervical ROM abnormal, pain with cervical ROM and cervical spine tenderness; no paracervical muscle spasm, no trapezius muscle tenderness and Lhermitte's sign negative Other: negative spurlings sensation intact BUE strength 5/5 in BUE tenderness over bilateral greater occipital nerves positive facet pain and loading C2-5 Chest Common normals: inspection of chest normal Respiratory Common normals: normal respiratory effort, no retractions and no use of accessory muscles Neuro Common normals: oriented x3, CN's II-XII intact bilaterally, moves all extremities, no focal motor deficits, no sensory deficits noted and deep tendon reflexes 2+ bilaterally Sensorium/orientation: alert Motor exam: strength 5/5 throughout and no movement abnormalities noted Psych Common normals: mental status grossly normal, thought process normal, cooperative, affect normal, speech normal and activity/motor behavior normal Speech: normal speech Thought process: normal thought process Results Additional Findings Additional findings: There are moderate disc osteophyte complex associated with uncovertebral joint arthrosis from C3 to T1 contributing to neuroforaminal and canal stenosis. At the level of C2-C3, there is no neuroforaminal narrowing or canal stenosis. At the level of C3-C4, there is mild bilateral neuroforaminal narrowing and mild canal stenosis. At the level of C4-C5, there is severe bilateral neuroforaminal narrowing and severe canal stenosis. At the level of C5-C6, there is mild bilateral neuroforaminal narrowing and mild canal stenosis. At the level of C6-C7, there is mild right and moderate left neuroforaminal narrowing and mild canal stenosis. Level of C7-T1 is unremarkable. No definite muscular or ligamentous injury is noted. Assessment and Plan Assessment and Plan (1) Cervical spondylosis: Assessment and Plan: The patient has had over 3 months of moderate to severe neck pain with functional impairment and inadequate response to conservative care including NSAIDS (unless there are contraindication such as concurrent blood thinners), multiple oral or topical pain medications, and home exercise program/physical therapy.? Patient has completed >6 weeks of guided home exercise program and/or formal physical therapy program without relief of their symptoms.? I have reviewed the imaging of the cervical spine and no red flags were identified.? ? NIKOLAY 2%, moderate to severe pain We discussed the risks and benefits of the procedure with the patient, and we are NOT planning on using sedation as outlined in the guidelines from Medicare unless there is a documented reason that sedation would be strongly recommended.?? ?The procedure will be completed with fluoroscopic guidance.? (2) Cervical spinal stenosis: (3) Degenerative disc disease, cervical: Plan proceed right and left C2-3 C3-4 medial branch RFA to improve axial neck pain and headaches. 10mg po valium 30-60 minutes prior to procedure continue topical cream formulation TID to QID as needed for pain f/u 1 month after RFA complete
== END 2024-06-13 11:26 | disposition home or self-care (01) ==
LOC: PM 11:25
PROVIDERS: PCP Family Medicine; Visit Provider Nurse Practitioner
DX: M47.812 Spondylosis without myelopathy or radiculopathy, cervical region (principal); M48.02 Spinal stenosis, cervical region; M50.30 Other cervical disc degeneration, unspecified cervical region
CPT/HCPCS: G0463

== ENCOUNTER 2024-07-02 10:05 | Day surgery (SDC) | payer MEDICARE, OTHER, SELFPAY ==
--- OUTSIDE RECORDS SUMMARY | 2024-07-02 10:12 | XMS_ITS | CCD ---
Author Organization [facility] Care Team Providers Care Environmental Systems Coordinator Name Role Phone Demarco Hess Unavailable Unavailable [...] Provider MD Kenyetta Reynolds Primary Care Provider [phone] Kenyetta Reynolds MD Primary Care Provider [phone] Kenyetta Reynolds MD Primary Care Provider [phone] CORAWWAD, COVARRUBIAS H Attending Unavailable FAWWAD, COVARRUBIAS [...] Provider MD Kenyetta Reynolds Primary Care Provider [phone] Kenyetta Reynolds MD Primary Care Provider LYNSEY SALDANA Attending Unavailable KENYETTA REYNOLDS Referring Unavailable KENYETTA REYNOLDS Primary Care Unavailable Kenyetta Reynolds MD Primary Care Provider MD Christian Steiner Other Provider MD Kacie Garay Attending Provider MD Kenyetta Reynolds Primary Care Provider [phone] Christian Steiner Consulting Unavailable Kacie Garay Admitting [...] Unavailable Kenyetta Reynolds MD Primary Care Provider [phone] Nicho FERGUSON, Lizzie Little Attending Unavailable Nicho FERGUSON, Lizzie Little Attending Unavailable Allergies Allergy Classification Reported Allergen(s) Allergy Type Date of Onset Reaction(s) Facility Sulfonamides (antibiotic) (1 source) Sulfonamides (Antibiotic) Drug Allergy 9 Unknown [facility] (17 sources) Sulfonamides (Antibiotic); 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: [SULFA (SULFONAMIDE ANTIBIOTICS)] Drug Allergy 9 Unknown [facility] (1 source) Sulfonamides (Antibiotic) Drug allergy (disorder) 5 [facility] (8 sources) Sulfamethoxazole / Trimethoprim Drug Allergy 1 Unknown [facility] (1 source) Sulfonamides (Antibiotic) Drug allergy (disorder) 4 [facility] Repository Medications Current Medications Medication [...] by mouth every six hours as needed egvpppuaxv-yexftpnhrmujw-udrsrwsy 50-325 -40 MG tablet Take 1 tablet by mouth every 6 (six) hours if needed. 0 Active End: 01-17-2023 acetaminophen 325 mg-caffein e 40 mg-butalbital 50 mg (FIORICET) per tablet ihuzikuysl-xauyxjnnkpwwu-kmjjtttp 50 mg-325 mg-40 mg tablet 0 01/17/2023 [...] Oral Daily July 19, 2018 10:42am 07-19-2018 [facility] ([id number]) 07/19/2018 Active take 1 tablet by mouth in the mo rning cholecalciferol (D3-5) 5,000 Units tablet Take 5,000 Units by mouth in the morning. Active Comment on above: Cholecalciferol Chol ecalciferol (Vitamin D3) Active 1000 UNIT Oral Daily July 19, 2018 10:42am 07-19-2018 [facility] ([id number]) CHONDROITIN SULFATE A ORAL (14 sources) take [...] oral capsule (1 source) Vitamin B12 Start: take 1 capsule by mouth in the [...] Twice daily March 25, 2017 10:57am 03-25-2017 [facility] ([id number]) 03/25/2017 Active Comment on above: Linseed Oil Flaxseed Oil Active 1000 MG Oral Twice daily March 25, 2017 10:57am 03-25-2017 [facility] ([id number]) Magnesium (16 sources) take 1 mg by [...] Oral Daily January 05, 2017 3:53pm 01-05-2017 [facility] ([id number]) 01/05/2017 Active Comment on above: Magnesium Oxide Magn esium Oxide Active 250 MG Oral Daily January 05, 2017 3:53pm 01-05-2017 [facility] ([id number]) montelukast 10 mg oral tablet (19 sources) [...] puff(s) by inhalation every twenty-four hours Tiotropium Tad (Spiriva Respimat) 2.5 mcg/actuation Mist Discontinued 2 [...] 3 01-21-2022 Episodic Other aftercare (1 source) director 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 anticoagulants; 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: [SENIOR CARE CURRNT USE ANTICOAGULANTS] Onset: 3 Episodic Other [...] 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: [Presence of functional implant, unspecified] Onset: 4 08-18-2023 Chronic Spondylosis; intervertebral disc disorders; other [...] sources) Long-term current use of anticoagulant; 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: [director 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 anticoagulants] Onset: 02-02-2019 Resolved: 09-14-2022 07-05-2022 Episodic Other aftercare (15 sources) Long-term current use of drug therapy; 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: [Other fpc (current) drug therapy] Onset: 03-22-2022 Resolved: 09-14-2022 07-05-2022 Episodic Other aftercare (1 source) Other fpc (current) drug therapy; 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: [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] Onset: 03-22-2022 Episodic Other [...] 07-05-2022 Episodic Unclassified (1 source) HEALTH MAINTENANCE 62107 Z00.00 Onset: 01-28-2017 Urinary tract infections (8 sources) Acute cystitis; 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: [Acute cystitis without hematuria] Onset: 10-19-2019 Resolved: 09-14-2022 09-14-2022 Episodic Results Test Name Value Interpretation Reference Range Facility MM screening mammo LT w/CADo n 01-23-2024 MM screening mammo LT w/CAD [facility] [place] [address] [place], [place] [id number] Mammography Report Signed Patient: Myla Pollack MR#: [id number] : 1950 Acct:[id number] Age/Sex: 73 / F ADM Date: 01/23/24 Loc: Room: Type: [facility] RCR Attending Dr: Kacie Garay MD Copies [...] José Sandoval M.D.01/23/2024 10:09 AM Dictation Location: [facility] Transcribed By: [facility] 01/23/24 1009 Dictated By: José Sandoval DO 01/23/24 1008 Signed By: 01/23/24 1009 Normal [facility] No Panel Informationon 12-18 BETO [...] and draped in the usual sterile fashion. [facility] LASER TRABECULOPLASTY OD (RI GHT EYE)on 09-05-2023 [facility] OCT OPTIC NERVE CIRRUS OU (B OTH EYES)on 07-27-2023 [facility] Radiology Study observation (narrative) [facility] VISUAL FIELD 24-2 OU (BOTH E YES)on 07-27-2023 [facility] Radiology Study observation (narrative) [facility] MRI WRIST RT WO CONon 2022 MRI [...] DINO GREGORY Date: 2022-06-20 13:14 Normal [facility] INSULINon 04-29-2022 Insulin 15.6 uIU/mL Normal 2.6-24.9 [facility] Comment on above: Performed By: #### I NSULIN #### [facility] Laboratory [address] [place] [address] Dr. Marizol Macedo CBC AUTO DIFFon 04-28-2022 BASO # 0.0 103/ul Normal 0.0-0.1 [facility] Comment on above: Performed By: #### C BC #### [facility] [address] [place] [address] Dr. Marizol Macedo Basophils/100 WBC (Bld) 0.3 % Normal 0.2-2.0 [facility] Comment on above: Performed By: #### C BC #### [facility] [address] [place] [address] Dr. Marizol Macedo EO # 0.1 103/ul Normal 0.0-0.7 [facility] Comment on above: Performed By: #### C BC #### [facility] [address] [place] [address] Dr. Marizol Macedo Eosinophils/100 WBC (Bld) 1.0 % Normal 0.9-7.0 [place] Comment on above: Performed By: #### C BC #### [facility] [address] [place] [address] Dr. Marizol Macedo Erythrocyte distribution width (RBC) [Ratio] 12.6 % Normal 11.0-15.0 [place] Comment on above: Performed By: #### C BC #### [facility] [address] [place] [address] Dr. Marizol Macedo Hematocrit (Bld) [Volume fraction] 43.4 % Normal 36.0-48.0 [place] Comment on above: Performed By: #### C BC #### [facility] [address] [place] [address] Dr. Marizol Macedo Hemoglobin (Bld) [Mass/Vol] 14.1 g/dL Normal 12.0-16.0 [place] Comment on above: Performed By: #### C BC #### [facility] [address] [place] [address] Dr. Marizol Macedo IG # 0.02 10e3/ul Normal 0.00-0.03 [place] Comment on above: Performed By: #### C BC #### [facility] [address] [place] [address] Dr. Marizol Macedo IG % 0.3 % Normal 0.0-0.5 [place] Comment on above: Performed By: #### C BC #### [facility] [address] [place] [address] Dr. Marizol Macedo LYMPH # 2.4 103/ul Normal 1.2-3.8 [facility] Comment on above: Performed By: #### C BC #### [facility] [address] [place] [address] Dr. Marizol Macedo Lymphocytes/100 WBC (Bld) 30.9 % Normal 20.5-60.0 [place] Comment on above: Performed By: #### C BC #### [facility] [address] [place] [address] Dr. Marizol Macedo MANUAL DIFF REQ NO Normal [facility] Comment on above: Performed By: #### C BC #### [facility] [address] [place] [address] Dr. Marizol Macedo MCH (RBC) [Entitic mass] 30.7 pg Normal 26.7-34.0 [place] Comment on above: Performed By: #### C BC #### [facility] [address] [place] [address] Dr. Marizol Macedo MCHC (RBC) [Mass/Vol] 32.5 g/dL Normal 29.9-35.2 [place] Comment on above: Performed By: #### C BC #### [facility] [address] [place] [address] Dr. Marizol Macedo MCV (RBC) [Entitic vol] 94.3 fL Normal 81.0-99.0 [place] Comment on above: Performed By: #### C BC #### [facility] [address] [place] [address] Dr. Marizol Macedo MONO # 0.4 103/ul Normal 0.3-0.8 [place] Comment on above: Performed By: #### C BC #### [facility] [address] [place] [address] Dr. Marizol Macedo Monocytes/100 WBC (Bld) 5.4 % Normal 1.7-12.0 [place] Comment on above: Performed By: #### C BC #### [facility] [address] [place] [address] Dr. Marizol Macedo NEUT # 4.9 103/ul Normal 1.4-6.5 [facility] Comment on above: Performed By: #### C BC #### [facility] [address] [place] [address] Dr. Marizol Macedo Neutrophils/100 WBC (Bld) 62.1 % Normal 43.0-75.0 [place] Comment on above: Performed By: #### C BC #### [facility] [address] [place] [address] Dr. Marizol Macedo Platelet mean volume (Bld) [Entitic vol] 10.2 fL Normal 9.5-13.5 [place] Comment on above: Performed By: #### C BC #### [facility] [address] [place] [address] Dr. Marizol Macedo PLT 279 103/ul Normal 150-450 [place] Comment on above: Performed By: #### C BC #### [facility] [address] [place] [address] Dr. Marizol Macedo RBC 4.60 106/ul Normal 4.20-5.40 [place] Comment on above: Performed By: #### C BC #### [facility] [address] [place] [address] Dr. Marizol Macedo WBC 7.8 103/ul Normal 4.0-11.0 [place] Comment on above: Performed By: #### C BC #### [facility] [address] [place] [address] Dr. Marizol Macedo FREE THYROXINE INDEX T7on FTI 3.50 Normal 1.30-4.50 [place] Comment on above: Performed By: #### L IPID, T7, CMP, TSH #### [facility] [address] [place] [address] Dr. Marizol Macedo T3U 35.0 % Normal 30.0-39.0 [place] Comment on above: Performed By: #### L IPID, T7, CMP, TSH #### [facility] [address] [place] [address] Dr. Marizol Macedo T4 [Mass/Vol] 10.00 ug/dL Normal 4.80-13.90 [facility] Comment on above: Performed By: #### L IPID, T7, CMP, TSH #### [facility] [address] [place] [address] Dr. Marizol Macedo GLYCOHEMOGLOBIN A1Con 2022 ADA RECOMMENDATION SEE BELOW Normal [facility] Comment on above: Result Comment: ADA RECOMMENDED LIMIT 4.0 - 6.0 ADA THERAPEUTIC TARGET < 7.0 ACTION SUGGESTED > 7.0 Performed By: #### A 1C #### [facility] [address] [address] [address] Marizol Macedo Glucose [Mass/Vol] 114 mg/dL Normal [facility] Comment on above: Performed By: #### A 1C #### [facility] [address] [place] [address] Dr. Marizol Macedo HbA1c (Bld) [Mass fraction] 5.6 % Normal 4.5-6.2 [place] Comment on above: Performed By: #### A 1C #### [facility] [address] [place] [address] Dr. Marizol Macedo IRONon 04-28-2022 Iron [Mass/Vol] 136.0 ug/dL Normal 50.0-170.0 [facility] Comment on above: Performed By: #### I CECELIA #### [facility] [address] [place] [address] Dr. Marizol Macedo LIPID PROFILEon 04-28-2022 CHOL-HDL RATIO NORM SEE BELOW Normal [facility] Comment on above: Result Comment: 3.3 - 4.4 LOW RISK 4.4 - 7.1 AVERAGE RISK 7.1 - 11.0 MODERATE RISK >11.0 HIGH RISK Performed By: #### L IPID, T7, CMP, TSH #### [facility] [address] [place] [address] Dr. Marizol Macedo Cholesterol [Mass/Vol] 134 mg/dL Normal <=200 [place] Comment on above: Performed By: #### L IPID, T7, CMP, TSH #### [facility] [address] [place] [address] Dr. Marizol Macedo Cholesterol in HDL [Mass/Vol] 69 mg/dL Critically high 40-60 [place] Comment on above: Performed By: #### L IPID, T7, CMP, TSH #### [facility] [address] [place] [address] Dr. Marizol Macedo Cholesterol in LDL [Mass/Vol] 46.6 mg/dL Normal [place] Comment on above: Performed By: #### L IPID, T7, CMP, TSH #### [facility] [address] [place], [place] [address] Dr. Marizol Macedo Cholesterol.total/Ch olesterol in HDL [Mass ratio] 1.9 {ratio} Normal [place] Comment on above: Performed By: #### L IPID, T7, CMP, TSH #### [facility] [address] [address] [address] Marizol Macedo HDL NORMAL > or = 60 mg/dl - LO W CARDIOVASCULAR RISK <40 mg/dl - HIGH CARDIOVASCULAR RISK Normal [place] Comment on above: Performed By: #### L IPID, T7, CMP, TSH #### [facility] [address] [address] [address] Marizol Macedo LDL CALC NORMAL SEE BELOW Normal [facility] Comment on above: Result Comment: <100 mg/dl OPTIMAL 100 - 129 mg/dl NEAR OR ABOVE OPTIMAL 130 - 159 mg/dl BORDERLINE HIGH 160 - 189 mg/dl HIGH >190 mg/dl VERY HIGH Performed By: #### L IPID, T7, CMP, TSH #### [facility] [address] [address] [address] Marizol Macedo Triglyceride [Mass/Vol] 92 mg/dL Normal <=150 [place] Comment on above: Performed By: #### L IPID, T7, CMP, TSH #### [facility] [address] [address] [address] Marizol Macedo VLDL CALC 18.4 mg/dL Normal [place] Comment on above: Performed By: #### L IPID, T7, CMP, TSH #### [facility] [address] [address] [address] Marizol Macedo PROF 14(COMP METB)on 023 Albumin [Mass/Vol] 3.9 g/dL Normal 3.4-5.0 [facility] Comment on above: Performed By: #### L IPID, T7, CMP, TSH #### [facility] [address] [place] [address] Dr. Marizol Macedo Albumin/Globulin [Mass ratio] 1.1 {ratio} Normal [place] Comment on above: Performed By: #### L IPID, T7, CMP, TSH #### [facility] [address] [address] [address] Marizol Macedo ALP [Catalytic activity/Vol] 97 U/L Normal 46-116 [place] Comment on above: Performed By: #### L IPID, T7, CMP, TSH #### [facility] [address] [address] [address] Marizol Macedo ALT [Catalytic activity/Vol] 57 U/L Normal 14-59 [place] Comment on above: Performed By: #### L IPID, T7, CMP, TSH #### [facility] [address] [address] [address] Marizol Macedo Anion gap [Moles/Vol] 11.9 mmol/L Normal [place] Comment on above: Performed By: #### L IPID, T7, CMP, TSH #### [facility] [address] [place] [address] Dr. Marizol Macedo AST [Catalytic activity/Vol] 35 U/L Normal 15-37 [place] Comment on above: Performed By: #### L IPID, T7, CMP, TSH #### [facility] [address] [address] [address] Marizol Macedo Bilirubin [Mass/Vol] 0.6 mg/dL Normal 0.2-1.0 [place] Comment on above: Performed By: #### L IPID, T7, CMP, TSH #### [facility] [address] [address] [address] Marizol Macedo Calcium [Mass/Vol] 9.8 mg/dL Normal 8.5-10.1 [facility] Comment on above: Performed By: #### L IPID, T7, CMP, TSH #### [facility] [address] [address] [address] Marizol Macedo Chloride [Moles/Vol] 103 mmol/L Normal 98-107 [place] Comment on above: Performed By: #### L IPID, T7, CMP, TSH #### [facility] [address] [address] [address] Marizol Macedo CO2 [Moles/Vol] 28.0 mmol/L Normal 21.0-32.0 [facility] Comment on above: Performed By: #### L IPID, T7, CMP, TSH #### [facility] [address] [address] [address] Marizol Macedo Creatinine [Mass/Vol] 0.75 mg/dL Normal 0.55-1.02 [facility] Comment on above: Performed By: #### L IPID, T7, CMP, TSH #### [facility] [address] [address] [address] Marizol Macedo EGFR-AF SALVADOREAN >60 Normal >=60 [facility] Comment on above: Performed By: #### L IPID, T7, CMP, TSH #### [facility] [address] [place] [address] Dr. Marizol Macedo EGFR-NON AF SALVADOREAN >60 Normal >=60 [facility] Comment on above: Performed By: #### L IPID, T7, CMP, TSH #### [facility] [address] [place] [address] Dr. Marizol Macedo Globulin (S) [Mass/Vol] 3.5 g/dL Normal [place] Comment on above: Performed By: #### L IPID, T7, CMP, TSH #### [facility] [address] [place] [address] Dr. Marizol Macedo Glucose [Mass/Vol] 91 mg/dL Normal 74-106 [facility] Comment on above: Performed By: #### L IPID, T7, CMP, TSH #### [facility] [address] [place] [address] Dr. Marizol Macedo Potassium [Moles/Vol] 3.9 mmol/L Normal 3.5-5.1 [facility] Comment on above: Performed By: #### L IPID, T7, CMP, TSH #### [facility] [address] [place] [address] Dr. Marizol Macedo Protein [Mass/Vol] 7.4 g/dL Normal 6.4-8.2 [facility] Comment on above: Performed By: #### L IPID, T7, CMP, TSH #### [facility] [address] [address] [address] Marizol Macedo Sodium [Moles/Vol] 139 mmol/L Normal 136-145 [facility] Comment on above: Performed By: #### L IPID, T7, CMP, TSH #### [facility] [address] [place] [address] Dr. Marizol Macedo Urea nitrogen [Mass/Vol] 13.0 mg/dL Normal 7.0-18.0 [place] Comment on above: Performed By: #### L IPID, T7, CMP, TSH #### [facility] [address] [place] [address] Dr. Marizol Macedo Urea nitrogen/Creatinine [Mass ratio] 17.3 mg/mg Normal [place] Comment on above: Performed By: #### L IPID, T7, CMP, TSH #### [facility] [address] [place] [address] Dr. Marizol Macedo TSHon 04-28-2022 TSH 1.306 uIU/mL Normal 0.358-3.740 [facility] Comment on above: Performed By: #### L IPID, T7, CMP, TSH #### [facility] [address] [place] [address] Dr. Marizol Macedo CBC W/DIFFon 09-28-2017 ABS BASOPHILS 0.0 10*3/uL Normal 0.0-0.2 [facility] Comment on above: Performed By: #### 4 180, 93557 ####[facility] [address] ABS IMM GRANS 0.0 10*3/uL Normal 0.0-0.2 [facility] Comment on above: Performed By: #### 4 180, 90522 ####[facility] [address] ABS NEUTROPHILS 2.8 10*3/uL Normal 1.6-7.6 [facility] Comment on above: Performed By: #### 4 180, 94770 ####[facility] [place] [address], [facility] Basophils Auto #/vol (Bld) 0.5 % Normal 0.0-1.0 [facility] Comment on above: Performed By: #### 4 1801, 27679 ####[facility] [place] [address], [facility] Eosinophils Auto #/vol (Bld) 0.1 10*3/uL Normal 0.0-0.5 [facility] Comment on above: Performed By: #### 4 1801, 18359 ####[facility] Eosinophils/100 WBC Auto (Bld) 2.3 % Normal 0.0-6.0 [facility] Comment on above: Performed By: #### 4 1801, 37071 ####[facility].[address] Erythrocyte distribution width Auto Ratio (RBC) 12.9 % Normal 11.5-15.0 [facility] Comment on above: Performed By: #### 4 1801, 29131 ####[facility].[address] Hematocrit Auto Volume Fraction (Bld) 42.9 % Normal 36.0-45.0 [facility] Comment on above: Performed By: #### 4 1801, 08844 ####[facility].[address] Hemoglobin mass conc (Bld) 14.1 g/dL Normal 12.0-15.0 [facility] Comment on above: Performed By: #### 4 1801, 59479 ####[facility] [place] [address], [facility] IMMATURE GRANS 0.3 % Normal 0.0-1.0 [facility] Comment on above: Performed By: #### 4 180, 10658 ####[facility] Lymphocytes Auto #/vol (Bld) 2.4 10*3/uL Normal 1.2-4.0 [facility] Comment on above: Performed By: #### 4 180, 82683 ####[facility] Lymphocytes/100 WBC Auto (Bld) 39.5 % Normal 20.0-45.0 [facility] Comment on above: Performed By: #### 4 180, 29052 ####[facility].[address] MCH Auto Entitic mass (RBC) 30.3 pg Normal 27.0-33.0 [facility] Comment on above: Performed By: #### 4 180, 52308 ####[facility] MCHC Auto mass conc (RBC) 32.9 g/dL Normal 32.0-35.0 [facility] Comment on above: Performed By: #### 4 180, [address]00 ####[place] [address] [facility].[address] MCV Auto Entitic volume (RBC) 92.3 fL Normal 82.0-98.0 [facility] Comment on above: Performed By: #### 4 180, [id number] ####[facility] Monocytes Auto #/vol (Bld) 0.7 10*3/uL Normal 0.1-1.0 [facility] Comment on above: Performed By: #### 4 180, 13117 ####[facility] [place] [address].[place] [address], [place] MONOS 11.2 % Normal 5.0-12.0 [facility] Comment on above: Performed By: #### 4 1801, 21260 ####[facility] [place] [address], [facility] Neutrophils/100 WBC Auto (Bld) 46.2 % Normal 40.0-72.0 [facility] Comment on above: Performed By: #### 4 1801, 58451 ####[facility] Nucleated RBC/100 WBC Ratio (Bld) 0 % Normal 0-0 [facility] Comment on above: Performed By: #### 4 1801, 69188 ####[place] [address] PLAT CNT 263 10*3/uL Normal 150-400 [facility] Comment on above: Performed By: #### 4 1801, 36361 ####[facility] RBC Auto #/vol (Bld) 4.65 10*6/uL Normal 3.80-5.00 Th e [facility] Comment on above: Performed By: #### 4 1801, 54917 ####[facility] WBC Auto #/vol (Bld) 6.07 10*3/uL Normal 4.00-10.60 Th [facility] Comment on above: Performed By: #### 4 1801, 37152 ####[facility] COMP METABOLIC PANELon 09-28 Albumin mass conc 4.1 g/dL Normal 3.5-5.7 [facility] Comment on above: Performed By: #### 4 1801, 18041 ####[facility] [place] [address], [facility] ALKALINE PHOSPH 73 IU/L Normal 34-104 [facility] Comment on above: Performed By: #### 4 180, 76167 ####[facility] [place] [address], [place] ALT enzyme act/vol 54 U/L High 7-52 [facility] Comment on above: Performed By: #### 4 180, 83390 ####[facility] [place] [address], [facility] AST enzyme act/vol 40 U/L High 13-39 [facility] Comment on above: Performed By: #### 4 180, 48546 ####[facility] [place] [address], [place] Bilirubin mass conc 0.4 mg/dL Normal 0.3-1.0 [facility] Comment on above: Performed By: #### 4 180, 88333 ####[facility] [place] [address], [facility] Calcium mass conc 9.7 mg/dL Normal 8.6-10.3 [facility] Comment on above: Performed By: #### 4 180, 20655 ####[facility] [place] [address], [place] Chloride molar conc 103 mmol/L Normal 98-107 [facility] Comment on above: Performed By: #### 4 180, 56679 ####[facility] [place] [address], [place] CO2 molar conc 28 mmol/L Normal 21-31 [facility] Comment on above: Performed By: #### 4 180, 06386 ####[facility] [place] [address], [place] Creatinine mass conc 0.81 mg/dL Normal 0.60-1.20 [facility] Comment on above: Performed By: #### 4 180, 92438 ####[facility] [place] [address], [place] GFR/1.73 sq M predicted among blacks MDRD vol rate/area (S/P/Bld) mL/min/{1.73_m2} Normal >60 [facility] Comment on above: Performed By: #### 4 180, 75781 ####[facility] [place] [address], [place] GFR/1.73 sq M predicted among non-blacks MDRD vol rate/area (S/P/Bld) mL/min/{1.73_m2} Normal >60 [facility] Comment on above: Performed By: #### 4 180, 78453 ####[facility] [place] [address], [facility] Glucose mass conc 95 mg/dL Normal 70-100 [facility] Comment on above: Performed By: #### 4 180, 08015 ####[facility] [place] [address], [facility] Potassium molar conc 4.4 mmol/L Normal 3.5-5.1 [facility] Comment on above: Performed By: #### 4 180, 39117 ####[facility] [place] [address], [facility] Protein mass conc 7.2 g/dL Normal 6.0-8.3 [facility] Comment on above: Performed By: #### 4 180, 22336 ####[facility] [place] [address], [place] Sodium molar conc 139 mmol/L Normal 136-145 [facility] Comment on above: Performed By: #### 4 180, 63594 ####[facility] [place] [address], [place] Urea nitrogen mass conc 19 mg/dL Normal 7-25 [facility] Comment on above: Performed By: #### 4 180, 16817 ####[facility] [facility] Glucose Glucometer (BldC) [M ass/Vol]on 08-17-2017 Glucose [Mass/Vol] 99 mg/dL [facility] Comment on above: Random Glucose Refer ence Range is dependent on time and content of last meal. Glucose of more than 200 mg/dL in a nonstressed, ambulatory subject supports the diagnosis of Diabetes Mellitus. CBC W/DIFFon 03-31-2017 Basophils Auto #/vol (Bld) 0.3 % Normal 0.0-2.0 [facility] Comment on above: Performed By: #### 4 180, 57680 ####[place] [address] [facility] Eosinophils/100 WBC Auto (Bld) 2.1 % Normal 0.0-5.0 [facility] Comment on above: Performed By: #### 4 180, 69113 ####[place] [address] [facility] Erythrocyte distribution width Auto Ratio (RBC) 13.0 % Normal 11.5-16.9 [facility] Comment on above: Performed By: #### 4 180, 78245 ####[place] [address] Hematocrit Auto Volume Fraction (Bld) 42.6 % Normal 36.0-48.0 [facility] Comment on above: Performed By: #### 4 180, 15937 ####[place] [address] Hemoglobin mass conc (Bld) 14.3 g/dL Normal 12.0-15.0 [facility] Comment on above: Performed By: #### 4 180, 02363 ####[facility] [place] [address], [facility] Lymphocytes/100 WBC Auto (Bld) 29.7 % Normal 20.0-40.0 [facility] Comment on above: Performed By: #### 4 180, 69429 ####[facility] MCH Auto Entitic mass (RBC) 30.7 pg Normal 24.0-32.0 [facility] Comment on above: Performed By: #### 4 180, 57755 ####[facility] MCHC Auto mass conc (RBC) 33.7 g/dL Normal 32.0-36.0 [facility] Comment on above: Performed By: #### 4 180, 52355 ####[place] [address] [facility] MCV Auto Entitic volume (RBC) 91.2 fL Normal 80.0-100.0 [facility] Comment on above: Performed By: #### 4 180, 93811 ####[place] [address] [facility] METHOD Normal RBC Morphology Normal [facility] Comment on above: Performed By: #### 4 180, 84671 ####[facility] MONOS 6.4 % Normal 2-8 [facility] Comment on above: Performed By: #### 4 180, 35299 ####[facility] [place] [address], [facility] Neutrophils/100 WBC Auto (Bld) 61.5 % Normal 50-70 [facility] Comment on above: Performed By: #### 4 180, 38501 ####[facility] [place] [address], [facility] PLAT CNT 261 Thou/mm3 Normal 100-400 [facility] Comment on above: Performed By: #### 4 180, 27558 ####[facility] [place] [address], [facility] RBC Auto #/vol (Bld) 4.67 mill/mm3 Normal 3.50-5.50 T [facility] Comment on above: Performed By: #### 4 180, 10746 ####[facility] WBC Auto #/vol (Bld) 6.6 Thou/mm3 Normal 4.0-10.0 Th e [facility] Comment on above: Performed By: #### 4 180, 28871 ####[facility] COMP METABOLIC PANELon 03-31 Albumin mass conc 4.0 g/dL Normal 3.5-5.7 [facility] Comment on above: Performed By: #### 4 180, 23771 ####[facility] ALKALINE PHOSPH 73 IU/L Normal 34-104 [facility] Comment on above: Performed By: #### 4 180, 14627 ####[facility] ALT enzyme act/vol 49 U/L Normal 7-52 [facility] Comment on above: Performed By: #### 4 180, 52275 ####[facility] AST enzyme act/vol 34 U/L Normal 13-39 [facility] Comment on above: Performed By: #### 4 180, 79714 ####[facility] Bilirubin mass conc 0.3 mg/dL Normal 0.3-1.0 [facility] Comment on above: Performed By: #### 4 180, 44478 ####[facility] [place] [address], [facility] Calcium mass conc 10.0 mg/dL Normal 8.6-10.3 [facility] Comment on above: Performed By: #### 4 180, 20998 ####[facility] [place] [address], [facility] Chloride molar conc 103 mmol/L Normal 98-107 [facility] Comment on above: Performed By: #### 4 180, 83160 ####[facility] [place] [address], [facility] CO2 molar conc 29 mmol/L Normal 21-31 [facility] Comment on above: Performed By: #### 4 180, 15924 ####[facility] [place] [address], [facility] Creatinine mass conc 0.86 mg/dL Normal 0.60-1.20 [facility] Comment on above: Performed By: #### 4 180, 18323 ####[place] [address] [place] [address], [facility] GFR/1.73 sq M predicted among blacks MDRD vol rate/area (S/P/Bld) mL/min/{1.73_m2} Normal >60 [facility] Comment on above: Performed By: #### 4 180, 63809 ####[facility] [place] [address], [facility] GFR/1.73 sq M predicted among non-blacks MDRD vol rate/area (S/P/Bld) mL/min/{1.73_m2} Normal >60 [facility] Comment on above: Performed By: #### 4 180, 66593 ####[facility] [facility] [place] [address], [facility] Glucose mass conc 86 mg/dL Normal 70-100 [facility] Comment on above: Performed By: #### 4 1802, 09241 ####[facility] [facility] [id number], [facility] Potassium molar conc 4.1 mmol/L Normal 3.5-5.1 [facility] Comment on above: Performed By: #### 4 1802, 62681 ####[facility] [place] [address], [facility] Protein mass conc 7.0 g/dL Normal 6.0-8.3 [facility] Comment on above: Performed By: #### 4 1802, 65347 ####[facility] [facility] [place] [address], [facility] Sodium molar conc 138 mmol/L Normal 136-145 [facility] Comment on above: Performed By: #### 4 180, 41583 ####[facility] [facility] [place] [address], [facility] Urea nitrogen mass conc 14 mg/dL Normal 7-25 [facility] Comment on above: Performed By: #### 4 180, 06289 ####[facility] [place] [address], [facility] ANAon 02-10-2017 HELENE SCREEN <1:40 Normal <1:40,1:40 [facility] Comment on above: Performed By: #### 1 0008 ####[facility] [facility].[address] ANCA IGG WITH REFLEX [id number] on 02-10-2017 ANCA <1:20 Normal <1:20 [facility] Comment on above: Result Comment: The ANCA IFA is <1:20; therefore, no further testing willbe performed.INTERPRETIVE INFORMATION: Anti-Neutrophil Cyto Ab, IgGNeutrophil Cytoplasmic Antibodies (C-ANCA = granularcytoplasmic staining, P-ANCA = perinuclear staining) arefound in the serum of over 90 percent of patients withcertain necrotizing systemic vasculitides, and usually inless than 5 percent of patients with collagen vasculardisease or arthritis.Performed by Ayannah,[address] [place] [id number] pqh.Embibe, Onel Connelly MD - Lab. Director ANTI DNAon 02-10-2017 ANTI DNA <1:10 Normal <1:10 [facility] Comment on above: Performed By: #### 1 0008 ####[facility] [facility].[address] ANTI-BETA 2 GLYCOPROTEIN 1on 02-10-2017 ANTI B2GP1 IGA 9.3 a units Normal 0.0-19.9 [facility] Comment on above: Performed By: #### 1 0008 ####[facility] [facility] [place] [address], [facility] ANTI B2GP1 IGG 1.1 g units Normal 0.0-19.9 [facility] Comment on above: Performed By: #### 1 0008 ####[facility].[address] ANTI B2GP1 IGM 2.5 m units Normal 0.0-19.9 [facility] Comment on above: Performed By: #### 1 0008 ####[facility] [facility].[address] ANTI-ENAon 02-10-2017 ANTI SM Negative Normal NEG,NEGATIVE,N eg [facility] Comment on above: Performed By: #### 1 0008 ####[facility] [place] [address], [facility] ANTI SM/ANTIRNP Negative Normal NEG,NEGATIVE ,N eg [facility] Comment on above: Performed By: #### 1 0008 ####[facility] ANTICARDIOLIPIN ANTIBODYon 1 04-12-2016 CARDIOLIPIN IGA 4.9 APL Normal 0.0-21.9 [facility] Comment on above: Performed By: #### 1 0008 ####[facility] CARDIOLIPIN IGG 14.5 GPL Normal 0.0-22.9 [facility] Comment on above: Performed By: #### 1 0008 ####[facility] CARDIOLIPIN IGM 9.5 MPL Normal 0.0-10.9 [facility] Comment on above: Performed By: #### 1 0008 ####[address] CBC W/DIFFon 02-10-2017 Basophils Auto #/vol (Bld) 0.4 % Normal 0.0-2.0 [facility] Comment on above: Performed By: #### 5 0103 ####[facility] Eosinophils/100 WBC Auto (Bld) 2.5 % Normal 0.0-5.0 [facility] Comment on above: Performed By: #### 5 0103 ####[facility] Erythrocyte distribution width Auto Ratio (RBC) 14.5 % Normal 11.5-16.9 [facility] Comment on above: Performed By: #### 5 0103 ####[place] [address] [address] Hematocrit Auto Volume Fraction (Bld) 41.0 % Normal 36.0-48.0 [facility] Comment on above: Performed By: #### 5 0103 ####[facility] Hemoglobin mass conc (Bld) 13.6 g/dL Normal 12.0-15.0 [facility] Comment on above: Performed By: #### 5 0103 ####[facility] [place] [address], [facility] Lymphocytes/100 WBC Auto (Bld) 26.7 % Normal 20.0-40.0 [facility] Comment on above: Performed By: #### 5 0103 ####[facility] MCH Auto Entitic mass (RBC) 30.5 pg Normal 24.0-32.0 [facility] Comment on above: Performed By: #### 5 3 ####[facility] MCHC Auto mass conc (RBC) 33.2 g/dL Normal 32.0-36.0 [facility] Comment on above: Performed By: #### 3 ####[facility] [facility].[address] MCV Auto Entitic volume (RBC) 91.8 fL Normal 80.0-100.0 [facility] Comment on above: Performed By: #### 3 ####[facility] [facility] [place] [address], [facility] METHOD Normal RBC Morphology Normal [facility] Comment on above: Performed By: #### 5 3 ####[facility] [facility] [place] [address], [facility] MONOS 6.6 % Normal 2-8 [facility] Comment on above: Performed By: #### 5 3 ####[facility] [place] [address], [facility] Neutrophils/100 WBC Auto (Bld) 63.8 % Normal 50-70 [facility] Comment on above: Performed By: #### 102 ####[facility] [place] [address], [facility] PLAT CNT 310 Thou/mm3 Normal 100-400 [facility] Comment on above: Performed By: #### 102 ####[facility] [place] [address], [facility] RBC Auto #/vol (Bld) 4.47 mill/mm3 Normal 3.50-5.50 T [facility] Comment on above: Performed By: #### 102 ####[facility] [place] [address], [facility] WBC Auto #/vol (Bld) 7.6 Thou/mm3 Normal 4.0-10.0 Th e [facility] Comment on above: Performed By: #### 102 ####[facility] COMP METABOLIC PANELon 02-10 Albumin mass conc 4.3 g/dL Normal 3.5-5.7 [facility] Comment on above: Performed By: #### 0 0121 ####[facility] ALKALINE PHOSPH 89 IU/L Normal 34-104 [facility] Comment on above: Performed By: #### 0 0121 ####[facility] ALT enzyme act/vol 35 U/L Normal 7-52 [facility] Comment on above: Performed By: #### 0 0121 ####[facility] AST enzyme act/vol 27 U/L Normal 13-39 [facility] Comment on above: Performed By: #### 0 0121 ####[facility] [facility] [place] [address], [facility] Bilirubin mass conc 0.4 mg/dL Normal 0.3-1.0 [facility] Comment on above: Performed By: #### 0 0121 ####[facility] [place] [address], [facility] Calcium mass conc 9.9 mg/dL Normal 8.6-10.3 [facility] Comment on above: Performed By: #### 0 0121 ####[facility] [facility] [place] [address], [facility] Chloride molar conc 102 mmol/L Normal 98-107 [facility] Comment on above: Performed By: #### 0 0121 ####[facility] [facility] [place] [address], [facility] CO2 molar conc 25 mmol/L Normal 21-31 [facility] Comment on above: Performed By: #### 0 0121 ####[facility] [facility] [place] [address], [facility] Creatinine mass conc 0.87 mg/dL Normal 0.60-1.20 [facility] Comment on above: Performed By: #### 0 0121 ####[place] [address] [facility] [place] [address], [facility] GFR/1.73 sq M predicted among blacks MDRD vol rate/area (S/P/Bld) mL/min/{1.73_m2} Normal >60 [facility] Comment on above: Performed By: #### 0 0121 ####[facility] [facility] [place] [address], [facility] GFR/1.73 sq M predicted among non-blacks MDRD vol rate/area (S/P/Bld) mL/min/{1.73_m2} Normal >60 [facility] Comment on above: Performed By: #### 0 0121 ####[facility] [place] [address], [facility] Glucose mass conc 99 mg/dL Normal 70-100 [facility] Comment on above: Performed By: #### 0 0121 ####[facility] [place] [address], [facility] Potassium molar conc 4.1 mmol/L Normal 3.5-5.1 [facility] Comment on above: Performed By: #### 0 0121 ####[facility] [place] [address], [facility] Protein mass conc 7.5 g/dL Normal 6.0-8.3 [facility] Comment on above: Performed By: #### 0 0121 ####[facility] [place] [address], [facility] Sodium molar conc 136 mmol/L Normal 136-145 [facility] Comment on above: Performed By: #### 0 0121 ####[facility] [place] [address], [facility] Urea nitrogen mass conc 20 mg/dL Normal 7-25 [facility] Comment on above: Performed By: #### 0 0121 ####[facility] [place] [address], [facility] COMPLEMENT 3on 02-10-2017 COMPLEMENT 3 154 mg/dL High 79-152 [facility] Comment on above: Performed By: #### 1 0204, 24270, 80703 ####[facility] [place] [address], [facility] COMPLEMENT 4on 02-10-2017 COMPLEMENT 4 34 mg/dL Normal 16-38 [facility] Comment on above: Performed By: #### 1 0204, 93545, 11789 ####[facility] [place] [address], [facility] CREATININE URINE RANDOMon CREATININE 138.0 mg/dL Normal [facility] Comment on above: Result Comment: Ther e are no established reference values for random urine specimens Performed By: #### 4 1802, 20977 ####[facility] [place] [address], [facility] CRYOGLOBULIN ILon 02-10-2017 CRYOGLOBULIN 0 mg/dL Normal 0-10 [facility] IL Normal [facility] CYCLIC CITRULLINATED PEPTIDE AB [id number] 02-10-2017 CYCLIC CIT PEP 6 Units Normal 0-19 [facility] Comment on above: Result [...] results should bemonitored and testing repeated.Performed by Ayannah,[address] [place] [id number] ats.Embibe, Onel Connelly MD - Lab. Director HEPATITIS B CORE ANTIBODYon 02-10-2017 HEP B CORE AB NONREACTIVE Normal NONREACTIVE [facility] Comment on above: Performed By: #### 3 1397, 22440, 58243, 23596 ####[facility] [place] [address], [facility] HEPATITIS B SURFACE ANTIBODY QUANTon 02-10-2017 HEP B SURF AB 0.00 mIU/ml Normal [facility] Comment on above: Result Comment: INTE RPRETATION:NONREACTIVE<8.00 mIU/mLINDETERMINATE8.00 - 12.00 mIU/mLREACTIVE>12 mIU/mL Performed By: #### 1 0008 ####[facility].[address] HEPATITIS B SURFACE ANTIGEN QUALon 02-10-2017 HEP B SURF AG QUAL NONREACTIVE Normal NONREACTIVE [facility] Comment on above: Performed By: #### 1 0008 ####[facility].[address] HEPATITIS C ANTIBODYon 02-10 ANTI-HCV NONREACTIVE Normal NONREACTIVE [facility] [facility] Comment on above: Performed By: #### 3 1397, 93753, 56443, 85224 ####[facility].[address] RHEUMATOID FACTOR SERUMon RA <20 Normal 0-20 [facility] Comment on above: Performed By: #### 1 0204, 53989, 33670 ####[facility].[address] SJOGRENS ANTIBODIESon 2016 SS-A Negative Normal NEG,NEGATIVE,N eg [facility] Comment on above: Performed By: #### 1 0008 ####[facility].[address] SS-B Negative Normal NEG,NEGATIVE,N eg [facility] Comment on above: Performed By: #### 1 0008 ####[facility] [place] [address], [facility] T PROT UR Adam 02-10-2017 Protein mass conc 29.0 mg/dL Normal [facility] Comment on above: Result Comment: Ther e are no established reference values for random urine specimens Performed By: #### 4 8302, 44376 ####[facility].[address] TB QUANTIFERONon 02-10-2017 MITOGEN MINUS NIL >=10 Normal [facility] Comment on above: Performed By: #### 4 180, 35399 ####[facility].[address] NIL 0.03 IU/mL Normal [facility] Comment on above: Performed By: #### 4 180, 41164 ####[facility] [address], [facility] TB AG MINUS NIL 0.01 IU/mL Normal [facility] Comment on above: Performed By: #### 4 180, 58529 ####[address] TB ANTIGEN 0.04 IU/mL Normal [facility] Comment on above: Performed By: #### 4 180, 82392 ####[place] [address] [address] TB QUANTIFERON Negative Normal NEGATIVE [facility] Comment on above: Result [...] and LTBI(http://www.cdc.gov/nchstp/tb/). Performed By: #### 4 180, 40451 ####[facility] [place] [address].[address] URINALYSISon 02-10-2017 APPEARANCE CLOUDY Abnormal CLEAR [facility] Comment on above: Performed By: #### 1 0008 ####[facility] [place] [address], [facility] BACTERIA MOD Abnormal NONE SEEN [facility] Comment on above: Performed By: #### 1 0008 ####[facility] [place] [address], [facility] BILIRUBIN Negative Normal NEGATIVE [facility] Comment on above: Performed By: #### 1 0008 ####[facility] [place] [address], [facility] BLOOD Negative Normal NEGATIVE [facility] Comment on above: Performed By: #### 1 0008 ####[facility] [place] [address], [facility] COLOR YELLOW Normal YELLOW [facility] Comment on above: Performed By: #### 1 0008 ####[facility] EPIS MANY Abnormal FEW [facility] Comment on above: Performed By: #### 1 0008 ####[facility] [place] [address], [facility] GLUCOSE Negative Normal NEGATIVE [facility] Comment on above: Performed By: #### 1 0008 ####[facility] [place] [address], [facility] INR Coag RelTime (Bld) 0-2 Abnormal 0-0 [facility] Comment on above: Performed By: #### 1 0008 ####[facility] [place] [address], [facility] KETONE Negative Normal NEGATIVE [facility] Comment on above: Performed By: #### 1 0008 ####[facility] [address] LEUK DIMPLE LARGE Abnormal NEGATIVE [facility] Comment on above: Performed By: #### 1 0008 ####[facility] [address] MUCUS THREADS OCC Abnormal NONE SEEN [facility] Comment on above: Performed By: #### 1 0008 ####[facility] [address] NITRITE Negative Normal NEGATIVE [facility] Comment on above: Performed By: #### 1 0008 ####[address] PH 5.0 Normal 5.0-8.0 [facility] Comment on above: Performed By: #### 1 0008 ####[address] Protein mass conc Negative Normal NEGATIVE [facility] Comment on above: Performed By: #### 1 0008 ####[address] SPEC GRAV 1.020 Normal 1.015-1.020 [facility] Comment on above: Performed By: #### 1 0008 ####[place] [address] [address] WBC UA >100 Abnormal 0-0 [facility] Comment on above: Performed By: #### 1 0008 ####[address] CYTOLOGY SPECIMENon 02-02-20 CYTOLOGY SPEC Normal [facility] Comment on above: Order Comment: Comme nt: A. PERIESOPHAGEAL LESION FNA - CYTOLYT, 10 SLIDES Result Comment: Note : Specimens received on or after December:* Pathology and Cytology reports are located in [facility] in the folder labeled Medical Record Forms.* Reports are also in the Physician Portal.* Reports will be faxed to phycician's office.* For assistance locating reports call: * Willard Guadarrama [phone] * LAB [phone] Performed By: #### L CYTO ####[place] [id number] [address] Albumin [Mass/volume] in Ser um or Plasmaon 01-03-2017 Albumin [Mass/Vol] 3.3 g/dL 3.2-5.[address] [facility] Basophils Auto (Bld) [#/Vol] on 01-03-2017 Basophils (Bld) [#/Vol] 0.0 10*3/uL 0.0-0.2 [facility] Basophils/100 WBC Auto (Bld) on 01-03-2017 Basophils/100 WBC (Bld) 0.6 % . [facility] Creatinine and Glomerular fi ltration rate.predicted panel (S/P/Bld)on 01-03-2017 Creatinine [Mass/Vol] 1.00 mg/dL 0.44-1.03 [facility] Eosinophils Auto (Bld) [#/Vo l]on 01-03-2017 Eosinophils (Bld) [#/Vol] 0.1 10*3/uL 0.0-0.45 [facility] Eosinophils/100 WBC Auto (Bl d)on 01-03-2017 Eosinophils/100 WBC (Bld) 1.5 % . [facility] Erythrocyte distribution wid th Auto (RBC) [Ratio]on 01-03-2017 Erythrocyte distribution width (RBC) [Ratio] 14.5 % 11.9-15.3 [facility] Estimated glomerular filtrat ion rate (GFR) non- Americanon 01-03-2017 GFR/1.73 sq M.predicted among non-blacks MDRD (S/P/Bld) [Vol rate/Area] 56 mL/min/{1.73_m2} [facility] Globulin Calc (S) [Mass/Vol] on 01-03-2017 Globulin (S) [Mass/Vol] 3.6 g/dL [facility] Hematocrit Auto (Bld) [Volum e fraction]on 01-03-2017 Hematocrit (Bld) [Volume fraction] 36.3 % 34.0-46.4 [facility] Hemoglobin [Mass/volume] in Bloodon 01-03-2017 Hemoglobin (Bld) [Mass/Vol] 12.1 g/dL 11.8-15.4 [facility] Laboratory - Chemistry and C hemistry - challengeon 01-03-2017 GFR/1.73 sq M.predicted among blacks MDRD (S/P/Bld) [Vol rate/Area] mL/min/{1.73_m2} [facility] Comment on above: GFR estimated refere nce range: According to KDOQI guidelines, <60 ml/min/1.73m2 is sufficient to diagnose a patient with chronic kidney disease. Lymphocytes Auto (Bld) [#/Vo l]on 01-03-2017 Lymphocytes (Bld) [#/Vol] 2.1 10*3/uL 1.00-4.8 [facility] Lymphocytes/100 WBC Auto (Bl d)on 01-03-2017 Lymphocytes/100 WBC (Bld) 27.4 % . [facility] MCH Auto (RBC) [Entitic mass ]on 01-03-2017 MCH (RBC) [Entitic mass] 30.8 pg 24.7-34.3 [facility] MCHC Auto (RBC) [Mass/Vol]on 01-03-2017 MCHC (RBC) [Mass/Vol] 33.4 g/dL 32.0-35.0 [facility] MCV Auto (RBC) [Entitic vol] on 01-03-2017 MCV (RBC) [Entitic vol] 92.4 fL 80-100 [facility] Monocytes Auto (Bld) [#/Vol] on 01-03-2017 Monocytes (Bld) [#/Vol] 1.0 10*3/uL High 0.0-0.8 [facility] Monocytes/100 WBC Auto (Bld) on 01-03-2017 Monocytes/100 WBC (Bld) 12.7 % . [facility] Neutrophils Auto (Bld) [#/Vo l]on 01-03-2017 Neutrophils (Bld) [#/Vol] 4.4 10*3/uL 1.8-7.7 [facility] Neutrophils/100 WBC Auto (Bl d)on 01-03-2017 Neutrophils/100 WBC (Bld) 57.8 % . [facility] No Panel Informationon 01-03 Pharmacy Creatinine Clearance (Chem N/A [facility] Platelet mean volume Auto (B ld) [Entitic vol]on 01-03-2017 Platelet mean volume (Bld) [Entitic vol] 8.2 fL 6.3-10.7 [facility] Platelets Auto (Bld) [#/Vol] on 01-03-2017 Platelets (Bld) [#/Vol] 429 10*3/uL 150-450 [facility] Protein [Mass/volume] in Ser um or Plasmaon 01-03-2017 Protein [Mass/Vol] 6.9 g/dL 6.1-7.[address] [facility] RBC Auto (Bld) [#/Vol]on RBC (Bld) [#/Vol] 3.93 10*6/uL 3.60-5.00 [facility] Serum or plasma alanine briggs otransferase measurement without P-5'-P (enzymatic activion 01-03-2017 ALT No additional P-5'-P [Catalytic activity/Vol] 37 U/L 1060 [facility] Serum or plasma albumin/glob ulin mass ratioon 01-03-2017 Albumin/Globulin [Mass ratio] 0.9 {ratio} [facility] Serum or plasma alkaline bita sphatase measurement (enzymatic activity/volume)on 01-03-2017 ALP [Catalytic activity/Vol] 89 U/L 32-92 [facility] Serum or plasma aspartate am inotransferase measurement (enzymatic activity/volume)on 01-03-2017 AST [Catalytic activity/Vol] 30 U/L 10-42 [facility] Serum or plasma calcium katheryn urement (mass/volume)on 01-03-2017 Calcium [Mass/Vol] 9.4 mg/dL 8.2-10.[address] [facility] Serum or plasma chloride claudia surement (moles/volume)on 01-03-2017 Chloride [Moles/Vol] 98 mmol/L 95-114 [facility] Serum or plasma glucose katheryn urement (mass/volume)on 01-03-2017 Glucose [Mass/Vol] 107 mg/dL High 70-[address] [facility] Comment on above: ADA recommended refe rence rangeRandom Glucose Reference Range is dependent on time and content of last meal. Glucose of more than 200 mg/dL in a nonstressed, ambulatory subject supports the diagnosis of Diabetes Mellitus. Serum or plasma potassium me asurement (moles/volume)on 01-03-2017 Potassium [Moles/Vol] 4.1 mmol/L 3.5-5.1 [facility] Serum or plasma sodium measu rement (moles/volume)on 01-03-2017 Sodium [Moles/Vol] 139 mmol/L 136-[address] [facility] Serum or plasma total biliru bin measurement (mass/volume)on 01-03-2017 Bilirubin [Mass/Vol] 0.3 mg/dL 0.3-1.2 [facility] Serum or plasma total carbon dioxide measurement (moles/volume)on 01-03-2017 CO2 [Moles/Vol] 29.5 mmol/L 22.0-30.0 [facility] Serum or plasma urea nitroge n measurement (mass/volume)on 01-03-2017 Urea nitrogen [Mass/Vol] 12 mg/dL 9-23 [facility] WBC Auto (Bld) [#/Vol]on WBC (Bld) [#/Vol] 7.6 10*3/uL 3.8-11.[address] [facility] No Panel Information [facility] Vital Signs Date Time Vital Sign Value Performing Clinician Ana rosa 01-30-2024 10: Body height 167.64 cm MD Christian Steiner Work Phone: [facility] 01-30-2024 10: Body mass index (BMI) [Ratio] 26.3 kg/m2 MD Christian Steiner Work Phone: [facility] 01-30-2024 10: Body temperature 97.3 [degF] MD Christian Steiner Work Phone: [facility] 01-30-2024 10:17 Body weight 73.93 kg MD Christian Steiner Work Phone: [facility] 01-30-2024 10:17-0400 Heart rate 86 /min MD Christian Steiner Work Phone: [facility] 01-30-2024 10:17-0400 Respiratory rate 16 /min MD Christian Steiner Work Phone: [facility] 01-30-2024 10:17-0400 SaO2% (BldA) [Mass fraction] 96 % MD Christian Steiner Work Phone: [facility] 07-14-2023 11:29-0400 Body height 157.5 cm Lynsey Saldana MD Work Phone: [facility] 07-14-2023 11:29-0400 Body mass index (BMI) [Ratio] 30 kg/m2 Lynsey Saldana MD Work Phone: [facility] 07-14-2023 11:29-0400 Body weight 74.39 kg Lynsey Saldana MD Work Phone: [facility] 07-14-2023 11:29-0400 Diastolic blood pressure 84 mm[Hg] Lynsey Saldana MD Work Phone: [facility] 07-14-2023 11:29-0400 Heart rate 79 /min Lynsey Saldana MD Work Phone: [facility] 07-14-2023 11:29-0400 Systolic blood pressure 134 mm[Hg] Lynsey Saldana MD Work Phone: [facility] 01-21-2023 09:58-0400 Body temperature 97.2 [degF] MD Christian Steiner Work Phone: [facility] 01-21-2023 09:58-0400 Body weight 76.65 kg MD Christian Steiner Work Phone: [facility] 01-21-2023 09:58-0400 Diastolic blood pressure 78 mm[Hg] MD Christian Steiner Work Phone: [facility] 01-21-2023 09:58-0400 Heart rate 71 /min MD Christian Steiner Work Phone: [facility] 01-21-2023 09:58-0400 Respiratory rate 16 /min MD Christian Steiner Work Phone: [facility] 01-21-2023 09:58-0400 SaO2% (BldA) [Mass fraction] 98 % MD Christian Steiner Work Phone: [facility] 01-21-2023 09:58-0400 Systolic blood pressure 141 mm[Hg] MD Christian Steiner Work Phone: [facility] 01-21-2022 10:03-0400 Body height 167.64 cm MD Christian Steiner [facility] 01-21-2022 10:03-0400 Body weight 82.64 kg MD Christian Steiner [facility] 01-21-2022 10:03-0400 Diastolic blood pressure 78 mm[Hg] MD Christian Steiner [facility] 01-21-2022 10:03-0400 Heart rate 98 /min MD Christian Steiner [facility] 01-21-2022 10:03-0400 Respiratory rate 18 /min MD Christian Steiner [facility] 01-21-2022 10:03-0400 SaO2% (BldA) [Mass fraction] 98 % MD Christian Steiner [facility] 01-21-2022 10:03-0400 Systolic blood pressure 122 mm[Hg] MD Christian Steiner [facility] 01-21-2021 10:29-0400 Body temperature 98 [degF] MD Christian Steiner [facility] Encounters Encounter Date Encounter Type Care Provider Facility Start: 06-11-2024 End: 06-11-2024 ambulatory Andrius Vytautas Giedraitis Facility:[facility] Start: 05-14-2024 End: 05-14-2024 ambulatory Andrius Vytautas Giedraitis MD Facility:[facility] Start: 04-18-2024 End: 04-18-2024 ambulatory CK Elizabeth CARLOS Facility:[facility] Start: 04-18-2024 End: 04-18-2024 Patient [...] Registered Recurring MD Tigre Steiner [facility] Work Phone: Start: 01-30-2024 End: 01-30-2024 ambulatory MD Christian Steiner Work Phone: [facility] Work Phone: Start: 01-30-2024 End: 01-30-2024 Patient encounter procedure MD Christian Steiner [facility] Work Phone: Start: 12-19-2023 End: 12-19-2023 [...] Start: 09-05-2023 End: 09-05-2023 ambulatory ALESHA SCHULTE Facility:[facility] Start: 09-05-2023 End: 09-05-2023 Patient [...] (Primary Dx) Start: 07-14-2023 End: 07-14-2023 ambulatory [facility] Start: 07-14-2023 End: 07-14-2023 Office outpatient visit 15 minutes Lynsey Saldana MD Work Phone: [facility] Comment on above: Lymphedema (Primary Dx) Start: 05-18-2023 Chart abstracting Jr. Todd Boudreaux DO Work Phone: [facility] Start: 05-18-2023 End: 05-18-2023 ambulatory TODD ANDREW Not Available Start: 01-21-2023 End: 01-21-2023 ambulatory MD Christian Steiner Work Phone: [facility] Work Phone: Start: 01-21-2023 End: 01-21-2023 Registered Recurring MD Christian Steiner Work Phone: [facility] Work Phone: Start: 01-17-2023 [...] Facility:[facility] Start: 03-19-2022 End: 03-19-2022 ambulatory MARGA MATRINEZ . Facility:[facility] Start: 03-09-2022 Telephone encounter Alesha Schulte MD Work Phone: Ophthalmology Comment on above: Appointment Start: 03-04-2022 End: 04-04-2022 ambulatory COVARRUBIAS H FAWWAD Facility:[facility] Start: 02-02-2022 End: 03-03-2022 ambulatory COVARRUBIAS H FAWWAD Facility:[facility] Start: 01-21-2022 End: 01-21-2022 ambulatory MD Christian Steiner [facility] Work Phone: Start: 01-21-2022 End: 01-21-2022 Registered Recurring MD Christian Steiner [facility] Start: 01-03-2022 End: 02-01-2022 [...] End: 09-29-2017 Patient encounter EMELY DOMENICO Facility:[facility] Start: 08-18-2017 Patient encounter procedure Christian Steiner Facility:[id number] Start: 03-31-2017 End: 04-01-2017 Patient encounter EMELY DOMENICO Facility:[facility] Start: 02-10-2017 End: 02-11-2017 Patient encounter EMELY DOMENICO Facility:[facility] Start: 01-28-2017 Ambulatory Pal Des[place] Procedure Procedure Detail Performing Clinician [...] Screening mammograph y of left breast MD Chrisitan Steiner Work Phone: Start: 07-05-2022 End: 07-05-2022 [...] Office Visit [facility] [address] [place] [id number] Jr. Todd Boudreaux C, DO [address] [address] [facility] Start: 01-22-2025 Screening for malign ant neoplasm of breast Mammogram Screening [facility] Start: 10-22-2024 End: 10-22-2024 Patient encounter procedure 10/22/2024 10:45 AM EDT Office Visit [facility] [address] [place] [address] Alesha Schulte MD [address] [place], [place] [id number] RTC: 6 Months Full OCT ON/GCA + HVF 24-2 [facility] Comment on above: RTC: [address] ON/GCA + HVF 24-2 [facility] Start: 07-13-2024 Adult BMI Screening Adult BMI Screen ing [facility] Start: 07-13-2024 Tobacco Screening Tobacco Screening [facility] Start: 07-12-2024 End: 07-12-2024 Patient encounter procedure 07/12/2024 8:30 AM EDT Office Visit [facility] [address] [place] [address] Lynsey Saldana MD [address], [address] [address] [facility] Start: 04-18-2024 End: 04-18-2024 Patient encounter procedure 04/18/2024 10:30 AM EST Office Visit [facility] [address] [place] [address] Ck Gonzalez, OD [address] [place] [address] Return in about 6 months (around 04/18/2024) for VATA with TH. Ophthalmology Comment on above: Return in about 6 mo nths (around 04/18/2024) for VATA with TH. Start: 04-09-2024 End: 04-09-2024 Patient encounter procedure 04/09/2024 2:30 PM EST Office Visit [facility] [address] [place] [address] Dino George, PA [address] [facility] [address] [place] [address] Acute pain of right shoulder (Primary Dx) [facility] Comment on above: Acute pain of right shoulder (Primary Dx) Start: 04-04-2024 Advance Directive Discussion Advance Directive Discussion [facility] Start: 01-21-2024 Screening for malign ant neoplasm of breast Mammogram Screening [facility] Start: 01-16-2024 End: 01-16-2024 Patient encounter procedure 01/16/2024 10:15 AM EDT Office Visit [facility] [address] [place] [address] Dino George PA [address] [facility] [address] [place] [address] [facility] Start: 12-19-2023 End: 12-19-2023 Patient encounter procedure 12/19/2023 10:15 AM EDT Office Visit [facility] [address] [place] [address] Dino George, PA [address] [facility] [address] [place] [address] Acute pain of right knee (Primary Dx); History of total knee replacement, right [facility] Comment on above: Acute pain of right knee (Primary Dx); History of total knee replacement, right Start: 12-04-2023 Covid-19 Vaccine ( season) Covid-19 Vaccine ( season) [facility] Start: 12-04-20[address] Influenza vaccination [facility] Start: 10-17-2023 End: 10-17-2023 Patient encounter procedure 10/17/2023 1:15 PM EDT Office Visit [facility] [address] [place] [address] Alesha Schulte MD [address] [place], [place] [id number] Return for VATA. Ophthalmology Comment on above: Return for VATA. Start: 09-05-2023 End: 09-05-2023 Patient encounter procedure 09/05/2023 9:45 AM EDT Office Visit [facility] [address] [place] [address] Alesha Schulte MD [address] [place] [address] Return for slt od on a amonday next available Ophthalmology Comment on above: Return for slt od on a amonday next available Start: 05-18-2023 End: 05-18-2023 Patient encounter procedure 05/18/2023 10:15 AM EST Office Visit [facility] [address] [place] [phone] Jr. Todd Boudreaux C, DO [address] [address] [facility] Start: 04-04-2023 Advance Directive Discussion Advance Directive Discussion [facility] Start: 04-04-2023 Behavioral Health Screening Behavioral Health Screening [facility] Start: 02-12-2023 Diabetes Screening Diabetes Screenin g [facility] Start: 12-03-2022 Covid-19 Vaccine ( season) Covid-19 Vaccine ( season) [facility] Start: 12-03-2022 Influenza vaccination [address] [facility] Start: 04-04-2022 ADVANCE DIRECTIVE DISCUSSION ADVANCE DIRECTIVE DISCUSSION [facility] Start: 04-04-2022 DEPRESSION ASSESSMENT DEPRESSION ASS ESSMENT [facility] Start: 12-03-2021 Influenza vaccination INFLUENZA (#1) [facility] Start: 04-04-2021 ADVANCE DIRECTIVE DISCUSSION ADVANCE DIRECTIVE DISCUSSION [facility] Start: 04-04-2021 DEPRESSION ASSESSMENT DEPRESSION ASS ESSMENT [facility] Start: 2017 BONE DENSITY BONE DENSITY [facility] Start: 2017 Bone Density Screening Bone Density Screening [facility] Start: 2017 Fall Risk Screening Fall [facility] Screen [facility] Start: 2017 PNEUMOCOCCAL: 65+ (1 - PCV) PNEUMOCOCCAL: 65+ (1 - PCV) [facility] Start: 2017 Screening for osteoporosis Bone Density Screening [facility] Start: 11-13-2014 Administration of varicella zoster vaccine Zoster (Shingles) Vaccine (2 of 3) [facility] Start: 11-13-2014 SHINGRIX VACCINE (2 of 3) SHINGRIX VACCINE (2 of 3) [facility] Start: 2012 RSV Vaccine (1 - 1-d ose 60+ series) RSV Vaccine (1 - 1-dose 60+ series) [facility] Start: 2012 RSV Vaccine (1 - Ris k 60-74 years 1-dose series) RSV Vaccine (1 - Risk 60-74 years 1-dose series) [facility] Start: 2002 SHINGRIX VACCINE (1 of 2) SHINGRIX VACCINE (1 of 2) [facility] Start: 1997 COLOGUARD (FIT-DNA) COLOGUARD (FIT-D NA) [facility] Start: 1997 Colonoscopy COLONOSCOPY [facility] Start: 1997 COLORECTAL CANCER SCREENING COLORECTAL CANCER SCREENING [facility] Start: [address] COLONOGRAPHY [facility] Start: 1997 DIABETES SCREEN DIABETES SCREEN [facility] [facility] Start: 1997 Diabetes Screening Diabetes Screenin g [facility] Start: 1997 FECAL OCCULT BLOOD FECAL OCCULT BLOO D [facility] Start: 1997 Lipid 1996 panel - S maalia or Plasma Lipid Screening [facility] Start: 1997 Lipid panel Lipid Screening [facility] Start: 1997 LIPID SCREEN LIPID SCREEN [facility] Start: 1997 Screening for malign ant neoplasm of colon [facility] Start: [address] [facility] Start: 1992 Mammography [facility] Start: 1982 Zoledronic acid therapy ALPHA- 1 ANTITRYPSIN DEFICIENCY SCREENING [facility] Start: 1971 DTaP,Tdap and Td Vaccines (1 - Tdap) DTaP,Tdap and Td Vaccines (1 - Tdap) [facility] Start: 1971 Urine microalbumin profile [facility] Start: 1970 Adult BMI Follow Up Plan Adult BMI Follow Up Plan [facility] Start: 1970 ANNUAL PCP TEAM JOURNEYMAN GLAZIER LYLE DISEASE VISIT ANNUAL PCP TEAM CHRONIC DISEASE VISIT [facility] Start: 1970 Anxiety Screening Anxiety Screening [facility] Start: 1970 Depression Screening Depression Scre ening [facility] Start: 1970 [facility] Start: 1970 Hepatitis C screening Hepatitis C Sc [facility] Start: 1970 SPIROMETRY SPIROMETRY [facility] Start: 1964 Depression Screening Depression Scre ening [facility] Start: 1952 COVID-19 VACCINE (#1) COVID-19 VACCI NE (#1) [facility] Start: 1950 Medicare Annual Well ness Visit Medicare Annual Wellness Visit [facility] MG Breast - left Screening [facility] MG Breast - left Screening [facility] MG Breast - left Screening [facility] XR Hip - right 3 Views XR hip ri ght 2 or 3 views Imaging Routine Acute right hip pain 12/19/2023 10:12 AM EDT [facility] Work Phone: [facility] [place] [facility] Immunizations Immunization Date Immunization Notes Care Provider Fa [facility] 01-05-2020 influenza (HD-IIV4) vaccine, age 65+ yr, high dose, quadrivalent, PF (FLUZONE HIGH-DOSE) Alesha Schulte MD Work Phone: [facility] 01-05-2020 influenza virus vacc ine, unspecified formulation Alesha Schulte MD Work Phone: [facility] 01-25-2018 pneumococcal polysaccharide vaccine, 23 valent Alesha Schulte MD Work Phone: [facility] 10-20-2017 pneumococcal conjuga te vaccine, 13 valent Alesha Schulte MD Work Phone: [facility] 09-17-2015 pneumococcal polysaccharide vaccine, 23 valent Alesha Schulte MD Work Phone: [facility] 06-09-2015 influenza, injectabl e, quadrivalent, preservative free Alesha Schulte MD Work Phone: [facility] 09-18-2014 zoster vaccine, live Maggieapur denzel Schulte MD Work Phone: [facility] 09-18-2014 zoster vaccine, unspecified formulation Lynsey Saldana MD Work Phone: [facility] 01-30-2009 novel influenza-H1N1 -09, preservative-free, injectable Alesha Schulte MD Work Phone: [facility] Payers Date Payer Category Payer Private Health Insurance [employer] [id number] 2018 Unknown [id number]. [id number] 2017 Medicare [id number]. [id number] 2016 Self-pay [id number] 1959 Medicare [id number] 1959 Unknown [id number] 1952 Unknown [id number] 2.16.840.1.132466.3.579.2. 356 1952 Unknown [id number] 2.16.840.1.427827.3.579.2. 356 1952 Unknown [id number] 2.16.840.1.317424.3.579.2. 356 1952 Unknown [id number] 2.16.840.1.922621.3.579.2. 593 1952 Unknown [id number] 2.16.840.1.853198.3.579.2. 593 1952 Unknown [id number] 2.16.840.1.020716.3.579.2. 593 1952 Unknown [id number] 2.16.840.1.685752.3.579.2. 593 1952 Unknown [id number] 2.16.840.1.534809.3.579.2. 593 1952 Unknown [id number] 2.16.840.1.397150.3.579.2. 593 1952 Unknown [id number] 2.16.840.1.805368.3.579.2. 593 1952 Unknown [id number] 2.16.840.1.884155.3.579.2. 593 1952 Unknown [id number] 2.16.840.1.468168.3.579.2. 593 1952 Unknown [id number] 2.16.840.1.461327.3.579.2. 593 1952 Unknown [id number] 2.16.840.1.324438.3.579.2. 593 1952 Unknown [id number] 2.16.840.1.764144.3.579.2. 593 1952 Unknown [id number] 2.16.840.1.978097.3.579.2. 593 1952 Unknown [id number] 2.16.840.1.310421.3.579.2. 593 1952 Unknown [id number] 2.16.840.1.696190.3.579.2. 1286 1952 Unknown [id number] 2.16.840.1.967788.3.579.2. 1259 1952 Unknown [id number] 2.16.840.1.749526.3.579.2. 1259 1952 Unknown [id number] 2.16.840.1.076069.3.579.2. 1259 1952 Unknown [id number] 2.16.840.1.627124.3.579.2. 1259 1952 Unknown [id number] 2.16.840.1.137494.3.579.2. 1259 1952 Unknown [id number] 2.16.840.1.764193.3.579.2. 1259 1952 Unknown [id number] 2.16.840.1.305263.3.579.2. 196 1952 Unknown [id number] 2.16.840.1.054300.3.579.2. 196 Unknown [id number] Unknown [id number] 2.16.840.1.482070.3.579.2. 531 Social History Date Type Detail Facility Start: 01-21-2021 End: 03-25-2022 Tobacco smoking status WAIS Never smoked tobacco (finding) [facility] Start: 1950 Sex Assigned At Female [facility] Start: 02-27-2019 End: 03-25-2022 Tobacco use and exposure Smokeless tobacco non-user [facility] Start: 09-18-2019 End: 04-18-2024 Alcohol intake Current drinker of alcohol (finding) [facility] Start: 09-18-2019 History SDOH Alcohol Frequency 2 [facility] Start: 09-18-2019 History SDOH Alcohol Std Drinks 1 [facility] Start: 02-27-2019 Alcohol Comment a glass of wine once every 2-3 months [facility] Start: 1950 Sex Assigned At Not on file [facility] Start: 02-27-2019 End: 05-15-2020 History of Social function [facility] Start: 02-27-2019 End: 05-15-2020 Alcohol Use Disorder Identification Test - Consumption [AUDIT-C] [facility] Frequency of Alcohol Consumption Monthly or less [facility] Start: 09-25-2022 End: 04-09-2024 Alcohol intake Lifetime non-drinker (finding) [facility] Start: 09-25-2022 Alcohol Comment caffeine intake: 2-3 cups per day [facility] Start: 09-14-2022 Gender identity Identifies as female gender (finding) [facility] Start: 09-14-2022 Sexual orientation Heterosexual (finding) [facility] Start: 07-14-2023 Alcoholic beverage intake Ex-drinker (finding) [facility] Start: 01-17-2020 Alcohol Comment very rare [facility] Medical Equipment Procedure Code Equipment Code Equipment Origin al Text Equipment Identifier Dates Lens Acrysof Iq Toric 6mm +24.5 Diopter +6 Cylinder 0 D Biconvex Acrylic 13 - [id number] Start: 03-14-2019 Comment on above: Description: -0.57 Lens Acrysof Iq Toric Stableforce 6mm 0 D +22.5 Diopter +2.25 Cylinder - [id number] Start: 03-21-2019 Comment on above: Description: -0.80 Istent Inject - [id number] Start: 03-14-2019 Istent Inject - [id number] Start: 03-21-2019 Cmnt Bn Bio 40gm Rpl [id number] - Sna - [id number] Start: 02-12-2020 Ins Artc 3-5 E-F 11mm Kn Rt Ps - Sna - [id number]/ SNA, [id number] FDA Start: 02-12-2020 Cmpt Fem 5 Kn Rt Persona Strl - Sna - [id number] Start: 02-12-2020 Cmpt Ptlr 32mm Persona Alply - Sna - [id number] Start: 02-12-2020 Bsplt Tib 5d E K n Rt Stm - Sna - [id number] Start: 02-12-2020 Clinical Notes 01-04-2017 to 04-18-2024 Ck Gonzalez, OD - 04/18/2024 11:06 AM BETO Grissom - 04/09/2024 2:30 PM BETO Grissom - 12/19/2023 10:15 AM Alesha Benítez MD - 10/17/2023 1:32 PM EDT Note Date & Type Note Facility 04-18-2024 Note HNO ID: [id number] Author: CK GONZALEZ OD Service: ? Author Type: TEXTILE ARTIST Type: Progress Notes Filed: 04/18/2024 11:22 Note [...] Gonzalez, OD April 18, 2024 11:21 AM [facility] 04-18-2024 History of Present illness Narrative Tmax: [...] 2024 11:21 AM documented in this encounter [facility] 04-09-2024 History of Present illness Narrative Images from the original note were not included. HISTORY OF PRESENT ILLNESS: EST PT Myla Pollack is an 73 y.o. @ female. (EST PT) NEW COMPLAINT, (R) SHOULDER DISCOMFORT. SYMPTOMS FOR ABOUT 2 MONTHS, NO KNOWN INJURY. XRAYS 03/08/24 @ [facility] MRI, (R) SHOULDER & C-SPINE 04/02/24 @ [facility] INTERMITTENT RT DIFFUSE RT SHOULDER, ARM, [...] Use: Not At Risk (02/27/2019) Received from [facility], [facility] AUDIT-C Frequency of Alcohol Consumption: Monthly or [...] requiring urgent evaluation. documented in this encounter [facility] 12-19-2023 History of Present illness Narrative [...] Use: Not At Risk (02/27/2019) Received from [facility], [facility] AUDIT-C Frequency of Alcohol Consumption: Monthly or [...] requiring urgent evaluation. documented in this encounter [facility] 10-17-2023 Note HNO ID: [id number] Author: ALESHA SCHULTE MD Service: ? Author [...] TH IOL both eyes - Doing well Alesha Villa MD, have confirmed and edited as necessary [...] components. Alesha Schulte MD October 17, 2023 [facility] 10-17-2023 History of Present illness Narrative Tmax: [...] TH IOL both eyes - Doing well Alesha Villa MD, have confirmed and edited as necessary [...] October 17, 2023 documented in this encounter [facility] 09-05-2023 Note Date of Procedure 09/05/2023 [facility] Protocol Safety Checklist Sign In: A moment [...] Post-procedure follow up management communicated. No specimens. [facility] 09-05-2023 Note HNO ID: [id number] Author: ALESHA SCHULTE MD Service: ? Author [...] VATA IOL both eyes - Doing well IAlesha [...] components. Alesha Schulte MD September 05, 2023 [facility] 09-05-2023 History of Present illness Narrative Tmax: [...] September 05, 2023 documented in this encounter [facility] 07-27-2023 Note Date of Procedure 07/27/2023. [employer] Department Manager: pd. Reliability Right Eye Good. Left Eye Good. Interpretation Right Eye Normal. Left Eye Normal. [facility] 07-27-2023 Note Date of Procedure 07/27/2023. [employer] Department Manager: JF. Quality Right Eye Good. Left Eye Good. NFL Interpretation Right Eye Superior loss. Left Eye Normal. [facility] 07-27-2023 Note HNO ID: [id number] Author: ALESHA SCHULTE MD Service: ? Author [...] agree with all of its relevant components. [facility] 07-27-2023 History of Present illness Narrative Tmax: [...] relevant components. documented in this encounter [facility] 07-14-2023 Evaluation + Plan note Associated Problem(s): Lymphedema Compression therapy leg elevation and follow up in the clinic in 1 year. [facility] 07-14-2023 Miscellaneous Notes Associated Problem(s): Lymphedema Compression therapy leg elevation and follow up in the clinic in 1 year. documented in this encounter [facility] 07-14-2023 History of Present illness Narrative Images [...] 1 tablet by mouth in the morning. gzyonnzgcz-vighaetpjtzvk-ypjv (FIORICET, ESGIC) 50-325-40 mg per tablet Take [...] the evening. 5 mg M-W-F, 7.5 mg Aat-Tkzx-Twuya-Sat . anastrozole (ARIMIDEX) 1 mg chemo tablet [...] hematuria Asthma COPD (chronic obstructive pulmonary disease) ([facility]) Headache Hyperlipidemia Osteoarthritis right knee Pulmonary embolism ([facility]) Thrush top partial Vasculitis ([facility]) Visual impairment readers Past Surgical History: Past [...] Performed by Todd Boudreaux Jr., DO at [facility] Social and Family History: Social History [...] Lynsey Saldana MD, TREVIN, RPVI, FSVS, FACS [facility] This note was created with the assistance of a speech recognition program. While intending to generate a timely document that accurately reflects the content of the visit, no guarantee can be provided that every grammatical or spelling mistake has been or will be identified or corrected. Thank you for your understanding. documented in this encounter [facility] 01-17-2023 History of Present illness [...] and decide about SLT. IOL both eyes IAlesha MD, have confirmed and edited as [...] relevant components. documented in this encounter [facility] 07-05-2022 History of Present illness Narrative Tmax: [...] relevant components. documented in this encounter [facility] 03-19-2022 Note PROCEDURE: XR WRIST [...] GLC suspect. documented in this encounter [facility] 01-21-2022 Progress note Note Date/Time January 21, 2022 10:15[facility] [address] Hem/Onc Follow Up Note - OP Signed Patient: Myla Pollack MR#: [id number] : 1950 Acct:[id number] Age/Sex: 71 / F Type: REG RCR [...] of anastrozole, [facility] now [facility] to return to oncology). We will arrange her annual follow-ups after her annual mammograms in January of each year. She also requested refill of breast prosthesis and mastectomy bra. No breast exam due to telephone visit. No skin changes or breast tenderness. No recent f/u by stripping cutter and winder in [place]--was reported to have vasculitis 4 years ago--now resolved but still has some mild erythema and swelling of left greater than right leg without pain. Receives Anastrozole due to weak WY expression--no significant myalgias/arthralgias or hot flashes. No [...] pT1c, N0, M0. Tumor was ER negative, WY weak, and HER-2 nonamplified. She underwent right mastectomy at [place] in 02/2015. Completed dose dense AC X4 [...] years of adjuvant therapy. 3. Evaluated by stripping cutter and winder in [place] (does not believe she had vasculitis)--no recent [...] inflammatory. She was referred to pulmonary at [place]. Ground glass opacities resolved on PET/CT 08/2017. [...] of Therapies: 1. Right breast mastectomy at [facility] (Dr. Rodriguez) in 02/2015. 2. Completed dose [...] nodes positive, pT1c, N0, M0. ER negative, WY weak, and HER-2 nonamplified. (1) Breast cancer, right Qualifiers: Estrogen receptor status: negative Patient sex: female 1. 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 ER negative, WY weak, and HER-2 nonamplified. 2. She underwent mastectomy at [place] in 02/2015. Completed dose dense AC X4 and Taxol X 12 in August 2015. 3. 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 Anastrozole was resumed in 03/2017 4. Saw stripping cutter and winder in [place] for persistent leg pain and swelling (he [...] inflammatory. She was referred to pulmonary at [place]. --Followup PET/CT 08/2017 showed resolution of prior [...] for coordination of care (as documented) and rsgh-zk-smku counseling of patient and/or family. Dictated By: Claire Duran APRN DD/ [id number] Signed By: <Electronically signed by CHIDI Duran> 01/21/22 [address] [facility] Work Phone: 1(612) 672-179010-20-2021 Progress note Author Kacie Garay [facility] January 21, 2021 8:25pm Note Date/Time January 21, 2021 1 0:34am [facility] at [address] [address] Hem/Onc Follow Up Note - OP Signed Patient: Myla Pollack MR#: [id number] : 1950 Acct:[id number] Age/Sex: 70 / F Type: REG RCR [...] of anastrozole, we will now follow [facility] patient wishes to return to oncology). We will arrange her annual follow-ups after her annual mammograms in January of each year. She also requested refill of breast prosthesis and mastectomy bra. No breast exam due to telephone visit. No skin changes or breast tenderness. No recent f/u by stripping cutter and winder in [place]--was reported to have vasculitis 4 years ago--now resolved but still has some mild erythema and swelling of left greater than right leg without pain. Receives Anastrozole due to weak WY expression--no significant myalgias/arthralgias or hot flashes. No [...] pT1c, N0, M0. Tumor was ER negative, WY weak, and HER-2 nonamplified. She underwent right mastectomy at [place] in 02/2015. Completed dose dense AC X4 [...] years of adjuvant therapy. 3. Evaluated by stripping cutter and winder in [place] (does not believe she had vasculitis)--no recent [...] inflammatory. She was referred to pulmonary at [place]. Ground glass opacities resolved on PET/CT 08/2017. [...] of Therapies: 1. Underwent right mastectomy at [place] in 02/2015. 2. Completed dose dense AC [...] nodes positive, pT1c, N0, M0. ER negative, WY weak, and HER-2 nonamplified. (1) Breast cancer, right Qualifiers: Estrogen receptor status: negative Patient sex: female 1. 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 ER negative, WY weak, and HER-2 nonamplified. 2. She underwent mastectomy at [place] in 02/2015. Completed dose dense AC X4 and Taxol X 12 in August 2015. 3. 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 Anastrozole was resumed in 03/2017 4. Saw stripping cutter and winder in [place] for persistent leg pain and swelling (he [...] inflammatory. She was referred to pulmonary at [place]. --Followup PET/CT 08/2017 showed resolution of prior [...] for coordination of care (as documented) and ajtg-xo-dzxn counseling of patient and/or family. Dictated By: Kacie Garay MD DD/ [id number] Signed By: <Electronically signed by MD Kacie Garay> 01/21/212024 [facility] Work Phone: 1(151) 727-960004-19-2021 Progress note Author Kacie Garay [facility] July 21, 2020 11:38am Note Date/Time July 21, 2020 9:3 9am [facility] [place] [address] Hem/Onc Follow Up Note - OP Signed Patient: Myla Pollack MR#: [id number] : 1950 Acct:[id number] Age/Sex: 70 / F Type: REG RCR Copies to: Kenyetta Reynolds MD~ Subjective Date/Time of Service: Date of Service: 07/21/2020 Time of Service: 09:36 Chief Complaint: Patient has consented to doxy visit for 4 month follow up visitfor breast cancer and to review bone densitometry test. HPI: Patient had video visit (doxy.ct) today for 4-month follow-up and review of [...] of anastrozole, we will now follow [facility] patient wishes to return to oncology). We will arrange her annual follow-ups after her annual mammograms in January of each year. She also requested refill of breast prosthesis and mastectomy bra. No breast exam due to telephone visit. No skin changes or breast tenderness. No recent f/u by stripping cutter and winder in [place]--was reported to have vasculitis 4 years ago--now resolved but still has some mild erythema and swelling of left greater than right leg without pain. Receives Anastrozole due to weak WY expression--no significant myalgias/arthralgias or hot flashes. No [...] pT1c, N0, M0. Tumor was ER negative, WY weak, and HER-2 nonamplified. She underwent right mastectomy at [place] in 02/2015. Completed dose dense AC X4 [...] years of adjuvant therapy. 3. Evaluated by stripping cutter and winder in [place] (does not believe she had vasculitis)--no recent [...] inflammatory. She was referred to pulmonary at [place]. Ground glass opacities resolved on PET/CT 08/2017. [...] of Therapies: 1. Underwent right mastectomy at [place] in 02/2015. 2. Completed dose dense AC [...] nodes positive, pT1c, N0, M0. ER negative, WY weak, and HER-2 nonamplified. (1) Breast cancer, right Qualifiers: Estrogen receptor status: negative Patient sex: female 1. 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 ER negative, WY weak, and HER-2 nonamplified. 2. She underwent mastectomy at [place] in 02/2015. Completed dose dense AC X4 and Taxol X 12 in August 2015. 3. 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 Anastrozole was resumed in 03/2017 4. Saw stripping cutter and winder in [place] for persistent leg pain and swelling (he [...] inflammatory. She was referred to pulmonary at [place]. --Followup PET/CT 08/2017 showed resolution of prior [...] for coordination of care (as documented) and kcdv-xg-tnyz counseling of patient and/or family. Dictated By: Kacie Garay MD DD/ [id number] Signed By: <Electronically signed by MD Kacie Garay> 07/21/20 [address] [facility] Work Phone: 1([phone]) 302-380912-09-2020 Progress note Author Kacie Garay [facility] March 12, 2020 2:49pm Note Date/Time March 12, 2020 9 :56am [facility] [place] [address] Hem/Onc Follow Up Note - OP Signed Patient: Myla Pollack MR#: [id number] : 1950 Acct:[id number] Age/Sex: 69 / F Type: REG RCR [...] or breast tenderness. No recent f/u by stripping cutter and winder in [place]--was reported to have vasculitis 4 years ago--now resolved but still has some mild erythema and swelling of left greater than right leg without pain. Receives Anastrozole due to weak WY expression--no significant myalgias/arthralgias or hot flashes. No [...] pT1c, N0, M0. Tumor was ER negative, WY weak, and HER-2 nonamplified. She underwent right mastectomy at [place] in 02/2015. Completed dose dense AC X4 [...] of extended adjuvant therapy. 3. Evaluated by stripping cutter and winder in [place] (does not believe she had vasculitis)--no recent [...] inflammatory. She was referred to pulmonary at [place]. Ground glass opacities resolved on PET/CT 08/2017. [...] of Therapies: 1. Underwent right mastectomy at [place] in 02/2015. 2. Completed dose dense AC [...] warfarin 7.5 - 10 mg PO DIRECTED 12/13/17 [History Confirmed 03/12/20] flaxseed oil 1,000 mg [...] lymph nodes positive, pT1c, N0,M0. ER negative, WY weak, and HER-2 nonamplified. 2. She underwent mastectomy at [place] in 02/2015. Completed dose dense AC X4 and Taxol X 12 in August 2015. 3. 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 Anastrozole was resumed in 03/2017 4. Saw stripping cutter and winder in [place] for persistent leg pain and swelling (he [...] inflammatory. She was referred to pulmonary at [place]. --Followup PET/CT 08/2017 showed resolution of prior [...] for coordination of care (as documented) and isno-ox-fsac counseling of patient and/or family. Dictated By: Kacie Garay MD DD/ 0954 Signed By: <Electronically signed by MD Kacie Garay> 03/12/20 1449 [facility] Work Phone: [phone] Progress note Author Kacie Garay [facility] September 05, 2019 1:07pm Note Date/Time September 05, 2019 10:57 am [facility] [place] [address] Hem/Onc Follow Up Note - OP Signed Patient: Myla Pollack MR#: [id number] : 1950 Acct:[id number] Age/Sex: 69 / F Type: REG RCR [...] or breast tenderness. No recent f/u by stripping cutter and winder in [place]--was reported to have vasculitis 3 years ago--now resolved but still has some mild erythema and swelling of left greater than right leg without pain. Receives Anastrozole due to weak WY expression--no significant myalgias/arthralgias or hot flashes. No [...] pT1c, N0, M0. Tumor was ER negative, WY weak, and HER-2 nonamplified. She underwent right mastectomy at [place] in 02/2015. Completed dose dense AC X4 and Taxol X 12 in August 2015. 2. Anastrozole with calcium and vitamin D started in August 2015. Calcium and vitamin D discontinued 07/2016 Anastrozole stopped in 01/2017 when she developed vasculitis (erythematous rash over legs) although no proven association at this time. Anastrozole was resumed in 03/2017 3. Evaluated by stripping cutter and winder in [place] (does not believe she had vasculitis)--no recent [...] inflammatory. She was referred to pulmonary at [place]. Ground glass opacities resolved on PET/CT 08/2017. [...] of Therapies: 1. Underwent right mastectomy at [place] in 02/2015. 2. Completed dose dense AC [...] nodes positive, pT1c, N0, M0. ER negative, WY weak, and HER-2 nonamplified. 2. She underwent mastectomy at [place] in 02/2015. Completed dose dense AC X4 and Taxol X 12 in August 2015. 3. 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 Anastrozole was resumed in 03/2017 4. Saw stripping cutter and winder in [place] for persistent leg pain and swelling (he [...] inflammatory. She was referred to pulmonary at [place]. --Followup PET/CT 08/2017 showed resolution of prior [...] vasculitis but per second opinion from a stripping cutter and winder and security expert in [place] this is not vasculitis. They told her [...] for coordination of care (as documented) and croo-zv-kxeo counseling of patient and/or family. Dictated By: Kacie Garay MD DD/ 1059 Signed By: <Electronically signed by MD Kacie Garay> 09/05/19 1304 [facility] Work Phone: [phone] 463-865611-21-2019 History of Past illness Narrative* Problem Noted Date Resolved Date Combined forms of age-related cataract of both e yes 02/22/2019 03/21/2019 documented as of this encounter (statuses as of 03/11/2022) [facility]11-21-2019 History of Past illness Narrative* Problem Noted Date Resolved Date Combined forms of age-related cataract of both e yes 02/22/2019 03/21/2019 documented as of this encounter (statuses as of 07/05/2022) [facility]-21-2019 History of Past illness Narrative* Problem Noted Date Diagnosed Date Resolved Date Combined forms of age-relate d cataract of both eyes 02/22/2019 03/21/2019 documented as of this encounter (statuses as of 01/17/2023) [facility]-21-2019 Progress note Author Kacie Garay [facility] January 22, 2019 9:28pm Note Date/Time January 22, 2019 1 0:40am [facility] [place] [address] Hem/Onc Follow Up Note - OP Signed Patient: Myla Pollack MR#: [id number] : 1950 Acct:[id number] Age/Sex: 68 / F Type: REG RCR [...] or breast tenderness. [facility] reported to have vasculitis 2 1/2 years ago--now resolved. Receives Anastrozole due to weak WY expression--no significant myalgias/arthralgias or hot flashes. No bowel or bladder complaints. No interval changes in medical history. We reviewed DEXA scan showing normal bone density 07/17/2018. DIAGNOSIS: 1. 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 Tumor was ER negative, WY weak, and HER-2 nonamplified. She underwent right mastectomy at [place] in 02/2015. Completed dose dense AC X4 and Taxol X 12 in August 2015. 2. Anastrozole with calcium and vitamin D started in August 2015. Calcium and vitamin D discontinued 07/2016 Anastrozole stopped in 01/2017 when she developed vasculitis (erythematous rash over legs) although no proven association at this time. Anastrozole was resumed in 03/2017 3. Evaluated by stripping cutter and winder in [place] (does not believe she had vasculitis)--no recent [...] inflammatory. She was referred to pulmonary at [place]. Ground glass opacities resolved on PET/CT 08/2017. [...] of Therapies: 1. Underwent right mastectomy at [place] in 02/2015. 2. Completed dose dense AC [...] for annual due 01/20 Copies to: MD Moshen Degroot MD Hoy, Douglas M MD~ Left [...] nodes positive, pT1c, N0, M0. ER negative, WY weak, and HER-2 nonamplified. 2. She underwent mastectomy at [place] in 02/2015. Completed dose dense AC X4 and Taxol X 12 in August 2015. 3. 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 Anastrozole was resumed in 03/2017 4. Saw stripping cutter and winder in [place] for persistent leg pain and swelling (he [...] inflammatory. She was referred to pulmonary at [place]. --Followup PET/CT 08/2017 showed resolution of prior [...] vasculitis but per second opinion from a stripping cutter and winder and security expert in [place] this is not vasculitis. They told her [...] for coordination of care (as documented) and jwep-dt-tkmm counseling of patient and/or family. Dictated By: Kacie Garay MD DD/ 1039 Signed By: <Electronically signed by MD Kacie Garay> 01/22/19 4695 [facility] Work Phone: [phone] Progress note Author Kacie Garay [facility] July 19, 2018 8:36pm Note Date/Time July 19, 2018 10: 48am [facility] [place] [address] Hem/Onc Follow Up Note - OP Signed Patient: Myla Pollack MR#: [id number] : 1950 Acct:[id number] Age/Sex: 68 / F Type: REG RCR [...] pT1c, N0, M0. Tumor was ER negative, WY weak, and HER-2 nonamplified. She underwent right mastectomy at [place] in 02/2015. Completed dose dense AC X4 and Taxol X 12 in August 2015. 2. Anastrazole with calcium and vitamin D started in August 2015, Calcium and vitamin D discontinued 07/2016 Anastrozole stopped in 01/2017 when she developed vasculitis (erythematous rash over legs) although no proven association at this time. Anastrozole was resumed in 03/2017 3. Evaluated by stripping cutter and winder in [place] (does not believe she had vasculitis)--no recent [...] inflammatory. She was referred to pulmonary at [place]. Ground glass opacities resolved on PET/CT 08/2017. [...] or breast tenderness. [facility] reported to have vasculitis 2 years ago--now resolved. Receives Anastrozole due to weak WY expression--no significant myalgias/arthralgias or hot flashes. No bowel or bladder complaints. No interval changes in medical history. We reviewed DEXA scan showing normal bone density 07/17/2018. - Summary of Therapies Summary of Therapies: 1. Underwent right mastectomy at [place] in 02/2015. 2. Completed dose dense AC [...] scan 07/17/2018 reviewed--normal. Annual bilateral mammography at [place] 01/2018--ordered 6 month f/u mammogram prior to next f/u. Assessment and Plan (1) Breast cancer, right Qualifiers: Estrogen receptor status: negative Patient sex: female 1. 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 ER negative, WY weak, and HER-2 nonamplified. 2. She underwent mastectomy at [place] in 02/2015. Completed dose dense AC X4 and Taxol X 12 in August 2015. 3. Anastrazole with calcium and vitamin D started in August 2015, Calcium and vitamin D discontinued 07/2016 Anastrozole stopped in 01/2017 when she developed vasculitis although there is no proven association at this time. Anastrozole was resumed in 03/2017 4. Seeing stripping cutter and winder in [place] for persistent leg pain and swelling (he [...] inflammatory. She was referred to pulmonary at [place]. --Followup PET/CT 08/2017 showed resolution of prior [...] unless new symptoms arise. Annual mammogram at [place] prior to next followup. DEXA normal--f/u in [...] vasculitis but per second opinion from a stripping cutter and winder and security expert in [place] this is not vasculitis. They told her [...] for coordination of care (as documented) and jozj-yd-ujoj counseling of patient and/or family. Dictated By: Kacie Garay MD DD/ 1048 Signed By: <Electronically signed by MD Kacie Garay> 07/19/182035 [facility] Work Phone: [phone] Progress note Author Kacie Garay [facility] January 18, 2018 8:17pm Note Date/Time January 17, 2018 3 :44pm [facility] [place] [address] Hem/Onc Follow Up Note - OP Signed Patient: Myla Pollack MR#: [id number] : 1950 Acct:[id number] Age/Sex: 67 / F Type: REG RCR [...] pT1c, N0, M0. Tumor was ER negative, WY weak, and HER-2 nonamplified. She underwent right mastectomy at [place] in 02/2015. Completed dose dense AC X4 and Taxol X 12 in August 2015. 2. Anastrazole with calcium and vitamin D started in August 2015, Calcium and vitamin D discontinued 07/2016 Anastrazole stopped in 01/2017 when she developed vasculitis although thereis no proven association at this time. Anastrozole was resumed in 03/2017 3. Now follows with rhematologist in [place] (does not believe she had vasculitis). 4. [...] inflammatory. She was referred to pulmonary at [place]. Ground glass opacities resolved on PET/CT 08/2017. 5. A focus of increased uptake in the liver of uncertain significance was also identified. On MRI of the liver there was no abnormality found. HPI: Patient returns to the clinic for transfer of care from Dr. Steiner. No changes on self breast exam. No skin changes or breast tenderness. She is seeing a stripping cutter and winder in [place]--was reported to have vasculitis of legs about a yearago. Receives Anastrozole due to weak WY expression--no significant myalgias/arthralgias or hot flashes. No bowel or bladder complaints. - Summary of Therapies Summary of Therapies: 1. Underwent right mastectomy at [place] in 02/2015. 2. Completed dose dense AC [...] % (Auto) 27.4 % (.) 01/03/17 17:45 [place] % (Auto) 12.7 % (.) 01/03/17 17:45 Eos % (Auto) 1.5 % (.) 01/03/17 17:45 Baso % (Auto) 0.6 % (.) 01/03/17 17:45 Neut # (Auto) 4.4 x10E3/uL (1.8-7.7) 01/03/17 17:45 Lymph # (Auto) 2.1 x10E3/uL (1.00-4.8) 01/03/17 17:45 [place] # (Auto) 1.0 x10E3/uL (0.0-0.8) H 01/03/17 [...] where applicable. 01/11/2018--left diagnostic mammogram reviewed from [facility] Left breast stable with scattered benign appearing calcifications and benign appearing lymph nodes. BIRADS 2--Benign findings. Assessment and Plan (1) Breast cancer, right Qualifiers: Estrogen receptor status: negative Patient sex: female Status: Chronic 1. 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 ER negative, WY weak, and HER-2 nonamplified. 2. She underwent mastectomy at [place] in 02/2015. Completed dose dense AC X4 and Taxol X 12 in August 2015. 3. Anastrazole with calcium and vitamin D started in August 2015, Calcium and vitamin D discontinued 07/2016 Anastrazole stopped in 01/2017 when she developed vasculitis although there is no proven association at this time. Anastrozole was resumed in 03/2017 4. Seeing stripping cutter and winder in [place] for persistent leg pain and swelling (he [...] inflammatory. She was referred to pulmonary at [place]. Followup PET/CT 08/2017 showed resolution of prior [...] vasculitis but per second opinion from a stripping cutter and winder and security expert in [place] this is not vasculitis. They told her [...] for coordination of care (as documented) and slye-zt-luzw counseling of patient and/or family. 25 - 35 minutes Dictated By: Kacie Garay MD DD/ 1543 Signed By: <Electronically signed by Kacie Garay MD> 01/18/182016 [facility] Work Phone: [phone] Progress note Author Mohsen Steiner [facility] August 18, 2017 3:25pm Note Date/Time August 18, 2017 3:23p [facility] [place] [address] Hem/Onc Follow Up Note - OP Signed Patient: yMla Pollack MR#: [id number] : 1950 Acct:[id number] Age/Sex: 67 / F Type: REG RCR [...] % (Auto) 27.4 % (.) 01/03/17 17:45 [place] % (Auto) 12.7 % (.) 01/03/17 17:45 Eos % (Auto) 1.5 % (.) 01/03/17 17:45 Baso % (Auto) 0.6 % (.) 01/03/17 17:45 Neut # (Auto) 4.4 x10E3/uL (1.8-7.7) 01/03/17 17:45 Lymph # (Auto) 2.1 x10E3/uL (1.00-4.8) 01/03/17 17:45 [place] # (Auto) 1.0 x10E3/uL (0.0-0.8) H 01/03/17 [...] N0, M0. 2. Tumor was ER negative, WY weak, and HER-2 nonamplified. 3. She underwent mastectomy at [place] in 02/2015. Completed dose dense AC X4 [...] inflammatory. She was referred to pulmonary at [place] 8. A focus of increased uptake in [...] vasculitis but per second opinion from a stripping cutter and winder and security expert in [place] this is not vasculitis. They told her [...] for coordination of care (as documented) and rkic-mn-mfrc counseling of patient and/or family. Dictated By: Mohsen Steiner MD DD/ 151 Signed By: <Electronically signed by Mohsen Steiner MD> 08/18/17 1525 [facility] Work Phone: [phone] Progress note Author Mohsen Steiner [facility] July 21, 2017 3:44pm Note Date/Time July 21, 2017 3:4 0pm [facility] [place] [id number] Hem/Onc Follow Up Note - OP Signed Patient: Myla Pollack MR#: [id number] : 1950 Acct:[id number] Age/Sex: 67 / F Type: REG RCR Copies to: Pinky Og DO~ Subjective Date/Time of Service: Date of Service: 07/21/2017 Time of Service: 15:39 Chief Complaint: Patient here for four month follow up appointment with labs. HPI: Patient returns to the clinic for a pre-scheduled follow-up visit that reports that 1. She saw a security expert and stripping cutter and winder in [place]. They do not think that she has [...] % (Auto) 27.4 % (.) 01/03/17 17:45 [place] % (Auto) 12.7 % (.) 01/03/17 17:45 Eos % (Auto) 1.5 % (.) 01/03/17 17:45 Baso % (Auto) 0.6 % (.) 01/03/17 17:45 Neut # (Auto) 4.4 x10E3/uL (1.8-7.7) 01/03/17 17:45 Lymph # (Auto) 2.1 x10E3/uL (1.00-4.8) 01/03/17 17:45 [place] # (Auto) 1.0 x10E3/uL (0.0-0.8) H 01/03/17 [...] N0, M0. 2. Tumor was ER negative, WY weak, and HER-2 nonamplified. 3. She underwent mastectomy at [place] in 02/2015. Completed dose dense AC X4 [...] inflammatory. She was referred to pulmonary at [place] 8. A focus of increased uptake in [...] vasculitis but per second opinion from a stripping cutter and winder and security expert in [place] this is not vasculitis. They told her [...] for coordination of care (as documented) and boyo-wx-xhpk counseling of patient and/or family. Dictated By: Mohsen Steiner MD DD/ 1539 Signed By: <Electronically signed by Mohsen Steiner MD> 07/21/17 1541 [facility] Work Phone: [phone] Progress note Author Mohsen tSeiner [facility] March 25, 2017 11:28am Note Date/Time March 25, 2017 11:27am [facility] [place] [address] Hem/Onc Follow Up Note - OP Signed Patient: Myla Pollack MR#: [id number] : 1950 Acct:[id number] Age/Sex: 66 / F Type: REG RCR Copies to: Pinky Og DO~ Subjective Date/Time of Service: Date of Service: 03/25/2017 Time of Service: 11:25 Chief Complaint: Patient is here to review MRI report and to follow up after seeing the remodeler. HPI: Patient returns to the clinic for a pre-scheduled follow-up visit that reports that 1. She was seen at [facility] rheumatology, and from there she was referred to a security expert in [place]. No final diagnosis has yet been made. 2. She had an MRI of the liver 3. She was seen by pulmonary in [facility] Details: All systems reviewed & no [...] % (Auto) 27.4 % (.) 01/03/17 17:45 [place] % (Auto) 12.7 % (.) 01/03/17 17:45 Eos % (Auto) 1.5 % (.) 01/03/17 17:45 Baso % (Auto) 0.6 % (.) 01/03/17 17:45 Neut # (Auto) 4.4 x10E3/uL (1.8-7.7) 01/03/17 17:45 Lymph # (Auto) 2.1 x10E3/uL (1.00-4.8) 01/03/17 17:45 [place] # (Auto) 1.0 x10E3/uL (0.0-0.8) H 01/03/17 [...] N0, M0. 2. Tumor was ER negative, WY weak, and HER-2 nonamplified. 3. She underwent mastectomy at [place] in 02/2015. Completed dose dense AC X4 [...] pulmonary (by her preference to a new remodeler at [facility]) 8. A focus of increased uptake in the liver of quasi-significance was also identified. On MRI of the liver there was no abnormality found (2) Pulmonary embolism Status: Chronic She is currently on warfarin (3) Vasculitis Status: Acute She is being seen by rheumatology at [facility]. (4) Lung nodules Status: Resolved Her [...] for coordination of care (as documented) and lhjb-iz-svte counseling of patient and/or family. Dictated By: Mohsen Steiner MD DD/ Signed By: <Electronically signed by Mohsen Steiner MD> 03/25/17 1128 [facility] Work Phone: [phone] 211-702512-13-2017 Progress note Author Mohsen Steiner [facility] March 16, 2017 3:11pm Note Date/Time March 16, 2017 2:57pm [facility] [place] [address] Hem/Onc Follow Up Note - OP Signed Patient: Myla Pollack MR#: [id number] : 1950 Acct:[id number] Age/Sex: 66 / F Type: REG RCR Copies to: Pinky Og DO~ Subjective Date/Time of Service: Date of Service: 03/16/2017 Time of Service: 14:55 Chief Complaint: Patient is here for review of [employer] reports. HPI: Patient returns to the clinic for a pre-scheduled follow-up visit that reports that 1. She was seen at [facility] rheumatology, and from there she was referred to a security expert in [place]. No final diagnosis has yet been made [...] % (Auto) 27.4 % (.) 01/03/17 17:45 [place] % (Auto) 12.7 % (.) 01/03/17 17:45 Eos % (Auto) 1.5 % (.) 01/03/17 17:45 Baso % (Auto) 0.6 % (.) 01/03/17 17:45 Neut # (Auto) 4.4 x10E3/uL (1.8-7.7) 01/03/17 17:45 Lymph # (Auto) 2.1 x10E3/uL (1.00-4.8) 01/03/17 17:45 [place] # (Auto) 1.0 x10E3/uL (0.0-0.8) H 01/03/17 [...] N0, M0. 2. Tumor was ER negative, WY weak, and HER-2 nonamplified. 3. She underwent mastectomy at [place] in 02/2015. Completed dose dense AC X4 [...] pulmonary (by her preference to a new remodeler at [facility]) 8. A focus of increased uptake in the liver of quasi-significance was also identified. MRI of the liver has been requested (2) Pulmonary embolism Status: Chronic She is currently on warfarin (3) Vasculitis Status: Acute She was seen by rheumatology at [facility]. (4) Lung nodules Status: Acute Her [...] for coordination of care (as documented) and luti-ux-hfgx counseling of patient and/or family. Dictated By: Mohsen Steiner MD DD/ [id number] Signed By: <Electronically signed by Mohsen Steiner MD> 03/16/17 3792 [facility] Work Phone: [phone] Progress note Author Mohsen Steiner [facility] February 28, 2017 2:51pm Note Date/Time February 28, 2017 2:29pm [facility] [place] [address] Hem/Onc Follow Up Note - OP Signed Patient: Myla Pollack MR#: [id number] : 1950 Acct:[id number] Age/Sex: 66 / F Type: REG RCR Copies to: Pinky Og DO~ Subjective Date/Time of Service: Date of Service: 02/28/2017 Time of Service: 14:26 Chief Complaint: Patient here to follow up after rheumatology referral. HPI: Patient returns to the clinic for a pre-scheduled follow-up visit that reports that 1. She was seen at [facility] rheumatology ROS Details: All systems reviewed [...] % (Auto) 27.4 % (.) 01/03/17 17:45 [place] % (Auto) 12.7 % (.) 01/03/17 17:45 Eos % (Auto) 1.5 % (.) 01/03/17 17:45 Baso % (Auto) 0.6 % (.) 01/03/17 17:45 Neut # (Auto) 4.4 x10E3/uL (1.8-7.7) 01/03/17 17:45 Lymph # (Auto) 2.1 x10E3/uL (1.00-4.8) 01/03/17 17:45 [place] # (Auto) 1.0 x10E3/uL (0.0-0.8) H 01/03/17 [...] N0, M0. 2. Tumor was ER negative, WY weak, and HER-2 nonamplified. 3. She underwent mastectomy at [place] in 02/2015. Completed dose dense AC X4 [...] She was seen by rheumatology at [facility]. The ordered some initial workup that [...] for coordination of care (as documented) and qsme-wf-oonq counseling of patient and/or family. Dictated By: Mohsen Steiner MD DD/ 1424 Signed By: <Electronically signed by Mohsen Steiner MD> 02/28/17 9694 [facility] Work Phone: [phone] Progress note Author Mohsen Steiner [facility] February 03, 2017 9:03am Note Date/Time February 03, 2017 9 :01am [facility] [address] [address] Hem/Onc Follow Up Note - OP Signed Patient: Myla Pollack MR#: [id number] : 1950 Acct:[id number] Age/Sex: 66 / F Type: REG RCR [...] % (Auto) 27.4 % (.) 01/03/17 17:45 [place] % (Auto) 12.7 % (.) 01/03/17 17:45 Eos % (Auto) 1.5 % (.) 01/03/17 17:45 Baso % (Auto) 0.6 % (.) 01/03/17 17:45 Neut # (Auto) 4.4 x10E3/uL (1.8-7.7) 01/03/17 17:45 Lymph # (Auto) 2.1 x10E3/uL (1.00-4.8) 01/03/17 17:45 [place] # (Auto) 1.0 x10E3/uL (0.0-0.8) H 01/03/17 [...] N0, M0. 2. Tumor was ER negative, WY weak, and HER-2 nonamplified. 3. She underwent mastectomy at [place] in 02/2015. Completed dose dense AC X4 [...] Status: Acute She was referred to the [facility] but her appointment is in April [...] for coordination of care (as documented) and ehri-tf-amos counseling of patient and/or family. Dictated By: Mohsen Steiner MD DD/ 0858 Signed By: <Electronically signed by Mohsen Steiner MD> 02/03/17 0903 [facility] Work Phone: [phone] Progress note Author Mohsen Steiner [facility] January 12, 2017 10:59pm Note Date/Time January 12, 2017 1 0:57pm [facility] [place] [address] Hem/Onc Follow Up Note - OP Signed Patient: Myla Pollack MR#: [id number] : 1950 Acct:[id number] Age/Sex: 66 / F Type: REG RCR Copies to: Pinky Og DO~ Subjective Date/Time of Service: Date of Service: 01/12/2017 Time of Service: 22:52 Chief Complaint: Patient is here to follow up PET scan results. HPI: Patient returns to the clinic for a pre-scheduled follow-up visit that reports that 1. She was diagnosed with vasculitis at [facility] 2. She was found to have pulmonary [...] % (Auto) 27.4 % (.) 01/03/17 17:45 [place] % (Auto) 12.7 % (.) 01/03/17 17:45 Eos % (Auto) 1.5 % (.) 01/03/17 17:45 Baso % (Auto) 0.6 % (.) 01/03/17 17:45 Neut # (Auto) 4.4 x10E3/uL (1.8-7.7) 01/03/17 17:45 Lymph # (Auto) 2.1 x10E3/uL (1.00-4.8) 01/03/17 17:45 [place] # (Auto) 1.0 x10E3/uL (0.0-0.8) H 01/03/17 [...] N0, M0. 2. Tumor was ER negative, WY weak, and HER-2 nonamplified. 3. She underwent mastectomy at [place] in 02/2015. Completed dose dense AC X4 [...] We will be referring her to the [facility] for evaluation and management. (4) Lung [...] for coordination of care (as documented) and [id number] counseling of patient and/or family. Dictated By: Mohsen Steiner MD DD/ 51 Signed By: <Electronically signed by Mohsen Steiner MD> 01/12/17 2259 [facility] Work Phone: [phone] 329-442610-04-2017 Progress note Author Mohsen Steiner [facility] January 05, 2017 4:45pm Note Date/Time January 05, 2017 4: 38pm [facility] at [address] [address] Hem/Onc Follow Up Note - OP Signed Patient: Myla Pollack MR#: [id number] : 1950 Acct:[id number] Age/Sex: 66 / F Type: REG RCR cc: Pinky Og DO~ Subjective Date/Time of Service: Date of Service: 01/05/2017 Time of Service: 16:37 Chief Complaint: Patient is here for follow up to CT scan patient has been having ongoing vascular problems. HPI: Patient returns to the clinic for a pre-scheduled follow-up visit that reports that 1. She was diagnosed with vasculitis at [facility] 2. She was found to have pulmonary [...] % (Auto) 27.4 % (.) 01/03/17 17:45 [place] % (Auto) 12.7 % (.) 01/03/17 17:45 Eos % (Auto) 1.5 % (.) 01/03/17 17:45 Baso % (Auto) 0.6 % (.) 01/03/17 17:45 Neut # (Auto) 4.4 x10E3/uL (1.8-7.7) 01/03/17 17:45 Lymph # (Auto) 2.1 x10E3/uL (1.00-4.8) 01/03/17 17:45 [place] # (Auto) 1.0 x10E3/uL (0.0-0.8) H 01/03/17 [...] N0, M0. 2. Tumor was ER negative, WY weak, and HER-2 nonamplified. 3. She underwent mastectomy at [place] in 02/2015. Completed dose dense AC X4 [...] that in November, she was admitted at [facility] and was diagnosed with vasculitis affecting the [...] for coordination of care (as documented) and [id number]-iw-[id number] counseling of patient and/or family. Dictated By: Mohsen Steiner MD DD/ 1637 Signed By: <Electronically signed by Mohsen Steiner MD> 01/05/17 1645 [facility] Work Phone: [phone] 129-545310-03-2017 Progress note Author Jefferson Rice [facility] January 04, 2017 11:22am Note Date/Time January 04, 2017 11 :22am [facility] [place] [address] Hem/Onc Follow Up Note - OP Signed Patient: Myla Pollack MR#: [id number] : 1950 Acct:[id number] Age/Sex: 66 / F Type: REG RCR [...] for coordination of care (as documented) and ukwf-vi-fveu counseling of patient and/or family. Dictated By: Jefferson Rice MD DD/ 1120 Signed By: <Electronically signed by Jefferson Rice MD> 01/04/17 1122 [facility] Work Phone: Evaluation note* Diagnosis Onset Date Resolution Status Breast cancer, right chronic Encounter for monitoring anastrozole therapy chronic Osteoarthritis of knees, bilateral chronic Pulmonary embolism chronic Screening for osteoporosis c hronic Cutaneous leukocytoclastic angiitis resolved History of hypercalcemia res olved Hypercalcemia resolved Lung nodules resolved Neuropathy resolved Vasculitis resolved [facility] Work Phone: Evaluation note* Diagnosis Primary open-angle glaucoma, bilateral, mild stage- Primary [facility] Primary open-angle glaucoma, bilateral, mild stage- Primary [facility] Diagnosis Primary open-angle glaucoma, bilateral, mild stage- Primary [facility] Diagnosis Primary open-angle glaucoma, bilateral, mild stage- Primary [facility] Diagnosis Onset Date Resolution Status Breast cancer, right chronic Screening for osteoporosis c hronic Neuropathy resolved Breast cancer, right chronic Encounter for monitoring anastrozole therapy chronic Osteoarthritis of knees, bilateral chronic Pulmonary embolism chronic Screening for osteoporosis c hronic Cutaneous leukocytoclastic angiitis resolved History of hypercalcemia res olved Hypercalcemia resolved Lung nodules resolved Neuropathy resolved Vasculitis resolved [facility] Work Phone: evaluation note* Diagnosis Acute right hip pain- Primary Trochanteric bursitis of right hip Gluteal tendonitis of right buttock [facility] Acute pain of right shoulder- Primary Neck pain Cervicalgia documented in this encounter [facility]* Diagnosis Primary open-angle glaucoma, bilateral, mild stage- Primary PCO (posterior capsular opacification), bilateral After-cataract, unspecified Dry eye syndrome of bilateral lacrimal glands Tear film insufficiency, unspecified [facility]* Diagnosis Lymphedema- Primary Other noninfectious lymphedema documented [facility] filedocumented in this encounter [facility] Author Lynsey Land [facility] January 30, 2024 11:05am Note Date/Time January 30, 2024 1 0:16am [facility] [place] [address] Cancer Center Note Signed Patient: Myla Pollack MR#: [id number] : 1950 Acct:[id number] Age/Sex: 73 / F Type: DEP AMB Date of Service: 01/30/24 Copies to: Kenyetta Reynolds MD~ Assessment & Plan A/P (1) Breast cancer, right: Plan: Estrogen receptor status: negative Patient sex: female 1. 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 ER negative, WY weak, and HER-2 nonamplified. 2. She underwent mastectomy at [place] in 02/2015. Completed dose dense AC X4 and Taxol X 12 in August 2015. 3. 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 Anastrozole was resumed in 03/2017 4. Saw stripping cutter and winder in [place] for persistent leg pain and swelling (he [...] inflammatory. She was referred to pulmonary at [place]. --Followup PET/CT 08/2017 showed resolution of prior [...] changes on self breast exam. Screening left [id number]/19/2023 without recurrence. No systemic symptoms of recurrence, [...] of anastrozole, we will now follow [facility] wishes to return to [facility]ology). We will arrange her annual follow-ups after her annual mammograms in January of each year. She also requested refill of breast prosthesis and mastectomy bra. No breast exam due to telephone visit. No skin changes or breast tenderness. No recent f/u by stripping cutter and winder in [place]--was reported to have vasculitis 4 years ago--now resolved but still has some mild erythema and swelling of left greater than right leg without pain. Receives Anastrozole due to weak WY expression--no significant myalgias/arthralgias or hot flashes. No [...] pT1c, N0, M0. Tumor was ER negative, WY weak, and HER-2 nonamplified. She underwent right mastectomy at [place] in 02/2015. Completed dose dense AC X4 [...] years of adjuvant therapy. 3. Evaluated by stripping cutter and winder in [place] (does not believe she had vasculitis)--no recent [...] inflammatory. She was referred to pulmonary at [place]. Ground glass opacities resolved on PET/CT 08/2017. [...] of Therapies: 1. Right breast mastectomy at [facility] (Dr. Rodriguez) in 02/2015. 2. Completed dose [...] hx: breast cancer and go over mamogram. [facility] Social History Social History (Updated 01/30/24 @ [...] <Electronically signed by CHIDI Land> 01/30/24 1105 [facility] Work Phone: Summary Purpose Family History No [...] Inj/Asp: R greater trochanteric bursa Dino George, [place] [address] [facility] [address] [place] [address] Referral ID Status Reason Start Date Expiration Date V isits Requested Visits Authorized [id number] Authorized 12/19/2023 06/16/2024 1 1 Additional Source Comments INFORMATION SOURCE (unrecogn ized section and content) DATE CREATED AUTHOR 09/27/2017 [facility] DATE CREATED AUTHOR AUTHOR'S ORGANIZ ATION 01/18/2018 [facility] DATE CREATED AUTHOR AUTHOR'S ORGANIZ ATION 08/05/2018 [facility] DATE CREATED AUTHOR AUTHOR'S ORGANIZ ATION 09/10/2022 [facility] DATE CREATED AUTHOR AUTHOR'S ORGANIZ ATION 07/15/2023 [facility] DATE CREATED AUTHOR AUTHOR'S ORGANIZ ATION 01/31/2024 [facility] DATE CREATED AUTHOR AUTHOR'S ORGANIZ ATION 04/15/2024 [facility] DATE CREATED AUTHOR AUTHOR'S ORGANIZ ATION 04/21/2024 [facility] DATE CREATED AUTHOR AUTHOR'S ORGANIZ ATION 06/18/2024 [facility] Care Teams (unrecognized sec tion [...] Kenyetta Reynolds MD Primary Care Provider Active Environmental Systems Coordinator Relationship Specialty Start Date End Date Kenyetta Reynolds MD [address] [place] [address] PCP - General Family Medicine 03/14/19 Environmental Systems Coordinator Relationship Specialty Start Date End Date Kenyetta Reynolds MD PCP - General Family Medicine 03/14/19 Environmental Systems Coordinator Relationship Specialty Start Date End Date Kenyetta Reynolds MD PCP - General Family Medicine 03/14/19 Environmental Systems Coordinator Relationship Specialty Start Date End Date Kenyetta Reynolds MD [address] [place] [address] PCP - General Family Medicine 09/15/22 Environmental Systems Coordinator Relationship Specialty Start Date End Date Kenyetta Reynolds MD PCP - General Family Medicine 03/14/19 Environmental Systems Coordinator Relationship Specialty Start Date End Date Kenyetta Reynolds MD PCP - General Family Medicine 03/14/19 Environmental Systems Coordinator Relationship Specialty Start Date End Date Kenyetta Reynolds MD PCP - General Family Medicine 03/14/19 Environmental Systems Coordinator Relationship Specialty Start Date End Date Kenyetta Reynolds MD [address] [place] [facility] [address] PCP - General Family Medicine 09/15/22 Environmental Systems Coordinator Relationship Specialty Start Date End Date Kenyetta Reynolds MD [address] [place] [facility] [address] PCP - General Family Medicine 09/15/22 Environmental Systems Coordinator Relationship Specialty Start Date End Date Kenyetta Reynolds MD [address] [place] [facility] [address] PCP - General Family Medicine 09/15/22 Environmental Systems Coordinator Relationship Specialty Start Date End Date Kenyetta Reynolds MD [address] [place] [facility] [address] PCP - General Family Medicine 09/15/22 Environmental Systems Coordinator Relationship Specialty Start Date End Date Kenyetta Reynolds MD [address] [place] [facility] [address] PCP - General Family Medicine 12/20/19 Goals [...] prosecute any alcohol or drug abuse patient.[facility] Center[facility] the event this information is protected by the Federal Confidentiality of Alcohol and Drug Abuse Patient Records regulations: The Federal rules restrict any use of the information to criminally investigate or prosecute any alcohol or drug abuse patient.[facility] CenterIn the event this information is protected by the Federal Confidentiality of Alcohol and Drug Abuse Patient Records regulations: The Federal rules restrict any use of the information to criminally investigate or prosecute any alcohol or drug abuse patient.[facility] CenterIn the event this information is protected by the Federal Confidentiality of Alcohol and Drug Abuse Patient Records regulations: The Federal rules restrict any use of the information to criminally investigate or prosecute any alcohol or drug abuse patient.[facility] CenterIn the event this information is protected by the Federal Confidentiality of Alcohol and Drug Abuse Patient Records regulations: The Federal rules restrict any use of the information to criminally investigate or prosecute any alcohol or drug abuse patient.[facility] CenterIn the event this information is protected by the [facility] Confidentiality of Alcohol and Drug Abuse Patient Records regulations: The Federal rules restrict any use of the information to criminally investigate or prosecute any alcohol or drug abuse patient.[facility] CenterIn the event this information is protected by the Federal Confidentiality of Alcohol and Drug Abuse Patient Records regulations: The Federal rules restrict any use of the information to criminally investigate or prosecute any alcohol or drug abuse patient.[facility] Reason for Visit (unrecogniz ed [...] BE BASED ON THE PRIMARY CLINICAL RECORDS. [facility] provides no warranty or guarantee of the accuracy or completeness of information in this document.
[2024-07-02 10:36] LABS: INR 2.27; Prothrombin Time 22.2 sec (9.0-11.6)
[2024-07-02 10:46] VITALS: BP 156/84; PULSE 94; TEMP 36.3; O2SAT 96
[2024-07-02 11:00] VITALS: PULSE 94; O2SAT 97
[2024-07-02 11:01] VITALS: BP 145/86; BP 149/83; PULSE 94; O2SAT 95
[2024-07-02] MEDS: BUPIVACAINE HCL 0.25% PF 25 MG/10 ML VIAL 2 ML INJ (11:12)
--- NOTE | 2024-07-02 11:12 | P.ON_ITS ---
Date of procedure: 07/02/24 Pre-op diagnosis: Pain due to cervical spondylosis without myelopathy Post-op diagnosis: same as pre-op Procedure: Procedure: Right C2-3, 3-4 radiofrequency ablation Medications: Bupivacaine 0.25% 2cc, lidocaine 2% 3cc, dexamethasone 10mg The patient was seen and examined in the preoperative holding area.? The site was marked.? Written informed consent was obtained and placed on the chart.? The patient was brought to the medical procedure unit and placed in the prone position.? A timeout was completed verifying correct patient, procedure, positioning, and special requirements.? The skin overlying the target points, the designated medial branch, were prepped and draped in the usual sterile fashion.? The target point was achieved with a 20-gauge 15 cm with a 10 mm curved active tip radiofrequency cannula under direct fluoroscopic visualizatio n.? The needle was inserted at level C2 on the right side. Needle tip position was confirmed with lateral fluoroscopic position.? Motor stimulation was carried out at 2 Hz up to 5 volts with the absence of extremity activity.? This was repeated at level C3, 4 on right side.?? Sensory stimulation was carried out.? Concordant pain was realized at the above- mentioned sites.? Then radiofrequency lesioning was carried out times 90 seconds at 80 degrees times 2 lesions at each level.? The radiofrequency probe was removed prior to cannula removal.? The above-mentioned injectate was placed in 1 mL increments.? The needle was removed.? Insertion sites were covered.? The patient was taken to the postoperative recovery area and monitored for an appropriate length of time before being found suitable for discharge in the company of a responsible adult. Anesthesia: Local Surgeon: Lizzie Torre Pathology: none sent Condition: stable Disposition: no change
[2024-07-02] MEDS: LIDOCAINE HCL 2% 400 MG/20 ML MDV 8 ML INJ (11:13)
[2024-07-02] MEDS: DEXAMETHASONE SOD PHOS 10 MG/ML VIAL INJ (11:13)
== END 2024-07-02 11:18 | disposition home or self-care (01) ==
PROVIDERS: PCP Family Medicine; Visit Provider Anesthesiology
DX: M47.812 Spondylosis without myelopathy or radiculopathy, cervical region (principal); M54.2 Cervicalgia
CPT/HCPCS: 36415; 64633; 64634; 85610; J0665; J1100

== ENCOUNTER 2024-07-03 06:05 | Outpatient (RCR) | payer MEDICARE, OTHER, SELFPAY | END 2024-08-01 14:46 | disposition home or self-care (01) | LOC: MM 06:05 | PROVIDERS: PCP Family Medicine; Visit Provider Internal Medicine | DX: Z51.81 Encounter for therapeutic drug level monitoring (principal); Z79.01 Long term (current) use of anticoagulants; I26.99 Other pulmonary embolism without acute cor pulmonale | CPT/HCPCS: 85610; G0463 ==

== ENCOUNTER 2024-07-23 08:24 | Day surgery (SDC) | payer MEDICARE, OTHER, SELFPAY ==
[2024-07-23 08:39] VITALS: BP 159/92; PULSE 87; TEMP 36.2; O2SAT 97
[2024-07-23 09:00] LABS: INR 1.78; Prothrombin Time 17.8 sec (9.0-11.6)
[2024-07-23 09:44] VITALS: BP 125/76; PULSE 84; O2SAT 96
[2024-07-23 09:47] VITALS: BP 120/71; PULSE 86
[2024-07-23 09:48] VITALS: O2SAT 92
[2024-07-23] MEDS: LIDOCAINE HCL 2% 400 MG/20 ML MDV 10 ML INJ (09:55)
[2024-07-23] MEDS: DEXAMETHASONE SOD PHOS 10 MG/ML VIAL INJ (09:56)
[2024-07-23] MEDS: BUPIVACAINE HCL 0.25% PF 25 MG/10 ML VIAL 2 ML INJ (09:56)
--- NOTE | 2024-07-23 09:58 | P.ON_ITS ---
Date of procedure: 07/23/24 Pre-op diagnosis: Pain due to cervical spondylosis without myelopathy Post-op diagnosis: same as pre-op Procedure: Procedure: Left C2-3, 3-4 radiofrequency ablation Medications: Bupivacaine 0.25% 2cc, dexamethasone 10mg, lidocaine 2% 5cc The patient was seen and examined in the preoperative holding area.? The site was marked.? Written informed consent was obtained and placed on the chart.? The patient was brought to the medical procedure unit and placed in the prone position.? A timeout was completed verifying correct patient, procedure, positioning, and special requirements.? The skin overlying the target points, the designated medial branch, were prepped and draped in the usual sterile fashion.? The target point was achieved with a 20-gauge 15 cm with a 10 mm curved active tip radiofrequency cannula under direct fluoroscopic visualization .? The needle was inserted at level C2 on the left side. Needle tip position was confirmed with lateral fluoroscopic position.? Motor stimulation was carried out at 2 Hz up to 5 volts with the absence of extremity activity.? This was repeated at level C3, 4 on left side.?? Sensory stimulation was carried out.? Concordant pain was realized at the above- mentioned sites.? Then radiofrequency lesioning was carried out times 90 seconds at 80 degrees times 2 lesions at each level.? The radiofrequency probe was removed prior to cannula removal.? The above-mentioned injectate was placed in 1 mL increments.? The needle was removed.? Insertion sites were covered.? The patient was taken to the postoperative recovery area and monitored for an appropriate length of time before being found suitable for discharge in the company of a responsible adult. Anesthesia: Local Surgeon: Lizzie Torre Pathology: none sent Condition: stable Disposition: no change
== END 2024-07-23 10:03 | disposition home or self-care (01) ==
LOC: SURGOUT 08:25
PROVIDERS: PCP Family Medicine; Visit Provider Anesthesiology
DX: M47.812 Spondylosis without myelopathy or radiculopathy, cervical region (principal); M54.2 Cervicalgia
CPT/HCPCS: 36415; 64633; 64634; 85610; J0665; J1100

== ENCOUNTER 2024-08-02 04:45 | Outpatient (RCR) | payer MEDICARE, OTHER, SELFPAY | END 2024-09-01 07:17 | disposition home or self-care (01) | LOC: MM 04:45 | PROVIDERS: PCP Family Medicine; Visit Provider Internal Medicine | DX: Z51.81 Encounter for therapeutic drug level monitoring (principal); Z79.01 Long term (current) use of anticoagulants; I26.99 Other pulmonary embolism without acute cor pulmonale | CPT/HCPCS: 85610; G0463 ==

== ENCOUNTER 2024-08-22 10:55 | Outpatient (OUT) | payer MEDICARE, OTHER, SELFPAY ==
--- OUTSIDE RECORDS SUMMARY | 2024-04-30 05:32 | XMS_ITS ---
Author Organization [facility] in [place] Address [address] [place] [address] Care Team Providers Care Retail Interior Designer Name Role Phone Gabino Reynolds Primary Care Provider [phone] Results Component Value Reference Range Notes GLYCOHEMOGLOBIN A1C Reviewed date:05/03/2024 10:03:06 PM Interpretation: Performing Lab: Notes/Report: [facility] , Glycohemoglobin A1C 5.4 4.5-6.2 % ADA RECOMMENDED LIMIT 4.0 - 6.0 ADA THERAPEUTIC TARGET < 7.0 ACTION SUGGESTED > 7.0 Estimated Average Glucose 108 Performing Lab: see note ML - [facility] REASON FOR VISIT yearly labs Encounters Encounter Location Date Provider Diagnosis [facility] [address] [place] [address] 04/30/2024 Gabino Dontejessika Chronic obstructive pulmonary disease, unspecified J44.9 ; Lymphedema, not elsewhere classified I89.0 and Arthritis M19.90 Assessments Encounter Date Diagnosis (ICD Code) Assessment Notes Treatment Notes Treatment Clinical Notes Section Notes 04/30/2024 Chronic obstructive pulmonary disease, unspecified (ICD-10 - J44.9) 04/30/2024 Lymphedema, not elsewhere classified (ICD-10 - I89.0) 04/30/2024 Arthritis (ICD-10 - M19.90) Plan Of Treatment Pending Test Test Name Order Date COMPREHENSIVE METABOLIC PROFILE WITH GFR 04/30/2024 OCCULT BLOOD, FECAL, IMMUNOASSAY 025 CBC W/AUTO DIFF 04/30/2024 THYROID PANEL (T4/TSH/FREE T3) Lipid Panel 04/30/2024 Progress Notes * Myla POLLACKDOB:1950 (74 yo F)Acc No.[id number]:04/30/2024 Patient: Myla THOMAS :1950 A ge:74 Y S ex:Female Address:[facility] [address] [place] [address] Subjective: * Chief Complaints: * Y early labs * Medical History: * Surgical History: * Hospitalization/Major Diagno stic Procedure: * Medications: Objective: * Vitals: * Physical Examination: Assessment: * Assessment: 1. C hronic obstructive pulmonary disease, unspecified - J44.9 (Primary) 2 .?Lymphedema, not elsewhere classified - I89.0 3 . A rthritis - M19.90 ? Plan: * Treatment: 2. L ymphedema, not elsewhere classified L AB: COMPREHENSIVE METABOLIC PROFILE WITH GFR L AB: OCCULT BLOOD, FECAL, IMMUNOASSAY L AB: CBC W/AUTO DIFF L AB: GLYCOHEMOGLOBIN A1C L AB: THYROID PANEL (T4/TSH/FREE T3) L AB: Lipid Panel 3. A rthritis L AB: COMPREHENSIVE METABOLIC PROFILE WITH GFR L AB: OCCULT BLOOD, FECAL, IMMUNOASSAY L AB: CBC W/AUTO DIFF L AB: GLYCOHEMOGLOBIN A1C L AB: THYROID PANEL (T4/TSH/FREE T3) L AB: Lipid Panel * Procedure Codes: * true * Date: Generated for Printi ng/Fatravg/eTransmitting on: 0 08/22/2024 10:58 AM EDT
--- OUTSIDE RECORDS SUMMARY | 2024-05-03 18:02 | XMS_ITS ---
Author Organization [facility] in [place] Address [address] [place] [address] Care Team Providers Care Amphibious Operations Officer Name Role Phone Gabino Reynolds Primary Care Provider REASON FOR VISIT labs Problems Problem Type SNOMED Code ICD Code Onset Dates Problem Status W/U Status Risk Notes Problem Abnormal laboratory test result (R89.9) Active confirmed Encounters Encounter Location Date Provider Diagnosis [facility] [address] [place] [address] 05/03/2024 Gabino Reynolds Abnormal laboratory test result R89.9 Assessments Encounter Date Diagnosis (ICD Code) Assessment Notes Treatment Notes Treatment Clinical Notes Section Notes 05/03/2024 Abnormal laboratory test result (ICD-10 - R89.9) Plan Of Treatment Pending Test Test Name Order Date LIVER PROFILE 05/03/2024 Progress Notes * Myla POLLACK HiDOB:1950 (74 yo F)Acc No.[id number]:05/03/2024 Patient: Myla THOMAS :1950 A ge:74 Y S ex:Female Address:[address] [place] [address] Subjective: * Chief Complaints: * L abs * Medical History: * Surgical History: * Hospitalization/Major Diagno stic Procedure: * Medications: Objective: * Vitals: * Physical Examination: Assessment: * Assessment: 1. A bnormal laboratory test result - R89.9 (Primary) Plan: * Treatment: * Procedure Codes: * true * Date: Generated for Beatrice jorge/Rita/Kacie on: 0 08/22/2024 10:57 AM EDT
--- OUTSIDE RECORDS SUMMARY | 2024-06-28 10:21 | XMS_ITS ---
Author Organization [facility] in [place] Address [address] [place] [address] Care Team Providers Care Motion Picture Projectionist Apprentice Name Role Phone Gabino Reynolds Primary Care Provider REASON FOR VISIT Breo Medications Medication SIG (Take, Route, Frequency, Duration) Notes Start Date End Date Status Breo Ellipta 100-25 MCG/ACT 1 puff Inhalation Once a day for 30 days 06/28/2024 Active Encounters Encounter Location Date Provider Diagnosis [facility] [address] [place] [address] 06/28/2024 Gabino Reynolds Plan Of Treatment Medication Medication Name Sig Start Date Stop Date Notes Breo Ellipta 100-25 MCG/ACT 1 puff Inhal ation Once a day for 30 days 06/28/2024 Progress Notes * Myla POLLACK HiDOB:1950 (74 yo F)Acc No.[id number]:06/28/2024 Patient: Myla THOMAS :1950 A ge:74 Y S ex:Female Address:[address] [place] [address] * Refills Start Breo Ellipta Aerosol Powder Breath Activated, 100-25 MCG/ACT, Inhalation, 1, 1 puff, Once a day, 30 days, Refills=11 * true * Date: Generated for Printi ng/Faxing/eTransmitting on: 0 08/22/2024 10:58 AM EDT
--- OUTSIDE RECORDS SUMMARY | 2024-08-22 10:57 | XMS_ITS | Patient Health Record ---
Demographics Address [address] [place] [address] Mobile Email Address Preferred Language en Marital Status Unknown [employer] Affiliation Unknown Race White Ethnic Group Not or Lati no Author Organization [employer] [place] es Address [address] [place] [address] Care Team Providers Care Adobe Layer Name Role Phone Dr. Burton Pitt Primary Care Provider Reason For Referral No Information Plan Of Treatment No Information
--- OUTSIDE RECORDS SUMMARY | 2024-08-22 10:57 | XMS_ITS | Clinical Summary ---
Demographics Address [address] [place] [address] Home Phone Mobile Phone Email Address Preferred Language ENG Marital Status Religion Affiliation Unknown Race White Ethnic Group Unknown Author Organization [facility] Address [address] [place] [id number] Support Name Relationship Address Phone Leonardo Pollack Spouse [address] [place] [address] Care Team Providers Care Hammerer Helper Name Role Phone Guille Reynolds MD Primary Care Provider [phone] Allergies Active Allergy Reactions Criticality Noted Date Comments Sulfa (Sulfonamide Antibiotics) Unknown 02/03 Medications albuterol HFA (PROAIR HFA) 90 mcg/actuation inhaler ProAir HFA 90 mcg/actuation aerosol inhaler Active atorvastatin (LIPITOR) 20 mg tablet TAKE 1 TABLET BY MOUTH ONE TIME A DAY 11 02/02/20 19 Active budesonide-for moterol (SYMBICORT) 160-4.5 mcg/actuation inhaler Symbicort 160 mcg-4.5 mcg/actuation HFA aerosol inhaler Active fluticasone (FLONASE) 50 mcg/actuation nasal spray fluticasone propionate 50 mcg/actuation nasal spray,suspension Active montelukast (SINGULAIR) 10 mg tablet TAKE 1 TABLET BY MOUTH EVERY DAY IN THE EVENING 2 11/26/19 19 Active pregabalin (LYRICA) 75 mg capsule Lyrica 75 mg capsule Active tiotropium (SPIRIVA RESPIMAT) 2.5 mcg/actuation inhaler Spiriva Respimat 2.5 mcg/actuation solution for inhalation Active warfarin (COUMADIN) 5 mg tablet warfarin 5 mg tablet Take by oral route. Activ e Ascorbic Acid (VITAMIN C) 100 mg tablet Vitamin C 1 tab daily Active cycloSPORINE (RESTASIS) 0.05 % ophthalmic emulsion Restasis 0.05 % eye drops in a dropperette Active MULTI-VITAMIN ORAL Multi Vitamin 1 tab daily Active Magnesium 250 mg tab 1 mg q 24 HR. Active gluc kong/chondro kong A/vit C/Mn (GLUCOSAMINE 1500 COMPLEX ORAL) Glucosamine 1500 Complex 1 TAB DAILY Active CHONDROITIN SULFATE A ORAL Chondroitin Sulfate 1 tab daily Active biotin 1 mg cap biotin 1 tab daily Active vitamin B complex (B COMPLEX 1 ORAL) B Complex-Vitamin B12 1 tab daily Active Magnesium Oxide 250 mg magnesium tab Magnesium Oxide Magnesium Oxide Active 250 MG Oral Daily January 05, 2017 3:53pm 01-05-2017 [facility] ([id number]) 01/06/20 17 Active Flaxseed Oil 1,000 mg cap Linseed Oil Flaxseed Oil Active 1000 MG Oral Twice daily March 25, 2017 10:57am 03-25-2017 [facility] ([id number]) 03/25/20 Active Cholecalcifero l, Vitamin D3, 25 mcg (1,000 unit) cap Cholecalciferol Cholecalciferol (Vitamin D3) Active 1000 UNIT Oral Daily July 19, 2018 10:42am 07-19-2018 [facility] ([id number]) 07/20/19 19 Active CHONDROITIN SULFATE A ORAL once daily. Act renetta multivitamin (MULTIPLE VITAMINS) tablet Multivitamin (Multiple Vitamin) Tablet Active 1 TAB PO Daily January 21, 2022 12:00am 01/22/20 Active Active Problems Problem Noted Date Diagnosed Date Breast cancer screening 07/05/2022 Breast cancer screening 07/05/2022 Personal history of other en docrine, nutritional and metabolic disease 07/05/2022 Vasculitis 07/05/2022 Anemia, unspecified 04/29/2022 Elevated blood pressure read ing without diagnosis of hypertension 04/29/2022 Other abnormal glucose 04/29/2022 Palpitations 04/29/2022 Mixed hyperlipidemia 04/28/2022 Vasculitis 04/06/2022 Contusion of right wrist 03/22/2022 Fall on same level from slip ping, tripping and stumbling without subsequent striking against object, initial encounter 03/22/2022 Other intermediate frame tender (current) drug therapy Unspecified sprain of right wrist, initial encou nter 03/22/2022 Pain in right wrist 03/19/2022 Iron deficiency anemia, unspecified 01/21/2022 Localized edema 09/03/2021 Venous insufficiency (chronic) (peripheral) 08/03 PCO (posterior capsular opacification), bilatera l 09/18/2019 Pseudophakia of both eyes 09/18/2019 Primary open-angle glaucoma, bilateral, mild sta ge 02/22/2019 Hyperopia with presbyopia of both eyes 9 ABMD (anterior basement membrane dystrophy) 02/03 Pain in right foot 02/07/2019 Acute embolism and thrombosi s of unspecified deep veins of unspecified lower extremity 02/02/2019 Anticoagulant long-term use 02/02/2019 Acquired absence of right breast and nipple 05/2018 Impingement of right ankle joint 01/03/2019 Drug side effects 12/05/2018 Acquired hammer toe of left foot 12/05/2018 Peripheral vascular disease, unspecified 019 Pain in left foot 11/07/2018 Unknown cause of injury 01/28/2017 Breast cancer COPD (chronic obstructive pulmonary disease) Pulmonary embolism Resolved Problems Problem Noted Date Diagnosed Date Resolved Date Combined forms of age-relate d cataract of both eyes 02/22/2019 03/21/2019 Immunizations Immunization Administration Dates Next Due influenza (HD-IIV4) vaccine, age 65+ yr, high dose, quadrivalent, PF (FLUZONE HIGH-DOSE) 01/05/2020 influenza (IIV4) vaccine, ag e 6 mo - 64 yr, quadrivalent, PF (AFLURIA, FLUARIX, FLULAVAL, FLUZONE) 06/09/2015 novel influenza (F0I0-73) vaccine, PF 01/30/2009 pneumococcal conjugate (PCV1 3) vaccine, 13 valent (PREVNAR 13) 10/20/2017 pneumococcal polysaccharide (PPV23) vaccine, 23 valent (PNEUMOVAX 23) 01/25/2018,09/17/2015 zoster (ZVL) vaccine, live (ZOSTAVAX) 09/18/2014 Family History Medical History Relation Comments No Ocular Disease Father Relation Status Comments Father Social History Tobacco Use Types Packs/Day Years Used Date Smoking Tobacco: Never Smokeless Tobacco: Never Alcohol Use Standard Drinks/Week Comments Yes 0 (1 standard drink = 0.6 oz pure alcohol) a glass of wine once every 2-3 months AUDIT-C Answer Date Recorded Frequency of Alcohol Consumption Monthly or less 02/27/2019 Average Number of Drinks 1 or 2 019 Frequency of Binge Drinking Never 02/03 Area Deprivation Index Answer Date Paco rded National Score (1-100), lower number is lower ri sk 79 04/18/2024 State Score (1-10), lower number is lower risk 7 04/18/2024 Data from: https://www.neighborhoodatlas.medicine.[facility]/. Last address used for calculation [address] [place] 04/18/2024 Comments No Sex and Gender Information Value Date Recorded Sex Assigned at Not on file Legal Sex Female 2:02 PM EDT Gender Identity Not on file Sexual Orientation Not on file Last Filed Vital Signs Vital Sign Reading Time Taken Comments Blood Pressure 110/65 03/21/2019 1:21 PM EST Pulse 75 03/21/2019 1:21 PM EST Temperature 36.6 C (97.8 F) 03/21/2019 1:07 PM EST Respiratory Rate 16 03/21/2019 1:21 PM EST Oxygen Saturation 97% 03/21/2019 1:21 PM EST Inhaled Oxygen Concentration - - Weight 83.9 kg (185 lb) 02/27/2019 2:14 PM EST Height 162.6 cm (5' 4 ) 02/27/2019 2:14 PM EST Body Mass Index 31.76 02/27/2019 2:14 PM EST Plan of Treatment Upcoming Encounters Date Type Department Care Team (Latest Contact Info) Description 10/22/2024 10:45 AM EDT Office Visit [facility] [address] [place], [place] [address] Maggie Vidales MD [address] [place] [address] RTC: 6 Months Full OCT ON/GCA + HVF 24-2 Flash Health Maintenance Due Date Last Done Comments Anxiety Screening 1970 Depression Screening 1970 Hepatitis C Screening 1970 DTaP,Tdap,Td Vaccine (1 - Tdap) 1971 CT Colonography 1997 Cologuard (FIT-DNA) 1997 Colonoscopy 1997 Colorectal Cancer Screening 1997 Fecal Occult Blood 1997 Lipid Screening 1997 Sigmoidoscopy 1997 Shingrix Vaccine (2 of 3) 11/13/2014 09/18/2014 Bone Density Screening 2017 Diabetes Screening 02/12/2023 02/13/2020, 01/17/2020 Covid-19 Vaccine ( - 2023-2 5 season) 2023 Advance Directive Discussion 04/04/2024 Influenza Vaccine (Season Ended) 2024 01/05/2020, 06/09/2015, 01/30/2009 Mammogram Screening 01/22/2025 01/23/2024, 01/23/2024, 01/23/2024, Additional history exists RSV Vaccine (1 - 1-dose 75+ series) 2027 Pneumococcal Vaccine: 50+ Completed 2017, 10/20/2017, 09/17/2015 Medical Devices Implanted Type Area Lens Molder Device Identifier Shelf Expiration Date Model / Serial / Lot Lens Acrysof Iq Toric 6mm +24.5 Diopter +6 Cylinder 0 D Biconvex Acrylic 13 - [id number] Implanted:Qty: 1 on 03/14/2019 by Haley Saul V, MD at [facility] Intraocular Lens Left: Eye - Lens [employer] 12/03/2019 [id number] / [id number] / Description:-0.57 Lens Acrysof Iq Toric Stableforce 6mm 0 D +22.5 Diopter +2.25 Cylinder - [id number] Implanted:Qty: 1 on 03/21/2019 by Haley Saul V, MD at [facility] Intraocular Lens Right: Eye [employer] 09/02/2023 [id number] 225 / [id number] / Description:-0.80 Istent Inject - [id number] Implanted:Qty: 1 on 03/14/2019 by Haley Saul V, MD at [facility] Stent Left: Eye [employer] 12/02/2021 G2-M-IS-U S / [id number] / [id number] Istent Inject - [id number] Implanted:Qty: 1 on 03/21/2019 by Haley Saul V, MD at [facility] Stent Right: Eye [employer] 12/02/2021 G2-M-IS-U S / / [id number] Insurance * Guarantor: Myla Pollack Account Type Relation to Patient Date of Phone Billing Address Personal/Family Self 1950 [address] [place] [address] [place]ICARE [facility] [place] Care Teams Hammerer Helper Relationship Specialty Start Date End Date Guille Reynolds MD PCP - General Family Medicine 03/14/19
--- OUTSIDE RECORDS SUMMARY | 2024-08-22 10:57 | XMS_ITS | Clinical Summary ---
Demographics Address [address] [place] [address] Home Phone Mobile Phone Email Address Preferred Language Paraguayan Marital Status Sabianist Affiliation Unknown Race White Ethnic Group Not or Lati no Author Organization [facility] Address [id number] [address] [place] [address] Care Team Providers Care Director Of Global Sales Name Role Phone Guille Reynolds MD Primary Care Provider [phone] Allergies Active Allergy Reactions Criticality Noted Date Comments Sulfa (Sulfonamide Antibiotics) 11/07/2019 Unknown reaction. Patient told since childhood she was allergic. Medications b complex vitamins tablet Take 1 tablet by mouth in the morning. Active CHONDROITIN SULFATE A ORAL daily. Active magnesium 250 mg tablet 1 mg daily. Active multivit-min/fe rrous fumarate (MULTI VITAMIN ORAL) daily. Active cycloSPORINE (RESTASIS) 0.05 % ophthalmic emulsion Administer 1 drop to both eyes every 12 (twelve) hours. Active albuterol (PROVENTIL HFA;VENTOLIN HFA) 90 mcg/actuation inhaler ProAir HFA 90 mcg/actuation aerosol inhaler Active anastrozole (ARIMIDEX) 1 mg chemo tablet Take 1 mg by mouth daily Active atorvastatin (LIPITOR) 20 mg tablet TAKE 1 TABLET BY MOUTH ONE TIME A DAY 9 Active SYMBICORT 80-4.5 mcg/actuation inhaler Inhale 1 puff in the morning and 1 puff before bedtime. 0 Active butalbital-acet aminophen-caff (FIORICET, ESGIC) 50-325-40 mg per tablet Take 1 tablet by mouth every 4 (four) hours as needed. Active fluticasone propionate (FLONASE) 50 mcg/actuation nasal spray Administer into each nostril daily. Active furosemide (LASIX) 40 mg tablet Take 1 tablet (40 mg total) by mouth daily. Active POLY-IRON 150 FORTE 150-25-1 mg-mcg-mg capsule Take 1 capsule by mouth in the morning. 0 Active montelukast (SINGULAIR) 10 mg tablet Take 1 tablet (10 mg total) by mouth nightly. 0 Active potassium chloride (KLOR-CON SPRINKLE) 10 MEQ CR capsule Activ e spironolactone (ALDACTONE) 25 mg tablet Take 1 tablet (25 mg total) by mouth in the morning. 0 Active tiotropium bromide 2.5 mcg/actuation mist Inhale 2 (two) times a day. Active warfarin (COUMADIN) 5 mg tablet Take 1 tablet (5 mg total) by mouth in the evening. 5 mg M-W-F, 7.5 mg Jcn-Lkcx-Cmmxv- Sat . Active ascorbic acid, vitamin C, (VITAMIN C) 1000 mg tablet Take 1 tablet (1,000 mg total) by mouth in the morning. Active cholecalciferol , vitamin D3, 5,000 units tablet Take 1 tablet (5,000 Units total) by mouth in the morning. Active pregabalin (LYRICA) 75 mg capsule Take 1 capsule (75 mg total) by mouth in the morning and 1 capsule (75 mg total) before bedtime. Active pyridoxine, vitamin B6, (B-6) 100 mg tablet Take 1 tablet (100 mg total) by mouth in the morning. Active SUMAtriptan (IMITREX) 100 mg tablet TAKE 1 TABLET BY MOUTH ONCE DAILY NEEDED FOR PAIN AT ONSET OF HEADACHE; MAY REPEAT DOSE IN 2 HOURS IF NEEDED; MAX 2 TABS PER DAY. 2 Active Active Problems Problem Noted Date Diagnosed Date Lymphedema 07/14/2023 Assessment & Plan (07/12/2024 8:55 AM EDT): Lymphedema education provided. Referred to the lymphedema clinic. Complex decongestive therapy and maintenance. Assessment & Plan (07/14/2023 7:33 PM EDT): Compression therapy leg elevation and follow up in the clinic in 1 year. Arthritis of right knee 02/12/2020 Encounters Date Type Department Care Team Description 07/12/2024 8:30 AM EDT Office Visit [facility] [address] [place] [address] Lynsey Saldana MD Lymphedema (Primary Dx) 07/10/2024 Travel from Last 3 Months Family History Medical History Relation Name Comments Cancer Mother pancreatic Diabetes Mother Heart disease Mother Relation Name Status Comments Father (Age 92) Mother Social History Tobacco Use Types Packs/Day Years Used Date Smoking Tobacco: Never Smokeless Tobacco: Never Tobacco Cessation:Counseling Given: Not Answered Alcohol Use Standard Drinks/Week Comments Not Currently 0 (1 standard drink = 0.6 oz pur e alcohol) very rare PHQ-2 Answer Date Recorded Total Score 0 02/12/2020 Childcare Answer Date Recorded Do problems getting child ca re make it difficult for you to work or study? No 02/12/2020 Employment Answer Date Recorded Do you need help finding a iwi career center and/or a training program? No 02/12/2020 Hunger Screening Answer Date Recorded Within the past 12 months we worried whether our food would run out before we got money to buy more. Never True 07/12/2024 Within the past 12 months th e food we bought just didn't last and we didn't have money to get more. Never True 07/12/2024 Purpose - Life Answer Date Recorded Purpose and direction in life Unknown Comments No Sex and Gender Information Value Date Recorded Sex Assigned at Not on file Legal Sex Female 4:08 PM EDT Gender Identity Not on file Sexual Orientation Not on file Last Filed Vital Signs Vital Sign Reading Time Taken Comments Blood Pressure 136/78 07/12/2024 8:19 AM EDT Pulse 78 07/12/2024 8:19 AM EDT Temperature 36.4 C (97.6 F) 07/12/2024 8:19 AM EDT Respiratory Rate 18 03/17/2023 2:21 PM EST Oxygen Saturation 97% 07/12/2024 8:19 AM EDT Inhaled Oxygen Concentration - - Weight 73.5 kg (162 lb) 07/12/2024 8:19 AM EDT Height 160 cm (5' 3 ) 07/12/2024 8:19 AM EDT Body Mass Index 28.7 07/12/2024 8:19 AM EDT Plan of Treatment Health Maintenance Due Date Last Done Comments Depression Screening 1964 Adult BMI Follow Up Plan 1970 DTaP,Tdap and Td Vaccines (1 - Tdap) 1971 Zoster (Shingles) Vaccine (2 of 3) 11/13/2014 09/18/2014 Fall Risk Screening 2017 Tobacco Screening 07/13/2024 07/14/2023 Influenza Vaccine 12/03/2024 01/05/2020, , 01/03/2017, Additional history exists Adult BMI Screening 07/12/2025 07/12/2024 Medical Devices Implanted Type Area Transition Social Worker Device Identifier Shelf Expiration Date Model / Serial / Lot Cmnt Bn Bio 40gm Rpl [id number] - Sna - [id number] Implanted:Qty : 2 on 02/12/2020 by Leonardo Boudreaux Jr., DO at [facility] Cement Right: Knee [employer] 04/03/2024 [id number] / NA / [id number] Artc 3-5 E-F 11mm Kn Rt Ps - Sna - [id number] Implanted:Qty : 1 on 02/12/2020 by Leonardo Boudreaux Jr., DO at [facility] Orthopedic Implant Right: Knee [employer] [id number] 05/04/2020 [id number] 11 / NA / [id number] Cmpt Fem 5 Kn Rt Persona Strl - Sna - [id number] Implanted:Qty : 1 on 02/12/2020 by Leonardo Boudreaux Jr., DO at [facility] Orthopedic Implant Right: Knee [employer] 04/03/2028 [id number] 02 / NA / [id number] Cmpt Ptlr 32mm Persona Alply - Sna - [id number] Implanted:Qty : 1 on 02/12/2020 by Leonardo Boudreaux Jr., DO at [facility] Orthopedic Implant Right: Knee [employer] 10/02/2027 [id number] 32 / NA / [id number] Bsplt Tib 5d E Kn Rt Stm - Sna - [id number] Implanted:Qty : 1 on 02/12/2020 by Leonardo Boudreaux Jr., DO at [facility] Plate Right: K[employer] 03/03/2029 [id number] 02 / NA / [id number] Explanted Type Area Transition Social Worker Device Identifier Shelf Expiration Date Model / Serial / Lot Scr Headframe 25mm 2.5mm - Sna - [id number] Explanted:Qty: 1 on 02/12/2020 by Leonardo Boudreaux Jr., DO at [facility] Screw Right: Knee [employer] [id number] 01/07/2030 [id number] 08-26 / NA / [id number] Insurance * Guarantor: Myla Pollack Account Type Relation to Patient Date of Phone Billing Address Personal/Family Self 1950 [address] [place] [address] MEDICARE [facility] [place] Advance Directives * Full Code (Latest Code Status on File) Date Activated Date Inactivated Comments 02/12/2020 12:28 PM 02/13/2020 2:43 PM Care Teams Director Of Global Sales Relationship Specialty Start Date End Date Guille Reynolds MD PCP - General Family Medicine 9/17/20
--- OUTSIDE RECORDS SUMMARY | 2024-08-22 10:57 | XMS_ITS | Encounter Summary ---
Author Organization [facility] Address [address] [place] [address] Care Team Providers Care Roof Truss Builder Name Role Phone Guille Reynolds MD Primary Care Provider [phone] Encounter Details Date Type Department Care Team (Late st Contact Info) Description 01/20/2023 External Result Encounter [facility] Unsolicited Claire Duran, [facility] [address] [place] [address] Social History Tobacco Use Types Packs/Day Years Used Date Smoking Tobacco: Never Smokeless Tobacco: Never Alcohol Use Standard Drinks/Week Comments Never 0 (1 standard drink = 0.6 oz pure alcohol) caffeine intake: 2-3 cups per day Comments Unknown Sex and Gender Information Value Date Recorded Sex Assigned at Female 09/14/2022 10:25 AM EDT Legal Sex Female 7:18 PM EDT Gender Identity Female 09/14/2022 10:25 AM EDT Sexual Orientation Straight 09/14/2022 10 :25 AM EDT documented as of this encounter Plan of Treatment Upcoming Encounters Date Type Department Care Team (Late st Contact Info) Description 05/22/2025 10:00 AM EST Office Visit [facility] [address] [place] [address] Jr. Leonardo Boudreaux DO [address] [place] [address] documented as of this encounter Procedures Procedure Name Priority Date/Time Associated Diagnosis Comments BI MAMMOGRAM SCREENING TOMOSYNTHESIS LEFT 01/20/2023 1:10 PM EDT documented in this encounter Results * Left screening mammogram with tomosynthesis (01/20/2023 1:10 PM EDT) Anatomical Region Laterality Modality Breast Left Mammography 01/20/2023 1:10 PM EDT Impressions 03/09/2023 11:57 AM EST NO MAMMOGRAPHIC EVIDENCE OF MALIGNANCY. ROUTINE FOLLOW-UP [...] Luciana Busby M.D.01/20/2023 1:16 PM Dictation Location: [facility] Transcribed By: [facility] 01/20/23 1316 Dictated By: Luciana Busby MD 01/20/23 1310 Signed By: <Electronically signed by MD Luciana Busby in OV> 01/20/23 1316 Narrative 03/09/2023 11:57 AM EST [facility] Main [place] [id number] Mammography Report Signed Patient: Myla Pollack MR#: [id number] : 1950 Acct:[id number] Age/Sex: 72 / F ADM Date: 01/20/23 Loc: XT Room: Type: [facility] Attending Dr: Kacie Garay MD Copies to: MD Guille Degroot MD Hammad M Rashid, MD Lindsay [...] interval change. MM/MM screening mammo LT w/CAD Procedure Note Radiology, Radiologist, MD - 03/09/2023 [facility] [place] [address] [place] [address] Mammography Report Signed Patient: Myla Pollack#: [id number] : 1950cct:[id number] Age/Sex: 72 / FADM Date: 01/20/23 Loc: XT Room:Type: [facility] RCR Attending Dr: Kacie Garay MD Copies to: MD Guille Degroot MD Hammad M Rashid, MD Lindsay L Damschroder, APRN Ordering Provider: Claire Duran APRN Date of Service: 01/20/23 MM/MM screening mammo LT w/CAD: screening;history of right breast cancer CLINICAL DATA: Screening for malignancy. Prior right mastectomy forcarcinoma LEFT SCREENING MAMMOGRAMS - FULL FIELD DIGITAL WITH TOMOSYNTHESIS AND CAD Tomosynthesis craniocaudal and mediolateral oblique views of of the leftbreast were obtained using low-dose digital technique. Comparison is made to prior studies fromJanuary 15, 2020 through January 18, 2022. This examination was reviewed with the aid of CAD. There are scattered fibroglandular densities. Benign and vascularcalcifications are seen. There are no developing masses, typically malignant calcifications orarchitectural distortion. There has been no significant interval [...] system with a target due date for thenext mammogram. Impression dictated by: Luciana Busby M.D.01/20/2023 1:16 PM Dictation Location: [facility] Transcribed By: [facility] 01/20/23 1316 Dictated By: Luciana Busby MD 01/20/23 1310 Signed By: <Electronically signed by MD Luciana Busby in OV> 01/20/23 1316 Claire Duran ST[facility] DRI[facility]ER IMG BI PROCEDURES Final Result documented in this encounter Visit Diagnoses Not on filedocumented in this encounter Care Teams Roof Truss Builder Relationship Specialty Start Date End Date Guille Reynolds MD PCP - General Family Medicine 09/15/22 documented as of this encounter
--- OUTSIDE RECORDS SUMMARY | 2024-08-22 10:57 | XMS_ITS | Clinical Summary ---
Author Organization [facility] Address [address] [place] [address] Care Team Providers Care Labor/Excavator Name Role Phone Guille Reynolds MD Primary Care Provider [phone] Allergies Active Allergy Reactions Criticality Noted Date Comments Sulfa Antibiotics 02/22/2019 Other Reaction(s): Unknown, unknown (child) Unknown reaction. Patient told since childhood she was allergic. Sulfamethoxazole-Trimethopr im Unknown 01/18/2021 Medications B Complex Vitamins (B COMPLEX 1 PO) Take 1 tablet by mouth Daily Active albuterol HFA (ProAir HFA) 90 mcg/act inhaler Inhale 1 puff every 4 (four) hours if needed Active ascorbic acid (Vitamin C) 1000 MG tablet Take 1,000 mg by mouth in the morning. Active atorvastatin (Lipitor) 20 MG tablet Take 20 mg by mouth 1 (one) time each day at the same time Active biotin 1 MG capsule Take 1 capsule by mouth Daily Active cholecalcifero l (D3-5) 5,000 Units tablet Take 5,000 Units by mouth in the morning. Active cycloSPORINE (Restasis) 0.05 % ophthalmic emulsion Administer 1 drop into both eyes every 12 (twelve) hours Active ergotamine-caf feine (Cafergot) 1-100 MG tablet Take 1 tablet by mouth 1 (one) time if needed Active magnesium 250 MG tablet Take 1 tablet by mouth 1 (one) time each day at the same time Active Multiple Vitamin (Multi-Vitamin ) tablet Take 1 tablet by mouth Daily 01/22/20 22 Active pregabalin (Lyrica) 75 MG capsule Take 75 mg by mouth Daily Active Pyridoxine HCl (Vitamin B6) 100 MG tablet Take 1 tablet by mouth 1 (one) time each day at the same time Active warfarin (Coumadin) 5 MG tablet Take 5 mg by mouth Active Imitrex 100 MG tablet 100 mg every 12 (twelve) hours 12/21/19 23 Active Glucosamine 500 MG capsule Take 2 tablets by mouth 1 (one) time each day at the same time Active Cyanocobalamin (Vitamin B12) 1000 MCG tablet controlled-rel ease Take 1 tablet by mouth 1 (one) time each day at the same time Active Zinc 10 MG lozenge Active Breo Ellipta 100-25 MCG/ACT aerosol powder Inhale 1 puff Daily 07/28/19 24 Active fluticasone (Flonase) 50 MCG/ACT nasal sprayIndicatio ns:Nasal polyp Administer 2 sprays into each nostril Daily Shake gently. Before first use, prime pump. After use, clean tip and replace cap. 48 g 07/25/19 25 026 Active montelukast (Singulair) 10 MG tabletIndicati ons:Nasal polyp Take 1 tablet (10 mg) by mouth at bedtime 90 tablet 07/25/19 25 026 Active ipratropium (Atrovent) 0.06 % nasal sprayIndicatio ns:Vasomotor rhinitis Administer 2 sprays into each nostril in the morning and 2 sprays in the evening and 2 sprays before bedtime. 45 mL 07/25/19 25 026 Active amoxicillin (Amoxil) 500 MG tabletIndicati ons:History of total knee arthroplasty, left 4 tabs PO once 30-60 mins before procedure with food 4 tablet 07/26/19 25 Active fluticasone (Flonase) 50 MCG/ACT nasal sprayIndicatio ns:Nasal polyp Administer 2 sprays into each nostril Daily Shake gently. Before first use, prime pump. After use, clean tip and replace cap. 48 g 3 08/24/19 24 025 Discontinued montelukast (Singulair) 10 MG tabletIndicati ons:Nasal polyp Take 1 tablet (10 mg) by mouth at bedtime 90 tablet 3 08/24/19 24 025 Discontinued Active Problems Problem Noted Date Diagnosed Date Abnormal laboratory test result 07/24/2024 Acquired hammer toe of right foot 07/24/2024 Hallux rigidus, left foot 07/24/2024 Hallux valgus of right foot 07/24/2024 Shoulder joint pain 07/24/2024 Acquired hallux rigidus 08/18/2023 Other deformities of toe(s) (acquired), left lupe t 08/18/2023 Other osteonecrosis, left foot 08/18/2023 Personal history of pulmonary embolism Presence of functional implant, unspecified 08/02 Venous insufficiency (chronic) (peripheral) 08/02 Hx of breast cancer 08/18/2023 Overview (08/18/2023): 2015, completed mastectomy and chemotherapy Leukocytoclastic vasculitis 08/18/2023 Lymphedema 07/14/2023 Overview (08/18/2023): Last Assessment & Plan: Compression therapy leg elevation and follow up in the clinic in 1 year. Bilateral impacted cerumen 09/15/2022 Nasal polyp 08/10/2018 Resolved Problems Problem Noted Date Diagnosed Date Resolved Date Other specified disorders of bone, ankle and foot 08/18/2023 08/18/2023 Breast cancer 09/14/2022 09/14/2022 COPD (chronic obstructive pulmonary disease) 3 09/14/2022 Unilateral primary osteoarthritis, left knee 3 09/14/2022 Pulmonary embolism 09/14/2022 Breast cancer screening 07/05/202209/02 Personal history of other en docrine, nutritional and metabolic disease 07/05/20222022 Anemia, unspecified 04/29/2022 09/15/19 23 Elevated blood pressure read ing without diagnosis of hypertension 04/29/2022 09/14/2022 Other abnormal glucose 04/29/202209/14 Palpitations 04/29/2022 09/14/2022 Mixed hyperlipidemia 04/28/2022 023 Other clean rice broker (current) drug therapy 03/22/2022 09/14/2022 Unspecified sprain of right wrist, initial encounter 03/22/2022 09/14/2022 Fall on same level from slip ping, tripping and stumbling without subsequent striking against object, initial encounter 03/22/20222022 Iron deficiency anemia, unspecified 01/21/2022 09/14/2022 Localized edema 09/03/2021 09/14/2022 Venous insufficiency (chronic) (peripheral) 08/27/2021 09/14/2022 Artificial knee joint present 02/14/2020 09/14/2022 Difficulty walking 02/14/2020 Arthritis of right knee 02/12/202009/02 Acute cystitis without hematuria 10/19/2019 09/14/2022 PCO (posterior capsular opac ification), bilateral 09/18/2019 09/14/2022 Pseudophakia of both eyes 09/18/2019 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 09/14/2022 Hyperopia with presbyopia of both eyes 02/22/2019 09/14/2022 Primary open-angle glaucoma, bilateral, mild stage 02/22/2019 09/14/2022 Acute embolism and thrombosi s of unspecified deep veins of unspecified lower extremity 02/02/2019 09/14/2022 Anticoagulant long-term use 02/02/2019 09/14/2022 Acquired absence of right breast and nipple 01/03/2019 09/14/2022 Impingement of right ankle joint 01/03/2019 09/14/2022 Acquired hammer toe of left foot 12/05/2018 09/14/2022 Drug side effects 12/05/2018 09/14/2022 Peripheral vascular disease, unspecified 11/10/2018 09/14/2022 Thrush 08/10/2018 09/14/2022 Pain in right knee 01/08/2018 3 Vasculitis 02/10/2017 09/14/2022 Other chronic pain 10/18/2016 Osteoarthritis of knee 09/06/201609/14 Encounters Date Type Department Care Team Description 07/25/2024 Telephone [facility] [address] [place] [address] Jr. Leonardo Boudreaux, DO dentist 07/24/2024 11:20 AM EDT Office Visit [facility] [address] [place] [address] Lana Francois MD Nasal polyp (Primary Dx); Vasomotor rhinitis 07/24/2024 Bamboo flowsheet [facility] [address] [place] [address] Lana Francois MD 07/24/2024 Travel from Last 3 Months Immunizations Immunization Administration Dates Next Due Pneumococcal Conjugate PCV 13 10/20/2017 Pneumococcal Polysaccharide PPSV23 01/25/2018, Zoster, live 09/18/2014 Family History Medical History Relation Name Comments Cancer Mother Kamille Diabetes Mother Kamille Heart disease Mother Kamille Hypertension Mother Kamille Pancreatic cancer Mother Kamille Relation Name Status Comments Father Maternal Grandfather Maternal Grandmother Mother Kamille Paternal Grandfather Paternal Grandmother Social History Tobacco Use Types Packs/Day Years Used Date Smoking Tobacco: Never Smokeless Tobacco: Never Tobacco Cessation:Counseling Given: Not Answered Alcohol Use Standard Drinks/Week Comments Never 0 (1 standard drink = 0.6 oz pure alcohol) caffeine intake: 2-3 cups per day Comments Unknown Sex and Gender Information Value Date Recorded Sex Assigned at Female 09/14/2022 10:25 AM EDT Legal Sex Female 7:18 PM EDT Gender Identity Female 09/14/2022 10:25 AM EDT Sexual Orientation Straight 09/14/2022 10 :25 AM EDT Last Filed Vital Signs Vital Sign Reading Time Taken Comments Blood Pressure 123/72 07/24/2024 11:13 AM EDT Pulse 91 07/24/2024 11:13 AM EDT Temperature - - Respiratory Rate - - Oxygen Saturation - - Inhaled Oxygen Concentration - - Weight 71.7 kg (158 lb) 07/24/2024 11:13 AM EDT Height 160 cm (5' 3 ) 07/24/2024 11:13 AM EDT Body Mass Index 27.99 07/24/2024 11:13 AM EDT Plan of Treatment Upcoming Encounters Date Type Department Care Team (Late st Contact Info) Description 05/22/2025 10:00 AM EST Office Visit [facility] [address] [place] [address] Jr. Leonardo Boudreaux C, DO [address] [place] [address] Insurance * Guarantor: [employer] Account Type Relation to Patient Date of Phone Billing Address Personal/Family Self 1950 [address] [place] [address] [employer] Care Teams Labor/Excavator Relationship Specialty Start Date End Date Guille Reynolds MD PCP - General Family Medicine 09/15/22
--- OUTSIDE RECORDS SUMMARY | 2024-08-22 10:57 | XMS_ITS | Clinical Summary ---
Demographics Address [address] [place] [address] Home Phone Preferred Language en Marital Status Rastafarian Affiliation Unknown Race White Ethnic Group Not or Lati no Author Organization [facility] Address [address] [place] [address] Phone Care Team Providers Care Undercoater Name Role Phone Unavailable Primary Care Provider Unavailabl e Social History Tobacco Use Types Packs/Day Years Used Date Smoking Tobacco: Never Assessed Comments Unknown Sex and Gender Information Value Date Recorded Sex Assigned at Not on file Legal Sex Female 5:46 PM EST Gender Identity Not on file Sexual Orientation Not on file Plan of Treatment Not on file
--- OUTSIDE RECORDS SUMMARY | 2024-08-22 10:57 | XMS_ITS | Encounter Summary ---
Author Organization [facility] Address [address] [place] [address] Care Team Providers Care Filler Shredder Machine Name Role Phone Guille Reynolds MD Primary Care Provider [phone] Encounter Details Date Type Department Care Team (Late st Contact Info) Description 01/23/2024 External Result Encounter [facility] Unsolicited Kacie Garay MD [address] [place] [address] Social History Tobacco Use Types Packs/Day Years [...] Office Visit [facility] [address] [place] [id number] Jr. Leonardo Boudreaux, DO [address] [place] [address] documented as of this encounter Procedures Procedure Name Priority Date/Time Associated Diagnosis Comments BI MAMMOGRAM SCREENING TOMOSYNTHESIS LEFT 01/23/2024 10:08 AM EDT documented in this encounter Results * Left screening mammogram with tomosynthesis (01/23/2024 10:08 AM EDT) Anatomical Region Laterality Modality Breast Left Mammography 01/23/2024 10:0 8 AM EDT Impressions 01/23/2024 10:12 AM EDT No mammographic evidence of malignancy. Routine follow-up [...] José Sandoval M.D.01/23/2024 10:09 AM Dictation Location: [facility] Transcribed By: [facility] 01/23/24 1009 Dictated By: José Sandoval DO 01/23/24 1008 Signed By: <Electronically signed by José Sandoval DO in OV> 01/23/24 1009 Narrative 01/23/2024 10:12 AM EDT [facility] [place] [address] Mammography Report Signed Patient: Myla Pollack MR#: [id number] : 1950 Acct:[id number] Age/Sex: 73 / F ADM Date: 01/23/24 Loc: XT Room: Type: [facility] RCR Attending Dr: Kacie Garay MD Copies to: MD Guille Degroot MD Hammad M Rashid, MD Ordering [...] CHANGES: None MM/MM screening mammo LT w/CAD Procedure Note Radiology, Radiologist, MD - 01/23/2024 [facility] [address] [place] [address] [place], [place] [id number] Mammography Report Signed Patient: Myla Pollack#: [id number] : 1950cct:[id number] Age/Sex: 73 / FADM Date: 01/23/24 Loc: XT Room:Type: [facility] Attending Dr: Kacie Garay MD Copies to: MD Guille Degroot MD Hammad M Rashid, MD Ordering Provider: Kacie Garay MD Date of Service: 01/23/24 MM/MM screening mammo LT w/CAD: history ofbreast cancer LEFT Screening Full Field digital mammogram with 3-D imaging. Full field digital CC and MLO imaging performed. CAD utilized. COMPARISON: 01/20/2023 HISTORY: Screening. Prior right mastectomy for carcinoma. BREAST COMPOSITION: Scattered fibroglandular densities of the breastparenchyma identified BREAST CALCIFICATIONS: Benign calcifications present. VASCULAR CALCIFICATIONS: Present ARCHITECTURAL DISTORTION: None BREAST NODULE: None AXILLARY LYMPH NODES: Normal POSTSURGICAL CHANGES: None MM/MM screening mammo LT w/CAD IMPRESSION: No mammographic evidence of malignancy. Routine follow-up recommended inone year. RESULT CODE: 2 Benign Findings(s) DENSITY CODE: 2 (approximately 25-50% glandular) FOLLOW UP: 1YR THE FALSE-NEGATIVE RATE OF MAMMOGRAPHY IS APPROXIMATELY 10%. IMAGING OF A PALPABLE ABNORMALITY MUST BE BASED ON CLINICAL GROUNDS. PATIENT WAS ENTERED INTO A REMINDER SYSTEM WITH A TARGET DUE DATE FOR THENEXT MAMMOGRAM. Impression dictated by: José Sandoval M.D.01/23/2024 10:09 AM Dictation Location: [facility] Transcribed By: [facility] 01/23/24 1009 Dictated By: José Sandoval DO 01/23/24 1008 Signed By: <Electronically signed by José Sandoval DO in OV> 01/23/24 1009 us Kacie Garay MD IMG BI PROCEDURES Final Result documented in this encounter Visit Diagnoses Not on filedocumented in this encounter Care Teams Filler Shredder Machine Relationship Specialty Start Date End Date Guille Reynolds MD PCP - General Family Medicine 09/15/22 documented as of this encounter
--- OUTSIDE RECORDS SUMMARY | 2024-08-22 11:02 | XMS_ITS | CCD ---
Author Organization [facility] Care Team Providers Care Floriculture Teacher Name Role Phone Demarco Hess Unavailable Unavailable [...] Provider Unavailable MD Kacie Garay Attending Provider [phone] MD Kenyetta Sanchez Primary Care Provider [phone] Kenyetta Sanchez MD Primary Care Provider Kenyetta Sanchez MD Primary Care Provider [phone] FAWWAD, COVARRUBIAS H Attending Unavailable FAWWAD, COVARRUBIAS [...] Unavailable GEORGE ., MR DINO Attending Unavailable GREGORYDINO Booker Consulting Unavailable HOY ., DR KUMRAI Primary Care Unavailable HOY ., DR KUMARI [...] Care Unavailable MD Christian Steiner Other Provider [phone] MD Kacie Garay Attending Provider MD Kenyetta Sanchez Primary Care Provider [phone] Kenyetta Sanchez MD Primary Care Provider Kenyetta Sanchez MD Primary Care Provider [phone] MD Christian Steiner Other Provider MD Kacie Garay Attending Provider MD Kenyetta Sanchez Primary Care Provider Christian Steiner Consulting Unavailable Kacie Garay Admitting Unavailable Kacie Garay Attending Unavailable Kenyetta Sanchez Primary Care Unavailable CK GONZALEZ Attending Unavailable KENYETTA SANCHEZ Primary Care Unavailable ALESHA VIDALES Attending Unavailable KENYETTA SANCHEZ Primary Care Unavailable ALESHA VIDALES Referring Unavailable ALESHA VIDALES Referring Unavailable ALESHA VIDALES Attending Unavailable KENYETTA SANCHEZ Primary Care Unavailable ALESHA VIDALES Attending Unavailable KENYETTA SANCHEZ Primary Care Unavailable Kenyetta Sanchez MD Primary Care Provider [phone] Kenyetta Sanchez MD Primary Care Provider [phone] LYNSEY SALDANA Attending Unavailable KENYETTA SANCHEZ Referring Unavailable KENYETTA SANCHEZ Primary Care Unavailable SARAHI PIERSON Attending Unavailable SARAHI PIERSON H Attending Unavailable KENYETTA SANCHEZ Referring Unavailable DINO GEORGE Attending Unavailable DINO GEORGE Referring Unavailable DINO GEORGE Attending Unavailable Nicho FERGUSON, Andlanette Little Attending Unavailable Gitaniaitis , Andlanette Little Attending Unavailable Gijessie FERGUSON, Lizzie Little Attending Unavailable Gijessie FERGUSON, Lizzie Little Attending Unavailable Allergies Allergy Classification Reported Allergen(s) Allergy Type Date of Onset Reaction(s) Facility Sulfonamides (antibiotic) (1 source) Sulfonamides (Antibiotic) Drug Allergy 9 Unknown [facility] (20 sources) Sulfonamides (Antibiotic); 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: [SULFA (SULFONAMIDE ANTIBIOTICS)] Drug Allergy 9 Unknown [facility] (1 source) Sulfonamides (Antibiotic) Drug allergy (disorder) 5 [facility] (12 sources) Sulfamethoxazole / Trimethoprim Drug Allergy 1 Unknown [facility] (1 source) Sulfonamides (Antibiotic) Drug allergy (disorder) 4 [facility] Medications Current Medications Medication Drug Class(es) Dates Sig (Normalized) Sig (Original) acetaminophen 325 mg / butalbital 50 mg / caffeine 40 mg oral tablet (7 sources) Barbiturate, Central Nervous System Stimulant, Methylxanthine take 1 tablet by mouth every four hours as needed butalbital-acetam inophen-caff (FIORICET, ESGIC) 50-325-40 mg per tablet Take 1 tablet by mouth every 4 (four) hours as needed. Active take 1 tablet by mouth every six hours as needed [id number]-uisgicyhhbpjl-[id number] 50-325 -40 MG tablet Take 1 tablet by mouth every 6 (six) hours if needed. 0 Active End: 01-17-2023 acetaminophen 325 mg-caffein e 40 mg-butalbital 50 mg (FIORICET) per tablet avtduqfuqk-ounzctnfqdtdo-qaykykiu 50 mg-325 mg-40 mg tablet 0 01/17/2023 [...] PUFF INHALATION Q6H January 05, 2017 12:00am take 1 puff(s) by in halation every four hours albuterol HFA (ProAir HFA) 90 mcg/act inhaler Inhale 1 puff every 4 (four) hours if needed Active albuterol (PROVE NTIL HFA;VENTOLIN HFA) 90 mcg/actuation inhaler ProAir HFA 90 mcg/actuation aerosol inhaler Active Comment on above: ProAir HFA 90 mcg/ac tuation aerosol inhaler Albuterol Sulfate Ac tive 1 PUFF INHALATION Q6H January 05, 2017 12:00am amoxicillin 500 mg oral tablet (1 source) Penicillin-class Antibacterial Start: 07-26-19 25 take 4 tablets by mouth once at mealtime amoxicillin (Amoxil) 500 MG tablet Indications: History of total knee arthroplasty, left 4 tabs PO once 30-60 mins before procedure with food 4 tablet 3 07/25/2024 Active ascorbic acid 500 mg oral tablet (20 sources) Vitamin C Start: 01-06-20 17 take 1 tablet by mouth once daily Ascorbic Acid (Vitamin C) (Vitamin C) 500 mg Tablet Active 500 MG PO Daily January 05, 2017 12:00am take 1 tablet by mouth in the mo rning ascorbic acid (Vitamin C) 1000 MG tablet Take 1,000 mg by mouth in the morning. Active Ascorbic Acid (V ITAMIN C) 100 mg tablet Vitamin C 1 tab daily Active Comment on above: Vitamin C 1 tab daily atorvastatin 20 mg oral tablet (20 sources) HMG-CoA Reductase Inhibitor Start: 9 take 1 tablet by mouth once daily atorvastatin (LIPITOR) 20 mg tablet TAKE 1 TABLET BY MOUTH ONE TIME A DAY 02/01/2019 Active Comment on above: TAKE 1 TABLET BY TIERA TH ONE TIME A DAY B Complex Vitamins (B COMPLEX 1 PO) (12 sources) B Complex Vitami ns (B COMPLEX 1 PO) Take 1 tablet by mouth Daily Active B Complex Vitami ns (B COMPLEX 1 PO) Take 1 tablet by mouth in the morning. Active B Complex Vitami ns (B COMPLEX 1 PO) Take 1 tablet by mouth in the morning. 0 Active biotin 1 mg oral tablet (20 sources) Start: 02-28-2017 take 1 mg by mouth once daily Biotin Active 1 MG PO Daily February 28, 2017 1:00am take 1 capsule by mouth once fallon ly biotin 1 MG capsule Take 1 capsule by mouth Daily Active Comment on above: biotin 1 tab daily 60 actuat budesonide 0.08 mg/actuat / formoterol fumarate 0.0045 mg/actuat metered dose inhaler (17 sources) Corticosteroid, beta2-Adrenergic Agonist Start: 11-01-2019 take [...] / ergotamine tartrate 1 mg oral tablet (12 sources) Central Nervous System Stimulant, Ergotamine Derivative, Methylxanthine take 1-100 mg by mouth once ergotamine-caffeine (Cafergot) 1-100 MG tablet Take 1 tablet by mouth 1 (one) time if needed Active cholecalciferol 0.025 mg oral capsule (20 sources) Vitamin D Start: 019 Cholecalciferol, Vitamin D3, 25 mcg (1,000 unit) cap Cholecalciferol Cholecalciferol (Vitamin D3) Active 1000 UNIT Oral Daily July 19, 2018 10:42am 07-19-2018 [facility] ([id number]) 07/19/2018 Active take 1 tablet by mouth in the mo rning cholecalciferol (D3-5) 5,000 Units tablet Take 5,000 Units by mouth in the morning. Active Comment on above: Cholecalciferol Chol ecalciferol (Vitamin D3) Active 1000 UNIT Oral Daily July 19, 2018 10:42am 07-19-2018 [facility] ([id number]) CHONDROITIN SULFATE A ORAL (15 sources) take 1 tablet by mouth once [...] once daily. cycloSPORINE 0.5 mg/ml ophthalmic suspension (20 sources) Calcineurin Inhibitor Immunosuppressant take 1 drop(s) into the eye(s) every twelve hours cycloSPORINE (Restasis) 0.05 % ophthalmic emulsion Administer 1 drop into both eyes every 12 (twelve) hours Active cycloSPORINE (RE STASIS) 0.05 % ophthalmic emulsion Restasis 0.05 % eye drops in a dropperette Active Comment on above: Restasis 0.05 % eye drops in a dropperette fluticasone propionate 0.05 mg/actuat metered dose nasal spray (20 sources) Corticosteroid Start: End: take 2 spray(s) nasal route once daily fluticasone (Flonase) 50 MCG/ACT nasal spray Indications: Nasal polyp Administer 2 sprays into each nostril Daily Shake gently. Before first use, prime pump. After use, clean tip and replace cap. 48 g 3 07/24/2024 07/24/2025 Active Start: 09-15-2022 End: 09-15-2023 take 2 [...] fluticasone propionate 50 mcg/actuation nasal spray,suspension Active Comment on above: fluticasone propiona te 50 mcg/actuation nasal spray,suspension 30 actuat fluticasone furoate 0.1 mg/actuat / vilanterol 0.025 mg/actuat dry powder inhaler (10 sources) Corticosteroid, beta2-Adrenergic Agonist Start: take 1 puff(s) by inhalation once daily Breo Ellipta 100-25 MCG/ACT aerosol powder Inhale 1 puff Daily 07/28/2023 Active Fluticasone Furoate-Vilanterol (1 source) Start: Fluticasone Furoate-Vilantero l (Breo Ellipta) 50-25 mcg/dose blister with device Active INHALATION January 30, 2024 12:00am folic acid 1 mg / polysaccharide iron complex 150 mg / vitamin b12 0.025 mg oral capsule (2 sources) Vitamin B12 Start: 020 take 1 capsule by mouth in the morning POLY-IRON 150 FORTE 150-25-1 mg-mcg-mg capsule Take 1 capsule by mouth in the morning. 10/16/2019 Active furosemide 40 mg oral tablet (4 sources) Loop Diuretic End: 023 take 1 [...] DAILY glucosamine sulfate 500 mg oral capsule (10 sources) take 2 tablets by mouth once daily Glucosamine 500 MG capsule Take 2 tablets by mouth 1 (one) time each day at the same time Active ipratropium bromide 0.042 mg/actuat metered dose nasal spray (3 sources) Anticholinergic Start: 07-25-19 25 End: 07-25-19 26 take 2 spray(s) nasal route in the morning, then take 2 spray(s) nasal route in the evening, then take 2 spray(s) nasal route at bedtime ipratropium (Atrovent) 0.06 % nasal spray Indications: Vasomotor rhinitis Administer 2 sprays into each nostril in the morning and 2 sprays in the evening and 2 sprays before bedtime. 45 mL 3 07/24/2024 07/24/2025 Active linseed oil 1000 mg oral capsule (10 sources) Start: 03-25-20 17 Flaxseed Oil 1,000 mg cap Linseed Oil Flaxseed Oil Active 1000 MG Oral Twice daily March 25, 2017 10:57am 03-25-2017 [facility] ([id number]) 03/25/2017 Active Comment on above: Linseed Oil Flaxseed Oil Active 1000 MG Oral Twice daily March 25, 2017 10:57am 03-25-2017 [facility] ([id number]) Magnesium (20 sources) take 1 tablet by mouth once daily magnesium 250 MG tablet Take 1 tablet by mouth 1 (one) time each day at the same time Active take 1 mg by mouth every twenty- four hours Magnesium 250 mg tab 1 mg q 24 HR. Active take 1 tablet by mouth once shaheen y magnesium 250 MG tablet Take 1 tablet by mouth 1 (one) time each day at the same time. Active take 1 mg by mouth every twenty- four hours magnesium 250 mg tablet 1 mg daily. Active take 1 tablet by mouth once shaheen y magnesium 250 MG tablet Take 1 tablet by mouth 1 (one) time each day at the same time. 0 Active take 1 mg by mouth every twenty- four hours Magnesium 250 mg tab 1 mg q 24 HR. 0 Active Comment on above: 1 mg q 24 HR. magnesium oxide 250 mg oral tablet (10 sources) Start: 7 Magnesium Oxide 250 mg magnesium tab Magnesium Oxide Magnesium Oxide Active 250 MG Oral Daily January 05, 2017 3:53pm 01-05-2017 [facility] ([id number]) 01/05/2017 Active Comment on above: Magnesium Oxide Magn esium Oxide Active 250 MG Oral Daily January 05, 2017 3:53pm 01-05-2017 [facility] ([id number]) montelukast 10 mg oral tablet (20 sources) Leukotriene Receptor Antagonist Start: 7 End: take 1 tablet by mouth at bedtime montelukast (Singulair) 10 MG tablet Indications: Nasal polyp Take 1 tablet (10 mg) by mouth at bedtime 90 tablet 3 07/24/2024 07/24/2025 Active Comment on above: TAKE 1 TABLET BY TIERA TH EVERY DAY IN THE EVENING MULTI-VITAMIN ORAL (7 sources) take 1 tablet by mouth once daily MULTI-VITAMIN ORAL Multi Vitamin 1 tab daily Active take 1 tablet by mouth once shaheen y MULTI-VITAMIN ORAL Multi Vitamin 1 tab daily 0 Active Comment on above: Multi Vitamin 1 tab daily Multiple Vitamin (Multi-Vitamin) tablet (12 sources) Start: 01-21-2022 take 1 tablet by mouth once daily Multiple Vitamin (Multi-Vitamin) tablet Take 1 tablet by mouth Daily 01/21/2022 Active Start: 01-21-2022 take 1 tablet by tiear th in the morning Multiple Vitamin (Multi-Vitamin) tablet Take 1 tablet by mouth in the morning. 01/21/2022 Active Start: 01-21-2022 take 1 tablet by tiera th in the morning Multiple Vitamin (Multi-Vitamin) tablet Take 1 tablet by mouth in the morning. 0 01/21/2022 Active multivit-min/ferrous fumarat e (MULTI VITAMIN ORAL) (2 sources) multivit-min/sachi anthony fumarate (MULTI VITAMIN ORAL) daily. [...] chloride 10 meq extended release oral capsule (7 sources) End: 12-19-2023 potassium chloride (KLOR-CON SPRINKLE) 10 MEQ CR capsule Active Comment on above: potassium chloride E R 10 mEq capsule,extended release pregabalin 75 mg oral capsule (20 sources) Start: 01-05-2017 End: 09-29-2023 take 1 capsule by mouth twice daily Pregabalin (Lyrica) 75 mg capsule Active 75 MG PO Twice daily 180 90 September 29, 2023 9:56am take 1 capsule by mouth once fallon ly pregabalin (Lyrica) 75 MG capsule Take 75 mg by mouth Daily Active Comment on above: Lyrica 75 mg capsule proparacaine hydrochloride 5 mg/ml ophthalmic solution (1 source) Local Anesthetic Start: 07-27-19 End: 07-27-19 proparacaine 0.5 % 1 Drop (ALCAINE) spironolactone 25 mg oral tablet (10 sources) Aldosterone Antagonist Start: 01-06-20 End: 07-06-19 take 1 tablet by mouth in the morning spironolactone (ALDACTONE) 25 mg tablet Take 1 tablet (25 mg total) by mouth in the morning. 09/02/2019 Active End: 12-19-2023 take 1 tablet by mouth once spironolactone (Aldactone) 25 MG tablet Take 25 mg by mouth 1 (one) time 12/19/2023 Discontinued Comment on above: spironolactone 25 mg tablet SUMAtriptan 100 mg oral tablet (12 sources) Serotonin-1b and Serotonin-1d Receptor Agonist Start: 07-13-19 take 1 tablet by mouth every twelve hours Imitrex 100 MG tablet 100 mg every 12 (twelve) hours 12/20/2022 Active tropicamide 10 mg/ml ophthalmic solution (2 sources) Anticholinergic Start: 07-27-19 End: 07-27-19 tropicamide 1 % 1 Drop (MYDRIACYL) Start: 07-05-2022 End: 07-05-2022 tropicamide 1 % 1 Drop (MYDR IACYL) Vitamin B Complex (9 sources) take 1 tablet by tiera th [...] b12 1 mg extended release oral tablet (13 sources) Vitamin B12 Start: 2 take 1 tablet by mouth once daily Cyanocobalamin (Vitamin B-12) (Vitamin B-12) 1,000 mcg Tablet Extended Release Active 1000 MCG PO Daily January 21, 2022 12:00am vitamin b6 100 mg oral tablet (17 sources) Start: 2 take 1 tablet by mouth once daily Pyridoxine (Vitamin B6) (Vitamin B-6) 100 mg Tablet Active 100 MG PO Daily January 21, 2022 12:00am warfarin sodium 7.5 mg oral tablet (20 sources) Vitamin K Antagonist Start: Warfarin Active 7.5 - 10 MG PO As Directed March 16, 2017 1:00am Dosing per [facility]:M W F 5 mg rest of week 7.5mg warfarin (Coumad in) 5 MG tablet Take 5 mg by mouth Active Comment on above: warfarin 5 mg tablet Take by oral route. zinc gluconate 77 mg oral lo zenge (10 sources) Zinc 10 MG lozen ge Active Completed/Discontinued Medications Medication Drug Class(es) Dates [...] Injection, Once PRN Pr ocedure, Starting on Tue12/19/23 at 1032, For 1 dose colchicine 0.6 [...] mg, Intra-articular, Once PRN Procedure, Starting on Tue12/19/23 at 1032, For 1 dose pravastatin sodium [...] 60 actuat tiotropium 0.0025 mg/actuat inhalation spray (17 sources) Anticholinergic Start: 01-05-2017 End: 01-30-2024 take 1 puff(s) by inhalation every twenty-four hours Tiotropium [place] (Spiriva Respimat) 2.5 mcg/actuation Mist Discontinued 2 PUFF INHALATION Q24H January 05, 2017 12:00am January 30, 2024 10:18am tiotropium bromi de 2.5 mcg/actuation mist Inhale 2 (two) times a day. Active tiotropium (SPIR EUNICE RESPIMAT) 2.5 mcg/actuation inhaler [...] foot] Onset: 9 Resolved: 3 07-05-2022 Chronic Acquired foot deformities (6 sources) Acquired hammer toe of right foot; 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: [Other hammer toe(s) (acquired), right foot] Onset: 5 07-24-2024 Chronic Chronic obstructive pulmonary disease and bronchiectasis (20 sources) Chronic obstructive lung disease; 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: [Chronic obstructive pulmonary disease, unspecified] Onset: 3 Resolved: 3 02-27-2019 Chronic Fracture of upper limb (4 sources) Other fractures of lower end of right radius, subsequent encounter for closed fracture with routine healing; 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: [OTH FX LOW RT RADUS SUB CLOS FX RTN] Onset: 3 Episodic Other aftercare (8 sources) Encounter for therapeutic drug level monitoring; 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: [Encounter for therapeutic drug monitoring] Onset: 3 01-21-2022 Episodic Other aftercare (1 source) long term (current) use of anticoagulants; 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: [INSURANCE CLAIM APPROVER CURRNT USE ANTICOAGULANTS] Onset: 3 Episodic Other bone disease and musculoskeletal deformities (10 sources) Avascular necrosis of bone; 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: [Other osteonecrosis, left foot] Onset: 4 08-18-2023 Chronic Other circulatory disease (4 sources) Arteritis, unspecified; 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: [Arteritis, unspecified] Onset: 3 01-21-2022 Chronic Other circulatory disease (10 sources) Hypersensitivity angiitis; 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] Onset: 4 08-18-2023 Chronic Other connective tissue disease (1 source) History of left total knee replacement; 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: [Presence of left artificial knee joint] 07-25-2024 Chronic Other connective tissue disease (2 sources) Trochanteric bursitis of right hip; 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: [Trochanteric bursitis, right hip] 12-19-2023 Episodic Other connective tissue disease (2 sources) Tendinitis of right gluteal tendon; 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: [Gluteal tendinitis, right hip] 12-19-2023 Episodic Other diseases of veins and lymphatics (14 sources) Lymphedema; 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: [Lymphedema, not elsewhere classified] Onset: 4 08-18-2023 Chronic Other diseases of veins and lymphatics (1 source) Lymphedema, not elsewhere classified; 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: [Lymphedema, not elsewhere classified] Onset: 4 Chronic Other eye disorders (1 source) Disorder [...] site] 01-21-2022 Chronic Other nervous system disorders (12 sources) Chronic pain; 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: [Other chronic pain] Onset: 7 Resolved: 3 09-14-2022 Chronic Other non-traumatic joint disorders (2 sources) Hip pain; 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: [Pain in right hip] 12-19-2023 Episodic Other non-traumatic joint disorders (2 sources) Pain in right shoulder; 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: [Pain in joint, shoulder region] 04-08-2024 Episodic Other non-traumatic joint disorders (3 sources) Shoulder joint pain; 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: [Pain in unspecified shoulder] Onset: 5 07-24-2024 Episodic Other nutritional; endocrine; and metabolic disorders [...] metabolic, and immunity disorders] 01-21-2022 Episodic Other upper respiratory disease (2 sources) Vasomotor rhinitis; 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: [Vasomotor rhinitis] 07-24-2024 Chronic Phlebitis; thrombophlebitis and thromboembolism (1 source) Chronic embolism and thrombosis of unspecified deep veins of unspecified lower extremity; 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: [CHR EMB THROMB UNS DP VN UNS LW EXT] Onset: 2 Chronic Residual codes; unclassified (10 sources) Device in situ; Translations: [Presence of functional implant, unspecified] Onset: 4 08-18-2023 Chronic Respiratory failure; insufficiency; arrest (adult) (1 source) Respiratory failure; insufficiency; arrest (adult) Onset: 5 Spondylosis; intervertebral disc disorders; other back problems (2 sources) Neck pain; Translations: [Cervicalgia] 04-09-2024 Episodic Unclassified (1 source) Unknown / UNK(Unknown) Onset: 7 Past or Other Problems Problem Classification Problem Date Documented Da te Episodic/Chronic Acquired foot deformities (10 sources) Acquired deformity of toe; Translations: [Other deformities of toe(s) (acquired), left foot] Onset: 08-18-2023 08-18-2023 Episodic Blindness and vision defects (19 sources) Bilateral hyperopia of eyes; Translations: [Hypermetropia, bilateral] Onset: 02-22-2019 Resolved: 09-14-2022 02-22-2019 Episodic Cancer of breast (20 sources) Malignant tumor of breast ; Translations: [Malignant neoplasm of unspecified site of right female breast] Onset: 09-14-2022 Resolved: 09-14-2022 01-18-2018 Chronic Cancer of breast (10 sources) History of malignant neoplasm of breast; Translations: [Personal history of malignant neoplasm of breast] Onset: 08-18-2023 08-18-2023 Episodic Cardiac dysrhythmias (19 sources) Palpitations; Translations: [Palpitations] Onset: 04-29-2022 Resolved: 09-14-2022 07-05-2022 Episodic Cataract (20 sources) After-cataract of bilateral eyes; Translations: [Other secondary cataract, bilateral] Onset: 02-22-2019 Resolved: 09-14-2022 09-18-2019 Chronic Deficiency and other anemia (18 sources) Anemia; Translations: [Anemia, unspecified] Onset: 04-29-2022 Resolved: 09-14-2022 07-05-2022 Episodic Deficiency and other anemia (18 sources) Iron deficiency anemia; Translations: [Iron deficiency anemia, unspecified] Onset: 01-21-2022 Resolved: 09-14-2022 07-05-2022 Episodic Deficiency and other anemia (1 source) Anemia, unspecified; Translations: [ANEMIA UNSPECIFIED] Onset: 04-29-2022 Episodic Diabetes mellitus without complication (19 sources) Abnormal glucose level; Translations: [Other abnormal glucose] Onset: 04-29-2022 Resolved: 09-14-2022 07-05-2022 Episodic Disorders of lipid metabolism (20 sources) Mixed hyperlipidemia; Translations: [Mixed hyperlipidemia] Onset: 04-28-2022 Resolved: 09-14-2022 07-05-2022 Chronic E Codes: Fall (19 sources) Fall on same level from slipping, tripping or stumbling ; Translations: [Fall on same level from slipping, tripping and stumbling without subsequent striking against object, initial encounter] Onset: 03-22-2022 Resolved: 09-14-2022 07-05-2022 Episodic E Codes: Natural/environment (6 sources) Exposure to other specified factors, initial encounter; Translations: [Unspecified accident] Onset: 01-28-2017 07-05-2022 Episodic Glaucoma (20 sources) Primary open angle glaucoma; Translations: [Primary open-angle glaucoma, bilateral, mild stage] Onset: 02-22-2019 Resolved: 09-14-2022 02-22-2019 Chronic Mood disorders (2 sources) Mood disorders Onset: 02-12-2020 02-12-2020 Mycoses (12 sources) Candidiasis of mouth; Translations: [Candidal stomatitis] Onset: 08-10-2018 Resolved: 09-14-2022 09-14-2022 Episodic Osteoarthritis (20 sources) Bilateral osteoarthritis of knees; Translations: [Bilateral primary osteoarthritis of knee] Onset: 09-06-2016 Resolved: 09-14-2022 03-12-2020 Chronic Other aftercare (20 sources) Drug therapy finding; Translations: [Encounter for therapeutic drug level monitoring] Onset: 12-05-2018 Resolved: 09-14-2022 01-22-2019 Episodic Other aftercare (18 sources) Long-term current use of anticoagulant; Translations: [senior living (current) use of anticoagulants] Onset: 02-02-2019 Resolved: 09-14-2022 07-05-2022 Episodic Other aftercare (19 sources) Long-term current use of drug therapy; Translations: [Other watermaster (current) drug therapy] Onset: 03-22-2022 Resolved: 09-14-2022 07-05-2022 Episodic Other aftercare (1 source) Other nursing home (current) drug therapy; Translations: [OTH PRISON CURRENT DRUG THERAPY] Onset: 03-22-2022 Episodic Other bone disease and musculoskeletal deformities (10 sources) Disorder of bone; Translations: [Other specified disorders of bone, ankle and foot] Onset: 08-18-2023 Resolved: 08-18-2023 08-18-2023 Episodic Other circulatory disease (20 sources) Vasculitis; Translations: [Arteritis, unspecified] Onset: 02-10-2017 Resolved: 09-14-2022 07-21-2017 Chronic Other circulatory disease (18 sources) Elevated blood-pressure reading without diagnosis of hypertension; Translations: [Elevated blood-pressure reading, without diagnosis of hypertension] Onset: 04-29-2022 Resolved: 09-14-2022 07-05-2022 Episodic Other circulatory disease (1 source) Elevated blood-pressure reading, without diagnosis of hypertension; Translations: [ELEVATED BP READING W/O DX HTN] Onset: 04-29-2022 Episodic Other connective tissue disease (12 sources) Artificial knee joint present; Translations: [Presence [...] Episodic Other ear and sense organ disorders (12 sources) Impacted cerumen of bilateral ears; Translations: [Impacted cerumen, bilateral] Onset: 09-15-2022 09-15-2022 Episodic Other eye disorders (19 sources) Epithelial basement membrane dystrophy; 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)] Onset: 02-22-2019 Resolved: 09-14-2022 02-22-2019 Episodic Other inflammatory condition of skin (4 sources) Vasculitis limited to the skin, unspecified; Translations: [VASCULITIS LIMITED TO THE SKIN, UNSPECIFIED] Onset: 02-10-2017 Episodic Other nervous system disorders (12 sources) Difficulty walking; Translations: [Difficulty in walking, not elsewhere classified] Onset: 02-14-2020 Resolved: 09-14-2022 09-14-2022 Chronic Other non-traumatic joint disorders (18 sources) Impingement of right ankle joint; Translations: [Other specified joint disorders, right ankle and foot] Onset: 01-03-2019 Resolved: 09-14-2022 07-05-2022 Episodic Other non-traumatic joint disorders (7 sources) Pain of right wrist; Translations: [Pain in right wrist] Onset: 03-19-2022 07-05-2022 Episodic Other non-traumatic joint disorders (2 sources) Pain in right wrist; Translations: [PAIN IN RIGHT WRIST] Onset: 03-22-2022 Episodic Other non-traumatic joint disorders (12 sources) Pain in right knee; Translations: [Pain in joint, lower leg] Onset: 01-08-2018 Resolved: 09-14-2022 09-14-2022 Episodic Other nutritional; endocrine; and metabolic disorders (18 sources) H/O: Disorder; Translations: [Personal history of other endocrine, nutritional and metabolic disease] Onset: 07-05-2022 Resolved: 09-14-2022 07-05-2022 Episodic Other screening for suspected conditions (not mental disorders or infectious disease) (20 sources) Patient encounter status; Translations: [Encounter for screening for osteoporosis] Onset: 07-05-2022 Resolved: 09-14-2022 07-19-2018 Episodic Other upper respiratory disease (14 sources) Polyp of nasal cavity and/or nasal sinus; Translations: [Nasal polyp, unspecified] Onset: 08-10-2018 09-14-2022 Episodic Peripheral and visceral atherosclerosis (18 sources) Peripheral vascular disease; Translations: [Peripheral vascular disease, unspecified] Onset: 11-10-2018 Resolved: 09-14-2022 07-05-2022 Chronic Phlebitis; thrombophlebitis and thromboembolism (20 sources) Embolism from thrombosis of vein of lower extremity ; Translations: [Acute embolism and thrombosis of unspecified deep veins of unspecified lower extremity] Onset: 02-02-2019 Resolved: 09-14-2022 07-05-2022 Episodic Pulmonary heart disease (20 sources) Pulmonary embolism; Translations: [Other pulmonary embolism without acute cor pulmonale] Onset: 07-05-2022 Resolved: 09-14-2022 02-03-2017 Episodic Residual codes; unclassified (18 sources) Acquired absence of breast; 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] Onset: 01-03-2019 Resolved: 09-14-2022 07-05-2022 Episodic Residual codes; unclassified (18 sources) Localized edema; Translations: [Localized edema] Onset: 09-03-2021 Resolved: 09-14-2022 07-05-2022 Episodic Sprains and strains (19 sources) Sprain of right wrist; Translations: [Unspecified sprain of right wrist, initial encounter] Onset: 03-22-2022 Resolved: 09-14-2022 07-05-2022 Episodic Superficial injury; contusion (7 sources) Right wrist contusion; Translations: [Contusion of right wrist, initial encounter] Onset: 03-22-2022 07-05-2022 Episodic Unclassified (1 source) [facility] [address] Z00.00 Onset: 01-28-2017 Urinary tract infections (12 sources) Acute cystitis; Translations: [Acute cystitis without hematuria] Onset: 10-19-2019 Resolved: 09-14-2022 09-14-2022 Episodic Results Test Name Value Interpretation Reference Range Facility MM screening mammo LT w/CADo n 01-23-2024 MM screening mammo LT w/CAD [facility] [address] [place] [address] Mammography Report Signed Patient: Myla Pollack MR#: [id number] : 1950 Acct:[id number] Age/Sex: 73 / F ADM Date: 01/23/24 Loc: XT Room: Type: [facility] RCR Attending Dr: Kacie Garay [...] José Sandoval M.D.01/23/2024 10:09 AM Dictation Location: [facility] Transcribed By: [facility] 01/23/24 1009 Dictated By: José Sandoval DO 01/23/24 1008 Signed By: 01/23/24 1009 Normal [facility] No Panel Informationon 12-18 [...] in the usual sterile fashion. [facility] LASER TRABECULOPLASTY OD (RI GHT EYE)on 09-05-2023 [facility] OCT OPTIC NERVE CIRRUS OU (B OTH EYES)on 07-27-2023 [facility] Radiology Study observation (narrative) [facility] VISUAL FIELD 24-2 OU (BOTH E YES)on 07-27-2023 [facility] Radiology Study observation (narrative) [facility] MRI WRIST RT WO CONon 2022 [...] DINO GREGORY Date: 2022-06-20 13:14 Normal [facility] INSULINon 04-29-2022 Insulin 15.6 uIU/mL Normal 2.6-24.9 [facility] Comment on above: Performed By: #### I NSULIN #### [facility] [address] [place] [address] Dr. Marizol Macedo CBC AUTO DIFFon 04-28-2022 BASO # 0.0 103/ul Normal 0.0-0.1 [facility] Comment on above: Performed By: #### C BC #### [facility] [address] [place] [address] Dr. Marizol Macedo Basophils/100 WBC (Bld) 0.3 % Normal 0.2-2.0 [facility] Comment on above: Performed By: #### C BC #### [facility] [address] [place] [address] Dr. Marizol Macedo EO # 0.1 103/ul Normal 0.0-0.7 [facility] Comment on above: Performed By: #### C BC #### [facility] [address] [place] [address] Dr. Marizol Macedo Eosinophils/100 WBC (Bld) 1.0 % Normal 0.9-7.0 [facility] Comment on above: Performed By: #### C BC #### [facility] [address] [place] [address] Dr. Marizol Macedo Erythrocyte distribution width (RBC) [Ratio] 12.6 % Normal 11.0-15.0 [facility] Comment on above: Performed By: #### C BC #### [facility] [address] [place] [address] Dr. Marizol Macedo Hematocrit (Bld) [Volume fraction] 43.4 % Normal 36.0-48.0 [facility] Comment on above: Performed By: #### C BC #### [facility] [address] [place] [address] Dr. Marizol Macedo Hemoglobin (Bld) [Mass/Vol] 14.1 g/dL Normal 12.0-16.0 [facility] Comment on above: Performed By: #### C BC #### [facility] [address] [place] [address] Dr. Marizol Macedo IG # 0.02 10e3/ul Normal 0.00-0.03 [facility] Comment on above: Performed By: #### C BC #### [facility] [address] [place] [address] Dr. Marizol Macedo IG % 0.3 % Normal 0.0-0.5 [facility] Comment on above: Performed By: #### C BC #### [facility] [address] [place] [address] Dr. Marizol Macedo LYMPH # 2.4 103/ul Normal 1.2-3.8 [facility] Comment on above: Performed By: #### C BC #### [facility] [address] [place] [address] Dr. Marizol Macedo Lymphocytes/100 WBC (Bld) 30.9 % Normal 20.5-60.0 [facility] Comment on above: Performed By: #### C BC #### [facility] [address] [place] [address] Dr. Marizlo Macedo MANUAL DIFF REQ NO Normal [facility] Comment on above: Performed By: #### C BC #### [facility] [address] [address] [address] Marizol Macedo MCH (RBC) [Entitic mass] 30.7 pg Normal 26.7-34.0 [facility] Comment on above: Performed By: #### C BC #### [facility] [address] [place] [address] Dr. Marizol Macedo MCHC (RBC) [Mass/Vol] 32.5 g/dL Normal 29.9-35.2 [facility] Comment on above: Performed By: #### C BC #### [facility] [address] [place] [address] Dr. Marizol Macedo MCV (RBC) [Entitic vol] 94.3 fL Normal 81.0-99.0 [facility] Comment on above: Performed By: #### C BC #### [facility] [address] [place] [address] Dr. Marizol Macedo MONO # 0.4 103/ul Normal 0.3-0.8 [facility] Comment on above: Performed By: #### C BC #### [facility] [address] [place] [address] Dr. Marizol Macedo Monocytes/100 WBC (Bld) 5.4 % Normal 1.7-12.0 [facility] Comment on above: Performed By: #### C BC #### [facility] [address] [place] [address] Dr. Marizol Macedo NEUT # 4.9 103/ul Normal 1.4-6.5 [facility] Comment on above: Performed By: #### C BC #### [facility] [address] [place] [address] Dr. Marizol Macedo Neutrophils/100 WBC (Bld) 62.1 % Normal 43.0-75.0 [facility] Comment on above: Performed By: #### C BC #### [facility] [address] [place] [address] Dr. Marizol Macedo Platelet mean volume (Bld) [Entitic vol] 10.2 fL Normal 9.5-13.5 [facility] Comment on above: Performed By: #### C BC #### [facility] [address] [place] [address] Dr. Marizol Macedo PLT 279 103/ul Normal 150-450 [facility] Comment on above: Performed By: #### C BC #### [facility] [address] [place] [address] Dr. Marizol Macedo RBC 4.60 106/ul Normal 4.20-5.40 [facility] Comment on above: Performed By: #### C BC #### [facility] [address] [place] [address] Dr. Marizol Macedo WBC 7.8 103/ul Normal 4.0-11.0 [facility] Comment on above: Performed By: #### C BC #### [facility] [address] [place] [address] Dr. Marizol Macedo FREE THYROXINE INDEX T7on FTI 3.50 Normal 1.30-4.50 [facility] Comment on above: Performed By: #### L IPID, T7, CMP, TSH #### [facility] [address] [place] [address] Dr. Marizol Macedo T3U 35.0 % Normal 30.0-39.0 [facility] Comment on above: Performed By: #### L IPID, T7, CMP, TSH #### [facility] [address] [place] [address] Dr. Marizol Macedo T4 [Mass/Vol] 10.00 ug/dL Normal 4.80-13.90 [facility] Comment on above: Performed By: #### L IPID, T7, CMP, TSH #### [facility] [address] [place] [address] Dr. Marizol Macedo GLYCOHEMOGLOBIN A1Con 2022 ADA RECOMMENDATION SEE BELOW Normal [facility] Comment on above: Result Comment: ADA RECOMMENDED LIMIT 4.0 - 6.0 ADA THERAPEUTIC TARGET < 7.0 ACTION SUGGESTED > 7.0 Performed By: #### A 1C #### [facility] [address] [address] [address] Marizol Macedo Glucose [Mass/Vol] 114 mg/dL Normal [facility] Comment on above: Performed By: #### A 1C #### [facility] [address] [place] [address] Dr. Marizol Macedo HbA1c (Bld) [Mass fraction] 5.6 % Normal 4.5-6.2 [facility] Comment on above: Performed By: #### A 1C #### [facility] [address] [place] [address] Dr. Marizol Macedo IRONon 04-28-2022 Iron [Mass/Vol] 136.0 ug/dL Normal 50.0-170.0 [facility] Comment on above: Performed By: #### I CECELIA #### [facility] [address] [place] [address] Dr. Marizol Macedo LIPID PROFILEon 04-28-2022 CHOL-HDL RATIO NORM SEE BELOW Normal [facility] Comment on above: Result Comment: 3.3 - 4.4 LOW RISK 4.4 - 7.1 AVERAGE RISK 7.1 - 11.0 MODERATE RISK >11.0 HIGH RISK Performed By: #### L IPID, T7, CMP, TSH #### [facility] [address] [place] [address] Dr. Marizol Macedo Cholesterol [Mass/Vol] 134 mg/dL Normal <=200 [facility] Comment on above: Performed By: #### L IPID, T7, CMP, TSH #### [facility] [address] [place] [address] Dr. Marizol Macedo Cholesterol in HDL [Mass/Vol] 69 mg/dL Critically high 40-60 [facility] Comment on above: Performed By: #### L IPID, T7, CMP, TSH #### [facility] [address] [place] [address] Dr. Marizol Macedo Cholesterol in LDL [Mass/Vol] 46.6 mg/dL Normal [facility] Comment on above: Performed By: #### L IPID, T7, CMP, TSH #### [facility] [address] [place] [address] Dr. Marizol Macedo Cholesterol.total/Ch olesterol in HDL [Mass ratio] 1.9 {ratio} Normal [facility] Comment on above: Performed By: #### L IPID, T7, CMP, TSH #### [facility] [address] [address] [address] Marizol Macedo HDL NORMAL > or = 60 mg/dl - LO W CARDIOVASCULAR RISK <40 mg/dl - HIGH CARDIOVASCULAR RISK Normal [facility] Comment on above: Performed By: #### L IPID, T7, CMP, TSH #### [facility] [address] [address] [address] Marizol Macedo LDL CALC NORMAL SEE BELOW Normal [facility] Comment on above: Result Comment: <100 mg/dl OPTIMAL 100 - 129 mg/dl NEAR OR ABOVE OPTIMAL 130 - 159 mg/dl BORDERLINE HIGH 160 - 189 mg/dl HIGH >190 mg/dl VERY HIGH Performed By: #### L IPID, T7, CMP, TSH #### [facility] [address] [address] [address] Marizol Macedo Triglyceride [Mass/Vol] 92 mg/dL Normal <=150 [facility] Comment on above: Performed By: #### L IPID, T7, CMP, TSH #### [facility] [address] [address] [address] Marizol Macedo VLDL CALC 18.4 mg/dL Normal [facility] Comment on above: Performed By: #### L IPID, T7, CMP, TSH #### [facility] [address] [address] [address] Marizol Macedo PROF 14(COMP METB)on 023 Albumin [Mass/Vol] 3.9 g/dL Normal 3.4-5.0 [facility] Comment on above: Performed By: #### L IPID, T7, CMP, TSH #### [facility] [address] [place] [address] Dr. Marizol Macedo Albumin/Globulin [Mass ratio] 1.1 {ratio} Normal [facility] Comment on above: Performed By: #### L IPID, T7, CMP, TSH #### [facility] [address] [address] [address] Marizol Macedo ALP [Catalytic activity/Vol] 97 U/L Normal 46-116 [facility] Comment on above: Performed By: #### L IPID, T7, CMP, TSH #### [facility] [address] [address] [address] Marizol Macedo ALT [Catalytic activity/Vol] 57 U/L Normal 14-59 [facility] Comment on above: Performed By: #### L IPID, T7, CMP, TSH #### [facility] [address] [address] [address] Marizol Macedo Anion gap [Moles/Vol] 11.9 mmol/L Normal [facility] Comment on above: Performed By: #### L IPID, T7, CMP, TSH #### [facility] [address] [address] [address] Marizol Macedo AST [Catalytic activity/Vol] 35 U/L Normal 15-37 [facility] Comment on above: Performed By: #### L IPID, T7, CMP, TSH #### [facility] [address] [address] [address] Marizol Macedo Bilirubin [Mass/Vol] 0.6 mg/dL Normal 0.2-1.0 [facility] Comment on above: Performed By: #### L IPID, T7, CMP, TSH #### [facility] [address] [address] [address] Marizol Macedo Calcium [Mass/Vol] 9.8 mg/dL Normal 8.5-10.1 [facility] Comment on above: Performed By: #### L IPID, T7, CMP, TSH #### [facility] [address] [address] [address] Marizol Macedo Chloride [Moles/Vol] 103 mmol/L Normal 98-107 [facility] Comment on above: Performed By: #### L IPID, T7, CMP, TSH #### [facility] [address] [address] [address] Marizol Macedo CO2 [Moles/Vol] 28.0 mmol/L Normal 21.0-32.0 [facility] Comment on above: Performed By: #### L IPID, T7, CMP, TSH #### [facility] [address] [address] [address] Marizol Macedo Creatinine [Mass/Vol] 0.75 mg/dL Normal 0.55-1.02 [facility] Comment on above: Performed By: #### L IPID, T7, CMP, TSH #### [facility] [address] [address] [address] Marizol Macedo EGFR-AF MONTSERRATIAN >60 Normal >=60 [facility] Comment on above: Performed By: #### L IPID, T7, CMP, TSH #### [facility] [address] [place] [address] Dr. Marizol Macedo EGFR-NON AF MONTSERRATIAN >60 Normal >=60 [facility] Comment on above: Performed By: #### L IPID, T7, CMP, TSH #### [facility] [address] [place] [address] Dr. Marizol Macedo Globulin (S) [Mass/Vol] 3.5 g/dL Normal [facility] Comment on above: Performed By: #### L IPID, T7, CMP, TSH #### [facility] [address] [address] [address] Marizol Macedo Glucose [Mass/Vol] 91 mg/dL Normal 74-106 [facility] Comment on above: Performed By: #### L IPID, T7, CMP, TSH #### [facility] [address] [address] [address] Marizol Macedo Potassium [Moles/Vol] 3.9 mmol/L Normal 3.5-5.1 [facility] Comment on above: Performed By: #### L IPID, T7, CMP, TSH #### [facility] [address] [address] [address] Marizol Macedo Protein [Mass/Vol] 7.4 g/dL Normal 6.4-8.2 [facility] Comment on above: Performed By: #### L IPID, T7, CMP, TSH #### [facility] [address] [address] [address] Marizol Macedo Sodium [Moles/Vol] 139 mmol/L Normal 136-145 [facility] Comment on above: Performed By: #### L IPID, T7, CMP, TSH #### [facility] [address] [address] [address] Marizol Macedo Urea nitrogen [Mass/Vol] 13.0 mg/dL Normal 7.0-18.0 [facility] Comment on above: Performed By: #### L IPID, T7, CMP, TSH #### [facility] [address] [place] [address] Dr. Marizol Macedo Urea nitrogen/Creatinine [Mass ratio] 17.3 mg/mg Normal [facility] Comment on above: Performed By: #### L IPID, T7, CMP, TSH #### [facility] [address] [place] [address] Dr. Marizol Macedo TSHon 04-28-2022 TSH 1.306 uIU/mL Normal 0.358-3.740 [facility] Comment on above: Performed By: #### L IPID, T7, CMP, TSH #### [facility] [address] [place] [address] Dr. Marizol Macedo CBC W/DIFFon 09-28-2017 ABS BASOPHILS 0.0 10*3/uL Normal 0.0-0.2 [facility] Comment on above: Performed By: #### 4 180, 43268 ####[facility] ABS IMM GRANS 0.0 10*3/uL Normal 0.0-0.2 [facility] Comment on above: Performed By: #### 4 180, 86118 ####[facility] [address] ABS NEUTROPHILS 2.8 10*3/uL Normal 1.6-7.6 [facility] Comment on above: Performed By: #### 4 180, 41242 ####[facility] Basophils Auto #/vol (Bld) 0.5 % Normal 0.0-1.0 [facility] Comment on above: Performed By: #### 4 180, 04563 ####[facility].[address] Eosinophils Auto #/vol (Bld) 0.1 10*3/uL Normal 0.0-0.5 [facility] Comment on above: Performed By: #### 4 1801, 65341 ####[facility].[address] Eosinophils/100 WBC Auto (Bld) 2.3 % Normal 0.0-6.0 [facility] Comment on above: Performed By: #### 4 1801, 10348 ####[facility].[address] Erythrocyte distribution width Auto Ratio (RBC) 12.9 % Normal 11.5-15.0 [facility] Comment on above: Performed By: #### 4 1801, 27379 ####[facility].[address] Hematocrit Auto Volume Fraction (Bld) 42.9 % Normal 36.0-45.0 [facility] Comment on above: Performed By: #### 4 180, 04790 ####[facility].[address] Hemoglobin mass conc (Bld) 14.1 g/dL Normal 12.0-15.0 [facility] Comment on above: Performed By: #### 4 180, 61818 ####[facility].[address] IMMATURE GRANS 0.3 % Normal 0.0-1.0 [facility] Comment on above: Performed By: #### 4 180, 11600 ####[facility] Lymphocytes Auto #/vol (Bld) 2.4 10*3/uL Normal 1.2-4.0 [facility] Comment on above: Performed By: #### 4 180, 55653 ####[facility].[address] Lymphocytes/100 WBC Auto (Bld) 39.5 % Normal 20.0-45.0 [facility] Comment on above: Performed By: #### 4 1801, 92858 ####[address] [facility].[address] MCH Auto Entitic mass (RBC) 30.3 pg Normal 27.0-33.0 [facility] Comment on above: Performed By: #### 4 1801, 75674 ####[address] MCHC Auto mass conc (RBC) 32.9 g/dL Normal 32.0-35.0 [facility] Comment on above: Performed By: #### 4 180, 39108 ####[address] [facility].[address] MCV Auto Entitic volume (RBC) 92.3 fL Normal 82.0-98.0 [facility] Comment on above: Performed By: #### 4 180, 59787 ####[facility].[address] Monocytes Auto #/vol (Bld) 0.7 10*3/uL Normal 0.1-1.0 [facility] Comment on above: Performed By: #### 4 180, 41730 ####[address] MONOS 11.2 % Normal 5.0-12.0 [facility] Comment on above: Performed By: #### 4 180, 40380 ####[facility] Neutrophils/100 WBC Auto (Bld) 46.2 % Normal 40.0-72.0 [facility] Comment on above: Performed By: #### 4 180, 88293 ####[facility].[address] Nucleated RBC/100 WBC Ratio (Bld) 0 % Normal 0-0 [facility] Comment on above: Performed By: #### 4 1801, 82953 ####[address] [address] [facility].[address] PLAT CNT 263 10*3/uL Normal 150-400 [facility] Comment on above: Performed By: #### 4 180, 30721 ####[facility].[address] RBC Auto #/vol (Bld) 4.65 10*6/uL Normal 3.80-5.00 [facility] e [facility] Comment on above: Performed By: #### 4 1801, 71600 ####[facility].[address] WBC Auto #/vol (Bld) 6.07 10*3/uL Normal 4.00-10.60 [facility] e [facility] Comment on above: Performed By: #### 4 1801, 97117 ####[facility].[address] COMP METABOLIC PANELon 09-28 Albumin mass conc 4.1 g/dL Normal 3.5-5.7 [facility] Comment on above: Performed By: #### 4 1801, 53584 ####[address] [facility] [place] [address], [place] ALKALINE PHOSPH 73 IU/L Normal 34-104 [facility] Comment on above: Performed By: #### 4 180, 04374 ####[facility] [place] [address], [facility] ALT enzyme act/vol 54 U/L High 7-52 [facility] Comment on above: Performed By: #### 4 180, 66830 ####[facility] [place] [address], [place] AST enzyme act/vol 40 U/L High 13-39 [facility] Comment on above: Performed By: #### 4 180, 44009 ####[facility] [place] [address], [place] Bilirubin mass conc 0.4 mg/dL Normal 0.3-1.0 [facility] Comment on above: Performed By: #### 4 180, 21152 ####[facility] [place] [address], [place] Calcium mass conc 9.7 mg/dL Normal 8.6-10.3 [facility] Comment on above: Performed By: #### 4 180, 99871 ####[facility] [place] [address], [place] Chloride molar conc 103 mmol/L Normal 98-107 [facility] Comment on above: Performed By: #### 4 180, 24561 ####[facility] [place] [address], [place] CO2 molar conc 28 mmol/L Normal 21-31 [facility] Comment on above: Performed By: #### 4 180, 96525 ####[facility] [place] [address], [place] Creatinine mass conc 0.81 mg/dL Normal 0.60-1.20 [facility] Comment on above: Performed By: #### 4 180, 41606 ####[facility] [place] [address], [place] GFR/1.73 sq M predicted among blacks MDRD vol rate/area (S/P/Bld) mL/min/{1.73_m2} Normal >60 [facility] Comment on above: Performed By: #### 4 180, 23354 ####[facility] [place] [address], [place] GFR/1.73 sq M predicted among non-blacks MDRD vol rate/area (S/P/Bld) mL/min/{1.73_m2} Normal >60 [facility] Comment on above: Performed By: #### 4 180, 49211 ####[facility] [place] [address], [place] Glucose mass conc 95 mg/dL Normal 70-100 [facility] Comment on above: Performed By: #### 4 180, 71313 ####[facility] [place] [address], [place] Potassium molar conc 4.4 mmol/L Normal 3.5-5.1 [facility] Comment on above: Performed By: #### 4 180, 70342 ####[facility] [place] [address], [place] Protein mass conc 7.2 g/dL Normal 6.0-8.3 [facility] Comment on above: Performed By: #### 4 180, 59977 ####[facility] [place] [address], [place] Sodium molar conc 139 mmol/L Normal 136-145 [facility] Comment on above: Performed By: #### 4 180, 54564 ####[facility] [place] [address], [place] Urea nitrogen mass conc 19 mg/dL Normal 7-25 [facility] Comment on above: Performed By: #### 4 180, 56859 ####[facility] Glucose Glucometer (BldC) [M ass/Vol]on 08-17-2017 Glucose [Mass/Vol] 99 mg/dL [facility] Comment on above: Random Glucose Refer ence Range is dependent on time and content of last meal. Glucose of more than 200 mg/dL in a nonstressed, ambulatory subject supports the diagnosis of Diabetes Mellitus. CBC W/DIFFon 03-31-2017 Basophils Auto #/vol (Bld) 0.3 % Normal 0.0-2.0 [facility] Comment on above: Performed By: #### 4 180, 19377 ####[facility] Eosinophils/100 WBC Auto (Bld) 2.1 % Normal 0.0-5.0 [facility] Comment on above: Performed By: #### 4 180, 60215 ####[facility] Erythrocyte distribution width Auto Ratio (RBC) 13.0 % Normal 11.5-16.9 [facility] Comment on above: Performed By: #### 4 180, 43371 ####[facility] Hematocrit Auto Volume Fraction (Bld) 42.6 % Normal 36.0-48.0 [facility] Comment on above: Performed By: #### 4 180, 07351 ####[facility] Hemoglobin mass conc (Bld) 14.3 g/dL Normal 12.0-15.0 [facility] Comment on above: Performed By: #### 4 180, 53006 ####[facility] Lymphocytes/100 WBC Auto (Bld) 29.7 % Normal 20.0-40.0 [facility] Comment on above: Performed By: #### 4 180, 92018 ####[facility] MCH Auto Entitic mass (RBC) 30.7 pg Normal 24.0-32.0 [facility] Comment on above: Performed By: #### 4 180, 83774 ####[facility] MCHC Auto mass conc (RBC) 33.7 g/dL Normal 32.0-36.0 [facility] Comment on above: Performed By: #### 4 180, 22877 ####[facility] MCV Auto Entitic volume (RBC) 91.2 fL Normal 80.0-100.0 [facility] Comment on above: Performed By: #### 4 180, 08250 ####[facility] METHOD Normal RBC Morphology Normal [facility] Comment on above: Performed By: #### 4 180, 98815 ####[facility] MONOS 6.4 % Normal 2-8 [facility] Comment on above: Performed By: #### 4 180, 35515 ####[facility] Neutrophils/100 WBC Auto (Bld) 61.5 % Normal 50-70 [facility] Comment on above: Performed By: #### 4 180, 78622 ####[facility] [place] [address], [facility] PLAT CNT 261 Thou/mm3 Normal 100-400 [facility] Comment on above: Performed By: #### 4 180, 48644 ####[facility] [place] [address], [facility] RBC Auto #/vol (Bld) 4.67 mill/mm3 Normal 3.50-5.50 [facility] Comment on above: Performed By: #### 4 180, 73041 ####[facility] [place] [address], [facility] WBC Auto #/vol (Bld) 6.6 Thou/mm3 Normal 4.0-10.0 [facility] Comment on above: Performed By: #### 4 180, 16444 ####[facility] COMP METABOLIC PANELon 03-31 Albumin mass conc 4.0 g/dL Normal 3.5-5.7 [facility] Comment on above: Performed By: #### 4 180, 43958 ####[facility] ALKALINE PHOSPH 73 IU/L Normal 34-104 [facility] Comment on above: Performed By: #### 4 180, 78062 ####[facility] ALT enzyme act/vol 49 U/L Normal 7-52 [facility] Comment on above: Performed By: #### 4 180, 58326 ####[facility] AST enzyme act/vol 34 U/L Normal 13-39 [facility] Comment on above: Performed By: #### 4 180, 63783 ####[facility] [place] [address], [facility] Bilirubin mass conc 0.3 mg/dL Normal 0.3-1.0 [facility] Comment on above: Performed By: #### 4 180, 17627 ####[facility] [place] [address], [facility] Calcium mass conc 10.0 mg/dL Normal 8.6-10.3 [facility] Comment on above: Performed By: #### 4 180, 73421 ####[facility] [place] [address], [facility] Chloride molar conc 103 mmol/L Normal 98-107 [facility] Comment on above: Performed By: #### 4 180, 56881 ####[facility] [place] [address], [facility] CO2 molar conc 29 mmol/L Normal 21-31 [facility] Comment on above: Performed By: #### 4 180, 81102 ####[facility] [place] [address], [facility] Creatinine mass conc 0.86 mg/dL Normal 0.60-1.20 [facility] Comment on above: Performed By: #### 4 180, 39674 ####[place] [address] [place] [address], [facility] GFR/1.73 sq M predicted among blacks MDRD vol rate/area (S/P/Bld) mL/min/{1.73_m2} Normal >60 [facility] Comment on above: Performed By: #### 4 180, 09365 ####[facility] [id number], [facility] GFR/1.73 sq M predicted among non-blacks MDRD vol rate/area (S/P/Bld) mL/min/{1.73_m2} Normal >60 [facility] Comment on above: Performed By: #### 4 180, 74324 ####[facility] [place] [address], [facility] Glucose mass conc 86 mg/dL Normal 70-100 [facility] Comment on above: Performed By: #### 4 1802, 82290 ####[facility] [place] [address], [facility] Potassium molar conc 4.1 mmol/L Normal 3.5-5.1 [facility] Comment on above: Performed By: #### 4 1802, 22613 ####[facility] [facility] [place] [address], [facility] Protein mass conc 7.0 g/dL Normal 6.0-8.3 [facility] Comment on above: Performed By: #### 4 1802, 37725 ####[facility] [place] [address], [facility] Sodium molar conc 138 mmol/L Normal 136-145 [facility] Comment on above: Performed By: #### 4 180, 12361 ####[facility] [facility] [place] [address], [facility] Urea nitrogen mass conc 14 mg/dL Normal 7-25 [facility] Comment on above: Performed By: #### 4 1802, 68753 ####[facility] ANAon 02-10-2017 HELENE SCREEN <1:40 Normal <1:40,1:40 [facility] Comment on above: Performed By: #### 1 0008 ####[facility].[address] ANCA IGG WITH REFLEX [id number] on 02-10-2017 ANCA <1:20 Normal <1:20 [facility] Comment on above: Result Comment: The ANCA IFA is <1:20; therefore, no further testing willbe performed.INTERPRETIVE INFORMATION: Anti-Neutrophil Cyto Ab, IgGNeutrophil Cytoplasmic Antibodies (C-ANCA = granularcytoplasmic staining, P-ANCA = perinuclear staining) arefound in the serum of over 90 percent of patients withcertain necrotizing systemic vasculitides, and usually inless than 5 percent of patients with collagen vasculardisease or arthritis.Performed by [facility] [employer],[address] [place] [address] [id number] iaj.Cliq, Onel Connelly MD - Lab. Director ANTI DNAon 02-10-2017 ANTI DNA <1:10 Normal <1:10 [facility] Comment on above: Performed By: #### 1 0008 ####[facility] [place] [address], [facility] ANTI-BETA 2 GLYCOPROTEIN 1on 02-10-2017 ANTI B2GP1 IGA 9.3 a units Normal 0.0-19.9 [facility] Comment on above: Performed By: #### 1 0008 ####[facility] [place] [address], [facility] ANTI B2GP1 IGG 1.1 g units Normal 0.0-19.9 [facility] Comment on above: Performed By: #### 1 0008 ####[facility] [place] [address], [facility] ANTI B2GP1 IGM 2.5 m units Normal 0.0-19.9 [facility] Comment on above: Performed By: #### 1 0008 ####[facility] [place] [address], [facility] ANTI-ENAon 02-10-2017 ANTI SM Negative Normal NEG,NEGATIVE,N eg [facility] Comment on above: Performed By: #### 1 0008 ####[facility] [place] [address], [place] ANTI SM/ANTIRNP Negative Normal NEG,NEGATIVE ,N eg [facility] Comment on above: Performed By: #### 1 0008 ####[facility] [place] [address], [place] ANTICARDIOLIPIN ANTIBODYon 1 04-12-2016 CARDIOLIPIN IGA 4.9 APL Normal 0.0-21.9 [facility] Comment on above: Performed By: #### 1 0008 ####[facility].[address] CARDIOLIPIN IGG 14.5 GPL Normal 0.0-22.9 [facility] Comment on above: Performed By: #### 1 0008 ####[facility] CARDIOLIPIN IGM 9.5 MPL Normal 0.0-10.9 [facility] Comment on above: Performed By: #### 1 0008 ####[facility].[address] CBC W/DIFFon 02-10-2017 Basophils Auto #/vol (Bld) 0.4 % Normal 0.0-2.0 [facility] Comment on above: Performed By: #### 5 0103 ####[facility].[address] Eosinophils/100 WBC Auto (Bld) 2.5 % Normal 0.0-5.0 [facility] Comment on above: Performed By: #### 5 0103 ####[facility].[address] Erythrocyte distribution width Auto Ratio (RBC) 14.5 % Normal 11.5-16.9 [facility] Comment on above: Performed By: #### 5 0103 ####[facility].[address] Hematocrit Auto Volume Fraction (Bld) 41.0 % Normal 36.0-48.0 [facility] Comment on above: Performed By: #### 5 0103 ####[facility].[address] Hemoglobin mass conc (Bld) 13.6 g/dL Normal 12.0-15.0 [facility] Comment on above: Performed By: #### 5 0103 ####[facility] Lymphocytes/100 WBC Auto (Bld) 26.7 % Normal 20.0-40.0 [facility] Comment on above: Performed By: #### 5 0103 ####[facility] MCH Auto Entitic mass (RBC) 30.5 pg Normal 24.0-32.0 [facility] Comment on above: Performed By: #### 5 3 ####[facility] MCHC Auto mass conc (RBC) 33.2 g/dL Normal 32.0-36.0 [facility] Comment on above: Performed By: #### 5 3 ####[facility] MCV Auto Entitic volume (RBC) 91.8 fL Normal 80.0-100.0 [facility] Comment on above: Performed By: #### 3 ####[facility] METHOD Normal RBC Morphology Normal [facility] Comment on above: Performed By: #### 5 3 ####[facility] MONOS 6.6 % Normal 2-8 [facility] Comment on above: Performed By: #### 5 3 ####[facility] Neutrophils/100 WBC Auto (Bld) 63.8 % Normal 50-70 [facility] Comment on above: Performed By: #### 102 ####[facility] [place] [address], [facility] PLAT CNT 310 Thou/mm3 Normal 100-400 [facility] Comment on above: Performed By: #### 102 ####[facility] [place] [address], [facility] RBC Auto #/vol (Bld) 4.47 mill/mm3 Normal 3.50-5.50 [facility] Comment on above: Performed By: #### 102 ####[facility] [place] [address], [facility] WBC Auto #/vol (Bld) 7.6 Thou/mm3 Normal 4.0-10.0 [facility] Comment on above: Performed By: #### 102 ####[facility] COMP METABOLIC PANELon 02-10 Albumin mass conc 4.3 g/dL Normal 3.5-5.7 [facility] Comment on above: Performed By: #### 0 0121 ####[facility].[address] ALKALINE PHOSPH 89 IU/L Normal 34-104 [facility] Comment on above: Performed By: #### 0 0121 ####[facility] ALT enzyme act/vol 35 U/L Normal 7-52 [facility] Comment on above: Performed By: #### 0 0121 ####[facility].[address] AST enzyme act/vol 27 U/L Normal 13-39 [facility] Comment on above: Performed By: #### 0 0121 ####[facility] [place] [address], [facility] Bilirubin mass conc 0.4 mg/dL Normal 0.3-1.0 [facility] Comment on above: Performed By: #### 0 0121 ####[facility] [place] [address], [facility] Calcium mass conc 9.9 mg/dL Normal 8.6-10.3 [facility] Comment on above: Performed By: #### 0 0121 ####[facility] [place] [address], [facility] Chloride molar conc 102 mmol/L Normal 98-107 [facility] Comment on above: Performed By: #### 0 0121 ####[facility] [place] [address], [facility] CO2 molar conc 25 mmol/L Normal 21-31 [facility] Comment on above: Performed By: #### 0 0121 ####[facility] [place] [address], [facility] Creatinine mass conc 0.87 mg/dL Normal 0.60-1.20 [facility] Comment on above: Performed By: #### 0 0121 ####[facility] [place] [address], [facility] GFR/1.73 sq M predicted among blacks MDRD vol rate/area (S/P/Bld) mL/min/{1.73_m2} Normal >60 [facility] Comment on above: Performed By: #### 0 0121 ####[facility] [place] [address], [facility] GFR/1.73 sq M predicted among non-blacks MDRD vol rate/area (S/P/Bld) mL/min/{1.73_m2} Normal >60 [facility] Comment on above: Performed By: #### 0 0121 ####[facility] [place] [address], [facility] Glucose mass conc 99 mg/dL Normal 70-100 [facility] Comment on above: Performed By: #### 0 0121 ####[facility] [place] [address], [facility] Potassium molar conc 4.1 mmol/L Normal 3.5-5.1 [facility] Comment on above: Performed By: #### 0 0121 ####[facility] [place] [address], [facility] Protein mass conc 7.5 g/dL Normal 6.0-8.3 [facility] Comment on above: Performed By: #### 0 0121 ####[facility] [place] [address], [facility] Sodium molar conc 136 mmol/L Normal 136-145 [facility] Comment on above: Performed By: #### 0 0121 ####[facility] [place] [address], [facility] Urea nitrogen mass conc 20 mg/dL Normal 7-25 [facility] Comment on above: Performed By: #### 0 0121 ####[facility] [place] [address], [facility] COMPLEMENT 3on 02-10-2017 COMPLEMENT 3 154 mg/dL High 79-152 [facility] Comment on above: Performed By: #### 1 0204, 43064, 33033 ####[facility] [place] [address], [facility] COMPLEMENT 4on 02-10-2017 COMPLEMENT 4 34 mg/dL Normal 16-38 [facility] Comment on above: Performed By: #### 1 0204, 54851, 47711 ####[facility] [place] [address], [facility] CREATININE URINE RANDOMon CREATININE 138.0 mg/dL Normal [facility] Comment on above: Result Comment: Ther e are no established reference values for random urine specimens Performed By: #### 4 1802, 09633 ####[facility] [place] [address], [facility] CRYOGLOBULIN ILon 02-10-2017 CRYOGLOBULIN 0 mg/dL Normal 0-10 [facility] [place] Normal [facility] CYCLIC [place]ULLINATED PEPTIDE [place] [id number] 02-10-2017 CYCLIC CIT PEP 6 Units Normal 0-19 [facility] Comment on above: Result Comment: INTE RPRETIVE [...] results should bemonitored and testing repeated.Performed by [employer],[address] [place] [address] [id number] ztp.Cliq, Onel Connelly MD - Lab. Director HEPATITIS B CORE ANTIBODYon 02-10-2017 HEP B CORE AB NONREACTIVE Normal NONREACTIVE [facility] Comment on above: Performed By: #### 3 1397, 85283, 90198, 82655 ####[facility] [place] [address], [facility] HEPATITIS B SURFACE ANTIBODY QUANTon 02-10-2017 HEP B SURF AB 0.00 mIU/ml Normal [facility] Comment on above: Result Comment: INTE RPRETATION:NONREACTIVE<8.00 mIU/mLINDETERMINATE8.00 - 12.00 mIU/mLREACTIVE>12 mIU/mL Performed By: #### 1 0008 ####[facility] HEPATITIS B SURFACE ANTIGEN QUALon 02-10-2017 HEP B SURF AG QUAL NONREACTIVE Normal NONREACTIVE [facility] Comment on above: Performed By: #### 1 0008 ####[facility] [place] [address], [facility] HEPATITIS C ANTIBODYon 02-10 ANTI-HCV NONREACTIVE Normal NONREACTIVE [facility] Comment on above: Performed By: #### 3 1397, 18526, 99672, 34480 ####[facility].[address] RHEUMATOID FACTOR SERUMon RA <20 Normal 0-20 [facility] Comment on above: Performed By: #### 1 0204, 78733, 66998 ####[facility].[address] SJOGRENS ANTIBODIESon 2016 SS-A Negative Normal NEG,NEGATIVE,N eg [facility] Comment on above: Performed By: #### 1 0008 ####[place] [address] [facility].[address] SS-B Negative Normal NEG,NEGATIVE,N eg [facility] Comment on above: Performed By: #### 1 0008 ####[facility] [place] [address], [facility] T PROT UR Adam 02-10-2017 Protein mass conc 29.0 mg/dL Normal [facility] Comment on above: Result Comment: Ther e are no established reference values for random urine specimens Performed By: #### 4 8522, 47741 ####[facility].[address] TB QUANTIFERONon 02-10-2017 MITOGEN MINUS NIL >=10 Normal [facility] Comment on above: Performed By: #### 4 1802, 53706 ####[facility].[address] NIL 0.03 IU/mL Normal [facility] Comment on above: Performed By: #### 4 1802, 57180 ####[facility].[address] TB AG MINUS NIL 0.01 IU/mL Normal [facility] Comment on above: Performed By: #### 4 1802, 97965 ####[place] [address] [facility].[address] TB ANTIGEN 0.04 IU/mL Normal [facility] Comment on above: Performed By: #### 4 1802, 83436 ####[facility] [address] TB QUANTIFERON Negative Normal NEGATIVE [facility] Comment on above: Result Comment: Boy tiferon [...] and LTBI(http://www.cdc.gov/nchstp/tb/). Performed By: #### 4 1802, 51506 ####[facility].[address] URINALYSISon 02-10-2017 APPEARANCE CLOUDY Abnormal CLEAR [facility] Comment on above: Performed By: #### 1 0008 ####[facility] [place] [address], [facility] BACTERIA MOD Abnormal NONE SEEN [facility] Comment on above: Performed By: #### 1 0008 ####[facility] [place] [address], [facility] BILIRUBIN Negative Normal NEGATIVE [facility] Comment on above: Performed By: #### 1 0008 ####[facility] [place] [address], [facility] BLOOD Negative Normal NEGATIVE [facility] Comment on above: Performed By: #### 1 0008 ####[facility] [place] [address], [facility] COLOR YELLOW Normal YELLOW [facility] Comment on above: Performed By: #### 1 0008 ####[facility] [place] [address], [facility] EPIS MANY Abnormal FEW [facility] Comment on above: Performed By: #### 1 0008 ####[facility] [place] [address], [facility] GLUCOSE Negative Normal NEGATIVE [facility] Comment on above: Performed By: #### 1 0008 ####[facility] [place] [address], [facility] INR Coag RelTime (Bld) 0-2 Abnormal 0-0 [facility] Comment on above: Performed By: #### 1 0008 ####[facility] [place] [address], [facility] KETONE Negative Normal NEGATIVE [facility] Comment on above: Performed By: #### 1 0008 ####[facility] LEUK DIMPLE LARGE Abnormal NEGATIVE [facility] Comment on above: Performed By: #### 1 0008 ####[facility].[address] MUCUS THREADS OCC Abnormal NONE SEEN [facility] Comment on above: Performed By: #### 1 0008 ####[facility] [address] NITRITE Negative Normal NEGATIVE [facility] Comment on above: Performed By: #### 1 0008 ####[facility] [address] PH 5.0 Normal 5.0-8.0 [facility] Comment on above: Performed By: #### 1 0008 ####[facility] [address] Protein mass conc Negative Normal NEGATIVE [facility] Comment on above: Performed By: #### 1 0008 ####[facility] [address] SPEC GRAV 1.020 Normal 1.015-1.020 [facility] Comment on above: Performed By: #### 1 0008 ####[facility] [address] WBC UA >100 Abnormal 0-0 [facility] Comment on above: Performed By: #### 1 0008 ####[facility] [address] CYTOLOGY SPECIMENon 02-02-20 CYTOLOGY SPEC Normal [facility] Comment on above: Order Comment: Comme nt: A. PERIESOPHAGEAL LESION FNA - CYTOLYT, 10 SLIDES Result Comment: Note : Specimens received on or after December:* Pathology and Cytology reports are located in [facility] in the folder labeled Medical Record Forms.* Reports are also in the Physician Portal.* Reports will be faxed to phycician's office.* For assistance locating reports call: * Willard Guadarrama [phone] * LAB [phone] Performed By: #### L CYTO ####[id number] [place] [address] Albumin [Mass/volume] in Ser um or Plasmaon 01-03-2017 Albumin [Mass/Vol] 3.3 g/dL 3.2-5.5 [facility] Basophils Auto (Bld) [#/Vol] on 01-03-2017 Basophils (Bld) [#/Vol] 0.0 10*3/uL 0.0-0.2 [facility] Basophils/100 WBC Auto (Bld) on 01-03-2017 Basophils/100 WBC (Bld) 0.6 % . [facility] Creatinine and Glomerular fi ltration rate.predicted panel (S/P/Bld)on 01-03-2017 Creatinine [Mass/Vol] 1.00 mg/dL 0.44-1.03 [facility] Eosinophils Auto (Bld) [#/Vo l]on 01-03-2017 Eosinophils (Bld) [#/Vol] 0.1 10*3/uL 0.0-0.45 [facility] [facility] Eosinophils/100 WBC Auto (Bl d)on 01-03-2017 Eosinophils/100 WBC (Bld) 1.5 % . [facility] Erythrocyte distribution wid th Auto (RBC) [Ratio]on 01-03-2017 Erythrocyte distribution width (RBC) [Ratio] 14.5 % 11.9-15.3 [facility] Estimated glomerular filtrat ion rate (GFR) non- Americanon 01-03-2017 GFR/1.73 sq M.predicted among non-blacks MDRD (S/P/Bld) [Vol rate/Area] 56 mL/min/{1.73_m2} [facility] Globulin Calc (S) [Mass/Vol] on 01-03-2017 Globulin (S) [Mass/Vol] 3.6 g/dL [facility] Hematocrit Auto (Bld) [Volum e fraction]on 01-03-2017 Hematocrit (Bld) [Volume fraction] 36.3 % 34.0-46.4 [facility] Hemoglobin [Mass/volume] in Bloodon 01-03-2017 Hemoglobin (Bld) [Mass/Vol] 12.1 g/dL 11.8-15.4 [facility] Laboratory - Chemistry and C hemistry - challengeon 01-03-2017 GFR/1.73 sq M.predicted among blacks MDRD (S/P/Bld) [Vol rate/Area] mL/min/{1.73_m2} [facility] Comment on above: GFR estimated refere nce range: According to KDOQI guidelines, <60 ml/min/1.73m2 is sufficient to diagnose a patient with chronic kidney disease. Lymphocytes Auto (Bld) [#/Vo l]on 01-03-2017 Lymphocytes (Bld) [#/Vol] 2.1 10*3/uL 1.00-4.8 [facility] Lymphocytes/100 WBC Auto (Bl d)on 01-03-2017 Lymphocytes/100 WBC (Bld) 27.4 % . [facility] MCH Auto (RBC) [Entitic mass ]on 01-03-2017 MCH (RBC) [Entitic mass] 30.8 pg 24.7-34.3 [facility] MCHC Auto (RBC) [Mass/Vol]on 01-03-2017 MCHC (RBC) [Mass/Vol] 33.4 g/dL 32.0-35.0 [facility] MCV Auto (RBC) [Entitic vol] on 01-03-2017 MCV (RBC) [Entitic vol] 92.4 fL 80-100 [facility] Monocytes Auto (Bld) [#/Vol] on 01-03-2017 Monocytes (Bld) [#/Vol] 1.0 10*3/uL High 0.0-0.8 [facility] Monocytes/100 WBC Auto (Bld) on 01-03-2017 Monocytes/100 WBC (Bld) 12.7 % . [facility] Neutrophils Auto (Bld) [#/Vo l]on 01-03-2017 Neutrophils (Bld) [#/Vol] 4.4 10*3/uL 1.8-7.7 [facility] Neutrophils/100 WBC Auto (Bl d)on 01-03-2017 Neutrophils/100 WBC (Bld) 57.8 % . [facility] No Panel Informationon 01-03 Pharmacy Creatinine Clearance (Chem N/A [facility] Platelet mean volume Auto (B ld) [Entitic vol]on 01-03-2017 Platelet mean volume (Bld) [Entitic vol] 8.2 fL 6.3-10.7 [facility] Platelets Auto (Bld) [#/Vol] on 01-03-2017 Platelets (Bld) [#/Vol] 429 10*3/uL 150-450 [facility] Protein [Mass/volume] in Ser um or Plasmaon 01-03-2017 Protein [Mass/Vol] 6.9 g/dL 6.1-7.9 [facility] RBC Auto (Bld) [#/Vol]on RBC (Bld) [#/Vol] 3.93 10*6/uL 3.60-5.00 [facility] Serum or plasma alanine briggs otransferase measurement without P-5'-P (enzymatic activion 01-03-2017 ALT No additional P-5'-P [Catalytic activity/Vol] 37 U/L 1060 [facility] Serum or plasma albumin/glob ulin mass ratioon 01-03-2017 Albumin/Globulin [Mass ratio] 0.9 {ratio} [facility] Serum or plasma alkaline bita sphatase measurement (enzymatic activity/volume)on 01-03-2017 ALP [Catalytic activity/Vol] 89 U/L 32-92 [facility] Serum or plasma aspartate am inotransferase measurement (enzymatic activity/volume)on 01-03-2017 AST [Catalytic activity/Vol] 30 U/L 10-42 [facility] Serum or plasma calcium katheryn urement (mass/volume)on 01-03-2017 Calcium [Mass/Vol] 9.4 mg/dL 8.2-10.2 [facility] Serum or plasma chloride claudia surement (moles/volume)on 01-03-2017 Chloride [Moles/Vol] 98 mmol/L 95-114 [facility] Serum or plasma glucose katheryn urement (mass/volume)on 01-03-2017 Glucose [Mass/Vol] 107 mg/dL High 70-100 [facility] Comment on above: ADA recommended refe rence rangeRandom Glucose Reference Range is dependent on time and content of last meal. Glucose of more than 200 mg/dL in a nonstressed, ambulatory subject supports the diagnosis of Diabetes Mellitus. Serum or plasma potassium me asurement (moles/volume)on 01-03-2017 Potassium [Moles/Vol] 4.1 mmol/L 3.5-5.1 [facility] Serum or plasma sodium measu rement (moles/volume)on 01-03-2017 Sodium [Moles/Vol] 139 mmol/L 136-146 [facility] Serum or plasma total biliru bin measurement (mass/volume)on 01-03-2017 Bilirubin [Mass/Vol] 0.3 mg/dL 0.3-1.2 [facility] Serum or plasma total carbon dioxide measurement (moles/volume)on 01-03-2017 CO2 [Moles/Vol] 29.5 mmol/L 22.0-30.0 [facility] Serum or plasma urea nitroge n measurement (mass/volume)on 01-03-2017 Urea nitrogen [Mass/Vol] 12 mg/dL 9-23 [facility] WBC Auto (Bld) [#/Vol]on WBC (Bld) [#/Vol] 7.6 10*3/uL 3.8-11.6 [facility] No Panel Information [facility] Vital Signs Date Time Vital Sign Value Performing Clinician Facility 07-24-2024 11: Body height 160 cm Sarahi Pierson MD Work Phone: [facility] 07-24-2024 11:13040 Body mass index (BMI) [Ratio] 27.99 kg/m2 Sarahi Pierson MD Work Phone: [facility] 07-24-2024 11:13040 Body weight 71.67 kg Sarahi Pierson MD Work Phone: [facility] 07-24-2024 11:13040 Diastolic blood pressure 72 mm[Hg] Sarahi Pierson MD Work Phone: [facility] 07-24-2024 11:13-0400 Heart rate 91 /min Sarahi Pierson MD Work Phone: [facility] 07-24-2024 11:13-0400 Systolic blood pressure 123 mm[Hg] Sarahi Pierson MD Work Phone: [facility] 07-12-2024 08:19-0400 Body height 160 cm Lynsey Saldana MD Work Phone: [facility] 07-12-2024 08:19-0400 Body mass index (BMI) [Ratio] 28.7 kg/m2 Lynsey Saldana MD Work Phone: [facility] 07-12-2024 08:19-0400 Body temperature 97.59 [degF] Lynsey aSldana MD Work Phone: [facility] 07-12-2024 08:19-0400 Body weight 73.48 kg Lynsey Saldana MD Work Phone: [facility] 07-12-2024 08:19-0400 Diastolic blood pressure 78 mm[Hg] Lynsey Saldana MD Work Phone: [facility] 07-12-2024 08:19-0400 Heart rate 78 /min Lynsey Saldana MD Work Phone: [facility] 07-12-2024 08:19-0400 SaO2% (BldA) [Mass fraction] 97 % Lynsey Saldana MD Work Phone: [facility] 07-12-2024 08:19-0400 Systolic blood pressure 136 mm[Hg] Lynsey Saldana MD Work Phone: [facility] 01-30-2024 10:17-0400 Body height 167.64 cm MD Christian Steiner Work Phone: [facility] 01-30-2024 10:17-0400 Body mass index (BMI) [Ratio] 26.3 kg/m2 MD Christian Steiner Work Phone: [facility] 01-30-2024 10:17-0400 Body temperature 97.3 [degF] MD Christian Steiner Work Phone: [facility] 01-30-2024 10:170400 Body weight 73.93 kg MD Christian Steiner Work Phone: [facility] 01-30-2024 10:17-0400 Heart rate 86 /min MD Christian Steiner Work Phone: [facility] 01-30-2024 10:17-0400 Respiratory rate 16 /min MD Christian Steiner Work Phone: [facility] 01-30-2024 10:17-0400 SaO2% (BldA) [Mass fraction] 96 % MD Christian Steiner Work Phone: [facility] 07-14-2023 11:29-0400 Body height 157.5 cm Lynsey Saldana MD Work Phone: [facility] 07-14-2023 11:29-0400 Body mass index (BMI) [Ratio] 30 kg/m2 Lynsey Saldana MD Work Phone: [facility] 07-14-2023 11:29-0400 Body weight 74.39 kg Lynsey Saldana MD Work Phone: [facility] 07-14-2023 11:29-0400 Diastolic blood pressure 84 mm[Hg] Lynsey Saldana MD Work Phone: [facility] 07-14-2023 11:29-0400 Heart rate 79 /min Lynsey Saldana MD Work Phone: [facility] 07-14-2023 11:29-0400 Systolic blood pressure 134 mm[Hg] Lynsey Saldana MD Work Phone: [facility] 01-21-2023 09:58-0400 Body temperature 97.2 [degF] MD Christian Steiner Work Phone: [facility] 01-21-2023 09:58-0400 Body weight 76.65 kg MD Christian Steiner Work Phone: [facility] 01-21-2023 09:58-0400 Diastolic blood pressure 78 mm[Hg] MD Christian Steiner Work Phone: [facility] 01-21-2023 09:58-0400 Heart rate 71 /min MD Christian Steiner Work Phone: [facility] 01-21-2023 09:58-0400 Respiratory rate 16 /min MD Christian Steiner Work Phone: [facility] 01-21-2023 09:58-0400 SaO2% (BldA) [Mass fraction] 98 % MD Christian Steiner Work Phone: [facility] 01-21-2023 09:58-0400 Systolic blood pressure 141 mm[Hg] MD Christian Steiner Work Phone: [facility] 01-21-2022 10:03-0400 Body height 167.64 cm MD Christian Steiner [facility] 01-21-2022 10:03-0400 Body weight 82.64 kg MD Christian Steiner [facility] 01-21-2022 10:03-0400 Diastolic blood pressure 78 mm[Hg] MD Christian Steiner [facility] 01-21-2022 10:03-0400 Heart rate 98 /min MD Christian Steiner [facility] 01-21-2022 10:03-0400 Respiratory rate 18 /min MD Christian Steiner [facility] 01-21-2022 10:03-0400 SaO2% (BldA) [Mass fraction] 98 % MD Christian Steiner [facility] 01-21-2022 10:03-0400 Systolic blood pressure 122 mm[Hg] MD Christian Steiner [facility] 01-21-2021 10:29-0400 Body temperature 98 [degF] MD Christian Steiner [facility] Encounters Encounter Date Encounter Type Care Provider Facility Start: 07-25-2024 End: 07-25-2024 Telephone encounter Jr. Leonardo Boudreaux DO Work Phone: [facility] Comment on above: dentist Start: 07-24-2024 End: 07-24-2024 Bamboo flowsheet Sarahi Pierson MD Work Phone: [facility] Start: 07-24-2024 End: 07-24-2024 Bamboo flowsheet Sarahi Pierson MD Work Phone: [facility] Start: 07-24-2024 End: 07-24-2024 Office outpatient visit 25 minutes Sarahi Pierson MD Work Phone: [facility] Comment on above: Nasal polyp (Primary Dx); Vasomotor rhinitis Start: 07-24-2024 End: 07-24-2024 ambulatory SARAHI PIERSON Not Available Start: 07-23-2024 End: 07-23-2024 ambulatory Lizzie Torre MD Facility: [facility] Start: 07-12-2024 End: 07-12-2024 Office outpatient visit 15 minutes Lynsey Saldana MD Work Phone: [facility] Comment on above: Lymphedema (Primary Dx) Start: 07-12-2024 End: 07-12-2024 [facility] Start: 07-02-2024 End: 07-02-2024 ambulatory Lizzie Willsonitis Facility:[facility] Start: 06-11-2024 End: 06-11-2024 ambulatory Lizzie Torre MD Facility:[facility] Start: 05-14-2024 End: 05-14-2024 ambulatory Lizzie Torre MD Facility:[facility] Start: 04-18-2024 End: 04-18-2024 ambulatory CK GONZALEZ Facility:[facility] Start: 04-18-2024 End: 04-18-2024 Patient encounter [...] MD Tigre Steiner [facility] Work Phone: Start: 01-30-2024 End: 01-30-2024 ambulatory MD Christian Steiner Work Phone: [place] Work Phone: Start: 01-30-2024 End: 01-30-2024 Patient encounter procedure MD Christian Steiner Work Phone[facility] Work Phone: Start: 12-19-2023 End: 12-19-2023 [...] buttock Start: 12-19-2023 End: 12-19-2023 ambulatory DINO Do GEORGE Not Available Start: 10-17-2023 End: 10-17-2023 ambulatory ALESHA VIDALES Facility:[facility] Start: 10-17-2023 End: 10-17-2023 Patient encounter procedure Alesha Vidales MD Work Phone: Ophthalmology Comment on above: Primary open-angle g laucoma, bilateral, mild stage (Primary Dx) Start: 09-05-2023 End: 09-05-2023 ambulatory ALESHA VIDALES Facility:[facility] Start: 09-05-2023 End: 09-05-2023 Patient encounter procedure Alesha Vidales MD Work Phone: Ophthalmology Comment on above: Primary open-angle g laucoma, bilateral, mild stage (Primary Dx) Start: 08-24-2023 End: 08-24-2023 ambulatory SARAHI H KENNA Not Available Start: 07-27-2023 End: 07-27-2023 ambulatory ALESHA VIDALES Facility:[facility] Start: 07-27-2023 End: 07-27-2023 Patient encounter procedure Alesha Vidales MD Work Phone: Ophthalmology Comment on above: Primary open-angle g laucoma, bilateral, mild stage (Primary Dx) Start: 07-14-2023 End: 07-14-2023 Office outpatient visit 15 minutes [facility]ana [facility] Comment on above: Lymphedema (Primary Dx) Start: 05-18-2023 Chart abstracting Jr. Leonardo Boudreaux DO Work Phone: [facility] Start: 01-21-2023 End: 01-21-2023 ambulatory MD Christian Steiner Work Phone: [facility] Work Phone: Start: 01-21-2023 End: 01-21-2023 Registered Recurring MD Christian Steiner Work Phone: [facility] Work Phone: Start: 01-17-2023 End: 01-17-2023 Patient encounter procedure Alesha Vidales MD Work Phone: Ophthalmology Comment on above: Primary open-angle g laucoma, bilateral, mild stage (Primary Dx) Start: 08-02-2022 End: 09-01-2022 ambulatory COVARRUBIAS H FAWWAD Facility:[facility] Start: 07-05-2022 End: 07-05-2022 Patient encounter procedure Alesha Vidales MD Work Phone: Ophthalmology Comment on above: Primary open-angle g laucoma, bilateral, mild stage (Primary Dx) Start: 07-05-2022 End: 07-30-2022 ambulatory COVARRUBIAS H FAWWAD Facility:[facility] Start: 06-18-2022 End: 06-19-2022 ambulatory MR DINO GEORGE . Facility:[facility] Start: 06-02-2022 End: 07-02-2022 ambulatory COVARRUBIAS H FAWWAD Facility:[facility] Start: 05-05-2022 End: 06-02-2022 ambulatory COVARRUBIAS H FAWWAD Facility:[facility] Start: 04-28-2022 End: 04-29-[address] KENYETTA SANCHEZ . Facility:[facility] Start: 04-05-2022 End: 05-05-2022 ambulatory COVARRUBIAS H FAWWAD Facility:[facility] Start: 03-19-2022 End: 03-19-2022 ambulatory MARGA MARTINEZ . Facility:[facility] Start: 03-09-2022 Telephone encounter Alesha Vidales MD Work Phone: Ophthalmology Comment on above: Appointment Start: 03-04-2022 End: 04-04-2022 ambulatory COVARRUBIAS H FAWWAD Facility:[facility] Start: 02-02-2022 End: 03-03-2022 ambulatory COVARRUBIAS H FAWWAD Facility:[facility] Start: 01-21-2022 End: 01-21-2022 ambulatory MD Christian Steiner [facility] Work Phone: Start: 01-21-2022 End: 01-21-2022 Registered Recurring MD [facility] Start: 01-03-2022 End: 02-01-2022 ambulatory SHAIKH Gallito FAAmyWAD Facility:[facility] Start: 12-03-2021 End: 01-02-2022 ambulatory COVARRUBIAS H FAAmyWAD Facility:[facility] Start: 11-02-2021 End: 12-02-2021 ambulatory COVARRUBIAS H FAAmyWAD Facility:[facility] Start: 10-02-2021 End: 10-30-2021 ambulatory COVARRUBIAS H FAAmyWAD Facility: Start: 07-19-2018 Patient encounter procedure Kacie Naty Jarrod Facility:[id number] Start: 01-17-2018 Patient encounter procedure Kacie Naty Jarrod Facility:[id number] Start: 09-28-2017 End: 09-29-2017 Patient encounter EMELY DOMENICO Facility:[facility] Start: 08-18-2017 Patient encounter procedure Christian Steiner Facility:[id number] Start: 03-31-2017 End: 04-01-2017 Patient encounter EMELY DOMENICO Facility:[facility] Start: 02-10-2017 End: 02-11-2017 Patient encounter EMELY DOMENICO Facility:[facility] Start: 01-28-2017 Ambulatory Pal Deshawn Facility:[facility] Procedures Date Procedure Procedure Detail Performing Clinician Start: 07-24-2024 Laboratory test result abnormal Abnormal laboratory test result Sarahi Pierson MD Work Phone: Start: 01-23-2024 Screening mammography of left breast MD Christian Steiner Work Phone: Start: 12-19-2023 Arthrocentesis aspir&/inj major jt/bursa w/o us Dino PÉREZ Work Phone: Start: 09-05-2023 Trabeculoplasty by laser surgery Alesha Vidales MD Work Phone: Start: 07-27-2023 End: 07-27-2023 Visual field xm uni/bi w/interp extended exam Alesha Vidales MD Work Phone: Start: 01-20-2023 Screening mammography of left breast MD Christian Steiner Work Phone: Start: 07-05-2022 End: 07-05-2022 Visual field xm uni/bi w/interp extended exam Alesha Vidales MD Work Phone: Start: 01-18-2022 Screening mammography of left breast MD Christian Steiner Start: 01-15-2021 Screening mammography of left breast MD Christian Steiner Start: 07-18-2020 Dual energy X-ray absorptiometry MD Christian Steiner Start: 01-15-2020 Screening mammography MD Christian Steiner Start: 01-12-2019 Screening mammography MD Christian Steiner Start: 07-14-2018 Dual energy X-ray [...] Start: 01-03-2017 CT chest w con MD Christian Steiner Plan of Treatment Date Care Activity Detail Author Start: 05-22-2025 End: 05-22-2025 Patient encounter procedure 05/22/2025 10:00 AM EST Office Visit [facility] [address] [place] [address] Jr. Leonardo Boudreaux, DO [address] [facility] [address] [place] [address] [facility] Start: 01-22-2025 Screening for malign ant neoplasm of breast Mammogram Screening [facility] Start: 12-03-2024 Influenza vaccination Influenza Vacc ine [facility] Start: 10-22-2024 End: 10-22-2024 Patient encounter procedure 10/22/2024 10:45 AM EDT Office Visit [facility] [address] [place], [place] [id number] Alesha Vidales MD [address] [address] RTC: 6 Months Full OCT ON/GCA + HVF 24-2 [facility] Comment on above: RTC: [address] ON/GCA + HVF 24-2 Flash Start: 07-24-2024 End: 07-24-2024 Patient encounter procedure 07/24/2024 11:20 AM EDT Office Visit [facility] [address] [place] [address] Sarahi Pierson MD [address] [place] [address] Arrived [facility] Comment on above: Arrived Start: 07-13-2024 Adult BMI Screening Adult BMI Screen ing [facility] Start: 07-13-2024 Tobacco Screening Tobacco Screening [facility] Start: 07-12-2024 End: 07-12-2024 Patient encounter procedure 07/12/2024 8:30 AM EDT Office Visit [facility] [address] [place] [address] Lynsey Saldana MD [address], [address] [address] [facility] Start: 04-18-2024 End: 04-18-2024 Patient encounter procedure 04/18/2024 10:30 AM EST Office Visit [facility] [address] [place] [address] Ck Gonzalez, OD [address] [place] [address] Return in about 6 months (around 04/18/2024) for VATA with TH. Ophthalmology Comment on above: Return in about 6 mo nths (around 04/18/2024) for VATA with TH. Start: 04-09-2024 End: 04-09-2024 Patient encounter procedure 04/09/2024 2:30 PM EST Office Visit [facility] [address] [place] [address] Dino George, PA [address] [facility] [address] [place] [address] Acute pain of right shoulder (Primary Dx) [facility] Comment on above: Acute pain of right shoulder (Primary Dx) Start: 04-04-2024 Advance Directive Discussion Advance Directive Discussion [facility] Start: 01-21-2024 Screening for malign ant neoplasm of breast Mammogram Screening [facility] Start: 01-16-2024 End: 01-16-2024 Patient encounter procedure 01/16/2024 10:15 AM EDT Office Visit [facility] [address] [facility] [address] [place] [address] Dino George PA [address] [facility] [address] [place] [address] [facility] Start: 12-19-2023 End: 12-19-2023 Patient encounter procedure 12/19/2023 10:15 AM EDT Office Visit [facility] [address] [facility] [place] [address] Dino George, PA [address] [facility] [address] [place] [address] Acute pain of right knee (Primary Dx); History of total knee replacement, right [facility] Comment on above: Acute pain of right knee (Primary Dx); History of total knee replacement, right Start: 12-04-2023 Covid-19 Vaccine ( season) Covid-19 Vaccine ( season) [facility] Start: 12-04-2023 Influenza vaccination [facility] Start: 10-17-2023 End: 10-17-2023 Patient encounter procedure 10/17/2023 1:15 PM EDT Office Visit [facility] [address] [place] [address] Alesha Vidales MD [address] [address] Return for VATA. Ophthalmology Comment on above: Return for VATA. Start: 09-05-2023 End: 09-05-2023 Patient encounter procedure 09/05/2023 9:45 AM EDT Office Visit [facility] [address] [place] [address] Alesha Vidales MD [address] [address] Return for slt od on a amonday next available Ophthalmology Comment on above: Return for slt od on a amonday next available Start: 05-18-2023 End: 05-18-2023 Patient encounter procedure 05/18/2023 10:15 AM EST Office Visit [facility] [address] [place] [id number] Jr. Leonardo Boudreaux C, DO [address] [address] [facility] Start: 04-04-2023 Advance Directive Discussion Advance Directive Discussion [facility] Start: 04-04-2023 Behavioral Health Screening Behavioral Health Screening [facility] Start: 02-12-2023 Diabetes Screening Diabetes Screenin g [facility] Start: 12-03-2022 Covid-19 Vaccine ( season) Covid-19 Vaccine () [facility] Start: 12-03-2022 Influenza vaccination C [facility] Start: 04-04-2022 ADVANCE DIRECTIVE DISCUSSION ADVANCE DIRECTIVE DISCUSSION [facility] Start: 04-04-2022 DEPRESSION ASSESSMENT DEPRESSION ASS ESSMENT [facility] Start: 12-03-2021 Influenza vaccination INFLUENZA (#1) [facility] Start: 04-04-2021 ADVANCE DIRECTIVE DISCUSSION ADVANCE DIRECTIVE DISCUSSION [facility] Start: 04-04-2021 DEPRESSION ASSESSMENT DEPRESSION ASS ESSMENT [facility] Start: 2017 BONE DENSITY BONE DENSITY [facility] Start: 2017 Bone Density Screening Bone Density Screening [facility] Start: 2017 Fall Risk Screening Fall Risk Screen [facility] Start: 2017 PNEUMOCOCCAL: 65+ (1 - PCV) PNEUMOCOCCAL: 65+ (1 - PCV) [facility] Start: 2017 Screening for osteoporosis Bone Density Screening [facility] Start: 11-13-2014 Administration of varicella zoster vaccine Zoster (Shingles) Vaccine (2 of 3) [facility] Start: 11-13-2014 SHINGRIX VACCINE (2 of 3) SHINGRIX VACCINE (2 of 3) [facility] Start: 2012 RSV Vaccine (1 - 1-d ose 60+ series) RSV Vaccine (1 - 1-dose 60+ series) [facility] Start: 2012 RSV Vaccine (1 - Ris k 60-74 years 1-dose series) RSV Vaccine (1 - Risk 60-74 years 1-dose series) [facility] Start: 2002 SHINGRIX VACCINE (1 of 2) SHINGRIX VACCINE (1 of 2) [facility] Start: 1997 COLOGUARD (FIT-DNA) COLOGUARD (FIT-D NA) [facility] Start: 1997 Colonoscopy COLONOSCOPY [facility] Start: 1997 COLORECTAL CANCER SCREENING COLORECTAL CANCER SCREENING [facility] Start: [address] COLONOGRAPHY [facility] Start: 1997 DIABETES SCREEN DIABETES SCREEN [facility] Start: 1997 Diabetes Screening Diabetes Screenin g [facility] Start: 1997 FECAL OCCULT BLOOD FECAL OCCULT BLOO D [facility] Start: 1997 Lipid 1996 panel - S amalia or Plasma Lipid Screening [facility] Start: 1997 Lipid panel Lipid Screening [facility] Start: 1997 LIPID SCREEN LIPID SCREEN [facility] Start: 1997 Screening for malign ant neoplasm of colon [facility] Start: 1997 SIGMOIDOSCOPY SIGMOIDOSCOPY [facility] Start: 1992 Mammography [facility] Start: 1982 Zoledronic acid therapy ALPHA- 1 ANTITRYPSIN DEFICIENCY SCREENING [facility] Start: 1971 DTaP,Tdap and Td Vaccines (1 - Tdap) DTaP,Tdap and Td Vaccines (1 - Tdap) [facility] Start: 1971 Urine microalbumin profile [facility] Start: 1970 Adult BMI Follow Up Plan Adult BMI Follow Up Plan [facility] Start: 1970 ANNUAL PCP TEAM STOCK CLERK LYLE DISEASE VISIT ANNUAL PCP TEAM CHRONIC DISEASE VISIT [facility] Start: 1970 Anxiety Screening Anxiety Screening [facility] Start: 1970 Depression Screening Depression Scre ening [facility] Start: 1970 HEPATITIS C [facility] Start: 1970 Hepatitis C screening Hepatitis C Sc [facility] Start: 1970 SPIROMETRY SPIROMETRY [facility] Start: 1964 Depression Screening Depression Scre ening [facility] Start: 1952 COVID-19 VACCINE (#1) COVID-19 VACCI NE (#1) [facility] Start: 1952 Medicare Annual Well ness Visit Medicare Annual Wellness Visit [facility] MG Breast - left Screening [facility] MG Breast - left Screening [facility] MG Breast - left Screening [facility] XR Hip - right 3 Views XR hip ri ght 2 or 3 views Imaging Routine Acute right hip pain 12/19/2023 10:12 AM EDT [facility] Work Phone: [facility] Immunizations Immunization Date Immunization Notes Care Provider Fa [facility] 01-05-2020 influenza (HD-IIV4) vaccine, age 65+ yr, high dose, quadrivalent, PF (FLUZONE HIGH-DOSE) Alesha Vidales MD Work Phone: [facility] 01-05-2020 influenza virus vacc ine, unspecified formulation Alesha Vidales MD Work Phone: [facility] 01-25-2018 pneumococcal polysaccharide vaccine, 23 valent Alesha Vidales MD Work Phone: [facility] 10-20-2017 pneumococcal conjuga te vaccine, 13 valent Alesha Vidales MD Work Phone: [facility] 09-17-2015 pneumococcal polysaccharide vaccine, 23 valent Alesha Vidales MD Work Phone: [facility] 06-09-2015 influenza, injectabl e, quadrivalent, preservative free Alesha Vidales MD Work Phone: [facility] 09-18-2014 zoster vaccine, live Raji Vidales MD Work Phone: [facility] 09-18-2014 zoster vaccine, unspecified formulation Lynsey Saldana MD Work Phone: [facility] 01-30-2009 novel influenza-H1N1 -09, preservative-free, injectable Alesha Vidales MD Work Phone: [facility] Payers Date Payer Category Payer Commercial Indemnity [facility]A [id number] 2018 Private [facility] Insurance [employer] [id number] 2018 Unknown [id number] [id number]. [id number] 2017 Medicare [id number]. [id number] 2016 Self-pay [id number] 1959 Medicare [id number] 1959 Unknown [id number] 1952 Unknown [id number] 2.16.840.1.770942.3.579.2. 356 1952 Unknown [id number] 2.16.840.1.082621.3.579.2. 356 1952 Unknown [id number] 2.16.840.1.372544.3.579.2. 356 1952 Unknown [id number] 2.16.840.1.214443.3.579.2. 593 1952 Unknown [id number] 2.16.840.1.847911.3.579.2. 593 1952 Unknown [id number] 2.16.840.1.086246.3.579.2. 593 1952 Unknown [id number] 2.16.840.1.243831.3.579.2. 593 1952 Unknown [id number] 2.16.840.1.083629.3.579.2. 593 1952 Unknown [id number] 2.16.840.1.266455.3.579.2. 593 1952 Unknown [id number] 2.16.840.1.521774.3.579.2. 593 1952 Unknown [id number] 2.16.840.1.902737.3.579.2. 593 1952 Unknown [id number] 2.16.840.1.917551.3.579.2. 593 1952 Unknown [id number] 2.16.840.1.017172.3.579.2. 593 1952 Unknown [id number] 2.16.840.1.111518.3.579.2. 593 1952 Unknown [id number] 2.16.840.1.793262.3.579.2. 593 1952 Unknown [id number] 2.16.840.1.673174.3.579.2. 593 1952 Unknown [id number] 2.16.840.1.941959.3.579.2. 593 1952 Unknown [id number] 2.16.840.1.226096.3.579.2. 1286 1952 Unknown [id number] 2.16.840.1.147287.3.579.2. 1259 1952 Unknown [id number] 2.16.840.1.693623.3.579.2. 1259 1952 Unknown [id number] 2.16.840.1.757449.3.579.2. 1259 1952 Unknown [id number] 2.16.840.1.795820.3.579.2. 1259 1952 Unknown [id number] 2.16.840.1.910062.3.579.2. 1259 1952 Unknown [id number] 2.16.840.1.623747.3.579.2. 196 1952 Unknown [id number] 2.16.840.1.096776.3.579.2. 196 1952 Unknown [id number] 2.16.840.1.813473.3.579.2. 196 1952 Unknown [id number] 2.16.840.1.507475.3.579.2. 196 Unknown [id number] Unknown [id number] 2.16.840.1.687351.3.579.2. 531 Social History Date Type Detail Facility Start: 01-21-2021 End: 09-14-2022 Tobacco smoking status NHIS Never smoked tobacco (finding) [facility] Start: 1950 Sex Assigned At Female [facility] Start: 02-27-2019 End: 09-14-2022 Tobacco use and exposure Smokeless tobacco non-user [facility] Start: 09-18-2019 End: 04-18-2024 Alcohol intake Current drinker of alcohol (finding) [facility] Start: 09-18-2019 History SDOH Alcohol Frequency 2 [facility] Start: 09-18-2019 History SDOH Alcohol Std Drinks 1 [facility] Start: 02-27-2019 Alcohol Comment a glass of wine once every 2-3 months [facility] Start: 1950 Sex Assigned At Not on file [facility] Start: 02-27-2019 End: 07-24-2024 History of Social function [facility] Start: 02-27-2019 End: 07-24-2024 Alcohol Use Disorder Identification Test - Consumption [AUDIT-C] [facility] Frequency of Alcohol Consumption Monthly or less [facility] Start: 09-25-2022 End: 07-24-2024 Alcohol intake Lifetime non-drinker (finding) [facility] Start: 09-25-2022 Alcohol Comment caffeine intake: 2-3 cups per day [facility] Start: 09-14-2022 Gender identity Identifies as female gender (finding) [facility] Start: 09-14-2022 Sexual orientation Heterosexual (finding) [facility] Start: 07-14-2023 Alcoholic beverage intake Ex-drinker (finding) [facility] Start: 01-17-2020 Alcohol Comment very rare [facility] Start: 11-03-2015 Sex Female (finding) [facility] Medical Equipment Procedure Code Equipment Code Equipment Origin al Text Equipment Identifier Dates Lens Acrysof Iq Toric 6mm +24.5 Diopter +6 Cylinder 0 D Biconvex Acrylic 13 - [id number] Start: 03-14-2019 Comment on above: Description: -0.57 Lens Acrysof Iq Toric Stableforce 6mm 0 D +22.5 Diopter +2.25 Cylinder - [id number] Start: 03-21-2019 Comment on above: Description: -0.80 Istent Inject - [id number] Start: 03-14-2019 Istent Inject - [id number] Start: 03-21-2019 Cmnt Bn Bio 40gm Rpl [id number] - Sna - [id number] Start: 02-12-2020 Ins Artc 3-5 E-F 11mm Kn Rt Ps - Sna - [id number]/ [id number]/ SNA, [id number] FDA Start: 02-12-2020 Cmpt Fem 5 Kn Rt Persona Strl - Sna - [id number] Start: 02-12-2020 Cmpt Ptlr 32mm Persona Alply - Sna - [id number] Start: 02-12-2020 Bsplt Tib 5d E K n Rt Stm - Sna - [id number] Start: 02-12-2020 Clinical Notes 01-04-2017 to 07-25-2024 Telephone Encounter - Jose Alberto Powers NP - 07/25/2024 3:52 PM EDTTelephone Encounter - Jose Alberto Powers NP - 07/25/2024 3:52 PM EDTTelephone Encounter - Columba Castaneda - 07/25/2024 2:28 PM EDT Note Date & Type Note Facility 07-25-2024 Telephone encounter Note Allergies reviewed. Rx sent [facility] 07-25-2024 Miscellaneous Notes Allergies reviewed. Rx sent Pt called and stated she had LT TKA sx on 02/12/2020 and will be having a tooth capped on 08/20/24 and would need an antibiotic called into [facility]. [place]: Sulfa Her call back [phone] documented in this encounter [facility] 07-25-2024 Telephone encounter Note Pt called and stated she had LT TKA sx on 02/12/2020 and will be having a tooth capped on 08/20/24 and would need an antibiotic called into [facility]. Allegiisabella: Roryelizabeth Her call back [phone] [facility] 07-24-2024 History of Present illness Narrative Subjective Patient ID: Myla Pollack is a 74 y.o. female who presents for Nasal Polyps (1 year check ) 3-4 mo h/o rhinorrhea when eating Family History Problem Relation Name Age of Onset Pancreatic cancer Mother Kamille Diabetes Mother Kamille Hypertension Mother Kamille Heart disease Mother Kamille Cancer Mother Kamille Active Ambulatory Problems Diagnosis Date Noted Nasal polyp 08/10/2018 Bilateral impacted cerumen 09/15/2022 Lymphedema 07/14/2023 Acquired hallux rigidus 08/18/2023 Other deformities of toe(s) (acquired), left foot 08/18/2023 Other osteonecrosis, left foot (CMS/HCC) 08/18/2023 Personal history of pulmonary embolism 08/18/2023 Presence of functional implant, unspecified 08/18/2023 Venous insufficiency (chronic) (peripheral) 08/18/2023 Hx of breast cancer 08/18/2023 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 Abnormal laboratory test result 07/24/2024 Acquired hammer toe of right foot 07/24/2024 Hallux rigidus, left foot 07/24/2024 Hallux valgus of right foot 07/24/2024 Shoulder joint pain 07/24/2024 Resolved Ambulatory Problems Diagnosis Date Noted 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 Acquired absence of right breast and nipple 01/03/2019 Acquired hammer toe of left foot 12/05/2018 Acute cystitis without hematuria 10/19/2019 Acute embolism and thrombosis of unspecified deep veins of unspecified lower extremity (CMS/HCC) 02/02/2019 Anemia, unspecified 04/29/2022 Anticoagulant long-term use 02/02/2019 Other watermaster (current) drug therapy 03/22/2022 Arthritis of right knee 02/12/2020 Artificial knee joint present 02/14/2020 Breast cancer ([facility]) 09/14/2022 Breast cancer screening 07/05/2022 Unspecified sprain of right wrist, initial encounter 03/22/2022 COPD (chronic obstructive pulmonary disease) ([facility]) 09/14/2022 Difficulty walking 02/14/2020 Drug side effects 12/05/2018 Elevated blood pressure reading without diagnosis of hypertension 04/29/2022 Fall on same level from slipping, tripping and stumbling without subsequent striking against object, initial encounter 03/22/2022 Hyperopia with presbyopia of both eyes 02/22/2019 Impingement of right ankle joint 01/03/2019 Iron deficiency anemia, unspecified 01/21/2022 Localized edema 09/03/2021 Mixed hyperlipidemia ([facility]) 04/28/2022 Osteoarthritis of knee 09/06/2016 Unilateral primary osteoarthritis, left knee 09/14/2022 Other abnormal glucose 04/29/2022 Other chronic pain 10/18/2016 Pain in right knee 01/08/2018 Palpitations 04/29/2022 PCO (posterior capsular opacification), bilateral 09/18/2019 Peripheral vascular disease, unspecified ([facility]) 11/10/2018 Personal history of other endocrine, nutritional and metabolic disease 07/05/2022 Primary open-angle glaucoma, bilateral, mild stage 02/22/2019 Pseudophakia of both eyes 09/18/2019 Pulmonary embolism 09/14/2022 Thrush 08/10/2018 Vasculitis ([facility]) 02/10/2017 Venous insufficiency (chronic) (peripheral) 08/27/2021 Other specified disorders of bone, ankle and foot 08/18/2023 Past Medical History: Diagnosis Date Asthma All my life Bunion COVID-19 04/2021 CTS (carpal tunnel syndrome) Fracture of wrist 2021 Hammer toe Migraine 50 years ago Past Surgical History: Procedure Laterality Date BUNIONECTOMY Left 09/2007 x2 CARPAL TUNNEL RELEASE Right FOOT SURGERY Right 09/2022 SPUR REMOVED- DR CHERY FOOT SURGERY Left 01/2023 GREAT TOE REPLACED/HAMMER TOE/SHORTENED - DR CHERY MASTECTOMY Right 02/19/2015 OTHER SURGICAL HISTORY Right 10/2003 RT knee arthroscopy AL KNEE SCOPE,DIAGNOSTIC Right 10/[address] TIAN TOE SURGERY Right 2019 Plate and screw placement in right big toe - Dr. Chery TOTAL KNEE ARTHROPLASTY Right 02/12/[address] BOUDREAUX Allergies Allergen Reactions Sulfa Antibiotics Other Reaction(s): Unknown, unknown (child) Unknown reaction. Patient told since childhood she was allergic. Sulfamethoxazole-Trimethoprim Unknown Current Outpatient Medications on File Prior to Visit Medication Sig Dispense Refill albuterol HFA (ProAir HFA) 90 mcg/act inhaler Inhale 1 puff every 4 (four) hours if needed ascorbic acid (Vitamin C) 1000 MG tablet Take 1,000 mg by mouth in the morning. atorvastatin (Lipitor) 20 MG tablet Take 20 mg by mouth 1 (one) time each day at the same time B Complex Vitamins (B COMPLEX 1 PO) Take 1 tablet by mouth Daily biotin 1 MG capsule Take 1 capsule by mouth Daily Breo Ellipta 100-25 MCG/ACT aerosol powder Inhale 1 puff Daily cholecalciferol (D3-5) 5,000 Units tablet Take 5,000 Units by mouth in the morning. Cyanocobalamin (Vitamin B12) 1000 MCG tablet controlled-release Take 1 tablet by mouth 1 (one) time each day at the same time cycloSPORINE (Restasis) 0.05 % ophthalmic emulsion Administer 1 drop into both eyes every 12 (twelve) hours ergotamine-caffeine (Cafergot) 1-100 MG tablet Take 1 tablet by mouth 1 (one) time if needed fluticasone (Flonase) 50 MCG/ACT nasal spray Administer 2 sprays into each nostril Daily Shake gently. Before first use, prime pump. After use, clean tip and replace cap. 48 g 3 Glucosamine 500 MG capsule Take 2 tablets by mouth 1 (one) time each day at the same time Imitrex 100 MG tablet 100 mg every 12 (twelve) hours magnesium 250 MG tablet Take 1 tablet by mouth 1 (one) time each day at the same time montelukast (Singulair) 10 MG tablet Take 1 tablet (10 mg) by mouth at bedtime 90 tablet 3 Multiple Vitamin (Multi-Vitamin) tablet Take 1 tablet by mouth Daily pregabalin (Lyrica) 75 MG capsule Take 75 mg by mouth Daily Pyridoxine HCl (Vitamin B6) 100 MG tablet Take 1 tablet by mouth 1 (one) time each day at the same time warfarin (Coumadin) 5 MG tablet Take 5 mg by mouth Zinc 10 MG lozenge No current facility-administered medications on file prior to visit. Objective Last Recorded Vitals Vitals: 07/24/24 1113 BP: 123/72 Pulse: 91 ENT Physical Exam Nose External Nose: nares patent bilaterally; external nose normal; Internal Nose: nasal mucosa normal; septum normal; bilateral inferior turbinates normal; Assessment/Plan Diagnoses and all orders for this visit: Nasal polyp - fluticasone (Flonase) 50 MCG/ACT nasal spray; Administer 2 sprays into each nostril Daily Shake gently. Before first use, prime pump. After use, clean tip and replace cap. - montelukast (Singulair) 10 MG tablet; Take 1 tablet (10 mg) by mouth at bedtime Vasomotor rhinitis - ipratropium (Atrovent) 0.06 % nasal spray; Administer 2 sprays into each nostril in the morning and 2 sprays in the evening and 2 sprays before bedtime. No polyposis. Meds refilled. Atrovent for vasomotor rhinitis documented in this encounter [facility] 07-12-2024 Evaluation + Plan note Associated Problem(s): Lymphedema Lymphedema education provided. Referred to the lymphedema clinic. Complex decongestive therapy and maintenance. [facility] 07-12-2024 Miscellaneous Notes Associated Problem(s): Lymphedema Lymphedema education provided. Referred to the lymphedema clinic. Complex decongestive therapy and maintenance. documented in this encounter [facility] 07-12-2024 History of Present illness Narrative Images from the original note were not included. To: KENYETTA SANCHEZ MD HPI: Myla Pollack is a 74 y.o. female with Lower extremity lymphedema. She has some mild varicose veins for which she is using compression stockings. She had multiple surgeries are in her ankle. She does not follow-up with the lymphedema clinic. She does not have wounds or ulcers. I discussed with her Lymphedema education provided. Referred to the lymphedema clinic. Complex decongestive therapy and maintenance.. Review of Systems: Review of Systems Constitutional: [...] 1 tablet by mouth in the morning. cholecalciferol, vitamin D3, 5,000 units tablet Take 1 tablet (5,000 Units total) by mouth in the morning. CHONDROITIN SULFATE A ORAL daily. cycloSPORINE (RESTASIS) 0.05 % ophthalmic emulsion Administer 1 drop to both eyes every 12 (twelve) hours. fluticasone propionate (FLONASE) 50 mcg/actuation nasal spray Administer into each nostril daily. magnesium 250 mg tablet 1 mg daily. montelukast (SINGULAIR) 10 mg tablet Take 1 tablet (10 mg total) by mouth nightly. multivit-min/ferrous fumarate (MULTI VITAMIN ORAL) daily. POLY-IRON 150 FORTE 150-25-1 mg-mcg-mg capsule Take 1 capsule by mouth in the morning. pregabalin (LYRICA) 75 mg capsule Take 1 [...] IF NEEDED; MAX 2 TABS PER DAY. anastrozole (ARIMIDEX) 1 mg chemo tablet Take 1 mg by mouth daily (Patient not taking: Reported on 09/25/2021) clwdzsbikr-hcfsfuuaqcrbh-uttd (FIORICET, ESGIC) 50-325-40 mg per tablet Take 1 tablet by mouth every 4 (four) hours as needed. furosemide (LASIX) 40 mg tablet Take 1 tablet (40 mg total) by mouth daily. potassium chloride (KLOR-CON SPRINKLE) 10 MEQ CR capsule spironolactone (ALDACTONE) 25 mg tablet Take 1 tablet (25 mg total) by mouth in the morning. (Patient not taking: Reported on 07/14/2023) SYMBICORT 80-4.5 mcg/actuation inhaler Inhale 1 puff in the morning and 1 puff before bedtime. tiotropium bromide 2.5 mcg/actuation mist Inhale 2 (two) times a day. warfarin (COUMADIN) 5 mg tablet Take 1 tablet (5 mg total) by mouth in the evening. 5 mg -W-, 7.5 mg Weq-Jykw-Behjl-Sat . (Patient not taking: Reported on 07/12/2024) No current facility-administered medications on file prior to visit. Past Medical History: Past Medical History: Diagnosis Date Acute cystitis without hematuria Asthma COPD (chronic obstructive pulmonary disease) ([facility]) Headache Hyperlipidemia Osteoarthritis right knee Pulmonary embolism ([facility]) Thrush top partial Vasculitis ([facility]) Visual impairment readers Past Surgical History: [...] TOTAL JOINT KNEE Right 02/12/2020 Performed by Leonardo Boudreaux Jr., DO at [facility] [...] Social History Narrative Not on file Social Drivers of Health Financial Resource Strain: Not on file Food Insecurity: No Food Insecurity (07/12/2024) Hunger Screening Food Insecurity - Worry: Never [...] the assessment and plan below. Vitals: BP 136/78 (BP Site: Left Arm, BP Postition: Sitting, BP CUFF SIZE: M (9-13 inches)) Pulse 78 Temp 36.4 C (97.6 F) (Temporal) Ht 160 cm (5' 3 ) Wt 73.5 kg (162 lb) SpO2 97% BMI 28.70 kg/m Body mass index is 28.7 kg/m . Physical Exam: Physical Exam Constitutional: [...] normal. Palpations: Abdomen is soft. Musculoskeletal: General: Normal range of motion. Cervical back: Normal range of motion. Comments: Feet lymphedema lower leg swelling Skin: General: Skin is warm and dry. Neurological: General: No focal deficit present. Mental Status: She is alert and oriented to person, place, and time. Mental status is at baseline. Psychiatric: Mood and Affect: Mood normal. Behavior: Behavior normal. Thought Content: Thought content normal. Judgment: Judgment normal. Recent testing: None Assessment and Plan: Problem List Lymphedema - Primary Current Assessment & Plan Lymphedema education provided. Referred to the lymphedema clinic. Complex decongestive therapy and maintenance. Myla was seen today for 1 year follow up for venous insufficiency. no testing prior. Diagnoses and all orders for this visit: [...] for your understanding. documented in this encounter [facility] 04-18-2024 Note HNO ID: [id number] Author: CK GONZALEZ, MALA Service: ? Author Type: GAUGE OPERATOR Type: Progress Notes Filed: 04/18/2024 11:22 Note [...] Gonzalez, OD April 18, 2024 11:21 AM [facility] 04-18-2024 History of Present illness Narrative Tmax: [...] AM documented in this encounter [facility] 04-09-2024 History of Present illness Narrative Images from the original note were not included. HISTORY OF PRESENT ILLNESS: EST PT Myla Pollack is an 73 y.o. @ female. (EST PT) NEW COMPLAINT, (R) SHOULDER DISCOMFORT. SYMPTOMS FOR ABOUT 2 MONTHS, NO KNOWN INJURY. XRAYS 12/5/24 @ [facility] MRI, (R) SHOULDER & C-SPINE [...] At Risk (02/27/2019) Received from [facility], [facility] AUDIT-C Frequency of Alcohol Consumption: Monthly [...] requiring urgent evaluation. documented in this encounter [facility] 12-19-2023 History of Present illness Narrative Associated [...] At Risk (02/27/2019) Received from [facility], [facility] AUDIT-C Frequency of Alcohol Consumption: Monthly [...] requiring urgent evaluation. documented in this encounter [facility] 10-17-2023 Note HNO ID: [id number] Author: ALESHA VIDALES MD Service: ? Author Type: Physician Type: [...] both eyes - Doing well I, Alesha Vidales MD, have confirmed and edited as necessary [...] with all of its relevant components. Alesha Vidales MD October 17, 2023 [facility] 10-17-2023 History of Present illness Narrative Tmax: [...] both eyes - Doing well I, Alesha Vidales MD, have confirmed and edited as necessary [...] with all of its relevant components. Alesha Vidales MD October 17, 2023 documented in this encounter [facility] 09-05-2023 Note Date of Procedure 09/05/2023 Gay Protocol Safety Checklist Sign In: A moment [...] up management communicated. No specimens. [facility] 09-05-2023 Note HNO ID: [id number] Author: ALESHA VIDALES MD Service: ? Author Type: Physician Type: [...] both eyes - Doing well I, Alesha Vidales MD, have confirmed and edited as necessary [...] with all of its relevant components. Alesha Vidales MD September 05, 2023 [facility] 09-05-2023 History of Present illness Narrative Tmax: [...] both eyes - Doing well I, Alesha Vidales MD, have confirmed and edited as necessary [...] with all of its relevant components. Alesha Vidales MD September 05, 2023 documented in this encounter [facility] 07-27-2023 Note Date of Procedure 07/27/2023. Outside Machinist Supervisor Information Naturopathic Doctor: pd. Reliability Right Eye Good. Left Eye Good. Interpretation Right Eye Normal. Left Eye Normal. [facility] 07-27-2023 Note Date of Procedure 07/27/2023. Outside Machinist Supervisor Information Naturopathic Doctor: JF. Quality Right Eye Good. Left Eye Good. NFL Interpretation Right Eye Superior loss. Left Eye Normal. [facility] 07-27-2023 Note HNO ID: [id number] Author: ALESHA VIDALES MD Service: ? Author Type: Physician Type: [...] next visit IOL both eyes I, Alesha Vidales MD, have confirmed and edited as necessary [...] agree with all of its relevant components. [facility] 07-27-2023 History of Present illness Narrative Tmax: [...] next visit IOL both eyes I, Alesha Vidales MD, have confirmed and edited as necessary [...] components. documented in this encounter [facility] 07-14-2023 Evaluation + Plan note Associated Problem(s): Lymphedema Compression therapy leg elevation and follow up in the clinic in 1 year. [facility] 07-14-2023 Miscellaneous Notes Associated Problem(s): Lymphedema Compression therapy leg elevation and follow up in the clinic in 1 year. documented in this encounter [facility] 07-14-2023 History of Present illness Narrative Images from the original note were not included. To: KENYETTA SANCHEZ MD HPI: Myla Pollack is a 73 [...] 1 tablet by mouth in the morning. komgexbdhz-vkqqyhwibylyq-gebh (FIORICET, ESGIC) 50-325-40 mg per tablet Take [...] the evening. 5 mg M-W-F, 7.5 mg Kfk-Tmwx-Ellvd-Sat . anastrozole (ARIMIDEX) 1 mg chemo tablet [...] hematuria Asthma COPD (chronic obstructive pulmonary disease) ([facility]) Headache Hyperlipidemia Osteoarthritis right knee Pulmonary embolism ([facility]) Thrush top partial Vasculitis ([facility]) Visual impairment readers Past Surgical History: [...] TOTAL JOINT KNEE Right 02/12/2020 Performed by Leonardo Boudreaux Jr., at [facility] Social and [...] Lynsey Saldana MD, TREVIN, RPVI, FSVS, FACS [facility] [facility] This note was created with the assistance of a speech recognition program. While intending to generate a timely document that accurately reflects the content of the visit, no guarantee can be provided that every grammatical or spelling mistake has been or will be identified or corrected. Thank you for your understanding. documented in this encounter [facility] 01-17-2023 History of Present illness Narrative [...] about SLT. IOL both eyes I, Alesha Vidales MD, have confirmed and edited as necessary [...] components. documented in this encounter [facility] 07-05-2022 History of Present illness Narrative Tmax: 25, 26; Pachy: 548, 546 Lasers and Surgeries: OD: IOL, istent OS: IOL, istent Ocular Medication Intol and Non-efficacy: - Referred by Dr Kg HERNÁNDEZ 07/05/22 OD full OS full -OCT 07/05/22 OD ? Sup loss OS normal - Glaucoma suspect right eye>left eye Monitor for now No family history IOL both eyes I, Alesha Vidales MD, have confirmed and edited as necessary [...] components. documented in this encounter [facility] 03-19-2022 Note PROCEDURE: XR WRIST RT MIN 3 V HISTORY: Unspecified fall ; acute right wrist pain after falling COMPARISON: None. FINDINGS: BONES:No fracture, acute abnormality, or significant arthropathy. SOFT TISSUES:No visible soft tissue swelling. EFFUSION:None visible. OTHER: Negative. IMPRESSION: 1. No acute bone abnormality. 2. Multifocal mild degenerative changes. Electronically authenticated by: ADIEL MCCONNELL Date: 2022-03-19 10:26 [facility] 03-11-2022 Miscellaneous Notes *SECOND ATTEMT* Called patient and LVM for her to call back and schedule an appt with for glaucoma suspect. Referral from Dr. Sebastian. Called patient and LVM to schedule an appointment with Dr. Vidales for GLC suspect. documented in this encounter [facility] 01-21-2022 Progress note Note Date/Time January 21, 2022 10:15[facility] [place] [address] Hem/Onc Follow Up Note - OP Signed Patient: Myla Pollack MR#: [id number] : 1950 Acct:[id number] Age/Sex: 71 / F Type: REG RCR Copies to: Keynetta Sanchez MD~ Subjective Date/Time of Service: Date of [...] of anastrozole, we will now follow [facility] to return to [facility]). We will arrange her annual follow-ups after her annual mammograms in January of each year. She also requested refill of breast prosthesis and mastectomy bra. No breast exam due to telephone visit. No skin changes or breast tenderness. No recent f/u by duct layer helper in [place]--was reported to have vasculitis 4 years ago--now resolved but still has some mild erythema and swelling of left greater than right leg without pain. Receives Anastrozole due to weak AL expression--no significant myalgias/arthralgias or hot flashes. No [...] pT1c, N0, M0. Tumor was ER negative, AL weak, and HER-2 nonamplified. She underwent right mastectomy at [facility] in 02/2015. Completed dose dense AC X4 [...] years of adjuvant therapy. 3. Evaluated by duct layer helper in [place] (does not believe she had vasculitis)--no recent [...] inflammatory. She was referred to pulmonary at [facility]. Ground glass opacities resolved on PET/CT 08/2017. [...] of Therapies: 1. Right breast mastectomy at [facility] (Dr. Rodriguez) in 02/2015. 2. Completed [...] nodes positive, pT1c, N0, M0. ER negative, AL weak, and HER-2 nonamplified. (1) Breast cancer, right Qualifiers: Estrogen receptor status: negative Patient sex: female 1. 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 ER negative, AL weak, and HER-2 nonamplified. 2. She underwent mastectomy at [facility] in 02/2015. Completed dose dense AC X4 and Taxol X 12 in August 2015. 3. 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 Anastrozole was resumed in 03/2017 4. Saw duct layer helper in [place] for persistent leg pain and swelling (he [...] inflammatory. She was referred to pulmonary at [facility]. --Followup PET/CT 08/2017 showed resolution of prior [...] for coordination of care (as documented) and tgtf-he-ntax counseling of patient and/or family. Dictated By: Claire Duran APRN DD/ 1014 Signed By: <Electronically signed by CHIDI Duran> 01/21/22 1041 [facility] Work Phone: 1([phone]) 359-952410-20-2021 Progress note Author Kacie Garay [facility] January 21, 2021 8:25pm Note Date/Time January 21, 2021 1 0:34am [facility] at [place] [id number] Hem/Onc Follow Up Note - OP Signed Patient: Myla Pollack MR#: [id number] : 1950 Acct:[id number] Age/Sex: 70 / F Type: REG RCR Copies to: Kenyetta Sanchez MD~ Subjective Date/Time of Service: Date of [...] of anastrozole, we will now follow [facility] patient wishes to return to oncology). We will arrange her annual follow-ups after her annual mammograms in January of each year. She also requested refill of breast prosthesis and mastectomy bra. No breast exam due to telephone visit. No skin changes or breast tenderness. No recent f/u by duct layer helper in [place]--was reported to have vasculitis 4 years ago--now resolved but still has some mild erythema and swelling of left greater than right leg without pain. Receives Anastrozole due to weak AL expression--no significant myalgias/arthralgias or hot flashes. No [...] pT1c, N0, M0. Tumor was ER negative, AL weak, and HER-2 nonamplified. She underwent right mastectomy at [facility] in 02/2015. Completed dose dense AC X4 [...] years of adjuvant therapy. 3. Evaluated by duct layer helper in [place] (does not believe she had vasculitis)--no recent [...] inflammatory. She was referred to pulmonary at [facility]. Ground glass opacities resolved on PET/CT 08/2017. [...] of Therapies: 1. Underwent right mastectomy at [facility] in 02/2015. 2. Completed dose dense AC [...] nodes positive, pT1c, N0, M0. ER negative, AL weak, and HER-2 nonamplified. (1) Breast cancer, right Qualifiers: Estrogen receptor status: negative Patient sex: female 1. 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 ER negative, AL weak, and HER-2 nonamplified. 2. She underwent mastectomy at [facility] in 02/2015. Completed dose dense AC X4 and Taxol X 12 in August 2015. 3. 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 Anastrozole was resumed in 03/2017 4. Saw duct layer helper in [place] for persistent leg pain and swelling (he [...] inflammatory. She was referred to pulmonary at [facility]. --Followup PET/CT 08/2017 showed resolution of prior [...] for coordination of care (as documented) and oajh-qc-mvvs counseling of patient and/or family. Dictated By: Kacie Garay MD DD/ 1034 Signed By: <Electronically signed by MD Kacie Garay> 01/21/212024 [facility] Work Phone: 1(202) 852-677604-19-2021 Progress note Author Kacie Garay [facility] July 21, 2020 11:38am Note Date/Time July 21, 2020 9:3 9am [facility] [place] [address] Hem/Onc Follow Up Note - OP Signed Patient: Myla Pollack MR#: [id number] : 1950 Acct:[id number] Age/Sex: 70 / F Type: REG RCR Copies to: Kenyetta Sanchez MD~ Subjective Date/Time of Service: Date of Service: 07/21/2020 Time of Service: 09:36 Chief Complaint: Patient has consented to doxy visit for 4 month follow up visitfor breast cancer and to review bone densitometry test. HPI: Patient had video visit (doxy.tx) today for 4-month follow-up and review of [...] or breast tenderness. No recent f/u by duct layer helper in [place]--was reported to have vasculitis 4 years ago--now resolved but still has some mild erythema and swelling of left greater than right leg without pain. Receives Anastrozole due to weak AL expression--no significant myalgias/arthralgias or hot flashes. No [...] pT1c, N0, M0. Tumor was ER negative, AL weak, and HER-2 nonamplified. She underwent right mastectomy at [facility] in 02/2015. Completed dose dense AC X4 [...] years of adjuvant therapy. 3. Evaluated by duct layer helper in [place] (does not believe she had vasculitis)--no recent [...] inflammatory. She was referred to pulmonary at [facility]. Ground glass opacities resolved on PET/CT 08/2017. [...] of Therapies: 1. Underwent right mastectomy at [facility] in 02/2015. 2. Completed dose dense AC [...] nodes positive, pT1c, N0, M0. ER negative, AL weak, and HER-2 nonamplified. (1) Breast cancer, right Qualifiers: Estrogen receptor status: negative Patient sex: female 1. 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 ER negative, AL weak, and HER-2 nonamplified. 2. She underwent mastectomy at [facility] in 02/2015. Completed dose dense AC X4 and Taxol X 12 in August 2015. 3. 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 Anastrozole was resumed in 03/2017 4. Saw duct layer helper in [place] for persistent leg pain and swelling (he [...] inflammatory. She was referred to pulmonary at [facility]. --Followup PET/CT 08/2017 showed resolution of prior [...] for coordination of care (as documented) and xjwg-px-oljk counseling of patient and/or family. Dictated By: Kacie Garay MD DD/ 5 Signed By: <Electronically signed by MD Kacie Garay> 07/21/20 1131 [facility] Work Phone: [phone]) [phone] Progress note Author Kacie Garay [facility] March 12, 2020 2:49pm Note Date/Time March 12, 2020 9 :56am [facility] [place] [address] Hem/Onc Follow Up Note - OP Signed Patient: Myla Pollack MR#: [id number] : 1950 Acct:[id number] Age/Sex: 69 / F Type: REG RCR Copies to: Kenyetta Sanchez MD~ Subjective Date/Time of Service: Date of [...] or breast tenderness. No recent f/u by duct layer helper in [place]--was reported to have vasculitis 4 years ago--now resolved but still has some mild erythema and swelling of left greater than right leg without pain. Receives Anastrozole due to weak AL expression--no significant myalgias/arthralgias or hot flashes. No [...] pT1c, N0, M0. Tumor was ER negative, AL weak, and HER-2 nonamplified. She underwent right mastectomy at [facility] in 02/2015. Completed dose dense AC X4 [...] of extended adjuvant therapy. 3. Evaluated by duct layer helper in [place] (does not believe she had vasculitis)--no recent [...] inflammatory. She was referred to pulmonary at [facility]. Ground glass opacities resolved on PET/CT 08/2017. [...] of Therapies: 1. Underwent right mastectomy at [facility] in 02/2015. 2. Completed dose dense AC [...] 03/12/20] flaxseed oil 1,000 mg PO BID 12/22/17 [History Confirmed 03/12/20] esomeprazole magnesium 40 mg [...] lymph nodes positive, pT1c, N0,M0. ER negative, AL weak, and HER-2 nonamplified. 2. She underwent mastectomy at [facility] in 02/2015. Completed dose dense AC X4 and Taxol X 12 in August 2015. 3. 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 Anastrozole was resumed in 03/2017 4. Saw duct layer helper in [place] for persistent leg pain and swelling (he [...] inflammatory. She was referred to pulmonary at [facility]. --Followup PET/CT 08/2017 showed resolution of prior [...] for coordination of care (as documented) and wsni-js-ytmv counseling of patient and/or family. Dictated By: Kacie Garay MD DD/ [id number] Signed By: <Electronically signed by MD Kacie Garay> 03/12/20 1446 [facility] Work Phone: 1([phone]) 302-594306-03-2020 Progress note Author Kacie Garay [facility] September 05, 2019 1:07pm Note Date/Time September 05, 2019 10:57 am [facility] [place] [address] Hem/Onc Follow Up Note - OP Signed Patient: Myla Pollack MR#: [id number] : 1950 Acct:[id number] Age/Sex: 69 / F Type: REG RCR Copies to: Kenyetta Sanchez MD~ Subjective Date/Time of Service: Date of [...] or breast tenderness. No recent f/u by duct layer helper in [place]--was reported to have vasculitis 3 years ago--now resolved but still has some mild erythema and swelling of left greater than right leg without pain. Receives Anastrozole due to weak AL expression--no significant myalgias/arthralgias or hot flashes. No [...] pT1c, N0, M0. Tumor was ER negative, AL weak, and HER-2 nonamplified. She underwent right mastectomy at [facility] in 02/2015. Completed dose dense AC X4 and Taxol X 12 in August 2015. 2. Anastrozole with calcium and vitamin D started in August 2015. Calcium and vitamin D discontinued 07/2016 Anastrozole stopped in 01/2017 when she developed vasculitis (erythematous rash over legs) although no proven association at this time. Anastrozole was resumed in 03/2017 3. Evaluated by duct layer helper in [place] (does not believe she had vasculitis)--no recent [...] inflammatory. She was referred to pulmonary at [facility]. Ground glass opacities resolved on PET/CT 08/2017. [...] of Therapies: 1. Underwent right mastectomy at [facility] in 02/2015. 2. Completed dose dense AC [...] nodes positive, pT1c, N0, M0. ER negative, AL weak, and HER-2 nonamplified. 2. She underwent mastectomy at [facility] in 02/2015. Completed dose dense AC X4 and Taxol X 12 in August 2015. 3. 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 Anastrozole was resumed in 03/2017 4. Saw duct layer helper in [place] for persistent leg pain and swelling (he [...] inflammatory. She was referred to pulmonary at [facility]. --Followup PET/CT 08/2017 showed resolution of prior [...] vasculitis but per second opinion from a duct layer helper and welding machine operator electron beam in [place] this is not vasculitis. They told her [...] for coordination of care (as documented) and whqz-no-uorn counseling of patient and/or family. Dictated By: Kacie Garay MD DD/ 1056 Signed By: <Electronically signed by MD Kacie Garay> 09/05/19 0226 [facility] Work Phone: [phone]) 125-463111-21-2019 History of Past illness Narrative* Problem Noted Date Resolved Date Combined forms of age-related cataract of both e yes 02/22/2019 03/21/2019 documented as of this encounter (statuses as of 03/11/2022) [facility]11-21-2019 History of Past illness Narrative* Problem Noted Date Resolved Date Combined forms of age-related cataract of both e yes 02/22/2019 03/21/2019 documented as of this encounter (statuses as of 07/05/2022) [facility]11-[facility]2019 History of Past illness Narrative* Problem Noted Date Diagnosed Date Resolved Date Combined forms of age-relate d cataract of both eyes 02/22/2019 03/21/2019 documented as of this encounter (statuses as of 01/17/2023) [facility]10-[facility]2019 Progress note Author Kacie Garay [facility] January 22, 2019 9:28pm Note Date/Time January 22, 2019 1 0:40am [facility] at [address] [address] Hem/Onc Follow Up Note - OP Signed Patient: Myla Pollack MR#: [id number] : 1950 Acct:[id number] Age/Sex: 68 / F Type: REG RCR Copies to: Kenyetta Sanchez MD~ Subjective Date/Time of Service: Date of Service: 01/22/2019 Time of Service: 10:39 Chief Complaint: Patient is here for routine follow up history of breast cancer on Anastrozole with mammogram for review, no concerns voiced. HPI: Patient returns to the clinic for 6 month followup. No changes on self breast exam. No skin changes or breast tenderness. [facility]was reported to have vasculitis 2 1/2 years ago--now resolved. Receives Anastrozole due to weak AL expression--no significant myalgias/arthralgias or hot flashes. No bowel or bladder complaints. No interval changes in medical history. We reviewed DEXA scan showing normal bone density 07/17/2018. DIAGNOSIS: 1. 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 Tumor was ER negative, AL weak, and HER-2 nonamplified. She underwent right mastectomy at [facility] in 02/2015. Completed dose dense AC X4 and Taxol X 12 in August 2015. 2. Anastrozole with calcium and vitamin D started in August 2015. Calcium and vitamin D discontinued 07/2016 Anastrozole stopped in 01/2017 when she developed vasculitis (erythematous rash over legs) although no proven association at this time. Anastrozole was resumed in 03/2017 3. Evaluated by duct layer helper in [place] (does not believe she had vasculitis)--no recent [...] inflammatory. She was referred to pulmonary at [facility]. Ground glass opacities resolved on PET/CT 08/2017. [...] of Therapies: 1. Underwent right mastectomy at [facility] in 02/2015. 2. Completed dose dense AC [...] nodes positive, pT1c, N0, M0. ER negative, AL weak, and HER-2 nonamplified. 2. She underwent mastectomy at [facility] in 02/2015. Completed dose dense AC X4 and Taxol X 12 in August 2015. 3. 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 Anastrozole was resumed in 03/2017 4. Saw duct layer helper in [place] for persistent leg pain and swelling (he [...] inflammatory. She was referred to pulmonary at [facility]. --Followup PET/CT 08/2017 showed resolution of prior [...] vasculitis but per second opinion from a duct layer helper and welding machine operator electron beam in [place] this is not vasculitis. They told her [...] for coordination of care (as documented) and [id number]-[id number] counseling of patient and/or family. Dictated By: Kacie Garay MD DD/ 1039 Signed By: <Electronically signed by MD Kacie Garay> 01/22/19 0249 [facility] Work Phone: [phone] Progress note Author Kacie Garay [facility] July 19, 2018 8:36pm Note Date/Time July 19, 2018 10: 48am [facility] at [address] [address] Hem/Onc Follow Up Note - OP Signed Patient: Myla Pollack MR#: [id number] : 1950 Acct:[id number] Age/Sex: 68 / F Type: REG RCR Copies to: Kenyetta Sanchez MD~ Subjective Date/Time of Service: Date of [...] pT1c, N0, M0. Tumor was ER negative, AL weak, and HER-2 nonamplified. She underwent right mastectomy at [facility] in 02/2015. Completed dose dense AC X4 and Taxol X 12 in August 2015. 2. Anastrazole with calcium and vitamin D started in August 2015, Calcium and vitamin D discontinued 07/2016 Anastrozole stopped in 01/2017 when she developed vasculitis (erythematous rash over legs) although no proven association at this time. Anastrozole was resumed in 03/2017 3. Evaluated by duct layer helper in [place] (does not believe she had vasculitis)--no recent [...] inflammatory. She was referred to pulmonary at [facility]. Ground glass opacities resolved on PET/CT 08/2017. [...] or breast tenderness. [place] 2 years ago--now resolved. Receives Anastrozole due to weak AL expression--no significant myalgias/arthralgias or hot flashes. No bowel or bladder complaints. No interval changes in medical history. We reviewed DEXA scan showing normal bone density 07/17/2018. - Summary of Therapies Summary of Therapies: 1. Underwent right mastectomy at [facility] in 02/2015. 2. Completed dose dense AC [...] scan 07/17/2018 reviewed--normal. Annual bilateral mammography at [facility] 01/2018--ordered 6 month f/u mammogram prior to next f/u. Assessment and Plan (1) Breast cancer, right Qualifiers: Estrogen receptor status: negative Patient sex: female 1. 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 ER negative, AL weak, and HER-2 nonamplified. 2. She underwent mastectomy at [facility] in 02/2015. Completed dose dense AC X4 and Taxol X 12 in August 2015. 3. Anastrazole with calcium and vitamin D started in August 2015, Calcium and vitamin D discontinued 07/2016 Anastrozole stopped in 01/2017 when she developed vasculitis although there is no proven association at this time. Anastrozole was resumed in 03/2017 4. Seeing duct layer helper in [place] for persistent leg pain and swelling (he [...] inflammatory. She was referred to pulmonary at [facility]. --Followup PET/CT 08/2017 showed resolution of prior [...] unless new symptoms arise. Annual mammogram at [facility] prior to next followup. DEXA normal--f/u in [...] vasculitis but per second opinion from a duct layer helper and welding machine operator electron beam in [place] this is not vasculitis. They told her [...] for coordination of care (as documented) and rfkv-fb-gnuz counseling of patient and/or family. Dictated By: Kacie Garay MD DD/ 1048 Signed By: <Electronically signed by MD Kacie Garay> 07/19/182035 [facility] Work Phone: [phone] Progress note Author Kacie Garay [facility] January 18, 2018 8:17pm Note Date/Time January 17, 2018 3 :44pm [facility] [place] [address] Hem/Onc Follow Up Note - OP Signed Patient: Myla Pollack MR#: [id number] : 1950 Acct:[id number] Age/Sex: 67 / F Type: REG RCR [...] pT1c, N0, M0. Tumor was ER negative, AL weak, and HER-2 nonamplified. She underwent right mastectomy at [facility] in 02/2015. Completed dose dense AC X4 and Taxol X 12 in August 2015. 2. Anastrazole with calcium and vitamin D started in August 2015, Calcium and vitamin D discontinued 07/2016 Anastrazole stopped in 01/2017 when she developed vasculitis although thereis no proven association at this time. Anastrozole was resumed in 03/2017 3. Now follows with rhematologist in [place] (does not believe she had vasculitis). 4. [...] inflammatory. She was referred to pulmonary at [facility]. Ground glass opacities resolved on PET/CT 08/2017. 5. A focus of increased uptake in the liver of uncertain significance was also identified. On MRI of the liver there was no abnormality found. HPI: Patient returns to the clinic for transfer of care from Dr. Steiner. No changes on self breast exam. No skin changes or breast tenderness. She is seeing a duct layer helper in [place]--was reported to have vasculitis of legs about a yearago. Receives Anastrozole due to weak AL expression--no significant myalgias/arthralgias or hot flashes. No bowel or bladder complaints. - Summary of Therapies Summary of Therapies: 1. Underwent right mastectomy at [facility] in 02/2015. 2. Completed dose dense AC [...] % (Auto) 27.4 % (.) 01/03/17 17:45 [place] % (Auto) 12.7 % (.) 01/03/17 17:45 Eos % (Auto) 1.5 % (.) 01/03/17 17:45 Baso % (Auto) 0.6 % (.) 01/03/17 17:45 Neut # (Auto) 4.4 x10E3/uL (1.8-7.7) 01/03/17 17:45 Lymph # (Auto) 2.1 x10E3/uL (1.00-4.8) 01/03/17 17:45 [place] # (Auto) 1.0 x10E3/uL (0.0-0.8) H 01/03/17 [...] where applicable. 01/11/2018--left diagnostic mammogram reviewed from [facility] Left breast stable with scattered benign appearing calcifications and benign appearing lymph nodes. BIRADS 2--Benign findings. Assessment and Plan (1) Breast cancer, right Qualifiers: Estrogen receptor status: negative Patient sex: female Status: Chronic 1. 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 ER negative, AL weak, and HER-2 nonamplified. 2. She underwent mastectomy at [facility] in 02/2015. Completed dose dense AC X4 and Taxol X 12 in August 2015. 3. Anastrazole with calcium and vitamin D started in August 2015, Calcium and vitamin D discontinued 07/2016 Anastrazole stopped in 01/2017 when she developed vasculitis although there is no proven association at this time. Anastrozole was resumed in 03/2017 4. Seeing duct layer helper in [place] for persistent leg pain and swelling (he [...] inflammatory. She was referred to pulmonary at [facility]. Followup PET/CT 08/2017 showed resolution of prior [...] vasculitis but per second opinion from a duct layer helper and welding machine operator electron beam in [place] this is not vasculitis. They told her [...] for coordination of care (as documented) and dhrl-sh-lnxi counseling of patient and/or family. 25 - 35 minutes Dictated By: Kacie Garay MD DD/ 1543 Signed By: <Electronically signed by Kacie Garay MD> 01/18/182016 [facility] Work Phone: [phone] Progress note Author Mohsen Steiner [facility] August 18, 2017 3:25pm Note Date/Time August 18, 2017 3:23p m [facility] [place] [address] Hem/Onc Follow Up Note - OP Signed Patient: Myla Pollack MR#: [id number] : 1950 Acct:[id number] Age/Sex: 67 / F Type: REG RCR [...] % (Auto) 27.4 % (.) 01/03/17 17:45 [place] % (Auto) 12.7 % (.) 01/03/17 17:45 Eos % (Auto) 1.5 % (.) 01/03/17 17:45 Baso % (Auto) 0.6 % (.) 01/03/17 17:45 Neut # (Auto) 4.4 x10E3/uL (1.8-7.7) 01/03/17 17:45 Lymph # (Auto) 2.1 x10E3/uL (1.00-4.8) 01/03/17 17:45 [place] # (Auto) 1.0 x10E3/uL (0.0-0.8) H 01/03/17 [...] N0, M0. 2. Tumor was ER negative, AL weak, and HER-2 nonamplified. 3. She underwent mastectomy at [facility] in 02/2015. Completed dose dense AC X4 [...] inflammatory. She was referred to pulmonary at [facility] 8. A focus of increased uptake in [...] vasculitis but per second opinion from a duct layer helper and welding machine operator electron beam in [place] this is not vasculitis. They told her [...] for coordination of care (as documented) and sxoe-ai-phvs counseling of patient and/or family. Dictated By: Mohsen Steiner MD DD/ 1517 Signed By: <Electronically signed by Mohsen Steiner MD> 08/18/17 1526 [facility] Work Phone: [phone] Progress note Author Mohsen Steiner [facility] July 21, 2017 3:44pm Note Date/Time July 21, 2017 3:4 0pm [facility] [place] [id number] Hem/Onc Follow Up Note - OP Signed Patient: Myla Pollack MR#: [id number] : 1950 Acct:[id number] Age/Sex: 67 / F Type: REG RCR Copies to: Pinky Og DO~ Subjective Date/Time of Service: Date of Service: 07/21/2017 Time of Service: 15:39 Chief Complaint: Patient here for four month follow up appointment with labs. HPI: Patient returns to the clinic for a pre-scheduled follow-up visit that reports that 1. She saw a welding machine operator electron beam and duct layer helper in [place]. They do not think that she has [...] % (Auto) 27.4 % (.) 01/03/17 17:45 [place] % (Auto) 12.7 % (.) 01/03/17 17:45 Eos % (Auto) 1.5 % (.) 01/03/17 17:45 Baso % (Auto) 0.6 % (.) 01/03/17 17:45 Neut # (Auto) 4.4 x10E3/uL (1.8-7.7) 01/03/17 17:45 Lymph # (Auto) 2.1 x10E3/uL (1.00-4.8) 01/03/17 17:45 [place] # (Auto) 1.0 x10E3/uL (0.0-0.8) H 01/03/17 [...] 01/03/17 17:45 Est GFR (Non-Af Amer) 56 10/02/17 17:45 Glucose 107 mg/dL (70-100) H 01/03/17 [...] N0, M0. 2. Tumor was ER negative, AL weak, and HER-2 nonamplified. 3. She underwent mastectomy at [facility] in 02/2015. Completed dose dense AC X4 [...] inflammatory. She was referred to pulmonary at [facility] 8. A focus of increased uptake in [...] vasculitis but per second opinion from a duct layer helper and welding machine operator electron beam in [place] this is not vasculitis. They told her [...] for coordination of care (as documented) and vuzd-bg-tezd counseling of patient and/or family. Dictated By: Mohsen Steiner MD DD/ 1539 Signed By: <Electronically signed by Mohsen Steiner MD> 07/21/17 1544 [facility] Work Phone: [phone] 558-313812-22-2017 Progress note Author Mohsen Steiner [facility] March 25, 2017 11:28am Note Date/Time March 25, 2017 11:27am [facility] [address] [address] Hem/Onc Follow Up Note - OP Signed Patient: Myla Pollack MR#: [id number] : 1950 Acct:[id number] Age/Sex: 66 / F Type: REG RCR Copies to: Pinky Og DO~ Subjective Date/Time of Service: Date of Service: 03/25/2017 Time of Service: 11:25 Chief Complaint: Patient is here to review MRI report and to follow up after seeing the box repairer. HPI: Patient returns to the clinic for a pre-scheduled follow-up visit that reports that 1. She was seen at [facility] rheumatology, and from there she was referred to a welding machine operator electron beam in [place]. No final diagnosis has yet been made. 2. She had an MRI of the liver 3. She was seen by pulmonary in [facility] Details: All systems reviewed & [...] % (Auto) 27.4 % (.) 01/03/17 17:45 [place] % (Auto) 12.7 % (.) 01/03/17 17:45 Eos % (Auto) 1.5 % (.) 01/03/17 17:45 Baso % (Auto) 0.6 % (.) 01/03/17 17:45 Neut # (Auto) 4.4 x10E3/uL (1.8-7.7) 01/03/17 17:45 Lymph # (Auto) 2.1 x10E3/uL (1.00-4.8) 01/03/17 17:45 [place] # (Auto) 1.0 x10E3/uL (0.0-0.8) H 01/03/17 17:45 Eos # (Auto) 0.1 x10E3/uL (0.0-0.45) 01/03/17 17:45 Baso # (Auto) 0.0 x10E3/uL (0.0-0.2) 01/03/17 17:45 PHA Creatinine Clear N/A 01/03/17 17:45 Sodium 139 mmol/L (136-146) 01/03/17 17:45 Potassium 4.1 mmol/L (3.5-5.1) 10/02/17 17:45 Chloride 98 mmol/L (95-114) 01/03/17 17:45 [...] N0, M0. 2. Tumor was ER negative, AL weak, and HER-2 nonamplified. 3. She underwent mastectomy at [facility] in 02/2015. Completed dose dense AC X4 [...] pulmonary (by her preference to a new box repairer at [facility]) 8. A focus of increased uptake in the liver of quasi-significance was also identified. On MRI of the liver there was no abnormality found (2) Pulmonary embolism Status: Chronic She is currently on warfarin (3) Vasculitis Status: Acute She is being seen by rheumatology at [facility]. (4) Lung nodules Status: [...] for coordination of care (as documented) and pyjd-rb-meha counseling of patient and/or family. Dictated By: Mohsen Steiner MD DD/ 1125 Signed By: <Electronically signed by Mohsen Steiner MD> 03/25/17 1128 [facility] Work Phone: [phone] Progress note Author Mohsen Steiner [facility] March 16, 2017 3:11pm Note Date/Time March 16, 2017 2:57pm [facility] at [address] [address] Hem/Onc Follow Up Note - OP Signed Patient: Myla Pollack MR#: [id number] : 1950 Acct:[id number] Age/Sex: 66 / F Type: REG RCR Copies to: Pinky Og DO~ Subjective Date/Time of Service: Date of Service: 03/16/2017 Time of Service: 14:55 Chief Complaint: Patient is here for review of [employer] reports. HPI: Patient returns to the clinic for a pre-scheduled follow-up visit that reports that 1. She was seen at [facility] rheumatology, and from there she was referred to a welding machine operator electron beam in [place]. No final diagnosis has yet been made [...] % (Auto) 27.4 % (.) 01/03/17 17:45 [place] % (Auto) 12.7 % (.) 01/03/17 17:45 Eos % (Auto) 1.5 % (.) 01/03/17 17:45 Baso % (Auto) 0.6 % (.) 01/03/17 17:45 Neut # (Auto) 4.4 x10E3/uL (1.8-7.7) 01/03/17 17:45 Lymph # (Auto) 2.1 x10E3/uL (1.00-4.8) 01/03/17 17:45 [place] # (Auto) 1.0 x10E3/uL (0.0-0.8) H 01/03/17 [...] N0, M0. 2. Tumor was ER negative, AL weak, and HER-2 nonamplified. 3. She underwent mastectomy at [facility] in 02/2015. Completed dose dense AC X4 [...] pulmonary (by her preference to a new box repairer at [facility]) 8. A focus of increased uptake in the liver of quasi-significance was also identified. MRI of the liver has been requested (2) Pulmonary embolism Status: Chronic She is currently on warfarin (3) Vasculitis Status: Acute She was seen by rheumatology at [facility]. (4) Lung nodules Status: [...] for coordination of care (as documented) and wakx-qx-sazm counseling of patient and/or family. Dictated By: Mohsen Steiner MD DD/ [id number] Signed By: <Electronically signed by Mohsen Steiner MD> 03/16/17 3981 [facility] Work Phone: [phone] Progress note Author Mohsen Steiner [facility] February 28, 2017 2:51pm Note Date/Time February 28, 2017 2:29pm [facility] at [address] [address] Hem/Onc Follow Up Note - OP Signed Patient: Myla Pollack MR#: [id number] : 1950 Acct:[id number] Age/Sex: 66 / F Type: REG RCR Copies to: Pinky Og DO~ Subjective Date/Time of Service: Date of Service: 02/28/2017 Time of Service: 14:26 Chief Complaint: Patient here to follow up after rheumatology referral. HPI: Patient returns to the clinic for a pre-scheduled follow-up visit that reports that 1. She was seen at [facility] rheumatology ROS Details: All [...] % (Auto) 27.4 % (.) 01/03/17 17:45 [place] % (Auto) 12.7 % (.) 01/03/17 17:45 Eos % (Auto) 1.5 % (.) 01/03/17 17:45 Baso % (Auto) 0.6 % (.) 01/03/17 17:45 Neut # (Auto) 4.4 x10E3/uL (1.8-7.7) 01/03/17 17:45 Lymph # (Auto) 2.1 x10E3/uL (1.00-4.8) 01/03/17 17:45 [place] # (Auto) 1.0 x10E3/uL (0.0-0.8) H 01/03/17 [...] N0, M0. 2. Tumor was ER negative, AL weak, and HER-2 nonamplified. 3. She underwent mastectomy at [facility] in 02/2015. Completed dose dense AC X4 [...] She was seen by rheumatology at [facility]. The ordered some initial [...] for coordination of care (as documented) and ukxl-vx-pkga counseling of patient and/or family. Dictated By: Mohsen Steiner MD DD/ 1423 Signed By: <Electronically signed by Mohsen Steiner MD> 02/28/17 3317 [facility] Work Phone: 1([phone] 527-865511-02-2017 Progress note Author Mohsen Steiner [facility] February 03, 2017 9:03am Note Date/Time February 03, 2017 9 :01am [facility] [place] [address] Hem/Onc Follow Up Note - OP Signed Patient: Myla Pollack MR#: [id number] : 1950 Acct:[id number] Age/Sex: 66 / F Type: REG RCR Copies to: Pinky Og DO~ Subjective Date/Time of Service: Date of Service: 02/03/2017 Time of Service: 08:58 Chief Complaint: Patient here to follow up after EGD and EUS. HPI: Patient returns to the clinic for a pre-scheduled follow-up visit that reports that 1. She had an EUS at [facility] by Dr. Tara Hess and [...] % (Auto) 27.4 % (.) 01/03/17 17:45 [place] % (Auto) 12.7 % (.) 01/03/17 17:45 Eos % (Auto) 1.5 % (.) 01/03/17 17:45 Baso % (Auto) 0.6 % (.) 01/03/17 17:45 Neut # (Auto) 4.4 x10E3/uL (1.8-7.7) 01/03/17 17:45 Lymph # (Auto) 2.1 x10E3/uL (1.00-4.8) 01/03/17 17:45 [place] # (Auto) 1.0 x10E3/uL (0.0-0.8) H 01/03/17 [...] N0, M0. 2. Tumor was ER negative, AL weak, and HER-2 nonamplified. 3. She underwent mastectomy at [facility] in 02/2015. Completed dose dense AC X4 [...] Status: Acute She was referred to the [facility] but her appointment is in April [...] for coordination of care (as documented) and ppwe-xk-yjcw counseling of patient and/or family. Dictated By: Mohsen Steiner MD DD/ 0858 Signed By: <Electronically signed by Mohsen Steiner MD> 02/03/17 0903 [facility] Work Phone: [phone] Progress note Author Mohsen Steiner [facility] January 12, 2017 10:59pm Note Date/Time January 12, 2017 1 0:57pm [facility] at [address] [address] Hem/Onc Follow Up Note - OP Signed Patient: Myla Pollack MR#: [id number] : 1950 Acct:[id number] Age/Sex: 66 / F Type: REG RCR Copies to: Pinky Og DO~ Subjective Date/Time of Service: Date of Service: 01/12/2017 Time of Service: 22:52 Chief Complaint: Patient is here to follow up PET scan results. HPI: Patient returns to the clinic for a pre-scheduled follow-up visit that reports that 1. She was diagnosed with vasculitis at [facility] 2. She was found to have [...] % (Auto) 27.4 % (.) 01/03/17 17:45 [place] % (Auto) 12.7 % (.) 01/03/17 17:45 Eos % (Auto) 1.5 % (.) 01/03/17 17:45 Baso % (Auto) 0.6 % (.) 01/03/17 17:45 Neut # (Auto) 4.4 x10E3/uL (1.8-7.7) 01/03/17 17:45 Lymph # (Auto) 2.1 x10E3/uL (1.00-4.8) 01/03/17 17:45 [place] # (Auto) 1.0 x10E3/uL (0.0-0.8) H 01/03/17 [...] N0, M0. 2. Tumor was ER negative, AL weak, and HER-2 nonamplified. 3. She underwent mastectomy at [facility] in 02/2015. Completed dose dense AC X4 [...] We will be referring her to the [facility] for evaluation and management. (4) Lung [...] for coordination of care (as documented) and yfvc-nc-ugjp counseling of patient and/or family. Dictated By: Mohsen Steiner MD DD/ 51 Signed By: <Electronically signed by Mohsen Steiner MD> 01/12/17 4655 [facility] Work Phone: [phone] 127-741610-04-2017 Progress note Author Mohsen Steiner [facility] January 05, 2017 4:45pm Note Date/Time January 05, 2017 4: 38pm [facility] [place] [id number] Hem/Onc Follow Up Note - OP Signed Patient: Myla Pollack MR#: [id number] : 1950 Acct:[id number] Age/Sex: 66 / F Type: REG RCR cc: Pinky Og DO~ Subjective Date/Time of Service: Date of Service: 01/05/2017 Time of Service: 16:37 Chief Complaint: Patient is here for follow up to CT scan patient has been having ongoing vascular problems. HPI: Patient returns to the clinic for a pre-scheduled follow-up visit that reports that 1. She was diagnosed with vasculitis at [facility] 2. She was found to have [...] % (Auto) 27.4 % (.) 01/03/17 17:45 [place] % (Auto) 12.7 % (.) 01/03/17 17:45 Eos % (Auto) 1.5 % (.) 01/03/17 17:45 Baso % (Auto) 0.6 % (.) 01/03/17 17:45 Neut # (Auto) 4.4 x10E3/uL (1.8-7.7) 01/03/17 17:45 Lymph # (Auto) 2.1 x10E3/uL (1.00-4.8) 01/03/17 17:45 [place] # (Auto) 1.0 x10E3/uL (0.0-0.8) H 01/03/17 [...] N0, M0. 2. Tumor was ER negative, AL weak, and HER-2 nonamplified. 3. She underwent mastectomy at [facility] in 02/2015. Completed dose dense AC X4 [...] that in November, she was admitted at [facility] and was diagnosed with vasculitis affecting the left lower extremity. Anecdotally, at the time a Doppler ultrasound had not shown deep vein thrombosis. Presently her left lower extremity appears to be swollen and we areconcerned that that is the source of the pulmonary embolism. A stat Doppler venous ultrasound has been requested (3) Vasculitis Status: Acute Records have been requested from Dr. Chery's office. For the time being weare discontinuing [...] for coordination of care (as documented) and boqu-zt-luuz counseling of patient and/or family. Dictated By: Mohsen Steiner MD DD/ 1637 Signed By: <Electronically signed by Mohsen Steiner MD> 01/05/17 1645 [facility] Work Phone: [phone] Progress note Author Jefferson Rice [facility] January 04, 2017 11:22am Note Date/Time January 04, 2017 11 :22am [facility] [place] [address] Hem/Onc Follow Up Note - OP Signed Patient: Myla Pollack MR#: [id number] : 1950 Acct:[id number] Age/Sex: 66 / F Type: REG RCR [...] for coordination of care (as documented) and hfts-cc-upcm counseling of patient and/or family. Dictated By: Jefferson Rice MD DD/ 1120 Signed By: <Electronically signed by Jefferson Rice MD> 01/04/17 1122 [facility] Work Phone: Evaluation note* Diagnosis Onset Date Resolution Status Breast cancer, right chronic Encounter for monitoring anastrozole therapy chronic Osteoarthritis of knees, bilateral chronic Pulmonary embolism chronic Screening for osteoporosis c hronic Cutaneous leukocytoclastic angiitis resolved History of hypercalcemia res olved Hypercalcemia resolved Lung nodules resolved Neuropathy resolved Vasculitis resolved [facility] Work Phone: Evaluation note* Diagnosis Primary open-angle glaucoma, bilateral, mild stage- [facility] Primary open-angle glaucoma, bilateral, mild stage- [facility] Primary open-angle glaucoma, bilateral, mild stage- Primary [facility] Diagnosis Primary open-angle glaucoma, bilateral, mild stage- Primary [facility] Diagnosis Onset Date Resolution Status Breast cancer, right chronic Screening for osteoporosis c hronic Neuropathy resolved Breast cancer, right chronic Encounter for monitoring anastrozole therapy chronic Osteoarthritis of knees, bilateral chronic Pulmonary embolism chronic Screening for osteoporosis c hronic Cutaneous leukocytoclastic angiitis resolved History of hypercalcemia res olved Hypercalcemia resolved Lung nodules resolved Neuropathy resolved Vasculitis resolved [place] Work Phone: evaluation note* Diagnosis Acute right hip pain- Primary Trochanteric bursitis of right hip Gluteal tendonitis of right buttock documented in this encounter [facility]* Diagnosis Acute pain of right shoulder- Primary Neck pain Cervicalgia documented in this encounter [facility]* Diagnosis Primary open-angle glaucoma, bilateral, mild stage- Primary PCO (posterior capsular opacification), bilateral After-cataract, unspecified Dry eye syndrome of bilateral lacrimal glands Tear film insufficiency, unspecified [facility] Diagnosis Lymphedema- Primary Other noninfectious lymphedema [facility] Diagnosis Lymphedema- Primary Other noninfectious lymphedema Lymphedema- Primary Other noninfectious lymphedema [facility]* Diagnosis Nasal polyp- Primary Unspecified nasal polyp Vasomotor rhinitis Allergic rhinitis, cause unspecified documented in this encounter [facility] Healthcare[facility] note* Diagnosis History of total knee arthroplasty, left- Primary documented in this encounter [facility] HealthcareInstructionsNot on filedocumented in this encounterPro[facility] SystemInstructionsNot on filedocumented in this encounterProAd[facility] SystemProgress note Author Lynsey Land [facility] January 30, 2024 11:05am Note Date/Time January 30, 2024 1 0:16am [facility] [place] [address] Cancer Center Note Signed Patient: Myla Pollack MR#: [id number] : 1950 Acct:[id number] Age/Sex: 73 / F Type: DEP AMB Date of Service: 01/30/24 Copies to: Kenyetta Sanchez MD~ Assessment & Plan A/P (1) Breast cancer, right: Plan: Estrogen receptor status: negative Patient sex: female 1. 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 ER negative, AL weak, and HER-2 nonamplified. 2. She underwent mastectomy at [facility] in 02/2015. Completed dose dense AC X4 and Taxol X 12 in August 2015. 3. 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 Anastrozole was resumed in 03/2017 4. Saw duct layer helper in [place] for persistent leg pain and swelling (he [...] inflammatory. She was referred to pulmonary at [facility]. --Followup PET/CT 08/2017 showed resolution of prior [...] changes on self breast exam. Screening left dopcoavpq01/19/2023 without recurrence. No systemic symptoms of recurrence, [...] 01/21/2021: Here for 6 month f/u after October mammogram--denies breast or axillary pain. No recurrence [...] of anastrozole, [facility] now [facility] to return to [facility]). We will arrange her annual follow-ups after her annual mammograms in January of each year. She also requested refill of breast prosthesis and mastectomy bra. No breast exam due to telephone visit. No skin changes or breast tenderness. No recent f/u by duct layer helper in [place]--was reported to have vasculitis 4 years ago--now resolved but still has some mild erythema and swelling of left greater than right leg without pain. Receives Anastrozole due to weak AL expression--no significant myalgias/arthralgias or hot flashes. No [...] pT1c, N0, M0. Tumor was ER negative, AL weak, and HER-2 nonamplified. She underwent right mastectomy at [facility] in 02/2015. Completed dose dense AC X4 [...] years of adjuvant therapy. 3. Evaluated by duct layer helper in [place] (does not believe she had vasculitis)--no recent [...] inflammatory. She was referred to pulmonary at [facility]. Ground glass opacities resolved on PET/CT 08/2017. [...] of Therapies: 1. Right breast mastectomy at [facility] (Dr. Rodriguez) in 02/2015. 2. Completed [...] breast cancer and go over mamogram. [facility] Social History Social History (Updated 01/30/24 @ [...] <Electronically signed by CHIDI Land> 01/30/24 [address] Work Phone: Summary Purpose Family History No [...] greater trochanteric bursa Dino George, BET[address] [place] [address] Referral ID Status Reason Start Date Expiration Date V isits Requested Visits Authorized [id number] Authorized 12/19/2023 06/16/2024 1 1 Additional Source Comments INFORMATION SOURCE (unrecogn ized section and content) DATE CREATED AUTHOR 09/27/2017 [facility] DATE CREATED AUTHOR AUTHOR'S ORGANIZ ATION 01/18/2018 [facility] DATE CREATED AUTHOR AUTHOR'S ORGANIZ ATION 08/05/2018 [facility] DATE CREATED AUTHOR AUTHOR'S ORGANIZ ATION 09/10/2022 [facility] DATE CREATED AUTHOR AUTHOR'S ORGANIZ ATION 01/31/2024 [facility] DATE CREATED AUTHOR AUTHOR'S ORGANIZ ATION 04/21/2024 [facility] DATE CREATED AUTHOR AUTHOR'S ORGANIZ ATION 07/13/2024 [facility] DATE CREATED AUTHOR AUTHOR'S ORGANIZ ATION 07/25/2024 [facility] DATE CREATED AUTHOR AUTHOR'S ORGANIZ ATION 07/31/2024 [facility] Care Teams (unrecognized sec tion and content) Team Status: Active Member Role Status Dates Kenyetta Sanchez MD Primary Care Provider Active Team Status: Inactive Member Role Status Dates Kenyetta Sanchez MD Primary Care Provider Active Start: January 30, 2024 End: January 30, 2024 Lynsey Land APRN Attending Provider Active Start: January 30, 2024 End: January 30, 2024 Team Status: Active Member Role Status Dates Christian Steiner MD Other Provider Active Start : January 30, 2024 Kacie Garay MD Attending Provider Active Start: January 30, 2024 Kenyetta Sanchez MD Primary Care Provider Active Start: January 30, 2024 Team Status: Active Member Role Status Dates Christian Steiner MD Other Provider Active Kacie Garay MD Attending Provider Active Kenyetta Sanchez MD Primary Care Provider Active Floriculture Teacher Relationship Specialty Start Date End Date Kenyetta Sanchez MD [address] [place] [address] PCP - General Family Medicine 03/14/19 Floriculture Teacher Relationship Specialty Start Date End Date Kenyetta Sanchez MD PCP - General Family Medicine 03/14/19 Floriculture Teacher Relationship Specialty Start Date End Date Kenyetta Sanchez MD PCP - General Family Medicine 03/14/19 Floriculture Teacher Relationship Specialty Start Date End Date Kenyetta Sanchez MD [address] [place] [address] PCP - General Family Medicine 09/15/22 Floriculture Teacher Relationship Specialty Start Date End Date Kenyetta Sanchez MD PCP - General Family Medicine 03/14/19 Floriculture Teacher Relationship Specialty Start Date End Date Kenyetta Sanchez MD PCP - General Family Medicine 03/14/19 Floriculture Teacher Relationship Specialty Start Date End Date Kenyetta Sanchez MD PCP - General Family Medicine 03/14/19 Floriculture Teacher Relationship Specialty Start Date End Date Kenyetta Sanchez MD [address] [place] [facility] [address] PCP - General Family Medicine 09/15/22 Floriculture Teacher Relationship Specialty Start Date End Date Kenyetta Sanchez MD [address] [place] [facility] [address] PCP - General Family Medicine 09/15/22 Floriculture Teacher Relationship Specialty Start Date End Date Kenyetta Sanchez MD [address] [place] [facility] [address] PCP - General Family Medicine 09/15/22 Floriculture Teacher Relationship Specialty Start Date End Date Kenyetta Sanchez MD [address] [place] [facility] [address] PCP - General Family Medicine 09/15/22 Floriculture Teacher Relationship Specialty Start Date End Date Kenyetta Sanchez MD [address] [place] [address] PCP - General Family Medicine 12/20/19 Floriculture Teacher Relationship Specialty Start Date End Date Kenyetta Sanchez MD PCP - General Family Medicine 12/20/19 Floriculture Teacher Relationship Specialty Start Date End Date Kenyetta Sanchez MD [address] [facility] [place] [address] PCP - General Family Medicine 09/15/22 Floriculture Teacher Relationship Specialty Start Date End Date Kenyetta Sanchez MD [address] [facility] [place] [address] PCP - General Family Medicine 09/15/22 Floriculture Teacher Relationship Specialty Start Date End Date Kenyetta Sanchez MD [address] [place] [facility] [address] PCP - General Family Medicine 09/15/22 Goals (unrecognized section and content) Goals may be documented in a n alternate sectionGoals may be documented in an alternate sectionGoals may be documented in an alternate sectionNot on filedocumented as of this encounterNot on filedocumented as of this encounter Source Comments (unrecognize d section and content) In the event this informatio n is protected by the Federal Confidentiality of Alcohol and Drug Abuse Patient Records regulations: The Federal rules restrict any use of the information to criminally investigate or prosecute any alcohol or drug abuse patient.[facility] the event this information is protected by the Federal Confidentiality of Alcohol and Drug Abuse Patient Records regulations: The Federal rules restrict any use of the information to criminally investigate or prosecute any alcohol or drug abuse patient.[facility] the event this information is protected by the Federal Confidentiality of Alcohol and Drug Abuse Patient Records regulations: The Federal rules restrict any use of the information to criminally investigate or prosecute any alcohol or drug abuse patient.[facility] the event this information is protected by the Federal Confidentiality of Alcohol and Drug Abuse Patient Records regulations: The Federal rules restrict any use of the information to criminally investigate or prosecute any alcohol or drug abuse patient.[facility] Hospital[facility] the event this information is protected by the Federal Confidentiality of Alcohol and Drug Abuse Patient Records regulations: The Federal rules restrict any use of the information to criminally investigate or prosecute any alcohol or drug abuse patient.[facility] Hospital[facility] the event this information is protected by the Federal Confidentiality of Alcohol and Drug Abuse Patient Records regulations: The Federal rules restrict any use of the information to criminally investigate or prosecute any alcohol or drug abuse patient.[facility] the event this information is protected by the Federal Confidentiality of Alcohol and Drug Abuse Patient Records regulations: The Federal rules restrict any use of the information to criminally investigate or prosecute any alcohol or drug abuse patient.[facility] Reason for Visit (unrecogniz ed section and content) Reason Comments Appointment Reason Comments Glaucoma Suspect Evaluation Epiretinal Membrane Reason Comments Glaucoma Suspect Follow Up VATA Reason Comments Glaucoma Follow Up Reason Comments Glaucoma Suspect Evaluation Reason Comments Pain Reason Comments Glaucoma Suspect Follow Up Reason Comments vasculitis Reason Comments 1 year follow up for venous insufficienc y. No testing prior Reason Comments Nasal Polyps 1 year check Reason Onset Date Comments dentist 07/25/2024 FOR RECORDS PERTAINING TO PATIENTS WHO ARE [...] BE BASED ON THE PRIMARY CLINICAL RECORDS. [employer] [facility]. provides no warranty or guarantee of the accuracy or completeness of information in this document.
--- NOTE | 2024-08-22 11:25 | PM.CN ---
Consult Note: HPI Data of Consult Patient: known to practice within the last 3 years Requesting Physician: Magali Castle NP Primary Care Provider: Guille Reynolds MD Consult Narrative Narrative: Myla Pollack a pleasant 74 year old female presents for evaluation of severe neck pain. Pt has been experiencing intermittently severe neck pain increasing since february of 2024, pain has not responded to PT/HEP, tylenlol, heat/ice, or NSAIDs. of note pt is on coumadin and should avoid NSAIDs. recently underwent left and right C2/3 C3/4 facet RFA with >70% improvement ongoing, has noticed significant improvement from RFAs in axial facet mediated pain. notes continued myofascial pain and discomfort with rolling burritos at work while looking down for 1-2 hours. cc:: CC: Magali Castle NP Review of Systems ROS Status of ROS 10 or more systems reviewed and unremarkable except as noted in history and below Musculoskeletal Reports: neck pain; Denies: extremity pain PFSH [facility] Medical History (Updated 08/22/24 @ 11:27 by Magali Castle NP) Hammertoe of left foot ?M20.42 - Other hammer toe(s) (acquired), left foot (ICD-10) Other osteonecrosis, left foot ?M87.875 - Other osteonecrosis, left foot (ICD-10) Hallux rigidus, left foot ?M20.22 - Hallux rigidus, left foot (ICD-10) Nasal polyp ?J33.9 - Nasal polyp, unspecified (ICD-10) Neuropathy ?G62.9 - Polyneuropathy, unspecified (ICD-10) Osteoarthritis ?M19.90 - Unspecified osteoarthritis, unspecified site (ICD-10) Arthritis ?M19.90 - Unspecified osteoarthritis, unspecified site (ICD-10) Pulmonary embolism ?I26.99 - Other pulmonary embolism without acute cor pulmonale (ICD-10) Chronic obstructive pulmonary disease ?J44.9 - Chronic obstructive pulmonary disease, unspecified (ICD-10) Asthma ?J45.909 - Unspecified asthma, uncomplicated (ICD-10) Migraine ?G43.909 - Migraine, unspecified, not intractable, without status migrainosus (ICD-10) Cataract ?H26.9 - Unspecified cataract (ICD-10) Varicose vein of leg ?I83.90 - Asymptomatic varicose veins of unspecified lower extremity (ICD-10) Painful orthopaedic hardware ?T84.84XA - Pain due to internal orthopedic prosthetic devices, implants and grafts, initial encounter (ICD-10) Hallux rigidus ?M20.20 - Hallux rigidus, unspecified foot (ICD-10) Hammertoe ?M20.40 - Other hammer toe(s) (acquired), unspecified foot (ICD-10) Hallux valgus ?M20.10 - Hallux valgus (acquired), unspecified foot (ICD-10) Breast cancer ?C50.919 - Malignant neoplasm of unspecified site of unspecified female breast (ICD-10) Surgical History (Updated 04/19/24 @ 14:47 by Elisabeth Walters) History of esophagogastroduodenoscopy (EGD) ?Z98.890 - Other specified postprocedural states (ICD-10) History of cataract extraction ?Z98.49 - Cataract extraction status, unspecified eye (ICD-10) History of colonoscopy ?Z98.890 - Other specified postprocedural states (ICD-10) H/O mastectomy ?Z90.10 - Acquired absence of unspecified breast and nipple (ICD-10) History of carpal tunnel release ?Z98.890 - Other specified postprocedural states (ICD-10) History of foot surgery ?Z98.890 - Other specified postprocedural states (ICD-10) History of foot surgery ?Z98.890 - Other specified postprocedural states (ICD-10) History of arthroplasty of knee ?Z96.659 - Presence of unspecified artificial knee joint (ICD-10) Family History Mother Pancreatic cancer Other Family history of diabetes mellitus Family history of heart disease Family history of hypertension Family history of myocardial infarction Family history of pancreatic cancer Social History Within the past year, how often did you have a drink containing alcohol: never Score interpretation: A score less than 3 is consistent with normal alcohol consumption. Smoking status: Never smoker Non-prescribed substance use: denies use Previous occupational history: [employer] work at [employer] Highest level of school completed/degree received: high school graduate Meds Home Medications and Allergies Home Medications ?Medication ?Instructions ?Recorded ?Confirmed ?Type atorvastatin 20 mg tablet 20 mg PO QDAY 10/13/22 07/23/24 History cyclosporine 0.05 % eye drops in a 1 drp ophthalmic (eye) Q12H 10/13/22 07/23/24 History dropperette (Restasis) fluticasone propionate 50 2 spray intranasal Q12H 10/13/22 07/23/24 History mcg/actuation nasal spray,suspension montelukast 10 mg tablet 10 mg PO .QHS 10/13/22 07/23/24 History pregabalin 75 mg capsule 75 mg PO Q12H 10/13/22 07/23/24 History warfarin 5 mg tablet (Jantoven) 7.5 mg PO QDAY 10/13/22 07/23/24 History fluticasone furoate 100 1 inh inhalation DAILY 04/19/24 07/23/24 History mcg-vilanterol 25 mcg/dose inhalation powder (Breo Ellipta) sumatriptan succinate 100 mg tablet 100 mg PO 04/19/24 History albuterol sulfate 90 mcg/actuation 2 inh inhalation Q6H PRN shortness 07/23/24 07/23/24 History breath activated powder inhaler of breath or wheezing diazepam 10 mg tablet mg 07/23/24 History Allergies Allergy/AdvReac Type Severity Reaction Status Date / Time Sulfa (Sulfonamide Allergy Unknown Verified 07/23/24 08:53 Antibiotics) Exam Constitutional Documenting provider has reviewed patient's vital signs: yes Common normals: no apparent distress, oriented x3, healthy appearing, alert and well nourished General appearance: cooperative [facility] Common normals: normocephalic, hearing grossly normal bilaterally and moist oral mucous membranes Head and scalp: normocephalic Eye Common normals: PERRL Pupil: PERRL Neck & C-Spine Common normals: full ROM General: normal visual inspection Cervical spine: trapezius muscle tenderness; cervical ROM not abnormal, no pain with cervical ROM, no cervical spine tenderness, no paracervical muscle spasm and Lhermitte's sign negative Other: negative spurlings sensation intact BUE strength 5/5 in BUE negative facet loading myofascial tenderness noted to bilateral trapezius muscles Chest Common normals: inspection of chest normal Respiratory Common normals: normal respiratory effort, no retractions and no use of accessory muscles Neuro Common normals: oriented x3, CN's II-XII intact bilaterally, moves all extremities, no focal motor deficits, no sensory deficits noted and deep tendon reflexes 2+ bilaterally Sensorium/orientation: alert Motor exam: strength 5/5 throughout and no movement abnormalities noted Psych Common normals: mental status grossly normal, thought process normal, cooperative, affect normal, speech normal and activity/motor behavior normal Speech: normal speech Thought process: normal thought process Results Additional Findings Additional findings: There are moderate disc osteophyte complex associated with uncovertebral joint arthrosis from C3 to T1 contributing to neuroforaminal and canal stenosis. At the level of C2-C3, there is no neuroforaminal narrowing or canal stenosis. At the level of C3-C4, there is mild bilateral neuroforaminal narrowing and mild canal stenosis. At the level of C4-C5, there is severe bilateral neuroforaminal narrowing and severe canal stenosis. At the level of C5-C6, there is mild bilateral neuroforaminal narrowing and mild canal stenosis. At the level of C6-C7, there is mild right and moderate left neuroforaminal narrowing and mild canal stenosis. Level of C7-T1 is unremarkable. No definite muscular or ligamentous injury is noted. Assessment and Plan Assessment and Plan (1) Cervical spondylosis: (2) Cervical spinal stenosis: (3) Degenerative disc disease, cervical: (4) Myofascial pain: Plan start baclofen 5-10mg BID PRN pain/spasms declining PT for myofascial pain, encouraged stretching and resistance band strengthening for neck and shoulders continue topical cream formulation TID to QID as needed for pain f/u 3 months, sooner if needed
== END 2024-08-22 10:56 | disposition home or self-care (01) ==
LOC: PM 10:55
PROVIDERS: PCP Family Medicine; Visit Provider Nurse Practitioner
DX: M47.812 Spondylosis without myelopathy or radiculopathy, cervical region (principal); M48.02 Spinal stenosis, cervical region; M50.30 Other cervical disc degeneration, unspecified cervical region; M79.18 Myalgia, other site
CPT/HCPCS: G0463

== ENCOUNTER 2024-09-02 07:44 | Outpatient (RCR) | payer MEDICARE, OTHER, SELFPAY | END 2024-09-27 14:42 | disposition home or self-care (01) | LOC: MM 07:44 | PROVIDERS: PCP Family Medicine; Visit Provider Internal Medicine | DX: Z51.81 Encounter for therapeutic drug level monitoring (principal); Z79.01 Long term (current) use of anticoagulants; I26.99 Other pulmonary embolism without acute cor pulmonale | CPT/HCPCS: 85610; G0463 ==

== ENCOUNTER 2024-10-02 02:30 | Outpatient (RCR) | payer MEDICARE, OTHER, SELFPAY | END 2024-11-01 16:50 | disposition home or self-care (01) | LOC: MM 02:30 | PROVIDERS: PCP Family Medicine; Visit Provider Internal Medicine | DX: Z51.81 Encounter for therapeutic drug level monitoring (principal); Z79.01 Long term (current) use of anticoagulants; I26.99 Other pulmonary embolism without acute cor pulmonale | CPT/HCPCS: 85610; G0463 ==

== ENCOUNTER 2024-11-02 00:18 | Outpatient (RCR) | payer MEDICARE, OTHER, SELFPAY | END 2024-11-29 13:12 | disposition home or self-care (01) | LOC: MM 00:18 | PROVIDERS: PCP Family Medicine; Visit Provider Internal Medicine | DX: Z51.81 Encounter for therapeutic drug level monitoring (principal); Z79.01 Long term (current) use of anticoagulants; I26.99 Other pulmonary embolism without acute cor pulmonale | CPT/HCPCS: 85610; G0463 ==

== ENCOUNTER 2024-11-21 10:54 | Outpatient (OUT) | payer MEDICARE, OTHER, SELFPAY ==
--- OUTSIDE RECORDS SUMMARY | 2024-11-21 10:58 | XMS_ITS | Clinical Summary ---
Demographics Address [address] [place] [address] Home Phone Mobile Phone Email Address Preferred Language Costa Rican Marital Status Taoism Affiliation Unknown Race White Ethnic Group Not or Lati no Author Organization [employer] Address [id number] [address] [place] [address] Care Team Providers Care Phone Counselor Name Role Phone Guille Reynolds MD Primary Care Provider [phone] Allergies Active Allergy Reactions Criticality Noted Date [...] the evening. 5 mg M-W-F, 7.5 mg Uxu-Xmgk-Iresy- Sat . Active ascorbic acid, vitamin C, [...] 1 year. Arthritis of right knee 02/12/2020 Family History Medical History Relation Name Comments [...] Recorded Do you need help finding a [facility] center and/or a training program? No 02/12/2020 [...] 07/12/2025 07/12/2024 Medical Devices Implanted Type Area Body Coverer Device Identifier Shelf Expiration Date Model / Serial / Lot Cmnt Bn Bio 40gm Rpl [id number] - Sna - [id number] Implanted:Qty : 2 on 02/12/2020 by Leonardo Boudreaux Jr., DO at [facility] Cement Right: Knee [employer] 04/03/2024 [id number] / NA / [id number] Ins Artc 3-5 E-F 11mm Kn Rt Ps - Sna - [id number] Implanted:Qty : 1 on 02/12/2020 by Leonardo Boudreaux Jr., DO at [facility] Orthopedic Implant Right: Knee [employer] [id number] 05/04/2020 [id number] 11 / NA / [id number] Cmpt Fem 5 Kn Rt Persona Strl - Sna - [id number] Implanted:Qty : 1 on 02/12/2020 by Leonardo Boudreaux Jr., DO at [facility] Orthopedic Implant Right: Knee [employer] 04/03/2028 [id number] 02 / NA / [id number] Cmpt Ptlr 32mm Persona Alply - Sna - [id number] Implanted:Qty : 1 on 02/12/2020 by Leonardo Boudreaux Jr., DO at [facility] Orthopedic Implant Right: Knee [employer] 10/02/2027 [id number] 32 / NA / [id number] Bsplt Tib 5d E Kn Rt Stm - Sna - [id number] Implanted:Qty : 1 on 02/12/2020 by Leonardo Boudreaux Jr., DO at [facility] Plate Right: Knee [employer] 03/03/2029 [id number] 02 / NA / [id number] Explanted Type Area Body Coverer Device Identifier Shelf Expiration Date Model / Serial / Lot Scr Headframe 25mm 2.5mm - Sna - [id number] Explanted:Qty: 1 on 02/12/2020 by Leonardo Boudreaux Jr., DO at [facility] Screw Right: Knee [employer] [id number] 01/07/2030 [id number] 08-26 / [id number] Insurance * Guarantor: Myla Pollack Account Type Relation to Patient Date of Phone Billing Address Personal/Family Self 1950 [address] [place] [address] MEDICARE [facility] Advance Directives * Full Code (Latest Code Status on File) Date Activated Date Inactivated Comments 02/12/2020 12:28 PM 02/13/2020 2:43 PM Care Teams Phone Counselor Relationship Specialty Start Date End Date Guille Reynolds MD PCP - General Family Medicine 12/20/19
--- OUTSIDE RECORDS SUMMARY | 2024-11-21 10:58 | XMS_ITS | Encounter Summary ---
Author Organization [facility] Address [address] [place] [address] Care Team Providers Care Mortgage Underwriter Name Role Phone Guille Reynolds MD Primary Care Provider [phone] Encounter Details Date Type Department Care Team (Late st Contact Info) Description 01/23/2024 External Result Encounter [facility] External Department Unsolicited Kacie Garay MD [address] [place] [address] Social History Tobacco Use Types Packs/Day Years [...] 05/22/2025 10:00 AM EST Office Visit [facility] [address] [facility] [place] [address] Jr. Leonardo Boudreaux DO [address] [place] [address] documented as of this encounter Procedures Procedure [...] José Sandoval M.D.01/23/2024 10:09 AM Dictation Location: [facility] Transcribed By: [facility] 01/23/24 1009 Dictated By: José Snadoval DO 01/23/24 1008 Signed By: <Electronically signed by José Sandoval DO in OV> 01/23/24 1009 Narrative 01/23/2024 10:12 AM EDT [facility] [place] [id number] Mammography Report Signed Patient: Myla Pollack MR#: [id number] : 1950 Acct:[id number] Age/Sex: 73 / F ADM Date: 01/23/24 Loc: XT Room: Type: [facility] RCR Attending Dr: Kacie Garay [...] Procedure Note Radiology, Radiologist, MD - 01/23/2024 [facility] [place] [address] [place], [place] [id number] Mammography Report Signed Patient: Myla Pollack#: [id number] : 1950cct:[id number] Age/Sex: 73 / FADM Date: 01/23/24 Loc: XT Room:Type: [facility] Attending Dr: Kacie [...] José Sandoval M.D.01/23/2024 10:09 AM Dictation Location: [facility] Transcribed By: ALBINO 01/23/24 1009 Dictated By: José Sandoval DO 01/23/24 1008 Signed By: <Electronically signed by José Sandoval DO in OV> 01/23/24 1009 us Kacie Garay MD IMG BI PROCEDURES Final Result documented in this encounter Visit Diagnoses Not on filedocumented in this encounter Care Teams Mortgage Underwriter Relationship Specialty Start Date End Date Guille Reynolds MD PCP - General Family Medicine 09/15/22 documented as of this encounter
--- OUTSIDE RECORDS SUMMARY | 2024-11-21 10:58 | XMS_ITS | Clinical Summary ---
Demographics Address [address] [place] [address] Home Phone Mobile Phone Email Address Preferred Language ENG Marital Status Buddhism Affiliation Unknown Race White Ethnic Group Unknown Author Organization [facility] Address [address] [place] [id number] Support Name Relationship Address Phone Leonardo Pollack Spouse [address] [place] [address] Care Team Providers Care Evp Managing Director Name Role Phone Guille Reynolds MD Primary Care Provider [phone] Allergies Active Allergy Reactions Criticality Noted Date [...] January 05, 2017 3:53pm 01-05-[address] [facility] ([id number]) 01/06/20 17 Active Flaxseed Oil 1,000 mg cap Linseed Oil Flaxseed Oil Active 1000 MG Oral Twice daily March 25, 2017 10:57am 03-25-[address] [facility] ([id number]) 03/25/20 17 Active Cholecalcifero l, Vitamin D3, 25 mcg (1,000 unit) cap Cholecalciferol Cholecalciferol (Vitamin D3) Active 1000 UNIT Oral Daily July 19, 2018 10:42am 07-19-[address] [facility] ([id number]) 07/20/19 19 Active CHONDROITIN SULFATE A ORAL once daily. Act renetta multivitamin (MULTIPLE VITAMINS) tablet Multivitamin (Multiple Vitamin) Tablet Active 1 TAB PO Daily January 21, 2022 12:00am 01/22/20 22 Active baclofen 10 mg tablet 08/02/19 25 Active BREO ELLIPTA 100-25 mcg/dose inhaler 04/04/19 25 Active ipratropium bromide (ATROVENT) 42 mcg (0.06 %) nasal spray ADMINISTER 2 SPRAYS INTO EACH NOSTRIL IN THE MORNING, IN THE EVENING, AND BEFORE BEDTIME 07/25/19 25 Active SUMAtriptan (IMITREX) 100 mg tablet TAKE 1 TABLET BY MOUTH 2 TIMES A DAY NEEDED, space doses at least 2 hours apart 10/12/19 25 Active latanoprost (XALATAN) 0.005 % ophthalmic solution Use 1 drop in both eyes daily at bedtime. 2.5 mL 11 10/23/19 25 Active Hospital, Clinic, or Other Facility Administered Medication Ordered Dose Route Frequency Start Date End Date Status tropicamide 1 % 1 drop (MYDRIACYL)Indications:Pr imary open-angle glaucoma, bilateral, mild stage 1 drop OU DIRECTED 10/22/2024 10/22/2024 Ended PHENYLephrine 2.5 % 1 drop (AK-DILATE, KRYSTYNA-SYNEPHRINE)Indication s:Primary open-angle glaucoma, bilateral, mild stage 1 drop OU DIRECTED 10/22/2024 10/22/2024 Ended fluorescein-benoxinate 0.3-0.4 % 1 drop (FLURESS)Indications:Prim parish open-angle glaucoma, bilateral, mild stage 1 drop OU DIRECTED 10/22/2024 10/22/2024 En ded Active Problems Problem Noted Date Diagnosed Date [...] striking against object, initial encounter 03/22/2022 Other retirement (current) drug therapy Unspecified sprain of right [...] left foot 12/05/2018 Peripheral vascular disease, unspecified 08/09/2 019 Pain in left foot 11/07/2018 Unknown cause of injury 01/28/2017 Breast cancer COPD (chronic obstructive pulmonary disease) Pulmonary embolism Resolved Problems Problem Noted Date Diagnosed Date Resolved Date Combined forms of age-relate d cataract of both eyes 02/22/2019 03/21/2019 Encounters Date Type Department Care Team Description 10/22/2024 10:45 AM EDT Office Visit [facility] [address] [place] [address] Maggie Vidales MD [facility] Primary open-angle glaucoma, bilateral, mild stage (Primary Dx) 10/15/2024 Travel from Last 3 Months Immunizations Immunization Administration Dates Next Due influenza (HD-IIV4) vaccine, age 65+ yr, high dose, quadrivalent, PF (FLUZONE HIGH-DOSE) 01/05/2020 influenza (IIV4) vaccine, ag e 6 mo - 64 yr, quadrivalent, PF (AFLURIA, FLUARIX, FLULAVAL, FLUZONE) 06/09/2015 novel influenza (Z0D3-54) vaccine, PF 01/30/2009 pneumococcal conjugate (PCV1 3) [...] is lower risk 7 04/18/2024 Data from: https://www.neighborhoodatlas.medicine.[facility].edu/. Last address used for calculation [address] [facility] 04/18/2024 Comments No Sex and Gender Information [...] Department Care Team (Latest Contact Info) Description 01/07/2025 10:45 AM EDT Office Visit [facility] [address] [place] [address] Maggie Vidales MD [address] [place], [place] [id number] [facility] [address] [id number] Return in about 2 months (around 12/23/2024) for VATA. Health Maintenance Due Date Last Done Comments Anxiety Screening 1970 Depression Screening 1970 Hepatitis C Screening 1970 DTaP,Tdap,Td Vaccine (1 - Tdap) 1971 CT Colonography 1997 Cologuard (FIT-DNA) 1997 Colonoscopy 1997 Colorectal Cancer Screening 1997 Fecal Occult Blood 1997 Lipid Screening 1997 Sigmoidoscopy 1997 Shingrix Vaccine (2 of 3) 11/13/2014 09/18/2014 Bone Density Screening 2017 Diabetes Screening 02/12/2023 02/13/2020, 01/17/2020 Advance Directive Discussion 04/04/2024 Influenza Vaccine (#1) 2024 , 06/09/2015, 01/30/2009 Mammogram Screening 01/22/2025 01/23/2024, 01/23/2024, 01/23/2024, Additional history exists RSV Vaccine (1 - 1-dose 75+ series) 2027 Pneumococcal Vaccine: 50+ Completed 2017, 10/20/2017, 09/17/2015 Medical Devices Implanted Type Area Office Support Specialist Device Identifier Shelf Expiration Date Model / Serial / Lot Lens Acrysof Iq Toric 6mm +24.5 Diopter +6 Cylinder 0 D Biconvex Acrylic 13 - [id number] Implanted:Qty: 1 on 03/14/2019 by Haley Saul V, MD at [facility] Intraocular Lens Left: Eye - Lens [employer] 12/03/2019 [id number] 245 / [id number] / Description:-0.57 Lens Acrysof Iq Toric Stableforce 6mm 0 D +22.5 Diopter +2.25 Cylinder - [id number] Implanted:Qty: 1 on 03/21/2019 by Haley Saul V, MD at [facility] Intraocular Lens Right: Eye [employer] 09/02/2023 [id number] 225 / [id number] / Description:-0.80 Istent Inject - [id number] Implanted:Qty: 1 on 03/14/2019 by Haley Saul V, MD at [facility] Stent Left: Eye [employer] 12/02/2021 G2-M-IS-U S / [id number] / [id number] Istent Inject - [id number] Implanted:Qty: 1 on 03/21/2019 by Haley Saul V, MD at [facility] Stent Right: Eye [employer] 12/02/2021 G2-M-IS-U S / / [id number] Procedures Procedure Name Priority Date/Time Associated Diagnosis Comments OCT OPTIC NERVE CIRRUS OU (BOTH EYES) Routine 10/22/2024 11:11 AM EDT Primary open-angle glaucoma, bilateral, mild stage VISUAL FIELD 24-2 OU (BOTH EYES) Routine 10/22/2024 11:00 AM EDT Primary open-angle glaucoma, bilateral, mild stage from Last 3 Months Results * OCT OPTIC NERVE CIRRUS OU (BOTH EYES) (10/22/2024 11:11 AM EDT) Anatomical Region Laterality Modality Other Narrative 10/22/2024 11:39 AM EDT Date of Procedure 10/22/2024. Military Analyst Information Hand Candy Dipper: JOSIE. Quality Right Eye Good. Left Eye Good. NFL Interpretation Right Eye Superior loss. Left Eye Normal. Interval Change Right Eye Worse. Left Eye Stable. Maggie Vidales MD OPHTHALMOLOGY Final Result * VISUAL FIELD 24-2 OU (BOTH EYES) (10/22/2024 11:00 AM EDT) Anatomical Region Laterality Modality Other Narrative 10/22/2024 11:39 AM EDT Date of Procedure 10/22/2024. Military Analyst Information Hand Candy Dipper: JOSIE. Reliability Right Eye Good. Left Eye Good. Interpretation Right Eye Normal. Left Eye Normal. Maggie Vidales MD OPHTHALMOLOGY Final Result from Last 3 Months Insurance * Guarantor: Myla Pollack Account Type Relation to Patient Date of Phone Billing Address Personal/Family Self 1950 [address] [place] [address] MEDICARE MMO MEDICARE SUPPLEMENT Care Teams Evp Managing Director Relationship Specialty Start Date End Date Guille Reynolds MD PCP - General Family Medicine 03/14/19
--- OUTSIDE RECORDS SUMMARY | 2024-11-21 10:58 | XMS_ITS | Clinical Summary ---
Demographics Address [address] [place] [address] Home Phone Preferred Language en Marital Status Episcopal Affiliation Unknown Race White Ethnic Group Not or Lati no Author Organization [facility] Address [address] [place] [address] Phone Care Team Providers Care Dialysis Social Worker Name Role Phone Unavailable Primary Care Provider [...]
--- OUTSIDE RECORDS SUMMARY | 2024-11-21 10:58 | XMS_ITS | Encounter Summary ---
Author Organization [facility] Address [address] [place] [address] Care Team Providers Care Investor Name Role Phone Guille Reynolds MD Primary Care Provider [phone] Encounter Details Date Type Department Care Team (Late st Contact Info) Description 01/20/2023 External Result Encounter [facility] External Department Unsolicited Claire Duran, APPLE CHECKER [address] [place] [address] Social History Tobacco Use Types Packs/Day Years [...] 05/22/2025 10:00 AM EST Office Visit [facility] [address] [place] [address] Jr. Leonardo Boudreaux, DO [address] [place] [address] documented as of this encounter Procedures Procedure [...] Location: [facility] Transcribed By: [facility] 01/20/23 1316 Dictated By: Luciana Busby MD 01/20/23 1310 Signed By: <Electronically signed by MD Luciana Busby in OV> 01/20/23 1316 Narrative 03/09/2023 11:57 AM EST [facility] Main [place] [id number] Mammography Report Signed Patient: Myla Pollack MR#: [id number] : 1950 Acct:[id number] Age/Sex: 72 / F ADM Date: 01/20/23 Loc: XT Room: Type: [facility] RCR Attending Dr: Kacie Garay MD Copies to: MD Guille Degroot MD Hammad M Rashid, MD Lindsay L Damschroder, CHIDI Ordering Provider: Claire Duran APRN Date of [...] Procedure Note Radiology, Radiologist, MD - 03/09/2023 [facility] Main [place] [address] [place] [address] Mammography Report Signed Patient: Myla Pollack#: [id number] : 1950cct:[id number] Age/Sex: 72 / FADM Date: 01/20/23 Loc: XT Room:Type: [facility] Attending Dr: Kacie Garay MD Copies [...] Location: [facility] Transcribed By: ALBINO 01/20/23 1316 Dictated By: Luciana Busby MD 01/20/23 1310 Signed By: <Electronically signed by MD Luciana Busby in OV> 01/20/23 1316 Claire Duran APPLE CHECKER IMG BI PROCEDURES Final Result documented in this encounter Visit Diagnoses Not on filedocumented in this encounter Care Teams Investor Relationship Specialty Start Date End Date Guille Reynolds MD PCP - General Family Medicine 09/15/22 documented as of this encounter
--- OUTSIDE RECORDS SUMMARY | 2024-11-21 10:58 | XMS_ITS | Clinical Summary ---
Author Organization [facility] Address [address] [place] [address] Care Team Providers Care Electronics Tech Name Role Phone Guille Reynolds MD Primary Care Provider [phone] Allergies Active Allergy Reactions Criticality Noted Date [...] Take 1 capsule by mouth Daily Active cholecalciferol (D3-5) 5,000 Units tablet Take 5,000 Units by mouth in the morning. Active cycloSPORINE (Restasis) 0.05 % ophthalmic emulsion Administer 1 drop into both eyes every 12 (twelve) hours Active ergotamine-caff eine (Cafergot) 1-100 MG tablet Take 1 tablet by mouth 1 (one) time if needed Active magnesium 250 MG tablet Take 1 tablet by mouth 1 (one) time each day at the same time Active Multiple Vitamin (Multi-Vitamin) tablet Take 1 tablet by mouth Daily 2 Active pregabalin (Lyrica) 75 MG capsule Take 75 mg by mouth Daily Active Pyridoxine HCl (Vitamin B6) 100 MG tablet Take 1 tablet by mouth 1 (one) time each day at the same time Active warfarin (Coumadin) 5 MG tablet Take 5 mg by mouth Active Imitrex 100 MG tablet 100 mg every 12 (twelve) hours 3 Active Glucosamine 500 MG capsule Take 2 tablets by mouth 1 (one) time each day at the same time Active Cyanocobalamin (Vitamin B12) 1000 MCG tablet controlled-rele ase Take 1 tablet by mouth 1 (one) time each day at the same time Active Zinc 10 MG lozenge Active Breo Ellipta 100-25 MCG/ACT aerosol powder Inhale 1 puff Daily 4 Active fluticasone (Flonase) 50 MCG/ACT nasal sprayIndication s:Nasal polyp Administer 2 sprays into each nostril Daily Shake gently. Before first use, prime pump. After use, clean tip and replace cap. 48 g 3 5 07/25/19 26 Active montelukast (Singulair) 10 MG tabletIndicatio ns:Nasal polyp Take 1 tablet (10 mg) by mouth at bedtime 90 tablet 3 5 07/25/19 26 Active ipratropium (Atrovent) 0.06 % nasal sprayIndication s:Vasomotor rhinitis Administer 2 sprays into each nostril in the morning and 2 sprays in the evening and 2 sprays before bedtime. 45 mL 3 5 07/25/19 26 Active amoxicillin (Amoxil) 500 MG tabletIndicatio ns:History of total knee arthroplasty, left 4 tabs PO once 30-60 mins before procedure with food 4 tablet 3 5 Active Active Problems Problem Noted Date Diagnosed [...] left knee 3 09/14/2022 Pulmonary embolism 09/14/2022 3 Breast cancer screening 07/05/202209/02 Personal history of other en docrine, nutritional and metabolic disease 07/05/20222022 Anemia, unspecified 04/29/2022 09/15/19 23 Elevated blood pressure read ing without diagnosis of hypertension 04/29/2022 09/14/2022 Other abnormal glucose 04/29/202209/14 Palpitations 04/29/2022 09/14/2022 Mixed hyperlipidemia 04/28/2022 023 Other prison (current) drug therapy 03/22/2022 09/14/2022 Unspecified sprain of right wrist, initial encounter 03/22/2022 09/14/2022 Fall on same level from slip ping, tripping and stumbling without subsequent striking against object, initial encounter 03/22/20222022 Iron deficiency anemia, unspecified 01/21/2022 09/14/2022 Localized edema 09/03/2021 09/14/2022 Venous insufficiency (chronic) (peripheral) 08/27/2021 09/14/2022 Artificial knee joint present 02/14/2020 09/14/2022 Difficulty walking 02/14/2020 Arthritis of right knee 02/12/2020 0606/2022 Acute cystitis without hematuria 10/19/2019 09/14/2022 PCO [...] Vasculitis 02/10/2017 09/14/2022 Other chronic pain 10/18/2016 3 Osteoarthritis of knee 09/06/201609/14 Immunizations Immunization Administration Dates Next Due Pneumococcal [...] AM EST Office Visit [facility] [address] [place] [address] Jr. Leonardo Boudreaux, DO [address] [place], [place] [id number] Insurance * Guarantor: Myla Pollack Account Type Relation to Patient Date of Phone Billing Address Personal/Family Self 1950 [address] [place] [address] MEDICARE MEDICAL M[employer]UAL Care Teams Electronics Tech Relationship Specialty Start Date End Date Guille Reynolds MD PCP - General Family Medicine 09/15/22
--- OUTSIDE RECORDS SUMMARY | 2024-11-21 11:15 | XMS_ITS | CCD ---
Demographics Address [address] [place] [address] Home Phone Mobile Phone Preferred Language en Marital Status Mu-Ism Affiliation Unknown Race White Ethnic Group Not or Lati no Author Organization [facility] Care Team Providers Care Admissions Coordinator Name Role Phone Demarco Hess Unavailable [...] 3-1990 Kenyetta Reynolds MD Primary Care Provider [phone] Kenyetta Reynolds MD Primary Care Provider [id number] [...] Other Provider MD Kacie Garay Attending Provider [phone] MD Kenyetta Reynolds Primary Care Provider [phone] Kenyetta Reynolds MD Primary Care Provider [phone] Kenyetta Reynolds MD Primary Care Provider [phone] MD Christian Steiner Other Provider MD Kacie Garay Attending Provider MD Kenyetta Reynolds Primary Care Provider [phone] Christian Steiner Consulting Unavailable Kacie Garay Admitting Unavailable Kacie Garay Attending Unavailable Kenyetta Reynolds Primary Care Unavailable Kenyetta Reynolds MD Primary Care Provider [phone] Kenyetta Reynolds MD Primary Care Provider [phone] LYNSEY SALDANA Attending Unavailable KENYTETA REYNOLDS Referring Unavailable KENYETTA REYNOLDS Primary Care Unavailable SARAHI PIERSON Attending Unavailable SARAHI PIERSON Attending Unavailable KENYETTA REYNOLDS Referring Unavailable DINO GEORGE Attending Unavailable DINO GEORGE Referring Unavailable DINO GEORGE Attending Unavailable Nicho FERGUSON, Lizzie Little Attending Unavailable Nicho FERGUSON, Lizzie Little Attending Unavailable Nicho FERGUSON, Andlanette Little Attending Unavailable Nicho FERGUSON, Andrius Little Attending Unavailable CK GONZALEZ Attending Unavailable KENYETTA REYNOLDS Primary Care Unavailable ALESHA SCHULTE Attending Unavailable KENYETTA REYNOLDS Primary Care Unavailable Allergies Allergy Classification Reported Allergen(s) Allergy Type Date of Onset Reaction(s) Facility Sulfonamides (antibiotic) (1 source) Sulfonamides (Antibiotic) Drug Allergy 9 Unknown [facility] (20 sources) Sulfonamides (Antibiotic); Translations: [SULFA (SULFONAMIDE ANTIBIOTICS)] Drug Allergy 9 Unknown [facility] (1 source) Sulfonamides (Antibiotic) Drug allergy (disorder) 5 [facility] (12 sources) Sulfamethoxazole / Trimethoprim Drug Allergy 1 Unknown [facility] (1 source) Sulfonamides (Antibiotic) Drug allergy (disorder) 4 [facility] Medications Current Medications Medication Drug Class(es) [...] by mouth every six hours as needed beusrehnom-zsfvjyavroprv-nszwaofx 50-325 -40 MG tablet Take 1 tablet by mouth every 6 (six) hours if needed. 0 Active End: 01-17-2023 acetaminophen 325 mg-caffein e 40 mg-butalbital 50 mg (FIORICET) per tablet zqvlbqeanf-nvuxvkndvviqw-pgxugiqm 50 mg-325 mg-40 mg tablet 0 01/17/2023 [...] every 4 (four) hours if needed Active Comment on above: ProAir HFA 90 [...] by mouth in the morning. 0 Active baclofen 10 mg oral tablet (1 source) gamma-Aminobutyric Acid-ergic Agonist Start: 08-01-2024 baclofen 10 mg tablet 08/01/2024 Active benoxinate hydrochloride 4 mg/ml / fluorescein sodium 3 mg/ml ophthalmic solution (6 sources) Diagnostic Dye Start: 10-22-2024 End: 10-22-2024 fluorescein-benoxi jarret 0.3-0.4 % 1 drop (FLURESS) Start: 10-22-2024 End: 10-22-2024 1 drop, BOTH EYES, DIRECT ED, Starting on Tue10/22/24 at 1100, Until Tue10/22/24 at 2259, Administer for applanation tonometry. In the event of a Fluress shortage, administer [place]chola-Fluor 1 drop into both eyes as directed for applanation tonometry Start: 09-05-2023 End: 09-05-2023 fluorescein-benoxinate 0.3-0 .4 % 1 Drop (FLURESS) Start: 07-27-2023 End: 07-27-2023 fluorescein-benoxinate 0.3-0 .4 % 1 Drop (FLURESS) Start: 01-17-2023 End: 01-17-2023 fluorescein-benoxinate 0.3-0 .4 % drop 1 Drop Start: 07-05-2022 End: 07-05-2022 fluorescein-benoxinate 0.25- 0.4 % 1 Drop (FLURESS) biotin 1 mg oral tablet (20 sources) Start: 02-28-2017 take 1 mg by mouth once daily Biotin Active 1 MG PO Daily February 28, 2017 1:00am biotin 1 mg cap biotin 1 tab daily Active Comment on above: biotin 1 tab daily 60 actuat budesonide 0.08 mg/actuat / formoterol fumarate 0.0045 mg/actuat metered dose inhaler (18 sources) Corticosteroid, beta2-Adrenergic Agonist Start: 11-01-2019 take [...] Oral Daily July 19, 2018 10:42am 07-19-2018 [facility] ([id number]) 07/19/2018 Active take 1 tablet by mouth in the mo rning cholecalciferol (D3-5) 5,000 Units tablet Take 5,000 Units by mouth in the morning. Active Comment on above: Cholecalciferol Chol ecalciferol (Vitamin D3) Active 1000 UNIT Oral Daily July 19, 2018 10:42am 07-19-2018 [facility] ([id number]) CHONDROITIN SULFATE A ORAL (17 sources) take 1 tablet by mouth once [...] ophthalmic suspension (20 sources) Calcineurin Inhibitor Immunosuppressant cycloSPORINE (RESTAS IS) 0.05 % ophthalmic emulsion Restasis 0.05 % eye drops in a dropperette Active take 1 drop(s) into the eye(s) every twelve hours cycloSPORINE (Restasis) 0.05 % ophthalmi c emulsion Administer 1 drop into both eyes every 12 (twelve) hours Active Comment on above: Restasis 0.05 % eye drops in a dropperette fluticasone propionate 0.05 mg/actuat metered dose nasal spray (20 sources) Corticosteroid Start: 4 End: 6 take 2 spray(s) nasal route once daily [...] / vilanterol 0.025 mg/actuat dry powder inhaler (11 sources) Corticosteroid, beta2-Adrenergic Agonist Start: 04-04-2024 BREO ELLIPTA 100-25 mcg/dose inhaler 04/04/2024 Active Start: 07-28-2023 take 1 puff(s) by in halation once daily Breo Ellipta 100-25 MCG/ACT aerosol powder Inhale 1 puff Daily 07/28/2023 Active Fluticasone Furoate-Vilanterol (1 source) Start: 01-30-2024 Fluticasone Furoate-Vilanterol (Breo Ellipta) 50-25 mcg/dose blister with device Active INHALATION January 30, 2024 12:00am folic acid 1 mg / polysaccharide iron complex 150 mg / vitamin b12 0.025 mg oral capsule (2 sources) Vitamin B12 Start: 10-16-2019 take 1 capsule by mouth in the morning POLY-IRON 150 FORTE 150-25-1 mg-mcg-mg capsule Take 1 capsule by mouth in the morning. 10/16/2019 Active furosemide 40 mg oral tablet (4 sources) Loop Diuretic End: 07-05-2022 take 1 tablet by mouth once daily furosemide (LASIX) 40 mg tablet Take 1 tablet (40 mg total) by mouth daily. Active Comment on above: furosemide 40 mg tab let gluc kong/chondro kong A/vit C/Mn (GLUCOSAMINE 1500 COMPLEX ORAL) (8 sources) gluc kong/chondro kong A/vit C/Mn (GLUCOSAMINE [...] bromide 0.042 mg/actuat metered dose nasal spray (4 sources) Anticholinergic Start: 07-25-19 take 2 spray(s) nasal route at bedtime ipratropium bromide (ATROVENT) 42 mcg (0.06 %) nasal spray ADMINISTER 2 SPRAYS INTO EACH NOSTRIL IN THE MORNING, IN THE EVENING, AND BEFORE BEDTIME 07/24/2024 Active Start: 07-24-2024 End: 07-24-2025 take 2 spray(s) nasal route in the morning, then take 2 spray(s) nasal route in the evening, then take 2 spray(s) nasal route at bedtime ipratropium (Atrovent) 0.06 % nasal spray Indications: Vasomotor rhinitis Administer 2 sprays into each nostril in the morning and 2 sprays in the evening and 2 sprays before bedtime. 45 mL 3 07/24/2024 07/24/2025 Active latanoprost 0.05 mg/ml ophthalmic solution (3 sources) Prostaglandin Analog Start: 10-22-2024 take 1 drop(s) into the eye(s) once daily at bedtime latanoprost (XALATAN) 0.005 % ophthalmic solution Use 1 drop in both eyes daily at bedtime. 2.5 mL 11 10/22/2024 Active Start: 02-22-2019 End: 07-05-2022 take 1 drop(s) into the eye(s) once daily at bedtime latanoprost (XALATAN) 0.005 % ophthalmic solution Use 1 Drop in both eyes daily at bedtime. 1 Bottle 0 02/22/2019 07/05/2022 Discontinued Comment on above: Use 1 Drop in both e yes daily at bedtime. linseed oil 1000 mg oral capsule (11 sources) Start: 03-25-2017 Flaxseed Oil 1,000 mg cap Linseed Oil Flaxseed Oil Active 1000 MG Oral Twice daily March 25, 2017 10:57am 03-25-2017 [facility] ([id number]) 03/25/2017 Active Comment on above: Linseed Oil Flaxseed Oil Active 1000 MG Oral Twice daily March 25, 2017 10:57am 03-25-2017 [facility] ([id number]) Magnesium (20 sources) take 1 tablet by [...] HR. magnesium oxide 250 mg oral tablet (11 sources) Start: 7 Magnesium Oxide 250 mg magnesium tab Magnesium Oxide Magnesium Oxide Active 250 MG Oral Daily January 05, 2017 3:53pm 01-05-2017 [facility] ([id number]) 01/05/2017 Active Comment on above: Magnesium Oxide Magn esium Oxide Active 250 MG Oral Daily January 05, 2017 3:53pm 01-05-2017 [facility] ([id number]) montelukast 10 mg oral tablet (20 sources) Leukotriene Receptor Antagonist Start: 7 End: 6 take 1 tablet by mouth once daily in the evening montelukast (SINGULAIR) 10 mg tablet TAKE 1 TABLET BY MOUTH EVERY DAY IN THE EVENING 2 11/25/2018 Active Comment on above: TAKE 1 TABLET BY TIERA TH EVERY DAY IN THE EVENING MULTI-VITAMIN ORAL (8 sources) take 1 tablet by mouth once [...] 21, 2022 12:00am multivitamin (MULTIPLE VITAMINS) tablet (7 sources) Start: 2 multivitamin (MULTIPLE VITAMINS) tablet [...] 12:00am phenylephrine hydrochloride 25 mg/ml ophthalmic solution (4 sources) alpha-1 Adrenergic Agonist Start: 10-22-2024 End: 10-22-2024 PHENYLephrine 2.5 % 1 drop (AK-DILATE, KRYSTYNA-SYNEPHRINE) Start: 10-22-2024 End: 10-22-2024 1 drop, BOTH EYES, DIRECT ED, Starting on Tue10/22/24 at 1100, Until Tue10/22/24 at 2259, Administer for dilation PROTECT FROM LIGHT Start: 07-27-2023 End: 07-27-2023 PHENYLephrine 2.5 % 1 Drop ( AK-DILATE, KRYSTYNA-SYNEPHRINE) Start: 07-05-2022 End: 07-05-2022 PHENYLephrine 2.5 [...] solution (1 source) Local Anesthetic Start: 07-27-19 24 End: 07-27-19 proparacaine 0.5 % 1 Drop [...] mg tablet SUMAtriptan 100 mg oral tablet (13 sources) Serotonin-1b and Serotonin-1d Receptor Agonist Start: take 1 tablet by mouth twice daily as needed, then take 1 tablet by mouth every two hours as needed SUMAtriptan (IMITREX) 100 mg tablet TAKE 1 TABLET BY MOUTH 2 TIMES A DAY NEEDED, space doses at least 2 hours apart 10/11/2024 Active Start: 07-12-2021 take 1 tablet by tiera th every twelve hours Imitrex 100 MG tablet 100 mg every 12 (twelve) hours 12/20/2022 Active tropicamide 10 mg/ml ophthalmic solution (4 sources) Anticholinergic Start: 10-22-2024 End: 10-22-2024 tropicamide 1 % 1 drop (MYDRIACYL) Start: 10-22-2024 End: 10-22-2024 1 drop, BOTH EYES, DIRECT ED, Starting on Tue10/22/24 at 1100, Until Tue10/22/24 at 2259, Administer for dilation Start: 07-27-2023 End: 07-27-2023 tropicamide 1 % 1 Drop (MYDR IACYL) Start: 07-05-2022 End: 07-05-2022 tropicamide 1 % 1 Drop (MYDR IACYL) Vitamin B Complex (10 sources) take 1 tablet by tiera th [...] tablet (20 sources) Vitamin K Antagonist Start: 7 Warfarin [...] Tablet Discontinued 1 TAB PO Twice daily January 12, 2017 12:00am March 16, 2017 3:02pm take 10 mg by mouth twice daily for 7 days; then 5 mg twice daily 5 ml bupivacaine hydrochloride 5 mg/ml injection [...] 02, 2018 4:50pm January 21, 2022 10:03am 1 ml methylPREDNISolone acetate 40 mg/ml injection [...] 60 actuat tiotropium 0.0025 mg/actuat inhalation spray (18 sources) Anticholinergic Start: 01-05-2017 End: 01-30-2024 take 1 puff(s) by inhalation every twenty-four hours Tiotropium [place] (Spiriva Respimat) 2.5 mcg/actuation Mist Discontinued 2 PUFF INHALATION Q24H January 05, 2017 12:00am January 30, 2024 10:18am tiotropium (SPIR EUNICE RESPIMAT) 2.5 mcg/actuation inhaler Spiriva Respimat 2.5 mcg/actuation solution for inhalation Active tiotropium bromi de 2.5 mcg/actuation mist Inhale 2 (two) times a day. Active End: 12-19-2023 take 2 puff(s) by [...] (acquired), right foot] Onset: 5 07-24-2024 Chronic Cancer of breast (20 sources) Malignant [...] 3 02-27-2019 Chronic Disorders of lipid metabolism (20 sources) Mixed [...] skilled nursing (current) use of anticoagulants; Translations: [HALF-WAY CURRNT USE ANTICOAGULANTS] Onset: 3 Episodic Other [...] Vasomotor rhinitis; Translations: [Vasomotor rhinitis] 07-24-2024 Chronic Peripheral and visceral atherosclerosis (19 sources) Peripheral vascular disease; Translations: [Peripheral vascular [...] Resolved: 3 02-03-2017 Episodic Residual codes; unclassified (10 sources) Device in situ; Translations: [Presence of functional implant, unspecified] Onset: 08-18-2023 Chronic Respiratory failure; insufficiency; arrest (adult) (1 source) Respiratory failure; insufficiency; arrest (adult) Onset: Spondylosis; intervertebral disc disorders; other back problems (2 sources) Neck pain; Translations: [Cervicalgia] 04-09-2024 Episodic Unclassified (1 source) Unknown / UNK(Unknown) Onset: 7 Past or Other Problems Problem Classification Problem Date Documented Da te Episodic/Chronic Acquired foot deformities (10 sources) Acquired deformity of toe; Translations: [Other deformities of toe(s) (acquired), left foot] Onset: 08-18-2023 08-18-2023 Episodic Blindness and vision defects (20 sources) Bilateral hyperopia of eyes; Translations: [Hypermetropia, bilateral] Onset: 02-22-2019 Resolved: 09-14-2022 02-22-2019 Episodic Cancer of breast (10 sources) History of malignant neoplasm of breast; Translations: [Personal history of malignant neoplasm of breast] Onset: 08-18-2023 08-18-2023 Episodic Cardiac dysrhythmias (20 sources) Palpitations; Translations: [Palpitations] Onset: 04-29-2022 Resolved: 09-14-2022 07-05-2022 Episodic Deficiency and other anemia (19 sources) Anemia; Translations: [Anemia, unspecified] Onset: 04-29-2022 Resolved: 09-14-2022 07-05-2022 Episodic Deficiency and other anemia (19 sources) Iron deficiency anemia; Translations: [Iron deficiency anemia, unspecified] Onset: 01-21-2022 Resolved: 09-14-2022 07-05-2022 Episodic Deficiency and other anemia (1 source) Anemia, unspecified; Translations: [ANEMIA UNSPECIFIED] Onset: 04-29-2022 Episodic Diabetes mellitus without complication (20 sources) Abnormal glucose level; Translations: [Other abnormal glucose] Onset: 04-29-2022 Resolved: 09-14-2022 07-05-2022 Episodic E Codes: Fall (20 sources) Fall on same level from slipping, tripping or stumbling ; Translations: [Fall on same level from slipping, tripping and stumbling without subsequent striking against object, initial encounter] Onset: 03-22-2022 Resolved: 09-14-2022 07-05-2022 Episodic E Codes: Natural/environment (7 sources) Exposure to other specified factors, initial encounter; Translations: [Unspecified accident] Onset: 01-28-2017 07-05-2022 Episodic Mood disorders (2 sources) Mood disorders Onset: [...] 12-05-2018 Resolved: 09-14-2022 01-22-2019 Episodic Other aftercare (19 sources) Long-term current use of anticoagulant; Translations: [skilled nursing (current) use of anticoagulants] Onset: 02-02-2019 Resolved: 09-14-2022 07-05-2022 Episodic Other aftercare (20 sources) Long-term current use of drug therapy; Translations: [Other correction (current) drug therapy] Onset: 03-22-2022 Resolved: 09-14-2022 07-05-2022 Episodic Other aftercare (1 source) Other petroleum terminal plant operator (current) drug therapy; Translations: [OTH INSTRUMENTATION AND CONTROL TECHNICIAN CURRENT DRUG THERAPY] Onset: 03-22-2022 Episodic Other bone disease and musculoskeletal deformities (10 sources) Disorder of bone; Translations: [Other specified disorders of bone, ankle and foot] Onset: 08-18-2023 Resolved: 08-18-2023 08-18-2023 Episodic Other circulatory disease (19 sources) Elevated blood-pressure reading without diagnosis of [...] 09-14-2022 09-14-2022 Chronic Other connective tissue disease (7 sources) Pain in left foot; Translations: [Pain in left foot] Onset: 11-07-2018 07-05-2022 Episodic Other connective tissue disease (7 sources) Pain in right foot; Translations: [Pain in right foot] Onset: 02-07-2019 07-05-2022 Episodic Other diseases of veins and lymphatics (20 sources) Peripheral venous insufficiency; Translations: [Venous insufficiency (chronic) (peripheral)] Onset: 08-27-2021 Resolved: 09-14-2022 07-05-2022 Episodic Other ear and sense organ disorders (12 sources) Impacted cerumen of bilateral ears; Translations: [Impacted cerumen, bilateral] Onset: 09-15-2022 09-15-2022 Episodic Other eye disorders (20 sources) Epithelial basement membrane dystrophy; 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 [...] 09-14-2022 09-14-2022 Chronic Other non-traumatic joint disorders (19 sources) Impingement of right ankle joint; Translations: [Other specified joint disorders, right ankle and foot] Onset: 01-03-2019 Resolved: 09-14-2022 07-05-2022 Episodic Other non-traumatic joint disorders (8 sources) Pain of right wrist; Translations: [Pain in right wrist] Onset: 03-19-2022 07-05-2022 Episodic Other non-traumatic joint disorders (2 sources) Pain in right wrist; Translations: [PAIN IN RIGHT WRIST] Onset: 03-22-2022 Episodic Other non-traumatic joint disorders (12 sources) Pain in right knee; Translations: [Pain in joint, lower leg] Onset: 01-08-2018 Resolved: 09-14-2022 09-14-2022 Episodic Other nutritional; endocrine; and metabolic disorders (19 sources) H/O: Disorder; Translations: [Personal history of [...] 08-10-2018 09-14-2022 Episodic Phlebitis; thrombophlebitis and thromboembolism (20 sources) Embolism from thrombosis of vein of lower extremity ; Translations: [Acute embolism and thrombosis of unspecified deep veins of unspecified lower extremity] Onset: 02-02-2019 Resolved: 09-14-2022 07-05-2022 Episodic Residual codes; unclassified (19 sources) Acquired absence of breast; 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] Onset: 01-03-2019 Resolved: 09-14-2022 07-05-2022 Episodic Residual codes; unclassified (19 sources) Localized edema; Translations: [Localized edema] Onset: 09-03-2021 Resolved: 09-14-2022 07-05-2022 Episodic Sprains and strains (20 sources) Sprain of right wrist; Translations: [Unspecified sprain of right wrist, initial encounter] Onset: 03-22-2022 Resolved: 09-14-2022 07-05-2022 Episodic Superficial injury; contusion (8 sources) Right wrist contusion; Translations: [Contusion of right wrist, initial encounter] Onset: 03-22-2022 07-05-2022 Episodic Unclassified (1 source) HEALTH MAINTENANCE [id number] Z00.00 Onset: 01-28-2017 Urinary tract infections (12 sources) Acute cystitis; Translations: [Acute cystitis without hematuria] Onset: 10-19-2019 Resolved: 09-14-2022 09-14-2022 Episodic Results Test Name Value Interpretation Reference Range Facility OCT OPTIC NERVE CIRRUS OU (B OTH EYES)on 10-22-2024 [facility] Radiology Study observation (narrative) [facility] VISUAL FIELD 24-2 OU (BOTH E YES)on 10-22-2024 [facility] Radiology Study observation (narrative) [facility] MM screening mammo LT w/CADo n 01-23-2024 MM screening mammo LT w/CAD [facility] [place] [address] Mammography Report Signed Patient: Myla Pollack MR#: [id number] : 1950 Acct:[id number] Age/Sex: 73 / F ADM Date: 01/23/24 Loc: XT Room: Type: [facility] RCR Attending Dr: Kacie Garay [...] José Sandoval M.D.01/23/2024 10:09 AM Dictation Location: [facility] Transcribed By: ALBINO 01/23/24 1009 Dictated By: José Sandoval DO 01/23/24 1008 Signed By: 01/23/24 1009 Normal [facility] No Panel Informationon 12-18 BETO [...] in the usual sterile fashion. [facility] LASER TRABECULOPLASTY OD (RI GHT EYE)on 09-05-2023 [facility] OCT OPTIC NERVE CIRRUS OU (B OTH EYES)on 07-27-2023 [facility] Radiology Study observation (narrative) [facility] VISUAL FIELD 24-2 OU (BOTH E YES)on 07-27-2023 [facility] Radiology Study observation (narrative) [facility] MRI WRIST RT WO CONon 2022 MRI [...] DINO GREGORY Date: 2022-06-20 13:14 Normal [facility] INSULINon 04-29-2022 Insulin 15.6 uIU/mL Normal 2.6-24.9 [facility] Comment on above: Performed By: #### I NSULIN #### [facility] [address] [address] [address] Marizol Macedo CBC AUTO DIFFon 04-28-2022 BASO # 0.0 103/ul Normal 0.0-0.1 [facility] Comment on above: Performed By: #### C BC #### [facility] [address] [address] [address] Marizol Macedo Basophils/100 WBC (Bld) 0.3 % Normal 0.2-2.0 [facility] Comment on above: Performed By: #### C BC #### [facility] [address] [place], [place] [address] Dr. Marizol Macedo EO # 0.1 103/ul Normal 0.0-0.7 [facility] Comment on above: Performed By: #### C BC #### [facility] [address] [place] [address] Dr. Marizol Macedo Eosinophils/100 WBC (Bld) 1.0 % Normal 0.9-7.0 [facility] Comment on above: Performed By: #### C BC #### [facility] [address] [place] [address] Dr. Marizol Macedo Erythrocyte distribution width (RBC) [Ratio] 12.6 % Normal 11.0-15.0 [facility] Comment on above: Performed By: #### C BC #### [facility] [address] [place] [address] Dr. Marizol Macedo Hematocrit (Bld) [Volume fraction] 43.4 % Normal 36.0-48.0 [facility] Comment on above: Performed By: #### C BC #### [facility] [address] [place] [address] Dr. Marizol Macedo Hemoglobin (Bld) [Mass/Vol] 14.1 g/dL Normal 12.0-16.0 [facility] Comment on above: Performed By: #### C BC #### [facility] [address] [place] [address] Dr. Marizol Macedo IG # 0.02 10e3/ul Normal 0.00-0.03 [facility] Comment on above: Performed By: #### C BC #### [facility] [address] [place] [address] Dr. Marizol Macedo IG % 0.3 % Normal 0.0-0.5 [facility] Comment on above: Performed By: #### C BC #### [facility] [address] [place] [address] Dr. Marizol Macedo LYMPH # 2.4 103/ul Normal 1.2-3.8 [facility] Comment on above: Performed By: #### C BC #### [facility] [address] [place] [address] Dr. Marizol Macedo Lymphocytes/100 WBC (Bld) 30.9 % Normal 20.5-60.0 [facility] Comment on above: Performed By: #### C BC #### [facility] [address] [place] [address] Dr. Marizol Macedo MANUAL DIFF REQ NO Normal [facility] Comment on above: Performed By: #### C BC #### [facility] [address] [place] [address] Dr. Marizol Macedo MCH (RBC) [Entitic mass] 30.7 pg Normal 26.7-34.0 [facility] Comment on above: Performed By: #### C BC #### [facility] [address] [place] [address] Dr. Marizol Macedo MCHC (RBC) [Mass/Vol] 32.5 g/dL Normal 29.9-35.2 [facility] Comment on above: Performed By: #### C BC #### [facility] [address] [place] [address] Dr. Marizol Macedo MCV (RBC) [Entitic vol] 94.3 fL Normal 81.0-99.0 [facility] Comment on above: Performed By: #### C BC #### [facility] [address] [place] [address] Dr. Marizol Macedo MONO # 0.4 103/ul Normal 0.3-0.8 [facility] Comment on above: Performed By: #### C BC #### [facility] [address] [place] [address] Dr. Marizol Macedo Monocytes/100 WBC (Bld) 5.4 % Normal 1.7-12.0 [facility] Comment on above: Performed By: #### C BC #### [facility] [address] [place] [address] Dr. Marizol Macedo NEUT # 4.9 103/ul Normal 1.4-6.5 [facility] Comment on above: Performed By: #### C BC #### [facility] [address] [place] [address] Dr. Marizol Macedo Neutrophils/100 WBC (Bld) 62.1 % Normal 43.0-75.0 [facility] Comment on above: Performed By: #### C BC #### [facility] [address] [address] [address] Marizol Macedo Platelet mean volume (Bld) [Entitic vol] 10.2 fL Normal 9.5-13.5 [facility] Comment on above: Performed By: #### C BC #### [facility] [address] [address] [address] Marizol Macedo PLT 279 103/ul Normal 150-450 [facility] Comment on above: Performed By: #### C BC #### [facility] [address] [address] [address] Marizol Macedo RBC 4.60 106/ul Normal 4.20-5.40 [facility] Comment on above: Performed By: #### C BC #### [facility] [address] [place] [address] Dr. Marizol Macedo WBC 7.8 103/ul Normal 4.0-11.0 [facility] Comment on above: Performed By: #### C BC #### [facility] [address] [place] [address] Dr. Marizol Macedo FREE THYROXINE INDEX T7on FTI 3.50 Normal 1.30-4.50 [facility] Comment on above: Performed By: #### L IPID, T7, CMP, TSH #### [facility] [address] [place] [address] Dr. Marizol Macedo T3U 35.0 % Normal 30.0-39.0 [facility] Comment on above: Performed By: #### L IPID, T7, CMP, TSH #### [facility] [address] [place] [address] Dr. Marizol Macedo T4 [Mass/Vol] 10.00 ug/dL Normal 4.80-13.90 [facility] Comment on above: Performed By: #### L IPID, T7, CMP, TSH #### [facility] [address] [place] [address] Dr. Marizol Macdeo GLYCOHEMOGLOBIN A1Con 2022 ADA RECOMMENDATION SEE BELOW Normal [facility] Comment on above: Result Comment: ADA RECOMMENDED LIMIT 4.0 - 6.0 ADA THERAPEUTIC TARGET < 7.0 ACTION SUGGESTED > 7.0 Performed By: #### A 1C #### [facility] [address] [place] [address] Dr. Marizol Macedo Glucose [Mass/Vol] 114 mg/dL Normal [facility] Comment on above: Performed By: #### A 1C #### [facility] [address] [address] [address] Marizol Macedo HbA1c (Bld) [Mass fraction] 5.6 % Normal 4.5-6.2 [facility] Comment on above: Performed By: #### A 1C #### [facility] [address] [place] [address] Dr. Marizol Macedo IRONon 04-28-2022 Iron [Mass/Vol] 136.0 ug/dL Normal 50.0-170.0 [facility] Comment on above: Performed By: #### I CECELIA #### [facility] [address] [place] [address] Dr. Marizol Macedo LIPID PROFILEon 04-28-2022 CHOL-HDL RATIO NORM SEE BELOW Normal [facility] Comment on above: Result Comment: 3.3 - 4.4 LOW RISK 4.4 - 7.1 AVERAGE RISK 7.1 - 11.0 MODERATE RISK >11.0 HIGH RISK Performed By: #### L IPID, T7, CMP, TSH #### [facility] [address] [place] [address] Dr. Marizol Macedo Cholesterol [Mass/Vol] 134 mg/dL Normal <=200 [facility] Comment on above: Performed By: #### L IPID, T7, CMP, TSH #### [facility] [address] [address] [address] Marizol Macedo Cholesterol in HDL [Mass/Vol] 69 mg/dL Critically high 40-60 [facility] Comment on above: Performed By: #### L IPID, T7, CMP, TSH #### [facility] [address] [address] [address] Marizol Macedo Cholesterol in LDL [Mass/Vol] 46.6 mg/dL Normal [facility] Comment on above: Performed By: #### L IPID, T7, CMP, TSH #### [facility] [address] [address] [address] Marizol Macedo Cholesterol.total/Ch olesterol in HDL [Mass ratio] 1.9 {ratio} Normal [facility] Comment on above: Performed By: #### L IPID, T7, CMP, TSH #### [facility] [address] [address] [address] Marizol Macedo HDL NORMAL > or = 60 mg/dl - LO W CARDIOVASCULAR RISK <40 mg/dl - HIGH CARDIOVASCULAR RISK Normal [facility] Comment on above: Performed By: #### L IPID, T7, CMP, TSH #### [facility] [address] [address] [address] Marizol Macedo LDL CALC NORMAL SEE BELOW Normal [facility] Comment on above: Result Comment: <100 mg/dl OPTIMAL 100 - 129 mg/dl NEAR OR ABOVE OPTIMAL 130 - 159 mg/dl BORDERLINE HIGH 160 - 189 mg/dl HIGH >190 mg/dl VERY HIGH Performed By: #### L IPID, T7, CMP, TSH #### [facility] [address] [address] [address] Marizol Macedo Triglyceride [Mass/Vol] 92 mg/dL Normal <=150 [facility] Comment on above: Performed By: #### L IPID, T7, CMP, TSH #### [facility] [address] [address] [address] Marizol Macedo VLDL CALC 18.4 mg/dL Normal [facility] Comment on above: Performed By: #### L IPID, T7, CMP, TSH #### [facility] [address] [address] [address] Marizol Macedo PROF 14(COMP METB)on 023 Albumin [Mass/Vol] 3.9 g/dL Normal 3.4-5.0 [facility] Comment on above: Performed By: #### L IPID, T7, CMP, TSH #### [facility] [address] [address] [address] Marizol Macedo Albumin/Globulin [Mass ratio] 1.1 {ratio} Normal [facility] Comment on above: Performed By: #### L IPID, T7, CMP, TSH #### [facility] [address] [place] [address] Dr. Marizol Macedo ALP [Catalytic activity/Vol] 97 U/L Normal 46-116 [facility] Comment on above: Performed By: #### L IPID, T7, CMP, TSH #### [facility] [address] [place] [address] Dr. Marizol Macedo ALT [Catalytic activity/Vol] 57 U/L Normal 14-59 [facility] Comment on above: Performed By: #### L IPID, T7, CMP, TSH #### [facility] [address] [place] [address] Dr. Marizol Macedo Anion gap [Moles/Vol] 11.9 mmol/L Normal [facility] Comment on above: Performed By: #### L IPID, T7, CMP, TSH #### [facility] [address] [place] [address] Dr. Marizol Macedo AST [Catalytic activity/Vol] 35 U/L Normal 15-37 [facility] Comment on above: Performed By: #### L IPID, T7, CMP, TSH #### [facility] [address] [place] [address] Dr. Marizol Macedo Bilirubin [Mass/Vol] 0.6 mg/dL Normal 0.2-1.0 [facility] Comment on above: Performed By: #### L IPID, T7, CMP, TSH #### [facility] [address] [place] [address] Dr. Marizol Macedo Calcium [Mass/Vol] 9.8 mg/dL Normal 8.5-10.1 [facility] Comment on above: Performed By: #### L IPID, T7, CMP, TSH #### [facility] [address] [place] [address] Dr. Marizol Macedo Chloride [Moles/Vol] 103 mmol/L Normal 98-107 [facility] Comment on above: Performed By: #### L IPID, T7, CMP, TSH #### [facility] [address] [address] [address] Marizol Macedo CO2 [Moles/Vol] 28.0 mmol/L Normal 21.0-32.0 [facility] Comment on above: Performed By: #### L IPID, T7, CMP, TSH #### [facility] [address] [address] [address] Marizol Macedo Creatinine [Mass/Vol] 0.75 mg/dL Normal 0.55-1.02 [facility] Comment on above: Performed By: #### L IPID, T7, CMP, TSH #### [facility] [address] [address] [address] Marizol Macedo EGFR-AF FIJIAN >60 Normal >=60 [facility] Comment on above: Performed By: #### L IPID, T7, CMP, TSH #### [facility] [address] [address] [address] Marizol Macedo EGFR-NON AF FIJIAN >60 Normal >=60 [facility] Comment on above: Performed By: #### L IPID, T7, CMP, TSH #### [facility] [address] [address] [address] Marizol Macedo Globulin (S) [Mass/Vol] 3.5 g/dL Normal [facility] Comment on above: Performed By: #### L IPID, T7, CMP, TSH #### [facility] [address] [address] [address] Marizol Macedo Glucose [Mass/Vol] 91 mg/dL Normal 74-106 [facility] Comment on above: Performed By: #### L IPID, T7, CMP, TSH #### [facility] [address] [address] [address] Marizol Macedo Potassium [Moles/Vol] 3.9 mmol/L Normal 3.5-5.1 [facility] Comment on above: Performed By: #### L IPID, T7, CMP, TSH #### [facility] [address] [address] [address] Marizol Macedo Protein [Mass/Vol] 7.4 g/dL Normal 6.4-8.2 [facility] Comment on above: Performed By: #### L IPID, T7, CMP, TSH #### [facility] [address] [place] [address] Dr. Marizol Macedo Sodium [Moles/Vol] 139 mmol/L Normal 136-145 [facility] Comment on above: Performed By: #### L IPID, T7, CMP, TSH #### [facility] [address] [place] [address] Dr. Marizol Macedo Urea nitrogen [Mass/Vol] 13.0 mg/dL Normal 7.0-18.0 [facility] Comment on above: Performed By: #### L IPID, T7, CMP, TSH #### [facility] [address] [place] [address] Dr. Mraizol Macedo Urea nitrogen/Creatinine [Mass ratio] 17.3 mg/mg Normal [facility] Comment on above: Performed By: #### L IPID, T7, CMP, TSH #### [facility] [address] [place] [address] Dr. Marizol Macedo TSHon 04-28-2022 TSH 1.306 uIU/mL Normal 0.358-3.740 [facility] Comment on above: Performed By: #### L IPID, T7, CMP, TSH #### [facility] [address] [place] [address] Dr. Marizol Macedo CBC W/DIFFon 09-28-2017 ABS BASOPHILS 0.0 10*3/uL Normal 0.0-0.2 [facility] Comment on above: Performed By: #### 4 1802, 59536 ####[facility] [facility].[address] ABS IMM GRANS 0.0 10*3/uL Normal 0.0-0.2 [facility] Comment on above: Performed By: #### 4 1802, 17929 ####[facility] [facility].[address] ABS NEUTROPHILS 2.8 10*3/uL Normal 1.6-7.6 [facility] Comment on above: Performed By: #### 4 180, 13863 ####[facility] [facility].[address] Basophils Auto #/vol (Bld) 0.5 % Normal 0.0-1.0 [facility] Comment on above: Performed By: #### 4 180, 05549 ####[facility] [facility].[address] Eosinophils Auto #/vol (Bld) 0.1 10*3/uL Normal 0.0-0.5 [facility] Comment on above: Performed By: #### 4 1801, 18861 ####[address] [address] [facility].[address] Eosinophils/100 WBC Auto (Bld) 2.3 % Normal 0.0-6.0 [facility] Comment on above: Performed By: #### 4 1801, 21153 ####[address] Erythrocyte distribution width Auto Ratio (RBC) 12.9 % Normal 11.5-15.0 [facility] Comment on above: Performed By: #### 4 180, 10821 ####[address] [facility].[address] Hematocrit Auto Volume Fraction (Bld) 42.9 % Normal 36.0-45.0 [facility] Comment on above: Performed By: #### 4 180, 23006 ####[address] [facility].[address] Hemoglobin mass conc (Bld) 14.1 g/dL Normal 12.0-15.0 [facility] Comment on above: Performed By: #### 4 180, 52165 ####[address] [place] [address], [place] IMMATURE GRANS 0.3 % Normal 0.0-1.0 [facility] Comment on above: Performed By: #### 4 180, 36463 ####[address] Lymphocytes Auto #/vol (Bld) 2.4 10*3/uL Normal 1.2-4.0 [facility] Comment on above: Performed By: #### 4 180, 25039 ####[address] Lymphocytes/100 WBC Auto (Bld) 39.5 % Normal 20.0-45.0 [facility] Comment on above: Performed By: #### 4 1801, 51339 ####[address] MCH Auto Entitic mass (RBC) 30.3 pg Normal 27.0-33.0 [facility] Comment on above: Performed By: #### 4 1801, 91615 ####[address] MCHC Auto mass conc (RBC) 32.9 g/dL Normal 32.0-35.0 [facility] Comment on above: Performed By: #### 4 1801, 05500 ####[address] MCV Auto Entitic volume (RBC) 92.3 fL Normal 82.0-98.0 [facility] Comment on above: Performed By: #### 4 180, 43261 ####[address] Monocytes Auto #/vol (Bld) 0.7 10*3/uL Normal 0.1-1.0 [facility] Comment on above: Performed By: #### 4 180, 34358 ####[facility] [place] [address], [facility] MONOS 11.2 % Normal 5.0-12.0 [facility] Comment on above: Performed By: #### 4 180, 24076 ####[facility] [facility] [address], [facility] Neutrophils/100 WBC Auto (Bld) 46.2 % Normal 40.0-72.0 [facility] Comment on above: Performed By: #### 4 1801, 41537 ####[facility] [facility].[address] Nucleated RBC/100 WBC Ratio (Bld) 0 % Normal 0-0 [facility] Comment on above: Performed By: #### 4 1801, 01772 ####[facility] [facility].[address] PLAT CNT 263 10*3/uL Normal 150-400 [facility] Comment on above: Performed By: #### 4 1801, 57346 ####[facility] [facility] [place] [address], [facility] RBC Auto #/vol (Bld) 4.65 10*6/uL Normal 3.80-5.00 [facility] Comment on above: Performed By: #### 4 1801, 11525 ####[facility] [facility].[address] WBC Auto #/vol (Bld) 6.07 10*3/uL Normal 4.00-10.60 [facility] Comment on above: Performed By: #### 4 1801, 61988 ####[facility] [place] [address].[address] COMP METABOLIC PANELon 09-28 Albumin mass conc 4.1 g/dL Normal 3.5-5.7 [facility] Comment on above: Performed By: #### 4 180, 65298 ####[facility] [place] [address], [facility] ALKALINE PHOSPH 73 IU/L Normal 34-104 [facility] Comment on above: Performed By: #### 4 180, 37721 ####[facility] [place] [address], [facility] ALT enzyme act/vol 54 U/L High 7-52 [facility] Comment on above: Performed By: #### 4 180, 50695 ####[facility] [place] [address], [facility] AST enzyme act/vol 40 U/L High 13-39 [facility] Comment on above: Performed By: #### 4 180, 87795 ####[facility] [place] [address], [facility] Bilirubin mass conc 0.4 mg/dL Normal 0.3-1.0 [facility] Comment on above: Performed By: #### 4 180, 80121 ####[facility] [place] [address], [facility] Calcium mass conc 9.7 mg/dL Normal 8.6-10.3 [facility] Comment on above: Performed By: #### 4 180, 65689 ####[facility] [place] [address], [facility] Chloride molar conc 103 mmol/L Normal 98-107 [facility] Comment on above: Performed By: #### 4 180, 49097 ####[facility] [place] [address], [place] CO2 molar conc 28 mmol/L Normal 21-31 [facility] Comment on above: Performed By: #### 4 180, 44867 ####[facility] [place] [address], [place] Creatinine mass conc 0.81 mg/dL Normal 0.60-1.20 [facility] Comment on above: Performed By: #### 4 180, 70593 ####[facility] [place] [address], [facility] GFR/1.73 sq M predicted among blacks MDRD vol rate/area (S/P/Bld) mL/min/{1.73_m2} Normal >60 [facility] Comment on above: Performed By: #### 4 180, 50570 ####[facility] [place] [address], [facility] GFR/1.73 sq M predicted among non-blacks MDRD vol rate/area (S/P/Bld) mL/min/{1.73_m2} Normal >60 [facility] Comment on above: Performed By: #### 4 180, 80168 ####[facility] [place] [address], [facility] Glucose mass conc 95 mg/dL Normal 70-100 [facility] Comment on above: Performed By: #### 4 180, 66598 ####[facility] [facility] [place] [address], [facility] Potassium molar conc 4.4 mmol/L Normal 3.5-5.1 [facility] Comment on above: Performed By: #### 4 180, 33386 ####[facility] [place] [address], [facility] Protein mass conc 7.2 g/dL Normal 6.0-8.3 [facility] Comment on above: Performed By: #### 4 180, 65860 ####[facility] [place] [address], [place] Sodium molar conc 139 mmol/L Normal 136-145 [facility] Comment on above: Performed By: #### 4 1802, 57391 ####[facility] [facility] [place] [address], [facility] Urea nitrogen mass conc 19 mg/dL Normal 7-25 [facility] Comment on above: Performed By: #### 4 1801, 02378 ####[facility] [facility].[address] Glucose Glucometer (BldC) [M ass/Vol]on 08-17-2017 Glucose [Mass/Vol] 99 mg/dL [facility] Comment on above: Random Glucose Refer ence Range is dependent on time and content of last meal. Glucose of more than 200 mg/dL in a nonstressed, ambulatory subject supports the diagnosis of Diabetes Mellitus. CBC W/DIFFon 03-31-2017 Basophils Auto #/vol (Bld) 0.3 % Normal 0.0-2.0 [facility] Comment on above: Performed By: #### 4 1801, 45867 ####[facility] [facility] [place] [address], [facility] Eosinophils/100 WBC Auto (Bld) 2.1 % Normal 0.0-5.0 [facility] Comment on above: Performed By: #### 4 1801, 85835 ####[facility] [facility] [place] [address], [facility] Erythrocyte distribution width Auto Ratio (RBC) 13.0 % Normal 11.5-16.9 [facility] Comment on above: Performed By: #### 4 1801, 03487 ####[facility] [facility] [place] [address], [facility] Hematocrit Auto Volume Fraction (Bld) 42.6 % Normal 36.0-48.0 [facility] Comment on above: Performed By: #### 4 1801, 91163 ####[facility] [facility] [place] [address], [facility] Hemoglobin mass conc (Bld) 14.3 g/dL Normal 12.0-15.0 [facility] Comment on above: Performed By: #### 4 180, 50654 ####[facility] [place] [address], [facility] Lymphocytes/100 WBC Auto (Bld) 29.7 % Normal 20.0-40.0 [facility] Comment on above: Performed By: #### 4 180, 28462 ####[facility] [place] [address], [facility] MCH Auto Entitic mass (RBC) 30.7 pg Normal 24.0-32.0 [facility] Comment on above: Performed By: #### 4 180, 32530 ####[facility] [place] [address], [facility] MCHC Auto mass conc (RBC) 33.7 g/dL Normal 32.0-36.0 [facility] Comment on above: Performed By: #### 4 180, 11455 ####[facility] [place] [address], [facility] MCV Auto Entitic volume (RBC) 91.2 fL Normal 80.0-100.0 [facility] Comment on above: Performed By: #### 4 180, 24440 ####[facility] [place] [address], [facility] METHOD Normal RBC Morphology Normal [facility] Comment on above: Performed By: #### 4 180, 05577 ####[facility] [place] [address], [facility] MONOS 6.4 % Normal 2-8 [facility] Comment on above: Performed By: #### 4 180, 62106 ####[facility] [place] [address], [place] Neutrophils/100 WBC Auto (Bld) 61.5 % Normal 50-70 [facility] Comment on above: Performed By: #### 4 180, 78789 ####[facility] [place] [address], [facility] PLAT CNT 261 Thou/mm3 Normal 100-400 [facility] Comment on above: Performed By: #### 4 180, 79380 ####[facility] [place] [address], [facility] RBC Auto #/vol (Bld) 4.67 mill/mm3 Normal 3.50-5.50 [facility] Comment on above: Performed By: #### 4 1801, 96885 ####[facility] [place] [address], [facility] WBC Auto #/vol (Bld) 6.6 Thou/mm3 Normal 4.0-10.0 [facility] Comment on above: Performed By: #### 4 1801, 14299 ####[facility] COMP METABOLIC PANELon 03-31 Albumin mass conc 4.0 g/dL Normal 3.5-5.7 [facility] Comment on above: Performed By: #### 4 1801, 56155 ####[facility] [place] [address], [facility] ALKALINE PHOSPH 73 IU/L Normal 34-104 [facility] Comment on above: Performed By: #### 4 180, 47576 ####[facility] [place] [address], [facility] ALT enzyme act/vol 49 U/L Normal 7-52 [facility] Comment on above: Performed By: #### 4 180, 82315 ####[facility] [place] [address], [facility] AST enzyme act/vol 34 U/L Normal 13-39 [facility] Comment on above: Performed By: #### 4 180, 53017 ####[facility] [place] [address], [place] Bilirubin mass conc 0.3 mg/dL Normal 0.3-1.0 [facility] Comment on above: Performed By: #### 4 180, 63751 ####[facility] [place] [address], [place] Calcium mass conc 10.0 mg/dL Normal 8.6-10.3 [facility] Comment on above: Performed By: #### 4 180, 51192 ####[facility] [place] [address], [place] Chloride molar conc 103 mmol/L Normal 98-107 [facility] Comment on above: Performed By: #### 4 180, 14362 ####[facility] [place] [address], [place] CO2 molar conc 29 mmol/L Normal 21-31 [facility] Comment on above: Performed By: #### 4 180, 15174 ####[facility] [place] [address], [place] Creatinine mass conc 0.86 mg/dL Normal 0.60-1.20 [facility] Comment on above: Performed By: #### 4 180, 28332 ####[facility] [place] [address], [place] GFR/1.73 sq M predicted among blacks MDRD vol rate/area (S/P/Bld) mL/min/{1.73_m2} Normal >60 [facility] Comment on above: Performed By: #### 4 180, 46822 ####[facility] [place] [address], [place] GFR/1.73 sq M predicted among non-blacks MDRD vol rate/area (S/P/Bld) mL/min/{1.73_m2} Normal >60 [facility] Comment on above: Performed By: #### 4 180, 47073 ####[facility] [facility] [place] [address], [facility] Glucose mass conc 86 mg/dL Normal 70-100 [facility] Comment on above: Performed By: #### 4 180, 39070 ####[facility] [facility] [place] [address], [facility] Potassium molar conc 4.1 mmol/L Normal 3.5-5.1 [facility] Comment on above: Performed By: #### 4 180, 46524 ####[facility] [facility].[address] Protein mass conc 7.0 g/dL Normal 6.0-8.3 [facility] Comment on above: Performed By: #### 4 180, 85900 ####[facility] [facility].[address] Sodium molar conc 138 mmol/L Normal 136-145 [facility] Comment on above: Performed By: #### 4 180, 00616 ####[facility] [facility] [place] [address], [facility] Urea nitrogen mass conc 14 mg/dL Normal 7-25 [facility] Comment on above: Performed By: #### 4 180, 73008 ####[facility] [facility].[address] ANAon 02-10-2017 HELENE SCREEN <1:40 Normal <1:40,1:40 [facility] Comment on above: Performed By: #### 1 0008 ####[facility] [facility].[address] ANCA IGG WITH REFLEX [id number] on 02-10-2017 ANCA <1:20 Normal <1:20 [facility] Comment on above: Result Comment: The ANCA IFA is <1:20; therefore, no further testing willbe performed.INTERPRETIVE INFORMATION: Anti-Neutrophil Cyto Ab, IgGNeutrophil Cytoplasmic Antibodies (C-ANCA = granularcytoplasmic staining, P-ANCA = perinuclear staining) arefound in the serum of over 90 percent of patients withcertain necrotizing systemic vasculitides, and usually inless than 5 percent of patients with collagen vasculardisease or arthritis.Performed by [facility],[address] [place] [id number] [email or web address], Onel Connelly MD - Lab. Director ANTI DNAon 02-10-2017 ANTI DNA <1:10 Normal <1:10 [facility] Comment on above: Performed By: #### 1 0008 ####[facility] [facility] [place] [address], [facility] ANTI-BETA 2 GLYCOPROTEIN 1on 02-10-2017 ANTI B2GP1 IGA 9.3 a units Normal 0.0-19.9 [facility] Comment on above: Performed By: #### 1 0008 ####[facility] [facility] [place] [address], [facility] ANTI B2GP1 IGG 1.1 g units Normal 0.0-19.9 [facility] Comment on above: Performed By: #### 1 0008 ####[facility] [facility] [place] [address], [facility] ANTI B2GP1 IGM 2.5 m units Normal 0.0-19.9 [facility] Comment on above: Performed By: #### 1 0008 ####[facility] [facility] [place] [address], [facility] ANTI-ENAon 02-10-2017 ANTI SM Negative Normal NEG,NEGATIVE,N eg [facility] Comment on above: Performed By: #### 1 0008 ####[facility] [facility] [place] [address], [place] ANTI SM/ANTIRNP Negative Normal NEG,NEGATIVE ,N eg [facility] Comment on above: Performed By: #### 1 0008 ####[facility] [facility].[address] ANTICARDIOLIPIN ANTIBODYon 1 04-12-2016 CARDIOLIPIN IGA 4.9 APL Normal 0.0-21.9 [facility] Comment on above: Performed By: #### 1 0008 ####[facility] [facility].[address] CARDIOLIPIN IGG 14.5 GPL Normal 0.0-22.9 [facility] Comment on above: Performed By: #### 1 0008 ####[facility] CARDIOLIPIN IGM 9.5 MPL Normal 0.0-10.9 [facility] Comment on above: Performed By: #### 1 0008 ####[facility] CBC W/DIFFon 02-10-2017 Basophils Auto #/vol (Bld) 0.4 % Normal 0.0-2.0 [facility] Comment on above: Performed By: #### 5 3 ####[facility] Eosinophils/100 WBC Auto (Bld) 2.5 % Normal 0.0-5.0 [facility] Comment on above: Performed By: #### 5 3 ####[facility] Erythrocyte distribution width Auto Ratio (RBC) 14.5 % Normal 11.5-16.9 [facility] Comment on above: Performed By: #### 5 102 ####[facility] Hematocrit Auto Volume Fraction (Bld) 41.0 % Normal 36.0-48.0 [facility] Comment on above: Performed By: #### 3 ####[facility] Hemoglobin mass conc (Bld) 13.6 g/dL Normal 12.0-15.0 [facility] Comment on above: Performed By: #### 3 ####[facility] Lymphocytes/100 WBC Auto (Bld) 26.7 % Normal 20.0-40.0 [facility] Comment on above: Performed By: #### 3 ####[facility] MCH Auto Entitic mass (RBC) 30.5 pg Normal 24.0-32.0 [facility] Comment on above: Performed By: #### 3 ####[facility] MCHC Auto mass conc (RBC) 33.2 g/dL Normal 32.0-36.0 [facility] Comment on above: Performed By: #### 3 ####[facility] [facility] MCV Auto Entitic volume (RBC) 91.8 fL Normal 80.0-100.0 [facility] Comment on above: Performed By: #### 3 ####[facility] [facility] METHOD Normal RBC Morphology Normal [facility] Comment on above: Performed By: #### 3 ####[facility] MONOS 6.6 % Normal 2-8 [facility] Comment on above: Performed By: #### 3 ####[facility] [facility] [place] [address], [facility] Neutrophils/100 WBC Auto (Bld) 63.8 % Normal 50-70 [facility] Comment on above: Performed By: #### 5 0103 ####[facility] [facility] [address], [facility] PLAT CNT 310 Thou/mm3 Normal 100-400 [facility] Comment on above: Performed By: #### 5 0103 ####[facility] [facility] [place] [address], [facility] RBC Auto #/vol (Bld) 4.47 mill/mm3 Normal 3.50-5.50 [facility] Comment on above: Performed By: #### 5 102 ####[facility] [facility] [address], [facility] WBC Auto #/vol (Bld) 7.6 Thou/mm3 Normal 4.0-10.0 [facility] Comment on above: Performed By: #### 3 ####[place] [id number] [facility].[address] COMP METABOLIC PANELon 02-10 Albumin mass conc 4.3 g/dL Normal 3.5-5.7 [facility] Comment on above: Performed By: #### 0 0121 ####[facility] [facility] [place] [address], [facility] ALKALINE PHOSPH 89 IU/L Normal 34-104 [facility] Comment on above: Performed By: #### 0 0121 ####[facility] [facility].[address] ALT enzyme act/vol 35 U/L Normal 7-52 [facility] Comment on above: Performed By: #### 0 0121 ####[place] [id number] [facility] AST enzyme act/vol 27 U/L Normal 13-39 [facility] Comment on above: Performed By: #### 0 0121 ####[facility] [facility] [place] [address], [facility] Bilirubin mass conc 0.4 mg/dL Normal 0.3-1.0 [facility] Comment on above: Performed By: #### 0 0121 ####[facility] [facility] [place] [address], [facility] Calcium mass conc 9.9 mg/dL Normal 8.6-10.3 [facility] Comment on above: Performed By: #### 0 0121 ####[facility] [facility] [place] [address], [facility] Chloride molar conc 102 mmol/L Normal 98-107 [facility] Comment on above: Performed By: #### 0 0121 ####[facility] [place] [address], [facility] CO2 molar conc 25 mmol/L Normal 21-31 [facility] Comment on above: Performed By: #### 0 0121 ####[facility] [place] [address], [facility] Creatinine mass conc 0.87 mg/dL Normal 0.60-1.20 [facility] Comment on above: Performed By: #### 0 0121 ####[facility] [facility] [place] [address], [facility] GFR/1.73 sq M predicted among blacks MDRD vol rate/area (S/P/Bld) mL/min/{1.73_m2} Normal >60 [facility] Comment on above: Performed By: #### 0 0121 ####[facility] [facility] [place] [address], [facility] GFR/1.73 sq M predicted among non-blacks MDRD vol rate/area (S/P/Bld) mL/min/{1.73_m2} Normal >60 [facility] Comment on above: Performed By: #### 0 0121 ####[facility] [facility].[address] Glucose mass conc 99 mg/dL Normal 70-100 [facility] Comment on above: Performed By: #### 0 0121 ####[facility] [facility].[address] Potassium molar conc 4.1 mmol/L Normal 3.5-5.1 [facility] Comment on above: Performed By: #### 0 0121 ####[facility] Protein mass conc 7.5 g/dL Normal 6.0-8.3 [facility] Comment on above: Performed By: #### 0 0121 ####[facility] Sodium molar conc 136 mmol/L Normal 136-145 [facility] Comment on above: Performed By: #### 0 0121 ####[facility] Urea nitrogen mass conc 20 mg/dL Normal 7-25 [facility] Comment on above: Performed By: #### 0 0121 ####[facility] [facility].[address] COMPLEMENT 302-10-2017 COMPLEMENT 3 154 mg/dL High 79-152 [facility] Comment on above: Performed By: #### 1 0204, 20045, 40690 ####[facility] [facility].[address] COMPLEMENT 4on 02-10-2017 COMPLEMENT 4 34 mg/dL Normal 16-38 [facility] Comment on above: Performed By: #### 1 0204, 68854, 99507 ####[facility] [facility] [place] [address], [facility] CREATININE URINE RANDOMon CREATININE 138.0 mg/dL Normal [facility] Comment on above: Result Comment: Ther e are no established reference values for random urine specimens Performed By: #### 4 1802, [id number] ####[facility] [facility] [place] [address], [facility] CRYOGLOBULIN ILon 02-10-2017 CRYOGLOBULIN 0 mg/dL Normal 0-10 [facility] [place] Normal [facility] CYCLIC CITRULLINATED PEPTIDE AB [id number] 02-10-2017 CYCLIC CIT PEP 6 Units Normal 0-19 [facility] Comment on above: Result Comment: INTE RPRETIVE [...] results should bemonitored and testing repeated.Performed by [facility],[address] [place] [id number] [email or web address], Onel Connelly MD - Lab. Director HEPATITIS B CORE ANTIBODYon 02-10-2017 HEP B CORE AB NONREACTIVE Normal NONREACTIVE [facility] Comment on above: Performed By: #### 3 1397, 69840, 36806, 87049 ####[facility] HEPATITIS B SURFACE ANTIBODY QUANTon 02-10-2017 HEP B SURF AB 0.00 mIU/ml Normal [facility] Comment on above: Result Comment: INTE RPRETATION:NONREACTIVE<8.00 mIU/mLINDETERMINATE8.00 - 12.00 mIU/mLREACTIVE>12 mIU/mL Performed By: #### 1 0008 ####[facility] HEPATITIS B SURFACE ANTIGEN QUALon 02-10-2017 HEP B SURF AG QUAL NONREACTIVE Normal NONREACTIVE [facility] Comment on above: Performed By: #### 1 0008 ####[facility] [facility].[address] HEPATITIS C ANTIBODYon 02-10 ANTI-HCV NONREACTIVE Normal NONREACTIVE [facility] Comment on above: Performed By: #### 3 1397, 29929, 22142, 92619 ####[facility] [facility].[address] RHEUMATOID FACTOR SERUMon RA <20 Normal 0-20 [facility] Comment on above: Performed By: #### 1 0204, 96585, 00777 ####[facility] [facility] [place] [address], [facility] SJOGRENS ANTIBODIESon 2016 SS-A Negative Normal NEG,NEGATIVE,N eg [facility] Comment on above: Performed By: #### 1 0008 ####[facility] [facility] [place] [address], [facility] SS-B Negative Normal NEG,NEGATIVE,N eg [facility] Comment on above: Performed By: #### 1 0008 ####[facility] [facility] [place] [address], [facility] T PROT UR Adam 02-10-2017 Protein mass conc 29.0 mg/dL Normal [facility] Comment on above: Result Comment: Ther e are no established reference values for random urine specimens Performed By: #### 4 1802, [id number] ####[facility] TB QUANTIFERONon 02-10-2017 MITOGEN MINUS NIL >=10 Normal [facility] Comment on above: Performed By: #### 4 1802, 92557 ####[facility] [facility].[address] NIL 0.03 IU/mL Normal [facility] Comment on above: Performed By: #### 4 1802, 40554 ####[facility] [facility].[address] TB AG MINUS NIL 0.01 IU/mL Normal [facility] Comment on above: Performed By: #### 4 1802, 66367 ####[facility] TB ANTIGEN 0.04 IU/mL Normal [facility] Comment on above: Performed By: #### 4 1802, 57703 ####[facility] TB QUANTIFERON Negative Normal NEGATIVE [facility] Comment on above: Result Comment: Boy tiferon [...] and LTBI(http://www.cdc.gov/nchstp/tb/). Performed By: #### 4 1802, 16868 ####[facility] URINALYSISon 02-10-2017 APPEARANCE CLOUDY Abnormal CLEAR [facility] Comment on above: Performed By: #### 1 0008 ####[facility] [place] [address], [facility] BACTERIA MOD Abnormal NONE SEEN [facility] Comment on above: Performed By: #### 1 0008 ####[facility] [place] [address], [facility] BILIRUBIN Negative Normal NEGATIVE [facility] Comment on above: Performed By: #### 1 0008 ####[facility] [facility] [address], [facility] BLOOD Negative Normal NEGATIVE [facility] Comment on above: Performed By: #### 1 0008 ####[facility] [facility] [address], [facility] COLOR YELLOW Normal YELLOW [facility] Comment on above: Performed By: #### 1 0008 ####[facility] [facility] [address], [facility] EPIS MANY Abnormal FEW [facility] Comment on above: Performed By: #### 1 0008 ####[facility] [facility] [place] [address], [facility] GLUCOSE Negative Normal NEGATIVE [facility] Comment on above: Performed By: #### 1 0008 ####[facility] [facility] [place] [address], [facility] INR Coag RelTime (Bld) 0-2 Abnormal 0-0 [facility] Comment on above: Performed By: #### 1 0008 ####[facility] [place] [address], [facility] KETONE Negative Normal NEGATIVE [facility] Comment on above: Performed By: #### 1 0008 ####[facility] [place] [address], [facility] LEUK DIMPLE LARGE Abnormal NEGATIVE [facility] Comment on above: Performed By: #### 1 0008 ####[facility] [place] [address], [facility] MUCUS THREADS OCC Abnormal NONE SEEN [facility] Comment on above: Performed By: #### 1 0008 ####[facility] [facility] [place] [address], [facility] NITRITE Negative Normal NEGATIVE [facility] Comment on above: Performed By: #### 1 0008 ####[facility] [facility] [place] [address], [facility] PH 5.0 Normal 5.0-8.0 [facility] Comment on above: Performed By: #### 1 0008 ####[facility] [facility] [place] [address], [facility] Protein mass conc Negative Normal NEGATIVE [facility] Comment on above: Performed By: #### 1 0008 ####[facility] [facility] [place] [address], [facility] SPEC GRAV 1.020 Normal 1.015-1.020 [facility] Comment on above: Performed By: #### 1 0008 ####[facility] [facility] [place] [address], [facility] WBC UA >100 Abnormal 0-0 [facility] Comment on above: Performed By: #### 1 0008 ####[facility] [facility].[address] CYTOLOGY SPECIMENon 02-02-20 17 CYTOLOGY SPEC Normal [facility] Comment on above: Order Comment: Comme nt: A. PERIESOPHAGEAL LESION FNA - CYTOLYT, 10 SLIDES Result Comment: Note : Specimens received on or after December:* Pathology and Cytology reports are located in [employer] in the folder labeled Medical Record Forms.* Reports are also in the Physician Portal.* Reports will be faxed to phycician's office.* For assistance locating reports call: * Willard Guadarrama [phone] * LAB [phone] Performed By: #### L CYTO ####[place] [id number] [address] Albumin [Mass/volume] in Ser um or Plasmaon 01-03-2017 Albumin [Mass/Vol] 3.3 g/dL 3.2-5.5 [facility] Basophils Auto (Bld) [#/Vol] on 01-03-2017 Basophils (Bld) [#/Vol] 0.0 10*3/uL 0.0-0.2 [facility] Basophils/100 WBC Auto (Bld) on 01-03-2017 Basophils/100 WBC (Bld) 0.6 % . [facility] Creatinine and Glomerular fi ltration rate.predicted panel (S/P/Bld)on 01-03-2017 Creatinine [Mass/Vol] 1.00 mg/dL 0.44-1.03 [facility] Eosinophils Auto (Bld) [#/Vo l]on 01-03-2017 Eosinophils (Bld) [#/Vol] 0.1 10*3/uL 0.0-0.45 [facility] Eosinophils/100 WBC Auto (Bl d)on 01-03-2017 Eosinophils/100 WBC (Bld) 1.5 % . [facility] Erythrocyte distribution wid th Auto (RBC) [Ratio]on 01-03-2017 Erythrocyte distribution width (RBC) [Ratio] 14.5 % 11.9-15.3 [facility] Estimated glomerular filtrat ion rate (GFR) non- Americanon 01-03-2017 GFR/1.73 sq M.predicted among non-blacks MDRD (S/P/Bld) [Vol rate/Area] 56 mL/min/{1.73_m2} [facility] Globulin Calc (S) [Mass/Vol] on 01-03-2017 Globulin (S) [Mass/Vol] 3.6 g/dL [facility] Hematocrit Auto (Bld) [Volum e fraction]on 01-03-2017 Hematocrit (Bld) [Volume fraction] 36.3 % 34.0-46.4 [facility] Hemoglobin [Mass/volume] in Bloodon 01-03-2017 Hemoglobin (Bld) [Mass/Vol] 12.1 g/dL 11.8-15.4 [facility] Laboratory - Chemistry and C hemistry - challengeon 01-03-2017 GFR/1.73 sq M.predicted among blacks MDRD (S/P/Bld) [Vol rate/Area] mL/min/{1.73_m2} [facility] Comment on above: GFR estimated refere nce range: According to KDOQI guidelines, <60 ml/min/1.73m2 is sufficient to diagnose a patient with chronic kidney disease. Lymphocytes Auto (Bld) [#/Vo l]on 01-03-2017 Lymphocytes (Bld) [#/Vol] 2.1 10*3/uL 1.00-4.8 [facility] Lymphocytes/100 WBC Auto (Bl d)on 01-03-2017 Lymphocytes/100 WBC (Bld) 27.4 % . [facility] MCH Auto (RBC) [Entitic mass ]on 01-03-2017 MCH (RBC) [Entitic mass] 30.8 pg 24.7-34.3 [facility] MCHC Auto (RBC) [Mass/Vol]on 01-03-2017 MCHC (RBC) [Mass/Vol] 33.4 g/dL 32.0-35.0 [facility] MCV Auto (RBC) [Entitic vol] on 01-03-2017 MCV (RBC) [Entitic vol] 92.4 fL 80-100 [facility] Monocytes Auto (Bld) [#/Vol] on 01-03-2017 Monocytes (Bld) [#/Vol] 1.0 10*3/uL High 0.0-0.8 [facility] Monocytes/100 WBC Auto (Bld) on 01-03-2017 Monocytes/100 WBC (Bld) 12.7 % . [facility] Neutrophils Auto (Bld) [#/Vo l]on 01-03-2017 Neutrophils (Bld) [#/Vol] 4.4 10*3/uL 1.8-7.7 [facility] Neutrophils/100 WBC Auto (Bl d)on 01-03-2017 Neutrophils/100 WBC (Bld) 57.8 % . [facility] No Panel Informationon 01-03 Pharmacy Creatinine Clearance (Chem N/A [facility] Platelet mean volume Auto (B ld) [Entitic vol]on 01-03-2017 Platelet mean volume (Bld) [Entitic vol] 8.2 fL 6.3-10.7 [facility] Platelets Auto (Bld) [#/Vol] on 01-03-2017 Platelets (Bld) [#/Vol] 429 10*3/uL 150-450 [facility] Protein [Mass/volume] in Ser um or Plasmaon 01-03-2017 Protein [Mass/Vol] 6.9 g/dL 6.1-7.9 [facility] RBC Auto (Bld) [#/Vol]on RBC (Bld) [#/Vol] 3.93 10*6/uL 3.60-5.00 [facility] Serum or plasma alanine briggs otransferase measurement without P-5'-P (enzymatic activion 01-03-2017 ALT No additional P-5'-P [Catalytic activity/Vol] 37 U/L 10 [facility] Serum or plasma albumin/glob ulin mass ratioon 01-03-2017 Albumin/Globulin [Mass ratio] 0.9 {ratio} [facility] Serum or plasma alkaline bita sphatase measurement (enzymatic activity/volume)on 01-03-2017 ALP [Catalytic activity/Vol] 89 U/L 32-92 [facility] Serum or plasma aspartate am inotransferase measurement (enzymatic activity/volume)on 01-03-2017 AST [Catalytic activity/Vol] 30 U/L 10-42 [facility] Serum or plasma calcium katheryn urement (mass/volume)on 01-03-2017 Calcium [Mass/Vol] 9.4 mg/dL 8.2-10.2 [facility] Serum or plasma chloride claudia surement (moles/volume)on 01-03-2017 Chloride [Moles/Vol] 98 mmol/L 95-114 [facility] Serum or plasma glucose katheryn urement (mass/volume)on 01-03-2017 Glucose [Mass/Vol] 107 mg/dL High 70-100 [facility] Comment on above: ADA recommended refe rence rangeRandom Glucose Reference Range is dependent on time and content of last meal. Glucose of more than 200 mg/dL in a nonstressed, ambulatory subject supports the diagnosis of Diabetes Mellitus. Serum or plasma potassium me asurement (moles/volume)on 01-03-2017 Potassium [Moles/Vol] 4.1 mmol/L 3.5-5.1 [facility] Serum or plasma sodium measu rement (moles/volume)on 01-03-2017 Sodium [Moles/Vol] 139 mmol/L 136-146 [facility] Serum or plasma total biliru bin measurement (mass/volume)on 01-03-2017 Bilirubin [Mass/Vol] 0.3 mg/dL 0.3-1.2 [facility] Serum or plasma total carbon dioxide measurement (moles/volume)on 01-03-2017 CO2 [Moles/Vol] 29.5 mmol/L 22.0-30.0 [facility] Serum or plasma urea nitroge n measurement (mass/volume)on 01-03-2017 Urea nitrogen [Mass/Vol] 12 mg/dL 12-25 [facility] WBC Auto (Bld) [#/Vol]on WBC (Bld) [#/Vol] 7.6 10*3/uL 3.8-11.6 [facility] No Panel Information [facility] Vital Signs Date Time Vital Sign Value Performing Clinician Facility 07-24-2024 11:13-0400 Body height 160 cm Sarahi Pierson MD Work Phone: [facility] 07-24-2024 11:13-0400 Body mass index (BMI) [Ratio] 27.99 kg/m2 Sarahi Pierson MD Work Phone: [facility] 07-24-2024 11:13-0400 Body weight 71.67 kg Sarahi Pierson MD Work Phone: [facility] 07-24-2024 11:13-0400 Diastolic blood pressure 72 mm[Hg] Sarahi iPerson MD Work Phone: [facility] 07-24-2024 11:13-0400 Heart rate 91 /min Sarahi Pierson MD Work Phone: [facility] 07-24-2024 11:13-0400 Systolic blood pressure 123 mm[Hg] Sarahi Pierson MD Work Phone: [facility] 07-12-2024 08:19-0400 Body height 160 cm Lynsey Saldana MD Work Phone: [facility] 07-12-2024 08:19-0400 Body mass index (BMI) [Ratio] 28.7 kg/m2 Lynsey Saldana MD Work Phone: [facility] 07-12-2024 08:19-0400 Body temperature 97.59 [degF] Lynsey Saldana MD Work Phone: [facility] 07-12-2024 08:19-0400 Body weight 73.48 kg Lynsey Saldana MD Work Phone: [facility] 07-12-2024 08:19-0400 Diastolic blood pressure 78 mm[Hg] Lynsey Saldana MD Work Phone: [facility] 07-12-2024 08:19-0400 Heart rate 78 /min Lynsey Saldana MD Work Phone: [facility] 07-12-2024 08:19-0400 SaO2% (BldA) [Mass fraction] 97 % Lynsey Saldana MD Work Phone: [facility] 07-12-2024 08:19-0400 Systolic blood pressure 136 mm[Hg] Lynsey Saldana MD Work Phone: [facility] 01-30-2024 10:17-0400 Body height 167.64 cm MD Christian Steiner Work Phone: [facility] 01-30-2024 10:17-0400 Body mass index (BMI) [Ratio] 26.3 kg/m2 MD Christian Steiner Work Phone: [facility] 01-30-2024 10:17-0400 Body temperature 97.3 [degF] MD Christian Steiner Work Phone: [facility] 01-30-2024 10:17-0400 Body weight 73.93 kg MD Christian Steiner Work Phone: [facility] 01-30-2024 10:17-0400 Heart rate 86 /min MD Christian Steiner Work Phone: [facility] 01-30-2024 10:17-0400 Respiratory rate 16 /min MD Christian Steiner Work Phone: [facility] 01-30-2024 10:17-0400 SaO2% (BldA) [Mass fraction] 96 % MD Christian Steiner Work Phone: [facility] 07-14-2023 11:29-0400 Body height 157.5 cm Lynsey Saldana MD Work Phone: [facility] 07-14-2023 11:29-0400 Body mass index (BMI) [Ratio] 30 kg/m2 Lynsey Saldana MD Work Phone: [facility] 07-14-2023 11:29-0400 Body weight 74.39 kg Lynsey Saldana MD Work Phone: [facility] 07-14-2023 11:29-0400 Diastolic blood pressure 84 mm[Hg] Lynsey Saldana MD Work Phone: [facility] 07-14-2023 11:29-0400 Heart rate 79 /min Lynsey Saldana MD Work Phone: [facility] 07-14-2023 11:29-0400 Systolic blood pressure 134 mm[Hg] Lynsey Saldana MD Work Phone: [facility] 01-21-2023 09:58-0400 Body temperature 97.2 [degF] MD Christian Steiner Work Phone: [facility] 01-21-2023 09:58-0400 Body weight 76.65 kg MD Christian Steiner Work Phone: [facility] 01-21-2023 09:58-0400 Diastolic blood pressure 78 mm[Hg] MD Christian Steiner Work Phone: [facility] 01-21-2023 09:58-0400 Heart rate 71 /min MD Christian Steiner Work Phone: [facility] 01-21-2023 09:58-0400 Respiratory rate 16 /min MD Christian Steiner Work Phone: [facility] 01-21-2023 09:58-0400 SaO2% (BldA) [Mass fraction] 98 % MD Christian Steiner Work Phone: [facility] 01-21-2023 09:58-0400 Systolic blood pressure 141 mm[Hg] MD Christian Steiner Work Phone: [facility] 01-21-2022 10:03-0400 Body height 167.64 cm MD Christian Steiner [facility] 01-21-2022 10:03-0400 Body weight 82.64 kg MD Christian Steiner [facility] 01-21-2022 10:03-0400 Diastolic blood pressure 78 mm[Hg] MD Christian Steiner [facility] 01-21-2022 10:03-0400 Heart rate 98 /min MD Christian Steiner [facility] 01-21-2022 10:03-0400 Respiratory rate 18 /min MD Christian Steiner [facility] 01-21-2022 10:03-0400 SaO2% (BldA) [Mass fraction] 98 % MD Christian Steiner [facility] 01-21-2022 10:03-0400 Systolic blood pressure 122 mm[Hg] MD Christian Steiner [facility] 01-21-2021 10:29-0400 Body temperature 98 [degF] MD Christian Steiner [facility] Encounters Encounter Date Encounter Type Care Provider Facility Start: 10-22-2024 End: 10-22-2024 Patient encounter procedure Alesha Schulte MD Work Phone: Ophthalmology Comment on above: Primary open-angle g laucoma, bilateral, mild stage (Primary Dx) Start: 10-22-2024 End: 10-22-2024 ambulatory ALESHA SCHULTE Facility:[facility] Start: 07-25-2024 End: 07-25-2024 Telephone encounter Jr. Leonardo Boudreaux DO Work Phone: [facility] Comment on above: dentist Start: 07-24-2024 End: 07-24-2024 Bamboo flowsheet Sarahi Pierson MD Work Phone: [facility] Start: 07-24-2024 End: 07-24-2024 Bamelpidio flowsamilcar Pierson MD Work Phone: [facility] [...] 15 minutes Lynsey Saldana MD Work Phone: [facility] Comment on above: Lymphedema (Primary Dx) Start: 07-12-2024 End: 07-12-2024 ambulatory LYNSEY SALDANA [facility] Start: 07-02-2024 End: 07-02-2024 ambulatory Lizzie Torre MD Facility:[facility] Start: 06-11-2024 End: 06-11-2024 ambulatory Lizzie Torre MD Facility:[facility] Start: 05-14-2024 End: 05-14-2024 ambulatory Lizzie Torre MD Facility:[facility] Start: 04-18-2024 End: 04-18-2024 ambulatory CK GONZALEZ Facility:[facility] Start: 04-18-2024 End: 04-18-2024 Patient encounter [...] Start: 04-09-2024 End: 04-09-2024 Bamboo flowsheet Dino George PA Work Phone: [facility] Start: 04-09-2024 End: 04-09-2024 Bamboo flowsheet Dino George PA Work Phone: [facility] Start: 01-30-2024 Registered Recurring MD Tigre Steiner [facility] Work Phone: Start: 01-30-2024 End: 01-30-2024 ambulatory MD Christian Steiner Work Phone: [facility] Work Phone: Start: 01-30-2024 End: 01-30-2024 Patient encounter procedure MD Christian Steiner [facility] Work Phone: Start: 12-19-2023 End: 12-19-2023 Bamboo flowsheet Dino PÉREZ Work Phone: [facility] Start: 12-19-2023 End: 12-19-2023 Bamboo flowsheet Dino Hi Ariel PA Work Phone: [facility] Start: 12-19-2023 End: 12-19-2023 Office outpatient visit 25 minutes Dino PÉREZ Work Phone: [facility] Comment on above: Acute right hip pain (Primary Dx); Trochanteric bursitis of right hip; Gluteal tendonitis of right buttock Start: 12-19-2023 End: 12-19-2023 ambulatory DINO GEORGE Not Available Start: 10-17-2023 End: 10-17-2023 Patient encounter procedure Alesha Schulte MD Work Phone: Ophthalmology Comment on above: Primary open-angle g laucoma, bilateral, mild stage (Primary Dx) Start: 09-05-2023 End: 09-05-2023 Patient encounter procedure Alesha Schulte MD Work Phone: Ophthalmology Comment on above: Primary open-angle g laucoma, bilateral, mild stage (Primary Dx) Start: 08-24-2023 End: 08-24-2023 ambulatory SARAHI PIERSON Not Available Start: 07-27-2023 End: 07-27-2023 Patient encounter procedure Alesha Schulte MD Work Phone: Ophthalmology Comment on above: Primary open-angle g laucoma, bilateral, mild stage (Primary Dx) Start: 07-14-2023 End: 07-14-2023 Office outpatient visit 15 minutes Lynsey Saldana MD Work Phone: [facility] Comment on above: Lymphedema (Primary Dx) Start: 05-18-2023 Chart abstracting Jr. Leonardo Boudreaux DO Work Phone: [facility] Start: 01-21-2023 End: 01-21-2023 ambulatory MD Christian Steiner Work Phone: [facility] Work Phone: Start: 01-21-2023 End: 01-21-2023 Registered Recurring MD Christian Steiner Work Phone: [facility] Work Phone: Start: 01-17-2023 [...] End: 01-21-2022 ambulatory MD Christian Steiner [facility] Work Phone: Start: 01-21-2022 End: 01-21-2022 Registered Recurring MD Christian Steiner [facility] Start: 01-03-2022 End: 02-01-2022 ambulatory COVARRUBIAS H FAWWAD Facility:[facility] Start: 12-03-2021 End: 01-02-2022 ambulatory COVARRUBIAS H FAWWAD Facility:[facility] Start: 11-02-2021 End: 12-02-2021 ambulatory COVARRUBIAS H FAWWAD Facility:[facility] Start: 10-02-2021 End: 10-30-2021 ambulatory COVARRUBIAS H FAWWAD Facility: Start: 07-19-2018 Patient encounter procedure Kacie Alfonso Jarrod Facility:[id number] Start: 01-17-2018 Patient encounter procedure Kacie Naty Jarrod Facility:[id number] Start: 09-28-2017 End: 09-29-2017 Patient encounter EMELY DOMENICO Facility:[facility] Start: 08-18-2017 Patient encounter procedure Christian Steiner Facility:[id number] Start: 03-31-2017 End: 04-01-2017 Patient encounter EMELY DOMENICO Facility:[facility] Start: 02-10-2017 End: 02-11-2017 Patient encounter EMELY DOMENICO Facility:[facility] Start: 01-28-2017 Ambulatory Pal Deshawn Facility:[facility] Procedures Date Procedure Procedure Detail Performing Clinician Start: 10-22-2024 End: 10-22-2024 Visual field xm uni/bi w/interp extended exam Alesha Schulte MD Work Phone: Start: 07-24-2024 Laboratory test result abnormal Abnormal laboratory test result Sarahi Pierson MD Work Phone: Start: 01-23-2024 Screening mammography of left breast MD Christian Steiner Work Phone: Start: 12-19-2023 Arthrocentesis aspir&/inj major jt/bursa w/o us Dino PÉREZ Work Phone: Start: 09-05-2023 Trabeculoplasty by laser surgery Alesha Schulte MD Work Phone: Start: 07-27-2023 End: 07-27-2023 Visual field xm uni/bi w/interp extended exam Alesha Schulte MD Work Phone: Start: 01-20-2023 Screening mammography of left breast MD Christian Steiner Work Phone: Start: 07-05-2022 End: 07-05-2022 Visual field xm uni/bi w/interp extended exam Alesha Schulte MD Work Phone: Start: 01-18-2022 Screening mammography of left breast MD Christian Setiner Start: 01-15-2021 Screening mammography of left breast [...] Visit [facility] [address] [place] [address] Jr. Leonardo Boudreaux, DO [address] [facility] [address] [place] [address] [facility] Start: 01-22-2025 Screening for malign ant neoplasm of breast Mammogram Screening [facility] Start: 01-07-2025 End: 01-07-2025 Patient encounter procedure 01/07/2025 10:45 AM EDT Office Visit [facility] [address] [place] [address] Alesha Schulte MD [address] [place], [place] [id number] [facility] [address] [address] Return in about 2 months (around 12/23/2024) for VATA. Ophthalmology Comment on above: Return in about 2 mo nths (around 12/23/2024) for VATA. Start: 12-03-2024 Influenza vaccination [facility] Start: 10-22-2024 End: 10-22-2024 Patient encounter procedure 10/22/2024 10:45 AM EDT Office Visit [facility] [address] [place] [address] Alesha Schulte MD [address] [place] [address] RTC: 6 Months Full OCT ON/GCA + HVF 24-2 Flash Ophthalmology Comment on above: RTC: [address] ON/GCA + HVF 24-2 Flash Start: 07-24-2024 End: 07-24-2024 Patient encounter procedure 07/24/2024 11:20 AM EDT Office Visit [facility] [address] [facility] [address] [place] [id number] Sarahi Pierson MD [address] [facility] [address] [place] [address] Arrived [facility] Comment on above: Arrived Start: 07-13-2024 Adult BMI Screening Adult BMI Screen ing [facility] Start: 07-13-2024 Tobacco Screening Tobacco Screening [facility] Start: 07-12-2024 End: 07-12-2024 Patient encounter procedure 07/12/2024 8:30 AM EDT Office Visit [facility] [address] [place] [address] Lynsey Saldana MD [address] [place] [address] [facility] Start: 04-18-2024 End: 04-18-2024 Patient encounter procedure 04/18/2024 10:30 AM EST Office Visit [facility] [address] [facility] [place] [address] Ck Gonzalez, OD [address] [facility] [address] [place] [address] Return in about 6 months (around 04/18/2024) for VATA with TH. Ophthalmology Comment on above: Return in about 6 mo nths (around 04/18/2024) for VATA with TH. Start: 04-09-2024 End: 04-09-2024 Patient encounter procedure 04/09/2024 2:30 PM EST Office Visit [facility] [address] [place] [phone] Dino George PA [address] [facility] [address] [place] [address] Acute pain of right shoulder (Primary Dx) [facility] Comment on above: Acute pain of right shoulder (Primary Dx) Start: 04-04-2024 Advance Directive Discussion Advance Directive Discussion [facility] Start: 01-21-2024 Screening for malign ant neoplasm of breast Mammogram Screening [facility] Start: 01-16-2024 End: 01-16-2024 Patient encounter procedure 01/16/2024 10:15 AM EDT Office Visit [facility] [address] [place] [address] Dino George, PA [address] [facility] [address] [place] [address] [facility] Start: 12-19-2023 End: 12-19-2023 Patient encounter procedure 12/19/2023 10:15 AM EDT Office Visit [facility] [address] [place] [phone] Dino George PA [address] [facility] [address] [place] [address] Acute pain of right knee (Primary Dx); History of total knee replacement, right [facility] Comment on above: Acute pain of right knee (Primary Dx); History of total knee replacement, right Start: 12-04-2023 Covid-19 Vaccine ( season) Covid-19 Vaccine () [facility] Start: 12-04-2023 Influenza vaccination C [facility] Start: 10-17-2023 End: 10-17-2023 Patient encounter procedure 10/17/2023 1:15 PM EDT Office Visit [facility] [address] [place] [address] Alesha Schulte MD [address] [place] [address] Return for VATA. Ophthalmology Comment on above: Return for VATA. Start: 09-05-2023 End: 09-05-2023 Patient encounter procedure 09/05/2023 9:45 AM EDT Office Visit [facility] [address] [place] [address] Alesha Schulte MD [address] [place] [address] Return for slt od on a amonday next available Ophthalmology Comment on above: Return for slt od on a amonday next available Start: 05-18-2023 End: 05-18-2023 Patient encounter procedure 05/18/2023 10:15 AM EST Office Visit [facility] [address] [place] [id number] Jr. Leonardo Boudreaux DO [address] [facility] [address] [place] [address] [facility] Start: 04-04-2023 Advance Directive Discussion Advance Directive Discussion [facility] Start: 04-04-2023 Behavioral Health Screening Behavioral Health Screening [facility] Start: 02-12-2023 Diabetes Screening Diabetes Screenin g [facility] Start: 12-03-2022 Covid-19 Vaccine ( season) Covid-19 Vaccine ( season) [facility] Start: 12-03-2022 Influenza vaccination C [facility] Start: 04-04-2022 ADVANCE DIRECTIVE DISCUSSION ADVANCE DIRECTIVE DISCUSSION [facility] Start: 04-04-2022 DEPRESSION ASSESSMENT DEPRESSION ASS ESSMENT [facility] Start: 12-03-2021 Influenza vaccination INFLUENZA (#1) [facility] Start: 04-04-2021 ADVANCE DIRECTIVE DISCUSSION ADVANCE DIRECTIVE DISCUSSION [facility] Start: 04-04-2021 DEPRESSION ASSESSMENT DEPRESSION ASS ESSMENT [facility] Start: 05-05-2018 Medicare Annual Well ness Visit Medicare Annual Wellness Visit [facility] Start: 2017 BONE DENSITY BONE DENSITY [facility] Start: 2017 Bone Density Screening Bone Density Screening [facility] Start: 2017 Fall Risk Screening Fall Risk Screen ing [facility] Start: 2017 PNEUMOCOCCAL: 65+ (1 - PCV) PNEUMOCOCCAL: 65+ (1 - PCV) [facility] Start: 2017 Screening for osteoporosis Bone Density Screening [facility] Start: 11-13-2014 Administration of varicella zoster vaccine Zoster (Shingles) Vaccine (2 of 3) [facility] Start: 11-13-2014 SHINGRIX VACCINE (2 of 3) SHINGRIX VACCINE (2 of 3) [facility] Start: 2012 RSV Vaccine (1 - 1-d ose 60+ series) RSV Vaccine (1 - 1-dose 60+ series) [facility] Start: 2012 RSV Vaccine (1 - Ris k 60-74 years 1-dose series) RSV Vaccine (1 - Risk 60-74 years 1-dose series) [facility] Start: 2002 SHINGRIX VACCINE (1 of 2) SHINGRIX VACCINE (1 of 2) [facility] Start: 1997 COLOGUARD (FIT-DNA) COLOGUARD (FIT-D NA) [facility] Start: 1997 Colonoscopy COLONOSCOPY [facility] Start: 1997 COLORECTAL CANCER SCREENING COLORECTAL CANCER SCREENING [facility] Start: [address] COLONOGRAPHY [facility] Start: 1997 DIABETES SCREEN DIABETES SCREEN [facility] Start: 1997 Diabetes Screening Diabetes Screenin g [facility] Start: 1997 FECAL OCCULT BLOOD FECAL OCCULT BLOO D [facility] Start: 1997 Lipid 1996 panel - S amalia or Plasma Lipid Screening [facility] Start: 1997 Lipid panel Lipid Screening [facility] Start: 1997 LIPID SCREEN LIPID SCREEN [facility] Start: 1997 Screening for malign ant neoplasm of colon [facility] Start: 1997 SIGMOIDOSCOPY SIGMOIDOSCOPY [facility] Start: 1992 Mammography [facility] Start: 1982 Zoledronic acid therapy ALPHA- 1 ANTITRYPSIN DEFICIENCY SCREENING [facility] Start: 1971 DTaP,Tdap and Td Vaccines (1 - Tdap) DTaP,Tdap and Td Vaccines (1 - Tdap) [facility] Start: 1971 Urine microalbumin profile [facility] Start: 1970 Adult BMI Follow Up Plan Adult BMI Follow Up Plan [facility] Start: 1970 ANNUAL PCP TEAM REHABILITATION SERVICES COORDINATOR LYLE DISEASE VISIT ANNUAL PCP TEAM CHRONIC DISEASE VISIT [facility] Start: 1970 Anxiety Screening Anxiety Screening [facility] Start: 1970 Depression Screening Depression Scre ing [facility] Start: 1970 HEPATITIS C SCREENING HEPATITIS C [facility] Start: 1970 Hepatitis C screening Hepatitis C [facility] Start: 1970 SPIROMETRY SPIROMETRY [facility] Start: 1964 Depression Screening Depression Scre ening [facility] Start: 1952 COVID-19 VACCINE (#1) COVID-19 VACCI NE (#1) [facility] Start: 1952 Medicare Annual Well ness Visit Medicare Annual Wellness Visit [facility] MG Breast - left Screening [facility] MG Breast - left Screening [facility] MG Breast - left Screening [facility] XR Hip - right 3 Views XR hip ri ght 2 or 3 views Imaging Routine Acute right hip pain 12/19/2023 10:12 AM EDT [facility] Work [facility]: [facility] Immunizations Immunization Date Immunization Notes Care Provider Fa cili 01-05-2020 influenza (HD-IIV4) vaccine, age 65+ yr, high dose, quadrivalent, PF (FLUZONE HIGH-DOSE) Alesha Schulte MD Work Phone: [facility] 01-05-2020 influenza virus vacc ine, unspecified formulation Alesha Schulte MD Work Phone: [facility] 01-25-2018 pneumococcal polysaccharide vaccine, 23 valent Alesha Schulte MD Work Phone: [facility] 10-20-2017 pneumococcal conjuga te vaccine, 13 valent Alesha Schulte MD Work Phone: [facility] 09-17-2015 pneumococcal polysaccharide vaccine, 23 valent Alesha Schulte MD Work Phone: [facility] 06-09-2015 influenza, injectabl e, quadrivalent, preservative free Alesha Schulte MD Work Phone: [facility] 09-18-2014 zoster vaccine, live Raji Schulte MD Work Phone: [facility] 09-18-2014 zoster vaccine, unspecified formulation Lynsey Saldana MD Work Phone: [facility] [employer] 01-30-2009 novel influenza-H1N1 -09, preservative-free, injectable Alesha Schulte MD Work Phone: [facility] Payers Date Payer Category Payer Commercial Indemnity [facility] [id number] 2018 Private Health Insurance [id number] 2018 Unknown [id number] 1.13.159.2. [id number] 2017 Medicare [id number]. [id number]. [id number] 2016 Self-pay [id number] 1959 Medicare [id number] 1959 Unknown [id number] 1952 Unknown [id number] 2.16.840.1.880049.3.579.2. 356 1952 Unknown [id number] 2.16.840.1.961728.3.579.2. 356 1952 Unknown [id number] 2.16.840.1.420253.3.579.2. 356 1952 Unknown [id number] 2.16.840.1.818027.3.579.2. 593 1952 Unknown [id number] 2.16.840.1.790895.3.579.2. 593 1952 Unknown [id number] 2.16.840.1.558900.3.579.2. 593 1952 Unknown [id number] 2.16.840.1.314083.3.579.2. 593 1952 Unknown [id number] 2.16.840.1.933489.3.579.2. 593 1952 Unknown [id number] 2.16.840.1.735590.3.579.2. 593 1952 Unknown [id number] 2.16.840.1.335583.3.579.2. 593 1952 Unknown [id number] 2.16.840.1.979350.3.579.2. 593 1952 Unknown [id number] 2.16.840.1.592854.3.579.2. 593 1952 Unknown [id number] 2.16.840.1.335701.3.579.2. 593 1952 Unknown [id number] 2.16.840.1.861960.3.579.2. 593 1952 Unknown [id number] 2.16.840.1.786799.3.579.2. 593 1952 Unknown [id number] 2.16.840.1.379360.3.579.2. 593 1952 Unknown [id number] 2.16.840.1.697462.3.579.2. 593 1952 Unknown [id number] 2.16.840.1.367601.3.579.2. 1286 1952 Unknown [id number] 2.16.840.1.432405.3.579.2. 1259 1952 Unknown [id number] 2.16.840.1.661672.3.579.2. 1259 1952 Unknown [id number] 2.16.840.1.858349.3.579.2. 1259 1952 Unknown [id number] 2.16.840.1.866772.3.579.2. 1259 1952 Unknown [id number] 2.16.840.1.595067.3.579.2. 1259 1952 Unknown [id number] 2.16.840.1.995815.3.579.2. 196 1952 Unknown [id number] 2.16.840.1.365485.3.579.2. 196 1952 Unknown [id number] 2.16.840.1.025916.3.579.2. 196 1952 Unknown [id number] 2.16.840.1.519299.3.579.2. 196 Unknown [id number] Unknown [id number] 2.16.840.1.373125.3.579.2. 531 Social History Date Type Detail Facility Start: 02-27-2019 End: 01-21-2021 Tobacco smoking status NHIS Never smoked tobacco (finding) [facility] Start: 1950 Sex Assigned At Female [facility] Start: 02-27-2019 End: 09-14-2022 Tobacco use and exposure Smokeless tobacco non-user [facility] Start: 09-18-2019 End: 10-22-2024 Alcohol intake Current drinker of alcohol (finding) [facility] Start: 09-18-2019 History SDOH Alcohol Frequency 2 [facility] Start: 09-18-2019 History SDOH Alcohol Std Drinks 1 [facility] Start: 02-27-2019 Alcohol Comment a glass of wine once every 2-3 months [facility] Start: 1950 Sex Assigned At Not on file [facility] Start: 02-27-2019 End: 04-18-2024 History of Social function [facility] Start: 02-27-2019 End: 04-18-2024 Alcohol Use Disorder Identification Test - Consumption [AUDIT-C] [facility] Frequency of Alcohol Consumption Monthly or less [facility] Start: 09-25-2022 End: 07-24-2024 Alcohol intake Lifetime non-drinker (finding) [facility] Start: 09-25-2022 Alcohol Comment caffeine intake: 2-3 cups per day [facility] Start: 09-14-2022 Gender identity Identifies as female gender (finding) [facility] Start: 09-14-2022 Sexual orientation Heterosexual (finding) [facility] Start: 07-14-2023 Alcoholic beverage intake Ex-drinker (finding) [facility] Start: 01-17-2020 Alcohol Comment very rare [facility] Start: 11-03-2015 Sex Female (finding) [facility] Medical Equipment Procedure Code Equipment Code Equipment Origin al Text Equipment Identifier Dates Lens Acrysof Iq Toric 6mm +24.5 Diopter +6 Cylinder 0 D Biconvex Acrylic 13 - [id number] Start: 03-14-2019 Comment on above: Description: -0.57 Lens Acrysof Iq Toric Stableforce 6mm 0 D +22.5 Diopter +2.25 Cylinder - [id number] Start: 03-21-2019 Comment on above: Description: -0.80 Istent Inject - [id number] Start: 03-14-2019 Istent Inject - [id number] Start: 03-21-2019 Cmnt Bn Bio 40gm Rpl [id number] - Sna - [id number] Start: 02-12-2020 Ins Artc 3-5 E-F 11mm Kn Rt Ps - Sna - [id number] SNA, [id number] FDA Start: 02-12-2020 Cmpt Fem 5 Kn Rt Persona Strl - Sna - [id number] Start: 02-12-2020 Cmpt Ptlr 32mm Persona Alply - Sna - [id number] Start: 02-12-2020 Bsplt Tib 5d E K n Rt Stm - Sna - [id number] Start: 02-12-2020 Clinical Notes 01-04-2017 to 10-22-2024 Alesha Schulte MD - 10/22/2024 11:34 AM EDTTelephone Encounter - Jose Alberto Powers NP - 07/25/2024 3:52 PM EDTTelephone Encounter - Jose Alberto Powers NP - 07/25/2024 3:52 PM EDT Note Date & Type Note Facility 10-22-2024 Note Date of Procedure 10/22/2024. Cleaning Laborer Information Portable Machine Cutter: JOSIE. Reliability Right Eye Good. Left Eye Good. Interpretation Right Eye Normal. Left Eye Normal. [facility] 10-22-2024 Note Date of Procedure 10/22/2024. Cleaning Laborer Information Portable Machine Cutter: JOSIE. Quality Right Eye Good. Left Eye Good. NFL Interpretation Right Eye Superior loss. Left Eye Normal. Interval Change Right Eye Worse. Left Eye Stable. [facility] 10-22-2024 Note HNO ID: [id number] Author: ALESHA SCHULTE MD Service: ? Author Type: Physician Type: Progress Notes Filed: 10/22/2024 11:39 Note Text: Tmax: 25, 26; Pachy: 548, 546 No family history Lasers and Surgeries: OD: IOL, istent 09/05/2023 SLT for IOP 22 --> 17 OS: IOL, istent Ocular Medication Intol and Non-efficacy: - Referred by Dr Saul Current Ophthalmic Meds cycloSPORINE (RESTASIS) 0.05 % ophthalmic emulsion 1 drop two times a day OU -HVF OD full; OS full -OCT OD Sup loss (PPA); OS normal - GCA Glaucoma suspect right eye>left eye OCt sl worse right eye - History of elevated IOP Prior to I- stent OU and SLT OD - Start Latanoprost at bedtime both eyes Follow up 2-3 months VATA PCIOL both eyes - Doing well I, Alesha [...] its relevant components. Alesha Schulte MD October 22, 2024 [facility] 10-22-2024 History of Present illness Narrative Tmax: 25, 26; Pachy: 548, 546 No family history Lasers and Surgeries: OD: IOL, istent 09/05/2023 SLT for IOP 22 --> 17 OS: IOL, istent Ocular Medication Intol and Non-efficacy: - Referred by Dr Kg Current Ophthalmic Meds cycloSPORINE (RESTASIS) 0.05 % ophthalmic emulsion 1 drop two times a day OU -HVF OD full; OS full -OCT OD Sup loss (PPA); OS normal - GCA Glaucoma suspect right eye>left eye OCt sl worse right eye - History of elevated IOP Prior to I- stent OU and SLT OD - Start Latanoprost at bedtime both eyes Follow up 2-3 months VATA PCIOL both eyes - Doing well I, Alesha [...] its relevant components. Alesha Schulte MD October 22, 2024 documented in this encounter [facility] 07-25-2024 Telephone encounter Note Allergies reviewed. Rx sent [facility] 07-25-2024 Miscellaneous Notes Allergies reviewed. Rx sent Pt called and stated she had LT TKA sx on 02/12/2020 and will be having a tooth capped on 08/20/24 and would need an antibiotic called into [facility]. Allegies: Sulfa Her call back [phone] documented in this encounter [facility] 07-25-2024 Telephone encounter Note Pt called and stated she had LT TKA sx on 02/12/2020 and will be having a tooth capped on 08/20/24 and would need an antibiotic called into [facility]. Allegies: Sulfa Her call back [phone] [facility] 07-24-2024 History of Present illness Narrative Subjective [...] unspecified 04/29/2022 Anticoagulant long-term use 02/02/2019 Other correction (current) drug therapy 03/22/2022 Arthritis of right knee 02/12/2020 Artificial knee joint present 02/14/2020 Breast cancer (CMS/HCC) 09/14/2022 Breast cancer screening 07/05/2022 Unspecified sprain of right wrist, initial encounter 03/22/2022 COPD (chronic obstructive pulmonary disease) (CMS/HCC) 09/14/2022 Difficulty walking 02/14/2020 Drug side effects 12/05/2018 Elevated blood pressure reading without diagnosis of hypertension 04/29/2022 Fall on same level from slipping, tripping and stumbling without subsequent striking against object, initial encounter 03/22/2022 Hyperopia with presbyopia of both eyes 02/22/2019 Impingement of right ankle joint 01/03/2019 Iron deficiency anemia, unspecified 01/21/2022 Localized edema 09/03/2021 Mixed hyperlipidemia ([facility]) 04/28/2022 Osteoarthritis of knee 09/06/2016 Unilateral primary osteoarthritis, left knee 09/14/2022 Other abnormal glucose 04/29/2022 Other chronic pain 10/18/2016 Pain in right knee 01/08/2018 Palpitations 04/29/2022 PCO (posterior capsular opacification), bilateral 09/18/2019 Peripheral vascular disease, unspecified ([facility]) 11/10/2018 Personal history of other endocrine, nutritional and metabolic disease 07/05/2022 Primary open-angle glaucoma, bilateral, mild stage 02/22/2019 Pseudophakia of both eyes 09/18/2019 Pulmonary embolism 09/14/2022 Thrush 08/10/2018 Vasculitis ([facility]) 02/10/2017 Venous insufficiency (chronic) (peripheral) 08/27/2021 Other specified disorders of bone, ankle and foot 08/18/2023 Past Medical History: Diagnosis Date Asthma All my life Bunion COVID-19 04/2021 CTS (carpal tunnel syndrome) Fracture of wrist 2021 Hammer toe Migraine 50 years ago Past Surgical History: Procedure Laterality Date BUNIONECTOMY Left 09/2007 x2 CARPAL TUNNEL RELEASE Right FOOT SURGERY Right 09/2022 SPUR REMOVED- DR VALENTINO FOOT SURGERY Left 01/2023 GREAT TOE REPLACED/HAMMER TOE/SHORTENED - DR VALENTINO MASTECTOMY Right 02/19/2015 OTHER SURGICAL HISTORY Right 10/2003 RT knee arthroscopy MD KNEE SCOPE,DIAGNOSTIC Right 10/[address] TIAN TOE SURGERY Right 2019 Plate and screw placement in right big toe - Dr. Valentino TOTAL KNEE ARTHROPLASTY Right 02/12/2020 PERSONA PER [...] for vasomotor rhinitis documented in this encounter [facility] 07-12-2024 Evaluation + Plan note Associated Problem(s): Lymphedema Lymphedema education provided. Referred to the lymphedema clinic. Complex decongestive therapy and maintenance. [facility] 07-12-2024 Miscellaneous Notes Associated Problem(s): Lymphedema Lymphedema education provided. Referred to the lymphedema clinic. Complex decongestive therapy and maintenance. documented in this encounter [facility] 07-12-2024 History of Present illness Narrative Images from the original note were not included. To: KENYETTA REYNOLDS MD HPI: Myla Pollack is a 74 [...] daily (Patient not taking: Reported on 09/25/2021) knyzdhhzts-xbcpuynymqvxi-oene (FIORICET, ESGIC) 50-325-40 mg per tablet Take [...] the evening. 5 mg M-W-F, 7.5 mg Yau-Ifnd-Qshew-Sat . (Patient not taking: Reported on 07/12/2024) No current facility-administered medications on file prior to visit. Past Medical History: Past Medical History: Diagnosis Date Acute cystitis without hematuria Asthma COPD (chronic obstructive pulmonary disease) ([facility]) Headache Hyperlipidemia Osteoarthritis right knee Pulmonary embolism ([facility]) Thrush top partial Vasculitis ([facility]) Visual impairment readers Past Surgical [...] Performed by Leonardo Boudreaux Jr., DO at [facility] Social and Family History: Social History [...] for your understanding. documented in this encounter [facility] 04-18-2024 Note HNO ID: [id number] Author: CK GONZALEZ, MALA Service: ? Author Type: OIL FIELD CASER Type: Progress Notes Filed: 04/18/2024 11:22 Note [...] Gonzalez, OD April 18, 2024 11:21 AM [facility] 04-18-2024 History of Present illness Narrative [...] 2024 11:21 AM documented in this encounter [facility] 04-09-2024 History of Present illness Narrative Images from the original note were not included. HISTORY OF PRESENT ILLNESS: EST PT Myla Pollack is an 73 y.o. @ female. (EST PT) NEW COMPLAINT, (R) SHOULDER DISCOMFORT. SYMPTOMS FOR ABOUT 2 MONTHS, NO KNOWN INJURY. XRAYS 03/08/24 @ [facility] MRI, (R) SHOULDER & C-SPINE 04/02/24 @ [facility] INTERMITTENT RT DIFFUSE RT SHOULDER, ARM, AND [...] Use: Not At Risk (02/27/2019) Received from [facility], [facility] AUD[facility]C Frequency of Alcohol Consumption: Monthly or [...] requiring urgent evaluation. documented in this encounter [facility] 12-19-2023 History of Present illness [...] Use: Not At Risk (02/27/2019) Received from [facility], [facility] Frequency of Alcohol Consumption: Monthly or [...] requiring urgent evaluation. documented in this encounter [facility] 10-17-2023 History of Present illness Narrative Tmax: [...] October 17, 2023 documented in this encounter [facility] 09-05-2023 Note Date of Procedure 09/05/2023 [place] Protocol Safety Checklist Sign In: A moment [...] Post-procedure follow up management communicated. No specimens. [facility] 09-05-2023 History of Present illness [...] September 05, 2023 documented in this encounter [facility] 07-27-2023 Note Date of Procedure 07/27/2023. Cleaning Laborer Information Portable Machine Cutter: pd. Reliability Right Eye Good. Left Eye Good. Interpretation Right Eye Normal. Left Eye Normal. [facility] 07-27-2023 Note Date of Procedure 07/27/2023. Cleaning Laborer Information Portable Machine Cutter: JF. Quality Right Eye Good. Left Eye Good. NFL Interpretation Right Eye Superior loss. Left Eye Normal. [facility] 07-27-2023 History of Present illness Narrative Tmax: 25, 26; Pachy: 548, 546 Lasers and Surgeries: OD: IOL, istent OS: IOL, istent Ocular Medication Intol and Non-efficacy: - Referred by Dr Saul -[facility] 07/05/22 OD full OS full -OCT 07/06/23 OD ? Sup loss OS normal - Glaucoma suspect right eye>left eye OCt sl worse right eye No family history SLT. Right eye next visit IOL both eyes IAlesha MD, have confirmed [...] its relevant components. documented in this encounter [facility] 07-14-2023 Evaluation + Plan note Associated Problem(s): Lymphedema Compression therapy leg elevation and follow up in the clinic in 1 year. [facility] 07-14-2023 Miscellaneous Notes Associated Problem(s): Lymphedema Compression therapy leg elevation and follow up in the clinic in 1 year. documented in this encounter [facility] 07-14-2023 History of Present illness Narrative [...] 1 tablet by mouth in the morning. ocasxfqckj-hckmtflrrnlqi-zlvm (FIORICET, ESGIC) 50-325-40 mg per tablet Take [...] by mouth in the evening. 5 mg M-W-, 7.5 mg Hhw-Fxzm-Pwaim-Sat . anastrozole (ARIMIDEX) 1 mg chemo tablet [...] hematuria Asthma COPD (chronic obstructive pulmonary disease) ([facility]) Headache Hyperlipidemia Osteoarthritis right knee Pulmonary embolism ([facility]) Thrush top partial Vasculitis ([facility]) Visual impairment readers Past Surgical History: Past [...] Performed by Leonardo Boudreaux Jr., DO at [facility] Social and Family History: Social History [...] Lynsey Saldana MD, TREVIN, RPVI, FSVS, FACS [facility] [employer] [facility] This note was created with the assistance of a speech recognition program. While intending to generate a timely document that accurately reflects the content of the visit, no guarantee can be provided that every grammatical or spelling mistake has been or will be identified or corrected. Thank you for your understanding. documented in this encounter [facility] 01-17-2023 History of Present illness Narrative [...] its relevant components. documented in this encounter [facility] 07-05-2022 History of Present illness Narrative Tmax: [...] its relevant components. documented in this encounter [facility] 03-19-2022 Note PROCEDURE: XR WRIST RT MIN 3 V HISTORY: Unspecified fall ; acute right wrist pain after falling COMPARISON: None. FINDINGS: BONES:No fracture, acute abnormality, or significant arthropathy. SOFT TISSUES:No visible soft tissue swelling. EFFUSION:None visible. OTHER: Negative. IMPRESSION: 1. No acute bone abnormality. 2. Multifocal mild degenerative changes. Electronically authenticated by: ADIEL MCCONNELL Date: 2022-03-19 10:26 [facility] 03-11-2022 Miscellaneous Notes *SECOND ATTEMT* Called patient and LVM for her to call back and schedule an appt with for glaucoma suspect. Referral from Dr. Sebastian. Called patient and LVM to schedule an appointment with Dr. Schulte for GLC suspect. documented in this encounter [facility] 01-21-2022 Progress note Note Date/Time January 21, 2022 10:[address] [place] [address] Hem/Onc Follow Up Note - OP Signed Patient: Myla Pollack MR#: [id number] : 1950 Acct:[id number] Age/Sex: 71 / F Type: REG RCR [...] or breast tenderness. No recent f/u by mig welder in [place]--was reported to have vasculitis 4 years ago--now resolved but still has some mild erythema and swelling of left greater than right leg without pain. Receives Anastrozole due to weak MD expression--no significant myalgias/arthralgias or hot flashes. No [...] pT1c, N0, M0. Tumor was ER negative, MD weak, and HER-2 nonamplified. She underwent right mastectomy at [place] in 02/2015. Completed dose dense AC X4 [...] years of adjuvant therapy. 3. Evaluated by mig welder in [place] (does not believe she had vasculitis)--no recent [...] inflammatory. She was referred to pulmonary at [place]. Ground glass opacities resolved on PET/CT 08/2017. [...] of Therapies: 1. Right breast mastectomy at [facility] (Dr. Rodriguez) in 02/2015. 2. Completed [...] nodes positive, pT1c, N0, M0. ER negative, MD weak, and HER-2 nonamplified. (1) Breast cancer, right Qualifiers: Estrogen receptor status: negative Patient sex: female 1. 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 ER negative, MD weak, and HER-2 nonamplified. 2. She underwent mastectomy at [place] in 02/2015. Completed dose dense AC X4 and Taxol X 12 in August 2015. 3. 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 Anastrozole was resumed in 03/2017 4. Saw mig welder in [place] for persistent leg pain and swelling (he [...] inflammatory. She was referred to pulmonary at [place]. --Followup PET/CT 08/2017 showed resolution of prior [...] for coordination of care (as documented) and atxk-mt-zjks counseling of patient and/or family. Dictated By: Claire Duran APRN DD/ [id number] Signed By: <Electronically signed by CHIDI Duran> 01/21/22 [address] [facility] Work Phone: 1(223) 858-133310-20-2021 Progress note Author Kacie Garay [facility] January 21, 2021 8:25pm Note Date/Time January 21, 2021 1 0:34am [facility] [place] at [address] [address] Hem/Onc Follow Up Note - OP Signed Patient: Myla Pollack MR#: [id number] : 1950 Acct:[id number] Age/Sex: 70 / F Type: REG RCR [...] we will now follow annually [facility] but patient wishes to return to oncology). We will arrange her annual follow-ups after her annual mammograms in January of each year. She also requested refill of breast prosthesis and mastectomy bra. No breast exam due to telephone visit. No skin changes or breast tenderness. No recent f/u by mig welder in [place]--was reported to have vasculitis 4 years ago--now resolved but still has some mild erythema and swelling of left greater than right leg without pain. Receives Anastrozole due to weak MD expression--no significant myalgias/arthralgias or hot flashes. No [...] pT1c, N0, M0. Tumor was ER negative, MD weak, and HER-2 nonamplified. She underwent right mastectomy at [place] in 02/2015. Completed dose dense AC X4 [...] years of adjuvant therapy. 3. Evaluated by mig welder in [place] (does not believe she had vasculitis)--no recent [...] inflammatory. She was referred to pulmonary at [place]. Ground glass opacities resolved on PET/CT 08/2017. [...] of Therapies: 1. Underwent right mastectomy at [place] in 02/2015. 2. Completed dose dense AC [...] nodes positive, pT1c, N0, M0. ER negative, MD weak, and HER-2 nonamplified. (1) Breast cancer, right Qualifiers: Estrogen receptor status: negative Patient sex: female 1. 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 ER negative, MD weak, and HER-2 nonamplified. 2. She underwent mastectomy at [place] in 02/2015. Completed dose dense AC X4 and Taxol X 12 in August 2015. 3. 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 Anastrozole was resumed in 03/2017 4. Saw mig welder in [place] for persistent leg pain and swelling (he [...] inflammatory. She was referred to pulmonary at [place]. --Followup PET/CT 08/2017 showed resolution of prior [...] for coordination of care (as documented) and jpci-[id number]-dmih counseling of patient and/or family. Dictated By: Kacie Garay MD DD/ [id number] Signed By: <Electronically signed by MD Kacie Garay> 01/21/212024 [facility] Work Phone: 1(545) 311-445504-19-2021 Progress note Author Kacie Garay [facility] July 21, 2020 11:38am Note Date/Time July 21, 2020 9:3 9am [facility] [place] [address] Hem/Onc Follow Up Note - OP Signed Patient: Myla Pollack MR#: [id number] : 1950 Acct:[id number] Age/Sex: 70 / F Type: REG RCR Copies to: Kenyetta Reynolds MD~ Subjective Date/Time of Service: Date of Service: 07/21/2020 Time of Service: 09:36 Chief Complaint: Patient has consented to doxy visit for 4 month follow up visitfor breast cancer and to review bone densitometry test. HPI: Patient had video visit (doxy.mo) today for 4-month follow-up and review of [...] or breast tenderness. No recent f/u by mig welder in [place]--was reported to have vasculitis 4 years ago--now resolved but still has some mild erythema and swelling of left greater than right leg without pain. Receives Anastrozole due to weak MD expression--no significant myalgias/arthralgias or hot flashes. No [...] pT1c, N0, M0. Tumor was ER negative, MD weak, and HER-2 nonamplified. She underwent right mastectomy at [place] in 02/2015. Completed dose dense AC X4 [...] years of adjuvant therapy. 3. Evaluated by mig welder in [place] (does not believe she had vasculitis)--no recent [...] inflammatory. She was referred to pulmonary at [place]. Ground glass opacities resolved on PET/CT 08/2017. [...] of Therapies: 1. Underwent right mastectomy at [place] in 02/2015. 2. Completed dose dense AC [...] nodes positive, pT1c, N0, M0. ER negative, MD weak, and HER-2 nonamplified. (1) Breast cancer, right Qualifiers: Estrogen receptor status: negative Patient sex: female 1. 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 ER negative, MD weak, and HER-2 nonamplified. 2. She underwent mastectomy at [place] in 02/2015. Completed dose dense AC X4 and Taxol X 12 in August 2015. 3. 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 Anastrozole was resumed in 03/2017 4. Saw mig welder in [place] for persistent leg pain and swelling (he [...] inflammatory. She was referred to pulmonary at [place]. --Followup PET/CT 08/2017 showed resolution of prior [...] for coordination of care (as documented) and yjaa-jo-duul counseling of patient and/or family. Dictated By: Kacie Garay MD DD/ 5 Signed By: <Electronically signed by MD Kacie Garay> 07/21/20 [address] [facility] Work Phone: [phone]) 522-452312-09-2020 Progress note Author Kacie Garay [facility] March 12, 2020 2:49pm Note Date/Time March 12, 2020 9 :56am [facility] [place] [address] Hem/Onc Follow Up Note - OP Signed Patient: Myla Pollack MR#: [id number] : 1950 Acct:[id number] Age/Sex: 69 / F Type: REG RCR [...] or breast tenderness. No recent f/u by mig welder in [place]--was reported to have vasculitis 4 years ago--now resolved but still has some mild erythema and swelling of left greater than right leg without pain. Receives Anastrozole due to weak MD expression--no significant myalgias/arthralgias or hot flashes. No [...] pT1c, N0, M0. Tumor was ER negative, MD weak, and HER-2 nonamplified. She underwent right mastectomy at [place] in 02/2015. Completed dose dense AC X4 [...] of extended adjuvant therapy. 3. Evaluated by mig welder in [place] (does not believe she had vasculitis)--no recent [...] inflammatory. She was referred to pulmonary at [place]. Ground glass opacities resolved on PET/CT 08/2017. [...] of Therapies: 1. Underwent right mastectomy at [place] in 02/2015. 2. Completed dose dense AC [...] lymph nodes positive, pT1c, N0,M0. ER negative, MD weak, and HER-2 nonamplified. 2. She underwent mastectomy at [place] in 02/2015. Completed dose dense AC X4 and Taxol X 12 in August 2015. 3. 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 Anastrozole was resumed in 03/2017 4. Saw mig welder in [place] for persistent leg pain and swelling (he [...] inflammatory. She was referred to pulmonary at [place]. --Followup PET/CT 08/2017 showed resolution of prior [...] for coordination of care (as documented) and efvf-uh-sfal counseling of patient and/or family. Dictated By: Kacie Garay MD DD/ [id number] Signed By: <Electronically signed by MD Kacie Garay> 03/12/20 [address] [facility] Work Phone: 1([phone]) 356-833406-03-2020 Progress note Author Kacie Garay [facility] September 05, 2019 1:07pm Note Date/Time September 05, 2019 10:57 am [facility] [place] [address] Hem/Onc Follow Up Note - OP Signed Patient: Myla Pollack MR#: [id number] : 1950 Acct:[id number] Age/Sex: 69 / F Type: REG RCR [...] or breast tenderness. No recent f/u by mig welder in [place]--was reported to have vasculitis 3 years ago--now resolved but still has some mild erythema and swelling of left greater than right leg without pain. Receives Anastrozole due to weak MD expression--no significant myalgias/arthralgias or hot flashes. No [...] pT1c, N0, M0. Tumor was ER negative, MD weak, and HER-2 nonamplified. She underwent right mastectomy at [place] in 02/2015. Completed dose dense AC X4 and Taxol X 12 in August 2015. 2. Anastrozole with calcium and vitamin D started in August 2015. Calcium and vitamin D discontinued 07/2016 Anastrozole stopped in 01/2017 when she developed vasculitis (erythematous rash over legs) although no proven association at this time. Anastrozole was resumed in 03/2017 3. Evaluated by mig welder in [place] (does not believe she had vasculitis)--no recent [...] inflammatory. She was referred to pulmonary at [place]. Ground glass opacities resolved on PET/CT 08/2017. [...] of Therapies: 1. Underwent right mastectomy at [place] in 02/2015. 2. Completed dose dense AC [...] nodes positive, pT1c, N0, M0. ER negative, MD weak, and HER-2 nonamplified. 2. She underwent mastectomy at [place] in 02/2015. Completed dose dense AC X4 and Taxol X 12 in August 2015. 3. 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 Anastrozole was resumed in 03/2017 4. Saw mig welder in [place] for persistent leg pain and swelling (he [...] inflammatory. She was referred to pulmonary at [place]. --Followup PET/CT 08/2017 showed resolution of prior [...] vasculitis but per second opinion from a mig welder and crosstie inspector in [place] this is not vasculitis. They told her [...] for coordination of care (as documented) and kwcd-ke-nujy counseling of patient and/or family. Dictated By: Kacie Garay MD DD/ 1058 Signed By: <Electronically signed by MD Kacie Garay> 09/05/19 1824 [facility] Work Phone: 1([phone]) [phone] History of Past illness Narrative* Problem Noted Date Resolved Date Combined forms of age-related cataract of both e yes 02/22/2019 03/21/2019 documented as of this encounter (statuses as of 03/11/2022) [facility]11-21-2019 History of Past illness Narrative* Problem Noted Date Resolved Date Combined forms of age-related cataract of both e yes 02/22/2019 03/21/2019 documented as of this encounter (statuses as of 07/05/2022) [facility] History of Past illness Narrative* Problem Noted Date Diagnosed Date Resolved Date Combined forms of age-relate d cataract of both eyes 02/22/2019 03/21/2019 documented as of this encounter (statuses as of 01/17/2023) [facility]2019 Progress note Author Kacie Garay [facility] January 22, 2019 9:28pm Note Date/Time January 22, 2019 1 0:40[facility] [place] [address] Hem/Onc Follow Up Note - OP Signed Patient: Myla Pollack MR#: [id number] : 1950 Acct:[id number] Age/Sex: 68 / F Type: REG RCR [...] or breast tenderness. [place] reported to have vasculitis 2 1/2 years ago--now resolved. Receives Anastrozole due to weak MD expression--no significant myalgias/arthralgias or hot flashes. No bowel or bladder complaints. No interval changes in medical history. We reviewed DEXA scan showing normal bone density 07/17/2018. DIAGNOSIS: 1. 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 Tumor was ER negative, MD weak, and HER-2 nonamplified. She underwent right mastectomy at [place] in 02/2015. Completed dose dense AC X4 and Taxol X 12 in August 2015. 2. Anastrozole with calcium and vitamin D started in August 2015. Calcium and vitamin D discontinued 07/2016 Anastrozole stopped in 01/2017 when she developed vasculitis (erythematous rash over legs) although no proven association at this time. Anastrozole was resumed in 03/2017 3. Evaluated by mig welder in [place] (does not believe she had vasculitis)--no recent [...] inflammatory. She was referred to pulmonary at [place]. Ground glass opacities resolved on PET/CT 08/2017. [...] of Therapies: 1. Underwent right mastectomy at [place] in 02/2015. 2. Completed dose dense AC [...] Allergic/Immunologic: no pruritus, no reaction to drugs [facility] - History Attestation statement: The following information [...] nodes positive, pT1c, N0, M0. ER negative, MD weak, and HER-2 nonamplified. 2. She underwent mastectomy at [place] in 02/2015. Completed dose dense AC X4 and Taxol X 12 in August 2015. 3. 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 Anastrozole was resumed in 03/2017 4. Saw mig welder in [place] for persistent leg pain and swelling (he [...] inflammatory. She was referred to pulmonary at [place]. --Followup PET/CT 08/2017 showed resolution of prior [...] vasculitis but per second opinion from a mig welder and crosstie inspector in [place] this is not vasculitis. They told her [...] for coordination of care (as documented) and ngkr-vo-fveg counseling of patient and/or family. Dictated By: Kacie Garay MD DD/ 1039 Signed By: <Electronically signed by MD Kacie Garay> 01/22/19 2391 [facility] Work Phone: [phone] Progress note Author Kacie Garay [facility] July 19, 2018 8:36pm Note Date/Time July 19, 2018 10: 48am [facility] [place] [address] Hem/Onc Follow Up Note - OP Signed Patient: Myla Pollack MR#: [id number] : 1950 Acct:[id number] Age/Sex: 68 / F Type: REG RCR [...] pT1c, N0, M0. Tumor was ER negative, MD weak, and HER-2 nonamplified. She underwent right mastectomy at [place] in 02/2015. Completed dose dense AC X4 and Taxol X 12 in August 2015. 2. Anastrazole with calcium and vitamin D started in August 2015, Calcium and vitamin D discontinued 07/2016 Anastrozole stopped in 01/2017 when she developed vasculitis (erythematous rash over legs) although no proven association at this time. Anastrozole was resumed in 03/2017 3. Evaluated by mig welder in [place] (does not believe she had vasculitis)--no recent [...] inflammatory. She was referred to pulmonary at [place]. Ground glass opacities resolved on PET/CT 08/2017. [...] or breast tenderness. [facility] reported to have vasculitis 2 years ago--now resolved. Receives Anastrozole due to weak MD expression--no significant myalgias/arthralgias or hot flashes. No bowel or bladder complaints. No interval changes in medical history. We reviewed DEXA scan showing normal bone density 07/17/2018. - Summary of Therapies Summary of Therapies: 1. Underwent right mastectomy at [place] in 02/2015. 2. Completed dose dense AC [...] scan 07/17/2018 reviewed--normal. Annual bilateral mammography at [place] 01/2018--ordered 6 month f/u mammogram prior to next f/u. Assessment and Plan (1) Breast cancer, right Qualifiers: Estrogen receptor status: negative Patient sex: female 1. 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 ER negative, MD weak, and HER-2 nonamplified. 2. She underwent mastectomy at [place] in 02/2015. Completed dose dense AC X4 and Taxol X 12 in August 2015. 3. Anastrazole with calcium and vitamin D started in August 2015, Calcium and vitamin D discontinued 07/2016 Anastrozole stopped in 01/2017 when she developed vasculitis although there is no proven association at this time. Anastrozole was resumed in 03/2017 4. Seeing mig welder in [place] for persistent leg pain and swelling (he [...] inflammatory. She was referred to pulmonary at [place]. --Followup PET/CT 08/2017 showed resolution of prior [...] unless new symptoms arise. Annual mammogram at [place] prior to next followup. DEXA normal--f/u in [...] vasculitis but per second opinion from a mig welder and crosstie inspector in [place] this is not vasculitis. They told her [...] for coordination of care (as documented) and hzti-xw-vlrb counseling of patient and/or family. Dictated By: Kacie Garay MD DD/ 1048 Signed By: <Electronically signed by MD Kacie Garay> 07/19/182035 [facility] Work Phone: [phone] Progress note Author Kacie Garay [facility] January 18, 2018 8:17pm Note Date/Time January 17, 2018 3 :44pm [facility] [place] [id number] Hem/Onc Follow Up Note - OP Signed Patient: Myla Pollack MR#: [id number] : 1950 Acct:[id number] Age/Sex: 67 / F Type: REG RCR [...] pT1c, N0, M0. Tumor was ER negative, MD weak, and HER-2 nonamplified. She underwent right mastectomy at [place] in 02/2015. Completed dose dense AC X4 and Taxol X 12 in August 2015. 2. Anastrazole with calcium and vitamin D started in August 2015, Calcium and vitamin D discontinued 07/2016 Anastrazole stopped in 01/2017 when she developed vasculitis although thereis no proven association at this time. Anastrozole was resumed in 03/2017 3. Now follows with rhematologist in [place] (does not believe she had vasculitis). 4. [...] inflammatory. She was referred to pulmonary at [place]. Ground glass opacities resolved on PET/CT 08/2017. 5. A focus of increased uptake in the liver of uncertain significance was also identified. On MRI of the liver there was no abnormality found. HPI: Patient returns to the clinic for transfer of care from Dr. Steiner. No changes on self breast exam. No skin changes or breast tenderness. She is seeing a mig welder in [place]--was reported to have vasculitis of legs about a yearago. Receives Anastrozole due to weak MD expression--no significant myalgias/arthralgias or hot flashes. No bowel or bladder complaints. - Summary of Therapies Summary of Therapies: 1. Underwent right mastectomy at [place] in 02/2015. 2. Completed dose dense AC [...] % (Auto) 27.4 % (.) 01/03/17 17:45 Grant % (Auto) 12.7 % (.) 01/03/17 17:45 Eos % (Auto) 1.5 % (.) 01/03/17 17:45 Baso % (Auto) 0.6 % (.) 01/03/17 17:45 Neut # (Auto) 4.4 x10E3/uL (1.8-7.7) 01/03/17 17:45 Lymph # (Auto) 2.1 x10E3/uL (1.00-4.8) 01/03/17 17:45 Grant # (Auto) 1.0 x10E3/uL (0.0-0.8) H 01/03/17 [...] where applicable. 01/11/2018--left diagnostic mammogram reviewed from [facility] Left breast stable with scattered benign appearing calcifications and benign appearing lymph nodes. BIRADS 2--Benign findings. Assessment and Plan (1) Breast cancer, right Qualifiers: Estrogen receptor status: negative Patient sex: female Status: Chronic 1. 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 ER negative, MD weak, and HER-2 nonamplified. 2. She underwent mastectomy at [place] in 02/2015. Completed dose dense AC X4 and Taxol X 12 in August 2015. 3. Anastrazole with calcium and vitamin D started in August 2015, Calcium and vitamin D discontinued 07/2016 Anastrazole stopped in 01/2017 when she developed vasculitis although there is no proven association at this time. Anastrozole was resumed in 03/2017 4. Seeing mig welder in [place] for persistent leg pain and swelling (he [...] inflammatory. She was referred to pulmonary at [place]. Followup PET/CT 08/2017 showed resolution of prior [...] vasculitis but per second opinion from a mig welder and crosstie inspector in [place] this is not vasculitis. They told her [...] for coordination of care (as documented) and wzxh-wa-wanr counseling of patient and/or family. 25 - 35 minutes Dictated By: Kacie Garay MD DD/ 1543 Signed By: <Electronically signed by Kacie Garay MD> 01/18/182016 [facility] Work Phone: [phone] Progress note Author Mohsen Steiner [facility] August 18, 2017 3:25pm Note Date/Time August 18, 2017 3:23p m [facility] [place] [address] Hem/Onc Follow Up Note - OP Signed Patient: Myla Pollack MR#: [id number] : 1950 Acct:[id number] Age/Sex: 67 / F Type: REG RCR [...] % (Auto) 27.4 % (.) 01/03/17 17:45 Grant % (Auto) 12.7 % (.) 01/03/17 17:45 Eos % (Auto) 1.5 % (.) 01/03/17 17:45 Baso % (Auto) 0.6 % (.) 01/03/17 17:45 Neut # (Auto) 4.4 x10E3/uL (1.8-7.7) 01/03/17 17:45 Lymph # (Auto) 2.1 x10E3/uL (1.00-4.8) 01/03/17 17:45 Grant # (Auto) 1.0 x10E3/uL (0.0-0.8) H 01/03/17 [...] N0, M0. 2. Tumor was ER negative, MD weak, and HER-2 nonamplified. 3. She underwent mastectomy at [place] in 02/2015. Completed dose dense AC X4 [...] inflammatory. She was referred to pulmonary at [place] 8. A focus of increased uptake in [...] vasculitis but per second opinion from a mig welder and crosstie inspector in [place] this is not vasculitis. They told her [...] for coordination of care (as documented) and hhuj-qk-kthj counseling of patient and/or family. Dictated By: Mohsen Steiner MD DD/ 1513 Signed By: <Electronically signed by Mohsen Steiner MD> 08/18/17 2472 [facility] Work Phone: [phone] Progress note Author Mohsen Steiner [facility] July 21, 2017 3:44pm Note Date/Time July 21, 2017 3:4 0pm [facility] [place] [address] Hem/Onc Follow Up Note - OP Signed Patient: Myla Pollack MR#: [id number] : 1950 Acct:[id number] Age/Sex: 67 / F Type: REG RCR Copies to: Pinky Og DO~ Subjective Date/Time of Service: Date of Service: 07/21/2017 Time of Service: 15:39 Chief Complaint: Patient here for four month follow up appointment with labs. HPI: Patient returns to the clinic for a pre-scheduled follow-up visit that reports that 1. She saw a crosstie inspector and mig welder in [place]. They do not think that she has [...] % (Auto) 27.4 % (.) 01/03/17 17:45 Grant % (Auto) 12.7 % (.) 01/03/17 17:45 Eos % (Auto) 1.5 % (.) 01/03/17 17:45 Baso % (Auto) 0.6 % (.) 01/03/17 17:45 Neut # (Auto) 4.4 x10E3/uL (1.8-7.7) 01/03/17 17:45 Lymph # (Auto) 2.1 x10E3/uL (1.00-4.8) 01/03/17 17:45 Grant # (Auto) 1.0 x10E3/uL (0.0-0.8) H 01/03/17 [...] N0, M0. 2. Tumor was ER negative, MD weak, and HER-2 nonamplified. 3. She underwent mastectomy at [place] in 02/2015. Completed dose dense AC X4 [...] inflammatory. She was referred to pulmonary at [place] 8. A focus of increased uptake in [...] vasculitis but per second opinion from a mig welder and crosstie inspector in [place] this is not vasculitis. They told her [...] for coordination of care (as documented) and hfmc-yh-vnnb counseling of patient and/or family. Dictated By: Mohsen Steiner MD DD/ 1539 Signed By: <Electronically signed by Mohsen Steiner MD> 07/21/17 1544 [facility] Work Phone: [phone] Progress note Author Mohsen Steiner [facility] March 25, 2017 11:28am Note Date/Time March 25, 2017 11:27am [facility] [place] [id number] Hem/Onc Follow Up Note - OP Signed Patient: Myla Pollack MR#: [id number] : 1950 Acct:[id number] Age/Sex: 66 / F Type: REG RCR Copies to: Pinky Og DO~ Subjective Date/Time of Service: Date of Service: 03/25/2017 Time of Service: 11:25 Chief Complaint: Patient is here to review MRI report and to follow up after seeing the offender job retention specialist. HPI: Patient returns to the clinic for a pre-scheduled follow-up visit that reports that 1. She was seen at [facility] rheumatology, and from there she was referred to a crosstie inspector in [place]. No final diagnosis has yet been made. 2. She had an MRI of the liver 3. She was seen by pulmonary in [facility] Details: All systems reviewed & no [...] Labs CBC & Chem 7: 01/03/17 17:45 10 17:45 Labs: Laboratory Last Values WBC 7.6 [...] % (Auto) 27.4 % (.) 01/03/17 17:45 Grant % (Auto) 12.7 % (.) 01/03/17 17:45 Eos % (Auto) 1.5 % (.) 01/03/17 17:45 Baso % (Auto) 0.6 % (.) 01/03/17 17:45 Neut # (Auto) 4.4 x10E3/uL (1.8-7.7) 01/03/17 17:45 Lymph # (Auto) 2.1 x10E3/uL (1.00-4.8) 01/03/17 17:45 Grant # (Auto) 1.0 x10E3/uL (0.0-0.8) H 01/03/17 [...] N0, M0. 2. Tumor was ER negative, MD weak, and HER-2 nonamplified. 3. She underwent mastectomy at [place] in 02/2015. Completed dose dense AC X4 [...] pulmonary (by her preference to a new offender job retention specialist at [facility]) 8. A focus of increased uptake in the liver of quasi-significance was also identified. On MRI of the liver there was no abnormality found (2) Pulmonary embolism Status: Chronic She is currently on warfarin (3) Vasculitis Status: Acute She is being seen by rheumatology at [facility]. (4) Lung nodules Status: Resolved Her [...] for coordination of care (as documented) and vwbi-gv-ygqd counseling of patient and/or family. Dictated By: Mohsen Steiner MD DD/ 24 Signed By: <Electronically signed by Mohsen Steiner MD> 03/25/17 1128 [facility] Work Phone: [phone] Progress note Author Mohsen Steiner [facility] March 16, 2017 3:11pm Note Date/Time March 16, 2017 2:57pm [facility] [place] [address] Hem/Onc Follow Up Note - OP Signed Patient: Myla Pollack MR#: [id number] : 1950 Acct:[id number] Age/Sex: 66 / F Type: REG RCR Copies to: Pinky Og DO~ Subjective Date/Time of Service: Date of Service: 03/16/2017 Time of Service: 14:55 Chief Complaint: Patient is here for review of [employer] reports. HPI: Patient returns to the clinic for a pre-scheduled follow-up visit that reports that 1. She was seen at [facility] rheumatology, and from there she was referred to a crosstie inspector in [place]. No final diagnosis has yet been made [...] % (Auto) 27.4 % (.) 01/03/17 17:45 Grant % (Auto) 12.7 % (.) 01/03/17 17:45 Eos % (Auto) 1.5 % (.) 01/03/17 17:45 Baso % (Auto) 0.6 % (.) 01/03/17 17:45 Neut # (Auto) 4.4 x10E3/uL (1.8-7.7) 01/03/17 17:45 Lymph # (Auto) 2.1 x10E3/uL (1.00-4.8) 01/03/17 17:45 Grant # (Auto) 1.0 x10E3/uL (0.0-0.8) H 01/03/17 [...] N0, M0. 2. Tumor was ER negative, MD weak, and HER-2 nonamplified. 3. She underwent mastectomy at [place] in 02/2015. Completed dose dense AC X4 [...] pulmonary (by her preference to a new offender job retention specialist at [facility]) 8. A focus of increased uptake in the liver of quasi-significance was also identified. MRI of the liver has been requested (2) Pulmonary embolism Status: Chronic She is currently on warfarin (3) Vasculitis Status: Acute She was seen by rheumatology at [facility]. (4) Lung nodules Status: Acute Her [...] for coordination of care (as documented) and dcrt-ko-inoa counseling of patient and/or family. Dictated By: Mohsen Steiner MD DD/ 1455 Signed By: <Electronically signed by Mohsen Steiner MD> 03/16/17 1511 [facility] Work Phone: [phone] Progress note Author Mohsen Steiner [facility] February 28, 2017 2:51pm Note Date/Time February 28, 2017 2:29pm [facility] [place] [address] Hem/Onc Follow Up Note - OP Signed Patient: Myla Pollack MR#: [id number] : 1950 Acct:[id number] Age/Sex: 66 / F Type: REG RCR Copies to: Pinky Og DO~ Subjective Date/Time of Service: Date of Service: 02/28/2017 Time of Service: 14:26 Chief Complaint: Patient here to follow up after rheumatology referral. HPI: Patient returns to the clinic for a pre-scheduled follow-up visit that reports that 1. She was seen at [facility] rheumatology ROS Details: All systems reviewed [...] % (Auto) 27.4 % (.) 01/03/17 17:45 Grant % (Auto) 12.7 % (.) 01/03/17 17:45 Eos % (Auto) 1.5 % (.) 01/03/17 17:45 Baso % (Auto) 0.6 % (.) 01/03/17 17:45 Neut # (Auto) 4.4 x10E3/uL (1.8-7.7) 01/03/17 17:45 Lymph # (Auto) 2.1 x10E3/uL (1.00-4.8) 01/03/17 17:45 Grant # (Auto) 1.0 x10E3/uL (0.0-0.8) H 01/03/17 [...] N0, M0. 2. Tumor was ER negative, MD weak, and HER-2 nonamplified. 3. She underwent mastectomy at [place] in 02/2015. Completed dose dense AC X4 [...] Acute She was seen by rheumatology at [facility]. The ordered some initial workup that [...] for coordination of care (as documented) and zadl-ht-khfk counseling of patient and/or family. Dictated By: Mohsen Steiner MD DD/ 1426 Signed By: <Electronically signed by Mohsen Steiner MD> 02/28/17 1451 [facility] Work Phone: 1([phone]) 365-616311-02-2017 Progress note Author Mohsen Steiner [facility] February 03, 2017 9:03am Note Date/Time February 03, 2017 9 :01am [facility] [place] [address] Hem/Onc Follow Up Note - OP Signed Patient: Myla Pollack MR#: [id number] : 1950 Acct:[id number] Age/Sex: 66 / F Type: REG RCR Copies to: Pinky Og DO~ Subjective Date/Time of Service: Date of Service: 02/03/2017 Time of Service: 08:58 Chief Complaint: Patient here to follow up after EGD and EUS. HPI: Patient returns to the clinic for a pre-scheduled follow-up visit that reports that 1. She had an EUS at [facility] by Dr. Tara Hess and no [...] % (Auto) 27.4 % (.) 01/03/17 17:45 Grant % (Auto) 12.7 % (.) 01/03/17 17:45 Eos % (Auto) 1.5 % (.) 01/03/17 17:45 Baso % (Auto) 0.6 % (.) 01/03/17 17:45 Neut # (Auto) 4.4 x10E3/uL (1.8-7.7) 01/03/17 17:45 Lymph # (Auto) 2.1 x10E3/uL (1.00-4.8) 01/03/17 17:45 Grant # (Auto) 1.0 x10E3/uL (0.0-0.8) H 01/03/17 [...] N0, M0. 2. Tumor was ER negative, MD weak, and HER-2 nonamplified. 3. She underwent mastectomy at [place] in 02/2015. Completed dose dense AC X4 [...] Status: Acute She was referred to the [facility] but her appointment is in [...] for coordination of care (as documented) and sgqx-dm-zjyq counseling of patient and/or family. Dictated By: Mohsen Steiner MD DD/ Signed By: <Electronically signed by Mohsen Steiner MD> 02/03/17 0903 [facility] Work Phone: [phone] Progress note Author Mohsen Steiner [facility] January 12, 2017 10:59pm Note Date/Time January 12, 2017 1 0:57pm [facility] [place] [address] Hem/Onc Follow Up Note - OP Signed Patient: Myla Pollack MR#: [id number] : 1950 Acct:[id number] Age/Sex: 66 / F Type: REG RCR Copies to: Pinky Og DO~ Subjective Date/Time of Service: Date of Service: 01/12/2017 Time of Service: 22:52 Chief Complaint: Patient is here to follow up PET scan results. HPI: Patient returns to the clinic for a pre-scheduled follow-up visit that reports that 1. She was diagnosed with vasculitis at [facility] 2. She was found to have [...] % (Auto) 27.4 % (.) 01/03/17 17:45 Grant % (Auto) 12.7 % (.) 01/03/17 17:45 Eos % (Auto) 1.5 % (.) 01/03/17 17:45 Baso % (Auto) 0.6 % (.) 01/03/17 17:45 Neut # (Auto) 4.4 x10E3/uL (1.8-7.7) 01/03/17 17:45 Lymph # (Auto) 2.1 x10E3/uL (1.00-4.8) 01/03/17 17:45 Grant # (Auto) 1.0 x10E3/uL (0.0-0.8) H 01/03/17 [...] N0, M0. 2. Tumor was ER negative, MD weak, and HER-2 nonamplified. 3. She underwent mastectomy at [place] in 02/2015. Completed dose dense AC X4 [...] We will be referring her to the [facility] for evaluation and management. (4) [...] for coordination of care (as documented) and fvzj-qb-mjov counseling of patient and/or family. Dictated By: Mohsen Steiner MD DD/ 51 Signed By: <Electronically signed by Mohsen Steiner MD> 01/12/17 2259 [facility] Work Phone: 1([phone] 121-449210-04-2017 Progress note Author Mohsen Steiner [facility] January 05, 2017 4:45pm Note Date/Time January 05, 2017 4: 38pm [facility] [place] [address] Hem/Onc Follow Up Note - OP Signed Patient: Myla Pollack MR#: [id number] : 1950 Acct:[id number] Age/Sex: 66 / F Type: REG RCR cc: Pinky Og DO~ Subjective Date/Time of Service: Date of Service: 01/05/2017 Time of Service: 16:37 Chief Complaint: Patient is here for follow up to CT scan patient has been having ongoing vascular problems. HPI: Patient returns to the clinic for a pre-scheduled follow-up visit that reports that 1. She was diagnosed with vasculitis at [facility] 2. She was found to have [...] % (Auto) 27.4 % (.) 01/03/17 17:45 Grant % (Auto) 12.7 % (.) 01/03/17 17:45 Eos % (Auto) 1.5 % (.) 01/03/17 17:45 Baso % (Auto) 0.6 % (.) 01/03/17 17:45 Neut # (Auto) 4.4 x10E3/uL (1.8-7.7) 01/03/17 17:45 Lymph # (Auto) 2.1 x10E3/uL (1.00-4.8) 01/03/17 17:45 Grant # (Auto) 1.0 x10E3/uL (0.0-0.8) H 01/03/17 [...] N0, M0. 2. Tumor was ER negative, MD weak, and HER-2 nonamplified. 3. She underwent mastectomy at [place] in 02/2015. Completed dose dense AC X4 [...] that in November, she was admitted at [facility] and was diagnosed with vasculitis affecting [...] for coordination of care (as documented) and cpbp-aq-wwaw counseling of patient and/or family. Dictated By: Mohsen Steiner MD DD/ Signed By: <Electronically signed by Mohsen Steiner MD> 01/05/17 1645 [facility] Work Phone: [phone]) 749-828210-03-2017 Progress note Author Jefferson Rice [facility] January 04, 2017 11:22am Note Date/Time January 04, 2017 11 :22am [facility] [place] [address] Hem/Onc Follow Up Note - OP Signed Patient: Myla Pollack MR#: [id number] : 1950 Acct:[id number] Age/Sex: 66 / F Type: REG RCR [...] for coordination of care (as documented) and iprt-ga-ebon counseling of patient and/or family. Dictated By: Jefferson Rice MD DD/ 1120 Signed By: <Electronically signed by Jefferson Rice MD> 01/04/17 1122 [facility] Work Phone: Evaluation note* Diagnosis Onset Date Resolution Status Breast cancer, right chronic Encounter for monitoring anastrozole therapy chronic Osteoarthritis of knees, bilateral chronic Pulmonary embolism chronic Screening for osteoporosis c hronic Cutaneous leukocytoclastic angiitis resolved History of hypercalcemia res olved Hypercalcemia resolved Lung nodules resolved Neuropathy resolved Vasculitis resolved [facility] Work Phone: Evaluation note* Diagnosis Primary open-angle glaucoma, bilateral, mild stage- Primary [facility] Primary open-angle glaucoma, bilateral, mild stage- Primary [facility] Diagnosis Primary open-angle glaucoma, bilateral, mild stage- Primary [facility] Diagnosis Primary open-angle glaucoma, bilateral, mild stage- Primary [facility] Diagnosis Onset Date Resolution Status Breast cancer, right chronic Screening for osteoporosis c hronic Neuropathy resolved Breast cancer, right chronic Encounter for monitoring anastrozole therapy chronic Osteoarthritis of knees, bilateral chronic Pulmonary embolism chronic Screening for osteoporosis c hronic Cutaneous leukocytoclastic angiitis resolved History of hypercalcemia res olved Hypercalcemia resolved Lung nodules resolved Neuropathy resolved Vasculitis resolved [facility] Work Phone: Evaluation note* Diagnosis Acute right hip pain- Primary Trochanteric bursitis of right hip Gluteal tendonitis of right buttock documented in this encounter [facility]* Diagnosis Acute pain of right shoulder- Primary Neck pain Cervicalgia documented in this encounter [facility] HealthcareEvaluation note* Diagnosis Primary open-angle glaucoma, bilateral, mild stage- Primary PCO (posterior capsular opacification), bilateral After-cataract, unspecified Dry eye syndrome of bilateral lacrimal glands Tear film insufficiency, unspecified [facility] Diagnosis Lymphedema- Primary Other noninfectious lymphedema [facility] Diagnosis Lymphedema- Primary Other noninfectious lymphedema Lymphedema- Primary Other noninfectious lymphedema [facility]* Diagnosis Nasal polyp- Primary Unspecified nasal polyp Vasomotor rhinitis Allergic rhinitis, cause unspecified documented in this encounter [facility] HealthcareEvaluation note* Diagnosis History of total knee arthroplasty, left- Primary documented in this encounter [facility] HealthcareEvaluation note* Diagnosis Primary open-angle glaucoma, bilateral, mild stage- Primary documented in this encounter [facility]ructionsNot on filedocumented in this [facility] SystemInstructionsNot on filedocumented in this encounterProCorey [facility] SystemProgress note Author Lynsey Land [facility] January 30, 2024 11:05am Note Date/Time January 30, 2024 1 0:16am [facility] [place] [address] Cancer Center Note Signed Patient: Myla Pollack MR#: [id number] : 1950 Acct:[id number] Age/Sex: 73 / F Type: DEP AMB Date of Service: 01/30/24 Copies to: Kenyetta Reynolds MD~ Assessment & Plan A/P (1) Breast cancer, right: Plan: Estrogen receptor status: negative Patient sex: female 1. 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 ER negative, MD weak, and HER-2 nonamplified. 2. She underwent mastectomy at [place] in 02/2015. Completed dose dense AC X4 and Taxol X 12 in August 2015. 3. 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 Anastrozole was resumed in 03/2017 4. Saw mig welder in [place] for persistent leg pain and swelling (he [...] inflammatory. She was referred to pulmonary at [place]. --Followup PET/CT 08/2017 showed resolution of prior [...] changes on self breast exam. Screening left iezkoqkua16/19/2023 without recurrence. No systemic symptoms of recurrence, [...] of anastrozole, we will now follow annually ([facility] but patient wishes to return to oncology). We will arrange her annual follow-ups after her annual mammograms in January of each year. She also requested refill of breast prosthesis and mastectomy bra. No breast exam due to telephone visit. No skin changes or breast tenderness. No recent f/u by mig welder in [place]--was reported to have vasculitis 4 years ago--now resolved but still has some mild erythema and swelling of left greater than right leg without pain. Receives Anastrozole due to weak MD expression--no significant myalgias/arthralgias or hot flashes. No [...] pT1c, N0, M0. Tumor was ER negative, MD weak, and HER-2 nonamplified. She underwent right mastectomy at [place] in 02/2015. Completed dose dense AC X4 [...] years of adjuvant therapy. 3. Evaluated by mig welder in [place] (does not believe she had vasculitis)--no recent [...] inflammatory. She was referred to pulmonary at [place]. Ground glass opacities resolved on PET/CT 08/2017. [...] of Therapies: 1. Right breast mastectomy at [facility] (Dr. Rodriguez) in 02/2015. 2. Completed [...] hx: breast cancer and go over mamogram. [facility] Social History Social History (Updated 01/30/24 @ 10:21 by Lora Huffman [facility]) Smoking status: Never smoker Within [...] <Electronically signed by CHIDI Land> 01/30/24 1105 [facility] Work Phone: Summary Purpose Family History No [...] the event of a Fluress shortage, administer Echola-Fluor 1 drop into both eyes as directed for applanation tonometry Given 01/17/2023 8:30 AM EDT 1 Drop Reason for Referral Specialty Diagnoses / Procedures Referred By Contac t Referred To Contact Orthopaedic Surgery Diagnoses Trochanteric bursitis of right hip Gluteal tendonitis of right buttock Procedures L Inj/Asp: R greater trochanteric bursa Dino George, PA [address] [facility] [address] [place] [address] Referral ID Status Reason Start Date Expiration Date V isits Requested Visits Authorized [id number] Authorized 12/19/2023 06/16/2024 1 1 Additional Source Comments INFORMATION SOURCE (unrecogn ized section and content) DATE CREATED AUTHOR 09/27/2017 [facility] DATE CREATED AUTHOR AUTHOR'S ORGANIZ ATION 01/18/2018 [facility] DATE CREATED AUTHOR AUTHOR'S ORGANIZ ATION 08/05/2018 [facility] Center DATE CREATED AUTHOR AUTHOR'S ORGANIZ ATION 09/10/2022 [facility] DATE CREATED AUTHOR AUTHOR'S ORGANIZ ATION 01/31/2024 [facility] DATE CREATED AUTHOR AUTHOR'S ORGANIZ ATION 07/13/2024 [facility] DATE CREATED AUTHOR AUTHOR'S ORGANIZ ATION 07/25/2024 [facility] EPIC DATE CREATED AUTHOR AUTHOR'S ORGANIZ ATION 07/31/2024 [facility] DATE CREATED AUTHOR AUTHOR'S ORGANIZ ATION 10/23/2024 [facility] Care Teams (unrecognized sec tion and [...] Kenyetta Reynolds MD Primary Care Provider Active Admissions Coordinator Relationship Specialty Start Date End Date Kenyetta Reynolds MD [address] [place] [address] PCP - General Family Medicine 03/14/19 Admissions Coordinator Relationship Specialty Start Date End Date Kenyetta Reynolds MD PCP - General Family Medicine 03/14/19 Admissions Coordinator Relationship Specialty Start Date End Date Kenyetta Reynolds MD PCP - General Family Medicine 03/14/19 Admissions Coordinator Relationship Specialty Start Date End Date Kenyetta Reynolds MD [address] [facility] [place] [address] PCP - General Family Medicine 09/15/22 Admissions Coordinator Relationship Specialty Start Date End Date Kenyetta Reynolds MD PCP - General Family Medicine 03/14/19 Admissions Coordinator Relationship Specialty Start Date End Date Kenyetta Reynolds MD PCP - General Family Medicine 03/14/19 Admissions Coordinator Relationship Specialty Start Date End Date Kenyetta Reynolds MD PCP - General Family Medicine 03/14/19 Admissions Coordinator Relationship Specialty Start Date End Date Kenyetta Reynolds MD [address] [facility] [place] [address] PCP - General Family Medicine 09/15/22 Admissions Coordinator Relationship Specialty Start Date End Date Kenyetta Reynolds MD [address] [facility] [place] [address] PCP - General Family Medicine 09/15/22 Admissions Coordinator Relationship Specialty Start Date End Date Kenyetta Reynolds MD [address] [facility] [place] [address] PCP - General Family Medicine 09/15/22 Admissions Coordinator Relationship Specialty Start Date End Date Kenyetta Reynolds MD [address] [facility] [place] [address] PCP - General Family Medicine 09/15/22 Admissions Coordinator Relationship Specialty Start Date End Date Kenyetta Reynolds MD [address] [place] [facility] [address] PCP - General Family Medicine 12/20/19 Admissions Coordinator Relationship Specialty Start Date End Date Kenyetta Reynolds MD PCP - General Family Medicine 12/20/19 Admissions Coordinator Relationship Specialty Start Date End Date Kenyetta Reynolds MD [address] [facility] [place] [address] PCP - General Family Medicine 09/15/22 Admissions Coordinator Relationship Specialty Start Date End Date Kenyetta Reynolds MD [address] [facility] [place] [address] PCP - General Family Medicine 09/15/22 Admissions Coordinator Relationship Specialty Start Date End Date Kenyetta Reynolds MD [address] [facility] [place] [address] PCP - General Family Medicine 09/15/22 Admissions Coordinator Relationship Specialty Start Date End Date [...] this informatio n is protected by the [facility] of Alcohol and Drug Abuse Patient Records regulations: The Federal rules restrict any use of the information to criminally investigate or prosecute any alcohol or drug abuse patient.[facility] System[facility] the event this information is protected by the Federal Confidentiality of Alcohol and Drug Abuse Patient Records regulations: The Federal rules restrict any use of the information to criminally investigate or prosecute any alcohol or drug abuse patient.[facility] SystemIn the event this information is protected by the Federal Confidentiality of Alcohol and Drug Abuse Patient Records regulations: The Federal rules restrict any use of the information to criminally investigate or prosecute any alcohol or drug abuse patient.[facility] SystemIn the event this information is protected by the Federal Confidentiality of Alcohol and Drug Abuse Patient Records regulations: The Federal rules restrict any use of the information to criminally investigate or prosecute any alcohol or drug abuse patient.[facility] SystemIn the event this information is protected by the Federal Confidentiality of Alcohol and Drug Abuse Patient Records regulations: The Federal rules restrict any use of the information to criminally investigate or prosecute any alcohol or drug abuse patient.[facility] SystemIn the event this information is protected by the Federal Confidentiality of Alcohol and Drug Abuse Patient Records regulations: The Federal rules restrict any use of the information to criminally investigate or prosecute any alcohol or drug abuse patient.[facility] SystemIn the event this information is protected by the Federal Confidentiality of Alcohol and Drug Abuse Patient Records regulations: The Federal rules restrict any use of the information to criminally investigate or prosecute any alcohol or drug abuse patient.[facility] SystemIn the event this information is protected by the Federal Confidentiality of Alcohol and Drug Abuse Patient Records regulations: The Federal rules restrict any use of the information to criminally investigate or prosecute any alcohol or drug abuse patient.[facility] Reason for Visit (unrecogniz ed section and [...] check Reason Onset Date Comments dentist 07/25/2024 Reason Comments Glaucoma suspect right eye>left eye FOR RECORDS PERTAINING TO PATIENTS WHO ARE [...] BE BASED ON THE PRIMARY CLINICAL RECORDS. [employer] provides no warranty or guarantee of the accuracy or completeness of information in this document.
--- NOTE | 2024-11-21 11:31 | PM.CN ---
Consult Note: HPI Data of Consult Patient: known to practice within the last 3 years Requesting Physician: Magali Castle NP Primary Care Provider: Guille Reynolds MD Consult Narrative Reason for consult: neck pain Narrative: Myla jj pleasant 74 year old female presents for evaluation of chronic neck pain, since last visit pain 0/10 increasing minimally. pt noting significant relief as a result of right and left C2/3 C3/4 facet RFA. utilizing pregabalin 75mg BID and baclofen 5mg am prn pain/spasms with significant benefit. no longer needing compound cream. NIKOLAY 0% cc:: CC: Magali Castle NP Review of Systems ROS Musculoskeletal Denies: neck pain, extremity pain or joint pain PFSH [facility] Medical History (Updated 08/22/24 @ 11:27 by Magali Castle NP) Hammertoe of left foot ?M20.42 - Other hammer toe(s) (acquired), left foot (ICD-10) Other osteonecrosis, left foot ?M87.875 - Other osteonecrosis, left foot (ICD-10) Hallux rigidus, left foot ?M20.22 - Hallux rigidus, left foot (ICD-10) Nasal polyp ?J33.9 - Nasal polyp, unspecified (ICD-10) Neuropathy ?G62.9 - Polyneuropathy, unspecified (ICD-10) Osteoarthritis ?M19.90 - Unspecified osteoarthritis, unspecified site (ICD-10) Arthritis ?M19.90 - Unspecified osteoarthritis, unspecified site (ICD-10) Pulmonary embolism ?I26.99 - Other pulmonary embolism without acute cor pulmonale (ICD-10) Chronic obstructive pulmonary disease ?J44.9 - Chronic obstructive pulmonary disease, unspecified (ICD-10) Asthma ?J45.909 - Unspecified asthma, uncomplicated (ICD-10) Migraine ?G43.909 - Migraine, unspecified, not intractable, without status migrainosus (ICD-10) Cataract ?H26.9 - Unspecified cataract (ICD-10) Varicose vein of leg ?I83.90 - Asymptomatic varicose veins of unspecified lower extremity (ICD-10) Painful orthopaedic hardware ?T84.84XA - Pain due to internal orthopedic prosthetic devices, implants and grafts, initial encounter (ICD-10) Hallux rigidus ?M20.20 - Hallux rigidus, unspecified foot (ICD-10) Hammertoe ?M20.40 - Other hammer toe(s) (acquired), unspecified foot (ICD-10) Hallux valgus ?M20.10 - Hallux valgus (acquired), unspecified foot (ICD-10) Breast cancer ?C50.919 - Malignant neoplasm of unspecified site of unspecified female breast (ICD-10) Surgical History (Updated 04/19/24 @ 14:47 by Elisabeth Walters) History of esophagogastroduodenoscopy (EGD) ?Z98.890 - Other specified postprocedural states (ICD-10) History of cataract extraction ?Z98.49 - Cataract extraction status, unspecified eye (ICD-10) History of colonoscopy ?Z98.890 - Other specified postprocedural states (ICD-10) H/O mastectomy ?Z90.10 - Acquired absence of unspecified breast and nipple (ICD-10) History of carpal tunnel release ?Z98.890 - Other specified postprocedural states (ICD-10) History of foot surgery ?Z98.890 - Other specified postprocedural states (ICD-10) History of foot surgery ?Z98.890 - Other specified postprocedural states (ICD-10) History of arthroplasty of knee ?Z96.659 - Presence of unspecified artificial knee joint (ICD-10) Family History Mother Pancreatic cancer Other Family history of diabetes mellitus Family history of heart disease Family history of hypertension Family history of myocardial infarction Family history of pancreatic cancer Social History Within the past year, how often did you have a drink containing alcohol: never Score interpretation: A score less than 3 is consistent with normal alcohol consumption. 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 [employer] Highest level of school completed/degree received: high school graduate Meds Home Medications and Allergies Home Medications ?Medication ?Instructions ?Recorded ?Confirmed ?Type atorvastatin 20 mg tablet 20 mg PO QDAY 10/13/22 07/23/24 History cyclosporine 0.05 % eye drops in a 1 drp ophthalmic (eye) Q12H 10/13/22 07/23/24 History dropperette (Restasis) fluticasone propionate 50 2 spray intranasal Q12H 10/13/22 07/23/24 History mcg/actuation nasal spray,suspension montelukast 10 mg tablet 10 mg PO .QHS 10/13/22 07/23/24 History pregabalin 75 mg capsule 75 mg PO Q12H 10/13/22 07/23/24 History warfarin 5 mg tablet (Jantoven) 7.5 mg PO QDAY 10/13/22 07/23/24 History fluticasone furoate 100 1 inh inhalation DAILY 04/19/24 07/23/24 History mcg-vilanterol 25 mcg/dose inhalation powder (Breo Ellipta) sumatriptan succinate 100 mg tablet 100 mg PO 04/19/24 History albuterol sulfate 90 mcg/actuation 2 inh inhalation Q6H PRN shortness 07/23/24 07/23/24 History breath activated powder inhaler of breath or wheezing diazepam 10 mg tablet mg 07/23/24 History Allergies Allergy/AdvReac Type Severity Reaction Status Date / Time Sulfa (Sulfonamide Allergy Unknown Verified 07/23/24 08:53 Antibiotics) Exam Constitutional Documenting provider has reviewed patient's vital signs: yes Common normals: no apparent distress, oriented x3, healthy appearing, alert and well nourished General appearance: cooperative [facility] Common normals: normocephalic, hearing grossly normal bilaterally and moist oral mucous membranes Head and scalp: normocephalic Eye Common normals: PERRL Pupil: PERRL Neck & C-Spine Common normals: full ROM General: normal visual inspection Cervical spine: cervical ROM normal; no pain with cervical ROM, no cervical spine tenderness and no paracervical muscle tenderness Other: negative facet loading strength 5/5 in BUE sensation intact BUE Chest Common normals: inspection of chest normal Respiratory Common normals: normal respiratory effort, no retractions and no use of accessory muscles Neuro Common normals: oriented x3 Sensorium/orientation: alert Psych Common normals: mental status grossly normal, thought process normal, cooperative, affect normal, speech normal and activity/motor behavior normal Speech: normal speech Thought process: normal thought process Results Additional Findings Additional findings: If on a controlled substance or opioids, I have checked an [place] report on this patient and there are no aberrancies noted in the prescribing history.??If on a controlled substance or opioid a drug screen was completed and reviewed within the last year, and if there has not been a drug screen completed we ordered one today to monitor higher risk, state monitored pain medication use. As part of providing excellent, safe, comprehensive care, the following was completed at our patient's visit: 1. A medication reconciliation and review to ensure accurate knowledge of current/active medications, including asking our patients to inform us about any [id number] medications or herbal remedies/nutritional supplements/alternative remedies. 2. A review to specifically ensure our patients have had annual screening for screening for depression, screening for tobacco use, and screening for unhealthy alcohol use. For concerning screenings had a discussion with the patient, provided patient education, and recommended follow-up with primary care provider when appropriate. If patient noted with a risk of falling, they received education on strength, gait, and balance training to prevent future risk of falling. Portions of this note may have been carried over from the previous visit and updated as appropriate. Please note this office utilizes paper charting in addition to the electronic medical record. A list of current medications, vitals, and PMH is available there as the clinical staff outside of myself do not have access to [place] charting during the clinic day operations. As part of providing quality comprehensive care the current medications, vitals, and PMH were reviewed in the paper chart. Assessment and Plan Assessment and Plan (1) Cervical spondylosis: (2) Myofascial pain: Plan continue baclofen 5-10mg daily prn pain/spasms can utilizing transdermal cream PRN continue pregabalin 75mg bid continue HEP as tolerated f/u 6 months, sooner if needed
== END 2024-11-21 10:55 | disposition home or self-care (01) ==
LOC: PM 10:56
PROVIDERS: PCP Family Medicine; Visit Provider Nurse Practitioner
DX: M47.812 Spondylosis without myelopathy or radiculopathy, cervical region (principal); M79.18 Myalgia, other site
CPT/HCPCS: G0463

== ENCOUNTER 2024-12-03 01:57 | Outpatient (RCR) | payer MEDICARE, OTHER, SELFPAY | END 2025-01-01 15:25 | disposition home or self-care (01) | LOC: MM 01:57 | PROVIDERS: PCP Family Medicine; Visit Provider Internal Medicine | DX: Z51.81 Encounter for therapeutic drug level monitoring (principal); Z79.01 Long term (current) use of anticoagulants; I26.99 Other pulmonary embolism without acute cor pulmonale | CPT/HCPCS: 85610; G0463 ==

== ENCOUNTER 2025-01-02 04:34 | Outpatient (RCR) | payer MEDICARE, OTHER, SELFPAY | END 2025-02-01 23:59 | disposition home or self-care (01) | LOC: MM 04:34 | PROVIDERS: PCP Family Medicine; Visit Provider Internal Medicine | DX: Z51.81 Encounter for therapeutic drug level monitoring (principal); Z79.01 Long term (current) use of anticoagulants; I26.99 Other pulmonary embolism without acute cor pulmonale | CPT/HCPCS: 85610; G0463 ==

== ENCOUNTER 2025-02-02 | Outpatient (RCR) | payer MEDICARE, OTHER, SELFPAY | END 2025-03-03 23:59 | disposition home or self-care (01) | LOC: MM | PROVIDERS: PCP Family Medicine; Visit Provider Internal Medicine | DX: Z51.81 Encounter for therapeutic drug level monitoring (principal); Z79.01 Long term (current) use of anticoagulants; I26.99 Other pulmonary embolism without acute cor pulmonale | CPT/HCPCS: 85610; G0463 ==

== ENCOUNTER 2025-03-04 11:26 | Outpatient (RCR) | payer MEDICARE, OTHER, SELFPAY | END 2025-04-03 12:50 | disposition home or self-care (01) | LOC: MM 11:26 | PROVIDERS: PCP Family Medicine; Visit Provider Internal Medicine | DX: Z51.81 Encounter for therapeutic drug level monitoring (principal); Z79.01 Long term (current) use of anticoagulants; I26.99 Other pulmonary embolism without acute cor pulmonale | CPT/HCPCS: 85610; G0463 ==